=== PATIENT | male | born 1965 | race Caucasian/White ===

== ENCOUNTER → 2017-05-22 09:50 | Outpatient (CLI) | payer OTHER, SELFPAY ==
--- NOTE | 2017-05-22 09:53 | RAD_ITS ---
PROCEDURE: Fluoroscopic guided right shoulder injection. DATE: May 22, 2017. INDICATION: Male, 51 years old. Chronic shoulder pain. PHYSICIAN: Daniel Torres M.D. MEDICATIONS: 12 mg of betamethasone and 3 cc of 1% lidocaine. 2% Lidocaine administered subcutaneously for local anesthesia. ACCESS SITE: Right shoulder. NEEDLE: 22-gauge spinal needle. FLUOROSCOPY TIME (if supplied): (49 seconds) minutes/seconds FINDINGS: The risks, benefits, and alternatives to the procedure were explained to the patient. The specific risks of bleeding, infection, and neurovascular injury were detailed and accepted. Witnessed informed consent was obtained. A 22-gauge spinal needle was positioned under radiographic fluoroscopic localization. Approximately 2 cc of Isovue-300 instilled for localization purposes. Medication was then injected. The patient tolerated the procedure well without any immediate complications. The patient was placed supine with head elevated and returned to the floor in stable condition. RAD/Inj/Asp [place] Jt Should/Hip/Knee IMPRESSION: 1. Successful fluoroscopic guided right shoulder injection. Electronically Signed: Daniel Torres MD at 11:15 EST Tel [phone], Service support ,
--- NOTE | 2017-05-22 10:07 | RAD_ITS ---
PROCEDURE: Fluoroscopic guided left shoulder Injection DATE: May 22, 2017. INDICATION: Male, 51 years old. Chronic shoulder pain. Prior rotator cuff surgery. PHYSICIAN: Daniel Torres M.D. MEDICATIONS: 12 mg of betamethasone and 3 cc of 1% lidocaine. 2% Lidocaine administered subcutaneously for local anesthesia. ACCESS SITE: Left shoulder. NEEDLE: 22-gauge spinal needle. FLUOROSCOPY TIME (if supplied): (52 seconds) minutes/seconds FINDINGS: The risks, benefits, and alternatives to the procedure were explained to the patient. The specific risks of bleeding, infection, and neurovascular injury were detailed and accepted. Witnessed informed consent was obtained. A 22-gauge spinal needle was positioned under radiographic fluoroscopic localization. Approximately 2 cc of Isovue-300 instilled for localization purposes. Medication was then injected. The patient tolerated the procedure well without any immediate complications. The patient was placed supine with head elevated and returned to the floor in stable condition. RAD/Inj/Asp Edenilson Jt Should/Hip/Knee IMPRESSION: 1. Successful fluoroscopic guided left shoulder injection. Electronically Signed: Daniel Torres MD at 11:17 EST Tel [phone], Service support ,
== END ==
PROVIDERS: Family Provider Family Medicine; PCP Family Medicine; Visit Provider Specialist
DX: M19.011 Primary osteoarthritis, right shoulder (principal); M19.012 Primary osteoarthritis, left shoulder
CPT/HCPCS: 20610; 77002; Q9967; J0702

== ENCOUNTER → 2017-06-26 14:03 | Outpatient (CLI) | payer OTHER, SELFPAY ==
[2017-06-26 15:22] LABS: Hematocrit 43.4 % (40-54); Hemoglobin 13.9 g/dl (13.0-16.5); Mean Corpuscular Hgb 28.7 pg (27.0-32.0); Mean Corpuscular Volume 89.7 fL (80-94); Mean Platelet Vol. 10.6 fl (6.2-12.0); Platelet Count 232 K/mm3 (150-450); RBC Distribution Width CV 14.3 % (11.6-14.6); Red Blood Count 4.84 M/mm3 (4.6-6.2); White Blood Count 6.4 K/mm3 (4.4-11.0)
[2017-06-26 15:28] LABS: Scan Indicated on CBC? Y/N NO
[2017-06-26 15:52] LABS: Anion Gap 6 (5-15); BUN 18 mg/dL (7-18); BUN/Creat Ratio 17.6 RATIO (10-20); Calcium,Total 8.9 mg/dL (8.5-10.1); Chloride 102 mmol/L (98-107); Creatinine, Serum 1.02 mg/dL (0.70-1.30); EST Glomerular Filtration Rate 82 mL/min (>60); Est Glom Filt Rate - Afr Amer 99 mL/min (>60); Glucose 92 mg/dL (74-106); Potassium 4.2 mmol/L (3.5-5.1); Sodium Level 139 mmol/L (136-145)
== END ==
PROVIDERS: Family Provider Family Medicine; PCP Family Medicine; Visit Provider Orthopaedic Surgery
DX: Z01.818 Encounter for other preprocedural examination (principal)
CPT/HCPCS: 36415; 80048; 85027

== ENCOUNTER → 2017-08-14 12:42 | Outpatient (CLI) | payer OTHER, SELFPAY ==
[2017-08-14 14:17] LABS: Absolute Lymphocyte Count 2.38 X10^3/ul (0.83-4.51); Absolute Neutrophil Count 4.1 X10^3/uL (2.0-7.7); Basophil# 0.04 X10^3/uL; Basophil% 0.6 % (0-1); Eosinophil# 0.12 X10^3/uL; Eosinophils% 1.7 % (0-5); Hematocrit 45.1 % (40-54); Hemoglobin 14.7 g/dl (13.0-16.5); Lymphocyte # 2.38 X10^3/ul (4.0); Lymphocyte % 33.9 % (19-41); Mean Corp Hgb Conc 32.6 g/gl (32-36); Mean Corpuscular Hgb 29.6 pg (27.0-32.0); Mean Corpuscular Volume 90.7 fL (80-94); Mean Platelet Vol. 10.8 fl (6.2-12.0); Monocyte# 0.33 X10^3/uL; Monocyte% 4.7 % (0-10); Neutrophil # 4.12 X10^3/uL (2.7-7.7); Neutrophil % 58.7 % (47-70); Platelet Count 223 K/mm3 (150-450); RBC Distribution Width CV 13.7 % (11.6-14.6); RBC Distribution Width SD 45.3 fl (35.1-43.9); Red Blood Count 4.97 M/mm3 (4.6-6.2)
[2017-08-14 14:26] LABS: POSITIVE COUNT NO; POSITIVE DIFFERENTIAL NO; POSITIVE MORPHOLOGY NO
[2017-08-14 14:59] LABS: Valproic Acid (Depakene) Level 41 ug/mL (50-100)
[2017-08-14 15:00] LABS: ALB/GLOB Ratio 1.3 RATIO (0.9-2.4); AST(SGOT) 24 U/L (15-37); Alanine Aminotransfer ALT/SGPT 37 U/L (16-61); Albumin, Serum 4.1 g/dL (3.2-5.0); Alkaline Phosphatase 75 U/L (45-117); Anion Gap 11 (5-15); BUN 18 mg/dL (7-18); BUN/Creat Ratio 18.3 RATIO (10-20); Calcium,Total 8.7 mg/dL (8.5-10.1); Chloride 101 mmol/L (98-107); Creatinine, Serum 0.99 mg/dL (0.70-1.30); EST Glomerular Filtration Rate 85 mL/min (>60); Est Glom Filt Rate - Afr Amer 103 mL/min (>60); Globulin 3.1 g/dL (2.2-4.2); Glucose 116 mg/dL (74-106); Potassium 3.7 mmol/L (3.5-5.1); Protein, Total 7.2 g/dL (6.4-8.2); Sodium Level 140 mmol/L (136-145)
== END ==
PROVIDERS: Family Provider Family Medicine; PCP Family Medicine; Visit Provider Psychiatry & Neurology Psychiatry
DX: Z79.899 Other long term (current) drug therapy (principal)
CPT/HCPCS: 36415; 80053; 80164; 85025

== ENCOUNTER → 2017-10-14 11:24 | Outpatient (CLI) | payer OTHER, SELFPAY ==
[2017-10-14 11:52] LABS: Basophil# 0.03 X10^3/uL; Basophil% 0.5 % (0-1); Eosinophil# 0.16 X10^3/uL; Eosinophils% 2.6 % (0-5); Hematocrit 46.1 % (40-54); Hemoglobin 14.7 g/dl (13.0-16.5); Lymphocyte % 38.8 % (19-41); Mean Corp Hgb Conc 31.9 g/gl (32-36); Mean Corpuscular Volume 90.9 fL (80-94); Mean Platelet Vol. 10.5 fl (6.2-12.0); Monocyte# 0.55 X10^3/uL; Monocyte% 8.9 % (0-10); Neutrophil # 3.03 X10^3/uL (2.7-7.7); Neutrophil % 48.9 % (47-70); POSITIVE COUNT NO; POSITIVE DIFFERENTIAL NO; POSITIVE MORPHOLOGY NO; Platelet Count 224 K/mm3 (150-450); RBC Distribution Width CV 13.6 % (11.6-14.6); RBC Distribution Width SD 44.9 fl (35.1-43.9); Red Blood Count 5.07 M/mm3 (4.6-6.2); White Blood Count 6.2 K/mm3 (4.4-11.0)
[2017-10-14 12:21] LABS: Valproic Acid (Depakene) Level 72 ug/mL (50-100)
[2017-10-14 12:25] LABS: ALB/GLOB Ratio 1.4 RATIO (0.9-2.4); AST(SGOT) 33 U/L (15-37); Alanine Aminotransfer ALT/SGPT 40 U/L (16-61); Albumin, Serum 4.2 g/dL (3.2-5.0); Alkaline Phosphatase 63 U/L (45-117); Anion Gap 9 (5-15); BUN 19 mg/dL (7-18); BUN/Creat Ratio 16.7 RATIO (10-20); Calcium,Total 8.8 mg/dL (8.5-10.1); Chloride 103 mmol/L (98-107); Creatinine, Serum 1.14 mg/dL (0.70-1.30); EST Glomerular Filtration Rate 72 mL/min (>60); Est Glom Filt Rate - Afr Amer 87 mL/min (>60); Globulin 3.1 g/dL (2.2-4.2); Glucose 104 mg/dL (74-106); Potassium 4.5 mmol/L (3.5-5.1); Protein, Total 7.3 g/dL (6.4-8.2); Sodium Level 142 mmol/L (136-145)
== END ==
PROVIDERS: Family Provider Family Medicine; PCP Family Medicine; Visit Provider Psychiatry & Neurology Psychiatry
DX: Z79.899 Other long term (current) drug therapy (principal)
CPT/HCPCS: 36415; 80053; 80164; 85025

== ENCOUNTER → 2017-12-21 12:29 | Outpatient (CLI) | payer OTHER, SELFPAY ==
[2017-12-21 12:53] LABS: Absolute Lymphocyte Count 2.02 X10^3/ul (0.83-4.51); Absolute Neutrophil Count 2.1 X10^3/uL (2.0-7.7); Basophil# 0.04 X10^3/uL; Basophil% 0.8 % (0-1); Eosinophil# 0.07 X10^3/uL; Eosinophils% 1.5 % (0-5); Hematocrit 44.7 % (40-54); Hemoglobin 14.6 g/dl (13.0-16.5); Lymphocyte # 2.02 X10^3/ul (4.0); Lymphocyte % 42.8 % (19-41); Mean Corp Hgb Conc 32.7 g/gl (32-36); Mean Corpuscular Hgb 29.8 pg (27.0-32.0); Mean Corpuscular Volume 91.2 fL (80-94); Mean Platelet Vol. 10.6 fl (6.2-12.0); Monocyte# 0.46 X10^3/uL; Monocyte% 9.7 % (0-10); Neutrophil # 2.12 X10^3/uL (2.7-7.7); Platelet Count 202 K/mm3 (150-450); RBC Distribution Width CV 13.6 % (11.6-14.6); RBC Distribution Width SD 45.2 fl (35.1-43.9); White Blood Count 4.7 K/mm3 (4.4-11.0)
[2017-12-21 12:54] LABS: POSITIVE COUNT NO; POSITIVE DIFFERENTIAL NO; POSITIVE MORPHOLOGY NO
[2017-12-21 13:33] LABS: ALB/GLOB Ratio 1.4 RATIO (0.9-2.4); AST(SGOT) 36 U/L (15-37); Alanine Aminotransfer ALT/SGPT 44 U/L (16-61); Albumin, Serum 4.2 g/dL (3.2-5.0); Alkaline Phosphatase 51 U/L (45-117); Anion Gap 7 (5-15); BUN 19 mg/dL (7-18); BUN/Creat Ratio 16.8 RATIO (10-20); Chloride 105 mmol/L (98-107); Creatinine, Serum 1.13 mg/dL (0.70-1.30); EST Glomerular Filtration Rate 72 mL/min (>60); Est Glom Filt Rate - Afr Amer 88 mL/min (>60); Glucose 96 mg/dL (74-106); Microalbumin:Creatinine Ratio 43.1 mg/g CRE (<30 mg/g CRE); Potassium 4.7 mmol/L (3.5-5.1); Protein, Total 7.2 g/dL (6.4-8.2); Sodium Level 141 mmol/L (136-145)
== END ==
PROVIDERS: Family Provider Family Medicine; PCP Family Medicine; Visit Provider Family Medicine
DX: M25.50 Pain in unspecified joint (principal); F31.9 Bipolar disorder, unspecified
CPT/HCPCS: 36415; 80053; 82043; 82570; 85025

== ENCOUNTER 2018-02-19 12:00 | Outpatient (RCR) | payer OTHER, SELFPAY ==
--- NOTE | 2018-01-13 15:52 | HP.PTEVAL_ITS ---
Patient's Visit Information MELIZA KELLEY is a 52 year old M referred to Physical Therapy by Jj Eason with a diagnosis of spondylolisthesis, polyarthritis. Date of Evaluation: 01/13/18 Physical Therapist: Jj Portillo DPT, OC - Visit Plan Frequency: 2x /Week Duration: 4-6 Weeks Plan: 2xweek for 4 weeks for water ex for... 1. stretch pecs, LB ROM, HS, quads , ITB and gastroc. 2. Strengthen LE and posture and core. 3. Progress to CV and I water program as tolerated. - Subjective Subjective: [facility] doesn't take his insurance. Sees Jj Eason and in talking about his problems has suggest Aquatic therapy. H/o L JERRELL in January, L RCR in 05/2016. Arthroscopic surgery L shoulder April of this year and it needs replaced. But he is too young. Can't lift L arm over 90 degrees due to pain. Feels popping pain in L shoulder for no apparent reason. L hip hurts with walking longer distances. Walking back to PT room hurts. Has OA in R hip and shoulder also but not bad and not dysfunctional. Sleep: not good, on gabapentin for RLS. Better sleeping on gabapentin. Feels R knee wakes him up at night with pain. On disability due to these injuries. Hobbies: not much of anything for a year due to pain/mental issues, on mental disability. Used to enjoy photography and woodworking. Started riding ex bike. Basic ADLs are OK. - Pain L hip Pain Intensity (Out of 10): 0 Pain Intensity Range: 0, 2 L shoulder Pain Intensity (Out of 10): 4 Pain Intensity Range: 4, 6 - Objective Walks very stiff adn slow with little spinal movment butI. Trasnfers I. Tightness exists in B HS, ITb and quads/hip flexors. Strength in LE is 4/5 without myotomal problems. LB AROM is full in flexion , limited to just past neutral in ext adn centrally painful and mod limtied in B SB. C/S aROM 50 B rot , 40 ext. UE AROM R WNL and strength at 4+/5, ext rotation limited to 35 degrees. L side ext rotation to 20 and 80 elevation limited by stiffness and pain, passive ROM to 90. UE strength 4/5 without excessive pain in neutral position, flex and abd 4- and painful in L shoulder. reflexes 2/3 bi and tri and achilles, and 1/3 B patella. B LE swollen, pt says he ate salty meal yesterday and this is not normal, recommeneded he check with doctor if it continues. - Balance Scores Functional Gait Assessment Score: 27 % Disability: 10.0000 - Goals Goal 1:: I apporp HEP to minimize future pain in water. Goal Time Frame: 4-6 Weeks Goal 2:: Pt feel pain is 50% improved adn 3/10 at worst in shoulder and 0/10 with walking through clinic in L hip Goal Time Frame: 4-6 Weeks Goal 3:: Steps without feeling pain in LE Goal Time Frame: 4-6 Weeks - Rehabilitation Potential Physical Therapy Diagnosis: Poly arhtritis Rehabilitation Potential: Questionable - Anticipated Interventions Patient/Client Instruction: Educate patient on: Condition, Plan of Care For the Purpose of:: To decrease pain Therapeutic Exercise to Include: Strength training, Flexibilty training, In an aquatic setting, Dynamic Lumbar Stabilization For the Purpose of:: To decrease pain, To improve nutrient delivery to tissue, To increase tolerance to activity/condition/position, To improve ability of physical actions for home/community/work/leisure Thank you for the opportunity to evaluate your patient. For Medicare and Medicare HMO plans, please review the plan of care and approve it. It will need to be FAXED BACK to us at [phone] for Medicare purposes. Please let me know if there are questions or concerns regarding this plan of care. Physician Signature: Date:
--- NOTE | 2018-02-19 12:33 | HP.PTDCSUM_ITS ---
HP - PT D/C Summary It has been my pleasure to treat MELIZA KELLEY under orders from Jj Gonzales, for the diagnosis of spondylolisthesis, polyarthritis for a total of 8 visit(s). Discharge Date: 02/19/18 Please see the following information for a summary of their discharge status. - Subjective Subjective: I like the water It helped with swelling in legs. Helped him realize how out of shape he was. Improving. [place] more limber. Still a lot of pain problems. L shoulder still hurts alot. R shoulder and hip get worse. Exercisees have helped those though. Has HEP for home but not doing them regularly. Knees still hurt. Putting on sock can be challenging but not daily. Dr. gonzales without new news. Will find new orthopedic as Dr. Pedraza is not covered. Not joined a pool yet but could continue on own. - Pain L hip Pain Intensity (Out of 10): 7 L shoulder Pain Intensity (Out of 10): 7 Lumbar Spine Pain Intensity (Out of 10): 8 Cerv. Spine Pain Intensity (Out of 10): 7 R knee Pain Intensity (Out of 10): 7 - Overall Improvement % Improvement: 30 - Objective Objective/Function: Not much change in function or ROM/movment from initial eval. - Goals Goal 1:: I apporp HEP to minimize future pain in water. Goal Progress: Goal Met Goal 2:: Pt feel pain is 50% improved adn 3/10 at worst in shoulder and 0/10 with walking through clinic in L hip Goal Progress: Progressing Goal 3:: Steps without feeling pain in LE Goal Progress: Not Progressing - Plan Plan: D/C to pool ex I at [facility] pool. - D/C Information Discharge Comments: pt ready to be in pool I. If there are questions or concerns regarding this patient's physical therapy, please feel free to call me at [phone]. Thank you for the referral of this patient. Sincerely, Jj Portillo, DPT, OC
== END 2018-02-19 19:00 | disposition home or self-care (01) ==
LOC: PT 12:00
PROVIDERS: Family Provider Family Medicine; PCP Family Medicine; Visit Provider Family Medicine
DX: M43.10 Spondylolisthesis, site unspecified (principal); M19.90 Unspecified osteoarthritis, unspecified site
CPT/HCPCS: 97113; 97162; 97164

== ENCOUNTER → 2018-03-04 07:36 | Outpatient (CLI) | payer OTHER, SELFPAY ==
--- NOTE | 2018-03-04 12:52 | PFT ---
INTRODUCTION: The patient is a 52-year-old male that presents for pulmonary function testing secondary to a diagnosis of bronchospasm. Respiratory therapy reports good patient effort. Bronchodilators were used during testing. INTERPRETATION: Forced expiration spirometry mistreats no evidence of a large airways obstructive ventilatory defect. There was no significant response to aerosolized bronchodilators. Spirograms are of good quality and plateau normally. The respiratory flow volume loop appears normal. Body plethysmography was performed and reveals lung volumes to be within normal limits. Diffusing capacity by single breath CO is within normal limits at 96% of predicted. IMPRESSION: Normal pulmonary function studies.
--- NOTE | 2018-03-04 12:54 | PFT ---
INTRODUCTION: The patient is a 65-year-old female that presents for spirometry testing secondary to a diagnosis of shortness of breath. Respiratory therapy reports good patient effort. Bronchodilators were used during testing. INTERPRETATION: Forced expiration spirometry demonstrates no evidence of a large airways obstructive ventilatory defect. There was no clinical response to aerosolized bronchodilators. IMPRESSION: Grossly normal spirometry testing.
== END ==
PROVIDERS: Family Provider Family Medicine; PCP Family Medicine; Referring Provider Family Medicine; Visit Provider Family Medicine
DX: J98.01 Acute bronchospasm (principal)
CPT/HCPCS: 94060; 94726; 94729

== ENCOUNTER → 2018-06-30 15:05 | Outpatient (CLI) | payer OTHER, SELFPAY ==
[2018-04-13 15:19] VITALS: BMI 47.3
[2018-06-30 17:32] LABS: Absolute Lymphocyte Count 2.29 X10^3/ul (0.83-4.51); Absolute Neutrophil Count 2.7 X10^3/uL (2.0-7.7); Basophil# 0.04 X10^3/uL; Basophil% 0.7 % (0-1); Eosinophil# 0.12 X10^3/uL; Eosinophils% 2.1 % (0-5); Hematocrit 46.9 % (40-54); Hemoglobin 14.6 g/dl (13.0-16.5); Lymphocyte # 2.29 X10^3/ul (4.0); Lymphocyte % 40.8 % (19-41); Mean Corp Hgb Conc 31.1 g/gl (32-36); Mean Corpuscular Hgb 29.1 pg (27.0-32.0); Mean Corpuscular Volume 93.6 fL (80-94); Mean Platelet Vol. 11.1 fl (6.2-12.0); Monocyte# 0.42 X10^3/uL; Monocyte% 7.5 % (0-10); Neutrophil # 2.72 X10^3/uL (2.7-7.7); Neutrophil % 48.5 % (47-70); Platelet Count 243 K/mm3 (150-450); RBC Distribution Width CV 13.7 % (11.6-14.6); RBC Distribution Width SD 46.6 fl (35.1-43.9); Red Blood Count 5.01 M/mm3 (4.6-6.2); White Blood Count 5.6 K/mm3 (4.4-11.0)
[2018-06-30 17:36] LABS: POSITIVE COUNT NO; POSITIVE DIFFERENTIAL NO; POSITIVE MORPHOLOGY NO
[2018-06-30 17:50] LABS: ALB/GLOB Ratio 1.3 RATIO (0.9-2.4); AST(SGOT) 54 U/L (15-37); Alanine Aminotransfer ALT/SGPT 40 U/L (16-61); Alkaline Phosphatase 65 U/L (45-117); Anion Gap 8 (5-15); BUN 13 mg/dL (7-18); BUN/Creat Ratio 14.3 RATIO (10-20); Calcium,Total 8.5 mg/dL (8.5-10.1); Chloride 103 mmol/L (98-107); Creatinine, Serum 0.91 mg/dL (0.70-1.30); EST Glomerular Filtration Rate 93 mL/min (>60); Est Glom Filt Rate - Afr Amer 112 mL/min (>60); Glucose 93 mg/dL (74-106); Potassium 4.3 mmol/L (3.5-5.1); Sodium Level 140 mmol/L (136-145); Thyroid Stim Hormone (TSH) 1.63 uIU/mL (0.358-3.74)
== END ==
PROVIDERS: Family Provider Family Medicine; PCP Family Medicine; Referring Provider Family Medicine; Visit Provider Family Medicine
DX: L29.9 Pruritus, unspecified (principal)
CPT/HCPCS: 36415; 80053; 82140; 84443; 85025

== ENCOUNTER 2018-08-25 11:30 | Outpatient (RCR) | payer OTHER, SELFPAY ==
[2018-04-13 15:19] VITALS: BMI 47.3
--- NOTE | 2018-08-03 14:29 | HP.PTEVAL_ITS ---
Patient's Visit Information MELIZA KELLEY is a 53 year old M referred to Physical Therapy by Jj Eason MD with a diagnosis of Left Shoulder. Date of Evaluation: 08/03/18 Physical Therapist: Juliette Avilez DPT - Visit Plan Frequency: 2x /Week Duration: 4 Weeks Plan: Focus on ROM and scapular s/s of the left shoulder - Subjective Findings: Left Shoulder- had RTC repair May [address] Pedraza-June [address] Hernández and told him that the expected results were variable an you hope and pray it lasts. Then he was looking at a total shoulder replacement. 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 Has had a hip replacement Jan [address] Stallworth. Over the past 10 years he has been having problems with the shoulder with varying degrees. After surgery RTC repair the shoulder was doing great- 4 months after he partially helped unload hayand it went down hill from there. Now can't lift his hand over 90 degrees. Has an apt with Dr. Obrien in 2 weeks 08/17/18. At this point the pain comes and goes but his function is diminished. Lots of popping, clicking and crutching. Worst: 10/10 Agg: unsure what will set it off. Eases: stop doing anything Best: 0/10. Pain in the shoulder is whole shoulder- radiates down to the little finger but not to the thumb. Has neck issues so he would not say its associate it. Reports mild dizziness- is putting off seeing a Neruologist- has shaking hands. No increase in BRADSHAW or blurred vision. Right hand dominate. 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 Is not currently working. Sleep: disturbed- switches sides and then it goes away when he switches sides. PMHx: shoulder surgeries on the left, hip THR, Bradshaw for 30 years, DDD in the spine, spondylosis, HTN. Meds: Wellbutrin, Hydrocholorthizide, Protonix, Metroprolol, Benazipro, Naproxen, Lomectal, Lodipine, Depicote. Has not had an x-ray of the shoulder - Objective Posture:FH, RS, increased kyphosis- does correct with verbal and tactile cues- does not maintain. Gait: good arm swing and trunk rotation. Palpation: tender along upper trap and into the bicpital groove and tip of the acromion. ROM: AROM: flexion: 130 degrees abd: 90 degrees, IR: to pocket, ER: 20 degrees, PROM: flexion: 160 degrees, Abd: 180 degrees, IR: to belt, ER: 50 degrees. Strength isometrics: 4+/5 throughout, Elbow: 5/5, Building Construction Teacher: WNL Scap: fair minus. Empty can: positive, Belly lift off: negative, Impingment: positive - Goals Goal 1:: Patient will be I with HEP and progression Goal Time Frame: 4-6 Weeks Goal 2:: Patient will maintain proper posture t/o tx session to demo increased scap s/s Goal 3:: Patient will demo full AROM of left shoulder Goal Time Frame: 4-6 Weeks - Rehabilitation Potential Physical Therapy Diagnosis: Patient presents with hypomobility- he has decreased ROM, strength and muscular endurance leading to poor posture and increased pain with ADL's. Rehabilitation Potential: Fair - Anticipated Interventions Patient/Client Instruction: Educate patient on: Benefits of Fitness Program Therapeutic Exercise to Include: Strength training, Endurance training, Body mechanics, Postural training, Passive ROM, Active ROM, Scapular Strength/Stabilization For the Purpose of:: To improve muscle performance and motor function TENS: Yes Cryotherapy (ice pack, ice massage): Yes Thermo therapy (hot pack): Yes Ultrasound (thermal/non thermal): Yes Thank you for the opportunity to evaluate your patient. For Medicare and Medicare HMO plans, please review the plan of care and approve it. It will need to be FAXED BACK to us at [phone] for Medicare purposes. For Medicare only, by signing this I certify the plan of care. Please let me know if there are questions or concerns regarding this plan of care. Physician Signature: Date:
--- NOTE | 2019-01-04 11:43 | HP.PT.NRP ---
HP - Discharge Summary (1) - Patient Information MELIZA KELLEY was seen in my office for initial evaluation on 08/03/18. The following Plan of Care was established for this patient: Initial Frequency: 2x /Week Initial Duration: 4 Weeks - Anticipated Interventions Patient/Client Instruction: Educate patient on: Benefits of Fitness Program Therapeutic Exercise to Include: Strength training, Endurance training, Body mechanics, Postural training, Passive ROM, Active ROM, Scapular Strength/Stabilization For the Purpose of:: To improve muscle performance and motor function TENS: Yes Cryotherapy (ice pack, ice massage): Yes Thermo therapy (hot pack): Yes Ultrasound (thermal/non thermal): Yes This patient was last seen in our office . Pertinent comments regarding their Physical therapy will appear below: Patient has not attended physical therapy in over 4 weeks- it is appropriate to d/c at this time and return to MD for further evaluation as neede At this point I will be discontinuing this patient from physical therapy. I would be happy to see this patient again in the future if found appropriate by the physician. Thank you! Juliette Avilez DPT
== END 2018-08-25 19:00 | disposition home or self-care (01) ==
LOC: PT 11:30
PROVIDERS: Family Provider Family Medicine; PCP Family Medicine; Referring Provider Family Medicine; Visit Provider Family Medicine
DX: M25.512 Pain in left shoulder (principal); Z98.890 Other specified postprocedural states
CPT/HCPCS: 97110; 97161

== ENCOUNTER → 2018-08-31 | Outpatient (CLI) | payer OTHER, SELFPAY ==
[2018-08-19 13:30] VITALS: BMI 49.5
--- NOTE | 2018-08-31 15:32 | RAD_ITS ---
STUDY: X-RAY - LEFT SHOULDER REASON FOR EXAM: Pain. TECHNIQUE: 4 view(s) of the shoulder. COMPARISON: None. FINDINGS: There are marginal osteophytes of the humeral head and mild joint space narrowing of the glenohumeral articulation. Status post excision of the distal clavicle. There is an anchor in the humeral head. The soft tissue structures are unremarkable. Normal visualized pulmonary apex. RAD/Shoulder min 2 Views IMPRESSION: Glenohumeral arthrosis. Postoperative changes. Electronically Signed: Eduardo Alegria MD at 13:55 EDT Tel , Service support ,
--- NOTE | 2018-08-31 15:39 | RAD_ITS ---
STUDY: X-RAY - CERVICAL SPINE REASON FOR EXAM: Male, 53 years old. Chronic pain. TECHNIQUE: 5 view(s) of the cervical spine were obtained including oblique views. COMPARISON: None FINDINGS: Normal anterior atlantoaxial articulation. Normal odontoid process. There is straightening of the normal cervical lordosis. There is multi-level endplate spondylosis. There is multi-level degenerative disc disease with multilevel disc space narrowing. Narrowing of the intervertebral foramen at C5-C6 and C6-C7 levels. Calcification of the posterior nuchal ligament. RAD/Cerv Spine 4 or 5 Views IMPRESSION: Multilevel disc space narrowing in the spondylosis with no neural foraminal stenosis at the C5-C6 and C6-C7 levels. Electronically Signed: Daniel Torres, at 14:38 EDT , Service support ,
== END | disposition home or self-care (01) ==
PROVIDERS: Family Provider Family Medicine; PCP Family Medicine; Referring Provider Orthopaedic Surgery; Visit Provider Orthopaedic Surgery
DX: M54.9 Dorsalgia, unspecified (principal); M25.512 Pain in left shoulder
CPT/HCPCS: 72050; 73030

== ENCOUNTER → 2018-09-10 | Outpatient (CLI) | payer OTHER, SELFPAY ==
[2018-08-19 13:30] VITALS: BMI 49.5
--- NOTE | 2018-09-10 10:28 | RAD_ITS ---
STUDY: X-RAY - RIGHT KNEE REASON FOR EXAM: Bilateral knee pain. TECHNIQUE: 4 view(s) of the knee. COMPARISON: None. FINDINGS: Normal visualized distal femur. There is an enthesophyte at the anterior tibial tubercle. Normal proximal tibiofibular articulation. There are marginal osteophytes and severe joint space narrowing of the medial femorotibial compartment. There are small marginal osteophytes without joint space narrowing of the lateral femorotibial compartment. There are marginal osteophytes with moderate to severe joint space narrowing of the patellofemoral articulation. There is patellar enthesopathy. RAD/Knee 4 or More Views IMPRESSION: Arthrosis of the medial femorotibial and patellofemoral compartments. Electronically Signed: Eduardo Alegria MD at 11:49 EDT Tel , Service support ,
--- NOTE | 2018-09-10 10:28 | RAD_ITS ---
STUDY: X-RAY - LEFT KNEE REASON FOR EXAM: Bilateral knee pain. TECHNIQUE: 4 view(s) of the knee. COMPARISON: None. FINDINGS: Normal visualized distal femur. Normal visualized proximal tibia and fibula. Normal proximal tibiofibular articulation. There are marginal osteophytes and moderate joint space narrowing of the medial femorotibial compartment. Normal lateral femorotibial compartment. There are marginal osteophytes and moderate joint space narrowing of the patellofemoral articulation. There is patellar enthesopathy. RAD/Knee 4 or More Views IMPRESSION: Arthrosis of the medial femorotibial and patellofemoral compartments. Electronically Signed: Eduardo Alegria MD at 11:49 EDT Tel , Service support ,
== END | disposition home or self-care (01) ==
LOC: HPRAD 10:27
PROVIDERS: Family Provider Family Medicine; PCP Family Medicine; Referring Provider Orthopaedic Surgery; Visit Provider Orthopaedic Surgery
DX: M25.561 Pain in right knee (principal); M25.562 Pain in left knee
CPT/HCPCS: 73564

== ENCOUNTER → 2018-10-30 | Outpatient (CLI) | payer OTHER, SELFPAY ==
[2018-10-26 10:15] VITALS: BMI 49.5
--- NOTE | 2018-10-30 07:31 | MRI_ITS ---
STUDY: MRI LEFT SHOULDER REASON FOR EXAM: Male, 53 years old. Decreased range of motion. Prior surgery. TECHNIQUE: Standardized fat and water weighted pulse sequences were obtained in all 3 orthogonal planes. COMPARISON: X-ray August 31, 2018. FINDINGS: Normal supraspinatus tendon. There is infraspinatus tendinosis with tendon attrition, but without a demonstrated infraspinatus tendon tear. Normal subscapularis tendon. Normal teres minor tendon. Normal supraspinatus muscle. Normal infraspinatus muscle. Normal subscapularis muscle. Normal teres minor muscle. There is moderate osteoarthritis of the glenohumeral articulation. There is a small volume joint effusion of the glenohumeral joint. There is susceptibility artifact associated with postoperative change at the humeral head . There is tear or tenodesis at the biceps labral complex. There is attenuation of the proximal intracapsular long biceps tendon. Normal labrum. Normal capsulo- ligamentous complex. Normal rotator interval. There is postoperative change with resection at the acromioclavicular articulation. There is a Type IV morphology (inferior convex) acromion, with a posterior downsloping orientation. There is no subacromial-subdeltoid bursal fluid. Normal visualized coracohumeral and coracoacromial ligaments. Normal quadrilateral space. Normal axillary space. Normal deltoid muscle. Normal trapezius muscle. MRI/Upper Ext Joint Only(Routine) IMPRESSION: Postoperative change. No rotator cuff tear. Biceps tenodesis or tear. Glenohumeral arthrosis. Electronically Signed: Jagdeep Guzman MD at 9:40 EDT , Service support ,
== END | disposition home or self-care (01) ==
LOC: MRI 07:08
PROVIDERS: Family Provider Family Medicine; PCP Family Medicine; Referring Provider Orthopaedic Surgery; Visit Provider Orthopaedic Surgery
DX: M75.102 Unspecified rotator cuff tear or rupture of left shoulder, not specified as traumatic (principal)
CPT/HCPCS: 73221

== ENCOUNTER → 2018-11-01 | Outpatient (CLI) | payer OTHER, SELFPAY ==
[2018-04-13 15:19] VITALS: BMI 47.3
[2018-10-26 10:15] VITALS: BMI 49.5
--- NOTE | 2018-11-01 14:26 | ECHOCS_ITS ---
Procedure This was a 2D Doppler, Color Flow transthoracic echocardiogram. The study was technically difficult. Due to body habitus. Contrast injection was performed. Left Ventricle Normal LV size. Moderate concentric left ventricular hypertrophy. Left ventricular systolic function is normal. The estimated ejection fraction is 55 %. No regional wall motion abnormalities noted. Right Ventricle Normal RV size. Normal systolic function. Atria Normal left atrium. Normal right atrium. Mitral Valve Normal mitral valve. Tricuspid Valve Normal tricuspid valve. Aortic Valve The aortic valve is not well visualized. Pulmonic Valve The pulmonic valve is not well visualized. Great Vessels Normal aortic root. Pericardium/Pleural No pericardial effusion. Medication 22 gauge I.V. with prn adaptor inserted into right arm. Diluted definity 4.0ml given slow IV push to enhance endocardial definition. MMode/2D Measurements & Calculations LVIDd: 5.9 cm IVSd: 1.5 cm Ao root diam: 3.7 cm LVIDs: 4.3 cm LVPWd: 1.5 cm FS: 26.3 % LAV(MOD-bp): 61.2 ml EDV(MOD-sp4): 145.9 ml EDV(MOD-sp2): 94.6 ml LAV(MOD-bp) Indexed: 23.3 ml/m2 ESV(MOD-sp4): 73.1 ml EF(MOD-sp2): 53.0 % LAV(MOD-sp2): 54.7 ml EF(MOD-sp4): 49.9 % LAV(MOD-sp4): 69.7 ml SV(MOD-sp4): 72.8 ml SV(MOD-sp2): 50.2 ml LA A4 area: 23.1 cm2 LA dimension(2D): 3.9 cm RA A4 area: 16.8 cm2 Time Measurements MV dec time: 0.19 sec Doppler Measurements & Calculations MV E max seng: 69.3 cm/sec Lat Peak E' Seng: 8.3 cm/sec Med Peak E' Seng: 7.4 cm/sec MV A max seng: 82.2 cm/sec E/E' lat: 8.3 E/E' med: 9.4 MV E/A: 0.84 Ao V2 max: 135.4 cm/sec LV V1 max: 83.2 cm/sec PA V2 max: 100.9 cm/sec Ao max P.3 mmHg LV V1 max P.8 mmHg TR max seng: 172.4 cm/sec TR max P.9 mmHg Interpretation Summary Normal LV size. Left ventricular systolic function is normal. The estimated ejection fraction is 55 %. Moderate concentric left ventricular hypertrophy. Contrast injection was performed. Ordering Physician: Olivier Garcia Referring Physician: Hermilo Mendez
== END | disposition home or self-care (01) ==
LOC: CVS 14:25
PROVIDERS: Family Provider Family Medicine; PCP Family Medicine; Referring Provider Internal Medicine Cardiovascular Disease; Visit Provider Internal Medicine Cardiovascular Disease
DX: I42.9 Cardiomyopathy, unspecified (principal); I10 Essential (primary) hypertension; G47.33 Obstructive sleep apnea (adult) (pediatric)
CPT/HCPCS: 93306; Q9957; A4216; C8929

== ENCOUNTER 2018-12-08 12:30 | Outpatient (RCR) | payer MEDICARE, OTHER, SELFPAY ==
[2018-10-14 15:44] VITALS: BMI 49.5
[2018-10-26 10:15] VITALS: BMI 49.5
--- NOTE | 2018-10-26 14:08 | HP.PTEVAL ---
Patient's Visit Information MELIZA KELLEY is a 53 year old M referred to Physical Therapy by Jj Eason MD with a diagnosis of cervical DDD c56. Date of Evaluation: 10/26/18 Physical Therapist: Jj Portillo, DPT, OCS, CSCS - Visit Plan Frequency: 2-3x /Week Duration: 4-6 Weeks Plan: 2-3x/week for 4-6 weeks for. 1. Manual traction C/s, STM c/s. 2. c/s retractiona dn extension ROM and monitor effects on c/s rotation ROM and ext ROM. may need to progress to ret/ext. 3. cervical and postural strength. 4. ICT if manual traction helpful. Pt may benenefit in group home form general ex specifically in water due to multiple degenrative changes. - Subjective Findings: Limited mobility in neck with turning head, chronic BRADSHAW cannot pinpoint why. Has intermittent neck pain also for no reason. Pain is posterior at base of neck and sides. Daily iwthout reason although is worse with lifting. Has lived with pain enitre life. Neck has been hurting for a couple months insidiously. It has crunched for years. Living on Advil due to H and OA. None this am. Gets BRADSHAW frontal and occiptial withotu obvious reason. 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 Sleep is normal but has problems sleeping for years due to many factors including knee and shoulder pain. BRADSHAW and neck pain not keeping him up lately. At times gets tingly L arm medial forearm ocasionally but not lingering. Basic ADLs are pretty normal, just works thorugh pain. I am a couch potato but works in garden a little bit and fixing up garage to do woodworking. Trying to be more active visiting friends. Maybe worse last ouple months b/c he is doing more. Also is problematic at times just sitting in rocking chair. Not employed. On disability due to depression and prvate OA disabilities. Has occupational policies. EX, trying to ride ex bike more. 5-10 minutes. Has no ankle or foot pain. Doctor may want orthotics for back pain. - Pain BRADSHAW Pain Intensity (Out of 10): 7 neck pain. Pain Intensity (Out of 10): 3 Pain Intensity Range: 0, 8 Comment: 8/10 if moves wrong. - Objective B c/s rotation to 40 degreees limited by ipsilateral pain in neck and into head. 35 degree ext without increased pain. 15 degrees B side tilt with pain. L shoulder limited AROM to 110 felxion and 30 ext rotation and PSIS IR, R to 130 flexion and 30 ext rotation adn PSIS IR, all limited by pain and stifness, prom no better than active. Pes cavus B LE/feet. scap mobility limited B. Tender over c56 area in cervial area. reflexes bi and tri 2/3. Sensation UE WNL to gross light touch. Strength UE 3+ ext rotation, 4- flexiona dn abd, 5/5 elbows. repeated retraction seems to increase neck rotationa dn ext adn R shulder ROM in elevation. - c/s compressiont est. No change to neck pain or BRADSHAW today with movements - Goals Goal 1:: BRADSHAW abolished and neck pain 1/10 at worst and 70% improved. Goal Time Frame: 4-6 Weeks Goal 2:: Patient increase activitiy level by 50% Goal Time Frame: 4-6 Weeks Goal 3:: I approp HEP to limit future problems Goal Time Frame: 4-6 Weeks - Rehabilitation Potential Physical Therapy Diagnosis: degenerative changes in c/s, pes cavus Rehabilitation Potential: Fair - Anticipated Interventions Patient/Client Instruction: Educate patient on: Condition, Plan of Care For the Purpose of:: To decrease pain, To increase ROM, To improve gait and locomotor functions Therapeutic Exercise to Include: Strength training, Flexibilty training, Passive ROM, Active ROM For the Purpose of:: To decrease pain, To increase ROM, To improve nutrient delivery to tissue, To decrease level of supervision to perform tasks Manual Therapy Techniques to Include: Passive ROM, Soft tissue mobilization For the Purpose of:: To decrease pain, To increase ROM, To improve muscle performance and motor function Intermittent cervical traction: Yes For the Purpose of:: To decrease pain Thank you for the opportunity to evaluate your patient. For Medicare and Medicare HMO plans, please review the plan of care and approve it. It will need to be FAXED BACK to us at [phone] for Medicare purposes. For Medicare only, by signing this I certify the plan of care. Please let me know if there are questions or concerns regarding this plan of care. Physician Signature: Date:
--- NOTE | 2018-11-30 14:40 | HP.PTREVAL ---
Jj Eason MD, It has been my pleasure to treat MELIZA KELLEY over the last 5 visits for cervical DDD c56. Please see the progress note below for an update on the physical therapy plan of care! 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 Been doing looking down ex. Symptoms are improving but still up and down with motion. Still has to turn body in car to see. Pain at rest is 3/10 maybe 2/10. Gets up to 5/10 if doing minor activitiy like bending. Working in garage made him worse the next day due to being out of shape and it hurt the neck. BRADSHAW are constant and will never go away. No more naproxen adn upped ibuprofen. Objective/Function: 53 R rotation adn 58 L. Improving and pain is down today but up and down overall. Needs to be consistent with therapy and ex adn stronger and consistent to see if traction can be helpful. Recommend 2x/week for 2-4 more weeks to see if can work to HEP and continue traction . Plan Plan: 2x/week for 2-4 weeks...please work on upper half postural and neck isometrics and progress to home with pics. Do traction each visit and monitor ROM for need to progress HEP,. Progressing toward some goals and still appropriate with fair prognosis to help manage pain. Goals Goal 1:: BRADSHAW abolished and neck pain 1/10 at worst and 70% improved. Goal Time Frame: 4-6 Weeks Goal Progress: Not Progressing, inconsis Goal 2:: Patient increase activitiy level by 50% Goal Time Frame: 4-6 Weeks Goal Progress: Not Progressing Goal 3:: I approp HEP to limit future problems Goal Time Frame: 4-6 Weeks Goal Progress: Progressing,a ppropriate Goal 4:: Turn head in car vs whole body to see out windows. Goal Time Frame: 2-4 Weeks Goal Progress: NEW GOAL Anticipated Interventions Patient/Client Instruction: Educate patient on: Condition, Plan of Care For the Purpose of:: To decrease pain, To increase ROM, To improve gait and locomotor functions Therapeutic Exercise to Include: Strength training, Flexibilty training, Passive ROM, Active ROM For the Purpose of:: To decrease pain, To increase ROM, To improve nutrient delivery to tissue, To decrease level of supervision to perform tasks Manual Therapy Techniques to Include: Passive ROM, Soft tissue mobilization For the Purpose of:: To decrease pain, To increase ROM, To improve muscle performance and motor function Intermittent cervical traction: Yes For the Purpose of:: To decrease pain Please do not hesitate to contact me at [phone] by phone or if you have questions or concerns regarding this new plan of care! Sincerely, Jj Portillo, JOSET, OCS, CSCS
--- NOTE | 2019-02-02 13:56 | HP.PT.NRP ---
HP - Discharge Summary (1) - Patient Information MELIZA KELLEY was seen in my office for initial evaluation on 10/26/18. The following Plan of Care was established for this patient: Initial Frequency: 2-3x /Week Initial Duration: 4-6 Weeks - Anticipated Interventions Patient/Client Instruction: Educate patient on: Condition, Plan of Care For the Purpose of:: To decrease pain, To increase ROM, To improve gait and locomotor functions Therapeutic Exercise to Include: Strength training, Flexibilty training, Passive ROM, Active ROM For the Purpose of:: To decrease pain, To increase ROM, To improve nutrient delivery to tissue, To decrease level of supervision to perform tasks Manual Therapy Techniques to Include: Passive ROM, Soft tissue mobilization For the Purpose of:: To decrease pain, To increase ROM, To improve muscle performance and motor function Intermittent cervical traction: Yes For the Purpose of:: To decrease pain This patient was last seen in our office 12/08/18. Pertinent comments regarding their Physical therapy will appear below: Pt seen for 2 visits of shoulder ROM adn 8 visits of neck treatment including traction. Was in the middle of these plans of care when his insurance adn coppays changed. He called to cancel his vists because of these copays. I will disocntinue due to nonattendance. At this point I will be discontinuing this patient from physical therapy. I would be happy to see this patient again in the future if found appropriate by the physician. Thank you! Jj Portillo, DPT, OCS, CSCS
== END 2018-12-08 19:00 | disposition home or self-care (01) ==
LOC: PT 12:30
PROVIDERS: Family Provider Family Medicine; PCP Family Medicine; Referring Provider Family Medicine; Visit Provider Family Medicine
DX: M50.322 Other cervical disc degeneration at C5-C6 level (principal); M76.829 Posterior tibial tendinitis, unspecified leg; M19.012 Primary osteoarthritis, left shoulder
CPT/HCPCS: 97012; 97110; 97140; 97162; 97530

== ENCOUNTER 2019-03-09 13:25 | Outpatient (RCR) | payer MEDICARE, SELFPAY ==
[2019-03-03 10:41] VITALS: BMI 49.5
--- NOTE | 2019-03-15 17:48 | HP.OTFCE_ITS ---
HP OT Functional Capacity Eval - Task Lift Floor (Occasional 1-33% of Day): 45lb Floor (Frequent 34-66% of Day): 24lb Floor (Constant 67-100% of Day): 10lb Floor PDL: Light-Medium Knee (Occasional 1-33% of Day): 45lb Knee (Frequent 34-66% of Day): 24lb Knee (Constant 67-100% of Day): 10lb Knee PDL: Light-Medium Waist (Occasional 1-33% of Day): 45lb Waist (Frequent 34-66% of Day): 24lb Waist (Constant 67-100% of Day): 10lb Waist PDL: Light-Medium Shoulder (Occasional 1-33% of Day): 20lb Shoulder (Frequent 34-66% of Day): 10lb Shoulder (Constant 67-100% of Day): Negligible Shoulder PDL: Light Overhead (Occasional 1-33% of Day): Pt unable to complete, negligible Overhead (Frequent 34-66% of Day): Negligible Overhead (Constant 67-100% of Day): Negligible Overhead PDL: Sedentary - Work Activity/Posture Bending: Occasional Ability (1-33% of day) Squatting: Occasional Ability (1-33% of day) Kneeling: Occasional Ability (1-33% of day) Reaching out: Occasional Ability (1-33% of day) Reaching up: Occasional Ability (1-33% of day) Sitting: Constant Ability (67-100% of day) Walking: Occasional Ability (1-33% of day) Standing: Occasional Ability (1-33% of day) - Reference Duration Sedentary Sedentary Light Light Light Medium Medium Medium Heavy Very Heavy Heavy Occasional (0-33% of day) Frequent (34-66% of day) Constant (67-100% of day) 10 # Negligible Negligible 15 # 8 # Negligible 20 # 10# Negli. 35 # 18 # 7 # 50 # 25 # 10 # 75 # 100 # >100 # 38 # 50 # >50 # 15 # 20 # >20 # - Patient Information Height: 5 ft 10 in Weight:: 149.685 kg Hand Dominance: Right - Medical History Medical History Including Restrictions: Pt reports the following PMHx; HTN, HLD, RAY, Anxiety, Depression, L h/o rotator cuff sx 2017, L orthoscopic sx June 2017, hx L heart catheterization, hx L hip THR Jan 2017, obesity, R/L orthrospocic knee sx, achillies tendon repair Feb 2015. Osteoarthritis. Pt had both knees injected February 2019. Cervical vertebra fused. - Diagnoses Diagnoses: Pt reports the following PMHx; HTN, HLD, RAY, Anxiety, Depression, L h/o rotator cuff sx 2017, L orthoscopic sx June 2017, hx L heart catheteriza tion, hx L hip THR Jan 2017, obesity, R/L orthrospocic knee sx, achillies tendon repair Feb 2015. Osteoarthritis. Pt had both knees injected February 2019. Cervical vertebra fused. - Symptoms Symptoms: Pt reports; chronic head aches, transitent intermitent neck pain, crunching cerivical pain, chronic constant low back pain aching, L shoulder3/10 resting, 6/10 with movement, if pops 10/10 pain, R hip 1/10 rest, 1-2/10 w/ movement intermitent pain., L hip usually does pretty well, occassionally has pain 7/10 burning to stabbing pain. R/L knee 2-3 pain, crunch sounds in bilateral knees. - Pain Pain: Pt reports; chronic head aches, transitent intermitent neck pain, crunching cerivical pain, chronic constant low back pain aching, L shoulder3/10 resting, 6/10 with movement, if pops 10/10 pain, R hip 1/10 rest, 1-2/10 w/ movement intermitent pain., L hip usually does pretty well, occassionally has pain 7/10 burning to stabbing pain. R/L knee 2-3 pain, crunch sounds in bilateral knees. - Work History Work History: [employer] Work[employer] 23yrs, stopped May 2016. On disabililty since 2016. - ADLS ADLS: Lives alone 1 story house w/ basement. 2 steps to enter no handrail. Occassionally has to grab shelves. Steps to basement has 1 handrail full flight. 1 step to kitchen. Pt has straight cane he keeps in car if needed. Tub/shower, grab bars, HHS, std toilet seat with handrails. Completes own cooking, drives, cares for dog and able to carry dog food on his own short distance. Completes own grocery shopping holds onto cart, carries groceries from car to porch to house slowly to be careful. Does clean yard and mow. - Physical Examination ROM: R UE WFL, L UE limited ROM, L shoulder flexion 0/105', shoulder abduction 0/94', elbow 0/135', external rotation 0/20', internal rotation 0/30'. BLE WFL. Strength: Generalized MMT R UE 5/5, L UE shoulder 3+/5, bicep/tricep 4/5. R LE 4/5, L LE 4-/5 Right Local Combination Truck Driver Strength Average: 150.66 Left Local Combination Truck Driver Strength Average: 147.33 Right Lateral Pinch Average: 21.33 Left Lateral Pinch Average: 23.00 Right Tripod Pinch Average: 19.00 Left Tripod Pinch Average: 16.00 Sensation: L hand numbness. Monofilament test L hand 2.83 (normal range) Fine Motor: Pt states no fine motor concerns at this time. Balance: In past 3 months has had fall down 2 steps in back of house loss balance and tripped down steps. - Non Material Handling Activities Bending: Unable to complete touching down to floor on own. Modified bending down to 14 inch box. 1x, 10x, pt stated unable to complete bending 10x fast. Squatting: Squats using R hand support on desk 1x, 10x, unable to complete 10x fast secondary to pain. Kneeling: Pt able to complete 8 kneels 4 left and 4 right using desk for support of bilateral arms to assist with lifting up. Reaching out/up: Reaching up 1x, 10x, 10x fast with limited ROM and limited use of L shoulder. Reaching out L/R 1x, 10x, 10X fast Walking: Pt able to complete walk test 4 min 12 sec then had to stop 8/10 pain L hip, 6/10 bilateral knee pain, 6/10 L shoulder pain. Standing: Pt able to stand few minutes at a time between activities. Sitting: Pt able to sit in beginning of test 35 min w/o having to stand for any s/s of discomfort. Climbing Stairs: 10 steps reciprocal movement using bilateral handrails up and down steps - Dynamic Occasional Lifting Capacity Floor Lift: 45lb max Knee Lift: 45lb max Waist Lift: 45lb max Shoulder Lift: 20lb max Overhead Lift: unable to complete secondary to limited functional use L shoulder Carryinlb carrying 18 ft
--- NOTE | 2019-04-06 11:36 | HP.OT.NRP ---
HP - Discharge Summary - Patient Information MELIZA KELLEY was seen in my office for initial evaluation on . The following Plan of Care was established for this patient: This patient was last seen in our office 03/09/19. Pertinent comments regarding their Occupational therapy will appear below: Pt seen for OT FCE 03/09/19. No longer requires skilled OT services. D/C OT POC At this point I will be discontinuing this patient from occupational therapy. I would be happy to see this patient again in the future if found appropriate by the physician. Thank you! Heather Hoffmann
== END 2019-03-09 19:00 | disposition home or self-care (01) ==
LOC: OT 13:25
PROVIDERS: Family Provider Family Medicine; PCP Family Medicine; Referring Provider Orthopaedic Surgery; Visit Provider Orthopaedic Surgery
DX: M25.569 Pain in unspecified knee (principal)
CPT/HCPCS: 97165; 97167

== ENCOUNTER → 2019-04-11 12:53 | Outpatient (CLI) | payer MEDICARE, SELFPAY ==
[2019-03-15 09:40] VITALS: BMI 48.2
[2019-04-11 13:26] LABS: Absolute Lymphocyte Count 2.31 X10^3/uL (0.83-4.51); Absolute Neutrophil Count 3.9 X10^3/uL (2.0-7.7); Basophil# 0.08 X10^3/uL; Basophil% 1.1 % (0-1); Eosinophil# 0.18 X10^3/uL; Eosinophils% 2.5 % (0-5); Hematocrit 46.9 % (40-54); Hemoglobin 15.2 g/dL (13.0-16.5); Lymphocyte # 2.31 X10^3/ul (4.0); Lymphocyte % 31.8 % (19-41); Mean Corp Hgb Conc 32.4 g/dL (32-36); Mean Corpuscular Hgb 29.9 pg (27.0-32.0); Mean Corpuscular Volume 92.3 fL (80-94); Mean Platelet Vol. 10.4 fl (6.2-12.0); Monocyte# 0.69 X10^3/uL; Monocyte% 9.5 % (0-10); NRBC Flagged by Analyzer 0 % (0-5); Neutrophil # 3.92 X10^3/uL (2.7-7.7); Neutrophil % 53.9 % (47-70); Platelet Count 257 K/mm3 (150-450); RBC Distribution Width CV 12.9 % (11.6-14.6); RBC Distribution Width SD 43.6 fl (35.1-43.9); Red Blood Count 5.08 M/mm3 (4.6-6.2); White Blood Count 7.3 K/mm3 (4.4-11.0)
[2019-04-11 13:58] LABS: Valproic Acid (Depakene) Level 7 ug/mL (50-100)
[2019-04-11 14:00] LABS: ALB/GLOB Ratio 1.2 RATIO (0.9-2.4); AST(SGOT) 32 U/L (15-37); Alanine Aminotransfer ALT/SGPT 32 U/L (16-61); Alkaline Phosphatase 62 U/L (45-117); Anion Gap 5 (5-15); BUN 17 mg/dL (7-18); BUN/Creat Ratio 15.6 RATIO (10-20); Calcium,Total 8.9 mg/dL (8.5-10.1); Chloride 104 mmol/L (98-107); Creatinine, Serum 1.09 mg/dL (0.70-1.30); EST Glomerular Filtration Rate 75 mL/min (>60); Est Glom Filt Rate - Afr Amer 91 mL/min (>60); Globulin 3.2 g/dL (2.2-4.2); Glucose 100 mg/dL (74-106); Potassium 3.8 mmol/L (3.5-5.1); Protein, Total 7.2 g/dL (6.4-8.2); Sodium Level 139 mmol/L (136-145)
== END ==
PROVIDERS: Family Provider Family Medicine; PCP Family Medicine; Referring Provider Psychiatry & Neurology Psychiatry; Visit Provider Psychiatry & Neurology Psychiatry
DX: Z79.899 Other long term (current) drug therapy (principal)
CPT/HCPCS: 36415; 80053; 80164; 85025

== ENCOUNTER → 2019-07-12 09:53 | Outpatient (CLI) | payer MEDICARE, SELFPAY ==
[2019-03-15 09:40] VITALS: BMI 48.2
[2019-07-12 12:26] LABS: Ammonia < 10.0 umol/L (11-32)
[2019-07-12 12:28] LABS: Absolute Lymphocyte Count 2.17 X10^3/uL (0.83-4.51); Absolute Neutrophil Count 3.1 X10^3/uL (2.0-7.7); Basophil# 0.08 X10^3/uL; Basophil% 1.2 % (0-1); Eosinophils% 3.1 % (0-5); Hematocrit 46.2 % (40-54); Hemoglobin 14.8 g/dL (13.0-16.5); Lymphocyte # 2.17 X10^3/ul (4.0); Lymphocyte % 33.7 % (19-41); Mean Corpuscular Hgb 29.7 pg (27.0-32.0); Mean Corpuscular Volume 92.8 fL (80-94); Monocyte# 0.89 X10^3/uL; Monocyte% 13.8 % (0-10); NRBC Flagged by Analyzer 0 % (0-5); Neutrophil # 3.06 X10^3/uL (2.7-7.7); Neutrophil % 47.6 % (47-70); Platelet Count 237 K/mm3 (150-450); RBC Distribution Width CV 12.9 % (11.6-14.6); RBC Distribution Width SD 43.8 fl (35.1-43.9); Red Blood Count 4.98 M/mm3 (4.6-6.2); White Blood Count 6.4 K/mm3 (4.4-11.0)
[2019-07-12 12:57] LABS: ALB/GLOB Ratio 1.2 RATIO (0.9-2.4); AST(SGOT) 32 U/L (15-37); Alanine Aminotransfer ALT/SGPT 41 U/L (16-61); Albumin, Serum 3.7 g/dL (3.2-5.0); Alkaline Phosphatase 53 U/L (45-117); Anion Gap 6 (5-15); BUN 18 mg/dL (7-18); BUN/Creat Ratio 17.1 RATIO (10-20); CRP < 2.90 mg/L (0.0-3.0); Calcium,Total 8.9 mg/dL (8.5-10.1); Chloride 101 mmol/L (98-107); Creatinine, Serum 1.05 mg/dL (0.70-1.30); EST Glomerular Filtration Rate 78 mL/min (>60); Est Glom Filt Rate - Afr Amer 95 mL/min (>60); Globulin 3.2 g/dL (2.2-4.2); Glucose 98 mg/dL (74-106); Potassium 3.9 mmol/L (3.5-5.1); Protein, Total 6.9 g/dL (6.4-8.2); Sodium Level 137 mmol/L (136-145); Thyroid Stim Hormone (TSH) 3.24 uIU/mL (0.358-3.74)
== END ==
PROVIDERS: PCP Family Medicine; Referring Provider Family Medicine; Visit Provider Family Medicine
DX: I42.9 Cardiomyopathy, unspecified (principal); R53.81 Other malaise; R53.83 Other fatigue; R41.89 Other symptoms and signs involving cognitive functions and awareness
CPT/HCPCS: 36415; 80053; 82140; 84443; 85025; 86140

== ENCOUNTER → 2019-10-19 | Outpatient (CLI) | payer MEDICARE, SELFPAY ==
[2019-03-15 09:40] VITALS: BMI 48.2
--- NOTE | 2019-10-19 11:26 | VDLE_ITS ---
Reason For Study: SWELLING RIGHT LEFT GSV is normal. CFV is compressible, spontaneous, phasic, CFV is compressible, spontaneous, phasic, competent, and demonstrates normal competent and demonstrates normal augmentation. augmentation. FV is compressible, spontaneous, phasic, competent and demonstrates normal augmentation. POP V is compressible, spontaneous, phasic, competent and demonstrates normal augmentation. T/P Trunk is compressible. PTV is compressible. RT PerV is compressible. Procedure Exam performed in department. The study was technically difficult. A preliminary report was called and/or faxed to JANAY EASON. Interpretation Summary Deep veins of the right lower extremity are patent and compressible segmentally. There is no evidence of right lower extremity deep vein thrombosis. Valvular competence appears intact within the proximal deep venous system on the right . The right great saphenous vein appears patent and compressible segmentally. Ordering Physician: Janay Eason Referring Physician: Janay Eason Performed By: Liv Rasheed, YANI, RVT
[2019-10-19 12:41] LABS: Absolute Lymphocyte Count 1.92 X10^3/uL (0.83-4.51); Absolute Neutrophil Count 3.5 X10^3/uL (2.0-7.7); Basophil# 0.06 X10^3/uL; Basophil% 0.9 % (0-1); Eosinophil# 0.15 X10^3/uL; Eosinophils% 2.3 % (0-5); Hematocrit 47.7 % (40-54); Hemoglobin 14.8 g/dL (13.0-16.5); Lymphocyte # 1.92 X10^3/ul (4.0); Mean Corpuscular Hgb 29.1 pg (27.0-32.0); Mean Corpuscular Volume 93.7 fL (80-94); Monocyte# 0.66 X10^3/uL; Monocyte% 10.3 % (0-10); NRBC Flagged by Analyzer 0 % (0-5); Neutrophil # 3.53 X10^3/uL (2.7-7.7); Neutrophil % 55.4 % (47-70); Platelet Count 247 K/mm3 (150-450); RBC Distribution Width CV 13.1 % (11.6-14.6); RBC Distribution Width SD 44.7 fl (35.1-43.9); Red Blood Count 5.09 M/mm3 (4.6-6.2); White Blood Count 6.4 K/mm3 (4.4-11.0)
[2019-10-19 12:59] LABS: ALB/GLOB Ratio 1.1 RATIO (0.9-2.4); AST(SGOT) 32 U/L (15-37); Alanine Aminotransfer ALT/SGPT 38 U/L (16-61); Albumin, Serum 3.8 g/dL (3.2-5.0); Alkaline Phosphatase 53 U/L (45-117); Anion Gap 6 (5-15); BUN 14 mg/dL (7-18); Chloride 103 mmol/L (98-107); EST Glomerular Filtration Rate 83 mL/min (>60); Est Glom Filt Rate - Afr Amer 100 mL/min (>60); Globulin 3.4 g/dL (2.2-4.2); Glucose 99 mg/dL (74-106); Potassium 4.5 mmol/L (3.5-5.1); Protein, Total 7.2 g/dL (6.4-8.2); Sodium Level 139 mmol/L (136-145); Thyroid Stim Hormone (TSH) 2.51 uIU/mL (0.358-3.74)
== END | disposition home or self-care (01) ==
PROVIDERS: PCP Family Medicine; Referring Provider Family Medicine; Visit Provider Family Medicine
DX: I10 Essential (primary) hypertension (principal); M79.89 Other specified soft tissue disorders
CPT/HCPCS: 36415; 80053; 84443; 85025; 93971

== ENCOUNTER → 2019-12-01 10:40 | Outpatient (CLI) | payer MEDICARE, SELFPAY ==
[2019-12-01 10:33] VITALS: BMI 48.2
--- NOTE | 2019-12-01 10:40 | RAD_ITS ---
STUDY: X-RAY - PELVIS AND RIGHT HIP REASON FOR EXAM: Chronic pain, no specific injury. TECHNIQUE: 2 views of the pelvis and hip. COMPARISON: Radiograph 02/04/2017. FINDINGS: There is a contralateral left hip arthroplasty with heterotopic ossification. There is enthesopathy of the iliac wings bilaterally. Normal bilateral superior and inferior pubic rami. Normal pubic symphysis. Normal bilateral ischial tuberosities. There is right hip arthrosis with marginal osteophytes and increased joint space narrowing at the superior lateral aspect since the prior study. There is a right femoral cam lesion. RAD/HIP, UNI W/ Pelvis 2-3 Views IMPRESSION: Right hip arthrosis. Electronically Signed: Eduardo Alegria MD at 12:13 EDT Tel , Service support ,
== END ==
PROVIDERS: PCP Family Medicine; Referring Provider Orthopaedic Surgery; Visit Provider Orthopaedic Surgery
DX: M16.11 Unilateral primary osteoarthritis, right hip (principal)
CPT/HCPCS: 73502; 93971

== ENCOUNTER → 2019-12-01 11:24 | Outpatient (CLI) | payer MEDICARE, SELFPAY ==
[2019-12-01 10:33] VITALS: BMI 48.2
--- NOTE | 2019-12-01 11:25 | VDLE_ITS ---
Reason For Study: Swelling RIGHT GSV is normal. CFV is compressible, spontaneous, phasic, competent and demonstrates normal augmentation. FV is compressible, spontaneous, phasic, competent and demonstrates normal augmentation. POP V is compressible, spontaneous, phasic, competent and demonstrates normal augmentation. T/P Trunk is compressible. PTV is compressible. RT PerV is compressible. Procedure Exam performed in department. A preliminary report was called and/or faxed to [facility]. Interpretation Summary There is no evidence of right lower extremity deep vein thrombosis. Right great saphenous vein appears patent and compressible segmentally. Ordering Physician: Seda Obrien Referring Physician: Jj Eason MD Performed By: Ester Mack RVT and Student
== END ==
PROVIDERS: PCP Family Medicine; Referring Provider Orthopaedic Surgery; Visit Provider Orthopaedic Surgery
DX: M79.89 Other specified soft tissue disorders (principal)
CPT/HCPCS: 93971

== ENCOUNTER → 2020-02-09 | Outpatient (CLI) | payer MEDICARE, SELFPAY ==
[2020-01-03 12:34] VITALS: BMI 48.2
--- NOTE | 2020-02-09 11:46 | RAD_ITS ---
STUDY: X-RAY CHEST REASON FOR EXAM: Male, 54 years old. cough, bronchospasm TECHNIQUE: Frontal and lateral views of the chest COMPARISON: 10 February 2013 FINDINGS: The lungs are clear and expanded. There is no demonstrated pleural abnormality. Normal size heart. Normal mediastinum and lalitha. Normal visualized pulmonary arteries. Normal visualized aortic arch and descending thoracic aorta. Normal visualized thoracic spine. Normal visualized ribs, clavicles, and shoulders. There is no demonstrated abnormality of the visualized soft tissue structures of the upper abdomen. RAD/Chest PA and Lateral IMPRESSION: Normal x-ray examination of the chest. Electronically Signed: Francisco Emanuel, at 21:39 EDT Tel , Service support ,
== END | disposition home or self-care (01) ==
LOC: MTRAD 11:46
PROVIDERS: PCP Family Medicine; Referring Provider Family Medicine; Visit Provider Family Medicine
DX: J98.01 Acute bronchospasm (principal)
CPT/HCPCS: 71046

== ENCOUNTER → 2020-03-14 14:51 | Outpatient (CLI) | payer MEDICARE, SELFPAY ==
[2020-03-14 13:47] VITALS: BMI 49.0
[2020-03-14 17:48] LABS: ALB/GLOB Ratio 1.1 RATIO (0.9-2.4); AST(SGOT) 27 U/L (15-37); Alanine Aminotransfer ALT/SGPT 40 U/L (16-61); Albumin, Serum 3.9 g/dL (3.2-5.0); Alkaline Phosphatase 47 U/L (45-117); Anion Gap 4 (5-15); BUN 25 mg/dL (7-18); BUN/Creat Ratio 24.5 RATIO (10-20); Chloride 103 mmol/L (98-107); Cholesterol 217 mg/dL (200); Creatinine, Serum 1.02 mg/dL (0.70-1.30); EST Glomerular Filtration Rate 81 mL/min (>60); Est Glom Filt Rate - Afr Amer 98 mL/min (>60); Globulin 3.4 g/dL (2.2-4.2); Glucose 84 mg/dL (74-106); High Density Lipoprotein 54 mg/dL; Potassium 4.5 mmol/L (3.5-5.1); Protein, Total 7.3 g/dL (6.4-8.2); Sodium Level 138 mmol/L (136-145); Triglycerides 97 mg/dL; Very Low Density Lipoprotein 19 mg/dL (5-40)
== END ==
PROVIDERS: PCP Family Medicine; Referring Provider Physician Assistant Medical; Visit Provider Physician Assistant Medical
DX: E78.00 Pure hypercholesterolemia, unspecified (principal); I10 Essential (primary) hypertension; I25.10 Atherosclerotic heart disease of native coronary artery without angina pectoris
CPT/HCPCS: 36415; 80053; 80061

== ENCOUNTER → 2020-03-20 | Outpatient (CLI) | payer MEDICARE, SELFPAY ==
[2020-03-14 13:47] VITALS: BMI 49.0
== END | disposition home or self-care (01) ==
LOC: MFPLAB 14:50 → LABSPEC 14:53
PROVIDERS: PCP Family Medicine; Referring Provider Family Medicine; Visit Provider Family Medicine
DX: Z20.828 Contact with and (suspected) exposure to other viral communicable diseases (principal)
CPT/HCPCS: 87633; 87635; U0003

== ENCOUNTER → 2020-07-02 12:38 | Outpatient (CLI) | payer MEDICARE, SELFPAY ==
[2020-03-14 13:47] VITALS: BMI 49.0
[2020-07-02 15:28] LABS: Absolute Lymphocyte Count 2.19 X10^3/uL (0.83-4.51); Basophil# 0.07 X10^3/uL; Eosinophil# 0.12 X10^3/uL; Eosinophils% 1.7 % (0-5); Hematocrit 44.7 % (40-54); Lymphocyte # 2.19 X10^3/ul (4.0); Lymphocyte % 30.9 % (19-41); Mean Corp Hgb Conc 31.3 g/dL (32-36); Mean Corpuscular Hgb 28.7 pg (27.0-32.0); Mean Corpuscular Volume 91.8 fL (80-94); Mean Platelet Vol. 11.4 fl (6.2-12.0); Monocyte# 0.65 X10^3/uL; Monocyte% 9.2 % (0-10); NRBC Flagged by Analyzer 0 % (0-5); Neutrophil % 56.5 % (47-70); Platelet Count 246 K/mm3 (150-450); RBC Distribution Width CV 13.2 % (11.6-14.6); Red Blood Count 4.87 M/mm3 (4.6-6.2); White Blood Count 7.1 K/mm3 (4.4-11.0)
[2020-07-02 16:07] LABS: ALB/GLOB Ratio 1.4 RATIO (0.9-2.4); AST(SGOT) 14 U/L (15-37); Alanine Aminotransfer ALT/SGPT 22 U/L (16-61); Albumin, Serum 3.9 g/dL (3.2-5.0); Alkaline Phosphatase 69 U/L (45-117); Anion Gap 6 (5-15); BUN 19 mg/dL (7-18); BUN/Creat Ratio 18.6 RATIO (10-20); Calcium,Total 8.8 mg/dL (8.5-10.1); Chloride 101 mmol/L (98-107); Creatinine, Serum 1.02 mg/dL (0.70-1.30); EST Glomerular Filtration Rate 81 mL/min (>60); Est Glom Filt Rate - Afr Amer 98 mL/min (>60); Globulin 2.8 g/dL (2.2-4.2); Glucose 97 mg/dL (74-106); Potassium 4.4 mmol/L (3.5-5.1); Protein, Total 6.7 g/dL (6.4-8.2); Sodium Level 139 mmol/L (136-145)
== END ==
PROVIDERS: PCP Family Medicine; Referring Provider Family Medicine; Visit Provider Family Medicine
DX: I42.9 Cardiomyopathy, unspecified (principal); M13.0 Polyarthritis, unspecified
CPT/HCPCS: 36415; 80053; 85025

== ENCOUNTER → 2020-07-17 09:30 | Outpatient (CLI) | payer MEDICARE, SELFPAY ==
[2020-03-14 13:47] VITALS: BMI 49.0
--- NOTE | 2020-07-17 09:33 | US_ITS ---
STUDY: ULTRASOUND BREAST - LEFT REASON FOR EXAM: Male, 55 years old. Palpable retroareolar lump left breast. TECHNIQUE: Axial and longitudinal images of the LEFT breast were performed with a high resolution ultrasound transducer. # OF IMAGES: 31 COMPARISON: Comparison is made with prior mammogram done earlier today. FINDINGS: LEFT Breast: The palpable abnormality corresponds to a 1.6 cm x 2.3 cm x 1.8 cm irregular nodular density with shadowing. A biopsy recommended. US/Breast Limited Unilateral IMPRESSION: 1.6 cm x 2.3 cm x 1.8 cm irregular nodular density with shadowing. This corresponds to the palpable abnormality. A biopsy is recommended. ASSESSMENT CATEGORY: BIRADS Category 4: Suspicious - Biopsy Should Be Considered. A letter regarding these results will be sent to the patient by the facility within 30 days. Electronically Signed: Daniel Torres MD at 14:08 EDT , Service support ,
--- NOTE | 2020-07-17 09:33 | BI_ITS ---
MAMMOGRAPHY - BILATERAL DIAGNOSTIC REASON FOR EXAM: Male, 55 years old. Left breast lump. PERTINENT HISTORY: Mother with breast cancer. Grandmother with breast cancer. TECHNIQUE: Digital bilateral breast anamika (3D mammographic acquisition) in the CC and MLO projections. 2-D mediolateral oblique (MLO) and craniocaudad (CC) views of both breasts were obtained. CAD: Full Field Digital Mammography with Computer Added Detection was performed. COMPARISON: None. Baseline examination. FINDINGS: Breast Composition: There are scattered areas of fibroglandular density. There are no dominant masses or suspicious calcifications. Asymmetry of breast tissue or more breast tissue seen in the retroareolar region of the left breast as compared to the right side most likely representing gynecomastia. Benign appearing right axillary lymph nodes. No other significant abnormalities are identified. BI/DIAG MAMM W/CAD, BILAT IMPRESSION: Asymmetrical breast tissue with more breast tissue is seen in the retroareolar region of the left breast as described. Correlation with ultrasound is recommended. ASSESSMENT CATEGORY: BIRADS Category 0: Incomplete. Need additional imaging evaluation. A letter regarding these results will be sent to the patient by the facility within 30 days. Approximately 10% of breast cancers are not detected by mammography. A normal mammogram should not delay biopsy of a clinically suspicious abnormality. Electronically Signed: Daniel Torres MD at 10:28 EDT , Service support ,
== END ==
PROVIDERS: PCP Family Medicine; Referring Provider Family Medicine; Visit Provider Family Medicine
DX: N63.25 Unspecified lump in the left breast, overlapping quadrants (principal); N63.42 Unspecified lump in left breast, subareolar
CPT/HCPCS: 76642; 77062; 77066; G0279

== ENCOUNTER → 2020-07-19 | Outpatient (CLI) | payer MEDICARE, SELFPAY ==
--- NOTE | 2020-07-19 13:00 | BRBX_PTH ---
PATIENT: MELIZA KELLEY LOC: [facility] U#:[id number] AGE/SX: 55/M ROOM: RE07/19/[address]: Dr. Jeremias Singh MD : 1965 BED: DIS: 07/19/2020 SPEC #: [id number] RECD: 07/19/20 15:14 STATUS: SO LINSEY #: [id number] YI: 07/19/20 13:[address]: Jeremias Singh DEPT: SURGICAL PATHOLOGY RECD BY: Ankita Ash ENTERED: 07/20/20 06:24 SP TYPE: BREAST BX OTHR DR: Dr. Jj Eason MD Tissues: Breast, NOS Procedures: Surgery Specimen Level IV HEADER OPERATION: Left breast biopsy PRE-OP DIAGNOSIS: Left breast mass TISSUE SUBMITTED: Left breast MICROSCOPIC DIAGNOSIS Left breast mass, core biopsy: Consistent with gynecomastia. AM:darien 07/23/2020 MICROSCOPIC DESCRIPTION Slides are reviewed. GROSS DESCRIPTION Received in fixative is one container labeled with the patient name and designated left breast. The specimen consists of multiple elongated fragments of liang-yellow fibroadipose tissue that in aggregate measure 2 x 0.5 x 0.1 cm. The entire specimen is submitted in one cassette. / SJ:darien 07/20/20 TC:5 CPT: 63695
[2020-07-19 13:24] VITALS: BMI 49.5
== END | disposition home or self-care (01) ==
LOC: LABSPEC 15:20
PROVIDERS: PCP Family Medicine; Visit Provider Surgery
DX: N63.20 Unspecified lump in the left breast, unspecified quadrant (principal)
CPT/HCPCS: 88305

== ENCOUNTER 2020-08-23 09:31 | Day surgery (SDC) | payer MEDICARE, SELFPAY ==
[2020-08-02 12:55] VITALS: BMI 49.8
[2020-08-23] VITALS (7 sets, daily range): BP systolic 114–145; BP diastolic 73–87; PULSE 63–73; RESP 16–20; TEMP 36.3–36.8; O2SAT 93–96; BMI 50.0
--- NOTE | 2020-08-23 07:00 | HP_ITS ---
Intake Vital Signs 08/02/20 Height 5 ft 10 in 08/02/20 Weight: 347 lb 08/02/20 BMI 49.8 08/02/20 BP 161/88 H 08/02/20 Blood Pressure Location Rt brachial 08/02/20 Position Sitting 08/02/20 Respiration 16 08/02/20 Pulse 59 L 08/02/20 Pulse Source Monitor 08/02/20 Temp 97.8 F 08/02/20 Temp Source Temporal 08/02/20 Pulse Oximetry (%) 95 08/02/20 Oxygen Delivery Method room air Intake Visit Reasons: Discuss pathology and surgery Chief Complaint: left breast mass Network Technician Required: No Is patient in pain?: Yes (Left breast) Pain scale (1-10): 4 Allergies atorvastatin [From Lipitor] Allergy (Verified 08/02/20 13:03) Unknown Penicillins Allergy (Verified 08/02/20 13:03) Unknown pravastatin [From Pravachol] Allergy (Verified 08/02/20 13:03) Unknown tolmetin Allergy (Verified 08/02/20 13:03) Hives meloxicam Adverse Reaction (Verified 08/02/20 13:03) Other Medications multivitamin 1 tab PO DAILY 12/01/19 [History Confirmed 08/02/20] amlodipine 5 mg tablet 5 mg PO DAILY tablet 08/02/20 [History Confirmed 08/02/20] bupropion HCl 150 mg tablet,12 hr sustained-release 150 mg PO QAM each 08/02/20 [History Confirmed 08/02/20] carvedilol 12.5 mg tablet 12.5 mg PO ONCE tablet 08/02/20 [History Confirmed 08/02/20] cholecalciferol (vitamin D3) 50 mcg (2,000 unit) capsule 50 mcg PO DAILY cap 08/02/20 [History Confirmed 08/02/20] diclofenac sodium 75 mg tablet,delayed release 75 mg PO ONCE tablet 08/02/20 [History Confirmed 08/02/20] divalproex 500 mg tablet,extended release 24 hr 1,500 mg PO DAILY tablet 08/02/20 [History Confirmed 08/02/20] famotidine 40 mg tablet 40 mg PO BID tablet 08/02/20 [History Confirmed 08/02/20] hydrochlorothiazide 25 mg tablet 25 mg PO DAILY tablet 08/02/20 [History Confirmed 08/02/20] lamotrigine 200 mg tablet 400 mg PO DAILY tablet 08/02/20 [History Confirmed 08/02/20] trazodone 50 mg tablet 50 mg PO QHS PRN tablet 08/02/20 [History Confirmed 08/02/20] [facility] Medical History Essential (primary) hypertension (Chronic) Hyperlipidemia (Chronic) Palpitations (Chronic) RAY (obstructive sleep apnea) (Chronic) Cataract, left eye (Acute) Anxiety and depression (Chronic) Body mass index (BMI) 35 or more (Chronic) Obesity (Chronic) Surgical History History of left heart catheterization (Chronic 02/2013) History of left hip replacement (Chronic 01/2017) H/O rotator cuff surgery (Resolved) Family History Mother Breast cancer Myocardial infarction Hypertension Father Colon cancer Myocardial infarction Social History (Updated 08/03/20 @ 07:[address] Jeremias Singh MD) Smoking Status: Never smoker alcohol intake: never substance use type: does not use what type of physical activity do you participate in: none HPI HPI HPI: MELIZA KELLEY, is a 55 M who presents to the office today for HPI HPI HPI: MELIZA KELLEY, is a 55 M who presents to the office today for left breast pain. The patient returns for pathology results after having a biopsy of his left breast. The patient is reporting that the pain is ranging from 5-10/10. The patient says that occasionally the pain wakes him from sleep and sometimes it hurts to bump into anything or even when he is putting his shirt on. The patient is having severe pain and this is debilitating and causing hindrance to his daily activities. ROS General General: No weight change or fatigue Breast Breast: Yes left breast lump, breast pain and abnormal US Cardio Cardiovascular: No murmur, pacemaker, heart disease, atrial fibrillation, high blood pressure, heart attack, heart stent, palpitations, shortness of breat with exertion or chest pain Psych Psychiatric: No depression or anxiety Resp Respiratory: No shortness of breath, No sleep apnea, No cough, No COPD, No asthma, No emphysema, No wheezing Gastro Gastrointestinal: No abdominal pain, No nausea or vomiting, No diarrhea, No constipation, No blood in stool, No acid reflux, No hemorrhoids, No ulcers, No gallbladder problem, No black,tarry stools Ike Hematologic: No blood thinners Exam Const General: cooperative Orientation: alert, oriented x3 Chest Other: Tenderness of the left breast to palpation with a lump behind the nipple. Resp Effort & Inspection: normal respiratory effort Auscultation: clear to auscultation bilaterally Cardio Rate: regular rate Rhythm: regular rhythm Heart Sounds: no murmurs GI Inspection: non-distended Palpation: soft, nontender Assessment & Plan Problems 1. Breast pain in male N64.4 2. Gynecomastia, male N62 Plan The patient is having severe pain in the left breast and biopsy showed gynecomastia. The patient would like this removed. The patient states he is in enough pain that it is restricting his daily activities and waking him from sleep. The patient would like this removed if possible. I discussed surgery with him as well as excision under MAC anesthesia. I discussed the risks including but not limited to bleeding, infection, recurrence of gynecomastia. The patient understands the risks and would like to proceed with excision. Jeremias Singh MD Pager: [facility] [address] [place] [address], [address] [place] [address] Office: Coding Level of Care Code Off vis,est,level 2 Diagnoses Breast pain in male N64.4 Gynecomastia, male N62
[2020-08-23] MEDS: Lactated Ringers 1,000 ML 100 ML IV (10:23)
--- NOTE | 2020-08-23 10:59 | HP.PCM_ITS ---
History and Physical Date of Admission: 08/23/20 Intake Vital Signs 08/02/20 Height 5 ft 10 in 08/02/20 Weight: 347 lb 08/02/20 BMI 49.8 08/02/20 BP 161/88 H 08/02/20 Blood Pressure Location Rt brachial 08/02/20 Position Sitting 08/02/20 Respiration 16 08/02/20 Pulse 59 L 08/02/20 Pulse Source Monitor 08/02/20 Temp 97.8 F 08/02/20 Temp Source Temporal 08/02/20 Pulse Oximetry (%) 95 08/02/20 Oxygen Delivery Method room air Intake Visit Reasons: Discuss pathology and surgery Chief Complaint: left breast mass Commercial Real Estate Appraiser Required: No Is patient in pain?: Yes (Left breast) Pain scale (1-10): 4 Allergies atorvastatin [From Lipitor] Allergy (Verified 08/02/20 13:03) Unknown Penicillins Allergy (Verified 08/02/20 13:03) Unknown pravastatin [From Pravachol] Allergy (Verified 08/02/20 13:03) Unknown tolmetin Allergy (Verified 08/02/20 13:03) Hives meloxicam Adverse Reaction (Verified 08/02/20 13:03) Other Medications multivitamin 1 tab PO DAILY 12/01/19 [History Confirmed 08/02/20] amlodipine 5 mg tablet 5 mg PO DAILY tablet 08/02/20 [History Confirmed 08/02/20] bupropion HCl 150 mg tablet,12 hr sustained-release 150 mg PO QAM each 08/02/20 [History Confirmed 08/02/20] carvedilol 12.5 mg tablet 12.5 mg PO ONCE tablet 08/02/20 [History Confirmed 08/02/20] cholecalciferol (vitamin D3) 50 mcg (2,000 unit) capsule 50 mcg PO DAILY cap 08/02/20 [History Confirmed 08/02/20] diclofenac sodium 75 mg tablet,delayed release 75 mg PO ONCE tablet 08/02/20 [History Confirmed 08/02/20] divalproex 500 mg tablet,extended release 24 hr 1,500 mg PO DAILY tablet 08/02/20 [History Confirmed 08/02/20] famotidine 40 mg tablet 40 mg PO BID tablet 08/02/20 [History Confirmed 08/02/20] hydrochlorothiazide 25 mg tablet 25 mg PO DAILY tablet 08/02/20 [History Confirmed 08/02/20] lamotrigine 200 mg tablet 400 mg PO DAILY tablet 08/02/20 [History Confirmed 08/02/20] trazodone 50 mg tablet 50 mg PO QHS PRN tablet 08/02/20 [History Confirmed 08/02/20] [facility] Medical History Essential (primary) hypertension (Chronic) Hyperlipidemia (Chronic) Palpitations (Chronic) RAY (obstructive sleep apnea) (Chronic) Cataract, left eye (Acute) Anxiety and depression (Chronic) Body mass index (BMI) 35 or more (Chronic) Obesity (Chronic) Surgical History History of left heart catheterization (Chronic 02/2013) History of left hip replacement (Chronic 01/2017) H/O rotator cuff surgery (Resolved) Family History Mother Breast cancer Myocardial infarction Hypertension Father Colon cancer Myocardial infarction Social History (Updated 08/03/20 @ 07:[address] Jeremias Singh MD) Smoking Status: Never smoker alcohol intake: never substance use type: does not use what type of physical activity do you participate in: none HPI HPI HPI: MELIZA KELLEY, is a 55 M who presents to the office today for HPI HPI HPI: MELIZA KELLEY, is a 55 M who presents to the office today for left breast pain. The patient returns for pathology results after having a biopsy of his left breast. The patient is reporting that the pain is ranging from 5-10/10. The patient says that occasionally the pain wakes him from sleep and sometimes it hurts to bump into anything or even when he is putting his shirt on. The patient is having severe pain and this is debilitating and causing hindrance to his daily activities. ROS General General: No weight change or fatigue Breast Breast: Yes left breast lump, breast pain and abnormal US Cardio Cardiovascular: No murmur, pacemaker, heart disease, atrial fibrillation, high blood pressure, heart attack, heart stent, palpitations, shortness of breat with exertion or chest pain Psych Psychiatric: No depression or anxiety Resp Respiratory: No shortness of breath, No sleep apnea, No cough, No COPD, No asthma, No emphysema, No wheezing Gastro Gastrointestinal: No abdominal pain, No nausea or vomiting, No diarrhea, No constipation, No blood in stool, No acid reflux, No hemorrhoids, No ulcers, No gallbladder problem, No black,tarry stools Ike Hematologic: No blood thinners Exam Const General: cooperative Orientation: alert, oriented x3 Chest Other: Tenderness of the left breast to palpation with a lump behind the nipple. Resp Effort & Inspection: normal respiratory effort Auscultation: clear to auscultation bilaterally Cardio Rate: regular rate Rhythm: regular rhythm Heart Sounds: no murmurs GI Inspection: non-distended Palpation: soft, nontender Assessment & Plan Problems 1. Breast pain in male N64.4 2. Gynecomastia, male N62 Plan The patient is having severe pain in the left breast and biopsy showed gynecomastia. The patient would like this removed. The patient states he is in enough pain that it is restricting his daily activities and waking him from sleep. The patient would like this removed if possible. I discussed surgery with him as well as excision under MAC anesthesia. I discussed the risks including but not limited to bleeding, infection, recurrence of gynecomastia. The patient understands the risks and would like to proceed with excision. Jeremias Singh MD Pager: [facility] [address] [place] [address], [address] [place] [address] Office: I have seen and examined the patient and there are no changes. I have once again explained that insurance may not cover the procedure.
--- NOTE | 2020-08-23 11:00 | BREAST_PTH ---
PATIENT: MELIZA KELLEY [place] [facility] [place][id number] AGE/SX: 55/M ROOM: RE08/23/[address]: Dr. Jeremias Singh MD : 1965 BED: DIS: 08/23/2020 SPEC #: [id number] RECD: 08/23/20 12:20 STATUS: SO LINSEY #: [id number] YI: 08/23/20 11:[address]: Jeremias Singh DEPT: SURGICAL PATHOLOGY RECD BY: Ankita Ash ENTERED: 08/23/20 12:50 SP TYPE: BREAST OTHR DR: Dr. Jj Eason MD Tissues: Left breast, NOS Procedures: Surgery Specimen Level IV HEADER OPERATION: Excision breast mass PRE-OP DIAGNOSIS: Breast pain, gynecomastia TISSUE SUBMITTED: Left breast MICROSCOPIC DIAGNOSIS Left breast mass, excisional biopsy: Gynecomastia. AM:darien 08/27/2020 COMMENT Case has been reviewed in consultation with Dr. Gamez who concurs with the above diagnosis. IDC:[email or web address] MICROSCOPIC DESCRIPTION Slides are reviewed. GROSS DESCRIPTION Received in fixative is one container labeled with the patient's name and designated left breast mass. The specimen consists of a piece of fibroadipose tissue measuring 3 x 2.5 x 1.5 cm. The specimen is not oriented. The specimen is inked, serially sectioned and reveals liang-yellow adipose cut surfaces mixed with liang-white fibrous area. No obvious mass lesion is identified. Also present in the container are a few detached pieces of liang soft tissue measuring in aggregate 0.5 x 0.5 x 0.2 cm. The entire specimen is submitted in six cassettes from end to another end. / ALFONSO:darien 08/24/20 TC:1 CPT: 80670
[2020-08-23] MEDS: Bupivacaine Mpf 0.5% 30 ML VIAL (11:20)
--- NOTE | 2020-08-23 11:49 | PCM.OPRPT ---
Problems Associated Problem List Diagnoses (1) Breast pain, left: (2) Breast mass, left: Report of Operation Date of Procedure: 08/23/20 Pre-Operative Diagnosis: Painful left breast mass Post-Operative Diagnosis: Same Surgery/Procedure Performed:: Excision of painful left breast mass Specimen's removed: Left breast mass Description of Procedure: The patient was brought back to the operating room and MAC anesthesia was induced. The left breast was prepped and draped in usual sterile fashion. A curvilinear areolar incision was marked superior border of the areola. It was injected with local anesthetic and then a scalpel was used to make an incision and electrocautery was used to circumferentially dissect the mass in the left retroareolar space. The mass was removed and sent for pathology. The cavity was irrigated and electrocautery was used to maintain hemostasis. Once hemostasis was achieved the incision was closed with interrupted 3-0 Vicryl sutures as well as a running 4-0 Monocryl suture. Dermabond glue was then applied. The patient was taken to PACU in stable condition. Admit VTE Documentation VTE Mechan Device Prophylaxis: SCD's
--- NOTE | 2020-08-23 11:51 | EX.PCM.DISCH ---
Discharge Instructions Outpatient Procedure Reason For Visit: LT EXCISION BREAST MASS Procedure: Breast Surgery Diet Discharge Diet: No restrictions Activity Discharge Activity: May not drive while taking narcotic pain medications. May shower in (days): 1 Lifting Restrictions: 10 lbs for 2 days Dressing / Incision Call your doctor if your incision/area has: Continuous Slow Oozing and Increased Redness Call your doctor if you observe: Fever of 101 or Higher Suture Line Care: Avoid Pulling/Pushing and Avoid Pinching/Bending Cleanse incision/area with: Soap & Water Follow Up Care Please Follow Up With: Jeremias Singh MD When: Please call to schedule 2 week follow up appointment. [phone] Test Results: Test results from this visit will be discussed in further detail at your follow-up appointment, if applicable. Discharge Plan Admission Primary Reason for Your Visit: Painful left breast mass Attending Provider: Jeremias Singh Primary Care Provider: Jj Eason Discharge Orders/Prescriptions Prescriptions: New oxycodone-acetaminophen [Endocet] 5-325 mg tablet 1 tab PO Q6H PRN (Reason: pain) 5 Days Qty: 14 RF: 0 No Action multivitamin [Daily Multi-Vitamin] Tablet 1 tab PO DAILY RF: 0 amlodipine 5 mg tablet 5 mg PO DAILY RF: 0 hydrochlorothiazide 25 mg tablet 25 mg PO DAILY RF: 0 divalproex 500 mg tablet extended release 24 hr 1,500 mg PO QHS RF: 0 lamotrigine 200 mg tablet 400 mg PO QHS RF: 0 bupropion HCl 150 mg tablet sustained-release 12 hr 150 mg PO QAM RF: 0 famotidine 40 mg tablet 40 mg PO BID RF: 0 carvedilol 12.5 mg tablet 12.5 mg PO BID RF: 0 diclofenac sodium 75 mg tablet,delayed release (DR/EC) 75 mg PO BID RF: 0 Referrals: Jj Eason MD [Primary Care Provider] - Disposition Patient Disposition: Home, self care
== END 2020-08-23 12:50 | disposition home or self-care (01) ==
LOC: SDC 09:32 → AC 09:33
PROVIDERS: PCP Family Medicine; Referring Provider Surgery; Visit Provider Surgery
PROC: (CPT 19120; principal; 2020-08-23 10:45)
DX: N62 Hypertrophy of breast (principal); I10 Essential (primary) hypertension; E78.5 Hyperlipidemia, unspecified; F41.9 Anxiety disorder, unspecified; F32.9 Major depressive disorder, single episode, unspecified; E66.9 Obesity, unspecified; G47.33 Obstructive sleep apnea (adult) (pediatric); K21.9 Gastro-esophageal reflux disease without esophagitis; Z68.43 Body mass index [BMI] 50.0-59.9, adult; Z79.899 Other long term (current) drug therapy
CPT/HCPCS: 00400; 19120; 88305; J7120

== ENCOUNTER → 2020-09-10 12:39 | Outpatient (CLI) | payer MEDICARE, SELFPAY ==
[2020-08-23 09:58] VITALS: BMI 50.0
[2020-09-10 15:18] LABS: Hemoglobin 13.7 g/dL (13.0-16.5); Mean Corp Hgb Conc 31.1 g/dL (32-36); Mean Corpuscular Hgb 28.2 pg (27.0-32.0); Mean Corpuscular Volume 90.7 fL (80-94); Mean Platelet Vol. 10.6 fl (6.2-12.0); Platelet Count 239 K/mm3 (150-450); RBC Distribution Width CV 14.2 % (11.6-14.6); RBC Distribution Width SD 47.6 fl (35.1-43.9); Red Blood Count 4.85 M/mm3 (4.6-6.2); White Blood Count 6.6 K/mm3 (4.4-11.0)
[2020-09-10 15:35] LABS: ALB/GLOB Ratio 1.1 RATIO (0.9-2.4); AST(SGOT) 23 U/L (15-37); Alanine Aminotransfer ALT/SGPT 29 U/L (16-61); Albumin, Serum 3.6 g/dL (3.2-5.0); Alkaline Phosphatase 59 U/L (45-117); Anion Gap 5 (5-15); BUN 14 mg/dL (7-18); BUN/Creat Ratio 15.6 RATIO (10-20); Calcium,Total 8.8 mg/dL (8.5-10.1); Chloride 103 mmol/L (98-107); Cholesterol 214 mg/dL (200); EST Glomerular Filtration Rate 93 mL/min (>60); Est Glom Filt Rate - Afr Amer 113 mL/min (>60); Globulin 3.4 g/dL (2.2-4.2); Glucose 106 mg/dL (74-106); High Density Lipoprotein 44 mg/dL; Sodium Level 140 mmol/L (136-145); Triglycerides 142 mg/dL; Very Low Density Lipoprotein 28 mg/dL (5-40)
[2020-09-10 15:39] LABS: Hemoglobin A1c 5.8 % (3.8-5.6)
[2020-09-10 15:50] LABS: Microalbumin,Random Urine 6.7 mg/L (NO RANGE EST.); Microalbumin:Creatinine Ratio 8.6 mg/g CRE (<30 mg/g CRE)
== END ==
PROVIDERS: PCP Family Medicine; Referring Provider Family Medicine; Visit Provider Family Medicine
DX: I42.9 Cardiomyopathy, unspecified (principal); I10 Essential (primary) hypertension; E66.01 Morbid (severe) obesity due to excess calories; Z68.43 Body mass index [BMI] 50.0-59.9, adult
CPT/HCPCS: 36415; 80053; 80061; 82043; 82570; 83036; 85027

== ENCOUNTER → 2020-12-19 06:53 | Outpatient (CLI) | payer MEDICARE, SELFPAY ==
[2020-12-05 13:05] VITALS: BMI 51.5
--- NOTE | 2020-12-19 07:01 | ECHOCS_ITS ---
Reason For Study: BLACK Procedure This was a 2D Doppler, Color Flow transthoracic echocardiogram. Contrast injection was performed. The study was technically difficult. Exam performed in department. Left Ventricle Normal LV size. Moderate concentric left ventricular hypertrophy. Left ventricular systolic function is normal. The estimated ejection fraction is 60 %. No regional wall motion abnormalities noted. Right Ventricle Normal RV size. Normal systolic function. Atria The left atrium is mildly enlarged. Normal right atrium. Mitral Valve Mitral valve not well visualized. Pulmonic Valve The pulmonic valve is not well visualized. Great Vessels Normal aortic root. The pulmonary artery is normal size. Normal inferior vena cava. Pericardium/Pleural No pericardial effusion. Medication Diluted definity 3ml given slow IV push to enhance endocardial definition. MMode/2D Measurements & Calculations LVIDd: 6.2 cm IVSd: 1.5 cm Ao root diam: 3.7 cm LVIDs: 4.6 cm LVPWd: 1.5 cm RVDd: 4.0 cm FS: 26.0 % LAV(MOD-bp): 55.2 ml LA A4 area: 21.4 cm2 LA dimension(2D): 4.8 cm LAV(MOD-bp) Indexed: 20.9 ml/m2 LAV(MOD-sp2): 46.4 ml LAV(MOD-sp4): 62.6 ml RA A4 area: 16.1 cm2 Doppler Measurements & Calculations MV E max seng: 104.2 cm/sec Lat Peak E' Seng: 7.5 cm/sec Med Peak E' Seng: 6.8 cm/sec MV A max seng: 87.2 cm/sec E/E' lat: 13.9 E/E' med: 15.4 MV E/A: 1.2 Ao V2 max: 141.6 cm/sec LV V1 max: 92.9 cm/sec PA V2 max: 112.5 cm/sec Ao max P.0 mmHg LV V1 max P.5 mmHg Ao V2 mean: 94.8 cm/sec Ao mean P.1 mmHg Ao V2 VTI: 29.0 cm ECHO/Echo Complete W/ Contrast Interpretation Summary Normal LV size. Moderate concentric left ventricular hypertrophy. Left ventricular systolic function is normal. The estimated ejection fraction is 60 %. Contrast injection was performed. Ordering Physician: Janet Villavicencio Referring Physician: Jj Eason Performed By: Edelmira Garcia, YANI, RVT
[2020-12-19 10:56] LABS: Anion Gap 4 (5-15); BUN 23 mg/dL (7-18); Chloride 105 mmol/L (98-107); EST Glomerular Filtration Rate 82 mL/min (>60); Est Glom Filt Rate - Afr Amer 100 mL/min (>60); Glucose 101 mg/dL (74-106); Potassium 4.1 mmol/L (3.5-5.1); Sodium Level 138 mmol/L (136-145)
--- NOTE | 2020-12-19 18:01 | STRESSREP ---
Stress Test Report Pharmacologic myocardial perfusion stress test. 55-year-old male with a history of chest pain. Stress protocol: Resting KG demonstrates normal sinus rhythm with a rate of 67 bpm normal intervals are noted resting blood pressure is 154/110 mmHg. 0.4 mg of regadenoson was infused per usual protocol followed by rapid intravenous saline flush injection continuous EKG monitoring was performed. The maximum heart rate attained was 78 bpm which was 47% of max infected heart rate the maximum workload was one metabolic equivalent. At rest there were no ST or T wave changes noted to suggest abnormal flow reserve and at peak infusion nonspecific ST changes were noted with did not meet the criteria for ischemia. The peak blood pressure was 160/ 112 mmHg. No clinical angina was noted. Myocardial perfusion protocol. 14.0 mCi of technetium 99m sestamibi was injected at rest. 0.4 mg of regadenoson was infused per usual protocol. At peak infusion 44.6 mCi of technetium 99m sestamibi was injected stress images were obtained stress and rest images were reconstructed and compared in the short axis vertical long and horizontal long axis. Gated images were also obtained per Perfusion SPECT analysis: Review of the stress images demonstrate normal uptake of tracer noted in all areas of the myocardium. The resting images similarly demonstrate normal uptake of tracer noted in all areas of the myocardium. No areas of reversibility are noted to suggest ischemia and no previous infarct is noted. Gated SPECT analysis: The gated ejection fraction is 65%. Conclusion: Normal pharmacologic myocardial perfusion stress test. Preserved ejection fraction.
== END ==
PROVIDERS: PCP Family Medicine; Referring Provider Nurse Practitioner Gerontology; Visit Provider Nurse Practitioner Gerontology
DX: R07.9 Chest pain, unspecified (principal); R06.02 Shortness of breath; I10 Essential (primary) hypertension
CPT/HCPCS: 36415; 78452; 80048; 93017; 93306; A9500; Q9957; A4216; C8929; J2785; J3490

== ENCOUNTER 2020-12-26 13:01 | Outpatient (RCR) | payer MEDICARE, SELFPAY ==
[2020-11-19 15:45] VITALS: BMI 49.4
--- NOTE | 2020-12-27 07:45 | HP.FCE ---
Floor (Occasional 1-33% of Day): 40# Floor (Frequent 34-66% of Day): 20# Floor (Constant 67-100% of Day): NA Floor PDL: Light-Medium Knee (Occasional 1-33% of Day): 40# Knee (Frequent 34-66% of Day): 20# Knee (Constant 67-100% of Day): NA Knee PDL: Light-Medium Waist (Occasional 1-33% of Day): 35# Waist (Frequent 34-66% of Day): 18# Waist (Constant 67-100% of Day): NA Waist PDL: Light-Medium Shoulder (Occasional 1-33% of Day): 30# Shoulder (Frequent 34-66% of Day): NA Shoulder (Constant 67-100% of Day): NA Shoulder PDL: Light Overhead (Occasional 1-33% of Day): NA Overhead (Frequent 34-66% of Day): NA Overhead (Constant 67-100% of Day): NA Overhead PDL: No Ability Bending: Occasional Ability (1-33% of day) Comments: low occasional ability Squatting: Occasional Ability (1-33% of day) Comments: low occasional ability with external support Kneeling: No Ablility (0% of day) Reaching out: Occasional Ability (1-33% of day) Reaching up: Occasional Ability (1-33% of day) Comments: right UE only left UNABLE due to ROM limitations Sitting: Frequent Ability (34-66% of day) Walking: Occasional Ability (1-33% of day) Comments: with adaptive devices as his straight cane and given freedom for rest break Standing: Occasional Ability (1-33% of day) Comments: low occasional ability with shifting his body weight Duration Sedentary Sedentary Light Light Light Medium Medium Medium Heavy Very Heavy Heavy Occasional (0-33% of day) Frequent (34-66% of day) Constant (67-100% of day) 10 # Negligible Negligible 15 # 8 # Negligible 20 # 10# Negli. 35 # 18 # 7 # 50 # 25 # 10 # 75 # 100 # >100 # 38 # 50 # >50 # 15 # 20 # >20 # Weight:: 158.757 kg Hand Dominance: Right Medical History Including Restrictions: pt has had a number of medical conditions and surgery throughout his life, but was in 2016 he was unable to work. Pt states while working he realized he was unable to kneel or bend over or squatting to get to horses legs safely. Pt states more work procedures became more difficulty and risked his safety and the horses safety. pt states he does psychiatrist once every three months and counselor 1 x month for his type 2 bipolar. pt states he has been see by Physical therapy for back, hips and knees with no success in decreasing pain- pt did see a pain mtg dr in [id number] for treatment and mtg. of his pain. pt states he does not exercise on a regular basis but tries to walk some each day. Hx right ankle dislocation with pinning 2019. H/O rotator cuff surgery (May, 2016 and scoped in June of 2017). History of left heart catheterization (02/2013). History of left hip replacement (01/2017). S/P partial mastectomy Diagnoses: Anxiety and depression. right eye cataract. type 2 bipolar. Body mass index (BMI) 35 or more. Breast mass, left. Cataract, left eye. Essential (primary) hypertension. Hyperlipidemia. Obesity. RAY (obstructive sleep apnea). Palpitations Symptoms: Low back pain. bilateral shoulder pain. Bilateral knee pain. bilateral hip pain. headaches. balance. sleep interruption. LE edema controlled with compression socks Pain: Pt reports current pain level is 4/10. with medication. 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 Pt states he last worked in 2015. pt states he could not continue working safety. Work related tasks included, kneeling, stooping, squatting, crawling, pushing, pulling and lifting. pt is unable to perform tasks safety. Behavioral: pt was cooperative during assessment and put forth good effort. ADLS: Lives alone 1 story house w/ basement. 2 steps to enter with ramp entrance with 2 handrail. Ramp from living room into the kitchen. Steps to basement has [id number] full flight. Pt has straight cane to assist with ambulation and balance. Tub/shower, grab bars, HHS, std toilet seat with handrails. Completes own cooking, drives, cares for dog and able to carry dog food on his own short distance. Completes own grocery shopping holds onto cart, carries groceries from car to porch to house slowly to be careful. Does clean yard and mow. Physical Examination: pt arrives with straight cane. compression sock below knee. resting heart rate 63 ROM: R UE WFL. L UE limited ROM, L shoulder flexion 0/105', shoulder abduction 0/94', elbow 0/135', external rotation 0/20', internal rotation 0/30'. BLE WFL. Strength: R UE 5/5. left UE 4/5. right LE 4/5. left LE 4/5 Right Pharmacy Graduate Intern Strength Average: 70.00 Right Pharmacy Graduate Intern Strength Percentile: 11% Left Pharmacy Graduate Intern Strength Average: 68.33 Left Pharmacy Graduate Intern Strength Percentile: 11.5% Right Lateral Pinch Average: 10.00 Right Lateral Pinch Percentile: <10% Left Lateral Pinch Average: 10.00 Left Lateral Pinch Percentile: <10% Right Tripod Pinch Average: 10.00 Right Tripod Pinch Percentile: <10% Left Tripod Pinch Average: 10.00 Left Tripod Pinch Percentile: <10% Sensation: denies Fine Motor: denies Balance: No noted loss of balance during assessment. Pt demo with good balance. Bending: pt demonstrated the ability to bend forward 3/3 heart rate 71. bend forward 7/10. pt reported pain 8/10 low back. pt can bend forward on a low occasional ability Squatting: pt demonstrated the ability to squat 3/3 in limited motion with external support. pt can squat on a low occasional ability with external support. Kneeling: pt attempted kneeling but was unable. pt has no ability to kneel Reaching out/up: pt demonstrated the ability to reach up right UE 3/3, right 8/10 and right 8/10 rapidly. pt was unable to reach up with left UE due to limited motion. pt was able to reach out with bilateral UE 3/3, 9/10. pt unable to perform 10/10. pain was 8/10 low back and left shoulder. pt can reach out with bilateral UE on a occasional ability. pt can reach up on left UE no ability. pt can reach up with right UE on occasional ability Walking: pt ambulated with a reciprocal step pattern with use of straight cane 550 feet total. Pt stopped 6 times during this distance for 1-2 min at a time. pt states Knees, low back and hips are most painful at 8/10. pt can ambulate on an occasional ability with the ability to rest when needed and use of adaptive devise as his straight cane. Standing: pt demonstrated the ability to stand 6 shift body weight- pt can stand on a low occasional ability Sitting: pt demonstrated the ability to sit for 40 min with no apparent discomfort. pt can sit on a frequent ability. Climbing Stairs: Pt ascended and descended 10 steps with a reciprocal step pattern and use of bilateral handrails . Floor Lift: pt demonstrated the ability to lift 40# maximally from this level. pt did use good lifting mechanics. Pt c/o bilateral knee, hip and low back pain at 8/10. Knee Lift: pt demonstrated the ability to lift 40# maximally from this level. pt did use good lifting mechanics. Pt c/o bilateral knee, hip and low back pain at 8/10. Waist Lift: pt demonstrated the ability to lift 35# maximally from this level. pt did use good lifting mechanics. Pt c/o bilateral knee, hip and low back pain at 8/10. Shoulder Lift: pt demonstrated the ability to lift 30# maximally from this level. pt did use good lifting mechanics. Pt c/o bilateral knee, hip and low back pain at 8/10. Overhead Lift: unable Carrying: pt was able to carry 25# for 15 feet. Comments: pt demo limited left shoulder ROM this limits overhead lifting. Pain limiting factor with pts ability reported 8/10 pain and required frequent breaks or rest during assessment.
--- NOTE | 2020-12-27 07:45 | HP.OTFCE.D ---
FCE D/C Summary - Discharge MELIZA KELLEY was seen for a one time visit for an FCE on 12/26/20 and is discharged.
== END 2020-12-26 19:00 | disposition home or self-care (01) ==
LOC: OT 13:01
PROVIDERS: PCP Family Medicine; Referring Provider Family Medicine; Visit Provider Family Medicine
DX: R53.81 Other malaise (principal)
CPT/HCPCS: 97750

== ENCOUNTER 2020-12-28 13:49 | Outpatient (RCR) | payer MEDICARE, SELFPAY ==
[2020-03-14 13:47] VITALS: BMI 49.0
== END 2020-12-28 13:50 | disposition home or self-care (01) ==
LOC: PT 13:49
PROVIDERS: PCP Family Medicine; Referring Provider Family Medicine; Visit Provider Family Medicine
DX: R69 Illness, unspecified (principal)

== ENCOUNTER → 2021-01-03 12:26 | Outpatient (CLI) | payer MEDICARE, SELFPAY ==
--- NOTE | 2021-01-03 12:43 | MRI_ITS ---
STUDY: MRI BRAIN WITH AND WITHOUT CONTRAST REASON FOR EXAM: Male, 55 years old. OPTIC NEUROPATHY, BRADSHAW, balance issues TECHNIQUE: Standardized multiplanar fat and water weighted pulse sequences were obtained. Diffusion-weighted imaging with ADC map and gradient echo images of the entire brain were also obtained. Additional smaller field of view thin slice coronal T2-weighted images through the orbits and precontrast T1 axial weighted images through the orbits and postcontrast enhanced axial and coronal T1 fat sat images of the orbits. 30ml IV Dotarem was administered for the contrast portion of the examination. COMPARISON: None. FINDINGS: Normal size of the ventricles and extra-axial spaces for the patient''s age. Scattered areas of periventricular white matter increased T2 and FLAIR signal most likely representing chronic small vessel ischemic changes. No restricted diffusion. Normal bilateral basal ganglia. Normal thalami. There is no extra-axial fluid accumulation. Normal flow voids within the major intracranial circulation suggesting patency by spin echo criteria. Normal venous enhancement. There is no enhancing intra-axial or extra-axial abnormality. Entrapped CSF signal resulting in a partially empty sella appearance. There is otherwise normal sella turcica, pituitary gland, infundibular stalk, optic chiasm and hypothalamus. Normal tectal plate and pineal gland. Normal midbrain, lupis and medulla. Normal cerebellum. Normal basal cisterns. Normal bilateral temporal bones. Normal bilateral internal auditory canals. Normal visualized paranasal sinuses. Normal calvarium and skull base. Normal visualized soft tissue structures. Normal visualized upper cervical spine. There is no optic nerve abnormal enhancement. Right and left globe are normal in appearance. Extraorbital muscles are symmetric and normal in size. Right superior ophthalmic vein is asymmetrically larger than the left and shows a tortuous course, especially distally. It is still within normal size limits and clinical significance of this finding is unclear with normal appearance of the cavernous sinuses; no evidence of sinus fibrosis. MRI/Brain W/WO Contrast IMPRESSION: No evidence of optic neuritis. Scattered periventricular white matter areas of increased T2 and FLAIR signal likely representing chronic small vessel ischemic changes. Atypical distribution for neuromyelitis optica which cannot be completely excluded. Asymmetric tortuosity and mild asymmetric prominence right superior ophthalmic vein compared to the left, still within normal size limits. This finding is of questionable clinical significance with no evidence of cavernous sinus thrombosis. Electronically Signed: Samm Chan DO at 21:52 EDT Tel , Service support ,
== END ==
PROVIDERS: PCP Family Medicine; Referring Provider Ophthalmology; Visit Provider Ophthalmology
DX: H47.012 Ischemic optic neuropathy, left eye (principal); R51.9 Headache, unspecified
CPT/HCPCS: 70553; A9575

== ENCOUNTER → 2021-01-22 13:02 | Outpatient (CLI) | payer MEDICARE, SELFPAY ==
[2021-01-22 15:23] LABS: Absolute Lymphocyte Count 2.39 X10^3/uL (0.83-4.51); Absolute Neutrophil Count 4.4 X10^3/uL (2.0-7.7); Basophil# 0.04 X10^3/uL; Basophil% 0.5 % (0-1); Eosinophil# 0.11 X10^3/uL; Eosinophils% 1.4 % (0-5); Hematocrit 44.7 % (40-54); Hemoglobin 14.3 g/dL (13.0-16.5); Lymphocyte # 2.39 X10^3/ul (0.83-4.51); Lymphocyte % 31.4 % (19-41); Mean Corpuscular Hgb 29.4 pg (27.0-32.0); Mean Corpuscular Volume 91.8 fL (80-94); Mean Platelet Vol. 11.3 fl (6.2-12.0); Monocyte# 0.65 X10^3/uL; Monocyte% 8.6 % (0-10); NRBC Flagged by Analyzer 0 % (0-5); Neutrophil # 4.38 X10^3/uL (2.7-7.7); Neutrophil % 57.7 % (47-70); Platelet Count 239 K/mm3 (150-450); RBC Distribution Width CV 13.4 % (11.6-14.6); RBC Distribution Width SD 45.6 fl (35.1-43.9); Red Blood Count 4.87 M/mm3 (4.6-6.2); White Blood Count 7.6 K/mm3 (4.4-11.0)
[2021-01-22 15:49] LABS: AST(SGOT) 23 U/L (15-37); Alanine Aminotransfer ALT/SGPT 36 U/L (16-61); Albumin, Serum 3.7 g/dL (3.2-5.0); Alkaline Phosphatase 57 U/L (45-117); Anion Gap 7 (5-15); BUN 14 mg/dL (7-18); BUN/Creat Ratio 15.9 RATIO (10-20); Calcium,Total 9.1 mg/dL (8.5-10.1); Chloride 101 mmol/L (98-107); Creatinine, Serum 0.88 mg/dL (0.70-1.30); EST Glomerular Filtration Rate 96 mL/min (>60); Est Glom Filt Rate - Afr Amer 116 mL/min (>60); Globulin 3.6 g/dL (2.2-4.2); Glucose 102 mg/dL (74-106); Potassium 4.6 mmol/L (3.5-5.1); Protein, Total 7.3 g/dL (6.4-8.2); Sodium Level 138 mmol/L (136-145)
== END ==
PROVIDERS: PCP Family Medicine; Referring Provider Family Medicine; Visit Provider Family Medicine
DX: E88.81 Metabolic syndrome and other insulin resistance (principal); E66.01 Morbid (severe) obesity due to excess calories; Z68.43 Body mass index [BMI] 50.0-59.9, adult
CPT/HCPCS: 36415; 80053; 85025

== ENCOUNTER 2021-06-17 09:45 | Day surgery (SDC) | payer MEDICARE, SELFPAY ==
[2021-06-17] VITALS (7 sets, daily range): BP systolic 132–177; BP diastolic 74–92; PULSE 58–67; RESP 14–16; TEMP 36.8–37.2; O2SAT 92–95; BMI 50.5
[2021-06-17] MEDS: Lactated Ringers 1,000 ML 15 ML IV (10:44)
--- NOTE | 2021-06-17 10:50 | RAD_ITS ---
STUDY: INTRAOPERATIVE FLUOROSCOPY TECHNIQUE: The examination was performed with referring physician in attendance. Under fluoroscopic observation, fluoroscopic images were obtained. Radiologist was not present for the study. Radiologist did not perform the procedure. This dictation is for documentation of the radiation dosage only. There is no interpretation of the images. TOTAL NUMBER OF IMAGES: 1 COMPARISON: None RADIATION DOSE: 3.8 mGy FLUOROSCOPY TIME: 5.8 seconds REASON FOR EXAM: HIP INJECTION Male, 56 years old. FINDINGS: Fluoroscopic images of the right hip demonstrate contrast around the hip joint. RAD/Fluoro Guided Needle Placement IMPRESSION: Fluoroscopic assistance images were obtained. Dictation for documentation purposes only. Electronically Signed: Kleber Wheeler MD at 16:57 EST ,
[2021-06-17] MEDS: Lidocaine 1% (5 ml sdv) 5 ML Vial (10:53)
[2021-06-17] MEDS: MethylPREDNISolone Acetate 80 MG/ML Vial (10:53)
[2021-06-17] MEDS: Bupivacaine 0.25% 30 ML Vial (10:53)
--- NOTE | 2021-06-17 11:26 | PCM.OPRPT ---
Report of Operation Date of Procedure: 06/17/21 Description of Surgical Findings:: PREOPERATIVE DIAGNOSIS: Osteoarthritis of the right hip POSTOPERATIVE DIAGNOSIS: Osteoarthritis of the right hip PROCEDURE PERFORMED: Right hip intraarticular steroid injection under fluoroscopy guidance. ANESTHESIA: MAC. BLOOD LOSS: Minimal. COMPLICATIONS: None. DESCRIPTION OF PROCEDURE: History and physical of today was reviewed. Risks and benefits of the procedure were explained. The patient understood and agreed to proceed. Informed consent was obtained. IV inserted per routine protocol. The patient was taken to the operating room and placed in the supine position. The right hip area was prepped and draped in a sterile fashion using iodine x3. Under fluoroscopy guidance on AP view, the right hip joint was visualized. The skin and subcutaneous tissue was anesthetized with approximately 3 mL of 1% lidocaine using a 25-gauge regular needle approximately 3 cm cephalad to the right greater trochanter. Under direct visualization with fluoroscopy on an AP view, using a 22-gauge 5-inch spinal needle, the needle was advanced via the skin using the lateral approach. The tip of the needle was maneuvered and directed towards the superiormost aspect of the hip joint. Once the tip of the needle was at the vicinity of the joint, after negative aspiration for blood and positive aspiration of synovial fluid, a total of 1 mL of contrast was injected to confirm correct placement of the needle as well as halo spread around the hip joint. After repeated negative aspiration for blood and confirmation on AP as well as oblique view, a total of 10 mL of preservative-free 0.25% Marcaine with 80 mg of Depo-Medrol was injected easily. The needle was then removed intact. The patient experienced no sign or symptoms of intrathecal or intravascular injection. The patient experienced no paresthesia. The procedure was completed without any apparent difficulty or any complications. The patient appeared to tolerate it well. ASSESSMENT AND PLAN: This is a 56-year-old male with osteoarthritis of the right hip status post right hip intra-articular steroid injection under fluoroscopic guidance, patient will continue his current medications, patient will follow in approximately 2 weeks for reevaluation.
== END 2021-06-17 23:59 | disposition home or self-care (01) ==
LOC: SDC 09:53 → AC 09:56
PROVIDERS: PCP Family Medicine; Referring Provider Anesthesiology Pain Medicine; Visit Provider Anesthesiology Pain Medicine
PROC: 3E0U3GC Introduction of Other Therapeutic Substance into Joints, Percutaneous Approach (ICD-10-PCS; CPT 20610; principal; 2021-06-17 11:05)
DX: M16.11 Unilateral primary osteoarthritis, right hip (principal); F31.9 Bipolar disorder, unspecified; I10 Essential (primary) hypertension; E78.5 Hyperlipidemia, unspecified; G47.33 Obstructive sleep apnea (adult) (pediatric); M54.2 Cervicalgia; M16.12 Unilateral primary osteoarthritis, left hip; M47.812 Spondylosis without myelopathy or radiculopathy, cervical region; M25.511 Pain in right shoulder
CPT/HCPCS: 20610; 76000; 77002; J7120

== ENCOUNTER → 2022-03-15 | Outpatient (CLI) | payer MEDICARE, SELFPAY ==
--- NOTE | 2022-03-15 09:02 | MRI_ITS ---
EXAM: MR LEFT UPPER EXTREMITY WITHOUT INTRAVENOUS CONTRAST, SHOULDER CLINICAL INDICATION: shoulder pain, plan for surgery, rule out RC tear - TECHNIQUE: Multiplanar and multisequence MR images of the left shoulder without intravenous contrast. This report was created using [employer] report generation technology. COMPARISON: October 30, 2018 MRI left shoulder. FINDINGS: TENDONS: SUPRASPINATUS: No supraspinatus tendon tear. INFRASPINATUS: No infraspinatus tendon. SUBSCAPULARIS: Unremarkable. Intact. TERES MINOR: Unremarkable. Intact. BICEPS BRACHII, LONG HEAD: Long head of the biceps tendon is normal in position and appearance. The extra-articular biceps tendon is in the bicipital groove. LIGAMENTS: GLENOHUMERAL: Unremarkable. Intact. CORACOACROMIAL: Type I acromion with flat undersurface. No subacromial enthesophyte or coracoacromial ligament thickening. MUSCLES: Unremarkable. No rotator cuff muscle atrophy. FLUID: Small amount of fluid in the subacromial/subdeltoid bursa can be seen with bursitis. No joint effusion. CARTILAGE: Unremarkable. Articular cartilage intact. GLENOID LABRUM: No labral tear. BONES/JOINTS: At least moderate hypertrophic degenerative changes at involving the glenohumeral joint with large inferomedial osteophyte of the humeral head. Moderate degenerative changes of the acromioclavicular joint with mild mass effect on the underlying soft tissues. No os acromiale. Susceptibility artifact from hardware identified at the humeral head. No fracture. No abnormal bone marrow signal. OTHER SOFT TISSUES: Small amount of fluid at the axillary pouch with synovitis. MRI/Upper Ext Joint Only(Routine) IMPRESSION: 1. Small amount of fluid in the subacromial/subdeltoid bursa can be seen with bursitis. 2. Small amount of fluid at the axillary pouch with synovitis. 3. At least moderate hypertrophic degenerative changes at involving the glenohumeral joint with large inferomedial osteophyte of the humeral head. Electronically Signed: Husam Haywood MD at 20:25 EST ,
--- NOTE | 2022-03-15 09:02 | CT_ITS ---
STUDY: CT LEFT SHOULDER REASON FOR EXAM: Male, 56 years old. 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 Repeated for possible motion RADIATION DOSAGE (If Supplied By Facility): CTDIvol = ( 62.33 ) mGy, DLP = ( 3350.50 ) mGycm TECHNIQUE: The patient was scanned in a multi detector CT scanner. High resolution transaxial imaging was performed without the administration of intravenous contrast material. Sagittal and coronal images were reconstructed. Individualized dose optimization techniques were used for this CT. COMPARISON: None. FINDINGS: There is severe osteoarthritis, with severe articular joint space narrowing, osteoarthritic spurring, articular remodeling, and with articular erosions. There is a large inferomedial osteophyte of the humeral head. Metallic clip is seen in the humeral head suggestive of prior rotator cuff surgery. Normal glenoid rim, neck and visualized scapula. Normal coracoid process. Normal visualized lateral clavicle. There is moderate osteoarthritis with articular joint space narrowing and with osteoarthritic spurring. There is a Type II morphology (curved), with a neutral orientation. Normal visualized muscles and soft tissue structures. CT/Extremity Upper without Contra IMPRESSION: Marked degree of joint space narrowing of the glenohumeral joint with a large osteophyte along the inferior medial aspect of the humeral head. This prominence of the greater tuberosity as well. Findings suggestive of prior rotator cuff surgery. Electronically Signed: Daniel Torres MD at 8:52 EST ,
== END | disposition home or self-care (01) ==
PROVIDERS: PCP Family Medicine; Referring Provider Orthopaedic Surgery Sports Medicine; Visit Provider Orthopaedic Surgery Sports Medicine
DX: M19.012 Primary osteoarthritis, left shoulder (principal); M25.512 Pain in left shoulder
CPT/HCPCS: 73200; 73221

== ENCOUNTER 2022-03-17 12:01 | Day surgery (SDC) | payer MEDICARE, SELFPAY ==
[2022-03-17] MEDS: Lactated Ringers 1,000 ML 15 ML IV (12:05)
[2022-03-17 12:30] VITALS: BP 144/79; PULSE 63; RESP 18; TEMP 36.9; O2SAT 93; BMI 50.5
--- NOTE | 2022-03-17 12:50 | RAD_ITS ---
EXAM: FL FLUOROSCOPY < 1 HOUR CLINICAL INDICATION: RT HIP INJECTION TECHNIQUE: Fluoroscopic images performed in multiple projections. Fluoroscopic guidance was provided by a physician. This report was created using [employer] report generation technology. COMPARISON: None. FINDINGS: Degenerative narrowing and bony spurring of the hip joint. No acute fracture. No dislocation. Single view of the right hip obtained with fluoroscopy for needle placement. Fluoroscopy time of 5 seconds. See operative note for additional information. RAD/Fluoro Guided Needle Placement IMPRESSION: As above. Electronically Signed: Nato Lerma MD at 16:51 EST ,
[2022-03-17] MEDS: Bupivacaine 0.25% 30 ML Vial (14:27)
[2022-03-17] MEDS: Lidocaine 1% (30 ml sdv) 30 ML Vial (14:27)
[2022-03-17] MEDS: MethylPREDNISolone Acetate 80 MG/ML Vial (14:27)
--- NOTE | 2022-03-17 14:32 | PCM.OPRPT ---
Report of Operation Date of Procedure: 03/17/22 Description of Surgical Findings:: PREOPERATIVE DIAGNOSIS: Osteoarthritis of the right hip POSTOPERATIVE DIAGNOSIS: Osteoarthritis of the right hip PROCEDURE PERFORMED: Right hip intraarticular steroid injection under fluoroscopy guidance. ANESTHESIA: MAC. BLOOD LOSS: Minimal. COMPLICATIONS: None. DESCRIPTION OF PROCEDURE: History and physical of today was reviewed. Risks and benefits of the procedure were explained. The patient understood and agreed to proceed. Informed consent was obtained. IV inserted per routine protocol. The patient was taken to the operating room and placed in the supine position. The right hip area was prepped and draped in a sterile fashion using iodine x3. Under fluoroscopy guidance on AP view, the right hip joint was visualized. The skin and subcutaneous tissue was anesthetized with approximately 3 mL of 1% lidocaine using a 25-gauge regular needle approximately 3 cm cephalad to the right greater trochanter. Under direct visualization with fluoroscopy on an AP view, using a 22-gauge 5-inch spinal needle, the needle was advanced via the skin using the lateral approach. The tip of the needle was maneuvered and directed towards the superiormost aspect of the hip joint. Once the tip of the needle was at the vicinity of the joint, after negative aspiration for blood and positive aspiration of synovial fluid, a total of 1 mL of contrast was injected to confirm correct placement of the needle as well as halo spread around the hip joint. After repeated negative aspiration for blood and confirmation on AP as well as oblique view, a total of 10 mL of preservative-free 0.25% Marcaine with 80 mg of Depo-Medrol was injected easily. The needle was then removed intact. The patient experienced no sign or symptoms of intrathecal or intravascular injection. The patient experienced no paresthesia. The procedure was completed without any apparent difficulty or any complications. The patient appeared to tolerate it well. ASSESSMENT AND PLAN: This is a 56-year-old male with osteoarthritis of the right hip status post right hip intra-articular steroid injection under fluoroscopic guidance, patient will continue his current medications, patient will continue his current medications, patient will follow in approximately 2 weeks for reevaluation.
[2022-03-17 14:35] VITALS: BP 120/87; BP 144/79; PULSE 68; RESP 16; TEMP 36.3; O2SAT 95
[2022-03-17 14:40] VITALS: BP 135/85; BP 144/79; PULSE 66; RESP 16; O2SAT 95
[2022-03-17 14:45] VITALS: BP 134/81; BP 144/79; PULSE 69; RESP 16; O2SAT 96
[2022-03-17 14:50] VITALS: BP 144/79; BP 144/83; PULSE 66; RESP 16; TEMP 36.6; O2SAT 94
[2022-03-17 15:15] VITALS: BP 144/79
== END 2022-03-17 15:17 | disposition home or self-care (01) ==
LOC: SDC 12:02 → AC 12:04
PROVIDERS: PCP Family Medicine; Referring Provider Anesthesiology Pain Medicine; Visit Provider Anesthesiology Pain Medicine
PROC: 3E0U3GC Introduction of Other Therapeutic Substance into Joints, Percutaneous Approach (ICD-10-PCS; CPT 20610; principal; 2022-03-17 13:45)
DX: M16.11 Unilateral primary osteoarthritis, right hip (principal); F31.9 Bipolar disorder, unspecified; I10 Essential (primary) hypertension; I25.10 Atherosclerotic heart disease of native coronary artery without angina pectoris; Z79.899 Other long term (current) drug therapy
CPT/HCPCS: 20610; 01120; 76000; 77002; J7120

== ENCOUNTER → 2022-05-20 | Outpatient (CLI) | payer MEDICARE, SELFPAY ==
[2022-05-20 17:58] LABS: Absolute Lymphocyte Count 2.37 X10^3/uL (0.83-4.51); Absolute Neutrophil Count 5.7 X10^3/uL (2.0-7.7); Basophil# 0.07 X10^3/uL; Basophil% 0.8 % (0-1); Eosinophils% 3.3 % (0-5); Hematocrit 46.3 % (40-54); Lymphocyte # 2.37 X10^3/ul (0.83-4.51); Lymphocyte % 25.7 % (19-41); Mean Corp Hgb Conc 32.4 g/dL (32-36); Mean Corpuscular Hgb 30.2 pg (27.0-32.0); Mean Corpuscular Volume 93.3 fL (80-94); Mean Platelet Vol. 11.1 fl (6.2-12.0); Monocyte# 0.68 X10^3/uL; Monocyte% 7.4 % (0-10); NRBC Flagged by Analyzer 0 % (0-5); Neutrophil # 5.74 X10^3/uL (2.7-7.7); Platelet Count 283 K/mm3 (150-450); RBC Distribution Width CV 12.8 % (11.6-14.6); RBC Distribution Width SD 43.8 fl (35.1-43.9); Red Blood Count 4.96 M/mm3 (4.6-6.2); White Blood Count 9.2 K/mm3 (4.4-11.0)
[2022-05-20 18:59] LABS: ALB/GLOB Ratio 1.4 RATIO (0.9-2.4); AST(SGOT) 23 U/L (15-37); Alanine Aminotransfer ALT/SGPT 53 U/L (16-61); Alkaline Phosphatase 69 U/L (45-117); Anion Gap 8 (5-15); BUN 17 mg/dL (7-18); BUN/Creat Ratio 17.2 RATIO (10-20); Calcium,Total 9.1 mg/dL (8.5-10.1); Chloride 104 mmol/L (98-107); Creatinine, Serum 0.99 mg/dL (0.70-1.30); EST Glomerular Filtration Rate 83 mL/min (>60); Est Glom Filt Rate - Afr Amer 100 mL/min (>60); Globulin 2.9 g/dL (2.2-4.2); Glucose 83 mg/dL (74-106); Protein, Total 6.9 g/dL (6.4-8.2); Sodium Level 140 mmol/L (136-145); Thyroid Stim Hormone (TSH) 2.66 uIU/mL (0.358-3.74)
== END | disposition home or self-care (01) ==
LOC: MFPLAB 14:31
PROVIDERS: PCP Family Medicine; Referring Provider Family Medicine; Visit Provider Family Medicine
DX: I10 Essential (primary) hypertension (principal); F31.9 Bipolar disorder, unspecified
CPT/HCPCS: 36415; 80053; 80178; 84443; 85025

== ENCOUNTER → 2022-05-27 | Outpatient (CLI) | payer MEDICARE, SELFPAY ==
[2022-05-27 14:37] LABS: Prothrombin Time (Protime)PT. 12.8 SECONDS (11.7-14.9)
[2022-05-27 14:38] LABS: Partial Thromboplast Time 27.6 Seconds (24.1-36.2)
[2022-05-27 14:44] LABS: Hemoglobin A1c 5.7 % (3.8-5.6)
[2022-05-27 14:51] LABS: Magnesium 2.3 mg/dL (1.6-2.6)
[2022-05-29 15:22] LABS: Fructosamine 253 umol/L (0-285)
== END | disposition home or self-care (01) ==
LOC: PAT 06-23 13:30
PROVIDERS: Anesthesiology; PCP Family Medicine; Referring Provider Orthopaedic Surgery Sports Medicine; Visit Provider Orthopaedic Surgery Sports Medicine
DX: Z01.818 Encounter for other preprocedural examination (principal)
CPT/HCPCS: 36415; 82985; 83036; 83735; 85610; 85730; 86850; 86900; 86901; 87081; J3475

== ENCOUNTER → 2022-06-16 | Outpatient (CLI) | payer MEDICARE, SELFPAY ==
[2022-06-16 15:33] LABS: Absolute Lymphocyte Count 2.15 X10^3/uL (0.83-4.51); Absolute Neutrophil Count 5.1 X10^3/uL (2.0-7.7); Basophil# 0.06 X10^3/uL; Basophil% 0.7 % (0-1); Eosinophil# 0.36 X10^3/uL; Eosinophils% 4.3 % (0-5); Hematocrit 44.2 % (40-54); Hemoglobin 13.8 g/dL (13.0-16.5); Lymphocyte # 2.15 X10^3/ul (0.83-4.51); Lymphocyte % 25.8 % (19-41); Mean Corp Hgb Conc 31.2 g/dL (32-36); Mean Corpuscular Volume 96.1 fL (80-94); Mean Platelet Vol. 11.2 fl (6.2-12.0); Monocyte# 0.65 X10^3/uL; Monocyte% 7.8 % (0-10); NRBC Flagged by Analyzer 0 % (0-5); Neutrophil # 5.05 X10^3/uL (2.7-7.7); Neutrophil % 60.7 % (47-70); Platelet Count 262 K/mm3 (150-450); RBC Distribution Width CV 12.9 % (11.6-14.6); RBC Distribution Width SD 45.8 fl (35.1-43.9); White Blood Count 8.3 K/mm3 (4.4-11.0)
[2022-06-16 15:53] LABS: ALB/GLOB Ratio 1.3 RATIO (0.9-2.4); AST(SGOT) 35 U/L (15-37); Alanine Aminotransfer ALT/SGPT 61 U/L (16-61); Alkaline Phosphatase 61 U/L (45-117); Anion Gap 6 (5-15); BUN 11 mg/dL (7-18); BUN/Creat Ratio 11.2 RATIO (10-20); Calcium,Total 9.2 mg/dL (8.5-10.1); Chloride 104 mmol/L (98-107); Creatinine, Serum 0.98 mg/dL (0.70-1.30); EST Glomerular Filtration Rate 84 mL/min (>60); Est Glom Filt Rate - Afr Amer 101 mL/min (>60); Globulin 3.1 g/dL (2.2-4.2); Glucose 101 mg/dL (74-106); Potassium 4.1 mmol/L (3.5-5.1); Protein, Total 7.1 g/dL (6.4-8.2); Sodium Level 140 mmol/L (136-145)
[2022-06-20 10:09] LABS: Testosterone, Free 4.85 ng/dL (5.00-21.00)
[2022-06-20 19:49] LABS: Testosterone, Total 255 ng/dL (264-916)
== END | disposition home or self-care (01) ==
LOC: MFPLAB 12:26
PROVIDERS: PCP Family Medicine; Visit Provider Family Medicine
DX: I10 Essential (primary) hypertension (principal); N52.9 Male erectile dysfunction, unspecified
CPT/HCPCS: 36415; 80053; 84402; 84403; 85025

== ENCOUNTER 2022-09-29 10:34 | Day surgery (SDC) | payer MEDICARE, SELFPAY ==
[2022-09-29] VITALS (7 sets, daily range): BP systolic 130–166; BP diastolic 69–104; PULSE 69–75; RESP 16–20; TEMP 36.7–37.6; O2SAT 92–94; BMI 52.8
[2022-09-29] MEDS: Lactated Ringers 1,000 ML 15 ML IV (11:17)
--- NOTE | 2022-09-29 11:30 | RAD_ITS ---
EXAM: XR RIGHT HIP WITH PELVIS WHEN PERFORMED, 1 VIEW CLINICAL INDICATION: RT HIP INJECTION TECHNIQUE: Frontal view of the right hip with pelvis when performed. RADIATION DOSE: 1 Spot film provided, dose not labeled on image, 112 KV AP, 5.13 mA. COMPARISON: No relevant prior studies available. FINDINGS: Tip of a thin catheter at or just deep to the the superior-lateral joint capsule. Single fluoroscopic view of the right hip. RAD/Fluoro Guided Needle Placement IMPRESSION: Real-time exam. Electronically Signed: Chiquis Pettit MD at 7:44 EDT ,
[2022-09-29] MEDS: Lidocaine 1% (5 ml sdv) 5 ML Vial (11:48)
[2022-09-29] MEDS: MethylPREDNISolone Acetate 80 MG/ML Vial (11:49)
--- NOTE | 2022-09-29 12:18 | PCM.OPRPT ---
Report of Operation Date of Procedure: 09/29/22 Description of Surgical Findings:: PREOPERATIVE DIAGNOSIS: Osteoarthritis of the right hip POSTOPERATIVE DIAGNOSIS: Osteoarthritis of the right hip PROCEDURE PERFORMED: Right hip arthrography, right hip intraarticular steroid injection under fluoroscopy guidance. ANESTHESIA: MAC. BLOOD LOSS: Minimal. COMPLICATIONS: None. DESCRIPTION OF PROCEDURE: History and physical of today was reviewed. Risks and benefits of the procedure were explained. The patient understood and agreed to proceed. Informed consent was obtained. IV inserted per routine protocol. The patient was taken to the operating room and placed in the supine position. The right hip area was prepped and draped in a sterile fashion using iodine x3. Under fluoroscopy guidance on AP view, the right hip joint was visualized. The skin and subcutaneous tissue was anesthetized with approximately 3 mL of 1% lidocaine using a 25-gauge regular needle approximately 3 cm cephalad to the right greater trochanter. Under direct visualization with fluoroscopy on an AP view, using a 22-gauge 5-inch spinal needle, the needle was advanced via the skin using the lateral approach. The tip of the needle was maneuvered and directed towards the superiormost aspect of the hip joint. Once the tip of the needle was at the vicinity of the joint, after negative aspiration for blood and positive aspiration of synovial fluid, a total of 5 mL of contrast was injected to confirm correct placement of the needle as well as halo spread around the hip joint. After repeated negative aspiration for blood and confirmation on AP as well as oblique view, a total of 10 mL of preservative-free 0.25% Marcaine with 80 mg of Depo-Medrol was injected easily. The needle was then removed intact. The patient experienced no sign or symptoms of intrathecal or intravascular injection. The patient experienced no paresthesia. The procedure was completed without any apparent difficulty or any complications. The patient appeared to tolerate it well. ASSESSMENT AND PLAN: This is a 57-year-old male with osteoarthritis of the right hip status post right hip arthrography, right hip intra-articular steroid injection under fluoroscopic guidance, patient will continue his current medications, patient will follow in approximately 2 weeks for reevaluation.
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
== END 2022-09-29 12:44 | disposition home or self-care (01) ==
LOC: SDC 10:44 → AC 10:48
PROVIDERS: PCP Family Medicine; Referring Provider Anesthesiology Pain Medicine; Visit Provider Anesthesiology Pain Medicine
PROC: 3E0U3GC Introduction of Other Therapeutic Substance into Joints, Percutaneous Approach (ICD-10-PCS; CPT 20610; principal; 2022-09-29 12:25)
DX: M16.0 Bilateral primary osteoarthritis of hip (principal); F31.9 Bipolar disorder, unspecified; Z68.43 Body mass index [BMI] 50.0-59.9, adult; M51.36 Other intervertebral disc degeneration, lumbar region; M47.812 Spondylosis without myelopathy or radiculopathy, cervical region; M51.17 Intervertebral disc disorders with radiculopathy, lumbosacral region; M25.511 Pain in right shoulder; I10 Essential (primary) hypertension; E78.00 Pure hypercholesterolemia, unspecified; G89.29 Other chronic pain; Z91.199 Patient's noncompliance with other medical treatment and regimen due to unspecified reason; M47.816 Spondylosis without myelopathy or radiculopathy, lumbar region; E66.9 Obesity, unspecified; Z79.1 Long term (current) use of non-steroidal anti-inflammatories (NSAID); Z79.899 Other long term (current) drug therapy
CPT/HCPCS: 20610; 01991; 76000; 77002; J7120

== ENCOUNTER → 2022-10-08 | Outpatient (CLI) | payer MEDICARE, SELFPAY ==
[2022-10-08 08:17] LABS: Glucose GTT-30 minutes 184 mg/dL (110-170)
[2022-10-08 08:23] LABS: Glucose GTT- Fasting 110 mg/dL (74-106)
[2022-10-08 08:54] LABS: Glucose GTT- 1 Hour 171 mg/dL (120-170)
[2022-10-08 09:52] LABS: Glucose GTT- 2 Hour 94 mg/dL (70-120)
[2022-10-08 11:51] LABS: Glucose GTT- 4 Hour 93 mg/dL (74-106)
[2022-10-08 11:54] LABS: Glucose GTT- 3 Hour 81 mg/dL (74-106)
[2022-10-08 12:54] LABS: Glucose GTT- 5 Hour 97 mg/dL (74-106)
== END | disposition home or self-care (01) ==
LOC: LAB 06:46
PROVIDERS: PCP Family Medicine; Referring Provider Family Medicine; Visit Provider Family Medicine
DX: R53.81 Other malaise (principal); E66.01 Morbid (severe) obesity due to excess calories; Z68.43 Body mass index [BMI] 50.0-59.9, adult; E88.81 Metabolic syndrome and other insulin resistance
CPT/HCPCS: 36415; 82951; 82952; 83525

== ENCOUNTER 2023-01-12 19:07 | Inpatient (IN) | payer MEDICARE, SELFPAY ==
[2023-01-12 19:08] VITALS: BP 143/90; PULSE 68; RESP 18; TEMP 36.7; O2SAT 97
[2023-01-12 19:10] VITALS: BMI 46.4
--- NOTE | 2023-01-12 19:59 | CT_ITS ---
STUDY: CT BRAIN WITHOUT CONTRAST REASON FOR EXAM: Male, 57 years old. confused RADIATION DOSAGE (If Supplied By Facility): CTDIvol = ( 44.99 ) mGy, DLP = ( 846.73 ) mGycm TECHNIQUE: Transaxial CT imaging of the brain was performed without administration of intravenous contrast material. Individualized dose optimization techniques were used for this CT. COMPARISON: No relevant priors. FINDINGS: Normal soft tissue structures. Normal calvarium. Normal size ventricles and extra-axial spaces for the patient''s age. There are areas of decreased attenuation within the white matter tracts of the supratentorial brain, consistent with microvascular disease changes. Normal basal ganglia and thalami. Normal brainstem. Coarse calcification within the cerebellum bilaterally. There is no intracranial hemorrhage. There are no findings of an acute ischemic infarction. Normal visualized paranasal sinuses. CT/Brain/Head without Contrast IMPRESSION: Nonspecific Nonspecific coarse calcifications within the cerebellum bilaterally. No acute disease. Electronically Signed: Kemar Dao MD at 20:45 EDT ,
--- NOTE | 2023-01-12 20:00 | EKG12_ITS ---
Test Reason : CONFUSION Blood Pressure : / mmHG Vent. Rate : 065 BPM Atrial Rate : 065 BPM P-R Int : 200 ms QRS Dur : 142 ms QT Int : 478 ms P-R-T Axes : 047 -31 118 degrees QTc Int : 497 ms Normal sinus rhythm Left axis deviation Left bundle branch block Abnormal ECG When compared with ECG of 31-DEC-2016 09:02, Left bundle branch block is now Present Confirmed by UVALDO JULIAN, STEPHEN ([id number]), medical editor ADELINE HERNÁNDEZ ([id number]) on 01/14/2023 9:59:31 AM Referred By: CALEB Confirmed By:VALE BAILON MD
--- NOTE | 2023-01-12 20:01 | EX.ED.DYSGE1 ---
HPI History of Present Illness Chief Complaint: Confusion Informant: patient Onset/Context/Timing Onset: Today Context: Gradual Onset Timing: Continuous Maximum Severity: Mild Narrative Narrative: 57-year-old male past medical history of hypertension. Recently discharged from skilled nursing today. Brought in by friend or significant other who is currently not present due to mental status change. Patient does state he had a recent head injury but does not believe he lost consciousness. Does not believe he is on any blood thinners. Prior similar symptoms: No Recent Illness/Hospitalization: No PFSH PFSH Medical History Ambulates with cane Anxiety Anxiety and depression Arthritis Back pain Bipolar disorder Body mass index (BMI) 35 or more Breast mass, left Cancer Cardiology follow-up encounter Cataract, left eye Chest pain Chronic cough Chronic pain of both knees CPAP (continuous positive airway pressure) dependence Degenerative joint disease (DJD) of hip Depression Disc degeneration, lumbar Dizziness Essential (primary) hypertension Headache High cholesterol History of echocardiogram History of edema History of pain when walking History of stress test Hx of reactive hypoglycemia Hyperlipidemia Hypertension Iliotibial band syndrome affecting left lower leg Injury of head and neck Left shoulder pain Loss of consciousness Non-smoker Obesity Obesity RAY (obstructive sleep apnea) Osteoarthritis of right hip Osteoarthritis of right hip Pain Palpitations Primary osteoarthritis, left shoulder Primary osteoarthritis, right shoulder Right shoulder pain Shortness of breath on exertion SOBOE (shortness of breath on exertion) Wears glasses Home Medications multivitamin (Daily Multi-Vitamin tablet) 1 tab PO DAILY 12/01/19 [History Last Taken 03/16/22] carvedilol 12.5 mg tablet 12.5 mg PO BID 08/02/20 [History Last Taken 09/29/22] lamotrigine 200 mg tablet 400 mg PO QHS 08/02/20 [History Last Taken 03/16/22] acetaminophen 500 mg capsule 500 mg PO Q6H PRN Pain 05/21/21 [History Last Taken 03/16/22] bupropion HCl 150 mg tablet,12 hr sustained-release (Wellbutrin SR) 150 mg PO BID 12/03/21 [History Last Taken 03/16/22] diclofenac sodium 75 mg tablet,delayed release 75 mg PO BID 12/03/21 [History Last Taken 03/16/22] tramadol 50 mg tablet 50 mg PO Q8H PRN pain #21 tabs 01/27/22 [Rx Last Taken Unknown] lithium carbonate 300 mg capsule 300 mg PO DAILY 02/05/22 [History Last Taken 03/16/22] hydrochlorothiazide 25 mg tablet 25 mg PO DAILY #90 tabs 04/18/22 [Rx Last Taken Unknown] ascorbic acid (vitamin C) 500 mg tablet (Vitamin C) 1,000 mg PO DAILY 05/27/22 [History Last Taken Unknown] cholecalciferol (vitamin D3) 25 mcg (1,000 unit) chewable tablet (Vitamin D3) 2,000 unit PO DAILY 05/27/22 [History Last Taken Unknown] lithium carbonate 300 mg capsule 600 mg PO QHS 05/27/22 [History Last Taken Unknown] ramipril 10 mg capsule 10 mg PO QHS 05/27/22 [History Last Taken 09/29/22] gabapentin 800 mg tablet mg PO 11/14/22 [History Last Taken Unknown] tamsulosin 0.4 mg capsule mg PO 11/14/22 [History Last Taken Unknown] amlodipine 5 mg tablet 5 mg PO QHS #90 tabs 11/25/22 [Rx Last Taken Unknown] ezetimibe 10 mg tablet (Zetia) 10 mg PO DAILY #90 tabs 12/02/22 [Rx Last Taken Unknown] Allergy/AdvReac Type Severity Reaction Status Date / Time atorvastatin [From Lipitor] Allergy Unknown Verified 01/12/23 19:10 Penicillins Allergy Unknown Verified 01/12/23 19:10 pravastatin [From Pravachol] Allergy Unknown Verified 01/12/23 19:10 tolmetin Allergy Hives Verified 01/12/23 19:10 meloxicam AdvReac Other Verified 01/12/23 19:10 Family History Mother Breast cancer Myocardial infarction Hypertension Father Colon cancer Myocardial infarction Surgical History H/O rotator cuff surgery History of carpal tunnel surgery of right wrist History of left heart catheterization (02/2013) History of left hip replacement (01/2017) History of open reduction and internal fixation (ORIF) procedure History of total left hip arthroplasty Hx of arthroscopy of left knee Hx of arthroscopy of right knee Hx of arthroscopy of shoulder Hx of exploratory laparotomy Hx of release of tendon Hx of right cataract extraction S/P partial mastectomy Social History Smoking Status: Never smoker alcohol intake: never substance use type: does not use caffeine: Yes Type: carbonated beverages Number of servings: 3 what type of physical activity do you participate in: none ROS ROS ED ROS Narrative Denies. Limited due to status. Review of Systems ROS Unobtainable: due to mental status Constitutional Constitutional ED: Denies chills or fever(s) Eyes Eyes: Denies blurry vision ENT ENT ED: Denies ear pain Cardiovascular Cardiovascular: Denies chest pain Respiratory/Chest Respiratory/Chest: Denies cough or dyspnea Gastrointestinal Gastrointestinal: Denies abdominal pain Genitourinary Genitourinary ED: Denies dysuria Musculoskeletal Musculoskeletal: Denies arthralgias or back pain Integumentary Denies abscess or Abrasions Neurologic Neurologic: Denies headache(s) Psychiatric Psychiatric: Denies anxiety Endocrine Endocrinology: Denies cold intolerance or heat intolerance Hematologic/Lymphatic Hematologic/Lymphatic: Reports none Allergic/Immunologic Allergic/Immunologic ED: Denies mouth swelling, tongue swelling or urticaria EXAM Physical Exam Narrative Exam Narrative: 57-year-old male vital signs stable afebrile. He does seem slow and confused but he can answer questions appropriately. HEENT exam unremarkable atraumatic. Nontender. Pupils round react light motions are intact. Normal speech no facial droop. No trauma. Neck nontender. No meningismus. Lungs clear to auscultation. Heart regular rhythm rate about 70 no murmur. Chest wall and ribs nontender. Abdomen soft nontender. Moving all 4 extremities. Back unremarkable. Neurologically he is slow to respond but does answer questions. He does know the day of the week Thursday, month of the year in December initially thought it was September but then corrected himself. He knows the president night states. He knows what year it is. He is moving all 4 extremities. There is no focal motor deficits. Const Vital Signs: 01/12/23 19:08 Temperature 98.0 F Temperature Source Temporal Pulse Rate 68 Respiratory Rate 18 Blood Pressure 143/90 H Blood Pressure Mean 107 Pulse Ox 97 Oxygen Delivery Method Room Air Positive well nourished, well developed and obese; Negative for cachectic, contractures or unkempt General Appearance ED: well developed; Negative for unkempt, cachectic, contractures, diaphoretic or pallor Nutritional Appearance: obese; Negative for cachectic HEENT Reports moist mucous membranes; Denies dry mucous membranes Negative for trauma or tenderness Mouth ED: No dry mucous membranes Mouth: No dry mucous membranes Eyes PERRL and EOMs intact bilaterally General Eye ED: Negative for pale conjunctiva or scleral icterus Neck no lymphadenopathy, supple and no JVD General: Negative for tenderness Lymph Lymphatic: Negative for other Chest Wall inspection of chest normal and palpation of chest normal Chest: Negative for other Resp normal respiratory effort and clear to auscultation bilaterally Effort and Inspection: Negative for retractions Auscultation: Negative for rales, rhonchi or wheezes Cardio regular rate, regular rhythm, S1 normal heart sound, S2 normal heart sound and no murmurs Rate: Negative for bradycardia or tachycardic GI normal to inspection, nondistended, normoactive bowel sounds, non-tender, non-distended and no masses Inspection: Negative for abdominal distention Auscultation: normoactive bowel sounds Palpation: soft; Negative for tender or guarding Back/Spine no CVA tenderness General Back: Negative for CVA tenderness Cervical Spine: Negative for cervical spine tenderness Thoracic Spine / Upper Back: Negative for thoracic spinal tenderness or paraspinal muscle tenderness Lumbar Spine / Lower Back: Negative for lumbar spinal tenderness Extremity normal to inspection General Extremety ED: Negative for edema or tenderness General Extremity: Negative for edema Neuro oriented x3 and CN's II-XII intact bilaterally Sensorium / Orientation: alert; Negative for orientation impaired, lethargic or stuporous Motor Exam: strength 5/5 throughout Psych mental status grossly normal Appearance: Negative for unkempt Attitude: No agitated Mood & Affect: Negative for depressed, anxious or tearful Skin no rashes or lesions noted, no wounds and skin turgor normal General Skin Exam: elasticity normal; Negative for jaundice or pallor Lesions: No lesion noted Rashes: No rashes noted Trauma: Negative for abrasion Wounds: Negative for wounds noted MDM MDM MDM Narrative Medical decision making narrative: 57-year-old male limited informant with mental status change. CAT scan and labs are pending. No signs of acute stroke. Repeat exam unchanged at 10:20 PM. Patient will be admitted for acute kidney failure and uremia most likely causing his mental status change. No family has been present and I was able to discuss with them his presentation. I did compare his labs to prior labs he had normal kidney function 7 months ago. States he has been urinating. I will speak to the hospitalist about admission. Patient will be treated with a liter of normal saline. History & Record Review Discussion w/independent historian: Patient Lab Data Attestation: I reviewed the patient's lab results. Lab results narrative: CBC shows a white count of 12.4 H&H of 14 and 46. Platelets 284. Electrolytes show sodium 132 gap of 9 BUN and creatinine of 60 and 4.8 consistent with acute kidney failure. Glucose 110. Liver enzymes are normal. Alcohol is negative. Chest x-ray chronic changes. CAT scan chronic calcifications but no acute bleed nor signs of acute stroke read by the radiologist and reviewed by me. Labs: Laboratory Results - last 24 hr 01/12/23 20:30 WBC 12.4 H RBC 5.01 Hgb 14.9 Hct 46.5 MCV 92.8 MCH 29.7 MCHC 32.0 RDW Std Deviation 44.9 H RDW Coeff of Héctor 13.2 Plt Count 284 MPV 12.4 H Immature Gran % (Auto) 0.800 Neut % (Auto) 74.6 H Lymph % (Auto) 13.2 L [place] % (Auto) 8.8 Eos % (Auto) 2.0 Baso % (Auto) 0.6 Absolute Neuts (auto) 9.3 H Absolute Lymphs (auto) 1.63 Nucleated RBC % 0 Sodium 132 L Potassium 3.9 Chloride 98 Carbon Dioxide 25.0 Anion Gap 9 BUN 60 H Creatinine 4.82 H Est GFR (MDRD) Af Amer 16 L Est GFR (MDRD) Non-Af 13 L BUN/Creatinine Ratio 12.4 Glucose 110 H Calcium 9.3 Total Bilirubin 0.70 AST 17 ALT 40 Alkaline Phosphatase 110 Total Protein 7.0 Albumin 4.1 Globulin 2.9 Albumin/Globulin Ratio 1.4 Ethyl Alcohol < 3.0 Radiography Chest X-Ray - ED: 1 View, Read by ED Physician, Read by Radiologist, Heart, Lungs, Mediastinum, Bony Structures, No Acute Disease and Chronic Changes Diagnostic Testing: Clinical Impression(s) from Imaging Studies Brain CT 01/12/23 19:59 IMPRESSION: Nonspecific Nonspecific coarse calcifications within the cerebellum bilaterally. No acute disease. Electronically Signed: Kemar Dao MD at 20:45 EDT , Chest X-Ray 01/12/23 20:10 IMPRESSION: No acute disease Electronically Signed: Kemar Dao MD at 20:47 EDT , Chest x-ray, portable, single view shows a slightly elevated right hemidiaphragm. Normal cardiac silhouette. Normal lung bahena. Interpreted by myself and the radiologist. No acute disease. Rhythm Strip Rhythm Strip: Sinus Rhythm Rate: 65 Ectopy: None EKG Initial EKG: Attestation: I personally reviewed and interpreted this EKG as follows: Interpretation: Sinus Rhythm and No Acute Injury Pattern Comments: Normal sinus rhythm rate 65. Left bundle branch block. No acute signs of [place] nor ischemia. Discharge Plan Dx/Rx/DC Orders Clinical Impression: Acute kidney failure, Acute confusion, Acute uremia Disposition Disposition: Acute Care Hospital [facility] [facility]
--- NOTE | 2023-01-12 20:10 | RAD_ITS ---
STUDY: X-RAY CHEST REASON FOR EXAM: Male, 57 years old. MS Change TECHNIQUE: Single frontal view of the chest. COMPARISON: February 09, 2020 chest x-ray. FINDINGS: Elevated right hemidiaphragm. The lungs are clear and expanded. There is no demonstrated pleural abnormality. Normal size heart. Normal mediastinum and lalitha. Normal visualized pulmonary arteries. Normal visualized aortic arch and descending thoracic aorta. Normal visualized thoracic spine. Normal visualized ribs, clavicles, and shoulders. There is no demonstrated abnormality of the visualized soft tissue structures of the upper abdomen. RAD/Chest 1 View (Portable) IMPRESSION: No acute disease Electronically Signed: Kemar Dao MD at 20:47 EDT ,
[2023-01-12 20:37] LABS: Absolute Lymphocyte Count 1.63 X10^3/uL (0.83-4.51); Absolute Neutrophil Count 9.3 X10^3/uL (2.0-7.7); Basophil# 0.07 X10^3/uL; Basophil% 0.6 % (0-1); Eosinophil# 0.25 X10^3/uL; Hematocrit 46.5 % (40-54); Hemoglobin 14.9 g/dL (13.0-16.5); Lymphocyte # 1.63 X10^3/ul (0.83-4.51); Lymphocyte % 13.2 % (19-41); Mean Corpuscular Hgb 29.7 pg (27.0-32.0); Mean Corpuscular Volume 92.8 fL (80-94); Mean Platelet Vol. 12.4 fl (6.2-12.0); Monocyte# 1.09 X10^3/uL; Monocyte% 8.8 % (0-10); NRBC Flagged by Analyzer 0 % (0-5); Neutrophil # 9.25 X10^3/uL (2.7-7.7); Neutrophil % 74.6 % (47-70); Platelet Count 284 K/mm3 (150-450); RBC Distribution Width CV 13.2 % (11.6-14.6); RBC Distribution Width SD 44.9 fl (35.1-43.9); Red Blood Count 5.01 M/mm3 (4.6-6.2); White Blood Count 12.4 K/mm3 (4.4-11.0)
[2023-01-12 21:01] LABS: Alcohol, Blood (Medical)-Serum < 3.0 mg/dL
[2023-01-12 21:05] LABS: ALB/GLOB Ratio 1.4 RATIO (0.9-2.4); AST(SGOT) 17 U/L (15-37); Alanine Aminotransfer ALT/SGPT 40 U/L (16-61); Albumin, Serum 4.1 g/dL (3.2-5.0); Alkaline Phosphatase 110 U/L (45-117); Anion Gap 9 (5-15); BUN 60 mg/dL (7-18); BUN/Creat Ratio 12.4 RATIO (10-20); Calcium,Total 9.3 mg/dL (8.5-10.1); Chloride 98 mmol/L (98-107); Creatinine, Serum 4.82 mg/dL (0.70-1.30); EST Glomerular Filtration Rate 13 mL/min (>60); Est Glom Filt Rate - Afr Amer 16 mL/min (>60); Globulin 2.9 g/dL (2.2-4.2); Glucose 110 mg/dL (74-106); Potassium 3.9 mmol/L (3.5-5.1); Sodium Level 132 mmol/L (136-145)
--- NOTE | 2023-01-12 22:31 | HP.PCM_ITS ---
HPI - General General Date of Admission: 01/12/23 Date of Service: 01/12/23 Chief Complaint: Change in mental status HPI Narrative MELIZA KELLEY, is a 57 M who presents to the emergency room with chief complaint of mental status change. Patient was released from [facility] earlier today and dropped at the emergency room by his significant other who subsequently left and is unavailable for further history. The patient is confused but denies any current pain, shortness of breath, fevers or chills and/or nausea and vomiting. He does have a history of hypertension and laboratory studies are unremarkable for acute changes and CT scan of the head. Laboratory studies are remarkable for elevated creatinine of 4.8 and patient has no previous past documentation of kidney disease. He will be admitted to progressive care unit monitored for m ental status and hydrated overnight for acute kidney disease. [facility] Medical History Ambulates with cane Anxiety Anxiety and depression Arthritis Back pain Bipolar disorder Body mass index (BMI) 35 or more Breast mass, left Cancer Cardiology follow-up encounter Cataract, left eye Chest pain Chronic cough Chronic pain of both knees CPAP (continuous positive airway pressure) dependence Degenerative joint disease (DJD) of hip Depression Disc degeneration, lumbar Dizziness Essential (primary) hypertension Headache High cholesterol History of echocardiogram History of edema History of pain when walking History of stress test Hx of reactive hypoglycemia Hyperlipidemia Hypertension Iliotibial band syndrome affecting left lower leg Injury of head and neck Left shoulder pain Loss of consciousness Non-smoker Obesity Obesity RAY (obstructive sleep apnea) Osteoarthritis of right hip Osteoarthritis of right hip Pain Palpitations Primary osteoarthritis, left shoulder Primary osteoarthritis, right shoulder Right shoulder pain Shortness of breath on exertion SOBOE (shortness of breath on exertion) Wears glasses Home Medications multivitamin (Daily Multi-Vitamin tablet) 1 tab PO DAILY 12/01/19 [History Last Taken 03/16/22] carvedilol 12.5 mg tablet 12.5 mg PO BID 08/02/20 [History Last Taken 09/29/22] lamotrigine 200 mg tablet 400 mg PO QHS 08/02/20 [History Last Taken 03/16/22] acetaminophen 500 mg capsule 500 mg PO Q6H PRN Pain 05/21/21 [History Last Taken 03/16/22] bupropion HCl 150 mg tablet,12 hr sustained-release (Wellbutrin SR) 150 mg PO BID 12/03/21 [History Last Taken 03/16/22] diclofenac sodium 75 mg tablet,delayed release 75 mg PO BID 12/03/21 [History Last Taken 03/16/22] tramadol 50 mg tablet 50 mg PO Q8H PRN pain #21 tabs 01/27/22 [Rx Last Taken Unknown] lithium carbonate 300 mg capsule 300 mg PO DAILY 02/05/22 [History Last Taken 03/16/22] hydrochlorothiazide 25 mg tablet 25 mg PO DAILY #90 tabs 04/18/22 [Rx Last Taken Unknown] ascorbic acid (vitamin C) 500 mg tablet (Vitamin C) 1,000 mg PO DAILY 05/27/22 [History Last Taken Unknown] cholecalciferol (vitamin D3) 25 mcg (1,000 unit) chewable tablet (Vitamin D3) 2,000 unit PO DAILY 05/27/22 [History Last Taken Unknown] lithium carbonate 300 mg capsule 600 mg PO QHS 05/27/22 [History Last Taken Unknown] ramipril 10 mg capsule 10 mg PO QHS 05/27/22 [History Last Taken 09/29/22] gabapentin 800 mg tablet mg PO 11/14/22 [History Last Taken Unknown] tamsulosin 0.4 mg capsule mg PO 11/14/22 [History Last Taken Unknown] amlodipine 5 mg tablet 5 mg PO QHS #90 tabs 11/25/22 [Rx Last Taken Unknown] ezetimibe 10 mg tablet (Zetia) 10 mg PO DAILY #90 tabs 12/02/22 [Rx Last Taken Unknown] Allergy/AdvReac Type Severity Reaction Status Date / Time atorvastatin [From Lipitor] Allergy Unknown Verified 01/12/23 19:10 Penicillins Allergy Unknown Verified 01/12/23 19:10 pravastatin [From Pravachol] Allergy Unknown Verified 01/12/23 19:10 tolmetin Allergy Hives Verified 01/12/23 19:10 meloxicam AdvReac Other Verified 01/12/23 19:10 Family History Mother Breast cancer Myocardial infarction Hypertension Father Colon cancer Myocardial infarction Surgical History H/O rotator cuff surgery History of carpal tunnel surgery of right wrist History of left heart catheterization (02/2013) History of left hip replacement (01/2017) History of open reduction and internal fixation (ORIF) procedure History of total left hip arthroplasty Hx of arthroscopy of left knee Hx of arthroscopy of right knee Hx of arthroscopy of shoulder Hx of exploratory laparotomy Hx of release of tendon Hx of right cataract extraction S/P partial mastectomy Social History Smoking Status: Never smoker alcohol intake: never substance use type: does not use caffeine: Yes Type: carbonated beverages Number of servings: 3 what type of physical activity do you participate in: none ROS Review of Systems ROS Unobtainable: due to encephalopathy and due to mental status Respiratory/Chest Respiratory/Chest: Denies shortness of breath at rest Gastrointestinal Gastrointestinal: Denies abdominal pain Genitourinary Genitourinary: Denies dysuria Musculoskeletal Musculoskeletal: Denies back pain Neurologic Neurologic: Reports confusion; Denies focal weakness Vital Signs Vital Signs Vital Signs: 01/12/23 19:08 Temperature 98.0 F Temperature Source Temporal Pulse Rate 68 Respiratory Rate 18 Blood Pressure 143/90 H Blood Pressure Mean 107 Pulse Ox 97 Oxygen Delivery Method Room Air Physical Exam Const alert General Appearance: cooperative Orientation / Consciousness: confused HEENT normocephalic and head/scalp atraumatic Eyes PERRL Neck no lymphadenopathy Lymph Lymphatic: no lymphadenopathy noted Resp normal respiratory effort, normal air movement and clear to auscultation bilaterally Cardio regular rate, regular rhythm, S1 normal heart sound and S2 normal heart sound GI normal to inspection, nondistended, normoactive bowel sounds Extremity normal capillary refill Skin General Skin Exam: no breakdown Neuro no focal motor deficits and no sensory deficits noted Psych cooperative Appearance: appropriate Results Lab / Micro Data 01/12/23 20:30 01/12/23 20:30 Labs: Laboratory Results - last 24 hr 01/12/23 20:30: WBC 12.4 H, RBC 5.01, Hgb 14.9, Hct 46.5, MCV 92.8, MCH 29.7, MCHC 32.0, RDW Std Deviation 44.9 H, RDW Coeff of Héctor 13.2, Plt Count 284, MPV 12.4 H, Immature Gran % (Auto) 0.800, Neut % (Auto) 74.6 H, Lymph % (Auto) 13.2 L, [place] % (Auto) 8.8, Eos % (Auto) 2.0, Baso % (Auto) 0.6, Absolute Neuts (auto) 9.3 H, Absolute Lymphs (auto) 1.63, Nucleated RBC % 0, Sodium 132 L, Potassium 3.9, Chloride 98, Carbon Dioxide 25.0, Anion Gap 9, BUN 60 H, Creatinine 4.82 H, Est GFR (MDRD) Af Amer 16 L, Est GFR (MDRD) Non-Af 13 L, BUN/Creatinine Ratio 12.4, Glucose 110 H, Calcium 9.3, Total Bilirubin 0.70, AST 17, ALT 40, Alkaline Phosphatase 110, Total Protein 7.0, Albumin 4.1, Globulin 2.9, Albumin/Globulin Ratio 1.4, Ethyl Alcohol < 3.0 Rhythm Strip Rhythm Strip: Sinus Rhythm Rate: 65 Ectopy: None Radiology Impression Brain CT 01/12/23 19:59 IMPRESSION: Nonspecific Nonspecific coarse calcifications within the cerebellum bilaterally. No acute disease. Electronically Signed: Kemar Dao MD at 20:45 EDT Reading Location ID and State: [address] [place] [address] Tel , Service support , Chest X-Ray 01/12/23 20:10 IMPRESSION: No acute disease Electronically Signed: Kemar Dao MD at 20:47 EDT Reading Location ID and State: [address] [place] [address] Tel , Service support , Assessment & Plan Assessment/Plan (1) Acute uremia: (2) Acute confusion: (3) Acute kidney failure: (4) Obesity, morbid, BMI 50 or higher: (5) Essential (primary) hypertension: PLAN: Plan 1 acute kidney disease/failure?admit patient to progressive care unit, repeat BMP in the morning IV hydration with normal saline at 150 cc/h overnight 2. Mental status changes?neurochecks overnight, CT scan of brain is negative for acute disease likely etiology is secondary to uremia 3. Hypertension?continue routine home medication 4. DVT prophylaxis?SCDs due to uremia we are unable to use Lovenox Charges/Coding Visit Charges Inpatient E&M: 38986 Init Hosp L2
[2023-01-12] MEDS: 0.9% Normal Saline (1000mL) 1,000 ML 999 ML IV (22:34)
[2023-01-12 22:35] VITALS: BP 130/82; PULSE 65; RESP 20; TEMP 36.4; O2SAT 92
[2023-01-12 23:30] VITALS: BMI 46.4
[2023-01-12 23:52] VITALS: BP 117/77; PULSE 68; RESP 18; TEMP 36.6; O2SAT 100
[2023-01-13] MEDS: 0.9% Normal Saline (1000mL) 1,000 ML 150 ML IV ×3 (00:20→17:55)
[2023-01-13] MEDS: lamoTRIgine 100 MG Tablet 400 MG PO ×2 (00:24→21:11)
[2023-01-13] MEDS: amLODIPine 5 MG Tablet PO ×2 (00:24→21:10)
[2023-01-13 04:55] VITALS: BP 131/67; PULSE 65; RESP 18; TEMP 36.6; O2SAT 99
[2023-01-13 06:30] LABS: Bedside Glucose 119 mg/dL (74-106)
[2023-01-13 06:44] LABS: Absolute Lymphocyte Count 1.83 X10^3/uL (0.83-4.51); Absolute Neutrophil Count 7.5 X10^3/uL (2.0-7.7); Basophil# 0.08 X10^3/uL; Basophil% 0.7 % (0-1); Eosinophil# 0.29 X10^3/uL; Eosinophils% 2.7 % (0-5); Hematocrit 42.1 % (40-54); Hemoglobin 13.6 g/dL (13.0-16.5); Lymphocyte # 1.83 X10^3/ul (0.83-4.51); Lymphocyte % 16.8 % (19-41); Mean Corp Hgb Conc 32.3 g/dL (32-36); Mean Corpuscular Hgb 29.8 pg (27.0-32.0); Mean Corpuscular Volume 92.1 fL (80-94); Mean Platelet Vol. 12.2 fl (6.2-12.0); Monocyte# 1.11 X10^3/uL; Monocyte% 10.2 % (0-10); NRBC Flagged by Analyzer 0 % (0-5); Neutrophil # 7.52 X10^3/uL (2.7-7.7); Platelet Count 248 K/mm3 (150-450); RBC Distribution Width CV 13.1 % (11.6-14.6); RBC Distribution Width SD 44.5 fl (35.1-43.9); Red Blood Count 4.57 M/mm3 (4.6-6.2); White Blood Count 10.9 K/mm3 (4.4-11.0)
--- NOTE | 2023-01-13 07:32 | PCM.PN.HOSP ---
Reason for Visit Reason for Visit: Diagnoses Morbid (severe) obesity due to excess calories (01/12/23) Essential (primary) hypertension (01/12/23) Acute kidney failure, unspecified (01/12/23) Unspecified kidney failure (01/12/23) Disorientation, unspecified (01/12/23) Subjective Subjective Patient is a 57-year-old male who was brought to the hospital by family on account of increasing confusion found to have acute kidney injury admitted to monitored bed for subsequent eval Objective Data Objective Data Vital Signs: Vital Signs Temp Pulse Resp BP Pulse Ox O2 Del Method 97.8 F 65 18 131/67 H 99 Room Air 01/13/23 04:55 01/13/23 04:55 01/13/23 04:55 01/13/23 04:55 01/13/23 04:55 01/13/23 05:03 Oxygen Delivery Method Room Air Weight: 146.9 kg Body Mass Index (BMI) 46.4 Intake & Output: Intake and Output for Last 24 Hours 01/11/23 01/12/23 01/13/23 23:59 23:59 23:59 Intake Total 1000 / 1000 Balance 1000 / 1000 Lab / Micro Data 01/13/23 06:27 01/13/23 06:27 Labs: Laboratory Results - last 24 hr 01/12/23 20:30: WBC 12.4 H, RBC 5.01, Hgb 14.9, Hct 46.5, MCV 92.8, MCH 29.7, MCHC 32.0, RDW Std Deviation 44.9 H, RDW Coeff of Héctor 13.2, Plt Count 284, MPV 12.4 H, Immature Gran % (Auto) 0.800, Neut % (Auto) 74.6 H, Lymph % (Auto) 13.2 L, Bulloch % (Auto) 8.8, Eos % (Auto) 2.0, Baso % (Auto) 0.6, Absolute Neuts (auto) 9.3 H, Absolute Lymphs (auto) 1.63, Nucleated RBC % 0, Sodium 132 L, Potassium 3.9, Chloride 98, Carbon Dioxide 25.0, Anion Gap 9, BUN 60 H, Creatinine 4.82 H, Est GFR (MDRD) Af Amer 16 L, Est GFR (MDRD) Non-Af 13 L, BUN/Creatinine Ratio 12.4, Glucose 110 H, Calcium 9.3, Total Bilirubin 0.70, AST 17, ALT 40, Alkaline Phosphatase 110, Total Protein 7.0, Albumin 4.1, Globulin 2.9, Albumin/Globulin Ratio 1.4, Ethyl Alcohol < 3.0 01/13/23 06:03: POC Glucose 119 H 01/13/23 06:27: WBC 10.9, RBC 4.57 L, Hgb 13.6, Hct 42.1, MCV 92.1, MCH 29.8, MCHC 32.3, RDW Std Deviation 44.5 H, RDW Coeff of Héctor 13.1, Plt Count 248, MPV 12.2 H, Immature Gran % (Auto) 0.600, Neut % (Auto) 69.0, Lymph % (Auto) 16.8 L, Bulloch % (Auto) 10.2 H, Eos % (Auto) 2.7, Baso % (Auto) 0.7, Absolute Neuts (auto) 7.5, Absolute Lymphs (auto) 1.83, Nucleated RBC % 0, Ammonia 31.0 Radiography Diagnostic Testing: Radiology Impression Brain CT 01/12/23 19:59 IMPRESSION: Nonspecific Nonspecific coarse calcifications within the cerebellum bilaterally. No acute disease. Electronically Signed: Kemar Dao MD at 20:45 EDT Reading Location ID and State: [address] [place] [address] Tel , Service support , Chest X-Ray 01/12/23 20:10 IMPRESSION: No acute disease Electronically Signed: Kemar Dao MD at 20:47 EDT Reading Location ID and State: [address] [place] [address] Tel , Service support , Rhythm Strip Rhythm Strip: Sinus Rhythm Rate: 65 Ectopy: None Physical Exam Narrative GENERAL: cooperative HEENT: Atraumatic; normocephalic EYES; Anicteric, Normal Conjunctiva NECK; supple, normal thyroid, RESPIRATORY: Diminished to auscultation CARDIOVASCULAR: Regular S1 S2, GI: soft, normoactive bowel sounds, : No Renal angle tenderness; EXTREMITIES: No edema, no clubbing, MUSCULOSKELETAL: no muscle wasting NEURO: Awake; no lateralizing signs. SKIN: No Rash PSYCH; Flat affect Assessment & Plan Assessment/Plan (1) Acute kidney failure: QUALIFIERS: Acute renal failure type: unspecified Qualified Code(s): N17.9 - Acute kidney failure, unspecified PLAN: Plan Patient is a 57-year-old male who was brought to the hospital by family on account of increasing confusion found to have acute kidney injury admitted to monitored bed for subsequent eval Acute kidney injury ? Patient admitted to monitored bed started on IV fluids renal duplex ordered. Progressed being monitored with serial BMPs potential nephrotoxic medications including HCTZ ramipril and diclofenac held 2. Acute metabolic encephalopathy -secondary to patient acute kidney injury management as discussed above 3. Essential hypertension ? Patient is currently on amlodipine as well as carvedilol his HCTZ and lisinopril held in view of impaired kidney function 4. Obstructive sleep apnea ? Patient apparently has not been compliant with CPAP therapy 5. Class III obesity with BMI of 46.5 ? Weight loss advised 6. DVT prophylaxis ? SC heparin Time spent in the patient's overall evaluation,decision-making process, review of diagnostic data, adjustment of management, discussion with other providers, nursing nursing and ancillary staff involved in patient's care documentation, 50 Minutes Charges/Coding Visit Charges Inpatient E&M: 80221 [facility] Hosp L3
--- NOTE | 2023-01-13 07:37 | US_ITS ---
STUDY: RENAL ULTRASOUND - COMPLETE REASON FOR EXAM: Male, 57 years old. CARLOS TECHNIQUE: Ultrasound evaluation of the kidneys was performed with real-time and static fernandes-scale imaging. COMPARISON: None. FINDINGS: RIGHT KIDNEY: Normal location of the right kidney, which is normal in size. The right kidney measures 11.3 cm x 6.3 cm x 5.5 cm. There is a normal cortex of the right kidney. The renal cortex measures 1.7 cm. There is no right renal mass or cyst. There are no right renal calculi. There is no right hydronephrosis. DISTAL RIGHT URETER: There is non-visualization of the distal right ureter. There is no demonstrated right ureterovesical junction calculus. There is no demonstrated right ureteral jet. LEFT KIDNEY: Normal location of the left kidney, which is normal in size. The left kidney measures 11.2 cm x 5.9 cm x 5.7 cm. There is a normal cortex of the left kidney. The renal cortex measures 1.9 cm. There is no left renal mass or cyst. There are no left renal calculi. There is no left hydronephrosis. DISTAL LEFT URETER: There is non-visualization of the distal left ureter. There is no demonstrated left ureterovesical junction calculus. There is no demonstrated left ureteral jet. BLADDER: The distended urinary bladder has a volume of 201 ml. There is a normal wall thickness of the distended urinary bladder. There is no demonstrated mass within the urinary bladder. There are no demonstrated bladder calculi. US/Kidney and Bladder IMPRESSION: Normal ultrasound of the kidneys and urinary bladder. Electronically Signed: Daniel Torres MD at 9:57 EDT ,
[2023-01-13 08:48] LABS: ALB/GLOB Ratio 1.3 RATIO (0.9-2.4); AST(SGOT) 15 U/L (15-37); Alanine Aminotransfer ALT/SGPT 35 U/L (16-61); Albumin, Serum 3.5 g/dL (3.2-5.0); Alkaline Phosphatase 102 U/L (45-117); Anion Gap 10 (5-15); BUN 60 mg/dL (7-18); BUN/Creat Ratio 14.6 RATIO (10-20); Calcium,Total 8.6 mg/dL (8.5-10.1); Chloride 102 mmol/L (98-107); EST Glomerular Filtration Rate 16 mL/min (>60); Est Glom Filt Rate - Afr Amer 19 mL/min (>60); Estimated Creatinine Clearance 20.53 ml/min; Globulin 2.6 g/dL (2.2-4.2); Glucose 112 mg/dL (74-106); Potassium 3.5 mmol/L (3.5-5.1); Protein, Total 6.1 g/dL (6.4-8.2); Sodium Level 134 mmol/L (136-145)
[2023-01-13 10:14] VITALS: BP 117/72; PULSE 75; RESP 18; TEMP 36.8; O2SAT 92
[2023-01-13] MEDS: Acetaminophen 500 MG Tablet PO (10:31)
[2023-01-13] MEDS: Ezetimibe 10 MG Tablet PO (10:31)
[2023-01-13] MEDS: buPROPion (SR) 150 MG Tablet.SA PO ×2 (10:31→21:10)
[2023-01-13] MEDS: Multivitamins,Therapeutic Tablet 1 TABLET PO (10:31)
[2023-01-13] MEDS: Carvedilol 12.5 MG Tablet PO ×2 (10:32→21:10)
[2023-01-13] MEDS: Heparin Injection (Vial) 5,000 UNIT/ML VIAL 5000 UNIT SC ×2 (10:39→21:10)
--- NOTE | 2023-01-13 11:25 | CASEMGMT ---
RN?CM?PRODUCTION UNDERWRITER?CM?to room to meet with patient for initial transition planning/care coordination?assessment.?RN?CM?introduced self and role at [facility].? Pt resting in bed in no distress at this time.? Pt is awake/alert, but slow to respond, and had difficulty answering questions or recalling much info. Friend, Meghan, @ bedside and provided most of the following information. Meghan states pt drove to a sentencing hearing (re: issues w/his ex-) on December 23 and was taken to snf from there. She states, since then, she has had 3 video visits w/him and noticed the last video visit was about a week ago and states, I could tell something was off. She states he was released from snf yesterday. She states when pt went into snf, he was ambulating w/a cane and when his friend, Erica, went to pick him up from snf yesterday, he was in a W/C. Meghan states during pt's time in snf he had signed paperwork giving her permission to go to his home and to manage his bills/finances, and so she has been taking care of all of that for pt. PCP: Pt initially unable to recall PCP's name. When BRODERICK MORGAN stated, Dr Eason, pt stated, Oh yes, Jj. Specialists: Verónica dasilva is aware of pt seeing Dr Best/jesus camp and Dr Mendez/cardiology and pt did agree. Verónica also states thinks he sees Dr Obrien/ortho and pt stated, Yes. When asked pt if he sees any other specialists, he did not respond for awhile and then stated, I'm sorry. Verónica thinks pt was seeing a psychiatrist, but she is unsure. Pt unable to recall. Preferred Pharmacy: Verónica unsure and pt did not answer. BRODERICK MORGAN noted in [employer] [facility] in [place] is listed. When asked pt, he stated, No. Insurance: Will TSE Prescription Benefit:?Yes Living Will/HPOA:?Pt did not answer initially when asked if he has completed these, but then stated no after awhile. Verónica is not aware if he has completed. LNOK: Initially, Verónica stated, It's best if you don't talk about it, when inquired if pt has any children. RN EDDIE explained importance of identifying who LNOK is. Veróniac states sameer has 2 sons that she does not think pt has been in contact with for several years. Pt was able to state to RN EDDIE one's son's name is Lillie, but then was not able to state 2nd sons name. Verónica states other son is Shakeel. Both of their last names are Donte. Verónica thinks Lillie lives in [place] with his mom (pt's ex) April. Verónica states pt's parents are not living and he has 3 siblings: Kun Eastman, Opal Farrell (lives in [place]), and Lila (unsure of her last name). Pt also unable to recall her last name. Living Arrangements: Per Verónica, pt lives alone in one-story home that he rents. She reports he was independent w/all ADL's and IADL's, as far as she knows. Transportation:?Pt was driving prior to going to snf. He drove his vehicle to the [facility] and it is now at her (Verónica's) home. DME: As far as Verónica knows, pt was only using a cane before he went to snf and she is not sure that it was returned when he got out of snf. Pt unable to recall. HHC/SNF: Verónica states sameer has been to [facility] in [place] and pt did acknowledge same. She thinks he has had HHC in the past. Pt unable to recall. PLAN:??TBD by course of treatment and progress with therapy. Lisa VAUGHNN?RN?CM
[2023-01-13 16:01] VITALS: BP 102/66; PULSE 65; RESP 16; TEMP 36.7; O2SAT 95
--- NOTE | 2023-01-13 16:20 | CHAPLAIN ---
Type of Pastoral Visit _x__ Initial Visit ___ Follow-up Visit ___ On-call Visit ___ General Patient Visit ___ Spiritual Assessment ___ Family Conference ___ Bereavement ___ Rapid Response ___ Code Blue ___ Other (describe below) Pastoral Care Referral From _x__ Patient ___ Family ___ Nurse ___ Physician ___ Manager Field Services ___ Adjustment Examiner ___ Other (describe below) Sacrament/Intervention ___ Active listening ___ Anointing ___ Mormon ___ Bereavement ___ Communion ___ Giovana exploration ___ ___ Life review ___ Prayer ___ Reconciliation ___ Sacrament of Sick _x__ Supportive presence ___ Wedding ___ Other (describe below) Pastoral Comments patient is sitting up in chair and awake; introduced self and role and patient stated his name when asked; pt was asked a few questions but he could not finish any sentences and was very slow in responding; pt repeatedly said I am sorry; offer of return visit if that would be beneficial and pt agreed;
[2023-01-13 21:30] VITALS: BP 137/80; PULSE 66; RESP 18; TEMP 36.8; O2SAT 95
[2023-01-14] MEDS: 0.9% Normal Saline (1000mL) 1,000 ML 150 ML IV ×4 (00:35→19:35)
[2023-01-14 03:41] VITALS: BP 139/84; PULSE 66; RESP 18; TEMP 36.7; O2SAT 94
[2023-01-14 04:58] LABS: Amphetamine Urine VISTA NEGATIVE (<1000 ng/mL); Barbiturate Urine VISTA NEGATIVE (< 200 ng/mL); Benzodiazepine Urine VISTA NEGATIVE (< 200 ng/mL); Cocaine Urine VISTA NEGATIVE (< 300 ng/mL); Ecstacy Urine VISTA POSITIVE (< 500 ng/mL); Methadone Urine VISTA NEGATIVE (< 300 ng/mL); PCP Urine VISTA NEGATIVE (< 25 ng/mL); THC Urine VISTA NEGATIVE (< 50 ng/mL); Vista UDS pH Range 6
[2023-01-14 06:52] LABS: Hematocrit 39.6 % (40-54); Hemoglobin 12.6 g/dL (13.0-16.5); Mean Corp Hgb Conc 31.8 g/dL (32-36); Mean Corpuscular Hgb 29.9 pg (27.0-32.0); Mean Corpuscular Volume 93.8 fL (80-94); Mean Platelet Vol. 12.8 fl (6.2-12.0); Platelet Count 230 K/mm3 (150-450); RBC Distribution Width CV 13.2 % (11.6-14.6); RBC Distribution Width SD 45.3 fl (35.1-43.9); Red Blood Count 4.22 M/mm3 (4.6-6.2)
[2023-01-14 07:21] LABS: Anion Gap 6 (5-15); BUN 46 mg/dL (7-18); BUN/Creat Ratio 19.8 RATIO (10-20); Calcium,Total 8.4 mg/dL (8.5-10.1); Chloride 109 mmol/L (98-107); Creatinine, Serum 2.32 mg/dL (0.70-1.30); EST Glomerular Filtration Rate 31 mL/min (>60); Est Glom Filt Rate - Afr Amer 37 mL/min (>60); Estimated Creatinine Clearance 36.27 ml/min; Glucose 96 mg/dL (74-106); Magnesium 2.5 mg/dL (1.6-2.6); Phosphorus 2.3 mg/dL (2.5-4.9); Potassium 3.3 mmol/L (3.5-5.1); Sodium Level 137 mmol/L (136-145)
--- NOTE | 2023-01-14 08:07 | PN.HOSP_ITS ---
Reason for Visit Reason for Visit: Diagnoses Morbid (severe) obesity due to excess calories (01/12/23) Essential (primary) hypertension (01/12/23) Acute kidney failure, unspecified (01/12/23) Unspecified kidney failure (01/12/23) Disorientation, unspecified (01/12/23) Subjective Subjective Patient kidney function improving with rehydration. Kidney ultrasound demonstrated normal ultrasound of the kidneys and urinary bladder. Objective Data Objective Data Vital Signs: Vital Signs Temp Pulse Resp BP Pulse Ox O2 Del Method 98.0 F 66 18 139/84 H 94 Room Air 01/14/23 03:41 01/14/23 03:41 01/14/23 03:41 01/14/23 03:41 01/14/23 03:41 01/14/23 03:50 Oxygen Delivery Method Room Air Weight: 146.9 kg Body Mass Index (BMI) 46.4 Intake & Output: Intake and Output for Last 24 Hours 01/12/23 01/13/23 01/14/23 23:59 23:59 23:59 Intake Total 1000 / 1000 2720 / 2720 1912.5 / 1912.5 Output Total 900 / 900 Balance 1000 / 1000 2720 / 2720 1012.5 / 1012.5 Lab / Micro Data 01/14/23 05:25 01/14/23 05:25 Labs: Laboratory Results - last 24 hr 01/13/23 06:27: Sodium Cancelled 01/13/23 06:27: Sodium 134 L, Potassium Cancelled 01/13/23 06:27: Potassium 3.5, Chloride Cancelled 01/13/23 06:27: Chloride 102, Carbon Dioxide Cancelled 01/13/23 06:27: Carbon Dioxide 22.0, Anion Gap Cancelled 01/13/23 06:27: Anion Gap 10, BUN Cancelled 01/13/23 06:27: BUN 60 H, Creatinine Cancelled 01/13/23 06:27: Creatinine 4.10 H, Estim Creat Clear Calc Cancelled 01/13/23 06:27: Estim Creat Clear Calc 20.53, Est GFR (MDRD) Af Amer Cancelled 01/13/23 06:27: Est GFR (MDRD) Af Amer 19 L, Est GFR (MDRD) Non-Af Cancelled 01/13/23 06:27: Est GFR (MDRD) Non-Af 16 L, BUN/Creatinine Ratio Cancelled 01/13/23 06:27: BUN/Creatinine Ratio 14.6, Glucose Cancelled 01/13/23 06:27: Glucose 112 H, Calcium Cancelled 01/13/23 06:27: Calcium 8.6, Total Bilirubin 0.60, AST 15, ALT 35, Alkaline Phosphatase 102, Total Protein 6.1 L, Albumin 3.5, Globulin 2.6, Albumin/Globulin Ratio 1.3 01/14/23 03:31: Urine Opiates Screen NEGATIVE, Urine Methadone Screen NEGATIVE, Ur Barbiturates Screen NEGATIVE, Ur Phencyclidine Scrn NEGATIVE, Ur Amphetamines Screen NEGATIVE, MDMA (Ecstasy) Screen POSITIVE H, U Benzodiazepines Scrn NEGATIVE, Urine Cocaine Screen NEGATIVE, U Cannabinoids Screen NEGATIVE, Ur Drug Screen Comment 01/14/23 05:25: WBC 9.0, RBC 4.22 L, Hgb 12.6 L, Hct 39.6 L, MCV 93.8, MCH 29.9, MCHC 31.8 L, RDW Std Deviation 45.3 H, RDW Coeff of Héctor 13.2, Plt Count 230, MPV 12.8 H, Sodium 137, Potassium 3.3 L, Chloride 109 H, Carbon Dioxide 22.0, Anion Gap 6, BUN 46 H, Creatinine 2.32 H, Estim Creat Clear Calc 36.27, Est GFR (MDRD) Af Amer 37 L, Est GFR (MDRD) Non-Af 31 L, BUN/Creatinine Ratio 19.8, Glucose 96, Calcium 8.4 L, Phosphorus 2.3 L, Magnesium 2.5 Radiography Diagnostic Testing: Radiology Impression Renal Ultrasound 01/13/23 07:37 IMPRESSION: Normal ultrasound of the kidneys and urinary bladder. Electronically Signed: Daniel Torres MD at 9:57 EDT , Rhythm Strip Rhythm Strip: Sinus Rhythm Rate: 65 Ectopy: None Physical Exam Narrative GENERAL: cooperative HEENT: Atraumatic; normocephalic EYES; Anicteric, Normal Conjunctiva NECK; supple, normal thyroid, RESPIRATORY: Diminished to auscultation CARDIOVASCULAR: Regular S1 S2, GI: soft, normoactive bowel sounds, : No Renal angle tenderness; EXTREMITIES: No edema, no clubbing, MUSCULOSKELETAL: no muscle wasting NEURO: Awake; no lateralizing signs. SKIN: No Rash PSYCH; Flat affect Assessment & Plan Assessment/Plan (1) Acute kidney failure: QUALIFIERS: Acute renal failure type: unspecified Qualified Code( s): N17.9 - Acute kidney failure, unspecified PLAN: Plan Patient is a 57-year-old male who was brought to the hospital by family on account of increasing confusion found to have acute kidney injury admitted to monitored bed for subsequent eval 1. Acute kidney injury ? Patient admitted to monitored bed started on IV fluids renal duplex ordered. Progressed being monitored with serial BMPs potential nephrotoxic medications including HCTZ ramipril and diclofenac held 01/14/2023; Patient kidney function improving with rehydration. Kidney ultras ound demonstrated normal ultrasound of the kidneys and urinary bladder. 2. Acute metabolic encephalopathy -secondary to patient acute kidney injury management as discussed above 3. Essential hypertension ? Patient is currently on amlodipine as well as carvedilol his HCTZ and lisinopril held in view of impaired kidney function 4. Obstructive sleep apnea ? Patient apparently has not been compliant with CPAP therapy 5. Class III obesity with BMI of 46.5 ? Weight loss advised 6. Bipolar disorder ? Patient on lithium resumed 7. DVT prophylaxis ? SC heparin Time spent in the patient's overall evaluation,decision-making process, review of diagnostic data, adjustment of management, discussion with other providers, nursing nursing and ancillary staff involved in patient's care documentation, 35 Minutes Charges/Coding Visit Charges Inpatient E&M: 87618 Subs Hosp L2
[2023-01-14 08:55] VITALS: BP 111/60; PULSE 70; RESP 16; TEMP 37; O2SAT 93
[2023-01-14] MEDS: buPROPion (SR) 150 MG Tablet.SA PO ×2 (09:10→21:24)
[2023-01-14] MEDS: Ezetimibe 10 MG Tablet PO (09:10)
[2023-01-14] MEDS: Acetaminophen 500 MG Tablet PO (09:10)
[2023-01-14] MEDS: Heparin Injection (Vial) 5,000 UNIT/ML VIAL 5000 UNIT SC ×2 (09:10→21:23)
[2023-01-14] MEDS: Carvedilol 12.5 MG Tablet PO ×2 (09:10→21:24)
[2023-01-14] MEDS: Multivitamins,Therapeutic Tablet 1 TABLET PO (09:10)
[2023-01-14] MEDS: Lithium Carbonate 300mg Capsule 300 MG PO (09:20)
[2023-01-14 14:55] VITALS: BP 124/76; PULSE 69; RESP 18; TEMP 36.9; O2SAT 95
[2023-01-14 21:21] VITALS: BP 164/92; PULSE 68; RESP 16; TEMP 36.8; O2SAT 93
[2023-01-14] MEDS: Tamsulosin HCl 0.4 MG Capsule PO (21:24)
[2023-01-14] MEDS: lamoTRIgine 100 MG Tablet 400 MG PO (21:24)
[2023-01-14] MEDS: Lithium Carbonate 300mg Capsule 600 MG PO (21:25)
[2023-01-14] MEDS: amLODIPine 5 MG Tablet PO (21:25)
[2023-01-15] MEDS: 0.9% Normal Saline (1000mL) 1,000 ML 150 ML IV ×3 (02:16→17:40)
[2023-01-15 02:54] VITALS: BP 123/80; PULSE 63; RESP 16; TEMP 36.6; O2SAT 93
[2023-01-15 06:25] LABS: Hematocrit 39.3 % (40-54); Hemoglobin 12.5 g/dL (13.0-16.5); Mean Corp Hgb Conc 31.8 g/dL (32-36); Mean Corpuscular Hgb 29.7 pg (27.0-32.0); Mean Corpuscular Volume 93.3 fL (80-94); Mean Platelet Vol. 12.5 fl (6.2-12.0); Platelet Count 235 K/mm3 (150-450); RBC Distribution Width CV 13.4 % (11.6-14.6); Red Blood Count 4.21 M/mm3 (4.6-6.2); White Blood Count 7.9 K/mm3 (4.4-11.0)
[2023-01-15 07:08] LABS: Anion Gap 6 (5-15); BUN 26 mg/dL (7-18); BUN/Creat Ratio 19.1 RATIO (10-20); Calcium,Total 8.8 mg/dL (8.5-10.1); Chloride 112 mmol/L (98-107); Creatinine, Serum 1.36 mg/dL (0.70-1.30); EST Glomerular Filtration Rate 57 mL/min (>60); Est Glom Filt Rate - Afr Amer 69 mL/min (>60); Estimated Creatinine Clearance 61.88 ml/min; Glucose 100 mg/dL (74-106); Potassium 3.4 mmol/L (3.5-5.1); Sodium Level 139 mmol/L (136-145)
--- NOTE | 2023-01-15 07:44 | PCM.PN.HOSP ---
Reason for Visit Reason for Visit: Diagnoses Morbid (severe) obesity due to excess calories (01/12/23) Essential (primary) hypertension (01/12/23) Acute kidney failure, unspecified (01/12/23) Unspecified kidney failure (01/12/23) Disorientation, unspecified (01/12/23) Subjective Subjective Patient creatinine down to 1.36, potassium 3.4. X-ray of the left shoulder ordered for evaluation of patient significant left shoulder pain Objective Data Objective Data Vital Signs: Vital Signs Temp Pulse Resp BP Pulse Ox O2 Del Method 98 F 63 16 123/80 H 93 Room Air 01/15/23 02:54 01/15/23 02:54 01/15/23 02:54 01/15/23 02:54 01/15/23 02:54 01/15/23 02:54 Oxygen Delivery Method Room Air Weight: 146.9 kg Body Mass Index (BMI) 46.4 Intake & Output: Intake and Output for Last 24 Hours 01/13/23 01/14/23 01/15/23 23:59 23:59 23:59 Intake Total 2720 / 2720 4507.5 / 4507.5 1000 / 1000 Output Total 1700 / 2200 900 / 900 Balance 2720 / 2720 2807.5 / 2307.5 100 / 100 Lab / Micro Data 01/15/23 05:34 01/15/23 05:34 Labs: Laboratory Results - last 24 hr 01/15/23 05:34: WBC 7.9, RBC 4.21 L, Hgb 12.5 L, Hct 39.3 L, MCV 93.3, MCH 29.7, MCHC 31.8 L, RDW Std Deviation 46.0 H, RDW Coeff of Héctor 13.4, Plt Count 235, MPV 12.5 H, Sodium 139, Potassium 3.4 L, Chloride 112 H, Carbon Dioxide 21.0, Anion Gap 6, BUN 26 H, Creatinine 1.36 H, Estim Creat Clear Calc 61.88, Est GFR (MDRD) Af Amer 69, Est GFR (MDRD) Non-Af 57 L, BUN/Creatinine Ratio 19.1, Glucose 100, Calcium 8.8 Rhythm Strip Rhythm Strip: Sinus Rhythm Rate: 65 Ectopy: None Physical Exam Narrative GENERAL: cooperative HEENT: Atraumatic; normocephalic EYES; Anicteric, Normal Conjunctiva NECK; supple, normal thyroid, RESPIRATORY: Diminished to auscultation CARDIOVASCULAR: Regular S1 S2, GI: soft, normoactive bowel sounds, : No Renal angle tenderness; EXTREMITIES: No edema, no clubbing, MUSCULOSKELETAL: no muscle wasting NEURO: Awake; no lateralizing signs. SKIN: No Rash PSYCH; Flat affect Assessment & Plan Assessment/Plan (1) Acute kidney failure: QUALIFIERS: Acute renal failure type: unspecified Qualified Code(s): N17.9 - Acute kidney failure, unspecified PLAN: Plan Patient is a 57-year-old male who was brought to the hospital by family on account of increasing confusion found to have acute kidney injury admitted to monitored bed for subsequent eval 1. Acute kidney injury ? Patient admitted to monitored bed started on IV fluids renal duplex ordered. Progressed being monitored with serial BMPs potential nephrotoxic medications including HCTZ ramipril and diclofenac held 01/14/2023; Patient kidney function improving with rehydration. Kidney ultrasound demonstrated normal ultrasound of the kidneys and urinary bladder. ? 01/15/2023 creatinine down to 1.36 2. Acute metabolic encephalopathy -secondary to patient acute kidney injury management as discussed above 3. Essential hypertension ? Patient is currently on amlodipine as well as carvedilol his HCTZ and lisinopril held in view of impaired kidney function 4. Obstructive sleep apnea ? Patient apparently has not been compliant with CPAP therapy 5. Class III obesity with BMI of 46.5 ? Weight loss advised 6. Bipolar disorder ? Patient on lithium resumed 7. DVT prophylaxis ? SC heparin 8. Hypokalemia ? Corrected per protocol repeat labs ordered for eval 9. Left shoulder pain ? Requested for 2 view x-ray to rule out occult fracture 10. Physical deconditioning - Requested for PT OT eval and high school social studies teacher to assist with discharge planning Time spent in the patient's overall evaluation,decision-making process, review of diagnostic data, adjustment of management, discussion with other providers, nursing nursing and ancillary staff involved in patient's care documentation, 35 Minutes Charges/Coding Visit Charges Inpatient E&M: 20275 Subs Hosp L2
[2023-01-15 07:54] VITALS: BP 136/71; PULSE 63; RESP 16; TEMP 36.6; O2SAT 93
--- NOTE | 2023-01-15 10:00 | RAD_ITS ---
STUDY: X-RAY - LEFT SHOULDER REASON FOR EXAM: Male, 57 years old. pain TECHNIQUE: 2 view(s) of the shoulder. COMPARISON: 02/05/2022. FINDINGS: There is moderate degenerative arthrosis of the glenohumeral articulation. There is hypertrophic osteoarthrosis of the acromioclavicular joint with inferior osseous spur formation. Normal acromion. Bone anchor in the humeral head from previous rotator cuff surgery. The soft tissue structures are unremarkable. There is no demonstrated fracture. Normal visualized pulmonary apex. RAD/Shoulder min 2 Views IMPRESSION: No change. No acute abnormality. Degenerative changes, stable. Electronically Signed: Rohan Vela MD at 23:00 EDT ,
[2023-01-15] MEDS: Heparin Injection (Vial) 5,000 UNIT/ML VIAL 5000 UNIT SC ×2 (10:48→21:28)
--- NOTE | 2023-01-15 13:55 | CHAPLAIN ---
Type of Pastoral Visit ___ Initial Visit ___ Follow-up Visit ___ On-call Visit ___ General Patient Visit ___ Spiritual Assessment ___ Family Conference ___ Bereavement ___ Rapid Response ___ Code Blue ___ Other (describe below) Pastoral Care Referral From ___ Patient ___ Family ___ Nurse ___ Physician ___ Data Administrator ___ Cableway Operator ___ Other (describe below) Sacrament/Intervention ___ Active listening ___ Anointing ___ Anglican ___ Bereavement ___ Communion ___ Giovana exploration ___ ___ Life review ___ Prayer ___ Reconciliation ___ Sacrament of Sick ___ Supportive presence ___ Wedding ___ Other (describe below) Pastoral Comments return visit to patient who is able to talk a little more freely today; pt states that some things are getter better; pt still has difficulty in speaking in
[2023-01-15 14:22] VITALS: BP 170/94; PULSE 65; RESP 16; TEMP 36.7; O2SAT 93
[2023-01-15] MEDS: Carvedilol 12.5 MG Tablet PO (14:27)
[2023-01-15] MEDS: Acetaminophen 500 MG Tablet PO (14:28)
[2023-01-15] MEDS: Lithium Carbonate 300mg Capsule 300 MG PO (14:30)
[2023-01-15] MEDS: Potassium Chloride Oral Tablet 20 MEQ 40 MEQ PO (14:57)
[2023-01-15 17:44] VITALS: BP 154/87; PULSE 65; RESP 16; TEMP 36.6; O2SAT 95
[2023-01-15 21:23] VITALS: BP 158/97; PULSE 67; RESP 17; TEMP 37.1; O2SAT 96
--- NOTE | 2023-01-15 23:18 | NURSING ---
pt refused PM PO meds, per pt gets nauseated with intake. RN educated pt about the meds and what they're for. Pt cont to refused PO meds. aware
[2023-01-16] MEDS: 0.9% Normal Saline (1000mL) 1,000 ML 150 ML IV ×4 (00:15→21:09)
[2023-01-16 04:27] VITALS: BP 144/86; PULSE 65; RESP 17; TEMP 36.9; O2SAT 97
[2023-01-16 06:17] LABS: Hematocrit 39.7 % (40-54); Hemoglobin 12.8 g/dL (13.0-16.5); Mean Corp Hgb Conc 32.2 g/dL (32-36); Mean Corpuscular Volume 93.2 fL (80-94); Mean Platelet Vol. 12.2 fl (6.2-12.0); Platelet Count 234 K/mm3 (150-450); RBC Distribution Width CV 13.2 % (11.6-14.6); RBC Distribution Width SD 45.1 fl (35.1-43.9); Red Blood Count 4.26 M/mm3 (4.6-6.2); White Blood Count 8.2 K/mm3 (4.4-11.0)
[2023-01-16 06:49] LABS: Anion Gap 5 (5-15); BUN 17 mg/dL (7-18); BUN/Creat Ratio 15.5 RATIO (10-20); Chloride 112 mmol/L (98-107); EST Glomerular Filtration Rate 73 mL/min (>60); Est Glom Filt Rate - Afr Amer 89 mL/min (>60); Glucose 102 mg/dL (74-106); Potassium 3.5 mmol/L (3.5-5.1); Sodium Level 139 mmol/L (136-145)
[2023-01-16 08:57] VITALS: BP 164/102; PULSE 68; RESP 16; TEMP 36.9; O2SAT 95
[2023-01-16] MEDS: Heparin Injection (Vial) 5,000 UNIT/ML VIAL 5000 UNIT SC (09:03)
--- NOTE | 2023-01-16 09:36 | MRI_ITS ---
EXAM: MR brain with and without contrast. HISTORY: seizures, metabolic encephalopathy, confusion TECHNIQUE: MR Brain WO/W Contrast COMPARISON: Head CT January 12, 2023. MRI brain January 03, 2021 LIMITATIONS: None. BRAIN: No diffusion abnormalities. Moderate white matter changes are grossly similar to the prior MRI exam. Calcification of the basal ganglia and dentate nuclei bilaterally are incidentally noted. No enhancing lesions. VENTRICLES: No hydrocephalus. EXTRA-AXIAL SPACES: No hemorrhage. CALVARIUM/SKULL BASE: Normal. FACE/SINUSES: Visualized portions normal. SOFT TISSUES: Normal. OTHER: None. CONCLUSION: No acute infarct. Moderate white matter changes are nonspecific, but often secondary to chronic microvascular ischemia. Findings are without significant change from the prior MRI. Electronically Signed: Fernandez Dey MD at 8:16 EDT , MRI/Brain W/WO Contrast IMPRESSION: undefined
--- NOTE | 2023-01-16 10:17 | CASEMGMT ---
Discharge Planning A list of SNF providers including quality and resource use data and consistent with the patient?s preferred geographic region, medical needs, and insurance network was created in [facility] Guide. This list was provided to the SW. Lila Gomez Discharge Planning Asst.
--- NOTE | 2023-01-16 10:20 | CASEMGMT ---
SW went to patient's room. Patient also had a visitor present. ITA introduced self and role at [facility]. Patient's friend's name was Tabatha. ITA explained to patient that SW was informed he will need to go to a assisted. Patient said, yes. SW asked patient if he knows where he would want to go and patient said, No, I need you to tell me. SW explained SW cannot tell him which SNF, but he can talk with his friend to discuss it. Patient was in agreement. Patient's friend then followed ITA into the hallway. Tabatha said patient is confused and not himself. Tabatha said patient has no proxy and his family is not involved. Tabatha asked if ITA could get him a proxy. ITA told her that if patient is confused ITA cannot do a Healthcare Power of Events Traffic Controller with patient. Patient does have two sons Shakeel and Lillie Kent. However, per Tabatha there is a no contact order against patient where he is not allowed to contact his sons. Tabatha said that is why he was in prison. Patient tried to contact his sons and the associate juvenile court judge put him in prison. Patient does have a cousin coming in later today. Amanda Hall MSW KATEY
--- NOTE | 2023-01-16 11:07 | PN.HOSP_ITS ---
Reason for Visit Reason for Visit: Diagnoses Morbid (severe) obesity due to excess calories (01/12/23) Essential (primary) hypertension (01/12/23) Acute kidney failure, unspecified (01/12/23) Unspecified kidney failure (01/12/23) Disorientation, unspecified (01/12/23) Subjective Subjective Seen creatinine back to baseline. Patient however complains of difficulty with swallowing throwing almost everything up. MRI of the brain ordered for subs equent eval Objective Data Objective Data Vital Signs: Vital Signs Temp Pulse Resp BP Pulse Ox O2 Del Method 98.4 F 68 16 164/102 H 95 Room Air 01/16/23 08:57 01/16/23 08:57 01/16/23 08:57 01/16/23 08:57 01/16/23 08:57 01/16/23 09:08 Oxygen Delivery Method Room Air Weight: 146.9 kg Body Mass Index (BMI) 46.4 Intake & Output: Intake and Output for Last 24 Hours 01/14/23 01/15/23 01/16/23 23:59 23:59 23:59 Intake Total 4507.5 / 4507.5 3000 / 3000 1857.5 / 1857.5 Output Total 1700 / 2200 1750 / 1750 750 / 750 Balance 2807.5 / 2307.5 1250 / 1250 1107.5 / 1107.5 Lab / Micro Data 01/16/23 05:24 01/16/23 05:24 Labs: Laboratory Results - last 24 hr 01/16/23 05:24: WBC 8.2, RBC 4.26 L, Hgb 12.8 L, Hct 39.7 L, MCV 93.2, MCH 30.0, MCHC 32.2, RDW Std Deviation 45.1 H, RDW Coeff of Héctor 13.2, Plt Count 234, MPV 12.2 H, Sodium 139, Potassium 3.5, Chloride 112 H, Carbon Dioxide 22.0, Anion Gap 5, BUN 17, Creatinine 1.10, Estim Creat Clear Calc 76.50, Est GFR (MDRD) Af Amer 89, Est GFR (MDRD) Non-Af 73, BUN/Creatinine Ratio 15.5, Glucose 102, Calcium 9.0 Radiography Diagnostic Testing: Radiology Impression Shoulder X-Ray 09/21/23 10:00 IMPRESSION: No change. No acute abnormality. Degenerative changes, stable. Electronically Signed: Rohan Vela MD at 23:00 EDT , Rhythm Strip Rhythm Strip: Sinus Rhythm Rate: 65 Ectopy: None Physical Exam Narrative GENERAL: cooperative HEENT: Atraumatic; normocephalic EYES; Anicteric, Normal Conjunctiva NECK; supple, normal thyroid, RESPIRATORY: Diminished to auscultation CARDIOVASCULAR: Regular S1 S2, GI: soft, normoactive bowel sounds, : No Renal angle tenderness; EXTREMITIES: No edema, no clubbing, MUSCULOSKELETAL: no muscle wasting NEURO: Awake; no lateralizing signs. SKIN: No Rash PSYCH; Flat affect Assessment & Plan Assessment/Plan (1) Acute kidney failure: QUALIFIERS: Acute renal failure type: unspecified Qualified Code(s): N17.9 - Acute kidney failure, unspecified PLAN: Plan Patient is a 57-year-old male who was brought to the hospital by family on account of increasing confusion found to have acute kidney injury admitted to monitored bed for subsequent eval 1. Acute kidney injury ? Patient admitted to monitored bed started on IV fluids renal duplex ordered. Progressed being monitored with serial BMPs potential nephrotoxic medications including HCTZ ramipril and diclofenac held 01/14/2023; Patient kidney function improving with rehydration. Kidney ultrasound demonstrated normal ultrasound of the kidneys and urinary bladder. ? 01/15/2023 creatinine down to 1.36 ? 01/16/2023; kidney function back to baseline 2. Acute metabolic encephalopathy -secondary to patient acute kidney injury management as discussed above ? 01/16/2023 patient continues to experience behavior which cannot be explained only by his metabolic derangement MRI of the brain with and without contrast ordered for subsequent eval 3. Essential hypertension ? Patient is currently on amlodipine as well as carvedilol his HCTZ and lisinopril held in view of impaired kidney function 4. Obstructive sleep apnea ? Patient apparently has not been compliant with CPAP therapy 5. Class III obesity with BMI of 46.5 ? Weight loss advised 6. Bipolar disorder ? Patient on lithium resumed 7. DVT prophylaxis ? SC heparin 8. Hypokalemia ? Corrected per protocol repeat labs ordered for eval 9. Left shoulder pain ? Requested for 2 view x-ray to rule out occult fracture 10. Physical deconditioning - Requested for PT OT eval and social science research assistant to assist with discharge planning Time spent in the patient's overall evaluation,decision-making process, review of diagnostic data, adjustment of management, discussion with other providers, nursing nursing and ancillary staff involved in patient's care documentation, 3 5 Minutes Charges/Coding Visit Charges Inpatient E&M: 28168 Subs Hosp L2
[2023-01-16 12:17] VITALS: BP 163/98; PULSE 75; RESP 16; TEMP 36.9; O2SAT 96
--- NOTE | 2023-01-16 15:08 | CASEMGMT ---
SW went to patient's room to talk with him again since he was alone. Patient was lying in bed with his eyes closed. SW said patient's name and introduced self. Patient turned and looked at SW then turned his head back and closed his eyes. SW asked patient if now is an okay time to talk. Patient said nothing and kept his eyes closed. SW said patient's name again and patient told SW, Wait a minute. ITA realized patient may have been using the restroom so SW apolgized and said SW will come back. Amanda Hall GAS ENGINE REPAIRER KATEY
--- NOTE | 2023-01-16 15:29 | CASEMGMT ---
SW went back to patient's room. Introduced self again and role at [facility]. Patient said it was an okay time to talk. SW asked patient if he knows why he needs a mcc. It took patient awhile to get the words out, but he eventually said to get rehab. SW told him that is great and he is right. SW told patient that SW can leave the list of facilities with him and maybe talk with one of his friends about making a choice. Patient will need insurance authorization after we have an accepting facility. Amanda DEL TORO
[2023-01-16 19:02] VITALS: BP 167/101; PULSE 66; RESP 16; TEMP 36.8; O2SAT 94
--- NOTE | 2023-01-16 21:12 | NURSING ---
Pt refused all evening meds. Stated that he's afraid he's going to get sick and throw up if he takes them. Pt offered by this rn to see if md would order any meds for nausea, but pt stated no we are not going to do that either. Pt becoming more visibly upset and wants to be left alone so he can sleep.
[2023-01-16 21:15] VITALS: BP 151/100; PULSE 71; RESP 18; TEMP 37; O2SAT 96
[2023-01-17 03:15] VITALS: BP 147/78; PULSE 70; RESP 16; TEMP 36.9; O2SAT 94
[2023-01-17] MEDS: 0.9% Normal Saline (1000mL) 1,000 ML 150 ML IV ×4 (03:17→23:53)
--- NOTE | 2023-01-17 08:33 | PN.HOSP_ITS ---
Reason for Visit Reason for Visit: Diagnoses Morbid (severe) obesity due to excess calories (01/12/23) Essential (primary) hypertension (01/12/23) Acute kidney failure, unspecified (01/12/23) Unspecified kidney failure (01/12/23) Disorientation, unspecified (01/12/23) Subjective Subjective Patient seen has been experiencing bouts of nausea and vomiting. MRI obtained did Moderate white matter changes are nonspecific, but often secondary to chr onic microvascular ischemia. Findings are without significant change from the prior MRI Objective Data Objective Data Vital Signs: Vital Signs Temp Pulse Resp BP Pulse Ox O2 Del Method 98.5 F 70 16 147/78 H 94 Room Air 01/17/23 03:15 01/17/23 03:15 01/17/23 03:15 01/17/23 03:15 01/17/23 03:15 01/17/23 03:24 Oxygen Delivery Method Room Air Weight: 146.9 kg Body Mass Index (BMI) 46.4 Intake & Output: Intake and Output for Last 24 Hours 01/15/23 01/16/23 01/17/23 23:59 23:59 23:59 Intake Total 3000 / 3000 3937.5 / 3937.5 920 / 920 Output Total 1750 / 1750 1730 / 1730 500 / 500 Balance 1250 / 1250 2207.5 / 2207.5 420 / 420 Lab / Micro Data 01/16/23 05:24 01/16/23 05:24 Radiography Diagnostic Testing: Radiology Impression Brain MRI 01/16/23 09:36 IMPRESSION: undefined Rhythm Strip Rhythm Strip: Sinus Rhythm Rate: 65 Ectopy: None Physical Exam Narrative GENERAL: cooperative HEENT: Atraumatic; normocephalic EYES; Anicteric, Normal Conjunctiva NECK; supple, normal thyroid, RESPIRATORY: Diminished to auscultation CARDIOVASCULAR: Regular S1 S2, GI: soft, normoactive bowel sounds, : No Renal angle tenderness; EXTREMITIES: No edema, no clubbing, MUSCULOSKELETAL: no muscle wasting NEURO: Awake; no lateralizing signs. SKIN: No Rash PSYCH; Flat affect Assessment & Plan Assessment/Plan (1) Acute kidney failure: QUALIFIERS: Acute renal failure type: unspecified Qualified Code(s): N17.9 - Acute kidney failure, unspecified PLAN: Plan Patient is a 57-year-old male who was brought to the hospital by family on account of increasing confusion found to have acute kidney injury admitted to monitored bed for subsequent eval 1. Acute kidney injury ? Patient admitted to monitored bed started on IV fluids renal duplex ordered. Progressed being monitored with serial BMPs potential nephrotoxic medications including HCTZ ramipril and diclofenac held 01/14/2023; Patient kidney function improving with rehydration. Kidney ultrasound demonstrated normal ultrasound of the kidneys and urinary bladder. ? 01/15/2023 creatinine down to 1.36 ? 01/16/2023; kidney function back to baseline 2. Acute metabolic encephalopathy -secondary to patient acute kidney injury management as discussed above ? 01/16/2023 patient continues to experience behavior which cannot be explained only by his metabolic derangement MRI of the brain with and without contrast ordered for subsequent eval ? 01/17/2023; MRI obtained did demonstrateModerate white matter changes are nonspecific, but often secondary to chronic microvascular ischemia. Findings are without significant change from the prior MRI 3. Essential hypertension ? Patient is currently on amlodipine as well as carvedilol his HCTZ and lisinopril held in view of impaired kidney function 4. Obstructive sleep apnea ? Patient apparently has not been compliant with CPAP therapy 5. Class III obesity with BMI of 46.5 ? Weight loss advised 6. Bipolar disorder ? Patient on lithium resumed 7. DVT prophylaxis ? SC heparin 8. Hypokalemia ? Corrected per protocol repeat labs ordered for eval 9. Left shoulder pain ? Requested for 2 view x-ray to rule out occult fracture 10. Physical deconditioning - Requested for PT OT eval and social work specialist to assist with discharge planning Time spent in the patient's overall evaluation,decision-making process, review of diagnostic data, adjustment of management, discussion with other providers, nursing nursing and ancillary staff involved in patient's care documentation, 35 Minutes Charges/Coding Visit Charges Inpatient E&M: 50232 Subs Hosp L2
--- NOTE | 2023-01-17 08:56 | CASEMGMT ---
Social Work SW met w/pt briefly regarding discharge plan. Pt aware he will need to go to a SNF. SW inquired if he has yet reviewed the list of detention facilities to make a choice, pt states he has not. SW asked pt to review the list and come up with a couple of places where he would like referrals sent. SW explained SW will return Thursday to again ask for choices and send out referrals. Pt states understanding. SW will continue to follow. HEATHER Medrano
--- NOTE | 2023-01-17 09:21 | CASEMGMT ---
Social Work SW spoke w/pt about LW/POA. He has not completed the documents. He may want to complete them, though needs to think about who he would like to put as his POA. SW explained we can check back w/him on this on Thursday. HEATHER Medrano
[2023-01-17 09:39] VITALS: BP 157/88; PULSE 71; RESP 16; TEMP 36.7; O2SAT 96
[2023-01-17] MEDS: Lithium Carbonate 300mg Capsule 300 MG PO (09:43)
[2023-01-17] MEDS: Carvedilol 12.5 MG Tablet PO ×2 (09:43→20:57)
[2023-01-17] MEDS: Ezetimibe 10 MG Tablet PO (09:45)
[2023-01-17] MEDS: buPROPion (SR) 150 MG Tablet.SA PO ×2 (09:45→20:26)
[2023-01-17] MEDS: Ondansetron 4 MG/2 ML Vial IV (10:21)
[2023-01-17 15:19] VITALS: BP 152/95; PULSE 71; RESP 16; TEMP 36.9; O2SAT 92
[2023-01-17] MEDS: Acetaminophen 500 MG Tablet PO (17:07)
--- NOTE | 2023-01-17 17:24 | NURSING ---
Pt has had 2 women in to see him today- Marsha Bowden and Marsha Gibbs ([phone]). Both are identified as friends. This RN made women aware we could not disclose specific medical information. Marsha Oliver insisting that she would step up to be pts healthcare POA. Informed her that unfortunately, no one has come forward as an identified NOK or additional family member and that in the current mental state that the pt is in, he would be unable to designate a healthcare POA. Marsha Oliver continued to try to ask specific questions related to current health status. She is concerned that the pt is having a headache and pain in his shoulders and continued to voice her concern about this. Will order EKG.
[2023-01-17 20:20] VITALS: BP 143/107; PULSE 69; RESP 18; TEMP 36.6; O2SAT 96
[2023-01-17] MEDS: Tamsulosin HCl 0.4 MG Capsule PO (20:26)
[2023-01-17] MEDS: amLODIPine 5 MG Tablet PO (20:26)
[2023-01-17] MEDS: lamoTRIgine 100 MG Tablet 400 MG PO (21:40)
[2023-01-17 22:18] VITALS: BP 160/102; PULSE 68; RESP 18; TEMP 36.9; O2SAT 95
[2023-01-17] MEDS: Lithium Carbonate 300mg Capsule 600 MG PO (22:18)
[2023-01-18] MEDS: Acetaminophen 500 MG Tablet PO (02:46)
[2023-01-18 03:00] VITALS: BP 162/95; PULSE 70; RESP 16; TEMP 36.7; O2SAT 95
[2023-01-18] MEDS: 0.9% Normal Saline (1000mL) 1,000 ML 150 ML IV (05:33)
--- NOTE | 2023-01-18 08:32 | PCM.PN.HOSP ---
Reason for Visit Reason for Visit: Diagnoses Morbid (severe) obesity due to excess calories (01/12/23) Essential (primary) hypertension (01/12/23) Acute kidney failure, unspecified (01/12/23) Unspecified kidney failure (01/12/23) Disorientation, unspecified (01/12/23) Subjective Subjective Seen complains of intermittent episodes of nausea and vomiting work-up so far negative to date. Patient remains deconditioned and plan is for patient to be transferred to intermediate facility possibly on 01/19/2023 pending insurance approval Objective Data Objective Data Vital Signs: Vital Signs Temp Pulse Resp BP Pulse Ox O2 Del Method 98.0 F 70 16 162/95 H 95 Room Air 01/18/23 03:00 01/18/23 03:00 01/18/23 03:00 01/18/23 03:00 01/18/23 03:00 01/18/23 03:00 Oxygen Delivery Method Room Air Weight: 146.9 kg Body Mass Index (BMI) 46.4 Intake & Output: Intake and Output for Last 24 Hours 01/16/23 01/17/23 01/18/23 23:59 23:59 23:59 Intake Total 3937.5 / 3937.5 4400 / 4400 850 / 850 Output Total 1730 / 1730 1100 / 1100 Balance 2207.5 / 2207.5 3300 / 3300 850 / 850 Lab / Micro Data 01/18/23 09:16 01/18/23 09:16 Radiography Diagnostic Testing: Radiology Impression Brain MRI 01/16/23 09:36 IMPRESSION: undefined Rhythm Strip Rhythm Strip: Sinus Rhythm Rate: 65 Ectopy: None Physical Exam Narrative GENERAL: cooperative HEENT: Atraumatic; normocephalic EYES; Anicteric, Normal Conjunctiva NECK; supple, normal thyroid, RESPIRATORY: Diminished to auscultation CARDIOVASCULAR: Regular S1 S2, GI: soft, normoactive bowel sounds, : No Renal angle tenderness; EXTREMITIES: No edema, no clubbing, MUSCULOSKELETAL: no muscle wasting NEURO: Awake; no lateralizing signs. SKIN: No Rash PSYCH; Flat affect Assessment & Plan Assessment/Plan (1) Acute kidney failure: QUALIFIERS: Acute renal failure type: unspecified Qualified Code(s): N17.9 - Acute kidney failure, unspecified PLAN: Plan Patient is a 57-year-old male who was brought to the hospital by family on account of increasing confusion found to have acute kidney injury admitted to monitored bed for subsequent eval 1. Acute kidney injury ? Patient admitted to monitored bed started on IV fluids renal duplex ordered. Progressed being monitored with serial BMPs potential nephrotoxic medications including HCTZ ramipril and diclofenac held 01/14/2023; Patient kidney function improving with rehydration. Kidney ultrasound demonstrated normal ultrasound of the kidneys and urinary bladder. ? 01/15/2023 creatinine down to 1.36 ? 01/16/2023; kidney function back to baseline 2. Acute metabolic encephalopathy -secondary to patient acute kidney injury management as discussed above ? 01/16/2023 patient continues to experience behavior which cannot be explained only by his metabolic derangement MRI of the brain with and without contrast ordered for subsequent eval ? 01/17/2023; MRI obtained did demonstrateModerate white matter changes are nonspecific, but often secondary to chronic microvascular ischemia. Findings are without significant change from the prior MRI 3. Essential hypertension ? Patient is currently on amlodipine as well as carvedilol his HCTZ and lisinopril held in view of impaired kidney function 4. Obstructive sleep apnea ? Patient apparently has not been compliant with CPAP therapy 5. Class III obesity with BMI of 46.5 ? Weight loss advised 6. Bipolar disorder ? Patient on lithium resumed 7. DVT prophylaxis ? SC heparin 8. Hypokalemia ? Corrected per protocol repeat labs ordered for eval 9. Left shoulder pain ? Requested for 2 view x-ray to rule out occult fracture 10. Physical deconditioning - Requested for PT OT eval and social media intern to assist with discharge planning Time spent in the patient's overall evaluation,decision-making process, review of diagnostic data, adjustment of management, discussion with other providers, nursing nursing and ancillary staff involved in patient's care documentation, 35 Minutes Charges/Coding Visit Charges Inpatient E&M: 23756 Subs Hosp L2
[2023-01-18 08:40] VITALS: BP 179/104; PULSE 73; RESP 16; TEMP 36.7; O2SAT 95
[2023-01-18] MEDS: Lithium Carbonate 300mg Capsule 300 MG PO (08:50)
[2023-01-18] MEDS: buPROPion (SR) 150 MG Tablet.SA PO ×2 (08:50→20:28)
[2023-01-18] MEDS: Heparin Injection (Vial) 5,000 UNIT/ML VIAL 5000 UNIT SC ×2 (08:50→21:13)
[2023-01-18] MEDS: Multivitamins,Therapeutic Tablet 1 TABLET PO (08:50)
[2023-01-18] MEDS: Ezetimibe 10 MG Tablet PO (08:50)
[2023-01-18] MEDS: Carvedilol 12.5 MG Tablet PO ×2 (08:50→21:13)
[2023-01-18 09:35] LABS: Absolute Lymphocyte Count 1.56 X10^3/uL (0.83-4.51); Absolute Neutrophil Count 5.4 X10^3/uL (2.0-7.7); Basophil# 0.04 X10^3/uL; Basophil% 0.5 % (0-1); Eosinophil# 0.35 X10^3/uL; Eosinophils% 4.3 % (0-5); Hematocrit 38.8 % (40-54); Hemoglobin 12.6 g/dL (13.0-16.5); Lymphocyte # 1.56 X10^3/ul (0.83-4.51); Lymphocyte % 19.1 % (19-41); Mean Corp Hgb Conc 32.5 g/dL (32-36); Mean Corpuscular Hgb 30.3 pg (27.0-32.0); Mean Corpuscular Volume 93.3 fL (80-94); Mean Platelet Vol. 11.6 fl (6.2-12.0); Monocyte# 0.75 X10^3/uL; Monocyte% 9.2 % (0-10); NRBC Flagged by Analyzer 0 % (0-5); Neutrophil # 5.44 X10^3/uL (2.7-7.7); Neutrophil % 66.7 % (47-70); Platelet Count 209 K/mm3 (150-450); RBC Distribution Width CV 13.4 % (11.6-14.6); RBC Distribution Width SD 45.9 fl (35.1-43.9); Red Blood Count 4.16 M/mm3 (4.6-6.2); White Blood Count 8.2 K/mm3 (4.4-11.0)
[2023-01-18 09:54] LABS: AST(SGOT) 29 U/L (15-37); Alanine Aminotransfer ALT/SGPT 47 U/L (16-61); Albumin, Serum 3.1 g/dL (3.2-5.0); Alkaline Phosphatase 110 U/L (45-117); Anion Gap 10 (5-15); BUN 9 mg/dL (7-18); BUN/Creat Ratio 9.5 RATIO (10-20); Bilirubin, Direct 0.23 mg/dL (0.00-0.30); Calcium,Total 8.9 mg/dL (8.5-10.1); Chloride 109 mmol/L (98-107); Creatinine, Serum 0.95 mg/dL (0.70-1.30); EST Glomerular Filtration Rate 87 mL/min (>60); Est Glom Filt Rate - Afr Amer 105 mL/min (>60); Estimated Creatinine Clearance 88.58 ml/min; Globulin 2.8 g/dL (2.2-4.2); Glucose 107 mg/dL (74-106); Magnesium 2.2 mg/dL (1.6-2.6); Potassium 3.7 mmol/L (3.5-5.1); Protein, Total 5.9 g/dL (6.4-8.2); Sodium Level 141 mmol/L (136-145)
[2023-01-18 10:41] VITALS: BP 139/95
[2023-01-18] MEDS: NYSTATIN 500,000 UNIT/5 ML UDC 500000 UNIT PO ×2 (15:28→20:28)
[2023-01-18] MEDS: Furosemide 100 MG/10 ML Vial 60 MG IV (15:28)
[2023-01-18] MEDS: 0.9% Saline Lock 10 ML Syringe IV ×2 (15:30→17:51)
[2023-01-18 15:32] VITALS: BP 160/99; PULSE 71; RESP 16; TEMP 37.1; O2SAT 93
[2023-01-18] MEDS: Ondansetron 4 MG/2 ML Vial IV (17:51)
[2023-01-18] MEDS: Tamsulosin HCl 0.4 MG Capsule PO (20:28)
[2023-01-18] MEDS: Lithium Carbonate 300mg Capsule 600 MG PO (20:29)
[2023-01-18 21:12] VITALS: BP 168/103; PULSE 72; RESP 18; TEMP 37.1; O2SAT 95
[2023-01-18] MEDS: amLODIPine 5 MG Tablet PO (21:13)
[2023-01-18] MEDS: lamoTRIgine 100 MG Tablet 400 MG PO (21:13)
[2023-01-19 03:12] VITALS: BP 146/96; PULSE 71; RESP 18; TEMP 37.3; O2SAT 95
[2023-01-19 06:56] LABS: Hematocrit 39.3 % (40-54); Hemoglobin 12.4 g/dL (13.0-16.5); Mean Corp Hgb Conc 31.6 g/dL (32-36); Mean Corpuscular Hgb 29.5 pg (27.0-32.0); Mean Corpuscular Volume 93.6 fL (80-94); Mean Platelet Vol. 12.3 fl (6.2-12.0); Platelet Count 208 K/mm3 (150-450); RBC Distribution Width CV 13.3 % (11.6-14.6); RBC Distribution Width SD 45.8 fl (35.1-43.9); White Blood Count 8.3 K/mm3 (4.4-11.0)
[2023-01-19 07:17] LABS: AST(SGOT) 25 U/L (15-37); Alanine Aminotransfer ALT/SGPT 45 U/L (16-61); Albumin, Serum 2.9 g/dL (3.2-5.0); Alkaline Phosphatase 103 U/L (45-117); Anion Gap 7 (5-15); BUN 11 mg/dL (7-18); BUN/Creat Ratio 12.3 RATIO (10-20); Calcium,Total 8.8 mg/dL (8.5-10.1); Chloride 108 mmol/L (98-107); EST Glomerular Filtration Rate 93 mL/min (>60); Est Glom Filt Rate - Afr Amer 112 mL/min (>60); Glucose 97 mg/dL (74-106); Phosphorus 3.1 mg/dL (2.5-4.9); Potassium 3.3 mmol/L (3.5-5.1); Protein, Total 5.9 g/dL (6.4-8.2); Sodium Level 139 mmol/L (136-145)
--- NOTE | 2023-01-19 08:47 | PN.HOSP_ITS ---
Reason for Visit Reason for Visit: Diagnoses Morbid (severe) obesity due to excess calories (01/12/23) Essential (primary) hypertension (01/12/23) Acute kidney failure, unspecified (01/12/23) Unspecified kidney failure (01/12/23) Disorientation, unspecified (01/12/23) Subjective Subjective Feels better. Objective Data Objective Data Vital Signs: Vital Signs Temp Pulse Resp BP Pulse Ox O2 Del Method 37.3 C H 71 18 146/96 H 95 Room Air 01/19/23 03:12 01/19/23 03:12 01/19/23 03:12 01/19/23 03:12 01/19/23 03:12 01/19/23 03:12 Oxygen Delivery Method Room Air Weight: 146.9 kg Body Mass Index (BMI) 46.4 Intake & Output: Intake and Output for Last 24 Hours 01/17/23 01/18/23 01/19/23 23:59 23:59 23:59 Intake Total 4400 / 4400 1597.5 / 1597.5 Output Total 1100 / 1100 1600 / 1600 400 / 400 Balance 3300 / 3300 -2.5 / -2.5 -400 / -400 Lab / Micro Data 01/19/23 05:48 01/19/23 05:48 Labs: Laboratory Results - last 24 hr 01/18/23 09:16: WBC 8.2, RBC 4.16 L, Hgb 12.6 L, Hct 38.8 L, MCV 93.3, MCH 30.3, MCHC 32.5, RDW Std Deviation 45.9 H, RDW Coeff of Héctor 13.4, Plt Count 209, MPV 11.6, Immature Gran % (Auto) 0.200, Neut % (Auto) 66.7, Lymph % (Auto) 19.1, [place] % (Auto) 9.2, Eos % (Auto) 4.3, Baso % (Auto) 0.5, Absolute Neuts (auto) 5.4, Absolute Lymphs (auto) 1.56, Nucleated RBC % 0, Sodium 141, Potassium 3.7, Chloride 109 H, Carbon Dioxide 22.0, Anion Gap 10, BUN 9, Creatinine 0.95, Estim Creat Clear Calc 88.58, Est GFR (MDRD) Af Amer 105, Est GFR (MDRD) Non-Af 87, BUN/Creatinine Ratio 9.5 L, Glucose 107 H, Calcium 8.9, Magnesium 2.2, Total Bilirubin 0.50, Direct Bilirubin 0.23, AST 29, ALT 47, Alkaline Phosphatase 110, Total Protein 5.9 L, Albumin 3.1 L, Globulin 2.8 01/19/23 05:48: WBC 8.3, RBC 4.20 L, Hgb 12.4 L, Hct 39.3 L, MCV 93.6, MCH 29.5, MCHC 31.6 L, RDW Std Deviation 45.8 H, RDW Coeff of Héctor 13.3, Plt Count 208, MPV 12.3 H, Sodium 139, Potassium 3.3 L, Chloride 108 H, Carbon Dioxide 24.0, Anion Gap 7, BUN 11, Creatinine 0.90, Estim Creat Clear Calc 93.50, Est GFR (MDRD) Af Amer 112, Est GFR (MDRD) Non-Af 93, BUN/Creatinine Ratio 12.3, Glucose 97, Calcium 8.8, Phosphorus 3.1, Total Bilirubin 0.50, AST 25, ALT 45, Alkaline Phosphatase 103, Total Protein 5.9 L, Albumin 2.9 L, Globulin 3.0, Albumin/Globulin Ratio 1.0 Rhythm Strip Rhythm Strip: Sinus Rhythm Rate: 65 Ectopy: None Physical Exam Const alert and no apparent distress HEENT head/scalp atraumatic and moist oral mucous membranes Resp normal respiratory effort, no retractions, no use of accessory muscles and clear to auscultation bilaterally Cardio regular rate, regular rhythm, S1 normal heart sound and S2 normal heart sound GI normal to inspection, nondistended, normoactive bowel sounds Assessment & Plan Assessment/Plan (1) [place] toxicity: QUALIFIERS: Encounter type: initial encounter Injury intent: acci dental or unintentional Qualified Code(s): T56.891A - Toxic effect of other metals, accidental (unintentional), initial encounter PLAN: Suspected [place] level today was 1.3 which is slightly high. It is unclear what the patient's lithium level was upon arrival but with patient's reported ataxia and confusion is concerning that the patient had lithium toxicity. Patient takes lithium 300 in the morning and 600 at night. I am recommending the dosing be changed to 300 twice daily. Will initiate the twice daily dosing starting tomorrow. Patient did receive his a.m. dose today. Patient advised to follow-up with a psychiatrist. Patient states that he has been on lithium for 30 years. Seems that he has been on this for so long that is not caused him any problems in the past. (2) Acute kidney failure: QUALIFIERS: Acute renal failure type: unspecified Qualified C ode(s): N17.9 - Acute kidney failure, unspecified PLAN: Resolved with IVF Renal US unremarkable Holding HCTZ and lisinopril. Unclear if related with lithium toxicity. (3) Encephalopathy: PLAN: MRI shows chronic WM changes, likely due microvascular ischemia Likely multifactorial: metabolic from dehydration, toxic from decreased excretion of gabapentin in [place] and underlying psychiatric disorder Concerned that this may have been due to lithium toxicity. Appears to be resolved. Patient has gabapentin on his MAR but patient states that he has not taken that in 2 weeks. (4) Hypokalemia: PLAN: Replace Mag 2.2 (5) Debility: PLAN: Minimal ability on 01/18. Unsafe for home unless has 24h assistance Plan for SNF otherwise. PLAN: Plan Chronic conditions: * Essential hypertension? Patient is currently on amlodipine as well as carvedilol his HCTZ and lisinopril held in view of impaired kidney function * Obstructive sleep apnea? Patient apparently has not been compliant with CPAP therapy * Class III obesity with BMI of 46.5? Weight loss advised * Bipolar disorder? Patient on lithium resumed DVT prophylaxis? SC heparin Disposition: To SNF pending insurance authorization. Greater than 55 minutes of which greater than 50% time was reviewing the patient's data, discussing with the patient at bedside, discussing the patient about the potential for lithium toxicity and the recommendation for decreasing his lithium dose and also to follow-up with his psychiatrist Charges/Coding Visit Charges Inpatient E&M: 32542 Subs Hosp L3
[2023-01-19] MEDS: Ondansetron 4 MG/2 ML Vial IV (08:48)
[2023-01-19] MEDS: 0.9% Saline Lock 10 ML Syringe IV (08:50)
--- NOTE | 2023-01-19 08:50 | CASEMGMT ---
Two of patient's friends were requesting to talk with SW. ITA met with Marsha HeltonChepe who is also patient's emergency contact and Alla another female friend. They both stated patient has no one. Patient is and there is a restraining order against him from his ex-. Per both Marsha's patient was supposed to [place] [address] to meet with the home arrest officer. However, when patient's girlfriend picked him up she was not aware of this and patient was confused. Apparently there is now a warrant out for his arrest. Marsha spoke with Wiliam Reyes, Senior Home Arrest Officer. Per Marsha Swain wants a letter indicating when patient was admitted, why admitted, what going on with him, and estimated discharge. Wiliam's phone number is [phone] and fax number [phone]. Per both friends patient does not have a healthcare power of prosecuting attorney. They spoke with his sister in [place] and they were wondering if SW could call her and she could give Marsha permission to make decisions for patient. ITA said there are other things SW needs to do before SW would talk with the sister. SW told them SW will talk with patient today. Marsha said that patient has been to [facility] in the past and they think that is his choice as they spoke with him yesterday. Alla also mentioned that [facility] has a Rehab Unit that he may be a good candidate. Amanda DEL TORO
[2023-01-19 09:45] VITALS: BP 145/97; PULSE 70; RESP 18; TEMP 37.2; O2SAT 96
[2023-01-19] MEDS: Heparin Injection (Vial) 5,000 UNIT/ML VIAL 5000 UNIT SC ×2 (09:52→22:21)
[2023-01-19] MEDS: Ezetimibe 10 MG Tablet PO (09:53)
[2023-01-19] MEDS: Multivitamins,Therapeutic Tablet 1 TABLET PO (09:53)
[2023-01-19] MEDS: buPROPion (SR) 150 MG Tablet.SA PO ×2 (09:53→22:20)
[2023-01-19] MEDS: Carvedilol 12.5 MG Tablet PO ×2 (09:54→22:20)
--- NOTE | 2023-01-19 10:05 | CASEMGMT ---
SW spoke with patient. SW re-introduced self and role at [facility]. SW let patient know that SW spoke with two of his friends, Marsha and Alla this am. SW asked patient if he was okay with SW talking with them and patient said he was okay with this. SW asked patient about the fpc list and patient said he has not looked at it. SW asked patient about [facility] since he has been there before. Patient did not seem to want to return to [facility]. Patient said he does not necessarily want to go to a facility in [place] as a lot of his friends are in the [place] area. SW asked patient if he is okay if his friends Marsha and Alla help pick a facility for patient. Patient said he is fine with both Marsha's and his friend Meghan helping with picking a place. SW also mentioned to patient that per Marsha he was supposed to go to Home Arrest when he left the correction. He did not do this so there is allegedly a warrant out for his arrest. SW told patient Wiliam Reyes, the [facility] arrest officer wants a letter stating when he came to [facility], diagnosis, and discharge date. SW asked patient if he is okay with SW sharing all of this information. Patient was okay with SW sending a letter, but would prefer SW just gave admission date and time and d/c. Patient is definitely clearer than what he was last week when SW spoke with him. He still takes awhile to answer questions, but is able to answer questions. SW let patient know that SW will check with his friends on placement. Amanda DEL TORO
[2023-01-19] MEDS: Lithium Carbonate 300mg Capsule 300 MG PO (12:21)
--- NOTE | 2023-01-19 13:50 | CASEMGMT ---
ITA sent a letter indicating when (date and time) patient was admitted and that his d/c date is unknown at this time. ITA faxed this to Wiliam Amy with [facility]. (phone: [phone] and fax: [phone]). ITA spoke with patient's friend Meghan as she was leaving patient's room. ITA introduced self and role at [facility]. Mgehan said she is familiar with both [facility]. 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 ITA explained SW wants to make sure patient is with it enough to fully understand the documents. ITA told Meghan about patient being okay with both [facility]ha[facility] and her to help with picking a facility for rehab. Meghan mentioned [facility] as Alla works at [employer] and could check in on him regularly. Meghan also mentioned [facility]. Meghan mentioned TCU. ITA let her know that [facility] has several Covid patients right now. Meghan said that would not be a good idea for him to go there. Meghan said she is available by phone if needed. Meghan: [phone]. ITA thanked her for talking with ITA. Amanda Hall MSW AVIATION PROJECT MANAGER
--- NOTE | 2023-01-19 14:22 | CASEMGMT ---
Discharge Planning Referral was sent to [facility] via [facility]. Lila Gomez, Discharge Planning Asst.
[2023-01-19 15:00] VITALS: BP 142/88; PULSE 68; RESP 18; TEMP 37.2; O2SAT 95
--- NOTE | 2023-01-19 16:03 | CASEMGMT ---
SW spent a lot of time with patient as he told SW what happened that he went to retirement and what happened while he was in retirement. SW updated patient on the referral to [place] and patient was in agreement. SW let patient know that Meghan also mentioned [facility]. SW explained that we are waiting to see if [place] will take him and if his insurance will approve him. Amanda Hall WESTERN TACK ASSEMBLY LINE WORKER KATEY
[2023-01-19 19:41] VITALS: BP 148/88; PULSE 66; RESP 16; TEMP 36.8; O2SAT 94
[2023-01-19] MEDS: lamoTRIgine 100 MG Tablet 400 MG PO (22:20)
[2023-01-19] MEDS: Tamsulosin HCl 0.4 MG Capsule PO (22:20)
[2023-01-19] MEDS: amLODIPine 5 MG Tablet PO (22:20)
[2023-01-19] MEDS: NYSTATIN 500,000 UNIT/5 ML UDC 500000 UNIT PO (22:21)
[2023-01-20] VITALS (8 sets, daily range): BP systolic 140–159; BP diastolic 64–99; PULSE 63–73; RESP 16–18; TEMP 36.7–37.1; O2SAT 93–98
--- NOTE | 2023-01-20 08:31 | PCM.PN.HOSP ---
Reason for Visit Reason for Visit: Diagnoses Morbid (severe) obesity due to excess calories (01/12/23) Hypokalemia (01/12/23) Encephalopathy, unspecified (01/12/23) Essential (primary) hypertension (01/12/23) Acute kidney failure, unspecified (01/12/23) Unspecified kidney failure (01/12/23) Disorientation, unspecified (01/12/23) Other malaise (01/12/23) Toxic effect of other metals, accidental (unintentional), initial encounter (01/12/23) Subjective Subjective No new events. Objective Data Objective Data Vital Signs: Vital Signs Temp Pulse Resp BP Pulse Ox O2 Del Method 37.1 C 67 16 152/94 H 93 Room Air 01/20/23 05:16 01/20/23 05:16 01/20/23 05:16 01/20/23 05:16 01/20/23 05:16 01/20/23 08:09 Oxygen Delivery Method Room Air Weight: 146.9 kg Body Mass Index (BMI) 46.4 Intake & Output: Intake and Output for Last 24 Hours 01/18/23 01/19/23 01/20/23 23:59 23:59 23:59 Intake Total 1597.5 / 1597.5 720 / 720 120 / 120 Output Total 1600 / 1600 800 / 800 350 / 350 Balance -2.5 / -2.5 -80 / -80 -230 / -230 Lab / Micro Data 01/19/23 05:48 01/19/23 05:48 Labs: Laboratory Results - last 24 hr 01/19/23 09:51: [place] 1.30 H Rhythm Strip Rhythm Strip: Sinus Rhythm Rate: 65 Ectopy: None Physical Exam Const alert and no apparent distress HEENT head/scalp atraumatic Cardio regular rate Neuro Sensorium / Orientation: awake and alert Assessment & Plan Assessment/Plan (1) [place] toxicity: QUALIFIERS: Encounter type: initial encounter Injury intent: accidental or unintentional Qualified Code(s): T56.891A - Toxic effect of other metals, accidental (unintentional), initial encounter PLAN: Suspected [place] level 01/19 was 1.3 which is slightly high. It is unclear what the patient's lithium level was upon arrival but with patient's reported ataxia and confusion is concerning that the patient had lithium toxicity. Patient takes lithium 300 in the morning and 600 at night. I am recommending the dosing be changed to 300 twice daily. Will initiate the twice daily dosing starting 01/20. Patient advised to follow-up with a psychiatrist. Patient states that he has been on lithium for 30+ years. Seems that he has been on this for so long that is not caused him any problems in the past. (2) Acute kidney failure: QUALIFIERS: Acute renal failure type: unspecified Qualified Code(s): N17.9 - Acute kidney failure, unspecified PLAN: Resolved with IVF Renal US unremarkable Holding HCTZ and lisinopril. Unclear if related with lithium toxicity. (3) Encephalopathy: PLAN: MRI shows chronic WM changes, likely due microvascular ischemia Likely multifactorial: metabolic from dehydration, toxic from decreased excretion of gabapentin in CARLOS and underlying psychiatric disorder Concerned that this may have been due to lithium toxicity. Appears to be resolved. Patient has gabapentin on his JUN but patient states that he has not taken that in 2 weeks. (4) Hypokalemia: PLAN: Replace Mag 2.2 (5) Debility: PLAN: Minimal ability on 01/18. Unsafe for home unless has 24h assistance Plan for SNF otherwise. PLAN: Plan Chronic conditions: Essential hypertension? Patient is currently on amlodipine as well as carvedilol his HCTZ and lisinopril held in view of impaired kidney function Obstructive sleep apnea? Patient apparently has not been compliant with CPAP therapy Class III obesity with BMI of 46.5? Weight loss advised Bipolar disorder? Patient on lithium resumed DVT prophylaxis? SC heparin Disposition: To SNF pending insurance authorization. Charges/Coding Visit Charges Inpatient E&M: 48345 Subs Hosp L1
[2023-01-20] MEDS: buPROPion (SR) 150 MG Tablet.SA PO ×2 (09:43→21:20)
[2023-01-20] MEDS: Heparin Injection (Vial) 5,000 UNIT/ML VIAL 5000 UNIT SC (09:43)
[2023-01-20] MEDS: NYSTATIN 500,000 UNIT/5 ML UDC 500000 UNIT PO ×2 (09:43→16:58)
[2023-01-20] MEDS: Multivitamins,Therapeutic Tablet 1 TABLET PO (09:43)
[2023-01-20] MEDS: Carvedilol 12.5 MG Tablet PO ×2 (09:43→21:20)
[2023-01-20] MEDS: Ezetimibe 10 MG Tablet PO (09:43)
--- NOTE | 2023-01-20 10:48 | CASEMGMT ---
Social Work SW met with pt in room and pt's friend Alla was on the phone. SW updated that [facility] declined pt and that [facility] has no beds available. SW requested additional choices. Pt and Alla choosing [facility]. Referral to be made. INA Aguilar
--- NOTE | 2023-01-20 10:53 | CASEMGMT ---
Discharge Planning [facility] has no open beds. Referral sent to [facility] via [facility]. Lila Gomez, Discharge Planning Asst.
[2023-01-20] MEDS: Lithium Carbonate 300mg Capsule 300 MG PO (11:48)
--- NOTE | 2023-01-20 15:15 | CASEMGMT ---
Social Work [facility] is unable to accept pt. ITA met with pt and notified and assisted pt in reviewing SNF list. Pt requesting assistance of friend Marsha to make SNF choice. SW spoke with Marsha Gibbs. Marsha states that she spoke with [facility] who is now agreeable to accept pt. SW [facility] updates to [facility] [place] [facility] they are now able to accept pt and precert will be started at this time. SW updated pt and he is agreeable to discharge to [facility] Re[facility] unit. Plan: [facility], pending precert INA Aguilar
[2023-01-20] MEDS: Tamsulosin HCl 0.4 MG Capsule PO (21:20)
[2023-01-20] MEDS: lamoTRIgine 100 MG Tablet 400 MG PO (21:20)
[2023-01-20] MEDS: amLODIPine 5 MG Tablet PO (21:21)
[2023-01-20] MEDS: Acetaminophen 500 MG Tablet PO (21:25)
[2023-01-21 05:27] VITALS: BP 151/85; PULSE 63; RESP 16; TEMP 36.9; O2SAT 95
[2023-01-21] MEDS: Ondansetron 4 MG/2 ML Vial IV (06:17)
[2023-01-21] MEDS: 0.9% Saline Lock 10 ML Syringe IV (06:17)
--- NOTE | 2023-01-21 09:36 | PCM.PN.HOSP ---
Reason for Visit Reason for Visit: Diagnoses Morbid (severe) obesity due to excess calories (01/12/23) Hypokalemia (01/12/23) Encephalopathy, unspecified (01/12/23) Essential (primary) hypertension (01/12/23) Acute kidney failure, unspecified (01/12/23) Unspecified kidney failure (01/12/23) Disorientation, unspecified (01/12/23) Other malaise (01/12/23) Toxic effect of other metals, accidental (unintentional), initial encounter (01/12/23) Subjective Subjective Feels well. Had some vomiting this AM when brushing his teeth. Objective Data Objective Data Vital Signs: Vital Signs Temp Pulse Resp BP Pulse Ox O2 Del Method 36.9 C 63 16 151/85 H 95 Room Air 01/21/23 05:27 01/21/23 05:27 01/21/23 05:27 01/21/23 05:27 01/21/23 05:27 01/21/23 05:27 Oxygen Delivery Method Room Air Weight: 146.9 kg Body Mass Index (BMI) 46.4 Intake & Output: Intake and Output for Last 24 Hours 01/19/23 01/20/23 01/21/23 23:59 23:59 23:59 Intake Total 720 / 720 1170 / 1170 650 / 650 Output Total 800 / 800 1101 / 1101 350 / 350 Balance -80 / -80 69 / 69 300 / 300 Lab / Micro Data 01/19/23 05:48 01/19/23 05:48 Rhythm Strip Rhythm Strip: Sinus Rhythm Rate: 65 Ectopy: None Physical Exam Const alert and no apparent distress Cardio regular rate, regular rhythm, S1 normal heart sound and S2 normal heart sound GI normal to inspection, nondistended, normoactive bowel sounds, soft to palpation, non-tender and non-distended Extremity normal to inspection Assessment & Plan Assessment/Plan (1) [place] toxicity: QUALIFIERS: Encounter type: initial encounter Injury intent: accidental or unintentional Qualified Code(s): T56.891A - Toxic effect of other metals, accidental (unintentional), initial encounter PLAN: Suspected [place] level 01/19 was 1.3 which is slightly high. It is unclear what the patient's lithium level was upon arrival but with patient's reported ataxia and confusion is concerning that the patient had lithium toxicity. Patient takes lithium 300 in the morning and 600 at night. I am recommending the dosing be changed to 300 twice daily. Will initiate the twice daily dosing starting 01/20. Patient advised to follow-up with a psychiatrist. Patient states that he has been on lithium for 30+ years. Seems that he has been on this for so long that is not caused him any problems in the past. (2) Acute kidney failure: QUALIFIERS: Acute renal failure type: unspecified Qualified Code(s): N17.9 - Acute kidney failure, unspecified PLAN: Resolved with IVF Renal US unremarkable Holding HCTZ and lisinopril. Unclear if related with lithium toxicity. (3) Encephalopathy: PLAN: MRI shows chronic WM changes, likely due microvascular ischemia Likely multifactorial: metabolic from dehydration, toxic from decreased excretion of gabapentin in CARLOS and underlying psychiatric disorder Concerned that this may have been due to lithium toxicity. Appears to be resolved. Patient has gabapentin on his MAR but patient states that he has not taken that in 2 weeks. (4) Hypokalemia: PLAN: Replace Mag 2.2 (5) Debility: PLAN: Minimal ability on 01/18. Unsafe for home unless has 24h assistance Plan for SNF otherwise. PLAN: Plan Chronic conditions: Essential hypertension? Patient is currently on amlodipine as well as carvedilol his HCTZ and lisinopril held in view of impaired kidney function Obstructive sleep apnea? Patient apparently has not been compliant with CPAP therapy Class III obesity with BMI of 46.5? Weight loss advised Bipolar disorder? Patient on lithium resumed DVT prophylaxis? SC heparin Disposition: To SNF
[2023-01-21 10:04] VITALS: BP 170/109; PULSE 72; RESP 14; TEMP 37.2; O2SAT 96
[2023-01-21] MEDS: Carvedilol 12.5 MG Tablet PO (10:05)
[2023-01-21] MEDS: Multivitamins,Therapeutic Tablet 1 TABLET PO (10:05)
[2023-01-21] MEDS: buPROPion (SR) 150 MG Tablet.SA PO (10:06)
[2023-01-21] MEDS: Lithium Carbonate 300mg Capsule 300 MG PO (10:06)
[2023-01-21] MEDS: Ezetimibe 10 MG Tablet PO (10:06)
--- NOTE | 2023-01-21 10:17 | TREXTCAR_ITS ---
Diet Diet Order/Speech Therapy: 01/15/23 14:13 Diet: Cardiac: Calorie-Controlled Is pt able to select menu?: No Diet Comments: Supervised Feed; Powerade Zero TID w/ meals How many daily calories?: 1999 calorie Routine Orders/Code Status Routine Lab Work: CBC (weekly) and BMP (weekly) Code Status: Full Code Therapies Weight Bearing: Full weight bearing Physical Therapy: Eval and Treat Occupational Therapy: Eval and Treat Problem/Diagnosis (1) [place] toxicity: Status: Acute Code(s): T56.891A - Toxic effect of other metals, accidental (unintentional), initial encounter Plan: Suspected [place] level 01/19 was 1.3 which is slightly high. It is unclear what the patient's lithium level was upon arrival but with patient's reported ataxia and confusion is concerning that the patient had lithium toxicity. Patient takes lithium 300 in the morning and 600 at night. I am recommending the dosing be changed to 300 twice daily. Will initiate the twice daily dosing starting 01/20. Patient advised to follow-up with a psychiatrist. Patient states that he has been on lithium for 30+ years. Seems that he has been on this for so long that is not caused him any problems in the past. (2) Acute kidney failure: Status: Acute Code(s): N17.9 - Acute kidney failure, unspecified Plan: Resolved with IVF Renal US unremarkable Holding HCTZ and lisinopril. Unclear if related with lithium toxicity. (3) Encephalopathy: Status: Acute Code(s): G93.40 - Encephalopathy, unspecified Plan: MRI shows chronic WM changes, likely due microvascular ischemia Likely multifactorial: metabolic from dehydration, toxic from decreased excretion of gabapentin in CARLOS and underlying psychiatric disorder Concerned that this may have been due to lithium toxicity. Appears to be resolved. Patient has gabapentin on his JUN but patient states that he has not taken that in 2 weeks. (4) Hypokalemia: Status: Acute Code(s): E87.6 - Hypokalemia Plan: Replace Mag 2.2 (5) Debility: Status: Acute Code(s): R53.81 - Other malaise Plan: Minimal ability on 01/18. Unsafe for home unless has 24h assistance Plan for SNF otherwise. Plan Chronic conditions: * Essential hypertension? Patient is currently on amlodipine as well as carvedilol his HCTZ and lisinopril held in view of impaired kidney function * Obstructive sleep apnea? Patient apparently has not been compliant with CPAP therapy * Class III obesity with BMI of 46.5? Weight loss advised * Bipolar disorder? Patient on lithium resumed DVT prophylaxis? SC heparin Disposition: To SNF Allergies/Procedures Done in Hospital Allergies atorvastatin [From Lipitor] Allergy (Verified 01/12/23 19:10) Unknown Penicillins Allergy (Verified 01/12/23 19:10) Unknown pravastatin [From Pravachol] Allergy (Verified 01/12/23 19:10) Unknown tolmetin Allergy (Verified 01/12/23 19:10) Hives meloxicam Adverse Reaction (Verified 01/12/23 19:10) Other OVERHEATING, SWEATING Type of Care/Length of Stay Estimated LOS: Convalescent Care Less Than 30 days Type of Care Needed: Skilled Rehab Potential: Good Prognosis: Good Additional Orders/Day of Discharge Day of Discharge: 01/21/23 Dietary and Speech Recommendations Dietitian Recommendations/Changes: Will continue 2000 calorie/cardiac diet; will add Powerade Zero to meal trays as per pt request. ONS if PO fails at meals, will defer for now. Discharge Plan Admission Admit Date/Time: 01/12/23 22:39 Primary Reason for Your Visit: lithium toxicity Attending Provider: Jj To Primary Care Provider: Jj Eason Consulting Providers: Bubba Bailon; Emery Robert Instructions Additional Instructions / Restrictions: You presented with what is concerning for lithium toxicity. I have decreased her evening dose of lithium from 600 300 mg. So you will be on 300 mg twice daily. You will need to follow-up with your psychiatrist to see if there will need to be further adjustments of your lithium or to be discontinued altogether. Discharge Orders/Prescriptions Prescriptions: New nystatin 100,000 unit/mL Suspension 500,000 unit PO 4X/DAY Qty: 0 0RF lithium carbonate 300 mg Capsule 300 mg PO QHS Qty: 0 0RF Continued multivitamin [Daily Multi-Vitamin] Tablet 1 tab PO DAILY lamotrigine 200 mg tablet 400 mg PO QHS carvedilol 12.5 mg tablet 12.5 mg PO BID acetaminophen 500 mg capsule 500 mg PO Q6H PRN (Reason: Pain) bupropion HCl [Wellbutrin SR] 150 mg tablet sustained-release 12 hr 150 mg PO BID lithium carbonate 300 mg capsule 300 mg PO DAILY tamsulosin 0.4 mg capsule 0.4 mg PO Q24H Patient Comments: TAKE 1 CAPSULE BY MOUTH BEFORE BEDTIME diclofenac sodium 75 mg tablet,delayed release (DR/EC) 75 mg PO BID ascorbic acid (vitamin C) [Vitamin C] 500 mg Tablet 1,000 mg PO DAILY ramipril 10 mg Capsule 10 mg PO QHS cholecalciferol (vitamin D3) [Vitamin D3] 25 mcg (1,000 unit) tablet,chewable 2,000 unit PO DAILY amlodipine 5 mg tablet 5 mg PO QHS Qty: 90 3RF ezetimibe [Zetia] 10 mg tablet 10 mg PO DAILY Qty: 90 3RF Discontinued gabapentin 800 mg tablet 800 mg PO Q12H lithium carbonate 300 mg Capsule 600 mg PO QHS tramadol 50 mg tablet 50 mg PO Q8H PRN (Reason: pain) Qty: 21 0RF Rx Instructions: further narcotic prescriptions will need to be filled from PCP or pain management doctor. hydrochlorothiazide 25 mg tablet 25 mg PO DAILY Qty: 90 3RF Referrals / Follow Up: Jj Eason MD [Primary Care Provider] - Within 2 Weeks Disposition Disposition (needs filled in before D/C Order can be placed): Residential Facility (1) [place] toxicity Qualifiers: Encounter type: initial encounter Injury intent: accidental or unintentional Qualified Code(s): T56.891A - Toxic effect of other metals, accidental (unintentional), initial encounter (2) Acute kidney failure Qualifiers: Acute renal failure type: unspecified Qualified Code(s): N17.9 - Acute kidney failure, unspecified
--- NOTE | 2023-01-21 10:22 | DS.PCM_ITS ---
Providers Date of Admission: 01/12/23 Primary Care Physician: Dr. Jj Eason MD Reason For Visit: ACUTE KIDNEY FAILURE, MENTAL STATUS CHANGE Diagnosis Discharge Diagnosis (1) [place] toxicity: Status: Acute Code(s): T56.891A - Toxic effect of other metals, accidental (unintentional), initial encounter Qualifiers: Encounter type: initial encounter Injury intent: accidental or unintentional Qualified Code(s): T56.891A - Toxic effect of other metals, accidental (unintentional), initial encounter Plan: Suspected [place] level 01/19 was 1.3 which is slightly high. It is unclear what the patient's lithium level was upon arrival but with patient's reported ataxia and confusion is concerning that the patient had lithium toxicity. Patient takes lithium 300 in the morning and 600 at night. I am recommending the dosing be changed to 300 twice daily. Will initiate the twice daily dosing starting 01/20. Patient advised to follow-up with a psychiatrist. Patient states that he has been on lithium for 30+ years. Seems that he has been on this for so long that is not caused him any problems in the past. (2) Acute kidney failure: Status: Acute Code(s): N17.9 - Acute kidney failure, unspecified Qualifiers: Acute renal failure type: unspecified Qualified Code(s): N17.9 - Acute kidney failure, unspecified Plan: Resolved with IVF Renal US unremarkable Holding HCTZ and lisinopril. Unclear if related with lithium toxicity. (3) Encephalopathy: Status: Acute Code(s): G93.40 - Encephalopathy, unspecified Plan: MRI shows chronic WM changes, likely due microvascular ischemia Likely multifactorial: metabolic from dehydration, toxic from decreased excretion of gabapentin in CARLOS and underlying psychiatric disorder Concerned that this may have been due to lithium toxicity. Appears to be resolved. Patient has gabapentin on his MAR but patient states that he has not taken that in 2 weeks. (4) Hypokalemia: Status: Acute Code(s): E87.6 - Hypokalemia Plan: Replace Mag 2.2 (5) Debility: Status: Acute Code(s): R53.81 - Other malaise Plan: Minimal ability on 01/18. Unsafe for home unless has 24h assistance Plan for SNF otherwise. Plan Chronic conditions: * Essential hypertension? Patient is currently on amlodipine as well as carvedilol his HCTZ and lisinopril held in view of impaired kidney function * Obstructive sleep apnea? Patient apparently has not been compliant with CPAP therapy * Class III obesity with BMI of 46.5? Weight loss advised * Bipolar disorder? Patient on lithium resumed DVT prophylaxis? SC heparin Disposition: To SNF Medications at Discharge Home Medications multivitamin (Daily Multi-Vitamin tablet) 1 tab PO DAILY supplement 12/01/19 carvedilol 12.5 mg tablet 12.5 mg PO BID 08/02/20 lamotrigine 200 mg tablet 400 mg PO QHS 08/02/20 acetaminophen 500 mg capsule 500 mg PO Q6H PRN Pain 05/21/21 bupropion HCl 150 mg tablet,12 hr sustained-release (Wellbutrin SR) 150 mg PO BID 12/03/21 diclofenac sodium 75 mg tablet,delayed release 75 mg PO BID 12/03/21 lithium carbonate 300 mg capsule 300 mg PO DAILY 02/05/22 ascorbic acid (vitamin C) 500 mg tablet (Vitamin C) 1,000 mg PO DAILY 05/27/22 cholecalciferol (vitamin D3) 25 mcg (1,000 unit) chewable tablet (Vitamin D3) 2,000 unit PO DAILY 05/27/22 ramipril 10 mg capsule 10 mg PO QHS bp 05/27/22 tamsulosin 0.4 mg capsule 0.4 mg PO Q24H prostate 11/14/22 amlodipine 5 mg tablet 5 mg PO QHS #90 tabs 11/25/22 ezetimibe 10 mg tablet (Zetia) 10 mg PO DAILY #90 tabs 12/02/22 lithium carbonate 300 mg capsule 300 mg PO QHS #0 caps 01/21/23 nystatin 100,000 unit/mL oral suspension 500,000 unit (5 mL) PO 4X/DAY #0 mL 01/21/23 Hospital Course Operations None Procedures None Summary of Care Provided Minutes Spent on Discharge: 35 Hospital Course: Patient presented with confusion, ataxia and acute kidney injury. Did resolve with IV fluids and holding his hydrochlorothiazide and ramipril. Patient has been on lithium for decades and lithium levels checked at 7 days after he was initially admitted and it was slightly elevated. The patient had gabapentin on his home medication reconciliation form, however, patient said that he had not taken that for weeks. Therefore, it is my feeling that his symptoms were attributable to acute lithium toxicity. Patient has been on lithium for years and has not really been adjusted due to him being on it for so long. Patient later endorsed that he has had issues where he may not take it at night because of how it makes him feel. Patient will need to follow-up with his psychiatrist to see if his lithium needs to be adjusted downwards or removed altogether. Its been continued over these many years just because he has been on it for so long. Weight / BMI Weight Weight: 146.9 kg Body Mass Index (BMI) 46.4 ABG / Lab / Microbiology Data 01/19/23 05:48 01/19/23 05:48 Meaningful Use Info Meaningful Use Diagnoses (Choose all that apply): None applicable Discharge Plan Admission Admit Date/Time: 01/12/23 22:39 Primary Reason for Your Visit: lithium toxicity Attending Provider: Jj oT Primary Care Provider: Jj Eason Consulting Providers: Bubba Bailon; Emery Robert Instructions Additional Instructions / Restrictions: You presented with what is concerning for lithium toxicity. I have decreased her evening dose of lithium from 600 300 mg. So you will be on 300 mg twice daily. You will need to follow-up with your psychiatrist to see if there will need to be further adjustments of your lithium or to be discontinued altogether. Discharge Orders/Prescriptions Prescriptions: New nystatin 100,000 unit/mL Suspension 500,000 unit PO 4X/DAY Qty: 0 0RF lithium carbonate 300 mg Capsule 300 mg PO QHS Qty: 0 0RF Continued multivitamin [Daily Multi-Vitamin] Tablet 1 tab PO DAILY lamotrigine 200 mg tablet 400 mg PO QHS carvedilol 12.5 mg tablet 12.5 mg PO BID acetaminophen 500 mg capsule 500 mg PO Q6H PRN (Reason: Pain) bupropion HCl [Wellbutrin SR] 150 mg tablet sustained-release 12 hr 150 mg PO BID lithium carbonate 300 mg capsule 300 mg PO DAILY tamsulosin 0.4 mg capsule 0.4 mg PO Q24H Patient Comments: TAKE 1 CAPSULE BY MOUTH BEFORE BEDTIME diclofenac sodium 75 mg tablet,delayed release (DR/EC) 75 mg PO BID ascorbic acid (vitamin C) [Vitamin C] 500 mg Tablet 1,000 mg PO DAILY ramipril 10 mg Capsule 10 mg PO QHS cholecalciferol (vitamin D3) [Vitamin D3] 25 mcg (1,000 unit) tablet,chewable 2,000 unit PO DAILY amlodipine 5 mg tablet 5 mg PO QHS Qty: 90 3RF ezetimibe [Zetia] 10 mg tablet 10 mg PO DAILY Qty: 90 3RF Discontinued gabapentin 800 mg tablet 800 mg PO Q12H lithium carbonate 300 mg Capsule 600 mg PO QHS tramadol 50 mg tablet 50 mg PO Q8H PRN (Reason: pain) Qty: 21 0RF Rx Instructions: further narcotic prescriptions will need to be filled from PCP or pain management doctor. hydrochlorothiazide 25 mg tablet 25 mg PO DAILY Qty: 90 3RF Referrals / Follow Up: Jj Eason MD [Primary Care Provider] - Within 2 Weeks Disposition Disposition (needs filled in before D/C Order can be placed): Long Term Facility Charges/Coding Visit Charges Inpatient E&M: 52760 Disch Hosp >30min
--- NOTE | 2023-01-21 10:42 | PHA.DC.MC.R ---
Pharmacy [facility] has performed discharge medication reconciliation and counseling for this patient. The patient's discharge medication list was reviewed for discrepancies and discrepancies were resolved. The patient was counseled on the following discharge medications and changes in medications for homegoing were reviewed. The Reason for Use, instructions for use, and potential side effects were reviewed for all new medications. The patient's questions regarding all of their medications were answered. 1. nystatin 100,000 unit/mL, swish/swallow 5 ML PO 4x daily The patient was able to verbally demonstrate an understanding of their discharge medications. Medications at Discharge Home Medications multivitamin (Daily Multi-Vitamin tablet) 1 tab PO DAILY supplement 12/01/19 carvedilol 12.5 mg tablet 12.5 mg PO BID 08/02/20 lamotrigine 200 mg tablet 400 mg PO QHS 08/02/20 acetaminophen 500 mg capsule 500 mg PO Q6H PRN Pain 05/21/21 bupropion HCl 150 mg tablet,12 hr sustained-release (Wellbutrin SR) 150 mg PO BID 12/03/21 diclofenac sodium 75 mg tablet,delayed release 75 mg PO BID 12/03/21 lithium carbonate 300 mg capsule 300 mg PO DAILY 02/05/22 ascorbic acid (vitamin C) 500 mg tablet (Vitamin C) 1,000 mg PO DAILY 05/27/22 cholecalciferol (vitamin D3) 25 mcg (1,000 unit) chewable tablet (Vitamin D3) 2,000 unit PO DAILY 05/27/22 ramipril 10 mg capsule 10 mg PO QHS bp 05/27/22 tamsulosin 0.4 mg capsule 0.4 mg PO Q24H prostate 11/14/22 amlodipine 5 mg tablet 5 mg PO QHS #90 tabs 11/25/22 ezetimibe 10 mg tablet (Zetia) 10 mg PO DAILY #90 tabs 12/02/22 lithium carbonate 300 mg capsule 300 mg PO QHS #0 caps 01/21/23 nystatin 100,000 unit/mL oral suspension 500,000 unit (5 mL) PO 4X/DAY #0 mL 01/21/23
--- NOTE | 2023-01-21 10:56 | CASEMGMT ---
Discharge Planning Discharge orders, signed med list, and transport time sent to [facility] via [facility]. [facility] will transport patient by wheelchair at 11:30a. Nursing, SW, patient, and his friend, Marsha, updated. Lila Gomez, Discharge Planning Asst.
--- NOTE | 2023-01-21 11:01 | NURSING ---
[facility] 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
--- NOTE | 2023-01-21 11:46 | CASEMGMT ---
Social Work Discharged skilled level of care to [facility] for short term skilled therapy. No PASRR process needed due to [facility] being a non-Medicaid certified facility. Final discharge arrangements as per Discharge General Labor. -DARNELL Sylvester
== END 2023-01-21 11:33 | DRG 682 ==
LOC: ED 22:31 → PCU 22:52
PROVIDERS: Internal Medicine; Admitting Provider Family Medicine; Emergency Provider Emergency Medicine; PCP Family Medicine
DX: N17.9 Acute kidney failure, unspecified (principal); G93.41 Metabolic encephalopathy; G92.9 Unspecified toxic encephalopathy; Z68.43 Body mass index [BMI] 50.0-59.9, adult; F31.9 Bipolar disorder, unspecified; E66.01 Morbid (severe) obesity due to excess calories; I10 Essential (primary) hypertension; S09.90XA Unspecified injury of head, initial encounter; E78.00 Pure hypercholesterolemia, unspecified; G47.33 Obstructive sleep apnea (adult) (pediatric); E87.6 Hypokalemia; M25.512 Pain in left shoulder; E86.0 Dehydration; T43.595A Adverse effect of other antipsychotics and neuroleptics, initial encounter; G89.29 Other chronic pain; R13.10 Dysphagia, unspecified; R53.81 Other malaise; Z79.1 Long term (current) use of non-steroidal anti-inflammatories (NSAID); Z79.899 Other long term (current) drug therapy
CPT/HCPCS: 36415; 70450; 70553; 71045; 73030; 76770; 80048; 80053; 80076; 80178; 80307; 82077; 82140; 82962; 83735; 84100; 85025; 85027; 92610; 93005; 97110; 97116; 97162; 97166; 97530; 97535; 97802; 99283; A9575; J7030; A4216; J1940; J2405

== ENCOUNTER 2023-02-25 12:31 | Inpatient (IN) | payer MEDICARE, SELFPAY ==
[2023-02-25 12:32] VITALS: BP 97/67; PULSE 59; RESP 16; TEMP 36.8; O2SAT 98; BMI 43.4
--- NOTE | 2023-02-25 12:55 | EDS_ITS ---
HPI <ANGEL Barrett - Last Filed: 02/25/23 14:12> History of Present Illness Chief Complaint: Confusion Narrative Narrative: 57-year-old male [facility]day [facility] and the [facility] nurse was concerned he seemed confused/had strokelike symptoms. Patient states he felt weak and fell and struck his head on the ground. Denies loss of consciousness or blood thinners. He has no acute complaints. He states he was in the hospital recently for renal failure but is not sure why this happened. PFSH <ANGEL Barrett - Last Filed: 02/25/23 14:12> FORMERLY [facility] Medical History Ambulates with cane Anxiety Anxiety and depression Arthritis Back pain Bipolar disorder Body mass index (BMI) 35 or more Breast mass, left Cancer Cardiology follow-up encounter Cataract, left eye Chest pain Chronic cough Chronic pain of both knees CPAP (continuous positive airway pressure) dependence Degenerative joint disease (DJD) of hip Depression Disc degeneration, lumbar Dizziness Essential (primary) hypertension Headache High cholesterol History of echocardiogram History of edema History of pain when walking History of stress test Hx of reactive hypoglycemia Hyperlipidemia Hypertension Iliotibial band syndrome affecting left lower leg Injury of head and neck Left shoulder pain Loss of consciousness Non-smoker Obesity Obesity RAY (obstructive sleep apnea) Osteoarthritis of right hip Osteoarthritis of right hip Pain Palpitations Primary osteoarthritis, left shoulder Primary osteoarthritis, right shoulder Right shoulder pain Shortness of breath on exertion SOBOE (shortness of breath on exertion) Wears glasses Home Medications multivitamin (Daily Multi-Vitamin tablet) 1 tab PO DAILY supplement 12/01/19 [History Last Taken 01/12/23] carvedilol 12.5 mg tablet 12.5 mg PO BID 08/02/20 [History Last Taken 09/29/22] lamotrigine 200 mg tablet 400 mg PO QHS 08/02/20 [History Last Taken 03/16/22] acetaminophen 500 mg capsule 500 mg PO Q6H PRN Pain 05/21/21 [History Last Taken 03/16/22] bupropion HCl 150 mg tablet,12 hr sustained-release (Wellbutrin SR) 150 mg PO BID 12/03/21 [History Last Taken 03/16/22] diclofenac sodium 75 mg tablet,delayed release 75 mg PO BID 12/03/21 [History Last Taken 03/16/22] lithium carbonate 300 mg capsule 300 mg PO DAILY 02/05/22 [History Last Taken 03/16/22] ascorbic acid (vitamin C) 500 mg tablet (Vitamin C) 1,000 mg PO DAILY 05/27/22 [History Last Taken Unknown] cholecalciferol (vitamin D3) 25 mcg (1,000 unit) chewable tablet (Vitamin D3) 2,000 unit PO DAILY 05/27/22 [History Last Taken Unknown] ramipril 10 mg capsule 10 mg PO QHS bp 05/27/22 [History Last Taken 09/29/22] tamsulosin 0.4 mg capsule 0.4 mg PO Q24H prostate 11/14/22 [History Last Taken Unknown] amlodipine 5 mg tablet 5 mg PO QHS #90 tabs 11/25/22 [Rx Last Taken Unknown] ezetimibe 10 mg tablet (Zetia) 10 mg PO DAILY #90 tabs 12/02/22 [Rx Last Taken Unknown] lithium carbonate 300 mg capsule 300 mg PO QHS #0 caps 01/21/23 [Rx Last Taken Unknown] nystatin 100,000 unit/mL oral suspension 500,000 unit (5 mL) PO 4X/DAY #0 mL [Rx Last Taken Unknown] Allergy/AdvReac Type Severity Reaction Status Date / Time atorvastatin [From Lipitor] Allergy Unknown Verified 01/12/23 19:10 Penicillins Allergy Unknown Verified 01/12/23 19:10 pravastatin [From Pravachol] Allergy Unknown Verified 01/12/23 19:10 tolmetin Allergy Hives Verified 01/12/23 19:10 meloxicam AdvReac Other Verified 01/12/23 19:10 Family History Mother Breast cancer Myocardial infarction Hypertension Father Colon cancer Myocardial infarction Surgical History H/O rotator cuff surgery History of carpal tunnel surgery of right wrist History of left heart catheterization (02/2013) History of left hip replacement (01/2017) History of open reduction and internal fixation (ORIF) procedure History of total left hip arthroplasty Hx of arthroscopy of left knee Hx of arthroscopy of right knee Hx of arthroscopy of shoulder Hx of exploratory laparotomy Hx of release of tendon Hx of right cataract extraction S/P partial mastectomy Social History Smoking Status: Never smoker alcohol intake: never substance use type: does not use caffeine: Yes Type: carbonated beverages Number of servings: 3 what type of physical activity do you participate in: none ROS <ANGEL Barrett - Last Filed: 02/25/23 14:12> ROS ED ROS Narrative Constitutional: Negative for fever, chills, malaise. Eyes: Negative for visual change. CVS: Negative for chest pain, syncope. Respiratory: Negative for shortness of breath, cough. GI: Negative for abdominal pain, nausea, vomiting, diarrhea. : Negative for dysuria. Neuro: Negative for headache, motor/sensory dysfunction. EXAM <ANGEL Barrett - Last Filed: 02/25/23 14:12> Physical Exam Narrative Exam Narrative: CONST: Patient sitting in no acute distress. EYES: Normal inspection. NECK: Normal inspection. RESP: No respiratory distress, CTAB. CVS: Regular rate and rhythm, no murmur, no gallop. ABD: Soft and nontender, no guarding or rebound, nondistended. SKIN: Color normal, no rash, warm, dry, intact. EXTREMITIES: Normal appearance, no pedal edema. NEURO: Oriented x4. 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 PSYCH: Normal affect. Const Vital Signs: 02/25/23 12:32 02/25/23 14:15 Temperature 98.2 F Temperature Source Oral Pulse Rate 59 L 88 Respiratory Rate 16 16 Blood Pressure 97/67 154/105 H Blood Pressure Mean 77 121 Pulse Ox 98 98 Oxygen Delivery Method Room Air Room Air <Dr. Nate Santana MD - Last Filed: 02/25/23 14:25> Physical Exam Const Vital Signs: 02/25/23 12:32 02/25/23 14:15 Temperature 98.2 F Temperature Source Oral Pulse Rate 59 L 88 Respiratory Rate 16 16 Blood Pressure 97/67 154/105 H Blood Pressure Mean 77 121 Pulse Ox 98 98 Oxygen Delivery Method Room Air Room Air MDM <ANGEL Barrett - Last Filed: 02/25/23 14:12> MDM MDM Narrative Medical decision making narrative: Patient was sent in for confusion. He appears well and nontoxic. He was initially slightly hypotensive but repeat is 140/90 and vital signs are within normal limits. He is alert and oriented x4 but sometimes slow to answer questions/does not recall other historical questions. He is moving all extremities with no neurological deficits. Work-up shows acute kidney injury with BUN of 38, creatinine 4.85. He had a similar presentation 1 month ago with CARLOS which resolved after holding his KELSEY inhibitor/HCTZ. He was also given IV fluids in the ED. Due to his fall earlier a CT brain was obtained and shows no acute findings. Case was discussed with the hospitalist for admission. Differential for AMS: Intracranial process, electrolyte abnormality, infectious etiology Lab Data Attestation: I reviewed the patient's lab results. Labs: Laboratory Results - last 24 hr 02/25/23 12:50 WBC 11.6 H RBC 4.12 L Hgb 12.3 L Hct 39.0 L MCV 94.7 H MCH 29.9 MCHC 31.5 L RDW Std Deviation 52.2 H RDW Coeff of Héctor 15.0 H Plt Count 293 MPV 12.3 H Immature Gran % (Auto) 1.300 H Neut % (Auto) 63.7 Lymph % (Auto) 21.3 [place] % (Auto) 10.1 H Eos % (Auto) 2.7 Baso % (Auto) 0.9 Absolute Neuts (auto) 7.4 Absolute Lymphs (auto) 2.47 Nucleated RBC % 0 Sodium 135 L Potassium 3.6 Chloride 100 Carbon Dioxide 23.0 Anion Gap 12 BUN 38 H Creatinine 4.85 H Estim Creat Clear Calc 17.35 Est GFR (MDRD) Af Amer 16 L Est GFR (MDRD) Non-Af 13 L BUN/Creatinine Ratio 7.8 L Glucose 93 Calcium 9.5 Total Bilirubin 0.70 AST 14 L ALT 24 Alkaline Phosphatase 81 Total Protein 6.7 Albumin 3.8 Globulin 2.9 Albumin/Globulin Ratio 1.3 Radiography Diagnostic Testing: Clinical Impression(s) from Imaging Studies Brain CT 02/25/23 13:17 IMPRESSION: No acute abnormality is seen. Stable coarse calcifications seen in both right and left cerebellar hemispheres. Electronically Signed: Daniel Torres MD at 13:34 EDT , Chest X-Ray 02/25/23 13:20 IMPRESSION: No acute abnormality is seen. Electronically Signed: Daniel Torres MD at 13:39 EDT , ED attending interpretation of 1- view chest x-ray shows normal heart size, no acute infiltrate, edema, or effusion. EKG Initial EKG: Attestation: I personally reviewed and interpreted this EKG as follows: Comments: Sinus bradycardia with first-degree AV block at 58 bpm LBBB LBBB present on prior EKG from 01/12/2023 <Dr. Nate Santana MD - Last Filed: 02/25/23 14:25> [facility] Lab Data Labs: Laboratory Results - last 24 hr 02/25/23 12:50 WBC 11.6 H RBC 4.12 L Hgb 12.3 L Hct 39.0 L MCV 94.7 H MCH 29.9 MCHC 31.5 L RDW Std Deviation 52.2 H RDW Coeff of Héctor 15.0 H Plt Count 293 MPV 12.3 H Immature Gran % (Auto) 1.300 H Neut % (Auto) 63.7 Lymph % (Auto) 21.3 [place] % (Auto) 10.1 H Eos % (Auto) 2.7 Baso % (Auto) 0.9 Absolute Neuts (auto) 7.4 Absolute Lymphs (auto) 2.47 Nucleated RBC % 0 Sodium 135 L Potassium 3.6 Chloride 100 Carbon Dioxide 23.0 Anion Gap 12 BUN 38 H Creatinine 4.85 H Estim Creat Clear Calc 17.35 Est GFR (MDRD) Af Amer 16 L Est GFR (MDRD) Non-Af 13 L BUN/Creatinine Ratio 7.8 L Glucose 93 Calcium 9.5 Total Bilirubin 0.70 AST 14 L ALT 24 Alkaline Phosphatase 81 Total Protein 6.7 Albumin 3.8 Globulin 2.9 Albumin/Globulin Ratio 1.3 Radiography Diagnostic Testing: Clinical Impression(s) from Imaging Studies Brain CT 02/25/23 13:17 IMPRESSION: No acute abnormality is seen. Stable coarse calcifications seen in both right and left cerebellar hemispheres. Electronically Signed: Daniel Torres MD at 13:34 EDT , Chest X-Ray 02/25/23 13:20 IMPRESSION: No acute abnormality is seen. Electronically Signed: Daniel Torres MD at 13:39 EDT , Treatment and Re-Evaluation :: I have personally performed a face to face assessment of the patient and have reviewed the TABATHA Note. I performed a substantive portion of the visit including all aspects of the following. My glaser findings include: History: Patient was sent in [facility]. He states for the last almost week he just feels intermittently dizzy. He does state there is a sense of motion. But he states its not all the time. It is just if he moves quickly. He did fall earlier today because he was dizzy. But he denies hurting himself. He did not lose consciousness. He has not been febrile. No nausea vomiting or chest pain at this time. He is getting some muscle cramps occasionally. It is hard to get exactly what is were made but he were some changes on his meds recently. It sounds like he was off some of them until he was put in [facility] a couple weeks or so ago. He states there was a change to his lithium but he forgets what the dose was. Exam: Patient is awake alert. He is oriented x3. He knows where he is. He knows the president [facility] and has an opinion. 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 I am not seeing memory problems. He does look a little dry on exam with dry mucous membranes. But his lungs are clear. Heart is regular at about 60. Abdomen is obese but benign. Extremities show no trauma. I am not getting any focal or lateralizing deficit. He is sometimes a little bit slow to answer questions but there does not appear to be any gross confusion. Medical Decision Making: I will do a lithium level. We will do some blood work as the patient does have a history of some acute kidney injury in the past. Some of his symptoms may be medication effect. We will also do a scan of the head with the fall and his symptoms. Discharge Plan Triage Chief Complaint: Confusion ED Midlevel Provider: Miri Rodriguez ED Provider: Nate Santana Dx/Rx/DC Orders Clinical Impression: Acute kidney injury, Dehydration, History of bipolar disorder, Fall Primary Care Provider: Jj Eason
[2023-02-25] MEDS: 0.9% Normal Saline (1000mL) 1,000 ML 999 ML IV (12:56)
[2023-02-25 13:10] LABS: Absolute Lymphocyte Count 2.47 X10^3/uL (0.83-4.51); Absolute Neutrophil Count 7.4 X10^3/uL (2.0-7.7); Basophil% 0.9 % (0-1); Eosinophil# 0.31 X10^3/uL; Eosinophils% 2.7 % (0-5); Hemoglobin 12.3 g/dL (13.0-16.5); Lymphocyte # 2.47 X10^3/ul (0.83-4.51); Lymphocyte % 21.3 % (19-41); Mean Corp Hgb Conc 31.5 g/dL (32-36); Mean Corpuscular Hgb 29.9 pg (27.0-32.0); Mean Corpuscular Volume 94.7 fL (80-94); Mean Platelet Vol. 12.3 fl (6.2-12.0); Monocyte# 1.17 X10^3/uL; Monocyte% 10.1 % (0-10); NRBC Flagged by Analyzer 0 % (0-5); Neutrophil # 7.42 X10^3/uL (2.7-7.7); Neutrophil % 63.7 % (47-70); Platelet Count 293 K/mm3 (150-450); RBC Distribution Width SD 52.2 fl (35.1-43.9); Red Blood Count 4.12 M/mm3 (4.6-6.2); White Blood Count 11.6 K/mm3 (4.4-11.0)
--- NOTE | 2023-02-25 13:10 | EKG12_ITS ---
Test Reason : Blood Pressure : / mmHG Vent. Rate : 058 BPM Atrial Rate : 058 BPM P-R Int : 218 ms QRS Dur : 154 ms QT Int : 492 ms P-R-T Axes : 072 -25 113 degrees QTc Int : 482 ms Sinus bradycardia with 1st degree A-V block Left bundle branch block Abnormal ECG Confirmed by UVALDO JULIAN, STEPHEN ([id number]), video effects editor THERESA TEJADA ([id number]) on 03/09/2023 7:57:40 AM Referred By: Confirmed By:VALE BAILON MD
--- NOTE | 2023-02-25 13:17 | CT_ITS ---
STUDY: CT BRAIN WITHOUT CONTRAST REASON FOR EXAM: Male, 57 years old. Confusion RADIATION DOSAGE (If Supplied By Facility): CTDIvol = ( 44.99 ) mGy, DLP = ( 846.73 ) mGycm TECHNIQUE: Transaxial CT imaging of the brain was performed without administration of intravenous contrast material. Individualized dose optimization techniques were used for this CT. COMPARISON: Comparison is made with prior study January 12, 2023. FINDINGS: Normal soft tissue structures. Normal calvarium. There is mild cerebral atrophy with widening of the extra-axial spaces and ventricular dilatation. There are areas of decreased attenuation within the white matter tracts of the supratentorial brain, consistent with microvascular disease changes. Normal basal ganglia and thalami. Normal brainstem. Stable calcifications in both right and left cerebellar hemispheres. There is no intracranial hemorrhage. There are no findings of an acute ischemic infarction. Normal visualized paranasal sinuses. CT/Brain/Head without Contrast IMPRESSION: No acute abnormality is seen. Stable coarse calcifications seen in both right and left cerebellar hemispheres. Electronically Signed: Daniel Torres MD at 13:34 EDT ,
--- NOTE | 2023-02-25 13:20 | RAD_ITS ---
STUDY: X-RAY CHEST REASON FOR EXAM: Male, 57 years old. Altered mental status TECHNIQUE: Single AP portable view of the chest. COMPARISON: Comparison is made with prior study dated January 12, 2023. FINDINGS: EKG electrodes are seen. Stable elevation of the right hemidiaphragm. There is no demonstrated pleural abnormality. Normal size heart. Normal mediastinum and lalitha. Normal visualized pulmonary arteries. Normal visualized aortic arch and descending thoracic aorta. There are diffuse degenerative changes of the visualized thoracic spine. Normal visualized ribs, clavicles, and shoulders. There is no demonstrated abnormality of the visualized soft tissue structures of the upper abdomen. RAD/Chest 1 View (Portable) IMPRESSION: No acute abnormality is seen. Electronically Signed: Daniel Torres MD at 13:39 EDT ,
[2023-02-25 13:28] LABS: ALB/GLOB Ratio 1.3 RATIO (0.9-2.4); AST(SGOT) 14 U/L (15-37); Alanine Aminotransfer ALT/SGPT 24 U/L (16-61); Albumin, Serum 3.8 g/dL (3.2-5.0); Alkaline Phosphatase 81 U/L (45-117); Anion Gap 12 (5-15); BUN 38 mg/dL (7-18); BUN/Creat Ratio 7.8 RATIO (10-20); Calcium,Total 9.5 mg/dL (8.5-10.1); Chloride 100 mmol/L (98-107); Creatinine, Serum 4.85 mg/dL (0.70-1.30); EST Glomerular Filtration Rate 13 mL/min (>60); Est Glom Filt Rate - Afr Amer 16 mL/min (>60); Estimated Creatinine Clearance 17.35 ml/min; Globulin 2.9 g/dL (2.2-4.2); Glucose 93 mg/dL (74-106); Potassium 3.6 mmol/L (3.5-5.1); Protein, Total 6.7 g/dL (6.4-8.2); Sodium Level 135 mmol/L (136-145)
[2023-02-25 14:15] VITALS: BP 154/105; PULSE 88; RESP 16; O2SAT 98
--- NOTE | 2023-02-25 14:16 | NURSING ---
MED SURG TERELETSUNA CARLOS, DEHYDRATION, DIZZINESS
[2023-02-25 14:57] VITALS: BP 93/51; PULSE 60; RESP 16; O2SAT 99
--- NOTE | 2023-02-25 15:36 | HP.PCM.HOS_ITS ---
HPI - General General Date of Admission: 02/25/23 Date of Service: 02/25/23 Chief Complaint: Confusion, lethargy HPI Narrative MELIZA KELLEY, is a 57 M who presents to the emergency room at [facility] after being transported from the local halfway where he resides temporarily-his release date is March 11-he has been unsteady on his feet today and somewhat confused. 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 Labs done in the emergency room were abnormal for creatinine of 4.85, BUN was 38, white blood cell count was 11.6 and hemoglobin was 12.3. Patient's lithium level was 2.2 On examination, patient appeared mildly confused, he was hard to arouse to ask questions and review of systems was not obtainable from the patient. Patient will be admitted to [place] [address] for acute kidney injury and metabolic encephalopathy. [facility] Medical History Ambulates with cane Anxiety Anxiety and depression Arthritis Back pain Bipolar disorder Body mass index (BMI) 35 or more Breast mass, left Cancer Cardiology follow-up encounter Cataract, left eye Chest pain Chronic cough Chronic pain of both knees CPAP (continuous positive airway pressure) dependence Degenerative joint disease (DJD) of hip Depression Disc degeneration, lumbar Dizziness Essential (primary) hypertension Headache High cholesterol History of echocardiogram History of edema History of pain when walking History of stress test Hx of reactive hypoglycemia Hyperlipidemia Hypertension Iliotibial band syndrome affecting left lower leg Injury of head and neck Left shoulder pain Loss of consciousness Non-smoker Obesity Obesity RAY (obstructive sleep apnea) Osteoarthritis of right hip Osteoarthritis of right hip Pain Palpitations Primary osteoarthritis, left shoulder Primary osteoarthritis, right shoulder Right shoulder pain Shortness of breath on exertion SOBOE (shortness of breath on exertion) Wears glasses Home Medications multivitamin (Daily Multi-Vitamin tablet) 1 tab PO DAILY supplement 12/01/19 [History Last Taken 01/12/23] carvedilol 12.5 mg tablet 25 mg PO BID blood pressure 08/02/20 [History Last Taken 09/29/22] lamotrigine 200 mg tablet 400 mg PO QHS skin 08/02/20 [History Last Taken 03/16/22] acetaminophen 500 mg capsule 500 mg PO Q6H PRN Pain 05/21/21 [History Last Taken 03/16/22] bupropion HCl 150 mg tablet,12 hr sustained-release (Wellbutrin SR) 150 mg PO BID depression 12/03/21 [History Last Taken 03/16/22] diclofenac sodium 75 mg tablet,delayed release 75 mg PO BID pain 12/03/21 [History Last Taken 03/16/22] lithium carbonate 300 mg capsule 300 mg PO DAILY psych 02/05/22 [History Last Taken 03/16/22] ascorbic acid (vitamin C) 500 mg tablet (Vitamin C) 1,000 mg PO DAILY vitamin 05/27/22 [History Last Taken Unknown] cholecalciferol (vitamin D3) 25 mcg (1,000 unit) chewable tablet (Vitamin D3) 2,000 unit PO DAILY vitamin 05/27/22 [History Last Taken Unknown] ramipril 10 mg capsule 10 mg PO QHS bp 05/27/22 [History Last Taken 09/29/22] tamsulosin 0.4 mg capsule 0.4 mg PO Q24H prostate 11/14/22 [History Last Taken Unknown] amlodipine 5 mg tablet 5 mg PO QHS blood pressure #90 tabs 11/25/22 [Rx Last Taken Unknown] ezetimibe 10 mg tablet (Zetia) 10 mg PO DAILY cholesterol #90 tabs 12/02/22 [Rx Last Taken Unknown] lithium carbonate 300 mg capsule 300 mg PO QHS depression #0 caps 01/21/23 [Rx Last Taken Unknown] nystatin 100,000 unit/mL oral suspension 500,000 unit (5 mL) PO 4X/DAY skin #0 mL 01/21/23 [Rx Last Taken Unknown] gabapentin 800 mg tablet 800 mg PO QHS pain 02/25/23 [History Last Taken Unknown] hydralazine 25 mg tablet 50 mg PO Q12H blood pressure 02/25/23 [History Last Taken Unknown] Allergy/AdvReac Type Severity Reaction Status Date / Time atorvastatin [From Lipitor] Allergy Unknown Verified 02/25/23 15:00 Penicillins Allergy Unknown Verified 02/25/23 15:00 pravastatin [From Pravachol] Allergy Unknown Verified 02/25/23 15:00 tolmetin Allergy Hives Verified 02/25/23 15:00 meloxicam AdvReac Other Verified 02/25/23 15:00 Family History Mother Breast cancer Myocardial infarction Hypertension Father Colon cancer Myocardial infarction Surgical History H/O rotator cuff surgery History of carpal tunnel surgery of right wrist History of left heart catheterization (02/2013) History of left hip replacement (01/2017) History of open reduction and internal fixation (ORIF) procedure History of total left hip arthroplasty Hx of arthroscopy of left knee Hx of arthroscopy of right knee Hx of arthroscopy of shoulder Hx of exploratory laparotomy Hx of release of tendon Hx of right cataract extraction S/P partial mastectomy Social History Smoking Status: Never smoker alcohol intake: never substance use type: does not use caffeine: Yes Type: carbonated beverages Number of servings: 3 what type of physical activity do you participate in: none ROS ROS Narrative Not able to be obtained due to mild confusion and encephalopathy Review of Systems ROS Unobtainable: due to encephalopathy Vital Signs Vital Signs Vital Signs: 02/25/23 12:32 02/25/23 14:15 02/25/23 14:57 Temperature 98.2 F Temperature Source Oral Pulse Rate 59 L 88 60 Respiratory Rate 16 16 16 Blood Pressure 97/67 154/105 H 93/51 L Blood Pressure Mean 77 121 65 Pulse Ox 98 98 99 Oxygen Delivery Method Room Air Room Air Weight Weight: 137.2 kg Body Mass Index (BMI) 43.4 Physical Exam Const no apparent distress, average body habitus and healthy appearing Constitutional Narrative: Patient is lethargic, he can answer some questions appropriately but is sleepy General Appearance: cooperative, well kempt and well developed Orientation / Consciousness: oriented to person and oriented to place HEENT normocephalic, head/scalp atraumatic and hearing grossly normal bilaterally HEENT Narrative: Mucous membranes are dry Eyes PERRL, EOMs intact bilaterally and conjunctivae normal Neck supple, no JVD, thyroid normal and no carotid bruits General: trachea midline Resp normal respiratory effort, no retractions, no use of accessory muscles and clear to auscultation bilaterally Auscultation: Negative for rales, rhonchi or wheezes Cardio regular rate, regular rhythm, S1 normal heart sound, S2 normal heart sound, no murmurs, no rub, no gallops, no clicks and no JVD GI normal to inspection, nondistended, normoactive bowel sounds, soft to palpation, non-tender and non-distended Extremity no clubbing, cyanosis or edema Skin no rashes or lesions noted General Skin Exam: no breakdown Neuro CN's II-XII intact bilaterally, moves all extremities, no focal motor deficits and no sensory deficits noted Neuro Narrative: Patient is lethargic, he awakens to tactile stimulation and some verbal stimulation, he does answer some questions appropriately but is overall sleepy Speech: speech normal Psych Psych Narrative: Patient is lethargic and sleepy Results Lab / Micro Data 02/25/23 12:50 02/25/23 12:50 Labs: Laboratory Results - last 24 hr 02/25/23 12:50: WBC 11.6 H, RBC 4.12 L, Hgb 12.3 L, Hct 39.0 L, MCV 94.7 H, MCH 29.9, MCHC 31.5 L, RDW Std Deviation 52.2 H, RDW Coeff of Héctor 15.0 H, Plt Count 293, MPV 12.3 H, Immature Gran % (Auto) 1.300 H, Neut % (Auto) 63.7, Lymph % (Auto) 21.3, [place] % (Auto) 10.1 H, Eos % (Auto) 2.7, Baso % (Auto) 0.9, Absolute Neuts (auto) 7.4, Absolute Lymphs (auto) 2.47, Nucleated RBC % 0, Sodium 135 L, Potassium 3.6, Chloride 100, Carbon Dioxide 23.0, Anion Gap 12, BUN 38 H, Creatinine 4.85 H, Estim Creat Clear Calc 17.35, Est GFR (MDRD) Af Amer 16 L, Est GFR (MDRD) Non-Af 13 L, BUN/Creatinine Ratio 7.8 L, Glucose 93, Calcium 9.5, Total Bilirubin 0.70, AST 14 L, ALT 24, Alkaline Phosphatase 81, Total Protein 6.7, Albumin 3.8, Globulin 2.9, Albumin/Globulin Ratio 1.3 02/25/23 13:15: [place] 2.20 H* Radiology Impression Brain CT 02/25/23 13:17 IMPRESSION: No acute abnormality is seen. Stable coarse calcifications seen in both right and left cerebellar hemispheres. Electronically Signed: Daniel Torres MD at 13:34 EDT , Chest X-Ray 02/25/23 13:20 IMPRESSION: No acute abnormality is seen. Electronically Signed: Daniel Torres MD at 13:39 EDT , Assessment & Plan Assessment/Plan (1) Acute kidney injury: PLAN: Plan 1. Acute kidney injury-patient will be admitted to [place] [address] and given IV fluids, labs will be monitored, patient's diclofenac will be held #2 elevated lithium level-patient's lithium will be held, lithium level will be repeated tomorrow #3 metabolic encephalopathy secondary to #1-supportive care will be offered, patient will be reevaluated tomorrow #4 bipolar disorder-patient will remain on his medications except for his lithium #5 hyperlipidemia-patient is on Zetia #6 hypertension-patient's ramipril will be held at this time due to his elevated kidney functions, blood pressure will be monitored #7 obstructive sleep apnea-patient does not use CPAP, he is noncompliant Total clinical time spent by myself addressing the patient's medical issues, reviewing all of his data, and collaborating with patient's care team: 55 minutes Charges/Coding Visit Charges Inpatient E&M: 61982 Init Hosp L2
[2023-02-25 16:13] VITALS: BP 97/75; PULSE 63; RESP 13; O2SAT 98
[2023-02-25 16:25] VITALS: BMI 42.6
[2023-02-25 16:50] VITALS: BP 121/63; PULSE 60; RESP 18; TEMP 36.8; O2SAT 99
[2023-02-25] MEDS: 0.9% Normal Saline (1000mL) 1,000 ML 175 ML IV ×2 (16:54→22:39)
[2023-02-25 20:44] VITALS: BP 118/64; PULSE 61; RESP 16; TEMP 36.6; O2SAT 94
[2023-02-25] MEDS: Tamsulosin HCl 0.4 MG Capsule PO (21:01)
[2023-02-25] MEDS: Ramipril 10 MG Capsule PO (21:01)
[2023-02-25] MEDS: Carvedilol 12.5 MG Tablet PO (21:01)
[2023-02-25] MEDS: amLODIPine 5 MG Tablet PO (21:01)
[2023-02-25] MEDS: buPROPion (SR) 150 MG Tablet.SA PO (21:02)
[2023-02-25 21:16] LABS: Bacteria 0 SEEN /hpf (None Seen); Mucous, Urine 0 SEEN /hpf (<or=2+); Red Blood Cells-Urine 0 SEEN /hpf (0-5); Squamous Epithelial Cells - UA 0 SEEN /hpf (0-5)
[2023-02-25 21:18] LABS: Color, Urine Amber (Yellow); Glucose, Dipstick Normal (Normal); Ketone-Dipstick 5 mg/dl (Negative); Leukocyte Esterase-Dipstick 25 /ul (Negative); Nitrite-Dipstick Negative (Negative); Occult Blood-Urine Negative /ul (Negative); Protein-Dipstick 30 mg/dl (Negative); Specific Gravity, Urine 1.025 (1.002-1.030); Urine Clarity Clear (Clear); Urine Urobilinogen 4 mg/dl (Normal)
[2023-02-25 21:19] LABS: Urine Bilirubin Dipstick 3 mg/dL (Negative)
[2023-02-25 21:28] LABS: Hyaline Cast 10-25 SEEN /lpf (0-5); White Blood Cells 0-5 SEEN /hpf (0-5)
[2023-02-25 21:32] LABS: Amphetamine Urine VISTA NEGATIVE (<1000 ng/mL); Barbiturate Urine VISTA NEGATIVE (< 200 ng/mL); Benzodiazepine Urine VISTA NEGATIVE (< 200 ng/mL); Cocaine Urine VISTA NEGATIVE (< 300 ng/mL); Ecstacy Urine VISTA POSITIVE (< 500 ng/mL); Methadone Urine VISTA NEGATIVE (< 300 ng/mL); PCP Urine VISTA NEGATIVE (< 25 ng/mL); THC Urine VISTA NEGATIVE (< 50 ng/mL); Vista UDS pH Range 5
[2023-02-26 02:37] VITALS: BP 107/58; PULSE 60; RESP 16; TEMP 36.6; O2SAT 94
[2023-02-26] MEDS: 0.9% Normal Saline (1000mL) 1,000 ML 175 ML IV (04:46)
[2023-02-26 07:03] LABS: Anion Gap 7 (5-15); BUN 39 mg/dL (7-18); BUN/Creat Ratio 9.3 RATIO (10-20); Calcium,Total 8.8 mg/dL (8.5-10.1); Chloride 106 mmol/L (98-107); EST Glomerular Filtration Rate 16 mL/min (>60); Est Glom Filt Rate - Afr Amer 19 mL/min (>60); Estimated Creatinine Clearance 20.04 ml/min; Glucose 117 mg/dL (74-106); Sodium Level 137 mmol/L (136-145)
--- NOTE | 2023-02-26 08:07 | PCM.PN.HOSP ---
Reason for Visit Reason for Visit: Diagnoses Acute kidney failure, unspecified (02/25/23) Subjective Subjective Follow-up for acute kidney injury and lithium toxicity. Patient patient is on lithium most probably for bipolar. Objective Data Objective Data Vital Signs: Vital Signs Temp Pulse Resp BP Pulse Ox O2 Del Method 97.8 F 60 16 107/58 L 94 Room Air 02/26/23 02:37 02/26/23 02:37 02/26/23 02:37 02/26/23 02:37 02/26/23 02:37 02/26/23 02:37 Oxygen Delivery Method Room Air Weight: 297 lb 4 oz Body Mass Index (BMI) 42.6 Intake & Output: Intake and Output for Last 24 Hours 02/24/23 02/25/23 02/26/23 23:59 23:59 23:59 Intake Total 1999 1000 / 1000 Output Total 625 / 625 Balance 1999 375 / 375 Lab / Micro Data 02/25/23 12:50 02/26/23 06:00 Labs: Laboratory Results - last 24 hr 02/25/23 12:50: WBC 11.6 H, RBC 4.12 L, Hgb 12.3 L, Hct 39.0 L, MCV 94.7 H, MCH 29.9, MCHC 31.5 L, RDW Std Deviation 52.2 H, RDW Coeff of Héctor 15.0 H, Plt Count 293, MPV 12.3 H, Immature Gran % (Auto) 1.300 H, Neut % (Auto) 63.7, Lymph % (Auto) 21.3, [place] % (Auto) 10.1 H, Eos % (Auto) 2.7, Baso % (Auto) 0.9, Absolute Neuts (auto) 7.4, Absolute Lymphs (auto) 2.47, Nucleated RBC % 0, Sodium 135 L, Potassium 3.6, Chloride 100, Carbon Dioxide 23.0, Anion Gap 12, BUN 38 H, Creatinine 4.85 H, Estim Creat Clear Calc 17.35, Est GFR (MDRD) Af Amer 16 L, Est GFR (MDRD) Non-Af 13 L, BUN/Creatinine Ratio 7.8 L, Glucose 93, Calcium 9.5, Total Bilirubin 0.70, AST 14 L, ALT 24, Alkaline Phosphatase 81, Total Protein 6.7, Albumin 3.8, Globulin 2.9, Albumin/Globulin Ratio 1.3 02/25/23 13:15: [place] 2.20 H* 02/25/23 21:05: Urine Color Min[place]a, Urine Clarity Clear, Urine pH 5.0, Ur Specific [place] 1.025, Urine Protein 30 H, Urine Glucose (UA) Normal, Urine Ketones 5 H, Urine Occult Blood Negative, Urine Nitrite Negative, Urine Bilirubin 3 H, Urine Urobilinogen 4 H, Ur Leukocyte Esterase 25 H, Urine RBC 0 SEEN, Urine WBC 0-5 SEEN, Ur Squamous Epith Cells 0 SEEN, Urine Bacteria 0 SEEN, Hyaline Casts 10-25 SEEN, Urine Mucus 0 SEEN, Urine Opiates Screen NEGATIVE, Urine Methadone Screen NEGATIVE, Ur Barbiturates Screen NEGATIVE, Ur Phencyclidine Scrn NEGATIVE, Ur Amphetamines Screen NEGATIVE, MDMA (Ecstasy) Screen POSITIVE H, U Benzodiazepines Scrn NEGATIVE, Urine Cocaine Screen NEGATIVE, U Cannabinoids Screen NEGATIVE, Ur Drug Screen Comment 02/26/23 06:00: Sodium 137, Potassium 3.0 L, Chloride 106, Carbon Dioxide 24.0, Anion Gap 7, BUN 39 H, Creatinine 4.20 H, Estim Creat Clear Calc 20.04, Est GFR (MDRD) Af Amer 19 L, Est GFR (MDRD) Non-Af 16 L, BUN/Creatinine Ratio 9.3 L, Glucose 117 H, Calcium 8.8, [place] 2.10 H* Radiography Diagnostic Testing: Radiology Impression Brain CT 02/25/23 13:17 IMPRESSION: No acute abnormality is seen. Stable coarse calcifications seen in both right and left cerebellar hemispheres. Electronically Signed: Daniel Torres MD at 13:34 EDT , Chest X-Ray 02/25/23 13:20 IMPRESSION: No acute abnormality is seen. Electronically Signed: Daniel Torres MD at 13:39 EDT , Physical Exam Narrative Seen and examined. Patient states he has tremors but it is chronic. He has good appetite. Denies nausea vomiting or diarrhea. No abdominal pain. From H&P it seems patient does not have history of epilepsy or seizure but he has chronic seizures. When I asked about typical symptoms of seizure-like tightening of the body in extension like tonic posture or tonic-clonic posture he was not sure but seems less likely. He is voiding urine. Physical exam General: Alert, Oriented x3, Cooperative, morbid obesity BMI 42.7 kg/m? HEENT: Atraumatic, PERRLA, EOMI, Normocephalic Oral: No Gingival or Mucosal Lesions/ Ulcerations Neck: Supple, No JVD, Negative Carotid Bruits Lungs: Air entry diminished in bilateral lung bases. No crepitation/rhonchi Cardiovascular: Regular rate, Regular Rhythm, Normal S1, Normal S2, No murmurs Abdomen: Bowel Sounds Present, Soft, Non Tender, Non-Distended : Voiding clear urine. No renal angle tenderness. No suprapubic tenderness. Extremities: No edema, Capillary Refill Less than 3 Seconds Skin: No rashes, No breakdown Musculoskeletal: No Tenderness to Palpation of Joints or Extremities Neurological: Cranial nerves II-XII grossly intact, DTR 2+/4. Tremors predominantly in upper extremities. No focal weakness or gross change in sensation. Psych/Mental Status: Flat affect. Assessment & Plan Assessment/Plan (1) Acute kidney injury: PLAN: Plan 1. Acute kidney injury-patient: Patient is admitted [facility] floor. Patient has normal baseline creatinine 0.95 on 01/20/2020. Potassium slightly low at 3.0 and replacement ordered. [employer] consulted. Had kidney ultrasound which reported normal on December 1922. UA on admission so no blood 30 protein. U tox positive for ecstasy. Patient is on IV fluid 0.45 normal saline with potassium supplement 200 mL/h. Hold nephrotoxic medication including diclofenac, ramipril and lithium. #2 elevated lithium level with lithium toxicity: Unclear whether patient is confusion, tremors is due to lithium toxicity. [place] is discontinued for now. Monitor lithium level. Patient's lithium will be held, lithium level will be repeated tomorrow #3 Acute toxic/metabolic encephalopathy, multiple etiologies secondary to lithium toxicity and CARLOS: Treat underlying disorder. Continue IV fluid #4 bipolar disorder-patient will remain on his medications except for his lithium #5 hyperlipidemia-patient is on Zetia #6 hypertension-patient's ramipril will be held at this time due to his elevated kidney functions, blood pressure will be monitored #7 obstructive sleep apnea-patient does not use CPAP, he is noncompliant Charges/Coding Visit Charges Inpatient E&M: 01335 Subs Hosp L2
[2023-02-26 08:34] LABS: Magnesium 2.5 mg/dL (1.6-2.6); Phosphorus 4.3 mg/dL (2.5-4.9)
[2023-02-26] MEDS: Ezetimibe 10 MG Tablet PO (09:16)
[2023-02-26] MEDS: buPROPion (SR) 150 MG Tablet.SA PO ×2 (09:16→20:52)
[2023-02-26] MEDS: Carvedilol 12.5 MG Tablet PO ×2 (09:16→20:51)
[2023-02-26] MEDS: Acetaminophen 325 MG Tablet 650 MG PO (09:16)
[2023-02-26 09:29] VITALS: BP 110/67; PULSE 58; RESP 18; TEMP 36.6; O2SAT 98
--- NOTE | 2023-02-26 10:38 | CASEMGMT ---
BRODERICK MORGAN Assessment: Face to Face with pt for initial transition planning/care coordination assessment. BRODERICK MORGAN introduced self and role at [facility], pt voices understanding and consents to assessment. Pt is A&O x3 and answers all questions appropriately at this time. Pt slow to answer questions but was able to come up with the answers. Pt with jerking movements throughout assessment and slightly inappropriate with comments to RN EDDIE. Pt reports he is not thinking clearly. Care providers, pharmacy, and demographics verified/updated. Admitting Dx: CARLOS PCP:Jenaro Specialists:Nasir, pain mgmt; Andrea, cardio; Camille, ortho; Gregory, psych Preferred Pharmacy: [facility] Insurance: [employer] Prescription Benefit: yes LNOK: Marsha Templetonand, friend Living Arrangements: Pt reports from this hospital stay from the [facility]. Pt states he is not sure if this is where he will go back to or not. Pt typically lives in a single story home with 1 step to enter alone. Pt reports he is I in ADL's and denies concerns at home. Transportation: Pt drives self and denies concerns with transportation. DME:walker, cane, grab bars in the bathroom HHC/SNF: Pt has had HHC in the past but cannot recall the name of the agency. Pt has been to [facility] and [facility]. Pt 6 clicks=14, therapy ordered. Pt reports typically uses a cane. Pt states no further concerns/needs. CM to follow. Advised pt to ask CM if any further question/concerns/needs arise, voices understanding. Pt Goal: Home Plan: Return to [facility] or residence, follow therapy
--- NOTE | 2023-02-26 14:54 | CON.PCM.RE_ITS ---
Assessment & Plan Assessment/Plan (1) Acute kidney injury: (2) Abnormal lithium level in blood: (3) History of bipolar disorder: PLAN: Plan This is a 57-year-old male with past medical history significant for bipolar disorder on lithium, anxiety/depression, hypertension who was brought to the emergency room from local senior living for evaluation of altered mental status. Serum creatinine 4.85 and lithium level 2.20 on admission. Patient was started on IV fluids admitted for further evaluation and treatment. He also received IV fluid boluses as blood pressures noted to be low in the emergency room. Today lithium level improved to 2.10, serum creatinine 4.20. Patient is nonoliguric. At this time there is no acute indication for renal replacement therapy as overall lithium levels and renal function are improving, patient is nonoliguric and not hypervolemic. No hyperkalemia and acid-base is acceptable. Potassium is slightly low at 3.0 and replacement has been ordered. Recommended continue with IV fluids. Patient has normal baseline kidney function, serum creatinine 0.90 on 01/20/2020. To note patient was admitted to the hospital mid December 2022 as he presented to the emergency room with similar complaints, confusion, serum creatinine was 4.82 on admission and by time of hospital discharge had normalized, his lithium level was 1.30 on admission. Patient had renal ultrasound on January 13, 2023 which did not show any hydronephrosis, normal ultrasound of kidneys and urinary bladder. UA on admission no blood, 30 protein; urine for toxicology positive for ecstasy but otherwise negative. Continue holding diclofenac, lithium and ramipril. Further orders forthcoming as hospitalization evolves, thank you for allowing us to participate in the care of Mr. Eastman. Labs ordered for am. HPI Consult Data Date of Consult: 02/26/23 HPI Narrative HPI Narrative: MELIZA EASTMAN, is a 57 M with past medical history significant for bipolar disorder, anxiety and depression, hypertension who was brought to the emergency room yesterday, being transported from local senior living where he resides temporarily for evaluation of confusion. Lab work in the emergency room showed creatinine of 4.85, lithium level 2.2, patient was admitted for further evaluation and treatment. Nephrology consulted in view of rising creatinine. Patient is alert to name but having very difficult time recalling recent events and finishing sentences. No acute distress noted. Patient does not recall any recent nausea, vomiting or diarrhea. Reports has been trying to intentionally lose weight by cutting back on portion size. Denies any new medications. [facility] Medical History Ambulates with cane Anxiety Anxiety and depression Arthritis Back pain Bipolar disorder Body mass index (BMI) 35 or more Breast mass, left Cancer Cardiology follow-up encounter Cataract, left eye Chest pain Chronic cough Chronic pain of both knees CPAP (continuous positive airway pressure) dependence Degenerative joint disease (DJD) of hip Depression Disc degeneration, lumbar Dizziness Essential (primary) hypertension Headache High cholesterol History of echocardiogram History of edema History of pain when walking History of stress test Hx of reactive hypoglycemia Hyperlipidemia Hypertension Iliotibial band syndrome affecting left lower leg Injury of head and neck Left shoulder pain Loss of consciousness Non-smoker Obesity Obesity RAY (obstructive sleep apnea) Osteoarthritis of right hip Osteoarthritis of right hip Pain Palpitations Primary osteoarthritis, left shoulder Primary osteoarthritis, right shoulder Right shoulder pain Shortness of breath on exertion SOBOE (shortness of breath on exertion) Wears glasses Home Medications multivitamin (Daily Multi-Vitamin tablet) 1 tab PO DAILY supplement 12/01/19 [History Last Taken 01/12/23] carvedilol 12.5 mg tablet 25 mg PO BID blood pressure 08/02/20 [History Last T aken 09/29/22] lamotrigine 200 mg tablet 400 mg PO QHS skin 08/02/20 [History Last Taken 03/16/22] acetaminophen 500 mg capsule 500 mg PO Q6H PRN Pain 05/21/21 [History Last Taken 03/16/22] bupropion HCl 150 mg tablet,12 hr sustained-release (Wellbutrin SR) 150 mg PO BID depression 12/03/21 [History Last Taken 03/16/22] diclofenac sodium 75 mg tablet,delayed release 75 mg PO BID pain 12/03/21 [His tory Last Taken 03/16/22] lithium carbonate 300 mg capsule 300 mg PO DAILY psych 02/05/22 [History Last Taken 03/16/22] ascorbic acid (vitamin C) 500 mg tablet (Vitamin C) 1,000 mg PO DAILY vitamin [History Last Taken Unknown] cholecalciferol (vitamin D3) 25 mcg (1,000 unit) chewable tablet (Vitamin D3) 2,000 unit PO DAILY vitamin 05/27/22 [History Last Taken Unknown] ramipril 10 mg capsule 10 mg PO QHS bp 05/27/22 [History Last Taken 09/29/22] tamsulosin 0.4 mg capsule 0.4 mg PO Q24H prostate 11/14/22 [History Last Taken Unknown] amlodipine 5 mg tablet 5 mg PO QHS blood pressure #90 tabs 11/25/22 [Rx Last Taken Unknown] ezetimibe 10 mg tablet (Zetia) 10 mg PO DAILY cholesterol #90 tabs 12/02/22 [Rx Last Taken Unknown] lithium carbonate 300 mg capsule 300 mg PO QHS depression #0 caps 01/21/23 [Rx Last Taken Unknown] nystatin 100,000 unit/mL oral suspension 500,000 unit (5 mL) PO 4X/DAY skin #0 mL 01/21/23 [Rx Last Taken Unknown] gabapentin 800 mg tablet 800 mg PO QHS pain 02/25/23 [History Last Taken Unknown] hydralazine 25 mg tablet 50 mg PO Q12H blood pressure 02/25/23 [History Last Taken Unknown] Allergy/AdvReac Type Severity Reaction Status Date / Time atorvastatin [From Lipitor] Allergy Unknown Verified 02/25/23 15:00 Penicillins Allergy Unknown Verified 02/25/23 15:00 pravastatin [From Pravachol] Allergy Unknown Verified 02/25/23 15:00 tolmetin Allergy Hives Verified 02/25/23 15:00 meloxicam AdvReac Other Verified 02/25/23 15:00 Family History Mother Breast cancer Myocardial infarction Hypertension Father Colon cancer Myocardial infarction Surgical History H/O rotator cuff surgery History of carpal tunnel surgery of right wrist History of left heart catheterization (02/2013) History of left hip replacement (01/2017) History of open reduction and internal fixation (ORIF) procedure History of total left hip arthroplasty Hx of arthroscopy of left knee Hx of arthroscopy of right knee Hx of arthroscopy of shoulder Hx of exploratory laparotomy Hx of release of tendon Hx of right cataract extraction S/P partial mastectomy Social History Smoking Status: Never smoker alcohol intake: never substance use type: does not use caffeine: Yes Type: carbonated beverages Number of servings: 3 what type of physical activity do you participate in: none ROS ROS Narrative As in HPI and past medical history Physical Exam Narrative Alert and oriented, no apparent distress. Difficult time finishing sentences S1, S2, RRR Lung sounds clear anteriorly and posteriorly. No wheezes, rhonchi or rales noted Abdomen soft, nontender No edema Lab / Micro Data 02/25/23 12:50 02/26/23 06:00 Labs: Laboratory Results - last 24 hr 02/25/23 21:05: Urine Color [place], Urine Clarity Clear, Urine pH 5.0, Ur Specific [place] 1.025, Urine Protein 30 H, Urine Glucose (UA) Normal, Urine Ketones 5 H, Urine Occult Blood Negative, Urine Nitrite Negative, Urine Bilirubin 3 H, Urine Urobilinogen 4 H, Ur Leukocyte Esterase 25 H, Urine RBC 0 SEEN, Urine WBC 0-5 SEEN, Ur Squamous Epith Cells 0 SEEN, Urine Bacteria 0 SEEN, Hyaline Casts 10-25 SEEN, Urine Mucus 0 SEEN, Urine Opiates Screen NEGATIVE, Urine Methadone Screen NEGATIVE, Ur Barbiturates Screen NEGATIVE, Ur Phencyclidine Scrn NEGATIVE, Ur Amphetamines Screen NEGATIVE, MDMA (Ecstasy) Screen POSITIVE H, U Benzodiazepines Scrn NEGATIVE, Urine Cocaine Screen NEGATIVE, U Cannabinoids Screen NEGATIVE, Ur Drug Screen Comment 02/26/23 06:00: Sodium 137, Potassium 3.0 L, Chloride 106, Carbon Dioxide 24.0, Anion Gap 7, BUN 39 H, Creatinine 4.20 H, Estim Creat Clear Calc 20.04, Est GFR (MDRD) Af Amer 19 L, Est GFR (MDRD) Non-Af 16 L, BUN/Creatinine Ratio 9.3 L, Glucose 117 H, Calcium 8.8, Phosphorus 4.3, Magnesium 2.5, [place] 2.10 H*
[2023-02-26 15:13] VITALS: BP 100/68; PULSE 55; RESP 18; TEMP 36.6; O2SAT 93
[2023-02-26] MEDS: Potassium Chloride Oral Tablet 20 MEQ 40 MEQ PO (17:08)
[2023-02-26 20:08] VITALS: BP 102/70; PULSE 63; RESP 16; TEMP 36.9; O2SAT 95
[2023-02-26] MEDS: Tamsulosin HCl 0.4 MG Capsule PO (20:51)
[2023-02-26] MEDS: lamoTRIgine 100 MG Tablet 400 MG PO (20:51)
[2023-02-26] MEDS: amLODIPine 5 MG Tablet PO (20:52)
[2023-02-27 02:34] VITALS: BP 102/58; PULSE 60; RESP 16; TEMP 36.6; O2SAT 97
[2023-02-27 07:40] LABS: Anion Gap 6 (5-15); BUN 32 mg/dL (7-18); BUN/Creat Ratio 11.8 RATIO (10-20); Calcium,Total 8.5 mg/dL (8.5-10.1); Chloride 108 mmol/L (98-107); Creatinine, Serum 2.71 mg/dL (0.70-1.30); EST Glomerular Filtration Rate 26 mL/min (>60); Est Glom Filt Rate - Afr Amer 31 mL/min (>60); Estimated Creatinine Clearance 31.05 ml/min; Glucose 115 mg/dL (74-106); Potassium 3.3 mmol/L (3.5-5.1); Sodium Level 137 mmol/L (136-145)
--- NOTE | 2023-02-27 09:55 | EKG12_ITS ---
Test Reason : ARRYTHMIA Blood Pressure : / mmHG Vent. Rate : 061 BPM Atrial Rate : 061 BPM P-R Int : 212 ms QRS Dur : 126 ms QT Int : 474 ms P-R-T Axes : 076 -20 093 degrees QTc Int : 477 ms Sinus rhythm with 1st degree A-V block Left bundle branch block Abnormal ECG When compared with ECG of 25-FEB-2023 13:28, MANUAL COMPARISON REQUIRED, DATA IS UNCONFIRMED Confirmed by UVALDO JULIAN, STEPHEN ([id number]), makeup editor ULISES RANGEL ([id number]) on 03/09/2023 11:06:41 AM Referred By: TONE Confirmed By:VALE BAILON MD
--- NOTE | 2023-02-27 09:55 | PCM.PN.HOSP ---
Reason for Visit Reason for Visit: Diagnoses Acute kidney failure, unspecified (02/25/23) Objective Data Objective Data Vital Signs: Vital Signs Temp Pulse Resp BP Pulse Ox O2 Del Method 97.8 F 60 16 102/58 L 97 Room Air 02/27/23 02:34 02/27/23 02:34 02/27/23 02:34 02/27/23 02:34 02/27/23 02:34 02/27/23 02:34 Oxygen Delivery Method Room Air Weight: 297 lb 4 oz Body Mass Index (BMI) 42.6 Intake & Output: Intake and Output for Last 24 Hours 02/25/23 02/26/23 02/27/23 23:59 23:59 23:59 Intake Total 1999 3917.09 / 3917.09 1305 / 1305 Output Total 625 / 625 450 / 450 Balance 1999 3292.09 / 3292. 855 / 855 Lab / Micro Data 02/25/23 12:50 02/27/23 05:35 Labs: Laboratory Results - last 24 hr 02/27/23 05:35: Sodium 137, Potassium 3.3 L, Chloride 108 H, Carbon Dioxide 23.0, Anion Gap 6, BUN 32 H, Creatinine 2.71 H, Estim Creat Clear Calc 31.05, Est GFR (MDRD) Af Amer 31 L, Est GFR (MDRD) Non-Af 26 L, BUN/Creatinine Ratio 11.8, Glucose 115 H, Calcium 8.5 Physical Exam Narrative Seen and examined. Patient states he has tremors it is getting better. He has good appetite. Denies nausea vomiting or diarrhea. No abdominal pain. [place] level better. Urine color is clear He is voiding urine. Physical exam General: Alert, Oriented x3, Cooperative, morbid obesity BMI 42.7 kg/m? HEENT: Atraumatic, PERRLA, EOMI, Normocephalic Oral: No Gingival or Mucosal Lesions/ Ulcerations Neck: Supple, No JVD, Negative Carotid Bruits Lungs: Air entry diminished in bilateral lung bases. No crepitation/rhonchi Cardiovascular: Regular rate, Regular Rhythm, Normal S1, Normal S2, No murmurs Abdomen: Bowel Sounds Present, Soft, Non Tender, Non-Distended : Voiding clear urine. No renal angle tenderness. No suprapubic tenderness. No dysuria. Extremities: No edema, Capillary Refill Less than 3 Seconds Skin: No rashes, No breakdown Musculoskeletal: No Tenderness to Palpation of Joints or Extremities Neurological: Cranial nerves II-XII grossly intact, DTR 2+/4. Tremors predominantly in upper extremities. No focal weakness or gross change in sensation. Psych/Mental Status: Flat affect. Assessment & Plan Assessment/Plan (1) Acute kidney injury: PLAN: Plan 1. Acute kidney injury-patient: Patient is admitted to [facility] floor. Patient has normal baseline creatinine 0.95 on 01/20/2020. Potassium slightly low at 3.0 and replacement ordered. Security Field Supervisor consulted. Had kidney ultrasound which reported normal on December 1922. UA on admission so no blood 30 protein. U tox positive for ecstasy. Patient is on IV fluid 0.45 normal saline with potassium supplement 200 mL/h. Hold nephrotoxic medication including diclofenac, ramipril and lithium. 02/27: Hypokalemia potassium 3.3. Creatinine profile better, BUN/creatinine 32/2.71. Positive fluid balance 6 L as documented. Patient is voiding spontaneously, charting may be underestimated, total 625 ml on 02/26 and 450 mils today since midnight. CPK 256. Patient is nonoliguric.\ No acute indication of renal replacement therapy. #2 elevated lithium level with lithium toxicity: Unclear whether patient is confusion, tremors is due to lithium toxicity. [place] is discontinued for now. Monitor lithium level. Patient's lithium will be held, lithium level will be repeated tomorrow 02/26: Patient EKG shows sinus bradycardia 58/min, first-degree block, chronic LBBB. QTc 482 ms on 02/25 EKG. On anesthesiologist/physician and sinus bradycardia. Previous EKG on 17 January normal sinus rhythm, 66/min QTc 494 ms, minimal LVH with LBBB. 02/27: Repeat EKG normal sinus rhythm at 61 bpm, first-degree AV block. QTc 477 ms. LBBB. [place] level is 1.0. #3 Acute toxic/metabolic encephalopathy, multiple etiologies secondary to lithium toxicity and CARLOS: Treat underlying disorder. Continue IV fluid #4 bipolar disorder-patient will remain on his medications except for his lithium #5 hyperlipidemia-patient is on Zetia #6 hypertension-patient's ramipril will be held at this time due to his elevated kidney functions, blood pressure will be monitored 02/27: Blood pressure on the lower side therefore Coreg dose decreased 6.25 mg twice daily with holding parameters. Continue IV fluid. #7 obstructive sleep apnea-patient does not use CPAP, he is noncompliant Charges/Coding Visit Charges Inpatient E&M: 79397 Subs Hosp L2
[2023-02-27] MEDS: Carvedilol 12.5 MG Tablet PO (10:03)
[2023-02-27] MEDS: Ezetimibe 10 MG Tablet PO (10:03)
[2023-02-27] MEDS: buPROPion (SR) 150 MG Tablet.SA PO ×2 (10:03→20:30)
[2023-02-27 10:14] VITALS: BP 100/62; PULSE 55; RESP 16; TEMP 36.4; O2SAT 94
[2023-02-27 10:48] LABS: CPK Total, Creatine Kinase 256 U/L (39-308)
[2023-02-27] MEDS: Senna/Docusate Sodium 1 Tablet 2 TABLET PO ×2 (12:04→20:29)
[2023-02-27 12:11] VITALS: BP 105/66; PULSE 58; RESP 18; TEMP 36.4; O2SAT 98
--- NOTE | 2023-02-27 14:32 | PCM.PN.REN ---
Objective Data Objective Data Vital Signs: Vital Signs Temp Pulse Resp BP Pulse Ox O2 Del Method 97.6 F L 58 L 18 105/66 98 Room Air 02/27/23 12:11 02/27/23 12:11 02/27/23 12:11 02/27/23 12:11 02/27/23 12:11 02/27/23 12:11 Oxygen Delivery Method Room Air Weight: 134.83 kg Body Mass Index (BMI) 42.6 Intake & Output: Intake and Output for Last 24 Hours 02/25/23 02/26/23 02/27/23 23:59 23:59 23:59 Intake Total 1999 3917.09 / 3917.09 1425 / 1425 Output Total 625 / 625 450 / 450 Balance 1999 3292.09 / 329. 975 / 975 Lab / Micro Data 02/25/23 12:50 02/27/23 05:35 Labs: Laboratory Results - last 24 hr 02/27/23 05:35: Sodium 137, Potassium 3.3 L, Chloride 108 H, Carbon Dioxide 23.0, Anion Gap 6, BUN 32 H, Creatinine 2.71 H, Estim Creat Clear Calc 31.05, Est GFR (MDRD) Af Amer 31 L, Est GFR (MDRD) Non-Af 26 L, BUN/Creatinine Ratio 11.8, Glucose 115 H, Calcium 8.5, Total Creatine Kinase 256, [place] 2.00 H* Physical Exam Narrative Alert and oriented, no apparent distress. Difficult time finishing sentences S1, S2, RRR Lung sounds clear anteriorly and posteriorly. No wheezes, rhonchi or rales noted Abdomen soft, nontender No edema Assessment & Plan Assessment/Plan (1) Acute kidney injury: (2) Abnormal lithium level in blood: (3) History of bipolar disorder: PLAN: Plan This is a 57-year-old male with past medical history significant for bipolar disorder on lithium, anxiety/depression, hypertension who was brought [facility] emergency room from local [facility] for evaluation of altered mental status. Serum creatinine 4.85 and lithium level 2.20 on admission. Patient was started on IV fluids admitted for further evaluation and treatment. He also received IV fluid boluses as blood pressures noted to be low in the emergency room. - nonoliguric CARLOS with normal baseline creatinine. CARLOS likely prerenal from ATN with concurrent KELSEY-I, NSAID, lithium. SCr 4.8 on admission --> today SCr 2.71. [place] level 2.2 on admission --> today lithium level 2.0. CPK 256. Patient is nonoliguric, appears near euvolemic, making urine and acid-base and potassium acceptable, therefore no acute indication for renal replacement therapy. Patient has normal baseline kidney function, serum creatinine 0.90 on 01/20/2020. Renal ultrasound on 01/13/23 did not show any hydronephrosis, normal ultrasound of kidneys and urinary bladder. UA on admission no blood, 30 protein; urine for toxicology positive for ecstasy but otherwise negative. Continue holding diclofenac, lithium and ramipril. - bps still on low side, will hold norvasc for now. Decrease coreg (holding parameters added). Continue IVF as ordered for another day. - discussed nephrology plan with Dr. Sung
--- NOTE | 2023-02-27 15:27 | CASEMGMT ---
TC to [facility], spoke with Sglacey Hudson who states pt may be dc'd home and they will set up a new date for him. Updated SW.
[2023-02-27] MEDS: 0.45% Normal Saline 1,000 ML 75 ML IV (15:30)
--- NOTE | 2023-02-27 16:31 | CASEMGMT ---
BRODERICK CM into pt room, pt states his car is at Meghan Dooley's home. TC to Meghan's phone, she is aware pt will be calling her and she confirms she has his car at her home. Meghan's phone number is [phone].
[2023-02-27 18:10] VITALS: BP 104/62; PULSE 82; RESP 18; TEMP 36.4; O2SAT 98
[2023-02-27 20:25] VITALS: BP 131/81; PULSE 61; RESP 16; TEMP 36.7; O2SAT 98
[2023-02-27] MEDS: lamoTRIgine 100 MG Tablet 400 MG PO (20:30)
[2023-02-27] MEDS: Tamsulosin HCl 0.4 MG Capsule PO (20:30)
[2023-02-27] MEDS: Carvedilol 6.25 MG Tablet PO (20:32)
[2023-02-28 04:42] VITALS: BP 127/73; PULSE 67; RESP 16; TEMP 37.1; O2SAT 98
[2023-02-28] MEDS: 0.45% Normal Saline 1,000 ML 75 ML IV (04:43)
[2023-02-28 07:16] LABS: Anion Gap 5 (5-15); BUN 23 mg/dL (7-18); BUN/Creat Ratio 12.3 RATIO (10-20); Chloride 108 mmol/L (98-107); Creatinine, Serum 1.87 mg/dL (0.70-1.30); EST Glomerular Filtration Rate 40 mL/min (>60); Est Glom Filt Rate - Afr Amer 48 mL/min (>60); Glucose 125 mg/dL (74-106); Potassium 3.2 mmol/L (3.5-5.1); Sodium Level 138 mmol/L (136-145)
--- NOTE | 2023-02-28 09:54 | PCM.PN.HOSP ---
Reason for Visit Reason for Visit: Diagnoses Acute kidney failure, unspecified (02/25/23) Objective Data Objective Data Vital Signs: Vital Signs Temp Pulse Resp BP Pulse Ox O2 Del Method 98.8 F 67 16 127/73 H 98 Room Air 02/28/23 04:42 02/28/23 04:42 02/28/23 04:42 02/28/23 04:42 02/28/23 04:42 02/28/23 04:42 Oxygen Delivery Method Room Air Weight: 297 lb 4 oz Body Mass Index (BMI) 42.6 Intake & Output: Intake and Output for Last 24 Hours 02/26/23 02/27/23 02/28/23 23:59 23:59 23:59 Intake Total 3917.09 / 3917.09 1425 / 1425 1291.25 / 1291.25 Output Total 625 / 625 1050 / 1050 775 / 775 Balance 3292.09 / 3292.09 375 / 375 516.25 / 516.25 Lab / Micro Data 02/25/23 12:50 02/28/23 05:38 Labs: Laboratory Results - last 24 hr 02/27/23 05:35: Total Creatine Kinase 256, [place] 2.00 H* 02/28/23 05:38: Sodium 138, Potassium 3.2 L, Chloride 108 H, Carbon Dioxide 25.0, Anion Gap 5, BUN 23 H, Creatinine 1.87 H, Estim Creat Clear Calc 45.00, Est GFR (MDRD) Af Amer 48 L, Est GFR (MDRD) Non-Af 40 L, BUN/Creatinine Ratio 12.3, Glucose 125 H, Calcium 9.0 Physical Exam Narrative Seen and examined. Patient states he has tremors it is getting better. He has good appetite. Denies nausea vomiting or diarrhea. No abdominal pain. [place] level better. Urine color is clear He is voiding urine. Physical exam General: Alert, Oriented x3, Cooperative, morbid obesity BMI 42.7 kg/m? HEENT: Atraumatic, PERRLA, EOMI, Normocephalic Oral: No Gingival or Mucosal Lesions/ Ulcerations Neck: Supple, No JVD, Negative Carotid Bruits Lungs: Air entry diminished in bilateral lung bases. No crepitation/rhonchi Cardiovascular: Regular rate, Regular Rhythm, Normal S1, Normal S2, No murmurs Abdomen: Bowel Sounds Present, Soft, Non Tender, Non-Distended : Voiding clear urine. No renal angle tenderness. No suprapubic tenderness. No dysuria. Extremities: No edema, Capillary Refill Less than 3 Seconds Skin: No rashes, No breakdown Musculoskeletal: No Tenderness to Palpation of Joints or Extremities Neurological: Cranial nerves II-XII grossly intact, DTR 2+/4. Tremors predominantly in upper extremities. No focal weakness or gross change in sensation. Psych/Mental Status: Flat affect. Assessment & Plan Assessment/Plan (1) Acute kidney injury: PLAN: Plan 1. Acute kidney injury-patient: Patient is admitted to [facility] floor. Patient has normal baseline creatinine 0.95 on 01/20/2020. Potassium slightly low at 3.0 and replacement ordered. [employer] consulted. Had kidney ultrasound which reported normal on December 1922. UA on admission so no blood 30 protein. U tox positive for ecstasy. Patient is on IV fluid 0.45 normal saline with potassium supplement 200 mL/h. Hold nephrotoxic medication including diclofenac, ramipril and lithium. 02/27: Hypokalemia potassium 3.3. Creatinine profile better, BUN/creatinine 32/2.71. Positive fluid balance 6 L as documented. Patient is voiding spontaneously, charting may be underestimated, total 625 ml on 02/26 and 450 mils today since midnight. CPK 256. Patient is nonoliguric. No acute indication of renal replacement therapy. 02/28: Mild hypokalemia, potassium 3.2. Potassium supplementation ordered serum magnesium and phosphorus level are normal.BUN/creatinine improving 23/1.87 today. #2 elevated lithium level with lithium toxicity: Unclear whether patient is confusion, tremors is due to lithium toxicity. [place] is discontinued for now. Monitor lithium level. Patient's lithium will be held, lithium level will be repeated tomorrow 02/26: Patient EKG shows sinus bradycardia 58/min, first-degree block, chronic LBBB. QTc 482 ms on 02/25 EKG. On cosmetology educator and sinus bradycardia. Previous EKG on 17 January normal sinus rhythm, 66/min QTc 494 ms, minimal LVH with LBBB. 02/27: Repeat EKG normal sinus rhythm at 61 bpm, first-degree AV block. QTc 477 ms. LBBB. [place] level is 1.0. #3 Acute toxic/metabolic encephalopathy, multiple etiologies secondary to lithium toxicity and CARLOS: Treat underlying disorder. Continue IV fluid #4 bipolar disorder-patient will remain on his medications except for his lithium #5 hyperlipidemia-patient is on Zetia #6 hypertension-patient's ramipril will be held at this time due to his elevated kidney functions, blood pressure will be monitored 02/27: Blood pressure on the lower side therefore Coreg dose decreased 6.25 mg twice daily with holding parameters. Continue IV fluid. #7 obstructive sleep apnea-patient does not use CPAP, he is noncompliant
[2023-02-28 10:00] VITALS: BP 120/74; PULSE 68; RESP 18; TEMP 36.8; O2SAT 98
--- NOTE | 2023-02-28 10:04 | PCM.DC ---
Discharge Instructions Follow Up Care Test Results: Test results from this visit will be discussed in further detail at your follow-up appointment, if applicable. Discharge Plan Admission Admit Date/Time: 02/25/23 14:57 Primary Reason for Your Visit: CARLOS probably due to lithium toxicity Attending Provider: Jacob Sung Primary Care Provider: Jj Eason Consulting Providers: Mansoor Case; Cipriano Carlson Instructions Additional Instructions / Restrictions: Advised BMP, magnesium and phosphorus and serum lithium level in 5 days and follow with PCP Discharge Orders/Prescriptions Prescriptions: New carvedilol 6.25 mg Tablet 6.25 mg PO BID 30 Days Qty: 60 0RF Rx Instructions: Hold for 4 DAYS potassium chloride [Klor-Con M20] 20 mEq Tablet,Er Particles/Crystals 40 meq PO DAILY 3 Days Qty: 6 0RF Continued multivitamin [Daily Multi-Vitamin] Tablet 1 tab PO DAILY Hold Instructions: Order Changed lamotrigine 200 mg tablet 400 mg PO QHS acetaminophen 500 mg capsule 500 mg PO Q6H PRN (Reason: Pain) bupropion HCl [Wellbutrin SR] 150 mg tablet sustained-release 12 hr 150 mg PO BID tamsulosin 0.4 mg capsule 0.4 mg PO Q24H Patient Comments: TAKE 1 CAPSULE BY MOUTH BEFORE BEDTIME ascorbic acid (vitamin C) [Vitamin C] 500 mg Tablet 1,000 mg PO DAILY Hold Instructions: Order Changed cholecalciferol (vitamin D3) [Vitamin D3] 25 mcg (1,000 unit) tablet,chewable 2,000 unit PO DAILY Hold Instructions: Order Changed nystatin 100,000 unit/mL Suspension 500,000 unit PO 4X/DAY Qty: 0 0RF Hold Instructions: Order Changed gabapentin 800 mg tablet 800 mg PO QHS ezetimibe [Zetia] 10 mg tablet 10 mg PO DAILY Qty: 90 3RF Held lithium carbonate 300 mg capsule 300 mg PO DAILY Hold Instructions: Hold for 4 DAYS diclofenac sodium 75 mg tablet,delayed release (DR/EC) 75 mg PO BID Hold Instructions: Hold for 7 days and check with PCP ramipril 10 mg Capsule 10 mg PO QHS Hold Instructions: Hold for 5 DAYS lithium carbonate 300 mg Capsule 300 mg PO QHS Qty: 0 0RF Hold Instructions: Hold for 4 DAYS amlodipine 5 mg tablet 5 mg PO QHS Qty: 90 3RF Hold Instructions: Hold for SBP less than 130 mmHg Discontinued carvedilol 12.5 mg tablet 25 mg PO BID hydralazine 25 mg tablet 50 mg PO Q12H Referrals / Follow Up: Jj Eason MD [Primary Care Provider] - Saman Chan DO [Med Staff - [place] Compliance Coordinator] - Within 1 Week (History of bipolar and on lithium carbonate. Had lithium toxicity) Cipriano Carlson MD [Med Staff - Consulting] - Within 2 Weeks (With follow-up for BMP and lithium level) Disposition Disposition (needs filled in before D/C Order can be placed): Home, Self Care
[2023-02-28] MEDS: Polyethylene Glycol 3350 17 GM PACKET PO (10:40)
[2023-02-28] MEDS: Carvedilol 6.25 MG Tablet PO (10:40)
[2023-02-28] MEDS: buPROPion (SR) 150 MG Tablet.SA PO (10:40)
[2023-02-28] MEDS: Senna/Docusate Sodium 1 Tablet 2 TABLET PO (10:41)
[2023-02-28] MEDS: Ezetimibe 10 MG Tablet PO (10:41)
[2023-02-28] MEDS: Potassium Chloride Oral Tablet 20 MEQ 40 MEQ PO ×2 (10:43→13:27)
--- NOTE | 2023-02-28 11:13 | DS.PCM_ITS ---
Providers Date of Admission: 02/25/23 Date of Discharge: 02/28/23 Primary Care Physician: Dr. Jj Eason MD Consultations 02/26/23 08:11 Consult: Nephrology Routine Consulting Provider: Cipriano Carlson Reason for Consult: CARLOS, Lupton toxicity EMERGENT Consult: No MD Notified: Yes Date Notified: 02/26/23 Time Notified: 08:12 Method of Notification: Verbal Reason For Visit: CARLOS Diagnosis Discharge Diagnosis (1) Acute kidney injury: Status: Acute Code(s): N17.9 - Acute kidney failure, unspecified Plan 1. Acute kidney injury-patient: Patient is admitted to [facility] floor. Patient has normal baseline creatinine 0.95 on 01/20/2020. Potassium slightly low at 3.0 and replacement ordered. Events Traffic Controller consulted. Had kidney ultrasound which reported normal on December 1922. UA on admission so no blood 30 protein. U tox positive for ecstasy. Patient is on IV fluid 0.45 normal saline with potassium supplement 200 mL/h. Hold nephrotoxic medication including diclofenac, ramipril and lithium. 02/27: Hypokalemia potassium 3.3. Creatinine profile better, BUN/creatinine 32/2.71. Positive fluid balance 6 L as documented. Patient is voiding sp ontaneously, charting may be underestimated, total 625 ml on 02/26 and 450 mils today since midnight. CPK 256. Patient is nonoliguric. No acute indication of renal replacement therapy. 02/28: Mild hypokalemia, potassium 3.2. Potassium supplementation ordered serum magnesium and phosphorus level are normal.BUN/creatinine improving 23/1.87 today. Discussed with the health information technician. CARLOS is getting better. Advised BMP, serum magnesium and phosphorus and serum lithium level in 1 week follow with PCP. Follow-up with health information technician in about 2 weeks. #2 elevated lithium level with lithium toxicity: Unclear whether patient is confusion, tremors is due to lithium toxicity. Lupton is discontinued for now. Monitor lithium level. Patient's lithium will be held, lithium level will be repeated tomorrow 02/26: Patient EKG shows sinus bradycardia 58/min, first-degree block, chronic LBBB. QTc 482 ms on 02/25 EKG. On pvc monitor and sinus bradycardia. Previous EKG on 17 January normal sinus rhythm, 66/min QTc 494 ms, minimal LVH with LBBB. 02/27: Repeat EKG normal sinus rhythm at 61 bpm, first-degree AV block. QTc 477 ms. LBBB. Lupton level is 1.0. #3 Acute toxic/metabolic encephalopathy, multiple etiologies secondary to lithium toxicity and CARLOS: Treat underlying disorder. Continue IV fluid #4 bipolar disorder-patient will remain on his medications except for his lithium Patient being on lithium as the risk of going to [place] without lithium therefore advised to hold for 4 days and follow-up with psychiatrist Dr. Chan and resume as per his instruction I am thinking that patient might have registrant kind of bipolar which might not responded with other first or second line medication for bipolar medication and perhaps only controlled with lithium. #5 hyperlipidemia-patient is on Zetia #6 hypertension-patient's ramipril will be held at this time due to his elevated kidney functions, blood pressure will be monitored 02/27: Blood pressure on the lower side therefore Coreg dose decreased 6.25 mg twice daily with holding parameters. Continue IV fluid. #7 obstructive sleep apnea-patient does not use CPAP, he is noncompliant Discharge medication reconciliation done. Discharge follow-up instructions completed. Discharge process discussed with the patient and all questions were answered to patient's satisfaction. Follow with PCP in 1 to 2 weeks Total time spent, exact 35 minutes on discharge meds reconciliation, examination, coordination of care with nurses and ancillary staff, review of imaging and blood test and discussion with the patient on follow-up instructions. Medications at Discharge Home Medications multivitamin (Daily Multi-Vitamin tablet) 1 tab PO DAILY supplement 12/01/19 lamotrigine 200 mg tablet 400 mg PO QHS skin 08/02/20 acetaminophen 500 mg capsule 500 mg PO Q6H PRN Pain 05/21/21 bupropion HCl 150 mg tablet,12 hr sustained-release (Wellbutrin SR) 150 mg PO BI D depression 12/03/21 diclofenac sodium 75 mg tablet,delayed release 75 mg PO BID pain 12/03/21 lithium carbonate 300 mg capsule 300 mg PO DAILY psych 02/05/22 ascorbic acid (vitamin C) 500 mg tablet (Vitamin C) 1,000 mg PO DAILY vitamin 05/27/22 cholecalciferol (vitamin D3) 25 mcg (1,000 unit) chewable tablet (Vitamin D3) 2,000 unit PO DAILY vitamin 05/27/22 ramipril 10 mg capsule 10 mg PO QHS bp 05/27/22 tamsulosin 0.4 mg capsule 0.4 mg PO Q24H prostate 11/14/22 amlodipine 5 mg tablet 5 mg PO QHS blood pressure #90 tabs 11/25/22 ezetimibe 10 mg tablet (Zetia) 10 mg PO DAILY cholesterol #90 tabs 12/02/22 lithium carbonate 300 mg capsule 300 mg PO QHS depression #0 caps 01/21/23 nystatin 100,000 unit/mL oral suspension 500,000 unit (5 mL) PO 4X/DAY skin #0 mL 01/21/23 gabapentin 800 mg tablet 800 mg PO QHS pain 02/25/23 carvedilol 6.25 mg tablet 6.25 mg PO BID 30 days #60 tabs 02/28/23 potassium chloride 20 mEq tablet,extended release(part/cryst) (Klor-Con M) 40 meq (2 x 20 mEq) PO DAILY 3 days #6 tabs 02/28/23 Physical Exam Narrative Seen and examined. Patient states his tremors are better he has good appetite. Denies nausea vomiting or diarrhea. No abdominal pain. Lupton level better. Urine color is clear He is voiding urine spontaneously. Physical exam General: Alert, Oriented x3, Cooperative, morbid obesity BMI 42.7 kg/m? HEENT: Atraumatic, PERRLA, EOMI, Normocephalic Oral: No Gingival or Mucosal Lesions/ Ulcerations Neck: Supple, No JVD, Negative Carotid Bruits Lungs: Air entry diminished in bilateral lung bases. No crepitation/rhonchi Cardiovascular: Regular rate, Regular Rhythm, Normal S1, Normal S2, No murmurs Abdomen: Bowel Sounds Present, Soft, Non Tender, Non-Distended : Voiding clear urine. No renal angle tenderness. No suprapubic tenderness. No dysuria. Extremities: Mild leg swelling probably from IV fluid. IV fluid discontinued, Capillary Refill Less than 3 Seconds Skin: No rashes, No breakdown Musculoskeletal: No Tenderness to Palpation of Joints or Extremities Neurological: Cranial nerves II-XII grossly intact, DTR 2+/4. Tremors predominantly in upper extremities. No focal weakness or gross change in sensation. Psych/Mental Status: Flat affect. Weight / BMI Weight Weight: 297 lb 4 oz Body Mass Index (BMI) 42.6 ABG / Lab / Microbiology Data 02/25/23 12:50 02/28/23 05:38 Laboratory: Laboratory Results - last 24 hr 02/27/23 05:35: Lupton 2.00 H* 02/28/23 05:38: Sodium 138, Potassium 3.2 L, Chloride 108 H, Carbon Dioxide 25.0, Anion Gap 5, BUN 23 H, Creatinine 1.87 H, Estim Creat Clear Calc 45.00, Est GFR (MDRD) Af Amer 48 L, Est GFR (MDRD) Non-Af 40 L, BUN/Creatinine Ratio 12.3, Glucose 125 H, Calcium 9.0 Meaningful Use Info Meaningful Use Diagnoses (Choose all that apply): None applicable Discharge Plan Admission Admit Date/Time: 02/25/23 14:57 Primary Reason for Your Visit: CARLOS probably due to lithium toxicity Attending Provider: Jacob Sung Primary Care Provider: Jj Eason Consulting Providers: Mansoor Case; Cipriano Carlson Instructions Additional Instructions / Restrictions: Advised BMP, magnesium and phosphorus and serum lithium level in 5 days and follow with PCP Discharge Orders/Prescriptions Prescriptions: New carvedilol 6.25 mg Tablet 6.25 mg PO BID 30 Days Qty: 60 0RF Rx Instructions: Hold for 4 DAYS potassium chloride [Klor-Con M20] 20 mEq Tablet,Er Particles/Crystals 40 meq PO DAILY 3 Days Qty: 6 0RF Continued multivitamin [Daily Multi-Vitamin] Tablet 1 tab PO DAILY Hold Instructions: Order Changed lamotrigine 200 mg tablet 400 mg PO QHS acetaminophen 500 mg capsule 500 mg PO Q6H PRN (Reason: Pain) bupropion HCl [Wellbutrin SR] 150 mg tablet sustained-release 12 hr 150 mg PO BID tamsulosin 0.4 mg capsule 0.4 mg PO Q24H Patient Comments: TAKE 1 CAPSULE BY MOUTH BEFORE BEDTIME ascorbic acid (vitamin C) [Vitamin C] 500 mg Tablet 1,000 mg PO DAILY Hold Instructions: Order Changed cholecalciferol (vitamin D3) [Vitamin D3] 25 mcg (1,000 unit) tablet,chewable 2,000 unit PO DAILY Hold Instructions: Order Changed nystatin 100,000 unit/mL Suspension 500,000 unit PO 4X/DAY Qty: 0 0RF Hold Instructions: Order Changed gabapentin 800 mg tablet 800 mg PO QHS ezetimibe [Zetia] 10 mg tablet 10 mg PO DAILY Qty: 90 3RF Held lithium carbonate 300 mg capsule 300 mg PO DAILY Hold Instructions: Hold for 4 DAYS diclofenac sodium 75 mg tablet,delayed release (DR/EC) 75 mg PO BID Hold Instructions: Hold for 7 days and check with PCP ramipril 10 mg Capsule 10 mg PO QHS Hold Instructions: Hold for 5 DAYS lithium carbonate 300 mg Capsule 300 mg PO QHS Qty: 0 0RF Hold Instructions: Hold for 4 DAYS amlodipine 5 mg tablet 5 mg PO QHS Qty: 90 3RF Hold Instructions: Hold for SBP less than 130 mmHg Discontinued carvedilol 12.5 mg tablet 25 mg PO BID hydralazine 25 mg tablet 50 mg PO Q12H Referrals / Follow Up: Jj Eason MD [Primary Care Provider] - Cipriano Carlson MD [Med Staff - Consulting] - Within 2 Weeks (With follow-up for BMP and lithium level) Saman Chan DO [Med Staff - Apprentice] - Within 1 Week (History of bipolar and on lithium carbonate. Had lithium toxicity) Disposition Disposition (needs filled in before D/C Order can be placed): Home, Self Care Charges/Coding Visit Charges Inpatient E&M: 53747 Disch Hosp >30min
--- NOTE | 2023-02-28 13:01 | PN.RENAL_ITS ---
Subjective Subjective No new complaints today Objective Data Objective Data Vital Signs: Vital Signs Temp Pulse Resp BP Pulse Ox O2 Del Method 98.3 F 68 18 120/74 98 Room Air 02/28/23 10:00 02/28/23 10:00 02/28/23 10:00 02/28/23 10:00 02/28/23 10:00 02/28/23 10:00 Oxygen Delivery Method Room Air Weight: 134.83 kg Body Mass Index (BMI) 42.6 Intake & Output: Intake and Output for Last 24 Hours 02/26/23 02/27/23 02/28/23 23:59 23:59 23:59 Intake Total 3917.09 / 3917.09 1425 / 1425 1291.25 / 1291.25 Output Total 625 / 625 1050 / 1050 775 / 775 Balance 3292.09 / 3292.09 375 / 375 516.25 / 516.25 Lab / Micro Data 02/25/23 12:50 02/28/23 05:38 Labs: Laboratory Results - last 24 hr 02/28/23 05:38: Sodium 138, Potassium 3.2 L, Chloride 108 H, Carbon Dioxide 25.0, Anion Gap 5, BUN 23 H, Creatinine 1.87 H, Estim Creat Clear Calc 45.00, Est GFR (MDRD) Af Amer 48 L, Est GFR (MDRD) Non-Af 40 L, BUN/Creatinine Ratio 12.3, Glucose 125 H, Calcium 9.0 Physical Exam Narrative Alert and oriented, no apparent distress. Difficult time finishing sentences S1, S2, RRR Lung sounds clear anteriorly and posteriorly. No wheezes, rhonchi or rales noted Abdomen soft, nontender No edema Assessment & Plan Assessment/Plan (1) Acute kidney injury: (2) Abnormal lithium level in blood: (3) History of bipolar disorder: PLAN: Plan This is a 57-year-old male with past medical history significant for bipolar disorder on lithium, anxiety/depression, hypertension who was brought to the emergency room from local correction for evaluation of altered mental status. Serum creatinine 4.85 and lithium level 2.20 on admission. Patient was started on IV fluids admitted for further evaluation and treatment. He also received IV fluid boluses as blood pressures noted to be low in the emergency room. - nonoliguric CARLOS with normal baseline creatinine. CARLOS likely prerenal from ATN with concurrent KELSEY-I, NSAID, lithium. SCr 4.8 on admission --> down to 1.7. [place] level 2.2 on admission --> 02/27/23 lithium level 2.0. CPK 256. Patient is nonoliguric, appears near euvolemic, making urine and acid-base and potassium acceptable. Patient has normal baseline kidney function, serum creatinine 0.90 on 01/19/23. Renal ultrasound on 01/13/23 did not show any hydronephrosis, normal ultrasound of kidneys and urinary bladder. UA on admission no blood, 30 protein; urine for toxicology positive for ecstasy but otherwise negative. Continue holding diclofenac, lithium and ramipril. Discussed with hospitalist. Medically stable otherwise. From a nephrology standpoint, no further work-up needed since creatinine is improving. He will ne ed a BMP in a week. With respect to lithium, this is for history of bipolar disease. Needs to be evaluated by psychiatry before any medications are changed. I would hold lithium for another 3 to 4 days and resume at previous dose once creatinine is improved back to baseline.
--- NOTE | 2023-02-28 14:10 | CASEMGMT ---
BRODERICK MORAGN NOTE: Pt being discharged. Therapy worked w/pt today and spoke w/this BRODERICK MORGAN and HHC recommended. BRODERICK MORGAN to room. Pt made aware of therapy's recommendations. Questions answered. Pt states he feels he will be safe to discharge home and thinks HHC would be a good idea. Pt made aware, his PCP, Dr Eason, requires office visit prior to following for HHC and that his office can set the HHC up. Pt states he will discuss HHC w/Dr Eason when he goes in to see him @ his hospital f/u appt. 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 Per BRODREICK Rainey's note yesterday, she spoke w/Sergeant Hudson @ [facility] retirement who stated pt can discharge home and they will set up a new date for him. Pt made aware of above and given written note by this BRODERICK MORGAN w/this information as well per pt's request. Pt voices appreciation. He denies having other discharge planning needs or concerns. Lisa COSTELLO RN, CM
[2023-02-28 17:46] VITALS: BP 138/83; PULSE 71; RESP 18; TEMP 36.6; O2SAT 98
[2023-02-28 18:56] VITALS: BP 138/83; PULSE 71; RESP 18; TEMP 36.7; O2SAT 98
--- NOTE | 2023-03-05 23:44 | PCM.HP.STD ---
[facility] - General General Date of Admission: 02/25/23 Date of Service: 03/06/23 Chief Complaint: Confusion, nausea and vomiting with elevated troponin and BNP at [place] HPI Narrative MELIZA EASTMAN, is a 57 M with a past medical history of essential hypertension, hyperlipidemia; with listed allergy to multiple statins, morbid obesity with BMI of 42.7 this admission, obstructive sleep apnea; noncompliant with CPAP, degenerative disc disease, osteoarthritis with history of Left hip replacement in 2017; with chronic pain in both hips and knees causing him to have to ambulate with a cane, documented penicillin allergy, history of Left heart catheterization in 2012 and bipolar disorder; previously on lithium, medical noncompliance and recent admission here from 02/25/2023 to 02/28/2023 after being transferred from a local senior living to the ER here for complaints of strokelike symptoms and confusion with fall and was found to have a severe acute kidney injury; with a serum creatinine of 4.85 mg/dL and lithium toxicity; with a level of 2.2 present on that admission complicated by tremors with acute toxic/metabolic encephalopathy with his urine drug screen positive for MDMA (ecstasy) with a similar admission treated here in December 2022 who was transferred directly from [facility] by Dr. Ahn to [facility] after he was found to have an elevated troponin, elevated BNP, confusion and vomiting. According to Dr. hAn Mr. Eastman has not taken any of his medications since he was discharged from here. His lithium carbonate, diclofenac sodium and ramipril were all to be held for at least 4 days but he was supposed to continue to take lamotrigine, bupropion, tamsulosin, gabapentin and Zetia. He also complained of confusion and nausea with vomiting causing bilious emesis so his friend brought him to the ER for further evaluation and treatment. He has apparently been seen in the past by Dr. Mendez of the cardiology service here so the ER physician at [place] thought it would be prudent to send him here for further continuity of care in spite of his ongoing track record of noncompliance and serial readmission. According to our records he has a positive family history of myocardial infarction in both his mother and father and this gentleman reported to Dr. Ahn that he had not had a recent stress test or echocardiogram. 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 He was then reluctantly admitted here to the CDU under observation status with elevated troponin and elevated proBNP complicated by confusion and nausea with vomiting in the setting of severe medical noncompliance for a stay that is expected to be less than 48 hours. [facility] Medical History (Updated 03/06/23 @ 00:[address] Emery Paul, DO) Ambulates with cane Anxiety Anxiety and depression Arthritis Back pain Bipolar disorder Body mass index (BMI) 35 or more Breast mass, left Cancer Cardiology follow-up encounter Cataract, left eye Chest pain Chronic cough Chronic pain of both knees CPAP (continuous positive airway pressure) dependence Degenerative joint disease (DJD) of hip Depression Disc degeneration, lumbar Dizziness Essential (primary) hypertension Headache High cholesterol History of echocardiogram History of edema History of pain when walking History of stress test Hx of reactive hypoglycemia Hyperlipidemia Hypertension Iliotibial band syndrome affecting left lower leg Injury of head and neck Left shoulder pain Loss of consciousness Medical non-compliance Metabolic encephalopathy Non-smoker Obesity Obesity Obesity, morbid, BMI 50 or higher RAY (obstructive sleep apnea) Osteoarthritis of right hip Osteoarthritis of right hip Pain Palpitations Primary osteoarthritis, left shoulder Primary osteoarthritis, right shoulder Right shoulder pain Shortness of breath on exertion SOBOE (shortness of breath on exertion) Wears glasses Home Medications multivitamin (Daily Multi-Vitamin tablet) 1 tab PO DAILY supplement 12/01/19 [History Last Taken 01/12/23] lamotrigine 200 mg tablet 400 mg PO QHS skin 08/02/20 [History Last Taken 03/16/22] acetaminophen 500 mg capsule 500 mg PO Q6H PRN Pain 05/21/21 [History Last Taken 03/16/22] bupropion HCl 150 mg tablet,12 hr sustained-release (Wellbutrin SR) 150 mg PO BID depression 12/03/21 [History Last Taken 03/16/22] diclofenac sodium 75 mg tablet,delayed release 75 mg PO BID pain 12/03/21 [History Last Taken 03/16/22] lithium carbonate 300 mg capsule 300 mg PO DAILY psych 02/05/22 [History Last Taken 03/16/22] ascorbic acid (vitamin C) 500 mg tablet (Vitamin C) 1,000 mg PO DAILY vitamin 05/27/22 [History Last Taken Unknown] cholecalciferol (vitamin D3) 25 mcg (1,000 unit) chewable tablet (Vitamin D3) 2,000 unit PO DAILY vitamin 05/27/22 [History Last Taken Unknown] ramipril 10 mg capsule 10 mg PO QHS bp 05/27/22 [History Last Taken 09/29/22] tamsulosin 0.4 mg capsule 0.4 mg PO Q24H prostate 11/14/22 [History Last Taken Unknown] amlodipine 5 mg tablet 5 mg PO QHS blood pressure #90 tabs 11/25/22 [Rx Last Taken Unknown] ezetimibe 10 mg tablet (Zetia) 10 mg PO DAILY cholesterol #90 tabs 12/02/22 [Rx Last Taken Unknown] lithium carbonate 300 mg capsule 300 mg PO QHS depression #0 caps 01/21/23 [Rx Last Taken Unknown] nystatin 100,000 unit/mL oral suspension 500,000 unit (5 mL) PO 4X/DAY skin #0 mL 01/21/23 [Rx Last Taken Unknown] gabapentin 800 mg tablet 800 mg PO QHS pain 02/25/23 [History Last Taken Unknown] carvedilol 6.25 mg tablet 6.25 mg PO BID 30 days #60 tabs 02/28/23 [Rx Last Taken Unknown] potassium chloride 20 mEq tablet,extended release(part/cryst) (Klor-Con M) 40 meq (2 x 20 mEq) PO DAILY 3 days #6 tabs 02/28/23 [Rx Last Taken Unknown] Allergy/AdvReac Type Severity Reaction Status Date / Time atorvastatin [From Lipitor] Allergy Unknown Verified 02/25/23 15:00 Penicillins Allergy Unknown Verified 02/25/23 15:00 pravastatin [From Pravachol] Allergy Unknown Verified 02/25/23 15:00 tolmetin Allergy Hives Verified 02/25/23 15:00 meloxicam AdvReac Other Verified 02/25/23 15:00 Family History Mother Breast cancer Myocardial infarction Hypertension Father Colon cancer Myocardial infarction Surgical History H/O rotator cuff surgery History of carpal tunnel surgery of right wrist History of left heart catheterization (02/2013) History of left hip replacement (01/2017) History of open reduction and internal fixation (ORIF) procedure History of total left hip arthroplasty Hx of arthroscopy of left knee Hx of arthroscopy of right knee Hx of arthroscopy of shoulder Hx of exploratory laparotomy Hx of release of tendon Hx of right cataract extraction S/P partial mastectomy Social History Smoking Status: Never smoker alcohol intake: never substance use type: does not use caffeine: Yes Type: carbonated beverages Number of servings: 3 what type of physical activity do you participate in: none ROS ROS Narrative Review of systems: Constitutional: Vital Signs Vital Signs Vital Signs: Weight Weight: 297 lb 4 oz Body Mass Index (BMI) 42.6 Results Lab / Micro Data 02/25/23 12:50 02/28/23 05:38 Assessment & Plan Assessment/Plan (1) Elevated troponin: (2) Metabolic encephalopathy: (3) Nausea & vomiting: QUALIFIERS: Vomiting type: bilious vomiting Qualified Code(s): R11.14 - Bilious vomiting (4) Medical non-compliance: PLAN: Plan 1. Elevated troponin and brain natriuretic peptide likely due to medical noncompliance - Admit to CDU under observation status. Start aspirin and full dose Lovenox. Serialize troponin and BNP. Give IV Lasix for suspected volume overload and check chest x-ray and echocardiogram to evaluate left ventricular ejection fraction. According to our records the most recent heart catheterization he underwent was in 2012. Finally, we will consult Dr. Mendez of the cardiology service to see this patient on rounds in the a.m. with help appreciated in advance. 2. Metabolic encephalopathy with nausea and vomiting complicating #1 - Check urine drug screen given patient's previous positive screen for MDMA (ecstasy). Give as needed Zofran IV for nausea and vomiting. 3. Recent admission here from 02/25/2023 to 02/28/2023 after being transferred from a local senior living to the ER for complaints of strokelike symptoms with confusion and fall with patient found to have severe acute kidney injury with a serum creatinine of 4.85 mg/dL and lithium toxicity with a level of 2.2 present on admission complicated by clinical evidence of acute toxic metabolic encephalopathy with his urine drug screen positive for MDMA (ecstasy) - Noted. Dr. Ahn was informed that this patient will not be transferred emergently in the future if he continues to be noncompliant as it is not an optimal investment of the time and resources of this institution. 4. Morbid obesity with a BMI of 42.7 this admission and obstructive sleep apnea; with patient noncompliant with CPAP - Weight loss will be recommended. Check TSH. 5. Essential hypertension - Restart amlodipine as previously instructed. We will also give as needed IV hydralazine for systolic blood pressure greater than 160 mmHg. 6. Hyperlipidemia; with documented allergy to multiple statins on Zetia - Restart Zetia as previously instructed and check lipid profile this admission to make sure dose is effective. 7. Degenerative disc disease with osteoarthritis of the hips and knees causing him to ambulate with a cane - Continue supportive care. PT/OT and case management consult and treat with help appreciated in advance. 8. DVT prophylaxis - Patient will be started on full dose Lovenox for #1. Total time: Approximately 85 minutes. Charges/Coding Visit Charges OBSV E&M: 41078 Observ/hosp same date L3
== END 2023-02-28 19:00 | disposition home or self-care (01) | DRG 682 ==
LOC: ED 13:11 → MS3 14:26
PROVIDERS: Physician Assistant; Admitting Provider Internal Medicine; Emergency Provider Emergency Medicine; PCP Family Medicine; Visit Provider Internal Medicine
DX: N17.9 Acute kidney failure, unspecified (principal); G92.8 Other toxic encephalopathy; G93.41 Metabolic encephalopathy; Z68.41 Body mass index [BMI] 40.0-44.9, adult; I95.9 Hypotension, unspecified; E86.0 Dehydration; F31.9 Bipolar disorder, unspecified; I10 Essential (primary) hypertension; E78.00 Pure hypercholesterolemia, unspecified; G47.33 Obstructive sleep apnea (adult) (pediatric); F41.9 Anxiety disorder, unspecified; E87.6 Hypokalemia; T43.595A Adverse effect of other antipsychotics and neuroleptics, initial encounter; G89.29 Other chronic pain; E66.9 Obesity, unspecified; Z91.199 Patient's noncompliance with other medical treatment and regimen due to unspecified reason
CPT/HCPCS: 36415; 70450; 71045; 80048; 80053; 80178; 80307; 81001; 82550; 83735; 84100; 85025; 93005; 97116; 97162; 97166; 97530; 97535; 99285; J7030; A4216

== ENCOUNTER 2023-03-06 03:22 | Observation (INO) | payer MEDICARE, SELFPAY ==
[2023-03-06 01:35] VITALS: BMI 44.1
--- NOTE | 2023-03-06 02:37 | HP.PCM.HOS_ITS ---
[facility] - General General Date of Admission: 03/06/23 Date of Service: 03/06/23 Chief Complaint: Confusion, nausea, vomiting and elevated troponin and BNP at [facility] Narrative MELIZA EASTMAN, is a 57 M with a past medical history of essential hypertension, hyperlipidemia; with listed allergies to multiple statins, morbid obesity with a BMI of 44.2 this admission, obstructive sleep apnea; noncompliant with CPAP, degenerative disc disease, osteoarthritis with history of left hip replacement in 2016 and chronic pain in both hips and knees causing him to ambulate with a cane, documented penicillin allergy, history of left heart catheterization in 2012; previously evaluated by Dr. Mendez of the cardiology service and bipolar disorder; previously on lithium, medical noncompliance and recent admission here from 02/25/2023 to 02/28/2023 after being transferred from a local senior living to the ER for complaints of strokelike symptoms and confusion with a fall with him ultimately found to have severe acute kidney injury with a serum creatinine of 4.85 mg/dL and lithium toxicity with a level of 2.2 present on that admission complicated by tremors and acute toxic/metabolic encephalopathy with his urine drug screen also positive for MDMA (ecstasy) with a similar admission treated here in December 2022 who was transferred directly from [facility] by Dr. Ahn to [facility] after he was found to have an elevated troponin, elevated proBNP, confusion and vomiting. Mr. Ahn reports that he was confused about what medications to take and not take upon returning home and then became sick with GI upset causing nausea with bilious emesis on day #3 after his discharge so then he called his primary care physician who instructed him to come back to the hospital for further evaluation and treatment. He also admits to [id number] confusion that seems to worsened since he has been off of his lithium. He reports history of coronary artery disease and [place] and both his mother and father. He denies associated fever, chest pain, chest pressure, palpitations, shortness of breath, recent falls, headaches or diarrhea but he does admit to chills and 2+ lower extremity edema that is worse since he is left the hospital and has not wears compression stockings for the last 4 days either. 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 In the ER at [place] he was noted to have a CT scan of the head that was unremarkable for acute pathologic changes with a blood pressure of 180/102 mmHg consistent with uncontrolled hypertension complicated by an elevated BNP-T of 1,596 with a mildly elevated troponin of rising from 64 to 68 and acute kidney injury with a creatinine of 2.95 mg/dL present on admission compounded by clinical evidence of metabolic encephalopathy. He was also noted to have a normal lipase of 37 and a normal TSH of 2.83 with a lithium level of 0.4 and an EKG showed normal sinus rhythm at 65 bpm with evidence of left ventricular hypertrophy and no other acute changes. He was then admitted to the PCU for ongoing care for a stay that is expected to extend beyond 48 hours. [facility] Medical History Ambulates with cane Anxiety Anxiety and depression Arthritis Back pain Bipolar disorder Body mass index (BMI) 35 or more Breast mass, left Cancer Cardiology follow-up encounter Cataract, left eye Chest pain Chronic cough Chronic pain of both knees CPAP (continuous positive airway pressure) dependence Degenerative joint disease (DJD) of hip Depression Disc degeneration, lumbar Dizziness Essential (primary) hypertension Headache High cholesterol History of echocardiogram History of edema History of pain when walking History of stress test Hx of reactive hypoglycemia Hyperlipidemia Hypertension Iliotibial band syndrome affecting left lower leg Injury of head and neck Left shoulder pain Loss of consciousness Medical non-compliance Metabolic encephalopathy Non-smoker Obesity Obesity Obesity, morbid, BMI 50 or higher RAY (obstructive sleep apnea) Osteoarthritis of right hip Osteoarthritis of right hip Pain Palpitations Primary osteoarthritis, left shoulder Primary osteoarthritis, right shoulder Right shoulder pain Shortness of breath on exertion SOBOE (shortness of breath on exertion) Wears glasses Home Medications multivitamin (Daily Multi-Vitamin tablet) 1 tab PO DAILY supplement 12/01/19 [History Last Taken 01/12/23] lamotrigine 200 mg tablet 400 mg PO QHS skin 08/02/20 [History Last Taken 03/16/22] acetaminophen 500 mg capsule 500 mg PO Q6H PRN Pain 05/21/21 [History Last Taken 03/16/22] bupropion HCl 150 mg tablet,12 hr sustained-release (Wellbutrin SR) 150 mg PO BID depression 12/03/21 [History Last Taken 03/16/22] diclofenac sodium 75 mg tablet,delayed release 75 mg PO BID pain 12/03/21 [History Last Taken 03/16/22] lithium carbonate 300 mg capsule 300 mg PO DAILY psych 02/05/22 [History Last Taken 03/16/22] ascorbic acid (vitamin C) 500 mg tablet (Vitamin C) 1,000 mg PO DAILY vitamin 05/27/22 [History Last Taken Unknown] cholecalciferol (vitamin D3) 25 mcg (1,000 unit) chewable tablet (Vitamin D3) 2,000 unit PO DAILY vitamin 05/27/22 [History Last Taken Unknown] ramipril 10 mg capsule 10 mg PO QHS bp 05/27/22 [History Last Taken 09/29/22] tamsulosin 0.4 mg capsule 0.4 mg PO Q24H prostate 11/14/22 [History Last Taken Unknown] amlodipine 5 mg tablet 5 mg PO QHS blood pressure #90 tabs 11/25/22 [Rx Last Taken Unknown] ezetimibe 10 mg tablet (Zetia) 10 mg PO DAILY cholesterol #90 tabs 12/02/22 [Rx Last Taken Unknown] lithium carbonate 300 mg capsule 300 mg PO QHS depression #0 caps 01/21/23 [Rx Last Taken Unknown] nystatin 100,000 unit/mL oral suspension 500,000 unit (5 mL) PO 4X/DAY skin #0 mL 01/21/23 [Rx Last Taken Unknown] gabapentin 800 mg tablet 800 mg PO QHS pain 02/25/23 [History Last Taken Unknown] carvedilol 6.25 mg tablet 6.25 mg PO BID 30 days #60 tabs 02/28/23 [Rx Last Taken Unknown] potassium chloride 20 mEq tablet,extended release(part/cryst) (Klor-Con M) 40 meq (2 x 20 mEq) PO DAILY 3 days #6 tabs 02/28/23 [Rx Last Taken Unknown] Allergy/AdvReac Type Severity Reaction Status Date / Time atorvastatin [From Lipitor] Allergy Unknown Verified 02/25/23 15:00 Penicillins Allergy Unknown Verified 02/25/23 15:00 pravastatin [From Pravachol] Allergy Unknown Verified 02/25/23 15:00 tolmetin Allergy Hives Verified 02/25/23 15:00 meloxicam AdvReac Other Verified 02/25/23 15:00 Family History Mother Breast cancer Myocardial infarction Hypertension Father Colon cancer Myocardial infarction Surgical History H/O rotator cuff surgery History of carpal tunnel surgery of right wrist History of left heart catheterization (02/2013) History of left hip replacement (01/2017) History of open reduction and internal fixation (ORIF) procedure History of total left hip arthroplasty Hx of arthroscopy of left knee Hx of arthroscopy of right knee Hx of arthroscopy of shoulder Hx of exploratory laparotomy Hx of release of tendon Hx of right cataract extraction S/P partial mastectomy Social History Smoking Status: Never smoker alcohol intake: never substance use type: does not use caffeine: Yes Type: carbonated beverages Number of servings: 3 what type of physical activity do you participate in: none ROS ROS Narrative Review of systems: Constitutional: Positive for chills but negative for fever Eyes: Patient denies double vision or changes in vision ENT: Patient admits to dry mucous membranes with obviously poor dentition Cardiovascular: Patient denies chest pain or palpitations but he does admit to lower extremity edema Respiratory: Patient denies shortness of breath or cough Gastrointestinal: Positive for nausea and vomiting but negative for abdominal pa in or diarrhea Neurological: Positive for intermittent confusion and lightheadedness Psychiatric/behavioral: Patient denies ramirez or agitation Hematologic: Patient denies easy bruisability or easy bleeding Allergy: Patient denies urticaria or other allergy symptoms 14 point review of systems otherwise negative except for positives noted above in HPI. Vital Signs Vital Signs Vital Signs: Weight Weight: 308 lb 3.3 oz Body Mass Index (BMI) 44.1 Physical Exam Const alert and no apparent distress Constitutional Narrative: Patient appears obese. General Appearance: cooperative Orientation / Consciousness: confused HEENT normocephalic, head/scalp atraumatic, hearing grossly normal bilaterally and moist oral mucous membranes HEENT Narrative: Oropharynx dry. Eyes PERRL, EOMs intact bilaterally and conjunctivae normal Neck no lymphadenopathy, supple, no JVD and no carotid bruits Resp normal respiratory effort, no retractions, no use of accessory muscles and clear to auscultation bilaterally Cardio regular rate and regular rhythm GI normal to inspection, nondistended, normoactive bowel sounds, soft to palpation, non-tender and non-distended GI Narrative: Patient is morbidly obese. Extremity Extremity Narrative: Patient has 2+ bilateral lower extremity edema with evidence of dry skin. Skin Skin Narrative: Patient has a tattoo of the sun on his left forearm. Neuro CN's II-XII intact bilaterally, moves all extremities and no focal motor deficits Sensorium / Orientation: awake, alert, oriented to person and oriented to place Speech: speech normal Motor Exam: strength 5/5 throughout Psych affect normal Results Lab / Micro Data 03/06/23 04:05 03/06/23 04:05 Assessment & Plan Assessment/Plan (1) Acute kidney injury: (2) Intractable nausea and vomiting: (3) Metabolic encephalopathy: (4) Medical non-compliance: PLAN: Plan 1. Acute kidney injury; recurrent in the setting of intractable nausea and vomiting -Admit to PCU and start volume resuscitation with normal saline and then recheck BMP in the a.m. to ensure improvement. Check CT scan of the abdomen pelvis to assess for potential causes of his nausea and vomiting and also rule out any potential urinary obstruction. Hold KELSEY-inhibitor and avoid other potentially nephrotoxic agents. Finally, we will consult Dr. Carlson of the nephrology service to see this patient this admission for further recommendations with help appreciated in advance. 2. Metabolic encephalopathy likely due at least in part to abrupt withdrawal of all of his previous medications secondary to medical noncompliance and uncontrolled bipolar disorder complicating #1 - Head CT done at [place] ER was negative for acute pathologic changes. Urine drug screen to make sure patient is not positive for MDMA (ecstasy) this admission. Otherwise we will continue supportive care, restart appropriate medications and monitor for improvement. We will consult PT/OT and case management as this patient may need to transition to a facility as he seems to be unable to care for himself effectively at this time and the combination of his medical complexity and significant mental illness. 3. Mildly elevated troponins of 64 and 68 likely due to to #1 with diminished kidney function decreasing clearance - Patient denies chest pain, chest pressure or palpitations. Check echocardiogram to evaluate left ventricular ejection fraction with elevated BNP-T. 4. Recent admission here from 02/25/2023 to 02/28/2023 after being transferred from a local senior living to the ER with complaints of strokelike symptoms with confusion and fall with patient found to have severe acute kidney injury with a serum creatinine of 4.85 mg/dL and lithium toxicity with a level of 2.2 present on that admission located by clinical evidence of acute toxic/metabolic encephalopathy with his urine drug screen positive for MDMA (ecstasy) - Thankful ly, his lithium level this admission is down to 0.4. 5. Morbid obesity with a BMI of 42.7 this admission along with obstructive sleep apnea; with patient noncompliant with CPAP - Weight loss will be recommended. Normal TSH noted. 6. Essential hypertension - Restart amlodipine as previous. We will also give IV hydralazine as needed for systolic blood pressure greater than 160 mmHg. 7. Hyperlipidemia; with documented allergy to multiple statins on Zetia - Check lipid profile this admission. 8. Degenerative disc disease with osteoarthritis of the hips and knees causing him to ambulate with a cane - Stable. 9. DVT prophylaxis - Patient will be started on Lovenox 30 mg subcu daily for renal-adjusted dose in light of #1. Total time: Approximately 75 minutes. Charges/Coding Visit Charges Inpatient E&M: 23301 Init Hosp L3
--- NOTE | 2023-03-06 03:26 | ECHOCS_ITS ---
Reason For Study: CHF Procedure This was a 2D Doppler, Color Flow transthoracic echocardiogram. Contrast injection was performed. Exam performed portable in patient room. Left Ventricle Normal LV size. The estimated ejection fraction is 60 %. No evidence for diastolic dysfunction. No regional wall motion abnormalities noted. Right Ventricle Normal RV size. Normal systolic function. Atria Normal left atrium. Normal right atrium. No doppler evidence for ASD. Mitral Valve There is no mitral valve stenosis. No mitral valve insufficiency. Tricuspid Valve There is no tricuspid stenosis. Trivial tricuspid valve insufficiency. Pulmonary artery systolic pressure is 30 mmHg. Aortic Valve Trisinus/trileaflet aortic valve. There is no aortic stenosis. No aortic valve insufficiency. Pulmonic Valve There is no pulmonic valvular stenosis. Trivial pulmonic valve insufficiency. Great Vessels Normal aortic root. Pericardium/Pleural No pericardial effusion. Medication Diluted definity 3ml given slow IV push to enhance endocardial definition. MMode/2D Measurements & Calculations LVIDd: 5.9 cm IVSd: 1.4 cm Ao root diam: 3.9 cm LVIDs: 4.1 cm LVPWd: 1.6 cm RVDd: 4.4 cm FS: 30.4 % LAV(MOD-bp): 59.1 ml LA A4 area: 18.5 cm2 LA dimension(2D): 4.0 cm LAV(MOD-bp) Indexed: 23.5 ml/m2 LAV(MOD-sp2): 62.8 ml LAV(MOD-sp4): 49.3 ml TAPSE: 2.7 cm RA A4 area: 16.6 cm2 Time Measurements MV dec time: 0.24 sec Doppler Measurements & Calculations MV E max seng: 77.2 cm/sec Lat Peak E' Seng: 10.4 cm/sec Med Peak E' Seng: 8.8 cm/sec MV A max seng: 91.9 cm/sec E/E' lat: 7.4 E/E' med: 8.8 MV E/A: 0.84 MV dec slope: 319.4 cm/sec2 Ao V2 max: 181.4 cm/sec LV V1 max: 127.3 cm/sec Ao max P.2 mmHg LV V1 max P.5 mmHg Ao V2 mean: 140.8 cm/sec Ao mean P.4 mmHg Ao V2 VTI: 35.4 cm PA V2 max: 113.8 cm/sec TR max seng: 256.4 cm/sec TR max P.3 mmHg ECHO/Echo Complete W/ Contrast Interpretation Summary The estimated ejection fraction is 60 %. No evidence for diastolic dysfunction. Ordering Physician: Emery Paul Referring Physician: Jj Eason Performed By: Edelmira Garcia RDCS, RVT
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
[2023-03-06 04:18] LABS: Absolute Lymphocyte Count 2.72 X10^3/uL (0.83-4.51); Absolute Neutrophil Count 4.9 X10^3/uL (2.0-7.7); Basophil# 0.05 X10^3/uL; Basophil% 0.5 % (0-1); Eosinophil# 0.44 X10^3/uL; Eosinophils% 4.8 % (0-5); Hematocrit 35.1 % (40-54); Hemoglobin 11.3 g/dL (13.0-16.5); Lymphocyte # 2.72 X10^3/ul (0.83-4.51); Lymphocyte % 29.7 % (19-41); Mean Corp Hgb Conc 32.2 g/dL (32-36); Mean Corpuscular Hgb 30.2 pg (27.0-32.0); Mean Corpuscular Volume 93.9 fL (80-94); Mean Platelet Vol. 11.2 fl (6.2-12.0); Monocyte# 0.95 X10^3/uL; Monocyte% 10.4 % (0-10); NRBC Flagged by Analyzer 0 % (0-5); Neutrophil # 4.94 X10^3/uL (2.7-7.7); Neutrophil % 54.1 % (47-70); Platelet Count 269 K/mm3 (150-450); RBC Distribution Width CV 14.8 % (11.6-14.6); RBC Distribution Width SD 51.2 fl (35.1-43.9); Red Blood Count 3.74 M/mm3 (4.6-6.2); White Blood Count 9.2 K/mm3 (4.4-11.0)
[2023-03-06] MEDS: Acetaminophen 325 MG Tablet 650 MG PO ×2 (04:19→10:27)
[2023-03-06] MEDS: amLODIPine 5 MG Tablet PO ×2 (04:19→22:10)
[2023-03-06] MEDS: 0.9% Normal Saline (1000mL) 1,000 ML 125 ML IV (04:31)
[2023-03-06 04:37] VITALS: BP 159/93; PULSE 63; RESP 16; TEMP 36.8; O2SAT 94
[2023-03-06 04:59] LABS: ALB/GLOB Ratio 1.1 RATIO (0.9-2.4); AST(SGOT) 15 U/L (15-37); Alanine Aminotransfer ALT/SGPT 21 U/L (16-61); Albumin, Serum 3.1 g/dL (3.2-5.0); Alkaline Phosphatase 77 U/L (45-117); Anion Gap 6 (5-15); BUN 7 mg/dL (7-18); BUN/Creat Ratio 8.1 RATIO (10-20); Calcium,Total 8.4 mg/dL (8.5-10.1); Chloride 108 mmol/L (98-107); Cholesterol 168 mg/dL (200); Creatinine, Serum 0.86 mg/dL (0.70-1.30); EST Glomerular Filtration Rate 97 mL/min (>60); Est Glom Filt Rate - Afr Amer 117 mL/min (>60); Estimated Creatinine Clearance 97.85 ml/min; Globulin 2.9 g/dL (2.2-4.2); Glucose 104 mg/dL (74-106); High Density Lipoprotein 28 mg/dL; Potassium 3.2 mmol/L (3.5-5.1); Sodium Level 138 mmol/L (136-145); Triglycerides 155 mg/dL; Very Low Density Lipoprotein 31 mg/dL (5-40)
[2023-03-06 05:52] VITALS: BMI 44.5
[2023-03-06] MEDS: Heparin Injection (Vial) 5,000 UNIT/ML VIAL 5000 UNIT SC ×3 (06:14→22:08)
--- NOTE | 2023-03-06 07:52 | PCM.HOSP.N ---
Hospitalist Note 57-year-old male history of hypertension, morbid obesity, obstructive sleep apnea noncompliant with CPAP, bipolar disorder previously on lithium who presented from [place] [facility] due to elevated troponin and BNP as well as confusion, nausea, vomiting. He was recently admitted here from 02/25 to 02/28 after being transferred from local long term for severe CARLOS with creatinine of 4.8 and lithium toxicity with level of 2.2 complicated by tremors and acute toxic/metabolic encephalopathy. Reportedly at [place] he had an elevated BNP T of 1500 with troponin of 64 up to 68 and reportedly CARLOS with creatinine of 2.95 as well as some confusion. Patient was transferred to [facility] #Transferred for CARLOS?resolved -Reportedly creatinine was 2.95 at [facility] and it was suspected that patient was dehydrated due to nausea and vomiting -He was given fluids and his KELSEY was held and creatinine this a.m. was 0.86, will stop fluids given improvement and also the elevated BNP at outlying facility want to avoid fluid overload -Unclear if patient had rapid improvement or if there is lab error at outlying facility -He did have CT abdomen and pelvis upon presentation which showed mildly dilated right lower pole calyx and possibly small hypodense focus in anterior lower right kidney and recommended considering enhanced CT with renal protocol if indicated #Metabolic encephalopathy with hx of bipolar disorder -CT head in [place] [facility] negative -Suspected at least to be in part due to withdrawal of his medications -UDS pending -Reordered lithium level #Elevated troponin and BNP -Reportedly was 64 and then 68, suspect this was due to decreased clearance given reported creatinine of 2.95 -Patient did not have any chest pain, pressure, palpitations, do not suspect ACS -Suspect it was a proBNP that was elevated, will check BNP at our facility, hold further fluids given improvement in CARLOS, echocardiogram also ordered, daily weights, I's and O's #Morbid obesity -BMI 44.5 kg/m? -Complicates treatment, prognosis, outcomes -Recommend weight loss and lifestyle changes #Hypertension -Continue amlodipine #DVT ppx: Heparin subcu Malathi Victor MD Time spent in the patient's overall evaluation,decision-making process, review of diagnostic data, adjustment of management, discussion with other providers, nursing nursing and ancillary staff involved in patient's care documentation, 35 minutes
[2023-03-06 08:42] VITALS: BP 156/95; PULSE 64; RESP 16; TEMP 36.7; O2SAT 95
[2023-03-06] MEDS: Multivitamins,Therapeutic Tablet 1 TABLET PO (08:47)
[2023-03-06] MEDS: Carvedilol 6.25 MG Tablet PO ×2 (08:47→17:36)
[2023-03-06] MEDS: Tamsulosin HCl 0.4 MG Capsule PO (08:47)
[2023-03-06] MEDS: Potassium Chloride Oral Tablet 20 MEQ 40 MEQ PO (08:47)
[2023-03-06] MEDS: Ezetimibe 10 MG Tablet PO (08:48)
[2023-03-06] MEDS: Ascorbic Acid 500 MG Tablet 1000 MG PO (08:48)
[2023-03-06] MEDS: Cholecalciferol (VIT D3) 25 MCG TABLET (1,000 UNITS) 50 MCG PO (08:48)
[2023-03-06] MEDS: buPROPion (SR) 150 MG Tablet.SA PO ×2 (08:48→22:09)
[2023-03-06 09:19] LABS: BNP,B-Type NATRIURETIC PEPTIDE 144.8 pg/mL (0-100)
[2023-03-06 13:35] LABS: Magnesium 2.3 mg/dL (1.6-2.6)
[2023-03-06 15:39] VITALS: BP 146/92; PULSE 66; RESP 16; TEMP 37; O2SAT 94
[2023-03-06 17:33] VITALS: BP 159/93; PULSE 70
[2023-03-06 21:45] VITALS: BP 158/87; PULSE 64; RESP 16; TEMP 36.8; O2SAT 98
[2023-03-06] MEDS: lamoTRIgine 100 MG Tablet 400 MG PO (22:10)
[2023-03-06] MEDS: Gabapentin 800 MG Tablet PO (22:13)
[2023-03-07 03:15] VITALS: BP 149/89; PULSE 65; RESP 16; TEMP 36.6; O2SAT 98
[2023-03-07 04:56] VITALS: BMI 44.5
[2023-03-07] MEDS: Heparin Injection (Vial) 5,000 UNIT/ML VIAL 5000 UNIT SC (06:20)
[2023-03-07 07:03] LABS: Absolute Lymphocyte Count 2.54 X10^3/uL (0.83-4.51); Absolute Neutrophil Count 3.9 X10^3/uL (2.0-7.7); Basophil# 0.05 X10^3/uL; Basophil% 0.6 % (0-1); Eosinophil# 0.46 X10^3/uL; Hematocrit 38.9 % (40-54); Hemoglobin 12.1 g/dL (13.0-16.5); Lymphocyte # 2.54 X10^3/ul (0.83-4.51); Mean Corp Hgb Conc 31.1 g/dL (32-36); Mean Corpuscular Hgb 29.7 pg (27.0-32.0); Mean Corpuscular Volume 95.3 fL (80-94); Mean Platelet Vol. 11.4 fl (6.2-12.0); Monocyte% 9.1 % (0-10); NRBC Flagged by Analyzer 0 % (0-5); Neutrophil # 3.91 X10^3/uL (2.7-7.7); Neutrophil % 50.8 % (47-70); Platelet Count 283 K/mm3 (150-450); RBC Distribution Width CV 14.8 % (11.6-14.6); RBC Distribution Width SD 52.2 fl (35.1-43.9); Red Blood Count 4.08 M/mm3 (4.6-6.2); White Blood Count 7.7 K/mm3 (4.4-11.0)
[2023-03-07 07:56] LABS: Anion Gap 4 (5-15); BUN 6 mg/dL (7-18); BUN/Creat Ratio 7.3 RATIO (10-20); Calcium,Total 8.8 mg/dL (8.5-10.1); Chloride 111 mmol/L (98-107); Creatinine, Serum 0.82 mg/dL (0.70-1.30); EST Glomerular Filtration Rate 102 mL/min (>60); Est Glom Filt Rate - Afr Amer 124 mL/min (>60); Estimated Creatinine Clearance 102.63 ml/min; Glucose 98 mg/dL (74-106); Potassium 3.6 mmol/L (3.5-5.1); Sodium Level 140 mmol/L (136-145)
--- NOTE | 2023-03-07 09:54 | PCM.DC.SUM ---
Providers Date of Admission: 03/06/23 Date of Discharge: 03/07/23 Primary Care Physician: Dr. Jj Eason MD Reason For Visit: ACUTE KIDNEY INJURY WITH INTRACTABLE N/V Diagnosis Discharge Diagnosis (1) Acute kidney injury: Status: Acute Code(s): N17.9 - Acute kidney failure, unspecified (2) Intractable nausea and vomiting: Status: Acute Code(s): R11.2 - Nausea with vomiting, unspecified (3) Metabolic encephalopathy: Status: Acute Code(s): G93.41 - Metabolic encephalopathy (4) Medical non-compliance: Status: Acute Code(s): Z91.199 - Patient's noncompliance with other medical treatment and regimen due to unspecified reason Plan #Transferred for CARLOS?resolved #Metabolic encephalopathy with hx of bipolar disorder- encephalopathy resolved #Elevated troponin and BNP- secondary to CARLOS #Morbid obesity #Hypertension -Continue amlodipine Medications at Discharge Home Medications multivitamin (Daily Multi-Vitamin tablet) 1 tab PO DAILY supplement 12/01/19 lamotrigine 200 mg tablet 400 mg PO QHS skin 08/02/20 acetaminophen 500 mg capsule 500 mg PO Q6H PRN Pain 05/21/21 bupropion HCl 150 mg tablet,12 hr sustained-release (Wellbutrin SR) 150 mg PO BID depression 12/03/21 ascorbic acid (vitamin C) 500 mg tablet (Vitamin C) 1,000 mg PO DAILY vitamin 05/27/22 cholecalciferol (vitamin D3) 25 mcg (1,000 unit) chewable tablet (Vitamin D3) 2,000 unit PO DAILY vitamin 05/27/22 ramipril 10 mg capsule 10 mg PO QHS bp 05/27/22 tamsulosin 0.4 mg capsule 0.4 mg PO Q24H prostate 11/14/22 amlodipine 5 mg tablet 5 mg PO QHS blood pressure #90 tabs 11/25/22 ezetimibe 10 mg tablet (Zetia) 10 mg PO DAILY cholesterol #90 tabs 12/02/22 nystatin 100,000 unit/mL oral suspension 500,000 unit (5 mL) PO 4X/DAY skin #0 mL 01/21/23 gabapentin 800 mg tablet 800 mg PO QHS pain 02/25/23 carvedilol 6.25 mg tablet 6.25 mg PO BID 30 days #60 tabs 02/28/23 Hospital Course Summary of Care Provided Minutes Spent on Discharge: 32 Hospital Course: 57-year-old male history of hypertension, morbid obesity, obstructive sleep apnea noncompliant with CPAP, bipolar disorder previously on lithium who presented from [place] ER due to elevated troponin and BNP as well as confusion, nausea, vomiting. He was recently admitted here from 02/25 to 02/28 after being transferred from local senior living for severe CARLOS with creatinine of 4.8 and lithium toxicity with level of 2.2 complicated by tremors and acute toxic/metabolic encephalopathy. Reportedly at [place] he had an elevated BNP T of 1500 with troponin of 64 up to 68 and reportedly CARLOS with creatinine of 2.95 as well as some confusion. Patient was transferred to [facility]. Patient was given fluids and is KELSEY was held and creatinine in the morning was 0.86. He did have a CT scan of his abdomen on presentation which showed possibly small hypodense focus in anterior lower kidney and it can be can considered have a follow-up CT or MRI with renal protocol if indicated. Patient improved so rapidly that do not think this needs to be done on a hyperacute inpatient basis. Patient feeling much better and symptoms completely resolved by the morning and maintained that way even with reintroduction of medications. Discussed his lithium with him and he does not wish to go back on this and will follow-up with his psychiatrist. Discharge instructions as follows: -You indicated you do not wish to go back on the lithium so this will be held. -Continue your carvedilol, Wellbutrin, Lamictal, amlodipine, Zetia, gabapentin, and your tamsulosin -You can also continue your vitamin C, vitamin D, multivitamin, nystatin swish and swallow, and as needed Tylenol -Because you will not be going back on lithium and your kidney function is back to normal and you can resume your ramipril. Given your ramipril is being resumed would hold off on taking diclofenac and potassium supplementation until repeating blood work through your primary care physician's office and discussing risks and benefits with your primary care physician -Please follow-up with your psychiatrist upon discharge -Would recommend lab work (BMP) to check your potassium and kidney function in 2 to 3 days through your primary care physician's office. Please call their office upon discharge to obtain order for lab work. -You have had a small spot on your right lower kidney please follow-up with your primary care physician as you may need further imaging with a CT scan or MRI renal protocol -Please call your primary care provider's office upon discharge to schedule a hospital follow up within 1 week. -For any concerning signs or symptoms please call 911 or proceed to the nearest emergency department Physical Exam Narrative General: Alert, oriented, no apparent distress HEENT: Atraumatic, normocephalic Eyes: extraocular movements grossly intact Neck: Supple Respiratory: normal respiratory effort Cardiovascular: no edema appreciated GI: nondistended Extremities: Moving all extremities Neuro: No overt focal neurological deficits Psych: Cooperative Weight / BMI Weight Weight: 140.7 kg Body Mass Index (BMI) 44.5 ABG / Lab / Microbiology Data 03/07/23 06:15 03/07/23 06:15 Laboratory: Laboratory Results - last 24 hr 03/06/23 04:05: Magnesium 2.3 03/07/23 06:15: WBC 7.7, RBC 4.08 L, Hgb 12.1 L, Hct 38.9 L, MCV 95.3 H, MCH 29.7, MCHC 31.1 L, RDW Std Deviation 52.2 H, RDW Coeff of Héctor 14.8 H, Plt Count 283, MPV 11.4, Immature Gran % (Auto) 0.500, Neut % (Auto) 50.8, Lymph % (Auto) 33.0, [place] % (Auto) 9.1, Eos % (Auto) 6.0 H, Baso % (Auto) 0.6, Absolute Neuts (auto) 3.9, Absolute Lymphs (auto) 2.54, Nucleated RBC % 0, Sodium 140, Potassium 3.6, Chloride 111 H, Carbon Dioxide 25.0, Anion Gap 4 L, BUN 6 L, Creatinine 0.82, Estim Creat Clear Calc 102.63, Est GFR (MDRD) Af Amer 124, Est GFR (MDRD) Non-Af 102, BUN/Creatinine Ratio 7.3 L, Glucose 98, Calcium 8.8 Radiography Diagnostic Testing: Radiology Impression Echocardiogram 03/06/23 03:26 Interpretation Summary The estimated ejection fraction is 60 %. No evidence for diastolic dysfunction. Ordering Physician: Emery Paul Referring Physician: Jj Eason Performed By: Edelmira Garcia RDCS, RVT D/C Instructions Discharge Diet: No restrictions Meaningful Use Info Meaningful Use Diagnoses (Choose all that apply): None applicable Discharge Plan Admission Admit Date/Time: 03/06/23 03:22 Primary Reason for Your Visit: Confusion and kidney dysfunction Attending Provider: Malathi Victor Primary Care Provider: Jj Eason Consulting Providers: Emery Paul Instructions Patient Instructions: Acute Kidney Failure Dc Additional Instructions / Restrictions: DISCHARGE INSTRUCTIONS PLEASE READ *Please take this with you to your next doctors appointment* -You indicated you do not wish to go back on the lithium so this will be held. -Continue your carvedilol, Wellbutrin, Lamictal, amlodipine, Zetia, gabapentin, and your tamsulosin -You can also continue your vitamin C, vitamin D, multivitamin, nystatin swish and swallow, and as needed Tylenol -Because you will not be going back on lithium and your kidney function is back to normal and you can resume your ramipril. Given your ramipril is being resumed would hold off on taking diclofenac and potassium supplementation until repeating blood work through your primary care physician's office and discussing risks and benefits with your primary care physician -Please follow-up with your psychiatrist upon discharge -Would recommend lab work (BMP) to check your potassium and kidney function in 2 to 3 days through your primary care physician's office. Please call their office upon discharge to obtain order for lab work. -You have had a small spot on your right lower kidney please follow-up with your primary care physician as you may need further imaging with a CT scan or MRI renal protocol -Please call your primary care provider's office upon discharge to schedule a hospital follow up within 1 week. -For any concerning signs or symptoms please call 911 or proceed to the nearest emergency department Discharge Orders/Prescriptions Prescriptions: Continued multivitamin [Daily Multi-Vitamin] Tablet 1 tab PO DAILY Hold Instructions: Order Changed lamotrigine 200 mg tablet 400 mg PO QHS acetaminophen 500 mg capsule 500 mg PO Q6H PRN (Reason: Pain) bupropion HCl [Wellbutrin SR] 150 mg tablet sustained-release 12 hr 150 mg PO BID tamsulosin 0.4 mg capsule 0.4 mg PO Q24H Patient Comments: TAKE 1 CAPSULE BY MOUTH BEFORE BEDTIME ascorbic acid (vitamin C) [Vitamin C] 500 mg Tablet 1,000 mg PO DAILY Hold Instructions: Order Changed ramipril 10 mg Capsule 10 mg PO QHS Hold Instructions: Hold for 5 DAYS cholecalciferol (vitamin D3) [Vitamin D3] 25 mcg (1,000 unit) tablet,chewable 2,000 unit PO DAILY Hold Instructions: Order Changed nystatin 100,000 unit/mL Suspension 500,000 unit PO 4X/DAY Qty: 0 0RF Hold Instructions: Order Changed gabapentin 800 mg tablet 800 mg PO QHS carvedilol 6.25 mg Tablet 6.25 mg PO BID 30 Days Qty: 60 0RF Rx Instructions: Hold for 4 DAYS amlodipine 5 mg tablet 5 mg PO QHS Qty: 90 3RF Hold Instructions: Hold for SBP less than 130 mmHg ezetimibe [Zetia] 10 mg tablet 10 mg PO DAILY Qty: 90 3RF Discontinued lithium carbonate 300 mg capsule 300 mg PO DAILY Hold Instructions: Hold for 4 DAYS diclofenac sodium 75 mg tablet,delayed release (DR/EC) 75 mg PO BID Hold Instructions: Hold for 7 days and check with PCP lithium carbonate 300 mg Capsule 300 mg PO QHS Qty: 0 0RF Hold Instructions: Hold for 4 DAYS potassium chloride [Klor-Con M20] 20 mEq Tablet,Er Particles/Crystals 40 meq PO DAILY 3 Days Qty: 6 0RF Referrals / Follow Up: Jj Eason MD [Primary Care Provider] - Within 1 Week Disposition Disposition (needs filled in before D/C Order can be placed): Home, Self Care Charges/Coding Visit Charges Inpatient E&M: 58431 Disch Hosp >30min
--- NOTE | 2023-03-07 09:57 | DCINST_ITS ---
Discharge Instructions Diet Discharge Diet: No restrictions Follow Up Care Test Results: Test results from this visit will be discussed in further detail at your follow- up appointment, if applicable. Discharge Plan Admission Admit Date/Time: 03/06/23 03:22 Primary Reason for Your Visit: Confusion and kidney dysfunction Attending Provider: Malathi Victor Primary Care Provider: Jj Eason Consulting Providers: Emery Paul Instructions Patient Instructions: Acute Kidney Failure Dc Additional Instructions / Restrictions: DISCHARGE INSTRUCTIONS PLEASE READ *Please take this with you to your next doctors appointment* -You indicated you do not wish to go back on the lithium so this will be held. -Continue your carvedilol, Wellbutrin, Lamictal, amlodipine, Zetia, gabapentin, and your tamsulosin -You can also continue your vitamin C, vitamin D, multivitamin, nystatin swish and swallow, and as needed Tylenol -Because you will not be going back on lithium and your kidney function is back to normal and you can resume your ramipril. Given your ramipril is being resumed would hold off on taking diclofenac and potassium supplementation until repeating blood work through your primary care physician's office and discussing risks and benefits with your primary care physician -Please follow-up with your psychiatrist upon discharge -Would recommend lab work (BMP) to check your potassium and kidney function in 2 to 3 days through your primary care physician's office. Please call their of fice upon discharge to obtain order for lab work. -You have had a small spot on your right lower kidney please follow-up with your primary care physician as you may need further imaging with a CT scan or MRI renal protocol -Please call your primary care provider's office upon discharge to schedule a hospital follow up within 1 week. -For any concerning signs or symptoms please call 911 or proceed to the nearest emergency department Discharge Orders/Prescriptions Prescriptions: Continued multivitamin [Daily Multi-Vitamin] Tablet 1 tab PO DAILY Hold Instructions: Order Changed lamotrigine 200 mg tablet 400 mg PO QHS acetaminophen 500 mg capsule 500 mg PO Q6H PRN (Reason: Pain) bupropion HCl [Wellbutrin SR] 150 mg tablet sustained-release 12 hr 150 mg PO BID tamsulosin 0.4 mg capsule 0.4 mg PO Q24H Patient Comments: TAKE 1 CAPSULE BY MOUTH BEFORE BEDTIME ascorbic acid (vitamin C) [Vitamin C] 500 mg Tablet 1,000 mg PO DAILY Hold Instructions: Order Changed ramipril 10 mg Capsule 10 mg PO QHS Hold Instructions: Hold for 5 DAYS cholecalciferol (vitamin D3) [Vitamin D3] 25 mcg (1,000 unit) tablet,chewable 2,000 unit PO DAILY Hold Instructions: Order Changed nystatin 100,000 unit/mL Suspension 500,000 unit PO 4X/DAY Qty: 0 0RF Hold Instructions: Order Changed gabapentin 800 mg tablet 800 mg PO QHS carvedilol 6.25 mg Tablet 6.25 mg PO BID 30 Days Qty: 60 0RF Rx Instructions: Hold for 4 DAYS amlodipine 5 mg tablet 5 mg PO QHS Qty: 90 3RF Hold Instructions: Hold for SBP less than 130 mmHg ezetimibe [Zetia] 10 mg tablet 10 mg PO DAILY Qty: 90 3RF Discontinued lithium carbonate 300 mg capsule 300 mg PO DAILY Hold Instructions: Hold for 4 DAYS diclofenac sodium 75 mg tablet,delayed release (DR/EC) 75 mg PO BID Hold Instructions: Hold for 7 days and check with PCP lithium carbonate 300 mg Capsule 300 mg PO QHS Qty: 0 0RF Hold Instructions: Hold for 4 DAYS potassium chloride [Klor-Con M20] 20 mEq Tablet,Er Particles/Crystals 40 meq PO DAILY 3 Days Qty: 6 0RF Referrals / Follow Up: Jj Eason MD [Primary Care Provider] - Within 1 Week Disposition Disposition (needs filled in before D/C Order can be placed): Home, Self Care
[2023-03-07 10:00] VITALS: BP 160/103; PULSE 69; RESP 18; TEMP 36.6; O2SAT 97
[2023-03-07] MEDS: Cholecalciferol (VIT D3) 25 MCG TABLET (1,000 UNITS) 50 MCG PO (10:22)
[2023-03-07] MEDS: Multivitamins,Therapeutic Tablet 1 TABLET PO (10:22)
[2023-03-07] MEDS: buPROPion (SR) 150 MG Tablet.SA PO (10:22)
[2023-03-07] MEDS: Carvedilol 6.25 MG Tablet PO (10:22)
[2023-03-07] MEDS: Tamsulosin HCl 0.4 MG Capsule PO (10:23)
[2023-03-07] MEDS: Ezetimibe 10 MG Tablet PO (10:23)
[2023-03-07] MEDS: Ascorbic Acid 500 MG Tablet 1000 MG PO (10:23)
[2023-03-07] MEDS: NYSTATIN 500,000 UNIT/5 ML UDC 500000 UNIT PO (10:24)
--- NOTE | 2023-03-07 12:08 | CASEMGMT ---
BRODERICK MORGAN Chart Review Index Admission Dates:02/25/23-02/28/23 Index Diagnosis: CARLOS likely due to lithium tox Index DC Disposition:Home Current Diagnosis:CARLOS with intractable N/V Pt admitted prior hospital stay from [facility] alf with Cr 4.8 and lithium 2.2 complicated by tremors and acute toxic metabolic encephalopathy. Pt was agreeable to [facility] but needed to see PCP first for him to follow [facility]. Pt was dc'd home as he did not need to report back to alf with follow up labs and pcp in 5 days. Pt to see nephro in 2wks and psychiatrist in 1 wk. Pt with new medications of potassium and coreg. Pt then was in [place] ER for for Cr of 2.95 but resolved when trf to [facility]. Unknown if this was lab error or if pt had rapid improvement. Pt also had elevated troponin and BNP. Labs ordered at [facility] as well as echo. 6 clicks=17, therapy ordered. BRODERICK MORGAN into pt room, pt states he has not seen his PCP yet as it is scheduled for next week. Pt has not seen psychiatrist or nephro but reports these appts are scheduled. Pt reports not taking medications as ordered d/t N/V. Pt states he did ok at home as far as strength and denies any concerns with returning home again. Pt does discuss dissatisfaction with meals at [facility] as well as concerns regarding returning back to alf. He is interested in speaking with SW. Notified SW. Pt denies any homegoing needs. Plan for dc today. Pt to follow up with PCP and will decide at that time if he feels he needs HH. DC Plan: Home
[2023-03-07 13:13] VITALS: BP 157/93; PULSE 74; RESP 18; TEMP 36.2; O2SAT 97
== END 2023-03-07 15:36 | disposition home or self-care (01) | DRG 682 ==
PROVIDERS: Admitting Provider Internal Medicine; PCP Family Medicine; Visit Provider Internal Medicine
DX: N17.9 Acute kidney failure, unspecified (principal); F19.230 Other psychoactive substance dependence with withdrawal, uncomplicated; F31.9 Bipolar disorder, unspecified; Z68.41 Body mass index [BMI] 40.0-44.9, adult; E66.01 Morbid (severe) obesity due to excess calories; G93.41 Metabolic encephalopathy; I10 Essential (primary) hypertension; R11.2 Nausea with vomiting, unspecified; E78.00 Pure hypercholesterolemia, unspecified; M17.0 Bilateral primary osteoarthritis of knee; M16.0 Bilateral primary osteoarthritis of hip; G47.33 Obstructive sleep apnea (adult) (pediatric); Z91.199 Patient's noncompliance with other medical treatment and regimen due to unspecified reason; G89.29 Other chronic pain; Z79.899 Other long term (current) drug therapy; Z96.642 Presence of left artificial hip joint
CPT/HCPCS: 36415; 74176; 80048; 80053; 80061; 80178; 83735; 83880; 85025; 93306; 96360; 96361; 96372; 99221; J7030; Q9957; C8929; G0378; G0379

== ENCOUNTER → 2023-03-12 | Outpatient (CLI) | payer MEDICARE, SELFPAY ==
[2023-03-12 17:44] LABS: Absolute Neutrophil Count 5.7 X10^3/uL (2.0-7.7); Basophil# 0.09 X10^3/uL; Eosinophil# 0.35 X10^3/uL; Lymphocyte % 21.6 % (19-41); Mean Corp Hgb Conc 30.6 g/dL (32-36); Mean Corpuscular Hgb 29.8 pg (27.0-32.0); Mean Corpuscular Volume 97.6 fL (80-94); Mean Platelet Vol. 11.5 fl (6.2-12.0); Monocyte# 0.68 X10^3/uL; Monocyte% 7.7 % (0-10); NRBC Flagged by Analyzer 0 % (0-5); Neutrophil # 5.74 X10^3/uL (2.7-7.7); Neutrophil % 65.2 % (47-70); Platelet Count 289 K/mm3 (150-450); RBC Distribution Width CV 15.2 % (11.6-14.6); RBC Distribution Width SD 55.1 fl (35.1-43.9); Red Blood Count 3.69 M/mm3 (4.6-6.2); White Blood Count 8.8 K/mm3 (4.4-11.0)
[2023-03-12 18:21] LABS: BNP,B-Type NATRIURETIC PEPTIDE 88.1 pg/mL (0-100)
[2023-03-12 18:27] LABS: AST(SGOT) 18 U/L (15-37); Alanine Aminotransfer ALT/SGPT 34 U/L (16-61); Albumin, Serum 3.3 g/dL (3.2-5.0); Alkaline Phosphatase 84 U/L (45-117); Anion Gap 6 (5-15); BUN 10 mg/dL (7-18); BUN/Creat Ratio 10.5 RATIO (10-20); Calcium,Total 8.8 mg/dL (8.5-10.1); Chloride 108 mmol/L (98-107); Creatinine, Serum 0.95 mg/dL (0.70-1.30); EST Glomerular Filtration Rate 87 mL/min (>60); Est Glom Filt Rate - Afr Amer 105 mL/min (>60); Globulin 3.2 g/dL (2.2-4.2); Glucose 97 mg/dL (74-106); Potassium 4.3 mmol/L (3.5-5.1); Protein, Total 6.5 g/dL (6.4-8.2); Sodium Level 141 mmol/L (136-145); Thyroid Stim Hormone (TSH) 1.51 uIU/mL (0.358-3.74)
== END | disposition home or self-care (01) ==
LOC: MFPLAB 16:13
PROVIDERS: PCP Family Medicine; Visit Provider Family Medicine
DX: R06.09 Other forms of dyspnea (principal); I42.2 Other hypertrophic cardiomyopathy
CPT/HCPCS: 36415; 80053; 83880; 84443; 85025

== ENCOUNTER → 2023-06-11 | Outpatient (CLI) | payer MEDICARE, SELFPAY ==
--- NOTE | 2023-06-11 15:41 | MRI_ITS ---
STUDY: MRI CERVICAL SPINE REASON FOR EXAM: Male, 58 years old. Neck pain with balance issues to r/o myelopathy TECHNIQUE: MRI examination of the cervical spine obtained with standard protocol including multiplanar multiecho Noncontrast imaging. Contrast: No contrast administered COMPARISON: Plain film examination of 05/01/2023. FINDINGS: Vertebral bodies and alignment: 1. Vertebral body height is maintained. There is straightening and mild reversal cervical lordosis. No marrow edema or occult fracture. No destructive marrow replacement process. 2. Extensive posterior ossification extending from C2 to C6. This appears to represent ossification posterior longitudinal ligament.. 3. Prevertebral soft tissue planes have normal appearance. 4. Normal appearance the odontoid process and alignment of the craniocervical junction. 5. Normal appearance the posterior muscular fascial planes of the cervical spine, and the posterior ligamentous support structure the cervical spine is intact. Intervertebral disc levels: C2-3: No evidence of disc herniation however extensive posterior ossification is present which appears represent ossification posterior longitudinal ligament. There is deformity of the thecal sac at, narrowing to approximately 6 mm. Neural foramina appear patent. C3-4: No evidence of disc herniation however bulky posterior osteophyte is noted, narrowing of the central canal due to the bulky ossification to approximately 5 mm. There is cord contact and mild cord flattening. The neural foramina are widely patent. C4-5: No evidence of disc herniation or canal stenosis. Large posterior osteophyte is present with deformity of the anterior epidural space, central canal is narrowed to approximately 5 to 6 mm. There is displacement of the cord. Mild narrowing of the LEFT neural foramen. C5-6: No disc herniation noted however bulky posterior osteophytes greater on the LEFT than RIGHT. Central canal is maintained at approximately 8 mm. There is compression of LEFT lateral recess due to osteophyte formation. C6-7: Broad-based posterior disc bulge and deformity of the anterior epidural space, thecal sac maintained at 9 mm. No cord compression. There is narrowing of the LEFT neural foramen and osteophyte formation. C7-T1: Minimal posterior osteophyte formation, no disc herniation canal or foraminal stenosis. Spinal CORD: There is is diffusely narrow canal contributed by bulky osteophyte formation associated with posterior longitudinal ligament. There is effacement of CSF space, mild displacement of the cord without evidence of acute cord edema or hemorrhage. No syrinx noted. Normal appearance of the cervical medullary junction. MRI/Spine Cervical (Routine) IMPRESSION: 1. Extensive flowing ossification along the posterior aspect of vertebral bodies extending from C2 to the level of C6. There is diffuse canal stenosis, and findings consistent with ossification of the posterior longitudinal ligament. 2. Effacement of the CSF space without evidence of rhona cord compression or cord edema. 3. Mild multilevel foraminal narrowing particularly on the LEFT due to osteophyte formation. Electronically Signed: Buster Dawkins MD at 22:54 EST ,
== END | disposition home or self-care (01) ==
LOC: MRI 15:35
PROVIDERS: PCP Family Medicine; Referring Provider Orthopaedic Surgery Orthopaedic Surgery of the Spine; Visit Provider Orthopaedic Surgery Orthopaedic Surgery of the Spine
DX: M54.2 Cervicalgia (principal)
CPT/HCPCS: 72141

== ENCOUNTER → 2023-07-07 | Outpatient (CLI) | payer MEDICARE, SELFPAY ==
--- NOTE | 2023-07-07 15:28 | MRI_ITS ---
EXAM: MR RIGHT UPPER EXTREMITY WITHOUT INTRAVENOUS CONTRAST, SHOULDER CLINICAL INDICATION: templating for right shoulder replacement TECHNIQUE: Multiplanar and multisequence MR images of the right shoulder without intravenous contrast. COMPARISON: Same-day CT upper extremity. FINDINGS: TENDONS: SUPRASPINATUS: Difficult to evaluate due to motion artifact on the axial images. INFRASPINATUS: Unremarkable. Intact. SUBSCAPULARIS: Unremarkable. Intact. TERES MINOR: Unremarkable. Intact. BICEPS BRACHII, LONG HEAD: Long head biceps tendon is mildly thickened at the level of the jose but there is no definite tear or displacement. The extra-articular biceps tendon is in the bicipital groove. LIGAMENTS: GLENOHUMERAL: Unremarkable. Intact. MUSCLES: Unremarkable. No rotator cuff muscle atrophy. FLUID: At least moderate glenohumeral joint effusion with synovitis and with large intra-articular ossific body or bodies within the subcoracoid recess. No subacromial-subdeltoid space bursal fluid. CARTILAGE: Unremarkable. Articular cartilage intact. GLENOID LABRUM: Signal and morphologic abnormalities are seen at the base of superior labrum concerning for a labral tear. BONES/JOINTS: Pnevarrj-wp-cbjird hypertrophic degenerative changes of the acromioclavicular joint with moderate mass effect on the underlying soft tissues. Small cystic changes at the posterior lateral humeral head appear to be benign. Type I acromion with flat undersurface. No subacromial enthesophyte or os acromiale. Severe glenohumeral joint degenerative changes with [id number] articulation. OTHER SOFT TISSUES: Unremarkable. No rotator interval edema. MRI/Upper Ext Joint Only(Routine) IMPRESSION: 1. Xwnyuyru-lw-kwlytn hypertrophic degenerative changes of the acromioclavicular joint with moderate mass effect on the underlying soft tissues. 2. Superior labral tear suspected. 3. At least moderate glenohumeral joint effusion with synovitis and with large intra-articular ossific body or bodies within the subcoracoid recess. 4. Severe glenohumeral joint degenerative changes with uvme-to-iyit articulation. Electronically Signed: Husam Haywood MD at 16:23 EDT ,
--- NOTE | 2023-07-07 15:56 | CT_ITS ---
STUDY: CT CERVICAL SPINE WITHOUT CONTRAST REASON FOR EXAM: Male, 58 years old. Pain RADIATION DOSAGE (If Supplied By Facility): CTDIvol = ( 29.46 ) mGy, DLP = ( 594.16 ) mGycm TECHNIQUE: High resolution transaxial imaging was performed without contrast material. Sagittal and coronal images were reconstructed. Individualized dose optimization techniques were used for this CT.
--- NOTE | 2023-07-07 15:56 | CT_ITS ---
STUDY: CT RIGHT SHOULDER REASON FOR EXAM: Male, 58 years old. Templating for right shoulder replacement. RADIATION DOSAGE (If Supplied By Facility): CTDIvol = ( 74.62 ) mGy, DLP = ( 1873.51 ) mGycm TECHNIQUE: The patient was scanned in a multi detector CT scanner. High resolution transaxial imaging was performed without the administration of intravenous contrast material. Sagittal and coronal images were reconstructed. Individualized dose optimization techniques were used for this CT. COMPARISON: None. FINDINGS: There is severe degenerative arthrosis of the right glenohumeral joint with [id number]-uw-tzjf, marginal osteophyte formation, and areas of subchondral sclerosis/cyst formation. There is a large ossified loose body in the subscapularis recess, overall measuring 4.3 cm AP, 2.7 cm transverse, and 3.1 cm craniocaudad. Intact glenoid rim, neck and visualized scapula. Intact humeral head, neck and tuberosities. Normal coracoid process. Normal visualized lateral clavicle. There is hypertrophic acromioclavicular arthrosis, with inferior osteophyte formation, with mild effacement of the supraspinatus myotendinous junction. There is a Type II morphology (curved), with a neutral orientation. Normal visualized muscles and soft tissue structures. CT/Extremity Upper without Contra IMPRESSION: Severe glenohumeral arthrosis. 4.3 x 2.7 x 3.1 cm ossified loose body in the subscapularis recess. Hypertrophic acromioclavicular arthrosis, with inferior osteophyte formation, with mild effacement of the supraspinatus myotendinous junction. Electronically Signed: Nhan Jeter MD at 14:57 EDT ,
--- OUTSIDE RECORDS SUMMARY | 2023-07-08 01:23 | XMS RPT_ITS | CCD ---
Author Name Unknown Address [address] [place] [address] Organization [facility] Care Team Providers Care Director Of Gift Planning Name Role Phone Deep, Ahmad Firas Unavailable Unavailable Deep, Ahmad Firas Unavailable Unavailable Stone Rodarte Unavailable Unavailable Sokari, Telemate Unavailable Unavailable Sokari, Telemate Unavailable Unavailable NO, PHYSICIAN Primary Care Unavailable OSKAR CHARLES Attending Unav ailable TAVOSKAR LUGO Attending Unav ailable NO, PHYSICIAN Primary Care Unavailable No, Physician Primary Care Provider Unavailabl e No, Physician Primary Care Provider Unavailabl e NO, PHYSICIAN Primary Care Unavailable AUSTIN BRIDGES Referring Unavailable AUSTIN BRIDGES Admitting Unavailable AUSTIN BRIDGES Attending Unavailable NO, PHYSICIAN Primary Care Unavailable BRIDGESAUSTIN CALHOUN Attending Unavailable NO, PHYSICIAN Primary Care Unavailable NO, PHYSICIAN Primary Care Unavailable BRIDGESAUTSIN CALHOUN Referring Unavailable AUSTIN BRIDGES Admitting Unavailable NO, PHYSICIAN Primary Care Unavailable AUSTIN BRIDGES Attending Unavailable AUSTIN BRIDGES Referring Unavailable BRIDGESAUSTIN Admitting Unavailable NO, PHYSICIAN Primary Care Unavailable BRIDGESAUSTIN CALHOUN Attending Unavailable NO, PHYSICIAN Primary Care Unavailable BRIDGESAUSTIN Referring Unavailable BRIDGESAUSTIN Admitting Unavailable NO, PHYSICIAN Primary Care Unavailable NO, PHYSICIAN Primary Care Unavailable AUSTIN BRIDGES Attending Unavailable Janay Eason Unavailable PROVIDER, UNKNOWN Attending Unavailable PROVIDER, UNKNOWN Admitting Unavailable Janay Eason MD Primary Care Provider [phone] LENIN PIZARRO Attending Unavailable SAVANAH ANDERSON Referring Unavailable JANAY EASON Primary Care Unavailable JANAY EASON Primary Care Unavailable JANAY EASON Primary Care Unavailable DACIA TOBIAS Attending Unavailable AAMIR GASCA Attending Unavailable AAMIR GASCA Admitting Unavailable JANAY EASON Primary Care Unavailable Janay Eason MD Primary Care Provider Allergies Allergy Classification Reported Allergen(s) Allergy Type Date of Onset Reaction(s) Facility HMG-CoA Reductase Inhibitors (statins) (4 sources) atorvastatin; Translations: [ATORVASTATIN] Drug Allergy 9 [facility] NSAIDs (4 sources) meloxicam; Translations: [TOLMETIN] Drug Allergy 6 Shortness Of Breath [facility] Opioid Agonists (2 sources) traMADol; Translations: [TRAMADOL] Drug Allergy 7 Other (See Comments) [facility] Penicillins (antibiotic) (2 sources) Penicillins; Translations: [PENICILLINS] Drug Allergy 6 Other (See Comments), Unknown [facility] (5 sources) Penicillins; Translations: [penicillins] Propensity to adverse reactions to drug (disorder) 6 Other (See Comments), Unknown [facility] Repository (6 sources) meloxicam; Translations: [MELOXICAM] Drug Allergy 0 Intolerance [facility] (8 sources) Tolmetin; Translations: [TOLMETIN] Drug Allergy 6 Shortness Of Breath [facility] (7 sources) traMADol; Translations: [TRAMADOL] Drug Allergy 7 Other (See Comments), Other: See Comments [facility] (2 sources) atorvastatin Drug Allergy 9 [facility] (2 sources) Pravastatin Drug Allergy 9 [facility] (4 sources) Penicillin; Translations: [PENICILLIN] Drug Allergy 6 Unknown [facility] (1 source) ALLERGIES NOT ON FILE; Translations: [ALLERGIES NOT ON FILE] Propensity to adverse reactions (disorder) [facility] Medications Current Medications Medication Drug Class(es) Dates Sig (Normalized) Sig (Original) acetaminophen 325 mg oral tablet (4 sources) take 2 tablets by mouth every six hours as needed acetaminophen (TYLENOL) 325 MG tablet Take 650 mg by mouth every 6 (six) hours as needed for pain . 0 Active cholecalciferol, vitamin D3, (VITAMIN D3 ORAL) (3 sources) cholecalciferol, vitamin D3, (VITAMIN D3 ORAL) Take by mouth . 0 Active 0.4 ml enoxaparin sodium 100 mg/ml prefilled syringe (4 sources) Low Molecular Weight Heparin enoxaparin (LOVENOX) 40 mg/0.4 mL Syrg Inject 40 mg under the skin 2 (two) times a day . 0 Active Famotidine (3 sources) Histamine-2 Receptor Antagonist FAMOTIDINE ORAL Take by mouth . 0 Active hydroCHLOROthiazide 25 mg oral tablet (5 sources) Thiazide Diuretic Start: 6 hydroCHLOROthiazide (HYDRODIURIL) 25 MG tablet Completed/Discontinued Medications Medication Drug Class(es) Dates Sig (Normalized) Sig (Original) Acetaminophen / HYDROcodone (1 source) Opioid Agonist HYDROCODONE/ACET AMINOP HEN (VICODIN ORAL) Take by mouth as needed. 0 Active Problems Active Problems Problem Classification Problem Date Documented Date Episodic/Chronic Administrative/socia l admission (5 sources) Other reduced mobility; Translations: [Impaired functional mobility, balance, gait, and endurance] Episodic Blindness and vision defects (1 source) Functional visual field loss; Translations: [Unspecified visual field defects] Episodic Disorders of lipid metabolism (2 sources) Hyperlipidemia; Translations: [Hyperlipidemia, unspecified] Onset: 05-08-2016 05-08-2016 Chronic Esophageal disorders (2 sources) Gastroesophageal reflux disease without esophagitis; Translations: [Gastro-esophageal reflux disease without esophagitis] Onset: 05-08-2016 05-08-2016 Chronic Essential hypertension (4 sources) Essential hypertension; Translations: [Essential (primary) hypertension] Onset: 05-08-2016 05-08-2016 Chronic Fracture of lower limb (3 sources) Closed fracture of ankle; Translations: [Other fracture of right lower leg, subsequent encounter for closed fracture with routine healing] Episodic Mood disorders (2 sources) Bipolar disorder, most recent episode depression; Translations: [Bipolar disorder, unspecified] Onset: 05-08-2016 05-08-2016 Chronic Nutritional deficiencies (1 source) Undernutrition; Translations: [Mild protein-calorie malnutrition] Onset: 01-23-2023 01-30-2023 Chronic Osteoarthritis (20 sources) Bilateral osteoarthritis of knees; Translations: [Osteoarthrosis, unspecified whether generalized or localized, lower leg] Chronic Other aftercare (1 source) Encounter for other specified aftercare; Translations: [Aftercare] Onset: 01-21-2023 Episodic Other and ill-defined heart disease (2 sources) Heart disease; Translations: [Heart disease, unspecified] 04-22-2016 Chronic Other connective tissue disease (5 sources) Pain in lower limb; Translations: [Pain in limb] Episodic Other screening for suspected conditions (not mental disorders or infectious disease) (1 source) Other specified abnormal findings of blood chemistry; Translations: [Elevated troponin] Onset: 03-05-2023 Episodic Residual codes; unclassified (2 sources) Obstructive sleep apnea syndrome; Translations: [Obstructive sleep apnea (adult) (pediatric)] Onset: 05-08-2016 05-08-2016 Chronic Residual codes; unclassified (9 sources) H/O: fracture; Translations: [Other postprocedural status] Episodic Residual codes; unclassified (1 source) Disorientation, unspecified; Translations: [Confusion] Onset: 03-05-2023 Episodic Residual codes; unclassified (1 source) Edema, unspecified; Translations: [Peripheral edema] Onset: 03-05-2023 Episodic Spondylosis; intervertebral disc disorders; other back problems (5 sources) Lumbar spondylosis; Translations: [Lumbosacral spondylosis without myelopathy] Chronic Past or Other Problems Problem Classification Problem Date Documented Da te Episodic/Chronic Other aftercare (1 source) Follow-up status; Translations: [Encounter for other specified aftercare] Onset: 01-21-2023 01-30-2023 Episodic Other non-traumatic joint disorders (2 sources) Multiple joint pain; Translations: [Pain in unspecified joint] Onset: 05-08-2016 05-08-2016 Episodic Results Test Name Value Interpretation Reference Range Facil ity Encounters Encounter Date Encounter Type Care Provider Facility Start: 06-18-2023 Chart abstracting Unk Pcp (Hist) Patricia trivedi Start: 03-09-2023 End: 03-10-[address] [facility] Start: 03-05-2023 End: 03-06-2023 Emergency department patient visit [facility] Facility:[facility] Start: 01-21-2023 End: 01-30-2023 Evaluation and management of inpatient AAMIR GASCA Facility:[facility] Start: 02-25-2022 End: 02-25-2022 ambulatory LENIN PIZARRO Facility:[facility] Start: 02-25-2022 End: 02-25-2022 Patient encounter procedure Lenin iPzarro DO Work Phone: Ophthalmology Procedures Date Procedure Procedure Detail Performing Clinician Start: 03-09-2023 RENAL FUNCTION PANEL ER LÓPEZ EASON Start: 02-25-2022 End: 02-25-2022 Visual field xm uni/bi w/interp extended exam Lenin Russell Ximena DO Work Phone: Start: 12-05-2021 Lipid 1996 panel - S vinicius or Plasma Unk (Hist) Plan of Treatment Date Care Activity Detail Author Start: 12-05-2026 Lipid panel Lipid Screening [facility] Start: 03-05-2026 Diabetes Screening Diabetes Screening [facility] Start: 04-27-2023 Depression Assessment Depression Assessment [facility] Start: 12-26-2022 Covid-19 Vaccine () Covid-19 Vaccine () [facility] Start: 12-26-2022 Influenza vaccination Influenza Vaccine (#1) [facility] Start: 12-26-2021 Influenza vaccination INFLUENZA (#1) [facility] Start: 10-11-2021 PENG, Provider: Melvi Zamora, Status: Pen, Time: 10:15 AM HOWIEADHELGA, Provider: Melvi Zamora, Status: Pen, Time: 10:[address] [facility] Work Phone: Start: 10-11-2021 [id number], Provider: Seda Mercado, Status: Pen, Time: 9:15 AM [id number], Provider: Seda Mercado, Status: Pen, Time: 9:[address] [facility] Work Phone: Start: 10-04-2021 [email or web address], Provider: Eloina Ashton, Status: Pen, Time: 2:00 PM [id number], Provider: Eloina Ashton, Status: Pen, Time: 2:[address] [facility] Work Phone: Start: 09-27-2021 [email or web address], Provider: Seda Mercado, Status: Pen, Time: 10:00 AM [email or web address], Provider: Seda Mercado, Status: Pen, Time: 10:[address] [facility] Work Phone: Start: 09-10-2021 [id number], Provider: Melvi Zamora, Status: Pen, Time: 3:45 PM [id number], Provider: Melvi Zamora, Status: Pen, Time: 3:[address] [facility] Work Phone: Start: 07-23-2021 COVID-19 VACCINE (4 - Booster for Pfizer series) COVID-19 VACCINE (4 - Booster for Pfizer series) [facility] Start: 04-27-2021 DEPRESSION ASSESSMENT DEPRESSION ASSESSMENT [facility] Start: 10-11-2020 HbA1c (Bld) [Mass fraction] A1C [facility] Start: 10-11-2020 Hemoglobin A1c measurement A1C [facility] Start: 08-15-2020 End: 08-15-2020 Office Visit 08/15/2020 Office Visit Sports Austin Ramesh MD [address] [place] [address] [phone] [facility] Start: 06-20-2020 End: 06-20-2020 Follow-Up 06/20/2020 Follow-Up Austin Trinh MD [address] [place] [address] [phone] [facility] Start: 2020 PROSTATE CANCER SCREENING DISCUSSION PROSTATE CANCER SCREENING DISCUSSION [facility] Start: 2020 Prostate specific antigen measurement Prostate Cancer Screening Discussion [facility] Start: 05-23-2020 End: 05-23-2020 Follow-Up 05/23/2020 Follow-Up Sports Austin Ramesh MD [address] [place] [address] [phone] [facility] Start: 12-27-2019 Influenza vaccination Sequential Influenza Vaccine (#1) [facility] Start: 12-27-2019 Influenza vaccination given Sequential Influenza Vaccine (#1) [facility] Start: 2015 Administration of herpes zoster vaccine Zoster Vaccines (1 of 2) [facility] Start: 2015 Screening for malignant neoplasm of colon [facility] Start: 2015 SHINGRIX VACCINE (1 of 2) SHINGRIX VACCINE (1 of 2) [facility] Start: 2010 COLOGUARD (FIT-DNA) COLOGUARD (FIT-DNA) [facility] Start: 2010 Colonoscopy COLONOSCOPY [facility] Start: 2010 COLORECTAL CANCER SCREENING COLORECTAL CANCER SCREENING [facility] Start: [address] COLONOGRAPHY [facility] Start: 2010 DIABETES SCREEN DIABETES SCREEN [facility] Start: 2010 FECAL OCCULT BLOOD FECAL OCCULT BLOOD [facility] Start: 2010 Screening for malignant neoplasm of colon [facility] Start: 2010 SIGMOIDOSCOPY SIGMOIDOSCOPY [facility] Start: 2000 LIPID SCREEN LIPID SCREEN [facility] Start: 1984 Urine microalbumin profile [facility] Start: 1983 ANNUAL PCP TEAM CHRONIC DISEASE VISIT ANNUAL PCP TEAM CHRONIC DISEASE VISIT [facility] Start: 1983 BP CONTROLLED (<130/80) BP CONTROLLED (<130/80) [facility] Start: 1983 Hepatitis C antibody, confirmatory test Hepatitis C Screening [facility] Start: 1983 Hepatitis C screening Hepatitis C Screening [facility] Start: 1983 HEPATITIS C SCREENING HEPATITIS C SCREENING [facility] Start: 1983 HIV SCREENING HIV SCREENING [facility] Start: 1983 HIV screening HIV Screening [facility] Start: 1981 COVID-19 Vaccine (1 of 2) COVID-19 Vaccine (1 of 2) [facility] Start: 1981 COVID-19 Vaccine (1) COVID-19 Vaccine (1) [facility] Start: 1980 HIV screening HIV Screening [facility] Start: 1977 Adolescent depression screening assessment Depression Screening (PHQ9) [facility] Start: 1977 Depression screening using PHQ-9 (Patient Health Questionnaire 9) score Depression Screening (PHQ9) [facility] Start: 1975 Albumin DL <= 20 mg/L (U) [Mass/Vol] Urine Microalbumin [facility] Start: 1975 Diabetic foot examination Foot Exam [facility] Start: 1975 Microalbumin measurement, urine, quantitative Urine Microalbumin [facility] Start: 1975 Ophthalmic examination and evaluation Ophthalmology Exam [facility] Start: 1968 History and physical examination, annual for health maintenance Wellness Visit [facility] Start: 1965 HEPATITIS B (1 of 3 - 3-dose series) HEPATITIS B (1 of 3 - 3-dose series) [facility] Start: 1965 Hepatitis B Vaccine (1 of 3 - 3-dose series) Hepatitis B Vaccine (1 of 3 - 3-dose series) [facility] Start: 1965 Prostate specific antigen measurement PSA Level [facility] Start: 1965 Tetanus vaccination Tetanus: Every 10yrs [facility] Immunizations Immunization Date Immunization Notes Care Provider Zelda walker 02-04-2018 influenza virus vacc ine, unspecified formulation Unk (Hist) [facility] Payers Date Payer Category Payer Medicare [id number] 2019 Medicare [employer]IEL [employer] M [employer] MEDIBLUE ESSENTIAL/PLUS/CONNECT/SNP HMO [id number] 2019-Present [id number] 2017 Unknown [id number] 2017 Unknown 1965 Unknown [id number] 1965 Unknown [id number] 1965 Unknown [id number]. 1965 Unknown [id number] 1965 Unknown [id number] 1965 Unknown [id number] 1965 Unknown [id number] 1965 Unknown [id number] 1965 Unknown [id number] 1965 Unknown [id number] 1965 Unknown [id number] 1965 Unknown [id number] 1965 Unknown [id number] Self-pay [id number] Unknown [id number] Social History Date Type Detail Facility Start: 04-24-2020 End: 08-15-2020 Tobacco smoking status MDIS Unknown if ever smoked [facility] Start: 1965 Sex Assigned At Not on file [facility] Start: 02-15-2022 End: 02-25-2022 Exposure to SARS-CoV-2 (event) Not sure [facility] Start: 02-25-2022 Tobacco smoking stat us MDIS Never smoked tobacco [facility] Start: 02-25-2022 Tobacco use and exposure Smoke less tobacco non-user [facility] Start: 02-25-2022 Alcohol intake Current drinke r of alcohol (finding) [facility] Start: 02-25-2022 Tobacco Comment second hand sm vinh growing up. [facility] Start: 04-22-2016 Alcohol Comment Rare [place] [facility] Start: 02-25-2022 End: 03-06-2023 History of Social function [facility] Start: 02-25-2022 End: 03-06-2023 Tobacco use panel [facility] National Score (1-10 0), lower number is lower risk 60 [facility] Clinical Notes 04-06-2020 to 06-23-2023 Edelmira Serna PA-C - 06/23/2023 11:46 AM ESTSimsAshvin N - 06/18/2023 4:56 PM EST Note Date & Type Note Facility 06-23-2023 History of Present illness Narrative C/o neck pain, arm pain, low back pain, bilateral leg pain, difficulty with ambulation, trouble using hands. CMT: -Gabapentin -NSAIDs -Tramadol 2nd opinion - offered surgery. New Patient appt with first available surgeon due to 2nd opinion. Eedlmira Serna PA-C Patient name: Meliza Eastman Are you being referred by a [facility] Spine Health Provider or Pain Management Provider at [facility]? No If answer is YES please schedule directly with surgeon, triage does not need to be completed. Is this a self-referral Yes If not, who is the Referring Provider Is this a 2nd opinion from another spine surgeon? Yes Were you offered surgery? Yes MRI/CT/myelogram within 12 months? Yes If NO , please refer to medical spine or PCP to complete above imaging, triage does not need to be completed If YES, please ask for the name/address of the facility where the MRI/CT/myelogram was completed: [facility] [address] [place] [address] MRI/CT/myelogram viewable in Epic: No If not, please provide [phone] to fax in imaging reports for review. Also, please inform patient to hand carry imaging disc to appointment. XR (spine) within 12 months: No If YES, please ask for the name/address of the facility where the XR was completed: Dr. Perez's patients: Have you had previous EMG/Nerve Conduction Study, Ultrasound, or MRI for these same symptoms? If YES, please ask for the name/address of the facility where they were completed: Requested provider (First and Last name): unk Are you interested in a virtual visit if offered? 1. Where are you having symptoms related to this visit? Cervical spine Back pain Yes Leg pain Yes bilateral Arm pain Yes Neck pain Yes Need shoulders, hips and knees replacements 2. Are you having any of the following symptoms: OPLL, arthritis Difficulty walking Yes uses a cane off balance Numbness No Weakness I don't know Trouble using your hands? Yes 3. Have you had any injections or physical therapy in the last 12 months? No If YES then please ask for the name/address of the facility where the injections and/or physical therapy was completed Have you tried any other kinds of non-surgical treatments in the last 12 months? (For example: NSAIDS, muscle relaxants, analgesics, oral steroids, Chiropractor, Acupuncture): gabapentin, NSAIDS 4. Are you currently taking daily prescribed narcotic medications for your current symptoms (For example Oxycodone, Hydrocodone, Tramadol, Morphine, Other)? Yes tramadol 5. Have you had previous spinal surgery for this same symptoms? No If YES please ask for the name of facility/address of where the surgery was completed: Additional Comments [phone] documented in this encounter [facility] 02-07-2023 Note HNO ID: [id number] Author: Note, Interface Service: ? Author Type: ? Type: Progress Notes Filed: 02/07/2023 5:29 AM Note Text: Epic Scheduled Downtime: 02/07/2023 1:00:00 AM to 02/07/2023 1:28:00 AM [facility] 01-26-2023 Note HNO ID: [id number] Author: Yolanda Jimenez APRN.CNP Service: Hospital Medicine Author Type: Nurse Practitioner Type: Progress Notes Filed: 01/26/2023 5:24 PM Note Text: DEPARTMENT OF HOSPITAL MEDICINE PROGRESS NOTE SERVICE DATE: 01/26/2023 SERVICE TIME: 11:28 AM Hospital Medicine/Primary Attending: Aamir Gasca MD NIGHT AND WEEKEND COVERAGE: Sound pager 7PM-7AM Subjective INTERVAL HPI: - Feels that he is progressing well with therapy but not quite back to baseline - Fogginess is getting better - No complaints of nausea or vomiting - Interested in going home soon Current Facility-Administered Medications Medication Dose Route Frequency therapeutic multivitamin-minerals tablet (THERA-M PLUS) 1 tablet ORAL DAILY lamoTRIgine 400 mg tab(s) (LaMICtal) 400 mg ORAL AT BEDTIME carvedilol 12.5 mg tab(s) (COREG) 12.5 mg ORAL BID w MEALS buPROPion SR 150 mg tab(s) (ZYBAN SR; WELLBUTRIN SR) 150 mg ORAL BID tamsulosin 0.4 mg cap(s) (FLOMAX) 0.4 mg ORAL DAILY diclofenac (EC) 75 mg tab(s) (VOLTAREN) 75 mg ORAL BID w MEALS ascorbic acid (vitamin C) 1,000 mg tab(s) (VITAMIN C) 1,000 mg ORAL DAILY ramipril 10 mg cap(s) (ALTACE) 10 mg ORAL AT BEDTIME cholecalciferol 2,000 Units tab(s) (VITAMIN D3) 2,000 Units ORAL DAILY amLODIPine 5 mg tab(s) (NORVASC) 5 mg ORAL AT BEDTIME ezetimibe 10 mg tab(s) (ZETIA) 10 mg ORAL DAILY acetaminophen 650 mg tab(s) (TYLENOL) 650 mg ORAL q [address] 40 mg tab(s) (PROTONIX) 40 mg ORAL BID AC (0600/1600) lithium carbonate 300 mg cap(s) (ESKALITH) 300 mg ORAL BID ondansetron orally disintegrating 4 mg tab(s) (ZOFRAN ODT) 4 mg ORAL q 6 H PRN Objective PHYSICAL EXAM: BP 143/83 Pulse 74 Temp (Src) 98.3 (Oral) Resp 16 Ht 5' 10 (1.78m) Wt 330 lb 11 oz (150.0kg) SpO2 96% BMI 47.45 kg/(m2). Physical Exam Performed GENERAL: Alert, no distress, cooperative, Sitting up in bedside chair SKIN: No rashes or lesions. HEAD/SINUSES: No significant findings. AT/NC EYES: EOMI OROPHARYNX: MMM LUNGS: Lungs clear to auscultation, good diaphragmatic excursion CARDIAC: Normal S1 and S2; no rubs, murmurs, or gallops ABDOMEN: Abdomen soft, non-tender, BS present EXTREMITIES: BLE edema, L>R chronic due to prior injury, KELSEY wraps in place Lines, Drains, and Airways None Patient does not currently have any lines, drains or airways. DATA: Diagnostic tests reviewed for today's visit: Most recent labs Assessment/Plan HOSPITAL COURSE: Meliza Eastman is a 57 year old male with a past medical history of HTN, HLD, and bipolar who presented to [facility] from [facility]. He was admitted to [facility] for evaluation of altered mentation and abnormal gait. Work up revealed slightly elevated Gays level for which his symptoms were attributed to. Prior to admission, he was taking Gays 300mg once daily and 600mg once daily. His dose was adjusted to 300mg BID. He was also found to have CARLOS for which HCTZ and KELSEY-I held and CARLOS improved. During hospitalization, he was evaluated by PT/OT and SNF was [facility]. Problem List: Principle Problem: Aftercare - Hospitalization Diagnosis: Gays toxicity, CARLOS - Discharge Facility: [facility] - PT/OT Consult - Nutrition Consult - Case Management Consult for Discharge Planning - Pain Control: PRN tylenol - DVT Prophylaxis: Ambulation - PT/OT Restrictions: None - Current Living Situation: Home alone - Code Status: Full Code Bipolar Gays toxicity - Presented to [facility] for evaluation of altered mentation (fogginess) and gait abnormality - MRI brain negative for acute process - Work up revealed lithium toxicity (1.3) - Prior to admission was taking Gays 300mg am and 600mg pm - Dose adjusted to 300mg BID - Symptoms improved - Mood is stable - Continue Lamictal - Repeat lithium level pending CARLOS - HCTZ and KELSEY-I held on admission - CARLOS improved - KELSEY-I (ramipril) resumed, continue to hold HCTZ for now - Monitor renal function weekly Essential hypertension - Stable on amlodipine and ramipril Lower extremity edema- Chronic - RLE > LLE- chronic per patient due to a prior injury - SUGAR hose compression stockings - Elevate BLE when out of bed Gastroesophageal reflux - History of GERD, not on PPI - Complaints of intermittent nausea/vomiting worse after eating - Will start PPI BID before meals and monitor - PRN zofran - Symptoms improved 01/22/23 1245 graduated compression stockings (ga,oh) VTE Prophylaxis: VTE prophylaxis appropriate Disposition: To be determined Plan of care discussed with Provider, RN, Patient and Care Management SIGNATURE: Yolanda Jimenez APRN.CNP PATIENT NAME: Meliza Eastman DATE: January 26, 2023 TIME: 5:16 PM [facility] documented as of this encounter (statuses as of 06/24/2023) [facility]11-01-2022 NoteHNO ID: [id number] Author: Lenin Pizarro DO Service: ? Author Type: Physician Type: Progress Notes Filed: 02/25/2022 4:03 PM Note Text: Functional visual field loss (primary encounter diagnosis) He has a classic clover-leaf pattern Both eyes with a normal optic nerve appearance clinically and these are incompatible. I have confirmed and edited as necessary the relevant ophthalmic history, ROS, and the neuro exam findings as obtained by others. I have seen and examined this patient. I have discussed the case and the management of this patient's care with the Resident/Fellow, if applicable. I also have reviewed and agree with the assessment and plan as stated above and agree with all of its relevant components. 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
== END | disposition home or self-care (01) ==
LOC: CT 14:25
PROVIDERS: PCP Family Medicine; Referring Provider Orthopaedic Surgery Sports Medicine; Visit Provider Orthopaedic Surgery Sports Medicine
DX: M54.2 Cervicalgia (principal); M19.011 Primary osteoarthritis, right shoulder
CPT/HCPCS: 72125; 73200; 73221

== ENCOUNTER → 2023-08-07 | Outpatient (CLI) | payer MEDICARE, SELFPAY ==
--- NOTE | 2023-08-07 12:57 | CDU_ITS ---
Reason For Study: Dizziness Rt. Velocities/BP Lt. Velocities/BP Prox CCA 77.8/10.7 cm/sec. Prox CCA 55.2/16 cm/sec. Mid CCA 68.3/12.6 cm/sec. Mid CCA 44.7/14.2 cm/sec. Dist CCA 52.2/11.6 cm/sec. Dist CCA 47.4/12.5 cm/sec. Prox ICA 43.9/11.6 cm/sec. Prox ICA 42.9/13.7 cm/sec. Mid ICA 99.8/29.8 cm/sec. Mid ICA 57.1/20.9 cm/sec. Dist ICA 112/29.8 cm/sec. Dist ICA 58/21.9 cm/sec. Rt. ICA/CCA = 1.64. Lt. ICA/CCA = 1.32. Prox ECA 50.4/9.7 cm/sec. Prox ECA 61.3/7.2 cm/sec. Rt. Vert. 36.9/12.5 cm/sec. Lt. Vert. 25.8/9.7 cm/sec. Right Extracranial There is intimal thickening but no significant atherosclerotic plaque noted in the right common carotid artery. There is intimal thickening but no significant atherosclerotic plaque noted in the right internal carotid artery. The right internal carotid artery is very tortuous. There is intimal thickening but no significant atherosclerotic plaque noted in the right external carotid artery. Antegrade flow is noted in the right vertebral artery. Left Extracranial There is homogeneous, smooth atherosclerotic plaque noted in the left common carotid artery. There is intimal thickening but no significant atherosclerotic plaque noted in the left internal carotid artery. The left internal carotid artery is very tortuous. There is intimal thickening but no significant atherosclerotic plaque noted in the left external carotid artery. Antegrade flow is noted in the left vertebral artery. Procedure Carotid Duplex 33550. This is a Carotid Duplex examination using B-mode, color flow and specral Doppler. The study was technically difficult. Exam performed in department. VL/Carotid Duplex Ultrasound Interpretation Summary Normal right extracranial internal carotid. Normal left extracranial internal carotid. Patent and antegrade vertebrals bilaterally. Ordering Physician: Janet Villavicencio Referring Physician: Jj Eason MD Performed By: Ester Mack RVT
== END | disposition home or self-care (01) ==
PROVIDERS: PCP Family Medicine; Referring Provider Nurse Practitioner Gerontology; Visit Provider Nurse Practitioner Gerontology
DX: R42 Dizziness and giddiness (principal)
CPT/HCPCS: 93880

== ENCOUNTER → 2023-08-13 | Outpatient (CLI) | payer MEDICARE, SELFPAY ==
[2023-08-13 15:23] LABS: Absolute Lymphocyte Count 2.33 X10^3/uL (0.83-4.51); Absolute Neutrophil Count 4.9 X10^3/uL (2.0-7.7); Basophil# 0.06 X10^3/uL; Basophil% 0.7 % (0-1); Eosinophils% 2.4 % (0-5); Hematocrit 46.8 % (40-54); Hemoglobin 16.1 g/dL (13.0-16.5); Lymphocyte # 2.33 X10^3/ul (0.83-4.51); Lymphocyte % 28.2 % (19-41); Mean Corp Hgb Conc 34.4 g/dL (32-36); Mean Corpuscular Hgb 30.8 pg (27.0-32.0); Mean Corpuscular Volume 89.5 fL (80-94); Mean Platelet Vol. 11.2 fl (6.2-12.0); Monocyte# 0.71 X10^3/uL; Monocyte% 8.6 % (0-10); NRBC Flagged by Analyzer 0 % (0-5); Neutrophil # 4.91 X10^3/uL (2.7-7.7); Neutrophil % 59.4 % (47-70); Platelet Count 282 K/mm3 (150-450); RBC Distribution Width CV 14.2 % (11.6-14.6); RBC Distribution Width SD 46.3 fl (35.1-43.9); Red Blood Count 5.23 M/mm3 (4.6-6.2); White Blood Count 8.3 K/mm3 (4.4-11.0)
[2023-08-13 16:18] LABS: ALB/GLOB Ratio 1.2 RATIO (0.9-2.4); AST(SGOT) 26 U/L (15-37); Alanine Aminotransfer ALT/SGPT 40 U/L (16-61); Albumin, Serum 4.2 g/dL (3.2-5.0); Alkaline Phosphatase 73 U/L (45-117); Anion Gap 6 (5-15); BUN 21 mg/dL (7-18); BUN/Creat Ratio 21.5 RATIO (10-20); Calcium,Total 9.4 mg/dL (8.5-10.1); Chloride 102 mmol/L (98-107); Creatinine, Serum 0.98 mg/dL (0.70-1.30); EST Glomerular Filtration Rate 84 mL/min (>60); Est Glom Filt Rate - Afr Amer 101 mL/min (>60); Globulin 3.5 g/dL (2.2-4.2); Glucose 109 mg/dL (74-106); Potassium 4.7 mmol/L (3.5-5.1); Protein, Total 7.7 g/dL (6.4-8.2); Sodium Level 136 mmol/L (136-145); Thyroid Stim Hormone (TSH) 1.35 uIU/mL (0.358-3.74)
== END | disposition home or self-care (01) ==
LOC: MFPLAB 12:03
PROVIDERS: PCP Family Medicine; Visit Provider Family Medicine
DX: I42.2 Other hypertrophic cardiomyopathy (principal); I50.30 Unspecified diastolic (congestive) heart failure
CPT/HCPCS: 36415; 80053; 84443; 85025

== ENCOUNTER 2023-08-31 10:05 | Day surgery (SDC) | payer MEDICARE, SELFPAY ==
[2023-08-31] VITALS (8 sets, daily range): BP systolic 140–162; BP diastolic 88–99; PULSE 66–72; RESP 16; TEMP 36.1–36.4; O2SAT 92–96; BMI 49.9
--- NOTE | 2023-08-31 10:40 | RAD_ITS ---
PROCEDURE: Right shoulder injection. DATE OF EXAMINATION: August 31, 2023. INDICATION: Male, 58 years old. Right shoulder injection. FLUOROSCOPY TIME (if supplied): (4.9 seconds) minutes/seconds. 0.97 mGy. One image was submitted. RAD/Fluoro Guided Needle Placement IMPRESSION: Intraoperative fluoroscopic services provided for right shoulder injection. Electronically Signed: Daniel Torres MD at 15:24 EDT ,
[2023-08-31] MEDS: Lactated Ringers 1,000 ML 15 ML IV (10:57)
[2023-08-31] MEDS: Lidocaine 1% (5 ml sdv) 5 ML Vial (11:17)
[2023-08-31] MEDS: MethylPREDNISolone Acetate 40 MG/ML Vial (11:19)
--- NOTE | 2023-08-31 11:22 | OP.PCM_ITS ---
Report of Operation Date of Procedure: 08/31/23 Description of Surgical Findings:: PREOPERATIVE DIAGNOSIS: Osteoarthritis of the right shoulder. POSTOPERATIVE DIAGNOSIS: Osteoarthritis of the right shoulder. PROCEDURE PERFORMED: Right shoulder intraarticular steroid injection under fluoroscopic guidance. ANESTHESIA: MAC. BLOOD LOSS: Minimal. COMPLICATIONS: None. DESCRIPTION OF PROCEDURE: History and physical of today was reviewed. Risks and benefits of the procedure were explained. The patient understood and agreed to proceed. Informed consent was obtained. IV inserted per routine protocol. The patient was taken to the operating room and placed in the supine position. The right shoulder area was prepped and draped in a sterile fashion using iodine x3. Under fluoroscopic guidance on AP view, the right shoulder joint was visualized. The skin and subcutaneous tissue was anesthetized with approximately 1 mL of 1% lidocaine using a 25-gauge regular needle at the anterior shoulder joint area. Under direct visualization with fluoroscopy on AP view, using a 22-gauge 3-1/2-inch spinal needle, the needle was advanced via the skin directed towards the intraarticular position at the supraspinatus level. Once the tip of the needle was at the vicinity of the shoulder joint, after negative aspiration for blood, positive aspiration for synovial fluid, a total of 1 mL of contrast was injected to confirm correct placement of the needle as well as anterior and posterior spread of the contrast at the shoulder joint. Cephalocaudal spread as well was visualized through the arthrogram. After confirmation on AP as well as oblique view and repeated negative aspiration for blood, a total of 4 mL of preservative-free 0.25% Marcaine with 40 mg of Depo- Medrol was injected easily. The needle was then removed intact. The patient experienced no sign or symptoms of intravascular injection. The patient experienced no paresthesia. The procedure was completed without any apparent difficulty or any complications. The patient appeared to tolerate it well. Assessment and plan: This is a 58-year-old male with osteoarthritis of the right shoulder status post right shoulder intra-articular steroid injection under fluoroscopic guidance, patient will continue his current medications, patient will follow in approximately 2 weeks for reevaluation.
== END 2023-08-31 12:19 | disposition home or self-care (01) ==
LOC: SDC 10:06 → AC 10:07
PROVIDERS: PCP Family Medicine; Referring Provider Anesthesiology Pain Medicine; Visit Provider Anesthesiology Pain Medicine
PROC: 3E0U3GC Introduction of Other Therapeutic Substance into Joints, Percutaneous Approach (ICD-10-PCS; CPT 20610; principal; 2023-08-31 11:35)
DX: M19.011 Primary osteoarthritis, right shoulder (principal); F31.9 Bipolar disorder, unspecified; E11.9 Type 2 diabetes mellitus without complications; I10 Essential (primary) hypertension; E78.5 Hyperlipidemia, unspecified; G47.33 Obstructive sleep apnea (adult) (pediatric); Z79.891 Long term (current) use of opiate analgesic; Z79.899 Other long term (current) drug therapy
CPT/HCPCS: 20610; 01991; 76000; 77002; J7120

== ENCOUNTER 2023-10-12 08:12 | Day surgery (SDC) | payer MEDICARE, SELFPAY ==
--- NOTE | 2023-10-12 08:51 | PRE.ANES_ITS ---
ASA Classification* ASA Classification ASA Classification: 2 Assessment & Plan Anesthesia* Anesthesia Assessment Anesthesia Assessment: Discussed sedation and/or anesthesia options, risks, benefits, and alternatives with patient/parents/legal guardian/POA. Questions invited. The patient/parents/legal guardian/POA seems to understand and agrees to proceed with anesthesia plan. Reviewed the physical assessment, medical history, allergy history and patient home medications list prior to surgery/procedure/anesthetic and documented any changes. Performed airway and anesthesia risk assessments. Anesthesia Type Anesthesia Type: MAC Pre-Assessment Diagnosis/Proposed Procedure Planned Operative Procedure(s): right hip articular steroid injection Anesthesia History Anesthesia History - assistant case manager: Anesthesia History - assistant case manager Hx Hospitalization Yes: 01/17, 03/19 : [facility] 08/20/23 13:15 Any Problems With Anesthesia No 08/20/23 13:15 Cholinesterase deficiency No 08/20/23 13:15 You/Your Family Experience No 08/20/23 13:15 fever (hyperthermia) with Relationship Recent Exposure to Contagious No 08/31/23 10:34 Disease Does patient have nerve No 08/20/23 13:15 stimulator Patient instructed to have device shut off --Does patient have Pacemaker or ICD? When Was Last Pacemaker Check QUESTION #4 FULL TEXT: You/Your Family Experience fever (hyperthermia) with Anesthesia Last Oral Intake Last Oral intake: Last Oral Intake NPO since Meds taken in AM with sips of water? Meds patient instructed to take am of surgery PONV PONV - assistant case manager: PONV - assistant case manager Female HX of Motion Sickness HX of N/V After Surgery Non-Smoker Duration of Surgery greater than 60 minutes Number of Risk Factors PONV Score Height & Weight Height & Weight: Anesthesia: Height & Weight Height 5 ft 10 in 08/31/23 10:34 Respiratory Assessment Respiratory Assessment - assistant case manager: Respiratory Tract Infection Hx - assistant case manager Hx Respiratory Tract Infection No 08/20/23 13:15 STOP Sleep Apnea STOP Sleep Apnea - assistant case manager: STOP Sleep Apnea - assistant case manager Hx Hypertension Yes 08/20/23 13:15 Hx Sleep Apnea Yes 08/20/23 13:15 CPAP No 08/31/23 11:23 BIPAP No 08/20/23 13:15 Do you snore loudly (louder than talking or can be heard Do you often feel tired/ fatigued/ sleepy during daytime? Has anyone observed you stop breathing during sleep? STOP Results QUESTION #5 FULL TEXT : Do you snore loudly (louder than talking or can be heard through closed doors)? 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 Specify any problems Hx of Preganancy in last 3 Months Nurse Filling Out Transfusion & Questions: Date: Time: Patient unable to answer at this time (ie. confused, unrespo /Reproduction History /Reproductive History - assistant case manager: /Reproductive Hx- assistant case manager Hx Now Gestational Age (in weeks): EDC: Hx Hx Para Hx Section SAB No 08/20/23 13:15 Active Medications Active Medications: Current Medications Generic Name Dose Route Start Last Admin Trade Name Freq PRN Reason Stop Dose Admin Lactated Ringer's 1,000 mls @ 15 mls/hr 10/12/23 08:45 IV .Q48H [facility] Anesthesia Focused Assessment* Airway Assessment Mouth opens: >3 cm Mallampati Score: II Focused Labs Anesthesia Preop lab: CBC WBC 8.3 K/mm3 (4.4-11.0) 08/13/23 12:03 RBC 5.23 M/mm3 (4.6-6.2) 08/13/23 12:03 Hgb 16.1 g/dL (13.0-16.5) 08/13/23 12:03 Hct 46.8 % (40-54) 08/13/23 12:03 Plt Count 282 K/mm3 (150-450) 08/13/23 12:03 CHEMISTRY Potassium 4.7 mmol/L (3.5-5.1) 08/13/23 12:03 Sodium 136 mmol/L (136-145) 08/13/23 12:03 Magnesium 2.3 mg/dL (1.6-2.6) 03/06/23 04:05 Phosphorus 4.3 mg/dL (2.5-4.9) 02/26/23 06:00 BUN 21 mg/dL (7-18) H 08/13/23 12:03 Creatinine 0.98 mg/dL (0.70-1.30) 08/13/23 12:03 Glucose 109 mg/dL (74-106) H 08/13/23 12:03 TSH 1.35 uIU/mL (0.358-3.74) 08/13/23 12:03 COAG PT 12.8 SECONDS (11.7-14.9) 05/27/22 13:36 Review of Systems (Anesthesia) ROS Narrative System reviewed and no additional complaints, except as documented. COUNT INCLUDES THE [facility] Medical History Medical non-compliance Metabolic encephalopathy Abnormal lithium level in blood History of bipolar disorder Obesity, morbid, BMI 50 or higher Wears glasses Headache Loss of consciousness Pain Primary osteoarthritis, right shoulder Primary osteoarthritis, left shoulder Left shoulder pain Right shoulder pain Dizziness Degenerative joint disease (DJD) of hip Cancer Bipolar disorder Depression Anxiety Ambulates with cane Arthritis High cholesterol Back pain Injury of head and neck Hx of reactive hypoglycemia Non-smoker CPAP (continuous positive airway pressure) dependence Shortness of breath on exertion Chronic cough History of pain when walking History of edema Hypertension Cardiology follow-up encounter History of echocardiogram History of stress test Osteoarthritis of right hip Chest pain SOBOE (shortness of breath on exertion) Obesity Iliotibial band syndrome affecting left lower leg Disc degeneration, lumbar Osteoarthritis of right hip Breast mass, left Chronic pain of both knees Cataract, left eye Essential (primary) hypertension Body mass index (BMI) 35 or more Obesity Anxiety and depression RAY (obstructive sleep apnea) Palpitations Hyperlipidemia Home Medications ?Medication ?Instructions ?Recorded ?Last Taken ?Type multivitamin (Daily Multi-Vitamin 1 tab PO DAILY supplement 12/01/19 01/12/23 History tablet) lamotrigine 200 mg tablet 400 mg PO QHS skin 08/02/20 03/16/22 History acetaminophen 500 mg capsule 500 mg PO Q6H PRN Pain 05/21/21 08/31/23 05:00 History bupropion HCl 150 mg tablet,12 hr 150 mg PO BID depression 12/03/21 03/16/22 History sustained-release (Wellbutrin SR) ascorbic acid (vitamin C) 500 mg 1,000 mg PO DAILY vitamin 05/27/22 Unknown History tablet (Vitamin C) cholecalciferol (vitamin D3) 25 2,000 unit PO DAILY vitamin 05/27/22 Unknown History mcg (1,000 unit) chewable tablet (Vitamin D3) ramipril 10 mg capsule 10 mg PO BID bp 05/27/22 08/31/23 07:00 History tamsulosin 0.4 mg capsule 0.4 mg PO Q24H prostate 11/14/22 Unknown History amlodipine 5 mg tablet 5 mg PO QHS blood pressure #90 tabs 11/25/22 08/31/23 07:00 Rx gabapentin 800 mg tablet 800 mg PO QHS pain 02/25/23 Unknown History carvedilol 6.25 mg tablet 6.25 mg PO BID 30 days #180 tabs 04/07/23 08/31/23 07:00 Rx ezetimibe 10 mg tablet (Zetia) 10 mg PO DAILY cholesterol #90 tabs 04/07/23 Unknown Rx hydrochlorothiazide 25 mg tablet 25 mg PO DAILY 05/01/23 Unknown History perphenazine 2 mg tablet 2 mg PO QHS 05/01/23 Unknown History nabumetone 750 mg tablet 750 mg PO BID 08/20/23 Unknown History omeprazole 40 mg capsule,delayed 40 mg PO DAILY 08/20/23 Unknown History release tramadol 50 mg tablet 50 mg PO QHS PRN PRN pain 08/20/23 Unknown History Allergy/AdvReac Type Severity Reaction Status Date / Time atorvastatin (From Lipitor) Allergy Unknown Verified 08/31/23 10:30 Penicillins Allergy Unknown Verified 08/31/23 10:30 pravastatin (From Pravachol) Allergy Unknown Verified 08/31/23 10:30 tolmetin Allergy Hives Verified 08/31/23 10:30 meloxicam AdvReac Other Verified 08/31/23 10:30 Family History Mother Breast cancer Myocardial infarction Hypertension Father Colon cancer Myocardial infarction Surgical History History of total left hip arthroplasty Hx of exploratory laparotomy Hx of release of tendon Hx of arthroscopy of left knee Hx of arthroscopy of right knee History of carpal tunnel surgery of right wrist Hx of arthroscopy of shoulder History of open reduction and internal fixation (ORIF) procedure Hx of right cataract extraction S/P partial mastectomy History of left hip replacement (01/2017) H/O rotator cuff surgery History of left heart catheterization (02/2013) Social History Smoking Status: Never smoker alcohol intake: never substance use type: does not use caffeine: Yes Type: carbonated beverages Number of servings: 3 what type of physical activity do you participate in: none
[2023-10-12] MEDS: Lactated Ringers 1,000 ML 15 ML IV (09:00)
[2023-10-12 09:01] VITALS: BP 176/115; PULSE 77; RESP 16; TEMP 36.8; O2SAT 95; BMI 50.0
--- NOTE | 2023-10-12 10:14 | RAD_ITS ---
PROCEDURE: Fluoroscopic guided right hip steroid injection DATE OF EXAMINATION: October 12, 2023 INDICATION: Male, 58 years old. RT HIP STEROID INJ PHYSICIAN: Sin Murphy MD FLUOROSCOPY TIME (if supplied): (6.4 seconds RADIATION DOSAGE (If Supplied By Facility): CTDIvol = ( 1.96 ) mGy, DLP = ( ) mGycm CONSENT: The risks, benefits and alternatives to the procedure were explained to the patient, and the patient agreed to the procedure and signed the consent. STERILE BARRIER TECHNIQUE: The following sterile barrier precautions were used during the procedure: hand hygiene; use of 2% chlorhexidine aseptic; use of a cap, mask, sterile gown, sterile gloves, sterile full body drape, and a large sterile sheet. PROCEDURE/TECHNIQUE: (All elements of maximal sterile barrier technique followed, including US elements as applicable) The risks, benefits, and alternatives to the procedure were explained to patient, and the patient agreed to the procedure and signed a consent form for the procedure. A timeout was performed to confirm the patient''s identity, the type of procedure, to be performed and the site of entry. FINDINGS: 1 frontal fluoroscopic view of the right hip was presented for interpretation. The images shows well placed intra-articular needle at the outer head neck junction of the hip joint with subsequent contrast injection which shows normal outline of the hip joint and capsule. The hip joint is moderately narrowed axially. RAD/Fluoro Guided Needle Placement IMPRESSION: 1. Status post fluoroscopic guided right hip steroid injection. Electronically Signed: Marshall Ritter MD at 11:18 EDT ,
[2023-10-12] MEDS: Lidocaine 1% (5 ml sdv) 5 ML Vial (10:18)
[2023-10-12] MEDS: MethylPREDNISolone Acetate 80 MG/ML Vial (10:18)
[2023-10-12 11:02] VITALS: BP 168/100; BP 176/99; PULSE 73; RESP 16; TEMP 36.1; O2SAT 94
--- NOTE | 2023-10-12 11:04 | PCM.OPRPT ---
Report of Operation Date of Procedure: 10/12/23 Description of Surgical Findings:: PREOPERATIVE DIAGNOSIS: Osteoarthritis of the right hip POSTOPERATIVE DIAGNOSIS: Osteoarthritis of the right hip PROCEDURE PERFORMED: Right hip intraarticular steroid injection under fluoroscopy guidance. ANESTHESIA: Local BLOOD LOSS: Minimal. COMPLICATIONS: None. DESCRIPTION OF PROCEDURE: History and physical of today was reviewed. Risks and benefits of the procedure were explained. The patient understood and agreed to proceed. Informed consent was obtained. IV inserted per routine protocol. The patient was taken to the operating room and placed in the supine position. The right hip area was prepped and draped in a sterile fashion using iodine x3. Under fluoroscopy guidance on AP view, the right hip joint was visualized. The skin and subcutaneous tissue was anesthetized with approximately 3 mL of 1% lidocaine using a 25-gauge regular needle approximately 3 cm cephalad to the right greater trochanter. Under direct visualization with fluoroscopy on an AP view, using a 22-gauge 5-inch spinal needle, the needle was advanced via the skin using the lateral approach. The tip of the needle was maneuvered and directed towards the superiormost aspect of the hip joint. Once the tip of the needle was at the vicinity of the joint, after negative aspiration for blood and positive aspiration of synovial fluid, a total of 1 mL of contrast was injected to confirm correct placement of the needle as well as halo spread around the hip joint. After repeated negative aspiration for blood and confirmation on AP as well as oblique view, a total of 10 mL of preservative-free 0.25% Marcaine with 80 mg of Depo-Medrol was injected easily. The needle was then removed intact. The patient experienced no sign or symptoms of intrathecal or intravascular injection. The patient experienced no paresthesia. The procedure was completed without any apparent difficulty or any complications. The patient appeared to tolerate it well. ASSESSMENT AND PLAN: This is a 58-year-old male with osteoarthritis of the right hip status post right hip intra-articular steroid injection under fluoroscopic guidance, patient will continue his current medications, patient will follow in approximately 2 weeks for reevaluation.
== END 2023-10-12 11:08 | disposition home or self-care (01) ==
LOC: SDC 08:19 → AC 08:40
PROVIDERS: PCP Family Medicine; Visit Provider Anesthesiology Pain Medicine
PROC: 3E0U3GC Introduction of Other Therapeutic Substance into Joints, Percutaneous Approach (ICD-10-PCS; CPT 20610; principal; 2023-10-12 09:25)
DX: M16.11 Unilateral primary osteoarthritis, right hip (principal); G47.33 Obstructive sleep apnea (adult) (pediatric); M47.816 Spondylosis without myelopathy or radiculopathy, lumbar region; M51.37 Other intervertebral disc degeneration, lumbosacral region; M54.17 Radiculopathy, lumbosacral region; M51.36 Other intervertebral disc degeneration, lumbar region; M79.7 Fibromyalgia; Z79.891 Long term (current) use of opiate analgesic; Z79.899 Other long term (current) drug therapy
CPT/HCPCS: 20610; 76000; 77002; J7120

== ENCOUNTER → 2023-11-12 | Outpatient (CLI) | payer MEDICARE, SELFPAY ==
[2023-11-12 18:02] LABS: Absolute Lymphocyte Count 2.59 X10^3/uL (0.83-4.51); Absolute Neutrophil Count 6.7 X10^3/uL (2.0-7.7); Basophil# 0.07 X10^3/uL; Basophil% 0.7 % (0-1); Eosinophil# 0.25 X10^3/uL; Eosinophils% 2.4 % (0-5); Hematocrit 44.3 % (40-54); Hemoglobin 14.1 g/dL (13.0-16.5); Lymphocyte # 2.59 X10^3/ul (0.83-4.51); Lymphocyte % 24.5 % (19-41); Mean Corp Hgb Conc 31.8 g/dL (32-36); Mean Corpuscular Hgb 29.7 pg (27.0-32.0); Mean Corpuscular Volume 93.3 fL (80-94); Monocyte# 0.78 X10^3/uL; Monocyte% 7.4 % (0-10); NRBC Flagged by Analyzer 0 % (0-5); Neutrophil # 6.71 X10^3/uL (2.7-7.7); Neutrophil % 63.3 % (47-70); Platelet Count 270 K/mm3 (150-450); RBC Distribution Width CV 12.6 % (11.6-14.6); RBC Distribution Width SD 43.2 fl (35.1-43.9); Red Blood Count 4.75 M/mm3 (4.6-6.2); White Blood Count 10.6 K/mm3 (4.4-11.0)
[2023-11-12 18:32] LABS: ALB/GLOB Ratio 1.2 RATIO (0.9-2.4); AST(SGOT) 22 U/L (15-37); Alanine Aminotransfer ALT/SGPT 53 U/L (16-61); Alkaline Phosphatase 72 U/L (45-117); Anion Gap 7 (5-15); BUN 22 mg/dL (7-18); BUN/Creat Ratio 21.2 RATIO (10-20); CRP 6.14 mg/L (0.0-3.0); Calcium,Total 9.3 mg/dL (8.5-10.1); Chloride 103 mmol/L (98-107); Creatinine, Serum 1.04 mg/dL (0.70-1.30); EST Glomerular Filtration Rate 78 mL/min (>60); Est Glom Filt Rate - Afr Amer 94 mL/min (>60); Globulin 3.3 g/dL (2.2-4.2); Glucose 104 mg/dL (74-106); Potassium 4.4 mmol/L (3.5-5.1); Protein, Total 7.3 g/dL (6.4-8.2); Sodium Level 137 mmol/L (136-145); Thyroid Stim Hormone (TSH) 1.49 uIU/mL (0.358-3.74)
[2023-11-12 19:02] LABS: PTHIN 21.8 pg/mL (18.4-80.1)
[2023-11-16 13:07] LABS: Lyme Scn Total Ab w/Rflx Negative (Negative); PROEL- A/G Ratio 1.4 (0.7-1.7); PROEL- Albumin 3.8 g/dL (2.9-4.4); PROEL- Alpha-1 Globulin 0.2 g/dL (0.0-0.4); PROEL- Alpha-2 Globulin 0.8 g/dL (0.4-1.0); PROEL- Gamma Globulin 0.7 g/dL (0.4-1.8); PROEL- Globulin, Total 2.8 g/dL (2.2-3.9); PROEL- TOTAL PROTEIN 6.6 g/dL (6.0-8.5); PROEL-M-Spike Not Observed g/dL (Not Observed)
== END | disposition home or self-care (01) ==
LOC: MFPLAB 14:10
PROVIDERS: PCP Family Medicine; Visit Provider Family Medicine
DX: I50.30 Unspecified diastolic (congestive) heart failure (principal); M19.90 Unspecified osteoarthritis, unspecified site; M25.50 Pain in unspecified joint
CPT/HCPCS: 36415; 80053; 83970; 84165; 84443; 85025; 86140; 86618

== ENCOUNTER 2023-12-01 08:06 | Day surgery (SDC) | payer MEDICARE, SELFPAY ==
[2023-12-01] VITALS (8 sets, daily range): BP systolic 148–163; BP diastolic 89–102; PULSE 63–72; RESP 14–20; TEMP 36.1–36.7; O2SAT 92–97; BMI 48.7
--- NOTE | 2023-12-01 08:31 | PCM.PRE.AN2 ---
ASA Classification* ASA Classification ASA Classification: 3 Assessment & Plan Anesthesia* Anesthesia Assessment Anesthesia Assessment: Discussed sedation and/or anesthesia options, risks, benefits, and alternatives with patient/parents/legal guardian/POA. Questions invited. The patient/parents/legal guardian/POA seems to understand and agrees to proceed with anesthesia plan. Reviewed the physical assessment, medical history, allergy history and patient home medications list prior to surgery/procedure/anesthetic and documented any changes. Performed airway and anesthesia risk assessments. Anesthesia Type Anesthesia Type: MAC (*see written preanesthesia record for full assessment) Anesthesia Focused Assessment* Temperature: 96.9 F Pulse Rate: 70 Blood Pressure: 156/92 Respiratory Rate: 16 Pulse Ox: 97 Airway Assessment Mouth opens: >3 cm Mallampati Score: II Focused Labs Anesthesia Preop lab: CBC WBC 10.6 K/mm3 (4.4-11.0) 11/12/23 14:15 RBC 4.75 M/mm3 (4.6-6.2) 11/12/23 14:15 Hgb 14.1 g/dL (13.0-16.5) 11/12/23 14:15 Hct 44.3 % (40-54) 11/12/23 14:15 Plt Count 270 K/mm3 (150-450) 11/12/23 14:15 CHEMISTRY Potassium 4.4 mmol/L (3.5-5.1) 11/12/23 14:15 Sodium 137 mmol/L (136-145) 11/12/23 14:15 Magnesium 2.3 mg/dL (1.6-2.6) 03/06/23 04:05 Phosphorus 4.3 mg/dL (2.5-4.9) 02/26/23 06:00 BUN 22 mg/dL (7-18) H 11/12/23 14:15 Creatinine 1.04 mg/dL (0.70-1.30) 11/12/23 14:15 Glucose 104 mg/dL (74-106) 11/12/23 14:15 POC Glucose 119 mg/dL (74-106) H 01/13/23 06:03 TSH 1.49 uIU/mL (0.358-3.74) 11/12/23 14:15 COAG PT 12.8 SECONDS (11.7-14.9) 05/27/22 13:36 Pre-Assessment Diagnosis/Proposed Procedure Planned Operative Procedure(s): COLONOSCOPY Anesthesia History Anesthesia History - special education professor: Anesthesia History - special education professor Hx Hospitalization Yes: 01/17, 03/19 : [facility] 11/25/23 12:42 Any Problems With Anesthesia No 11/25/23 12:42 Cholinesterase deficiency No 11/25/23 12:42 You/Your Family Experience No 11/25/23 12:42 fever (hyperthermia) with Relationship Recent Exposure to Contagious No 12/01/23 08:27 Disease Does patient have nerve No 11/25/23 12:42 stimulator Patient instructed to have device shut off --Does patient have Pacemaker No 12/01/23 08:27 or ICD? When Was Last Pacemaker Check QUESTION #4 FULL TEXT: You/Your Family Experience fever (hyperthermia) with Anesthesia Last Oral Intake Last Oral intake: Last Oral Intake NPO since 23:00 12/01/23 08:27 Meds taken in AM with sips of Yes 12/01/23 08:27 water? Meds patient instructed to see med list 12/01/23 08:27 take am of surgery PONV PONV - special education professor: PONV - special education professor Female No 11/25/23 12:42 HX of Motion Sickness No 11/25/23 12:42 HX of N/V After Surgery No 11/25/23 12:42 Non-Smoker Yes 11/25/23 12:42 Duration of Surgery greater No 11/25/23 12:42 than 60 minutes Number of Risk Factors 1 11/25/23 12:42 PONV Score Low Risk 11/25/23 12:42 Height & Weight Height & Weight: Anesthesia: Height & Weight Height 5 ft 10 in 12/01/23 08:27 Weight: 154.2 kg 12/01/23 08:27 Body Mass Index (BMI) 48.7 12/01/23 08:27 Respiratory Assessment Respiratory Assessment - special education professor: Respiratory Tract Infection Hx - special education professor Hx Respiratory Tract Infection No 11/25/23 12:42 STOP Sleep Apnea STOP Sleep Apnea - special education professor: STOP Sleep Apnea - special education professor Hx Hypertension Yes: CONTROLLED WITH MEDS 11/25/23 12:42 Hx Sleep Apnea Yes 11/25/23 12:42 CPAP No 11/25/23 12:42 BIPAP No 11/25/23 12:42 Do you snore loudly (louder than talking or can be heard Do you often feel tired/ fatigued/ sleepy during daytime? Has anyone observed you stop breathing during sleep? STOP Results Positive 11/25/23 12:42 QUESTION #5 FULL TEXT : Do you snore loudly (louder than talking or can be heard through closed doors)? 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 Specify any problems Hx of Preganancy in last 3 N/A 11/25/23 12:42 Months Nurse Filling Out Transfusion [id number] 11/25/23 12:42 & Questions: Date: 11/25/23 11/25/23 12:42 Time: 12:46 11/25/23 12:42 Patient unable to answer at this time (ie. confused, unrespo /Reproduction History /Reproductive History - special education professor: /Reproductive Hx- special education professor Hx Now Gestational Age (in weeks): EDC: Hx Hx Para Hx Section SAB No 11/25/23 12:42 Active Medications Active Medications: Current Medications Generic Name Dose Route Start Last Admin Trade Name Freq PRN Reason Stop Dose Admin Lactated Ringer's 1,000 mls @ 15 mls/hr 12/01/23 08:15 IV .Q48H ARSENIO PFSH Medical History (Updated 11/25/23 @ 12:50 by Jonathan Ruiz) History of acute renal failure Family history of malignant neoplasm of colon in first degree relative diagnosed when younger than 60 years of age Family history of colon cancer in father Osteoarthritis of left knee Left knee pain Medical non-compliance Metabolic encephalopathy Abnormal lithium level in blood History of bipolar disorder Obesity, morbid, BMI 50 or higher Wears glasses Headache Loss of consciousness Pain Primary osteoarthritis, right shoulder Primary osteoarthritis, left shoulder Left shoulder pain Right shoulder pain Dizziness Degenerative joint disease (DJD) of hip Cancer Bipolar disorder Depression Anxiety Ambulates with cane Arthritis High cholesterol Back pain Injury of head and neck Hx of reactive hypoglycemia Non-smoker CPAP (continuous positive airway pressure) dependence Shortness of breath on exertion Chronic cough History of pain when walking History of edema Hypertension Cardiology follow-up encounter History of echocardiogram History of stress test Osteoarthritis of right hip Chest pain SOBOE (shortness of breath on exertion) Obesity Iliotibial band syndrome affecting left lower leg Disc degeneration, lumbar Osteoarthritis of right hip Breast mass, left Chronic pain of both knees Cataract, left eye Essential (primary) hypertension Body mass index (BMI) 35 or more Obesity Anxiety and depression RAY (obstructive sleep apnea) Palpitations Hyperlipidemia Home Medications ?Medication ?Instructions ?Recorded ?Last Taken ?Type multivitamin (Daily Multi-Vitamin 1 tab PO DAILY supplement 12/01/19 01/12/23 History tablet) lamotrigine 200 mg tablet 400 mg PO QHS skin 08/02/20 03/16/22 History acetaminophen 500 mg capsule 500 mg PO Q6H PRN Pain 05/21/21 08/31/23 05:00 History bupropion HCl 150 mg tablet,12 hr 150 mg PO BID depression 12/03/21 03/16/22 History sustained-release (Wellbutrin SR) ascorbic acid (vitamin C) 500 mg 1,000 mg PO DAILY vitamin 05/27/22 Unknown History tablet (Vitamin C) cholecalciferol (vitamin D3) 25 2,000 unit PO DAILY vitamin 05/27/22 12/01/23 History mcg (1,000 unit) chewable tablet (Vitamin D3) ramipril 10 mg capsule 10 mg PO BID bp 05/27/22 12/01/23 History tamsulosin 0.4 mg capsule 0.4 mg PO Q24H prostate 11/14/22 Unknown History amlodipine 5 mg tablet 5 mg PO QHS blood pressure #90 tabs 11/25/22 12/01/23 Rx gabapentin 800 mg tablet 800 mg PO QHS pain 02/25/23 Unknown History carvedilol 6.25 mg tablet 6.25 mg PO BID 30 days #180 tabs 04/07/23 08/31/23 07:00 Rx ezetimibe 10 mg tablet (Zetia) 10 mg PO DAILY cholesterol #90 tabs 04/07/23 Unknown Rx hydrochlorothiazide 25 mg tablet 25 mg PO DAILY 05/01/23 Unknown History nabumetone 750 mg tablet 750 mg PO BID 08/20/23 Unknown History omeprazole 40 mg capsule,delayed 40 mg PO DAILY 08/20/23 12/01/23 History release tramadol 50 mg tablet 50 mg PO QHS PRN PRN pain 08/20/23 Unknown History perphenazine 4 mg tablet 4 mg PO QHS 11/25/23 Unknown History Allergy/AdvReac Type Severity Reaction Status Date / Time atorvastatin (From Lipitor) Allergy Muscle Verified 12/01/23 08:25 soreness, Tremors escitalopram (From Lexapro) Allergy Headache Verified 12/01/23 08:25 Penicillins Allergy Hives Verified 12/01/23 08:25 pravastatin (From Pravachol) Allergy Muscle Verified 12/01/23 08:25 soreness, Tremors tolmetin Allergy Anaphylaxis Verified 12/01/23 08:25 meloxicam AdvReac Other Verified 12/01/23 08:25 Family History Mother Breast cancer Myocardial infarction Hypertension Father Colon cancer at 60yrs. Dx in 50's. Myocardial infarction Surgical History (Updated 11/25/23 @ 12:50 by Jonathan Ruiz) H/O total hip arthroplasty History of total left hip arthroplasty Hx of exploratory laparotomy Hx of release of tendon Hx of arthroscopy of left knee Hx of arthroscopy of right knee History of carpal tunnel surgery of right wrist Hx of arthroscopy of shoulder History of open reduction and internal fixation (ORIF) procedure Hx of right cataract extraction S/P partial mastectomy History of left hip replacement (01/2017) H/O rotator cuff surgery History of left heart catheterization (02/2013) Social History household members: none current occupational status: retired 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
[2023-12-01] MEDS: Lactated Ringers 1,000 ML 15 ML IV (08:36)
--- NOTE | 2023-12-01 09:00 | COLBX_PTH ---
PATIENT: SAMM KELLEY LOC: EN U#:[id number] AGE/SX: 58/M ROOM: RE12/01/[address]: Dr. Samm Guerrero MD : 1965 BED: DIS: 12/01/2023 SPEC #: [id number] RECD: 12/01/23 16:15 STATUS: SO LINSEY #: [id number] YI: 12/01/23 09:[address]: Samm Guerrero DEPT: SURGICAL PATHOLOGY RECD BY: Ankita Ash ENTERED: 12/02/23 07:32 SP TYPE: COLON BX OTHR DR: Dr. Jj Eason MD Tissues: Cecum, NOS Procedures: Surgery Specimen Level IV HEADER OPERATION: Colonoscopy with biopsy PRE-OP DIAGNOSIS: Screening TISSUE SUBMITTED: Cecal mucosal biopsy MICROSCOPIC DIAGNOSIS Cecal mucosa, biopsy: No significant pathologic change. See comment. Bette 12/03/2023 COMMENT Eosinophils increased in the mucosa. The significance of this unclear. Clinical correlation is suggested. MICROSCOPIC DESCRIPTION Slides are reviewed. GROSS DESCRIPTION Received in fixative is one container labeled with the patient's name and designated Cecal mucosal biopsy. The specimen consists of multiple irregular fragments of light liang soft tissue that in aggregate measure 0.8 x 0.3 x 0.1 cm. The specimen is totally submitted in one cassette. ALFONSO/ 12/02/2023 TC:5 CPT:8305
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
--- NOTE | 2023-12-01 10:17 | OP.CCLET_ITS ---
12/01/2023 Jj Eason [address] [place] [address] Re : Colonoscopy procedure for Samm Eastman Dear Dr. Eason This procedure was performed on Friday, December 01, 2023. My impressions and recommendations are as follows: Impressions : - Diverticulosis in the sigmoid colon and in the transverse colon. No specimens collected. - Likely benign polypoid lesion at the ileocecal valve. Biopsied. - The entire examined colon is normal on direct and retroflexion views. Recommendations : - Discharge patient to home (via wheelchair). - High fiber diet today. - No aspirin, ibuprofen, naproxen, or other non-steroidal anti-inflammatory drugs for 2 days after biopsy. - Await pathology results. - Repeat colonoscopy date to be determined after pending pathology results are reviewed for surveillance based on pathology results. - Telephone my office for pathology results in 1 week. My findings are described in the full procedure note, which is enclosed. If I can be of further assistance, please feel free to contact me at Doctor phone number(s): , Work: . Sincerely, Samm Guerrero MD 12/01/2023 10:17:04 AM This report has been signed electronically.
--- NOTE | 2023-12-01 10:17 | OP.COLON_ITS ---
Patient Name: Samm Eastman Procedure Date: 12/01/2023 8:48 AM Date of : 1965 Age: 58 Procedure: Colonoscopy Indications: Screening in patient at increased risk: Colorectal cancer in father before age 60 Providers: Samm Guerrero MD Referring MD: Jj Eason Medicines: See the Anesthesia note for documentation of the administered medications Patient Profile: Last Colonoscopy: none. The patient's first colonoscopy is today. Complications: No immediate complications. Estimated blood loss: Minimal. Procedure: Pre-Anesthesia Assessment: - The heart rate, respiratory rate, oxygen saturations, blood pressure, adequacy of pulmonary ventilation, and response to care were monitored throughout the procedure. After I obtained informed consent, the scope was passed under direct vision. Throughout the procedure, the patient's blood pressure, pulse, and oxygen saturations were monitored continuously. The was introduced through the anus and advanced to the cecum, identified by its appearance. The colonoscopy was somewhat difficult due to a tortuous colon. Successful completion of the procedure was aided by straightening and shortening the scope to obtain bowel loop reduction. The patient tolerated the procedure well. The quality of the bowel preparation was adequate to identify polyps greater than 5 mm in size. Scope In: 9:24:11 AM Scope Withdrawal Time 0 hours 17 minutes 58 seconds Scope Out: 10:07:27 AM Total Procedure Duration Time 0 hours 43 minutes 16 seconds Findings: The perianal and digital rectal examinations were normal. A few small-mouthed diverticula were found in the sigmoid colon and transverse colon. No biopsies or other specimens were collected for this exam. A 10 mm polypoid lesion was found at the ileocecal valve. The lesion was polypoid. No bleeding was present. Biopsies were taken with a cold forceps for histology. Estimated blood loss was minimal. The entire examined colon appeared normal on direct and retroflexion views. Impression: - Diverticulosis in the sigmoid colon and in the transverse colon. No specimens collected. - Likely benign polypoid lesion at the ileocecal valve. Biopsied. - The entire examined colon is normal on direct and retroflexion views. Recommendation: - Discharge patient to home (via wheelchair). - High fiber diet today. - No aspirin, ibuprofen, naproxen, or other non-steroidal anti-inflammatory drugs for 2 days after biopsy. - Await pathology results. - Repeat colonoscopy date to be determined after pending pathology results are reviewed for surveillance based on pathology results. - Telephone my office for pathology results in 1 week. Procedure Code(s): --- Professional --- 55655, Colonoscopy, flexible; with biopsy, single or multiple Diagnosis Code(s): --- Professional --- Z80.0, Family history of malignant neoplasm of digestive organs D49.0, Neoplasm of unspecified behavior of digestive system K57.30, Diverticulosis of large intestine without perforation or abscess without bleeding CPT copyright 2021 [employer]. All rights reserved. The codes documented in this report are preliminary and upon mixed crop and livestock farm worker review may be revised to meet current compliance requirements. Samm Guerrero MD 12/01/2023 10:17:04 AM This report has been signed electronically. Number of Addenda: 0 Note Initiated On: 12/01/2023 8:48 AM
--- NOTE | 2023-12-01 10:25 | PCM.POST.ANE ---
Anesthesia: Postop Eval I Current Vital Signs Temperature: 97.6 F Pulse Rate: 72 Blood Pressure: 148/89 Respiratory Rate: 16 Pulse Ox: 95 Oxygen Delivery Method: Nasal Cannula Oxygen Flow Rate (L/min): 4 Assessment Airway patent: Yes Spontaneous unlabored respirations: Yes Mental status: Awake and Calm nausea: No Vomiting: No Anesthesia Complication: No Fluid Hydration Crystalloid volume administer (ml): 600 Total IV fluid infused: 600 Progress Note Anesthesia document: Postop Eval 1 completed: Yes
--- NOTE | 2023-12-01 10:34 | PCM.POSTANE2 ---
Anesthesia Postop Eval I Sum Postop Eval Completion status Anesthesia document: Postop Eval 1 completed: Yes Anesthesia Postop Eval I Summary Anesthesia Postop Eval I Summary: Anesthesia Postop Eval I: Assessment Summary Airway patent Yes 12/01/23 10:26 [email or web address] Spontaneous unlabored Yes 12/01/23 10:26 [email or web address] respirations Mental status Awake,Calm 12/01/23 10:26 [email or web address] nausea No 12/01/23 10:26 [email or web address] Vomiting No 12/01/23 10:26 [email or web address] Anesthesia Postop Eval I: Fluid Summary Crystalloid volume administer 600 12/01/23 10:26 [email or web address] (ml) Colloids volume administered ( ml) Blood Product volume administered (ml) Total IV fluid infused 600 12/01/23 10:26 [email or web address] Anesthesia Postop Eval I: Summary Notes Anesthesia Complication No 12/01/23 10:26 [email or web address] Anesthesia Complication Comment: Post-operative progress note Anesthesia: Postop Eval II Evaluation Mental status: Awake Pain Level: 0 nausea: No Vomiting: No
== END 2023-12-01 11:22 | disposition home or self-care (01) ==
LOC: EN 08:07 → AC 08:08
PROVIDERS: PCP Family Medicine; Referring Provider Family Medicine; Visit Provider Surgery
PROC: 0DJD8ZZ Inspection of Lower Intestinal Tract, Via Natural or Artificial Opening Endoscopic (ICD-10-PCS; CPT 45378; principal; 2023-12-01 08:55)
DX: Z12.11 Encounter for screening for malignant neoplasm of colon (principal); F31.30 Bipolar disorder, current episode depressed, mild or moderate severity, unspecified; E66.01 Morbid (severe) obesity due to excess calories; Z68.42 Body mass index [BMI] 45.0-49.9, adult; K57.30 Diverticulosis of large intestine without perforation or abscess without bleeding; I10 Essential (primary) hypertension; E78.5 Hyperlipidemia, unspecified; F41.9 Anxiety disorder, unspecified; M51.36 Other intervertebral disc degeneration, lumbar region; H26.9 Unspecified cataract; G47.33 Obstructive sleep apnea (adult) (pediatric); M19.011 Primary osteoarthritis, right shoulder; M19.012 Primary osteoarthritis, left shoulder; Z79.899 Other long term (current) drug therapy; Z87.19 Personal history of other diseases of the digestive system; Z80.0 Family history of malignant neoplasm of digestive organs
CPT/HCPCS: 45380; 88305; J7120; J2405

== ENCOUNTER 2024-03-14 08:32 | Day surgery (SDC) | payer MEDICARE, SELFPAY ==
[2024-03-14] VITALS (7 sets, daily range): BP systolic 105–123; BP diastolic 70–87; PULSE 76–84; RESP 16–20; TEMP 36.2–37.3; O2SAT 92–95; BMI 49.0
--- NOTE | 2024-03-14 09:10 | RAD_ITS ---
PROCEDURE: Right hip injection DATE OF EXAMINATION: 03/14/2024 INDICATION: Male, 58 years old. Right hip injection Fluoroscopy time (if supplied): (2.6 seconds) minutes/seconds. Radiation dose: 1.35 mGy. Number of fluoroscopic images: One image was submitted. FINDINGS: Single view of the hip was obtained on a C-arm for hip injection. Image was obtained for documentation only. RAD/Fluoro Guided Needle Placement IMPRESSION: Intraprocedural exam as described above. Electronically Signed: Kevin Rene MD at 12:47 EST ,
--- NOTE | 2024-03-14 09:34 | PCM.PRE.AN2 ---
ASA Classification* ASA Classification ASA Classification: 3 Assessment & Plan Anesthesia* Anesthesia Assessment Anesthesia Assessment: Discussed sedation and/or anesthesia options, risks, benefits, and alternatives with patient/parents/legal guardian/POA. Questions invited. The patient/parents/legal guardian/POA seems to understand and agrees to proceed with anesthesia plan. Reviewed the physical assessment, medical history, allergy history and patient home medications list prior to surgery/procedure/anesthetic and documented any changes. Performed airway and anesthesia risk assessments. Anesthesia Type Anesthesia Type: MAC Anesthesia Focused Assessment* Temperature: 97.2 F Pulse Rate: 76 Blood Pressure: 123/81 Respiratory Rate: 16 Pulse Ox: 95 Airway Assessment Mouth opens: >3 cm Mallampati Score: II Focused Labs Anesthesia Preop lab: CBC WBC 10.6 K/mm3 (4.4-11.0) 11/12/23 14:15 RBC 4.75 M/mm3 (4.6-6.2) 11/12/23 14:15 Hgb 14.1 g/dL (13.0-16.5) 11/12/23 14:15 Hct 44.3 % (40-54) 11/12/23 14:15 Plt Count 270 K/mm3 (150-450) 11/12/23 14:15 CHEMISTRY Potassium 4.4 mmol/L (3.5-5.1) 11/12/23 14:15 Sodium 137 mmol/L (136-145) 11/12/23 14:15 Magnesium 2.3 mg/dL (1.6-2.6) 03/06/23 04:05 Phosphorus 4.3 mg/dL (2.5-4.9) 02/26/23 06:00 BUN 22 mg/dL (7-18) H 11/12/23 14:15 Creatinine 1.04 mg/dL (0.70-1.30) 11/12/23 14:15 Glucose 104 mg/dL (74-106) 11/12/23 14:15 POC Glucose 119 mg/dL (74-106) H 01/13/23 06:03 TSH 1.49 uIU/mL (0.358-3.74) 11/12/23 14:15 COAG PT 12.8 SECONDS (11.7-14.9) 05/27/22 13:36 Pre-Assessment Diagnosis/Proposed Procedure Planned Operative Procedure(s): Right hip injection Anesthesia History Anesthesia History - route rider: Anesthesia History - route rider Hx Hospitalization Yes: 01/17, 03/19 : [facility] 12/01/23 09:15 Any Problems With Anesthesia No 12/01/23 09:15 Cholinesterase deficiency No 12/01/23 09:15 You/Your Family Experience No 12/01/23 09:15 fever (hyperthermia) with Relationship Recent Exposure to Contagious No 03/14/24 08:56 Disease Does patient have nerve No 12/01/23 09:15 stimulator Patient instructed to have device shut off --Does patient have Pacemaker No 03/14/24 08:56 or ICD? When Was Last Pacemaker Check QUESTION #4 FULL TEXT: You/Your Family Experience fever (hyperthermia) with Anesthesia Last Oral Intake Last Oral intake: Last Oral Intake NPO since 23:00 03/14/24 08:56 Meds taken in AM with sips of Yes 03/14/24 08:56 water? Meds patient instructed to see med list 03/14/24 08:56 take am of surgery PONV PONV - route rider: PONV - route rider Female HX of Motion Sickness HX of N/V After Surgery Non-Smoker Duration of Surgery greater than 60 minutes Number of Risk Factors PONV Score Height & Weight Height & Weight: Anesthesia: Height & Weight Height 5 ft 10 in 03/14/24 08:56 Weight: 155 kg 03/14/24 08:56 Body Mass Index (BMI) 49.0 03/14/24 08:56 Respiratory Assessment Respiratory Assessment - route rider: Respiratory Tract Infection Hx - route rider Hx Respiratory Tract Infection No 12/01/23 09:15 STOP Sleep Apnea STOP Sleep Apnea - route rider: STOP Sleep Apnea - route rider Hx Hypertension Yes: CONTROLLED WITH MEDS 12/01/23 09:15 Hx Sleep Apnea Yes 12/01/23 10:30 CPAP No 12/01/23 10:16 BIPAP No 12/01/23 09:15 Do you snore loudly (louder than talking or can be heard Do you often feel tired/ fatigued/ sleepy during daytime? Has anyone observed you stop breathing during sleep? STOP Results QUESTION #5 FULL TEXT : Do you snore loudly (louder than talking or can be heard through closed doors)? Tobacco Use History Tobacco Use History - route rider: Tobacco Use History - route rider Tobacco Use Smoking Status Never smoker 12/01/23 09:15 Hx Tobacco Use No 11/25/23 12:42 Years Smoking Packs Smoked per Day Smoking Cessation Date was within the last 15 years Hx Smoking Cessation Date Hx Smoking Cessation Counseling Hematologic Medial History Hematologic Hx - route rider: Hematologic Medical Hx - belting inspector Hx of Blood Transfusion Hx of Transfusion in last 3 Months Date of Last Transfusion (if within last 3 months) Ever experience any problems with transfusion(s)? Specify any problems Hx of Preganancy in last 3 Months Nurse Filling Out Transfusion & Questions: Date: Time: Patient unable to answer at this time (ie. confused, unrespo /Reproduction History /Reproductive History - route rider: /Reproductive Hx- route rider Hx Now Gestational Age (in weeks): EDC: Hx Hx Para Hx Section SAB No 11/25/23 12:42 [facility] Medical History History of acute renal failure Family history of malignant neoplasm of colon in first degree relative diagnosed when younger than 60 years of age Family history of colon cancer in father Osteoarthritis of left knee Left knee pain Medical non-compliance Metabolic encephalopathy Abnormal lithium level in blood History of bipolar disorder Obesity, morbid, BMI 50 or higher Wears glasses Headache Loss of consciousness Pain Primary osteoarthritis, right shoulder Primary osteoarthritis, left shoulder Left shoulder pain Right shoulder pain Dizziness Degenerative joint disease (DJD) of hip Cancer Bipolar disorder Depression Anxiety Ambulates with cane Arthritis High cholesterol Back pain Injury of head and neck Hx of reactive hypoglycemia Non-smoker CPAP (continuous positive airway pressure) dependence Shortness of breath on exertion Chronic cough History of pain when walking History of edema Hypertension Cardiology follow-up encounter History of echocardiogram History of stress test Osteoarthritis of right hip Chest pain SOBOE (shortness of breath on exertion) Obesity Iliotibial band syndrome affecting left lower leg Disc degeneration, lumbar Osteoarthritis of right hip Breast mass, left Chronic pain of both knees Cataract, left eye Essential (primary) hypertension Body mass index (BMI) 35 or more Obesity Anxiety and depression RAY (obstructive sleep apnea) Palpitations Hyperlipidemia Home Medications ?Medication ?Instructions ?Recorded ?Last Taken ?Type multivitamin (Daily Multi-Vitamin 1 tab PO DAILY supplement 12/01/19 01/12/23 History tablet) lamotrigine 200 mg tablet 400 mg PO QHS skin 08/02/20 03/13/24 History acetaminophen 500 mg capsule 500 mg PO Q6H PRN Pain 05/21/21 08/31/23 05:00 History bupropion HCl 150 mg tablet,12 hr 150 mg PO BID depression 12/03/21 03/16/22 History sustained-release (Wellbutrin SR) ascorbic acid (vitamin C) 500 mg 1,000 mg PO DAILY vitamin 05/27/22 Unknown History tablet (Vitamin C) cholecalciferol (vitamin D3) 25 2,000 unit PO DAILY vitamin 05/27/22 12/01/23 History mcg (1,000 unit) chewable tablet (Vitamin D3) ramipril 10 mg capsule 10 mg PO BID bp 05/27/22 03/14/24 History tamsulosin 0.4 mg capsule 0.4 mg PO Q24H prostate 11/14/22 03/13/24 History gabapentin 800 mg tablet 800 mg PO QHS pain 02/25/23 03/13/24 History ezetimibe 10 mg tablet (Zetia) 10 mg PO DAILY cholesterol #90 tabs 04/07/23 03/14/24 Rx hydrochlorothiazide 25 mg tablet 25 mg PO DAILY 05/01/23 Unknown History nabumetone 750 mg tablet 750 mg PO BID 08/20/23 03/13/24 History omeprazole 40 mg capsule,delayed 40 mg PO DAILY 08/20/23 03/13/24 History release tramadol 50 mg tablet 50 mg PO QHS PRN PRN pain 08/20/23 Unknown History perphenazine 4 mg tablet 4 mg PO QHS 11/25/23 03/13/24 History amlodipine 5 mg tablet 5 mg PO QHS blood pressure #90 tabs 01/25/24 03/13/24 Rx carvedilol 6.25 mg tablet 9 mg PO BID 03/14/24 03/14/24 History Allergy/AdvReac Type Severity Reaction Status Date / Time atorvastatin (From Lipitor) Allergy Muscle Verified 03/14/24 08:53 soreness, Tremors escitalopram (From Lexapro) Allergy Headache Verified 03/14/24 08:53 Penicillins Allergy Hives Verified 03/14/24 08:53 pravastatin (From Pravachol) Allergy Muscle Verified 03/14/24 08:53 soreness, Tremors tolmetin Allergy Anaphylaxis Verified 03/14/24 08:53 meloxicam AdvReac Other Verified 03/14/24 08:53 Family History Mother Breast cancer Myocardial infarction Hypertension Father Colon cancer at 60yrs. Dx in 50's. Myocardial infarction Surgical History H/O total hip arthroplasty History of total left hip arthroplasty Hx of exploratory laparotomy Hx of release of tendon Hx of arthroscopy of left knee Hx of arthroscopy of right knee History of carpal tunnel surgery of right wrist Hx of arthroscopy of shoulder History of open reduction and internal fixation (ORIF) procedure Hx of right cataract extraction S/P partial mastectomy History of left hip replacement (01/2017) H/O rotator cuff surgery History of left heart catheterization (02/2013) Social History household members: none current occupational status: retired 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
[2024-03-14] MEDS: Bupivacaine 0.25% 30 ML Vial (10:06)
[2024-03-14] MEDS: MethylPREDNISolone Acetate 80 MG/ML Vial (10:06)
[2024-03-14] MEDS: Lidocaine 1% (5 ml sdv) 5 ML Vial (10:07)
--- NOTE | 2024-03-14 10:09 | OP.PCM_ITS ---
Operative Report (Standard) Operative Information Surgery/Procedure Performed: Right hip intra-articular steroid injection under fluoroscopic guidance Surgeon: Sin Murphy Date of Procedure: 03/14/24 Procedure Start Time: Procedure Stop Time: Pre-Operative Diagnosis: Osteoarthritis of the right hip Post-Operative Diagnosis: Osteoarthritis of the right hip Select all DRAINS/GRAFTS/IMPLANTS that apply: None Type of Anesthesia: Local MAC and MAC Estimated Blood Loss: < 1 cc Specimen collected: No Description of surgery: PREOPERATIVE DIAGNOSIS: Osteoarthritis of the right hip POSTOPERATIVE DIAGNOSIS: Osteoarthritis of the right hip PROCEDURE PERFORMED: Right hip intraarticular steroid injection under fluoroscopy guidance. ANESTHESIA: Local BLOOD LOSS: Minimal. COMPLICATIONS: None. DESCRIPTION OF PROCEDURE: History and physical of today was reviewed. Risks and benefits of the procedure were explained. The patient understood and agreed to proceed. Informed consent was obtained. IV inserted per routine protocol. The patient was taken to the operating room and placed in the supine position. The right hip area was prepped and draped in a sterile fashion using iodine x3. Under fluoroscopy guidance on AP view, the right hip joint was visualized. The skin and subcutaneous tissue was anesthetized with approximately 3 mL of 1% lidocaine using a 25-gauge regular needle approximately 3 cm cephalad to the right greater trochanter. Under direct visualization with fluoroscopy on an AP view, using a 22-gauge 5-inch spinal needle, the needle was advanced via the skin using the lateral approach. The tip of the needle was maneuvered and directed towards the superiormost aspect of the hip joint. Once the tip of the needle was at the vicinity of the joint, after negative aspiration for blood and positive aspiration of synovial fluid, a total of 1 mL of contrast was injected to confirm correct placement of the needle as well as halo spread around the hip joint. After repeated negative aspiration for blood and confirmation on AP as well as oblique view, a total of 10 mL of preservative-free 0.25% Marcaine with 80 mg of Depo-Medrol was injected easily. The needle was then removed intact. The patient experienced no sign or symptoms of intrathecal or intravascular injection. The patient experienced no paresthesia. The procedure was completed without any apparent difficulty or any complications. The patient appeared to tolerate it well. ASSESSMENT AND PLAN: This is a 58-year-old male with osteoarthritis of the right hip status post right hip intra-articular steroid injection under fluoroscopic guidance, patient will continue his current medications, patient will follow in approximately 2 weeks for reevaluation. Surgical Findings: see Learning Disabilities Specialist mask inspector: No Complications Complications: No Admit VTE Documentation VTE Present on Admission: No VTE Pharm Prophylaxis ordered?: No
--- NOTE | 2024-03-14 10:13 | PCM.POST.ANE ---
Anesthesia: Postop Eval I Current Vital Signs Temperature: 98.8 F Pulse Rate: 84 Blood Pressure: 110/87 Respiratory Rate: 20 Pulse Ox: 94 Assessment Airway patent: Yes Spontaneous unlabored respirations: Yes nausea: No Vomiting: No Anesthesia Complication: No Fluid Hydration Crystalloid volume administer (ml): 0 Total IV fluid infused: 0 Progress Note Anesthesia document: Postop Eval 1 completed: Yes
--- NOTE | 2024-03-14 10:26 | POSTOPAN2_ITS ---
Anesthesia Postop Eval I Sum Postop Eval Completion status Anesthesia document: Postop Eval 1 completed: Yes Anesthesia Postop Eval I Summary Anesthesia Postop Eval I Summary: Anesthesia Postop Eval I: Assessment Summary Airway patent Yes 03/14/24 10:14 PLUNGER SHOVEL OPERATOR.CSIR Spontaneous unlabored Yes 03/14/24 10:14 PLUNGER SHOVEL OPERATOR.CSIR respirations Mental status nausea No 03/14/24 10:14 PLUNGER SHOVEL OPERATOR.CSIR Vomiting No 03/14/24 10:14 PLUNGER SHOVEL OPERATOR.CSIR Anesthesia Postop Eval I: Fluid Summary Crystalloid volume administer 0 03/14/24 10:14 PLUNGER SHOVEL OPERATOR.CSIR (ml) Colloids volume administered ( ml) Blood Product volume administered (ml) Total IV fluid infused 0 03/14/24 10:14 PLUNGER SHOVEL OPERATOR.CSIR Anesthesia Postop Eval I: Summary Notes Anesthesia Complication No 03/14/24 10:14 PLUNGER SHOVEL OPERATOR.CSIR Anesthesia Complication Comment: Post-operative progress note Anesthesia: Postop Eval II Evaluation Mental status: Awake Pain Level: 0 nausea: No Vomiting: No
--- NOTE | 2024-03-14 10:26 | PCM.POSTANE2 ---
Anesthesia Postop Eval I Sum Postop Eval Completion status Anesthesia document: Postop Eval 1 completed: Yes Anesthesia Postop Eval I Summary Anesthesia Postop Eval I Summary: Anesthesia Postop Eval I: Assessment Summary Airway patent Yes 03/14/24 10:14 MATERIAL [email or web address] Spontaneous unlabored Yes 03/14/24 10:14 MATERIAL [email or web address].CSIR respirations Mental status nausea No 03/14/24 10:14 MATERIAL CHASER.CSIR Vomiting No 03/14/24 10:14 MATERIAL [email or web address].CSIR Anesthesia Postop Eval I: Fluid Summary Crystalloid volume administer 0 03/14/24 10:14 MATERIAL [email or web address].CSIR (ml) Colloids volume administered ( ml) Blood Product volume administered (ml) Total IV fluid infused 0 03/14/24 10:14 MATERIAL CHASER.CSIR Anesthesia Postop Eval I: Summary Notes Anesthesia Complication No 03/14/24 10:14 MATERIAL CHASER.CSIR Anesthesia Complication Comment: Post-operative progress note Anesthesia: Postop Eval II Evaluation Mental status: Awake Pain Level: 0 nausea: No Vomiting: No
== END 2024-03-14 10:41 | disposition home or self-care (01) ==
LOC: SDC 08:37 → AC 08:38
PROVIDERS: PCP Family Medicine; Referring Provider Anesthesiology Pain Medicine; Visit Provider Anesthesiology Pain Medicine
PROC: 3E0U3GC Introduction of Other Therapeutic Substance into Joints, Percutaneous Approach (ICD-10-PCS; CPT 20610; principal; 2024-03-14 10:05)
DX: M16.11 Unilateral primary osteoarthritis, right hip (principal); F31.9 Bipolar disorder, unspecified; E66.01 Morbid (severe) obesity due to excess calories; Z68.42 Body mass index [BMI] 45.0-49.9, adult; I10 Essential (primary) hypertension; F41.9 Anxiety disorder, unspecified; E78.00 Pure hypercholesterolemia, unspecified; M17.12 Unilateral primary osteoarthritis, left knee; M19.011 Primary osteoarthritis, right shoulder; M19.012 Primary osteoarthritis, left shoulder; G47.33 Obstructive sleep apnea (adult) (pediatric); Z88.0 Allergy status to penicillin; Z79.899 Other long term (current) drug therapy; Z96.642 Presence of left artificial hip joint
CPT/HCPCS: 20610; 76000; 77002; A4216; J2405

== ENCOUNTER → 2024-04-15 14:54 | Outpatient (REF) | payer BC, SELFPAY | LOC: MTLAB 14:54 | PROVIDERS: PCP Family Medicine; Referring Provider Family Medicine; Visit Provider Family Medicine | DX: I10 Essential (primary) hypertension (principal) | CPT/HCPCS: 36415; 80053; 85025 ==

== ENCOUNTER → 2024-04-15 | Outpatient (CLI) | payer MEDICARE, SELFPAY ==
[2024-04-15 17:35] LABS: Absolute Lymphocyte Count 2.17 X10^3/uL (0.83-4.51); Absolute Neutrophil Count 4.9 X10^3/uL (2.0-7.7); Basophil# 0.08 X10^3/uL; Eosinophil# 0.29 X10^3/uL; Eosinophils% 3.5 % (0-5); Hematocrit 44.9 % (40-54); Hemoglobin 14.3 g/dL (13.0-16.5); Lymphocyte # 2.17 X10^3/ul (0.83-4.51); Lymphocyte % 26.1 % (19-41); Mean Corp Hgb Conc 31.8 g/dL (32-36); Mean Corpuscular Hgb 29.5 pg (27.0-32.0); Mean Corpuscular Volume 92.8 fL (80-94); Mean Platelet Vol. 10.9 fl (6.2-12.0); Monocyte# 0.83 X10^3/uL; NRBC Flagged by Analyzer 0 % (0-5); Neutrophil # 4.87 X10^3/uL (2.7-7.7); Neutrophil % 58.6 % (47-70); Platelet Count 276 K/mm3 (150-450); RBC Distribution Width CV 12.8 % (11.6-14.6); RBC Distribution Width SD 43.9 fl (35.1-43.9); Red Blood Count 4.84 M/mm3 (4.6-6.2); White Blood Count 8.3 K/mm3 (4.4-11.0)
[2024-04-15 18:10] LABS: ALB/GLOB Ratio 1.1 RATIO (0.9-2.4); AST(SGOT) 30 U/L (15-37); Alanine Aminotransfer ALT/SGPT 56 U/L (16-61); Albumin, Serum 3.8 g/dL (3.2-5.0); Alkaline Phosphatase 74 U/L (45-117); Anion Gap 6 (5-15); BUN 17 mg/dL (7-18); Calcium,Total 9.5 mg/dL (8.5-10.1); Chloride 103 mmol/L (98-107); Creatinine, Serum 0.94 mg/dL (0.70-1.30); EST Glomerular Filtration Rate 87 mL/min (>60); Est Glom Filt Rate - Afr Amer 105 mL/min (>60); Globulin 3.5 g/dL (2.2-4.2); Glucose 95 mg/dL (74-106); Potassium 4.4 mmol/L (3.5-5.1); Protein, Total 7.3 g/dL (6.4-8.2); Sodium Level 135 mmol/L (136-145)
== END | disposition home or self-care (01) ==
LOC: MFPLAB 14:55
PROVIDERS: PCP Family Medicine; Referring Provider Family Medicine; Visit Provider Family Medicine
DX: I10 Essential (primary) hypertension (principal)
CPT/HCPCS: 36415; 80053; 85025

== ENCOUNTER 2024-05-02 08:37 | Day surgery (SDC) | payer MEDICARE, SELFPAY ==
[2024-05-02] VITALS (7 sets, daily range): BP systolic 141–162; BP diastolic 80–132; PULSE 68–77; RESP 14–16; TEMP 36.6–36.7; O2SAT 94–98; BMI 50.8
--- NOTE | 2024-05-02 09:13 | PRE.ANES_ITS ---
ASA Classification* ASA Classification ASA Classification: 3 Assessment & Plan Anesthesia* Anesthesia Assessment Anesthesia Assessment: Discussed sedation and/or anesthesia options, risks, benefits, and alternatives with patient/parents/legal guardian/POA. Questions invited. The patient/parents/legal guardian/POA seems to understand and agrees to proceed with anesthesia plan. Reviewed the physical assessment, medical history, allergy history and patient home medications list prior to surgery/procedure/anesthetic and documented any changes. Performed airway and anesthesia risk assessments. Anesthesia Type Anesthesia Type: MAC Anesthesia Focused Assessment* Temperature: 98 F Pulse Rate: 73 Blood Pressure: 141/101 Respiratory Rate: 16 Pulse Ox: 96 Airway Assessment Mouth opens: >3 cm Mallampati Score: II Focused Labs Anesthesia Preop lab: CBC WBC 8.3 K/mm3 (4.4-11.0) 04/15/24 14:56 RBC 4.84 M/mm3 (4.6-6.2) 04/15/24 14:56 Hgb 14.3 g/dL (13.0-16.5) 04/15/24 14:56 Hct 44.9 % (40-54) 04/15/24 14:56 Plt Count 276 K/mm3 (150-450) 04/15/24 14:56 CHEMISTRY Potassium 4.4 mmol/L (3.5-5.1) 04/15/24 14:56 Sodium 135 mmol/L (136-145) L 04/15/24 14:56 Magnesium 2.3 mg/dL (1.6-2.6) 03/06/23 04:05 Phosphorus 4.3 mg/dL (2.5-4.9) 02/26/23 06:00 BUN 17 mg/dL (7-18) 04/15/24 14:56 Creatinine 0.94 mg/dL (0.70-1.30) 04/15/24 14:56 Glucose 95 mg/dL (74-106) 04/15/24 14:56 POC Glucose 119 mg/dL (74-106) H 01/13/23 06:03 TSH 1.49 uIU/mL (0.358-3.74) 11/12/23 14:15 COAG PT 12.8 SECONDS (11.7-14.9) 05/27/22 13:36 Pre-Assessment Diagnosis/Proposed Procedure Planned Operative Procedure(s): bilateral shoulder injections, steriods Anesthesia History Anesthesia History - public health director: Anesthesia History - public health director Hx Hospitalization Yes: 01/17, 03/19 : [facility] 12/01/23 09:15 Any Problems With Anesthesia No 12/01/23 09:15 Cholinesterase deficiency No 12/01/23 09:15 You/Your Family Experience No 12/01/23 09:15 fever (hyperthermia) with Relationship Recent Exposure to Contagious No 05/02/24 09:09 Disease Does patient have nerve No 12/01/23 09:15 stimulator Patient instructed to have device shut off --Does patient have Pacemaker No 05/02/24 09:09 or ICD? When Was Last Pacemaker Check QUESTION #4 FULL TEXT: You/Your Family Experience fever (hyperthermia) with Anesthesia Last Oral Intake Last Oral intake: Last Oral Intake NPO since 06:30 05/02/24 09:09 Meds taken in AM with sips of Yes 05/02/24 09:09 water? Meds patient instructed to take am of surgery PONV PONV - public health director: PONV - public health director Female HX of Motion Sickness HX of N/V After Surgery Non-Smoker Duration of Surgery greater than 60 minutes Number of Risk Factors PONV Score Height & Weight Height & Weight: Anesthesia: Height & Weight Height 5 ft 10 in 05/02/24 09:09 Weight: 160.9 kg 05/02/24 09:09 Body Mass Index (BMI) 50.8 05/02/24 09:09 Respiratory Assessment Respiratory Assessment - public health director: Respiratory Tract Infection Hx - public health director Hx Respiratory Tract Infection No 12/01/23 09:15 STOP Sleep Apnea STOP Sleep Apnea - public health director: STOP Sleep Apnea - public health director Hx Hypertension Yes: CONTROLLED WITH MEDS 12/01/23 09:15 Hx Sleep Apnea Yes 03/14/24 10:21 CPAP No 03/14/24 10:11 BIPAP No 12/01/23 09:15 Do you snore loudly (louder than talking or can be heard Do you often feel tired/ fatigued/ sleepy during daytime? Has anyone observed you stop breathing during sleep? STOP Results QUESTION #5 FULL TEXT : Do you snore loudly (louder than talking or can be heard through closed doors)? Tobacco Use History Tobacco Use History - public health director: Tobacco Use History - public health director Tobacco Use Smoking Status Never smoker 12/01/23 09:15 Hx Tobacco Use No 11/25/23 12:42 Years Smoking Packs Smoked per Day Smoking Cessation Date was within the last 15 years Hx Smoking Cessation Date Hx Smoking Cessation Counseling Hematologic Medial History Hematologic Hx - public health director: Hematologic Medical Hx - clinical documentation consultant Hx of Blood Transfusion Hx of Transfusion in last 3 Months Date of Last Transfusion (if within last 3 months) Ever experience any problems with transfusion(s)? Specify any problems Hx of Preganancy in last 3 Months Nurse Filling Out Transfusion & Questions: Date: Time: Patient unable to answer at this time (ie. confused, unrespo /Reproduction History /Reproductive History - public health director: /Reproductive Hx- public health director Hx Now Gestational Age (in weeks): EDC: Hx Hx Para Hx Section SAB No 11/25/23 12:42 [facility] Medical History History of acute renal failure Family history of malignant neoplasm of colon in first degree relative diagnosed when younger than 60 years of age Family history of colon cancer in father Osteoarthritis of left knee Left knee pain Medical non-compliance Metabolic encephalopathy Abnormal lithium level in blood History of bipolar disorder Obesity, morbid, BMI 50 or higher Wears glasses Headache Loss of consciousness Pain Primary osteoarthritis, right shoulder Primary osteoarthritis, left shoulder Left shoulder pain Right shoulder pain Dizziness Degenerative joint disease (DJD) of hip Cancer Bipolar disorder Depression Anxiety Ambulates with cane Arthritis High cholesterol Back pain Injury of head and neck Hx of reactive hypoglycemia Non-smoker CPAP (continuous positive airway pressure) dependence Shortness of breath on exertion Chronic cough History of pain when walking History of edema Hypertension Cardiology follow-up encounter History of echocardiogram History of stress test Osteoarthritis of right hip Chest pain SOBOE (shortness of breath on exertion) Obesity Iliotibial band syndrome affecting left lower leg Disc degeneration, lumbar Osteoarthritis of right hip Breast mass, left Chronic pain of both knees Cataract, left eye Essential (primary) hypertension Body mass index (BMI) 35 or more Obesity Anxiety and depression RAY (obstructive sleep apnea) Palpitations Hyperlipidemia Home Medications ?Medication ?Instructions ?Recorded ?Last Taken ?Type multivitamin (Daily Multi-Vitamin 1 tab PO DAILY supplement 12/01/19 01/12/23 History tablet) lamotrigine 200 mg tablet 400 mg PO QHS skin 08/02/20 03/13/24 History acetaminophen 500 mg capsule 500 mg PO Q6H PRN Pain 05/21/21 08/31/23 05:00 History bupropion HCl 150 mg tablet,12 hr 150 mg PO BID depression 12/03/21 03/16/22 History sustained-release (Wellbutrin SR) ascorbic acid (vitamin C) 500 mg 1,000 mg PO DAILY vitamin 05/27/22 Unknown History tablet (Vitamin C) cholecalciferol (vitamin D3) 25 2,000 unit PO DAILY vitamin 05/27/22 12/01/23 History mcg (1,000 unit) chewable tablet (Vitamin D3) ramipril 10 mg capsule 10 mg PO BID bp 05/27/22 05/02/24 History tamsulosin 0.4 mg capsule 0.4 mg PO Q24H prostate 11/14/22 03/13/24 History gabapentin 800 mg tablet 800 mg PO QHS pain 02/25/23 03/13/24 History hydrochlorothiazide 25 mg tablet 25 mg PO DAILY 05/01/23 Unknown History nabumetone 750 mg tablet 750 mg PO BID 08/20/23 03/13/24 History omeprazole 40 mg capsule,delayed 40 mg PO DAILY 08/20/23 03/13/24 History release tramadol 50 mg tablet 50 mg PO QHS PRN PRN pain 08/20/23 Unknown History perphenazine 4 mg tablet 4 mg PO QHS 11/25/23 03/13/24 History carvedilol 12.5 mg tablet 12.5 mg PO BID 03/16/24 05/02/24 History amlodipine 5 mg tablet 5 mg PO QHS blood pressure #90 tabs 04/01/24 Unknown Rx ezetimibe 10 mg tablet (Zetia) 10 mg PO DAILY cholesterol #90 tabs 04/01/24 05/02/24 Rx Allergy/AdvReac Type Severity Reaction Status Date / Time atorvastatin (From Lipitor) Allergy Muscle Verified 05/02/24 09:07 soreness, Tremors escitalopram (From Lexapro) Allergy Headache Verified 05/02/24 09:07 Penicillins Allergy Hives Verified 05/02/24 09:07 pravastatin (From Pravachol) Allergy Muscle Verified 05/02/24 09:07 soreness, Tremors tolmetin Allergy Anaphylaxis Verified 05/02/24 09:07 meloxicam AdvReac Other Verified 05/02/24 09:07 Family History Mother Breast cancer Myocardial infarction Hypertension Father Colon cancer at 60yrs. Dx in 50's. Myocardial infarction Surgical History H/O total hip arthroplasty History of total left hip arthroplasty Hx of exploratory laparotomy Hx of release of tendon Hx of arthroscopy of left knee Hx of arthroscopy of right knee History of carpal tunnel surgery of right wrist Hx of arthroscopy of shoulder History of open reduction and internal fixation (ORIF) procedure Hx of right cataract extraction S/P partial mastectomy History of left hip replacement (01/2017) H/O rotator cuff surgery History of left heart catheterization (02/2013) Social History household members: none current occupational status: retired 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
--- NOTE | 2024-05-02 10:32 | RAD_ITS ---
STUDY: SHOULDER INJECTION RIGHT REASON FOR EXAM: Male, 58 years old. BILAT SHOULDER INJECTIONS -- RIGHT FLUOROSCOPY TIME (if supplied): ( 8 seconds ) minutes/seconds. 1.53 mGy. RAD/Fluoro Guided Needle Placement IMPRESSION: Intraoperative imaging provided for right shoulder injection. Electronically Signed: Daniel Torres MD at 12:06 EST ,
--- NOTE | 2024-05-02 10:32 | RAD_ITS ---
STUDY: SHOULDER INJECTION. LEFT REASON FOR EXAM: Male, 58 years old. BILAT SHOULDER INJECTIONS -- LEFT FLUOROSCOPY TIME (if supplied): ( 8 seconds ) minutes/seconds. 1.53 mGy. 2 images were submitted. RAD/Fluoro Guided Needle Placement IMPRESSION: Intraoperative imaging provided for left shoulder injection. Electronically Signed: Daniel Torres MD at 12:19 EST ,
[2024-05-02] MEDS: Lidocaine 1% (30 ml sdv) 30 ML Vial (10:39)
[2024-05-02] MEDS: MethylPREDNISolone Acetate 40 MG/ML Vial ×2 (10:40)
[2024-05-02] MEDS: Bupivacaine 0.25% 30 ML Vial (10:40)
--- NOTE | 2024-05-02 10:43 | OP.PCM_ITS ---
Operative Report (Standard) Operative Information Date of Procedure: 05/02/24 Pre-Operative Diagnosis: 1 Post-Operative Diagnosis: 1 Surgery/Procedure Performed: 1 apple solutions consultant: No Type of Anesthesia: MAC and Topical Anesth RN Documented Start/Stop Times: Operation Date: 05/02/24 10:20 Case Time Into Pre-Op 05/02/24 08:56 Out of Pre-Op 05/02/24 10:27 Anesthesia Start 05/02/24 10:31 Into Room 05/02/24 10:31 Procedure End 05/02/24 10:41 Procedure Start Time: 10:44 Procedure Stop Time: 10:44 Select all DRAINS/GRAFTS/IMPLANTS that apply: None Estimated Blood Loss: 1 Specimen collected: No Description of surgery: PREOPERATIVE DIAGNOSIS: Osteoarthritis of bilateral shoulder POSTOPERATIVE DIAGNOSIS: Osteoarthritis of bilateral shoulder PROCEDURE PERFORMED: Bilateral shoulder intraarticular steroid injection an terior approach under fluoroscopic guidance. ANESTHESIA: MAC. BLOOD LOSS: Minimal. COMPLICATIONS: None. DESCRIPTION OF PROCEDURE: History and physical of today was reviewed. Risks and benefits of the procedure were explained. The patient understood and agreed to proceed. Informed consent was obtained. IV inserted per routine protocol. The patient was taken to the operating room and placed in the supine position. The right shoulder area was prepped and draped in a sterile fashion using iodine x3. Under fluoroscopic guidance on AP view, the right shoulder joint was visualized. The skin and subcutaneous tissue was anesthetized with approximately 1 mL of 1% lidocaine using a 25-gauge regular needle at the anterior shoulder joint area. Under direct visualization with fluoroscopy on AP view, using a 22-gauge 3-1/2-inch spinal needle, the needle was advanced via the skin directed towards the intraarticular position at the supraspinatus level. Once the tip of the needle was at the vicinity of the shoulder joint, after negative aspiration for blood, positive aspiration for synovial fluid, a total of 1 mL of contrast was injected to confirm correct placement of the needle as well as anterior and posterior spread of the contrast at the shoulder joint. Cephalocaudal spread as well was visualized through the arthrogram. After confirmation on AP as well as oblique view and repeated negative aspiration for blood, a total of 4 mL of preservative-free 0.25% Marcaine with 40 mg of Depo- Medrol was injected easily. The needle was then removed intact, there is seem exec procedure was repeated on the left shoulder. The patient experienced no sign or symptoms of intravascular injection. The patient experienced no paresthesia. The procedure was completed without any apparent difficulty or any complications. The patient appeared to tolerate it well. Assessment and plan: This is a 58-year-old male with osteoarthritis of bilateral shoulder status post bilateral shoulder intra-articular steroid injection anterior approach under fluoroscopic guidance, patient will continue his current medications, patient will follow in approximately 2 weeks for reevaluation. Surgical Findings: 1 Complications Complications: No Admit VTE Documentation VTE Mechan Device Prophylaxis: None VTE Pharm Prophylaxis ordered?: No
--- NOTE | 2024-05-02 14:11 | PCM.POST.ANE ---
Anesthesia: Postop Eval I Current Vital Signs Temperature: 98 F Pulse Rate: 70 Blood Pressure: 158/80 Respiratory Rate: 16 Pulse Ox: 98 Oxygen Delivery Method: Room Air Assessment Airway patent: Yes Spontaneous unlabored respirations: Yes Mental status: Awake and Calm nausea: No Vomiting: No Anesthesia Complication: No Fluid Hydration Crystalloid volume administer (ml): 30 Total IV fluid infused: 30 Progress Note Anesthesia document: Postop Eval 1 completed: Yes
--- NOTE | 2024-05-02 14:12 | POSTOPAN2_ITS ---
Anesthesia Postop Eval I Sum Postop Eval Completion status Anesthesia document: Postop Eval 1 completed: Yes Anesthesia Postop Eval I Summary Anesthesia Postop Eval I Summary: Anesthesia Postop Eval I: Assessment Summary Airway patent Yes 05/02/24 14:11 RUG BACKING [email or web address] Spontaneous unlabored Yes 05/02/24 14:11 RUG BACKING [email or web address] respirations Mental status Awake,Calm 05/02/24 14:11 RUG BACKING [email or web address] nausea No 05/02/24 14:11 RUG BACKING [email or web address] Vomiting No 05/02/24 14:11 RUG BACKING [email or web address] Anesthesia Postop Eval I: Fluid Summary Crystalloid volume administer 30 05/02/24 14:11 RUG BACKING [email or web address] (ml) Colloids volume administered ( ml) Blood Product volume administered (ml) Total IV fluid infused 30 05/02/24 14:11 RUG BACKING [email or web address] Anesthesia Postop Eval I: Summary Notes Anesthesia Complication No 05/02/24 14:11 RUG BACKING [email or web address] Anesthesia Complication Comment: Post-operative progress note Anesthesia: Postop Eval II Evaluation Mental status: Awake and Calm Pain Level: 1 nausea: No Vomiting: No Complications Anesthesia Complication: No
--- NOTE | 2024-05-02 14:12 | PCM.POSTANE2 ---
Anesthesia Postop Eval I Sum Postop Eval Completion status Anesthesia document: Postop Eval 1 completed: Yes Anesthesia Postop Eval I Summary Anesthesia Postop Eval I Summary: Anesthesia Postop Eval I: Assessment Summary Airway patent Yes 05/02/24 14:11 WEATHERIZATION OPERATIONS [email or web address] Spontaneous unlabored Yes 05/02/24 14:11 WEATHERIZATION OPERATIONS MANAGER.[email or web address] respirations Mental status Awake,Calm 05/02/24 14:11 WEATHERIZATION OPERATIONS [email or web address] nausea No 05/02/24 14:11 WEATHERIZATION OPERATIONS [email or web address] Vomiting No 05/02/24 14:11 WEATHERIZATION OPERATIONS [email or web address] Anesthesia Postop Eval I: Fluid Summary Crystalloid volume administer 30 05/02/24 14:11 WEATHERIZATION OPERATIONS MANAGER.[email or web address] (ml) Colloids volume administered ( ml) Blood Product volume administered (ml) Total IV fluid infused 30 05/02/24 14:11 WEATHERIZATION OPERATIONS [email or web address] Anesthesia Postop Eval I: Summary Notes Anesthesia Complication No 05/02/24 14:11 WEATHERIZATION OPERATIONS [email or web address] Anesthesia Complication Comment: Post-operative progress note Anesthesia: Postop Eval II Evaluation Mental status: Awake and Calm Pain Level: 1 nausea: No Vomiting: No Complications Anesthesia Complication: No
== END 2024-05-02 11:24 | disposition home or self-care (01) ==
LOC: SDC 08:37 → AC 08:38
PROVIDERS: PCP Family Medicine; Referring Provider Anesthesiology Pain Medicine; Visit Provider Anesthesiology Pain Medicine
PROC: 3E0U3GC Introduction of Other Therapeutic Substance into Joints, Percutaneous Approach (ICD-10-PCS; CPT 20610; principal; 2024-05-02 10:15)
DX: M19.012 Primary osteoarthritis, left shoulder (principal); F31.9 Bipolar disorder, unspecified; E66.01 Morbid (severe) obesity due to excess calories; Z68.43 Body mass index [BMI] 50.0-59.9, adult; M19.011 Primary osteoarthritis, right shoulder; M51.17 Intervertebral disc disorders with radiculopathy, lumbosacral region; M79.7 Fibromyalgia; M16.0 Bilateral primary osteoarthritis of hip; M17.12 Unilateral primary osteoarthritis, left knee; M46.96 Unspecified inflammatory spondylopathy, lumbar region; M47.812 Spondylosis without myelopathy or radiculopathy, cervical region; M51.369 Other intervertebral disc degeneration, lumbar region without mention of lumbar back pain or lower extremity pain; M47.816 Spondylosis without myelopathy or radiculopathy, lumbar region; I10 Essential (primary) hypertension; F41.9 Anxiety disorder, unspecified; E78.00 Pure hypercholesterolemia, unspecified; G47.33 Obstructive sleep apnea (adult) (pediatric); Z88.0 Allergy status to penicillin; Z91.51 Personal history of suicidal behavior; Z79.891 Long term (current) use of opiate analgesic; Z79.899 Other long term (current) drug therapy; Z96.642 Presence of left artificial hip joint
CPT/HCPCS: 20610; 01620; 76000; 77002; A4216

== ENCOUNTER → 2024-07-06 | Outpatient (CLI) | payer MEDICARE, SELFPAY ==
--- NOTE | 2024-07-06 14:00 | NEURO ---
NCS and/or EMG Patient Report Ordering Doctor: Jean-Paul Estrada DATE OF SERVICE: 07/06/24 Samm presents with complaints of numbness and tingling, primarily in the left hand. Electrodiagnostic findings: Right median motor nerve demonstrates prolonged latency with normal amplitude and conduction velocity. Left median motor nerve demonstrates prolonged latency with normal amplitude and conduction velocity. Ulnar motor response is normal bilaterally. Normal median and ulnar F?waves. Prolonged median sensory latency at the wrist bilaterally. Normal ulnar and radial sensory responses. Needle EMG testing was performed in the upper limbs. All muscles tested showed no evidence of denervation with normal motor unit action potentials. Electrodiagnostic impression: This is an abnormal study in the upper limbs 1. Electrodiagnostic findings suggestive of bilateral median mononeuropathy. This is consistent with a mild bilateral carpal tunnel syndrome. Multi Select Codes Neurology Neurology Interp Codes: 68323-25 Musc test done w/n test comp (interp) (2) and 77422-60 Nrv cndj test 9-10 studies (interp)
== END | disposition home or self-care (01) ==
PROVIDERS: PCP Family Medicine; Referring Provider Psychiatry & Neurology Neurology; Visit Provider Psychiatry & Neurology Neurology
DX: R20.2 Paresthesia of skin (principal); M54.2 Cervicalgia; M54.12 Radiculopathy, cervical region
CPT/HCPCS: 95886; 95911

== ENCOUNTER → 2024-08-01 | Outpatient (CLI) | payer MEDICARE, SELFPAY ==
[2024-08-01 18:19] LABS: Absolute Lymphocyte Count 2.56 X10^3/uL (0.83-4.51); Absolute Neutrophil Count 5.4 X10^3/uL (2.0-7.7); Basophil# 0.08 X10^3/uL; Basophil% 0.9 % (0-1); Eosinophil# 0.21 X10^3/uL; Eosinophils% 2.3 % (0-5); Hematocrit 43.5 % (40-54); Hemoglobin 14.2 g/dL (13.0-16.5); Lymphocyte # 2.56 X10^3/ul (0.83-4.51); Lymphocyte % 28.1 % (19-41); Mean Corp Hgb Conc 32.6 g/dL (32-36); Mean Corpuscular Hgb 30.1 pg (27.0-32.0); Mean Corpuscular Volume 92.4 fL (80-94); Mean Platelet Vol. 10.8 fl (6.2-12.0); Monocyte# 0.77 X10^3/uL; Monocyte% 8.5 % (0-10); NRBC Flagged by Analyzer 0 % (0-5); Neutrophil # 5.41 X10^3/uL (2.7-7.7); Neutrophil % 59.4 % (47-70); Platelet Count 285 K/mm3 (150-450); RBC Distribution Width CV 12.9 % (11.6-14.6); RBC Distribution Width SD 43.8 fl (35.1-43.9); Red Blood Count 4.71 M/mm3 (4.6-6.2); White Blood Count 9.1 K/mm3 (4.4-11.0)
[2024-08-01 19:35] LABS: Hemoglobin A1c 5.9 % (<=5.6)
[2024-08-01 19:52] LABS: ALB/GLOB Ratio 1.6 RATIO (0.9-2.4); AST(SGOT) 24 U/L (<=37); Alanine Aminotransfer ALT/SGPT 32 U/L (<=46); Albumin, Serum 4.4 g/dL (3.5-5.0); Alkaline Phosphatase 84 U/L (40-129); Anion Gap 13 (5-15); BUN 20 mg/dL (4-19); BUN/Creat Ratio 21.1 RATIO (10-20); Calcium,Total 9.5 mg/dL (7.6-11.0); Chloride 101 mmol/L (98-108); Creatinine, Serum 0.93 mg/dL (0.70-1.20); EST Glomerular Filtration Rate 95 (>60); Globulin 2.8 g/dL (2.2-4.2); Glucose 95 mg/dL (70-99); Potassium 4.1 mmol/L (3.3-5.1); Protein, Total 7.3 g/dL (5.9-8.4); Sodium Level 138 mmol/L (133-145); Total Bilirubin 0.26 mg/dL (0.00-1.30)
[2024-08-01 20:09] LABS: PSA,Total - Annual Screen 0.79 ng/mL (0.02-4.00); Vitamin D,25 Hydroxy 34.8 ng/mL (30-100)
== END | disposition home or self-care (01) ==
LOC: MFPLAB 15:20
PROVIDERS: PCP Family Medicine; Referring Provider Family Medicine; Visit Provider Family Medicine
DX: E88.810 Metabolic syndrome (principal); I42.2 Other hypertrophic cardiomyopathy; E55.9 Vitamin D deficiency, unspecified; E34.9 Endocrine disorder, unspecified; Z12.5 Encounter for screening for malignant neoplasm of prostate
CPT/HCPCS: 36415; 80053; 82306; 83036; 84153; 84402; 84403; 85025; G0103

== ENCOUNTER 2024-08-15 07:09 | Day surgery (SDC) | payer MEDICARE, SELFPAY ==
--- NOTE | 2024-08-15 07:25 | PCM.PRE.AN2 ---
ASA Classification* ASA Classification ASA Classification: 2 Assessment & Plan Anesthesia* Anesthesia Assessment Anesthesia Assessment: Discussed sedation and/or anesthesia options, risks, benefits, and alternatives with patient/parents/legal guardian/POA. Questions invited. The patient/parents/legal guardian/POA seems to understand and agrees to proceed with anesthesia plan. Reviewed the physical assessment, medical history, allergy history and patient home medications list prior to surgery/procedure/anesthetic and documented any changes. Performed airway and anesthesia risk assessments. Anesthesia Type Anesthesia Type: MAC Anesthesia Focused Assessment* Airway Assessment Mouth opens: >3 cm Mallampati Score: II Focused Labs Anesthesia Preop lab: CBC WBC 9.1 K/mm3 (4.4-11.0) 08/01/24 15:08/01/24 RBC 4.71 M/mm3 (4.6-6.2) 08/01/24 15:22 08/01/24 Hgb 14.2 g/dL (13.0-16.5) 08/01/24 15:08/01/24 Hct 43.5 % (40-54) 08/01/24 15:22 08/01/24 Plt Count 285 K/mm3 (150-450) 08/01/24 15:22 08/01/24 CHEMISTRY Potassium 4.1 mmol/L (3.3-5.1) 08/01/24 15:22 08/01/24 Sodium 138 mmol/L (133-145) 08/01/24 15:22 08/01/24 Magnesium 2.3 mg/dL (1.6-2.6) 03/06/23 04:05 03/06/23 Phosphorus 4.3 mg/dL (2.5-4.9) 02/26/23 06:00 02/26/23 BUN 20 mg/dL (4-19) H 08/01/24 15:22 08/01/24 Creatinine 0.93 mg/dL (0.70-1.20) 08/01/24 15:22 08/01/24 Glucose 95 mg/dL (70-99) 08/01/24 15:22 08/01/24 POC Glucose 119 mg/dL (74-106) H 01/13/23 06:03 01/13/23 TSH 1.49 uIU/mL (0.358-3.74) 11/12/23 14:15 11/12/23 COAG PT 12.8 SECONDS (11.7-14.9) 05/27/22 13:36 05/27/22 Pre-Assessment Diagnosis/Proposed Procedure Planned Operative Procedure(s): Hip injection Anesthesia History 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 When Was Last Pacemaker Check QUESTION #4 FULL TEXT: You/Your Family Experience fever (hyperthermia) with Anesthesia Last Oral Intake Last Oral intake: Last Oral Intake NPO since Meds taken in AM with sips of water? Meds patient instructed to take am of surgery PONV PONV - production broaching machine operator: PONV - production broaching machine operator Female HX of Motion Sickness HX of N/V After Surgery Non-Smoker Duration of Surgery greater than 60 minutes Number of Risk Factors PONV Score Height & Weight Height & Weight: Anesthesia: Height & Weight Height 5 ft 10 in 08/04/24 11:20 Respiratory Assessment Respiratory Assessment - production broaching machine operator: Respiratory Tract Infection Hx - production broaching machine operator Hx Respiratory Tract Infection No 07/01/24 13:37 STOP Sleep Apnea STOP Sleep Apnea - production broaching machine operator: STOP Sleep Apnea - production broaching machine operator Hx Hypertension Yes: CONTROLLED WITH MEDS 07/01/24 13:37 Hx Sleep Apnea Yes 07/01/24 13:37 CPAP No 07/01/24 13:37 BIPAP No 07/01/24 13:37 Do you snore loudly (louder than talking or can be heard Do you often feel tired/ fatigued/ sleepy during daytime? Has anyone observed you stop breathing during sleep? STOP Results QUESTION #5 FULL TEXT : Do you snore loudly (louder than talking or can be heard through closed doors)? 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 Specify any problems Hx of Preganancy in last 3 Months Nurse Filling Out Transfusion & Questions: Date: Time: Patient unable to answer at this time (ie. confused, unrespo /Reproduction History /Reproductive History - production broaching machine operator: /Reproductive Hx- production broaching machine operator Hx Now Gestational Age (in weeks): EDC: Hx Hx Para Hx Section SAB No 07/01/24 13:37 PFSH Medical History History of acute renal failure Family history of malignant neoplasm of colon in first degree relative diagnosed when younger than 60 years of age Family history of colon cancer in father Osteoarthritis of left knee Left knee pain Medical non-compliance Metabolic encephalopathy Abnormal lithium level in blood History of bipolar disorder Obesity, morbid, BMI 50 or higher Wears glasses Headache Loss of consciousness Pain Primary osteoarthritis, right shoulder Primary osteoarthritis, left shoulder Left shoulder pain Right shoulder pain Dizziness Degenerative joint disease (DJD) of hip Cancer Bipolar disorder Depression Anxiety Ambulates with cane Arthritis High cholesterol Back pain Injury of head and neck Hx of reactive hypoglycemia Non-smoker CPAP (continuous positive airway pressure) dependence Shortness of breath on exertion Chronic cough History of pain when walking History of edema Hypertension Cardiology follow-up encounter History of echocardiogram History of stress test Osteoarthritis of right hip Chest pain SOBOE (shortness of breath on exertion) Obesity Iliotibial band syndrome affecting left lower leg Disc degeneration, lumbar Osteoarthritis of right hip Breast mass, left Chronic pain of both knees Cataract, left eye Essential (primary) hypertension Body mass index (BMI) 35 or more Obesity Anxiety and depression RAY (obstructive sleep apnea) Palpitations Hyperlipidemia Home Medications ?Medication ?Instructions ?Recorded ?Last Taken ?Type multivitamin (Daily Multi-Vitamin 1 tab PO DAILY supplement 12/01/19 01/12/23 History tablet) lamotrigine 200 mg tablet 400 mg PO QHS skin 08/02/20 03/13/24 History acetaminophen 500 mg capsule 500 mg PO Q6H PRN Pain 05/21/21 08/31/23 05:00 History bupropion HCl 150 mg tablet,12 hr 150 mg PO BID depression 12/03/21 03/16/22 History sustained-release (Wellbutrin SR) ascorbic acid (vitamin C) 500 mg 1,000 mg PO DAILY vitamin 05/27/22 Unknown History tablet (Vitamin C) cholecalciferol (vitamin D3) 25 2,000 unit PO DAILY vitamin 05/27/22 12/01/23 History mcg (1,000 unit) chewable tablet (Vitamin D3) ramipril 10 mg capsule 10 mg PO BID bp 05/27/22 05/02/24 History tamsulosin 0.4 mg capsule 0.4 mg PO Q24H prostate 11/14/22 03/13/24 History gabapentin 800 mg tablet 800 mg PO QHS pain 02/25/23 03/13/24 History hydrochlorothiazide 25 mg tablet 25 mg PO DAILY 05/01/23 Unknown History omeprazole 40 mg capsule,delayed 40 mg PO DAILY 08/20/23 03/13/24 History release carvedilol 12.5 mg tablet 12.5 mg PO BID 03/16/24 05/02/24 History amlodipine 5 mg tablet 5 mg PO QHS blood pressure #90 tabs 04/01/24 Unknown Rx ezetimibe 10 mg tablet (Zetia) 10 mg PO DAILY cholesterol #90 tabs 04/01/24 05/02/24 Rx flurbiprofen 100 mg tablet 100 mg PO TID PRN pain #90 tabs 06/13/24 Unknown Rx perphenazine 4 mg tablet 8 mg PO QHS 06/13/24 Unknown History tramadol 50 mg tablet 100 mg PO BID PRN pain 06/13/24 Unknown History Allergy/AdvReac Type Severity Reaction Status Date / Time atorvastatin (From Lipitor) Allergy Muscle Verified 08/04/24 11:24 soreness, Tremors escitalopram (From Lexapro) Allergy Headache Verified 08/04/24 11:24 Penicillins Allergy Hives Verified 08/04/24 11:24 pravastatin (From Pravachol) Allergy Muscle Verified 08/04/24 11:24 soreness, Tremors tolmetin Allergy Anaphylaxis Verified 08/04/24 11:24 meloxicam AdvReac Other Verified 08/04/24 11:24 Family History Mother Breast cancer Myocardial infarction Hypertension Father Colon cancer at 60yrs. Dx in 50's. Myocardial infarction Surgical History H/O total hip arthroplasty History of total left hip arthroplasty Hx of exploratory laparotomy Hx of release of tendon Hx of arthroscopy of left knee Hx of arthroscopy of right knee History of carpal tunnel surgery of right wrist Hx of arthroscopy of shoulder History of open reduction and internal fixation (ORIF) procedure Hx of right cataract extraction S/P partial mastectomy History of left hip replacement (01/2017) H/O rotator cuff surgery History of left heart catheterization (02/2013) Social History household members: none current occupational status: retired 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
[2024-08-15 07:37] VITALS: BP 156/108; PULSE 70; RESP 16; TEMP 36.4; O2SAT 95; BMI 49.0
--- NOTE | 2024-08-15 08:32 | RAD_ITS ---
PROCEDURE: FLUORO GUIDED NEEDLE PLACEMENT 08/15/2024 REASON FOR EXAM: HIP INJECTION RT TECHNIQUE: Intraoperative fluoroscopic services provided for right hip injection. 5.9 seconds of fluoroscopy. 2.39 mGy. 3 images were submitted. COMPARISON: None FINDINGS: Intraoperative imaging provided for right hip injection. RAD/Fluoro Guided Needle Placement IMPRESSION: Intraoperative imaging provided for right hip injection. Reading Location: [facility]
[2024-08-15] MEDS: Lidocaine 1% (5 ml sdv) 5 ML Vial (08:41)
[2024-08-15] MEDS: MethylPREDNISolone Acetate 80 MG/ML Vial (08:41)
[2024-08-15] MEDS: Bupivacaine 0.25% 30 ML Vial (08:41)
--- NOTE | 2024-08-15 08:46 | PCM.POST.ANE ---
Anesthesia: Postop Eval I Current Vital Signs Temperature: 97.7 F Pulse Rate: 74 Blood Pressure: 140/80 Respiratory Rate: 18 Pulse Ox: 93 Oxygen Delivery Method: Room Air Assessment Airway patent: Yes Spontaneous unlabored respirations: Yes Mental status: Awake and Calm nausea: No Vomiting: No Anesthesia Complication: No Fluid Hydration Crystalloid volume administer (ml): 0 Total IV fluid infused: 0 Progress Note Anesthesia document: Postop Eval 1 completed: Yes
[2024-08-15 08:50] VITALS: BP 140/80; BP 156/99; BP 158/95; PULSE 71; PULSE 74; RESP 18; TEMP 36.5; TEMP 37.1; O2SAT 92; O2SAT 93
[2024-08-15 08:55] VITALS: BP 147/91; BP 156/99; PULSE 69; RESP 16; O2SAT 93
--- NOTE | 2024-08-15 08:59 | PCM.OPRPT ---
Operative Report (Standard) Operative Information Date of Procedure: 08/15/24 Pre-Operative Diagnosis: 1 Post-Operative Diagnosis: 1 Surgery/Procedure Performed: 1 aeronautical research engineer: No Type of Anesthesia: Local MAC RN Documented Start/Stop Times: Operation Date: 08/15/24 08:40 Case Time Into Pre-Op 08/15/24 07:12 Out of Pre-Op 08/15/24 08:18 Anesthesia Start 08/15/24 08:34 Into Room 08/15/24 08:34 Procedure Start 08/15/24 08:41 Procedure End 08/15/24 08:43 Anesthesia End 08/15/24 08:47 Out of Room 08/15/24 08:47 Into Recovery 08/15/24 08:50 Procedure Start Time: 08:59 Procedure Stop Time: 08:59 Select all DRAINS/GRAFTS/IMPLANTS that apply: None Estimated Blood Loss: 0 Specimen collected: No Description of surgery: PREOPERATIVE DIAGNOSIS: Osteoarthritis of the right hip POSTOPERATIVE DIAGNOSIS: Osteoarthritis of the right hip PROCEDURE PERFORMED: Right hip intraarticular steroid injection under fluoroscopy guidance. ANESTHESIA: MAC BLOOD LOSS: Minimal. COMPLICATIONS: None. DESCRIPTION OF PROCEDURE: History and physical of today was reviewed. Risks and benefits of the procedure were explained. The patient understood and agreed to proceed. Informed consent was obtained. IV inserted per routine protocol. The patient was taken to the operating room and placed in the supine position. The right hip area was prepped and draped in a sterile fashion using iodine x3. Under fluoroscopy guidance on AP view, the right hip joint was visualized. The skin and subcutaneous tissue was anesthetized with approximately 3 mL of 1% lidocaine using a 25-gauge regular needle approximately 3 cm cephalad to the right greater trochanter. Under direct visualization with fluoroscopy on an AP view, using a 22-gauge 5-inch spinal needle, the needle was advanced via the skin using the lateral approach. The tip of the needle was maneuvered and directed towards the superiormost aspect of the hip joint. Once the tip of the needle was at the vicinity of the joint, after negative aspiration for blood and positive aspiration of synovial fluid, a total of 1 mL of contrast was injected to confirm correct placement of the needle as well as halo spread around the hip joint. After repeated negative aspiration for blood and confirmation on AP as well as oblique view, a total of 10 mL of preservative-free 0.25% Marcaine with 80 mg of Depo-Medrol was injected easily. The needle was then removed intact. The patient experienced no sign or symptoms of intrathecal or intravascular injection. The patient experienced no paresthesia. The procedure was completed without any apparent difficulty or any complications. The patient appeared to tolerate it well. ASSESSMENT AND PLAN: This is a 59-year-old male with osteoarthritis of the right hip status post right hip intra-articular steroid injection under fluoroscopic guidance, patient will continue his current medications, patient will follow in approximately 2 weeks for reevaluation. Surgical Findings: 0 Complications Complications: No Admit VTE Documentation VTE Present on Admission: No VTE Mechan Device Prophylaxis: None VTE Pharm Prophylaxis ordered?: No
[2024-08-15 09:00] VITALS: BP 156/99; BP 158/99; PULSE 66; RESP 16; TEMP 36.9; O2SAT 95
[2024-08-15 09:12] VITALS: BP 156/99
--- NOTE | 2024-08-15 09:36 | POSTOPAN2_ITS ---
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 AND FITTER.[email or web address] Spontaneous unlabored Yes 08/15/24 08:50 RIB MATCHER AND FITTER.[facility] respirations Mental status Awake,Calm 08/15/24 08:50 RIB MATCHER AND FITTER.OS nausea No 08/15/24 08:50 RIB MATCHER AND FITTER.OS Vomiting No 08/15/24 08:50 RIB MATCHER AND FITTER.[facility] Anesthesia Postop Eval I: Fluid Summary Crystalloid volume administer 0 08/15/24 08:50 RIB MATCHER AND FITTER.OS (ml) Colloids volume administered ( ml) Blood Product volume administered (ml) Total IV fluid infused 0 08/15/24 08:50 RIB MATCHER AND FITTER.[facility] Anesthesia Postop Eval I: Summary Notes Anesthesia Complication No 08/15/24 08:50 RIB MATCHER AND FITTER.[facility] Anesthesia Complication Comment: Post-operative progress note Anesthesia: Postop Eval II Evaluation Mental status: Awake Pain Level: 0 nausea: No Vomiting: No
--- NOTE | 2024-08-15 09:36 | PCM.POSTANE2 ---
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.[email or web address] Spontaneous unlabored Yes 08/15/24 08:50 REAGENT TENDER HELPER.[facility] respirations Mental status Awake,Calm 08/15/24 08:50 REAGENT TENDER HELPER.OS nausea No 08/15/24 08:50 REAGENT TENDER HELPER.OS Vomiting No 08/15/24 08:50 REAGENT TENDER HELPER.[facility] Anesthesia Postop Eval I: Fluid Summary Crystalloid volume administer 0 08/15/24 08:50 REAGENT TENDER HELPER.OS (ml) Colloids volume administered ( ml) Blood Product volume administered (ml) Total IV fluid infused 0 08/15/24 08:50 REAGENT TENDER HELPER.[facility] Anesthesia Postop Eval I: Summary Notes Anesthesia Complication No 08/15/24 08:50 REAGENT TENDER HELPER.[facility] Anesthesia Complication Comment: Post-operative progress note Anesthesia: Postop Eval II Evaluation Mental status: Awake Pain Level: 0 nausea: No Vomiting: No
== END 2024-08-15 09:51 | disposition home or self-care (01) ==
LOC: SDC 07:22 → AC 07:23
PROVIDERS: PCP Family Medicine; Referring Provider Anesthesiology Pain Medicine; Visit Provider Anesthesiology Pain Medicine
PROC: 3E0U3GC Introduction of Other Therapeutic Substance into Joints, Percutaneous Approach (ICD-10-PCS; CPT 20610; principal; 2024-08-15 08:35)
DX: M16.11 Unilateral primary osteoarthritis, right hip (principal); F31.9 Bipolar disorder, unspecified; I10 Essential (primary) hypertension; F41.9 Anxiety disorder, unspecified; E78.00 Pure hypercholesterolemia, unspecified; E66.9 Obesity, unspecified; G89.29 Other chronic pain; G47.33 Obstructive sleep apnea (adult) (pediatric); Z79.899 Other long term (current) drug therapy; Z96.642 Presence of left artificial hip joint
CPT/HCPCS: 20610; 01992; 76000; 77002; A4216

== ENCOUNTER → 2024-10-19 | Outpatient (CLI) | payer MEDICARE, SELFPAY ==
--- NOTE | 2024-10-19 07:58 | VDLE_ITS ---
Reason For Study Reason For Study: RLE Swelling RIGHT LEFT GSV is normal. FV is compressible, spontaneous, phasic, competent CFV is compressible, spontaneous, phasic, competent and demonstrates normal augmentation. and demonstrates normal augmentation. FV is compressible, spontaneous, phasic, competent and demonstrates normal augmentation. POP V is compressible, spontaneous, phasic, competent and demonstrates normal augmentation. T/P Trunk is compressible. PTV is compressible. RT PerV is compressible. Procedure This is a venous duplex using B-mode, color flow and spectral Doppler. Exam performed in department. Limited views were obtained of calf veins due to Edema and patient positioning. VL/Venous Duplex US, Unilateral Interpretation Summary Deep veins of the right lower extremity are patent and compressible segmentally . There is no evidence of right lower extremity deep vein thrombosis. The right great saphenous vein appears patent a nd compressible segmentally. Ordering Physician: Thomas Sanchez Referring Physician: Jj Eason Performed By: Brenden Jimenez RVT
== END | disposition home or self-care (01) ==
PROVIDERS: PCP Family Medicine; Referring Provider Student in an Organized Health Care Education/Training Program; Visit Provider Student in an Organized Health Care Education/Training Program
DX: M79.89 Other specified soft tissue disorders (principal); M79.604 Pain in right leg
CPT/HCPCS: 93971

== ENCOUNTER → 2024-11-08 | Outpatient (CLI) | payer MEDICARE, SELFPAY ==
--- NOTE | 2024-11-08 11:03 | MRI_ITS ---
PROCEDURE: BRAIN W/WO CONTRAST 11/08/2024 REASON FOR EXAM: TENSION HEADACHES; MILD COGNITIVE IMPAIRMENT TECHNIQUE: Multiplanar and multisequential MRI of the brain was performed without and with IV gadolinium based contrast administration. CONTRAST: Clariscan VOLUME: 30 mL COMPARISON: Prior brain MRIs dated 01/16/2023, 01/03/2021. FINDINGS: Ventricular and sulcal size and configuration are within normal limits for age. No regions of abnormal restricted diffusion to indicate recent infarct. No intracranial mass lesion or pathologic enhancement. No evidence of intracranial hemorrhage, extra-axial collection, or other acute abnormality. Preserved major vascular flow voids. Numerous patchy foci of T2 FLAIR hyperintensity throughout the supratentorial white matter, nonspecific and can be seen in a variety of clinical settings including associated with migraine headache, or may reflect moderate chronic microangiopathic change. Absent [place] ocular lenses. Well-aerated paranasal sinuses and mastoid air cells. MRI/Brain W/WO Contrast IMPRESSION: No acute intracranial abnormality. No mass or pathologic enhancement. Similar extensive patchy foci of T2 FLAIR hyperintensity throughout the cerebra l white matter, nonspecific but commonly seen with migraine headaches, or chronic microangiopathic changes. Reading Location: [id number]
--- NOTE | 2024-11-08 11:03 | MRI_ITS ---
PROCEDURE: BRAIN W/WO CONTRAST 11/08/2024 REASON FOR EXAM: TENSION HEADACHES; MILD COGNITIVE IMPAIRMENT TECHNIQUE: Multiplanar and multisequential MRI of the brain was performed without and with IV gadolinium based contrast administration. CONTRAST: Clariscan VOLUME: 30 mL COMPARISON: Prior brain MRIs dated 01/16/2023, 01/03/2021. FINDINGS: Ventricular and sulcal size and configuration are within normal limits for age. No regions of abnormal restricted diffusion to indicate recent infarct. No intracranial mass lesion or pathologic enhancement. No evidence of intracranial hemorrhage, extra-axial collection, or other acute abnormality. Preserved major vascular flow voids. Numerous patchy foci of T2 FLAIR hyperintensity throughout the supratentorial white matter, nonspecific and can be seen in a variety of clinical settings including associated with migraine headache, or may reflect moderate chronic microangiopathic change. Absent [place] ocular lenses. Well-aerated paranasal sinuses and mastoid air cells. MRI/Brain W/WO Contrast IMPRESSION: No acute intracranial abnormality. No mass or pathologic enhancement. Similar extensive patchy foci of T2 FLAIR hyperintensity throughout the cerebra l white matter, nonspecific but commonly seen with migraine headaches, or chronic microangiopathic changes. Reading Location: [id number]
== END | disposition home or self-care (01) ==
LOC: MRI 10:56
PROVIDERS: PCP Family Medicine; Referring Provider Psychiatry & Neurology Neurology; Visit Provider Psychiatry & Neurology Neurology
DX: G44.209 Tension-type headache, unspecified, not intractable (principal); G31.84 Mild cognitive impairment of uncertain or unknown etiology
CPT/HCPCS: 70553; A9575

== ENCOUNTER → 2024-11-10 | Outpatient (CLI) | payer MEDICARE, SELFPAY ==
--- NOTE | 2024-11-10 13:08 | ECHOCS_ITS ---
Reason For Study Reason For Study: EDEMA, SOB Procedure This was a 2D Doppler, Color Flow transthoracic echocardiogram. The study was technically limited. The study was technically difficult. Due to body habitus. Contrast injection was performed. Exam performed in department. Images #[id number] & #68 are of apical two chamber view. Left Ventricle Normal LV size. Moderate concentric left ventricular hypertrophy. Left ventricular systolic function is normal. The left ventricular ejection fraction is 55 %. No regional wall motion abnormalities noted. Right Ventricle Normal RV size. Normal systolic function. Atria Normal left atrium. Normal right atrium. Mitral Valve Normal mitral valve. Tricuspid Valve Normal tricuspid valve. Aortic Valve The aortic valve is not well visualized. Pulmonic Valve The pulmonic valve is not well visualized. Great Vessels Mildly dilated aortic root. The pulmonary artery is normal size. Pericardium/Pleural No pericardial effusion. Medication 22 gauge I.V. with prn adaptor inserted into right arm. Diluted definity 3.0ml given slow IV push to enhance endocardial definition. MMode/2D Measurements & Calculations LVIDd: 6.4 cm IVSd: 1.5 cm Ao root diam: 3.8 cm LVIDs: 4.8 cm LVPWd: 1.5 cm FS: 25.4 % LVAd ap4: 27.2 cm2 SV(MOD-sp4): 50.6 ml SV(sp4-el): 51.5 ml LVLd ap4: 7.6 cm SI(MOD-sp4): 19.0 ml/m2 EDV(MOD-sp4): 80.5 ml EDV(sp4-el): 82.1 ml LVAs ap4: 15.4 cm2 LVLs ap4: 6.6 cm ESV(MOD-sp4): 29.9 ml ESV(sp4-el): 30.6 ml EF(MOD-sp4): 62.8 % EF(sp4-el): 62.7 % LA dimension(2D): 4.1 cm Time Measurements MV dec time: 0.19 sec Doppler Measurements & Calculations MV E max ang: 60.0 cm/sec MV V2 max: 83.0 cm/sec MV P1/2t max ang: 69.5 cm/sec MV A max ang: 67.3 cm/sec MV max P.8 mmHg MV P1/2t: 38.1 msec MV E/A: 0.89 MV V2 mean: 43.1 cm/sec MV mean P.87 mmHg MV dec slope: 534.2 cm/sec2 MV V2 VTI: 19.8 cm MVA(P1/2t): 5.8 cm2 Ao V2 max: 96.7 cm/sec LV V1 max: 88.6 cm/sec PA V2 max: 109.5 cm/sec Ao max P.7 mmHg LV V1 max P.1 mmHg PA V2 mean: 68.7 cm/sec Ao V2 mean: 66.0 cm/sec LV V1 mean P.7 mmHg Ao mean P.9 mmHg LV V1 mean: 61.8 cm/sec Ao V2 VTI: 17.9 cm LV V1 VTI: 19.1 cm AV (velocity ratio): 1.1 ECHO/Echo Complete W/ Contrast Interpretation Summary Normal LV size. Left ventricular systolic function is normal. The left ventricular ejection fraction is 55 %. Moderate concentric left ventricular hypertrophy. Contrast injection was performed. Ordering Physician: Thomas Sanchez Referring Physician: Jj Eason Performed By: Audelia Snyder RDCS, RVT
== END | disposition home or self-care (01) ==
PROVIDERS: PCP Family Medicine; Referring Provider Student in an Organized Health Care Education/Training Program; Visit Provider Student in an Organized Health Care Education/Training Program
DX: R60.0 Localized edema (principal)
CPT/HCPCS: 93306; Q9957; A4216; C8929

== ENCOUNTER → 2024-11-25 | Outpatient (CLI) | payer MEDICARE, SELFPAY ==
[2024-11-25 14:04] LABS: Anion Gap 14 (5-15); BUN 26 mg/dL (4-19); BUN/Creat Ratio 22.2 RATIO (10-20); Calcium,Total 9.9 mg/dL (7.6-11.0); Carbon Dioxide 25.7 mmol/L (21.0-32.0); Chloride 99 mmol/L (98-108); Glucose 100 mg/dL (70-99); Potassium 4.2 mmol/L (3.3-5.1)
== END | disposition home or self-care (01) ==
LOC: LAB 12:37
PROVIDERS: PCP Family Medicine; Referring Provider Student in an Organized Health Care Education/Training Program; Visit Provider Student in an Organized Health Care Education/Training Program
DX: R60.0 Localized edema (principal)
CPT/HCPCS: 36415; 80048

== ENCOUNTER → 2025-01-02 | Outpatient (CLI) | payer MEDICARE, SELFPAY | END | disposition home or self-care (01) | LOC: MTLAB 15:56 | PROVIDERS: PCP Family Medicine; Referring Provider Psychiatry & Neurology Neurology; Visit Provider Psychiatry & Neurology Neurology | DX: Z00.00 Encounter for general adult medical examination without abnormal findings (principal) ==

== ENCOUNTER → 2025-01-02 | Outpatient (CLI) | payer MEDICARE, SELFPAY ==
[2025-01-02 17:09] LABS: Ionized Calcium Order ORDER TUBE
[2025-01-02 19:22] LABS: AST(SGOT) 32 U/L (<=37); Alanine Aminotransfer ALT/SGPT 32 U/L (<=46); Albumin, Serum 4.5 g/dL (3.5-5.0); Alkaline Phosphatase 65 U/L (40-129); Anion Gap 17 (5-15); BUN 23 mg/dL (4-19); BUN/Creat Ratio 20.0 RATIO (10-20); Calcium,Total 9.7 mg/dL (7.6-11.0); Carbon Dioxide 21.8 mmol/L (21.0-32.0); Chloride 98 mmol/L (98-108); Globulin 2.7 g/dL (2.2-4.2); Glucose 99 mg/dL (70-99); Magnesium 2.2 mg/dL (1.5-2.2); Potassium 3.4 mmol/L (3.3-5.1); Vitamin B12 1182 pg/mL (180-914)
[2025-01-02 19:50] LABS: PTHIN 13 pg/mL (11-61)
[2025-01-02 20:28] LABS: Hematocrit 41.0 % (40-54); Hemoglobin 13.7 g/dL (13.0-16.5); Immature Granulocytes Count 0.040 X10^3/uL (0.0-0.0); Mean Corp Hgb Conc 33.4 g/dL (32-36); Mean Corpuscular Volume 88.0 fL (80-94); Mean Platelet Vol. 11.2 fl (6.2-12.0); NRBC Flagged by Analyzer 0 % (0-5); Platelet Count 258 K/mm3 (150-450); RBC Distribution Width CV 13.2 % (11.6-14.6); RBC Distribution Width SD 42.5 fl (35.1-43.9); Red Blood Count 4.66 M/mm3 (4.6-6.2); White Blood Count 8.4 K/mm3 (4.4-11.0)
[2025-01-06 12:08] LABS: ANTINUCLEAR ANTIBODIES DIRECT Negative (Negative); Vitamin D 1,25-Dihydroxy 24.4 pg/mL (24.8-81.5)
[2025-01-11 18:08] LABS: Anti-Cardiolipin Ab, IgA, Qn < 9 APL U/mL (0-11); Anti-Cardiolipin Ab, IgG, Qn < 9 GPL U/mL (0-14); Anti-Cardiolipin Ab, IgM, Qn < 9 MPL U/mL (0-12); Anti-Thrombin 3 AG, Immunol 82 % (72-124); Antithrombin 3 Function 108 % (75-135); Complement CH50 > 60 U/mL (>41); Dilute Russell Viper Venom 42.0 sec (0.0-47.0); Folate, Hemolysate Test 573.0 ng/mL (Not Estab.); Folate, RBC (Hct) Test 43.5 % (37.5-51.0); Folates, RBC Test 1317 ng/mL (>498); HLA B27 Negative (.); Interpretation Comment: (.); PTT-LA 35.3 sec (0.0-43.5); Protein C, Functional 111 % (73-180); Protein S, Funtional 107 % (63-140); VITAMIN B6 35.9 ug/L (3.4-65.2); Vitamin B1, Thiamine 180.6 nmol/L (66.5-200.0)
== END | disposition home or self-care (01) ==
LOC: MTLAB 16:03
PROVIDERS: PCP Family Medicine; Referring Provider Psychiatry & Neurology Neurology; Visit Provider Psychiatry & Neurology Neurology
DX: I67.9 Cerebrovascular disease, unspecified (principal); G23.8 Other specified degenerative diseases of basal ganglia; R20.2 Paresthesia of skin; M85.80 Other specified disorders of bone density and structure, unspecified site; I10 Essential (primary) hypertension
CPT/HCPCS: 36415; 80053; 81240; 81241; 81374; 82175; 82330; 82607; 82652; 82747; 83655; 83735; 83825; 83970; 84100; 84207; 84425; 84443; 85014; 85025; 85300; 85301; 85302; 85303; 85305; 85306; 85652; 86038; 86147; 86160; 86162; 86225

== ENCOUNTER → 2025-03-21 | Outpatient (CLI) | payer MEDICARE, SELFPAY ==
--- NOTE | 2025-03-21 18:23 | CT_ITS ---
PROCEDURE: CHEST WITHOUT CONTRAST 03/21/2025 REASON FOR EXAM: SOB TECHNIQUE: Chest CT without contrast. Coronal and Sagittal reconstruction series were provided. One or more dose reduction techniques were used (e.g., Automated exposure control, adjustment of the mA and/or kV according to patient size, use of iterative reconstruction technique RADIATION DOSE SUMMARY: CTDlvol: 20.14 mGy DLP: 795.21 mGycm COMPARISON: None. FINDINGS: Lower neck:The thyroid gland is normal. There is no supraclavicular lymphadenopathy. Mediastinum:There is a 12 x 9 mm right supraclavicular lymph node. Heart and Aorta:The heart size is normal. There is no pericardial effusion. There is moderate calcific vascular disease of the coronary arteries and thoracic aorta. Esophagus:Normal. Upper Abdomen:There is calcific vascular disease of the visualized abdominal aorta. Chest wall:The visualized soft tissues of the chest wall appear unremarkable. There is no axillary lymphadenopathy. There are findings of DISH throughout the thoracic spine. Lungs, airways and pleura: There is a 5 x 3 mm triangular pleural-based nodule in the middle lobe of the right lung consistent with a lymph node (image 62). There is a 6 x 4 mm soft tissue density nodule in the middle lobe of the right lung (image 66). There is a 6 x 3 mm pleural-based soft tissue density nodule in the lower lobe of the left lung (image 100). There is a linear scar in the lower lobe of the right lung. There are benign calcified granulomas in both lungs. CT/Chest without Contrast IMPRESSION: 1. Soft tissue density pulmonary nodules as described. 2. There is no significant lung disease. 3. There is calcific vascular disease. 4. Other findings as noted. Recommendation: Follow up low-dose chest CT in 12 months. Reading Location: [id number]
--- OUTSIDE RECORDS SUMMARY | 2025-03-21 19:18 | XMS RPT_ITS | CCD ---
Author Organization [facility] Inform ion [facility] Care Team Providers Care Bevel Operator Name Role Phone Rupinder Adame Firmonty Unavailable Unavailable Rupinder Adame Firas Unavailable Unavailable Stone Rodarte Unavailable Unavailable Sokari, Telemate Unavailable Unavailable Sokari, Telemate Unavailable Unavailable NO, PHYSICIAN Primary Care Unavailable OSKAR CHARLES Attending Unav ailable OSKAR CHARLES Attending Unav ailable NO, PHYSICIAN Primary Care Unavailable No, Physician Primary Care Provider Unavailabl e No, Physician Primary Care Provider Unavailabl e NO, PHYSICIAN Primary Care Unavailable AUSTIN NATARAJAN Referring Unavailable AUSTIN NATARAJAN Admitting Unavailable AUSTIN NATARAJAN Attending Unavailable NO, PHYSICIAN Primary Care Unavailable NATARAJANAUSTIN Attending Unavailable NO, PHYSICIAN Primary Care Unavailable NO, PHYSICIAN Primary Care Unavailable AUSTIN NATARAJAN Referring Unavailable AUSTIN NATARAJAN Admitting Unavailable NO, PHYSICIAN Primary Care Unavailable AUSTIN NATARAJAN Attending Unavailable NATARAJANAUSTIN Referring Unavailable NATARAJANAUSTIN Admitting Unavailable NO, PHYSICIAN Primary Care Unavailable NATARAJANAUSTIN Attending Unavailable NO, PHYSICIAN Primary Care Unavailable NATARAJAN AUSTIN ARMEN Referring Unavailable NATARAJAN, AUSTIN ARMEN Admitting Unavailable NO, PHYSICIAN Primary Care Unavailable NO, PHYSICIAN Primary Care Unavailable AUSTIN NATARAJAN Attending Unavailable Jj Eason Unavailable PROVIDER, UNKNOWN Attending Unavailable PROVIDER, UNKNOWN Admitting Unavailable Jj Eason MD Primary Care Provider Dr. Jj Eason Primary Care Provider Dr. Jj Eason Referring Provider Saud SANDY, CPR AMBULANCE DRIVERMariannC Janet Attending Provider Dr. Wiliam Bedolla Attending Provider Dr. Hermilo Mendez Attending Provider MD Darwin Badillo Attending Provider Dr. Jj Eason Primary Care Provider Dr. Jj Eason Referring Provider Dr. Jj Eason Primary Care Provider Dr. jJ Eason Referring Provider MD Darwin Badillo Attending Provider Dr. Hermilo Mendez Attending Provider Dr. Jj Eason Primary Care Provider Dr. Jj Eason Referring Provider MD Darwin Badillo Attending Provider Dr. Jj Eason Primary Care Provider Dr. Jj Eason Referring Provider Dr. Wiliam Bedolla Attending Provider Dr. Kun Garrett Emergency Provider Dr. Bubba Bailon Attending Provider Dr. Bubba Bailon Admit Provider Dr. Bubba Bailon Other Provider Dr. Dara Robert Attending Provider Unavailable Dr. Dara Robert Other Provider Unavailable Dr. Jj To Attending Provider Dr. Jj To Other Provider Dr. Nate Santana Emergency Provider Dr. Aneudy Caseit Provider Dr. Aneudy Case Attending Provider Dr. Aneudy Case Other Provider Dr. Jacob Sung Attending Provider Dr. Jacob Sung Other Provider Dr. Cipriano Carlson Other Provider Dr. Jj Eason Primary Care Provider Dr. Jj Eason Referring Provider Dr. Wiliam Bedolla Attending Provider Dr. Kun Garrett Emergency Provider Dr. Bubba Bailon Attending Provider Dr. Bubba Bailon Admit Provider Dr. Bubba Bailon Other Provider Dr. Dara Robert Attending Provider Unavailable Dr. Dara Robert Other Provider Unavailable Dr. Jj To Attending Provider Dr. Jj To Other Provider Dr. Nate Santana Emergency Provider [facility][phone] Dr. Aneudy Case Admit Provider Dr. Aneudy Case Attending Provider Dr. Aneudy Case Other Provider Dr. Jacob Sung Attending Provider Dr. Jacob Sung Other Provider Dr. Cipriano Carlson Other Provider Dr. Courtney Story Attending Provider Dr. Dara Paul Admit Provider UnavailDr. Dara Anguiano Other Provider Unavailabl e Dr. Malathi Victor Attending Provider Dr. Malathi Victor Other Provider JJ EASON Primary Care Unavailable Dr. Jj Eason Primary Care Provider Dr. Courtney Story Attending Provider Dr. Jacob Sung Referring Provider Dr. Dara Paul Referring Provider Unavail able JJ EASON Primary Care Unavailable DACIA TOBIAS Attending Unavailable AAMIR GASCA Attending Unavailable AAMIR GASCA Admitting Unavailable JJ EASON Primary Care Unavailable Dr. Jj Eason Primary Care Provider Dr. Jj Eason Referring Provider 1([facility])[phone] Junito Butts Attending Provider 1([facility])[phone] Hermilo Mendez Attending Provider 1([facility])-[phone] Jenaro JULIAN, Jj Manriquez Primary Care Provider 1([facility])[phone] Dr. Jj Eason Primary Care Provider Dr. Jj Eason Referring Provider 1([facility])[phone] Junito Butts Attending Provider Dr. Hermilo Mendez Attending Provider 1([facility])-[phone] MD Darwin Badillo Attending Provider 1([facility])- [phone] Dr. Wiliam Bedolla Attending Provider 1([facility]) -[phone] Saud CPR AMBULANCE DRIVER, CPR AMBULANCE DRIVER-C Janet Attending Provider Dr. Jj Mejia Attending Provider 1([facility])-[phone] Saud CPR AMBULANCE DRIVER, CPR AMBULANCE DRIVER-C Janet Referring Provider Dr. Jj Eason Primary Care Provider 1([facility])[phone] Dr. Jj Eason Referring Provider 1([facility])[phone] Junito Butts Attending Provider 1([facility])-[phone] Jenaro JULIAN, Jj Manriquez Primary Care Provider [phone] Jj Eason MD Primary Care Provider 1([facility])[phone] Dr. Jj Eason MD Attending Provider 1([facility])[phone] Jenaro JULIAN, Dr. Gardner Referring Provider [phone] Sin Murphy MD Attending Provider Dr. Sin Murphy MD Referring Provider 1([facility] )[phone] Darwin Badillo MD Attending Provider 1([facility])[phone] Sean JULIAN, Dr. Jeong Attending Provider Sean JULIAN, Dr. Jeong Referring Provider 1([facility] )[phone] Sean JULIAN, Dr. Jeong Other Provider 1([facility])[phone] Rupinder JULIAN, Dr. Griffith Attending Provider 1([facility])[phone] Jenaro JULIAN, Dr. Gardner Primary Care Provider Jenaro JULIAN, Dr. Gardner Referring Provider [phone] Jenaro JULIAN, Dr. Gardner Attending Provider Jenaro JULIAN, Dr. Gardner Primary Care Provider Jefrfey JULIAN, Dr. Vogt Attending Provider Jeffrey JULIAN, Dr. Vogt Referring Provider [phone] Thomas Franklin Attending Provider [phone] Jenaro JULIAN, Dr. Gardner Primary Care Provider Sean JULIAN, Dr. Jeong Attending Provider [phone] Jenaro JULIAN, Dr. Gardner Referring Provider [phone] Darwin Badillo MD Attending Provider Thomas Franklin Referring Provider [phone] Jackie JULIAN, Dr. Gardner Attending Provider [phone] Jenaro JULIAN, Dr. Gardner Primary Care Provider Sean JULIAN, Dr. Jeong Attending Provider [phone] Sean JULIAN, Dr. Jeong Referring Provider [phone] Andrea JULIAN, Dr. Akhtar Attending Provider [phone] Jenaro JULIAN, Dr. Gardner Primary Care Provider Jenaro JULIAN, Dr. Gardner Referring Provider [phone] Darwin Badillo MD Attending Provider Maria Luisa Varma Jr V Referring Unavailabl Jj Lynne Primary Care Unavailable Genoveva Parkinson Attending Unavailable Jenaro JULIAN, Dr. Gardner Primary Care Provider Dr. Jj Eason MD Referring Provider [phone] Jj Eason MD Primary Care Provider Maria Luisa Varma Jr, MD Unavailable Unavailab JJ Brown Primary Care Unavailable [facility], [facility] Consulting Unavaila ble MARIA LUISA VARMA Attending Unavailable MARIA LUISA VARMA Admitting Unavailable Mary Jr, Maria Luisa V Attending Unavailabl e Eason, Jj Referring Unavailable Eason, Jj Primary Care Unavailable Mary Jr, Maria Luisa V Admitting Unavailabl e Mary Jr, Maria Luisa V Attending Unavailabl e Eason, Jj Primary Care Unavailable Mary Jr, Maria Luisa V Admitting Unavailabl e Mary Jr, Maria Luisa V Attending Unavailabl e Eason, Jj Primary Care Unavailable Mary Jr, Maria Luisa V Admitting Unavailabl e Mary Jr, Maria Luisa V Attending Unavailabl e Eason, Jj Primary Care Unavailable Jagdeep Keller Attending Unavailable Eason, Jj Referring Unavailable Eason, Jj Primary Care Unavailable Mary Carr MD, Maria Luisa Unavailable Unavailab carla Eason MD, Dr. Gardner Primary Care Physician Thomas Franklin Attending Physician [phone] Dr. Jj Mejia MD Attending Physician Dr. Jean-Paul Estrada MD Attending Physician Andrea JULIAN, Dr. Akhtar Attending Physician Dr. Jj Eason MD Referring Provider Mary Jr, Maria Luisa V Attending Unavailabl e Eason, Jj Referring Unavailable Mary Jr, Mraia Luisa V Attending Unavailabl e Eason, Jj Referring Unavailable Eason, Jj Primary Care Unavailable Mary Jr, Maria Luisa V Attending Unavailabl e Eason, Jj Referring Unavailable Eason, Jj Primary Care Unavailable Mary Jr, Maria Luisa V Attending Unavailabl e Eason, Jj Referring Unavailable Eason, Jj Primary Care Unavailable Mary Jr, Maria Luisa V Attending Unavailabl e Eason, Jj Referring Unavailable Eason, Jj Primary Care Unavailable Laith Avila Attending Unavailable Mary Jr, Maria Luisa V Referring Unavailabl e Eason, Jj Primary Care Unavailable Mary Jr, Maria Luisa V Attending Unavailabl e Eason, Jj Referring Unavailable Eason, Jj Primary Care Unavailable Mary Jr, Maria Luisa V Attending Unavailabl e Eason, Jj Referring Unavailable Eason, Jj Primary Care Unavailable Mary Jr, Maria Luisa V Attending Unavailabl e Eason, Jj Referring Unavailable Eason, Jj Primary Care Unavailable Mary Jr, Maria Luisa V Admitting Unavailabl e Mary Jr, Maria Luisa V Attending Unavailabl e Eason, Jj Primary Care Unavailable Mary Jr, Maria Luisa V Admitting Unavailabl e Mary Jr, Maria Luisa V Attending Unavailabl e Easno, Jj Primary Care Unavailable Mary Jr, Maria Luisa V Admitting Unavailabl e Mary Jr, Maria Luisa V Attending Unavailabl e Eason, Jj Primary Care Unavailable Mary Carr MD, Maria Luisa Unavailable Unavailab le NEHEMIAS NEUMANN Attending Unavailable EASON, JJ A Primary Care Unavailable MARY, MARIA LUISA Referring Unavailable NEHEMIAS NEUMANN Attending Unavailable EASON, JJ A Primary Care Unavailable EASON, JJ A Primary Care Unavailable NEHEMIAS NEUMANN Attending Unavailable Mary Carr MD, Maria Luisa Unavailable Unavailab carla Varma Jr, MD, Maria Luisa Unavailable Unavailab carla Varma Jr, MD, Maria Luisa Unavailable Unavailab carla Varma Jr, MD, Maria Luisa Unavailable Unavailab carla Varma Jr, MD, Maria Luisa Unavailable Unavailab carla Varma Jr, MD, Maria Luisa Unavailable Unavailab carla Varma Jr, MD, Maria Luisa Unavailable Unavailab carla Varma Jr, MD, Maria Luisa Unavailable Unavailab le PHYSICIAN, NOT RECORDED Primary Care Physician U navailable PHYSICIAN, NOT RECORDED Primary Care Unavaila destiny NICHOLS MD, DR KIRAN Manriquez Attending Unavailab carla NICHOLS MD, DR KIRAN Manriquez Attending Unavailab le PHYSICIAN, NOT RECORDED Primary Care Unavaila ble PHYSICIAN, NOT RECORDED Primary Care Unavaila destiny NICHOLS MD, DR KIRAN Manriquez Attending Unavailab Darwin Clark Attending Unavailable Eason, Jj Referring Unavailable Eason, Jj Primary Care Unavailable Darwin Badillo Attending Unavailable Eason, Jj Referring Unavailable Eason, Jj Primary Care Unavailable Eason, Jj Referring Unavailable Eason, Jj Primary Care Unavailable Thomas Sanchez Attending Unavailable Jj Mejia Attending Unavailable Jewell Sanchezyler Referring Unavailable Eason, Jj Primary Care Unavailable Eason Jj Attending Unavailable Eason, Jj Primary Care Unavailable Eason, Jj Referring Unavailable Eason, Jj Attending Unavailable Eason, Jj Primary Care Unavailable Eason, Jj Referring Unavailable Jean-Paul Estrada Referring Unavailable Eason, Jj Primary Care Unavailable Jean-Paul Estrada Attending Unavailable Jean-Paul Estrada Attending Unavailable Baddour, Jean-Paul Referring Unavailable Eason, Jj Primary Care Unavailable Baddour, Jean-Paul Attending Unavailable Baddour, Jean-Paul Referring Unavailable Eason, Jj Primary Care Unavailable Eason, Jj Primary Care Unavailable Hermilo Mendez Attending Unavailable Baddour, Jean-Paul Consulting Unavailable Baddour, Jean-Paul Referring Unavailable Gladis Bucio Attending Unavailable Eason, Jj Primary Care Unavailable Darwin Badillo Attending Unavailable Eason, Jj Primary Care Unavailable Eason, Jj Referring Unavailable Demiter, Thomas Referring Unavailable Demiter, Thomas Attending Unavailable Eason, Jj Primary Care Unavailable Demiter, Thomas Attending Unavailable Demiter, Thomas Referring Unavailable Eason, Jj Primary Care Unavailable Eason, Jj Attending Unavailable Eason, Jj Primary Care Unavailable Eason, Jj Referring Unavailable Baddour, Jean-Paul Referring Unavailable Baddour, Jean-Paul Attending Unavailable Eason, Jj Primary Care Unavailable Eason, Jj Referring Unavailable Eason, Jj Attending Unavailable Eason, Jj Primary Care Unavailable Sin Murphy Attending Unavailable Eason, Jj Primary Care Unavailable Jeffrey, Sin Referring Unavailable Eason, Jj Primary Care Unavailable Jeffrey, Sin Referring Unavailable Jeffrey, Sin Attending Unavailable Eason, Jj Primary Care Unavailable Jeffrey, Sin Referring Unavailable Jeffrey, Sin Attending Unavailable Eason, Jj Primary Care Unavailable Demiter, Thomas Referring Unavailable Demiter, Thomas Attending Unavailable Baddour, Jean-Paul Attending Unavailable Eason, Jj Primary Care Unavailable Eason, Jj Referring Unavailable Darwin Badillo Attending Unavailable Eason, Jj Referring Unavailable Eason, Jj Primary Care Unavailable Eason, Jj Referring Unavailable Eason, Jj Primary Care Unavailable Baddour, Jean-Paul Attending Unavailable EASON, JJ A Primary Care Unavailable CHAPO CORTEZ Attending Unavailable Allergies Allergy Classification Reported Allergen(s) Allergy Type Date of Onset Reaction(s) Facility HMG-CoA Reductase Inhibitors (statins) (4 sources) atorvastatin; Translations: [ATORVASTATIN] Drug Allergy 9 [facility] NSAIDs (4 sources) meloxicam; Translations: [TOLMETIN] Drug Allergy 6 Shortness Of Breath [facility] Opioid Agonists (2 sources) traMADol; Translations: [TRAMADOL] Drug Allergy 7 Other (See Comments) [facility] Penicillins (antibiotic) (2 sources) Penicillins; Translations: [PENICILLINS] Drug Allergy 6 Other (See Comments), Unknown [facility] (20 sources) Penicillins; Translations: [penicillins] Propensity to adverse reactions to drug (disorder) 6 Other (See Comments), Unknown [facility] Repository Comment on above: Edema (20 sources) meloxicam; Translations: [MELOXICAM] Drug Allergy 0 Intolerance, Flushing, Body temperature above reference range [facility] Comment on above: OVERHEATING, SWEATIN G (20 sources) Tolmetin; Translations: [TOLMETIN] Drug Allergy 6 Shortness Of Breath, Anaphylaxis [facility] (8 sources) traMADol; Translations: [TRAMADOL] Drug Allergy 7 Other (See Comments), Other: See Comments [facility] (20 sources) atorvastatin Drug Allergy 9 Unknown, Muscle soreness, Tremors [facility] (20 sources) Pravastatin Drug Allergy 9 Unknown, Muscle soreness, Tremors [facility] (13 sources) Penicillin; Translations: [PENICILLIN] Drug Allergy 6 Unknown, Rash [facility] (1 source) ALLERGIES NOT ON FILE; Translations: [ALLERGIES NOT ON FILE] Propensity to adverse reactions (disorder) [facility] (11 sources) Escitalopram Drug Allergy 5 Headache [facility] (17 sources) rosuvastatin; Translations: [rosuvastatin] Drug Allergy 5 Muscular Issues, Muscle pain [facility] (2 sources) HMG-CoA reductase inhibitor; Translations: [statins] Drug allergy [facility] (1 source) atorvastatin Drug Allergy 5 [facility] Repository (1 source) Escitalopram Drug Allergy 5 [facility] Repository (1 source) meloxicam Drug Allergy 5 [facility] (1 source) Pravastatin Drug Allergy 5 [facility]ository (1 source) Tolmetin Drug Allergy 5 [facility] Repository Medications Current Medications Medication Drug Class(es) Dates Sig (Normalized) Sig (Original) 8 hr acetaminophen 650 mg extended release oral tablet (20 sources) Start: 02-27-2025 Tylenol 8 Hour 650 mg oral tablet, extended release Dose : 1,300 mg = 2 tab(s), Oral, q8h, PRN as needed for pain, # 24 tab(s), 0 Refill(s) Start Date: 02/27/25 Status: Ordered Medication Dispense Status: Completed Quantity: 24.0 Unit: tab(s) Total Allowed Fills: 1 Fills Dispensed: 0 Start: 01-16-2025 End: 01-19-2025 take 1000 mg by mouth every six hours 1,000 mg, oral, Every 6 hours scheduled, First dose on Thu01/16/25 at 1800, [facility] Start: 01-16-2025 End: 01-23-2025 take 2 tablets by mouth three times daily acetaminophen (TYLENOL) 500 mg tablet Take 2 tablets (1,000 mg total) by mouth 3 (three) times a day for 7 days. Do not exceed 3,000 mg daily limit. 50 tablet 01/16/2025 01/23/2025 Active Start: 05-21-2021 take 1 capsule by mo uth every six hours as needed for pain Start: 02-06-2017 End: 01-03-2020 take 2 tablets by mouth every eight hours Acetaminophen 500 MG tablet Discontinued 1000 mg PO EVERY 8 HOURS 90 0 February 06, 2017 12:00am January 03, 2020 12:43pm Start: 02-06-2017 End: 01-03-2020 take 1000 mg by mouth every eight hours Acetaminophen Discontinued 1000 MG PO EVERY 8 HOURS 90 February 06, 2017 12:00am January 03, 2020 12:43pm take [address] [facility] every six hours as needed acetaminophen (TYLENOL) 500 mg capsule Take 2 capsules (1,000 mg total) by mouth every 6 (six) hours if needed for mild pain. Taking twice daily Active take 2 tablets by mo uth every six hours as needed acetaminophen (TYLENOL) 325 MG tablet Take 650 mg by mouth every 6 (six) hours as needed for pain . 0 Active acetaminophen 325 mg / HYDROcodone bitartrate 7.5 mg oral tablet (20 sources) Opioid Agonist Start: 02-27-2025 take 1 tablet by mouth every six hours as needed for pain acetaminophen-hydrocodone 325 mg-7.5 mg oral tablet Dose = 1 tab(s), Oral, q6h, PRN for pain, # 12 tab(s), 0 Refill(s), 138.2 Start Date: 02/27/25 Status: Ordered Medication Dispense Status: Completed Quantity: 12.0 Unit: tab(s) Total Allowed Fills: 1 Fills Dispensed: 0 Start: 12-29-2024 End: 01-19-2025 take 1 tablet by mouth three times daily for pain HYDROcodone-acetaminophen (NORCO) 7.5-32 5 mg per tablet Take 1 tablet by mouth 3 (three) times a day if needed. for pain 12/29/2024 01/19/2025 Discontinued (Stop Taking at Discharge) Start: 12-27-2024 NORCO (UD) ORA L TAKE ONE (7.5MG) IN THE AM, AFTERNOON, AND NIGHT - Active Start: 09-23-2024 Start: 04-17-2017 End: 04-21-2017 Hydrocodone-Acetaminophen (N orco) 5-325 mg tablet Discontinued 1 {tbl} PO .prn as needed 0 April 17, 2017 1:00am April 21, 2017 2:23pm Start: 12-01-2015 End: 02-06-2017 Hydrocodone-Acetaminophen 1 TABLET tablet Discontinued 1 {tbl} PO EVERY 6 HOURS NEEDED as needed for Pain 12 0 December 01, 2015 12:00am February 06, 2017 6:38am causes drowsiness Start: 12-01-2015 End: 02-06-2017 take 1 tablet by mouth every six hours as needed Hydrocodone-Acetaminophen Discontinued 1 TABLET PO EVERY 6 HOURS NEEDED December 01, 2015 12:00am February 06, 2017 6:38am causes drowsiness End: 01-11-2025 hydrocodone/acetaminophen (N ORCO ORAL) Take 7.5 mg by mouth 3 (three) times a day. Max Daily Amount: 22.5 mg 01/11/2025 Discontinued (Dose adjustment) HYDROCODONE/ACET AMINOPHEN (VICODIN ORAL) Take by mouth as needed. 0 Active Comment on above: Take by mouth as nee ded. amLODIPine 2.5 mg oral tablet (20 sources) Dihydropyridine [employer] [facility] Start: 02-27-2025 amLODIPine 2.5 mg oral tablet Dose : 2.5 mg = 1 tab(s), Oral, qDay, # 90 tab(s), 0 Refill(s) Start Date: 02/27/25 Status: Ordered Medication Dispense Status: Completed Quantity: 90.0 Unit: tab(s) Total Allowed Fills: 1 Fills Dispensed: 0 Start: 01-16-2025 End: 01-19-2025 take 2.5 mg by mouth once daily 2.5 mg, oral, Nightly, First dose on 01/16/25 at 1715, Hold for SBP Start: 12-23-2024 End: 01-11-2025 take 1 tablet by mouth once daily in the evening amlodipine 5 mg tablet take 1 tablet by oral route every evening 5 MG - Active Start: 09-23-2024 End: 10-21-2024 take 1 tablet by mouth at bedtime Amlodipine 2.5 mg tablet Discontinued 2.5 mg PO AT BEDTIME 30 September 29, 2024 2:39pm October 21, 2024 6:20pm blood pressure Start: 03-16-2020 End: 09-23-2024 take 1 tablet by mouth at bedtime Amlodipine 5 mg tablet Discontinued 5 mg PO AT BEDTIME 90 April 01, 2024 3:12pm September 23, 2024 11:52am blood pressure Start: 03-14-2020 End: 03-16-2020 take 5 mg by mouth at bedtime Amlodipine 10 mg tablet Discontinued 5 mg PO AT BEDTIME March 14, 2020 3:01pm March 16, 2020 2:23pm Start: 03-14-2020 End: 03-16-2020 take 5 mg by mouth at bedtime Amlodipine Discontinued 5 MG PO AT BEDTIME March 14, 2020 3:01pm March 16, 2020 2:23pm Start: 02-11-2013 End: 03-14-2020 take 1 tablet by mouth at bedtime Amlodipine 10 mg tablet Discontinued 10 mg PO AT BEDTIME 90 April 05, 2018 9:35am March 15, 2019 2:43pm Start: 02-10-2013 End: 02-11-2013 take 1 tablet by mouth twice daily Amlodipine 5 MG tablet Discontinued 5 mg PO TWICE A DAY February 10, 2013 12:00am February 11, 2013 9:30am take 2 tablets by [facility] once daily amLODIPine (NORVASC) 5 mg tablet Take 10 mg by mouth once daily. 0 Active Comment on above: Take 10 mg by mouth once daily. Take 1 tablet by eliza th daily at bedtime. ascorbic acid 100 mg oral tablet (20 sources) Vitamin C Start: 12-27-2024 take 1 tablet by mouth once daily in the morning Vitamin C 100 mg tablet take 1 tablet by oral route every morning 1 tablet - Active Start: 05-27-2022 take 2 tablets by mouth once d aily aspirin 81 mg chewable tablet (20 sources) Platelet Aggregation Inhibitor, Nonsteroidal Anti-inflammatory Drug Start: 02-01-2025 End: 01-19-2025 aspirin 81 mg chewable tablet Chew 1 tablet (81 mg total) 2 (two) times a day for 4 weeks. Begin after finishing Xarelto prescription 02/01/2025 01/19/2025 Discontinued Start: 01-31-2025 End: 02-28-2025 aspirin 81 mg chewable table t Chew 1 tablet (81 mg total) 2 (two) times a day for 4 weeks. Begin after finishing Xarelto prescription 01/31/2025 02/28/2025 Active Start: 01-17-2025 End: 01-19-2025 aspirin 81 mg chewable table t Chew 1 tablet (81 mg total) 2 (two) times a day for 4 weeks. Begin after finishing Xarelto prescription 84 tablet 01/17/2025 01/19/2025 Discontinued Start: 02-06-2017 End: 04-21-2017 take 1 tablet by mouth twice daily at mealtime Aspirin 325 MG tablet Discontinued 325 mg PO TWICE DAILY WITH MEALS 30 February 06, 2017 12:00am April 21, 2017 2:25pm Start: 02-11-2013 End: 02-06-2017 take 1 tablet by mouth once daily Aspirin 81 MG Tab.Chew Discontinued 81 mg PO DAILY@0800 30 0 February 11, 2013 12:00am February 06, 2017 6:38am take 1 tablet by eliza th once daily aspirin, enteric coated (ASPIRIN, ENTERIC COATED) 81 mg EC tablet Take 81 mg by mouth once daily. 0 Active Comment on above: Take 81 mg by mouth once daily. Bilateral wrist splints (3 sources) Start: Bilateral wrist splints Active 0 .ROUTE .MEDSUPPLY 2 0 January 02, 2025 12:00am Carpal tunnel syndrome, bilateral upper limbs Carpal tunnel syndrome (ICD 10 G56.03) Right and left wrist splints to be worn at night 24 hr buPROPion hydrochloride 150 mg extended release oral tablet (20 sources) Aminoketone Start: take 1 tablet by mouth once daily in the morning bupropion HCl XL 150 mg 24 hr tablet, extended release take 1 tablet by oral route every morning/PM - Active Start: 12-03-2021 End: 01-19-2025 take 1 tablet by mouth twice daily buPROPion SR (WELLBUTRIN SR) 150 mg 12 hr tablet Take 1 tablet (150 mg total) by mouth 2 (two) times a day. 12/09/2024 Active Start: 08-02-2020 End: 12-03-2021 take 1 tablet by mouth once daily in the morning Bupropion Hcl 150 mg tablet sustained-release 12 hr Discontinued 150 mg PO EVERY MORNING August 02, 2020 12:00am December 03, 2021 3:35pm Start: 01-03-2020 End: 07-19-2020 take 1 tablet by mouth once daily Bupropion Hcl 150 mg tablet sustained-release 12 hr Discontinued 150 mg PO DAILY January 03, 2020 12:43pm July 19, 2020 1:26pm Start: 08-19-2018 End: 01-03-2020 take 1 tablet by mouth twice daily Bupropion Hcl 150 mg tablet sustained-release 12 hr Discontinued 150 mg PO TWICE A DAY August 19, 2018 12:00am January 03, 2020 12:46pm Comment on above: Take 150 mg by mouth twice daily. BuPROPion (Eqv-Wellbutrin SR) 150 mg/12 hours oral tablet, extended release (2 sources) Start: 02-27-2025 take 1 tablet by mouth twice daily BuPROPion (Eqv-Wellbutrin SR) 150 mg/12 hours oral tablet, extended release TAKE 1 TABLET BY MOUTH TWICE DAILY Start Date: 02/27/25 Status: Ordered Medication Dispense Status: Completed Total Allowed Fills: 1 Fills Dispensed: 0 carvedilol 12.5 mg oral tablet (20 sources) alpha-Adrenergic Christian, beta-Adrenergic Christian Start: 03-21-2024 End: 01-11-2025 take 1 tablet by mouth in the morning carvedilol 6.25 mg tablet take 1 by oral route AM/PM - Active Start: 03-15-2024 End: 03-16-2024 take 1 tablet by mouth twice daily Carvedilol 6.25 mg tablet Discontinued 6.25 mg PO TWICE A DAY 180 March 15, 2024 4:32pm March 16, 2024 10:56am Start: 03-14-2024 End: 03-15-2024 take 9 mg by mouth twice daily Carvedilol 6.25 mg tabl et Discontinued 9 mg PO TWICE A DAY 180 March 15, 2024 10:32am March 15, 2024 4:32pm Start: 02-28-2023 End: 03-14-2024 take 1 tablet by mouth twice daily Carvedilol 6.25 mg tablet Discontinued 6.25 mg PO TWICE A DAY 180 30 April 07, 2023 5:11pm March 14, 2024 9:56am Start: 01-30-2023 take 0.5 tablet by m outh twice daily carvedilol (COREG) 25 mg tablet Take 0.5 tablets by mouth two times a day. 0 01/30/2023 Active Start: 12-28-2021 take 1 tablet by eliza th twice daily carvedilol (COREG) 25 mg tablet Take 25 mg by mouth twice daily. 0 12/28/2021 Active Start: 08-02-2020 End: 02-28-2023 take 2 tablets by mouth twice daily Carvedilol 12.5 mg tablet Discontinued 25 mg PO TWICE A DAY August 02, 2020 12:00am February 28, 2023 11:07am blood pressure Start: 08-02-2020 End: 02-28-2023 take 25 mg by mouth twice daily Carvedilol Discontinue d 25 MG PO TWICE A DAY August 02, 2020 12:00am February 28, 2023 11:07am Start: 03-20-2020 End: 07-19-2020 take 1 tablet by mouth twice daily at mealtime Carvedilol 25 mg tablet Discontinued 25 mg PO TWICE A DAY 60 March 20, 2020 5:28pm July 19, 2020 1:26pm must administer with a meal/food Start: 03-16-2020 End: 07-01-2025 carvedilol 12.5 mg oral tabl et Dose : 12.5 mg = 1 tab(s), Oral, BIDM, 0 Refill(s) Start Date: 02/27/25 Status: Ordered Medication Dispense Status: Completed Total Allowed Fills: 1 Fills Dispensed: 0 Start: 03-14-2020 End: 03-20-2020 take 2 tablets by mouth twice daily at mealtime Carvedilol (Coreg) 12.5 mg tablet Discontinued 25 mg PO TWICE A DAY March 16, 2020 2:24pm March 20, 2020 5:29pm must administer with a meal/food Start: 03-14-2020 End: 03-14-2020 take 1 tablet by mouth twice daily at mealtime Carvedilol (Coreg) 12.5 mg tablet Discontinued 12.5 mg PO TWICE A DAY March 14, 2020 1:00am March 14, 2020 3:22pm must administer with a meal/food Comment on above: Take 25 mg by mouth twice daily. Take 0.5 tablets by mouth two times a day. celecoxib 100 mg oral capsule (19 sources) Nonsteroidal Anti-inflammatory Drug Start: 02-27-2025 celecoxib 100 mg oral capsule Dose : 100 mg = 1 cap(s), Oral, BID, 0 Refill(s) Start Date: 02/27/25 Status: Ordered Medication Dispense Status: Completed Total Allowed Fills: 1 Fills Dispensed: 0 Start: 12-13-2024 Celebrex 100 m g capsule TAKE ONE IN THE AM AND NIGHT - Active Cholecalciferol (20 sources) Vitamin D Start: 02-27-2025 take 1 capsule by mouth once Vitamin D (3) 45 units oral capsule 0 Refill(s) Start Date: 02/27/25 Status: Ordered Medication Dispense Status: Completed Total Allowed Fills: 1 Fills Dispensed: 0 Start: 05-27-2022 take 1 tablet by eliza th once daily Start: 05-27-2022 End: 05-27-2022 take 1 tablet by mouth once daily Cholecalciferol (Vitamin D3) (Vitamin D3) 25 mcg (1,000 unit) Tablet,Chewable Discontinued 25 ug PO DAILY May 27, 2022 1:00am May 27, 2022 3:21pm Start: 08-02-2020 End: 08-02-2020 Cholecalciferol (Vitamin D3) 50 mcg (2,000 unit) capsule Discontinued NMA PO August 02, 2020 12:00am August 02, 2020 1:05pm Start: 08-02-2020 End: 08-02-2020 Cholecalciferol (Vitamin D3) Discontinued EACH PO August 02, 2020 12:00am August 02, 2020 1:05pm cholecalciferol, vitamin D3, (VITAMIN D3 ORAL) (6 sources) take 1 tablet by mouth once daily cholecalciferol, vitamin D3, (VITAMIN D3 ORAL) Take 1 tablet by mouth 1 (one) time each day. Active take 1 tablet by mouth once henry y cholecalciferol, vitamin D3, (VITAMIN D3 ORAL) Take 1 tablet by mouth 1 (one) time each day. Suspended cholecalciferol, vitamin D3, (VITAMIN D3 ORAL) Take by mouth . 0 Active DULoxetine 60 mg delayed release oral capsule (15 sources) Serotonin and Norepinephrine Reuptake Inhibitor Start: 12-15-2024 End: 01-19-2025 duloxetine 60 mg capsule,delayed release TAKE ONE AT NIGHT - Active 1 ml evolocumab 140 mg/ml auto-injector (13 sources) PCSK9 Inhibitor Start: 02-27-2025 Repatha SureCl ick Autoinjector 140 mg/mL subcutaneous solution Dose : 140 mg =, 0 Refill(s) Start Date: 02/27/25 Status: Ordered Medication Dispense Status: Completed Total Allowed Fills: 1 Fills Dispensed: 0 Start: 01-05-2025 inject 1 mL by subcu taneous injection once Repatha SureClick 140 mg/mL pen injector injection Inject 1 mL (140 mg total) under the skin every 14 (fourteen) days. 01/05/2025 Active Start: 10-24-2024 End: 11-10-2024 ezetimibe 10 mg oral tablet (20 sources) Dietary Cholesterol Absorption Inhibitor Start: 02-27-2025 ezetimibe 10 mg ora l tablet Dose : 10 mg = 1 tab(s), Oral, Daily, # 90 tab(s), 0 Refill(s) Start Date: 02/27/25 Status: Ordered Medication Dispense Status: Completed Quantity: 90.0 Unit: tab(s) Total Allowed Fills: 1 Fills Dispensed: 0 Start: 12-05-2020 End: 01-19-2025 take 1 tablet by mouth once daily in the morning ezetimibe 10 mg tablet take 1 by oral route every morning 1 - Active Start: 03-20-2020 End: 07-19-2020 take 1 tablet by mouth once daily Ezetimibe (Zetia) 10 mg tablet Discontinued 10 mg PO DAILY 24 10March 20, 2020 1:00am July 19, 2020 1:26pm Comment on above: Take 1 tablet by eliza th once daily. furosemide 40 mg oral tablet (20 sources) Loop Diuretic Start: 02-27-2025 furosemide 40 mg oral tablet Dose : 40 mg = 1 tab(s), Oral, Daily, 0 Refill(s) Start Date: 02/27/25 Status: Ordered Medication Dispense Status: Completed Total Allowed Fills: 1 Fills Dispensed: 0 Start: 12-27-2024 take 1 tablet by eliza th once daily in the morning furosemide 40 mg tablet take 1 tablet by oral route every morning 40 MG - Active Start: 09-26-2024 End: 10-04-2024 take 1 tablet by mouth once daily hydroCHLOROthiazide 50 mg oral tablet (20 sources) Thiazide Diuretic Start: 02-27-2025 hydroCHLOROthiazide 50 mg oral tablet Dose : 50 mg = 1 tab(s), Oral, Daily, # 90 tab(s), 0 Refill(s) Start Date: 02/27/25 Status: Ordered Medication Dispense Status: Completed Quantity: 90.0 Unit: tab(s) Total Allowed Fills: 1 Fills Dispensed: 0 Start: 10-21-2024 take 1 tablet by eliza th once daily in the morning hydrochlorothiazide 50 mg tablet take 1 tablet by oral route every morning 50 MG - Active Start: 09-23-2024 End: 10-21-2024 take 2 tablets by mouth once daily Hydrochlorothiazide 25 mg tablet Discontinued 50 mg PO DAILY September 23, 2024 11:49am October 21, 2024 6:17pm Start: 05-01-2023 End: 09-23-2024 take 1 tablet by mouth once daily Hydrochlorothiazide 25 mg tablet Discontinued 25 mg PO DAILY May 01, 2023 1:00am September 23, 2024 11:52am Start: 05-01-2023 Hydrochlorothi azide Active MG PO May 01, 2023 1:00am Start: 08-02-2020 End: 01-21-2023 take 1 tablet by mouth once daily Hydrochlorothiazide 25 mg tablet Discontinued 25 mg PO DAILY 90 April 18, 2022 3:55pm January 21, 2023 10:18am Start: 02-11-2013 End: 07-19-2020 take 1 tablet by mouth once daily Hydrochlorothiazide 25 mg tablet Discontinued 25 mg PO DAILY 26 03March 16, 2020 2:24pm July 19, 2020 1:26pm Comment on above: Take 25 mg by mouth every morning. Take 1 tablet by eliza th every afternoon. ibuprofen 200 mg oral tablet (20 sources) Nonsteroidal Anti-inflammatory Drug Start: 05-21-2021 take 1 tablet by mouth every six hours Ibuprofen (Advil) 200 mg tablet Active 200 MG PO EVERY 6 HOURS May 21, 2021 12:00am Start: 01-03-2020 End: 07-19-2020 take 1 tablet by mouth twice daily Ibuprofen 800 mg tablet Discontinued 800 mg PO TWICE A DAY January 03, 2020 12:44pm July 19, 2020 1:26pm Start: 03-15-2019 End: 01-03-2020 take 1 tablet by mouth three times daily Ibuprofen 800 mg tablet Discontinued 800 mg PO THREE TIMES A DAY March 15, 2019 1:00am January 03, 2020 12:46pm lamoTRIgine 200 mg oral tablet (20 sources) Mood Stabilizer, Anti-epileptic Agent Start: 02-27-2025 lamoTRIgine 200 mg oral tablet Dose : 200 mg = 1 tab(s), Oral, BID, # 180 tab(s), 0 Refill(s) Start Date: 02/27/25 Status: Ordered Medication Dispense Status: Completed Quantity: 180.0 Unit: tab(s) Total Allowed Fills: 1 Fills Dispensed: 0 Start: 01-16-2025 End: 01-19-2025 take 400 mg by mouth once daily 400 mg, oral, Nightly, First dose on 01/16/25 at 2100 Start: 12-27-2024 take 1 tablet by eliza th once daily in the evening Lamictal 200 mg tablet take 1 tablet by oral route every evening 200 MG - Active Start: 08-02-2020 take 400 mg by mouth at bedtim e Lamotrigine Active 400 MG PO AT BEDTIME August 02, 2020 12:00am Start: 03-07-2020 take 2 tablets by mo uth at bedtime Start: 01-03-2020 End: 07-19-2020 take 1 tablet by mouth once daily Lamotrigine 200 mg tablet Discontinued 200 mg PO DAILY January 03, 2020 12:00am July 19, 2020 1:26pm Start: 04-17-2017 End: 01-03-2020 take 2 tablets by mouth once daily Lamotrigine 200 MG tablet Discontinued 400 mg PO daily April 17, 2017 7:15pm January 03, 2020 12:44pm Start: 04-17-2017 End: 01-03-2020 take 400 mg by mouth once daily Lamotrigine Discontinu ed 400 MG PO daily April 17, 2017 7:15pm January 03, 2020 12:44pm Start: 02-22-2015 End: 04-17-2017 take 1 tablet by mouth at bedtime Lamotrigine 200 MG tablet Discontinued 200 mg PO AT BEDTIME February 22, 2015 12:00am April 17, 2017 7:19pm Comment on above: Take 200 mg by mouth daily at bedtime. Take two tablets at night metFORMIN hydrochloride 1000 mg oral tablet (20 sources) Biguanide Start: 02-27-2025 metFORMIN 1000 mg oral tablet (IR) Dose : 1,000 mg = 1 tab(s), Oral, BID, # 60 tab(s), 0 Refill(s) Start Date: 02/27/25 Status: Ordered Medication Dispense Status: Completed Quantity: 60.0 Unit: tab(s) Total Allowed Fills: 1 Fills Dispensed: 0 Start: 11-08-2024 take 1 tablet by eliza th twice daily metFORMIN (GLUCOPHAGE) 500 mg tablet Take 1 tablet (500 mg total) by mouth 2 (two) times a day. 11/08/2024 Active Start: 12-08-2019 End: 01-03-2020 take 1 tablet by mouth twice daily Metformin 1,000 mg tablet Discontinued 1000 mg PO TWICE A DAY December 08, 2019 12:00am January 03, 2020 12:44pm multivit-mins no.63/iron/fol ic (M-VIT ORAL) (3 sources) take 1 tablet by mouth once daily multivit-mins no.63/iron/folic (M-VIT ORAL) Take 1 tablet by mouth 1 (one) time each day. Active take 1 tablet by mouth once henry y multivit-mins no.63/iron/folic (M-VIT ORAL) Take 1 tablet by mouth 1 (one) time each day. Suspended Multivitamin (Daily Multi-Vi tamin) tablet (20 sources) Start: 12-01-2019 Start: 12-01-2019 Multivitamin ( Daily Multi-Vitamin) tablet Active 1 {tbl} PO DAILY December 01, 2019 12:00am supplement Start: 12-01-2019 Multivitamin ( Daily Multi-Vitamin) tablet Active 1 {tbl} PO DAILY December 01, 2019 12:00am Start: 12-01-2019 take 1 tablet by eliza th once daily Multivitamin (Daily Multi-Vitamin) tablet Active 1 TABLET PO DAILY December 01, 2019 12:00am Start: 12-01-2019 take 1 tablet by eliza th once daily Multivitamin (Daily Multi-Vitamin) tablet Active 1 TABLET PO DAILY November 30, 2019 11:00pm Multivitamin preparation (13 sources) Start: 02-27-2025 take 1 tablet by mouth once daily Multivitamin Dose = 1 tab(s), Oral, Daily, 0 Refill(s) Start Date: 02/27/25 Status: Ordered Medication Dispense Status: Completed Total Allowed Fills: 1 Fills Dispensed: 0 Start: 12-27-2024 take 1 tablet by eliza th once daily at mealtime multivitamin tablet take 1 tablet by oral route every morning with food 1 tablet - Active omeprazole 40 mg delayed release oral capsule (19 sources) Proton Pump Inhibitor Start: 02-27-2025 omeprazo le 40 mg oral delayed release capsule Dose : 40 mg = 1 cap(s), Oral, qDay, # 90 cap(s), 0 Refill(s) Start Date: 02/27/25 Status: Ordered Medication Dispense Status: Completed Quantity: 90.0 Unit: cap(s) Total Allowed Fills: 1 Fills Dispensed: 0 Start: 08-20-2023 take 1 capsule by mo uth once daily omeprazole (PriLOSEC) [address] capsule Take 1 capsule (40 mg total) by mouth 1 (one) time each day. 12/05/2024 Active Start: 05-19-2023 omeprazole (SD ILOSEC) 40 mg capsule perphenazine 8 mg oral tablet (20 sources) Phenothiazine Start: 02-27-2025 perphenazine 8 mg oral tablet Dose : 8 mg = 1 tab(s), Oral, qHS, # 180 tab(s), 0 Refill(s) Start Date: 02/27/25 Status: Ordered Medication Dispense Status: Completed Quantity: 180.0 Unit: tab(s) Total Allowed Fills: 1 Fills Dispensed: 0 Start: 01-17-2025 End: 01-19-2025 take 8 mg by mouth once daily 8 mg, oral, Daily, First dose (after last modification) on Thu01/18/25 at 2100 Start: 11-25-2023 End: 06-13-2024 take 1 tablet by mouth at bedtime Start: 05-01-2023 End: 11-25-2023 take 1 tablet by mouth at bedtime Perphenazine 2 mg tablet Discontinued 2 mg PO AT BEDTIME May 01, 2023 1:00am November 25, 2023 12:40pm Start: 05-01-2023 Perphenazine A ctive MG PO May 01, 2023 1:00am take 1 tablet by eliza once daily perphenazine 8 mg tablet Take 1 tablet (8 mg total) by mouth 1 (one) time each day. Active proparacaine hydrochloride 5 mg/ml ophthalmic solution (1 source) Local Anesthetic Start: 02-25-2022 End: 02-26-2022 proparacaine 0.5 % 1 Drop (ALCAINE) ramipril 10 mg oral capsule (20 sources) Angiotensin Converting Enzyme Inhibitor Start: 02-27-2025 ramipril 10 mg oral capsule Dose : 10 mg = 1 cap(s), Oral, BID, 0 Refill(s) Start Date: 02/27/25 Status: Ordered Medication Dispense Status: Completed Total Allowed Fills: 1 Fills Dispensed: 0 Start: 12-27-2024 take 1 capsule by mo uth once daily in the morning ramipril 10 mg capsule take 1 capsule by oral route every morning/PM - Active Start: 05-27-2022 take 1 capsule by mo uth twice daily ramipriL (ALTACE) 10 mg capsule Take 1 capsule (10 mg total) by mouth 2 (two) times a day. 11/13/2024 Active rivaroxaban 10 mg oral tablet (4 sources) Factor Xa Inhibitor Start: 01-20-2025 End: 01-19-2025 take 1 tablet by mouth once daily at mealtime rivaroxaban (XARELTO) 10 mg tablet Take 1 tablet (10 mg total) by mouth 1 (one) time each day for 11 doses. Take with food. Finish xarelto through 01/31. After, start on Aspirin 81mg for 4 weeks as directed. 11 each 01/20/2025 01/19/2025 Discontinued Start: 01-20-2025 End: 01-19-2025 take 1 tablet by mouth once daily at mealtime rivaroxaban (XARELTO) 10 mg tablet Take 1 tablet (10 mg total) by mouth 1 (one) time each day for 12 doses. Take with food. Finish xarelto through 01/31. After, start on Aspirin 81mg for 4 weeks as directed. 12 each 01/20/2025 01/19/2025 Discontinued Start: 01-17-2025 End: 01-31-2025 take 1 tablet by mouth once daily at mealtime rivaroxaban (XARELTO) 10 mg tablet Take 1 tablet (10 mg total) by mouth 1 (one) time each day for 11 doses. Take with food. Finish xarelto through 01/31. After, start on Aspirin 81mg for 4 weeks as directed. 01/20/2025 01/31/2025 Active tamsulosin hydrochloride 0.4 mg oral capsule (20 sources) alpha-Adrenergic Christian Start: 04-08-2024 End: 07-01-2025 tamsulosin 0.4 mg oral capsule Dose : 0.4 mg = 1 cap(s), Oral, qDayPC, # 90 cap(s), 0 Refill(s) Start Date: 02/27/25 Status: Ordered Medication Dispense Status: Completed Quantity: 90.0 Unit: cap(s) Total Allowed Fills: 1 Fills Dispensed: 0 Start: 11-14-2022 take 1 capsule by mouth every twenty-four hours traMADol hydrochloride 50 mg oral tablet (20 sources) Opioid Agonist Start: 01-16-2025 End: 01-23-2025 take 50-100 mg by mouth every six hours as needed traMADoL (ULTRAM) 50 mg tablet Take 1-2 tablets (50-100 mg total) by mouth every 6 (six) hours if needed for moderate pain for up to 7 days. Max Daily Amount: 400 mg 40 tablet 01/16/2025 01/23/2025 Active Start: 06-13-2024 End: 09-23-2024 take 2 tablets by mouth twice daily as needed for pain Tramadol 50 mg tablet Discontinued 100 mg PO TWICE A DAY as needed for pain June 13, 2024 10:13am September 23, 2024 11:18am Start: 08-20-2023 End: 06-13-2024 take 1 tablet by mouth at bedtime as needed for pain Tramadol 50 mg tablet Discontinued 50 mg PO AT BEDTIME NEEDED as needed for pain August 20, 2023 12:00am June 13, 2024 10:13am Start: 08-03-2023 take 1 tablet by eliza th once daily in the morning traMADol (ULTRAM) 50 mg tablet Take 50 mg by mouth every morning. 0 08/03/2023 Active Start: 01-27-2022 take 1 tablet by eliza th once daily traMADol (ULTRAM) 50 mg tablet Take 50 mg by mouth once daily. 0 01/27/2022 Active Start: 09-02-2021 End: 01-21-2023 take 1 tablet by mouth every eight hours as needed for pain Tramadol 50 mg tablet Discontinued 50 mg PO Q8H as needed for pain January 27, 2022 12:00am January 21, 2023 10:19am Osteoarthritis of hip Osteoarthritis of hip, unspecified further narcotic prescriptions will need to be filled from PCP or pain management doctor. Start: 04-17-2021 End: 09-02-2021 take 1 tablet by mouth every six hours as needed for pain Tramadol 50 mg tablet Discontinued 50 mg PO EVERY 6 HOURS as needed for pain 0 April 17, 2021 1:00am September 02, 2021 1:43pm Comment on above: Take 50 mg by mouth once daily. Take 50 mg by mouth every morning. traZODone hydrochloride 50 mg oral tablet (20 sources) Serotonin Reuptake Inhibitor Start: 07-24-2020 traZODone (DESYREL) 50 MG tablet Take 50-100 mg by mouth nightly as needed . 0 07/24/2020 Active Start: 12-01-2015 End: 04-21-2017 take 1 tablet by mouth at bedtime Trazodone 50 MG tablet Discontinued 50 mg PO AT BEDTIME December 01, 2015 12:00am April 21, 2017 2:23pm tropicamide 10 mg/ml ophthalmic solution (1 source) Anticholinergic Start: 02-25-2022 End: 02-26-2022 tropicamide 1 % 1 Drop (MYDRIACYL) 24 hr divalproex sodium 500 mg extended release oral tablet (20 sources) Mood Stabilizer, Anti-epileptic Agent Start: 08-02-2020 take 1500 mg by mouth at bedtime Divalproex Active 1500 MG PO AT BEDTIME August 01, 2020 11:00pm Start: 05-26-2015 divalproex (DE PAKOTE ER) 500 MG 24 hr tablet Start: 02-10-2013 End: 07-19-2020 take 3 tablets by mouth once daily Divalproex 500 MG tablet Discontinued 1500 mg PO DAILY@0800 February 10, 2013 12:00am July 19, 2020 1:26pm Start: 02-10-2013 End: 07-19-2020 take 1500 mg by mouth once daily Divalproex Discontinued 1500 MG PO DAILY@799February 10, 2013 12:00am July 19, 2020 1:26pm take 2 tablets by [facility] once daily at bedtime DIVALPROEX SODIUM (DEPAKOTE ORAL) Take 500 mg by mouth daily at bedtime. Take 2 tablets at bedtime 0 Active Comment on above: Take 500 mg by mouth daily at bedtime. Take 2 tablets at bedtime Vitamin C 250 mg oral tablet (2 sources) Start: 02-27-2025 Vitamin C 250 mg oral tablet Dose : 250 mg = 1 tab(s), Oral, qDay, # 30 tab(s), 0 Refill(s) Start Date: 02/27/25 Status: Ordered Medication Dispense Status: Completed Quantity: 30.0 Unit: tab(s) Total Allowed Fills: 1 Fills Dispensed: 0 Completed/Discontinued Medications Medication Drug Class(es) Dates Sig (Normalized) Sig (Original) acetaminophen 325 mg / oxyCODONE hydrochloride 5 mg oral tablet (20 sources) Opioid Agonist Start: 08-23-2020 End: 12-05-2020 Oxycodone-Acetami nophen (Endocet) 5-325 mg tablet Discontinued 1 {tbl} PO EVERY 6 HOURS as needed for pain 14 5 0 August 23, 2020 December 05, 2020 4:13pm Pain of left breast Mass of left breast Mastodynia Unspecified lump in the left breast, unspecified quadrant amLODIPine 10 mg / olmesartan medoxomil 20 mg oral tablet (20 sources) Dihydropyridine Calcium Channel Christian, Angiotensin 2 Receptor Christian Start: 02-10-2013 End: 02-10-2013 Amlodipine-Olmesa rtan (Connor 10-20 Mg Tablet) 1 UDTAB tablet Discontinued 1 NMA PO DAILY February 10, 2013 12:00am February 10, 2013 6:37pm azithromycin 250 mg oral tablet (1 source) Macrolide Antimicrobial Start: 08-06-2016 azithromycin (ZITHROMAX Z-AARON) 250 mg tablet Take two pills 2 X 250 mg = 500 mg the first day and then one pill 250 mg daily for 4 days. 1 Package 0 08/06/2016 Active Comment on above: Take two pills 2 X 2 50 mg = 500 mg the first day and then one pill 250 mg daily for 4 days. benazepril hydrochloride 20 mg oral tablet (20 sources) Angiotensin Converting Enzyme Inhibitor Start: 02-11-2013 End: 02-23-2020 take 1 tablet by mouth twice daily Benazepril 20 mg tablet Discontinued 20 mg PO TWICE A DAY 60 11 May 24, 2019 5:31pm February 23, 2020 1:41pm Start: 02-10-2013 End: 02-11-2013 take 2 tablets by mouth twice daily Benazepril Hcl (Lotensin) 5 MG tablet Discontinued 10 mg PO TWICE A DAY February 10, 2013 12:00am February 11, 2013 9:28am Comment on above: Take 20 mg by mouth twice daily. calcium chloride 0.0014 meq/ml / potassium chloride 0.004 meq/ml / sodium chloride 0.103 meq/ml / sodium lactate 0.028 meq/ml injectable solution (2 sources) Start: 2024 End: 2024 take 100 mL intravenously every hour 100 mL/hr, intravenous, Continuous, Starting on 9/22/25 at 1645 ceFAZolin (ANCEF) 2 gram/20 mL IV syringe 2 g (1 source) Start: 2024 End: 2024 2 g, intravenous, Administer over 3 Minutes, Every 8 hours, First dose on Thu01/16/25 at 2100, For 2 doses, Recovery & On Unit, Indication: Prophylaxis-Surgical cephalexin 500 mg oral capsule (20 sources) Cephalosporin Antibacterial Start: 2019 End: 2019 take 1 tablet by mouth every six hours at mealtime Cephalexin (Keflex) 500 mg capsule Discontinued 500 mg PO .QID 40 10 0 December 01, 2019 12:00am December 10, 2019 12:00am December 11, 2019 12:03am take one tab by mouth with food every six hours for ten days cyclobenzaprine hydrochloride 10 mg oral tablet (20 sources) Muscle Relaxant Start: 2017 End: 2018 take 1 tablet by mouth twice daily Cyclobenzaprine 10 mg tablet Discontinued 10 mg PO TWICE A DAY April 13, 2018 1:00am August 19, 2018 2:10pm Start: 06-03-2016 End: 04-21-2017 take 1 tablet by mouth twice daily Cyclobenzaprine 10 MG tablet Discontinued 10 mg PO TWICE A DAY June 03, 2016 1:00am April 21, 2017 2:24pm Comment on above: Take 10 mg by mouth at bedtime as needed. diclofenac sodium 75 mg delayed release oral tablet (20 sources) Nonsteroidal Anti-inflammatory Drug Start: 2 End: 3 take 1 tablet by mouth twice daily Diclofenac Sodium 75 mg tablet,delayed release (DR/EC) Discontinued 75 mg PO TWICE A DAY December 03, 2021 3:33pm March 07, 2023 10:46am pain On Hold: Hold for 7 days and check with PCP Start: 08-02-2020 End: 05-21-2021 take 1 tablet by mouth twice daily Diclofenac Sodium 75 mg tablet,delayed release (DR/EC) Discontinued 75 mg PO TWICE A DAY August 02, 2020 1:04pm May 21, 2021 4:21pm Start: 08-02-2020 End: 08-02-2020 Diclofenac Sodium Discontinu ed MG PO August 02, 2020 12:00am Agnes 8th, 2021 1:05pm Comment on above: Take 75 mg by mouth twice daily. diphenhydrAMINE (1 source) Histamine-1 Receptor Antagonist Start: 025 End: take 25 mg intravenously every six hours as needed docusate sodium 50 mg / sennosides, jail 8.6 mg oral tablet (20 sources) Start: 017 End: Sennosides-Docusate Sodium 1 TABLET tablet Discontinued 2 {tbl} PO TWICE A DAY 0 February 06, 2017 12:00am April 13, 2018 4:22pm Start: 02-06-2017 End: 04-13-2018 take 2 tablets by mouth twice daily Sennosides-Docusate Sodium Discontinued 2 TABLET PO TWICE A DAY February 06, 2017 12:00am April 13, 2018 4:22pm 0.4 ml enoxaparin sodium 100 mg/ml prefilled syringe (5 sources) Low Molecular Weight Heparin Start: 01-16-2025 End: 01-19-2025 inject 0.4 mL by subcutaneous injection once daily enoxaparin (LOVENOX) 40 mg/0.4 mL syringe Inject 0.4 mL (40 mg total) under the skin 1 (one) time each day for 14 days. 14 each 01/16/2025 01/19/2025 Discontinued (Stop Taking at Discharge) enoxaparin (LOVE NOX) 40 mg/0.4 mL Syrg Inject 40 mg under the skin 2 (two) times a day . 0 Active Evolocumab (Repatha Sureclick) 140 mg/mL pen injector (4 sources) Start: 10-24-2024 End: 11-10-2024 Evolocumab (Repatha Sureclick) 140 mg/mL pen injector Discontinued 140 mg SC every 2 weeks 2 3 October 24, 2024 12:00am November 10, 2024 4:35pm famotidine 40 mg oral tablet (20 sources) Histamine-2 Receptor Antagonist Start: 08-02-2020 End: 12-05-2020 take 1 tablet by mouth twice daily Famotidine 40 mg tablet Discontinued 40 mg PO TWICE A DAY August 02, 2020 12:00am December 05, 2020 4:13pm Start: 02-06-2017 End: 04-21-2017 take 1 tablet by mouth once daily Famotidine 20 MG tablet Discontinued 20 mg PO DAILY 30 0 February 06, 2017 12:00am April 21, 2017 2:24pm FAMOTIDINE ORAL Take by mouth . 0 Active flurbiprofen 100 mg oral tablet (11 sources) Nonsteroidal Anti-inflammatory Drug Start: 06-13-2024 End: 01-02-2025 take 1 tablet by mouth three times daily as needed for pain Flurbiprofen 100 mg tablet Discontinued 100 mg PO THREE TIMES A DAY as needed for pain 90 6 June 13, 2024 1:00am January 02, 2025 2:57pm Food Supplemt, Lactose-Reduced (18 sources) Start: 02-06-2017 End: 04-13-2018 take 1 mL by mouth four times daily Food Supplemt, Lactose-Reduced Discontinued 120 ML PO 4 TIMES DAILY February 06, 2017 12:00am April 13, 2018 4:21pm Start: 02-06-2017 End: 04-13-2018 take 1 mL by mouth four times daily Food Supplemt, Lactose-Reduced Discontinued 120 ML PO 4 TIMES DAILY February 05, 2017 11:00pm April 13, 2018 3:21pm Food Supplemt, Lactose-Reduced 120 ML liquid (11 sources) Start: 02-06-2017 End: 04-13-2018 take 1 mL by mouth four times daily Food Supplemt, Lactose-Reduced 120 ML liquid Discontinued 120 mL PO 4 TIMES DAILY 0 February 06, 2017 12:00am April 13, 2018 4:21pm Start: 02-06-2017 End: 04-13-2018 take 1 mL by mouth four times daily Food Supplemt, Lactose-Reduced 120 ML liquid Discontinued 120 mL PO 4 TIMES DAILY February 06, 2017 12:00am April 13, 2018 4:21pm gabapentin 800 mg oral tablet (20 sources) Anti-epileptic Agent Start: 02-25-2023 End: 01-02-2025 take 1 tablet by mouth at bedtime Gabapentin 800 mg tablet Discontinued 800 mg PO AT BEDTIME February 25, 2023 12:00am January 02, 2025 2:57pm pain Start: 11-14-2022 End: 01-21-2023 take 1 tablet by mouth every twelve hours Gabapentin 800 mg tablet Discontinued 800 mg PO Q12H November 14, 2022 12:00am January 21, 2023 10:18am Start: 08-19-2018 End: 06-21-2019 take 1 tablet by mouth at bedtime Gabapentin 800 mg tablet Discontinued 800 mg PO AT BEDTIME August 19, 2018 12:00am June 21, 2019 2:09pm Comment on above: Take 800 mg by mouth daily at bedtime. hydrALAZINE hydrochloride 25 mg oral tablet (20 sources) Arteriolar Vasodilator Start: 02-26-20 End: 02-29-20 take 2 tablets by mouth every twelve hours Hydralazine 25 mg tablet Discontinued 50 mg PO Q12H February 25, 2023 12:00am February 28, 2023 11:08am blood pressure Start: 02-25-2023 End: 02-28-2023 take 50 mg by mouth every twelve hours Hydralazine Discontinued 50 MG PO Q12H February 25, 2023 12:00am February 28, 2023 11:08am 0.5 ml HYDROmorphone hydrochloride 1 mg/ml prefilled syringe (2 sources) Opioid Agonist Start: 01-16-2025 End: 01-19-2025 0.5 mg, intravenous, Every 3 hours PRN, severe pain, for severe, breakthrough pain only, Starting on Thu01/16/25 at 1651 Start: 01-16-2025 End: 01-16-2025 0.25 mg, intravenous, Every 5 min PRN, severe pain or when therapies for moderate pain were not effective, Starting on Thu01/16/25 at 1423, For 5 doses, Recovery (only) irbesartan 300 mg oral tablet (20 sources) Angiotensin 2 Receptor Christian Start: 03-20-2020 End: 07-19-2020 take 1 tablet by mouth once daily Irbesartan 300 mg tablet Discontinued 300 mg PO DAILY March 20, 2020 1:00am July 19, 2020 1:26pm lisinopril 20 mg oral tablet (20 sources) Angiotensin Converting Enzyme Inhibitor Start: 01-16-2025 End: 01-19-2025 take 40 mg by mouth once daily 40 mg, oral, Daily, First dose on Thu01/16/25 at 1715, Hold for SBP Start: 12-05-2020 End: 12-23-2021 take 1 tablet by mouth once daily Lisinopril 10 mg tablet Discontinued 10 mg PO DAILY 90 3 December 06, 2020 4:17pm December 23, 2021 3:16pm Comment on above: Take 10 mg by mouth once daily. lithium carbonate 300 mg oral capsule (20 sources) Start: 05-27-2022 End: 01-21-2023 take 2 capsules by mouth at bedtime [place] Carbonate 300 mg Capsule Discontinued 600 mg PO AT BEDTIME May 27, 2022 1:00am January 21, 2023 10:19am mental health Start: 05-27-2022 End: 01-21-2023 take 600 mg by mouth at bedtime [place] Carbonate Disc ontinued 600 MG PO AT BEDTIME May 27, 2022 1:00am January 21, 2023 10:19am Start: 02-05-2022 End: 03-07-2023 take 1 capsule by mouth at bedtime [place] Carbonate 300 mg Capsule Discontinued 300 mg PO AT BEDTIME 0 0 January 21, 2023 12:00am March 07, 2023 10:45am depression On Hold: Hold for 4 DAYS Start: 02-05-2022 take 1 capsule by [facility] twice daily lithium carbonate (ESKALITH) 300 mg capsule Take 300 mg by mouth twice daily. 0 02/24/2022 Active Comment on above: Take 300 mg by mouth twice daily. LORazepam 0.5 mg oral tablet (20 sources) Benzodiazepine Start: 2021 End: 2021 Lorazepam (Ativan) 0.5 mg tablet Discontinued 0.5 mg PO DAILY as needed for pre MRI 2 1 0 February 11, 2022 12:00am February 11, 2022 12:00am February 12, 2022 12:06am Left shoulder pain Primary osteoarthritis of left shoulder Pain in left shoulder Primary osteoarthritis, left shoulder take 1 tab 1 hour before MRI, another 30 minutes later if no effect melatonin 3 mg oral tablet (1 source) Start: 2024 End: 2024 take 6 mg by mouth once daily as needed 6 mg, oral, Nightly PRN, insomnia, Starting on Thu01/18/25 at 1556 methylPREDNISolone 4 mg oral tablet (8 sources) Corticosteroid Start: 2024 End: 2024 Methylprednisolone 4 mg tablets,dose pack Discontinued mg PO September 23, 2024 12:00am January 02, 2025 2:57pm metoprolol tartrate 50 mg oral tablet (20 sources) beta-Adrenergic Christian Start: 2018 End: 2019 take 1 tablet by mouth twice daily Metoprolol Tartrate 50 mg tablet Discontinued 50 mg PO TWICE A DAY 180 March 15, 2019 2:57pm January 03, 2020 12:43pm Start: 08-19-2018 End: 03-15-2019 take 1 tablet by mouth twice daily Metoprolol Tartrate 25 mg tablet Discontinued 25 mg PO TWICE A DAY 60 March 15, 2019 2:42pm March 15, 2019 2:57pm Start: 04-13-2018 End: 08-19-2018 take 1 tablet by mouth twice daily Metoprolol Tartrate 50 mg tablet Discontinued 50 mg PO TWICE A DAY 180 April 13, 2018 1:00am August 19, 2018 2:10pm Start: 02-11-2013 End: 04-13-2018 take 1 tablet by mouth twice daily Metoprolol Tartrate 25 mg tablet Discontinued 25 mg PO TWICE A DAY 180 April 05, 2018 9:36am April 13, 2018 4:42pm Comment on above: Take 50 mg by mouth twice daily. Miscellaneous Medical Supply (13 sources) Start: 11-03-2022 End: 11-03-2022 Miscellaneous Medical Supply Discontinued 1 EACH MC .prn 1 360 November 03, 2022 10:03am November 03, 2022 11:14am handicap placard for 1 year Start: 11-03-2022 End: 11-03-2022 Miscellaneous Medical Supply Discontinued 1 EACH MC .prn 1 360 November 03, 2022 11:03am November 03, 2022 12:14pm handicap placard for 1 year Start: 11-07-2021 Miscellaneous Medical Supply Active 1 EACH MC .prn 1 360 November 06, 2021 11:00pm handicap placard for 1 year Miscellaneous Medical Supply misc (20 sources) Start: 10-27-2023 End: 10-27-2023 Miscellaneous Medical Supply misc Discontinued 1 NMA MC .1 1 0 October 27, 2023 12:00am October 26, 2024 12:00am October 27, 2023 2:18pm Osteoarthritis of left knee Unilateral primary osteoarthritis, left knee use as needed Start: 10-27-2023 End: 10-27-2023 Miscellaneous Medical Supply misc Discontinued 1 NMA MC .1 1 October 27, 2023 12:00am October 26, 2024 12:00am October 27, 2023 2:18pm use as needed Start: 11-03-2022 End: 11-03-2022 Miscellaneous Medical Supply misc Discontinued 1 NMA MC .prn 1 360 0 November 03, 2022 11:03am October 28, 2023 12:00am November 03, 2022 12:14pm handicap placard for 1 year Start: 11-03-2022 End: 11-03-2022 Miscellaneous Medical Supply misc Discontinued 1 NMA MC .prn 1 360 November 03, 2022 11:03am October 28, 2023 12:00am November 03, 2022 12:14pm handicap placard for 1 year MULTIVIT-MINERALS/FERROUS FU M (MULTI VITAMIN ORAL) (3 sources) MULTIVIT-MINERAL S/FERROUS FUM (MULTI VITAMIN ORAL) Take by mouth once daily. 0 Active Comment on above: Take by mouth once d aily. nabumetone 750 mg oral table t (14 sources) Nonsteroidal Anti-inflammator y Drug Sta rt: 4 End : 5 take 1 tablet by mouth twice daily Nabumetone 750 mg tablet Discontinued 750 mg PO TWICE A DAY August 20, 2023 12:00am June 13, 2024 10:12am Start: 08-09-2023 take 1 tablet by eliza th every twelve hours nabumetone (RELAFEN) 750 mg tablet Take 1 tablet by mouth every 12 hours. 0 08/09/2023 Active Comment on above: Take 1 tablet by eliza th every 12 hours. naproxen 500 mg oral tablet (20 sources) Nonsteroidal Anti-inflammatory Drug Start: 8 End: 9 take 1 tablet by mouth twice daily Naproxen 500 mg tablet Discontinued 500 mg PO TWICE A DAY April 13, 2018 1:00am March 15, 2019 2:39pm Start: 06-03-2016 End: 02-06-2017 take 1 tablet by mouth twice daily as needed Naproxen 500 MG tablet Discontinued 500 mg PO TWICE DAILY NEEDED June 03, 2016 1:00am February 06, 2017 6:38am Comment on above: Take 500 mg by mouth twice daily. nitroglycerin 0.4 mg sublingual tablet (20 sources) Nitrate Vasodilator Start: 04-17-2017 End: 06-21-2019 Nitroglycerin (Nitrostat) 0.4 mg tablet, sublingual Discontinued 0.4 mg SL Q5M as needed April 17, 2017 1:00am June 21, 2019 2:09pm Start: 04-17-2017 End: 06-21-2019 Nitroglycerin (Nitrostat) 0. 4 mg tablet, sublingual Discontinued 0.4 MG SL Q5M April 17, 2017 1:00am June 21, 2019 2:09pm nystatin [id number] unt/ml oral suspension (20 sources) Polyene Antifungal Start: 01-21-2023 End: 05-01-2023 take [id number] [IU] by mouth four times daily Nystatin 100,000 unit/mL Suspension Discontinued [id number] U PO 4 TIMES DAILY 0 0 January 21, 2023 12:00am May 01, 2023 2:32pm skin ondansetron ODT (ZOFRAN-ODT) disintegrating tablet 4 mg (1 source) Start: 01-16-2025 End: 01-19-2025 ondansetron ODT (ZOFRAN-ODT) disintegrating tablet 4 mg oxyCODONE (20 sources) Opioid Agonist Start: 01-16-2025 End: 01-19-2025 oxyCODONE (ROXICODONE) immediate release tablet 5 mg Start: 01-16-2025 End: 01-16-2025 take 5 mg by mouth every four hours as needed for pain 5 mg, oral, Every 4 hours PRN, moderate pain or when therapies for mild pain were not effective, Starting on Thu01/16/25 at 1423, For 2 doses, Recovery (only) Start: 01-16-2025 End: 01-23-2025 oxyCODONE (ROXICODONE) 5 mg immediate release tablet Take 1-2 tablets (5-10 mg total) by mouth every 4 (four) hours if needed for moderate pain or severe pain for up to 7 days. Max Daily Amount: 60 mg 40 tablet 01/16/2025 01/23/2025 Active Start: 02-06-2017 End: 04-21-2017 take 5-10 mg by mouth every four hours as needed for pain Oxycodone 5 MG tablet Discontinued 5 - 10 mg PO EVERY 4 HOURS NEEDED as needed for Pain 70 0 February 06, 2017 12:00am April 21, 2017 2:24pm Oxygen Therapy, Adult (1 source) Start: 01-16-2025 End: 01-16-2025 inhalation, Continuous, Starting on Thu01/16/25 at 1445, Recovery (only), Titrate Oxygen to keep O2 Sat. at or above: 92% pantoprazole 40 mg delayed release oral tablet (20 sources) Proton Pump Inhibitor Start: 01-17-2025 End: 01-19-2025 take 40 mg by mouth once daily before breakfast 40 mg, oral, Every morning before breakfast, First dose on Thu01/17/25 at 0700, Do not crush, chew, or split. Start: 01-30-2023 take 1 tablet by eliza th twice daily before mealtime, then take 4 tablets by mouth in the evening pantoprazole DR (PROTONIX) 40 mg tablet Take 1 tablet by mouth two times a day before meals at 6 am and 4 pm. 60 tablet 1 01/30/2023 Active Start: 08-19-2018 End: 06-21-2019 take 1 tablet by mouth once daily Pantoprazole 40 mg tablet,delayed release (DR/EC) Discontinued 40 mg PO DAILY August 19, 2018 12:00am June 21, 2019 2:09pm Start: 04-17-2017 End: 08-19-2018 take 1 tablet by mouth once daily Pantoprazole (Protonix) 20 mg tablet,delayed release (DR/EC) Discontinued 20 mg PO daily April 17, 2017 1:00am August 19, 2018 2:05pm Start: 02-22-2015 End: 04-17-2017 take 1 tablet by mouth once daily Pantoprazole 40 MG tablet Discontinued 40 mg PO DAILY February 22, 2015 12:00am April 17, 2017 7:16pm take 40 mg by mouth once daily P ANTOPRAZOLE SODIUM (PROTONIX ORAL) Take 40 mg by mouth once daily. 0 Active Comment on above: Take 40 mg by mouth once daily. Take 1 tablet by eliza th two times a day before meals at 6 am and 4 pm. polyethylene glycol 3350 19702 mg powder for oral solution (3 sources) Osmotic Laxative Start: End: microencapsulated potassium chloride 20 meq extended release oral tablet (19 sources) Start: End: Potassium Chloride (Klor-Con M20) 20 mEq Tablet,Er Particles/Crystals Discontinued 40 meq PO DAILY 6 3 0 February 28, 2023 12:00am March 07, 2023 10:45am pravastatin sodium 20 mg oral tablet (1 source) HMG-CoA Reductase Inhibitor take 1 tablet by mouth once daily pravastatin (PRAVACHOL) 20 mg tablet Take 20 mg by mouth once daily. 0 Active Comment on above: Take 20 mg by mouth once daily. QUEtiapine 25 mg oral tablet (20 sources) Atypical Antipsychotic Start: End: take 1 tablet by mouth once daily Quetiapine (Seroquel) 25 mg tablet Discontinued 25 mg PO daily April 21, 2017 1:00am April 13, 2018 4:22pm quinapril 20 mg oral tablet (5 sources) Angiotensin Converting Enzyme Inhibitor Start: take 1 tablet by mouth once daily quinapril (ACCUPRIL) 20 mg tablet Take 20 mg by mouth once daily. 0 02/11/2022 Active Comment on above: Take 20 mg by mouth once daily. Sodium Chloride (1 source) Start: End: sodium chloride 0.9 % flush 10 mL 24 hr venlafaxine 75 mg extended release oral capsule (20 sources) Serotonin and Norepinephrine Reuptake Inhibitor Start: End: take 1 capsule by mouth once daily Venlafaxine (Effexor Xr) 75 mg capsule,extended release 24hr Discontinued 75 mg PO daily April 21, 2017 1:00am April 13, 2018 4:22pm vortioxetine 10 mg oral tablet (20 sources) Start: End: take 1 tablet by mouth once daily Vortioxetine (Trintellix) 10 mg tablet Discontinued 10 mg PO DAILY January 21, 2021 12:00am April 05, 2021 2:37pm Start: 06-03-2016 End: 04-21-2017 take 1 tablet by mouth at bedtime Vortioxetine 10 MG tablet Discontinued 10 mg PO AT BEDTIME June 03, 2016 1:00am April 21, 2017 2:23pm Comment on above: Take 10 mg by mouth once daily. Problems Active Problems Problem Classification Problem Date Documented Date Episodic/Chronic Acute and unspecified renal failure (4 sources) Uremia; Translations: [Unspecified kidney failure] 01-12-2023 Chronic Acute and unspecified renal failure (20 sources) Acute renal failure syndrome; Translations: [Acute kidney failure, unspecified] 01-12-2023 Episodic Administrative/social admission (5 sources) Other reduced mobility; Translations: [Impaired functional mobility, balance, gait, and endurance] Episodic Blindness and vision defects (1 source) Functional visual field loss; Translations: [Unspecified visual field defects] Episodic Cardiac dysrhythmias (20 sources) Palpitations; Translations: [Palpitations] Episodic Conditions associated with dizziness or vertigo (20 sources) Dizziness; Translations: [Dizziness and giddiness] Episodic Disorders of lipid metabolism (20 sources) Hyperlipidemia; Translations: [Hyperlipidemia, unspecified] Onset: 05-08-2016 05-08-2016 Chronic E Codes: Fall (20 sources) Fall; Translations: [Unspecified fall, initial encounter] 02-25-2023 Episodic Esophageal disorders (3 sources) Gastroesophageal reflux disease without esophagitis; Translations: [Gastro-esophageal reflux disease without esophagitis] Onset: 05-08-2016 05-08-2016 Chronic Essential hypertension (20 sources) Essential hypertension; Translations: [Essential (primary) hypertension] Onset: 05-08-2016 05-08-2016 Chronic Comment on above: CONTROLLED WITH MED Fluid and electrolyte disorders (20 sources) Hypokalemia; Translations: [Hypokalemia] 01-19-2023 Episodic Fracture of lower limb (3 sources) Closed fracture of ankle; Translations: [Other fracture of right lower leg, subsequent encounter for closed fracture with routine healing] Episodic Headache; including migraine (18 sources) Tension-type headache; Translations: [Tension-type headache, unspecified, not intractable] Onset: 11-14-2024 06-13-2024 Chronic Malaise and fatigue (20 sources) Asthenia; Translations: [Other malaise] 01-19-2023 Episodic Mood disorders (5 sources) Bipolar disorder, most recent episode depression; Translations: [Bipolar disorder, unspecified] Onset: 05-08-2016 05-08-2016 Chronic Mood disorders (20 sources) Mood disorders Onset: 01-13-2025 01-13-2025 Nausea and vomiting (20 sources) Intractable nausea and vomiting; Translations: [Nausea with vomiting, unspecified] 03-06-2023 Episodic Nonmalignant breast conditions (20 sources) Mastodynia; Translations: [Pain of left breast] 08-31-2020 Episodic Nonspecific chest pain (20 sources) Chest pain; Translations: [Chest pain, unspecified] 05-22-2022 Episodic Nutritional deficiencies (2 sources) Undernutrition; Translations: [Mild protein-calorie malnutrition] Onset: 01-23-2023 01-30-2023 Chronic Osteoarthritis (20 sources) Bilateral osteoarthritis of knees; Translations: [Osteoarthrosis, unspecified whether generalized or localized, lower leg] Onset: 06-02-2024 Chronic Other aftercare (1 source) Encounter for other specified aftercare; Translations: [Aftercare] Onset: 01-21-2023 Episodic Other and ill-defined cerebrovascular disease (4 sources) Cerebrovascular disease; Translations: [Cerebrovascular disease, unspecified] 01-11-2025 Chronic Other and ill-defined cerebrovascular disease (1 source) Cerebrovascular disease, unspecified; Translations: [Cerebrovascular disease, unspecified] Onset: 01-14-2025 Chronic Other and ill-defined heart disease (3 sources) Heart disease; Translations: [Heart disease, unspecified] 04-22-2016 Chronic Other bone disease and musculoskeletal deformities (11 sources) Hypertrophy of bone; Translations: [Other specified disorders of bone density and structure, unspecified site] 06-15-2024 Episodic Other bone disease and musculoskeletal deformities (7 sources) Heterotopic ossification; Translations: [Other specified disorders of bone, unspecified site] Onset: 01-13-2025 01-13-2025 Episodic Other bone disease and musculoskeletal deformities (20 sources) Other specified disorders of bone, unspecified site; Translations: [Other specified disorders of bone, unspecified site] Onset: 01-13-2025 Episodic Other connective tissue disease (20 sources) History of total hip arthroplasty; Translations: [Presence of left artificial hip joint] 05-22-2022 Chronic Other connective tissue disease (2 sources) History of total replacement of left hip joint; Translations: [Presence of left artificial hip joint] 05-22-2022 Chronic Other connective tissue disease (5 sources) Pain in lower limb; Translations: [Pain in limb] Episodic Other connective tissue disease (20 sources) Iliotibial band friction syndrome; Translations: [Iliotibial band syndrome, left leg] 05-22-2022 Episodic Other connective tissue disease (7 sources) Swelling of right lower limb; Translations: [Other specified soft tissue disorders] 10-18-2024 Episodic Other connective tissue disease (7 sources) Pain in right lower limb; Translations: [Pain in right leg] 10-18-2024 Episodic Other hereditary and degenerative nervous system conditions (17 sources) Calcification of basal ganglia; Translations: [Other specified degenerative diseases of basal ganglia] 06-15-2024 Chronic Other hereditary and degenerative nervous system conditions (17 sources) Impaired cognition; Translations: [Mild cognitive impairment, so stated] 06-13-2024 Chronic Other hereditary and degenerative nervous system conditions (1 source) Mild cognitive impairment, so stated; Translations: [Mild cognitive impairment of uncertain or unknown etiology] Onset: 06-13-2024 Chronic Other lower respiratory disease (20 sources) Dyspnea on exertion; Translations: [Shortness of breath] 05-22-2022 Episodic Other lower respiratory disease (1 source) Shortness of breath; Translations: [Shortness of breath] Onset: 03-03-2025 Episodic Other nervous system disorders (20 sources) Disorder of brain; Translations: [Encephalopathy, unspecified] 01-19-2023 Chronic Other nervous system disorders (5 sources) Encephalopathy, unspecified; Translations: [Encephalopathy, unspecified] 01-21-2023 Chronic Other nervous system disorders (18 sources) Metabolic encephalopathy; Translations: [Metabolic encephalopathy] 03-06-2023 Chronic Other nervous system disorders (3 sources) Metabolic encephalopathy; Translations: [Metabolic encephalopathy] 03-07-2023 Chronic Other nervous system disorders (20 sources) Cervical myelopathy; Translations: [Disease of spinal cord, unspecified] 06-18-2023 Chronic Other nervous system disorders (8 sources) Disease of spinal cord, unspecified; Translations: [Cervical spondylosis with myelopathy] 06-18-2023 Chronic Other nervous system disorders (15 sources) Cerebral calcification; Translations: [Other specified disorders of brain] 06-15-2024 Chronic Other nervous system disorders (4 sources) Bilateral carpal tunnel syndrome; Translations: [Carpal tunnel syndrome, bilateral upper limbs] 01-11-2025 Chronic Other nervous system disorders (1 source) Carpal tunnel syndrome, bilateral upper limbs; Translations: [Carpal tunnel syndrome, bilateral upper limbs] Onset: 01-02-2025 Chronic Other nervous system disorders (15 sources) Paresthesia; Translations: [Paresthesia of skin] 06-15-2024 Episodic Other nervous system disorders (17 sources) Abnormal gait; Translations: [Unspecified abnormalities of gait and mobility] 06-15-2024 Episodic Other non-traumatic joint disorders (20 sources) Pain in right knee; Translations: [Chronic pain of both knees] 05-22-2022 Episodic Other non-traumatic joint disorders (12 sources) Shoulder pain; Translations: [Pain in left shoulder] 05-22-2022 Episodic Other non-traumatic joint disorders (20 sources) Pain in right shoulder; Translations: [Right shoulder pain] 05-22-2022 Episodic Other non-traumatic joint disorders (20 sources) Pain in right hip; Translations: [Pain in right hip] Onset: 12-19-2024 Episodic Other non-traumatic joint disorders (2 sources) Pain in left knee; Translations: [Left knee pain] 10-27-2023 Episodic Other nutritional; endocrine; and metabolic disorders (20 sources) Obesity; Translations: [Obesity, unspecified] 05-22-2022 Chronic Other nutritional; endocrine; and metabolic disorders (20 sources) Morbid obesity; Translations: [Morbid (severe) obesity due to excess calories] 11-14-2022 Chronic Other nutritional; endocrine; and metabolic disorders (20 sources) Morbid (severe) obesity due to excess calories; Translations: [Morbid obesity] Onset: 01-16-2025 11-14-2022 Chronic Other nutritional; endocrine; and metabolic disorders (20 sources) Body mass index (BMI) 45.0-49.9, adult; Translations: [Body mass index [BMI] 45.0-49.9, adult] Onset: 01-16-2025 Chronic Other nutritional; endocrine; and metabolic disorders (1 source) Metabolic syndrome; Translations: [Metabolic syndrome] Onset: 08-04-2024 Chronic Other screening for suspected conditions (not mental disorders or infectious disease) (20 sources) Abnormal lithium level in blood; Translations: [Finding of other specified substances, not normally found in blood] Onset: 03-05-2023 02-25-2023 Episodic Poisoning by nonmedicinal substances (20 sources) [place] poisoning; Translations: [Toxic effect of other metals, accidental (unintentional), initial encounter] 01-19-2023 Chronic Residual codes; unclassified (20 sources) Obstructive sleep apnea syndrome; Translations: [Obstructive sleep apnea (adult) (pediatric)] Onset: 05-08-2016 05-08-2016 Chronic Residual codes; unclassified (20 sources) Obstructive sleep apnea (adult) (pediatric) Chronic Residual codes; unclassified (9 sources) H/O: fracture; Translations: [Other postprocedural status] Episodic Residual codes; unclassified (20 sources) Acute confusion; Translations: [Disorientation, unspecified] 01-12-2023 Episodic Residual codes; unclassified (7 sources) Disorientation, unspecified; Translations: [Delirium due to conditions classified elsewhere] Onset: 03-05-2023 01-12-2023 Episodic Residual codes; unclassified (20 sources) Patient noncompliance - general; Translations: [General patient noncompliance] 03-06-2023 Episodic Residual codes; unclassified (1 source) Edema, unspecified; Translations: [Peripheral edema] Onset: 03-05-2023 Episodic Residual codes; unclassified (12 sources) Edema of lower extremity; Translations: [Localized edema] 09-24-2024 Episodic Rheumatoid arthritis and related disease (1 source) Cervical posterior longitudinal ligament ossification; Translations: [Other specified spondylopathies, cervical region] 08-11-2023 Chronic Screening and history of mental health and substance abuse codes (20 sources) H/O: manic depressive disorder; Translations: [Personal history of other mental and behavioral disorders] 02-25-2023 Episodic Spondylosis; intervertebral disc disorders; other back problems (20 sources) Lumbar spondylosis; Translations: [Lumbosacral spondylosis without myelopathy] 05-22-2022 Chronic Suicide and intentional self-inflicted injury (2 sources) Suicidal thoughts 08-03-2015 Episodic Past or Other Problems Problem Classification Problem Date Documented Da te Episodic/Chronic Other aftercare (2 sources) Follow-up status; Translations: [Encounter for other specified aftercare] Onset: 01-21-2023 01-30-2023 Episodic Other connective tissue disease (1 source) Other specified soft tissue disorders; Translations: [Other specified soft tissue disorders] Onset: 10-22-2024 Episodic Other nervous system disorders (2 sources) Paresthesia of skin; Translations: [Paresthesia of skin] Onset: 08-09-2024 Episodic Other non-traumatic joint disorders (3 sources) Multiple joint pain; Translations: [Pain in unspecified joint] Onset: 05-08-2016 05-08-2016 Episodic Other non-traumatic joint disorders (20 sources) Pain in left shoulder; Translations: [Pain in joint, shoulder region] Onset: 05-25-2024 Episodic Residual codes; unclassified (20 sources) Localized edema; Translations: [Localized edema] Onset: 12-02-2024 Episodic Spondylosis; intervertebral disc disorders; other back problems (20 sources) Neck pain; Translations: [Cervicalgia] Onset: 08-09-2024 05-01-2023 Episodic Results Test Name Value Interpretation Reference Range Facility [facility] 03-03-2025 CNOV Office Visit (SPSWIL ) MELIZA EASTMAN ([id number]) 1965 M Date Time Provider Department 03/03/25 2:20 PM CHAPO CORTEZ SPSWIL During your visit today, we recorded the following information about you: Pulse Blood pressure 75/minute 129/75 Chapo Cortez MD 03/03/2025 4:44 PM Signed SPINE SURGERY ESTABLISHED VISIT This is an in-person visit. DATE OF SERVICE: 03/02/2025 DATE OF LAST VISIT: Visit date not found SUBJECTIVE: HPI:Meliza Eastman is a 59 year old male presenting alone. Pt c/o neck pain/stiffness as well as increasing back pain (described as more of a pressure like feeling than a stabbing pain). Pt's hands go numb at night. It feels like he has numbness going up his arm. MEDICATIONS: gabapentin (NEURONTIN) 800 mg tablet Take 800 mg by mouth daily at bedtime. hydroCHLOROthiazide 25 mg tablet Take 1 tablet by mouth every afternoon. nabumetone (RELAFEN) 750 mg tablet Take 1 tablet by mouth every 12 hours. omeprazole (PRILOSEC) 40 mg capsule ramipril (ALTACE) 10 mg capsule tamsulosin (FLOMAX) 0.4 mg carvedilol (COREG) 25 mg tablet Take 0.5 tablets by mouth two times a day. amLODIPine (NORVASC) 5 mg tablet Take 1 tablet by mouth daily at bedtime. pantoprazole DR (PROTONIX) 40 mg tablet Take 1 tablet by mouth two times a day before meals at 6 am and 4 pm. ezetimibe (ZETIA) 10 mg tablet Take 1 tablet by mouth once daily. buPROPion SR (ZYBAN SR; WELLBUTRIN SR) 150 mg 12 hr tablet Take 150 mg by mouth twice daily. diclofenac, EC, (VOLTAREN) 75 mg EC tablet Take 75 mg by mouth twice daily. lithium carbonate (ESKALITH) 300 mg capsule Take 300 mg by mouth twice daily. quinapril (ACCUPRIL) 20 mg tablet Take 20 mg by mouth once daily. LAMOTRIGINE (LAMICTAL ORAL) Take 200 mg by mouth daily at bedtime. Take two tablets at night MULTIVIT-MINERALS/EDUARDO US FUM (MULTI VITAMIN ORAL) Take by mouth once daily. Patient Entered Questionnaires PROMIS Score Percentiles Percentiles provide an indication of how the patient's score ranks in relation to the general population. Higher percentile rankings indicate better function/quality of life. 50th percentile is the average of the general population and indicates half of respondents had a worse score. Depression Screening: PHQ-9 Self-Harm (Item 9) response options: 0 Not at all 1 Several days 2 More than half the days 3 Nearly every day PHQ-9 Levels: 0-4 No to mild depression 5-9 Mild depression 10-14 Moderate depression 15-19 Moderately severe depression 20-27 Severe depression OBJECTIVE: PHYSICAL EXAM: Negative Weiner's Negative inverted radial 4/5 finger opposition 5/5 motor Review of Imaging: Imaging reviewed with pt ASSESSMENT/PLAN (M47.812) Cervical spondylosis without myelopathy (primary encounter diagnosis) Meliza Eastman presented for continued neck pain, arm/hand paresthesias, and back pain. Both imaging and physical exam reveal little progression from previous visit. Pt is currently independent with ADLs and spine surgery would not likely provide a significant benefit at this point in his care. 1. Follow up with Dr. Cortez PRN or if symptoms worsen 2. Follow up: Following above I spent 20 minutes in the visit, with more than 50% of the total roiv-ns-aeiy time of the visit in counseling / coordination of care. Scribe Attestation: By signing my name below, I,Tanya Rahman, attest that this documentation has been prepared under the direction and in the presence of Dr. Cortez. Electronically Signed: Max Herrera. March 03, 2025 3:20 PM. SIGNATURE: Chapo Cortez MD PATIENT NAME: Meliza Eastman DATE: March 02, 2025 TIME: 10:38 PM PAGER: Allergies As of Date: 03/03/2025 Noted Allergy Reaction TOLMETIN 04/22/2016 12 - Shortness of Breath MOBIC (MELOXICAM) 02/25/2022 5 - Intolerance Comments: Sweating, fever and heavy breathing PENICILLIN 04/22/2016 16 - Unknown TRAMADOL 05/08/2016 14 - Other: See Comments Comments: red, fever, sweating Date Reviewed: 03/03/2025 Reviewed by: Gayla Garrett MA - Fully Assessed Reason for Visit: Follow Up [171] Cmt: Neck pain radiating down both shoulders and back Primary Visit Diagnosis:Cervical spondylosis without myelopathy [M47.812] Prescriptions as of 03/03/2025 - gabapentin (NEURONTIN) 800 mg tablet Take 800 mg by mouth daily at bedtime. - hydroCHLOROthiazide 25 mg tablet Take 1 tablet by mouth every afternoon. - nabumetone (RELAFEN) 750 mg tablet Take 1 tablet by mouth every 12 hours. - omeprazole (PRILOSEC) 40 mg capsule - ramipril (ALTACE) 10 mg capsule - tamsulosin (FLOMAX) 0.4 mg - carvedilol (COREG) 25 mg tablet Take 0.5 tablets by mouth two times a day. - amLODIPine (NORVASC) 5 mg tablet Take 1 tablet by mouth daily at bedtime. - pantoprazole DR (PROTONIX) 40 mg tablet Take 1 tablet by mouth two (more content not included)... Normal [facility] .Auto Diffon 02-27-2025 Basophil, Absolute 0.1 10 3/mcL Normal 0.0-0.3 [facility] Comment on above: Performed By: #### A BSGEL, A1C, CBC, ADIFF, ANEU, BMP, ALB, GFR, ABOGEL #### [address] [address] Basophils/100 WBC (Bld) 0.7 % Normal 0.0-2.5 [facility] Comment on above: Performed By: #### A BSGEL, A1C, CBC, ADIFF, ANEU, BMP, ALB, GFR, ABOGEL #### [address] [address] Eosinophil, Absolute 0.3 10 3/mcL Normal 0.0-0.7 [facility] Comment on above: Performed By: #### A BSGEL, A1C, CBC, ADIFF, ANEU, BMP, ALB, GFR, ABOGEL #### [address] [address] Eosinophils/100 WBC (Bld) 3.4 % Normal 0.0-6.0 [facility] Comment on above: Performed By: #### A BSGEL, A1C, CBC, ADIFF, ANEU, BMP, ALB, GFR, ABOGEL #### [address] [address] Lymphocyte, Absolute 2.0 10 3/mcL Normal 0.9-4.3 [facility] Comment on above: Performed By: #### A BSGEL, A1C, CBC, ADIFF, ANEU, BMP, ALB, GFR, ABOGEL #### [address] [address] Lymphocytes/100 WBC (Bld) 27.0 % Normal 20.0-40.0 [facility] Comment on above: Performed By: #### A BSGEL, A1C, CBC, ADIFF, ANEU, BMP, ALB, GFR, ABOGEL #### [address] [address] Monocyte, Absolute 0.7 10 3/mcL Normal 0.1-1.4 [facility] Comment on above: Performed By: #### A BSGEL, A1C, CBC, ADIFF, ANEU, BMP, ALB, GFR, ABOGEL #### [address] [place], [place] [address] Monocytes/100 WBC (Bld) 9.1 % Normal 2.0-13.0 [facility] Comment on above: Performed By: #### A BSGEL, A1C, CBC, ADIFF, ANEU, BMP, ALB, GFR, ABOGEL #### [address] [place], [place] [address] Neutrophils/100 WBC (Bld) 59.8 % Normal 50.0-75.0 [facility] Comment on above: Performed By: #### A BSGEL, A1C, CBC, ADIFF, ANEU, BMP, ALB, GFR, ABOGEL #### [address] [address] .GFRon 02-27-2025 Estimated Glomerular Filtration Rate 89 ml/min/1.73sqm Normal [facility] Comment on above: Result Comment: Stages of Chronic Kidney Disease (CKD) Stage Description eGFR(ml/min/1.73 sq.m.) CKD 1 Normal kidney function or >=90 normal kindney function with possible kidney damage (ex. Proteinuria) CKD 2 Kidney damage with mild loss 60-89 of kidney function CKD 3a Mild to moderate loss of kidney 45-59 function CKD 3b Moderate to severe loss of 30-44 of kindey function CKD 4 Severe loss of kidney function 15-29 CKD 5 Kidney failure <15 Note: (go live 2024) the eGFR calculation was updated to the 2020 CKD-EPI creatinine equation without a race factor to calculate the eGFR results. Performed By: #### A BSGEL, A1C, CBC, ADIFF, ANEU, BMP, ALB, GFR, ABOGEL #### [address] [address] .NEUABSon 02-27-2025 Neutrophil, Absolute 4.5 10 3/mcL Normal 2.3-8.1 [facility] Comment on above: Performed By: #### A BSGEL, A1C, CBC, ADIFF, ANEU, BMP, ALB, GFR, ABOGEL #### [address] [address] A1Con 02-27-2025 Glucose [Mass/Vol] 111 mg/dL Normal [facility] Comment on above: Result Comment: Sonja mated Average Glucose calculated by equation ((28.7xA1C)-46.7) Estimated average glucose (eAG) is a calculated value from Hemoglobin A1C and is medical service representative of the average blood glucose level in the last 2-3 month period. Normal range: less than 114 mg/dL Performed By: #### A BSGEL, A1C, CBC, ADIFF, ANEU, BMP, ALB, GFR, ABOGEL #### [address] [address] HbA1c (Bld) [Mass fraction] 5.5 % Normal 4.3-6.4 [facility] Comment on above: Performed By: #### A BSGEL, A1C, CBC, ADIFF, ANEU, BMP, ALB, GFR, ABOGEL #### [address] [address] ABO/Rh (Gel)on 02-27-2025 ABO/Rh Interp Positive Invalid Interpretation Code [facility] Comment on above: Order Comment: SURG ARSENIO 12/2 -AC Performed By: #### A BSGEL, A1C, CBC, ADIFF, ANEU, BMP, ALB, GFR, ABOGEL #### [address] [address] ABS (Gel)on 02-27-2025 ABSC Interp (Gel) Negative Normal [facility] Comment on above: Order Comment: SURG ARSENIO 12/2 -AC Performed By: #### A BSGEL, A1C, CBC, ADIFF, ANEU, BMP, ALB, GFR, ABOGEL #### [address] [address] ALBon 02-27-2025 Albumin Level 3.7 G/dL Normal 3.5-5.0 [facility] Comment on above: Performed By: #### A BSGEL, A1C, CBC, ADIFF, ANEU, BMP, ALB, GFR, ABOGEL #### [address] [address] BMPon 02-27-2025 BUN/Creatinine Ratio 24 ratio Normal 7-27 [facility] Comment on above: Performed By: #### A BSGEL, A1C, CBC, ADIFF, ANEU, BMP, ALB, GFR, ABOGEL #### [address] [address] Calcium [Mass/Vol] 9.1 mg/dL Normal 8.4-10.2 [facility] Comment on above: Performed By: #### A BSGEL, A1C, CBC, ADIFF, ANEU, BMP, ALB, GFR, ABOGEL #### [address] [address] Chloride [Moles/Vol] 100 mmol/L Normal 98-107 [facility] Comment on above: Performed By: #### A BSGEL, A1C, CBC, ADIFF, ANEU, BMP, ALB, GFR, ABOGEL #### [address] [address] CO2 [Moles/Vol] 27 mmol/L Normal 22-29 [facility] Comment on above: Performed By: #### A BSGEL, A1C, CBC, ADIFF, ANEU, BMP, ALB, GFR, ABOGEL #### [address] [address] Creatinine [Mass/Vol] 0.98 mg/dL Normal 0.67-1.17 [facility] Comment on above: Performed By: #### A BSGEL, A1C, CBC, ADIFF, ANEU, BMP, ALB, GFR, ABOGEL #### [address] [address] Electrolyte Balance 11.0 mEq/L Normal 4.0-15.0 [facility] Comment on above: Performed By: #### A BSGEL, A1C, CBC, ADIFF, ANEU, BMP, ALB, GFR, ABOGEL #### [place] [id number] Glucose [Mass/Vol] 110 mg/dL High 70-105 [facility] Comment on above: Performed By: #### A BSGEL, A1C, CBC, ADIFF, ANEU, BMP, ALB, GFR, ABOGEL #### [address] [address] Potassium [Moles/Vol] 4.0 mmol/L Normal 3.5-5.1 [facility] Comment on above: Performed By: #### A BSGEL, A1C, CBC, ADIFF, ANEU, BMP, ALB, GFR, ABOGEL #### [address] [address] Sodium [Moles/Vol] 138 mmol/L Normal 136-145 [facility] Comment on above: Performed By: #### A BSGEL, A1C, CBC, ADIFF, ANEU, BMP, ALB, GFR, ABOGEL #### [address] [address] Urea nitrogen [Mass/Vol] 24 mg/dL High 7-18 [facility] Comment on above: Performed By: #### A BSGEL, A1C, CBC, ADIFF, ANEU, BMP, ALB, GFR, ABOGEL #### [address] [address] CBCon 02-27-2025 Erythrocyte distribution width (RBC) [Ratio] 14.6 % Normal 11.5-15.5 [facility] Comment on above: Order Comment: Pre-A dmission Testing Performed By: #### A BSGEL, A1C, CBC, ADIFF, ANEU, BMP, ALB, GFR, ABOGEL #### [address] [address] Hematocrit (Bld) [Volume fraction] 36.3 % Low 40.0-52.0 [facility] Comment on above: Order Comment: Pre-A dmission Testing Performed By: #### A BSGEL, A1C, CBC, ADIFF, ANEU, BMP, ALB, GFR, ABOGEL #### [address] [address] Hgb 12.3 G/dL Low 13.0-17.5 [facility] Comment on above: Order Comment: Pre-A dmission Testing Performed By: #### A BSGEL, A1C, CBC, ADIFF, ANEU, BMP, ALB, GFR, ABOGEL #### [address] [address] MCH (RBC) [Entitic mass] 29.7 pg Normal 27.0-33.0 [facility] Comment on above: Order Comment: Pre-A dmission Testing Performed By: #### A BSGEL, A1C, CBC, ADIFF, ANEU, BMP, ALB, GFR, ABOGEL #### [address] [address] MCHC 33.8 G/dL Normal 32.0-36.0 [facility] Comment on above: Order Comment: Pre-A dmission Testing Performed By: #### A BSGEL, A1C, CBC, ADIFF, ANEU, BMP, ALB, GFR, ABOGEL #### [address] [address] MCV (RBC) [Entitic vol] 87.9 fL Normal 81.0-100.0 [facility] Comment on above: Order Comment: Pre-A dmission Testing Performed By: #### A BSGEL, A1C, CBC, ADIFF, ANEU, BMP, ALB, GFR, ABOGEL #### [address] [address] Platelet 252 10 3/mcL Normal 150-450 [facility] Comment on above: Order Comment: Pre-A dmission Testing Performed By: #### A BSGEL, A1C, CBC, ADIFF, ANEU, BMP, ALB, GFR, ABOGEL #### [address] [address] Platelet mean volume (Bld) [Entitic vol] 9.1 fL Normal 6.4-10.5 [facility] Comment on above: Order Comment: Pre-A dmission Testing Performed By: #### A BSGEL, A1C, CBC, ADIFF, ANEU, BMP, ALB, GFR, ABOGEL #### [address] [address] RBC 4.14 10 6/mcL Low 4.50-6.00 [facility] Comment on above: Order Comment: Pre-A dmission Testing Performed By: #### A BSGEL, A1C, CBC, ADIFF, ANEU, BMP, ALB, GFR, ABOGEL #### [facility] [address] [place], [place] [address] WBC 7.5 10 3/mcL Normal 4.5-10.8 [facility] Comment on above: Order Comment: Pre-A dmission Testing Performed By: #### A BSGEL, A1C, CBC, ADIFF, ANEU, BMP, ALB, GFR, ABOGEL #### [facility] [address] [place], [place] [address] CT SHOULDER W/O CONTRAST RIG HTon 02-27-2025 CT SHOULDER W/O CONTRAST RIGHT ORIGINAL EXAMINATION: CT OF THE RIGHT SHOULDER WITHOUT CONTRAST 02/27/2025 2:35 pm TECHNIQUE: CT of the right shoulder was performed without the administration of intravenous contrast. Multiplanar reformatted images are provided for review. Automated exposure control, iterative reconstruction, and/or weight based adjustment of the mA/kV was utilized to reduce the radiation dose to as low as reasonably achievable. COMPARISON: None. HISTORY ORDERING SYSTEM PROVIDED HISTORY: Reason for Exam: Primary osteoarthritis, right shoulder FINDINGS: Bones: No evidence of acute fracture or dislocation. No aggressive appearing osseous abnormality or periostitis. Soft Tissue: No significant soft tissue edema or fluid collections. Joint: Severe [id number]-lc-[id number] arthropathy seen in glenohumeral joint. Central bone loss in the glenoid is approximately 2 mm. Bone stock is approximately 2 cm. A large calcified body projects within the subcoracoid recess, measuring 4.5 cm. Moderate to severe AC joint degenerative changes Other: Right basilar pleuroparenchymal scarring. Scattered pulmonary nodules measuring up to 4 mm in the right lobe. Right upper and middle lobe calcified granulomas. There is an enlarged right paratracheal lymph node measuring up to 1.1 cm IMPRESSION: 1. Severe right glenohumeral osteoarthritis with associated zdfi-oe-zatz arthropathy. There is very large calcified body seen in the subcoracoid recess 2. Moderate to severe AC joint osteoarthritis. 3. Partially visualized right lung demonstrates multiple pulmonary nodules measuring up to 4 mm. A few scattered calcified granulomas are also noted. Mild right paratracheal adenopathy of unknown significance. Based on the constellation of findings, six-month follow-up CT thorax advised I have personally reviewed the images of this examination and agree with the resident's findings and interpretation. Interpreted by: Austin Bennett MD Preliminary Report By: Dara Phipps MD Electronically signed By Austin Bennett MD Dictated Date: 02/27/2025 2:46:06 PM Prelim Date: 02/27/2025 4:20:49 PM Sign Date: 02/27/2025 4:20:49 PM Ordering Provider: KIRAN NICHOLS Normal [facility] LABORATORYOrdered By: Sophia Nugent on 02-27-2025 ABO and Rh group Nom (Bld) Blood group O Rh(D) positive Invalid Interpretation Code AO BB Auto SS Blood group antibody screen Ql Negative ABSC (02/27/25 2:07 PM) Normal AO BB Auto SS LABORATORYOrdered By: SYSTEM SYSTEM on 02-27-2025 Albumin BCP dye [Mass/Vol] 3.7 G/dL Normal 3.5 - 5.0 G/dL AO ADM SS Basophils (Bld) [#/Vol] 0.1 103/mcL Normal 0.0 - 0.3 10^3/mcL AO Workflow SS Basophils/100 WBC (Bld) 0.7 % Normal 0.0 - 2.5 % AO Workflow SS Calcium [Mass/Vol] 9.1 mg/dL Normal 8.4 - 10. 2 mg/dL AO ADM SS Chloride [Moles/Vol] 100 mmol/L Normal 98 - 10 7 mmol/L AO ADM SS CO2 [Moles/Vol] 27 mmol/L Normal 22 - 29 mmol/L AO ADM SS Creatinine [Mass/Vol] 0.98 mg/dL Normal 0.67 - 1.17 mg/dL AO ADM SS Electrolyte Balance 11.0 mEq/L Normal 4.0 - 15 .0 mEq/L AO ADM SS Eosinophil, Absolute 0.3 103/mcL Normal 0.0 - 0 .7 10^3/mcL AO Workflow SS Eosinophils/100 WBC (Bld) 3.4 % Normal 0.0 - 6.0 % AO Workflow SS Erythrocyte distribution width (RBC) [Ratio] 14.6 % Normal 11.5 - 15.5 % AO Workflow SS GLOMERULAR FILTRATION RATE/1.73 SQ M.PREDICTED:ARVRAT:PT :SER/PLAS/BLD:QN:CREA TININE-BASED FORMULA (CKD-EPI 2020) 89 ml/min/1.73sqm Invalid Interpretation Code AO Chemistry S Comment on above: Interpretive Data: Stages of Chronic Kidney Disease (CKD) Stage Description eGFR(ml/min/1.73 sq.m.) CKD 1 Normal kidney function or >=90 normal kindney function with possible kidney damage (ex. Proteinuria) CKD 2 Kidney damage with mild loss 60-89 of kidney function CKD 3a Mild to moderate loss of kidney 45-59 function CKD 3b Moderate to severe loss of 30-44 of kindey function CKD 4 Severe loss of kidney function 15-29 CKD 5 Kidney failure <15 Note: (go live 2024) the eGFR calculation was updated to the 2020 CKD-EPI creatinine equation without a race factor to calculate the eGFR results. Glucose [Mass/Vol] 110 mg/dL High 70 - 105 mg/dL AO ADM SS Glucose [Mass/Vol] 111 mg/dL Invalid Interpretation Code AO Chemistry S Comment on above: Interpretive Data: E stimated average glucose (eAG) is a calculated value from Hemoglobin A1C and is medical service representative of the average blood glucose level in the last 2-3 month period. Normal range: less than 114 mg/dL HbA1c (Bld) [Mass fraction] 5.5 % Normal 4.3 - 6.4 % AO ADM SS Hematocrit (Bld) [Volume fraction] 36.3 % Low 40.0 - 52.0 % AO Workflow SS Hemoglobin (Bld) [Mass/Vol] 12.3 G/dL Low 13.0 - 17.5 G/dL AO Workflow SS Lymphocytes (Bld) [#/Vol] 2.0 103/mcL Normal 0.9 - 4.3 10^3/mcL AO Workflow SS Lymphocytes/100 WBC (Bld) 27.0 % Normal 20.0 - 40.0 % AO Workflow SS MCH (RBC) [Entitic mass] 29.7 pg Normal 27.0 - 33.0 pg AO Workflow SS MCHC 33.8 G/dL Normal 32.0 - 36.0 G/dL AO Workflow SS MCV (RBC) [Entitic vol] 87.9 fL Normal 81.0 - 100.0 fL AO Workflow SS Monocytes (Bld) [#/Vol] 0.7 103/mcL Normal 0.1 - 1.4 10^3/mcL AO Workflow SS Monocytes/100 WBC (Bld) 9.1 % Normal 2.0 - 13.0 % AO Workflow SS Neutrophils (Bld) [#/Vol] 4.5 103/mcL Normal 2.3 - 8.1 10^3/mcL AO Workflow SS Neutrophils/100 WBC (Bld) 59.8 % Normal 50.0 - 75.0 % AO Workflow SS Platelet mean volume (Bld) [Entitic vol] 9.1 fL Normal 6.4 - 10.5 fL AO Workflow SS Platelets (Bld) [#/Vol] 252 103/mcL Normal 150 - 450 10^3/mcL AO Workflow SS Potassium [Moles/Vol] 4.0 mmol/L Normal 3.5 - 5.1 mmol/L AO ADM SS RBC (Bld) [#/Vol] 4.14 106/mcL Low 4.50 - 6.0 0 10^6/mcL AO Workflow SS Sodium [Moles/Vol] 138 mmol/L Normal 136 - 145 mmol/L AO ADM SS Urea nitrogen [Mass/Vol] 24 mg/dL High 7 - 18 mg/dL AO ADM SS Urea nitrogen/Creatinine [Mass ratio] 24 ratio Normal 7 - 27 ratio AO ADM SS WBC (Bld) [#/Vol] 7.5 103/mcL Normal 4.5 - 10.8 10^3/mcL AO Workflow SS LABORATORYOrdered By: Fany Kenny on 02-27-2025 MRSA (PCR) Not Detected 1 (02/27/25 2:07 PM) Normal Not Detected Auto Viro/Sero SS Comment on above: Result Comment: [place] [id number] MRSA PCR Int See Below 2 *NA* (02/27/25 2:07 PM) Invalid Interpretation Code Auto Viro/Sero SS Comment on above: Result Comment: Clinical Interpretation: MRSA DNA not detected by Real-Time Polymerase Chain Reaction (PCR). A negative result may be due to intermittent colonization. Colonization may vary depending on patient treatment, patient status, or exposure to high-risk environments. As with all PCR based in vitro diagnostic tests, extremely low levels of target below the limit of detection of the assay may be detected, but results may not be reproducible. MRSAPCRon 02-27-2025 MRSA (PCR) Not detected Normal Not Detected [facility] Comment on above: Result Comment: [place] [id number] Performed By: #### M RSAPCR #### [address] [address] MRSA PCR Int See Below Normal [facility] Comment on above: Result Comment: Clinical Interpretation: MRSA DNA not detected by Real-Time Polymerase Chain Reaction (PCR). A negative result may be due to intermittent colonization. Colonization may vary depending on patient treatment, patient status, or exposure to high-risk environments. As with all PCR based in vitro diagnostic tests, extremely low levels of target below the limit of detection of the assay may be detected, but results may not be reproducible. Performed By: #### M RSAPCR #### [address] [address] Basic metabolic 2000 panelon 01-26-2025 Anion gap [Moles/Vol] 11 mmol/L Normal 10-20 [facility] Comment on above: Performed By: #### 2 4321-2 #### SHAD TORRES ([id number]) [facility] ([facility]) [address] [place] [address] Calcium [Mass/Vol] 8.7 mg/dL Normal 8.6-10.3 [facility] Comment on above: Performed By: #### 2 4321-2 #### SHAD TORRES ([id number]) [facility] ([facility]) [address] [place] [address] Chloride [Moles/Vol] 100 mmol/L Normal 98-107 [facility] Comment on above: Performed By: #### 2 4321-2 #### SHAD TORRES ([id number]) [facility] ([facility]) [address] [place] [address] CO2 [Moles/Vol] 30 mmol/L Normal 21-32 [facility] Comment on above: Performed By: #### 2 4321-2 #### SHAD TORRES ([id number]) [facility] ([facility] [facility]) [address] [place] [address] 74251 Creatinine [Mass/Vol] 0.79 mg/dL Normal 0.50-1.30 [facility] Comment on above: Performed By: #### 2 4321-2 #### SHAD TORRES ([id number]) [facility] ([facility]) [address] [place] [address] Glomerular filtration rate >90 Normal >60 [facility] Comment on above: Result Comment: Calc ulations of estimated GFR are performed using the 2020 CKD-EPI Study Refit equation without the race variable for the IDMS-Traceable creatinine methods. https://jasn.asnjournals.org/content/early//ASN.410007 9682 Performed By: #### 2 4321-2 #### SHAD TORRES ([id number]) [facility] ([facility]) [address] [place] [address] Glucose [Mass/Vol] 94 mg/dL Normal 74-99 [facility] Comment on above: Performed By: #### 2 4321-2 #### SHAD TORRES ([id number]) [facility] ([facility]) [address] [place] [address] 28484 Potassium [Moles/Vol] 3.8 mmol/L Normal 3.5-5.3 [facility] Comment on above: Performed By: #### 2 4321-2 #### SHAD TORRES ([id number]) [facility] ([facility]) [address] [place] [address] 94515 Sodium [Moles/Vol] 137 mmol/L Normal 136-145 [facility] Comment on above: Performed By: #### 2 4321-2 #### SHAD TORRES ([id number]) [facility] ([facility]) [address] [place] [address] 72580 Urea nitrogen [Mass/Vol] 14 mg/dL Normal 6-23 [facility] Comment on above: Performed By: #### 2 4321-2 #### SHAD TORRES ([id number]) [facility] ([facility]) [address] [place] [address] 14724 CBC panel Auto (Bld)on 01-26 Erythrocyte distribution width (RBC) [Ratio] 13.0 % Normal 11.5-14.5 [facility] Comment on above: Performed By: #### 5 8410-2 #### SHAD TORRES ([id number]) [facility] ([facility]) [address] [place] [address] 12299 Hematocrit (Bld) [Volume fraction] 35.2 % Low 41.0-52.0 [facility] Comment on above: Performed By: #### 5 8410-2 #### SHAD TORRES ([id number]) [facility] ([facility]) [address] [place] [address] 50105 Hemoglobin (Bld) [Mass/Vol] 11.4 g/dL Low 13.5-17.5 [facility] Comment on above: Performed By: #### 5 8410-2 #### SHAD TORRES ([id number]) [facility] ([facility]) [address] [place] [address] 55107 MCH (RBC) [Entitic mass] 29.0 pg Normal 26.0-34.0 [facility] Comment on above: Performed By: #### 5 8410-2 #### SHAD TORRES ([id number]) [facility] ([facility]) [address] [place] [address] 80485 MCHC (RBC) [Mass/Vol] 32.4 g/dL Normal 32.0-36.0 [facility] Comment on above: Performed By: #### 5 8410-2 #### SHAD TORRES ([id number]) [facility] ([facility]) [address] [place] [address] 87086 MCV (RBC) [Entitic vol] 90 fL Normal 80-100 [facility] Comment on above: Performed By: #### 5 8410-2 #### SHAD TORRES ([id number]) [facility] ([facility]) [address] [place] [address] 75495 Nucleated RBC/100 WBC (Bld) [Ratio] 0.0 /100 WBCs Normal 0.0-0.0 [facility] Comment on above: Performed By: #### 5 8410-2 #### SHAD TORRES ([id number]) [facility] ([facility]) [address] [place] [address] Platelets (Bld) [#/Vol] 344 x10*3/uL Normal 150-450 [facility] Comment on above: Performed By: #### 5 8410-2 #### SHAD TORRES ([id number]) [facility] ([facility]) [address] [place] [address] RBC (Bld) [#/Vol] 3.93 x10*6/uL Low 4.50-5.90 [facility] Comment on above: Performed By: #### 5 8410-2 #### SHAD TORRES ([id number]) [facility] ([facility]) [address] [place] [address] WBC (Bld) [#/Vol] 8.2 x10*3/uL Normal 4.4-11.3 [facility] Comment on above: Performed By: #### 5 8410-2 #### SHAD TORRES ([id number]) [facility] ([facility]) [address] [place] [address] SARS-CoV-2 (COVID-19) RNA NA A+probe Ql (Resp)on 01-19-2025 Interpretation and review of laboratory results Normal [facility] SARS-CoV-2 (COVID-19) RdRp gene KRISTIN+probe Ql (Resp) Not detected Not Detected [facility] Molecular testing utilizing isothermal nucleic acid amplification technology. [facility] SARS-CoV-2 (COVID-19) RNA NA A+probe Ql (Resp)Ordered By: Maria Luisa Varma Jr on 01-19-2025 SARS-CoV-2 (COVID-19) RNA KRISTIN+probe Ql (Unsp spec) Not detected Not Detected [facility] SARS-CoV-2 RNA Resp Ql KRISTIN+p erin 01-19-2025 SARS-CoV-2 (COVID-19) RNA KRISTIN+probe Ql (Resp) Not detected Normal Not Detected [facility] Comment on above: Order Comment: Molec ular testing utilizing isothermal nucleic acid amplification technology. Performed By: #### 9 4500-6 #### [facility] [address] [place] [address] Glucose Auto test strip (Bld ) [Mass/Vol]on 01-16-2025 Glucose [Mass/Vol] 104 mg/dL High 70 - 99 mg/dL [facility] Interpretation and review of laboratory results Abnormal [facility] Glucose [Mass/Vol] 104 mg/dL High 70-99 [facility] Comment on above: Performed By: #### 2 340-8 #### [facility] [address] [place] [address] Laboratory - Chemistry and C hemistry - challengeon 01-16-2025 Cryoglobulin Immune diff Ql (S) R Hip [facility] Rad Onc Aria Session Summary on 01-16-2025 Albumin given [Vol] 7.5 Gy [facility] Amikacin (Dose) [Mass] 7.5 [facility] Appearance (Unsp spec) [facility] Appearance (Unsp spec) [facility] date [Date/time] 01/16/2025 [facility] date [Date/time] 7.5 [facility] date [Date/time] [facility] Cell Fractions/Differentia l (Bld) [Interp] 1 [facility] Collection start date (U) 01/06/2025 [facility] Cryoglobulin Immune diff Ql (S) C1 [facility] Date Palm Pollen IgE Qn (S) 01/16/2025 [facility] Tetrahydrocortisone (Dose) [Mass] 750 cGy [facility] Sara ALCOHOOT XR PELVIS 1-2 VIEWSon 2024 XR PELVIS 1-2 VIEWS EXAMINATION TYPE: XR PELVIS 1-2 VIEWS DATE OF EXAM : 01/16/2025 2:35 PM HISTORY: Postoperative care. Right total hip arthroplasty. COMPARISON: None. FINDINGS: There is bilateral total hip arthroplasty hardware in appropriate position. There is no fracture. There is air in the soft tissues adjacent to the right hip, compatible with recent surgery. There is heterotopic ossification adjacent to the left hip. The sacroiliac joints and symphysis pubis demonstrate normal alignment. There are degenerative changes in the lower lumbar spine. IMPRESSION: Bilateral total hip arthroplasty hardware in appropriate position. No fracture. -------- FINAL REPORT -------- Dictated By: Jj Cruz Dictated Date: 01/16/2025 14:50 Assigned Physician: Jj Cruz Reviewed and Electronically Signed By: Jj Cruz Signed Date: 01/16/2025 14:52 Workstation ID: [id number] Transcribed By: Self Edit Transcribed Date: 01/16/2025 14:50 Normal [facility] XR Pelvis 1 or 2 Viewson Bilateral total hip arthroplasty hardware in appropriate position. No fracture. -------- FINAL REPORT -------- Dictated By: Jj Cruz Dictated Date: 01/16/2025 14:50 Assigned Physician: Jj Cruz Reviewed and Electronically Signed By: Jj Cruz Signed Date: 01/16/2025 14:52 Workstation ID: [id number] Transcribed By: Self Edit Transcribed Date: 01/16/2025 14:50 POWERSCRIBE EXAMINATION TYPE: XR PELVIS 1-2 VIEWS DATE OF EXAM : 01/16/2025 2:35 PM HISTORY: Postoperative care. Right total hip arthroplasty. COMPARISON: None. FINDINGS: There is bilateral total hip arthroplasty hardware in appropriate position. There is no fracture. There is air in the soft tissues adjacent to the right hip, compatible with recent surgery. There is heterotopic ossification adjacent to the left hip. The sacroiliac joints and symphysis pubis demonstrate normal alignment. There are degenerative changes in the lower lumbar spine. POWERSCRIBE Jj Cruz MD - 01/16/2025 EXAMINATION TYPE: XR PELVIS 1-2 VIEWS DATE OF EXAM : 01/16/2025 2:35 PM HISTORY: Postoperative care. Right total hip arthroplasty. COMPARISON: None. FINDINGS: There is bilateral total hip arthroplasty hardware in appropriate position. There is no fracture. There is air in the soft tissues adjacent to the right hip, compatible with recent surgery. There is heterotopic ossification adjacent to the left hip. The sacroiliac joints and symphysis pubis demonstrate normal alignment. There are degenerative changes in the lower lumbar spine. IMPRESSION: Bilateral total hip arthroplasty hardware in appropriate position. No fracture. -------- FINAL REPORT -------- Dictated By: Jj Cruz Dictated Date: 01/16/2025 14:50 Assigned Physician: Jj Cruz Reviewed and Electronically Signed By: Jj Cruz Signed Date: 01/16/2025 14:52 Workstation ID: [id number] Transcribed By: Self Edit Transcribed Date: 01/16/2025 14:50 [facility] Study observation (narrative) [facility] XR Pelvis 1 or 2 ViewsOrdere d By: Jj Cruz on 01-16-2025 [facility] Work Phone: AT III Func / Immunolon 12-26 AT3 AG, IMMUNOL 82 Normal 72-124 [facility] Comment on above: Order Comment: Test( s) 439866-Hhiezzkcazay Antigenwas developed and its performance characteristicsdetermined by [employer]. It has not been cleared or approvedby the Food and Drug Administration. Performed By: #### L 4500.5000, L3100.8408, L3100.1725, L3410.9992, L501.5200, L3100.5600, L100.0100, L3300.0960, L3100.5800, L3300.8000, L3100.5700, L3100.7300, L3300.8200, L3100.7325, L3410.1400, L500.4050, L3100.7250, L501.9520, L503.0106, L3300.0450, L3100.7050, L509.1000, L3100.5450, L501.2300, L4500.0100, L101.9900, L4500.2000 ####[facility] [address] [place], [address] AT3 FUNCTIONAL 108 Normal 75-135 [facility] Comment on above: Order Comment: Test( s) 845324-Ezmozhftyccc Antigenwas developed and its performance characteristicsdetermined by [employer]. It has not been cleared or approvedby the Food and Drug Administration. Result Comment: Dire ct Xa inhibitor anticoagulants such as rivaroxaban, apixaban and edoxaban will lead to spuriously elevated antithrombin activity levels possibly masking a deficiency. Performed By: #### L 4500.5000, L3100.8408, L3100.1725, L3410.9992, L501.5200, L3100.5600, L100.0100, L3300.0960, L3100.5800, L3300.8000, L3100.5700, L3100.7300, L3300.8200, L3100.7325, L3410.1400, L500.4050, L3100.7250, L501.9520, L503.0106, L3300.0450, L3100.7050, L509.1000, L3100.5450, L501.2300, L4500.0100, L101.9900, L4500.2000 ####[facility] [address] [place], [address] Anticardiolipin IgA,G,Mon ANTICARDIO IgA < 9 Normal 0-11 [facility] Comment on above: Order Comment: Test( s) 759399-Zqvuyduafdmf Antigenwas developed and its performance characteristicsdetermined by [employer]. It has not been cleared or approvedby the Food and Drug Administration. Result Comment: Nega tive: <12 Indeterminate: 12 - 20 Low-Med Positive: >20 - 80 High Positive: >80 Performed By: #### L 4500.5000, L3100.8408, L3100.1725, L3410.9992, L501.5200, L3100.5600, L100.0100, L3300.0960, L3100.5800, L3300.8000, L3100.5700, L3100.7300, L3300.8200, L3100.7325, L3410.1400, L500.4050, L3100.7250, L501.9520, L503.0106, L3300.0450, L3100.7050, L509.1000, L3100.5450, L501.2300, L4500.0100, L101.9900, L4500.2000 ####[facility] [address] [place], [address] ANTICARDIO IgG < 9 Normal 0-14 [facility] Comment on above: Order Comment: Test( s) 395246-Ycstdgijzfzr Antigenwas developed and its performance characteristicsdetermined by [employer]. It has not been cleared or approvedby the Food and Drug Administration. Result Comment: Nega tive: <15 Indeterminate: 15 - 20 Low-Med Positive: >20 - 80 High Positive: >80 Performed By: #### L 4500.5000, L3100.8408, L3100.1725, L3410.9992, L501.5200, L3100.5600, L100.0100, L3300.0960, L3100.5800, L3300.8000, L3100.5700, L3100.7300, L3300.8200, L3100.7325, L3410.1400, L500.4050, L3100.7250, L501.9520, L503.0106, L3300.0450, L3100.7050, L509.1000, L3100.5450, L501.2300, L4500.0100, L101.9900, L4500.2000 ####[facility] [address] [place], [place], [id number] Anticardio.IgM < 9 Normal 0-12 [facility] Comment on above: Order Comment: Test( s) 069861-Wocvwrpddeoo Antigenwas developed and its performance characteristicsdetermined by [employer]. It has not been cleared or approvedby the Food and Drug Administration. Result Comment: Nega tive: <13 Indeterminate: 13 - 20 Low-Med Positive: >20 - 80 High Positive: >80 Performed By: #### L 4500.5000, L3100.8408, L3100.1725, L3410.9992, L501.5200, L3100.5600, L100.0100, L3300.0960, L3100.5800, L3300.8000, L3100.5700, L3100.7300, L3300.8200, L3100.7325, L3410.1400, L500.4050, L3100.7250, L501.9520, L503.0106, L3300.0450, L3100.7050, L509.1000, L3100.5450, L501.2300, L4500.0100, L101.9900, L4500.2000 ####[facility] [address] [place], [place], [address] Complement C3on 01-11-2025 COMP C3 168 mg/dL High 82-167 [facility] Comment on above: Order Comment: Test( s) 704443-Ijikgnsshvgl Antigenwas developed and its performance characteristicsdetermined by [employer]. It has not been cleared or approvedby the Food and Drug Administration. Performed By: #### L 4500.5000, L3100.8408, L3100.1725, L3410.9992, L501.5200, L3100.5600, L100.0100, L3300.0960, L3100.5800, L3300.8000, L3100.5700, L3100.7300, L3300.8200, L3100.7325, L3410.1400, L500.4050, L3100.7250, L501.9520, L503.0106, L3300.0450, L3100.7050, L509.1000, L3100.5450, L501.2300, L4500.0100, L101.9900, L4500.2000 ####[facility] [address] [place], [place], [id number] Complement C4on 01-11-2025 COMPLEMENT, C4 42 mg/dL High 12-38 [facility] Comment on above: Order Comment: Test( s) 535506-Ofdiimxesbsw Antigenwas developed and its performance characteristicsdetermined by [employer]. It has not been cleared or approvedby the Food and Drug Administration. Performed By: #### L 4500.5000, L3100.8408, L3100.1725, L3410.9992, L501.5200, L3100.5600, L100.0100, L3300.0960, L3100.5800, L3300.8000, L3100.5700, L3100.7300, L3300.8200, L3100.7325, L3410.1400, L500.4050, L3100.7250, L501.9520, L503.0106, L3300.0450, L3100.7050, L509.1000, L3100.5450, L501.2300, L4500.0100, L101.9900, L4500.1999 ####[facility] [address] [place], [address] Complement CH50on 01-11-2025 COMPLEMENT,CH50 > 60 Normal >41 [facility] Comment on above: Order Comment: Test( s) 246840-Tzpjpogsfzhw Antigenwas developed and its performance characteristicsdetermined by [employer] It has not been cleared or approvedby the Food and Drug Administration. Result Comment: Age Male Female 1 - 30 days Not Estab. Not Estab. 31 days - 6 months >32 >20 7 months - 17 years >39 >39 >17 years >41 >41 NOTE: The adult (>17 years) reference interval range is used to flag abnormals on this report. If the patient is 17 years old or younger, use the table above to determine out of range values. Performed By: #### L 4500.5000, L3100.8408, L3100.1725, L3410.9992, L501.5200, L3100.5600, L100.0100, L3300.0960, L3100.5800, L3300.8000, L3100.5700, L3100.7300, L3300.8200, L3100.7325, L3410.1400, L500.4050, L3100.7250, L501.9520, L503.0106, L3300.0450, L3100.7050, L509.1000, L3100.5450, L501.2300, L4500.0100, L101.9900, L4500.1999 ####[facility] [address] [place], [address] Fact V Leiden Mutationon FACTOR V LEIDEN Comment Normal . [facility] Comment on above: Order Comment: Test( s) 836454-Tacyjmldplix Antigenwas developed and its performance characteristicsdetermined by [employer]. It has not been cleared or approvedby the Food and Drug Administration. Result Comment: Resu lt: c.1601G>A (p.Ojl021Qtv) - Not Detected This result is not associated with an increased risk for venous thromboembolism. See Additional Clinical Information and Comments. Additional Clinical Information: Venous thromboembolism is a multifactorial disease influenced by genetic, environmental, and circumstantial risk factors. The c.1601G>A (p. Dca094Mlh) variant in the F5 gene, commonly referred to as Factor V Leiden, is a genetic risk factor for venous thromboembolism. Heterozygous carriers of this variant have a 6- to 8-fold increased risk for venous thromboembolism. Individuals homozygous for this variant (ie, with a copy of the variant on each chromosome) have an approximately 80-fold increased risk for venous thromboembolism. Individuals who carry both a c.*97G>A variant in the F2 gene and Factor V Leiden have an approximately 20-fold increased risk for venous thromboembolism. Risks are likely to be even higher in more complex genotype combinations involving the F2 c.*97G>A variant and Factor V Leiden (PMID: 36687392). Additional risk factors include but are not limited to: deficiency of protein C, protein S, or antithrombin III, age, male sex, personal or family history of deep vein thromboembolism, smoking, surgery, prolonged immobilization, malignant neoplasm, tamoxifen treatment, raloxifene treatment, oral contraceptive use, hormone replacement therapy, and . Management of thrombotic risk and thrombotic events should follow established guidelines and fit the clinical circumstance. This result cannot predict the occurrence or recurrence of a thrombotic event. Comment: Genetic counseling is recommended to discuss the potential clinical implications of positive results, as well as recommendations for testing family members. Genetic Coordinators are available for health care providers to discuss results at [phone] Test Details: Variant Analyzed: c.1601G>A (p. Bsy838Bcs), referred to as Factor V Leiden Methods/Limitations: DNA analysis of the F5 gene (NM_000130.5) was performed by PCR amplification followed by electrophoresis. The diagnostic sensitivity is >99%. Results must be combined with clinical information for the most accurate interpretation. Molecular-based testing is highly accurate, but as in any laboratory test, diagnostic errors may occur. False positive or false negative results may occur for reasons that include genetic variants, blood transfusions, bone marrow transplantation, somatic or tissue-specific mosaicism, mislabeled samples, or erroneous representation of family relationships. This test was developed and its performance characteristics determined by [employer]. It has not been cleared or approved by the Food and Drug Administration. References: Anish S, Amy GE, Adam R, Tiera WW, Nick JH; [employer] Professional Practice and Guidelines Committee. Addendum: [employer] consensus statement on factor V Leiden mutation testing. [employer]. 2020Jun 29. doi: 10.1038/u28396-254-86158-j. PMID: 21561806. Luis CAMERON. Factor V Leiden Thrombophilia. 1998September 07 (Updated 2017Apr 30). In: Sj MP, Karina HH, Mary RA, et al., editors. Adolph(R) (Internet). [place]): [facility]; 0427-4431. Available from: https://www.ncbi.nlm.nih.gov/books/NEE2461/ Bobo Russell, Amy GE, Chase X, Reid B, Radha EB, Diana P, Disha CS; [employer] Laboratory Scale Shooter Committee. Venous thromboembolism laboratory testing (factor V Leiden and factor II c. *97G>A), 2018 update: a technical standard of the [employer] ([employer]). [employer] Med. 2018 Mar;20(12): 8420-5996. doi: 10.1038/m44913-262-6034-e. Epub 2017Jan 29. PMID: 08581050. Performed By: #### L 4500.5000, L3100.8408, L3100.1725, L3410.9992, L501.5200, L3100.5600, L100.0100, L3300.0960, L3100.5800, L3300.8000, L3100.5700, L3100.7300, L3300.8200, L3100.7325, L3410.1400, L500.4050, L3100.7250, L501.9520, L503.0106, L3300.0450, L3100.7050, L509.1000, L3100.5450, L501.2300, L4500.0100, L101.9900, L4500.2000 ####[facility] [address] [place], [place], [id number] Reviewed By Comment Normal . [facility] Comment on above: Order Comment: Test( s) 610209-Exhvkjnigiaz Antigenwas developed and its performance characteristicsdetermined by [facility]. It has not been cleared or approvedby the Food and Drug Administration. Result Comment: Tech nical Component performed at [facility] Professional Component performed by: Luisana Osullivan, PhD, [facility], [facility], [address] [place] [address] Performed By: #### L 4500.5000, L3100.8408, L3100.1725, L3410.9992, L501.5200, L3100.5600, L100.0100, L3300.0960, L3100.5800, L3300.8000, L3100.5700, L3100.7300, L3300.8200, L3100.7325, L3410.1400, L500.4050, L3100.7250, L501.9520, L503.0106, L3300.0450, L3100.7050, L509.1000, L3100.5450, L501.2300, L4500.0100, L101.9900, L4500.2000 ####[facility] [address] [place], [place], [id number] Factor II, DNA Analysison FACTOR II, DNA Comment Normal . [facility] Comment on above: Order Comment: Test( s) 639685-Rxbivorycgle Antigenwas developed and its performance characteristicsdetermined by [employer]. It has not been cleared or approvedby the Food and Drug Administration. Result Comment: Resu lt: c.*97G>A - Not Detected This result is not associated with an increased risk for venous thromboembolism. See Additional Clinical Information and Comments. Additional Clinical Information: Venous thromboembolism is a multifactorial disease influenced by genetic, environmental, and circumstantial risk factors. The c.*97G>A variant in the F2 gene is a genetic risk factor for venous thromboembolism. Heterozygous carriers have a 2- to 4-fold increased risk for venous thromboembolism. Homozygotes for the c.*97G>A variant are rare. The annual risk of VTE in homozygotes has been reported to be 1.1%/year. Individuals who carry both a c.*97G>A variant in the F2 gene and a c.1601G>A (p. Fua536Rsz) variant in the F5 gene (commonly referred to as Factor V Leiden) have an approximately 20- fold increased risk for venous thromboembolism. Risks are likely to be even higher in more complex genotype combinations involving the F2 c.*97G>A variant and Factor V Leiden (PMID: 28552545). Additional risk factors include but are not limited to: deficiency of protein C, protein S, or antithrombin III, age, male sex, personal or family history of deep vein thromboembolism, smoking, surgery, prolonged immobilization, malignant neoplasm, tamoxifen treatment, raloxifene treatment, oral contraceptive use, hormone replacement therapy, and . Management of thrombotic risk and thrombotic events should follow established guidelines and fit the clinical circumstance. This result cannot predict the occurrence or recurrence of a thrombotic event. Comments: Genetic counseling is recommended to discuss the potential clinical implications of positive results, as well as recommendations for testing family members. Genetic Coordinators are available for health care providers to discuss results at [phone] Test Details: Variant analyzed: c.*97G>A, previously referred to as [id number] Methods/Limitations: DNA analysis of the F2 gene (NM_000506.5) was performed by PCR amplification followed by restriction enzyme analysis. The diagnostic sensitivity is >99%. Results must be combined with clinical information for the most accurate interpretation. Molecular-based testing is highly accurate, but as in any laboratory test, diagnostic errors may occur. False positive or false negative results may occur for reasons that include genetic variants, blood transfusions, bone marrow transplantation, somatic or tissue-specific mosaicism, mislabeled samples, or erroneous representation of family relationships. This test was developed and its performance characteristics determined by [employer]. It has not been cleared or approved by the Food and Drug Administration. References: Anish Russell, Amy GE, Adam R, Tiera WW, Nick JH; [employer] Professional Practice and Guidelines Committee. Addendum: [employer] consensus statement on factor V Leiden mutation testing. Jailyn Med. 2020Jun 29. doi: 10.1038/m10645-976-88869-y. PMID: 89433874. Luis CAMERON. Prothrombin Thrombophilia. 2005Nov 18 [Updated 2020May 31]. In: Sj MP, Karina HH, Mary RA, et al., editors. Adolph(R) [Internet]. [place] ([place]): [facility]; 7897-7597. Available from: https://www.ncbi.nlm.nih.gov/books/TOZ3694/ Bobo S, Amy GE, Chase X, Reid B, Radha EB, Diana P, Disha CS; [employer] Laboratory Scale Shooter Committee. Venous thromboembolism laboratory testing (factor V Leiden and factor II c.*97G>A), 2018 update: a technical standard of the [employer] ([employer]). Jailyn Med. 2018 Mar;20(12):1714-9105. doi: 10.1038/[id number]-y. Epub 2017Jan 29. PMID: 56247704. Performed By: #### L 4500.5000, L3100.8408, L3100.1725, L3410.9992, L501.5200, L3100.5600, L100.0100, L3300.0960, L3100.5800, L3300.8000, L3100.5700, L3100.7300, L3300.8200, L3100.7325, L3410.1400, L500.4050, L3100.7250, L501.9520, L503.0106, L3300.0450, L3100.7050, L509.1000, L3100.5450, L501.2300, L4500.0100, L101.9900, L4500.2000 ####[facility] [address] [place], [place], [address] Folates, RBCon 01-11-2025 Fol.,Hemolysate 573.0 ng/mL Normal Not Estab. [facility] Comment on above: Order Comment: Test( s) 495774-Hggattfekfxf Antigenwas developed and its performance characteristicsdetermined by [employer]. It has not been cleared or approvedby the Food and Drug Administration. Performed By: #### L 4500.5000, L3100.8408, L3100.1725, L3410.9992, L501.5200, L3100.5600, L100.0100, L3300.0960, L3100.5800, L3300.8000, L3100.5700, L3100.7300, L3300.8200, L3100.7325, L3410.1400, L500.4050, L3100.7250, L501.9520, L503.0106, L3300.0450, L3100.7050, L509.1000, L3100.5450, L501.2300, L4500.0100, L101.9900, L4500.2000 ####[facility] [address] [place], [place], [id number] Folate, RBC 1317 ng/mL Normal >498 [facility] Comment on above: Order Comment: Test( s) 703695-Uplospjfomja Antigenwas developed and its performance characteristicsdetermined by [employer]. It has not been cleared or approvedby the Food and Drug Administration. Performed By: #### L 4500.5000, L3100.8408, L3100.1725, L3410.9992, L501.5200, L3100.5600, L100.0100, L3300.0960, L3100.5800, L3300.8000, L3100.5700, L3100.7300, L3300.8200, L3100.7325, L3410.1400, L500.4050, L3100.7250, L501.9520, L503.0106, L3300.0450, L3100.7050, L509.1000, L3100.5450, L501.2300, L4500.0100, L101.9900, L4500.2000 ####[facility] [address] [place], [place], [id number] Hematocrit (Bld) [Volume fraction] 43.5 % Normal 37.5-51.0 [facility] Comment on above: Order Comment: Test( s) 960249-Dptswufovdjx Antigenwas developed and its performance characteristicsdetermined by [facility] [employer]. It has not been cleared or approvedby the Food and Drug Administration. Performed By: #### L 4500.5000, L3100.8408, L3100.1725, L3410.9992, L501.5200, L3100.5600, L100.0100, L3300.0960, L3100.5800, L3300.8000, L3100.5700, L3100.7300, L3300.8200, L3100.7325, L3410.1400, L500.4050, L3100.7250, L501.9520, L503.0106, L3300.0450, L3100.7050, L509.1000, L3100.5450, L501.2300, L4500.0100, L101.9900, L4500.2000 ####[facility] [address] [place], [place], [address] HLA B27on 01-11-2025 HLA B27 Negative Normal . [facility] Comment on above: Order Comment: Test( s) 483503-Wjqpjaxkykvd Antigenwas developed and its performance characteristicsdetermined by [facility]. It has not been cleared or approvedby the Food and Drug Administration. Result Comment: HLA- B*27 Negative B27 allele interpretation for all loci based on IMGT/HLA database version 3.58 This test was developed and its performance characteristics determined by [facility]. It has not been cleared or approved by the Food and Drug Administration. The FDA has determined that such clearance or approval is not necessary. [facility] ID Number [id number] HISTOCOMPATIBILITY SECTION DIRECTOR: Jj Peres, PhD, F([facility]) This test was performed using Polymerase Chain Reaction (PCR) and Sequence Specific Oligonucleotide Probes (SSOP) technique. Sequence Based Typing (SBT) may be used as a supplemental method when necessary. If you have questions, please call HLA Open Wagerer service at or email at [email or web address]. Performed By: #### L 4500.5000, L3100.8408, L3100.1725, L3410.9992, L501.5200, L3100.5600, L100.0100, L3300.0960, L3100.5800, L3300.8000, L3100.5700, L3100.7300, L3300.8200, L3100.7325, L3410.1400, L500.4050, L3100.7250, L501.9520, L503.0106, L3300.0450, L3100.7050, L509.1000, L3100.5450, L501.2300, L4500.0100, L101.9900, L4500.2000 ####[facility] [address] [place], [place], [address] L3300.8200on 01-11-2025 VITAMIN B6 35.9 ug/L Normal 3.4-65.2 [facility] Comment on above: Order Comment: Test( s) 735304-Xojumajadqzo Antigenwas developed and its performance characteristicsdetermined by [facility]. It has not been cleared or approvedby the Food and Drug Administration. Result Comment: Defi ciency: <3.4 Marginal: 3.4 - 5.1 Adequate: >5.1 Performed By: #### L 4500.5000, L3100.8408, L3100.1725, L3410.9992, L501.5200, L3100.5600, L100.0100, L3300.0960, L3100.5800, L3300.8000, L3100.5700, L3100.7300, L3300.8200, L3100.7325, L3410.1400, L500.4050, L3100.7250, L501.9520, L503.0106, L3300.0450, L3100.7050, L509.1000, L3100.5450, L501.2300, L4500.0100, L101.9900, L4500.2000 ####[facility] [address] [facility]. [place], [place], [id number] Lupus Anticoagulant Compon 0 01-11-2025 aPTT Coag (Bld) [Time] 35.3 s Normal 0.0-43.5 [facility] Comment on above: Order Comment: Test( s) 545125-Dsqcblnoasdd Antigenwas developed and its performance characteristicsdetermined by [employer]. It has not been cleared or approvedby the Food and Drug Administration. Performed By: #### L 4500.5000, L3100.8408, L3100.1725, L3410.9992, L501.5200, L3100.5600, L100.0100, L3300.0960, L3100.5800, L3300.8000, L3100.5700, L3100.7300, L3300.8200, L3100.7325, L3410.1400, L500.4050, L3100.7250, L501.9520, L503.0106, L3300.0450, L3100.7050, L509.1000, L3100.5450, L501.2300, L4500.0100, L101.9900, L4500.2000 ####[facility] [address] [place], [place], [id number] DILUTE PT (dPT) 37.1 sec Normal 0.0-47.6 [facility] Comment on above: Order Comment: Test( s) 714023-Yzdnsrxkeekc Antigenwas developed and its performance characteristicsdetermined by [employer]. It has not been cleared or approvedby the Food and Drug Administration. Performed By: #### L 4500.5000, L3100.8408, L3100.1725, L3410.9992, L501.5200, L3100.5600, L100.0100, L3300.0960, L3100.5800, L3300.8000, L3100.5700, L3100.7300, L3300.8200, L3100.7325, L3410.1400, L500.4050, L3100.7250, L501.9520, L503.0106, L3300.0450, L3100.7050, L509.1000, L3100.5450, L501.2300, L4500.0100, L101.9900, L4500.2000 ####[facility] [address] [place], [address] dPT Conf. Ratio 1.01 Ratio Normal 0.00-1.34 [facility] Comment on above: Order Comment: Test( s) 561342-Jsmnbnlfuptt Antigenwas developed and its performance characteristicsdetermined by [employer]. It has not been cleared or approvedby the Food and Drug Administration. Performed By: #### L 4500.5000, L3100.8408, L3100.1725, L3410.9992, L501.5200, L3100.5600, L100.0100, L3300.0960, L3100.5800, L3300.8000, L3100.5700, L3100.7300, L3300.8200, L3100.7325, L3410.1400, L500.4050, L3100.7250, L501.9520, L503.0106, L3300.0450, L3100.7050, L509.1000, L3100.5450, L501.2300, L4500.0100, L101.9900, L4500.2000 ####[facility] [address] [place], [address] DRVVT 42.0 sec Normal 0.0-47.0 [facility] Comment on above: Order Comment: Test( s) 548538-Dqqnkthtbqpp Antigenwas developed and its performance characteristicsdetermined by [employer]. It has not been cleared or approvedby the Food and Drug Administration. Performed By: #### L 4500.5000, L3100.8408, L3100.1725, L3410.9992, L501.5200, L3100.5600, L100.0100, L3300.0960, L3100.5800, L3300.8000, L3100.5700, L3100.7300, L3300.8200, L3100.7325, L3410.1400, L500.4050, L3100.7250, L501.9520, L503.0106, L3300.0450, L3100.7050, L509.1000, L3100.5450, L501.2300, L4500.0100, L101.9900, L4500.1999 ####[facility] [address] [place], [address] Interpretation Comment: Normal . [facility] Comment on above: Order Comment: Test( s) 111715-Layizvcgjocu Antigenwas developed and its performance characteristicsdetermined by [employer]. It has not been cleared or approvedby the Food and Drug Administration. Result Comment: No l upus anticoagulant was detected. Performed By: #### L 4500.5000, L3100.8408, L3100.1725, L3410.9992, L501.5200, L3100.5600, L100.0100, L3300.0960, L3100.5800, L3300.8000, L3100.5700, L3100.7300, L3300.8200, L3100.7325, L3410.1400, L500.4050, L3100.7250, L501.9520, L503.0106, L3300.0450, L3100.7050, L509.1000, L3100.5450, L501.2300, L4500.0100, L101.9900, L4500.1999 ####[facility] [address] [place], [address] THROMBIN TIME 20.7 sec Normal 0.0-23.0 [facility] Comment on above: Order Comment: Test( s) 139065-Whyknukpucyg Antigenwas developed and its performance characteristicsdetermined by [employer]. It has not been cleared or approvedby the Food and Drug Administration. Performed By: #### L 4500.5000, L3100.8408, L3100.1725, L3410.9992, L501.5200, L3100.5600, L100.0100, L3300.0960, L3100.5800, L3300.8000, L3100.5700, L3100.7300, L3300.8200, L3100.7325, L3410.1400, L500.4050, L3100.7250, L501.9520, L503.0106, L3300.0450, L3100.7050, L509.1000, L3100.5450, L501.2300, L4500.0100, L101.9900, L4500.2000 ####[facility] [address] [place], [address] Protein C Antigenon 01-12-20 PROTEIN C Ag 109 Normal 60-150 [facility] Comment on above: Order Comment: Test( s) 029736-Rfoexzdbnmhs Antigenwas developed and its performance characteristicsdetermined by [employer]. It has not been cleared or approvedby the Food and Drug Administration. Performed By: #### L 4500.5000, L3100.8408, L3100.1725, L3410.9992, L501.5200, L3100.5600, L100.0100, L3300.0960, L3100.5800, L3300.8000, L3100.5700, L3100.7300, L3300.8200, L3100.7325, L3410.1400, L500.4050, L3100.7250, L501.9520, L503.0106, L3300.0450, L3100.7050, L509.1000, L3100.5450, L501.2300, L4500.0100, L101.9900, L4500.2000 ####[facility] [address] [place], [address] Protein C, Functionalon 09-1 7-2025 PROTEIN C,FUNC 111 Normal 73-180 [facility] Comment on above: Order Comment: Test( s) 789683-Dbgdyuzpfbnn Antigenwas developed and its performance characteristicsdetermined by [employer]. It has not been cleared or approvedby the Food and Drug Administration. Result Comment: Perf ormed at: BN - [address] [id number] [employer]: Gerson Day MD, Phone: [phone] Performed at: - [address] [place] [address] [id number] [employer]: Leonard Oliver PhD, Phone: [phone] Performed at: [facility] [address] [place], [place] [id number] [employer]: Chioma Abbasi [facility], Phone: [phone] Performed at: 2 - [facility] [address] [place], [place] [id number] [employer]: Bhavana Milton PhD, Phone: [phone] Performed By: #### L 4500.5000, L3100.8408, L3100.1725, L3410.9992, L501.5200, L3100.5600, L100.0100, L3300.0960, L3100.5800, L3300.8000, L3100.5700, L3100.7300, L3300.8200, L3100.7325, L3410.1400, L500.4050, L3100.7250, L501.9520, L503.0106, L3300.0450, L3100.7050, L509.1000, L3100.5450, L501.2300, L4500.0100, L101.9900, L4500.2000 ####[facility] [address] [place], [place], [address] Protein S Antigenon 01-12-20 25 PROTEIN S, FREE 122 Normal 61-136 [facility] Comment on above: Order Comment: Test( s) 070383-Iwssuroqzitq Antigenwas developed and its performance characteristicsdetermined by [employer]. It has not been cleared or approvedby the Food and Drug Administration. Performed By: #### L 4500.5000, L3100.8408, L3100.1725, L3410.9992, L501.5200, L3100.5600, L100.0100, L3300.0960, L3100.5800, L3300.8000, L3100.5700, L3100.7300, L3300.8200, L3100.7325, L3410.1400, L500.4050, L3100.7250, L501.9520, L503.0106, L3300.0450, L3100.7050, L509.1000, L3100.5450, L501.2300, L4500.0100, L101.9900, L4500.2000 ####[facility] [address] [facility]. [place], [place], [id number] PROTEIN S,TOTAL 130 Normal 60-150 [facility] Comment on above: Order Comment: Test( s) 109801-Ylqwfkbjurow Antigenwas developed and its performance characteristicsdetermined by [employer]. It has not been cleared or approvedby the Food and Drug Administration. Result Comment: This test was developed and its performance characteristics determined by [employer]. It has not been cleared or approved by the Food and Drug Administration. Performed By: #### L 4500.5000, L3100.8408, L3100.1725, L3410.9992, L501.5200, L3100.5600, L100.0100, L3300.0960, L3100.5800, L3300.8000, L3100.5700, L3100.7300, L3300.8200, L3100.7325, L3410.1400, L500.4050, L3100.7250, L501.9520, L503.0106, L3300.0450, L3100.7050, L509.1000, L3100.5450, L501.2300, L4500.0100, L101.9900, L4500.2000 ####[facility] [address] [place], [address] Protein S, Functionalon 12-26 PROTEIN S, FUNC 107 Normal 63-140 [facility] Comment on above: Order Comment: Test( s) 758710-Ciidjeubamec Antigenwas developed and its performance characteristicsdetermined by [employer]. It has not been cleared or approvedby the Food and Drug Administration. Result Comment: Prot ein S activity may be falsely increased (masking an abnormal, low result) in patients receiving direct Xa inhibitor (e.g., rivaroxaban, apixaban, edoxaban) or a direct thrombin inhibitor (e.g., dabigatran) anticoagulant treatment due to assay interference by these drugs. Performed By: #### L 4500.5000, L3100.8408, L3100.1725, L3410.9992, L501.5200, L3100.5600, L100.0100, L3300.0960, L3100.5800, L3300.8000, L3100.5700, L3100.7300, L3300.8200, L3100.7325, L3410.1400, L500.4050, L3100.7250, L501.9520, L503.0106, L3300.0450, L3100.7050, L509.1000, L3100.5450, L501.2300, L4500.0100, L101.9900, L4500.2000 ####[facility] [address] [place], [address] Vitamin B1, Thiamineon 01-11 VIT B1 THIAMINE 180.6 nmol/L Normal 66.5-200.0 [facility] Comment on above: Order Comment: Test( s) 755542-Rbtjzpnoffkn Antigenwas developed and its performance characteristicsdetermined by [employer]. It has not been cleared or approvedby the Food and Drug Administration. Performed By: #### L 4500.5000, L3100.8408, L3100.1725, L3410.9992, L501.5200, L3100.5600, L100.0100, L3300.0960, L3100.5800, L3300.8000, L3100.5700, L3100.7300, L3300.8200, L3100.7325, L3410.1400, L500.4050, L3100.7250, L501.9520, L503.0106, L3300.0450, L3100.7050, L509.1000, L3100.5450, L501.2300, L4500.0100, L101.9900, L4500.2000 ####[facility] [address] [facility]. [place], [place], [address] KORINA w/ Reflex Mult Confirmon 01-07-2025 ANTI-DNA (DS)AB TNP Normal [facility] Comment on above: Performed By: #### L 4500.5000, L3100.8408, L3100.1725, L3410.9992, L501.5200, L3100.5600, L100.0100, L3300.0960, L3100.5800, L3300.8000, L3100.5700, L3100.7300, L3300.8200, L3100.7325, L3410.1400, L500.4050, L3100.7250, L501.9520, L503.0106, L3300.0450, L3100.7050, L509.1000, L3100.5450, L501.2300, L4500.0100, L101.9900, L4500.2000 #### [facility] [address] [place], [place], [address] ANTI-SS-A TNP Normal [facility] Comment on above: Performed By: #### L 4500.5000, L3100.8408, L3100.1725, L3410.9992, L501.5200, L3100.5600, L100.0100, L3300.0960, L3100.5800, L3300.8000, L3100.5700, L3100.7300, L3300.8200, L3100.7325, L3410.1400, L500.4050, L3100.7250, L501.9520, L503.0106, L3300.0450, L3100.7050, L509.1000, L3100.5450, L501.2300, L4500.0100, L101.9900, L4500.1999 #### [facility] [address] [place], [place], [id number] ANTI-SS-B TNP Normal [facility] Comment on above: Performed By: #### L 4500.5000, L3100.8408, L3100.1725, L3410.9992, L501.5200, L3100.5600, L100.0100, L3300.0960, L3100.5800, L3300.8000, L3100.5700, L3100.7300, L3300.8200, L3100.7325, L3410.1400, L500.4050, L3100.7250, L501.9520, L503.0106, L3300.0450, L3100.7050, L509.1000, L3100.5450, L501.2300, L4500.0100, L101.9900, L4500.1999 #### [facility] [address] [place], [place], [address] Vitamin D 1,25-Dihydroxyon 0 01-06-2025 VIT D 1,25 DIHY 24.4 pg/mL Abnormal 24.8-81.5 [facility] Comment on above: Performed By: #### L 4500.5000, L3100.8408, L3100.1725, L3410.9992, L501.5200, L3100.5600, L100.0100, L3300.0960, L3100.5800, L3300.8000, L3100.5700, L3100.7300, L3300.8200, L3100.7325, L3410.1400, L500.4050, L3100.7250, L501.9520, L503.0106, L3300.0450, L3100.7050, L509.1000, L3100.5450, L501.2300, L4500.0100, L101.9900, L4500.2000 ####[facility] [address] [place], [address] L3410.9992on 01-05-2025 [facility]. COMMENT Normal . [facility] Comment on above: Order Comment: 62225 5Calcitonin Result Comment: Test Ordered: 790207 Calcitonin, Serum Calcitonin, Serum 4.2 pg/mL Reference Range: 0.0-8.4 Siemens Immulite 2000 Immunochemiluminometric assay (ICMA) Values obtained with different assay methods or kits cannot be used interchangeably. Results cannot be interpreted as absolute evidence of the presence or absence of malignant disease. Performed at: [address] [id number] [employer]: Gerson Day MD, Phone: [phone] Performed at: [address] [id number] [employer]: Leonard Oliver PhD, Phone: [phone] Performed By: #### L 4500.5000, L3100.8408, L3100.1725, L3410.9992, L501.5200, L3100.5600, L100.0100, L3300.0960, L3100.5800, L3300.8000, L3100.5700, L3100.7300, L3300.8200, L3100.7325, L3410.1400, L500.4050, L3100.7250, L501.9520, L503.0106, L3300.0450, L3100.7050, L509.1000, L3100.5450, L501.2300, L4500.0100, L101.9900, L4500.2000 ####[facility] [address] [place], [address] Absolute lymphocyte countOrd ered By: Jean-Paul Estrada on 01-02-2025 Lymphocytes Auto (Unsp spec) [#/Vol] 1.66 10*3/uL 0.83-4.51 [facility] Absolute neutrophil countOrd ered By: Jean-Paul Estrada on 01-02-2025 Neutrophils (Bld) [#/Vol] 5.5 10*3/uL 2.0-7.7 [facility] Anion gap in Serum or Plasma Ordered By: Jean-Paul Estrada on 01-02-2025 Anion gap [Moles/Vol] 17 mmol/L High 5-[address] [facility] Automated lymphocyte count a s percentage of total leukocytesOrdered By: Jean-Paul Estrada on 01-02-2025 Lymphocytes/100 WBC Auto (Unsp spec) 19.7 % 19-41 [facility] BUN/creatinine ratioOrdered By: [facility] on 01-02-2025 Urea nitrogen/Creatinine [Mass ratio] 20.0 mg/mg 10-20 [facility] Basophil percentageOrdered B y: Jean-Paul Estrada on 01-02-2025 Basophils/100 WBC (Bld) 1.0 % 0-1 [facility] Bilirubin, totalOrdered By: Jean-Paul [facility] on 01-02-2025 Bilirubin [Mass/Vol] 0.34 mg/dL 0.00-1.30 [facility] Blood or tissue coagulation factor II targeted mutation analysis by molecular geneticOrdered By: Jean-Paul Estrada on 01-02-2025 F2 gene targeted mutation analysis [employer] Nom (Bld/Tiss) Comment . [facility] Comment on above: Result: c.*97G>A - N ot DetectedThis result is not associated with an increased risk for venousthromboembolism. See Additional Clinical Information andComments.Additional Clinical Information:Venous thromboembolism is a multifactorial disease influenced bygenetic, environmental, and circumstantial risk factors. The c.*97G>Avariant in the F2 gene is a genetic risk factor for venousthromboembolism. Heterozygous carriers have a 2- to 4-fold increasedrisk for venous thromboembolism. Homozygotes for the c.*97G>A variantare rare. The annual risk of VTE in homozygotes has been reported lety 1.1%/year. Individuals who carry both a c.*97G>A variant in theF2 gene and a c.1601G>A (p. [id number]) variant in the F5 gene(commonly referred to as Factor V Leiden) have an approximately 20-fold increased risk for venous thromboembolism. Risks are likely lety even higher in more complex genotype combinations involving theF2 c.*97G>A variant and Factor V Leiden (PMID: [id number]). Additionalrisk factors include but are not limited to: deficiency of protein C,protein S, or antithrombin III, age, male sex, personal or familyhistory of deep vein thromboembolism, smoking, surgery, prolongedimmobilization, malignant neoplasm, tamoxifen treatment, raloxifenetreatment, oral contraceptive use, hormone replacement therapy, andpregnancy. Management of thrombotic risk and thrombotic events shouldfollow established guidelines and fit the clinical circumstance. Thisresult cannot predict the occurrence or recurrence of a thromboticevent.Comments:Genetic counseling is recommended to discuss the potential clinicalimplications of positive results, as well as recommendations fortesting family members.Genetic Coordinators are available for health care providers to discussresults at [phone] Details:Variant analyzed: c.*97G>A, previously referred to as [id number]/Limitations:DNA analysis of the F2 gene (NM_[id number]) was performed by PCRamplification followed by restriction enzyme analysis. The diagnosticsensitivity is >99%. Results must be combined with clinicalinformation for the most accurate interpretation. Molecular-basedtesting is highly accurate, but as in any laboratory test, diagnosticerrors may occur. False positive or false negative results may occurfor reasons that include genetic variants, blood transfusions, bonemarrow transplantation, somatic or tissue-specific mosaicism,mislabeled samples, or erroneous representation of familyrelationships.This test was developed and its performance characteristics determinedby [employer]. It has not been cleared or approved by the Food and DrugAdministration.References:Anish S, Amy AK, Adam R, Tiera WW, Nick JH; [facility] ProfessionalPractice and Guidelines Committee. Addendum: [employer] consensus statement on factor V Leiden mutationtesting. [employer]. 2020Jun 29. doi: 10.1038/l40150-713-38075-x.PMID: 10990238.Luis CAMERON. Prothrombin Thrombophilia. 2005Nov 18[Updated 2020May 31]. In: Sj MP, Karina HH, Mary RA, et al.,editors. Adolph(R) [Internet]. [place] ([place]): [facility]; [id number]. Available from:https://www.ncbi.nlm.nih.gov/books/UPG5492/Bobo S, Amy AK, Stone X, Reid B, Radha EB, Diana P, Disha CS;[facility] Laboratory Scale Shooter Committee. Venous thromboembolismlaboratory testing (factor V Leiden and factor II c.*97G>A),2018 update: a technical standard of the [employer] ([employer]). Jailyn Med. 2018 Mar;20(12):0619-0942.doi: 10.1038/[id number]. Epub 2017Jan 29. PMID: 81836108. CBC W/Diff, Automatedon 09-0 -2024 Absolute Lymph 1.66 X10 3/uL Normal 0.83-4.51 [facility] Comment on above: Performed By: #### L 4500.5000, L3100.8408, L3100.1725, L3410.9992, L501.5200, L3100.5600, L100.0100, L3300.0960, L3100.5800, L3300.8000, L3100.5700, L3100.7300, L3300.8200, L3100.7325, L3410.1400, L500.4050, L3100.7250, L501.9520, L503.0106, L3300.0450, L3100.7050, L509.1000, L3100.5450, L501.2300, L4500.0100, L101.9900, L4500.2000 ####[facility] [address] [place], [place], [id number] Absolute Neut 5.5 X10 3/uL Normal 2.0-7.7 [facility] Comment on above: Performed By: #### L 4500.5000, L3100.8408, L3100.1725, L3410.9992, L501.5200, L3100.5600, L100.0100, L3300.0960, L3100.5800, L3300.8000, L3100.5700, L3100.7300, L3300.8200, L3100.7325, L3410.1400, L500.4050, L3100.7250, L501.9520, L503.0106, L3300.0450, L3100.7050, L509.1000, L3100.5450, L501.2300, L4500.0100, L101.9900, L4500.2000 ####[facility] [address] [place], [place], [phone](418) Basophils/100 WBC (Bld) 1.0 % Normal 0-1 [facility] Comment on above: Performed By: #### L 4500.5000, L3100.8408, L3100.1725, L3410.9992, L501.5200, L3100.5600, L100.0100, L3300.0960, L3100.5800, L3300.8000, L3100.5700, L3100.7300, L3300.8200, L3100.7325, L3410.1400, L500.4050, L3100.7250, L501.9520, L503.0106, L3300.0450, L3100.7050, L509.1000, L3100.5450, L501.2300, L4500.0100, L101.9900, L4500.2000 ####[facility] [address] [facility] [place], [address] Eosinophils/100 WBC (Bld) 2.9 % Normal 0-5 [facility] Comment on above: Performed By: #### L 4500.5000, L3100.8408, L3100.1725, L3410.9992, L501.5200, L3100.5600, L100.0100, L3300.0960, L3100.5800, L3300.8000, L3100.5700, L3100.7300, L3300.8200, L3100.7325, L3410.1400, L500.4050, L3100.7250, L501.9520, L503.0106, L3300.0450, L3100.7050, L509.1000, L3100.5450, L501.2300, L4500.0100, L101.9900, L4500.2000 ####[facility] [address] [facility]. [place], [place], [id number] Erythrocyte distribution width (RBC) [Ratio] 13.2 % Normal 11.6-14.6 [facility] Comment on above: Performed By: #### L 4500.5000, L3100.8408, L3100.1725, L3410.9992, L501.5200, L3100.5600, L100.0100, L3300.0960, L3100.5800, L3300.8000, L3100.5700, L3100.7300, L3300.8200, L3100.7325, L3410.1400, L500.4050, L3100.7250, L501.9520, L503.0106, L3300.0450, L3100.7050, L509.1000, L3100.5450, L501.2300, L4500.0100, L101.9900, L4500.1999 ####[facility] [address] [facility]. [place], [place], [phone] Hematocrit (Bld) [Volume fraction] 41.0 % Normal 40-54 [facility] Comment on above: Performed By: #### L 4500.5000, L3100.8408, L3100.1725, L3410.9992, L501.5200, L3100.5600, L100.0100, L3300.0960, L3100.5800, L3300.8000, L3100.5700, L3100.7300, L3300.8200, L3100.7325, L3410.1400, L500.4050, L3100.7250, L501.9520, L503.0106, L3300.0450, L3100.7050, L509.1000, L3100.5450, L501.2300, L4500.0100, L101.9900, L4500.2000 ####[facility] [address] [place], [place], [phone](619) Hemoglobin (Bld) [Mass/Vol] 13.7 g/dL Normal 13.0-16.5 [facility] Comment on above: Performed By: #### L 4500.5000, L3100.8408, L3100.1725, L3410.9992, L501.5200, L3100.5600, L100.0100, L3300.0960, L3100.5800, L3300.8000, L3100.5700, L3100.7300, L3300.8200, L3100.7325, L3410.1400, L500.4050, L3100.7250, L501.9520, L503.0106, L3300.0450, L3100.7050, L509.1000, L3100.5450, L501.2300, L4500.0100, L101.9900, L4500.2000 ####[facility] [address] [place], [place], [id number] IG% 0.500 Normal 0.0-0.9 [facility] Comment on above: Result Comment: IG% - Immature Granulocytes (promyelocytes, myelocytes and metamyelocytes) > 1% indicates that a LEFT SHIFT is Present. Performed By: #### L 4500.5000, L3100.8408, L3100.1725, L3410.9992, L501.5200, L3100.5600, L100.0100, L3300.0960, L3100.5800, L3300.8000, L3100.5700, L3100.7300, L3300.8200, L3100.7325, L3410.1400, L500.4050, L3100.7250, L501.9520, L503.0106, L3300.0450, L3100.7050, L509.1000, L3100.5450, L501.2300, L4500.0100, L101.9900, L4500.2000 ####[facility] [address] [place], [place], [phone] Lymphocytes/100 WBC (Bld) 19.7 % Normal 19-41 [facility] Comment on above: Performed By: #### L 4500.5000, L3100.8408, L3100.1725, L3410.9992, L501.5200, L3100.5600, L100.0100, L3300.0960, L3100.5800, L3300.8000, L3100.5700, L3100.7300, L3300.8200, L3100.7325, L3410.1400, L500.4050, L3100.7250, L501.9520, L503.0106, L3300.0450, L3100.7050, L509.1000, L3100.5450, L501.2300, L4500.0100, L101.9900, L4500.2000 ####[facility] [address] [facility]. [place], [place], [phone] MCH (RBC) [Entitic mass] 29.4 pg Normal 27.0-32.0 [facility] Comment on above: Performed By: #### L 4500.5000, L3100.8408, L3100.1725, L3410.9992, L501.5200, L3100.5600, L100.0100, L3300.0960, L3100.5800, L3300.8000, L3100.5700, L3100.7300, L3300.8200, L3100.7325, L3410.1400, L500.4050, L3100.7250, L501.9520, L503.0106, L3300.0450, L3100.7050, L509.1000, L3100.5450, L501.2300, L4500.0100, L101.9900, L4500.2000 ####[facility] [address] [place], [address] MCHC (RBC) [Mass/Vol] 33.4 g/dL Normal 32-[address] [facility] Comment on above: Performed By: #### L 4500.5000, L3100.8408, L3100.1725, L3410.9992, L501.5200, L3100.5600, L100.0100, L3300.0960, L3100.5800, L3300.8000, L3100.5700, L3100.7300, L3300.8200, L3100.7325, L3410.1400, L500.4050, L3100.7250, L501.9520, L503.0106, L3300.0450, L3100.7050, L509.1000, L3100.5450, L501.2300, L4500.0100, L101.9900, L4500.2000 ####[facility] [address] [place], [place], [phone] MCV (RBC) [Entitic vol] 88.0 fL Normal 80-94 [facility] Comment on above: Performed By: #### L 4500.5000, L3100.8408, L3100.1725, L3410.9992, L501.5200, L3100.5600, L100.0100, L3300.0960, L3100.5800, L3300.8000, L3100.5700, L3100.7300, L3300.8200, L3100.7325, L3410.1400, L500.4050, L3100.7250, L501.9520, L503.0106, L3300.0450, L3100.7050, L509.1000, L3100.5450, L501.2300, L4500.0100, L101.9900, L4500.2000 ####[facility] [address] [place], [address] Monocytes/100 WBC (Bld) 10.3 % High 0-10 [facility] Comment on above: Performed By: #### L 4500.5000, L3100.8408, L3100.1725, L3410.9992, L501.5200, L3100.5600, L100.0100, L3300.0960, L3100.5800, L3300.8000, L3100.5700, L3100.7300, L3300.8200, L3100.7325, L3410.1400, L500.4050, L3100.7250, L501.9520, L503.0106, L3300.0450, L3100.7050, L509.1000, L3100.5450, L501.2300, L4500.0100, L101.9900, L4500.2000 ####[facility] [address] [place], [place], [phone](810) Neutrophils/100 WBC (Bld) 65.6 % Normal 47-70 [facility] Comment on above: Performed By: #### L 4500.5000, L3100.8408, L3100.1725, L3410.9992, L501.5200, L3100.5600, L100.0100, L3300.0960, L3100.5800, L3300.8000, L3100.5700, L3100.7300, L3300.8200, L3100.7325, L3410.1400, L500.4050, L3100.7250, L501.9520, L503.0106, L3300.0450, L3100.7050, L509.1000, L3100.5450, L501.2300, L4500.0100, L101.9900, L4500.2000 ####[facility] [address] [facility]. [place], [place], [phone] Nucleated RBC (Bld) [#/Vol] 0 10*3/uL Normal 0-5 [facility] Comment on above: Performed By: #### L 4500.5000, L3100.8408, L3100.1725, L3410.9992, L501.5200, L3100.5600, L100.0100, L3300.0960, L3100.5800, L3300.8000, L3100.5700, L3100.7300, L3300.8200, L3100.7325, L3410.1400, L500.4050, L3100.7250, L501.9520, L503.0106, L3300.0450, L3100.7050, L509.1000, L3100.5450, L501.2300, L4500.0100, L101.9900, L4500.2000 ####[facility] [address] [place], [address] Platelet mean volume (Bld) [Entitic vol] 11.2 fL Normal 6.2-12.0 [facility] Comment on above: Performed By: #### L 4500.5000, L3100.8408, L3100.1725, L3410.9992, L501.5200, L3100.5600, L100.0100, L3300.0960, L3100.5800, L3300.8000, L3100.5700, L3100.7300, L3300.8200, L3100.7325, L3410.1400, L500.4050, L3100.7250, L501.9520, L503.0106, L3300.0450, L3100.7050, L509.1000, L3100.5450, L501.2300, L4500.0100, L101.9900, L4500.1999 ####[facility] [address] [facility] [place], [address] Platelets (Bld) [#/Vol] 258 10*3/uL Normal 150-450 [facility] Comment on above: Performed By: #### L 4500.5000, L3100.8408, L3100.1725, L3410.9992, L501.5200, L3100.5600, L100.0100, L3300.0960, L3100.5800, L3300.8000, L3100.5700, L3100.7300, L3300.8200, L3100.7325, L3410.1400, L500.4050, L3100.7250, L501.9520, L503.0106, L3300.0450, L3100.7050, L509.1000, L3100.5450, L501.2300, L4500.0100, L101.9900, L4500.2000 ####[facility] [address] [place], [place], [phone](687) RBC (Bld) [#/Vol] 4.66 10*6/uL Normal 4.6-6.2 [facility] Comment on above: Performed By: #### L 4500.5000, L3100.8408, L3100.1725, L3410.9992, L501.5200, L3100.5600, L100.0100, L3300.0960, L3100.5800, L3300.8000, L3100.5700, L3100.7300, L3300.8200, L3100.7325, L3410.1400, L500.4050, L3100.7250, L501.9520, L503.0106, L3300.0450, L3100.7050, L509.1000, L3100.5450, L501.2300, L4500.0100, L101.9900, L4500.1999 ####[facility] [address] [place], [address] RDW SD 42.5 fl Normal 35.1-43.9 [facility] Comment on above: Performed By: #### L 4500.5000, L3100.8408, L3100.1725, L3410.9992, L501.5200, L3100.5600, L100.0100, L3300.0960, L3100.5800, L3300.8000, L3100.5700, L3100.7300, L3300.8200, L3100.7325, L3410.1400, L500.4050, L3100.7250, L501.9520, L503.0106, L3300.0450, L3100.7050, L509.1000, L3100.5450, L501.2300, L4500.0100, L101.9900, L4500.2000 ####[facility] [address] [facility] [place], [address] WBC (Bld) [#/Vol] 8.4 10*3/uL Normal 4.4-11.0 [facility] Comment on above: Performed By: #### L 4500.5000, L3100.8408, L3100.1725, L3410.9992, L501.5200, L3100.5600, L100.0100, L3300.0960, L3100.5800, L3300.8000, L3100.5700, L3100.7300, L3300.8200, L3100.7325, L3410.1400, L500.4050, L3100.7250, L501.9520, L503.0106, L3300.0450, L3100.7050, L509.1000, L3100.5450, L501.2300, L4500.0100, L101.9900, L4500.2000 ####[facility] [address] [place], [address] Carbon dioxide, total [Moles /volume] in Central venous bloodOrdered By: Jean-Paul Estrada on 01-02-2025 CO2 [Moles/Vol] 21.8 mmol/L 21.0-32.0 [facility] Chloride assayOrdered By: Ra olman Estrada on 01-02-2025 Chloride [Moles/Vol] 98 mmol/L 98-108 [facility] Comprehensive Metabolic Prof ilon 01-02-2025 Albumin [Mass/Vol] 4.5 g/dL Normal 3.5-5.0 [facility] Comment on above: Performed By: #### L 4500.5000, L3100.8408, L3100.1725, L3410.9992, L501.5200, L3100.5600, L100.0100, L3300.0960, L3100.5800, L3300.8000, L3100.5700, L3100.7300, L3300.8200, L3100.7325, L3410.1400, L500.4050, L3100.7250, L501.9520, L503.0106, L3300.0450, L3100.7050, L509.1000, L3100.5450, L501.2300, L4500.0100, L101.9900, L4500.2000 #### [facility] [address], [address] Albumin/Globulin [Mass ratio] 1.7 {ratio} Normal 0.9-2.4 [facility] Comment on above: Performed By: #### L 4500.5000, L3100.8408, L3100.1725, L3410.9992, L501.5200, L3100.5600, L100.0100, L3300.0960, L3100.5800, L3300.8000, L3100.5700, L3100.7300, L3300.8200, L3100.7325, L3410.1400, L500.4050, L3100.7250, L501.9520, L503.0106, L3300.0450, L3100.7050, L509.1000, L3100.5450, L501.2300, L4500.0100, L101.9900, L4500.1999 #### [facility] [address] [place], [place], [id number] ALK PHOS 65 U/L Normal 40-129 [facility] Comment on above: Performed By: #### L 4500.5000, L3100.8408, L3100.1725, L3410.9992, L501.5200, L3100.5600, L100.0100, L3300.0960, L3100.5800, L3300.8000, L3100.5700, L3100.7300, L3300.8200, L3100.7325, L3410.1400, L500.4050, L3100.7250, L501.9520, L503.0106, L3300.0450, L3100.7050, L509.1000, L3100.5450, L501.2300, L4500.0100, L101.9900, L4500.1999 #### [facility] [address] [facility] [place], [address] ALT [Catalytic activity/Vol] 32 U/L Normal <=46 [facility] Comment on above: Performed By: #### L 4500.5000, L3100.8408, L3100.1725, L3410.9992, L501.5200, L3100.5600, L100.0100, L3300.0960, L3100.5800, L3300.8000, L3100.5700, L3100.7300, L3300.8200, L3100.7325, L3410.1400, L500.4050, L3100.7250, L501.9520, L503.0106, L3300.0450, L3100.7050, L509.1000, L3100.5450, L501.2300, L4500.0100, L101.9900, L4500.2000 #### [facility] [address] [facility] [place], [address] AST [Catalytic activity/Vol] 32 U/L Normal <=37 [facility] Comment on above: Performed By: #### L 4500.5000, L3100.8408, L3100.1725, L3410.9992, L501.5200, L3100.5600, L100.0100, L3300.0960, L3100.5800, L3300.8000, L3100.5700, L3100.7300, L3300.8200, L3100.7325, L3410.1400, L500.4050, L3100.7250, L501.9520, L503.0106, L3300.0450, L3100.7050, L509.1000, L3100.5450, L501.2300, L4500.0100, L101.9900, L4500.2000 #### [facility] [address] [place], [place], [id number] Bilirubin [Mass/Vol] 0.34 mg/dL Normal 0.00-1.30 [facility] Comment on above: Performed By: #### L 4500.5000, L3100.8408, L3100.1725, L3410.9992, L501.5200, L3100.5600, L100.0100, L3300.0960, L3100.5800, L3300.8000, L3100.5700, L3100.7300, L3300.8200, L3100.7325, L3410.1400, L500.4050, L3100.7250, L501.9520, L503.0106, L3300.0450, L3100.7050, L509.1000, L3100.5450, L501.2300, L4500.0100, L101.9900, L4500.2000 #### [facility] [address] [facility] [place], [address] (961) BUN/CRE 20.0 RATIO Normal 10-20 [facility] Comment on above: Performed By: #### L 4500.5000, L3100.8408, L3100.1725, L3410.9992, L501.5200, L3100.5600, L100.0100, L3300.0960, L3100.5800, L3300.8000, L3100.5700, L3100.7300, L3300.8200, L3100.7325, L3410.1400, L500.4050, L3100.7250, L501.9520, L503.0106, L3300.0450, L3100.7050, L509.1000, L3100.5450, L501.2300, L4500.0100, L101.9900, L4500.2000 #### [facility] [address] [facility]. [place], [place], [id number] Calcium [Mass/Vol] 9.7 mg/dL Normal 7.6-11.0 [facility] Comment on above: Performed By: #### L 4500.5000, L3100.8408, L3100.1725, L3410.9992, L501.5200, L3100.5600, L100.0100, L3300.0960, L3100.5800, L3300.8000, L3100.5700, L3100.7300, L3300.8200, L3100.7325, L3410.1400, L500.4050, L3100.7250, L501.9520, L503.0106, L3300.0450, L3100.7050, L509.1000, L3100.5450, L501.2300, L4500.0100, L101.9900, L4500.2000 #### [facility] [address] [place], [address] Chloride [Moles/Vol] 98 mmol/L Normal 98-108 [facility] Comment on above: Performed By: #### L 4500.5000, L3100.8408, L3100.1725, L3410.9992, L501.5200, L3100.5600, L100.0100, L3300.0960, L3100.5800, L3300.8000, L3100.5700, L3100.7300, L3300.8200, L3100.7325, L3410.1400, L500.4050, L3100.7250, L501.9520, L503.0106, L3300.0450, L3100.7050, L509.1000, L3100.5450, L501.2300, L4500.0100, L101.9900, L4500.2000 #### [facility] [address] [place], [address] CO2 [Moles/Vol] 21.8 mmol/L Normal 21.0-32.0 [facility] Comment on above: Performed By: #### L 4500.5000, L3100.8408, L3100.1725, L3410.9992, L501.5200, L3100.5600, L100.0100, L3300.0960, L3100.5800, L3300.8000, L3100.5700, L3100.7300, L3300.8200, L3100.7325, L3410.1400, L500.4050, L3100.7250, L501.9520, L503.0106, L3300.0450, L3100.7050, L509.1000, L3100.5450, L501.2300, L4500.0100, L101.9900, L4500.2000 #### [facility] [address] [place], [address] Creatinine [Mass/Vol] 1.14 mg/dL Normal 0.70-1.[address] [facility] Comment on above: Performed By: #### L 4500.5000, L3100.8408, L3100.1725, L3410.9992, L501.5200, L3100.5600, L100.0100, L3300.0960, L3100.5800, L3300.8000, L3100.5700, L3100.7300, L3300.8200, L3100.7325, L3410.1400, L500.4050, L3100.7250, L501.9520, L503.0106, L3300.0450, L3100.7050, L509.1000, L3100.5450, L501.2300, L4500.0100, L101.9900, L4500.2000 #### [facility] [address] [place], [address] GAP 17 High 5-15 [facility] Comment on above: Performed By: #### L 4500.5000, L3100.8408, L3100.1725, L3410.9992, L501.5200, L3100.5600, L100.0100, L3300.0960, L3100.5800, L3300.8000, L3100.5700, L3100.7300, L3300.8200, L3100.7325, L3410.1400, L500.4050, L3100.7250, L501.9520, L503.0106, L3300.0450, L3100.7050, L509.1000, L3100.5450, L501.2300, L4500.0100, L101.9900, L4500.1999 #### [facility] [address] [facility] [place], [address] GFR/1.73 sq M.predicted among non-blacks MDRD (S/P/Bld) [Vol rate/Area] 74 mL/min/{1.73_m2} Normal >60 [facility] Comment on above: Result Comment: mL/m in/1.73m2 CKD-EPI Creatinine Equation (2020) Performed By: #### L 4500.5000, L3100.8408, L3100.1725, L3410.9992, L501.5200, L3100.5600, L100.0100, L3300.0960, L3100.5800, L3300.8000, L3100.5700, L3100.7300, L3300.8200, L3100.7325, L3410.1400, L500.4050, L3100.7250, L501.9520, L503.0106, L3300.0450, L3100.7050, L509.1000, L3100.5450, L501.2300, L4500.0100, L101.9900, L4500.2000 #### [facility] [address] [place], [address] (612) Globulin (S) [Mass/Vol] 2.7 g/dL Normal 2.2-4.2 [facility] Comment on above: Performed By: #### L 4500.5000, L3100.8408, L3100.1725, L3410.9992, L501.5200, L3100.5600, L100.0100, L3300.0960, L3100.5800, L3300.8000, L3100.5700, L3100.7300, L3300.8200, L3100.7325, L3410.1400, L500.4050, L3100.7250, L501.9520, L503.0106, L3300.0450, L3100.7050, L509.1000, L3100.5450, L501.2300, L4500.0100, L101.9900, L4500.2000 #### [facility] [address] [facility] [place], [address] (409) Glucose [Mass/Vol] 99 mg/dL Normal 70-99 [facility] Comment on above: Performed By: #### L 4500.5000, L3100.8408, L3100.1725, L3410.9992, L501.5200, L3100.5600, L100.0100, L3300.0960, L3100.5800, L3300.8000, L3100.5700, L3100.7300, L3300.8200, L3100.7325, L3410.1400, L500.4050, L3100.7250, L501.9520, L503.0106, L3300.0450, L3100.7050, L509.1000, L3100.5450, L501.2300, L4500.0100, L101.9900, L4500.2000 #### [facility] [address] [facility]. [place], [place], [phone] Potassium [Moles/Vol] 3.4 mmol/L Normal 3.3-5.[address] [facility] Comment on above: Performed By: #### L 4500.5000, L3100.8408, L3100.1725, L3410.9992, L501.5200, L3100.5600, L100.0100, L3300.0960, L3100.5800, L3300.8000, L3100.5700, L3100.7300, L3300.8200, L3100.7325, L3410.1400, L500.4050, L3100.7250, L501.9520, L503.0106, L3300.0450, L3100.7050, L509.1000, L3100.5450, L501.2300, L4500.0100, L101.9900, L4500.2000 #### [facility] [address] [facility]. [place], [place], [id number] [phone] Sodium [Moles/Vol] 137 mmol/L Normal 133-145 [facility] Comment on above: Performed By: #### L 4500.5000, L3100.8408, L3100.1725, L3410.9992, L501.5200, L3100.5600, L100.0100, L3300.0960, L3100.5800, L3300.8000, L3100.5700, L3100.7300, L3300.8200, L3100.7325, L3410.1400, L500.4050, L3100.7250, L501.9520, L503.0106, L3300.0450, L3100.7050, L509.1000, L3100.5450, L501.2300, L4500.0100, L101.9900, L4500.2000 #### [facility] [address] [place], [place], [id number] T PROT 7.2 g/dL Normal 5.9-8.4 [facility] Comment on above: Performed By: #### L 4500.5000, L3100.8408, L3100.1725, L3410.9992, L501.5200, L3100.5600, L100.0100, L3300.0960, L3100.5800, L3300.8000, L3100.5700, L3100.7300, L3300.8200, L3100.7325, L3410.1400, L500.4050, L3100.7250, L501.9520, L503.0106, L3300.0450, L3100.7050, L509.1000, L3100.5450, L501.2300, L4500.0100, L101.9900, L4500.2000 #### [facility] [address] [facility]. [place], [place], [id number] Urea nitrogen [Mass/Vol] 23 mg/dL High 4-19 [facility] Comment on above: Performed By: #### L 4500.5000, L3100.8408, L3100.1725, L3410.9992, L501.5200, L3100.5600, L100.0100, L3300.0960, L3100.5800, L3300.8000, L3100.5700, L3100.7300, L3300.8200, L3100.7325, L3410.1400, L500.4050, L3100.7250, L501.9520, L503.0106, L3300.0450, L3100.7050, L509.1000, L3100.5450, L501.2300, L4500.0100, L101.9900, L4500.1999 #### [facility] [address] [place], [address] Dilute Cullen's viper venom timeOrdered By: Jean-Paul Estrada on 01-02-2025 dRVVT Coag (PPP) [Time] 42.0 s 0.0-47.0 [facility] Eosinophil percentageOrdered By: Jean-Paul Estrada on 01-02-2025 Eosinophils/100 WBC (Bld) 2.9 % 0-5 [facility] Erythrocyte Sed Rateon 01-02 SED RATE 19 mm/hr Normal 0-20 [facility] Comment on above: Performed By: #### L 4500.5000, L3100.8408, L3100.1725, L3410.9992, L501.5200, L3100.5600, L100.0100, L3300.0960, L3100.5800, L3300.8000, L3100.5700, L3100.7300, L3300.8200, L3100.7325, L3410.1400, L500.4050, L3100.7250, L501.9520, L503.0106, L3300.0450, L3100.7050, L509.1000, L3100.5450, L501.2300, L4500.0100, L101.9900, L4500.1999 ####[facility] [id number] [place], [place], [id number] Erythrocyte distribution wid th ratioOrdered By: Jean-Paul Estrada on 01-02-2025 Erythrocyte distribution width (RBC) [Ratio] 13.2 % 11.6-14.6 [facility] Erythrocyte distribution wid th standard deviationOrdered By: Jean-Paul Estrada on 01-02-2025 Erythrocyte distribution width (RBC) [Ratio] 42.5 fl 35.1-43.9 [facility] Erythrocyte folate measureme nt with hematocritOrdered By: Jean-Paul Estrada on 01-02-2025 Hematocrit (Bld) [Volume fraction] 43.5 % 37.5-51.0 [facility] Erythrocyte sedimentation ra teOrdered By: Jean-Paul Estrada on 01-02-2025 ESR (Bld) [Velocity] 19 mm/h 0-20 [facility] Functional protein C measure mentOrdered By: Jean-Paul Estrada on 01-02-2025 Protein C actual/normal Chromogenic method (PPP) [Rel catalytic activity/Vol] 111 % 73-180 [facility] Comment on above: Performed at: BN - [facility] [address] [id number] Director: Gerson Day MD, Phone: [phone] at: CB - [facility] [id number] [place], [place] [id number] Director: Leonard Oliver PhD, Phone: [phone] at: TG - [facility] [id number] [place], [place] [id number] Director: Chioma Abbasi [facility], Phone: [phone] at: 2Q - [facility] [place] [id number] [place], [place] [id number] Director: Bhavana Milton PhD, Phone: [phone] Glomerular filtration rate ( GFR) estimation/1.73 sq m using serum, plasma, or whole bOrdered By: Jean-Paul Estrada on 01-02-2025 GFR/1.73 sq M.predicted among non-blacks MDRD (S/P/Bld) [Vol rate/Area] 74 mL/min/{1.73_m2} >60 [facility] Comment on above: mL/min/1.73m2 CKD-EP I Creatinine Equation (2020) Hematocrit Auto (Bld) [Volum e fraction]Ordered By: Jean-Paul Estrada on 01-02-2025 Hematocrit (Bld) [Volume fraction] 41.0 % 40-54 [facility] Hemoglobin measurementOrdere d By: Jean-Paul Estrada on 01-02-2025 Hemoglobin (Bld) [Mass/Vol] 13.7 g/dL 13.0-16.5 [facility] Immature granulocytes/100 WB C Auto (Bld)Ordered By: Jean-Paul Estrada on 01-02-2025 Immature granulocytes/100 WBC (Bld) 0.500 % 0.0-0.9 [facility] Comment on above: IG% - Immature Granu locytes (promyelocytes, myelocytes and metamyelocytes) > 1% indicates that a LEFT SHIFT is Present. L501.2276on 01-02-2025 Ionized Calcium 1.17 mmol/L Normal 1.09-1.30 [facility] Comment on above: Performed By: #### L 501.2276 #### [facility] [address] [place], [place], [address] Laboratory - Chemistry and C hemistry - challengeOrdered By: Jean-Paul Estrada on 01-02-2025 AST [Catalytic activity/Vol] 32 U/L <38 [facility] MCV (mean corpuscular volume ) determinationOrdered By: Jean-Paul Estrada on 01-02-2025 MCV (RBC) [Entitic vol] 88.0 fL 80-94 [facility] Magnesiumon 01-02-2025 Magnesium [Mass/Vol] 2.2 mg/dL Normal 1.5-2.2 [facility] Comment on above: Performed By: #### L 4500.5000, L3100.8408, L3100.1725, L3410.9992, L501.5200, L3100.5600, L100.0100, L3300.0960, L3100.5800, L3300.8000, L3100.5700, L3100.7300, L3300.8200, L3100.7325, L3410.1400, L500.4050, L3100.7250, L501.9520, L503.0106, L3300.0450, L3100.7050, L509.1000, L3100.5450, L501.2300, L4500.0100, L101.9900, L4500.2000 ####[facility] [id number] [place], [place], [id number] Magnesium measurement (mass/ volume)Ordered By: Jean-Paul Estrada on 01-02-2025 Magnesium (Unsp spec) [Mass/Vol] 2.2 mg/dL 1.5-2.2 [facility] Mean corpuscular hemoglobin (MCH) determinationOrdered By: Jean-Paul Estrada on 01-02-2025 MCH (RBC) [Entitic mass] 29.4 pg 27.0-32.0 [facility] Mean corpuscular hemoglobin concentration (MCHC) determinationOrdered By: Jean-Paul Estrada on 01-02-2025 MCHC (RBC) [Mass/Vol] 33.4 g/dL 32-[address] [facility] Mean platelet volume determi nationOrdered By: Jean-Paul Estrada on 01-02-2025 Platelet mean volume (Bld) [Entitic vol] 11.2 fL 6.2-12.0 [facility] Monocyte percentageOrdered B y: Jean-Paul Estrada on 01-02-2025 Monocytes/100 WBC (Bld) 10.3 % High 0-10 [facility] Neurology Visit Reporton Neurology Visit Report [facility] [address], [address] [place] [address] OFFICE VISIT Date of Service: 01/02/25 MR#: [id number] Acct: [id number] Name: MELIZA EASTMAN Rep #: [id number] : 1965 Provider: Dr. Jean-Paul noriega MD Age/Sex: 59/M Location: [facility]. Status: Signed HPI HPI Chief Complaint: Establish Care Details: Interim History: Meliza returns for follow-up visit. He has a history of hypertension, hyperlipidemia, hypertrophic cardiomyopathy, diastolic congestive heart failure, obesity, sleep apnea, depression, left total hip replacement, and bipolar disorder who presented for evaluation of memory loss, gait imbalance, and headaches. He has been experiencing memory difficulties since around 2022 and this is worsened over time. He has difficulty recalling names. He has some difficulty recalling conversations. He feels that his mentation has slowed. He remains independent in his daily activities. He is able to perform calculations to manage his finances. He does not get lost while driving. He has been experiencing lightheadedness. This has occurred with both arising from a lying or seated position to the standing position and has also occurred when moving from a standing position to a lying position. He denied having vertigo or disequilibrium. His lightheadedness has been present since 2023. He has been experiencing some fluctuating gait imbalance. He attributes his gait imbalance primarily to osteoarthritis. He reports that he has osteoarthritis of the knees, right hip and shoulders. He is to have a right total hip replacement. He also has neck pain and low back pain. He had left sciatica in 2016.; this resolved. 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 He denied having focal weakness. He stated that he feels generally weak and attributes this to deconditioning. He has numbness and tingling in the hands. He has been diagnosed with bilateral carpal tunnel syndrome in years past and underwent right carpal tunnel surgery in 2008 and this was of benefit. He is seeing an orthopedic surgeon at the [facility] regarding his cervical spine pathology. He has been experiencing pressure type headaches since he was in college. These occur almost daily. He does not awaken with a headache. His headaches are localized to the occipital and frontal head regions primarily. He does not have associated photophobia, phonophobia or nausea. His headaches are mild to moderate in severity. He is unaware of any triggers for his headaches. Acetaminophen and diclofenac have been of benefit for his headaches. His head CT and head MRI reveals bilateral cerebellar and bilateral basal ganglia calcifications and moderate bilateral periventricular and subcortical white matter chronic small vessel ischemic disease was noted. His most recent head MRI (October 2024) reveals moderate to severe moderate bilateral periventricular and subcortical white matter chronic small vessel ischemic disease noted on his recent head MRI moderate bilateral basal ganglia calcifications and slight bilateral cerebellar calcifications are noted. He does not have any history of [employer] infection or clinically manifested lateralizing stroke. There is no family history of metabolic disorder involving calcium metabolism. He has sleep apnea. He did not tolerate CPAP. He has daytime fatigue and daytime hypersomnolence. He does not feel well rested when he awakens in the morning. He had 2 occurrences of acute renal failure in 2023; 1 of these occurrences was related to lithium toxicity. He stated that his renal failure improved. He has a mild tremor that is present with action. It does not appear that the tremor is causing significant functional impairment. On orthopedic evaluation of his spinal pathology, he was felt to have DISH (diffuse idiopathic skeletal hyperostosis). Celebrex has been of moderate benefit for his musculoskeletal pain. He has had an intentional 30 pound weight loss since the beginning of 2024. EMG/nerve conduction studies of the upper extremities in June 2024 revealed a mild bilateral carpal tunnel syndrome. Physical Exam: Neuro: The patient is awake and alert and responds appropriately Supplemental Info Head CT (07/01/2008): FINDINGS The ventricular system is in the midline. There is no mass effect, midline shift or extra-axial fluid. Brain parenchyma has a normal CT appearance. Some calcifications within the cerebellar hemispheres bilaterally. No significant findings associated with the visualized paranasal sinuses or mastoid air cells. No acute bony abnormalities. IMPRESSION No acute intracranial findings. Lumbar x-rays (11/19/2020): COMPARISON: 12/22/2014. FINDINGS: VERTEBRAE: 5 lumbar vertebral bodies. Vertebral body heights maintained (more content not included)... Normal [facility] Neutrophil percentageOrdered By: Jean-Paul Estrada on 01-02-2025 Neutrophils/100 WBC (Bld) 65.6 % 47-70 [facility] Nucleated red blood cell per centageOrdered By: Jean-Paul [facility]trang on 01-02-2025 Nucleated RBC/100 WBC (Bld) [Ratio] 0 % 0-5 [facility] PTHINon 01-02-2025 PTH 13 pg/mL Normal 11-61 [facility] Comment on above: Performed By: #### L 4500.5000, L3100.8408, L3100.1725, L3410.9992, L501.5200, L3100.5600, L100.0100, L3300.0960, L3100.5800, L3300.8000, L3100.5700, L3100.7300, L3300.8200, L3100.7325, L3410.1400, L500.4050, L3100.7250, L501.9520, L503.0106, L3300.0450, L3100.7050, L509.1000, L3100.5450, L501.2300, L4500.0100, L101.9900, L4500.2000 ####[facility] [id number] [place], [address] Phosphoruson 01-02-2025 Phosphate [Mass/Vol] 3.1 mg/dL Normal 2.7-4.5 [facility] Comment on above: Performed By: #### L 4500.5000, L3100.8408, L3100.1725, L3410.9992, L501.5200, L3100.5600, L100.0100, L3300.0960, L3100.5800, L3300.8000, L3100.5700, L3100.7300, L3300.8200, L3100.7325, L3410.1400, L500.4050, L3100.7250, L501.9520, L503.0106, L3300.0450, L3100.7050, L509.1000, L3100.5450, L501.2300, L4500.0100, L101.9900, L4500.2000 #### [facility] [place], [address] Platelet countOrdered By: Ra olman Estrada on 01-02-2025 Platelets (Bld) [#/Vol] 258 10*3/uL 150-450 [facility] Platelet poor plasma antithr ombin actual/normal ratio by chromogenic method (relativeOrdered By: Jean-Paul Estrada on 01-02-2025 Antithrombin actual/normal Chromogenic method (PPP) [Rel catalytic activity/Vol] 108 % 75-135 [facility] Comment on above: Direct Xa inhibitor anticoagulants such as rivaroxaban,apixaban and edoxaban will lead to spuriously elevatedantithrombin activity levels possibly masking a deficiency. Platelet poor plasma antithr ombin antigen detection by immunoassayOrdered By: Jean-Paul Estrada on 01-02-2025 Antithrombin Ag IA Ql (PPP) 82 % 72-124 [facility] Platelet poor plasma protein S actual/normal ratio (relative time)Ordered By: Jean-Paul Estrada on 01-02-2025 Protein S actual/normal Coag (PPP) [Relative time] 107 % 63-140 [facility] Comment on above: Protein S activity m ay be falsely increased (masking anabnormal, low result) in patients receiving direct Xainhibitor (e.g., rivaroxaban, apixaban, edoxaban) or adirect thrombin inhibitor (e.g., dabigatran) anticoagulanttreatment due to assay interference by these drugs. Potassium measurement (mass/ volume)Ordered By: Jean-Paul Estrada on 01-02-2025 Potassium (Unsp spec) [Mass/Vol] 3.4 mmol/L 3.3-5.1 [facility] Protein C antigen assayOrder ed By: Jean-Paul Estrada on 01-02-2025 Protein C Ag actual/normal IA (PPP) [Relative mass conc] 109 % 60-150 [facility] Protein S measurement in janelle telet poor plasma by coagulation assay (units/volume)Ordered By: Jean-Paul Estrada on 01-02-2025 Protein S Coag Qn (PPP) 130 % 60-150 [facility] Comment on above: This test was develo ped and its performance characteristicsdetermined by [employer]. It has not been cleared orapproved by the Food and Drug Administration. Protein S, freeOrdered By: Mira Estrada on 01-02-2025 Protein S Free Ag IA Qn (PPP) 122 % 61-136 [facility] RBC Auto (Bld) [#/Vol]Ordere d By: Jean-Paul Estrada on 01-02-2025 RBC (Bld) [#/Vol] 4.66 10*6/uL 4.6-6.2 [facility] Serum DNA double strand anti body assay (units/volume)Ordered By: Jean-Paul Estrada on 01-02-2025 DNA double strand Ab Qn (S) [facility] Comment on above: Test not performed Serum Scl-70 antibody assay (units/volume)Ordered By: Jean-Paul Estrada on 01-02-2025 SCL-70 extractable nuclear Ab Qn (S) [facility] Comment on above: Test not performed Serum cardiolipin IgG antibo dy assay by immunoassay (units/volume)Ordered By: Jean-Paul Estrada on 01-02-2025 Cardiolipin IgG IA Qn (S) < 9 GPL U/mL 0-14 [facility] Comment on above: Negative: <15 Indete rminate: 15 - 20 Low-Med Positive: >20 - 80 High Positive: >80 Serum creatinine measurement (mass/volume)Ordered By: Jean-Paul Estrada on 01-02-2025 Creatinine [Mass/Vol] 1.14 mg/dL 0.70-1.[address] [facility] Serum globulin measurementOr dered By: Jean-Paul Estrada on 01-02-2025 Globulin (S) [Mass/Vol] 2.7 g/dL 2.2-4.2 [facility] Serum glucose measurement (m ass/volume)Ordered By: Jean-Paul Estrada on 01-02-2025 Glucose [Mass/Vol] 99 mg/dL 70-99 [facility] Serum or plasma alanine butt otransferase (ALT) measurementOrdered By: Jean-Paul Estrada on 01-02-2025 ALT [Catalytic activity/Vol] 32 U/L <47 [facility] Serum or plasma albumin halle urement (mass/volume)Ordered By: Jean-Paul Estrada on 01-02-2025 Albumin [Mass/Vol] 4.5 g/dL 3.5-5.0 [facility] Serum or plasma albumin/glob ulin mass ratioOrdered By: Jean-Paul Estrada on 01-02-2025 Albumin/Globulin [Mass ratio] 1.7 {ratio} 0.9-2.4 [facility] Serum or plasma alkaline lee sphatase measurementOrdered By: Jean-Paul Estrada on 01-02-2025 ALP [Catalytic activity/Vol] 65 U/L 40-129 [facility] Serum or plasma calcitriol m easurement (mass/volume)Ordered By: Jean-Paul Estrada on 01-02-2025 1,25-dihydroxyvitamin D3 [Mass/Vol] 24.4 pg/mL Low 24.8-81.5 [facility] Serum or plasma calcium halle urement (mass/volume)Ordered By: Jean-Paul Estrada on 01-02-2025 Calcium [Mass/Vol] 9.7 mg/dL 7.6-11.0 [facility] Serum or plasma cardiolipin IgA antibody assay (units/volume)Ordered By: Jean-Paul Estrada on 01-02-2025 Cardiolipin IgA Qn < 9 APL U/mL 0-11 [facility] Comment on above: Negative: <12 Indete rminate: 12 - 20 Low-Med Positive: >20 - 80 High Positive: >80 Serum or plasma complement C 4 measurement (mass/volume)Ordered By: Jean-Paul Estrada on 01-02-2025 Complement C4 [Mass/Vol] 42 mg/dL High 12-38 [facility] Serum or plasma thiamine vanna surement (mass/volume)Ordered By: Jean-Paul Estrada on 01-02-2025 Thiamine [Mass/Vol] 180.6 nmol/L 66.5-200.[address] [facility] Serum or plasma urea nitroge n measurement (mass/volume)Ordered By: Jean-Paul Estrada on 01-02-2025 Urea nitrogen [Mass/Vol] 23 mg/dL High 4-19 [facility] Sodium levelOrdered By: Ana Estrada on 01-02-2025 Sodium [Moles/Vol] 137 mmol/L 133-145 [facility] TSH DL <= 0.005 mIU/L QnOrde red By: Jean-Paul Estrada on 01-02-2025 TSH Qn 3.120 uIU/mL 0.300-4.200 [facility] Thrombin timeOrdered By: Carlos A Estrada on 01-02-2025 Thrombin time Coag (PPP) [Time] 20.7 sec 0.0-23.0 [facility] Thyroid Stim Hormone (TSH)on 01-02-2025 TSH 3.120 uIU/mL Normal 0.300-4.200 [facility] Comment on above: Performed By: #### L 4500.5000, L3100.8408, L3100.1725, L3410.9992, L501.5200, L3100.5600, L100.0100, L3300.0960, L3100.5800, L3300.8000, L3100.5700, L3100.7300, L3300.8200, L3100.7325, L3410.1400, L500.4050, L3100.7250, L501.9520, L503.0106, L3300.0450, L3100.7050, L509.1000, L3100.5450, L501.2300, L4500.0100, L101.9900, L4500.2000 ####[facility] [id number] [place], [place], [id number] Total proteinOrdered By: Carlos A Estrada on 01-02-2025 Protein [Mass/Vol] 7.2 g/dL 5.9-8.4 [facility] Vitamin B12on 01-02-2025 Cobalamin (Vitamin B12) [Mass/Vol] 1182 pg/mL High 180-914 [facility] Comment on above: Performed By: #### L 4500.5000, L3100.8408, L3100.1725, L3410.9992, L501.5200, L3100.5600, L100.0100, L3300.0960, L3100.5800, L3300.8000, L3100.5700, L3100.7300, L3300.8200, L3100.7325, L3410.1400, L500.4050, L3100.7250, L501.9520, L503.0106, L3300.0450, L3100.7050, L509.1000, L3100.5450, L501.2300, L4500.0100, L101.9900, L4500.2000 ####[facility] [address] [place], [address] Vitamin B12 ser/plasOrdered By: Jean-Paul Estrada on 01-02-2025 Cobalamin (Vitamin B12) [Mass/Vol] 1182 pg/mL High 180-914 [facility] White blood cell (WBC) count Ordered By: Jean-Paul Estrada on 01-02-2025 WBC (Bld) [#/Vol] 8.4 10*3/uL 4.4-11.0 [facility] CBC W Differential panel, sc thod unspecified (Bld)on 12-27-2024 Basophils (Bld) [#/Vol] 0.06 10*3/uL Normal 0.00-0.20 [facility] Comment on above: Performed By: #### 6 9742-5 #### [facility] [address] [place] [address] Basophils/100 WBC (Bld) 0.8 % Normal 0.0-2.0 [facility] Comment on above: Performed By: #### 6 9742-5 #### [facility] [address] [place] [address] Eosinophils (Bld) [#/Vol] 0.18 10*3/uL Normal 0.00-0.70 [facility] Comment on above: Performed By: #### 6 9742-5 #### [facility] [address] [place] [address] Eosinophils/100 WBC (Bld) 2.3 % Normal 0.0-7.0 [facility] Comment on above: Performed By: #### 6 9742-5 #### [facility] [address] [place] [address] Erythrocyte distribution width (RBC) [Ratio] 13.1 % Normal 11.0-14.8 [facility] Comment on above: Performed By: #### 6 9742-5 #### [facility] [address] [place] [address] Hematocrit (Bld) [Volume fraction] 42.5 % Normal 39.0-49.0 [facility] Comment on above: Performed By: #### 6 9742-5 #### [facility] [address] [place] [address] Hemoglobin (Bld) [Mass/Vol] 14.2 g/dL Normal 13.5-17.5 [facility] Comment on above: Performed By: #### 6 9742-5 #### [facility] [address] [place] [address] Immature granulocytes (Bld) [#/Vol] 0.05 10*3/uL Normal 0.00-0.10 [facility] Comment on above: Performed By: #### 6 9742-5 #### [facility] [address] [place] [address] Immature granulocytes/100 WBC (Bld) 0.6 % Normal 0.0-1.2 [facility] Comment on above: Performed By: #### 6 9742-5 #### [facility] [address] [place] [address] Lymphocytes (Bld) [#/Vol] 1.92 10*3/uL Normal 1.00-4.80 [facility] Comment on above: Performed By: #### 6 9742-5 #### [facility] [address] [place] [address] Lymphocytes/100 WBC (Bld) 24.7 % Normal 17.9-49.6 [facility] Comment on above: Performed By: #### 6 9742-5 #### [facility] [address] [place] [address] MCH 29.5 pcg Normal 27.0-34.0 [facility] Comment on above: Performed By: #### 6 9742-5 #### [facility] [address] [place] [address] MCHC (RBC) [Mass/Vol] 33.4 g/dL Normal 30.8-35.3 [facility] Comment on above: Performed By: #### 6 9742-5 #### [facility] [address] [place] [address] MCV (RBC) [Entitic vol] 88.2 fL Normal 80.0-97.0 [facility] Comment on above: Performed By: #### 6 9742-5 #### [facility] [address] [place] [address] Monocytes (Bld) [#/Vol] 0.73 10*3/uL Normal 0.00-0.90 [facility] Comment on above: Performed By: #### 6 9742-5 #### [facility] [address] [place] [address] Monocytes/100 WBC (Bld) 9.4 % Normal 0.0-12.0 [facility] Comment on above: Performed By: #### 6 9742-5 #### [facility] [address] [place] [address] Neutrophils Absolute 4.82 K/mcL Normal 1.80-7.70 [facility] Comment on above: Performed By: #### 6 9742-5 #### [facility] [address] [place] [address], [place] [address] Neutrophils/100 WBC (Bld) 62.2 % Normal 38.1-75.5 [facility] Comment on above: Performed By: #### 6 9742-5 #### [facility] [address] [place] [address] Platelet mean volume (Bld) [Entitic vol] 11.8 fL Normal 6.2-12.1 [facility] Comment on above: Performed By: #### 6 9742-5 #### [facility] [address] [place] [address], [place] [address] Platelets (Bld) [#/Vol] 292 10*3/uL Normal 142-424 [facility] Comment on above: Performed By: #### 6 9742-5 #### [facility] [address] [place] [address] RBC (Bld) [#/Vol] 4.82 10*6/uL Normal 4.30-5.70 [facility] Comment on above: Performed By: #### 6 9742-5 #### [facility] [address] [place] [address] WBC (Bld) [#/Vol] 7.8 10*3/uL Normal 4.6-10.2 [facility] Comment on above: Performed By: #### 6 9742-5 #### [facility] [address] [place] [address] Comprehensive metabolic 2000 panelon 12-27-2024 Albumin [Mass/Vol] 4.9 g/dL High 3.5-4.8 [facility] Comment on above: Performed By: #### 2 4323-8 #### [facility] [address] [place] [address] ALP [Catalytic activity/Vol] 70 U/L Normal 32-91 [facility] Comment on above: Performed By: #### 2 4323-8 #### [facility] [address] [place] [address] ALT [Catalytic activity/Vol] 28 U/L Normal 7-52 [facility] Comment on above: Performed By: #### 2 4323-8 #### [facility] [address] [facility] [place] [address] Anion gap [Moles/Vol] 12 mmol/L Normal 6-18 [facility] Comment on above: Performed By: #### 2 4323-8 #### [facility] [address] [facility] [place] [address] AST [Catalytic activity/Vol] 25 U/L Normal 15-41 [facility] Comment on above: Performed By: #### 2 4323-8 #### [facility] [address] [facility] [place] [address] Bilirubin [Mass/Vol] 0.4 mg/dL Normal 0.3-1.2 [facility] Comment on above: Performed By: #### 2 4323-8 #### [facility] [address] [place] [address] Calcium [Mass/Vol] 9.7 mg/dL Normal 8.9-10.3 [facility] Comment on above: Performed By: #### 2 4323-8 #### [facility] [address] [place] [address] Chloride [Moles/Vol] 96 mmol/L Low 98-107 [facility] Comment on above: Performed By: #### 2 4323-8 #### [facility] [address] [place] [address] CO2 [Moles/Vol] 29 mmol/L Normal 22-32 [facility] Comment on above: Performed By: #### 2 432-8 #### [facility] [address] [place] [address] Creatinine [Mass/Vol] 1.04 mg/dL Normal 0.60-1.30 [facility] Comment on above: Performed By: #### 2 4323-8 #### [facility] [address] [place] [address] GFR/1.73 sq M.predicted among non-blacks MDRD (S/P/Bld) [Vol rate/Area] 83 mL/min/{1.73_m2} Normal >=60 [facility] Comment on above: Result Comment: Calc ulation based on the Chronic Kidney Disease Epidemiology Collaboration (CKD-EPI) equation refit without adjustment for race. Performed By: #### 2 4323-8 #### [facility] [address] [place] [address] Glucose [Mass/Vol] 94 mg/dL Normal 70-99 [facility] Comment on above: Performed By: #### 2 4323-8 #### [facility] [address] [place] [address] Potassium [Moles/Vol] 4.3 mmol/L Normal 3.6-5.1 [facility] Comment on above: Performed By: #### 2 4323-8 #### [facility] [address] [place] [address] Protein [Mass/Vol] 7.1 g/dL Normal 6.1-7.9 [facility] Comment on above: Performed By: #### 2 4323-8 #### [facility] [address] [place] [address] Sodium [Moles/Vol] 137 mmol/L Normal 136-145 [facility] Comment on above: Performed By: #### 2 4323-8 #### [facility] [address] [place] [address] Urea nitrogen [Mass/Vol] 21 mg/dL High 8-20 [facility] Comment on above: Performed By: #### 2 4323-8 #### [facility] [address] [facility] [place] [address] Urea nitrogen/Creatinine [Mass ratio] 20.2 mg/mg High 12.0-20.0 [facility] Comment on above: Performed By: #### 2 4323-8 #### [facility] [address] [facility] [place] [address] Anion gap in Serum or Plasma Ordered By: Thomas Sanchez on 11-25-2024 Anion gap [Moles/Vol] 14 mmol/L 5-[address] [facility] BUN/creatinine ratioOrdered By: Thomas Sanchez on 11-25-2024 Urea nitrogen/Creatinine [Mass ratio] 22.2 mg/mg High 10-20 [facility] Basic Metabolic Profile (BMP )on 11-25-2024 BUN/CRE 22.2 RATIO High 10-20 [facility] Comment on above: Order Comment: PT ON LY WANTED BMP-SWRIGHT Performed By: #### L 500.2500 ####[facility] [address] [place], [place], [id number] Calcium [Mass/Vol] 9.9 mg/dL Normal 7.6-11.0 [facility] Comment on above: Order Comment: PT ON LY WANTED BMP-SWRIGHT Performed By: #### L 500.2500 ####[facility] [address] [place], [address] Chloride [Moles/Vol] 99 mmol/L Normal 98-108 [facility] Comment on above: Order Comment: PT ON LY WANTED BMP-SWRIGHT Performed By: #### L 500.2500 ####[facility] [address] [place], [address] CO2 [Moles/Vol] 25.7 mmol/L Normal 21.0-32.0 [facility] Comment on above: Order Comment: PT ON LY WANTED BMP-SWRIGHT Performed By: #### L 500.2500 ####[facility] [address] [place], [address] Creatinine [Mass/Vol] 1.16 mg/dL Normal 0.70-1.[address] [facility] Comment on above: Order Comment: PT ON LY WANTED BMP-SWRIGHT Performed By: #### L 500.2500 ####[facility] [address] [place], [address] GAP 14 Normal 5-15 [facility] Comment on above: Order Comment: PT ON LY WANTED BMP-SWRIGHT Performed By: #### L 500.2500 ####[facility] [address] [place], [address] GFR/1.73 sq M.predicted among non-blacks MDRD (S/P/Bld) [Vol rate/Area] 73 mL/min/{1.73_m2} Normal >60 [facility] Comment on above: Order Comment: PT ON LY WANTED BMP-SWRIGHT Result Comment: mL/m in/1.73m2 CKD-EPI Creatinine Equation (2020) Performed By: #### L 500.2500 ####[facility] [address] [place], [address] Glucose [Mass/Vol] 100 mg/dL High 70-99 [facility] Comment on above: Order Comment: PT ON LY WANTED BMP-SWRIGHT Performed By: #### L 500.2500 ####[facility] [address] [place], [address] Potassium [Moles/Vol] 4.2 mmol/L Normal 3.3-5.[address] [facility] Comment on above: Order Comment: PT ON LY WANTED BMP-SWRIGHT Result Comment: Hemo lysis present, Results??could be affected. ?? Performed By: #### L 500.2500 ####[facility] [address] [place], [address] Sodium [Moles/Vol] 139 mmol/L Normal 133-145 [facility] Comment on above: Order Comment: PT ON LY WANTED BMP-SWRIGHT Performed By: #### L 500.2500 ####[facility] [address] [place], [address] Urea nitrogen [Mass/Vol] 26 mg/dL High 4-19 [facility] Comment on above: Order Comment: PT ON LY WANTED BMP-SWRIGHT Performed By: #### L 500.2500 ####[facility] [address] [place], [address] Carbon dioxide, total [Moles /volume] in Central venous bloodOrdered By: Thomas Sanchez on 11-25-2024 CO2 [Moles/Vol] 25.7 mmol/L 21.0-32.0 [facility] Chloride assayOrdered By: Jewell Sanchez on 11-25-2024 Chloride [Moles/Vol] 99 mmol/L 98-108 [facility] Glomerular filtration rate ( GFR) estimation/1.73 sq m using serum, plasma, or whole bOrdered By: Thomas Sanchez on 11-25-2024 GFR/1.73 sq M.predicted among non-blacks MDRD (S/P/Bld) [Vol rate/Area] 73 mL/min/{1.73_m2} >60 [facility] Comment on above: mL/min/1.73m2 CKD-EP I Creatinine Equation (2020) Potassium measurement (mass/ volume)Ordered By: Thomas Sanchez on 11-25-2024 Potassium (Unsp spec) [Mass/Vol] 4.2 mmol/L 3.3-5.1 [facility] Comment on above: Hemolysis present, R esults could be affected. Serum creatinine measurement (mass/volume)Ordered By: Thomas Sanchez on 11-25-2024 Creatinine [Mass/Vol] 1.16 mg/dL 0.70-1.[address] [facility] Serum glucose measurement (m ass/volume)Ordered By: Thomas Sanchez on 11-25-2024 Glucose [Mass/Vol] 100 mg/dL High 70-99 [facility] Serum or plasma calcium halle urement (mass/volume)Ordered By: Thomas Sanchez on 11-25-2024 Calcium [Mass/Vol] 9.9 mg/dL 7.6-11.0 [facility] Serum or plasma urea nitroge n measurement (mass/volume)Ordered By: Thomas Sanchez on 11-25-2024 Urea nitrogen [Mass/Vol] 26 mg/dL High 4-19 [facility] Sodium levelOrdered By: Idalia Sanchez on 11-25-2024 Sodium [Moles/Vol] 139 mmol/L 133-145 [facility] Echo Complete W/ Contraston 11-10-2024 Echo Complete W/ Contrast [facility] Services [address] [place] [address] Echo Complete W/ Contrast 11/10/24 0109 MR#: [id number] Acct: [id number] Name: MELIZA EASTMAN Rep #: [id number] : 1965 59 From: Hermilo Mendez MD Attending Dr: ANGEL Sage Status: REG CL I Ordering Dr: Thomas Sanchez Date: 11/10/24 Location: [facility] Sex: M C Admitted: Reason For Study Reason For Study: EDEMA, SOB Procedure This was a 2D Doppler, Color Flow transthoracic echocardiogram. The study was technically limited. The study was technically difficult. Due to body habitus. Contrast injection was performed. Exam performed in department. Images #67 #68 are of apical two chamber view. Left Ventricle Normal LV size. Moderate concentric left ventricular hypertrophy. Left ventricular systolic function is normal. The left ventricular ejection fraction is 55 %. No regional wall motion abnormalities noted. Right Ventricle Normal RV size. Normal systolic function. Atria Normal left atrium. Normal right atrium. Mitral Valve Normal mitral valve. Tricuspid Valve Normal tricuspid valve. Aortic Valve The aortic valve is not well visualized. Pulmonic Valve The pulmonic valve is not well visualized. Great Vessels Mildly dilated aortic root. The pulmonary artery is normal size. Pericardium/Pleural No pericardial effusion. Medication 22 gauge I.V. with prn adaptor inserted into right arm. Diluted definity 3.0ml given slow IV push to enhance endocardial definition. MMode/2D Measurements Calculations LVIDd: 6.4 cm IVSd: 1.5 cm Ao root diam: 3.8 cm LVIDs: 4.8 cm LVPWd: 1.5 cm FS: 25.4 % LVAd ap4: 27.2 cm2 SV(MOD-sp4): 50.6 ml SV(sp4-el): 51.5 ml LVLd ap4: 7.6 cm SI(MOD-sp4): 19.0 ml/m2 EDV(MOD-sp4): 80.5 ml EDV(sp4-el): 82.1 ml LVAs ap4: 15.4 cm2 LVLs ap4: 6.6 cm ESV(MOD-sp4): 29.9 ml ESV(sp4-el): 30.6 ml EF(MOD-sp4): 62.8 % EF(sp4-el): 62.7 % LA dimension(2D): 4.1 cm Time Measurements MV dec time: 0.19 sec Doppler Measurements Calculations MV E max ang: 60.0 cm/sec MV V2 max: 83.0 cm/sec MV P1/2t max ang: 69.5 cm/sec MV A max ang: 67.3 cm/sec MV max P.8 mmHg MV P1/2t: 38.1 msec MV E/A: 0.89 MV V2 mean: 43.1 cm/sec MV mean P.87 mmHg MV dec slope: 534.2 cm/sec2 MV V2 VTI: 19.8 cm MVA(P1/2t): 5.8 cm2 Ao V2 max: 96.7 cm/sec LV V1 max: 88.6 cm/sec PA V2 max: 109.5 cm/sec Ao max P.7 mmHg LV V1 max P.1 mmHg PA V2 mean: 68.7 cm/sec Ao V2 mean: 66.0 cm/sec LV V1 mean P.7 mmHg Ao mean P.9 mmHg LV V1 mean: 61.8 cm/sec Ao V2 VTI: 17.9 cm LV V1 VTI: 19.1 cm AV (velocity ratio): 1.1 ECHO/Echo Complete W/ Contrast Interpretation Summary Normal LV size. Left ventricular systolic function is normal. The left ventricular ejection fraction is 55 %. Moderate concentric left ventricular hypertrophy. Contrast injection was performed. Ordering Physician: Thomas Sanchez Referring Physician: Jj Eason Performed By: Audelia Snyder, RDCS, RVT 11/10/24 1532 Date Hermilo Mendez MD CC: Dr. Jj Eason MD; ANGEL Sage Date Dictated: 11/10/24108 Date Transcribed: 11/10/241531 Trip Follower: Signed Normal [facility] Echocardiogram study reportO rdered By: Hermilo Mendez on 11-10-2024 Study report [facility] Cardiovascular Services [address] [place] [address] Echo Complete W/ Contrast 11/10/24108 MR#: [id number] Acct: [id number] Name: MELIZA EASTMAN Rep #:[id number] : 1965 59 From: Hermilo Torres Attending Dr: ANGEL Sage atus: REG CLI Ordering Dr: Thomas Sanchez Date: 11/10/24 Location: [facility] Sex: M C Admitted: Reason For Study Reason For Study: EDEMA, SOB Procedure This was a 2D Doppler, Color Flow transthoracic echocardiogram. The study was technically limited. The study was technically difficult. Due to body habitus. Contrast injection was performed. Exam performed in department. Images #[id number] & #68 are of apical two chamber view. Left Ventricle Normal LV size. Moderate concentric left ventricular hypertrophy. Left ventricular systolic function is normal. The left ventricular ejection fraction is 55 %. No regional wall motion abnormalities noted. Right Ventricle Normal RV size. Normal systolic function. Atria Normal left atrium. Normal right atrium. Mitral Valve Normal mitral valve. Tricuspid Valve Normal tricuspid valve. Aortic Valve The aortic valve is not well visualized. Pulmonic Valve The pulmonic valve is not well visualized. Great Vessels Mildly dilated aortic root. The pulmonary artery is normal size. Pericardium/Pleural No pericardial effusion. Medication 22 gauge I.V. with prn adaptor inserted into right arm. Diluted definity 3.0ml given slow IV push to enhance endocardial definition. MMode/2D Measurements & Calculations LVIDd: 6.4 cm IVSd: 1.5 cm Ao root diam: 3.8 cm LVIDs: 4.8 cm LVPWd: 1.5 cm FS: 25.4 % LVAd ap4: 27.2 cm2 SV(MOD-sp4): 50.6 ml SV(sp4-el): 51.5 ml LVLd ap4: 7.6 cm SI(MOD-sp4): 19.0 ml/m2 EDV(MOD-sp4): 80.5 ml EDV(sp4-el): 82.1 ml LVAs ap4: 15.4 cm2 LVLs ap4: 6.6 cm ESV(MOD-sp4): 29.9 ml ESV(sp4-el): 30.6 ml EF(MOD-sp4): 62.8 % EF(sp4-el): 62.7 % LA dimension(2D): 4.1 cm Time Measurements MV dec time: 0.19 sec Doppler Measurements & Calculations MV E max ang: 60.0 cm/sec MV V2 max: 83.0 cm/sec MV P1/2t max ang: 69.5 cm/sec MV A max ang: 67.3 cm/sec MV max P.8 mmHg MV P1/2t: 38.1 msec MV E/A: 0.89 MV V2 mean: 43.1 cm/sec MV mean P.87 mmHg MV dec slope: 534.2 cm/sec2 MV V2 VTI: 19.8 cm MVA(P1/2t): 5.8 cm2 Ao V2 max: 96.7 cm/sec LV V1 max: 88.6 cm/sec PA V2max: 109.5 cm/sec Ao max P.7 mmHg LV V1 max P.1 mmHg PA V2mean: 68.7 cm/sec Ao V2 mean: 66.0 cm/sec LV V1 mean P.7 mmHg Ao mean P.9 mmHg LV V1 mean: 61.8 cm/sec Ao V2 VTI: 17.9 cm LV V1 VTI: 19.1 cm AV (velocity ratio): 1.1 ECHO/Echo Complete W/ Contrast Interpretation Summary Normal LV size. Left ventricular systolic function is normal. The left ventricular ejection fraction is 55 %. Moderate concentric left ventricular hypertrophy. Contrast injection was performed. Ordering Physician: Thomas Sanchez Referring Physician: Jj Eason Performed By: Audelia Snyder RDCS, RVT 11/10/24 1532 Date _ Hermilo Mendez MD CC: Dr. Jj Eason MD; ANGEL Sage ~ Date Dictated: 11/10/24 0109 Date Transcribed: 11/10/24 153 Trip Follower: Signed [facility] Work Phone: Brain W/WO Contraston 2024 Brain W/WO Contrast [facility] Imaging Services [address] [place], [place] [address] Brain W/WO Contrast MR#: [id number] Acct: [id number] Name: MELIZA EASTMAN Rep #: [id number] : 1965 M 59 From: Marin Acharya MD PCP: Dr. Jj Eason MD Status: REG CLI Study: Brain W/WO Contrast Date of Exam: 11/08/24 Exam# [id number] Ordering Dr: Jean-Paul Estrada MD PROCEDURE: BRAIN W/WO CONTRAST 11/08/2024 REASON FOR EXAM: TENSION HEADACHES; MILD COGNITIVE IMPAIRMENT TECHNIQUE: Multiplanar and multisequential MRI of the brain was performed without and with IV gadolinium based contrast administration. CONTRAST: Clariscan VOLUME: 30 mL COMPARISON: Prior brain MRIs dated 01/16/2023, 01/03/2021. FINDINGS: Ventricular and sulcal size and configuration are within normal limits for age. No regions of abnormal restricted diffusion to indicate recent infarct. No intracranial mass lesion or pathologic enhancement. No evidence of intracranial hemorrhage, extra-axial collection, or other acute abnormality. Preserved major vascular flow voids. Numerous patchy foci of T2 FLAIR hyperintensity throughout the supratentorial white matter, nonspecific and can be seen in a variety of clinical settings including associated with migraine headache, or may reflect moderate chronic microangiopathic change. Absent [place] ocular lenses. Well-aerated paranasal sinuses and mastoid air cells. MRI/Brain W/WO Contrast IMPRESSION: No acute intracranial abnormality. No mass or pathologic enhancement. Similar extensive patchy foci of T2 FLAIR hyperintensity throughout the cerebral white matter, nonspecific but commonly seen with migraine headaches, or chronic microangiopathic changes. Reading Location: [id number] CC: Dr. Jj Eason MD; Dr. Jean-Paul Estrada MD Trip Follower: Signed Normal [facility] Magnetic resonance imaging r eportOrdered By: Marin Acharya on 11-08-2024 Study report [facility] Imaging Services [address] [place] [address] Brain W/WO Contrast MR#: [id number] Acct: [id number] Name: MELIZA EASTMAN Rep #: [id number] : 1965 M 59 From: [facility] jos Acharya MD PCP: Dr. Jj Eason MD Status: REG CLI Study:Brain W/WO Contrast Date of Exam: 11/08/24 Exam# [id number] Ordering Dr: Jean-Paul Estrada MD PROCEDURE: BRAIN W/WO CONTRAST 11/08/2024 REASON FOR EXAM: TENSION HEADACHES; MILD COGNITIVE IMPAIRMENT TECHNIQUE: Multiplanar and multisequential MRI of the brain was performed without and with IV gadolinium based contrast administration. CONTRAST: Clariscan VOLUME: 30 mL COMPARISON: Prior brain MRIs dated 01/16/2023, 01/03/2021. FINDINGS: Ventricular and sulcal size and configuration are within normal limits for age. No regions of abnormal restricted diffusion to indicate recent infarct. No intracranial mass lesion or pathologic enhancement. No evidence of intracranial hemorrhage, extra-axial collection, or other acute abnormality. Preserved major vascular flow voids. Numerous patchy foci of T2 FLAIR hyperintensity throughout the supratentorial white matter, nonspecific and can be seen in a variety of clinical settings including associated with migraine headache, or mayreflect moderate chronic microangiopathic change. Absent [place] ocular lenses. Well-aerated paranasal sinuses and mastoid air cells. MRI/Brain W/WO Contrast IMPRESSION: No acute intracranial abnormality. No mass or pathologic enhancement. Similar extensive patchy foci of T2 FLAIR hyperintensity throughout the cerebralwhite matter, nonspecific but commonly seen with migraine headaches, or chronic microangiopathic changes. Reading Location: [id number] CC: Dr. Jj Eason MD; Dr. Jean-Paul Estrada MD ~ Trip Follower: Signed [facility] Venous Duplex US, Unilateral on 10-19-2024 Venous Duplex US, Unilateral [facility] Cardiovascular Services [address] [place] [address] Venous Duplex US, Unilateral 10/19/24 0809 MR#: [id number] Acct: [id number] Name: MELIZA EASTMAN Rep #: [id number] : 1965 59 From: Jj Mejia MD Attending Dr: ANGEL Sage Status: REG CL I Ordering Dr: Thomas Sanchez Date: 10/19/24 Location: [facility] Sex: M C Admitted: Reason For Study Reason For Study: RLE Swelling RIGHT LEFT GSV is normal. FV is compressible, spontaneous, phasic, competent CFV is compressible, spontaneous, phasic, competent and demonstrates normal augmentation. and demonstrates normal augmentation. FV is compressible, spontaneous, phasic, competent and demonstrates normal augmentation. POP V is compressible, spontaneous, phasic, competent and demonstrates normal augmentation. T/P Trunk is compressible. PTV is compressible. RT PerV is compressible. Procedure This is a venous duplex using B-mode, color flow and spectral Doppler. Exam performed in department. Limited views were obtained of calf veins due to Edema and patient positioning. VL/Venous Duplex US, Unilateral Interpretation Summary Deep veins of the right lower extremity are patent and compressible segmentally. There is no evidence of right lower extremity deep vein thrombosis. The right great saphenous vein appears patent and compressible segmentally. Ordering Physician: Thomas Sanchez Referring Physician: Jj Eason Performed By: Brenden Jimenez, T 10/19/241715 Date Jj Mejia MD CC: Dr. Jj Eason MD; ANGEL Sage Date Dictated: 10/19/24808 Date Transcribed: 10/19/241715 Trip Follower: Signed Normal [facility] Venous duplex ultrasound rep ortOrdered By: Jj Mejia on 10-19-2024 US Vein [facility] Cardiovascular Services [address] [place] [address] Venous Duplex US, Unilateral 10/19/24808 MR#: [id number] Acct: [id number] Name: MELIZA EASTMAN Rep #:[id number] : 1965 59 From: Jj Torres Attending Dr: ANGEL Sage atus: REG CLI Ordering Dr: Thomas Sanchez Date: 10/19/24 Location: [facility] Sex: M C Admitted: Reason For Study Reason For Study: RLE Swelling RIGHT LEFT GSV is normal. FV is compressible, spontaneous, phasic, competent CFV is compressible, spontaneous, phasic, competent and demonstrates normal augmentation. and demonstrates normal augmentation. FV is compressible, spontaneous, phasic, competent and demonstrates normal augmentation. POP V is compressible, spontaneous, phasic, competent and demonstrates normal augmentation. T/P Trunk is compressible. PTV is compressible. RT PerV is compressible. Procedure This is a venous duplex using B-mode, color flow and spectral Doppler. Exam performed in department. Limited views were obtained of calf veins due to Edema and patient positioning. VL/Venous Duplex US, Unilateral Interpretation Summary Deep veins of the right lower extremity are patent and compressible segmentally.There is no evidence of right lower extremity deep vein thrombosis. The right great saphenous vein appears patent and compressible segmentally. Ordering Physician: Thomas Sanchez Referring Physician: Jj Eason Performed By: Brenden Jimenez, T 10/19/241715 Date _ Jj Mejia MD CC: Dr. Jj Eason MD; ANGEL Sage ~ Date Dictated: 10/19/24808 Date Transcribed: 10/19/241715 Trip Follower: Signed [facility] Work Phone: Cardiology Visit Reporton Cardiology Visit Report [facility] Heart [address] [place] [address] OFFICE VISIT Date of Service: 09/23/24 MR#: [id number] Acct: [id number] Name: MELIZA EASMTAN Rep #: [id number] : 1965 Provider: ANGEL Sage Age/Sex: 59/M Location: [facility] Status: Signed HPI HPI History of Present Illness Details: Meliza Eastman is a 59-year-old male who presents to the office today for follow-up for monitoring his cardiovascular health. He has a history of hypertension, cardiomyopathy, RAY without treatment by choice. Patient underwent cardiac catheterization in 2012 that demonstrated normal coronary arteries. He did not pursue his previously planned shoulder surgery 2/ to LE joint pain and concerns about recovering. He is seeing a specialist in September to address these. Upon presentation to office today, patient reports weakness that he relates to his orthopedic problems. He describes this as not being able to physically do things he used to. He also feels his decreased activity secondary to LE joint pain is causing his muscles to weaken. He reports ongoing dizziness most noticed when lying on his R side and occasionally with standing. He has monitored his BP with these positional changes and denies any difference in his BP. He was planned to undergo MRI evaluation for this but postponed secondary to financial concerns.He reports his chronic b/l LE edema has seemed to worsen lately. He is monitoring his Na intake. He wears compression stockings daily. Unable to determine orthopnea as he sleeps in a recliner secondary to shoulder pain. He has been experiencing SOB but feels this is secondary to inactivity and obesity. This has been ongoing for years now. His BP has been elevated at home with recent check 155/80. Further ROS below. Intake Vital Signs 07/15/23 10:08 08/15/24 07:37 09/23/24 09:54 Height 5 ft 10 in 5 ft 10 in 5 ft 10 in Weight: 355 lb BMI 50.9 BP 156/89 H Blood Pressure Location Lt brachial Position Sitting Respiration 18 Pulse 79 Pulse Source NIBP Intake Visit Reasons: 1 Y FU Pulmonary Physician Required: No Accompanied by: Self Is patient in pain?: No Allergies atorvastatin (From Lipitor) Allergy (Verified 09/23/24 11:07) Muscle soreness, Tremors escitalopram (From Lexapro) Allergy (Verified 09/23/24 11:07) Headache Penicillins Allergy (Verified 09/23/24 11:07) Hives pravastatin (From Pravachol) Allergy (Verified 09/23/24 11:07) Muscle soreness, Tremors tolmetin Allergy (Verified 09/23/24 11:07) Anaphylaxis meloxicam Adverse Reaction (Verified 09/23/24 11:07) Other Medications ???Medication ???Instructions ???Recorded ???Confirmed ???Type multivitamin (Daily Multi-Vitamin 1 tab PO DAILY supplement 0 09/23/24 History tablet) lamotrigine 200 mg tablet 400 mg PO QHS skin 08/02/20 History acetaminophen 500 mg capsule 500 mg PO Q6H PRN Pain 05/21/21 History bupropion HCl 150 mg tablet,12 hr 150 mg PO BID depression 12/03/21 09/23/24 History sustained-release (Wellbutrin SR) ascorbic acid (vitamin C) 500 mg 1,000 mg PO DAILY vitamin 05/27/22 09/23/24 History tablet (Vitamin C) cholecalciferol (vitamin D3) 25 2,000 unit PO DAILY vitamin 09/23/24 History mcg (1,000 unit) chewable tablet (Vitamin D3) ramipril 10 mg capsule 10 mg PO BID bp 05/27/22 09/23/24 History tamsulosin 0.4 mg capsule 0.4 mg PO Q24H prostate 11/14/22 0 09/23/24 History gabapentin 800 mg tablet 800 mg PO QHS pain 02/25/23 History omeprazole 40 mg capsule,delayed 40 mg PO DAILY 08/20/23 09/23/24 H istory release carvedilol 12.5 mg tablet 12.5 mg PO BID 03/16/24 09/23/24 H istory ezetimibe 10 mg tablet (Zetia) 10 mg PO DAILY cholesterol #90 tab s 04/01/24 09/23/24 Rx flurbiprofen 100 mg tablet 100 mg PO TID PRN pain #90 tabs 09/23/24 Rx perphenazine 4 mg tablet 8 mg PO QHS 06/13/24 09/23/24 Hist ory amlodipine 2.5 mg tablet 2.5 mg PO QHS blood pressure #30 0 09/23/24 09/23/24 Rx tabs hydrochlorothiazide 25 mg tablet 50 mg PO DAILY 09/23/24 09/23/24 H istory hydrocodone-acetaminoph en 5-325mg 1 tab PO QD-TID PRN pain 09/23/24 09/23/24 History 5mg-325mg methylprednisolone 4 mg tablets in mg PO 09/23/24 09/23/24 History a dose pack Ejection fraction %: 60 Have you fallen in the past year?: Yes (3-4wks ago; trip; head strike; ) [facility] Medical History (Updated 09/24/24 @ 23:01 by ANGEL Sage) History of acute renal failure Family history of malignant neoplasm of colon in first degree relative diagnosed when younger than 60 years of age Family history of colon cancer in father Osteoarthritis of left knee Left knee pain Medical non-compliance Metabolic encephalopathy Abnormal (more content not included)... Normal [facility] Fluoro Guided Needle Placeme nton 08-15-2024 Fluoro Guided Needle Placement [facility] Imaging Services [address] [place] [address] Fluoro Guided Needle Placement MR#: [id number] Acct: [id number] Name: MELIZA EASTMAN Rep #: [id number] : 1965 M 59 From: Daniel sims MD PCP: Dr. Jj Eason MD Status: [facility] Study: Fluoro Guided Needle Placement Date of Exam: 0 08/15/24 Exam# [id number] Ordering Dr: Sin Murphy MD PROCEDURE: FLUORO GUIDED NEEDLE PLACEMENT 08/15/2024 REASON FOR EXAM: HIP INJECTION RT TECHNIQUE: Intraoperative fluoroscopic services provided for right hip injection. 5.9 seconds of fluoroscopy. 2.39 mGy. 3 images were submitted. COMPARISON: None FINDINGS: Intraoperative imaging provided for right hip injection. RAD/Fluoro Guided Needle Placement IMPRESSION: Intraoperative imaging provided for right hip injection. Reading Location: [place] [address] CC: Dr. Jj Eason MD; Dr. Sin Murphy MD Trip Follower: Signed [facility] MR/POSTOP.[facility] 08-15-2024 MR/POSTOP.[facility] Medical Records Department [address] [place] [address] Anesthesia Postop Eval I 08/15/24 0846 MR#: [id number] Acct: [id number] Name: MELIZA EASTMAN Rep #: [id number] : 1965 59 From: Guy Vallecillo CRNA PCP: Dr. Jj Eason MD Status:[facility] Y Race: C Location: [place] [address] Anesthesia: Postop Eval I Current Vital Signs Temperature: 97.7 F Pulse Rate: 74 Blood Pressure: 140/80 Respiratory Rate: 18 Pulse Ox: 93 Oxygen Delivery Method: Room Air Assessment Airway patent: Yes Spontaneous unlabored respirations: Yes Mental status: Awake and Calm nausea: No Vomiting: No Anesthesia Complication: No Fluid Hydration Crystalloid volume administer (ml): 0 Total IV fluid infused: 0 Progress Note Anesthesia document: Postop Eval 1 completed: Yes 08/15/24 0850 Date Guy Vallecillo SYNOPTIC METEOROLOGIST Cosigner Signature: Date CC: Signed Normal [facility] MR/[id number] 08-15-2024 MR/POSTOPAN2 [facility] Medical Records Department [address] [place] [address] Anesthesia Postop Eval II 08/15/2436 MR#: [id number] Acct: [id number] Name: MELIZA EASTMAN Rep #: [id number] : 1965 59 From: Byron Tiwari MD PCP: Dr. Jj Eason MD Status:[facility] Y Race: C Location: [place] [address] Anesthesia Postop Eval I Sum Postop Eval Completion status Anesthesia document: Postop Eval 1 completed: Yes Anesthesia Postop Eval I Summary Anesthesia Postop Eval I Summary: Anesthesia Postop Eval I: Assessment Summary Airway patent Yes 08/15/24 08:50 SYNOPTIC METEOROLOGIST.BHOS Spontaneous unlabored Yes 08/15/24 08:50 SYNOPTIC METEOROLOGIST.BHOS respirations Mental status Awake,Calm 08/15/24 08:50 SYNOPTIC METEOROLOGIST.BHOS nausea No 08/15/24 08:50 SYNOPTIC METEOROLOGIST.BHOS Vomiting No 08/15/24 08:50 SYNOPTIC METEOROLOGIST.BHOS Anesthesia Postop Eval I: Fluid Summary Crystalloid volume administer 0 08/15/24 08:50 SYNOPTIC METEOROLOGIST.BHOS (ml) Colloids volume administered ( ml) Blood Product volume administered (ml) Total IV fluid infused 0 08/15/24 08:50 SYNOPTIC METEOROLOGIST.BHOS Anesthesia Postop Eval I: Summary Notes Anesthesia Complication No 08/15/24 08:50 SYNOPTIC METEOROLOGIST.BHOS Anesthesia Complication Comment: Post-operative progress note Anesthesia: Postop Eval II Evaluation Mental status: Awake Pain Level: 0 nausea: No Vomiting: No 08/15/24935 Date Byron Hdz Signature: Date CC: Signed Normal [facility] Operative Reporton 5 Operative Report [facility] Medical Records Department [address] [place] [address] Operative Report 08/15/24 0859 MR#: [id number] Acct: [id number] Name: MELIZA EASTMAN Rep #: [id number] : 1965 59 From: Sin Murphy MD PCP: Dr. Jj Eason MD Status:[facility] Location: [place] [address] Operative Report (Standard) Operative Information Date of Procedure: 08/15/24 Pre-Operative Diagnosis: 1 Post-Operative Diagnosis: 1 Surgery/Procedure Performed: 1 shearing shed hand: No Type of Anesthesia: Local MAC RN Documented Start/Stop Times: Operation Date: 08/15/24 08:40 Case Time Into Pre-Op 08/15/24 07:12 Out of Pre-Op 08/15/24 08:18 Anesthesia Start 08/15/24 08:34 Into Room 08/15/24 08:34 Procedure Start 08/15/24 08:41 Procedure End 08/15/24 08:43 Anesthesia End 08/15/24 08:47 Out of Room 08/15/24 08:47 Into Recovery 08/15/24 08:50 Procedure Start Time: 08:59 Procedure Stop Time: 08:59 Select all DRAINS/GRAFTS/IMPLANTS that apply: None Estimated Blood Loss: 0 Specimen collected: No Description of surgery: PREOPERATIVE DIAGNOSIS: Osteoarthritis of the right hip POSTOPERATIVE DIAGNOSIS: Osteoarthritis of the right hip PROCEDURE PERFORMED: Right hip intraarticular steroid injection under fluoroscopy guidance. ANESTHESIA: MAC BLOOD LOSS: Minimal. COMPLICATIONS: None. DESCRIPTION OF PROCEDURE: History and physical of today was reviewed. Risks and benefits of the procedure were explained. The patient understood and agreed to proceed. Informed consent was obtained. IV inserted per routine protocol. The patient was taken to the operating room and placed in the supine position. The right hip area was prepped and draped in a sterile fashion using iodine x3. Under fluoroscopy guidance on AP view, the right hip joint was visualized. The skin and subcutaneous tissue was anesthetized with approximately 3 mL of 1% lidocaine using a 25-gauge regular needle approximately 3 cm cephalad to the right greater trochanter. Under direct visualization with fluoroscopy on an AP view, using a 22-gauge 5-inch spinal needle, the needle was advanced via the skin using the lateral approach. The tip of the needle was maneuvered and directed towards the superiormost aspect of the hip joint. Once the tip of the needle was at the vicinity of the joint, after negative aspiration for blood and positive aspiration of synovial fluid, a total of 1 mL of contrast was injected to confirm correct placement of the needle as well as halo spread around the hip joint. After repeated negative aspiration for blood and confirmation on AP as well as oblique view, a total of 10 mL of preservative-free 0.25% Marcaine with 80 mg of Depo-Medrol was injected easily. The needle was then removed intact. The patient experienced no sign or symptoms of intrathecal or intravascular injection. The patient experienced no paresthesia. The procedure was completed without any apparent difficulty or any complications. The patient appeared to tolerate it well. ASSESSMENT AND PLAN: This is a 59-year-old male with osteoarthritis of the right hip status post right hip intra- articular steroid injection under fluoroscopic guidance, patient will continue his current medications, patient will follow in approximately 2 weeks for reevaluation. Surgical Findings: 0 Complications Complications: No Admit VTE Documentation VTE Present on Admission: No VTE Mechan Device Prophylaxis: None VTE Pharm Prophylaxis ordered?: No 08/15/24 0900 Cosigner Signature (if applicable): CC: Dr. Jj Eason MD; Dr. Sin Murphy MD Signed Normal [facility] Testosterone, Total / Freeon 08-15-2024 TESTOSTER,FREE 11.62 ng/dL Normal 5.00-21.00 [facility] Comment on above: Order Comment: Order Date: 08/01/24Order Info: 0024-1 - TESTFN Performed By: #### L 3100.5310, L501.9910, L100.0100, L500.4050, L501.9985 ####[facility] [address] [place], [address] TESTOSTER,TOTAL 351 ng/dL Normal 264-916 [facility] Comment on above: Order Comment: Order Date: 08/01/24Order Info: 0024-1 - TESTFN Result Comment: Adul t male reference interval is based on a population of healthy nonobese males (BMI <30) between 19 and 39 years old. yolande Howe.al. JCEM 2017,102;7955-3624. PMID: [id number]. Performed By: #### L 3100.5310, L501.9910, L100.0100, L500.4050, L501.9985 ####[facility] [address] [place], [place], [id number] TESTOSTERONE,%F 3.31 Normal 1.50-4.20 [facility] Comment on above: Order Comment: Order Date: 08/01/24Order Info: 0024-1 - TESTFN Result Comment: Perf ormed at: - [facility] [address] [id number] [employer]: Leonard Oliver PhD, Phone: [phone] Performed at: - [facility] [address] [id number] [employer]: Gerson Day MD, Phone: [phone] Performed By: #### L 3100.5310, L501.9910, L100.0100, L500.4050, L501.9985 ####[facility] [address] [place], [place], [address] Orthopedic Visit Reporton Orthopedic Visit Report [facility] [address] [place], [place] [address] OFFICE VISIT Date of Service: 08/04/24 MR#: [id number] Acct: [id number] Name: MELIZA EASTMAN Rep #: [id number] : 1965 Provider: Dr. Darwin street MD Age/Sex: 59/M Location: [facility] Status: Signed Intake Vital Signs 07/01/24 13:37 07/28/24 10:43 08/04/24 11:20 Height 5 ft 10 in 5 ft 10 in 5 ft 10 in Weight: 350 lb BMI 50.2 Intake Visit Reasons: BL KNEES Chief Complaint: 3rd Euflexxa BL knee Accompanied by: Self Is patient in pain?: Yes Pain scale (1-10): 2 Allergies atorvastatin (From Lipitor) Allergy (Verified 08/04/24 11:24) Muscle soreness, Tremors escitalopram (From Lexapro) Allergy (Verified 08/04/24 11:24) Headache Penicillins Allergy (Verified 08/04/24 11:24) Hives pravastatin (From Pravachol) Allergy (Verified 08/04/24 11:24) Muscle soreness, Tremors tolmetin Allergy (Verified 08/04/24 11:24) Anaphylaxis meloxicam Adverse Reaction (Verified 08/04/24 11:24) Other Medications ???Medication ???Instructions ???Recorded ???Confirmed ???Type multivitamin (Daily Multi-Vitamin 1 tab PO DAILY supplement 0 08/04/24 History tablet) lamotrigine 200 mg tablet 400 mg PO QHS skin 08/02/20 History acetaminophen 500 mg capsule 500 mg PO Q6H PRN Pain 05/21/21 History bupropion HCl 150 mg tablet,12 hr 150 mg PO BID depression 12/03/21 08/04/24 History sustained-release (Wellbutrin SR) ascorbic acid (vitamin C) 500 mg 1,000 mg PO DAILY vitamin 05/27/22 08/04/24 History tablet (Vitamin C) cholecalciferol (vitamin D3) 25 2,000 unit PO DAILY vitamin 08/04/24 History mcg (1,000 unit) chewable tablet (Vitamin D3) ramipril 10 mg capsule 10 mg PO BID bp 05/27/22 08/04/24 History tamsulosin 0.4 mg capsule 0.4 mg PO Q24H prostate 11/14/22 0 08/04/24 History gabapentin 800 mg tablet 800 mg PO QHS pain 02/25/23 History hydrochlorothiazide 25 mg tablet 25 mg PO DAILY 05/01/23 08/04/24 H istory omeprazole 40 mg capsule,delayed 40 mg PO DAILY 08/20/23 08/04/24 H istory release carvedilol 12.5 mg tablet 12.5 mg PO BID 03/16/24 08/04/24 H istory amlodipine 5 mg tablet 5 mg PO QHS blood pressure #90 tab s 04/01/24 08/04/24 Rx ezetimibe 10 mg tablet (Zetia) 10 mg PO DAILY cholesterol #90 tab s 04/01/24 08/04/24 Rx flurbiprofen 100 mg tablet 100 mg PO TID PRN pain #90 tabs 08/04/24 Rx perphenazine 4 mg tablet 8 mg PO QHS 06/13/24 08/04/24 Hist ory tramadol 50 mg tablet 100 mg PO BID PRN pain 06/13/24 History Have you fallen in the past year?: No PFSH Medical History History of acute renal failure Family history of malignant neoplasm of colon in first degree relative diagnosed when younger than 60 years of age Family history of colon cancer in father Osteoarthritis of left knee Left knee pain Medical non-compliance Metabolic encephalopathy Abnormal lithium level in blood History of bipolar disorder Obesity, morbid, BMI 50 or higher Wears glasses Headache Loss of consciousness Pain Primary osteoarthritis, right shoulder Primary osteoarthritis, left shoulder Left shoulder pain Right shoulder pain Dizziness Degenerative joint disease (DJD) of hip Cancer Bipolar disorder Depression Anxiety Ambulates with cane Arthritis High cholesterol Back pain Injury of head and neck Hx of reactive hypoglycemia Non-smoker CPAP (continuous positive airway pressure) dependence Shortness of breath on exertion Chronic cough History of pain when walking History of edema Hypertension Cardiology follow-up encounter History of echocardiogram History of stress test Osteoarthritis of right hip Chest pain SOBOE (shortness of breath on exertion) Obesity Iliotibial band syndrome affecting left lower leg Disc degeneration, lumbar Osteoarthritis of right hip Breast mass, left Chronic pain of both knees Cataract, left eye Essential (primary) hypertension Body mass index (BMI) 35 or more Obesity Anxiety and depression RAY (obstructive sleep apnea) Palpitations Hyperlipidemia Surgical History H/O total hip arthroplasty History of total left hip arthroplasty Hx of exploratory laparotomy Hx of release of tendon Hx of arthroscopy of left knee Hx of arthroscopy of right knee History of carpal tunnel surgery of right wrist Hx of arthroscopy of shoulder History of open reduction and internal fixation (ORIF) procedure Hx of right cataract extraction S/P partial mastectomy History of left hip replacement (01/2017) H/O rotator cuff surgery Hist (more content not included)... Normal [facility] Absolute lymphocyte countOrd ered By: Jj Eason on 08-01-2024 Lymphocytes Auto (Unsp spec) [#/Vol] 2.56 10*3/uL 0.83-4.51 [facility] Absolute neutrophil countOrd ered By: Jj Eason on 08-01-2024 Neutrophils (Bld) [#/Vol] 5.4 10*3/uL 2.0-7.7 [facility] Anion gap in Serum or Plasma Ordered By: Jj Eason on 08-01-2024 Anion gap [Moles/Vol] 13 mmol/L 5-[address] [facility] Automated lymphocyte count a s percentage of total leukocytesOrdered By: Jj Eason on 08-01-2024 Lymphocytes/100 WBC Auto (Unsp spec) 28.1 % 19-41 [facility] BUN/creatinine ratioOrdered By: Jj Eason on 08-01-2024 Urea nitrogen/Creatinine [Mass ratio] 21.1 mg/mg High 10-20 [facility] Basophil percentageOrdered B y: Jj Eason on 08-01-2024 Basophils/100 WBC (Bld) 0.9 % 0-1 [facility] Bilirubin, totalOrdered By: Jj Eason on 08-01-2024 Bilirubin [Mass/Vol] 0.26 mg/dL 0.00-1.30 [facility] CBC W/Diff, Automatedon 04- Absolute Lymph 2.56 X10 3/uL Normal 0.83-4.51 [facility] Comment on above: Order Comment: Order Date: 08/01/24Order Info: 0184-1 - CBCD Performed By: #### L 3100.5310, L501.9910, L100.0100, L500.4050, L501.9985 ####[facility] [address] [place], [address] Absolute Neut 5.4 X10 3/uL Normal 2.0-7.7 [facility] Comment on above: Order Comment: Order Date: 08/01/24Order Info: 0184-1 - CBCD Performed By: #### L 3100.5310, L501.9910, L100.0100, L500.4050, L501.9985 ####[facility] [address] [place], [address] Basophils/100 WBC (Bld) 0.9 % Normal 0-1 [facility] Comment on above: Order Comment: Order Date: 08/01/24Order Info: 0184-1 - CBCD Performed By: #### L 3100.5310, L501.9910, L100.0100, L500.4050, L501.9985 ####[facility] [address] [place], [address] Eosinophils/100 WBC (Bld) 2.3 % Normal 0-5 [facility] Comment on above: Order Comment: Order Date: 08/01/24Order Info: 0184-1 - CBCD Performed By: #### L 3100.5310, L501.9910, L100.0100, L500.4050, L501.9985 ####[facility] [address] [place], [address] Erythrocyte distribution width (RBC) [Ratio] 12.9 % Normal 11.6-14.6 [facility] Comment on above: Order Comment: Order Date: 08/01/24Order Info: 0184-1 - CBCD Performed By: #### L 3100.5310, L501.9910, L100.0100, L500.4050, L501.9985 ####[facility] [address] [place], [address] Hematocrit (Bld) [Volume fraction] 43.5 % Normal 40-54 [facility] Comment on above: Order Comment: Order Date: 08/01/24Order Info: 0184-1 - CBCD Performed By: #### L 3100.5310, L501.9910, L100.0100, L500.4050, L501.9985 ####[facility] [address] [place], [address] Hemoglobin (Bld) [Mass/Vol] 14.2 g/dL Normal 13.0-16.5 [facility] Comment on above: Order Comment: Order Date: 08/01/24Order Info: 0184-1 - CBCD Performed By: #### L 3100.5310, L501.9910, L100.0100, L500.4050, L501.9985 ####[facility] [address] [place], [address] IG% 0.800 Normal 0.0-0.9 [facility] Comment on above: Order Comment: Order Date: 08/01/24Order Info: 0184- - CBCD Result Comment: IG% - Immature Granulocytes (promyelocytes, myelocytes and metamyelocytes) > 1% indicates that a LEFT SHIFT is Present. Performed By: #### L 3100.5310, L501.9910, L100.0100, L500.4050, L501.9985 ####[facility] [address] [place], [address] Lymphocytes/100 WBC (Bld) 28.1 % Normal 19-41 [facility] Comment on above: Order Comment: Order Date: 08/01/24Order Info: 0184-1 - CBCD Performed By: #### L 3100.5310, L501.9910, L100.0100, L500.4050, L501.9985 ####[facility] [address] [place], [address] MCH (RBC) [Entitic mass] 30.1 pg Normal 27.0-32.0 [facility] Comment on above: Order Comment: Order Date: 08/01/24Order Info: 0184-1 - CBCD Performed By: #### L 3100.5310, L501.9910, L100.0100, L500.4050, L501.9985 ####[facility] [address] [place], [address] MCHC (RBC) [Mass/Vol] 32.6 g/dL Normal 32-[address] [facility] Comment on above: Order Comment: Order Date: 08/01/24Order Info: 0184-1 - CBCD Performed By: #### L 3100.5310, L501.9910, L100.0100, L500.4050, L501.9985 ####[facility] [address] [place], [address] MCV (RBC) [Entitic vol] 92.4 fL Normal 80-94 [facility] Comment on above: Order Comment: Order Date: 08/01/24Order Info: 0184-1 - CBCD Performed By: #### L 3100.5310, L501.9910, L100.0100, L500.4050, L501.9985 ####[facility] [address] [place], [address] Monocytes/100 WBC (Bld) 8.5 % Normal 0-10 [facility] Comment on above: Order Comment: Order Date: 08/01/24Order Info: 0184-1 - CBCD Performed By: #### L 3100.5310, L501.9910, L100.0100, L500.4050, L501.9985 ####[facility] [address] [place], [address] Neutrophils/100 WBC (Bld) 59.4 % Normal 47-70 [facility] Comment on above: Order Comment: Order Date: 08/01/24Order Info: 0184-1 - CBCD Performed By: #### L 3100.5310, L501.9910, L100.0100, L500.4050, L501.9985 ####[facility] [address] [place], [address] Nucleated RBC (Bld) [#/Vol] 0 10*3/uL Normal 0-5 [facility] Comment on above: Order Comment: Order Date: 08/01/24Order Info: 0184-1 - CBCD Performed By: #### L 3100.5310, L501.9910, L100.0100, L500.4050, L501.9985 ####[facility] [address] [place], [address] Platelet mean volume (Bld) [Entitic vol] 10.8 fL Normal 6.2-12.0 [facility] Comment on above: Order Comment: Order Date: 08/01/24Order Info: 0184-1 - CBCD Performed By: #### L 3100.5310, L501.9910, L100.0100, L500.4050, L501.9985 ####[facility] [address] [place], [address] Platelets (Bld) [#/Vol] 285 10*3/uL Normal 150-450 [facility] Comment on above: Order Comment: Order Date: 08/01/24Order Info: 0184-1 - CBCD Performed By: #### L 3100.5310, L501.9910, L100.0100, L500.4050, L501.9985 ####[facility] [address] [place], [address] RBC (Bld) [#/Vol] 4.71 10*6/uL Normal 4.6-6.2 [facility] Comment on above: Order Comment: Order Date: 08/01/24Order Info: 0184-1 - CBCD Performed By: #### L 3100.5310, L501.9910, L100.0100, L500.4050, L501.9985 ####[facility] [address] [place], [address] RDW SD 43.8 fl Normal 35.1-43.9 [facility] Comment on above: Order Comment: Order Date: 08/01/24Order Info: 0184-1 - CBCD Performed By: #### L 3100.5310, L501.9910, L100.0100, L500.4050, L501.9985 ####[facility] [address] [place], [address] WBC (Bld) [#/Vol] 9.1 10*3/uL Normal 4.4-11.0 [facility] Comment on above: Order Comment: Order Date: 08/01/24Order Info: 0184-1 - CBCD Performed By: #### L 3100.5310, L501.9910, L100.0100, L500.4050, L501.9985 ####[facility] [address] [place], [address] Carbon dioxide, total [Moles /volume] in Central venous bloodOrdered By: Jj Eason on 08-01-2024 CO2 [Moles/Vol] 24.0 mmol/L 21.0-32.0 [facility] Chloride assayOrdered By: Gentry Eason on 08-01-2024 Chloride [Moles/Vol] 101 mmol/L 98-108 [facility] Comprehensive Metabolic Prof ilon 08-01-2024 Albumin [Mass/Vol] 4.4 g/dL Normal 3.5-5.0 [facility] Comment on above: Order Comment: Order Date: 08/01/24Order Info: 0786-1 - CMPOrder Info: 2857-1 - PSA Performed By: #### L 3100.5310, L501.9910, L100.0100, L500.4050, L501.9985 ####[facility] [address] [place], [address] Albumin/Globulin [Mass ratio] 1.6 {ratio} Normal 0.9-2.4 [facility] Comment on above: Order Comment: Order Date: 08/01/24Order Info: 0786-1 - CMPOrder Info: 2857-1 - PSA Performed By: #### L 3100.5310, L501.9910, L100.0100, L500.4050, L501.9985 ####[facility] [address] [place], [address] ALK PHOS 84 U/L Normal 40-129 [facility] Comment on above: Order Comment: Order Date: 08/01/24Order Info: 0786- - CMPOrder Info: 285-1 - PSA Performed By: #### L 3100.5310, L501.9910, L100.0100, L500.4050, L501.9985 ####[facility] [address] [place], [address] ALT [Catalytic activity/Vol] 32 U/L Normal <=46 [facility] Comment on above: Order Comment: Order Date: 08/01/24Order Info: 0786 - CMPOrder Info: 285-1 - PSA Performed By: #### L 3100.5310, L501.9910, L100.0100, L500.4050, L501.9985 ####[facility] [address] [place], [address] AST [Catalytic activity/Vol] 24 U/L Normal <=37 [facility] Comment on above: Order Comment: Order Date: 08/01/24Order Info: 0786- - CMPOrder Info: 28510-25 - PSA Performed By: #### L 3100.5310, L501.9910, L100.0100, L500.4050, L501.9985 ####[facility] [address] [place], [address] Bilirubin [Mass/Vol] 0.26 mg/dL Normal 0.00-1.30 [facility] Comment on above: Order Comment: Order Date: 08/01/24Order Info: 0786- - CMPOrder Info: 2857-1 - PSA Performed By: #### L 3100.5310, L501.9910, L100.0100, L500.4050, L501.9985 ####[facility] [address] [place], [address] BUN/CRE 21.1 RATIO High 10-20 [facility] Comment on above: Order Comment: Order Date: 08/01/24Order Info: 0786-1 - CMPOrder Info: 285-1 - PSA Performed By: #### L 3100.5310, L501.9910, L100.0100, L500.4050, L501.9985 ####[facility] [address] [place], [address] Calcium [Mass/Vol] 9.5 mg/dL Normal 7.6-11.0 [facility] Comment on above: Order Comment: Order Date: 08/01/24Order Info: 0786- - CMPOrder Info: 28510-25 - PSA Performed By: #### L 3100.5310, L501.9910, L100.0100, L500.4050, L501.9985 ####[facility] [address] [place], [address] Chloride [Moles/Vol] 101 mmol/L Normal 98-108 [facility] Comment on above: Order Comment: Order Date: 08/01/24Order Info: 0786- - CMPOrder Info: 2857 - PSA Performed By: #### L 3100.5310, L501.9910, L100.0100, L500.4050, L501.9985 ####[facility] [address] [place], [address] CO2 [Moles/Vol] 24.0 mmol/L Normal 21.0-32.0 [facility] Comment on above: Order Comment: Order Date: 08/01/24Order Info: 0786-1 - CMPOrder Info: 2857-1 - PSA Performed By: #### L 3100.5310, L501.9910, L100.0100, L500.4050, L501.9985 ####[facility] [address] [place], [address] Creatinine [Mass/Vol] 0.93 mg/dL Normal 0.70-1.[address] [facility] Comment on above: Order Comment: Order Date: 08/01/24Order Info: 0786-1 - CMPOrder Info: 2857-1 - PSA Performed By: #### L 3100.5310, L501.9910, L100.0100, L500.4050, L501.9985 ####[facility] [address] [place], [place], [id number] GAP 13 Normal 5-15 [facility] Comment on above: Order Comment: Order Date: 08/01/24Order Info: 0786-1 - CMPOrder Info: 2857-1 - PSA Performed By: #### L 3100.5310, L501.9910, L100.0100, L500.4050, L501.9985 ####[facility] [address] [place], [place], [phone] GFR/1.73 sq M.predicted among non-blacks MDRD (S/P/Bld) [Vol rate/Area] 95 mL/min/{1.73_m2} Normal >60 [facility] Comment on above: Order Comment: Order Date: 08/01/24Order Info: 0786-1 - CMPOrder Info: 2857-1 - PSA Result Comment: mL/m in/1.73m2 CKD-EPI Creatinine Equation (2020) Performed By: #### L 3100.5310, L501.9910, L100.0100, L500.4050, L501.9985 ####[facility] [address] [place], [place], [id number] Globulin (S) [Mass/Vol] 2.8 g/dL Normal 2.2-4.2 [facility] Comment on above: Order Comment: Order Date: 08/01/24Order Info: 0786- - CMPOrder Info: 2857-1 - PSA Performed By: #### L 3100.5310, L501.9910, L100.0100, L500.4050, L501.9985 ####[facility] [address] [place], [address] Glucose [Mass/Vol] 95 mg/dL Normal 70-99 [facility] Comment on above: Order Comment: Order Date: 08/01/24Order Info: 0786- - CMPOrder Info: 2857- - PSA Performed By: #### L 3100.5310, L501.9910, L100.0100, L500.4050, L501.9985 ####[facility] [address] [place], [address] Potassium [Moles/Vol] 4.1 mmol/L Normal 3.3-5.[address] [facility] Comment on above: Order Comment: Order Date: 08/01/24Order Info: 0786 - CMPOrder Info: 2857 - PSA Performed By: #### L 3100.5310, L501.9910, L100.0100, L500.4050, L501.9985 ####[facility] [address] [place], [address] Sodium [Moles/Vol] 138 mmol/L Normal 133-145 [facility] Comment on above: Order Comment: Order Date: 08/01/24Order Info: 0786- - CMPOrder Info: 2857-1 - PSA Performed By: #### L 3100.5310, L501.9910, L100.0100, L500.4050, L501.9985 ####[facility] [address] [place], [address] T PROT 7.3 g/dL Normal 5.9-8.4 [facility] Comment on above: Order Comment: Order Date: 08/01/24Order Info: 0786- - CMPOrder Info: 2856-04 - PSA Performed By: #### L 3100.5310, L501.9910, L100.0100, L500.4050, L501.9985 ####[facility] [address] [place], [address] Urea nitrogen [Mass/Vol] 20 mg/dL High 4-19 [facility] Comment on above: Order Comment: Order Date: 08/01/24Order Info: 0786 - CMPOrder Info: 2856-04 - PSA Performed By: #### L 3100.5310, L501.9910, L100.0100, L500.4050, L501.9985 ####[facility] [address] [place], [place], [address] Eosinophil percentageOrdered By: Jj Eason on 08-01-2024 Eosinophils/100 WBC (Bld) 2.3 % 0-5 [facility] Erythrocyte distribution wid th (RBC) [Ratio]Ordered By: Jj Eason on 08-01-2024 Erythrocyte distribution width (RBC) [Entitic vol] 43.8 fL 35.1-43.9 [facility] Erythrocyte distribution wid th ratioOrdered By: Jj Eason on 08-01-2024 Erythrocyte distribution width (RBC) [Ratio] 12.9 % 11.6-14.6 [facility] Erythrocyte distribution wid th standard deviationOrdered By: Jj Eason on 08-01-2024 Erythrocyte distribution width (RBC) [Ratio] 43.8 fl 35.1-43.9 [facility] Free testosterone percentage Ordered By: Jj Eason on 08-01-2024 Testosterone Free/Testosterone.tot al [Mass fraction] 3.31 % 1.50-4.20 [facility] Comment on above: Performed at: [address] [id number] Director: Leonard Oliver PhD, Phone: [phone] at: [facility] [id number] Director: Gerson Day MD, Phone: [phone] GFR/1.73 sq M.predicted chase g non-blacks MDRD (S/P/Bld) [Vol rate/Area]Ordered By: Jj Eason on 08-01-2024 Estimated GFR (MDRD) Non-Af Amer 95 >60 [facility] Comment on above: mL/min/1.73m2 CKD-EP I Creatinine Equation (2020) Glomerular filtration rate ( GFR) estimation/1.73 sq m using serum, plasma, or whole bOrdered By: Jj Eason on 08-01-2024 GFR/1.73 sq M.predicted among non-blacks MDRD (S/P/Bld) [Vol rate/Area] 95 mL/min/{1.73_m2} >60 [facility] Comment on above: mL/min/1.73m2 CKD-EP I Creatinine Equation (2020) Hematocrit Auto (Bld) [Volum e fraction]Ordered By: Jj Eason on 08-01-2024 Hematocrit (Bld) [Volume fraction] 43.5 % 40-54 [facility] Hemoglobin A1con 08-01-2024 HbA1c (Bld) [Mass fraction] 5.9 % Normal <=5.6 [facility] Comment on above: Order Comment: Order Date: 08/01/24Order Info: [id number] - A1C Performed By: #### L 3100.5310, L501.9910, L100.0100, L500.4050, L501.9985 ####[facility] [address] [facility] [place], [place], [id number] Hemoglobin A1c percentageOrd ered By: Jj Eason on 08-01-2024 HbA1c (Bld) [Mass fraction] 5.9 % >5.7 [facility] Hemoglobin measurementOrdere d By: Jj Eason on 08-01-2024 Hemoglobin (Bld) [Mass/Vol] 14.2 g/dL 13.0-16.5 [facility] Immature granulocytes/100 WB C Auto (Bld)Ordered By: Jj Eason on 08-01-2024 Immature granulocytes/100 WBC (Bld) 0.800 % 0.0-0.9 [facility] Comment on above: IG% - Immature Granu locytes (promyelocytes, myelocytes and metamyelocytes) > 1% indicates that a LEFT SHIFT is Present. Laboratory - Chemistry and C hemistry - challengeOrdered By: Jj Eason on 08-01-2024 AST [Catalytic activity/Vol] 24 U/L <38 [facility] Lymphocytes Auto (Unsp spec) [#/Vol]Ordered By: Jj Eason on 08-01-2024 Lymphocytes (Bld) [#/Vol] 2.56 10*3/uL 0.83-4.51 [facility] Lymphocytes/100 WBC Auto (Un sp spec)Ordered By: Jj Eason on 08-01-2024 Lymphocytes/100 WBC (Bld) 28.1 % 19-41 [facility] MCV (mean corpuscular volume ) determinationOrdered By: Jj Eason on 08-01-2024 MCV (RBC) [Entitic vol] 92.4 fL 80-94 [facility] Mean corpuscular hemoglobin (MCH) determinationOrdered By: Jj Eason on 08-01-2024 MCH (RBC) [Entitic mass] 30.1 pg 27.0-32.0 [facility] Mean corpuscular hemoglobin concentration (MCHC) determinationOrdered By: Jj Eason on 08-01-2024 MCHC (RBC) [Mass/Vol] 32.6 g/dL 32-[address] [facility] Mean platelet volume determi nationOrdered By: Jj Eason on 08-01-2024 Platelet mean volume (Bld) [Entitic vol] 10.8 fL 6.2-12.0 [facility] Monocyte percentageOrdered B y: Jj Eason on 08-01-2024 Monocytes/100 WBC (Bld) 8.5 % 0-10 [facility] Neutrophil percentageOrdered By: Jj Eason on 08-01-2024 Neutrophils/100 WBC (Bld) 59.4 % 47-70 [facility] Nucleated red blood cell per centageOrdered By: Jj Eason on 08-01-2024 Nucleated RBC/100 WBC (Bld) [Ratio] 0 % 0-5 [facility] PSA, total screeningOrdered By: Jj Eason on 08-01-2024 Prostate Specific Antigen Screen 0.79 ng/mL 0.02-4.00 [facility] Comment on above: This test was perfor med using the [employer] tPSA method. Measured values of a patient sample can vary depending on the testing procedure used. PSA values determined on patient samples by different testing procedures cannot be used interchangeably. If there is a change in PSA assays while monitoring therapy, sequential testing should be performed to confirm baseline values. PSA,Total - Annual Screenon 08-01-2024 PSA,TOT SCREEN 0.79 ng/mL Normal 0.02-4.00 [facility] Comment on above: Order Comment: Order Date: 08/01/24Order Info: 0786-1 - CMPOrder Info: [id number] - PSA Result Comment: This test was performed using the [employer] tPSA method. Measured values of a patient??sample can vary depending on the testing procedure used. PSA values determined on patient samples by different testing procedures cannot be used interchangeably. If there is a change in PSA assays while monitoring therapy, sequential testing should be performed to confirm baseline values. Performed By: #### L 3100.5310, L501.9910, L100.0100, L500.4050, L501.9985 ####[facility] [address] [place], [address] Platelet countOrdered By: Gentry Eason on 08-01-2024 Platelets (Bld) [#/Vol] 285 10*3/uL 150-450 [facility] Potassium (Unsp spec) [Mass/ Vol]Ordered By: Jj Eason on 08-01-2024 Potassium [Moles/Vol] 4.1 mmol/L 3.3-5.[address] [facility] Potassium measurement (mass/ volume)Ordered By: Jj Eason on 08-01-2024 Potassium (Unsp spec) [Mass/Vol] 4.1 mmol/L 3.3-5.1 [facility] RBC Auto (Bld) [#/Vol]Ordere d By: jJ Eason on 08-01-2024 RBC (Bld) [#/Vol] 4.71 10*6/uL 4.6-6.2 [facility] Serum creatinine measurement (mass/volume)Ordered By: Jj Eason on 08-01-2024 Creatinine [Mass/Vol] 0.93 mg/dL 0.70-1.[address] [facility] Serum globulin measurementOr dered By: Jj Eason on 08-01-2024 Globulin (S) [Mass/Vol] 2.8 g/dL 2.2-4.2 [facility] Serum glucose measurement (m ass/volume)Ordered By: Jj Eason on 08-01-2024 Glucose [Mass/Vol] 95 mg/dL 70-99 [facility] Serum or plasma alanine butt otransferase (ALT) measurementOrdered By: Jj Eason on 08-01-2024 ALT [Catalytic activity/Vol] 32 U/L <47 [facility] Serum or plasma albumin halle urement (mass/volume)Ordered By: Jj Eason on 08-01-2024 Albumin [Mass/Vol] 4.4 g/dL 3.5-5.0 [facility] Serum or plasma albumin/glob ulin mass ratioOrdered By: Jj Eason on 08-01-2024 Albumin/Globulin [Mass ratio] 1.6 {ratio} 0.9-2.4 [facility] Serum or plasma alkaline lee sphatase measurementOrdered By: Jj Eason on 08-01-2024 ALP [Catalytic activity/Vol] 84 U/L 40-129 [facility] Serum or plasma calcium halle urement (mass/volume)Ordered By: Jj Eason on 08-01-2024 Calcium [Mass/Vol] 9.5 mg/dL 7.6-11.0 [facility] Serum or plasma free testost erone measurement (mass/volume)Ordered By: Jj Eason on 08-01-2024 Testosterone Free [Mass/Vol] 11.62 ng/dL 5.00-21.00 [facility] Serum or plasma urea nitroge n measurement (mass/volume)Ordered By: Jj Eason on 08-01-2024 Urea nitrogen [Mass/Vol] 20 mg/dL High 4-19 [facility] Sodium levelOrdered By: Jj Eason on 08-01-2024 Sodium [Moles/Vol] 138 mmol/L 133-145 [facility] Testosterone, totalOrdered B y: Jj Eason on 08-01-2024 Testosterone [Mass/Vol] 351 ng/dL 264-916 [facility] Comment on above: Adult male reference interval is based on a population ofhealthy nonobese males (BMI <30) between 19 and 39 yearsold. Carley, et.al. JCEM 2017,102;9496-1236. PMID:[id number]. Total proteinOrdered By: Yareli Eason on 08-01-2024 Protein [Mass/Vol] 7.3 g/dL 5.9-8.4 [facility] Vitamin D, 25-hydroxyOrdered By: Jj Eason on 08-01-2024 Vitamin D 25-Hydroxy 34.8 ng/mL 30-100 [facility] Comment on above: Vitamin D StatusDefi ciency: <20 ng/mL (50nmol/L)Insufficiency: 20-30 ng/mL (50-75 nmol/L)Sufficiency: 30-100 ng/mL (75-250 nmol/L)Toxicity: >100 ng/mL (>250 nmol/L) Vitamin D,25 Hydroxyon 08-01 Vitamin D 25-OH 34.8 ng/mL Normal 30-100 [facility] Comment on above: Order Comment: Order Date: 08/01/24Order Info: 0786-1 - CMPOrder Info: [id number] - PSA Result Comment: Earline min D Status Deficiency: <20 ng/mL (50nmol/L) Insufficiency: 20-30 ng/mL (50-75 nmol/L) Sufficiency: 30-100 ng/mL (75-250 nmol/L) Toxicity: >100 ng/mL (>250 nmol/L) Performed By: #### L 506.1001 ####[facility] [address] [place], [place], [id number] White blood cell (WBC) count Ordered By: Jj Eason on 08-01-2024 WBC (Bld) [#/Vol] 9.1 10*3/uL 4.4-11.0 [facility] Orthopedic Visit Reporton Orthopedic Visit Report [facility] [address] [place] [address] [address] [place] [address] OFFICE VISIT Date of Service: 07/28/24 MR#: [id number] Acct: [id number] Name: MELIZA EASTMAN Rep #: [id number] : 1965 Provider: Dr. Darwin street MD Age/Sex: 59/M Location: [facility] Status: Signed with Addenda ADDENDUM by FABRICIO Stringer on 07/28/24 at 1121 Office Procedure Documentation entered by Micah Stringer MA 07/28/24 11:21: Euflexxa Procedure Details:: Obtained consent for injection. Under sterile conditions, injected the patients BL knee with 2nd Euflexxa 40 ml. The patient tolerated the injection well without any noted complication. Patient should call our office if redness develops, pain worsens or if they have any concerns. Is this Buy Bill?: Yes Office Meds Euflexxa 10 mg/mL (mw 2.4-3.6 million) intra-articular syringe Performing Provider: Darwin Badillo MD Performing Location: [facility] Administered by: Darwin Badillo MD on 07/28/24 11:18 Dose Route Admin Location Dispensed Lot Number Expiration Date [facility] Man ufacturer 40 mg intra-articular Bilateral knee 4 mL [id number] 04/16/25 [address]-3 [employer] Date cc: * Signed Intake Vital Signs 07/01/24 13:37 07/19/24 12:59 07/28/24 10:43 Height 5 ft 10 in 5 ft 10 in 5 ft 10 in Weight: 345 lb 345 lb BMI 49.5 49.5 Intake Visit Reasons: BL KNEES Chief Complaint: 2nd Euflexxa BL knee Accompanied by: Self Is patient in pain?: Yes Pain scale (1-10): 6 Allergies atorvastatin (From Lipitor) Allergy (Verified 07/28/24 10:48) Muscle soreness, Tremors escitalopram (From Lexapro) Allergy (Verified 07/28/24 10:48) Headache Penicillins Allergy (Verified 07/28/24 10:48) Hives pravastatin (From Pravachol) Allergy (Verified 07/28/24 10:48) Muscle soreness, Tremors tolmetin Allergy (Verified 07/28/24 10:48) Anaphylaxis meloxicam Adverse Reaction (Verified 07/28/24 10:48) Other Medications ???Medication ???Instructions ???Recorded ???Confirmed ???Type multivitamin (Daily Multi-Vitamin 1 tab PO DAILY supplement 0 07/28/24 History tablet) lamotrigine 200 mg tablet 400 mg PO QHS skin 08/02/20 History acetaminophen 500 mg capsule 500 mg PO Q6H PRN Pain 05/21/21 History bupropion HCl 150 mg tablet,12 hr 150 mg PO BID depression 12/03/21 07/28/24 History sustained-release (Wellbutrin SR) ascorbic acid (vitamin C) 500 mg 1,000 mg PO DAILY vitamin 05/27/22 07/28/24 History tablet (Vitamin C) cholecalciferol (vitamin D3) 25 2,000 unit PO DAILY vitamin 07/28/24 History mcg (1,000 unit) chewable tablet (Vitamin D3) ramipril 10 mg capsule 10 mg PO BID bp 05/27/22 07/28/24 History tamsulosin 0.4 mg capsule 0.4 mg PO Q24H prostate 11/14/22 0 07/28/24 History gabapentin 800 mg tablet 800 mg PO QHS pain 02/25/23 History hydrochlorothiazide 25 mg tablet 25 mg PO DAILY 05/01/23 07/28/24 H istory omeprazole 40 mg capsule,delayed 40 mg PO DAILY 08/20/23 07/28/24 H istory release carvedilol 12.5 mg tablet 12.5 mg PO BID 03/16/24 07/28/24 H istory amlodipine 5 mg tablet 5 mg PO QHS blood pressure #90 tab s 04/01/24 07/28/24 Rx ezetimibe 10 mg tablet (Zetia) 10 mg PO DAILY cholesterol #90 tab s 04/01/24 07/28/24 Rx flurbiprofen 100 mg tablet 100 mg PO TID PRN pain #90 tabs 07/28/24 Rx perphenazine 4 mg tablet 8 mg PO QHS 06/13/24 07/28/24 Hist ory tramadol 50 mg tablet 100 mg PO BID PRN pain 06/13/24 History Have you fallen in the past year?: No [facility] Medical History History of acute renal failure Family history of malignant neoplasm of colon in first degree relative diagnosed when younger than 60 years of age Family history of colon cancer in father Osteoarthritis of left knee Left knee pain Medical non-compliance Metabolic encephalopathy Abnormal lithium level in blood History of bipolar disorder Obesity, morbid, BMI 50 or higher Wears glasses Headache Loss of consciousness Pain Primary osteoarthritis, right shoulder Primary osteoarthritis, left shoulder Left shoulder pain Right shoulder pain Dizziness Degenerative joint disease (DJD) of hip Cancer Bipolar disorder Depression Anxiety Ambulates with cane Arthritis High cholesterol Back pain Injury of head and neck Hx of reactive hypoglycemia Non-smoker CPAP (continuous positive airway pressure) dependence Shortness of breath on exertion Chronic cough History of pain when walking History of edema Hypertension Cardiology follow-up encounter History of echocardiogram (more content not included)... Normal [facility] Orthopedic Visit Reporton Orthopedic Visit Report [facility] [address] [place] [address] OFFICE VISIT Date of Service: 07/19/24 MR#: [id number] Acct: [id number] Name: MELIZA EASTMAN Rep #: [id number] : 1965 Provider: Dr. Darwin street MD Age/Sex: 59/M Location: [facility] Status: Signed with Addenda ADDENDUM by FABRICIO Stringer on 07/19/24 at 1325 Office Procedure Documentation entered by Micah Stringer MA 07/19/24 13:25: Euflexxa Procedure Details:: Obtained consent for injection. Under sterile conditions, injected the patients BL knee with 20 mg/2ml of Euflexxa in each knee. The patient tolerated the injection well without any noted comp lication. Patient should call our office if redness develops, pain worsens or if they have any concerns. Is this Buy Bill?: Yes Office Meds Euflexxa 10 mg/mL (mw 2.4-3.6 million) intra-articular syringe Performing Provider: Darwin Badillo MD Performing Location: [facility] Administered by: Darwin Badillo MD on 07/19/24 13:20 Dose Route Admin Location Dispensed Lot Number Expiration Date [place] Man ufacturer 40 mg intra-articular BL Knee 4 mL [id number] 04/16/25 [address]-2 [employer] Date cc: * Signed Intake Vital Signs 06/13/24 09:05 07/01/24 13:37 07/19/24 12:59 Height 5 ft 10 in 5 ft 10 in 5 ft 10 in Weight: 345 lb BMI 49.5 Intake Visit Reasons: BL KNEES Chief Complaint: BL knees Accompanied by: Self Is patient in pain?: Yes Pain scale (1-10): 7 Allergies atorvastatin (From Lipitor) Allergy (Verified 07/19/24 13:03) Muscle soreness, Tremors escitalopram (From Lexapro) Allergy (Verified 07/19/24 13:03) Headache Penicillins Allergy (Verified 07/19/24 13:03) Hives pravastatin (From Pravachol) Allergy (Verified 07/19/24 13:03) Muscle soreness, Tremors tolmetin Allergy (Verified 07/19/24 13:03) Anaphylaxis meloxicam Adverse Reaction (Verified 07/19/24 13:03) Other Medications ???Medication ???Instructions ???Recorded ???Confirmed ???Type multivitamin (Daily Multi-Vitamin 1 tab PO DAILY supplement 0 07/19/24 History tablet) lamotrigine 200 mg tablet 400 mg PO QHS skin 08/02/20 History acetaminophen 500 mg capsule 500 mg PO Q6H PRN Pain 05/21/21 History bupropion HCl 150 mg tablet,12 hr 150 mg PO BID depression 12/03/21 07/19/24 History sustained-release (Wellbutrin SR) ascorbic acid (vitamin C) 500 mg 1,000 mg PO DAILY vitamin 05/27/22 07/19/24 History tablet (Vitamin C) cholecalciferol (vitamin D3) 25 2,000 unit PO DAILY vitamin 07/19/24 History mcg (1,000 unit) chewable tablet (Vitamin D3) ramipril 10 mg capsule 10 mg PO BID bp 05/27/22 07/19/24 History tamsulosin 0.4 mg capsule 0.4 mg PO Q24H prostate 11/14/22 0 07/19/24 History gabapentin 800 mg tablet 800 mg PO QHS pain 02/25/23 History hydrochlorothiazide 25 mg tablet 25 mg PO DAILY 05/01/23 07/19/24 H istory omeprazole 40 mg capsule,delayed 40 mg PO DAILY 08/20/23 07/19/24 H istory release carvedilol 12.5 mg tablet 12.5 mg PO BID 03/16/24 07/19/24 H istory amlodipine 5 mg tablet 5 mg PO QHS blood pressure #90 tab s 04/01/24 07/19/24 Rx ezetimibe 10 mg tablet (Zetia) 10 mg PO DAILY cholesterol #90 tab s 04/01/24 07/19/24 Rx flurbiprofen 100 mg tablet 100 mg PO TID PRN pain #90 tabs 07/19/24 Rx perphenazine 4 mg tablet 8 mg PO QHS 06/13/24 07/19/24 Hist ory tramadol 50 mg tablet 100 mg PO BID PRN pain 06/13/24 History Have you fallen in the past year?: No PF[facility] Medical History History of acute renal failure Family history of malignant neoplasm of colon in first degree relative diagnosed when younger than 60 years of age Family history of colon cancer in father Osteoarthritis of left knee Left knee pain Medical non-compliance Metabolic encephalopathy Abnormal lithium level in blood History of bipolar disorder Obesity, morbid, BMI 50 or higher Wears glasses Headache Loss of consciousness Pain Primary osteoarthritis, right shoulder Primary osteoarthritis, left shoulder Left shoulder pain Right shoulder pain Dizziness Degenerative joint disease (DJD) of hip Cancer Bipolar disorder Depression Anxiety Ambulates with cane Arthritis High cholesterol Back pain Injury of head and neck Hx of reactive hypoglycemia Non-smoker CPAP (continuous positive airway pressure) dependence Shortness of breath on exertion Chronic cough History of pain when walking History of edema Hypertension Cardiology follow-up encounter History of echocardiogram History of (more content not included)... Normal [facility] NCS and/or EMG Patienton NCS and/or EMG Patient [facility] Pulmonary Services/Neurology [address] [place] [address] MR#: [id number] Acct: [id number] Name: MELIZA EASTMAN Rep #: [id number] : 1965 59 From: Gladis Bucio MD Referring Dr: Jean-Paul Estrada MD Status: REG CL I Location: PSN Date: 07/06/24 Sex: M C NCS and/or EMG Patient Report Ordering Doctor: Jean-Paul Estrada DATE OF SERVICE: 07/06/24 Meliza presents with complaints of numbness and tingling, primarily in the left hand. Electrodiagnostic findings: Right median motor nerve demonstrates prolonged latency with normal amplitude and conduction velocity. Left median motor nerve demonstrates prolonged latency with normal amplitude and conduction velocity. Ulnar motor response is normal bilaterally. Normal median and ulnar F???waves. Prolonged median sensory latency at the wrist bilaterally. Normal ulnar and radial sensory responses. Needle EMG testing was performed in the upper limbs. All muscles tested showed no evidence of denervation with normal motor unit action potentials. Electrodiagnostic impression: This is an abnormal study in the upper limbs 1. Electrodiagnostic findings suggestive of bilateral median mononeuropathy. This is consistent with a mild bilateral carpal tunnel syndrome. Multi Select Codes Neurology Neurology Interp Codes: 60541-07 Musc test done w/n test comp (interp) (2) and 81532-67 Nrv cndj test 9-10 studies (interp) 07/06/24 1403 Date Gladis Bucio MD CC: Dr. Gladis Bucio MD; Dr. Jj Eason MD; Dr. Jean-Paul Estrada MD Date Dictated: 07/06/24 1400 Date Transcribed: 07/06/24 1400 Trip Follower: AA Signed Normal [facility] Neurology Visit Reporton Neurology Visit Report [address], [address] [place] [id number] OFFICE VISIT Date of Service: 06/13/24 MR#: [id number] Acct: [id number] Name: MELIZA EASTMAN Rep #: [id number] : 1965 Provider: Dr. Jean-Paul noriega MD Age/Sex: 59/M Location: [facility] Status: Signed HPI HPI Chief Complaint: Establish Care Details: History: The patient is a 59-year-old right-handed male with a past medical history of hypertension, hyperlipidemia, hypertrophic cardiomyopathy, diastolic congestive heart failure, obesity, sleep apnea, depression, left total hip replacement, and bipolar disorder who presents for evaluation of memory loss, gait imbalance, and headaches. He has been experiencing memory difficulties since around 2022 and this is worsened over time. He has difficulty recalling names. He has mild difficulty recalling conversations. He feels that his mentation is slowed somewhat. He remains independent in his daily activities. He is able to perform calculations to manage his finances. He does not get lost while driving. He has been experiencing lightheadedness. This has occurred with both arising from a lying or seated position to the standing position and has also occurred when moving from a standing position to a lying position. He denies having vertigo or disequilibrium. His lightheadedness has been present since early 2023. He has been experiencing some gait imbalance which fluctuates. He attributes his gait imbalance primarily to osteoarthritis. He reports that he has osteoarthritis of the knees, right hip and shoulders. He also has neck pain and low back pain. In 2016 he experienced left sciatica; this resolved. 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 He denies having focal weakness. He states that he feels generally weak and attributes this to deconditioning. He has numbness and tingling in the hands. He has been diagnosed with bilateral carpal tunnel syndrome in years past and underwent right carpal tunnel surgery in 2008 and this was of benefit. He has been experiencing pressure type headaches since he was in college. These occur almost daily. He does not awaken with a headache. His headaches are localized to the occipital and frontal head regions primarily. He does not have associated photophobia, phonophobia or nausea. His headaches are mild to moderate in severity. He is unaware of any triggers for his headaches. Acetaminophen and diclofenac have been of benefit for his headaches. His head CT and head MRI reveals bilateral cerebellar and bilateral basal ganglia calcifications. Moderate bilateral periventricular and subcortical white matter chronic small vessel ischemic disease is also noted. He does not have any history of REGIONAL MARKETING MANAGER infection or clinically manifested lateralizing stroke. There is no family history of metabolic disorder involving calcium metabolism. He has sleep apnea. He did not tolerate CPAP. He has daytime fatigue and daytime hypersomnolence. He does not feel well rested when he awakens in the morning. He had 2 occurrences of acute renal failure in the fall 2023; 1 of these occurrences was related to lithium toxicity. He states that his renal failure improved. He reports having a mild tremor that is present with action. It does not appear that the tremor is causing significant functional impairment. On orthopedic evaluation of his spinal pathology, he was felt to have DISH (diffuse idiopathic skeletal hyperostosis). Past Medical History: As above. There is no history of diabetes mellitus, lung disease, symptomatic lateralizing stroke, seizure, thyroid disease, or cancer. Social History: There is no history of smoking tobacco. There is no history of alcohol abuse or illicit drug use. The patient has a doctorate in veterinary medicine. 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 Family History: There is no family history of cerebral aneurysm, seizure, stroke, or metabolic disorder involving calcium tablets and. In the patient's great-grandmother had dementia. Review of Systems: As above. The patient has not had any recent fever, rash, weight change, chest pain, or gastrointestinal problems. He has urinary frequency. He has depression and anxiety. He has dyspnea on exertion. Physical Exam: General: Well-developed, well-nourished male in no acute distress. Neuro: The patient is awake and alert and responds appropriately; speech is fluent; language function is within normal limits; Mini-Mental status exam score is 30/30 Cranial nerves: PERRL, 2-3mm bilaterally; EOMI; visual bahena are full; visual acuity is 20/20 bilaterally; face is symmetrical; tongue is midline; there are no deficits to pinprick Cerebellar system: No nystagmus or dysmetria Deep tendon reflexes: Absent at the (more content not included)... Normal [facility] Orthopedic Visit Reporton Orthopedic Visit Report [facility] [address] [place] [address] OFFICE VISIT Date of Service: 06/02/24 MR#: [id number] Acct: [id number] Name: MELIZA EASTMAN Rep #: [id number] : 1965 Provider: Dr. Darwin street MD Age/Sex: 58/M Location: [facility] Status: Signed with Addenda ADDENDUM by Sally Kelsey on 06/02/24 at 1011 Office Procedure Documentation entered by Sally Kelsey 06/02/24 10:11: Ortho Injections Injections Yes Knee Bilateral Is this a patient provided medication?: No Details: Obtained consent for injection. Under sterile conditions, injected the patients bilateral knee with 2.0mL Kenalog and 4.0mL Bupivacaine in each knee. The patient tolerated the injection well without any noted complication. Patient should call our office if redness develops, pain worsens or if they have any concerns. Office Meds Kenalog 40 mg/mL suspension for injection Performing Provider: Darwin Badillo MD Performing Location: [facility] Administered by: Darwin Badillo MD on 06/02/24 10:10 Dose Route Admin Location Dispensed Lot Number Expiration Date NDC Man ufacturer 160 mg intra-articular Bilateral Knee 4 mL [id number] 08/25/25 4681-6704-63 B [facility] Date cc: * Signed Intake Vital Signs 05/02/24 09:09 Height 5 ft 10 in Intake Visit Reasons: BILATERAL KNEES Chief Complaint: Bilateral Knees - Seeking Injections Accompanied by: Self Is patient in pain?: Yes Pain scale (1-10): 8 Allergies atorvastatin (From Lipitor) Allergy (Verified 06/02/24 09:34) Muscle soreness, Tremors escitalopram (From Lexapro) Allergy (Verified 06/02/24 09:34) Headache Penicillins Allergy (Verified 06/02/24 09:34) Hives pravastatin (From Pravachol) Allergy (Verified 06/02/24 09:34) Muscle soreness, Tremors tolmetin Allergy (Verified 06/02/24 09:34) Anaphylaxis meloxicam Adverse Reaction (Verified 06/02/24 09:34) Other Medications ???Medication ???Instructions ???Recorded ???Confirmed ???Type multivitamin (Daily Multi-Vitamin 1 tab PO DAILY supplement 0 06/02/24 History tablet) lamotrigine 200 mg tablet 400 mg PO QHS skin 08/02/20 History acetaminophen 500 mg capsule 500 mg PO Q6H PRN Pain 05/21/21 History bupropion HCl 150 mg tablet,12 hr 150 mg PO BID depression 12/03/21 06/02/24 History sustained-release (Wellbutrin SR) ascorbic acid (vitamin C) 500 mg 1,000 mg PO DAILY vitamin 05/27/22 06/02/24 History tablet (Vitamin C) cholecalciferol (vitamin D3) 25 2,000 unit PO DAILY vitamin 06/02/24 History mcg (1,000 unit) chewable tablet (Vitamin D3) ramipril 10 mg capsule 10 mg PO BID bp 05/27/22 06/02/24 History tamsulosin 0.4 mg capsule 0.4 mg PO Q24H prostate 11/14/22 0 06/02/24 History gabapentin 800 mg tablet 800 mg PO QHS pain 02/25/23 History hydrochlorothiazide 25 mg tablet 25 mg PO DAILY 05/01/23 06/02/24 H istory nabumetone 750 mg tablet 750 mg PO BID 08/20/23 06/02/24 Hi story omeprazole 40 mg capsule,delayed 40 mg PO DAILY 08/20/23 06/02/24 H istory release tramadol 50 mg tablet 50 mg PO QHS PRN PRN pain 08/20/23 06/02/24 History perphenazine 4 mg tablet 4 mg PO QHS 11/25/23 06/02/24 Hist ory carvedilol 12.5 mg tablet 12.5 mg PO BID 03/16/24 06/02/24 H istory amlodipine 5 mg tablet 5 mg PO QHS blood pressure #90 tab s 04/01/24 06/02/24 Rx ezetimibe 10 mg tablet (Zetia) 10 mg PO DAILY cholesterol #90 tab s 04/01/24 06/02/24 Rx [facility] Medical History History of acute renal failure Family history of malignant neoplasm of colon in first degree relative diagnosed when younger than 60 years of age Family history of colon cancer in father Osteoarthritis of left knee Left knee pain Medical non-compliance Metabolic encephalopathy Abnormal lithium level in blood History of bipolar disorder Obesity, morbid, BMI 50 or higher Wears glasses Headache Loss of consciousness Pain Primary osteoarthritis, right shoulder Primary osteoarthritis, left shoulder Left shoulder pain Right shoulder pain Dizziness Degenerative joint disease (DJD) of hip Cancer Bipolar disorder Depression Anxiety Ambulates with cane Arthritis High cholesterol Back pain Injury of head and neck Hx of reactive hypoglycemia Non-smoker CPAP (continuous positive airway pressure) dependence Shortness of breath on exertion Chronic cough History of pain when walking History of edema Hypertension Cardiology follow-up encounter History of echocardiogram History of stress test Osteoarthritis of right hip Chest pain SOBOE (shortness of breath (more content not included)... Normal [facility] Fluoro Guided Needle Placeme nton 05-02-2024 Fluoro Guided Needle Placement [facility] Imaging Services [address] [place] [address] [id number] Fluoro Guided Needle Placement MR#: [id number] Acct: [id number] Name: MELIZA EASTMAN Rep #: [id number] : 1965 58 From: Daniel sims MD PCP: Dr. Jj Eason MD Status: [facility] Study: Fluoro Guided Needle Placement Date of Exam: 0 05/02/24 Exam# [id number] Ordering [place]: [place] [id number] STUDY: SHOULDER INJECTION RIGHT REASON FOR EXAM: Male, 58 years old. BILAT SHOULDER INJECTIONS -- RIGHT FLUOROSCOPY TIME (if supplied): ( 8 seconds ) minutes/seconds. 1.53 mGy. RAD/Fluoro Guided Needle Placement IMPRESSION: Intraoperative imaging provided for right shoulder injection. Electronically Signed: Daniel Torres MD at 12:06 EST , CC: Dr. Jj Eason MD; Dr. Sin Murphy MD Trip Follower: Signed [facility] Fluoro Guided Needle Placement [facility] Imaging Services [address] [place] [address] Fluoro Guided Needle Placement MR#: [id number] Acct: [id number] Name: MELIZA EASTMAN Rep #: [id number] : 1965 M 58 From: Daniel sims MD PCP: Dr. Jj Eason MD Status: [facility] Study: Fluoro Guided Needle Placement Date of Exam: 0 05/02/24 Exam# [id number] Ordering [place]: [place] [id number] STUDY: SHOULDER INJECTION. LEFT REASON FOR EXAM: Male, 58 years old. BILAT SHOULDER INJECTIONS -- LEFT FLUOROSCOPY TIME (if supplied): ( 8 seconds ) minutes/seconds. 1.53 mGy. 2 images were submitted. RAD/Fluoro Guided Needle Placement IMPRESSION: Intraoperative imaging provided for left shoulder injection. Electronically Signed: Daniel Torres MD at 12:19 EST , CC: Dr. Jj Eason MD; Dr. Sin Murphy MD Trip Follower: Signed [facility] MR/POSTOP.ANEon 05-02-2024 MR/POSTOP.[facility] Medical Records Department [address] [place] [address] Anesthesia Postop Eval I 05/02/24 1411 MR#: [id number] Acct: [id number] Name: MELIZA EASTMAN Rep #: [id number] : 1965 58 From: Laith Sellers CRNA PCP: Dr. Jj Eason MD Status:[facility] [place] Y Race: C Location: [facility] Anesthesia: Postop Eval I Current Vital Signs Temperature: 98 F Pulse Rate: 70 Blood Pressure: 158/80 Respiratory Rate: 16 Pulse Ox: 98 Oxygen Delivery Method: Room Air Assessment Airway patent: Yes Spontaneous unlabored respirations: Yes Mental status: Awake and Calm nausea: No Vomiting: No Anesthesia Complication: No Fluid Hydration Crystalloid volume administer (ml): 30 Total IV fluid infused: 30 Progress Note Anesthesia document: Postop Eval 1 completed: Yes 05/02/24 1411 Date Laith Sellers SYNOPTIC METEOROLOGIST Cosigner Signature: Date CC: Signed Normal [facility] MR/YSHBUAJU2zw 05-02-2024 [facility] Medical Records Department [address] [place] [address] Anesthesia Postop Eval II 05/02/24 1412 MR#: [id number] Acct: [id number] Name: MELIZA EASTMAN Rep #: [id number] : 1965 58 From: Grupo Pearson MD PCP: Dr. Jj Eason MD Status:[facility] Y Race: C Location: [facility] Anesthesia Postop Eval I Sum Postop Eval Completion status Anesthesia document: Postop Eval 1 completed: Yes Anesthesia Postop Eval I Summary Anesthesia Postop Eval I Summary: Anesthesia Postop Eval I: Assessment Summary Airway patent Yes 05/02/24 14:11 SYNOPTIC METEOROLOGIST.JBLOU Spontaneous unlabored Yes 05/02/24 14:11 SYNOPTIC METEOROLOGIST.JBLOU respirations Mental status Awake,Calm 05/02/24 14:11 SYNOPTIC METEOROLOGIST.JBLOU nausea No 05/02/24 14:11 SYNOPTIC METEOROLOGIST.JBLOU Vomiting No 05/02/24 14:11 SYNOPTIC METEOROLOGIST.JBLOU Anesthesia Postop Eval I: Fluid Summary Crystalloid volume administer 30 05/02/24 14:11 SYNOPTIC METEOROLOGIST.JBLOU (ml) Colloids volume administered ( ml) Blood Product volume administered (ml) Total IV fluid infused 30 05/02/24 14:11 SYNOPTIC METEOROLOGIST.JBLOU Anesthesia Postop Eval I: Summary Notes Anesthesia Complication No 05/02/24 14:11 SYNOPTIC METEOROLOGIST.JBLOU Anesthesia Complication Comment: Post-operative progress note Anesthesia: Postop Eval II Evaluation Mental status: Awake and Calm Pain Level: 1 nausea: No Vomiting: No Complications Anesthesia Complication: No 05/02/24 1412 Date Grupo Pearson MD Cosigner Signature: Date CC: Signed Normal [facility] Operative Reporton 5 Operative Report [facility] Medical Records Department [address] [place] [address] Operative Report 05/02/24 1043 MR#: [id number] Acct: [id number] Name: MELIZA EASTMAN Rep #: [id number] : 1965 58 From: Sin Murphy MD PCP: Dr. Jj Eason MD Status:[facility] Location: [place] [address] Operative Report (Standard) Operative Information Date of Procedure: 05/02/24 Pre-Operative Diagnosis: 1 Post-Operative Diagnosis: 1 Surgery/Procedure Performed: 1 shearing shed hand: No Type of Anesthesia: MAC and Topical Anesth RN Documented Start/Stop Times: Operation Date: 05/02/24 10:20 Case Time Into Pre-Op 05/02/24 08:56 Out of Pre-Op 05/02/24 10:27 Anesthesia Start 05/02/24 10:31 Into Room 05/02/24 10:31 Procedure End 05/02/24 10:41 Procedure Start Time: 10:44 Procedure Stop Time: 10:44 Select all DRAINS/GRAFTS/IMPLANTS that apply: None Estimated Blood Loss: 1 Specimen collected: No Description of surgery: PREOPERATIVE DIAGNOSIS: Osteoarthritis of bilateral shoulder POSTOPERATIVE DIAGNOSIS: Osteoarthritis of bilateral shoulder PROCEDURE PERFORMED: Bilateral shoulder intraarticular steroid injection anterior approach under fluoroscopic guidance. ANESTHESIA: MAC. BLOOD LOSS: Minimal. COMPLICATIONS: None. DESCRIPTION OF PROCEDURE: History and physical of today was reviewed. Risks and benefits of the procedure were explained. The patient understood and agreed to proceed. Informed consent was obtained. IV inserted per routine protocol. The patient was taken to the operating room and placed in the supine position. The right shoulder area was prepped and draped in a sterile fashion using iodine x3. Under fluoroscopic guidance on AP view, the right shoulder joint was visualized. The skin and subcutaneous tissue was anesthetized with approximately 1 mL of 1% lidocaine using a 25- gauge regular needle at the anterior shoulder joint area. Under direct visualization with fluoroscopy on AP view, using a 22-gauge 3-1/2-inch spinal needle, the needle was advanced via the skin directed towards the intraarticular position at the supraspinatus level. Once the tip of the needle was at the vicinity of the shoulder joint, after negative aspiration for blood, positive aspiration for synovial fluid, a total of 1 mL of contrast was injected to confirm correct placement of the needle as well as anterior and posterior spread of the contrast at the shoulder joint. Cephalocaudal spread as well was visualized through the arthrogram. After confirmation on AP as well as oblique view and repeated negative aspiration for blood, a total of 4 mL of preservative- free 0.25% Marcaine with 40 mg of Depo-Medrol was injected easily. The needle was then removed intact, there is seem exec procedure was repeated on the left shoulder. The patient experienced no sign or symptoms of intravascular injection. The patient experienced no paresthesia. The procedure was completed without any apparent difficulty or any complications. The patient appeared to tolerate it well. Assessment and plan: This is a 58-year-old male with osteoarthritis of bilateral shoulder status post bilateral shoulder intra-articular steroid injection anterior approach under fluoroscopic guidance, patient will continue his current medications, patient will follow in approximately 2 weeks for reevaluation. Surgical Findings: 1 Complications Complications: No Admit VTE Documentation VTE Mechan Device Prophylaxis: None VTE Pharm Prophylaxis ordered?: No 05/02/24 1046 Cosigner Signature (if applicable): CC: Dr. Jj Eason MD; Dr. Sin Murphy MD Signed Normal [facility] CBC W/Diff, Automatedon 12-2 0-2023 Absolute Lymph 2.17 X10 3/uL Normal 0.83-4.51 [facility] Comment on above: Performed By: #### L 500.4050, L100.0100 ####[facility] [address] [place], [address] Absolute Neut 4.9 X10 3/uL Normal 2.0-7.7 [facility] Comment on above: Performed By: #### L 500.4050, L100.0100 ####[facility] [address] [place], [address] Basophils/100 WBC (Bld) 1.0 % Normal 0-1 [facility] Comment on above: Performed By: #### L 500.4050, L100.0100 ####[facility] [address] [place], [address] Eosinophils/100 WBC (Bld) 3.5 % Normal 0-5 [facility] Comment on above: Performed By: #### L 500.4050, L100.0100 ####[facility] [address] [place], [address] Erythrocyte distribution width (RBC) [Ratio] 12.8 % Normal 11.6-14.6 [facility] Comment on above: Performed By: #### L 500.4050, L100.0100 ####[facility] [address] [place], [address] Hematocrit (Bld) [Volume fraction] 44.9 % Normal 40-54 [facility] Comment on above: Performed By: #### L 500.4050, L100.0100 ####[facility] [address] [place], [address] Hemoglobin (Bld) [Mass/Vol] 14.3 g/dL Normal 13.0-16.5 [facility] Comment on above: Performed By: #### L 500.4050, L100.0100 ####[facility] [address] [place], [address] IG% 0.800 Normal 0.0-0.9 [facility] Comment on above: Result Comment: IG% - Immature Granulocytes (promyelocytes, myelocytes and metamyelocytes) > 1% indicates that a LEFT SHIFT is Present. Performed By: #### L 500.4050, L100.0100 ####[facility] [address] [place], [address] Lymphocytes/100 WBC (Bld) 26.1 % Normal 19-41 [facility] Comment on above: Performed By: #### L 500.4050, L100.0100 ####[facility] [address] [place], [address] MCH (RBC) [Entitic mass] 29.5 pg Normal 27.0-32.0 [facility] Comment on above: Performed By: #### L 500.4050, L100.0100 ####[facility] [address] [place], [address] MCHC (RBC) [Mass/Vol] 31.8 g/dL Low 32-[address] [facility] Comment on above: Performed By: #### L 500.4050, L100.0100 ####[facility] [address] [place], [address] MCV (RBC) [Entitic vol] 92.8 fL Normal 80-94 [facility] Comment on above: Performed By: #### L 500.4050, L100.0100 ####[facility] [address] [place], [address] Monocytes/100 WBC (Bld) 10.0 % Normal 0-10 [facility] Comment on above: Performed By: #### L 500.4050, L100.0100 ####[facility] [address] [place], [address] Neutrophils/100 WBC (Bld) 58.6 % Normal 47-70 [facility] Comment on above: Performed By: #### L 500.4050, L100.0100 ####[facility] [address] [place], [address] Nucleated RBC (Bld) [#/Vol] 0 10*3/uL Normal 0-5 [facility] Comment on above: Performed By: #### L 500.4050, L100.0100 ####[facility] [address] [place], [address] Platelet mean volume (Bld) [Entitic vol] 10.9 fL Normal 6.2-12.0 [facility] Comment on above: Performed By: #### L 500.4050, L100.0100 ####[facility] [address] [place], [address] Platelets (Bld) [#/Vol] 276 10*3/uL Normal 150-450 [facility] Comment on above: Performed By: #### L 500.4050, L100.0100 ####[facility] [address] [place], [address] RBC (Bld) [#/Vol] 4.84 10*6/uL Normal 4.6-6.2 [facility] Comment on above: Performed By: #### L 500.4050, L100.0100 ####[facility] [address] [place], [address] RDW SD 43.9 fl Normal 35.1-43.9 [facility] Comment on above: Performed By: #### L 500.4050, L100.0100 ####[facility] [address] [place], [address] WBC (Bld) [#/Vol] 8.3 10*3/uL Normal 4.4-11.0 [facility] Comment on above: Performed By: #### L 500.4050, L100.0100 ####[facility] [address] [place], [address] Comprehensive Metabolic Prof ilon 04-15-2024 Albumin [Mass/Vol] 3.8 g/dL Normal 3.2-5.0 [facility] Comment on above: Performed By: #### L 500.4050, L100.0100 ####[facility] [address] [place], [address] Albumin/Globulin [Mass ratio] 1.1 {ratio} Normal 0.9-2.4 [facility] Comment on above: Performed By: #### L 500.4050, L100.0100 ####[facility] [address] [place], [address] ALK P 74 U/L Normal 45-117 [facility] Comment on above: Performed By: #### L 500.4050, L100.0100 ####[facility] [address] [place], [address] ALT [Catalytic activity/Vol] 56 U/L Normal 16-61 [facility] Comment on above: Performed By: #### L 500.4050, L100.0100 ####[facility] [address] [place], [address] AST [Catalytic activity/Vol] 30 U/L Normal 15-37 [facility] Comment on above: Performed By: #### L 500.4050, L100.0100 ####[facility] [address] [place], [address] Bilirubin [Mass/Vol] 0.40 mg/dL Normal 0.20-1.00 [facility] Comment on above: Result Comment: For patients on eltrombopag therapy, use of Dimension Bath TBIL is not recommended. Performed By: #### L 500.4050, L100.0100 ####[facility] [address] [place], [address] BUN/CRE 18.0 RATIO Normal 10-20 [facility] Comment on above: Performed By: #### L 500.4050, L100.0100 ####[facility] [address] [place], [address] CA,Total 9.5 mg/dL Normal 8.5-10.1 [facility] Comment on above: Performed By: #### L 500.4050, L100.0100 ####[facility] [address] [place], [address] Chloride [Moles/Vol] 103 mmol/L Normal 98-107 [facility] Comment on above: Performed By: #### L 500.4050, L100.0100 ####[facility] [address] [place], [address] CO2 [Moles/Vol] 26.0 mmol/L Normal 21.0-32.0 [facility] Comment on above: Performed By: #### L 500.4050, L100.0100 ####[facility] [address] [place], [address] Creatinine [Mass/Vol] 0.94 mg/dL Normal 0.70-1.[address] [facility] Comment on above: Result Comment: The validity of the calculated GFR GFRAA in patients over 70 years has not been determined. Clinical correlation is essential. Performed By: #### L 500.4050, L100.0100 ####[facility] [address] [place], [address] EST GFR - AA 105 mL/min Normal >60 [facility] Comment on above: Result Comment: Afri can [place] GFR Calc Performed By: #### L 500.4050, L100.0100 ####[facility] [address] [place], [address] GAP 6 Normal 5-15 [facility] Comment on above: Performed By: #### L 500.4050, L100.0100 ####[facility] [address] [place], [address] GFR/1.73 sq M.predicted among non-blacks MDRD (S/P/Bld) [Vol rate/Area] 87 mL/min/{1.73_m2} Normal >60 [facility] Comment on above: Result Comment: Non- GFR Calc Performed By: #### L 500.4050, L100.0100 ####[facility] [address] [place], [address] Globulin (S) [Mass/Vol] 3.5 g/dL Normal 2.2-4.2 [facility] Comment on above: Performed By: #### L 500.4050, L100.0100 ####[facility] [address] [place], [address] Glucose [Mass/Vol] 95 mg/dL Normal 74-106 [facility] Comment on above: Performed By: #### L 500.4050, L100.0100 ####[facility] [address] [place], [address] Potassium [Moles/Vol] 4.4 mmol/L Normal 3.5-5.[address] [facility] Comment on above: Performed By: #### L 500.4050, L100.0100 ####[facility] [address] [place], [address] Sodium [Moles/Vol] 135 mmol/L Low 136-145 [facility] Comment on above: Performed By: #### L 500.4050, L100.0100 ####[facility] [facility] [address] [place], [address] T PROT 7.3 g/dL Normal 6.4-8.2 [facility] Comment on above: Performed By: #### L 500.4050, L100.0100 ####[facility] [address] [place], [address] Urea nitrogen [Mass/Vol] 17 mg/dL Normal 7-18 [facility] Comment on above: Performed By: #### L 500.4050, L100.0100 ####[facility] [address] [place], [address] Fluoro Guided Needle Placeme nton 03-14-2024 Fluoro Guided Needle Placement [facility] Imaging Services [address] [place] [address] Fluoro Guided Needle Placement MR#: [id number] Acct: [id number] Name: MELIZA EASTMAN Rep #: [id number] : 1965 M 58 From: Kevin Torres PCP: Dr. Jj Eason MD Status: [facility] Study: Fluoro Guided Needle Placement Date of Exam: 05/14/23 Exam# [id number] Ordering [place]: [place] [id number] PROCEDURE: Right hip injection DATE OF EXAMINATION: 03/14/2024 INDICATION: Male, 58 years old. Right hip injection Fluoroscopy time (if supplied): (2.6 seconds) minutes/seconds. Radiation dose: 1.35 mGy. Number of fluoroscopic images: One image was submitted. FINDINGS: Single view of the hip was obtained on a C-arm for hip injection. Image was obtained for documentation only. RAD/Fluoro Guided Needle Placement IMPRESSION: Intraprocedural exam as described above. Electronically Signed: Kevin Rene MD at 12:47 EST , CC: Dr. Jj Eason MD; Dr. Sin Murphy MD Trip Follower: Signed [facility] MR/POSTOP.ANE 03-14-2024 MR/POSTOP.[facility] Medical Records Department [address] [place] [address] Anesthesia Postop Eval I 03/14/24 1013 MR#: [id number] Acct: [id number] Name: MELIZA EASTMAN Rep #: [id number] : 1965 58 From: Daphne Mclean PCP: Dr. Jj Eason MD Status:[facility] Y Race: C Location: [place] [address] Anesthesia: Postop Eval I Current Vital Signs Temperature: 98.8 F Pulse Rate: 84 Blood Pressure: 110/87 Respiratory Rate: 20 Pulse Ox: 94 Assessment Airway patent: Yes Spontaneous unlabored respirations: Yes nausea: No Vomiting: No Anesthesia Complication: No Fluid Hydration Crystalloid volume administer (ml): 0 Total IV fluid infused: 0 Progress Note Anesthesia document: Postop Eval 1 completed: Yes 03/14/241013 Date Daphne Hdz Signature: Date CC: Signed [facility] MR/TASGYWVA5ce 03-14-2024 MR/POSTOPAN2 [facility] Medical Records Department [address] [place] [address] Anesthesia Postop Eval II 03/14/24 1026 MR#: [id number] Acct: [id number] Name: MELIZA EASTMAN Rep #: [id number] : 1965 58 From: Byron Tiwari MD PCP: Dr. Jj Eason MD Status:REG SDC Y Race: C Location: [place] [address] Anesthesia Postop Eval I Sum Postop Eval Completion status Anesthesia document: Postop Eval 1 completed: Yes Anesthesia Postop Eval I Summary Anesthesia Postop Eval I Summary: Anesthesia Postop Eval I: Assessment Summary Airway patent Yes 03/14/24 10:14 SYNOPTIC METEOROLOGIST.CSIR Spontaneous unlabored Yes 03/14/24 10:14 SYNOPTIC METEOROLOGIST.CSIR respirations Mental status nausea No 03/14/24 10:14 SYNOPTIC METEOROLOGIST.CSIR Vomiting No 03/14/24 10:14 SYNOPTIC METEOROLOGIST.CSIR Anesthesia Postop Eval I: Fluid Summary Crystalloid volume administer 0 03/14/24 10:14 SYNOPTIC METEOROLOGIST.CSIR (ml) Colloids volume administered ( ml) Blood Product volume administered (ml) Total IV fluid infused 0 03/14/24 10:14 SYNOPTIC METEOROLOGIST.CSIR Anesthesia Postop Eval I: Summary Notes Anesthesia Complication No 03/14/24 10:14 SYNOPTIC METEOROLOGIST.CSIR Anesthesia Complication Comment: Post-operative progress note Anesthesia: Postop Eval II Evaluation Mental status: Awake Pain Level: 0 nausea: No Vomiting: No 03/14/24 1027 Date Byron Tiwari MD Cosign Signature: Date CC: Signed Normal [facility] Operative Reporton 4 Operative Report [facility] Medical Records Department [address] [place] [address] Operative Report 03/14/24 1009 MR#: [id number] Acct: [id number] Name: MELIZA EASTMAN Rep #: [id number] : 1965 58 From: Sin Murphy MD PCP: Dr. Jj Eason MD Status:REG SDC Location: [place] [address]-1 Operative Report (Standard) Operative Information Surgery/Procedure Performed: Right hip intra-articular steroid injection under fluoroscopic guidance Surgeon: Sin Murphy Date of Procedure: 03/14/24 Procedure Start Time: Procedure Stop Time: : Pre-Operative Diagnosis: Osteoarthritis of the right hip Post-Operative Diagnosis: Osteoarthritis of the right hip Select all DRAINS/GRAFTS/IMPLANTS that apply: None Type of Anesthesia: Local MAC and MAC Estimated Blood Loss: < 1 cc Specimen collected: No Description of surgery: PREOPERATIVE DIAGNOSIS: Osteoarthritis of the right hip POSTOPERATIVE DIAGNOSIS: Osteoarthritis of the right hip PROCEDURE PERFORMED: Right hip intraarticular steroid injection under fluoroscopy guidance. ANESTHESIA: Local BLOOD LOSS: Minimal. COMPLICATIONS: None. DESCRIPTION OF PROCEDURE: History and physical of today was reviewed. Risks and benefits of the procedure were explained. The patient understood and agreed to proceed. Informed consent was obtained. IV inserted per routine protocol. The patient was taken to the operating room and placed in the supine position. The right hip area was prepped and draped in a sterile fashion using iodine x3. Under fluoroscopy guidance on AP view, the right hip joint was visualized. The skin and subcutaneous tissue was anesthetized with approximately 3 mL of 1% lidocaine using a 25-gauge regular needle approximately 3 cm cephalad to the right greater trochanter. Under direct visualization with fluoroscopy on an AP view, using a 22-gauge 5-inch spinal needle, the needle was advanced via the skin using the lateral approach. The tip of the needle was maneuvered and directed towards the superiormost aspect of the hip joint. Once the tip of the needle was at the vicinity of the joint, after negative aspiration for blood and positive aspiration of synovial fluid, a total of 1 mL of contrast was injected to confirm correct placement of the needle as well as halo spread around the hip joint. After repeated negative aspiration for blood and confirmation on AP as well as oblique view, a total of 10 mL of preservative-free 0.25% Marcaine with 80 mg of Depo-Medrol was injected easily. The needle was then removed intact. The patient experienced no sign or symptoms of intrathecal or intravascular injection. The patient experienced no paresthesia. The procedure was completed without any apparent difficulty or any complications. The patient appeared to tolerate it well. ASSESSMENT AND PLAN: This is a 58-year-old male with osteoarthritis of the right hip status post right hip intra- articular steroid injection under fluoroscopic guidance, patient will continue his current medications, patient will follow in approximately 2 weeks for reevaluation. Surgical Findings: see Supervisor Of Officials shearing shed hand: No Complications Complications: No Admit VTE Documentation VTE Present on Admission: No VTE Pharm Prophylaxis ordered?: No 03/14/24 1010 Cosigner Signature (if applicable): CC: Dr. Jj Eason MD; Dr. Sin Murphy MD Signed Normal [facility] Absolute lymphocyte countOrd ered By: Jj Eason on 08-13-2023 Lymphocytes Auto (Unsp spec) [#/Vol] 2.33 10*3/uL 0.83-4.51 [facility] Automated lymphocyte count a s percentage of total leukocytesOrdered By: Jj Eason on 08-13-2023 Lymphocytes/100 WBC Auto (Unsp spec) 28.2 % 19-41 [facility] Basophil percentageOrdered B y: Jj Eason on 08-13-2023 Basophils/100 WBC (Bld) 0.7 % 0-1 [facility] Bilirubin [Mass/Vol] 0.60 mg/dL 0.20-1.00 [facility] Comment on above: For patients on eltr ombopag therapy, use of Dimension Bath TBIL is not recommended. Chloride [Moles/Vol] 102 mmol/L 98-107 [facility] Eosinophils/100 WBC (Bld) 2.4 % 0-5 [facility] Glucose [Mass/Vol] 109 mg/dL 74-106 [facility] Comment on above: Fasting Glucose resu lt from 100 to 125 mg/dL suggests IMPAIRED HOMEOSTASIS per A.D.A. criteria. Hemoglobin (Bld) [Mass/Vol] 16.1 g/dL 13.0-16.5 [facility] Monocytes/100 WBC (Bld) 8.6 % 0-10 [facility] Neutrophils (Bld) [#/Vol] 4.9 10*3/uL 2.0-7.7 [facility] Neutrophils/100 WBC (Bld) 59.4 % 47-70 [facility] Potassium [Moles/Vol] 4.7 mmol/L 3.5-5.[address] [facility] Protein [Mass/Vol] 7.7 g/dL 6.4-8.2 [facility] Sodium [Moles/Vol] 136 mmol/L 136-145 [facility] WBC (Bld) [#/Vol] 8.3 10*3/uL 4.4-11.0 [facility] Determination of erythrocyte mean corpuscular volume (MCV)Ordered By: Jj Eason on 08-13-2023 MCV (RBC) [Entitic vol] 89.5 fL 80-94 [facility] Erythrocyte distribution wid th ratioOrdered By: Jj Eason on 08-13-2023 Erythrocyte distribution width (RBC) [Ratio] 14.2 % 11.6-14.6 [facility] Erythrocyte distribution wid th standard deviationOrdered By: Jj Eason on 08-13-2023 Erythrocyte distribution width (RBC) [Entitic vol] 46.3 fL 35.1-43.9 [facility] Hematocrit Auto (Bld) [Volum e fraction]Ordered By: Jj Eason on 08-13-2023 Hematocrit (Bld) [Volume fraction] 46.8 % 40-54 [facility] Immature granulocytes/100 WB C Auto (Bld)Ordered By: Jj Eason on 08-13-2023 Immature granulocytes/100 WBC (Bld) 0.700 % 0.0-0.9 [facility] Comment on above: IG% - Immature Granu locytes (promyelocytes, myelocytes and metamyelocytes) > 1% indicates that a LEFT SHIFT is Present. Laboratory - Chemistry and C hemistry - challengeOrdered By: Jj Eason on 08-13-2023 Albumin/Globulin [Mass ratio] 1.2 {ratio} 0.9-2.4 [facility] ALP [Catalytic activity/Vol] 73 U/L 45-117 [facility] ALT [Catalytic activity/Vol] 40 U/L 16-61 [facility] CO2 [Moles/Vol] 28.0 mmol/L 21.0-32.0 [facility] Globulin (S) [Mass/Vol] 3.5 g/dL 2.2-4.2 [facility] Urea nitrogen/Creatinine [Mass ratio] 21.5 mg/mg 10-20 [facility] Laboratory - Hematology and Cell countsOrdered By: Jj Eason on 08-13-2023 MCH (RBC) [Entitic mass] 30.8 pg 27.0-32.0 [facility] MCHC (RBC) [Mass/Vol] 34.4 g/dL 32-[address] [facility] Nucleated RBC/100 WBC (Bld) [Ratio] 0 % 0-5 [facility] Platelet mean volume (Bld) [Entitic vol] 11.2 fL 6.2-12.0 [facility] Platelets (Bld) [#/Vol] 282 10*3/uL 150-450 [facility] No Panel InformationOrdered By: Jj Eason on 08-13-2023 Estimated GFR (MDRD) Amer 101 mL/min >60 [facility] Comment on above: GFR Calc Estimated GFR (MDRD) Non-Af Amer 84 mL/min >60 [facility] Comment on above: Non- GFR Calc RBC Auto (Bld) [#/Vol]Ordere d By: Jj Eason on 08-13-2023 RBC (Bld) [#/Vol] 5.23 10*6/uL 4.6-6.2 [facility] Serum or plasma calcium halle urement (mass/volume)Ordered By: Jj Eason on 08-13-2023 Calcium [Mass/Vol] 9.4 mg/dL 8.5-10.1 [facility] Serum or plasma creatinine m easurement (mass/volume)Ordered By: Jj Eason on 08-13-2023 Creatinine [Mass/Vol] 0.98 mg/dL 0.70-1.[address] [facility] Comment on above: The validity of the calculated GFR & GFRAA in patients over 70 years has not been determined. Clinical correlation is essential. Serum or plasma thyroid stim ulating hormone (TSH) measurement (units/volume)Ordered By: Jj Eason on 08-13-2023 TSH Qn 1.35 uIU/mL 0.358-3.74 [facility] Serum or plasma urea nitroge n measurement (mass/volume)Ordered By: Jj Eason on 08-13-2023 Urea nitrogen [Mass/Vol] 21 mg/dL - [facility] Thin prep Papanicolaou smear with manual screeningOrdered By: Jj Eason on 08-13-2023 Thin prep Papanicolaou smear with manual screening 4.2 g/dL 3.2-5.0 [facility] Thin prep Papanicolaou smear with manual screening 26 U/L 15-37 [facility] Thin prep Papanicolaou smear with manual screening 6 5-15 [facility] Absolute lymphocyte countOrd ered By: Jj Eason on 03-12-2023 Lymphocytes Auto (Unsp spec) [#/Vol] 1.90 10*3/uL 0.83-4.51 [facility] Basophil percentageOrdered B y: Jj Eason on 03-12-2023 Basophils/100 WBC (Bld) 1.0 % 0-1 [facility] Bilirubin [Mass/Vol] 0.20 mg/dL 0.20-1.00 [facility] Comment on above: For patients on eltr ombopag therapy, use of Dimension Bath TBIL is not recommended. Chloride [Moles/Vol] 108 mmol/L 98-107 [facility] Eosinophils/100 WBC (Bld) 4.0 % 0-5 [facility] Glucose [Mass/Vol] 97 mg/dL 74-106 [facility] Neutrophils (Bld) [#/Vol] 5.7 10*3/uL 2.0-7.7 [facility] Neutrophils/100 WBC (Bld) 65.2 % 47-70 [facility] Potassium [Moles/Vol] 4.3 mmol/L 3.5-5.[address] [facility] Protein [Mass/Vol] 6.5 g/dL 6.4-8.2 [facility] Sodium [Moles/Vol] 141 mmol/L 136-145 [facility] WBC (Bld) [#/Vol] 8.8 10*3/uL 4.4-11.0 [facility] Blood erythrocytes count (nu mber/volume)Ordered By: Jj Eason on 03-12-2023 RBC (Bld) [#/Vol] 3.69 10*6/uL 4.6-6.2 [facility] Blood hemoglobin measurement (mass/volume)Ordered By: Jj Eason on 03-12-2023 Hemoglobin (Bld) [Mass/Vol] 11.0 g/dL 13.0-16.5 [facility] Blood lymphocytes/100 leukoc ytesOrdered By: Jj Eason on 03-12-2023 Lymphocytes/100 WBC (Bld) 21.6 % 19-41 [facility] Blood monocytes/100 leukocyt esOrdered By: Jj Eason on 03-12-2023 Monocytes/100 WBC (Bld) 7.7 % 0-10 [facility] Blood platelet mean volumeOr dered By: Jj Eason on 03-12-2023 Platelet mean volume (Bld) [Entitic vol] 11.5 fL 6.2-12.0 [facility] Determination of erythrocyte mean corpuscular volume (MCV)Ordered By: Jj Eason on 03-12-2023 MCV (RBC) [Entitic vol] 97.6 fL 80-94 [facility] Hematocrit Auto (Bld) [Volum e fraction]Ordered By: Jj Eason on 03-12-2023 Hematocrit (Bld) [Volume fraction] 36.0 % 40-54 [facility] Laboratory - Chemistry and C hemistry - challengeOrdered By: Jj Eason on 03-12-2023 ALP [Catalytic activity/Vol] 84 U/L 45-117 [facility] ALT [Catalytic activity/Vol] 34 U/L 16-61 [facility] CO2 [Moles/Vol] 27.0 mmol/L 21.0-32.0 [facility] Globulin (S) [Mass/Vol] 3.2 g/dL 2.2-4.2 [facility] Natriuretic peptide B (Bld) [Mass/Vol] 88.1 pg/mL 0-100 [facility] Urea nitrogen/Creatinine [Mass ratio] 10.5 mg/mg 10-20 [facility] Laboratory - Hematology and Cell countsOrdered By: Jj Eason on 03-12-2023 Erythrocyte distribution width (RBC) [Entitic vol] 55.1 fL 35.1-43.9 [facility] Erythrocyte distribution width (RBC) [Ratio] 15.2 % 11.6-14.6 [facility] Immature granulocytes/100 WBC (Bld) 0.500 % 0.0-0.9 [facility] Comment on above: IG% - Immature Granu locytes (promyelocytes, myelocytes and metamyelocytes) > 1% indicates that a LEFT SHIFT is Present. MCH (RBC) [Entitic mass] 29.8 pg 27.0-32.0 [facility] Nucleated RBC/100 WBC (Bld) [Ratio] 0 % 0-5 [facility] Auto (RBC) [Mass/Vol]Or dered By: Jj Eason on 03-12-2023 MCHC (RBC) [Mass/Vol] 30.6 g/dL 32-[address] [facility] No Panel InformationOrdered By: Jj Eason on 03-12-2023 Estimated GFR (MDRD) Amer 105 mL/min >60 [facility] Comment on above: GFR Calc Estimated GFR (MDRD) Non-Af Amer 87 mL/min >60 [facility] Comment on above: Non- GFR Calc Thyroid Stimulating Hormone (TSH) 1.51 uIU/mL 0.358-3.74 [facility] Platelets bldOrdered By: Yareli Eason on 03-12-2023 Platelets (Bld) [#/Vol] 289 10*3/uL 150-450 [facility] Serum or plasma albumin halle urement (mass/volume)Ordered By: Jj Eason on 03-12-2023 Albumin [Mass/Vol] 3.3 g/dL 3.2-5.0 [facility] Serum or plasma albumin/glob ulin mass ratioOrdered By: Jj Eason on 03-12-2023 Albumin/Globulin [Mass ratio] 1.0 {ratio} 0.9-2.4 [facility] Serum or plasma calcium halle urement (mass/volume)Ordered By: Jj Eason on 03-12-2023 Calcium [Mass/Vol] 8.8 mg/dL 8.5-10.1 [facility] Serum or plasma creatinine m easurement (mass/volume)Ordered By: Jj Eason on 03-12-2023 Creatinine [Mass/Vol] 0.95 mg/dL 0.70-1.[address] [facility] Comment on above: The validity of the calculated GFR & GFRAA in patients over 70 years has not been determined. Clinical correlation is essential. Serum or plasma urea nitroge n measurement (mass/volume)Ordered By: Jj Eason on 03-12-2023 Urea nitrogen [Mass/Vol] 10 mg/dL 7-18 [facility] Thin prep Papanicolaou smear with manual screeningOrdered By: Jj Eason on 03-12-2023 Thin prep Papanicolaou smear with manual screening 18 U/L 15-37 [facility] Thin prep Papanicolaou smear with manual screening 6 5-15 [facility] Renal function 2000 panelon 03-09-2023 Albumin BCP dye [Mass/Vol] 3.9 g/dL Normal 3.4-5.0 [facility] Comment on above: Order Comment: [facility] [address] [place], [place] [address] [phone] Performed By: #### 2 4362-6 #### SHAD TORRES ([id number]) [facility] ([facility]) [address] [place] [address] Anion gap [Moles/Vol] 12 mmol/L Normal 10-20 [facility] Comment on above: Order Comment: [facility] [address] [place], [place] [address] [phone] Performed By: #### 2 4362-6 #### SHAD TORRES ([id number]) [facility] ([facility]) [facility] [place] [address] Calcium [Mass/Vol] 9.1 mg/dL Normal 8.6-10.3 [facility] Comment on above: Order Comment: [facility] [address] [place], [place] [address] [phone] Performed By: #### 2 4362-6 #### SHAD TORRES ([id number]) [facility] ([facility]) [address] [place] [address] Chloride [Moles/Vol] 105 mmol/L Normal 98-107 [facility] Comment on above: Order Comment: [facility] [address] [place], [place] [address] [phone] Performed By: #### 2 4362-6 #### SHAD TORRES ([id number]) [facility] ([facility]) [address] [place] [address] CO2 [Moles/Vol] 24 mmol/L Normal 21-32 [facility] Comment on above: Order Comment: [facility] [address] [place], [place] [address] [phone] Performed By: #### 2 4362-6 #### SHAD TORRES ([id number]) [facility] ([facility]) [address] [place] [address] Creatinine [Mass/Vol] 0.90 mg/dL Normal 0.50-1.30 [facility] Comment on above: Order Comment: [facility] [address] [place], [place] [address] [phone] Performed By: #### 2 4362-6 #### SHAD TORRES ([id number]) [facility] ([facility]) [address] [place] [address] GFR/1.73 sq M.predicted MDRD (S/P/Bld) [Vol rate/Area] mL/min/{1.73_m2} Normal >60 [facility] Comment on above: Order Comment: [facility] [address] [place], [place] [address] [phone] Result Comment: Calc ulations of estimated GFR are performed using the 2020 CKD-EPI Study Refit equation without the race variable for the IDMS-Traceable creatinine methods. https://jasn.asnjournals.org/content/early//ASN.615749 3098 Performed By: #### 2 4362-6 #### SHAD TORRES ([id number]) [facility] ([facility]) [address] [place] [address] Glucose [Mass/Vol] 102 mg/dL High 74-99 [facility] Comment on above: Order Comment: [facility] [address] [place], [place] [address] [id number] Performed By: #### 2 4362-6 #### SHAD TORRES ([id number]) [facility] ([facility]) [facility] [place] [address] Phosphate [Mass/Vol] 3.8 mg/dL Normal 2.5-4.9 [facility] Comment on above: Order Comment: [facility] [address] [place], [place] [address] [phone] Result Comment: The performance characteristics of phosphorus testing in heparinized plasma have been validated by the individual laboratory site where testing is performed. Testing on heparinized plasma is not approved by the FDA; however, such approval is not necessary. Performed By: #### 2 4362-6 #### SHAD TORRES ([id number]) [facility] ([facility]) [address] [place] [address] Potassium [Moles/Vol] 4.1 mmol/L Normal 3.5-5.3 [facility] Comment on above: Order Comment: [facility] [address] [place], [place] [address] [id number] Performed By: #### 2 4362-6 #### SHAD TORRES ([id number]) [facility] ([facility]) [address] [place] [address] Sodium [Moles/Vol] 137 mmol/L Normal 136-145 [facility] Comment on above: Order Comment: [facility] [address] [place], [place] [address] [id number] Performed By: #### 2 4362-6 #### SHAD TORRES ([id number]) [facility] ([facility]) [address] [place] [address] Urea nitrogen [Mass/Vol] 11 mg/dL Normal 6-23 [facility] Comment on above: Order Comment: [facility] [address] [place], [place] [address] [phone] Performed By: #### 2 4362-6 #### SHAD BRIAN ([id number]) [facility] ([facility]) [address] [place] [address] Absolute lymphocyte countOrd ered By: Malathi Victor on 03-07-2023 Lymphocytes Auto (Unsp spec) [#/Vol] 2.54 10*3/uL 0.83-4.51 [facility] Basophil percentageOrdered B y: Malathi Victor on 03-07-2023 Basophils/100 WBC (Bld) 0.6 % 0-1 [facility] Chloride [Moles/Vol] 111 mmol/L 98-107 [facility] Eosinophils/100 WBC (Bld) 6.0 % 0-5 [facility] Glucose [Mass/Vol] 98 mg/dL 74-106 [facility] Neutrophils (Bld) [#/Vol] 3.9 10*3/uL 2.0-7.7 [facility] Neutrophils/100 WBC (Bld) 50.8 % 47-70 [facility] Potassium [Moles/Vol] 3.6 mmol/L 3.5-5.[address] [facility] Comment on above: Slight Hemolysis, Re sult may be falsely increased. Sodium [Moles/Vol] 140 mmol/L 136-145 [facility] WBC (Bld) [#/Vol] 7.7 10*3/uL 4.4-11.0 [facility] Blood erythrocytes count (nu mber/volume)Ordered By: Malathi Victor on 03-07-2023 RBC (Bld) [#/Vol] 4.08 10*6/uL 4.6-6.2 [facility] Blood hemoglobin measurement (mass/volume)Ordered By: Malathi Victor on 03-07-2023 Hemoglobin (Bld) [Mass/Vol] 12.1 g/dL 13.0-16.5 [facility] Blood lymphocytes/100 leukoc ytesOrdered By: Malathi Victor on 03-07-2023 Lymphocytes/100 WBC (Bld) 33.0 % 19-41 [facility] Blood monocytes/100 leukocyt esOrdered By: Malathi Victor on 03-07-2023 Monocytes/100 WBC (Bld) 9.1 % 0-10 [facility] Blood platelet mean volumeOr dered By: Malathi Victor on 03-07-2023 Platelet mean volume (Bld) [Entitic vol] 11.4 fL 6.2-12.0 [facility] Determination of erythrocyte mean corpuscular volume (MCV)Ordered By: Malathi Vicotr on 03-07-2023 MCV (RBC) [Entitic vol] 95.3 fL 80-94 [facility] Hematocrit Auto (Bld) [Volum e fraction]Ordered By: Malathi Victor on 03-07-2023 Hematocrit (Bld) [Volume fraction] 38.9 % 40-54 [facility] Laboratory - Chemistry and C hemistry - challengeOrdered By: Malathi Victor on 03-07-2023 CO2 [Moles/Vol] 25.0 mmol/L 21.0-32.0 [facility] Urea nitrogen/Creatinine [Mass ratio] 7.3 mg/mg 10-20 [facility] - Hematology and Cell countsOrdered By: Malathi Victor on 03-07-2023 Erythrocyte distribution width (RBC) [Entitic vol] 52.2 fL 35.1-43.9 [facility] Erythrocyte distribution width (RBC) [Ratio] 14.8 % 11.6-14.6 [facility] Immature granulocytes/100 WBC (Bld) 0.500 % 0.0-0.9 [facility] Comment on above: IG% - Immature Granu locytes (promyelocytes, myelocytes and metamyelocytes) > 1% indicates that a LEFT SHIFT is Present. MCH (RBC) [Entitic mass] 29.7 pg 27.0-32.0 [facility] Nucleated RBC/100 WBC (Bld) [Ratio] 0 % 0-5 [facility] MCHC Auto (RBC) [Mass/Vol]Or dered By: Malathi Victor on 03-07-2023 MCHC (RBC) [Mass/Vol] 31.1 g/dL 32-[address] [facility] No Panel InformationOrdered By: Malathi Victor on 03-07-2023 Estimated Creatinine Clearance Calc 102.63 ml/min [facility] Estimated GFR (MDRD) Amer 124 mL/min >60 [facility] Comment on above: GFR Calc Estimated GFR (MDRD) Non-Af Amer 102 mL/min >60 [facility] Comment on above: Non- GFR Calc Platelets bldOrdered By: Charlene Victor on 03-07-2023 Platelets (Bld) [#/Vol] 283 10*3/uL 150-450 [facility] Serum or plasma calcium halle urement (mass/volume)Ordered By: Malathi Victor on 03-07-2023 Calcium [Mass/Vol] 8.8 mg/dL 8.5-10.1 [facility] Serum or plasma creatinine m easurement (mass/volume)Ordered By: Malathi Victor on 03-07-2023 Creatinine [Mass/Vol] 0.82 mg/dL 0.70-1.[address] [facility] Comment on above: The validity of the calculated GFR & GFRAA in patients over 70 years has not been determined. Clinical correlation is essential. Serum or plasma urea nitroge n measurement (mass/volume)Ordered By: Malathi Victor on 03-07-2023 Urea nitrogen [Mass/Vol] 6 mg/dL 7-18 [facility] Thin prep Papanicolaou smear with manual screeningOrdered By: Malathi Victor on 03-07-2023 Thin prep Papanicolaou smear with manual screening 4 5-15 [facility] Basophil percentageOrdered B y: Dara Salamanca on 03-06-2023 Bilirubin [Mass/Vol] 0.40 mg/dL 0.20-1.00 [facility] Comment on above: For patients on eltr ombopag therapy, use of Dimension [place] TBIL is not recommended. Cholesterol [Mass/Vol] 168 mg/dL <200 [facility] Comment on above: <200 mg/dL Desirable 200-240 mg/dL Borderline >240 mg/dL High Risk Protein [Mass/Vol] 6.0 g/dL 6.4-8.2 [facility] Triglyceride [Mass/Vol] 155 mg/dL <199 [facility] Comment on above: The drugs N-Acetylcy steine and Metamizole may falsely depress this assay.Serum Triglycerides Reference Interval Normal <150 mg/dL Borderline high 150 - 199 mg/dL High 200 - 499 mg/dL Very High > or = 500 mg/dL CT BRAIN WO IVCONon 03-06-[address] BRAIN WO IVCON * * *Final Report* * * DATE OF EXAM: Mar 05 2023 10:39PM [facility]DC 0504 - CT BRAIN WO IVCON / PROCEDURE REASON: Mental status change, unknown cause * * * * Physician Interpretation * * * * EXAMINATION: CT BRAIN WO IVCON CLINICAL HISTORY: Mental status change, unknown cause TECHNIQUE: CT data of the head was obtained without contrast. COMPARISON: None. RESULT: Acute change/hemorrhage: No evidence of large territory acute infarction or acute intracranial hemorrhage. Parenchyma: Patchy foci of low attenuation coefficient are present within the supratentorial white matter which is a nonspecific finding but likely represents moderate microvascular ischemia. Symmetric bilateral cerebellar hemispheric calcification. There is only minimal punctate basal ganglia calcification. Ventricles/Extra-axial spaces: Ventricular enlargement concordant with the degree of parenchymal volume loss. No evidence of extra-axial mass lesion or fluid collection. Mass effect: No significant mass effect. Other: The calvarium is intact. The visualized portions of the paranasal sinuses and mastoid air cells are clear. No acute abnormality of the visualized orbits. IMPRESSION: No evidence of large territory acute infarction or acute intracranial hemorrhage. Patchy nonspecific white matter disease most commonly seen in the setting of microvascular ischemic disease. Prominent symmetric bilateral cerebellar calcifications with only minimal punctate basal ganglia calcification. The pattern is nonspecific but can be seen and endocrine disorders. The appearance is atypical for normal physiologic calcification. Trip Follower: [facility] Transcribe Date/Time: Mar 05 2023 10:57P Dictated by : ANEUDY CALVO MD This examination was interpreted and the report reviewed and electronically signed by: ANEUDY CALVO MD on Mar 05 2023 11:05PM EST [id number] Normal [facility] HIGH SENSITIVITY TROPONIN T (SECOND)on 03-06-2023 Troponin T.cardiac High sensitivity method [Mass/Vol] 68 ng/L High <12 [facility] Comment on above: Order Comment: Speci men Type: BLOOD SPECIMEN Ordering Facility: [facility] Address: [address], [place] [address] Result Comment: When assessing risk for acute coronary syndromes: In patients undergoing blood draw greater than or equal to 2 hours from symptom onset, with history of very low to moderate risk and non-ischemic ECG, an initial hs-Troponin T less than 12 ng/L AND a 1 hour delta hs-Troponin T less than 3 ng/L should be considered very low risk for 30 day MACE. Performed By: #### L [id number] #### [facility] CLIA [id number] [address] [place] [address] [place] [facility] HIGH SENSITIVITY TROPONIN T (THIRD) 3 HRS AFTER INITIALon 03-06-2023 Troponin T.cardiac High sensitivity method [Mass/Vol] 61 ng/L High <12 [facility] Comment on above: Order Comment: Speci men Type: BLOOD SPECIMEN Ordering Facility: [facility] Address: [address] [place] [id number] Result Comment: When assessing risk for acute coronary syndromes: In patients undergoing blood draw greater than or equal to 2 hours from symptom onset, with history of very low to moderate risk and non-ischemic ECG, an initial hs-Troponin T less than 12 ng/L AND a 1 hour delta hs-Troponin T less than 3 ng/L should be considered very low risk for 30 day MACE. Performed By: #### L [id number] #### [facility] CLIA [id number] [address] [place] [address] [place] [facility] Laboratory - Chemistry and C hemistry - challengeOrdered By: Malathi Victor on 03-06-2023 Natriuretic peptide B (Bld) [Mass/Vol] 144.8 pg/mL 0-100 [facility] Magnesium [Mass/Vol] 2.3 mg/dL 1.6-2.6 [facility] Laboratory - Chemistry and C hemistry - challengeOrdered By: Dara Salamanca on 03-06-2023 ALP [Catalytic activity/Vol] 77 U/L 45-117 [facility] ALT [Catalytic activity/Vol] 21 U/L 16-61 [facility] Globulin (S) [Mass/Vol] 2.9 g/dL 2.2-4.2 [facility] No Panel InformationOrdered By: Malathi Victor on 03-06-[address] [place] Level 0.40 mmol/L 0.60-1.20 [facility] Serum or plasma albumin halle urement (mass/volume)Ordered By: Dara Salamanca on 03-06-2023 Albumin [Mass/Vol] 3.1 g/dL 3.2-5.0 [facility] Serum or plasma albumin/glob ulin mass ratioOrdered By: Dara Salamanca on 03-06-2023 Albumin/Globulin [Mass ratio] 1.1 {ratio} 0.9-2.4 [facility] Serum or plasma cholesterol in HDL measurement (mass/volume)Ordered By: Dara Salamanca on 03-06-2023 Cholesterol in HDL [Mass/Vol] 28 mg/dL >40 [facility] Comment on above: The drugs N-Acetylcy steine and Metamizole may falsely depress this assay. Reference Range HDL <40 mg/dL Low HDL Cholesterol HDL >or= 60 mg/dL High HDL Cholesterol Serum or plasma cholesterol in VLDL measurement (mass/volume)Ordered By: Dara Salamanca on 03-06-2023 Cholesterol in VLDL [Mass/Vol] 31 mg/dL 5-40 [facility] Serum or plasma low density lipoprotein (LDL) cholesterol measurement (mass/volume)Ordered By: Dara Salamanca on 03-06-2023 Cholesterol in LDL [Mass/Vol] 109 mg/dL 0-130 [facility] Thin prep Papanicolaou smear with manual screeningOrdered By: Dara Salamanca on 03-06-2023 Thin prep Papanicolaou smear with manual screening 15 U/L 15-37 [facility] CBC W Auto Differential pane l (Bld)on 03-05-2023 Basophils (Bld) [#/Vol] 10*3/uL Normal <0.11 [facility] Comment on above: Order Comment: Speci men Type: BLOOD SPECIMENOrdering Facility: [facility] Address: [address] [place] [address] Performed By: #### 5 7021-8 ####[facility] [place] LABCLIA [id number] [place] [address] [place] Basophils/100 WBC (Bld) 0.2 % Normal [facility] Comment on above: Order Comment: Speci men Type: BLOOD SPECIMENOrdering Facility: [facility] Address: [address] [place] [address] Performed By: #### 5 7021-8 ####[facility]CL[facility] [id number] [place] [address] [place] Differential cell count method Nom (Bld) Auto Normal [facility] Comment on above: Order Comment: Speci men Type: BLOOD SPECIMENOrdering Facility: [facility] Address: [address] [place] [address] Performed By: #### 5 7021-8 ####[facility] [place] LABCLIA [id number] [place] [address] [place] Eosinophils (Bld) [#/Vol] 0.41 10*3/uL Normal <0.46 [facility] Comment on above: Order Comment: Speci men Type: BLOOD SPECIMENOrdering Facility: [facility] Address: [address] [place] [address] Performed By: #### 5 7021-8 ####[facility] [place] LABCLIA [id number] [place] [address] [facility] [place] Eosinophils/100 WBC (Bld) 4.5 % Normal [facility] Comment on above: Order Comment: Speci men Type: BLOOD SPECIMENOrdering Facility: [facility] Address: [address] [place] [address] Performed By: #### 5 7021-8 ####[facility] [place] LABCLIA [id number] [place] [address] [place] Erythrocyte distribution width (RBC) [Ratio] 14.7 % Normal 11.5-15.0 [facility] Comment on above: Order Comment: Speci men Type: BLOOD SPECIMENOrdering Facility: [facility] Address: [address] [place] [address] Performed By: #### 5 7021-8 ####[facility] [place] LABCLIA [id number] [place] [address] [place] Hematocrit (Bld) [Volume fraction] 37.3 % Low 39.0-51.0 [facility] Comment on above: Order Comment: Speci men Type: BLOOD SPECIMENOrdering Facility: [facility] Address: [address] [place] [address] Performed By: #### 5 7021-8 ####[facility] [place] [facility]CLIA [id number] [place] [address] [place] Hemoglobin (Bld) [Mass/Vol] 11.9 g/dL Low 13.0-17.0 [facility] Comment on above: Order Comment: Speci men Type: BLOOD SPECIMENOrdering Facility: [facility] Address: [address] [place] [address] Performed By: #### 5 7021-8 ####[facility] [place] LABCLIA [id number] [place] [address] [place] Immature granulocytes (Bld) [#/Vol] 0.04 10*3/uL Normal <0.10 [facility] Comment on above: Order Comment: Speci men Type: BLOOD SPECIMENOrdering Facility: [facility] Address: [address] [place] [address] Performed By: #### 5 7021-8 ####[facility] [place] LABCLIA [id number] [address] [place] Immature granulocytes/100 WBC (Bld) 0.4 % Normal [facility] Comment on above: Order Comment: Speci men Type: BLOOD SPECIMENOrdering Facility: [facility] Address: [address] [place] [address] Performed By: #### 5 7021-8 ####[facility] [place] LABCLIA [id number] [place] [address] [place] Lymphocytes (Bld) [#/Vol] 1.97 10*3/uL Normal 1.00-4.00 [facility] Comment on above: Order Comment: Speci men Type: BLOOD SPECIMENOrdering Facility: [facility] Address: [address] [place] [address] Performed By: #### 5 7021-8 ####[facility] [place] LABCLIA [id number] [place] [id number] [facility] Lymphocytes/100 WBC (Bld) 21.8 % Normal [facility] Comment on above: Order Comment: Speci men Type: BLOOD SPECIMENOrdering Facility: [facility] Address: [address] [place] [address] Performed By: #### 5 7021-8 ####[facility] [place] LABCLIA [id number] [address] MCH (RBC) [Entitic mass] 29.9 pg Normal 26.0-34.0 [facility] Comment on above: Order Comment: Speci men Type: BLOOD SPECIMENOrdering Facility: [facility] Address: [address] [place] [address] Performed By: #### 5 7021-8 ####[facility] [place] LABCLIA [id number] [place] [id number] [place] [facility] MCHC (RBC) [Mass/Vol] 31.9 g/dL Normal 30.5-36.0 [facility] Comment on above: Order Comment: Speci men Type: BLOOD SPECIMENOrdering Facility: [facility] Address: [address] [place] [address] Performed By: #### 5 7021-8 ####[facility] LABCLIA [id number] [address] [place] MCV (RBC) [Entitic vol] 93.7 fL Normal 80.0-100.0 [facility] Comment on above: Order Comment: Speci men Type: BLOOD SPECIMENOrdering Facility: [facility] Address: [address] [place] [address] Performed By: #### 5 7021-8 ####[facility]CLIA [id number] [address] Monocytes (Bld) [#/Vol] 0.97 10*3/uL High <0.87 [facility] Comment on above: Order Comment: Speci men Type: BLOOD SPECIMENOrdering Facility: [facility] Address: [address] [place] [address] Performed By: #### 5 7021-8 ####[facility]CLIA [id number] [address] Monocytes/100 WBC (Bld) 10.7 % Normal [facility] Comment on above: Order Comment: Speci men Type: BLOOD SPECIMENOrdering Facility: [facility] Address: [address] [place] [address] Performed By: #### 5 7021-8 ####[facility] [place] LABCLIA [id number] [place] [address] [place] Neutrophils (Bld) [#/Vol] 5.62 10*3/uL Normal 1.45-7.50 [facility] Comment on above: Order Comment: Speci men Type: BLOOD SPECIMENOrdering Facility: [facility] Address: [address] [place] [address] Performed By: #### 5 7021-8 ####[facility] [place] LABCLIA [id number] [place] [address] [place] Neutrophils/100 WBC (Bld) 62.4 % Normal [facility] Comment on above: Order Comment: Speci men Type: BLOOD SPECIMENOrdering Facility: [facility] Address: [address] [place] [address] Performed By: #### 5 7021-8 ####[facility] [place] LABCLIA [id number] [place] [address] [place] Nucleated RBC (Bld) [#/Vol] Normal [facility] Comment on above: Order Comment: Speci men Type: BLOOD SPECIMENOrdering Facility: [facility] Address: [address] [place] [address] Performed By: #### 5 7021-8 ####[facility] [place] LABCLIA [id number] [place] [address] [place] Nucleated RBC/100 WBC (Bld) [Ratio] Normal [facility] Comment on above: Order Comment: Speci men Type: BLOOD SPECIMENOrdering Facility: [facility] Address: [address] [place] [address] Performed By: #### 5 7021-8 ####[facility] [place] LABCLIA [id number] [place] [address] [place] Platelet mean volume (Bld) [Entitic vol] 11.3 fL Normal 9.0-12.7 [facility] Comment on above: Order Comment: Speci men Type: BLOOD SPECIMENOrdering Facility: [facility] Address: [address] [place] [address] Performed By: #### 5 7021-8 ####[facility] [place] LABCLIA [id number] [place] [address] [place] Platelets (Bld) [#/Vol] 289 10*3/uL Normal 150-400 [facility] Comment on above: Order Comment: Speci men Type: BLOOD SPECIMENOrdering Facility: [facility] Address: [address] [place] [address] Performed By: #### 5 7021-8 ####[facility]CLIA [id number] [place] [address] [place] RBC (Bld) [#/Vol] 3.98 10*6/uL Low 4.20-6.00 [facility] Comment on above: Order Comment: Speci men Type: BLOOD SPECIMENOrdering Facility: [facility] Address: [address] [place] [address] Performed By: #### 5 7021-8 ####[facility]CLIA [id number] [place] [address] [place] WBC (Bld) [#/Vol] 9.03 10*3/uL Normal 3.70-11.00 [facility] Comment on above: Order Comment: Speci men Type: BLOOD SPECIMENOrdering Facility: [facility] Address: [address] [place] [address] Performed By: #### 5 7021-8 ####[facility] [place] LABCLIA [id number] [place] [address] [facility] Comprehensive metabolic 2000 panelon 03-05-2023 Albumin [Mass/Vol] 3.9 g/dL Normal 3.9-4.9 [facility] Comment on above: Order Comment: Speci men Type: BLOOD SPECIMEN Ordering Facility: [facility] Address: [address] [place] [address] Performed By: #### 2 4323-8, 3016-3, 22360-1, 3040-3 #### [facility] [place] [facility] CLIA [id number] [address] [place] [address] [place] ALP [Catalytic activity/Vol] 87 U/L Normal 38-113 [facility] Comment on above: Order Comment: Speci men Type: BLOOD SPECIMEN Ordering Facility: [facility] Address: [address] [place] [address] Performed By: #### 2 4323-8, 3016-3, 05691-6, 3040-3 #### [facility] [place] [facility] CLIA [id number] [address] [place] [address] [place] ALT With P-5'-P [Catalytic activity/Vol] 19 U/L Normal 10-54 [facility] Comment on above: Order Comment: Speci men Type: BLOOD SPECIMEN Ordering Facility: [facility] Address: [address] [place] [address] Performed By: #### 2 4323-8, 3016-3, 48277-2, 3040-3 #### [facility] [place] [facility] CLIA [id number] [address] [place] [address] [place] Anion gap [Moles/Vol] 14 mmol/L Normal 9-18 [facility] Comment on above: Order Comment: Speci men Type: BLOOD SPECIMEN Ordering Facility: [facility] Address: [address] [place] [address] Performed By: #### 2 4323-8, 3016-3, 31165-3, 3040-3 #### [facility] [place] [facility] CLIA [id number] [address] [place] [address] [place] AST With P-5'-P [Catalytic activity/Vol] 25 U/L Normal 14-40 [facility] Comment on above: Order Comment: Speci men Type: BLOOD SPECIMEN Ordering Facility: [facility] Address: [address] [place] [address] Performed By: #### 2 4323-8, 3016-3, 18033-9, 3040-3 #### [facility] [place] [facility] CLIA [id number] [address] [place] [address] [place] Bilirubin [Mass/Vol] 0.4 mg/dL Normal 0.2-1.3 [facility] Comment on above: Order Comment: Speci men Type: BLOOD SPECIMEN Ordering Facility: [facility] Address: [address] [place] [address] Performed By: #### 2 4323-8, 3016-3, 98996-9, 3040-3 #### [facility] [place] [facility] CLIA [id number] [address] [place] [address] [place] Calcium [Mass/Vol] 9.3 mg/dL Normal 8.5-10.2 [facility] Comment on above: Order Comment: Speci men Type: BLOOD SPECIMEN Ordering Facility: [facility] Address: [address] [place] [address] Performed By: #### 2 4323-8, 3016-3, 58447-4, 3040-3 #### [facility] [place] [facility] CLIA [id number] [address] [place] [address] [place] Chloride [Moles/Vol] 103 mmol/L Normal 97-105 [facility] Comment on above: Order Comment: Speci men Type: BLOOD SPECIMEN Ordering Facility: [facility] Address: [address] [place] [address] Performed By: #### 2 4323-8, 3016-3, 18417-5, 3040-3 #### [facility] [place] [facility] CLIA [id number] [address] [place] [address] [place] CO2 [Moles/Vol] 23 mmol/L Normal 22-30 [facility] Comment on above: Order Comment: Speci men Type: BLOOD SPECIMEN Ordering Facility: [facility] Address: [address] [place] [address] Performed By: #### 2 4323-8, 3016-3, 87721-6, 3040-3 #### [facility] CLIA [id number] [address] [place] [address] [place] Creatinine [Mass/Vol] 0.95 mg/dL Normal 0.73-1.22 [facility] Comment on above: Order Comment: Reza reyes Type: BLOOD SPECIMEN Ordering Facility: [facility] Address: [address] [place] [address] Performed By: #### 2 4323-8, 3016-3, 10802-7, 3040-3 #### [facility] CLIA [id number] [address] [place] [address] [place] [facility] Creatinine and Glomerular filtration rate.predicted panel (S/P/Bld) 93 mL/min/1.73m??? Normal >=60 [facility] Comment on above: Order Comment: Reza reyes Type: BLOOD SPECIMEN Ordering Facility: [facility] Address: [address] [place] [address] Result Comment: Sonja mated Glomerular Filtration Rate (eGFR) is calculated using the 2020 CKD-EPI creatinine equation. This equation utilizes serum creatinine, sex, and age as parameters. The creatinine assay has traceable calibration to isotope dilution-mass spectrometry. Refer to KDIGO guidelines for clinical interpretation. In patients with unstable renal function, e.g. those with acute kidney injury, the eGFR may not accurately reflect actual GFR. Performed By: #### 2 4323-8, 3016-3, 46433-6, 3040-3 #### [facility] CLIA [id number] [address] [place] [address] [place] Glucose [Mass/Vol] 128 mg/dL High 74-99 [facility] Comment on above: Order Comment: Reza reyes Type: BLOOD SPECIMEN Ordering Facility: [facility] Address: [address] [place] [address] Result Comment: The [place] [employer] (ADA) provides guidance for cutoff values for fasting glucose and random glucose. The ADA defines fasting as no caloric intake for at least 8 hours. Fasting plasma glucose results between 100 to 125 mg/dL indicate increased risk for diabetes (prediabetes). Fasting plasma glucose results greater than or equal to 126 mg/dL meet the criteria for diagnosis of diabetes. In the absence of unequivocal hyperglycemia, results should be confirmed by repeat testing. In a patient with classic symptoms of hyperglycemia or hyperglycemic crisis, random plasma glucose results greater than or equal to 200 mg/dL meet the criteria for diagnosis of diabetes. Reference: Standards of Medical Care in Diabetes 2016, [place] [employer]. Diabetes Care. 2016.39(Suppl 1). Performed By: #### 2 4323-8, 3016-3, 59468-7, 3040-3 #### [facility] CLIA [id number] [address] [place] [address] [place] Potassium [Moles/Vol] 3.7 mmol/L Normal 3.7-5.1 [facility] Comment on above: Order Comment: Reza reyes Type: BLOOD SPECIMEN Ordering Facility: [facility] Address: [address] [place] [address] Performed By: #### 2 4323-8, 3016-3, 01577-1, 3040-3 #### [facility] CLIA [id number] [address] [place] [address] [place] Protein [Mass/Vol] 6.4 g/dL Normal 6.3-8.0 [facility] Comment on above: Order Comment: Reza reyes Type: BLOOD SPECIMEN Ordering Facility: [facility] Address: [address] [place] [address] Performed By: #### 2 4323-8, 3016-3, 12057-2, 3040-3 #### [facility] CLIA [id number] [address] [place] [address] [place] Sodium [Moles/Vol] 140 mmol/L Normal 136-144 [facility] Comment on above: Order Comment: Reza reyes Type: BLOOD SPECIMEN Ordering Facility: [facility] Address: [address] [place] [address] Performed By: #### 2 4323-8, 3016-3, 80328-5, 3040-3 #### [facility] CLIA [id number] [address] [place] [address] [facility] [place] Urea nitrogen [Mass/Vol] 8 mg/dL Low 9-24 [facility] Comment on above: Order Comment: Speci men Type: BLOOD SPECIMEN Ordering Facility: [facility] Address: [place] [address] Performed By: #### 2 4323-8, 3016-3, 64017-9, 3040-3 #### [facility] CLIA [id number] [address] [place] [address] [facility] ECG COMPLETEon 03-05-2023 ECG COMPLETE Ventricular Rate : 6 5 BPM Atrial Rate : 65 BPM P-R Interval : 174 ms QRS Duration : 128 ms Q-T Interval : 488 ms QTC Calculation(Bazett) : 507 ms Calculated P [place] : 23 degrees Calculated R [place] : -27 degrees Calculated T [place] : -12 degrees NORMAL SINUS RHYTHM LEFT VENTRICULAR HYPERTROPHY WITH QRS WIDENING ( R in aVL , Banner product ) NONSPECIFIC T WAVE ABNORMALITY ABNORMAL ECG NO PREVIOUS ECGS AVAILABLE Confirmed by MD MENDEZ VINAYAK ([id number]) on 03/08/2023 11:26:59 PM NAME : MELIZA EASTMAN PID : [id number] : 1965 Gender : Male Race : ORD : [id number] Procedure Date : Mar 05 2023 20:59:22 Edit Date : Mar 08 2023 23:27:01 Diagnosis: NORMAL SINUS RHYTHM LEFT VENTRICULAR HYPERTROPHY WITH QRS WIDENING ( R in aVL , Banner product ) NONSPECIFIC T WAVE ABNORMALITY ABNORMAL ECG NO PREVIOUS ECGS AVAILABLE Confirmed by MD MENDEZ VINAYAK ([id number]) on 03/08/2023 11:26:59 PM Test Reason : ams Location : 150 : [facility] ED Overread By : MD MENDEZ VINAYAK Edited By : MD MENDEZ VINAYAK Referred By : , Acquired by : LOTTIE HUMPHREY [facility] ED NOTEon 03-05-2023 ED NOTE HNO ID: [id number] Author: Kiran Ball, RN Service: Emergency Medicine Author Type: Registered Nurse Type: ED Notes Filed: 03/05/2023 8:08 PM Note Text: Pt c/o nausea and change in mentation over the last few days. Pt apparently was admitted at [facility] and discharge around the of the month. States that he has been nauseated and throwing up since discharge and hasnt been taking his medication.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 long term today. Friend, Meghan, able to take him. Meghan is to call patient's erisa attorney to confirm that patient will need to return to long term upon DC. 1416: Patient DC'd home. DC Summary sent to [facility]. Signature: Audelia Carcamo Date: January 30, 2023 Time: 10:26 AM [facility] THERAPY NTon 01-30-2023 THERAPY NT HNO ID: [id number] Author: Dominique Varner OTR/L Service: Occupational Therapy Author Type: Occupational Therapist Type: Therapy (PT/OT/Speech/Resp) Filed: 01/30/2023 1:20 PM Note Text: Summary: OT discharge Occupational Therapy [facility] SERVICE DATE: 01/30/2023 SERVICE TIME: 1255 to 1315 ROOM: [place] [address] Discharge Therapy Services Discharged (date): 01/30/23 Discharged To: Home Home Exercise Program Status: Supervision Ability To Apply Precautions Upon Discharge: Requires Cues Recommended Discharge Disposition: Home OT Recommended Discharge Disposition Comments: pt declining therapy services in home Anticipated Discharge Needs: Physical Assist at Home, Supervision at Home Recommended Discharge Equipment: Grab Bars-Toilet, Walker bag/basket OT 6 Clicks Score: 22 Precautions/Activity Restrictions: Fall Risk Precaution/Activity Restriction Comments: bradykinesia, some word finding dificulties Isolation Type: None Current Hospital Course: Patient is a 57 year old male presenting to [facility] s/p hospitalization at [facility] fro AMS, confusion, history of head injury from fall, with acute kidney failure, encephalopathy, hypokalemia, and debility. Brain CT showing non-specific coarse calcifications within cerebellum. CXR (-) for acute disease. EKG (-). Renal US normal. 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 Patient now presents near baseline level of function, and can benefit from skilled interventions to return to home setting (patient declines any HHC). Reason for Hospital Admission: AMS, lithium toxicity Relevant Past Medical History: HTN, bipolar, anxiety, depression, HLD, ITB syndrome, L shoulder pain, obesity, RAY, OA R hip, primary OA B shoulders, dyspnea on exertion Response to Therapy Interventions: Good Participation in Activities, Improved Tolerance for Activity Assessment Comments: pt declining tub transfer; pt reports understanding of d/c instructions and recommendations; pt to d/c home with assist from friends/family as needed; he will receive HHT; Occupational Therapy Problem List: Education Deficit, Pain, Safety Deficits, Impaired Self Care, Decreased Activity Tolerance, Decreased Range Of Motion, Decreased Strength, Functional Mobility Impairment, Balance Impaired Treatment Interventions: Education, Self Care/Home Management, Energy Conservation Training, Strengthening, Joint Mobility, Functional Mobility Training, Balance Training Home Environment Patient Lives With: Self/Alone (1 story home with basement) Assistance Available: PRN (friends and family) Entry To Home: Ramp Number Of Stairs To Bed/Bath: 0 Tub/Shower Type: Tub/shower combo with shower seat, HHSH, grab bars Laundry: Main floor, patient typically completes Equipment Owned: Grab Bars- Shower, Walker- Wheeled, Cane, Elevated Toilet Seat, Hand Held Shower, Shower Chair, Lift Chair, Sock Aid, Dressing Stick, Activity Aide Prior Functional Level: Within Functional Limits Prior Functional Level Comments: Patient reports ind ambulation with PRN use of cane, no falls (though chart reports a fall 2 months ago). (-) driving. Ramp placed for entry into home. 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 Ind with ADLs and IADLs. 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 Highest Level of Education: College/Professional Trade Occupational Factors Life Roles: Retired, Friend Identified Strengths: Access to Healthcare Identified Barriers: Difficulty with ADLs/IADLs, Managing Pain, Fatigue/Endurance, Problem-Solving Skills Subjective: Pt reports no questions or concerns w/ d/c home Learning/Educational Needs: Discharge Plan, Equipment, Family Education/Training, Pain Management, Plan of Care, Rehabilitation Techniques and Procedures, Safety, Self Care CURRENT FUNCTIONAL STATUS: Most recent performance Current Activities of Daily Living Assist Level Additional Information Feeding Set Up Grooming Set Up Bathing Upper Body Modified Independent Bathing Lower Body Supervision, Additional Information, Verbal Cues Only Dressing Upper Body Modified Independent Dressing Lower Body Supervision, Maximal Assistance, Additional Information Toileting Modified Independent Instrumental Activities of Daily Living Assist Level Additional Information Meal/Beverage Prep Stand By Assistance, Minimal Assistance, Additional Information Cleaning Maximal Assistance Laundry Maximal Assistance Medication Manageme (more content not included)... [facility] THERAPY NT HNO ID: [id number] Author: Loren Gonzales PT Service: Physical Therapy Author Type: Physical Therapist Type: Therapy (PT/OT/Speech/Resp) Filed: 01/30/2023 9:08 AM Note Text: Summary: PT discharge note Physical Therapy [facility] SERVICE DATE: 01/30/2023 SERVICE TIME: 843 to 900 ROOM: [place] [address] Discharge Therapy Services Discharged (date): 01/30/23 Discharged To: Home Home Exercise Program Status: Set Up Ability To Apply Precautions Upon Discharge: Requires Cues Recommended Discharge Disposition: Home Recommended Discharge Disposition Comments: Home due to patient declining any [facility] participation. Did encourage family and/or friends to stay with patient 17/11 initially upon d/c. Anticipated Discharge Needs: Physical Assist at Home, Supervision at Home Physical Assist at Home for: Ambulation, Cleaning, Meals, Laundry, Shopping, Stairs, Medication Management, Transportation Supervision at Home due to: Decreased safety awareness Recommended Discharge Equipment: Commode-3 in 1, Grab Bars-Bed PT 6 Clicks Score: 23 Precautions/Activity Restrictions: Fall Risk Precaution/Activity Restriction Comments: bradykinesia, some word finding dificulties Isolation Type: None Current Hospital Course: Patient is a 57 year old male presenting to [facility] s/p hospitalization at [facility] fro AMS, confusion, history of head injury from fall, with acute kidney failure, encephalopathy, hypokalemia, and debility. Brain CT showing non-specific coarse calcifications within cerebellum. CXR (-) for acute disease. EKG (-). Renal US normal. 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 Patient now presents near baseline level of function, and can benefit from skilled interventions to return to home setting (patient declines any HHC). Reason for Hospital Admission: AMS, lithium toxicity Relevant Past Medical History: HTN, bipolar, anxiety, depression, HLD, ITB syndrome, L shoulder pain, obesity, RAY, OA R hip, primary OA B shoulders, dyspnea on exertion Response to Therapy Interventions: On-Track to Achieve Discharge Goals Assessment Comments: Discharge to home setting this date, with patient up ad lori in room with FWW, patient also demonstrating overall improvements in gait speed, however, at this time he is not a functional ambulator for community based on 10 MWT. Encouraged patient to continue using FWW for all ambulation, encouraged patient to take his time on the ramp and have assist if able. Encouraged daily participation in HEP with handouts given. Encouraged patient to follow up with outpatient therapy after home health has discharged him. Explained how home health works, as patient is requesting to drive upon d/c. Discussed that he will need to follow up with his PCP prior to driving. D/c this date. Continued Skilled Needs Due to: Functional Mobility/Skill Impairments Physical Therapy Problem List: Safety Deficits, Impaired Self Care, Decreased Activity Tolerance, Decreased Strength, Functional Mobility Impairment, Decreased Range Of Motion, Balance Impaired Treatment Interventions: Education, Self Care / Home Management, Energy Conservation Training, Joint Mobility, Strengthening, Functional Mobility Training, Balance Training, Neuromuscular Re-education, Pain Management Plan for Next Visit: (discharge) Home Environment Patient Lives With: Self/Alone (1 story home with basement) Assistance Available: PRN (friends and family) Entry To Home: Ramp Number Of Stairs To Bed/Bath: 0 Tub/Shower Type: Tub/shower combo with shower seat, HHSH, grab bars Laundry: Main floor, patient typically completes Equipment Owned: Grab Bars- Shower, Walker- Wheeled, Cane, Elevated Toilet Seat, Hand Held Shower, Shower Chair, Lift Chair, Sock Aid, Dressing Stick, Activity Aide Prior Functional Level: Within Functional Limits Prior Functional Level Comments: Patient reports ind ambulation with PRN use of cane, no falls (though chart reports a fall 2 months ago). (-) driving. Ramp placed for entry into home. 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 Ind with ADLs and IADLs. Baseline Cognition: Oriented to self, Oriented to place, Oriented to time, Oriented to situation Subjective: Discharge to home setting this date. I'm not sure whether I have to go back to court or I can go home. When can I drive? CURRENT FUNCTIONAL STATUS: Most recent performance Current Functional Mobility Assist Level Additional Information Rolling Modified Independent (uses bed rails for mobility,transfers) Supine to Sit Modified Independent Sit to Supine Modified (more content not included)... [facility] SOCIAL WORKon 01-29-2023 SOCIAL WORK HNO ID: [id number] Author: Audelia Carcamo LSW Service: Social Work Author Type: Mail Inserter Type: Social Work Filed: 01/29/2023 5:26 PM Note Text: SOCIAL WORK PROGRESS NOTE Name: Meliza Eastman Asked patient if he has found a ride for going home on 01/30. He said sort of. Said a friend (Meghan) can probably pick him up. Patient says he needs to sign a release form for his erisa attorney to get his medical records. 1540: Assisted patient with completing medical release forms for [facility] and [facility]. Faxed forms to Health Information Mgt ([facility]) Depts for both hospitals. Patient also needs to fax documents from his erisa attorney once he has them completed (Chencho Smith at [phone]) 1630: Faxed erisa attorney's release form to [facility] and [facility]. Signature: Audelia Carcamo Date: January 29, 2023 Time: 3:04 PM [facility] THERAPY NTon 01-29-2023 THERAPY NT HNO ID: [id number] Author: Li Torres OTA/L Service: Occupational Therapy Author Type: Grounds Manager Type: Therapy (PT/OT/Speech/Resp) Filed: 01/29/2023 3:07 PM Note Text: Attestation signed by Dominique Varner OTR/L at 01/29/2023 3:15 PM I reviewed and agree with the documentation corresponding to this therapy visit. SIGNATURE: JOSE Giron DATE: January 29, 2023 TIME: 3:15 PM Occupational Therapy [facility] SERVICE DATE: 01/29/2023 SERVICE TIME: 1335 to 1422 ROOM: [place] [address] Recommended Discharge Disposition: Home OT Recommended Discharge Disposition Comments: pt declining therapy services in home Anticipated Discharge Needs: Physical Assist at Home, Supervision at Home Recommended Discharge Equipment: Grab Bars-Toilet, Walker bag/basket OT 6 Clicks Score: 21 Precautions/Activity Restrictions: Fall Risk Precaution/Activity Restriction Comments: bradykinesia, some word finding dificulties Isolation Type: None Current Hospital Course: Patient is a 57 year old male presenting to [facility] s/p hospitalization at [facility] fro AMS, confusion, history of head injury from fall, with acute kidney failure, encephalopathy, hypokalemia, and debility. Brain CT showing non-specific coarse calcifications within cerebellum. CXR (-) for acute disease. EKG (-). Renal US normal. 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 Patient now presents near baseline level of function, and can benefit from skilled interventions to return to home setting (patient declines any HHC). Reason for Hospital Admission: AMS, lithium toxicity Relevant Past Medical History: HTN, bipolar, anxiety, depression, HLD, ITB syndrome, L shoulder pain, obesity, RAY, OA R hip, primary OA B shoulders, dyspnea on exertion Response to Therapy Interventions: Good Participation in Activities, Improved Tolerance for Activity Assessment Comments: Pt completing full shower ADL, electing to complete much of shower in standing. Pt educated on energy conservation techniques such as sitting to shower, scheduling day in order to not be rushed. Pt verbalized understanding but declined to change positioning thorughout session. Pt much fatigued by end of session but completing all aspects well. Pt participating in cognitive/neuro-reeduca tion with increased difficulty when combined with mobility tasks. Continued Skilled Needs Due to: Cognitive Deficits, Family Training Required, Functional Impairment, Safety Concerns Occupational Therapy Problem List: Education Deficit, Pain, Safety Deficits, Impaired Self Care, Decreased Activity Tolerance, Decreased Range Of Motion, Decreased Strength, Functional Mobility Impairment, Balance Impaired Treatment Interventions: Education, Self Care/Home Management, Energy Conservation Training, Strengthening, Joint Mobility, Functional Mobility Training, Balance Training Plan for Next Visit: Shower/Tub Transfer Training, Bed Mobility, Chair/Commode Transfer Training, Exercise Instruction/Handout, Standing Balance, Standing Tolerance, Toileting Instruction Home Environment Patient Lives With: Self/Alone (1 story home with basement) Assistance Available: PRN (friends and family) Entry To Home: Ramp Number Of Stairs To Bed/Bath: 0 Tub/Shower Type: Tub/shower combo with shower seat, HHSH, grab bars Laundry: Main floor, patient typically completes Equipment Owned: Grab Bars- Shower, Walker- Wheeled, Cane, Elevated Toilet Seat, Hand Held Shower, Shower Chair, Lift Chair, Sock Aid, Dressing Stick, Activity Aide Prior Functional Level: Within Functional Limits Prior Functional Level Comments: Patient reports ind ambulation with PRN use of cane, no falls (though chart reports a fall 2 months ago). (-) driving. Ramp placed for entry into home. 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 Ind with ADLs and IADLs. 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 Learning/Educational Needs: Discharge Plan, Equipment, Family Education/Training, Pain Management, Plan of Care, Rehabilitation Techniques and Procedures, Safety, Self Care CURRE (more content not included)... [facility] THERAPY NT HNO ID: [id number] Author: Mariah Boone PTA Service: Physical Therapy Author Type: Performance Architect Type: Therapy (PT/OT/Speech/Resp) Filed: 01/29/2023 10:28 AM Note Text: Attestation signed by Loren Gonzales PT at 01/29/2023 11:59 AM I reviewed and agree with the documentation corresponding to this therapy visit. SIGNATURE: Loren Gonzales, PT DATE: January 29, 2023 TIME: 11:59 AM Physical Therapy [facility] SERVICE DATE: 01/29/2023 SERVICE TIME: 927 to 1010 ROOM: [place] [address] Recommended Discharge Disposition: Home Recommended Discharge Disposition Comments: Home due to patient declining any [facility] participation. Did encourage family and/or friends to stay with patient 17/11 initially upon d/c. Anticipated Discharge Needs: Physical Assist at Home, Supervision at Home Physical Assist at Home for: Ambulation, Cleaning, Meals, Laundry, Shopping, Stairs, Medication Management, Transportation Supervision at Home due to: Decreased safety awareness Recommended Discharge Equipment: Commode-3 in 1, Grab Bars-Bed PT 6 Clicks Score: 21 Precautions/Activity Restrictions: Fall Risk Precaution/Activity Restriction Comments: bradykinesia, some word finding dificulties Isolation Type: None Current Hospital Course: Patient is a 57 year old male presenting to [facility] s/p hospitalization at [facility] fro AMS, confusion, history of head injury from fall, with acute kidney failure, encephalopathy, hypokalemia, and debility. Brain CT showing non-specific coarse calcifications within cerebellum. CXR (-) for acute disease. EKG (-). Renal US normal. 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 Patient now presents near baseline level of function, and can benefit from skilled interventions to return to home setting (patient declines any C). Reason for Hospital Admission: AMS, lithium toxicity Relevant Past Medical History: HTN, bipolar, anxiety, depression, HLD, ITB syndrome, L shoulder pain, obesity, RAY, OA R hip, primary OA B shoulders, dyspnea on exertion Response to Therapy Interventions: Good Participation in Activities Assessment Comments: (patient comfortable with up in the day without using call light) Continued Skilled Needs Due to: Functional Mobility/Skill Impairments Physical Therapy Problem List: Safety Deficits, Impaired Self Care, Decreased Activity Tolerance, Decreased Strength, Functional Mobility Impairment, Decreased Range Of Motion, Balance Impaired Treatment Interventions: Education, Self Care / Home Management, Energy Conservation Training, Joint Mobility, Strengthening, Functional Mobility Training, Balance Training, Neuromuscular Re-education, Pain Management Plan for Next Visit: (strengthening) Home Environment Patient Lives With: Self/Alone (1 story home with basement) Assistance Available: PRN (friends and family) Entry To Home: Ramp Number Of Stairs To Bed/Bath: 0 Tub/Shower Type: Tub/shower combo with shower seat, HHSH, grab bars Laundry: Main floor, patient typically completes Equipment Owned: Grab Bars- Shower, Walker- Wheeled, Cane, Elevated Toilet Seat, Hand Held Shower, Shower Chair, Lift Chair, Sock Aid, Dressing Stick, Activity Aide Prior Functional Level: Within Functional Limits Prior Functional Level Comments: Patient reports ind ambulation with PRN use of cane, no falls (though chart reports a fall 2 months ago). (-) driving. Ramp placed for entry into home. 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 Ind with ADLs and IADLs. Baseline Cognition: Oriented to self, Oriented to place, Oriented to time, Oriented to situation Subjective: patient reports knees are sore but thats from exercising CURRENT FUNCTIONAL STATUS: Most recent performance Current Functional Mobility Assist Level Additional Information Rolling Modified Independent (uses bed rails for mobility,transfers) Supine to Sit Supervision Sit to Supine Scooting Stand By Assistance Sit to Stand Independent Stand to Sit Independent Bed to Chair Supervision Bed To Chair Transfer Type: Stepping Bed To Chair Transfer Equipment: Wheeled Walker Toilet/Commode Gait Stand By Assistance Gait Device: Wheeled Walker Gait Distance (feet): 100 ft Stairs Contact Guard Assistance Stairs Device: Rail Number of Stairs: 4 Curb Step Car Transfer Blank bahena indicate activity not attempted General Deviations/Observations : (speed and wendi increased during gait) Ramp: CGA to ascend and descend 8 foot ramp with use of WW. Balance: Static Sitting, Dynamic Sitting, Static Standing, Dynamic Standing Static Sitting (more content not included)... [facility] NUTRITIONon 01-28-2023 NUTRITION HNO ID: [id number] Author: Toño Carranza RD Service: Nutrition Therapy Author Type: Registered Dietitian Type: Nutrition Filed: 01/28/2023 2:08 PM Note Text: NUTRITION THERAPY PROGRESS NOTE SERVICE DATE: 01/28/2023 SERVICE TIME: 10:15 am Nutrition Assessment: Recommended Malnutrition Diagnosis: No Malnutrition Identified (01/28/23 1357 : Toño Carranza RD) Estimated kilocalorie needs: 1353-6092 Calorie Calculation Method: 25-30 kcals/kg, [place] Body Weight Estimated protein needs (grams): 75-90 Grams protein determined by: 1.0 - 1.2 g/kg, [place] body weight Care Plan: Continue current diet Supplements: (Will trial Mulga Instant Breakfast 1/day - Total of 130 calories and 5g protein in powder, to then be mixed with milk) Continue to encourage adequate PO intake and hydration Continue MVI Monitor and Evaluation: Monitor labs, I/Os, vital signs, weight, Monitor fluid/electrolyte balance, Monitor bowel function, Meet greater than 75% of estimated needs Discharge Recommendations: Diet Diet: Continue to aim for 3 meals/day following a regular diet, with a protein source at every meal. Interval History: This patient is a 57 year old male with a LOS of 7 days. The patient continues to work with PT/OT, progressing well. Anticipated discharge date of 01/31. Medication and lab results reviewed. Anthropometrics: Height: 177.8 cm (5' 10) Weight: (!) 147.2 kg (324 lb 8.3 oz) Dosing Weight: 75.3 kg (166 lb 0.1 oz) Body mass index is 46.56 kg/m?. Weight change percentage over time: 0.6% weight loss x 1 week - Not clinically significant. Patient also with fluid shifts at this time which may cause weight fluctuations. Intake History: Current Nutrition Intake: Greater than 75% estimated energy needs (Per I/O flowsheet, patient with 10-100% intake of meals recorded x the past 5 days, with only 1 episode of 10% intake, average intake >/= 75%. Patient reports an improved PO intake and appetite since admission.) Patient also reports drinking plenty of water throughout the day. Breakfast this AM was a sausage, egg and cheese breakfast sandwich. Current Intake Over time: Greater than or equal to 5 days Diet Orders (From admission, onward) Start Ordered 01/26/23 0845 DIET SUPPLEMENTS START NOW Question Answer Comment Supplement 1 ENSURE PLUS HIGH PROTEIN VANILLA Supplement 1 Frequency LUNCH 01/26/23 0845 01/21/23 1330 DIET REGULAR START NOW 01/21/23 1325 GI Symptoms: None (Last BM recorded on 01/27 - Formed stool. Patient reports no GI concerns and no chewing/swallowing concerns at this time.) Stool Amount: Decreased Stool Consistency: Formed MNT Billing: $ Reassessment: 1-15 minutes SIGNATURE: Toño Carranza RD PATIENT NAME: Meliza Eastman DATE: January 28, 2023 TIME: 2:02 PM [facility] SOCIAL WORKon 01-28-2023 SOCIAL WORK HNO ID: [id number] Author: Audelia Carcamo LSW Service: Social Work Author Type: Mail Inserter Type: Social Work Filed: 01/28/2023 5:46 PM Note Text: SOCIAL WORK PROGRESS NOTE Name: Meliza Eastman Received NOMNC from insurance with LCD of 01/30. Patient agreeable to DC on 01/30. Is going to try to arrange a ride. NOMNC signed and faxed. Signature: Audelia Carcamo Date: January 28, 2023 Time: 5:45 PM [facility] THERAPY NTon 01-28-2023 THERAPY NT HNO ID: [id number] Author: Loren Gonzales PT Service: Physical Therapy Author Type: Physical Therapist Type: Therapy (PT/OT/Speech/Resp) Filed: 01/31/2023 8:27 AM Note Text: Physical Therapy [facility] SERVICE DATE: 01/28/2023 SERVICE TIME: 1255 to 1340 ROOM: [place] [address] Recommended Discharge Disposition: Home Recommended Discharge Disposition Comments: Home due to patient declining any [facility] participation. Did encourage family and/or friends to stay with patient 17/11 initially upon d/c. Anticipated Discharge Needs: Physical Assist at Home, Supervision at Home Physical Assist at Home for: Ambulation, Cleaning, Meals, Laundry, Shopping, Stairs, Medication Management, Transportation Supervision at Home due to: Decreased safety awareness Recommended Discharge Equipment: Commode-3 in 1, Grab Bars-Bed PT 6 Clicks Score: 21 Precautions/Activity Restrictions: Fall Risk Precaution/Activity Restriction Comments: bradykinesia, some word finding dificulties Current Hospital Course: Patient is a 57 year old male presenting to [facility] s/p hospitalization at [facility] fro AMS, confusion, history of head injury from fall, with acute kidney failure, encephalopathy, hypokalemia, and debility. Brain CT showing non-specific coarse calcifications within cerebellum. CXR (-) for acute disease. EKG (-). Renal US normal. 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 Patient now presents near baseline level of function, and can benefit from skilled interventions to return to home setting (patient declines any [facility]). Reason for Hospital Admission: AMS, lithium toxicity Relevant Past Medical History: HTN, bipolar, anxiety, depression, HLD, ITB syndrome, L shoulder pain, obesity, RAY, OA R hip, primary OA B shoulders, dyspnea on exertion Response to Therapy Interventions: Good Participation in Activities Assessment Comments: patient with good motivation and effort with ambulation and tasks Continued Skilled Needs Due to: Functional Mobility/Skill Impairments Physical Therapy Problem List: Safety Deficits, Impaired Self Care, Decreased Activity Tolerance, Decreased Strength, Functional Mobility Impairment, Decreased Range Of Motion, Balance Impaired Treatment Interventions: Education, Self Care / Home Management, Energy Conservation Training, Joint Mobility, Strengthening, Functional Mobility Training, Balance Training, Neuromuscular Re-education, Pain Management Plan for Next Visit: Gait Training (strengthening) Home Environment Patient Lives With: Self/Alone (1 story home with basement) Assistance Available: PRN (friends and family) Entry To Home: Ramp Number Of Stairs To Bed/Bath: 0 Tub/Shower Type: Tub/shower combo with shower seat, HHSH, grab bars Laundry: Main floor, patient typically completes Equipment Owned: Grab Bars- Shower, Walker- Wheeled, Cane, Elevated Toilet Seat, Hand Held Shower, Shower Chair, Lift Chair, Sock Aid, Dressing Stick, Activity Aide Prior Functional Level: Within Functional Limits Prior Functional Level Comments: Patient reports ind ambulation with PRN use of cane, no falls (though chart reports a fall 2 months ago). (-) driving. Ramp placed for entry into home. 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 Ind with ADLs and IADLs. Baseline Cognition: Oriented to self, Oriented to place, Oriented to time, Oriented to situation Subjective: Patient reports min. back pain at the present time Patient agreeable to try the bike. CURRENT FUNCTIONAL STATUS: Most recent performance Current Functional Mobility Assist Level Additional Information Rolling Modified Independent (uses bed rails for mobility,transfers) Supine to Sit Supervision Sit to Supine Scooting Supervision Sit to Stand Supervision Stand to Sit Supervision Bed to Chair Supervision Bed To Chair Transfer Type: Stepping Bed To Chair Transfer Equipment: Wheeled Walker Toilet/Commode Gait Stand By Assistance Gait Device: Wheeled Walker Gait Distance (feet): 100 ft Stairs Contact Guard Assistance Stairs Device: Rail for strengthening and balance Number of Stairs: 4 Curb Step Car Transfer Blank bahena indicate activity not attempted General Deviations/Observations : (speed and wendi increased during gait) Ramp: CGA to ascend and descend 8 foot ramp with use of WW. Balance: Static Sitting, Dynamic Sitting, Static Standing, Dynamic Standing Static Sitting Balance: Normal Patient able to maintain steady balance without handhold support Dynamic Sitting Balance: Fair Patient accepts minimal challenge, able to maintain balance while turning head/trunk Static Standing Balance: Fair Patient able to maintain balance with handhold support, may require occasional minimal assistance Dynamic Standin (more content not included)... [facility] THERAPY NT HNO ID: [id number] Author: France Mishra OTR/L Service: Occupational Therapy Author Type: Occupational Therapist Type: Therapy (PT/OT/Speech/Resp) Filed: 01/28/2023 12:42 PM Note Text: Occupational Therapy [facility] SERVICE DATE: 01/28/2023 SERVICE TIME: 954 to 1034 ROOM: [place] [address] Recommended Discharge Disposition: Home OT Recommended Discharge Disposition Comments: pt declining therapy services in home Anticipated Discharge Needs: Physical Assist at Home, Supervision at Home Recommended Discharge Equipment: Grab Bars-Toilet, Walker bag/basket OT 6 Clicks Score: 21 Precautions/Activity Restrictions: Fall Risk Precaution/Activity Restriction Comments: bradykinesia, some word finding dificulties Current Hospital Course: Patient is a 57 year old male presenting to [facility] s/p hospitalization at [facility] fro AMS, confusion, history of head injury from fall, with acute kidney failure, encephalopathy, hypokalemia, and debility. Brain CT showing non-specific coarse calcifications within cerebellum. CXR (-) for acute disease. EKG (-). Renal US normal. 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 Patient now presents near baseline level of function, and can benefit from skilled interventions to return to home setting (patient declines any HHC). Reason for Hospital Admission: AMS, lithium toxicity Relevant Past Medical History: HTN, bipolar, anxiety, depression, HLD, ITB syndrome, L shoulder pain, obesity, RAY, OA R hip, primary OA B shoulders, dyspnea on exertion Response to Therapy Interventions: Good Participation in Activities, Improved Tolerance for Activity Assessment Comments: Patient demonstrated increased activity tolerance today with increased ambulation distance noted at a SBA level. Pt completed dressing tasks today with proper use of adaptive equipment. Pt would benefit from instruction in tub transfer techniques/options prior to discharge. Continued Skilled Needs Due to: Cognitive Deficits, Family Training Required, Functional Impairment, Safety Concerns Occupational Therapy Problem List: Education Deficit, Pain, Safety Deficits, Impaired Self Care, Decreased Activity Tolerance, Decreased Range Of Motion, Decreased Strength, Functional Mobility Impairment, Balance Impaired Treatment Interventions: Education, Self Care/Home Management, Energy Conservation Training, Strengthening, Joint Mobility, Functional Mobility Training, Balance Training Plan for Next Visit: Shower/Tub Transfer Training, Bed Mobility, Chair/Commode Transfer Training, Exercise Instruction/Handout, Standing Balance, Standing Tolerance, Toileting Instruction Home Environment Patient Lives With: Self/Alone (1 story home with basement) Assistance Available: PRN (friends and family) Entry To Home: Ramp Number Of Stairs To Bed/Bath: 0 Tub/Shower Type: Tub/shower combo with shower seat, HHSH, grab bars Laundry: Main floor, patient typically completes Equipment Owned: Grab Bars- Shower, Walker- Wheeled, Cane, Elevated Toilet Seat, Hand Held Shower, Shower Chair, Lift Chair, Sock Aid, Dressing Stick, Activity Aide Prior Functional Level: Within Functional Limits Prior Functional Level Comments: Patient reports ind ambulation with PRN use of cane, no falls (though chart reports a fall 2 months ago). (-) driving. Ramp placed for entry into home. 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 Ind with ADLs and IADLs. 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 Highest Level of Education: College/Professional Trade Occupational Factors Life Roles: Retired, Friend Identified Strengths: Access to Healthcare Identified Barriers: Difficulty with ADLs/IADLs, Managing Pain, Fatigue/Endurance, Problem-Solving Skills Subjective: Pt stated he need to know a discharge date to line things up so I have help--I don't have a to help me Learning/Educational Needs: Discharge Plan, Equipment, Family Education/Training, Pain Management, Plan of Care, Rehabilitation Techniques and Procedures, Safety, Self Care CURRENT FUNCTIONAL STATUS: Most recent performance Current Activities of Daily Living Assist Level Additional Information Feeding Set Up Grooming Set Up Bathing Upper Body Modified Independent (in shower with use of long sponge to bathe back) Bathing Lower Body Supervision, Additional Information for standing aspects of bathing groin/sohail areas in shower; used grab bar for support/balance. Instructed in use of long sponge to bathe LEs while seated on shower chair. Instructed in use of AE to dry distal LEs while seated on shower chair Dressing Upper Body Set Up (to don/dof (more content not included)... [facility] CASE MANAGEMon 01-27-2023 CASE MANAGEM HNO ID: [id number] Author: Fior Infante RN Service: ? Author Type: Registered Nurse Type: Care Mgt Progress Note Filed: 01/27/2023 1:51 PM Note Text: Summary: discharge planning Met with pt to discuss discharge plan and insurance update. Pt aware insurance update sent 01/26- awaiting response re: continued stay. Discussed discharge today- pt laughed and stated no, I dont think so.... He stated [facility] was going to order UA d/t his increased frequency of urination- denied burning or hematuria. Explained insurance may not approve more skilled days. Pt verbalized understanding. He stated I didn't do well today with therapy. Pt did not elaborate on comment. UA ordered per DIRECTOR OF MARKETING OPERATIONS. Will follow [facility] SOCIAL WORKon 01-27-2023 SOCIAL WORK HNO ID: [id number] Author: Audelia Carcamo LSW Service: Social Work Author Type: Mail Inserter Type: Social Work Filed: 01/28/2023 4:56 PM Note Text: Summary: Team Rounds MULTIDISCIPLINARY ROUNDS SERVICE DATE: 01/28/2023 ADMISSION DATE: 01/21/2023 SERVICE TIME: 12:30 PM ANTICIPATED D/C DATE: 01/29? (UD 01/27) Problem List: ACTIVE PROBLEM LIST Heart Disease Essential Hypertension Hyperlipemia Ray (Obstructive Sleep Apnea) Bipolar Depression (Hcc) Pain in Joint, Multiple Sites Gastroesophageal Reflux Disease Without Esophagitis Aftercare Carlos (Acute Kidney Injury) (Hcc) Malnutrition of Mild Degree (Hcc) Attendees Present at Rounds: CM, Nsg Mgr, Nut, OT, PT, SW Needs Discussed on Rounds: Discharge Needs Mobility Plan of Care Anticipated Discharge Disposition: Home with Home Health Last Vitals: BP 140/84 Pulse 71 Temp (Src) 98.5 (Oral) Resp 16 Ht 5' 10 (1.78m) Wt 326 lb 8 oz (148.1kg) SpO2 94% BMI 46.85 kg/(m2). O2 Therapy: Room Air PT: Met all goals. OT: Met all goals. Uses adaptive equipmt for toileting at home. CM: Confusion and SRF improved. Slow to respond. SW: Jimbo/Merary: PT,OT. To issue NOMNC today. Nursing: DOCUMENTED BY: INA Ziegler PATIENT NAME: Meliza Eastman DATE: January 27, 2023 TIME: 2:27 PM CSN: [id number] [facility] SOCIAL WORK HNO ID: [id number] Author: Audelia Carcamo LSW Service: Social Work Author Type: Mail Inserter Type: Social Work Filed: 01/27/2023 4:23 PM Note Text: SOCIAL WORK PROGRESS NOTE Name: Meliza Eastman Patient will not be DC'd today. Notified [facility] and to keep them posted on DC date. 1618: To patient's room for rounding. Told him we are waiting for insurance re: how much time they will approve. Patient says he wants to get stronger and needs more endurance. Said he fatigues easily. Signature: Audelia Carcamo Date: January 27, 2023 Time: 1:56 PM [facility] THERAPY NTon 01-27-2023 THERAPY NT HNO ID: [id number] Author: Abdi Potts PTA Service: Physical Therapy Author Type: Performance Architect Type: Therapy (PT/OT/Speech/Resp) Filed: 01/27/2023 2:59 PM Note Text: Attestation signed by Loren Gonzales, PT at 01/27/2023 3:48 PM I reviewed and agree with the documentation corresponding to this therapy visit. SIGNATURE: Loren Gonzales, PT DATE: January 27, 2023 TIME: 3:48 PM Physical Therapy [facility] SERVICE DATE: 01/27/2023 SERVICE TIME: 1415 to 1435 ROOM: [place] [address] Recommended Discharge Disposition: Home Recommended Discharge Disposition Comments: Home due to patient declining any [facility] participation. Did encourage family and/or friends to stay with patient 17/11 initially upon d/c. Anticipated Discharge Needs: Physical Assist at Home, Supervision at Home Physical Assist at Home for: Ambulation, Cleaning, Meals, Laundry, Shopping, Stairs, Medication Management, Transportation Supervision at Home due to: Decreased safety awareness Recommended Discharge Equipment: Commode-3 in 1, Grab Bars-Bed PT 6 Clicks Score: 21 Precautions/Activity Restrictions: Fall Risk Precaution/Activity Restriction Comments: bradykinesia, some word finding dificulties Current Hospital Course: Patient is a 57 year old male presenting to [facility] s/p hospitalization at [facility] fro AMS, confusion, history of head injury from fall, with acute kidney failure, encephalopathy, hypokalemia, and debility. Brain CT showing non-specific coarse calcifications within cerebellum. CXR (-) for acute disease. EKG (-). Renal US normal. 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 Patient now presents near baseline level of function, and can benefit from skilled interventions to return to home setting (patient declines any C). Reason for Hospital Admission: AMS, lithium toxicity Relevant Past Medical History: HTN, bipolar, anxiety, depression, HLD, ITB syndrome, L shoulder pain, obesity, RAY, OA R hip, primary OA B shoulders, dyspnea on exertion Response to Therapy Interventions: Good Participation in Activities Assessment Comments: patient with good participation with bed level exercise but patient reported too fatigued to progress gait activities Continued Skilled Needs Due to: Functional Mobility/Skill Impairments Physical Therapy Problem List: Safety Deficits, Impaired Self Care, Decreased Activity Tolerance, Decreased Strength, Functional Mobility Impairment, Decreased Range Of Motion, Balance Impaired Treatment Interventions: Education, Self Care / Home Management, Energy Conservation Training, Joint Mobility, Strengthening, Functional Mobility Training, Balance Training, Neuromuscular Re-education, Pain Management Plan for Next Visit: Gait Training, Standing Balance, Exercise Instruction/Handout Home Environment Patient Lives With: Self/Alone (1 story home with basement) Assistance Available: PRN (friends and family) Entry To Home: Ramp Number Of Stairs To Bed/Bath: 0 Tub/Shower Type: Tub/shower combo with shower seat, HHSH, grab bars Laundry: Main floor, patient typically completes Equipment Owned: Grab Bars- Shower, Walker- Wheeled, Cane, Elevated Toilet Seat, Hand Held Shower, Shower Chair, Lift Chair, Sock Aid, Dressing Stick, Activity Aide Prior Functional Level: Within Functional Limits Prior Functional Level Comments: Patient reports ind ambulation with PRN use of cane, no falls (though chart reports a fall 2 months ago). (-) driving. Ramp placed for entry into home. 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 Ind with ADLs and IADLs. Baseline Cognition: Oriented to self, Oriented to place, Oriented to time, Oriented to situation Subjective: patient reports fatigue from having a shower this morning and is tired CURRENT FUNCTIONAL STATUS: Most recent performance Current Functional Mobility Assist Level Additional Information Rolling Modified Independent (uses bed rails for mobility,transfers) Supine to Sit Supervision Sit to Supine Scooting Supervision Sit to Stand Supervision Stand to Sit Supervision Bed to Chair Supervision Bed To Chair Transfer Type: Stepping Bed To Chair Transfer Equipment: Wheeled Walker Toilet/Commode Gait Stand By Assistance Gait Device: Wheeled Walker Gait Distance (feet): 100 Stairs (N/A) Curb Step Car Transfer Blank bahena indicate activity not attempted General Deviations/Observations : Step length decreased Ramp: CGA to ascend and descend 8 foot ramp with use of WW. Balance: Static Sitting, Dynamic Sitting, Static Standing, Dynamic Standing Static Sitting (more content not included)... [facility] THERAPY NT HNO ID: [id number] Author: Abdi Potts PTA Service: Physical Therapy Author Type: Performance Architect Type: Therapy (PT/OT/Speech/Resp) Filed: 01/27/2023 12:31 PM Note Text: Attestation signed by Loren Gonzales PT at 01/27/2023 3:45 PM I reviewed and agree with the documentation corresponding to this therapy visit. SIGNATURE: Loren Gonzales, PT DATE: January 27, 2023 TIME: 3:45 PM Physical Therapy [facility] SERVICE DATE: 01/27/2023 SERVICE TIME: 0945 to 1015 ROOM: [place] [address] Recommended Discharge Disposition: Home Recommended Discharge Disposition Comments: Home due to patient declining any [facility] participation. Did encourage family and/or friends to stay with patient 17/11 initially upon d/c. Anticipated Discharge Needs: Physical Assist at Home, Supervision at Home Physical Assist at Home for: Ambulation, Cleaning, Meals, Laundry, Shopping, Stairs, Medication Management, Transportation Supervision at Home due to: Decreased safety awareness Recommended Discharge Equipment: Commode-3 in 1, Grab Bars-Bed PT 6 Clicks Score: 21 Precautions/Activity Restrictions: Fall Risk Precaution/Activity Restriction Comments: bradykinesia, some word finding dificulties Current Hospital Course: Patient is a 57 year old male presenting to [facility] s/p hospitalization at [facility] fro AMS, confusion, history of head injury from fall, with acute kidney failure, encephalopathy, hypokalemia, and debility. Brain CT showing non-specific coarse calcifications within cerebellum. CXR (-) for acute disease. EKG (-). Renal US normal. 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 Patient now presents near baseline level of function, and can benefit from skilled interventions to return to home setting (patient declines any HHC). Reason for Hospital Admission: AMS, lithium toxicity Relevant Past Medical History: HTN, bipolar, anxiety, depression, HLD, ITB syndrome, L shoulder pain, obesity, RAY, OA R hip, primary OA B shoulders, dyspnea on exertion Response to Therapy Interventions: Good Participation in Activities Continued Skilled Needs Due to: Functional Mobility/Skill Impairments Physical Therapy Problem List: Safety Deficits, Impaired Self Care, Decreased Activity Tolerance, Decreased Strength, Functional Mobility Impairment, Decreased Range Of Motion, Balance Impaired Treatment Interventions: Education, Self Care / Home Management, Energy Conservation Training, Joint Mobility, Strengthening, Functional Mobility Training, Balance Training, Neuromuscular Re-education, Pain Management Plan for Next Visit: Standing Balance, Gait Training Home Environment Patient Lives With: Self/Alone (1 story home with basement) Assistance Available: PRN (friends and family) Entry To Home: Ramp Number Of Stairs To Bed/Bath: 0 Tub/Shower Type: Tub/shower combo with shower seat, HHSH, grab bars Laundry: Main floor, patient typically completes Equipment Owned: Grab Bars- Shower, Walker- Wheeled, Cane, Elevated Toilet Seat, Hand Held Shower, Shower Chair, Lift Chair, Sock Aid, Dressing Stick, Activity Aide Prior Functional Level: Within Functional Limits Prior Functional Level Comments: Patient reports ind ambulation with PRN use of cane, no falls (though chart reports a fall 2 months ago). (-) driving. Ramp placed for entry into home. 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 Ind with ADLs and IADLs. Baseline Cognition: Oriented to self, Oriented to place, Oriented to time, Oriented to situation Subjective: patient reports walking with shoes felt more stable CURRENT FUNCTIONAL STATUS: Most recent performance Current Functional Mobility Assist Level Additional Information Rolling Modified Independent (uses bed rails for mobility,transfers) Supine to Sit Supervision Sit to Supine Scooting Supervision Sit to Stand Supervision Stand to Sit Supervision Bed to Chair Supervision Bed To Chair Transfer Type: Stepping Bed To Chair Transfer Equipment: Wheeled Walker Toilet/Commode Gait Stand By Assistance Gait Device: Wheeled Walker Gait Distance (feet): 100 Stairs (N/A) Curb Step Car Transfer Blank bahena indicate activity not attempted General Deviations/Observations : Step length decreased Ramp: CGA to ascend and descend 8 foot ramp with use of WW. Balance: Static Sitting, Dynamic Sitting, Static Standing, Dynamic Standing Static Sitting Balance: Normal Patient able to maintain steady balance without handhold support Dynamic Sitting Balance: Fair Patient accepts minimal challenge, able to maintain balance while turning head (more content not included)... Normal [facility] THERAPY NT HNO ID: [id number] Author: France Mishra, OTR/L Service: Occupational Therapy Author Type: Occupational Therapist Type: Therapy (PT/OT/Speech/Resp) Filed: 01/27/2023 12:26 PM Note Text: Occupational Therapy [facility] Treatment SERVICE DATE: 01/27/2023 SERVICE TIME: 1100 to 1138 ROOM: [place] [address] Recommended Discharge Disposition: Home OT Recommended Discharge Disposition Comments: pt declining therapy services in home Anticipated Discharge Needs: Physical Assist at Home, Supervision at Home Recommended Discharge Equipment: Grab Bars-Toilet, Walker bag/basket OT 6 Clicks Score: 21 Precautions/Activity Restrictions: Fall Risk Precaution/Activity Restriction Comments: bradykinesia, some word finding dificulties Current Hospital Course: Patient is a 57 year old male presenting to [facility] s/p hospitalization at [facility] fro AMS, confusion, history of head injury from fall, with acute kidney failure, encephalopathy, hypokalemia, and debility. Brain CT showing non-specific coarse calcifications within cerebellum. CXR (-) for acute disease. EKG (-). Renal US normal. 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 Patient now presents near baseline level of function, and can benefit from skilled interventions to return to home setting (patient declines any HHC). Reason for Hospital Admission: AMS, lithium toxicity Relevant Past Medical History: HTN, bipolar, anxiety, depression, HLD, ITB syndrome, L shoulder pain, obesity, RAY, OA R hip, primary OA B shoulders, dyspnea on exertion Response to Therapy Interventions: Good Participation in Activities, Cognitive Deficits, Low Activity Tolerance, Requires Additional Time to Complete Activities Assessment Comments: This patient completed showering activity with supervision needed overall for safety in standing aspects; pt reported increased fatigue today and was unable to participate in dressing tasks after showering due to fatigue. Pt also reported he was having difficulty answering questions, and more time was required for pt's response to questions. Pt also required CGA in ambulation today due to pt reporting increased fatigue and shakiness. Will continue OT treatment for dressing training, toileting training, and tub transfer training. Continued Skilled Needs Due to: Cognitive Deficits, Family Training Required, Functional Impairment, Safety Concerns Occupational Therapy Problem List: Education Deficit, Pain, Safety Deficits, Impaired Self Care, Decreased Activity Tolerance, Decreased Range Of Motion, Decreased Strength, Functional Mobility Impairment, Balance Impaired Treatment Interventions: Education, Self Care/Home Management, Energy Conservation Training, Strengthening, Joint Mobility, Functional Mobility Training, Balance Training Plan for Next Visit: Dressing Training, Toileting Instruction, Shower/Tub Transfer Training Home Environment Patient Lives With: Self/Alone (1 story home with basement) Assistance Available: PRN (friends and family) Entry To Home: Ramp Number Of Stairs To Bed/Bath: 0 Tub/Shower Type: Tub/shower combo with shower seat, HHSH, grab bars Laundry: Main floor, patient typically completes Equipment Owned: Grab Bars- Shower, Walker- Wheeled, Cane, Elevated Toilet Seat, Hand Held Shower, Shower Chair, Lift Chair, Sock Aid, Dressing Stick, Activity Aide Prior Functional Level: Within Functional Limits Prior Functional Level Comments: Patient reports ind ambulation with PRN use of cane, no falls (though chart reports a fall 2 months ago). (-) driving. Ramp placed for entry into home. 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 Ind with ADLs and IADLs. 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 Highest Level of Education: College/Professional Trade Occupational Factors Life Roles: Retired, Friend Identified Strengths: Access to Healthcare Identified Barriers: Difficulty with ADLs/IADLs, Managing Pain, Fatigue/Endurance, Problem-Solving Skills Subjective: Pt stated he was feeling more fatigued today and was having a harder time trying to think Learning/Educational Needs: Discharge Plan, Equipment, Family Education/Training, Pain Management, Plan of Care, Rehabilitation Techniques and Procedures, Safety, Self Care CURRENT FUNCTIONAL STATUS: Most recent performance Current Activities of Daily Living Assist Level Additional Information Feeding Set Up Grooming Set Up Bathing Upper Body Modified Independent (in shower with use of long sponge to bathe back) Bathing Lower Body Supervision, Additional Information for standing aspects of bathing groin/sohail areas in shower; used grab bar (more content not included)... Normal [facility] Urinalysis complete panel (U )on 01-27-2023 Bilirubin Ql (U) Negative Normal Negative [facility] Comment on above: Order Comment: Speci men Type: BLOOD SPECIMEN Ordering Facility: [facility] Address: [address] [place] [address] Performed By: #### L [id number] #### [facility] CLIA [id number] [address] [place] [address] [place] Clarity (Unsp spec) Clear Normal Clear [facility] Comment on above: Order Comment: Speci men Type: BLOOD SPECIMEN Ordering Facility: [facility] Address: [address] [place] [address] Performed By: #### L [id number] #### [facility] CLIA [id number] [address] [place] [address] [place] Color (U) Yellow Normal Yellow [facility] Comment on above: Order Comment: Speci men Type: BLOOD SPECIMEN Ordering Facility: [facility] Address: [address] [place] [address] Performed By: #### L [id number] #### [facility] CLIA [id number] [address] [place] [address] [place] Glucose Test strip (U) [Mass/Vol] Negative Normal Negative [facility] Comment on above: Order Comment: Speci men Type: BLOOD SPECIMEN Ordering Facility: [facility] Address: [address] [place] [address] Performed By: #### L [id number] #### [facility] CLIA [id number] [address] [place] [address] [place] Hemoglobin Ql (U) Negative Normal Negative [facility] Comment on above: Order Comment: Speci men Type: BLOOD SPECIMEN Ordering Facility: [facility] Address: [address] [place] [address] Performed By: #### L [id number] #### [facility] CLIA [id number] [address] [place] [address] [facility] [place] Ketones Ql (U) Negative Normal Negative [facility] Comment on above: Order Comment: Speci men Type: BLOOD SPECIMEN Ordering Facility: [facility] Address: [address] [place] [address] Performed By: #### L [id number] #### [facility] CLIA [id number] [address] [place] [address] [facility] Leukocyte esterase Test strip Ql (U) Negative Normal Negative [facility] Comment on above: Order Comment: Speci men Type: BLOOD SPECIMEN Ordering Facility: [facility] Address: [address] [place] [address] Performed By: #### L [id number] #### [facility] CLIA [id number] [address] [place] [address] [facility] Nitrite Ql (U) Negative Normal Negative [facility] Comment on above: Order Comment: Speci men Type: BLOOD SPECIMEN Ordering Facility: [facility] Address: [address] [place] [address] Performed By: #### L [id number] #### [facility] CLIA [id number] [address] [place] [address] [place] pH (U) 7.0 [pH] Normal 5.0-8.0 [facility] Comment on above: Order Comment: Speci men Type: BLOOD SPECIMEN Ordering Facility: [facility] Address: [address] [place] [address] Performed By: #### L [id number] #### [facility] CLIA [id number] [address] [place] [address] [facility] Protein (U) [Mass/Vol] Negative Normal Negative [facility] Comment on above: Order Comment: Speci men Type: BLOOD SPECIMEN Ordering Facility: [facility] Address: [address] [place] [address] Performed By: #### L [id number] #### [facility] CLIA [id number] [address] [place] [id number] [facility] [place] RBC LM.HPF (Urine sed) [#/Area] 0-3 /HPF Normal 0-3 /HPF [facility] Comment on above: Order Comment: Speci men Type: BLOOD SPECIMEN Ordering Facility: [facility] Address: [address] [place] [address] Performed By: #### L [id number] #### [facility] CLIA [id number] [address] [place] [address] [place] Specific gravity (U) [Rel density] 1.015 Normal 1.005-1.030 [facility] Comment on above: Order Comment: Speci men Type: BLOOD SPECIMEN Ordering Facility: [facility] Address: [address] [place] [address] Performed By: #### L [id number] #### [facility] CLIA [id number] [address] OF [facility] Urobilinogen Ql (U) 0.2 EU/dL Normal 0.2-1.0 EU/dL [facility] Comment on above: Order Comment: Speci men Type: BLOOD SPECIMEN Ordering Facility: [facility] Address: [address] [place] [address] Performed By: #### L [id number] #### [facility] CLIA [id number] [address] [place] WBC LM.HPF (Urine sed) [#/Area] 0-5 /HPF Normal 0-5 /HPF [facility] Comment on above: Order Comment: Speci men Type: BLOOD SPECIMEN Ordering Facility: [facility] Address: [address] [place] [address] Performed By: #### L [id number] #### [facility] CLIA [id number] [address] [place] [address] [place] Basic metabolic 2000 panelon 01-26-2023 Anion gap [Moles/Vol] 7 mmol/L Low 9-18 [facility] Comment on above: Order Comment: Speci men Type: BLOOD SPECIMEN Ordering Facility: [facility] Address: [address] [place] [address] Performed By: #### 1 4334-7 #### [facility] CLIA [id number] [address] [place] Calcium [Mass/Vol] 9.4 mg/dL Normal 8.5-10.2 [facility] Comment on above: Order Comment: Speci men Type: BLOOD SPECIMEN Ordering Facility: [facility] Address: [address] [place] [address] Performed By: #### 1 4334-7 #### [facility] CLIA [id number] [address] [place] [address] [place] Chloride [Moles/Vol] 107 mmol/L High 97-105 [facility] Comment on above: Order Comment: Speci men Type: BLOOD SPECIMEN Ordering Facility: [facility] Address: [address] [place] [address] Performed By: #### 1 4334-7 #### [facility] CLIA [id number] [address] [place] [address] [place] CO2 [Moles/Vol] 28 mmol/L Normal 22-30 [facility] Comment on above: Order Comment: Speci men Type: BLOOD SPECIMEN Ordering Facility: [facility] Address: [address] [place] [address] Performed By: #### 1 4334-7 #### [facility] CLIA [id number] [address] [place] [address] [place] Creatinine [Mass/Vol] 1.00 mg/dL Normal 0.73-1.22 [facility] Comment on above: Order Comment: Speci men Type: BLOOD SPECIMEN Ordering Facility: [facility] Address: [address] [place] [address] Performed By: #### 1 4334-7 #### [facility] CLIA [id number] [address] [place] [address] [place] Creatinine and Glomerular filtration rate.predicted panel (S/P/Bld) 88 mL/min/1.73m??? Normal >=60 [facility] Comment on above: Order Comment: Speci men Type: BLOOD SPECIMEN Ordering Facility: [facility] Address: [address] [place] [address] Result Comment: Sonja mated Glomerular Filtration Rate (eGFR) is calculated using the 2021 CKD-EPI creatinine equation. This equation utilizes serum creatinine, sex, and age as parameters. The creatinine assay has traceable calibration to isotope dilution-mass spectrometry. Refer to KDIGO guidelines for clinical interpretation. In patients with unstable renal function, e.g. those with acute kidney injury, the eGFR may not accurately reflect actual GFR. Performed By: #### 1 4334-7 #### [facility] CLIA [id number] [address] [place] [address] [place] Glucose [Mass/Vol] 107 mg/dL High 74-99 [facility] Comment on above: Order Comment: Speci men Type: BLOOD SPECIMEN Ordering Facility: [facility] Address: [address] [place], [place] [address] Result Comment: The [place] Diabetes [employer] (ADA) provides guidance for cutoff values for fasting glucose and random glucose. The ADA defines fasting as no caloric intake for at least 8 hours. Fasting plasma glucose results between 100 to 125 mg/dL indicate increased risk for diabetes (prediabetes). Fasting plasma glucose results greater than or equal to 126 mg/dL meet the criteria for diagnosis of diabetes. In the absence of unequivocal hyperglycemia, results should be confirmed by repeat testing. In a patient with classic symptoms of hyperglycemia or hyperglycemic crisis, random plasma glucose results greater than or equal to 200 mg/dL meet the criteria for diagnosis of diabetes. Reference: Standards of Medical Care in Diabetes 2016, [place] [employer] Association. Diabetes Care. 2016.39(Suppl 1). Performed By: #### 1 4334-7 #### [facility] CLIA [id number] [address] [place] Potassium [Moles/Vol] 4.0 mmol/L Normal 3.7-5.1 [facility] Comment on above: Order Comment: Speci men Type: BLOOD SPECIMEN Ordering Facility: [facility] Address: [address] [place] [id number] Performed By: #### 1 4334-7 #### [facility] CLIA [id number] [address] [place] [address] [place] Sodium [Moles/Vol] 142 mmol/L Normal 136-144 [facility] Comment on above: Order Comment: Speci men Type: BLOOD SPECIMEN Ordering Facility: [facility] Address: [address] [place] [address] Performed By: #### 1 4334-7 #### [facility] CLIA [id number] [address] STATES [facility] Urea nitrogen [Mass/Vol] 5 mg/dL Low 9-24 [facility] Comment on above: Order Comment: Speci men Type: BLOOD SPECIMEN Ordering Facility: [facility] Address: [address] [place] [address] Performed By: #### 1 4334-7 #### [facility] CLIA [id number] [address] CBC panel Auto (Bld)on 01-26 Erythrocyte distribution width (RBC) [Ratio] 14.1 % Normal 11.5-15.0 [facility] Comment on above: Order Comment: Speci men Type: BLOOD SPECIMENOrdering Facility: [facility] Address: [address] [place] [address] Performed By: #### 5 8410-2 ####[facility] [id number] [address] [place] Hematocrit (Bld) [Volume fraction] 39.7 % Normal 39.0-51.0 [facility] Comment on above: Order Comment: Speci men Type: BLOOD SPECIMENOrdering Facility: [facility] Address: [address] [place] [address] Performed By: #### 5 8410-2 ####[facility] [id number] [place] [address] [place] Hemoglobin (Bld) [Mass/Vol] 12.4 g/dL Low 13.0-17.0 [facility] Comment on above: Order Comment: Speci men Type: BLOOD SPECIMENOrdering Facility: [facility] Address: [address] [place] [address] Performed By: #### 5 8410-2 ####[facility] [id number] [place] [address] [facility] MCH (RBC) [Entitic mass] 29.4 pg Normal 26.0-34.0 [facility] Comment on above: Order Comment: Speci men Type: BLOOD SPECIMENOrdering Facility: [facility] Address: [address] [place] [address] Performed By: #### 5 8410-2 ####[facility] [id number] [address] OF [facility] MCHC (RBC) [Mass/Vol] 31.2 g/dL Normal 30.5-36.0 [facility] Comment on above: Order Comment: Speci men Type: BLOOD SPECIMENOrdering Facility: [facility] Address: [address] [place] [address] Performed By: #### 5 8410-2 ####[facility]IA [id number] [address] [place] MCV (RBC) [Entitic vol] 94.1 fL Normal 80.0-100.0 [facility] Comment on above: Order Comment: Speci men Type: BLOOD SPECIMENOrdering Facility: [facility] Address: [address] [place] [address] Performed By: #### 5 8410-2 ####[facility] LABCLIA [id number] [place] [address] [place] Platelet mean volume (Bld) [Entitic vol] 11.3 fL Normal 9.0-12.7 [facility] Comment on above: Order Comment: Speci men Type: BLOOD SPECIMENOrdering Facility: [facility] Address: [address] [place] [address] Performed By: #### 5 8410-2 ####[facility] LABCLIA [id number] [address] Platelets (Bld) [#/Vol] 272 10*3/uL Normal 150-400 [facility] Comment on above: Order Comment: Speci men Type: BLOOD SPECIMENOrdering Facility: [facility] Address: [address] [place] [address] Performed By: #### 5 8410-2 ####[facility] [id number] [place] [id number] [facility] RBC (Bld) [#/Vol] 4.22 10*6/uL Normal 4.20-6.00 [facility] Comment on above: Order Comment: Speci men Type: BLOOD SPECIMENOrdering Facility: [facility] Address: [address] [place] [address] Performed By: #### 5 8410-2 ####[facility] [id number] [place] [id number] [facility] WBC (Bld) [#/Vol] 6.43 10*3/uL Normal 3.70-11.00 [facility] Comment on above: Order Comment: Speci men Type: BLOOD SPECIMENOrdering Facility: [facility] Address: [address] [place] [address] Performed By: #### 5 8410-2 ####[facility]CLIA [id number] [address] [place] SerPl-sCncon [address] [place] [Moles/Vol] 0.9 mmol/L Normal 0.6-1.2 [facility] Comment on above: Order Comment: Speci men Type: BLOOD SPECIMEN Ordering Facility: [facility] Address: [address] [place] [address] Result Comment: Refe rence ranges and high/low indicator flags are provided as general guidelines only. The treating physician must determine appropriate target levels/dosing based on the specific clinical situation. Performed By: #### 1 4334-7 #### [facility] CLIA [id number] [address] OF [facility] SOCIAL WORKon 01-26-2023 SOCIAL WORK HNO ID: [id number] Author: Audelia Carcamo LSW Service: Social Work Author Type: Mail Inserter Type: Social Work Filed: 01/26/2023 4:46 PM Note Text: SOCIAL WORK PROGRESS NOTE Name: Meliza Eastman Told patient that the only accepting [facility] agency at this time is [facility] who patient had previously. Patient said that was okay if they are willing to put up with me. Patient has a court hearing to go to and he may not be discharging home from [place]. He is waiting to find out more details. He is willing to stay 2-3 more days if appropriate. Signature: Audelia Carcamo Date: January 26, 2023 Time: 4:42 PM [facility] SOCIAL WORK HNO ID: [id number] Author: Audelia Carcamo LSW Service: Social Work Author Type: Mail Inserter Type: Social Work Filed: 01/26/2023 1:51 PM Note Text: SOCIAL WORK PROGRESS NOTE Name: Meliza Eastman Patient told DIRECTOR OF MARKETING OPERATIONS that he does not want HHC. He told OT that he had HH previously and did not find them helpful. OT asked if patient would be willing to try a different agency. Patient agreeable. Sent multiple referrals out. [facility] is the only agency willing to accept so far and state they have had patient in the past. Will send out additional referrals. Signature: Audelia Carcamo Date: January 26, 2023 Time: 1:48 PM [facility] THERAPY NTon 01-26-2023 THERAPY NT HNO ID: [id number] Author: France Mishra OTR/Shira Service: Occupational Therapy Author Type: Occupational Therapist Type: Therapy (PT/OT/Speech/Resp) Filed: 01/26/2023 12:30 PM Note Text: Summary: OT Insurance Update Occupational Therapy [facility] SERVICE DATE: 01/26/2023 SERVICE TIME: 1103 to 1204 ROOM: [place] [address] Recommended Discharge Disposition: Home OT Recommended Discharge Disposition Comments: pt declining therapy services in home Anticipated Discharge Needs: Physical Assist at Home, Supervision at Home Recommended Discharge Equipment: Grab Bars-Toilet, Walker bag/basket OT 6 Clicks Score: 20 Precautions/Activity Restrictions: Fall Risk Precaution/Activity Restriction Comments: bradykinesia, some word finding dificulties Current Hospital Course: Patient is a 57 year old male presenting to [facility] s/p hospitalization at [facility] fro AMS, confusion, history of head injury from fall, with acute kidney failure, encephalopathy, hypokalemia, and debility. Brain CT showing non-specific coarse calcifications within cerebellum. CXR (-) for acute disease. EKG (-). Renal US normal. 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 Patient now presents near baseline level of function, and can benefit from skilled interventions to return to home setting (patient declines any HHC). Reason for Hospital Admission: AMS, lithium toxicity Relevant Past Medical History: HTN, bipolar, anxiety, depression, HLD, ITB syndrome, L shoulder pain, obesity, RAY, OA R hip, primary OA B shoulders, dyspnea on exertion Response to Therapy Interventions: Good Participation in Activities, Low Activity Tolerance, Requires Additional Time to Complete Activities Assessment Comments: This patient completed basic kitchen mobility skills at a SBA level overall after instruction, but demonstrated increased fatigue and some limitations in standing tolerance for meal prep tasks. Discussed various strategies with pt re: meal prep safety and ease with pt stating understanding. Pt will require increased assistance for IADL tasks of meal prep, laundry, and cleaning/shopping, which pt states he has some availability from friends for assistance. Pt also stated he has been actively exploring [employer] for grocery delivery services. Pt wishes to go home soon; recommended home health services to follow for Nursing, OT, and PT, and pt stated he would be willing to have home health services follow him upon discharge. Recommend continued skilled OT treatment to address ADL training, standing balance/tolerance and overall strengthening, and assistance in discharge planning/caregiver instruction as needed. Seee below for specifics. Continued Skilled Needs Due to: Cognitive Deficits, Family Training Required, Functional Impairment, Safety Concerns Occupational Therapy Problem List: Education Deficit, Pain, Safety Deficits, Impaired Self Care, Decreased Activity Tolerance, Decreased Range Of Motion, Decreased Strength, Functional Mobility Impairment, Balance Impaired Treatment Interventions: Education, Self Care/Home Management, Energy Conservation Training, Strengthening, Joint Mobility, Functional Mobility Training, Balance Training Plan for Next Visit: Bathing Training, Bed Mobility, Chair/Commode Transfer Training, Dressing Training, Energy Conservation, Grooming Training, Sit to Stand Transfers, Standing Balance, Standing Tolerance, Toileting Instruction Home Environment Patient Lives With: Self/Alone (1 story home with basement) Assistance Available: PRN (friends and family) Entry To Home: Ramp Number Of Stairs To Bed/Bath: 0 Tub/Shower Type: Tub/shower combo with shower seat, HHSH, grab bars Laundry: Main floor, patient typically completes Equipment Owned: Grab Bars- Shower, Walker- Wheeled, Cane, Elevated Toilet Seat, Hand Held Shower, Shower Chair, Lift Chair, Sock Aid, Dressing Stick, Activity Aide Prior Functional Level: Within Functional Limits Prior Functional Level Comments: Patient reports ind ambulation with PRN use of cane, no falls (though chart reports a fall 2 months ago). (-) driving. Ramp placed for entry into home. 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 Ind with ADLs and IADLs. 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 [facility] THERAPY NT HNO ID: [id number] Author: Anay Munoz PT Service: Physical Therapy Author Type: Physical Therapist Type: Therapy (PT/OT/Speech/Resp) Filed: 01/26/2023 10:34 AM Note Text: Summary: PT Update Physical Therapy [facility] and update SERVICE DATE: 01/26/2023 SERVICE TIME: 933 to 1020 ROOM: [place] [address] Recommended Discharge Disposition: Home Recommended Discharge Disposition Comments: Home due to patient declining any [facility] participation. Did encourage family and/or friends to stay with patient 17/11 initially upon d/c. Anticipated Discharge Needs: Physical Assist at Home, Supervision at Home Physical Assist at Home for: Ambulation, Cleaning, Meals, Laundry, Shopping, Stairs, Medication Management, Transportation Supervision at Home due to: Decreased safety awareness Recommended Discharge Equipment: Commode-3 in 1, Grab Bars-Bed PT 6 Clicks Score: 21 Precautions/Activity Restrictions: Fall Risk Precaution/Activity Restriction Comments: bradykinesia, some word finding dificulties Current Hospital Course: Patient is a 57 year old male presenting to [facility] s/p hospitalization at [facility] fro AMS, confusion, history of head injury from fall, with acute kidney failure, encephalopathy, hypokalemia, and debility. Brain CT showing non-specific coarse calcifications within cerebellum. CXR (-) for acute disease. EKG (-). Renal US normal. 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 Patient now presents near baseline level of function, and can benefit from skilled interventions to return to home setting (patient declines any HHC). Reason for Hospital Admission: AMS, lithium toxicity Relevant Past Medical History: HTN, bipolar, anxiety, depression, HLD, ITB syndrome, L shoulder pain, obesity, RAY, OA R hip, primary OA B shoulders, dyspnea on exertion Response to Therapy Interventions: Good Participation in Activities, On-Track to Achieve Discharge Goals Assessment Comments: Nearing all PT goals including CGA on ramp. Would benefit from additional 2-3 days of PT to acheive independent level with transfers and in home ambulation for safe discharge to home alone with PRN assistance from friends. Continued Skilled Needs Due to: Functional Mobility/Skill Impairments Physical Therapy Problem List: Safety Deficits, Impaired Self Care, Decreased Activity Tolerance, Decreased Strength, Functional Mobility Impairment, Decreased Range Of Motion, Balance Impaired Treatment Interventions: Education, Self Care / Home Management, Energy Conservation Training, Joint Mobility, Strengthening, Functional Mobility Training, Balance Training, Neuromuscular Re-education, Pain Management Plan for Next Visit: Gait Training, Standing Balance, Standing Tolerance Home Environment Patient Lives With: Self/Alone (1 story home with basement) Assistance Available: PRN (friends and family) Entry To Home: Ramp Number Of Stairs To Bed/Bath: 0 Tub/Shower Type: Tub/shower combo with shower seat, HHSH, grab bars Laundry: Main floor, patient typically completes Equipment Owned: Grab Bars- Shower, Walker- Wheeled, Cane, Elevated Toilet Seat, Hand Held Shower, Shower Chair, Lift Chair, Sock Aid, Dressing Stick, Activity Aide Prior Functional Level: Within Functional Limits Prior Functional Level Comments: Patient reports ind ambulation with PRN use of cane, no falls (though chart reports a fall 2 months ago). (-) driving. Ramp placed for entry into home. 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 Ind with ADLs and IADLs. Baseline Cognition: Oriented to self, Oriented to place, Oriented to time, Oriented to situation Subjective: Hoping to go home soon. states he will have assist for shopping. Feels he needs to stick with [facility] for now. CURRENT FUNCTIONAL STATUS: Most recent performance Current Functional Mobility Assist Level Additional Information Rolling Modified Independent (uses bed rails for mobility,transfers) Supine to Sit Supervision Sit to Supine Scooting Supervision Sit to Stand Supervision Stand to Sit Supervision Bed to Chair Supervision Bed To Chair Transfer Type: Stepping Bed To Chair Transfer Equipment: Wheeled Walker Toilet/Commode Gait Supervision (CGA on ashpalt surfaces with shoes on.) Gait Device: Wheeled Walker Gait Distance (feet): 150 Stairs (N/A) Curb Step Car Transfer Blank bahena indicate activity not attempted General Deviations/Observations : Wendi decreased, Wide base of support Ramp: CGA to ascend and descend 8 foot ramp with use of WW. Balance: Static Sitting, Dynamic Sitting, Static Standing, Dynamic (more content not included)... [facility] THERAPY NTon 01-24-2023 THERAPY NT HNO ID: [id number] Author: Mariah Boone PTA Service: Physical Therapy Author Type: Performance Architect Type: Therapy (PT/OT/Speech/Resp) Filed: 01/24/2023 12:19 PM Note Text: Attestation signed by Loren Gonzales PT at 01/27/2023 8:23 AM I reviewed and agree with the documentation corresponding to this therapy visit. SIGNATURE: Loren Gonzales PT DATE: January 27, 2023 TIME: 8:23 AM Physical Therapy [facility] SERVICE DATE: 01/24/2023 SERVICE TIME: 938 to 1020 ROOM: [place] [address] Recommended Discharge Disposition: Home Recommended Discharge Disposition Comments: Home due to patient declining any [facility] participation. Did encourage family and/or friends to stay with patient 17/11 initially upon d/c. Anticipated Discharge Needs: Physical Assist at Home, Supervision at Home Physical Assist at Home for: Ambulation, Cleaning, Meals, Laundry, Shopping, Stairs, Medication Management, Transportation Supervision at Home due to: Decreased safety awareness Recommended Discharge Equipment: Commode-3 in 1, Grab Bars-Bed PT 6 Clicks Score: 21 Precautions/Activity Restrictions: Fall Risk Precaution/Activity Restriction Comments: bradykinesia, some word finding dificulties Current Hospital Course: Patient is a 57 year old male presenting to [facility] s/p hospitalization at [facility] fro AMS, confusion, history of head injury from fall, with acute kidney failure, encephalopathy, hypokalemia, and debility. Brain CT showing non-specific coarse calcifications within cerebellum. CXR (-) for acute disease. EKG (-). Renal US normal. 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 Patient now presents near baseline level of function, and can benefit from skilled interventions to return to home setting (patient declines any HHC). Reason for Hospital Admission: AMS, lithium toxicity Relevant Past Medical History: HTN, bipolar, anxiety, depression, HLD, ITB syndrome, L shoulder pain, obesity, RAY, OA R hip, primary OA B shoulders, dyspnea on exertion Response to Therapy Interventions: Good Participation in Activities Assessment Comments: very talkative, appears difficult for him to find words , appears to drift off task. Patient ambulated very slowly, with narrow base of support ,lateral shift with excessive weight in hands requiring verbal cues for device use. Physical Therapy Problem List: Safety Deficits, Impaired Self Care, Decreased Activity Tolerance, Decreased Strength, Functional Mobility Impairment, Decreased Range Of Motion, Balance Impaired Treatment Interventions: Education, Self Care / Home Management, Energy Conservation Training, Joint Mobility, Strengthening, Functional Mobility Training, Balance Training, Neuromuscular Re-education, Pain Management Plan for Next Visit: Gait Training, Standing Balance, Standing Tolerance Home Environment Patient Lives With: Self/Alone (1 story home with basement) Assistance Available: PRN (friends and family) Entry To Home: Ramp Number Of Stairs To Bed/Bath: 0 Tub/Shower Type: Tub/shower combo with shower seat, HHSH, grab bars Laundry: Main floor, patient typically completes Equipment Owned: Grab Bars- Shower, Walker- Wheeled, Cane, Elevated Toilet Seat, Hand Held Shower, Shower Chair, Lift Chair, Sock Aid, Dressing Stick, Activity Aide Prior Functional Level: Within Functional Limits Prior Functional Level Comments: Patient reports ind ambulation with PRN use of cane, no falls (though chart reports a fall 2 months ago). (-) driving. Ramp placed for entry into home. 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 Ind with ADLs and IADLs. Baseline Cognition: Oriented to self, Oriented to place, Oriented to time, Oriented to situation Subjective: Patient cooperative, agreed to ambulate and completed standing ex. CURRENT FUNCTIONAL STATUS: Most recent performance Current Functional Mobility Assist Level Additional Information Rolling Modified Independent (uses bed rails for mobility,transfers) Supine to Sit Supervision Sit to Supine Scooting Supervision Sit to Stand Stand By Assistance Stand to Sit Stand By Assistance Bed to Chair (patient declining to sit in chair) Toilet/Commode Gait Stand By Assistance Gait Device: Wheeled Walker Gait Distance (feet): 100 ft Stairs (N/A) Curb Step Car Transfer Blank bahena indicate activity not attempted General Deviations/Observations : Antalgic gait, Wendi decreased, Flexed trunk posture, Narrow Base of Support, Non-functional gait speed, Shuffling Gait, Step length decreased, UE weight bearing on assistive device excessive ( (more content not included)... [facility] NUTRITIONon 01-23-2023 NUTRITION HNO ID: [id number] Author: Regina Marie RD Service: Nutrition Therapy Author Type: Registered Dietitian Type: Nutrition Filed: 01/23/2023 2:23 PM Note Text: NUTRITION THERAPY INITIAL ASSESSMENT SERVICE DATE: 01/23/2023 SERVICE TIME: 12:15 PM Nutrition Assessment: Recommended Malnutrition Diagnosis: Mild Protein-Calorie Malnutrition In the context of: Social/Environmental Circumstance Based on: Insufficient Energy Intake Nutrition Diagnosis: Problem: Suboptimal protein/energy intake Related to: Inability to consume sufficient nutrients As evidenced by: Patient/family self-report, Food/nutrition related history Estimated kilocalorie needs: [id number] Calorie Calculation Method: 25-30 kcals/kg, [place] Body Weight Estimated protein needs (grams): 75-90 Grams protein determined by: 1.0 - 1.2 g/kg, [place] body weight Care Plan: Continue current diet Supplements: Zone Perfect Bar (BID patient dislikes Ensures/Boost products and willing to try Zone Bar) Vitamins and Minerals: Multivitamin with minerals-recommend add with having poor oral intake Labs: Potassium (continue to monitor and replace when low) Monitor and Evaluation: Meet greater than 75% of estimated needs, Monitor fluid/electrolyte balance, Monitor labs, I/Os, vital signs, weight, Monitor bowel function Discharge Recommendations: Diet Diet: Regular HPI: 57 yo male presenting to [facility] after being hospitalized at [facility] for AMS, confusion, history of head injury from fall, with CARLOS,encephalopathy, hypokalemia and debility. Intake History: Nutrition Intake Prior to Admission: Less than 50% estimated energy needs greater than or equal to 1 month (per patient reports that he was sentenced to long term for 60 days on 12/22/22, by a diving judge, and while in long term for 4-5 weeks, the food was terrible, and then while he was at the hospital in [place], the food was a little bit better, but still could not eat it, and the smells bothered him and then would cause him to throw up, and wretch. A Dietitian, he said spoke with him at [place] and was trying to explain why he could not swallow, but he reports he did not have trouble with swallowing. Current Nutrition Intake: 0-25% estimated energy needs Current Intake Over time: (today he reports that he only had 1/2 of a pancake. Agreed to try Zone Bar, but declined Ensures/Boost products, have made him sick in the past when he had. Encouraged pt to try to someone take off the dome on hot foods before serving it to him, and try to choose cold foods like sandwiches that would not have a strong odor. Diet Orders (From admission, onward) Start Ordered 01/21/23 1330 DIET REGULAR START NOW 01/21/23 1325 Anthropometrics: Height: 177.8 cm (5' 10) Weight: (!) 149 kg (328 lb 7.8 oz) Dosing Weight: 75.3 kg (166 lb 0.1 oz) Usual Weight: 158.2 kg (348 lb 12.3 oz) 12/03/2021 Usual Weight Obtained From: Chart Review Body mass index is 47.13 kg/m?. Weight change percentage over time: 6.4% wt loss over 1 year, but no prior wt hx from 2022, and this wt taken on 12/03/21 was last wt of 2021. Physical Exam: Reason NFPE not performed: Declined Potential micronutrient deficiency: Unable to determine at this time Edema/Ascites: Lower extremities Lower Extremity: Severe 3 - 4 (per clinical documentation) GI Symptoms: Anorexia Functional Status: Unable to assess Potential Signs of Inflammation: Chronic condition, Hyperglycemia HTN, HLD MNT Billing: $ Initial Assessment: 1-15 minutes SIGNATURE: Regina Marie RD PATIENT NAME: Meliza Eastman DATE: January 23, 2023 TIME: 11:01 AM [facility] THERAPY NTon 01-23-2023 THERAPY NT HNO ID: [id number] Author: Li Torres OTA/L Service: Occupational Therapy Author Type: Grounds Manager Type: Therapy (PT/OT/Speech/Resp) Filed: 01/23/2023 4:02 PM Note Text: Attestation signed by Dominique Varner OTR/L at 01/23/2023 4:21 PM I reviewed and agree with the documentation corresponding to this therapy visit. SIGNATURE: JOSE Giron DATE: January 23, 2023 TIME: 4:21 PM Occupational Therapy [facility] SERVICE DATE: 01/23/2023 SERVICE TIME: 1430 to 1530 ROOM: [place] [address] Recommended Discharge Disposition: Home OT Recommended Discharge Disposition Comments: pt declining therapy services in home Anticipated Discharge Needs: Physical Assist at Home, Supervision at Home Recommended Discharge Equipment: Grab Bars-Toilet, Walker bag/basket OT 6 Clicks Score: 15 Precautions/Activity Restrictions: Fall Risk Precaution/Activity Restriction Comments: bradykinesia, some word finding dificulties Current Hospital Course: Patient is a 57 year old male presenting to [facility] s/p hospitalization at [facility] fro AMS, confusion, history of head injury from fall, with acute kidney failure, encephalopathy, hypokalemia, and debility. Brain CT showing non-specific coarse calcifications within cerebellum. CXR (-) for acute disease. EKG (-). Renal US normal. 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 Patient now presents near baseline level of function, and can benefit from skilled interventions to return to home setting (patient declines any HHC). Reason for Hospital Admission: AMS, lithium toxicity Relevant Past Medical History: HTN, bipolar, anxiety, depression, HLD, ITB syndrome, L shoulder pain, obesity, RAY, OA R hip, primary OA B shoulders, dyspnea on exertion Response to Therapy Interventions: Cognitive Status Improvement, Good Participation in Activities, Pain, Requires Encouragement to Complete Activities Assessment Comments: Pt participating well in sponge bath level bathing this day. Pt voicing some discomfort with bathing but amenable when offered higher levels of privacy as able. Pt using dressing stick and sock aide at home for LB dressing with good use this day in session. Pt amenable to showering at another date as well as clothing management sessions. Pt educated on edema management. Pt reporting preference of sitting upright and recliner chair provided in order to maintain caesar feet elevation when seated. Pt verbalizing understanding to all education this day. Continued Skilled Needs Due to: Cognitive Deficits, Functional Impairment, Family Training Required, Safety Concerns Occupational Therapy Problem List: Education Deficit, Pain, Safety Deficits, Impaired Self Care, Decreased Activity Tolerance, Decreased Range Of Motion, Decreased Strength, Functional Mobility Impairment, Balance Impaired Treatment Interventions: Education, Self Care/Home Management, Energy Conservation Training, Strengthening, Joint Mobility, Functional Mobility Training, Balance Training Plan for Next Visit: Bathing Training, Bed Mobility, Chair/Commode Transfer Training, Dressing Training, Energy Conservation, Fall Prevention, Sit to Stand Transfers, Standing Balance, Standing Tolerance, Toileting Instruction Home Environment Patient Lives With: Self/Alone (1 story home with basement) Assistance Available: PRN (friends and family) Entry To Home: Ramp Number Of Stairs To Bed/Bath: 0 Tub/Shower Type: Tub/shower combo with shower seat, HHSH, grab bars Laundry: Main floor, patient typically completes Equipment Owned: Grab Bars- Shower, Walker- Wheeled, Cane, Elevated Toilet Seat, Hand Held Shower, Shower Chair, Lift Chair, Sock Aid, Dressing Stick, Activity Aide Prior Functional Level: Within Functional Limits Prior Functional Level Comments: Patient reports ind ambulation with PRN use of cane, no falls (though chart reports a fall 2 months ago). (-) driving. Ramp placed for entry into home. 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 Ind with ADLs and IADLs. 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 I should be able to do this on my own. Lucy (more content not included)... [facility] THERAPY NT HNO ID: [id number] Author: Mariah Boone PTA Service: Physical Therapy Author Type: Performance Architect Type: Therapy (PT/OT/Speech/Resp) Filed: 01/23/2023 10:51 AM Note Text: Attestation signed by Loren Gonzales PT at 01/24/2023 10:06 AM I reviewed and agree with the documentation corresponding to this therapy visit. SIGNATURE: Loren Gonzales, PT DATE: January 24, 2023 TIME: 10:06 AM Physical Therapy [facility] SERVICE DATE: 01/23/2023 SERVICE TIME: 48 to 1030 ROOM: [place] [address] Recommended Discharge Disposition: Home Recommended Discharge Disposition Comments: Home due to patient declining any [facility] participation. Did encourage family and/or friends to stay with patient 17/11 initially upon d/c. Anticipated Discharge Needs: Physical Assist at Home, Supervision at Home Physical Assist at Home for: Ambulation, Cleaning, Meals, Laundry, Shopping, Stairs, Medication Management, Transportation Supervision at Home due to: Decreased safety awareness Recommended Discharge Equipment: Commode-3 in 1, Grab Bars-Bed PT 6 Clicks Score: 21 Precautions/Activity Restrictions: Fall Risk Precaution/Activity Restriction Comments: bradykinesia, some word finding dificulties Current Hospital Course: Patient is a 57 year old male presenting to [facility] s/p hospitalization at [facility] fro AMS, confusion, history of head injury from fall, with acute kidney failure, encephalopathy, hypokalemia, and debility. Brain CT showing non-specific coarse calcifications within cerebellum. CXR (-) for acute disease. EKG (-). Renal US normal. 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 Patient now presents near baseline level of function, and can benefit from skilled interventions to return to home setting (patient declines any [facility]). Reason for Hospital Admission: AMS, lithium toxicity Relevant Past Medical History: HTN, bipolar, anxiety, depression, HLD, ITB syndrome, L shoulder pain, obesity, RAY, OA R hip, primary OA B shoulders, dyspnea on exertion Response to Therapy Interventions: Good Participation in Activities Continued Skilled Needs Due to: Functional Mobility/Skill Impairments Physical Therapy Problem List: Safety Deficits, Impaired Self Care, Decreased Activity Tolerance, Decreased Strength, Functional Mobility Impairment, Decreased Range Of Motion, Balance Impaired Treatment Interventions: Education, Self Care / Home Management, Energy Conservation Training, Joint Mobility, Strengthening, Functional Mobility Training, Balance Training, Neuromuscular Re-education, Pain Management Plan for Next Visit: Gait Training, Exercise Instruction/Handout, Standing Tolerance, Standing Balance Home Environment Patient Lives With: Self/Alone (1 story home with basement) Assistance Available: PRN (friends and family) Entry To Home: Ramp Number Of Stairs To Bed/Bath: 0 Tub/Shower Type: Tub/shower combo with shower seat, HHSH, grab bars Laundry: Main floor, patient typically completes Equipment Owned: Grab Bars- Shower, Walker- Wheeled, Cane, Elevated Toilet Seat, Hand Held Shower, Shower Chair, Lift Chair, Sock Aid, Dressing Stick, Activity Aide Prior Functional Level: Within Functional Limits Prior Functional Level Comments: Patient reports ind ambulation with PRN use of cane, no falls (though chart reports a fall 2 months ago). (-) driving. Ramp placed for entry into home. 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 Ind with ADLs and IADLs. Baseline Cognition: Oriented to self, Oriented to place, Oriented to time, Oriented to situation CURRENT FUNCTIONAL STATUS: Most recent performance Current Functional Mobility Assist Level Additional Information Rolling Modified Independent (uses bed rails for mobility,transfers) Supine to Sit Modified Independent Sit to Supine Scooting Stand By Assistance Sit to Stand Stand By Assistance Stand to Sit Stand By Assistance Bed to Chair (patient declining to sit in chair) Toilet/Commode Gait Stand By Assistance Gait Device: Wheeled Walker Gait Distance (feet): 50 Stairs (N/A) Curb Step Car Transfer Blank bahena indicate activity not attempted General Deviations/Observations : Antalgic gait, Wendi decreased, Flexed trunk posture, Narrow Base of Support, Non-functional gait speed, Shuffling Gait, Step length decreased, UE weight bearing on assistive device excessive (slow moving) Ramp: will practice in future sessions Balance: Static Sitting, Dynamic Sitting, Static Standing, Dynamic Standing Static Sitting Balance: Normal Patient able to maintain steady balance without h (more content not included)... Normal [facility] Basic metabolic 2000 panelon 01-22-2023 Anion gap [Moles/Vol] 10 mmol/L Normal 9-18 [facility] Comment on above: Order Comment: Speci men Type: BLOOD SPECIMEN Ordering Facility: [facility] Address: [address] [place] [address] Performed By: #### L [id number] #### [facility] CLIA [id number] [address] [place] [address] [place] Calcium [Mass/Vol] 9.3 mg/dL Normal 8.5-10.2 [facility] Comment on above: Order Comment: Speci men Type: BLOOD SPECIMEN Ordering Facility: [facility] Address: [address] [place] [address] Performed By: #### L [id number] #### [facility] CLIA [id number] [address] [place] [address] [place] Chloride [Moles/Vol] 104 mmol/L Normal 97-105 [facility] Comment on above: Order Comment: Speci men Type: BLOOD SPECIMEN Ordering Facility: [facility] Address: [address] [place] [address] Performed By: #### L [id number] #### [facility] CLIA [id number] [address] [place] [address] [place] CO2 [Moles/Vol] 25 mmol/L Normal 22-30 [facility] Comment on above: Order Comment: Speci men Type: BLOOD SPECIMEN Ordering Facility: [facility] Address: [address] [place] [address] Performed By: #### L [id number] #### [facility] CLIA [id number] [address] [place] [address] [place] Creatinine [Mass/Vol] 0.82 mg/dL Normal 0.73-1.22 [facility] Comment on above: Order Comment: Speci men Type: BLOOD SPECIMEN Ordering Facility: [facility] Address: [address] [place] [address] Performed By: #### L [id number] #### [facility] CLIA [id number] [address] [place] Creatinine and Glomerular filtration rate.predicted panel (S/P/Bld) 102 mL/min/1.73m??? Normal >=60 [facility] Comment on above: Order Comment: Speci men Type: BLOOD SPECIMEN Ordering Facility: [facility] Address: [address] [place] [address] Result Comment: Sonja mated Glomerular Filtration Rate (eGFR) is calculated using the 2020 CKD-EPI creatinine equation. This equation utilizes serum creatinine, sex, and age as parameters. The creatinine assay has traceable calibration to isotope dilution-mass spectrometry. Refer to KDIGO guidelines for clinical interpretation. In patients with unstable renal function, e.g. those with acute kidney injury, the eGFR may not accurately reflect actual GFR. Performed By: #### L [id number] #### [facility] CLIA [id number] [address] [place] [id number] [place] Glucose [Mass/Vol] 102 mg/dL High 74-99 [facility] Comment on above: Order Comment: Reza reyes Type: BLOOD SPECIMEN Ordering Facility: [facility] Address: [address] [place] [address] Result Comment: The [place] Diabetes Association (ADA) provides guidance for cutoff values for fasting glucose and random glucose. The ADA defines fasting as no caloric intake for at least 8 hours. Fasting plasma glucose results between 100 to 125 mg/dL indicate increased risk for diabetes (prediabetes). Fasting plasma glucose results greater than or equal to 126 mg/dL meet the criteria for diagnosis of diabetes. In the absence of unequivocal hyperglycemia, results should be confirmed by repeat testing. In a patient with classic symptoms of hyperglycemia or hyperglycemic crisis, random plasma glucose results greater than or equal to 200 mg/dL meet the criteria for diagnosis of diabetes. Reference: Standards of Medical Care in Diabetes 2016, [place] [employer] Association. Diabetes Care. 2016.39(Suppl 1). Performed By: #### L [id number] #### [facility] CLIA [id number] [address] [place] [address] [place] Potassium [Moles/Vol] 3.4 mmol/L Low 3.7-5.1 [facility] Comment on above: Order Comment: Reza reyes Type: BLOOD SPECIMEN Ordering Facility: [facility] Address: [address] [place] [address] Performed By: #### L [id number] #### [facility] CLIA [id number] [address] [place] [address] [place] Sodium [Moles/Vol] 139 mmol/L Normal 136-144 [facility] Comment on above: Order Comment: Reza reyes Type: BLOOD SPECIMEN Ordering Facility: [facility] Address: [address] [place] [address] Performed By: #### L [id number] #### [facility] CLIA [id number] [address] [place] [address] [facility] Urea nitrogen [Mass/Vol] 5 mg/dL Low 9-24 [facility] Comment on above: Order Comment: Reza reyes Type: BLOOD SPECIMEN Ordering Facility: [facility] Address: [address] [place] [address] Performed By: #### L [id number] #### [facility] CLIA [id number] [address] [place] [address] [facility] CASE MGT INIT MIGUELon 2022 CASE MGT INIT MIGUEL HNO ID: [id number] Author: Audelia Carcamo LSW Service: Social Work Author Type: Mail Inserter Type: Care Mgt Initial Assessment Filed: 01/22/2023 4:42 PM Note Text: Summary: Initial Assessment CARE MANAGEMENT: ASSESSMENT AND DISCHARGE PLAN SERVICE DATE: January 22, 2023 SERVICE TIME: 1640 PCP: Jj Eason MD Primary Contact: Extended Emergency Contact Information Primary Emergency Contact: Marsha Bowden Address: [address] [place] [address] Mobile Relation: Friend Admission Status: Inpatient Swing Insurance Provider: MARIEL WELSH [facility] Discharge Planning requested by: Per Department Practice Potential Transition Plans Home Advance Directives:N/A - not interested Current Living Arrangements and Support Lives with: Alone Type of Residence: Private Residence (House) Does the patient have to climb stairs at home?: No (Has ramp into home) Support: Family members, Friends/neighbors Current Services/Equipment Current Post-Acute Service(s): DME Current DME Type: Cane, Rolling walker, Elevated toilet seat Discharge Planning Patient Goal(s): Be able to go home, Better mobility [place] Explained: [place] Given: No Reason Not Given: No placements necessary Discharge Planning Participant(s): Patient Patient/Family Comments: Caregiver Assessment: No caregiver Transport at Discharge: TBD Needs Prior to Discharge: Needs Prior to Discharge: To Be Determined Post-Acute Discharge Plan: Home SIGNATURE: INA Ziegler PATIENT NAME: Meliza Eastman DATE: January 22, 2023 TIME: 4:40 PM CONTACT #: [id number] Normal [facility] CBC panel Auto (Bld)on 01-22 Erythrocyte distribution width (RBC) [Ratio] 13.4 % Normal 11.5-15.0 [facility] Comment on above: Order Comment: Reza reyes Type: BLOOD SPECIMEN Ordering Facility: [facility] Address: [address] [place] [address] Performed By: #### L [id number] #### [facility] CLIA [id number] [address] [place] [address] [place] Hematocrit (Bld) [Volume fraction] 38.0 % Low 39.0-51.0 [facility] Comment on above: Order Comment: Reza reyes Type: BLOOD SPECIMEN Ordering Facility: [facility] Address: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 [facility] Urine phencyclidine (PCP) de tectionOrdered By: Bubba Bailon on 01-14-2023 Phencyclidine Ql (U) Negative < 25 ng/mL [facility] Basophil percentageOrdered B y: Bubba Bailon on 01-13-2023 Ammonia (P) [Moles/Vol] 31.0 umol/L 11-32 [facility] Glucose Glucometer (BldC) [M ass/Vol]Ordered By: Bubba Bailon on 01-13-2023 Glucose [Mass/Vol] 119 mg/dL 74-106 [facility] Comment on above: MANAGEMENT OF PATIEN T CARE PER NURSING PROTOCOL Absolute lymphocyte countOrd ered By: Kun Garrett on 01-12-2023 Lymphocytes Auto (Unsp spec) [#/Vol] 1.63 10*3/uL 0.83-4.51 [facility] Basophil percentageOrdered B y: Kun Garrett on 01-12-2023 Basophils/100 WBC (Bld) 0.6 % 0-1 [facility] Bilirubin [Mass/Vol] 0.70 mg/dL 0.20-1.00 [facility] Comment on above: For patients on eltr ombopag therapy, use of Dimension Bath TBIL is not recommended. Chloride [Moles/Vol] 98 mmol/L 98-107 [facility] Eosinophils/100 WBC (Bld) 2.0 % 0-5 [facility] Glucose [Mass/Vol] 110 mg/dL 74-106 [facility] Comment on above: Fasting Glucose resu lt from 100 to 125 mg/dL suggests IMPAIRED HOMEOSTASIS per A.D.A. criteria. Neutrophils (Bld) [#/Vol] 9.3 10*3/uL 2.0-7.7 [facility] Neutrophils/100 WBC (Bld) 74.6 % 47-70 [facility] Potassium [Moles/Vol] 3.9 mmol/L 3.5-5.[address] [facility] Protein [Mass/Vol] 7.0 g/dL 6.4-8.2 [facility] Sodium [Moles/Vol] 132 mmol/L 136-145 [facility] WBC (Bld) [#/Vol] 12.4 10*3/uL 4.4-11.0 [facility] Blood erythrocytes count (nu mber/volume)Ordered By: Kun Garrett on 01-12-2023 RBC (Bld) [#/Vol] 5.01 10*6/uL 4.6-6.2 [facility] Blood hemoglobin measurement (mass/volume)Ordered By: Kun Garrett on 01-12-2023 Hemoglobin (Bld) [Mass/Vol] 14.9 g/dL 13.0-16.5 [facility] Blood lymphocytes/100 leukoc ytesOrdered By: Kun Garrett on 01-12-2023 Lymphocytes/100 WBC (Bld) 13.2 % 19-41 [facility] Blood monocytes/100 leukocyt esOrdered By: Kun Garrett on 01-12-2023 Monocytes/100 WBC (Bld) 8.8 % 0-10 [facility] Blood platelet mean volumeOr dered By: Kun Garrett on 01-12-2023 Platelet mean volume (Bld) [Entitic vol] 12.4 fL 6.2-12.0 [facility] Determination of erythrocyte mean corpuscular volume (MCV)Ordered By: Kun Garrett on 01-12-2023 MCV (RBC) [Entitic vol] 92.8 fL 80-94 [facility] Hematocrit Auto (Bld) [Volum e fraction]Ordered By: Kun Garrett on 01-12-2023 Hematocrit (Bld) [Volume fraction] 46.5 % 40-54 [facility] Laboratory - Chemistry and C hemistry - challengeOrdered By: Kun Garrett on 01-12-2023 ALP [Catalytic activity/Vol] 110 U/L 45-117 [facility] ALT [Catalytic activity/Vol] 40 U/L 16-61 [facility] CO2 [Moles/Vol] 25.0 mmol/L 21.0-32.0 [facility] Globulin (S) [Mass/Vol] 2.9 g/dL 2.2-4.2 [facility] Urea nitrogen/Creatinine [Mass ratio] 12.4 mg/mg 10-20 [facility] Laboratory - Hematology and Cell countsOrdered By: Kun Garrett on 01-12-2023 Erythrocyte distribution width (RBC) [Entitic vol] 44.9 fL 35.1-43.9 [facility] Erythrocyte distribution width (RBC) [Ratio] 13.2 % 11.6-14.6 [facility] Immature granulocytes/100 WBC (Bld) 0.800 % 0.0-0.9 [facility] Comment on above: IG% - Immature Granu locytes (promyelocytes, myelocytes and metamyelocytes) > 1% indicates that a LEFT SHIFT is Present. MCH (RBC) [Entitic mass] 29.7 pg 27.0-32.0 [facility] Nucleated RBC/100 WBC (Bld) [Ratio] 0 % 0-5 [facility] MCHC Auto (RBC) [Mass/Vol]Or dered By: Kun Garrett on 01-12-2023 MCHC (RBC) [Mass/Vol] 32.0 g/dL 32-[address] [facility] No Panel InformationOrdered By: Kun Garrett on 01-12-2023 Estimated GFR (MDRD) Amer 16 mL/min >60 [facility] Comment on above: GFR Calc Estimated GFR (MDRD) Non-Af Amer 13 mL/min >60 [facility] Comment on above: Non- GFR Calc Ethyl Alcohol Level < 3.0 mg/dL [facility] Comment on above: The serum:whole bloo d ethanol ratio is approximately 1.14and varies slightly with hematocrit. Medical Alcohol reference interval and critical value innon-tolerant individuals; 50 - 100 Impairment 100 Intoxication 100 - 250 Severe Poisoning 250 - 400 Deep/possible fatal coma Platelets bldOrdered By: Federico Garrett on 01-12-2023 Platelets (Bld) [#/Vol] 284 10*3/uL 150-450 [facility] Serum or plasma albumin halle urement (mass/volume)Ordered By: Kun Garrett on 01-12-2023 Albumin [Mass/Vol] 4.1 g/dL 3.2-5.0 [facility] Serum or plasma albumin/glob ulin mass ratioOrdered By: Kun Garrett on 01-12-2023 Albumin/Globulin [Mass ratio] 1.4 {ratio} 0.9-2.4 [facility] Serum or plasma calcium halle urement (mass/volume)Ordered By: Kun Garrett on 01-12-2023 Calcium [Mass/Vol] 9.3 mg/dL 8.5-10.1 [facility] Serum or plasma creatinine m easurement (mass/volume)Ordered By: Kun Garrett on 01-12-2023 Creatinine [Mass/Vol] 4.82 mg/dL 0.70-1.[address] [facility] Comment on above: The validity of the calculated GFR & GFRAA in patients over 70 years has not been determined. Clinical correlation is essential. Serum or plasma urea nitroge n measurement (mass/volume)Ordered By: Kun Garrett on 01-12-2023 Urea nitrogen [Mass/Vol] 60 mg/dL 11-11 [facility] Thin prep Papanicolaou smear with manual screeningOrdered By: Kun Garrett on 01-12-2023 Thin prep Papanicolaou smear with manual screening 17 U/L 15- [facility] Thin prep Papanicolaou smear with manual screening 9 5-15 [facility] No Panel InformationOrdered By: Dr. Eason on 10-08-2022 Insulin Level 142.0 mU/L 2.6-37.6 [facility] Serum or plasma glucose halle urement 5 hours post dose glucose (mass/volume)Ordered By: Dr. Eason on 10-08-2022 Glucose 5 Hr post dose glucose [Mass/Vol] See comment [facility] Comment on above: FASTING 110 H Col: 0 10/08/22 0652GLUCOSE TOLERANCE TEST Reference Interval Non- Adults Fasting 74 - 106 30 minutes 110 - 170 1 hour 120 - 170 2 hour 74 - 120 3 hour 74 - 106 4 hour 74 - 106 5 hour 74 - 106 GLU 1/2 HR 184 H Col: 10/08/22 0728 GLU 1 HR 171 H Col: 10/08/22 0757 GLU 2 HR 94 Col: 10/08/22 0856 GLU 3 HR 81 Col: 10/08/22 0957 GLU 4 HR 93 Col: 10/08/22 1054 GLU 5 HR 97 Col: 10/08/22 1158 Absolute lymphocyte countOrd ered By: Dr. Eason on 06-16-2022 Lymphocytes Auto (Unsp spec) [#/Vol] 2.15 10*3/uL 0.83-4.51 [facility] Basophil percentageOrdered B y: Dr. Eason on 06-16-2022 Basophils/100 WBC (Bld) 0.7 % 0-1 [facility] Bilirubin [Mass/Vol] 0.30 mg/dL 0.20-1.00 [facility] Comment on above: For patients on eltr ombopag therapy, use of Dimension Bath TBIL is not recommended. Chloride [Moles/Vol] 104 mmol/L 98-107 [facility] Eosinophils/100 WBC (Bld) 4.3 % 0-5 [facility] Glucose [Mass/Vol] 101 mg/dL 74-106 [facility] Comment on above: Fasting Glucose resu lt from 100 to 125 mg/dL suggests IMPAIRED HOMEOSTASIS per A.D.A. criteria. Neutrophils (Bld) [#/Vol] 5.1 10*3/uL 2.0-7.7 [facility] Neutrophils/100 WBC (Bld) 60.7 % 47-70 [facility] Potassium [Moles/Vol] 4.1 mmol/L 3.5-5.[address] [facility] Protein [Mass/Vol] 7.1 g/dL 6.4-8.2 [facility] Sodium [Moles/Vol] 140 mmol/L 136-145 [facility] Testosterone [Mass/Vol] 255 ng/dL 264-916 [facility] Comment on above: Adult male reference interval is based on a population ofhealthy nonobese males (BMI <30) between 19 and 39 yearsold. [email or web address]. JCEM 2017,102;1168-2034. PMID:[id number]. WBC (Bld) [#/Vol] 8.3 10*3/uL 4.4-11.0 [facility] Blood erythrocytes count (nu mber/volume)Ordered By: Dr. Eason on 06-16-2022 RBC (Bld) [#/Vol] 4.60 10*6/uL 4.6-6.2 [facility] Blood hemoglobin measurement (mass/volume)Ordered By: Dr. Eason on 06-16-2022 Hemoglobin (Bld) [Mass/Vol] 13.8 g/dL 13.0-16.5 [facility] Blood lymphocytes/100 leukoc ytesOrdered By: Dr. Eason on 06-16-2022 Lymphocytes/100 WBC (Bld) 25.8 % 19-41 [facility] Blood monocytes/100 leukocyt esOrdered By: Dr. Eason on 06-16-2022 Monocytes/100 WBC (Bld) 7.8 % 0-10 [facility] Blood platelet mean volumeOr dered By: Dr. Eason on 06-16-2022 Platelet mean volume (Bld) [Entitic vol] 11.2 fL 6.2-12.0 [facility] Determination of erythrocyte mean corpuscular volume (MCV)Ordered By: Dr. Eason on 06-16-2022 MCV (RBC) [Entitic vol] 96.1 fL 80-94 [facility] Free testosterone percentage Ordered By: Dr. Eason on 06-16-2022 Testosterone Free/Testosterone.tot al [Mass fraction] 1.90 % 1.50-4.20 [facility] Comment on above: Performed at: [address] [id number] Director: Leonard Oliver PhD, Phone: [phone] at: [facility] [id number] Director: Gerson Day MD, Phone: [phone] Hematocrit Auto (Bld) [Volum e fraction]Ordered By: Dr. Eason on 06-16-2022 Hematocrit (Bld) [Volume fraction] 44.2 % 40-54 [facility] Laboratory - Chemistry and C hemistry - challengeOrdered By: Dr. Eason on 06-16-2022 ALP [Catalytic activity/Vol] 61 U/L 45-117 [facility] ALT [Catalytic activity/Vol] 61 U/L 16-61 [facility] CO2 [Moles/Vol] 30.0 mmol/L 21.0-32.0 [facility] Globulin (S) [Mass/Vol] 3.1 g/dL 2.2-4.2 [facility] Urea nitrogen/Creatinine [Mass ratio] 11.2 mg/mg 10-20 [facility] Laboratory - Hematology and Cell countsOrdered By: Dr. Eason on 06-16-2022 Erythrocyte distribution width (RBC) [Entitic vol] 45.8 fL 35.1-43.9 [facility] Erythrocyte distribution width (RBC) [Ratio] 12.9 % 11.6-14.6 [facility] Immature granulocytes/100 WBC (Bld) 0.700 % 0.0-0.9 [facility] Comment on above: IG% - Immature Granu locytes (promyelocytes, myelocytes and metamyelocytes) > 1% indicates that a LEFT SHIFT is Present. MCH (RBC) [Entitic mass] 30.0 pg 27.0-32.0 [facility] Nucleated RBC/100 WBC (Bld) [Ratio] 0 % 0-5 [facility] MCHC Auto (RBC) [Mass/Vol]Or dered By: Dr. Eason on 06-16-2022 MCHC (RBC) [Mass/Vol] 31.2 g/dL 32-[address] [facility] No Panel InformationOrdered By: Dr. Eason on 06-16-2022 Estimated GFR (MDRD) Amer 101 mL/min >60 [facility] Comment on above: GFR Calc Estimated GFR (MDRD) Non-Af Amer 84 mL/min >60 [facility] Comment on above: Non- GFR Calc Platelets bldOrdered By: Dr. Esaon on 06-16-2022 Platelets (Bld) [#/Vol] 262 10*3/uL 150-450 [facility] Serum or plasma albumin halle urement (mass/volume)Ordered By: Dr. Eason on 06-16-2022 Albumin [Mass/Vol] 4.0 g/dL 3.2-5.0 [facility] Serum or plasma albumin/glob ulin mass ratioOrdered By: Dr. Eason on 06-16-2022 Albumin/Globulin [Mass ratio] 1.3 {ratio} 0.9-2.4 [facility] Serum or plasma calcium halle urement (mass/volume)Ordered By: Dr. Eason on 06-16-2022 Calcium [Mass/Vol] 9.2 mg/dL 8.5-10.1 [facility] Serum or plasma creatinine m easurement (mass/volume)Ordered By: Dr. Eason on 06-16-2022 Creatinine [Mass/Vol] 0.98 mg/dL 0.70-1.[address] [facility] Comment on above: The validity of the calculated GFR & GFRAA in patients over 70 years has not been determined. Clinical correlation is essential. Serum or plasma testosterone free measurement (mass/volume)Ordered By: Dr. Eason on 06-16-2022 Testosterone Free [Mass/Vol] 4.85 ng/dL 5.00-21.00 [facility] Serum or plasma urea nitroge n measurement (mass/volume)Ordered By: Dr. Eason on 06-16-2022 Urea nitrogen [Mass/Vol] 11 mg/dL 7-18 [facility] Thin prep Papanicolaou smear with manual screeningOrdered By: Dr. Eason on 06-16-2022 Thin prep Papanicolaou smear with manual screening 35 U/L 15-37 [facility] Thin prep Papanicolaou smear with manual screening 6 5-15 [facility] No Panel InformationOrdered By: Dr. Badillo on 05-29-2022 Nasal Screen MRSA/MSSA [facility] INR in Blood by Coagulation assayOrdered By: Dr. Badillo on 05-27-2022 INR Coag (Bld) [Relative time] 1.0 {INR} [facility] Laboratory - Chemistry and C hemistry - challengeOrdered By: Dr. Cotton on 05-27-2022 Magnesium [Mass/Vol] 2.3 mg/dL 1.6-2.6 [facility] Laboratory - CoagulationOrde red By: Dr. Badillo on 05-27-2022 aPTT Coag (Bld) [Time] 27.6 s 24.1-36.2 [facility] PT Coag (PPP) [Time] 12.8 s 11.7-14.9 [facility] No Panel InformationOrdered By: Dr. Badillo on 05-27-2022 Fructosamine 253 umol/L 0-285 [facility] Comment on above: Published reference interval for apparently healthysubjects between age 20 and 60 is 205 - 285 umol/L and in apoorly controlled diabetic population is 228 - 563 umol/Lwith a mean of 396 umol/L.Performed at: [facility] Director: Leonard Oliver PhD, Phone: [phone] Whole blood hemoglobin A1c/t otal hemoglobin ratio (mass fraction)Ordered By: Dr. Badillo on 05-27-2022 HbA1c (Bld) [Mass fraction] 5.7 % 3.8-5.6 [facility] Comment on above: Normal < 5.7 % Predi abetic 5.7 - 6.4 % Diabetic >or= 6.5 % Please note range changes. Absolute lymphocyte countOrd ered By: Dr. Eason on 05-20-2022 Lymphocytes Auto (Unsp spec) [#/Vol] 2.37 10*3/uL 0.83-4.51 [facility] Basophil percentageOrdered B y: Dr. Eason on 05-20-2022 Basophils/100 WBC (Bld) 0.8 % 0-1 [facility] Bilirubin [Mass/Vol] 0.30 mg/dL 0.20-1.00 [facility] Comment on above: For patients on eltr ombopag therapy, use of Dimension [place] TBIL is not recommended. Chloride [Moles/Vol] 104 mmol/L 98-107 [facility] Eosinophils/100 WBC (Bld) 3.3 % 0-5 [facility] Glucose [Mass/Vol] 83 mg/dL 74-106 [facility] Neutrophils (Bld) [#/Vol] 5.7 10*3/uL 2.0-7.7 [facility] Neutrophils/100 WBC (Bld) 62.0 % 47-70 [facility] Potassium [Moles/Vol] 4.0 mmol/L 3.5-5.[address] [facility] Protein [Mass/Vol] 6.9 g/dL 6.4-8.2 [facility] Sodium [Moles/Vol] 140 mmol/L 136-145 [facility] WBC (Bld) [#/Vol] 9.2 10*3/uL 4.4-11.0 [facility] Blood erythrocytes count (nu mber/volume)Ordered By: Dr. Eason on 05-20-2022 RBC (Bld) [#/Vol] 4.96 10*6/uL 4.6-6.2 [facility] Blood hemoglobin measurement (mass/volume)Ordered By: Dr. Eason on 05-20-2022 Hemoglobin (Bld) [Mass/Vol] 15.0 g/dL 13.0-16.5 [facility] Blood lymphocytes/100 leukoc ytesOrdered By: Dr. Eason on 05-20-2022 Lymphocytes/100 WBC (Bld) 25.7 % 19-41 [facility] Blood monocytes/100 leukocyt esOrdered By: Dr. Eason on 05-20-2022 Monocytes/100 WBC (Bld) 7.4 % 0-10 [facility] Blood platelet mean volumeOr dered By: Dr. Eason on 05-20-2022 Platelet mean volume (Bld) [Entitic vol] 11.1 fL 6.2-12.0 [facility] Determination of erythrocyte mean corpuscular volume (MCV)Ordered By: Dr. Eason on 05-20-2022 MCV (RBC) [Entitic vol] 93.3 fL 80-94 [facility] Hematocrit Auto (Bld) [Volum e fraction]Ordered By: Dr. Eason on 05-20-2022 Hematocrit (Bld) [Volume fraction] 46.3 % 40-54 [facility] Laboratory - Chemistry and C hemistry - challengeOrdered By: Dr. Eason on 05-20-2022 ALP [Catalytic activity/Vol] 69 U/L 45-117 [facility] ALT [Catalytic activity/Vol] 53 U/L 16-61 [facility] CO2 [Moles/Vol] 28.0 mmol/L 21.0-32.0 [facility] Globulin (S) [Mass/Vol] 2.9 g/dL 2.2-4.2 [facility] Urea nitrogen/Creatinine [Mass ratio] 17.2 mg/mg 10-20 [facility] Laboratory - Hematology and Cell countsOrdered By: Dr. Eason on 05-20-2022 Erythrocyte distribution width (RBC) [Entitic vol] 43.8 fL 35.1-43.9 [facility] Erythrocyte distribution width (RBC) [Ratio] 12.8 % 11.6-14.6 [facility] Immature granulocytes/100 WBC (Bld) 0.800 % 0.0-0.9 [facility] Comment on above: IG% - Immature Granu locytes (promyelocytes, myelocytes and metamyelocytes) > 1% indicates that a LEFT SHIFT is Present. MCH (RBC) [Entitic mass] 30.2 pg 27.0-32.0 [facility] Nucleated RBC/100 WBC (Bld) [Ratio] 0 % 0-5 [facility] MCHC Auto (RBC) [Mass/Vol]Or dered By: Dr. Eason on 05-20-2022 MCHC (RBC) [Mass/Vol] 32.4 g/dL 32-[address] [facility] No Panel InformationOrdered By: Dr. Eason on 05-20-2022 Estimated GFR (MDRD) Amer 100 mL/min >60 [facility] Comment on above: GFR Calc Estimated GFR (MDRD) Non-Af Amer 83 mL/min >60 [facility] Comment on above: Non- GFR Calc [place] Level 0.70 mmol/L 0.60-1.20 [facility] Thyroid Stimulating Hormone (TSH) 2.66 uIU/mL 0.358-3.74 [facility] Platelets bldOrdered By: Dr. Eason on 05-20-2022 Platelets (Bld) [#/Vol] 283 10*3/uL 150-450 [facility] Serum or plasma albumin halle urement (mass/volume)Ordered By: Dr. Eason on 05-20-2022 Albumin [Mass/Vol] 4.0 g/dL 3.2-5.0 [facility] Serum or plasma albumin/glob ulin mass ratioOrdered By: Dr. Eason on 05-20-2022 Albumin/Globulin [Mass ratio] 1.4 {ratio} 0.9-2.4 [facility] Serum or plasma calcium halle urement (mass/volume)Ordered By: Dr. Eason on 05-20-2022 Calcium [Mass/Vol] 9.1 mg/dL 8.5-10.1 [facility] Serum or plasma creatinine m easurement (mass/volume)Ordered By: Dr. Eason on 05-20-2022 Creatinine [Mass/Vol] 0.99 mg/dL 0.70-1.[address] [facility] Comment on above: The validity of the calculated GFR & GFRAA in patients over 70 years has not been determined. Clinical correlation is essential. Serum or plasma urea nitroge n measurement (mass/volume)Ordered By: Dr. Eason on 05-20-2022 Urea nitrogen [Mass/Vol] 17 mg/dL 7-18 [facility] Thin prep Papanicolaou smear with manual screeningOrdered By: Dr. Eason on 05-20-2022 Thin prep Papanicolaou smear with manual screening 23 U/L 15-37 [facility] Thin prep Papanicolaou smear with manual screening 8 5-15 [facility] LITHIUMon 04-05-2022 [place] [Moles/Vol] 0.79 mmol/L Normal 0.60 - 1.20 [facility] Comment on above: Performed By: #### V ALPR #### [place] [address] COMPREHENSIVE PANELon 2021 Albumin [Mass/Vol] 4.6 g/dL Normal 3.4 - 5.0 [facility] Comment on above: Performed By: #### V ALPR #### [address] [address] ALP [Catalytic activity/Vol] 48 U/L Normal 33 - 120 [facility] Comment on above: Performed By: #### V ALPR #### [address] [address] ALT [Catalytic activity/Vol] 35 U/L Normal 10 - 52 [facility] Comment on above: Result Comment: Denise ents treated with Sulfasalazine may generate falsely decreased results for ALT. Performed By: #### V ALPR #### [address] [address] Anion gap [Moles/Vol] 10 mmol/L Normal 10 - 20 [facility] Comment on above: Performed By: #### V ALPR #### [address] [address] AST [Catalytic activity/Vol] 25 U/L Normal 9 - 39 [facility] Comment on above: Performed By: #### V ALPR #### [address] [address] Bilirubin [Mass/Vol] 0.4 mg/dL Normal 0.0 - 1.2 [facility] [place] Comment on above: Performed By: #### V ALPR #### [address] [address] Calcium [Mass/Vol] 9.5 mg/dL Normal 8.6 - 10.3 [facility] Comment on above: Performed By: #### V ALPR #### [address] [address] Chloride [Moles/Vol] 102 mmol/L Normal 98 - 107 [facility] [place] Comment on above: Performed By: #### V ALPR #### [address] [address] Creatinine [Mass/Vol] 1.19 mg/dL Normal 0.50 - 1.30 [facility] Comment on above: Performed By: #### V ALPR #### [address] [address] GFR/1.73 sq M.predicted among non-blacks MDRD (S/P/Bld) [Vol rate/Area] 71 mL/min/{1.73_m2} Normal >90 [facility] Comment on above: Result Comment: CALC ULATIONS OF ESTIMATED GFR ARE PERFORMED USING THE 2020 CKD-EPI STUDY REFIT EQUATION WITHOUT THE RACE VARIABLE FOR THE IDMS-TRACEABLE CREATININE METHODS. https://jasn.asnjournals.org/content/early/ASN.647712 7134 Performed By: #### V ALPR #### [address] [address] Glucose [Mass/Vol] 84 mg/dL Normal 74 - 99 [facility] Comment on above: Performed By: #### V ALPR #### [address] [address] HCO3 (Bld) [Moles/Vol] 29 mmol/L Normal 21 - 32 [facility] Comment on above: Performed By: #### V ALPR #### [address] [address] Potassium [Moles/Vol] 4.3 mmol/L Normal 3.5 - 5.3 [facility] Comment on above: Performed By: #### V ALPR #### [address] [address] Protein [Mass/Vol] 6.9 g/dL Normal 6.4 - 8.2 [facility] Comment on above: Performed By: #### V ALPR #### [address] [address] Sodium [Moles/Vol] 137 mmol/L Normal 136 - 145 [facility] Comment on above: Performed By: #### V ALPR #### [address] [address] Urea nitrogen [Mass/Vol] 26 mg/dL High 6 - 23 [facility] Comment on above: Performed By: #### V ALPR #### [address] [address] TSHon 04-04-2022 TSH Qn 3.01 m[IU]/L Normal 0.44 - 3.98 [facility] Comment on above: Result Comment: TSH testing is performed using different testing methodology at [facility] than at other [facility]. Direct result comparisons should only be made within the same method. Performed By: #### V ALPR #### [address] [address] LITHIUMon 02-04-2022 [place] [Moles/Vol] 0.46 mmol/L Low 0.60 - 1.20 [facility] Comment on above: Performed By: #### L ITH #### [facility] [address] [place] [address] CBC AND DIFFERENTIALon 02-03 Basophils (Bld) [#/Vol] 0.10 10*3/uL Normal 0.00 - 0.10 [facility] Comment on above: Performed By: #### V ALPR #### [address] [address] Basophils/100 WBC (Bld) 0.7 % Normal 0.0 - 2.0 [facility] Comment on above: Performed By: #### V ALPR #### [address] [address] Eosinophils (Bld) [#/Vol] 0.30 10*3/uL Normal 0.00 - 0.70 [facility] Comment on above: Performed By: #### V ALPR #### [address] [address] Eosinophils/100 WBC (Bld) 3.0 % Normal 0.0 - 6.0 [facility] Comment on above: Performed By: #### V ALPR #### [address] [address] Erythrocyte distribution width (RBC) [Ratio] 14.0 % Normal 11.5 - 14.5 [facility] Comment on above: Performed By: #### V ALPR #### [address] [address] Hematocrit (Bld) [Volume fraction] 46.0 % Normal 41.0 - 52.0 [facility] Comment on above: Performed By: #### V ALPR #### [address] [address] Hemoglobin (Bld) [Mass/Vol] 15.2 g/dL Normal 13.5 - 17.5 [facility] Comment on above: Performed By: #### V ALPR #### [address] [address] Lymphocytes (Bld) [#/Vol] 2.50 10*3/uL Normal 1.20 - 4.80 [facility] Comment on above: Performed By: #### V ALPR #### [address] [address] Lymphocytes/100 WBC (Bld) 28.9 % Normal 13.0 - 44.0 [facility] Comment on above: Performed By: #### V ALPR #### [address] [address] MCHC (RBC) [Mass/Vol] 33.0 g/dL Normal 32.0 - 36.0 [facility] Comment on above: Performed By: #### V ALPR #### [address] [address] MCV (RBC) [Entitic vol] 91 fL Normal 80 - 100 [facility] Comment on above: Performed By: #### V ALPR #### [address] [address] Monocytes (Bld) [#/Vol] 0.80 10*3/uL Normal 0.10 - 1.00 [facility] Comment on above: Performed By: #### V ALPR #### [address] [address] Monocytes/100 WBC (Bld) 9.6 % Normal 2.0 - 10.0 [facility] Comment on above: Performed By: #### V ALPR #### [address] [address] Neutrophils (Bld) [#/Vol] 5.10 10*3/uL Normal 1.20 - 7.70 [facility] Comment on above: Result Comment: Perc ent differential counts (%) should be interpreted in the context of the absolute cell counts (cells/L). Performed By: #### V ALPR #### [address] [address] Neutrophils/100 WBC (Bld) 57.8 % Normal 40.0 - 80.0 [facility] Comment on above: Performed By: #### V ALPR #### [address] [address] NUCLEATED RBC 0.1 /100 WBC Normal [facility] Comment on above: Performed By: #### V ALPR #### [address] [address] Platelets (Bld) [#/Vol] 251 10*3/uL Normal 150 - 450 [facility] Comment on above: Performed By: #### V ALPR #### [address] [address] RBC 5.08 x10E12/L Normal 4.50 - 5.90 [facility] Comment on above: Performed By: #### V ALPR #### [address] [address] WBC (Bld) [#/Vol] 8.8 10*3/uL Normal 4.4 - 11.3 [facility] Comment on above: Performed By: #### V ALPR #### [place] [id number] COMPREHENSIVE PANELon 2021 Albumin [Mass/Vol] 4.6 g/dL Normal 3.4 - 5.0 [facility] Comment on above: Performed By: #### C MP #### [address] [address] ALP [Catalytic activity/Vol] 54 U/L Normal 33 - 120 [facility] Comment on above: Performed By: #### C MP #### [address] [address] ALT [Catalytic activity/Vol] 32 U/L Normal 10 - 52 [facility] Comment on above: Result Comment: Denise ents treated with Sulfasalazine may generate falsely decreased results for ALT. Performed By: #### C MP #### [place] [id number] Anion gap [Moles/Vol] 10 mmol/L Normal 10 - 20 [facility] Comment on above: Performed By: #### C MP #### [address] [address] AST [Catalytic activity/Vol] 24 U/L Normal 9 - 39 [facility] Comment on above: Performed By: #### C MP #### [address] [address] Bilirubin [Mass/Vol] 0.5 mg/dL Normal 0.0 - 1.2 [facility] [place] Comment on above: Performed By: #### C MP #### [address] [address] Calcium [Mass/Vol] 9.7 mg/dL Normal 8.6 - 10.3 [facility] Comment on above: Performed By: #### C MP #### [address] [address] Chloride [Moles/Vol] 101 mmol/L Normal 98 - 107 [facility] [place] Comment on above: Performed By: #### C MP #### [address] [address] Creatinine [Mass/Vol] 1.13 mg/dL Normal 0.50 - 1.30 [facility] Comment on above: Performed By: #### C MP #### [address] [address] GFR/1.73 sq M.predicted among non-blacks MDRD (S/P/Bld) [Vol rate/Area] 76 mL/min/{1.73_m2} Normal >90 [facility] Comment on above: Result Comment: CALC ULATIONS OF ESTIMATED GFR ARE PERFORMED USING THE 2020 CKD-EPI STUDY REFIT EQUATION WITHOUT THE RACE VARIABLE FOR THE IDMS-TRACEABLE CREATININE METHODS. https://jasn.asnjournals.org/content/early/ASN.510032 6481 Performed By: #### C MP #### [address] [address] Glucose [Mass/Vol] 101 mg/dL High 74 - 99 [facility] Comment on above: Performed By: #### C MP #### [address] [address] HCO3 (Bld) [Moles/Vol] 33 mmol/L High 21 - 32 [facility] Comment on above: Performed By: #### C MP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 Phone: Erythrocyte distribution width (RBC) [Ratio] 14.0 % See Below [facility] Work Phone: Comment on above: Reference Range: 11. 5 - 14.5 Hematocrit (Bld) [Volume fraction] 42.8 % See Below [facility] Work Phone: Comment on above: Reference Range: 41. 0 - 52.0 Hemoglobin (Bld) [Mass/Vol] 14.6 g/dL See Below [facility] Work Phone: Comment on above: Reference Range: 13. 5 - 17.5 Lymphocytes/100 WBC (Bld) 35.2 % See Below [facility] Work Phone: Comment on above: Reference Range: 13. 0 - 44.0 MCHC (RBC) [Mass/Vol] 34.2 g/dL See Below [facility] Work Phone: Comment on above: Reference Range: 32. 0 - 36.0 MCV (RBC) [Entitic vol] 87 fL 80 - 100 [facility] Work Phone: Monocytes/100 WBC (Bld) 10.4 % 2.0 - 10.0 [facility] Work Phone: Neutrophils/100 WBC (Bld) 51.6 % See Below [facility] [place] Work Phone: Comment on above: Reference Range: 40. 0 - 80.0 Platelets (Bld) [#/Vol] 227 10*3/uL 150 - 450 [facility] [place] Work Phone: RBC (Bld) [#/Vol] 4.90 {x10E12/L} See Below [facility] [place] Work Phone: Comment on above: Reference Range: 4.5 0 - 5.90 WBC (Bld) [#/Vol] 6.4 10*3/uL 4.4 - 11.3 [facility] [place] Work Phone: Complete Blood Count + Differential 0.10 {x10E9/L} See Below [facility] [place] Work Phone: Comment on above: Reference Range: 0.0 0 - 0.10 Reference Range: 0.0 0 - 0.70 Complete Blood Count + Differential 0.70 {x10E9/L} See Below [facility] [place] Work Phone: Comment on above: Reference Range: 0.1 0 - 1.00 Complete Blood Count + Differential 2.30 {x10E9/L} See Below [facility] [place] Work Phone: Comment on above: Reference Range: 1.2 0 - 4.80 Complete Blood Count + Differential 3.30 {x10E9/L} See Below [facility] [place] Work Phone: Comment on above: Reference Range: 1.2 0 - 7.70 Percent differential counts (%) should be interpreted in the context of the absolute cell counts (cells/L). Complete Blood Count + Differential 1.8 % 0.0 - 6.0 [facility] [place] Work Phone: Complete Blood Count + Differential 0.2 {/100_WBC} [facility] [place] Work Phone: HEMOGLOBIN A1Con 07-31-2021 Glucose [Mass/Vol] 134 mg/dL Normal [facility] Comment on above: Performed By: #### H BA1E #### [address] [place] [address] HbA1c (Bld) [Mass fraction] 6.3 % Abnormal [facility] Comment on above: Result Comment: Diag nosis of Diabetes-Adults Non-Diabetic: < or = 5.6% Increased risk for developing diabetes: 5.7-6.4% Diagnostic of diabetes: > or = 6.5% . Monitoring of Diabetes Age (y) Therapeutic Goal (%) Adults: >18 <7.0 Pediatrics: 13-18 <7.5 7-12 <8.0 0- 6 7.5-8.5 [employer]. Diabetes Care 33(S1), Apr 2009. Performed By: #### H BA1E #### [address] [address] Hemoglobin A1Con 07-31-2021 Glucose [Mass/Vol] 134 mg/dL [facility] Work Phone: HbA1c (Bld) [Mass fraction] 6.3 % Abnormal [facility] [place] Work Phone: Comment on above: Diagnosis of Diabete s-Adults Non-Diabetic: < or = 5.6% Increased risk for developing diabetes: 5.7-6.4% Diagnostic of diabetes: > or = 6.5%. Monitoring of Diabetes Age (y) Therapeutic Goal (%) Adults: >18 <7.0 Pediatrics: 13-18 <7.5 7-12 <8.0 0- 6 7.5-8.5 [employer] [place]. Diabetes Care 33(S1), Apr 2009. LIPID PANEL (CORONARY RISK 2 )on 07-31-2021 Cholesterol [Mass/Vol] 181 mg/dL Normal 0 - 199 [facility] Comment on above: Result Comment: . AGE DESIRABLE BORDERLINE HIGH HIGH 0-19 Y 0 - 169 170 - 199 >/= 200 20-24 Y 0 - 189 190 - 224 >/= 225 >24 Y 0 - 199 200 - 239 >/= 240 All ranges are based on fasting samples. Specific therapeutic targets will vary based on patient-specific cardiac risk. . Pediatric guidelines reference:Pediatrics 2011, 128(S5). Adult guidelines reference: NCEP ATPIII Guidelines, EUNICE 2001, 258:2486-97 . Venipuncture immediately after or during the administration of Metamizole may lead to falsely low results. Testing should be performed immediately prior to Metamizole dosing. Performed By: #### L IPID #### [address] [address] Cholesterol in HDL [Mass/Vol] 42.0 mg/dL Normal [facility] Comment on above: Result Comment: . AGE VERY LOW LOW NORMAL HIGH 0-19 Y < 35 < 40 40-45 ---- 20-24 Y ---- < 40 >45 ---- >24 Y ---- < 40 40-60 >60 . Performed By: #### L IPID #### [address] [address] Cholesterol in LDL [Mass/Vol] 115 mg/dL High 0 - 99 [facility] Comment on above: Result Comment: . NEAR BORD AGE DESIRABLE OPTIMAL HIGH HIGH VERY HIGH 0-19 Y 0 - 109 --- 110-129 >/= 130 ---- 20-24 Y 0 - 119 --- 120-159 >/= 160 ---- >24 Y 0 - 99 100-129 130-159 160-189 >/=190 . Performed By: #### L IPID #### [address] [address] Cholesterol in VLDL [Mass/Vol] 24 mg/dL Normal 0 - 40 [facility] Comment on above: Performed By: #### L IPID #### [address] [address] Cholesterol.total/Cho lesterol in HDL [Mass ratio] 4.3 {ratio} Normal [facility] Comment on above: Result Comment: REF VALUES DESIRABLE < 3.4 HIGH RISK > 5.0 Performed By: #### L IPID #### [address] [address] Triglyceride [Mass/Vol] 118 mg/dL Normal 0 - 149 [facility] Comment on above: Result Comment: . AGE DESIRABLE BORDERLINE HIGH HIGH VERY HIGH 0 D-90 D 19 - 174 ---- ---- ---- 91 D- 9 Y 0 - 74 75 - 99 >/= 100 ---- 10-19 Y 0 - 89 90 - 129 >/= 130 ---- 20-24 Y 0 - 114 115 - 149 >/= 150 ---- >24 Y 0 - 149 150 - 199 200- 499 >/= 500 . Venipuncture immediately after or during the administration of Metamizole may lead to falsely low results. Testing should be performed immediately prior to Metamizole dosing. Performed By: #### L IPID #### [facility] [address] [place] [address] Laboratory - Chemistry and C hemistry - challengeon 07-31-2021 Albumin BCP dye [Mass/Vol] 4.3 g/dL 3.4 - 5.0 [facility] [employer] Work Phone: Albumin Ql (U) <7.0 See Below [facility] [place] Work Phone: Comment on above: Reference Range: Not Established Albumin/Creatinine DL <= 20 mg/L (U) [Mass ratio] SEE COMMENT 0.0 - 30.0 [facility] Work Phone: Comment on above: One or more analytes used in this calculation is outside of the analytical measurement range.Calculation cannot be performed. ALP [Catalytic activity/Vol] 50 U/L 33 - 120 [facility] [place] Work Phone: ALT With P-5'-P [Catalytic activity/Vol] 25 U/L 10 - 52 [facility] Work Phone: Comment on above: Patients treated wit h Sulfasalazine may generate falsely decreased results for ALT. Anion gap [Moles/Vol] 9 mmol/L below low threshold 10 - 20 [facility] [place] Work Phone: AST With P-5'-P [Catalytic activity/Vol] 23 U/L 9 - 39 [facility] Work Phone: Bilirubin [Mass/Vol] 0.5 mg/dL 0.0 - 1.2 [facility] [place] Work Phone: Calcium [Mass/Vol] 8.9 mg/dL 8.6 - 10.3 [facility] [place] Work Phone: Chloride [Moles/Vol] 103 mmol/L 98 - 107 [facility] [place] Work Phone: CO2 [Moles/Vol] 31 mmol/L 21 - 32 [facility] [place] Work Phone: Creatinine (U) [Mass/Vol] 156.0 mg/dL See Below [facility] [place] Work Phone: Comment on above: Reference Range: 20. 0 - 370.0 Creatinine [Mass/Vol] 0.94 mg/dL See Below [facility] [place] Work Phone: Comment on above: Reference Range: 0.5 0 - 1.30 Glucose [Mass/Vol] 90 mg/dL 74 - 99 [facility] Work Phone: Potassium [Moles/Vol] 4.4 mmol/L 3.5 - 5.3 [facility] [place] Work Phone: Protein [Mass/Vol] 6.5 g/dL 6.4 - 8.2 [facility] [place] Work Phone: Sodium [Moles/Vol] 139 mmol/L 136 - 145 [facility] [place] Work Phone: Urea nitrogen [Mass/Vol] 21 mg/dL 6 - 23 [facility] [place] Work Phone: Lipid Panelon 07-31-2021 Cholesterol [Mass/Vol] 181 mg/dL 0 - 199 [facility] [employer] Work Phone: Comment on above: . AGE DESIRABLE BORD SUJATA HIGH HIGH 0-19 Y 0 - 169 170 - 199 >/= 200 20-24 Y 0 - 189 190 - 224 >/= 225 >24 Y 0 - 199 200 - 239 >/= 240 All ranges are based on fasting samples. Specific therapeutic targets will vary based on patient-specific cardiac risk.. Pediatric guidelines reference:Pediatrics 2011, 128(S5). Adult guidelines reference: NCEP ATPIII Guidelines, EUNICE 2001, 258:2486-97. Venipuncture immediately after or during the administration of Metamizole may lead to falsely low results. Testing should be performed immediately prior to Metamizole dosing. Cholesterol in HDL [Mass/Vol] 42.0 mg/dL [facility] [employer] Work Phone: Comment on above: . AGE VERY LOW LOW N ORMAL HIGH 0-19 Y < 35 < 40 40-45 ---- 20- 24 Y ---- < 40 >45 ---- >24 Y ---- < 40 40-60 >60. Cholesterol in LDL [Mass/Vol] 115 mg/dL above high threshold 0 - 99 [facility] [employer] Work Phone: Comment on above: . NEAR BORD AGE BEL RABLE OPTIMAL HIGH HIGH VERY HIGH 0-19 Y 0 - 109 --- 110-129 >/= 130 ---- 20-24 Y 0 - 119 --- 120-159 >/= 160 ---- >24 Y 0 - 99 100-129 130-159 160-189 >/=190. Cholesterol.total/Cho lesterol in HDL [Mass ratio] 4.3 {ratio} [facility] [employer] Work Phone: Comment on above: REF VALUESDESIRABLE < 3.4HIGH RISK > 5.0 Triglyceride [Mass/Vol] 118 mg/dL 0 - 149 [facility] [employer] Work Phone: Comment on above: . AGE DESIRABLE BORD SUJATA HIGH HIGH VERY HIGH 0 D-90 D 19 - 174 ---- ---- ----91 D- 9 Y 0 - 74 75 - 99 >/= 100 ---- 10-19 Y 0 - 89 90 - 129 >/= 130 ---- 20-24 Y 0 - 114 115 - 149 >/= 150 ---- >24 Y 0 - 149 150 - 199 200- 499 >/= 500. Venipuncture immediately after or during the administration of Metamizole may lead to falsely low results. Testing should be performed immediately prior to Metamizole dosing. Lipid Panel 24 mg/dL 0 - 40 [facility] Work Phone: No Panel Informationon 07-31 >90 >90 [facility] Work Phone: Comment on above: CALCULATIONS OF SONJA MATED GFR ARE PERFORMED USING THE 2020 CKD-EPI STUDY REFIT EQUATION WITHOUT THE RACE VARIABLE FOR THE IDMS-TRACEABLE CREATININE METHODS.https://jasn.asnjournals.org/content/early// N.7123214596 TSHon 07-31-2021 TSH Qn 1.66 m[IU]/L Normal 0.44 - 3.98 [facility] Comment on above: Result Comment: TSH testing is performed using different testing methodology at [facility] than at other [facility]. Direct result comparisons should only be made within the same method. Performed By: #### T SH2 #### [place] [address] TSH - Thyroid Stimulating Ho rmone, Serumon 07-31-2021 TSH Qn 1.66 m[IU]/L See Below [facility] Work Phone: Comment on above: Reference Range: 0.4 4 - 3.98 TSH testing is performed using different testing methodology at [facility] than at other [facility]. Direct result comparisons should only be made within the same method. VALPROIC ACIDon 07-31-2021 VALPROIC ACID 71 ug/mL Normal 50 - 100 [facility] Comment on above: Performed By: #### V ALPR #### [facility] [address] [place] [address] Valproic Acid Level, Serumon 07-31-2021 Valproate [Mass/Vol] 71 ug/mL 50 - 100 [facility] Work Phone: XR ANKLE RIGHT 3+ VIEWS (STA NDARD)on 08-15-2020 XR ANKLE RIGHT 3+ VIEWS (STANDARD) EXAMINATION: XR ANKLE RIGHT 3+ VIEWS (STANDARD) 08/15/2020 10:57 am HISTORY: ORDERING SYSTEM PROVIDED HISTORY: Post-operative state, TECHNOLOGIST PROVIDED HISTORY: Injury/Trauma Reason for exam: post-op f/u Cancer History: u Surgery, RadiationHistory: u Encounter Type: Subsequent/Follow-up Mechanism of injury: post-op f/u ORDERING SYSTEM PROVIDED DIAGNOSIS CODES: Z98.890 Post-operative state COMPARISON: 06/20/2020 IMPRESSION: FINDINGS/ 1. No significant change since 06/20/2020. 2. 2 screws remain fusing the distal tibiofibular syndesmosis, without visualized hardware complications. Additional small metallic screw/anchor is noted just distal to this in the lateral aspect of the distal tibial epiphysis. 3. Fragmented enthesophytes or foci of mature heterotopic ossification are again noted unchanged extending distally from the medial malleolus of the tibia, and adjacent to the posterior malleolus. 4. Prominent calcaneal enthesophytes remain at the insertion sites of the Achilles tendon and plantar fascia. 5. Mild osteoarthrosis is suspected in the 2nd and 3rd tarsometatarsal joints. 6. Soft tissue swelling is noted in the ankle. No abnormal gas bubbles are seen. Workstation ID: [id number] Dictated by: BLANCA EDWARDS on ThuAug 15, 2020 8:33:52 PM EDT Transcribed by: BLANCA EDWARDS on ThuAug 15, 2020 8:33:52 PM EDT Finalized by: BLANCA EDWARDS on ThuAug 15, 2020 8:33:52 PM EDT Normal [facility] Comment on above: Order Comment: Injur y/Trauma or Illness?:Injury/Trauma How long have you had these symptoms (acute/chronic)?:Unknown Reason for exam?:post-op f/u History of cancer?:u Surgeries, chemotherapy, or radiation?:u Type of Exam?:Subsequent/Follow-up Mechanism of injury?:post-op f/u XR ANKLE RIGHT 3+ VIEWS (STA NDARD)on 06-20-2020 XR ANKLE RIGHT 3+ VIEWS (STANDARD) EXAMINATION: XR ANKLE RIGHT 3+ VIEWS (STANDARD) 06/20/2020 2:03 pm HISTORY: ORDERING SYSTEM PROVIDED HISTORY: Post-operative state, TECHNOLOGIST PROVIDED HISTORY: Injury/Trauma Reason for exam: post-op f/u Cancer History: u Surgery, RadiationHistory: u Encounter Type: Subsequent/Follow-up Mechanism of injury: post-op f/u ORDERING SYSTEM PROVIDED DIAGNOSIS CODES: Z98.890 Post-operative state COMPARISON: 05/23/2020 FINDINGS: Stable postsurgical changes from syndesmotic reconstruction. No acute fracture identified. Hardware is intact. Stable ossific bodies along the medial malleolus. The talar dome is intact. The midfoot appears congruent. Distal Achilles enthesophyte inferior calcaneal spur noted. Diffuse soft tissue swelling about the lower extremity is nonspecific and unchanged. IMPRESSION: Postsurgical changes without acute osseous abnormality. Workstation ID: [id number] Dictated by: SHAYLA SANDERSON on ThuJun 20, 2020 4:39:44 PM EST Transcribed by: SHAYLA SANDERSON on ThuJun 20, 2020 4:39:44 PM EST Finalized by: SHAYLA SANDERSON on ThuJun 20, 2020 4:39:44 PM EST Normal [facility] Comment on above: Order Comment: Injur y/Trauma or Illness?:Injury/Trauma How long have you had these symptoms (acute/chronic)?:Acute Reason for exam?:post-op f/u History of cancer?:u Surgeries, chemotherapy, or radiation?:u Type of Exam?:Subsequent/Follow-up Mechanism of injury?:post-op f/u XR ANKLE RIGHT 3+ VIEWS (STA NDARD)on 05-23-2020 XR ANKLE RIGHT 3+ VIEWS (STANDARD) EXAMINATION: XR ANKLE RIGHT 3+ VIEWS (STANDARD) 05/23/2020 2:34 pm HISTORY: ORDERING SYSTEM PROVIDED HISTORY: Fracture, TECHNOLOGIST PROVIDED HISTORY: Injury/Trauma Reason for exam: POST-OP F/U Cancer History: u Surgery, RadiationHistory: u Encounter Type: Subsequent/Follow-up Mechanism of injury: POST-OP F/U ORDERING SYSTEM PROVIDED DIAGNOSIS CODES: T14.8XXA Fracture COMPARISON: 04/24/2020 FINDINGS: BONES: Stable fixation of the tibiofibular syndesmosis using 2 screws, the screws protrude beyond the medial cortex of the distal tibia, stable. No mechanical failure. Corticated calcific densities inferior to the medial malleolus, stable, remote injury. Moderate bulky enthesopathic spurring of the calcaneus at the insertion Achilles tendon and plantar aponeurosis. SOFT TISSUES: Moderate diffuse soft tissue swelling EFFUSION: Small joint effusion OTHER: Negative. IMPRESSION: Stable exam with no acute fracture or mechanical failure Workstation ID: [id number] Dictated by: DARA BRIGGS on ThuMay 24, 2020 8:07:36 AM EST Transcribed by: DARA BRIGGS on ThuMay 24, 2020 8:07:36 AM EST Finalized by: DARA BRIGGS on ThuMay 24, 2020 8:07:36 AM EST Normal [facility] Comment on above: Order Comment: Injur y/Trauma or Illness?:Injury/Trauma How long have you had these symptoms (acute/chronic)?:Acute Reason for exam?:POST-OP F/U History of cancer?:u Surgeries, chemotherapy, or radiation?:u Type of Exam?:Subsequent/Follow-up Mechanism of injury?:POST-OP F/U XR ANKLE RIGHT 3+ VIEWS (STA NDARD)on 04-24-2020 XR ANKLE RIGHT 3+ VIEWS (STANDARD) EXAMINATION: XR ANKLE RIGHT 3+ VIEWS (STANDARD) 04/24/2020 1:45 pm HISTORY: ORDERING SYSTEM PROVIDED HISTORY: Fracture, TECHNOLOGIST PROVIDED HISTORY: Injury/Trauma Reason for exam: post-op f/u Cancer History: u Surgery, RadiationHistory: u Encounter Type: Unknown Mechanism of injury: post-op f/u ORDERING SYSTEM PROVIDED DIAGNOSIS CODES: T14.8XXA Fracture COMPARISON: None FINDINGS: There are postsurgical changes from prior syndesmotic repair. The hardware appears intact. No acute displaced fracture is identified. Well corticated ossific bodies along the inferior margin of the medial malleolus suggest prior trauma/ligamentous injury. The ankle mortise is intact. The talar dome is intact. The midfoot appears congruent. Large distal Achilles enthesophyte inferior calcaneal spur noted. There is diffuse soft tissue swelling about the lower extremity. IMPRESSION: No acute osseous abnormality identified. Workstation ID: [id number] Dictated by: SHAYLA SANDERSON on ThuApr 24, 2020 4:08:00 PM EST Transcribed by: SHAYLA SANDERSON on ThuApr 24, 2020 4:08:00 PM EST Finalized by: SHAYLA SANDERSON on ThuApr 24, 2020 4:08:00 PM EST Normal [facility] Comment on above: Order Comment: Injur y/Trauma or Illness?:Injury/Trauma How long have you had these symptoms (acute/chronic)?:Unknown Reason for exam?:post-op f/u History of cancer?:u Surgeries, chemotherapy, or radiation?:u Type of Exam?:Unknown Mechanism of injury?:post-op f/u BASIC METABOLIC PANELon 12- Anion gap [Moles/Vol] 10 mmol/L Normal 10 - 20 [facility] Comment on above: Performed By: #### B MP ####[place] [address] Calcium [Mass/Vol] 8.4 mg/dL Low 8.6 - 10.3 [facility] Comment on above: Performed By: #### B MP ####[address] [address] Chloride [Moles/Vol] 101 mmol/L Normal 98 - 107 [facility] Comment on above: Performed By: #### B MP ####[address] [address] Creatinine [Mass/Vol] 0.88 mg/dL Normal 0.50 - 1.30 [facility] Comment on above: Performed By: #### B MP ####[address] [address] GFR- AM. >60 Normal >60 [facility] Comment on above: Result Comment: CALC ULATIONS OF ESTIMATED GFR ARE PERFORMED USING THE MDRD STUDY EQUATION FOR THE IDMS-TRACEABLE CREATININE METHODS. CLIN CHEM 2007;53:766-72 Performed By: #### B MP ####[address] [address] GFR-NON AM. >60 Normal >60 [facility] Comment on above: Performed By: #### B MP ####[address] [address] Glucose [Mass/Vol] 99 mg/dL Normal 74 - 99 [facility] Comment on above: Performed By: #### B MP ####[address] [address] HCO3 (Bld) [Moles/Vol] 30 mmol/L Normal 21 - 32 [facility] Comment on above: Performed By: #### B MP ####[address] [address] Potassium [Moles/Vol] 3.9 mmol/L Normal 3.5 - 5.3 [facility] Comment on above: Performed By: #### B MP ####[address] [address] Sodium [Moles/Vol] 137 mmol/L Normal 136 - 145 [facility] Comment on above: Performed By: #### B MP ####[address] [address] Urea nitrogen [Mass/Vol] 18 mg/dL Normal 6 - 23 [facility] Comment on above: Performed By: #### B MP ####[address] [address] BASIC METABOLIC PANELon 12-04 30-2019 Anion gap [Moles/Vol] 10 mmol/L Normal 10 - 20 [facility] Comment on above: Performed By: #### B MP #### [address] [address] Calcium [Mass/Vol] 8.4 mg/dL Low 8.6 - 10.3 [facility] Comment on above: Performed By: #### B MP #### [address] [address] Chloride [Moles/Vol] 99 mmol/L Normal 98 - 107 [facility] Comment on above: Performed By: #### B MP #### [address] [address] Creatinine [Mass/Vol] 0.89 mg/dL Normal 0.50 - 1.30 [facility] Comment on above: Performed By: #### B MP #### [address] [address] GFR- AM. >60 Normal >60 [facility] Comment on above: Result Comment: CALC ULATIONS OF ESTIMATED GFR ARE PERFORMED USING THE MDRD STUDY EQUATION FOR THE IDMS-TRACEABLE CREATININE METHODS. CLIN CHEM 2007;53:766-72 Performed By: #### B MP #### [address] [address] GFR-NON AM. >60 Normal >60 [facility] Comment on above: Performed By: #### B MP #### [address] [address] Glucose [Mass/Vol] 96 mg/dL Normal 74 - 99 [facility] Comment on above: Performed By: #### B MP #### [address] [address] HCO3 (Bld) [Moles/Vol] 32 mmol/L Normal 21 - 32 [facility] Comment on above: Performed By: #### B MP #### [address] [address] Potassium [Moles/Vol] 3.9 mmol/L Normal 3.5 - 5.3 [facility] Comment on above: Performed By: #### B MP #### [address] [address] Sodium [Moles/Vol] 137 mmol/L Normal 136 - 145 [facility] Comment on above: Performed By: #### B MP #### [address] [address] Urea nitrogen [Mass/Vol] 22 mg/dL Normal 6 - 23 [facility] Comment on above: Performed By: #### B MP #### [address] [address] Daily Progress Note-Medicine on 04-09-2020 Daily Progress Note-Medicine Service: Medicine Subjective Data: MELIZA EASTMAN is a 54 year old Male who is Hospital Day # 4 and POD #2 for 1. Ankle Fracture ORIF; He reports his right ankle pain is a 3-4/10 intensity. The pain is localized to the inside of the right ankle. He did find that the Toradol helped with pain management. He denies any abdominal pain, nausea, or vomiting. He reports ongoing leg swelling and nocturia. He continues to work with physical therapy but is struggling. Objective Data: Objective Information: T PRBPSpO2 [id number]% Date/Time04/09 7: 7: 7: 7: 7:15 Range(36.5C - 36.8C ) (61 - 63 ) (18 - 20 ) (128 - 144 )/ (65 - 89 ) (92% - 94% ) Pain reported at 04/09 7:15: 2 = Mild Physical Exam by System: Constitutional: Morbidly obese, sitting up in the bedside chair with no distress or tachypnea Respiratory/Thorax: Decreased breath sounds but adequate air exchange with no rales or wheezing Cardiovascular: Distant, regular heart sounds with a controlled rate no murmurs or gallops Extremities: His right leg is in a cast from his mid foot just distal to the right knee with some swelling of the toes Neurological: He is alert and oriented x3 with intact movement of his right toes Psychological: Flat affect but normal mood and interactive when engaged Skin: He has chronic venous stasis changes in the left pretibial area as well as in the right leg near the thigh as well as the right toes Medication: Medications: Continuous Medications --------- 1. Lactated Ringers Infusion: 1000 mL IntraVenous 2. Lactated Ringers Infusion: 1000 mL IntraVenous Scheduled Medications --------- 1. amLODIPine (NORVASC): 5 mg Oral Daily 2. buPROPion (WELLBUTRIN XL) Extended Release (24 hour): 150 mg Oral Every 24 Hours 3. Carvedilol: 25 mg Oral 2 Times a Day 4. Divalproex Sodium Del Rel (Depakote): 1500 mg Oral Every Night 5. Enoxaparin SubCutaneous: 60 mg SubCutaneous Every 12 Hours 6. hydroCHLOROthiazide: 25 mg Oral Daily 7. lamoTRIgine (LAMICTAL): 400 mg Oral At Bedtime 8. Midazolam Injectable: 1 mg IntraVenous Push Once 9. Polyethylene Glycol: 17 gram(s) Oral 2 Times a Day PRN Medications --------- 1. Acetaminophen: 650 mg Oral Every 4 Hours 2. Acetaminophen: 650 mg Oral Every 4 Hours 3. Dextromethorphan - guaiFENesin Oral Liquid: 10 mL Oral Every 4 Hours 4. Docusate: 100 mg Oral 2 Times a Day 5. Ketorolac Injectable: 30 mg IntraVenous Push Every 6 Hours 6. Labetalol Injectable: 5 mg IntraVenous Push Once 7. Magnesium Hydroxide -Al Hydrox -Simethicone Oral Liquid: 30 mL Oral Every 6 Hours 8. Morphine Injectable: 2 mg IntraVenous Push Every 4 Hours 9. Ondansetron Injectable: 4 mg IntraVenous Push Every 6 Hours 10. oxyCODONE 5 mg - Acetaminophen 325 m tablet(s) Oral Every 4 Hours 11. Promethazine IV Piggy Back: 6.25 mg IntraVenous Piggyback Once Recent Lab Results: Results: I have reviewed these laboratory results: Basic Metabolic Panel 09-Apr-2020 04:58:00 ResultValue Glucose, Serum 96 NA 137 K 3.9 CL 99 Bicarbonate, Serum 32 Anion Gap, Serum 10 BUN 22 CREAT 0.89 GFR-Non >60 GFR- >60 Calcium, Serum 8.4 L Hemoglobin 09-Apr-2020 04:58:00 ResultValue HGB 11.9 L Assessment and Plan: Code Status: Code StatusFull Code Assessment: 54-year-old with a right ankle fracture status post ORIF with chronic hypertension, bipolar disorder, resolved hypokalemia, and morbid obesity with untreated sleep apnea. - He will continue with Toradol as needed for pain-his use has diminished over time. - I will continue to monitor his BMP with his NSAID use and morbid obesity. - He will continue with physical therapy and work on his mobility. - He did request assessment for possible ECF rehabilitation as he does not feel safe walking independently. - He will be nonweightbearing for the next 4 weeks with follow-up with orthopedics in 2 weeks. - He will continue with his amlodipine, Coreg, and HCTZ for his hypertension. - Outpatient sleep testing would be appropriate with his signs and symptoms of sleep apnea. - He could try nasal pillows as he was intolerant of facial CPAP therapy in the past. - His BMP will also assess his electrolytes with his HCTZ use and previous hypokalemia. - He will continue with his bupropion, Depakote, and Lamictal for his bipolar disorder. - He has Lovenox ordered for DVT prophylaxis. - He is a full code. Patient does not feel safe returning home with his nonweightbearing status and BMI of 50 with his difficulty in mobility. social services analyst will forward the physical therapy notes to the insurance company to assess a precertification for possible transfer to a local extended care facility. Of note, the patient did have r (more content not included)... Normal [facility] 04-09-2020 Hemoglobin (Bld) [Mass/Vol] 11.9 g/dL Low 13.5 - 17.5 [facility] Comment on above: Performed By: #### H GB ####[address] [address] BASIC METABOLIC PANEL 03-27 Anion gap [Moles/Vol] 10 mmol/L Normal 10 - 20 [facility] Comment on above: Performed By: #### B MP #### [address] [address] Calcium [Mass/Vol] 8.4 mg/dL Low 8.6 - 10.3 [facility] Comment on above: Performed By: #### B MP #### [address] [address] Chloride [Moles/Vol] 99 mmol/L Normal 98 - 107 [facility] Comment on above: Performed By: #### B MP #### [address] [address] Creatinine [Mass/Vol] 0.79 mg/dL Normal 0.50 - 1.30 [facility] Comment on above: Performed By: #### B MP #### [address] [address] GFR- AM. >60 Normal >60 [facility] Comment on above: Result Comment: CALC ULATIONS OF ESTIMATED GFR ARE PERFORMED USING THE MDRD STUDY EQUATION FOR THE IDMS-TRACEABLE CREATININE METHODS. CLIN CHEM 2007;53:766-72 Performed By: #### B MP #### [address] [address] GFR-NON AM. >60 Normal >60 [facility] Comment on above: Performed By: #### B MP #### [place] [id number] Glucose [Mass/Vol] 136 mg/dL High 74 - 99 [facility] Comment on above: Performed By: #### B MP #### [place] [id number] HCO3 (Bld) [Moles/Vol] 31 mmol/L Normal 21 - 32 [facility] Comment on above: Performed By: #### B MP #### [place] [id number] Potassium [Moles/Vol] 3.3 mmol/L Low 3.5 - 5.3 [facility] Comment on above: Performed By: #### B MP #### [place] [id number] Sodium [Moles/Vol] 137 mmol/L Normal 136 - 145 [facility] Comment on above: Performed By: #### B MP #### [address] [address] Urea nitrogen [Mass/Vol] 22 mg/dL Normal 6 - 23 [facility] Comment on above: Performed By: #### B MP #### [address] [address] CBC AND DIFFERENTIALon 04-08 Basophils (Bld) [#/Vol] 0.00 10*3/uL Normal 0.00 - 0.10 [facility] Comment on above: Performed By: #### C BCDF #### [address] [address] Basophils/100 WBC (Bld) 0.2 % Normal 0.0 - 2.0 [facility] Comment on above: Performed By: #### C BCDF #### [address] [address] Eosinophils (Bld) [#/Vol] 0.00 10*3/uL Normal 0.00 - 0.70 [facility] Comment on above: Performed By: #### C BCDF #### [address] [address] Eosinophils/100 WBC (Bld) 0.2 % Normal 0.0 - 6.0 [facility] Comment on above: Performed By: #### C BCDF #### [address] [address] Erythrocyte distribution width (RBC) [Ratio] 14.2 % Normal 11.5 - 14.5 [facility] Comment on above: Performed By: #### C BCDF #### [address] [address] Hematocrit (Bld) [Volume fraction] 36.0 % Low 41.0 - 52.0 [facility] Comment on above: Performed By: #### C BCDF #### [address] [address] Hemoglobin (Bld) [Mass/Vol] 11.9 g/dL Low 13.5 - 17.5 [facility] Comment on above: Performed By: #### C BCDF #### [address] [address] Lymphocytes (Bld) [#/Vol] 2.10 10*3/uL Normal 1.20 - 4.80 [facility] Comment on above: Performed By: #### C BCDF #### [address] [address] Lymphocytes/100 WBC (Bld) 21.1 % Normal 13.0 - 44.0 [facility] Comment on above: Performed By: #### C BCDF #### [address] [address] MCHC (RBC) [Mass/Vol] 33.1 g/dL Normal 32.0 - 36.0 [facility] Comment on above: Performed By: #### C BCDF #### [address] [address] MCV (RBC) [Entitic vol] 93 fL Normal 80 - 100 [facility] Comment on above: Performed By: #### C BCDF #### [address] [address] Monocytes (Bld) [#/Vol] 1.10 10*3/uL High 0.10 - 1.00 [facility] Comment on above: Performed By: #### C BCDF #### [address] [address] Monocytes/100 WBC (Bld) 11.0 % Normal 2.0 - 10.0 [facility] Comment on above: Performed By: #### C BCDF #### [address] [address] Neutrophils (Bld) [#/Vol] 6.60 10*3/uL Normal 1.20 - 7.70 [facility] Comment on above: Result Comment: Perc ent differential counts (%) should be interpreted in the context of the absolute cell counts (cells/L). Performed By: #### C BCDF #### [address] [address] Neutrophils/100 WBC (Bld) 67.5 % Normal 40.0 - 80.0 [facility] Comment on above: Performed By: #### C BCDF #### [address] [address] NUCLEATED RBC 0.1 /100 WBC Normal [facility] Comment on above: Performed By: #### C BCDF #### [address] [address] Platelets (Bld) [#/Vol] 299 10*3/uL Normal 150 - 450 [facility] Comment on above: Performed By: #### C BCDF #### [address] [address] RBC 3.88 x10E12/L Low 4.50 - 5.90 [facility] Comment on above: Performed By: #### C BCDF #### [facility] [address] [place] [address] WBC (Bld) [#/Vol] 9.7 10*3/uL Normal 4.4 - 11.3 [facility] Comment on above: Performed By: #### C BCDF #### [place] [address] [place] [address] Daily Progress Note-Medicine on 04-08-2020 Daily Progress Note-Medicine Service: Medicine Subjective Data: MELIZA EASTMAN is a 54 year old Male who is Hospital Day # 3 and POD #1 for 1. Ankle Fracture ORIF; He continues to report on pain in the right ankle. He had significant difficulty with mobility with physical therapy. He is concerned about safety going home with the few steps in his home. He denies any chest pain, shortness of breath, or headache. He did report an understanding of his nonweightbearing status. Objective Data: Objective Information: T PRBPSpO2 [id number]% Date/Time04/08 7: 7: 7: 7: 7:47 Range(36.9C - 37C ) (59 - 67 ) (16 - 20 ) (121 - 159 )/ (64 - 94 ) (90% - 94% ) As of 07-Apr-2020 16:38:00, patient is on 2 L/min of oxygen via nasal cannula. Highest temp of 37 C was recorded at 04/08 7:47 Pain reported at 04/08 10:20: 8 = Severe Physical Exam by System: Constitutional: Morbidly obese, sitting up in the bedside chair with no acute distress or tachypnea Respiratory/Thorax: Decreased breath sounds but adequate air exchange with no rales or wheezing Cardiovascular: Distant, regular heart sounds with a controlled rate and no murmurs or gallops Gastrointestinal: His abdomen is morbidly obese but soft and nontender with normal bowel sounds Musculoskeletal: His right leg is in a cast from the ankle through the leg below the knee. He had intact toe movement on the right Neurological: Alert and oriented x3 and able to reposition himself in the chair independently Psychological: Normal affect and mood Skin: He has chronic venous stasis changes in the pretibial area on the left as well as the toes and distal thigh on the right leg Medication: Medications: Continuous Medications --------- 1. Lactated Ringers Infusion: 1000 mL IntraVenous 2. Lactated Ringers Infusion: 1000 mL IntraVenous Scheduled Medications --------- 1. amLODIPine (NORVASC): 5 mg Oral Daily 2. buPROPion (WELLBUTRIN XL) Extended Release (24 hour): 150 mg Oral Every 24 Hours 3. Carvedilol: 25 mg Oral 2 Times a Day 4. Divalproex Sodium Del Rel (Depakote): 1500 mg Oral Every Night 5. Enoxaparin SubCutaneous: 60 mg SubCutaneous Every 12 Hours 6. hydroCHLOROthiazide: 25 mg Oral Daily 7. Ketorolac Injectable: 30 mg IntraVenous Push Once 8. lamoTRIgine (LAMICTAL): 400 mg Oral At Bedtime 9. Midazolam Injectable: 1 mg IntraVenous Push Once 10. Polyethylene Glycol: 17 gram(s) Oral 2 Times a Day PRN Medications --------- 1. Acetaminophen: 650 mg Oral Every 4 Hours 2. Acetaminophen: 650 mg Oral Every 4 Hours 3. Dextromethorphan - guaiFENesin Oral Liquid: 10 mL Oral Every 4 Hours 4. Docusate: 100 mg Oral 2 Times a Day 5. Labetalol Injectable: 5 mg IntraVenous Push Once 6. Magnesium Hydroxide -Al Hydrox -Simethicone Oral Liquid: 30 mL Oral Every 6 Hours 7. Morphine Injectable: 2 mg IntraVenous Push Every 4 Hours 8. Ondansetron Injectable: 4 mg IntraVenous Push Every 6 Hours 9. oxyCODONE 5 mg - Acetaminophen 325 m tablet(s) Oral Every 4 Hours 10. Promethazine IV Piggy Back: 6.25 mg IntraVenous Piggyback Once Recent Lab Results: Results: I have reviewed these laboratory results: Complete Blood Count + Differential 08-Apr-2020 05:39:00 ResultValue White Blood Cell Count 9.7 Nucleated Erythrocyte Count 0.1 Red Blood Cell Count 3.88 L HGB 11.9 L HCT 36.0 L MCV 93 MCHC 33.1 PLT 299 RDW-CV 14.2 Neutrophil % 67.5 Lymphocyte % 21.1 Monocyte % 11.0 Eosinophil % 0.2 Basophil % 0.2 Neutrophil Count 6.60 Lymphocyte Count 2.10 Monocyte Count 1.10 H Eosinophil Count 0.00 Basophil Count 0.00 Basic Metabolic Panel 08-Apr-2020 05:39:00 ResultValue Glucose, Serum 136 H NA 137 K 3.3 L CL 99 Bicarbonate, Serum 31 Anion Gap, Serum 10 BUN 22 CREAT 0.79 GFR-Non >60 GFR- >60 Calcium, Serum 8.4 L Assessment and Plan: Code Status: Code StatusFull Code Assessment: 54-year-old with a right ankle fracture status post ORIF with chronic hypertension, hyperlipidemia, bipolar disorder, hypokalemia, and morbid obesity with untreated sleep apnea. - Patient continues to have considerable pain and compromised mobility with his right ankle fracture. - I will add a dose of Toradol and assess his response to the anti-inflammatory in place of the opiates. - He will continue with physical therapy in the context of his non-weight bearing status. - The patient is concerned that he may not be able to return home given his limited mobility. - He will continue with his amlodipine, Coreg, and HCTZ for his chronic hypertension. - I will supplement his potassium through the oral route and follow his BMP daily. - He will continue with his polyethylene glycol 17 g twice daily-his last BM was 2 days ago. - He was intole (more content not included)... Normal [facility] Daily Progress Note-Tania barakat 04-08-2020 Daily Progress Note-Orthopaedics Service: Orthopaedics Subjective Data: MELIZA EASTMAN is a 54 year old Male who is Hospital Day # 3 and POD #1 for 1. Ankle Fracture ORIF; Additional Information: Patient is complaining of some right ankle pain as expected. He has swelling into the calf as before but no swelling of his toes and seems to move them well. Objective Data: Objective Information: T PRBPSpO2 [id number]% Date/Time04/08 7: 7: 7: 7: 7:47 Range(36.8C - 37C ) (59 - 67 ) (16 - 20 ) (121 - 161 )/ (64 - 94 ) (90% - 94% ) As of 07-Apr-2020 16:38:00, patient is on 2 L/min of oxygen via nasal cannula. Highest temp of 37 C was recorded at 04/08 7:47 Pain reported at 04/08 5:53: sleeping Recent Lab Results: Results: CBC: 04/08/2020 05:39 \ Hgb / \ 11.9 L / WBC Plt 9.7 299 / Hct \ / 36.0 L \ RBC: 3.88 L MCV: 93 Neutrophil %: 67.5 BMP: 04/08/2020 05:39 NA+ Cl- BUN / 137 99 22 / --------- Glucose ---- 136 H K+ HCO3- Creat \ 3.3 L 31 0.79 \ Calcium : 8.4 L Anion Gap : 10 I have reviewed these laboratory results: Complete Blood Count + Differential 08-Apr-2020 05:39:00 ResultValue White Blood Cell Count 9.7 Nucleated Erythrocyte Count 0.1 Red Blood Cell Count 3.88 L HGB 11.9 L HCT 36.0 L MCV 93 MCHC 33.1 PLT 299 RDW-CV 14.2 Neutrophil % 67.5 Lymphocyte % 21.1 Monocyte % 11.0 Eosinophil % 0.2 Basophil % 0.2 Neutrophil Count 6.60 Lymphocyte Count 2.10 Monocyte Count 1.10 H Eosinophil Count 0.00 Basophil Count 0.00 Basic Metabolic Panel 08-Apr-2020 05:39:00 ResultValue Glucose, Serum 136 H NA 137 K 3.3 L CL 99 Bicarbonate, Serum 31 Anion Gap, Serum 10 BUN 22 CREAT 0.79 GFR-Non >60 GFR- >60 Calcium, Serum 8.4 L Assessment and Plan: Code Status: Code StatusFull Code Assessment: Patient has had ORIF of his right ankle. He should be nonweightbearing for approximately 4 weeks I will plan on seeing him in the office in 2 weeks to remove his sutures. Plans are for a skilled nursing as he lives by himself and with his morbid obesity cannot take care of himself at home. Electronic Signatures: Austin Natarajan) (Signed 08-Apr-2020 09:23) Authored: Service, Subjective Data, Objective Data, Assessment and Plan, Note Completion Last Updated: 08-Apr-2020 09:23 by Austin Natarajan) [facility] Discharge [id number] Discharge Profile2 Discharge Orders: Anticipated Discharge Date: Anticipated Discharge [id number] Activity: Nonweightbearing right leg. Elevate right leg as needed to control pain and swelling. May not drive. Weight-bearing Instructions: no weight-bearing right leg. Other activity instructions: Elevate right leg as needed to control pain and swelling. Wound Care 1: Wound SiteRight ankle Wound Typesurgical incision Change DressingKeep cast clean and dry Additional Orders: Additional Instructions 1. Plan to use Tylenol 650 mg [...] He will need to follow-up with Dr. Natarajan in 2 weeks time for your ankle fracture. 6. Weight loss would be beneficial for your long-term health and sleep apnea. Call Provider If (Homegoing Patients): Breathing faster than normal. Fever of 100.4 F (38 C) or higher. Any new concerning symptoms. Any sign of excessive swelling or infection. Gold Form Orders: Care Recommendation: I recommend that INPATIENT care is required at:Skilled Estimated Stay30 - 180 days PrognosisGood Rehab Potential/FunctionImpro ve Provider CertificationI certify that inpatient care is required at the level recommended above. To the best of my knowledge, all information provided about the individual is a true and accurate reflection of the individual's condition. Therapy Orders: Occupational Therapy OrdersEval and Treat ([facility]) Physical Therapy OrdersEval and Treat ([facility]) Nonweightbearing on right for approximately 4 weeks Provider Follow Up: Primary Care PhysicianDr. Natarajan for orthopedic follow-up in 2 weeks Provider FINAL REVIEW of Orders: Final Review: Final Review of Medication Reconciliation and Orders Completedby Physician Reviewing ProviderElmer Vidal MD at 10-Apr-2020 12:58:53 Electronic Signatures: Elmer Vidal) (Signed 10-Apr-2020 12:58) Authored: Discharge Orders, Provider FINAL REVIEW of Orders Austin Natarajan) (Signed 08-Apr-2020 09:28) Authored: Discharge Orders, Gold Form Orders, Gold Form - Avionics Systems Engineer Summary Last Updated: 10-Apr-2020 12:58 by Elmer Vidal) [facility] Daily Progress Note-Medicine on 04-07-2020 Daily Progress Note-Medicine Service: Medicine Review of Systems: Review of Systems: Constitutional: NEGATIVE: Fever, Chills ENMT: NEGATIVE: Nasal Discharge, Nasal Congestion, Ear Pain, Mouth Pain, Throat Pain Respiratory: NEGATIVE: Dry Cough, Productive Cough, Hemoptysis, Wheezing, Shortness of Breath Cardiac: NEGATIVE: Chest Pain, Dyspnea on Exertion, Orthopnea, Palpitations, Syncope Gastrointestinal: NEGATIVE: Nausea, Vomiting, Diarrhea, Constipation, Abdominal Pain Genitourinary: NEGATIVE: Discharge, Dysuria, Flank Pain, Frequency, Hematuria Musculoskeletal: NEGATIVE: Decreased ROM, Pain, Swelling, Stiffness, Weakness Neurological: NEGATIVE: Dizziness, Confusion, Headache, Syncope Subjective Data: MELIZA EASTMAN is a 54 year old Male who is Hospital Day # 2 and POD #0 for 1. Ankle Fracture ORIF; Additional Information: Status post surgery this morning Pain tolerable but he has not done much since the surgery No other complaints Objective Data: Objective Information: T PRBPSpO2 [id number]/8292% Date/Time04/07 11:5504/07 13: 13: 13:00106/08 13:00 Range(36.8C - 37.1C ) (61 - 77 ) (16 - 18 ) (113 - 161 )/ (52 - 89 ) (90% - 96% ) As of 07-Apr-2020 11:55:00, patient is on 2 L/min of oxygen via nasal cannula. Highest temp of 37.1 C was recorded at 04/06 18:54 Pain reported at 04/07 11:55: sleeping Physical Exam by System: Constitutional: Awake and alert; oriented x3 no apparent distress or respiratory distress Head/Neck: Neck supple with no palpable lymphadenopathy, bruits or masses; increased neck circumference and trachea midline Respiratory/Thorax: Diminished but clear with no wheezes or rhonchi noted Cardiovascular: Regular rate and rhythm; normal S1-S2 with no murmur; there is chronic venous stasis changes with his left leg more erythematous compared to the right and not tender to touch; 2+ pitting edema bilaterally and 1+ pulses bilaterally Gastrointestinal: Soft, nontender, nondistended, positive bowel sounds; morbidly obese Neurological: Nonfocal; cranial nerves II through XII appear intact Psychological: Flat affect Assessment and Plan: Additional Dx: Dislocated ankle, right, sequela: Entered Date: 06-Apr-2020 21:23 Surg History: S/P ORIF (open reduction internal fixation) fracture: Entered Date: 07-Apr-2020 11:40 Code Status: Code StatusFull Code Assessment: 54-year-old male admitted for dislocated right ankle status post fall. He underwent an ORIF this morning by orthopedics. Patient has a history of hypertension, hypercholesterolemia, bipolar disorder, GERD, suicide attempts in the past, untreated sleep apnea and obesity. PLAN: 1. Pain control as needed 2. PT to start tomorrow 3. He is on Ancef post surgery 4. Orthopedics put him on Lovenox 60 mg twice daily 5. In talking with the orthopedist and regarding the venous stasis changes to his left leg there is concern about a possible PE and the Lovenox should give him some coverage; may consider venous Dopplers 6. I did not put in any antibiotics to cover for possible cellulitis regarding that left leg as I feel that this is more venous stasis changes 7. Labs for tomorrow morning 8. social services analyst for discharge planning 9. Continue amlodipine, Wellbutrin, carvedilol, divalproex, hydrochlorothiazide and Lamictal from home 10. DVT prophylaxis with the SCDs and Lovenox Electronic Signatures: Stone Rodarte) (Signed 07-Apr-2020 19:44) Authored: Service, Review of Systems, Subjective Data, Objective Data, Assessment and Plan, Note Completion Last Updated: 07-Apr-2020 19:44 by Stone Rodarte () [facility] Preop Checkliston 04-07-2020 Preop Checklist Preop Checklist: Preop Checklist: Arrival [id number] Arrival Time08:41 Procedure Typeorif right ankle Temperature C37.1 degrees C Temperature F98.7 degrees F Heart Rate72 beats per minute Respiratory Rate22 breath per minute Blood Pressure [id number] mm/Hg Blood Pressure Tjoofdsfh58 mm/Hg NPO [id number] 22:00 NPO Commentyes ID Band Onyes Allergy Bandyes Consent Signedyes H&P Completeyes Anesthesia Assessment Completedyes EKG Performedyes Chest X-Ray Performednot ordered HCG Urine TestN/A Chlorhexadine Bath Givennot applicable Nasal Antiseptic Appliednot applicable Hair Washednot applicable Soap and water bath with hair shampoo the night before surgerynot applicable Hat placed on prior to transportnot applicable SCD's Appliedyes SUGAR Hose Appliednot ordered Denturesnot applicable Prostheticsnot applicable Hearing Aidsnot applicable Valuables Securednot applicable Glasses / Contactsnot applicable Bowel Prepno Cardiovascular Assessment: Apicalregular Pedal Pulsesdoppler right foot swolen and doppler used for pulse detection Extremitieswarm Respiratory Assessment: Respirationsunlabored regular Air Exchangeequal, good Breath Soundsclear Neurological Assessment: Level of Consciousnessalert, oriented Mobilitymoves all extremities Able to Express Selfyes Age Appropriateyes Emotional Statuscalm Preop Education: Surgical Site Infection Preventionyes Pain Scales and Managementyes Language / Communication: Language / CommunicationEnglish Electronic Signatures: Verónica Hugo (BRODERICK) (Signed 07-Apr-2020 08:44) Authored: Preop Checklist Last Updated: 07-Apr-2020 08:44 by Verónica Hugo (BRODERICK) [facility] ALCOHOLon 04-06-2020 Ethanol [Mass/Vol] mg/dL [facility] Comment on above: Result Comment: FOR MEDICAL USE ONLY. . REF VALUES <10 Performed By: #### A #### [address] [address] Admission Risk Screen - Adul ton 04-06-2020 Admission Risk Screen - Adult Allergies: Allergies: meloxicam: Resp Distress, Rash tolmetin: Resp Distress, Rash penicillin: Rash Patient Verification: New W ID Band Applied in my Departmentyes Patient Identity Verified Bydriver's license/state ID ID Band FULL Name, include Middle, spelling matches patient's ID used for verificationyes ID Band Matches Patient ID used for Verficationyes ID Band MRN Matches EMR MRNyes Visitor Restriction: Coronavirus Visitor Restriction: Reasonable restrictions to in-person visitors will be observed due to current coronavirus pandemic. Travel History: COVID-19 Screening Completedno exposure or symptoms(1) Advance Directive: Advance Directive/DNRno (2) Advance Directive Information Givenpatient/family declined (2) [place] Fall Screen: History of falling (immediate or previous)yes (25) Secondary Diagnosisno (0) Intravenous Therapy/ Heparin/Saline Lockyes (20) Gait/Transferringweak (10) Ambulatory Aidscrutches/walker/can e (15) Mental Statusoriented to own ability (0) Score: Low risk (<25). Moderate risk (25-44). High risk (>44).70 [place] InterventionsHIGH INTERVENTIONS *Low and Moderate Interventions Plus: * supervised toileting at all times Family Violence Screen: Are you or have you been threatened or abused physically, emotionally, or sexually by anyoneno Has anyone ever threatened to hurt your family or your petsno Does anyone try to keep you from having/contacting other friends or doing things outside your homeno Do you feel UNSAFE going back to the place where you are livingno Do you feel anyone has exploited or taken advantage of you financially or of your personal propertyno Clinical assessment: Are there any apparent signs of injuries/behaviors that could be related to abuse/neglectno Social Service Consult for abuse/neglect needed this visityes Functional Screen: Functional Screen: In the recent/past 2-4 weeks, patient or family have noticedno issues that require a speech/language consult at this time AM-PAC- Basic Mobility/Daily Activity: Patient baseline bedboundno Turning from your back to your side while in a flat bed without using bedrailsnone Moving from lying on your back to sitting on the side of a flat bed without using bedrailsnone Moving to and from bed to chair (including a wheelchair)a little Standing up from a chair using your arms (e.g. wheelchair or bedside chair)a lot To walk in hospital rooma lot Climbing 3-5 steps with railingtotal AM-PAC Basic Mobility- Total Score16 Putting on and taking off regular lower body clothinga little Bathing (including washing, rinsing, drying)a little Putting on and taking off regular upper body clothinga little Toileting, which includes using toilet, bedpan or urinala little Taking care of personal grooming such as brushing teetha little Eating Mealsa little AM-PAC Daily Activity- Total Score18 Learning Assessment (Patient): Patient is Able to be Assessed for Learningyes Factors Influencing Readiness to Learnpain Factors that Impact Ability to Learnnone Devices/Methods Used to Communicatenone Learning Preferencesverbal instruction Cultural Considerationsnone Developmental Considerationsnone [employer] Considerationsnone Learning Assessment (Other Learner): Other learner availableno Depression Screen: During the past month, have you often been bothered by feeling down, depressed or hopelessno During the past month, have you often had little interest or pleasure in doing thingsno Have you had any thoughts of harming anyone elseno (1) [place] Suicide: Risk Screen Not Applicable/Able to Answerable to be screened In the Past Month: Have you wished you were or could go to sleep and not wake upno(1) In the Past Month: Have you had any actual thoughts of killing yourself no(1) Lifetime: Have you ever done, started to do, or prepared to do anything to end your lifeno [place] Suicide Risknegative Adult Nutrition Screen: Have you recently lost weight without tryingno Have you been eating poorly because of a decreased appetiteno Malnutrition Screening Tool Score0 Malnutrition Screening Tool RiskMST = 0 or 1 Not at risk. Eating well with little or no weight loss Nutrition Consult needed this visitno Can Patient Participate in Room Serviceyes Patient requires Paper Dishes/Plastic Utensilsno Pain Screen: Pain Scalenumerical 0-10 Pain Scale Educationteaching provided Current Pain Level7 = Severe Acceptable Pain Level3 = Mild Expression of Pain (nonverbal)none Lifestyle Changes/Adaptations in Response to Painno change Barriers to Reporting Painnone Chronic Painno Spiritual Screen: Are there any cultural, spiritual, shinto practices/values/needs that are important for us to knowno Do you want a visit/item from [facility] [place] Would you like your Livestock Slaughterer/Reimbursement Director notifiedno CAGE: Is this an (more content not included)... Normal [facility] BASIC METABOLIC PANELon 12-1 1-2020 Anion gap [Moles/Vol] 13 mmol/L Normal 10 - 20 [facility] Comment on above: Performed By: #### B MP #### [address] [address] Calcium [Mass/Vol] 8.6 mg/dL Normal 8.6 - 10.3 [facility] Comment on above: Performed By: #### B MP #### [address] [address] Chloride [Moles/Vol] 100 mmol/L Normal 98 - 107 [facility] Comment on above: Performed By: #### B MP #### [address] [address] Creatinine [Mass/Vol] 1.02 mg/dL Normal 0.50 - 1.30 [facility] Comment on above: Performed By: #### B MP #### [address] [address] GFR- AM. >60 Normal >60 [facility] Comment on above: Result Comment: CALC ULATIONS OF ESTIMATED GFR ARE PERFORMED USING THE MDRD STUDY EQUATION FOR THE IDMS-TRACEABLE CREATININE METHODS. CLIN CHEM 2007;53:766-72 Performed By: #### B MP #### [address] [address] GFR-NON AM. >60 Normal >60 [facility] Comment on above: Performed By: #### B MP #### [address] [address] Glucose [Mass/Vol] 105 mg/dL High 74 - 99 [facility] Comment on above: Performed By: #### B MP #### [address] [address] HCO3 (Bld) [Moles/Vol] 30 mmol/L Normal 21 - 32 [facility] Comment on above: Performed By: #### B MP #### [address] [address] Potassium [Moles/Vol] 3.8 mmol/L Normal 3.5 - 5.3 [facility] Comment on above: Performed By: #### B MP #### [address] [address] Sodium [Moles/Vol] 139 mmol/L Normal 136 - 145 [facility] Comment on above: Performed By: #### B MP #### [address] [address] Urea nitrogen [Mass/Vol] 31 mg/dL High 6 - 23 [facility] Comment on above: Performed By: #### B MP #### [address] [address] CBC AND DIFFERENTIALon 04-06 Basophils (Bld) [#/Vol] 0.00 10*3/uL Normal 0.00 - 0.10 [facility] Comment on above: Performed By: #### B MP #### [address] [address] Basophils/100 WBC (Bld) 0.5 % Normal 0.0 - 2.0 [facility] Comment on above: Performed By: #### B MP #### [place] [id number] Eosinophils (Bld) [#/Vol] 0.10 10*3/uL Normal 0.00 - 0.70 [facility] Comment on above: Performed By: #### B MP #### [address] [address] Eosinophils/100 WBC (Bld) 0.6 % Normal 0.0 - 6.0 [facility] Comment on above: Performed By: #### B MP #### [address] [address] Erythrocyte distribution width (RBC) [Ratio] 14.5 % Normal 11.5 - 14.5 [facility] Comment on above: Performed By: #### B MP #### [address] [address] Hematocrit (Bld) [Volume fraction] 36.1 % Low 41.0 - 52.0 [facility] Comment on above: Performed By: #### B MP #### [address] [address] Hemoglobin (Bld) [Mass/Vol] 12.3 g/dL Low 13.5 - 17.5 [facility] Comment on above: Performed By: #### B MP #### [address] [address] Lymphocytes (Bld) [#/Vol] 1.70 10*3/uL Normal 1.20 - 4.80 [facility] Comment on above: Performed By: #### B MP #### [address] [address] Lymphocytes/100 WBC (Bld) 19.9 % Normal 13.0 - 44.0 [facility] Comment on above: Performed By: #### B MP #### [address] [address] MCHC (RBC) [Mass/Vol] 34.1 g/dL Normal 32.0 - 36.0 [facility] Comment on above: Performed By: #### B MP #### [address] [address] MCV (RBC) [Entitic vol] 92 fL Normal 80 - 100 [facility] Comment on above: Performed By: #### B MP #### [address] [address] Monocytes (Bld) [#/Vol] 1.20 10*3/uL High 0.10 - 1.00 [facility] Comment on above: Performed By: #### B MP #### [address] [address] Monocytes/100 WBC (Bld) 13.6 % Normal 2.0 - 10.0 [facility] Comment on above: Performed By: #### B MP #### [address] [address] Neutrophils (Bld) [#/Vol] 5.70 10*3/uL Normal 1.20 - 7.70 [facility] Comment on above: Result Comment: Perc ent differential counts (%) should be interpreted in the context of the absolute cell counts (cells/L). Performed By: #### B MP #### [address] [address] Neutrophils/100 WBC (Bld) 65.4 % Normal 40.0 - 80.0 [facility] Comment on above: Performed By: #### B MP #### [address] [address] NUCLEATED RBC 0.1 /100 WBC Normal [facility] Comment on above: Performed By: #### B MP #### [address] [address] Platelets (Bld) [#/Vol] 257 10*3/uL Normal 150 - 450 [facility] Comment on above: Performed By: #### B MP #### [address] [address] RBC 3.92 x10E12/L Low 4.50 - 5.90 [facility] Comment on above: Performed By: #### B MP #### [address] [address] WBC (Bld) [#/Vol] 8.7 10*3/uL Normal 4.4 - 11.3 [facility] Comment on above: Performed By: #### B MP #### [place] [id number] CORONAVIRUS 2019 BY PCRon SARS-CoV-2 (COVID-19) RNA KRISTIN+probe Ql (Unsp spec) Not detected Normal Not Detected [facility] Comment on above: Result Comment: . This assay is designed to detect the N2 and E genes of SARS-CoV-2 via nucleic acid amplification. A Not Detected result does not preclude COVID-19 infection since the adequacy of sample collection and/or low viral burden may result in presence of viral nucleic acids below the clinical sensitivity of this test method. Fact sheet for providers: www.fda.gov/media/210169/download Fact sheet for patients: www.fda.gov/media/254366/download This test has received FDA Emergency Use Authorization (EUA) and has been verified by [facility]. This test is only authorized for the duration of time that circumstances exist to justify the authorization of the emergency use of in vitro diagnostic tests for the detection of SARS-CoV-2 virus and/or diagnosis of COVID-19 infection under section 564(b)(1) of the Act, 21 U.S.C. 360bbb-3(b)(1), unless the authorization is terminated or revoked sooner. [facility] is certified under CLIA-88 as qualified to perform high complexity testing. Testing is performed in the [facility] laboratory located at [address] [place] [address]. Performed By: #### B MP #### [place] [address] Lab Specimen Source Nasal, Nasopharyngeal [facility] Comment on above: Performed By: #### B MP #### [place] [address] DATE OF SYMPTOM ONSET [[id number]]? [id number] [facility] Comment on above: Performed By: #### B MP #### [place] [address] CT HEAD WO CONTRASTon 2019 CT HEAD WO CONTRAST Patient Name: MELIZA EASTMAN STUDY: CT HEAD WO CONTRAST; 04/06/2020 4:27 pm INDICATION: dizziness and falls. COMPARISON: None. ACCESSION NUMBER(S): [id number] ORDERING CLINICIAN: RAGHAV BAUGH TECHNIQUE: Noncontrast axial CT scan of head was performed. Angled reformats in brain and bone windows were generated. The images were reviewed in bone, brain, blood and soft tissue windows. FINDINGS: The ventricles, cisterns and sulci are prominent, consistent with mild diffuse volume loss. There are areas of nonspecific white matter hypodensity, which are probably age-related or microvascular in nature. Denise-white differentiation is intact and there is no evidence of acute cortical infarct. No mass, mass effect or midline shift is seen. Symmetric curvilinear hyperdensities involving the cerebellum bilaterally likely related to the dentate calcification.. The visualized paranasal sinuses are clear. IMPRESSION: No evidence of acute cortical infarct or intracranial hemorrhage. Chronic changes as described. Electronically signed by: STAS HENRIQUEZ MD [facility] Consult-Orthopaedicson 04-06 Consult-Orthopaedics Service: Service: Orthopaedics Consult: Consult requested by (Attending Name): Cayden, Stone Jesusita Reason: Dislocated ankle status post fall History of Present Illness: HPI: MELIZA EASTMAN is a 54 year old Male that fell on March 30 apparently dislocated his ankle and he was seen in the emergency room was told to follow-up with orthopedics he did not is at other fall since and came into the emergency room today and I was consulted for care. Past medical history allergies to penicillin He has a history of hypertension morbid obesity Review of systems no ongoing chest pain shortness of breath no PND orthopnea he has had venous stasis changes in redness and swelling in his legs Physical exam reveals a morbidly obese white male seems alert and oriented x3 his HEENT exam is normal abdomen soft nontender examination of his right lower extremity reveals a large leg with swelling and pitting edema and redness he has pain with ankle motion some tenderness in the round the right knee area or below it he does appear neurovascular intact however with good pulses color and sensation. X-rays of his right ankle reveal a widened mortise we do not have any full prereduction x-rays the syndesmosis is widened and the medial joint space is centimeter these correlate quite strongly with x-rays taken on 03 30 there is also some posterior subluxation of the talus within the mortise. I had them x-rays right leg today to include the knee and as expected he does have a proximal fibula fracture. Impression is a right ankle fracture dislocation with primarily medial deltoid ligament tear syndesmosis disruption with a high fibula fracture and subsequent instability of his mortise with widening. Plan is a open reduction internal fixation of his right ankle with repair of the syndesmosis and syndesmosis screw and after I evaluate that I may need to open it medially to repair the deltoid. I do not plan on internally fixing the fibula proximally. I have explained the procedures to the patient option of casting which I just do not think he has any chance of holding it is mortise in a normal position I have explained to him the risks of infection and skin closure may be an issue swelling in his morbid obesity may disrupt the fracture repair and ligament repair. There is risks of anesthetic all all these risks are increased by his morbid obesity I the seemed understand this and did consent Allergies: meloxicam: Resp Distress, Rash tolmetin: Resp Distress, Rash penicillin: Rash Consult Status: Consult Order ID: [id number] Electronic Signatures: Austin Natarajan) (Signed 06-Apr-2020 20:25) Authored: Service, History of Present Illness, Allergies, Assessment/Recommendati ons, Note Completion Last Updated: 06-Apr-2020 20:25 by Austin Natarajan) [facility] Covid 19 Resultson 0 SARS-CoV-2 (COVID-19) RNA KRISTIN+probe Ql (Unsp spec) NEGATIVE COVID-19 Test Coronaviruses are common world-wide and are the cause of many common colds. SARS-COV2 is a new coronavirus that began circulating worldwide in 2019 so we are calling it COVID-19. It has been estimated that four out of five patients with COVID-19 will recover at home without the need for medical attention. Symptoms of COVID-19 include cough, fever, shortness of breath, loss of taste or smell and other flu-like symptoms including chills, sore muscles, sore throat, and headache. Severe illness is more common in older people and people with other health problems such as high blood pressure, obesity, and immune system problems. If the test is positive, you have COVID-19. You will be contacted by the ordering physicians office and instructed to remain on home isolation, in accordance with CDC guidelines. You may also be contacted by the [facility] to see if any of your close contacts may have been exposed to the virus and need to quarantine. If the test is negative, you likely do not have COVID-19 at this time, but you still may have a different illness that can spread to other people (like Influenza, or the Flu) and could still be at risk for getting COVID-19. We recommend that you stay away from other people to limit the spread of illness until your symptoms are improving and you are fever-free for 24 hours without the use of fever lowering medications such as acetaminophen or ibuprofen. No test is 100% accurate so if you are still concerned you may have COVID-19, talk to your doctor about the need to continue to stay away from others. Medicines Acetaminophen (Tylenol and others) is generally safe. Anti-inflammatory medications, such as Ibuprofen (Advil or Motrin) or Naproxen (Aleve) can also be used. Ayql-dyi-yvyvbuq cough and cold medicines can be used according to the instructions on the package. Some hawy-jrh-bzyvzta medicines also contain acetaminophen. Make sure you are not taking more than your recommended dose For those not hospitalized, there is no specific treatment available for this illness. Antibiotics do not treat Coronaviruses. Follow-Up Follow up with your doctor by scheduling a virtual visit or consider follow-up at one of our urgent care fever clinics. If you are having difficulty breathing, or are very weak and having difficulty standing, this is a medical emergency. Call 911 or have someone take you to the nearest emergency room immediately. If possible, wear a facemask. Additional guidance from the CDC for patients who tested POSITIVE for COVID-19 How to isolate: Isolate yourself in a specific room at home and limit your contact with others. Use a separate bathroom from other members of the household, when possible. Leave home only to get essential medical care. Do not go to work, school or public areas. Avoid using public transportation, ride-sharing, or taxis. Restrict contact with pets and other animals. If you must care for your pet or be around animals while you are sick, wash your hands before and after your interaction and wear a facemask. Make sure that shared spaces in the home have good airflow, such as by an air conditioner or an opened window, weather permitting. Personal Hygiene Procedures: Wear a face mask when in the same room as other people or pets. If a face mask interferes with your breathing, others should wear a mask when sharing space with you. Frequent hand-washing: wash your hands with soap and water for at least 20 seconds. If soap and water are not available, use alcohol-based hand usability specialist. Avoid touching your eyes, nose, and mouth with unwashed hands. Household Hygiene Procedures: Avoid sharing personal household items such as dishes, glassware, cups, eating utensils, towels or bedding with other people or pets in your home. After use, these items should be washed with soap and hot water. Disinfect all high-touch surfaces every day with antibacterial cleaning solutions such as Lysol wipes, bleach, cleansers, etc. High-touch surfaces include tabletops, doorknobs, bathroom fixtures, toilets, phones, keyboards, tablets and bedside tables. Immediately clean any surfaces that may have blood, poop or body fluids on them, using antibacterial cleaning solutions such as Lysol wipes, bleach, cleansers, etc. If clothing or bedding come into contact with blood, poop or body fluids, they should be washed immediately. Follow the directions on the laundry detergent and clothing labels but hot water is recommended when possible. Stopping home isolation precautions: If possible, consult your doctor before stopping home isolation precautions. According to the CDC, you can discontinue home isolation precautions when you have met both of these criteria: Your fever and respiratory symptoms have been gone for 24 hours without the use of any medicines like ibuprofen (Motrin) (more content not included)... Normal [facility] Discharge Planning [id number] 1 06-07-2019 Discharge Planning Note2 Discharge Planning: Needs Prior to Discharge (ex. Home Care Orders, IV/O2 prescriptions) Precert Planned Dispositionskilled/reha b/extended care Discharge DestinationGS precert waived. AMPAC > 16yes New Cognitive Deficitsno Complex Medical ConditionPt does not feel he van manage at home independently at this time. 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 Pt indicates that he just got out of surgery and is still feeling very out of it. Per morning care rounds, it was indicated that pt may need SNF placement at discharge. SW discussed this with pt. Pt states that he would most prefer to return home when ready, however, feels that he cannot make this decision until closer to discharge. SW discussed the possibility of HHC with pt, who states he does feel he needs this at discharge. Pt asked several questions regarding insurance coverage, PATTERN GRADER CUTTER services with tasks such as housekeeping. SW explained that PATTERN GRADER CUTTER services are primarily for personal care. Pt expressed understanding. SW discussed private duty care, pt declines such at this time. SW asked about HHC agency choice, pt states he would like to wait until closer to discharge to make this decision. SW provided pt with HHC agency options. SW to follow up closer to discharge. Marycruz Maldonado, HOG TRADER, SANITATION WORKER CLEANING EQUIPMENT 1600: SW met with pt, as there is a chance pt may be ready for discharge tomorrow. Pt indicates he would like to use [facility] at discharge. SW completed referral via ACM. SW placed weekend discharge instructions in pt chart. SW to follow as needed. Marycruz Maldonado, HOG TRADER, SANITATION WORKER CLEANING EQUIPMENT [phone] am Built and sent to [facility], [facility], [facility], [facility] and [facility]. Waiting on responses. Jerome Arnold Care Navigation Specialist 04-09-2020 1435 Response received from following half-way facilities: [facility]-no beds. [facility] accepted floor to snf. [facility] both said no-[facility]. [facility] -Back LOG on referrals-will review as soon as can. Jerome Arnold Care Navigation Specialist 04-09-2020 1515 Response received from following half-way facilities: [facility] will start precert-nolonger qualify for floor to snf with ampac of 16. Jerome Arnold Care Navigation Specialist 04-09-2020 1535 Response received from following half-way facilities: [facility] said no over weight limit. Jerome Arnold Care Navigation Specialist 04/09/2020 @ 412pm Care Transitions: radiation control worker following pt for discharge planning services. Pt reviewed during Care Rounds today- pt should consider SNF placement as he is not moving very well with therapy. Pt also has concerns regarding a home discharge. radiation control worker met with pt and discussed the same. Pt agreeable to referrals to the following (no particular order) [facility], [facility], [facility] and [facility]. [facility] has agreed to accept. They were able to take him this morning under floor to SNF; however, pt's AMPAC score bumped up with afternoon therapy and he no longer qualifies. [facility] initiated full precert late this afternoon. Pt and Dr. Young almaraz. radiation control worker updated [facility] in [employer]. Care Transitions will continue to follow. HEATHER Alexander Care Transitions Note: 04-10-[address] follow up for d/c planning. Per discussion in Care Huddle, Pt is ready for d/c to SNF pending insurance approval. SW received notice from [facility] that pre-cert has been waived. [facility] is able to accept Pt today. SW updated Dr and Pt on same. Pt is pleased with plans. plans to order d/c today. SW updated the [facility] and [facility]. [facility] will send orders, complete Hens Exemption, and arrange transport when d/c ordered. ITA notes Pt's AMPAC is 19 today, however, he was only able to ambulate 10 steps with hopping pattern. Pt does not feel he can manage at home without continued rehab at SNF first. No further CT assist required. Plan: Pt to [facility] today for skilled care as ordered by . Pre-cert waived per [facility]. TORRES Tejada, OIL SEAL ASSEMBLER [address] indicates he is working on this D/c now. SW updated the [facility] and [facility]. Nursing reports Pt is able to transport by wheelchair van. SW checked with [facility] and they are unable to provide transport today. They request [facility] arrange an Ambulette--[facility] updated on same. No further CT assist required. TORRES Tejada, OIL SEAL ASSEMBLER [phone] Transport arranged by Jerome arnold thru [facility] pickup by [facility] with a sheepskin pickler by 1530 to [facility]. MD orders attached and PAsar completed. Jerome Arnold, Care Navigation Specialist Discharge Note: 04/10/2020 [id number] [facility] by physicians ambulance, paperwork packet sent with bach (more content not included)... Normal [facility] FOOT COMPLETE, MIN 3 VIEWSon 04-06-2020 FOOT COMPLETE, MIN 3 VIEWS Patient Name: MELIZA EASTMAN STUDY: FOOT; COMPLETE, MIN 3 VIEWS; Right; 04/06/2020 3:55 pm INDICATION: pain. COMPARISON: 03/30/2020 ACCESSION NUMBER(S): [id number] ORDERING CLINICIAN: RAGHAV BAUGH FINDINGS: Three views of the right foot. Marked soft tissue swelling at the level of the ankle and also marked new soft tissue swelling along the dorsum of the foot with possible lucency at the level of the metatarsals suggesting soft tissue air.. No definite acute fractures. Probable persistent dislocation at the tibiotalar joint noted previously. Remainder of the joint spaces are maintained. Large calcaneal spurs. IMPRESSION: Marked dorsal soft tissue swelling with possible soft tissue air. Clinical correlation for recent intervention is recommended. No definite acute fractures. Probable persistent dislocation at the tibiotalar joint. Electronically signed by: JAMES TEIXEIRA MD Normal [facility] MAGNESIUMon 04-06-2020 Magnesium [Mass/Vol] 2.27 mg/dL Normal 1.60 - 2.40 [facility] Comment on above: Performed By: #### M G #### [place] [id number] [place] [id number] Patient Profile - Adult v2on 04-06-2020 Patient Profile - Adult v2 Profile: Initial Info: How to be AddressedMike Spoken Language PreferredEnglish (1) Source of Informationpatient Stated Reason for AdmissionFalls Primary Contact Name and NumberMarsha Bowden [phone] Employment Statusretired Temporary Family Living Arrangements (While Hospitalized)none needed Limitations on Visitors/Phone Callsnone Current or Previous Servicenone Patient Belongingsremains with patient Patient Belongings Remaining with Patientclothing; morales/credit card; purse/wallet History of MDROno [place]mitted To in Past 90 Daysnone Medications Brought to Hospitalno Are you currently using the Personal Electronic Health Record or C3 Online MarketingUHCAREno Are you interested in learning more about [employer] for the management of your healthnot at this time Wants Family/Rep Notified of Admissionn/a; family present Notify PCPdo not notify PCP Informed of Patient Visiting Rightsyes General Health: Blood Avoidance/Restrictionsn one Previous Transfusion Reactionno Weight in kg159.2 kilogram(s) Weight in kob514.9 pound(s) Weight Methodactual (measured) Scale Typebed Height in cm177.8 centimeter(s) Height in feet5 feet(2) Height in tmotts58 inch(es)(2) Height Methodstated BMI (kg/m2)50.359 square meter RSP Based Care: How would you like to participate in your careTake meds as ordered What is the number one concern for you during this hospitalizationGetting to facility that can help What is the most important thing we can do to support you during this hospitalizationGive meds as ordered. Is there anything we need to know to best care for Mahad/A Substance: Current or Former Substance Use never: Cigarette/Tobacco(3), e-Cigarette/Vaping(3), Alcohol(3), Street Drugs(3) Health Mgmt: Symptoms/Conditions Managed at Homenone Barriers to Managing Healthnone Relationship/Environ: Significant Exposurenone Resource/Environmental Concernsnone Primary Source of Support/Comfortno one Lives Withalone Living Arrangementshouse Services Anticipated at Transitionrehabilitatio n services Anticipated Transition [facility] Significant IndicatorsComplete Information Review: Allergies, Home Meds and Significant Events have been Reviewed and Verified with Patient/Familyyes ALLERGY, INTOLERANCE, ADVERSE EVENT: Allergies: meloxicam: Drug, Resp Distress, Rash, Active tolmetin: Drug, Resp Distress, Rash, Active penicillin: Drug, Rash, Active Electronic Signatures: Hill Stapleton (BRODERICK) (Signed 06-Apr-2020 19:32) Authored: Initial Info, General Health, RSP Based Care, Substance, Health Mgmt, Relationship/Environ, Additional Information Last Updated: 06-Apr-2020 19:32 by Hill Stapleton (BRODERICK) References: 1. Data Referenced From Triage - ED 06-Apr-2020 14:46 2. Data Referenced From 1. Vital Signs 06-Apr-2020 14:46 3. Data Referenced From Risk Screen - Adult Emergency 06-Apr-2020 14:52 [facility] Provider Note - ED v2on 03-27 Provider Note - ED v2 Provider Note - ED v2: Chart Review: ED NOTES ED NOTES: HPI: Patient is a morbidly obese gentleman here today status post fall. He says he is fallen 8 times. Patient came today because he has right ankle pain. He fell earlier in the week and had a dislocation of his right ankle. He says today he fell to his knees and has bilateral knee pain. Patient states that the pain in his ankle is 7 out of 10. He is also stating that he has been dizzy for 2 years. He is not compliant with following up with a neurologist. Patient lives alone. He is asking to go to a skilled nursing. No shortness of breath or cough or chest pain. Patient was prescribed Percocet but he says it is not helping with his pain. ROS: All systems are negative other than as noted in HPI. Physical Exam I have reviewed the triage vital signs. Const: Well nourished, well developed, appears stated age, no acute distress, obese Eyes: PERRL, EOM intact, no conjunctival injection, vision grossly normal HENT: Neck supple without meningismus , Moist mucous membranes, no pharyengeal swelling or exudate CV: Regular rate and rhythm, Warm, well-perfused extremities. Chest non tender RESP: Lungs clear bilaterally, Unlabored respiratory effort GI: soft, non-tender, non-distended, no masses MSK: Patient has a swollen right ankle with diffuse bruising. Pain with range of motion, distal pulses intact. Sensation intact. Capillary refill in all 4 extremities intact. Back: Non tender, no pain with ROM Skin: Warm, dry. No rashes Neuro: Alert and oriented x4, GCS 15 , engineer fishing vessel II-XII grossly intact. Sensation and motor function of extremities grossly intact. Psych: Appropriate mood and affect. HISTORY OF PRESENTING ILLNESS MELIZA is a 54 year old Male and was seen by me at 06-Apr-2020 14:50 for a chief complaint of fall (Patient fell last Thursday and dislocated right ankle, states he has not made follow up appt with ortho yet, today lost his balance getting into a chair and fell forward landing on both knees. Complains of bilateral knee pain and continued pain in right ankle. Patient states he uses walker at home and got a wheelchair yesterday but is trying to get a home health aide due to frequent falls)(1). Triage Information: Most recent Vital Sign Value Date Temp (F): 98.5 04-06-2020 14:46 Temp (C): 36.9 04-06-2020 14:46 Heart Rate (beats/min): 72 04-06-2020 14:46 Respirations (breaths/min): 16 04-06-2020 14:46 SpO2 (%): 96 04-06-2020 14:46 BP Systolic (mm Hg): 146 04-06-2020 14:46 BP Diastolic (mm Hg): 91 04-06-2020 14:46 PAST MEDICAL HISTORY ATTESTATION: I have reviewed and confirmed nurse's/medic's notes for patient's medications, allergies, medical history, and surgical history ALLERGIES/INTOLERANCES: Allergy Allergen: meloxicam Type: Drug Reaction: Resp Distress Rash Allergen: tolmetin Type: Drug Reaction: Resp Distress Rash HEALTH HISTORY: No documented data. OUTPATIENT MEDICATIONS: Home Medications Review Status for Reconciliation: Complete Med Status: Patient Currently Takes Medications Drug Name: AMLODIPINE TAB 5MG Instructions: 1 tab(s) orally once a day Drug Name: BUPROPION ER / SR 150MG TAB Instructions: 1 tab(s) orally once a day (in the morning) Drug Name: CARVEDILOL 12.5MG TAB Instructions: 2 tab(s) orally 2 times a day Drug Name: DIVALPROEX TAB 500MG ER Instructions: 3 tab(s) orally once a day (in the evening) Drug Name: HYDROCHLOROT 25MG TAB Instructions: 1 tab(s) orally once a day Drug Name: LAMOTRIGINE TAB 200MG Instructions: 2 tab(s) orally once a day (at bedtime) Drug Name: OXYCODONE TAB 10MG Instructions: 1 tab(s) orally , As Needed SIGNIFICANT EVENTS: No documented data. RESULTS/VITAL SIGNS RESULTS: Recent Lab Results: I have reviewed these laboratory results: Complete Blood Count + Differential 06-Apr-2020 16:03:00 ResultValue White Blood Cell Count 8.7 Nucleated Erythrocyte Count 0.1 Red Blood Cell Count 3.92 L HGB 12.3 L HCT 36.1 L MCV 92 MCHC 34.1 PLT 257 RDW-CV 14.5 Neutrophil % 65.4 Lymphocyte % 19.9 Monocyte % 13.6 Eosinophil % 0.6 Basophil % 0.5 Neutrophil Count 5.70 Lymphocyte Count 1.70 Monocyte Count 1.20 H Eosinophil Count 0.10 Basophil Count 0.00 Basic Metabolic Panel 06-Apr-2020 16:03:00 ResultValue Glucose, Serum 105 H NA 139 K 3.8 CL 100 Bicarbonate, Serum 30 Anion Gap, Serum 13 BUN 31 H CREAT 1.02 GFR-Non >60 GFR- >60 Calcium, Serum 8.6 Thyroid Stimulating Hormone, Serum 06-Apr-2020 16:03:00 ResultValue Thyroid Stimulating Hormone, Serum 1.45 Ethanol Level 06-Apr-2020 16:03:00 ResultValue Ethanol Level <10 Magnesium, Serum 06-Apr-2020 16:03:00 ResultValue Magnesium, Serum 2.27 Urinalysis 06-Apr-2020 15:56:00 ResultValue Color, Urine Yellow Reference Range: STRAW,Y (more content not included)... Normal [facility] Risk Screen - Adult Emergenc yon 04-06-2020 Risk Screen - Adult Emergency Preferred Language: Preferred Language: Preferred Language for Discussing Health Care (patient/designee)Shawn alfonso Advanced Directives: Advance Directive/DNRno Advance Directive Information Givenpatient/family declined Family Violence Adult: Abuse Screen: Are you or have you been threatened or abused physically, emotionally, or sexually by anyoneno Learning Assessment (Patient): Learning Assessment (Patient): Patient is Able to be Assessed for Learningyes Factors Influencing Readiness to Learninterest in learning Factors that Impact Ability to Learnnone Devices/Methods Used to Communicatenone Learning Preferencesverbal instruction Cultural Considerationsnone Developmental Considerationsnone Baptist Considerationsnone Learning Assessment (Other Learner): Learning Assessment (Other Learner): Other learner availableno Pressure Injury/TB/Substance: Pressure Injury: Pressure Injury Present on Admissionno Do you have a coughno Substance Use Current or Former Historynever: Cigarette/Tobacco, e-Cigarette/Vaping, Alcohol, Street Drugs Admission Risk Screen: Significant IndicatorsComplete CAGE: CAGE: Is this an injured patient at a Trauma Center ([facility]/[place]): no Electronic Signatures: Angelina Lovett (BRODERICK) (Signed 06-Apr-2020 14:52) Authored: Preferred Language, Advanced Directives, Family Violence Adult, Learning Assessment (Patient), Learning Assessment (Other Learner), Pressure Injury/TB/Substance, Pressure Injury, CAGE Last Updated: 06-Apr-2020 14:52 by Angelina Lovett (BRODERICK) [facility] TIBIAon 04-06-2020 TIBIA Patient Name: MELIZA EASTMAN STUDY: TIBIA ; Right; 04/06/2020 6:06 pm INDICATION: fracture. COMPARISON: 03/30/2020 ACCESSION NUMBER(S): [id number] ORDERING CLINICIAN: RAGHAV BAUGH FINDINGS: There is a fracture of the proximal fibula. Distal fracture fragment is displaced anteriorly approximately 7 mm without angulation. Widening of the ankle mortise again seen; not measurably changed IMPRESSION: Mildly displaced right proximal fibular fracture Electronically signed by: BERYL MILLS MD [facility] TSHon 04-06-2020 TSH Qn 1.45 m[IU]/L Normal 0.44 - 3.98 [facility] Comment on above: Result Comment: TSH testing is performed using different testing methodology at [facility] than at other [facility]. Direct result comparisons should only be made within the same method. Performed By: #### T SH2 #### [facility] [address] [place] [address] Triage - EDon 04-06-2020 Triage - ED Chart Review: PRIMARY ASSESSMENT MELIZA EASTMAN's primary assessment is Within Defined Limits. The airway is open and patent. Breathing spontaneous and unlabored with clear breath sounds bilaterally. Circulation is normal with good peripheral pulses. Skin is warm and dry and color is normal for race. TREATMENT PRIOR TO ARRIVAL EMS REPORTED VITAL SIGNS Blood Pressure: 107/48 Mean: Heart Rate: 66 Pulse Oximetry: 98% ARRIVAL INFORMATION Means of Arrival: stretcher Mode of Arrival: ambulance Agency: [facility] Agency Name: [facility] Arrival From: home Accompanied By: self Language: Spoken Language Preferred: Slovenian CHIEF COMPLAINT MELIZA EASTMAN is a Male patient with a chief complaint of fall (Patient fell last Thursday and dislocated right ankle, states he has not made follow up appt with ortho yet, today lost his balance getting into a chair and fell forward landing on both knees. Complains of bilateral knee pain and continued pain in right ankle. Patient states he uses walker at home and got a wheelchair yesterday but is trying to get a home health aide due to frequent falls). Triage Date/Time: 06-Apr-2020 14:47 Pain Rating (0-10): 9 = Severe Pain location: ankle, bilateral knee Vital Signs: Temperature: 98.5F ( 36.9C) taken oral Blood Pressure: 146/91 Mean: Heart Rate: 72 Respiratory Rate: 16 Pulse Oximetry: 96% on room air, no respiratory support. Height: 5 feet 10.00 inches. 177.8 CM Weight: 339.5 pounds. Calculated 154.0 kg. (stated) Calculated BMI (kg/m2): 48.714 Calculated BSA (m2) 2.76 Zackary Coma Scale: Best Eye Response: (E4) spontaneous Best Motor Response: (M6) obeys commands Best Verbal Response: (V5) oriented [place] Score: 15 Mask applied: yes Patient has homicidal thoughts: no YAMILETH: 3 Risk Screens Suicide Risk Screen In the Past Month: Have you wished you were or wished you could go to sleep and not wake up no In the Past Month: Have you had any actual thoughts of killing yourself no In Your Lifetime: Have you ever done anything, started to do anything, or prepared to do anything to end your life no [place] Fall Scale Screening Has the patient fallen before (or is the patient in the ED as a result of a fall) has had a fall Does the patient have an impaired gait has impaired gait Is the patient cognitively impaired not cognitively impaired [place] Fall Scale History of falling (immediate or previous) yes (25) Secondary Diagnosis yes (15) Intravenous Therapy/ Heparin/Saline Lock no (0) Gait/Transferring impaired (20) Ambulatory Aids crutches/walker/cane (15) Mental Status oriented to own ability (0) [place] Fall Risk Score: 75 Interventions: Ragsdale Fall Interventions: HIGH INTERVENTIONS *Low and Moderate Interventions Plus: * supervised toileting at all times TRAVEL HISTORY Travel History Coronavirus Screening: no exposure or symptoms Travel Exposure History: NO travel to International locations in the past 30 days PAIN Pain Scale Used: JAVIER Pain Rating (0-10): 9 = Severe Past Medical History: Past Medical History Reviewedyes Electronic Signatures: Angelina Lovett (BRODERICK) (Signed 06-Apr-2020 14:52) Authored: Quick Triage, Risk Screens, Pain, Arrival, Pre-arrival, ABCD, Travel History, Chart Review, Scores, Past Medical History Last Updated: 06-Apr-2020 14:52 by Angelina Lovett (BRODERICK) Normal [facility] URINALYSISon 04-06-2020 Appearance (U) CLEAR Normal CLEAR [facility] Comment on above: Performed By: #### U A #### [address] [address] Bilirubin Ql (U) Negative Normal NEGATIVE [facility] Comment on above: Performed By: #### U A #### [address] [address] Color (U) Yellow Normal STRAW,YELLOW [facility] Comment on above: Performed By: #### U A #### [address] [address] Glucose Ql (U) Negative Normal NEGATIVE [facility] Comment on above: Performed By: #### U A #### [address] [address] Hemoglobin Ql (U) Negative Normal NEGATIVE [facility] Comment on above: Performed By: #### U A #### [place] [id number] Ketones Ql (U) 5(TRACE) Abnormal NEGATIVE [facility] Comment on above: Performed By: #### U A #### [place] [id number] Leukocyte esterase Test strip Ql (U) Negative Normal NEGATIVE [facility] Comment on above: Performed By: #### U A #### [place] [address] Nitrite Ql (U) Negative Normal NEGATIVE [facility] Comment on above: Performed By: #### U A #### [place] [address] pH (U) 6.0 [pH] Normal 5.0 - 8.0 [facility] Comment on above: Performed By: #### U A #### [place] [address] Protein Ql (U) Negative Normal NEGATIVE [facility] Comment on above: Performed By: #### U A #### [place] [id number] Specific gravity (U) [Rel density] 1.024 Normal 1.005 - 1.035 [facility] Comment on above: Performed By: #### U A #### [place] [id number] Urobilinogen (U) [Mass/Vol] mg/dL Normal 0.0 - 1.9 [facility] Comment on above: Performed By: #### U A #### [place] [id number] ANKLE 2 VIEWSon 03-31-2020 ANKLE 2 VIEWS Patient Name: MELIZA EASTMAN STUDY: ANKLE 2 VIEWS; 03/30/2020 10:20 pm INDICATION: Post reduction. COMPARISON: 03/30/2020 at 7:29 p.m. ACCESSION NUMBER(S): [id number] ORDERING CLINICIAN: ASH NAVA FINDINGS: Two views right ankle. Widening of the medial clear space, 12 mm, and widening of the tibiofibular syndesmosis are not significantly changed. Cortical densities at the tip of the medial malleolus are indeterminate in age. There are degenerative changes of tibiotalar joint. Achilles insertional enthesophyte and plantar calcaneal spur noted. IMPRESSION: Persistent widening of the tibiofibular syndesmosis and medial clear space. Electronically signed by: JANEEN CHAVEZ MD [facility] ANKLE, COMPLETE, MIN 3 VIEWS on 03-30-2020 ANKLE, COMPLETE, MIN 3 VIEWS Patient Name: MELIZA EASTMAN STUDY: ANKLE, COMPLETE, MIN 3 VIEWS; FOOT, 2 VIEWS; Right; 03/30/2020 8:04 pm; 03/30/2020 8:09 pm INDICATION: trauma. Pt c/o right ankle pain after slipping and falling this evening. COMPARISON: None. ACCESSION NUMBER(S): [id number]; [id number] ORDERING CLINICIAN: ASH NAVA FINDINGS: AP and lateral views of the right foot and AP, lateral and oblique views of the right ankle were obtained. The patient was imaged with superimposed radiopaque densities, partially obscuring bone and soft tissue detail. Right foot: There is no acute fracture or dislocation. There is calcaneal enthesopathy. There is diffuse soft tissue swelling. Right ankle: There is tibiotalar dislocation with widening of the tibiotalar joint, widening of the distal tibiofibular syndesmosis and widening of the medial clear space. Small calcifications are noted at the anterior tibiotalar joint and posterior to the distal tibia. Well corticated calcifications are noted adjacent to the medial malleolus and medial talus, may be secondary to prior trauma. There is soft tissue swelling at the medial right ankle. IMPRESSION: Tibiotalar dislocation with widening of the tibiotalar joint, widening of the distal tibiofibular syndesmosis and widening of the medial clear space, suggestive of acute traumatic syndesmosis injury and deltoid ligament injury. Small calcifications at the anterior tibiotalar joint and posterior to the distal tibia, may be secondary to avulsion fractures or intra-articular loose bodies. Soft tissue swelling at the medial right ankle. Diffuse soft tissue swelling at the right foot. Cross-sectional imaging recommended for further evaluation. Electronically signed by: LESLIE VALDEZ DO [facility] FOOT, 2 VIEWSon 03-30-2020 FOOT, 2 VIEWS Patient Name: MELIZA EASTMAN STUDY: ANKLE, COMPLETE, MIN 3 VIEWS; FOOT, 2 VIEWS; Right; 03/30/2020 8:04 pm; 03/30/2020 8:09 pm INDICATION: trauma. Pt c/o right ankle pain after slipping and falling this evening. COMPARISON: None. ACCESSION NUMBER(S): [id number]; [id number] ORDERING CLINICIAN: ASH NAVA FINDINGS: AP and lateral views of the right foot and AP, lateral and oblique views of the right ankle were obtained. The patient was imaged with superimposed radiopaque densities, partially obscuring bone and soft tissue detail. Right foot: There is no acute fracture or dislocation. There is calcaneal enthesopathy. There is diffuse soft tissue swelling. Right ankle: There is tibiotalar dislocation with widening of the tibiotalar joint, widening of the distal tibiofibular syndesmosis and widening of the medial clear space. Small calcifications are noted at the anterior tibiotalar joint and posterior to the distal tibia. Well corticated calcifications are noted adjacent to the medial malleolus and medial talus, may be secondary to prior trauma. There is soft tissue swelling at the medial right ankle. IMPRESSION: Tibiotalar dislocation with widening of the tibiotalar joint, widening of the distal tibiofibular syndesmosis and widening of the medial clear space, suggestive of acute traumatic syndesmosis injury and deltoid ligament injury. Small calcifications at the anterior tibiotalar joint and posterior to the distal tibia, may be secondary to avulsion fractures or intra-articular loose bodies. Soft tissue swelling at the medial right ankle. Diffuse soft tissue swelling at the right foot. Cross-sectional imaging recommended for further evaluation. Electronically signed by: LESLIE VALDEZ DO [facility] Provider Note - ED v2on Provider Note - ED v2 Provider Note - ED v2: Chart Review: ED NOTES ED NOTES: HPI: Patient is a 54-year-old male chief complaint of right ankle pain. States he was putting up some [employer] decorations slipped and then tripped and he heard a pop in his right ankle. Not sure which way it turned but does feel as though he broke it. He is unable to bear weight. Did not strike his head or lose consciousness. Is not on blood thinners. No other complaints. ROS: All systems are negative other than as noted in HPI. Physical Exam I have reviewed the triage vital signs. Const: Well nourished, well developed, appears stated age, no acute distress Eyes: PERRL, EOM intact, no conjunctival injection, vision grossly normal HENT: Neck supple without meningismus , Moist mucous membranes, no pharyengeal swelling or exudate CV: Regular rate and rhythm, Warm, well-perfused extremities. Chest non tender RESP: Lungs clear bilaterally, Unlabored respiratory effort GI: soft, non-tender, non-distended, no masses : MSK: Patient has positive deformity about the right ankle. No breaks in the skin. Able to wiggle his toes and has normal sensation. Dorsal pedal pulses palpable. Skin: Warm, dry. No rashes Neuro: Alert and oriented x4, GCS 15 , engineer fishing vessel II-XII grossly intact. Sensation and motor function of extremities grossly intact. Psych: Appropriate mood and affect. HISTORY OF PRESENTING ILLNESS MELIZA is a 54 year old Male and was seen by me at 30-Mar-2020 19:15 for a chief complaint of lower leg pain/injury (Patient fell on ice and has right leg pain. Leg I splinted per EMS . Pulses intact.)(1). Triage Information: Most recent Vital Sign Value Date Temp (F): 98.4 03-30-2020 19:06 Temp (C): 36.8 03-30-2020 19:06 Heart Rate (beats/min): 109 03-30-2020 19:06 Respirations (breaths/min): 18 03-30-2020 19:06 SpO2 (%): 98 03-30-2020 19:06 BP Systolic (mm Hg): 120 03-30-2020 19:06 BP Diastolic (mm Hg): 83 03-30-2020 19:06 PAST MEDICAL HISTORY ATTESTATION: I have reviewed and confirmed nurse's/medic's notes for patient's medications, allergies, medical history, and surgical history ALLERGIES/INTOLERANCES: Allergy Allergen: meloxicam Type: Drug Reaction: Resp Distress Rash Allergen: tolmetin Type: Drug Reaction: Resp Distress Rash HEALTH HISTORY: No documented data. OUTPATIENT MEDICATIONS: Home Medications Review Status for Reconciliation: N/A Med Status: N/A No documented data. SIGNIFICANT EVENTS: No documented data. RESULTS/VITAL SIGNS RESULTS: Radiology Results: Impression: Tibiotalar dislocation with widening of the tibiotalar joint, widening of the distal tibiofibular syndesmosis and widening of the medial clear space, suggestive of acute traumatic syndesmosis injury and deltoid ligament injury. Small calcifications at the anterior tibiotalar joint and posterior to the distal tibia, may be secondary to avulsion fractures or intra-articular loose bodies. Soft tissue swelling at the medial right ankle. Diffuse soft tissue swelling at the right foot. Cross-sectional imaging recommended for further evaluation. Xray Foot Complete Min 3 View [Mar 30 2020 8:50PM] Impression: Tibiotalar dislocation with widening of the tibiotalar joint, widening of the distal tibiofibular syndesmosis and widening of the medial clear space, suggestive of acute traumatic syndesmosis injury and deltoid ligament injury. Small calcifications at the anterior tibiotalar joint and posterior to the distal tibia, may be secondary to avulsion fractures or intra-articular loose bodies. Soft tissue swelling at the medial right ankle. Diffuse soft tissue swelling at the right foot. Cross-sectional imaging recommended for further evaluation. Xray Ankle 3 View [Mar 30 2020 8:50PM] Impression: Xray Foot Complete Min 3 View [Mar 30 2020 8:09PM] VITAL SIGNS: T PRBP SpO2O2(LPM) %FiO2 Method 30-Mar-2020 22:00:[id number]/99 92 room air, no respiratory support 30-Mar-2020 21:56:[id number]/105 94 room air, no respiratory support 30-Mar-2020 20:30:[id number]/102 94 30-Mar-2020 19:06:[id number]/8 3 98 MEDICAL DECISION MAKING/ED COURSE MDM/ED COURSE: Procedure note ankle reduction: Patient had mild dislocation with tibia anteriorly on the talus. Procedural sedation was performed. Improvement in alignment was achieved through traction. Patient tolerated procedure well. MSPs intact following placement. Procedure note: Procedural sedation: Procedural sedation is required to reduce the patient's right talotibial joint at the ankle. Respiratory was at bedside with suction and bag valve mask and O2 as needed. Timeout was taken. Patient was treated with Versed 2 mg and then etomidate 15 mg. Good procedural sedation was achieved and the right ankle joint was reduced. Patient is currently awake and alert. He tolerated procedu (more content not included)... Normal [facility] Triage - EDon 03-30-2020 Triage - ED Chart Review: ARRIVAL INFORMATION Mode of Arrival: ambulance Agency Name: [facility] CHIEF COMPLAINT MELIZA EASTMAN is a Male patient with a chief complaint of lower leg pain/injury (Patient fell on ice and has right leg pain. Leg I splinted per EMS . Pulses intact.). Triage Date/Time: 30-Mar-2020 19:06 Pain Rating (0-10): 10 = Severe Vital Signs: Temperature: 98.4F ( 36.8C) taken oral Blood Pressure: 120/83 Mean: Heart Rate: 109 Respiratory Rate: 18 Pulse Oximetry: 98% Height: 5 feet 10.00 inches. 177.8 CM Weight: 341.7 pounds. Calculated 155.0 kg. (stated) Calculated BMI (kg/m2): 49.030 Calculated BSA (m2) 2.77 [place] Coma Scale: Best Eye Response: (E4) spontaneous Best Motor Response: (M6) obeys commands Best Verbal Response: (V5) oriented [place] Score: 15 Cough lasting greater than 3 weeks: no Allergies: yes Patient has homicidal thoughts: no YAMILETH: 3 Risk Screens Suicide Risk Screen In the Past Month: Have you wished you were or wished you could go to sleep and not wake up no In the Past Month: Have you had any actual thoughts of killing yourself no In Your Lifetime: Have you ever done anything, started to do anything, or prepared to do anything to end your life no [place] Fall Scale Screening Has the patient fallen before (or is the patient in the ED as a result of a fall) has had a fall Does the patient have an impaired gait does not have impaired gait Is the patient cognitively impaired not cognitively impaired [place] Fall Scale History of falling (immediate or previous) yes (25) Secondary Diagnosis no (0) Intravenous Therapy/ Heparin/Saline Lock no (0) Gait/Transferring normal/bedrest/wheelcha ir (0) Ambulatory Aids none/bedrest/nurse assist (0) Mental Status oriented to own ability (0) [place] Fall Risk Score: 25 Interventions: Jn Fall Interventions: MODERATE INTERVENTIONS: *Low Interventions Plus: * falls risk band/sticker applied to patient, *yellow non-skid footwear, *instruct to call for assistance before getting out of bed, *bed/chair/bedside commode/toilet alarms, *sensory devices/ambulatory aides available and in reach, *medications reviewed for potential side effects and care planning. TRAVEL HISTORY Travel History Coronavirus Screening: no exposure or symptoms PAIN Pain Scale Used: JAVIER Pain Rating (0-10): 10 = Severe Past Medical History: Past Medical History Reviewedyes Electronic Signatures: Shey Sanderson (BRODERICK) (Signed 30-Mar-2020 19:13) Authored: Quick Triage, Risk Screens, Pain, Chart Review, Scores, Past Medical History Last Updated: 30-Mar-2020 19:13 by Shey Sanderson (BRODERICK) [facility] Metabolic Pane [facility] 10-20-2017 Alanine aminotransferase (ALT) 48 U/L Normal 14-65 [facility] Comment on above: Result Comment: This test result might be falsely depressed or falsely elevated onsamples drawn from patients taking Sulfasalazine and Sulfapyridine.Venipuncture should occur prior to taking either of these drugs. Performed By: #### C MET ####Unless otherwise noted, all testing performed by [address] [phone]: [id number] Director: Blue Bradford M.D. Albumin 3.3 g/dL Normal 3.2-5.2 [facility] Comment on above: Performed By: #### C MET ####Unless otherwise noted, all testing performed by [address] [phone]: [id number] Director: Blue Bradford M.D. Alkaline phosphatase (ALP) 59 U/L Normal 40-150 [facility] Comment on above: Performed By: #### C MET ####Unless otherwise noted, all testing performed by [address] [phone]: [id number] Director: Blue Bradford M.D. Aspartate aminotransferase (AST) 30 U/L Normal 0-45 [facility] Comment on above: Result Comment: This test result might be falsely depressed or falsely elevated onsamples drawn from patients taking Sulfasalazine and Sulfapyridine.Venipuncture should occur prior to taking either of these drugs. Performed By: #### C MET ####Unless otherwise noted, all testing performed by [place] [phone]: [id number] Director: Blue Bradford M.D. Bilirubin (total) 0.4 mg/dL Normal 0.3-1.2 [facility] Comment on above: Performed By: #### C MET ####Unless otherwise noted, all testing performed by [address] [phone]: [id number] Director: Blue Bradford M.D. Calcium 8.2 mg/dL Low 8.4-10.2 [facility] Comment on above: Performed By: #### C MET ####Unless otherwise noted, all testing performed by [address] [phone]: [id number] Director: Blue Bradford M.D. Chloride 105 mmol/L Normal 98-108 [facility] Comment on above: Performed By: #### C MET ####Unless otherwise noted, all testing performed by [address] [phone]: [id number] Director: Blue Bradford M.D. CO2 28 mmol/L Normal 21-32 [facility] Comment on above: Performed By: #### C MET ####Unless otherwise noted, all testing performed by [address] [phone]: [id number] Director: Blue Bradford M.D. Creatinine 1.14 mg/dL Normal 0.50-1.30 [facility] Comment on above: Performed By: #### C MET ####Unless otherwise noted, all testing performed by [address] [phone]: [id number] Director: Blue Bradford M.D. eGFR (black) mL/min/{1.73_m2} Normal [facility] Comment on above: Result Comment: Afri can [place] GFR Calc Performed By: #### C MET ####Unless otherwise noted, all testing performed by [address] [phone]: [id number] Director: Blue Bradford M.D. eGFR (non-black) mL/min/{1.73_m2} Normal [facility] Comment on above: Result Comment: Non- GFR CalceGFR is an estimated Glomerular Filtration Rate based on the valueof the patient's serum creatinine. In outpatients, eGFR should be usedas a helpful tool in screening for CKD. In inpatients or patients withacute renal failure, eGFR represents the GFR at the moment of the drawand should be used with caution. Performed By: #### C MET ####Unless otherwise noted, all testing performed by [address] [phone]: [id number] Director: Blue Bradford M.D. Glucose mass conc 110 mg/dL High 70-99 [facility] Comment on above: Result Comment: This test result might be falsely depressed or falsely elevated onsamples drawn from patients taking Sulfasalazine and Sulfapyridine.Venipuncture should occur prior to taking either of these drugs. Performed By: #### C MET ####Unless otherwise noted, all testing performed by [address] [phone]: [id number] Director: Blue Bradford M.D. Potassium molar conc 4.0 mmol/L Normal 3.5-5.1 [facility] Comment on above: Performed By: #### C MET ####Unless otherwise noted, all testing performed by [address] [phone]: [id number] Director: Blue Bradford M.D. Protein 6.0 g/dL Normal 6.0-8.0 [facility] Comment on above: Performed By: #### C MET ####Unless otherwise noted, all testing performed by [address] [phone]: [id number] Director: Blue Bradford M.D. Sodium 142 mmol/L Normal 135-145 [facility] Comment on above: Performed By: #### C MET ####Unless otherwise noted, all testing performed by [address] [place] [phone]: [id number] Director: Blue Bradford M.D. Urea nitrogen 18 mg/dL Normal 8-25 [facility] Comment on above: Performed By: #### C MET ####Unless otherwise noted, all testing performed by [address] [phone]: [id number] Director: Blue Bradford M.D. CBC with Diffon 10-19-2017 Basophils Auto #/vol (Bld) 0.0 K/mcL Normal 0-0.2 [facility] Comment on above: Performed By: #### C BCDIF, CHEMG ####Unless otherwise noted, all testing performed by [place] [phone]: [id number] Director: Blue Bradford M.D. Basophils/100 WBC Auto (Bld) 0.3 % Normal [facility] Comment on above: Performed By: #### C BCDIF, CHEMG ####Unless otherwise noted, all testing performed by [address] [phone]: [id number] Director: Blue Bradford M.D. Eosinophils 0.0 K/mcL Normal 0-0.5 [facility] Comment on above: Performed By: #### C BCDIF, CHEMG ####Unless otherwise noted, all testing performed by [place] [phone]: [id number] Director: Blue Bradford M.D. Eosinophils/100 leukocytes 0.4 % Normal [facility] Comment on above: Performed By: #### C BCDIF, CHEMG ####Unless otherwise noted, all testing performed by [address] [phone]: [id number] Director: Blue Bradford M.D. Erythrocyte distribution width Auto Ratio (RBC) 14.4 % High 10-14.3 [facility] Comment on above: Performed By: #### C BCDIF, CHEMG ####Unless otherwise noted, all testing performed by [address] [phone]: [id number] Director: Blue Bradford M.D. Erythrocytes (RBC) 4.90 M/mcL Normal 4.0-5.5 [facility] Comment on above: Performed By: #### C BCDIF, CHEMG ####Unless otherwise noted, all testing performed by [address] [phone]: [id number] Director: Blue Bradford M.D. Hematocrit (HCT) 43.5 % Normal 37.9-49.2 [facility] Comment on above: Performed By: #### C BCDIF, CHEMG ####Unless otherwise noted, all testing performed by [address] [phone]: [id number] Director: Blue Bradford M.D. Hemoglobin mass conc (Bld) 14.8 g/dL Normal 12.9-16.9 [facility] Comment on above: Performed By: #### C BCDIF, CHEMG ####Unless otherwise noted, all testing performed by [address], [place] [phone]: [id number] Director: Blue Bradford M.D. Lymphocytes 2.6 K/mcL Normal 0.9-3.6 [facility] Comment on above: Performed By: #### C BCDIF, CHEMG ####Unless otherwise noted, all testing performed by [address] [phone]: [id number] Director: Blue Bradford M.D. Lymphocytes/100 leukocytes 25.1 % Normal [facility] Comment on above: Performed By: #### C BCDIF, CHEMG ####Unless otherwise noted, all testing performed by [address] [phone]: [id number] Director: Blue Bradford M.D. MCH 30.2 pg Normal 27.7-34.6 [facility] Comment on above: Performed By: #### C BCDIF, CHEMG ####Unless otherwise noted, all testing performed by [address] [phone]: [id number] Director: Blue Bradford M.D. MCHC mass conc (RBC) 34.0 g/dL Normal 32.9-35.5 [facility] Comment on above: Performed By: #### C BCDIF, CHEMG ####Unless otherwise noted, all testing performed by [address] [phone]: [id number] Director: Blue Bradford M.D. MCV 88.7 fL Normal 82.8-99.3 [facility] Comment on above: Performed By: #### C BCDIF, CHEMG ####Unless otherwise noted, all testing performed by [address] [phone]: [id number] Director: Blue Bradford M.D. Monocytes 0.8 K/mcL High 0.2-0.6 [facility] Comment on above: Performed By: #### C BCDIF, CHEMG ####Unless otherwise noted, all testing performed by [address] [phone]: [id number] Director: Blue Bradford M.D. Monocytes/100 leukocytes 7.8 % Normal [facility] Comment on above: Performed By: #### C BCDIF, CHEMG ####Unless otherwise noted, all testing performed by [place] [phone]: [id number] Director: Blue Bradford M.D. Neutrophils 6.8 K/mcL Normal 1.4-6.8 [facility] Comment on above: Performed By: #### C BCDIF, CHEMG ####Unless otherwise noted, all testing performed by [address] [phone]: [id number] Director: Blue Bradford M.D. Platelet mean volume (PMV) 8.7 fL Normal 6.6-10.8 [facility] Comment on above: Performed By: #### C BCDIF, CHEMG ####Unless otherwise noted, all testing performed by [place] [phone]: [id number] Director: Blue Bradford M.D. Platelets 276 K/mcL Normal 139-354 [facility] Comment on above: Performed By: #### C BCDIF, CHEMG ####Unless otherwise noted, all testing performed by [address] [phone]: [id number] Director: Blue Bradford M.D. Segmented Neut % 66.4 % Normal [facility] Comment on above: Performed By: #### C BCDIF, CHEMG ####Unless otherwise noted, all testing performed by [address] [phone]: [id number] Director: Blue Bradford M.D. WBC (Leukocytes) 10.2 K/mcL Normal 3.6-10.4 [facility] Comment on above: Performed By: #### C BCDIF, CHEMG ####Unless otherwise noted, all testing performed by [address] [phone]: [id number] Director: Blue Bradford M.D. CHEMG (Basic Metabolic and M g)on 10-19-2017 Calcium 8.0 mg/dL Low 8.4-10.2 [facility] Comment on above: Performed By: #### C BCDIF, CHEMG ####Unless otherwise noted, all testing performed by [address] [phone]: [id number] Director: Blue Bradford M.D. Chloride 107 mmol/L Normal 98-108 [facility] Comment on above: Performed By: #### C BCDIF, CHEMG ####Unless otherwise noted, all testing performed by [address] [phone]: [id number] Director: Blue Bradford M.D. CO2 27 mmol/L Normal 21-32 [facility] Comment on above: Performed By: #### C BCDIF, CHEMG ####Unless otherwise noted, all testing performed by [address] [phone]: [id number] Director: Blue Bradford M.D. Creatinine 2.06 mg/dL High 0.50-1.30 [facility] Comment on above: Performed By: #### C BCDIF, CHEMG ####Unless otherwise noted, all testing performed by [address] [phone]: [id number] Director: Blue Bradford M.D. eGFR (black) 41 mL/min/{1.73_m2} Low >60 [facility] Comment on above: Result Comment: Afri can [place] GFR Calc Performed By: #### C BCDIF, CHEMG ####Unless otherwise noted, all testing performed by [address] [phone]: [id number] Director: Blue Bradford M.D. eGFR (non-black) 34 mL/min/{1.73_m2} Low >60 [facility] Comment on above: Result Comment: Non- GFR CalceGFR is an estimated Glomerular Filtration Rate based on the valueof the patient's serum creatinine. In outpatients, eGFR should be usedas a helpful tool in screening for CKD. In inpatients or patients withacute renal failure, eGFR represents the GFR at the moment of the drawand should be used with caution. Performed By: #### C BCDIF, CHEMG ####Unless otherwise noted, all testing performed by [place] [phone]: [id number] Director: Blue Bradford M.D. Glucose mass conc 132 mg/dL High 70-99 [facility] Comment on above: Result Comment: This test result might be falsely depressed or falsely elevated onsamples drawn from patients taking Sulfasalazine and Sulfapyridine.Venipuncture should occur prior to taking either of these drugs. Performed By: #### C BCDIF, CHEMG ####Unless otherwise noted, all testing performed by [place] [phone]: [id number] Director: Blue Bradford M.D. Magnesium 2.0 mg/dL Normal 1.6-2.4 [facility] Comment on above: Performed By: #### C BCDIF, CHEMG ####Unless otherwise noted, all testing performed by [place] [phone]: [id number] Director: Blue Bradford M.D. Potassium molar conc 4.4 mmol/L Normal 3.5-5.1 [facility] Comment on above: Performed By: #### C BCDIF, CHEMG ####Unless otherwise noted, all testing performed by [place] [phone]: [id number] Director: Blue Bradford M.D. Sodium 142 mmol/L Normal 135-145 [facility] Comment on above: Performed By: #### C BCDIF, CHEMG ####Unless otherwise noted, all testing performed by [address] [phone]: [id number] Director: Blue Bradford M.D. Urea nitrogen 12 mg/dL Normal - [facility] Comment on above: Performed By: #### C BCDIF, CHEMG ####Unless otherwise noted, all testing performed by [address] [phone]: [id number] Director: Blue Bradford M.D. Urinalysis, Routineon 2017 Bilirubin,Urine Negative Normal NEG;NEGATIVE [facility] Comment on above: Performed By: #### U A ####Unless otherwise noted, all testing performed by [address] [phone]: [id number] Director: Blue Bradford M.D. Blood,Urine Negative Normal NEG;NEGATIVE [facility] Comment on above: Performed By: #### U A ####Unless otherwise noted, all testing performed by [address] [phone]: [id number] Director: Blue Bradford M.D. Ketone,Urine Negative Normal NEG;NEGATIVE [facility] Comment on above: Performed By: #### U A ####Unless otherwise noted, all testing performed by [address] [phone]: [id number] Director: Blue Bradford M.D. Leuk.Esterase,Urine Negative Normal Negative [facility] Comment on above: Performed By: #### U A ####Unless otherwise noted, all testing performed by [address] [phone]: [id number] Director: Blue Bradford M.D. Mucus, Urine Rare Abnormal None Seen [facility] Comment on above: Performed By: #### U A ####Unless otherwise noted, all testing performed by [address] [phone]: [id number] Director: Blue Bradford M.D. Nitrite,Urine Negative Normal NEG;NEGATIVE [facility] Comment on above: Performed By: #### U A ####Unless otherwise noted, all testing performed by [address] [phone]: [id number] Director: Blue Bradford M.D. Protein,Urine Negative Normal NEG;NEGATIVE [facility] Comment on above: Performed By: #### U A ####Unless otherwise noted, all testing performed by [address] [phone]: [id number] Director: Blue Bradford M.D. Specific [place],Urine 1.021 Normal 1.003-1.029 [facility] Comment on above: Performed By: #### U A ####Unless otherwise noted, all testing performed by [address] [phone]: [id number] Director: Blue Bradford M.D. Squamous Epithelial 1 /HPF Normal 0-40 [facility] Comment on above: Performed By: #### U A ####Unless otherwise noted, all testing performed by [address] [phone]: [id number] Director: Blue Bradford M.D. Urine, bacteria in sediment Rare Normal NS;RARE [facility] Comment on above: Performed By: #### U A ####Unless otherwise noted, all testing performed by [address] [phone]: [id number] Director: Blue Bradford M.D. Urine, character Hazy Normal [facility] Comment on above: Performed By: #### U A ####Unless otherwise noted, all testing performed by [address] [phone]: [id number] Director: Bleu Bradford M.D. Urine, color Yellow Normal [facility] Comment on above: Performed By: #### U A ####Unless otherwise noted, all testing performed by [address] [phone]: [id number] Director: Blue Bradford M.D. Urine, erythrocytes in sediment by area 1 /[HPF] Normal 0-5 [facility] Comment on above: Performed By: #### U A ####Unless otherwise noted, all testing performed by [address] [phone]: [id number] Director: Blue Bradford M.D. Urine, glucose presence Negative Normal NEG;NEGATIVE [facility] Comment on above: Performed By: #### U A ####Unless otherwise noted, all testing performed by [address] [phone]: [id number] Director: Blue Bradford M.D. Urine, leukocytes in sedmiment 4 /[HPF] Normal 0-5 [facility] Comment on above: Performed By: #### U A ####Unless otherwise noted, all testing performed by [address] [phone]: [id number] Director: Blue Bradford M.D. Urine, pH 5.0 [pH] Normal 4.5-8.0 [facility] Comment on above: Performed By: #### U A ####Unless otherwise noted, all testing performed by [address] [phone]: [id number] Director: Blue Bradford M.D. Urobilinogen,Urine 2.0 mg/dL High <2 [facility] Comment on above: Performed By: #### U A ####Unless otherwise noted, all testing performed by [address] [phone]: [id number] Director: Blue Bradford M.D. Valproic Acidon 10-19-2017 Valproic Acid 30 mcg/mL Low 50-100 [facility] Comment on above: Result Comment: Resu lt should be correlated with last dose as reflected in the medicalrecord. Performed By: #### V ALP ####Unless otherwise noted, all testing performed by [address], [place] [phone]: [id number] Director: Savana Osborn Lvregis 10-18-2017 Acetaminophen mass conc <10 Normal 0-[address] [facility] Comment on above: Result Comment: Tyle nol - Therapeutic 10-30 ug/ml Toxic 4 hr. Post ingestion >150 ug/ml Toxic 8hr Post ingestion >75 ug/ml Toxic 12hr. Post ingestion >40 ug/ml Performed By: #### 2 [id number] ####REJIDeclan MaldonadoAbgSmeo0520 [place] [address] Auto Diffon 10-18-2017 Basophils Auto #/vol (Bld) 0.1 E3/mcL Normal 0.0-0.[address] [facility] Comment on above: Order Comment: Order Added by Discern Expert. Performed By: #### 2 [id number] ####REJI MaldonadoCauAuje5336 [place] [address] Basophils/100 WBC Auto (Bld) 0.9 % Normal 0.0-2.[address] [facility] Comment on above: Order Comment: Order Added by Discern Expert. Performed By: #### 2 [id number] ####REJI MaldonadoApqQlwt7080 [place] [address] Eos Absolute 0.0 E3/mcL Normal 0.0-0.[address] [facility] Comment on above: Order Comment: Order Added by Discern Expert. Performed By: #### 2 239936 ####REJI GeuZzbh9293 [place] [address] Eosinophils/100 WBC Auto (Bld) 0.6 % Normal 0.0-11.[address] [facility] Comment on above: Order Comment: Order Added by Discern Expert. Performed By: #### 2 929912 ####REJI WutSdxh8839 [place] [address] Lymphocytes Auto #/vol (Bld) 2.0 E3/mcL Normal 1.2-3.[address] [facility] Comment on above: Order Comment: Order Added by Discern Expert. Performed By: #### 2 [id number] ####REJI MaldonadoXfhYwgl9518 [place] [address] Lymphocytes/100 WBC Auto (Bld) 30.8 % Normal 20.0-55.[address] [facility] Comment on above: Order Comment: Order Added by Discern Expert. Performed By: #### 2 238072 ####REJI Gomezo1025 [place] [address] [place] Absolute 0.3 E3/mcL Normal 0.0-0.[address] [facility] Comment on above: Order Comment: Order Added by Discern Expert. Performed By: #### 2 759989 ####REJI Gomezo1025 [place] [address] Monocytes/100 WBC Auto (Bld) 5.0 % Normal 0.0-10.[address] [facility] Comment on above: Order Comment: Order Added by Discern Expert. Performed By: #### 2 601141 ####REJI Gomezo[address]25 [place] [address] Neutro Absolute 4.2 E3/mcL Normal 1.4-6.[address] [facility] Comment on above: Order Comment: Order Added by Discern Expert. Performed By: #### 2 431968 ####REJI MaldonadoMuvIros0842 [place] [address] Neutro Auto 62.7 % Normal 37.0-75.[address] [facility] Comment on above: Order Comment: Order Added by Discern Expert. Performed By: #### 2 411286 ####REJI MaldonadoOwbMmsl6140 [place] [address] BMPon 10-18-2017 Creatinine mass conc 1.9 mg/dL High 0.6-1.3 [facility] Comment on above: Performed By: #### 2 400981 ####REJI MaldonadoDbdOmis6314 [place] [address] Urea nitrogen mass conc 11 mg/dL Normal 7-[address] [facility] Comment on above: Performed By: #### 2 356887 ####REJI UabRjko3311 [place] [address] Urea nitrogen/Creatinine mass ratio 5.8 ratio Normal 5.4-30.[address] [facility] Comment on above: Performed By: #### 2 287392 ####REJI MaldonadoWeyZypw0853 [place] [address] Calcium mass conc 8.9 mg/dL Normal 8.4-10.2 [facility] Comment on above: Performed By: #### 2 769693 ####REJI MaldonadoBpxCztx2233 [place] [address] Chloride molar conc 103 mmol/L Normal 98-107 [facility] Comment on above: Performed By: #### 2 932951 ####REJI HmsIiam3537 [place] [address] CO2 molar conc 25.1 mmol/L Normal 24.0-30.[address] [facility] Comment on above: Performed By: #### 2 169324 ####REJI VqoWqif3525 [place] [address] Glucose mass conc 164 mg/dL High 70-99 [facility] Comment on above: Performed By: #### 2 872799 ####REJI BghUpyx5119 [place] [address] Potassium molar conc 4.2 mmol/L Normal 3.5-5.1 [facility] Comment on above: Performed By: #### 2 688291 ####REJI Dietz1025 [place] [address] Sodium molar conc 138 mmol/L Normal 136-145 [facility] Comment on above: Performed By: #### 2 124613 ####REJI ZoeNukb7484 [place] [address] CBC w/ Auto Diffon 8 Erythrocyte distribution width Auto Ratio (RBC) 14.4 % Normal 11.5-14.[address] [facility] Comment on above: Performed By: #### 2 [id number] ####REJI MaldonadoFvfBfsj4402 [place] [address] Hematocrit Auto Volume Fraction (Bld) 47.7 % Normal 42.0-52.[address] [facility] Comment on above: Performed By: #### 2 441789 ####REJI MaldonadoFtfUlsw6344 [place] [address] Hemoglobin mass conc (Bld) 15.8 g/dL Normal 13.5-18.[address] [facility] [facility] Comment on above: Performed By: #### 2 [id number] ####REJI [id number] [place] [address] MCH Auto Entitic mass (RBC) 29.6 pg Normal 27.0-31.[address] [facility] Comment on above: Performed By: #### 2 [id number] ####REJI MaldonadoVncRzcq8683 [place] [address] MCHC Auto mass conc (RBC) 33.2 g/dL Normal 33.0-37.[address] [facility] Comment on above: Performed By: #### 2 [id number] ####REJI [id number] [place] [id number] MCV Auto Entitic volume (RBC) 89.2 fL Normal 78.0-100.[address] [facility] Comment on above: Performed By: #### 2 [id number] ####REJI [id number] [place] [id number] Platelet mean volume Auto Entitic volume (Bld) 8.7 fL Normal 7.4-11.[address] [facility] Comment on above: Performed By: #### 2 [id number] ####REJI MaldonadoAilEvko0703 [place] [address] Platelets Auto #/vol (Bld) 280 E3/mcL Normal 130-[address] [facility] Comment on above: Performed By: #### 2 [id number] ####REJI MaldonadoZedUuxe3636 [place] [address] RBC Auto #/vol (Bld) 5.35 E6/mcL Normal 3.90-6.10 [facility] Comment on above: Performed By: #### 2 [id number] ####REJI MaldonadoBziQqgt1009 [place] [address] WBC Auto #/vol (Bld) 6.6 E3/mcL Normal 3.6-11.0 [facility] Comment on above: Performed By: #### 2 [id number] ####REJI MaldonadoSbqSalq0713 [place] [address] Ethanolon 10-18-2017 Ethanol Lvl 255 mg/dL Critically abnormal 0-[address] [facility] Comment on above: Result Comment: Crit ical Result ETOH: Called to: ABDI LINDO at: 20:49:09 by:OC Read back by:ABDI LINDOSAMPLES WITH CONCENTRATIONS <15 MG/DL SHOULD BEINTERPRETED NEGATIVE. FOR MEDICAL USE ONLY Performed By: #### 2 [id number] ####REJI [id number] [place] [address] Salicylateon 10-18-2017 Salicylate Lvl <4 Low 15-[address] [facility] Comment on above: Performed By: #### 2 [id number] ####REJI [id number] [place] [address] eGFRon 10-18-2017 eGFR AA 45 mL/min/1.73 m2 [facility] Comment on above: Order Comment: Order added by Discern Expert. Performed By: #### 1 [id number] ####REJI [id number] [place] [address] GFR/1.73 sq M predicted among non-blacks MDRD vol rate/area (S/P/Bld) 37 mL/min/1.73 m2 [facility] Comment on above: Order Comment: Order added by Discern Expert. Performed By: #### 1 [id number] ####REJI TjySfqv1940 [place] [address] No Panel Information [facility] Vital Signs Date Time Vital Sign Value Performing Clinician Facility 02-27-2025 13:40-[address] KIRAN NICOHLS MD [facility] 02-27-2025 13:40-[address] KIRAN Torres [facility] 02-27-2025 13:40-0500 Body height 177.[address] KIRAN NICHOLS MD [facility] 02-27-2025 13:40-0500 Body weight 145.[address] KIRAN NICHOLS MD [facility] 02-27-2025 13:40-0500 Body weight 46.03 kg/m2 DR KIRAN NICHOSL MD [facility] 02-27-2025 13:40-0500 Diastolic Blood Pressure Non-Invasive 73 mm[Hg] DR KIRAN NICHOLS MD [facility] 02-27-2025 13:40-0500 Heart rate 78 /min DR KIRAN NICHOLS MD [facility] 02-27-2025 13:40-0500 Respiratory rate 18 /min DR KIRAN NICHOLS MD [facility] 02-27-2025 13:40-0500 Systolic Blood Pressure Non-Invasive 118 mm[Hg] DR KIRAN NICHOLS MD [facility] 01-19-2025 16:01-0400 Body temperature 96.8 [degF] Maria Luisa Varma MD Work Phone: [facility] 01-19-2025 16:01-0400 Diastolic blood pressure 71 mm[Hg] Maria Luisa Varma MD Work Phone: [facility] 01-19-2025 16:01-0400 Heart rate 84 /min Maria Luisa Varma MD Work Phone: [facility] 01-19-2025 16:01-0400 Respiratory rate 16 /min Maria Luisa Varma MD Work Phone: [facility] 01-19-2025 16:01-0400 SaO2% (BldA) [Mass fraction] 95 % Maria Luisa Varma MD Work Phone: [facility] 01-19-2025 16:01-0400 Systolic blood pressure 112 mm[Hg] Maria Luisa Varma MD Work Phone: [facility] 01-16-2025 10:15-0400 Body height 176.5 cm Maria Luisa Varma MD Work Phone: [facility] 01-16-2025 10:15-0400 Body mass index (BMI) [Ratio] 45.15 kg/m2 Maria Luisa Varma MD Work Phone: [facility] 01-16-2025 10:15-0400 Body weight 140.7 kg Maria Luisa Varma MD Work Phone: [facility] 01-13-2025 10:35-0400 Body height 177.8 cm Nehemias Neumann MD Work Phone: [facility] 01-13-2025 10:35-0400 Body mass index (BMI) [Ratio] 45.34 kg/m2 Nehemias Neumann MD Work Phone: [facility] 01-13-2025 10:35-0400 Body temperature 97.81 [degF] Nehemias Neumann MD Work Phone: [facility] 01-13-2025 10:35-0400 Body weight 143.34 kg Nehemias Neumann MD Work Phone: [facility] 01-13-2025 10:35-0400 Diastolic blood pressure 74 mm[Hg] Nehemias Neumann MD Work Phone: [facility] 01-13-2025 10:35-0400 Heart rate 91 /min Nehemias Neumann MD Work Phone: [facility] 01-13-2025 10:35-0400 Respiratory rate 16 /min Nehemias Neumann MD Work Phone: [facility] 01-13-2025 10:35-0400 SaO2% (BldA) [Mass fraction] 94 % Nehemias Neumann MD Work Phone: [facility] 01-13-2025 10:35-0400 Systolic blood pressure 101 mm[Hg] Nehemias Neumann MD Work Phone: [facility] 01-02-2025 14:59-0400 Body height 177.[address] Jj Eason MD Work Phone: 1(845)556-436961 [address] 01-02-2025 14:59-0400 Body mass index (BMI) [Ratio] 46.3 kg/m2 Dr. Jj Eason MD Work Phone: 3(695)760-411685 [place] [address] 01-02-2025 14:59-0400 Body temperature 97.3 [degF] Dr. Jj Eason MD Work Phone: 5(322)936-270685 [place] [address] 01-02-2025 14:59-0400 Body weight 146.[address] Jj Eason MD Work Phone: 1(453)795-348885 [place] [address] 01-02-2025 14:59-0400 Diastolic blood pressure 70 mm[Hg] Dr. Jj Eason MD Work Phone: 4(048)645-839385 [place] [address] 01-02-2025 14:59-0400 Heart rate 83 /min Dr. Jj Eason MD Work Phone: 3(354)474-368985 [place] [address] 01-02-2025 14:59-0400 Respiratory rate 18 /min Dr. Jj Eason MD Work Phone: 4(727)389-494585 [place] [address] 01-02-2025 14:59-0400 SaO2% (BldA) [Mass fraction] 93 % Dr. Jj Eason MD Work Phone: 6(920)250-196285 [place] [address] 01-02-2025 14:59-0400 Systolic blood pressure 105 mm[Hg] Dr. Jj Eason MD Work Phone: 6(814)469-190685 [place] [address] 09-23-2024 09:54-0400 Body height 177.[address] Jj Eason MD Work Phone: 4(097)040-624185 [place] [address] 09-23-2024 09:54-0400 Body mass index (BMI) [Ratio] 50.9 kg/m2 Dr. Jj Eason MD Work Phone: 0(345)455-949285 [place] [address] 09-23-2024 09:54-0400 Body weight 161.[address] Jj Eason MD Work Phone: 3(199)094-191485 [place] [address] 09-23-2024 09:54-0400 Diastolic blood pressure 89 mm[Hg] Dr. Jj Eason MD Work Phone: 1(278)740-210085 [place] [address] 09-23-2024 09:54-0400 Heart rate 79 /min Dr. Jj Eason MD Work Phone: 5(279)163-564950 [place] [address] 09-23-2024 09:54-0400 Respiratory rate 18 /min Dr. Jj Eason MD Work Phone: 4(464)300-151885 [place] [address] 09-23-2024 09:54-0400 Systolic blood pressure 156 mm[Hg] Dr. Jj Eason MD Work Phone: 5(853)068-277585 [place] [address] 08-15-2024 09:00-0400 Body temperature 98.5 [degF] Dr. Jj Eason MD Work Phone: 1(644)777-384985 [place] [address] 08-15-2024 09:00-0400 Diastolic blood pressure 99 mm[Hg] Dr. Jj Eason MD Work Phone: 1(860)634-643385 [place] [address] 08-15-2024 09:00-0400 Heart rate 66 /min Dr. Jj Eason MD Work Phone: 0(870)458-797185 [place] [address] 08-15-2024 09:00-0400 Respiratory rate 16 /min Dr. Jj Eason MD Work Phone: 1(065)728-744485 [place] [address] 08-15-2024 09:00-0400 SaO2% (BldA) [Mass fraction] 95 % Dr. Jj Eason MD Work Phone: 3(629)312-067085 [place] [address] 08-15-2024 09:00-0400 Systolic blood pressure 158 mm[Hg] Dr. Jj Eason MD Work Phone: 5(075)054-469685 [place] [address] 08-15-2024 07:37-0400 Body height 177.[address] Jj Eason MD Work Phone: 8(734)704-417185 [place] [address] 08-15-2024 07:37-0400 Body mass index (BMI) [Ratio] 49 kg/m2 Dr. Jj Eason MD Work Phone: 4(822)181-727085 [place] [address] 08-15-2024 07:37-0400 Body weight [address] Jj Eason MD Work Phone: 2(115)525-990085 [place] [address] 08-04-2024 11:20-0400 Body height 177.[address] Jj Eason MD Work Phone: [facility] 08-04-2024 11:20-0400 Body mass index (BMI) [Ratio] 50.2 kg/m2 Dr. Jj Eason MD Work Phone: 1(663)136-623350 [place] [address] 08-04-2024 11:20-0400 Body weight 158.[address] Jj Eason MD Work Phone: 6(055)093-061850 [place] [address] 07-28-2024 10:43-0400 Body mass index (BMI) [Ratio] 49.5 kg/m2 Dr. Jj Eason MD Work Phone: 8(415)592-805961 [address] 07-28-2024 10:43-0400 Body weight 156.[address] Jj Eason MD Work Phone: 3(645)638-421485 [place] [address] 07-19-2024 12:59-0400 Body mass index (BMI) [Ratio] 49.5 kg/m2 Dr. Jj Eason MD Work Phone: 3(798)643-315461 [address] 07-19-2024 12:59-0400 Body weight 156.[address] Jj Eason MD Work Phone: 6(702)914-544585 [place] [address] 06-13-2024 09:05-0500 Body mass index (BMI) [Ratio] 47.9 kg/m2 Dr. Jj Eason MD Work Phone: 7(268)840-061350 [place] [address] 06-13-2024 09:05-0500 Body temperature 97.7 [degF] Dr. Jj Eason MD Work Phone: 6(443)710-089750 [place] [address] 06-13-2024 09:05-0500 Body weight 151.[address] Jj Eason MD Work Phone: 7(424)052-084685 [place] [address] 06-13-2024 09:05-0500 Diastolic blood pressure 94 mm[Hg] Dr. Jj Eason MD Work Phone: 6(904)953-400250 [place] [address] 06-13-2024 09:05-0500 Heart rate 80 /min Dr. Jj Eason MD Work Phone: 0(484)335-582750 [place] [address] 06-13-2024 09:05-0500 Respiratory rate 16 /min Dr. Jj Eason MD Work Phone: [facility] 06-13-2024 09:05-0500 SaO2% (BldA) [Mass fraction] 95 % Dr. Jj Eason MD Work Phone: [facility] 06-13-2024 09:05-0500 Systolic blood pressure 166 mm[Hg] Dr. Jj Eason MD Work Phone: 0(541)300-466461 [address] 05-02-2024 14:11-0500 Body temperature 98 [degF] Dr. Jj Eason MD Work Phone: 0(922)775-087361 [address] 05-02-2024 14:11-0500 Diastolic blood pressure 80 mm[Hg] Dr. Jj Eason MD Work Phone: 4(391)680-993861 [address] 05-02-2024 14:11-0500 Heart rate 70 /min Dr. Jj aEson MD Work Phone: 3(982)814-069150 [place] [address] 05-02-2024 14:11-0500 Respiratory rate 16 /min Dr. Jj Eason MD Work Phone: 0(771)104-284250 [place] [address] 05-02-2024 14:11-0500 SaO2% (BldA) [Mass fraction] 98 % Dr. Jj Eason MD Work Phone: 8(091)106-570850 [place] [address] 05-02-2024 14:11-0500 Systolic blood pressure 158 mm[Hg] Dr. Jj Eason MD Work Phone: 8(299)283-404750 [place] [address] 05-02-2024 09:09-0500 Body mass index (BMI) [Ratio] 50.8 kg/m2 Dr. Jj Eason MD Work Phone: 2(043)543-459050 [place] [address] 05-02-2024 09:09-0500 Body weight 160.[address] Jj Eason MD Work Phone: [facility] 08-31-2023 11:45-0400 Body temperature 97.6 [degF] Dr. Jj Eason Work Phone: [facility] 08-31-2023 11:45-0400 Diastolic blood pressure 99 mm[Hg] Dr. Jj Eason Work Phone: [facility] 08-31-2023 11:45-0400 Heart rate 69 /min Dr. Jj Eason Work Phone: [facility] 08-31-2023 11:45-0400 Respiratory rate 16 /min Dr. Jj Eason Work Phone: [facility] 08-31-2023 11:45-0400 SaO2% (BldA) [Mass fraction] 94 % Dr. Jj Eason Work Phone: [facility] 08-31-2023 11:45-0400 Systolic blood pressure 152 mm[Hg] Dr. Jj Eason Work Phone: [facility] 08-31-2023 10:34-0400 Body height 177.[address] Jj Eason Work Phone: [facility] 08-31-2023 10:34-0400 Body mass index (BMI) [Ratio] 49.9 kg/m2 Dr. Jj Eason Work Phone: [facility] 08-31-2023 10:34-0400 Body weight [address] Jj Eason Work Phone: [facility] 08-11-2023 13:53-0400 Body height 175.3 cm Chapo Cortez MD Work Phone: [facility] 08-11-2023 13:53-0400 Body weight 140.6 kg Chapo Cortez MD Work Phone: [facility] 08-11-2023 13:53-0400 Diastolic blood pressure 95 mm[Hg] Chapo Cortez MD Work Phone: [facility] 08-11-2023 13:53-0400 Heart rate 68 /min Chapo Cortez MD Work Phone: [facility] 08-11-2023 13:53-0400 Systolic blood pressure 165 mm[Hg] Chapo Cortez MD Work Phone: [facility] 07-15-2023 10:08-0400 Body height 177.[address] Jj Eason Work Phone: [facility] 07-15-2023 10:08-0400 Body mass index (BMI) [Ratio] 47.3 kg/m2 Dr. Jj Eason Work Phone: [facility] 07-15-2023 10:08-0400 Body weight 149.[address] Jj Eason Work Phone: [facility] 07-15-2023 10:08-0400 Diastolic blood pressure 89 mm[Hg] Dr. Jj Eason Work Phone: [facility] 07-15-2023 10:08-0400 Heart rate 71 /min Dr. Jj Eason Work Phone: [facility] 07-15-2023 10:08-0400 Respiratory rate 18 /min Dr. Jj Eason Work Phone: [facility] 07-15-2023 10:08-0400 SaO2% (BldA) [Mass fraction] 93 % Dr. Jj Eason Work Phone: [facility] 07-15-2023 10:08-0400 Systolic blood pressure 131 mm[Hg] Dr. Jj Eason Work Phone: [facility] 03-07-2023 13:13-0500 Body temperature 97.1 [degF] Dr. Jj Eason Work Phone: [facility] 03-07-2023 13:13-0500 Diastolic blood pressure 93 mm[Hg] Dr. Jj Eason Work Phone: [facility] 03-07-2023 13:13-0500 Heart rate 74 /min Dr. Jj Eason Work Phone: [facility] 03-07-2023 13:13-0500 Respiratory rate 18 /min Dr. Jj Eason Work Phone: [facility] 03-07-2023 13:13-0500 SaO2% (BldA) [Mass fraction] 97 % Dr. Jj Eason Work Phone: [facility] 03-07-2023 13:13-0500 Systolic blood pressure 157 mm[Hg] Dr. Jj Eason Work Phone: [facility] 03-07-2023 04:56-0500 Body mass index (BMI) [Ratio] 44.5 kg/m2 Dr. Jj Eason Work Phone: [facility] 03-07-2023 04:56-0500 Body weight 140.[address] Jj Eason Work Phone: [facility] 03-06-2023 12:01-0500 Body height 177.[address] Jj Eason Work Phone: [facility] 02-28-2023 18:56-0400 Body temperature 98 [degF] Dr. Jj Eason Work Phone: [facility] 02-28-2023 18:56-0400 Diastolic blood pressure 83 mm[Hg] Dr. Jj Eason Work Phone: [facility] 02-28-2023 18:56-0400 Heart rate 71 /min Dr. Jj Eason Work Phone: [facility] 02-28-2023 18:56-0400 Respiratory rate 18 /min Dr. Jj Eason Work Phone: [facility] 02-28-2023 18:56-0400 SaO2% (BldA) [Mass fraction] 98 % Dr. Jj Eason Work Phone: [facility] 02-28-2023 18:56-0400 Systolic blood pressure 138 mm[Hg] Dr. Jj Eason Work Phone: [facility] 02-26-2023 11:53-0400 Body height 177.[address] Jj Eason Work Phone: [facility] 02-26-2023 11:53-0400 Body weight 134.[address] Jj Eason Work Phone: [facility] 02-25-2023 16:25-0400 Body mass index (BMI) [Ratio] 42.6 kg/m2 Dr. Jj Eason Work Phone: [facility] 02-25-2023 16:13-0400 Diastolic blood pressure 75 mm[Hg] Dr. Jj Eason Work Phone: [facility] 02-25-2023 16:13-0400 Heart rate 63 /min Dr. Jj Eason Work Phone: 5(660)827-611550 [place] [address] 02-25-2023 16:13-0400 Respiratory rate 13 /min Dr. Jj Eason Work Phone: 4(134)392-235450 [place] [address] 02-25-2023 16:13-0400 SaO2% (BldA) [Mass fraction] 98 % Dr. Jj Eason Work Phone: 1(064)986-923150 [place] [address] 02-25-2023 16:13-0400 Systolic blood pressure 97 mm[Hg] Dr. Jj Eason Work Phone: 8(375)979-608450 [place] [address] 02-25-2023 12:32-0400 Body height 177.[address] Jj Eason Work Phone: 2(887)759-711261 [address] 02-25-2023 12:32-0400 Body mass index (BMI) [Ratio] 43.4 kg/m2 Dr. Jj Eason Work Phone: 3(942)398-778250 [place] [address] 02-25-2023 12:32-0400 Body temperature 98.2 [degF] Dr. Jj Eason Work Phone: [facility] 02-25-2023 12:32-0400 Body weight 137.[address] Jj Eason Work Phone: [facility] 01-21-2023 10:04-0400 Body temperature 98.9 [degF] Dr. Jj Eason Work Phone: [facility] 01-21-2023 10:04-0400 Diastolic blood pressure 109 mm[Hg] Dr. Jj Eason Work Phone: [facility] 09-27-2023 10:04-0400 Heart rate 72 /min Dr. Jj Eason Work Phone: [facility] 01-21-2023 10:04-0400 Respiratory rate 14 /min Dr. Jj Eason Work Phone: [facility] 01-21-2023 10:04-0400 SaO2% (BldA) [Mass fraction] 96 % Dr. Jj Eason Work Phone: [facility] 01-21-2023 10:04-0400 Systolic blood pressure 170 mm[Hg] Dr. Jj Eason Work Phone: 6(476)937-890161 [address] 01-17-2023 11:49-0400 Body height 177.[address] Jj Eason Work Phone: 2(218)280-399985 [place] [address] 01-17-2023 11:49-0400 Body weight 146.[address] Jj Eason Work Phone: 9(888)139-436961 [address] 01-12-2023 23:30-0400 Body mass index (BMI) [Ratio] 46.4 kg/m2 Dr. Jj Eason Work Phone: [facility] 01-12-2023 22:35-0400 Body temperature 97.6 [degF] Dr. Jj Eason Work Phone: [facility] 01-12-2023 22:35-0400 Diastolic blood pressure 82 mm[Hg] Dr. Jj Eason Work Phone: [facility] 01-12-2023 22:35-0400 Heart rate 65 /min Dr. Jj Eason Work Phone: [facility] 01-12-2023 22:35-0400 Respiratory rate 20 /min Dr. Jj Eason Work Phone: [facility] 01-12-2023 22:35-0400 SaO2% (BldA) [Mass fraction] 92 % Dr. Jj Eason Work Phone: [facility] 01-12-2023 22:35-0400 Systolic blood pressure 130 mm[Hg] Dr. Jj Eason Work Phone: 1(648)779-068750 [place] [address] 01-12-2023 19:08-0400 Body height 175.[address] Jj Eason Work Phone: 7(861)848-482250 [place] [address] 09-29-2022 12:15-0400 Body temperature 99.6 [degF] Dr. Jj Eason Work Phone: 4(922)548-039585 [place] [address] 09-29-2022 12:15-0400 Diastolic blood pressure 69 mm[Hg] Dr. Jj Eason Work Phone: 8(245)092-222985 [place] [address] 09-29-2022 12:15-0400 Heart rate 69 /min Dr. Jj Eason Work Phone: 8(230)919-362585 [place] [address] 09-29-2022 12:15-0400 Respiratory rate 16 /min Dr. Jj Eason Work Phone: 9(303)607-721985 [place] [address] 09-29-2022 12:15-0400 SaO2% (BldA) [Mass fraction] 92 % Dr. Jj Eason Work Phone: 6(213)354-404885 [place] [address] 09-29-2022 12:15-0400 Systolic blood pressure 130 mm[Hg] Dr. Jj Eason Work Phone: 6(673)607-165685 [place] [address] 09-29-2022 11:18-0400 Body height 177.[address] Jj Eason Work Phone: 9(852)628-163185 [place] [address] 09-29-2022 11:18-0400 Body mass index (BMI) [Ratio] 52.8 kg/m2 Dr. Jj Eason Work Phone: 9(013)026-874850 [place] [address] 09-29-2022 11:18-0400 Body weight 166.[address] Jj Eason Work Phone: 1(372)069-618350 [place] [address] 05-27-2022 14:16-0500 Body height 177.[address] Jj Eason Work Phone: 5(766)018-854285 [place] [address] 05-27-2022 14:16-0500 Body mass index (BMI) [Ratio] 51 kg/m2 Dr. Jj Eason Work Phone: 4(114)454-314650 [place] [address] 05-27-2022 14:16-0500 Body weight 161.[address] Jj Eason Work Phone: [facility] 05-27-2022 14:16-0500 Diastolic blood pressure 86 mm[Hg] Dr. Jj Eason Work Phone: [facility] 05-27-2022 14:16-0500 Heart rate 66 /min Dr. Jj Eason Work Phone: [facility] 05-27-2022 14:16-0500 Respiratory rate 18 /min Dr. Jj Eason Work Phone: [facility] 05-27-2022 14:16-0500 Systolic blood pressure 139 mm[Hg] Dr. Jj Eason Work Phone: [facility] 03-17-2022 14:50-0500 Body temperature 97.8 [degF] Dr. Jj Eason Work Phone: [facility] 03-17-2022 14:50-0500 Diastolic blood pressure 83 mm[Hg] Dr. Jj Eason Work Phone: [facility] 03-17-2022 14:50-0500 Heart rate 66 /min Dr. Jj Eason Work Phone: [facility] 03-17-2022 14:50-0500 Respiratory rate 16 /min Dr. Jj Eason Work Phone: [facility] 03-17-2022 14:50-0500 SaO2% (BldA) [Mass fraction] 94 % Dr. Jj Eason Work Phone: [facility] 03-17-2022 14:50-0500 Systolic blood pressure 144 mm[Hg] Dr. Jj Eason Work Phone: [facility] 03-17-2022 12:30-0500 Body height 177.[address] Jj Eason Work Phone: [facility] Work Phone: 03-17-2022 12:30-0500 Body mass index (BMI) [Ratio] 50.5 kg/m2 Dr. Jj Eason Work Phone: [facility] 03-17-2022 12:30-0500 Body weight 159.[address] Jj Eason Work Phone: [facility] 12-03-2021 15:32-0400 Body mass index (BMI) [Ratio] 50.2 kg/m2 Dr. Jj Eason Work Phone: [facility] Work Phone: 12-03-2021 15:32-0400 Body weight 158.[address] Jj Eason Work Phone: [facility] Work Phone: 12-03-2021 15:32-0400 Diastolic blood pressure 87 mm[Hg] Dr. Jj Eason Work Phone: [facility] Work Phone: 12-03-2021 15:32-0400 Heart rate 75 /min Dr. Jj Eason Work Phone: [facility] Work Phone: 12-03-2021 15:32-0400 Respiratory rate 18 /min Dr. Jj Eason Work Phone: [facility] Work Phone: 12-03-2021 15:32-0400 SaO2% (BldA) [Mass fraction] 95 % Dr. Jj Eason Work Phone: [facility] Work Phone: 12-03-2021 15:32-0400 Systolic blood pressure 146 mm[Hg] Dr. Jj Eason Work Phone: [facility] Work Phone: Encounters Encounter Date Encounter Type Care Provider Facility Start: 03-21-2025 jami Eason Facility:[facility] Start: 03-03-2025 End: 03-03-2025 ambulatory JJ EASON Facility:[facility] Start: 02-27-2025 End: 02-27-[address] KIRAN NICHOLS MD Facility:[facility] Start: 02-27-2025 End: 02-27-[address] KIRAN NICHOLS MD [facility] Start: 02-27-2025 End: 02-27-[address] KIRAN NICHOLS MD [facility] Start: 02-27-2025 End: 02-27-2025 ambulatory NOT RECORDED PHYSICIAN Facility:[facility] Start: 02-22-2025 ambulatory NOT RECORDED PHYSICIAN Facility:[facility] Start: 01-25-2025 End: 01-25-2025 Encounter identifier Maria Luisa V Mary Jr Work Phone: [facility] Start: 01-25-2025 ambulatory Maria Luisa V Mary Jr [facility] Start: 01-20-2025 End: 01-20-2025 Encounter identifier Maria Luisa V Mary Jr Work Phone: [facility] Start: 01-20-2025 ambulatory Maria Luisa V Mary Jr [facility] Start: 01-19-2025 End: 01-19-2025 Encounter identifier Maria Luisa V Mary Jr Work Phone: [facility] [place] Work Phone: Start: 01-19-2025 ambulatory Maria Luisa V Mary Jr [facility] Start: 01-18-2025 End: 01-18-2025 Encounter identifier Maria Luisa V Mary Jr Work Phone: [facility] Start: 01-18-2025 ambulatory Maria Luisa V Mary Jr [facility] Start: 01-18-2025 End: 01-18-2025 Encounter identifier Maria Luisa V Mary Jr Work Phone: [facility] Work Phone: Start: 01-18-2025 ambulatory Maria Luisa V Mary Jr [facility] Start: 01-17-2025 End: 01-17-2025 Encounter identifier Maria Luisa V Mary Carr Work Phone: [facility] [place] Work Phone: Start: 01-17-2025 ambulatory Maria Luisa V Mary Jr [facility] Start: 01-16-2025 End: 01-16-2025 Encounter identifier Jagdeep Keller Work Phone: [facility] Start: 01-16-2025 End: 01-19-2025 ambulatory JJ EASON [facility] Start: 01-16-2025 End: 01-19-2025 Evaluation and management of inpatient Maria Luisa Varma MD Work Phone: [facility] Start: 01-16-2025 End: 01-19-2025 Subsequent hospital visit by physician Maria Luisa Varma MD Work Phone: [facility] Start: 01-16-2025 End: 01-16-2025 Evaluation and management of inpatient Nehemias Neumann MD Work Phone: [facility] Start: 01-16-2025 End: 01-16-2025 Subsequent hospital visit by physician Nehemias Neumann MD Work Phone: [facility] Comment on above: Heterotopic ossifica tion (Primary Dx) Start: 01-16-2025 ambulatory Maria Luisa [facility] Start: 01-16-2025 ambulatory Jagdeep [facility] Start: 01-14-2025 Encounter for genera l adult medical examination without abnormal findings [facility] Start: 01-13-2025 ambulatory MARIA LUISA M[facility] Start: 01-13-2025 End: 01-13-2025 Evaluation and management of inpatient Nehemias Neumann MD Work Phone: [facility] Start: 01-13-2025 End: 01-13-2025 Subsequent hospital visit by physician Nehemias Neumann MD Work Phone: [facility] Comment on above: Heterotopic ossifica tion (Primary Dx) Start: 01-13-2025 End: 01-13-2025 Encounter identifier Maria Luisa Varma Jr Work Phone: [facility] Start: 01-13-2025 ambulatory Maria Luisa V [facility] Start: 01-06-2025 End: 01-06-2025 Encounter identifier Maria Luisa Varma Jr Work Phone: [facility] Start: 01-06-2025 ambulatory Maria Luisahoa Varma Jr [facility] Start: 01-04-2025 End: 01-04-2025 Encounter identifier Maria Luisa Varma Jr Work Phone: [facility] Start: 01-04-2025 ambulatory Maria Luisahoa [facility]ENK[facility] Start: 01-02-2025 End: 01-02-[address] Jj Eason MD Work Phone: -[facility] Start: 01-02-2025 End: 01-02-[address] Jean-Paul Estrada MD -[facility] Work Phone: Start: 01-02-2025 End: 01-02-[address] Jean-Paul Estrada MD -[facility] Work Phone: Start: 01-02-2025 End: 01-02-[address] Jj Eason MD Work Phone: -[facility] Start: 01-02-2025 End: 01-02-2025 ambulatory Jean-Paul Estrada Facility:[facility] Start: 12-27-2024 End: 12-27-2024 Encounter identifier Maria Luisa Varma Jr Work Phone: [facility] Start: 12-27-2024 ambulatory Maria Luisa [facility] Start: 12-27-2024 End: 12-27-2024 Encounter for other preprocedural examination Genoveva Parkinson Work Phone: [facility] [place] Start: 12-27-2024 End: 12-27-2024 Encounter for preprocedural cardiovascular examination Genoveva Parkinson Work Phone: [facility] [place] Start: 12-27-2024 End: 12-27-[address] [facility] minutes Genoveva Parkinson Work Phone: [facility] Start: 12-27-2024 ambulatory Maria Luisa [facility] Start: 12-27-2024 ambulatory Laith [facility] Start: 12-16-2024 ambulatory Maria Luisa [facility] Start: 11-25-2024 End: 11-25-[address] Jj Eason MD Work Phone: -Laboratory Start: 11-25-2024 End: 11-25-2024 Patient encounter procedure Thomas Demiter PA -Laboratory Work Phone: Start: 11-25-2024 End: 11-25-2024 ambulatory Jj Eason Facility:[facility] Start: 11-15-2024 ambulatory Maria Luisa [facility] Start: 11-10-2024 End: 11-10-[address] Jj Eason MD Work Phone: -[facility] Services Start: 11-10-2024 End: 11-10-2024 Patient encounter procedure Thomas Demiter PA -Cardiovascular Services Work Phone: Start: 11-10-2024 Non-patient / Non-visit Dr. Alla JULIAN -[facility] Start: 11-10-2024 End: 11-10-2024 ambulatory Thomas Demiter Facility:[facility] Start: 11-08-2024 End: 11-08-[address] Jj Eason MD Work Phone: -[facility] Start: 11-08-2024 End: 11-08-[address] Jean-Paul Estrada MD -[facility] Work Phone: Start: 11-08-2024 End: 11-08-2024 ambulatory Jean-Paul Estrada Facility:[facility] Start: 10-19-2024 Non-patient / Non-visit Dr. Jj ellison MD -[facility] Start: 10-19-2024 End: 10-19-[address] Jj Eason MD Work Phone: -Cardiovascular Services Start: 10-19-2024 End: 10-19-2024 Patient encounter procedure Thomas Buschdusty PA -Cardiovascular Services Work Phone: Start: 10-19-2024 End: 10-19-2024 ambulatory Thomas Sanchez Facility:[facility] Start: 10-17-2024 ambulatory Maria Luisa Silvana [facility] Start: 10-12-2024 End: 10-12-2024 Office outpatient new 60 minutes Maria Luisa Silvana Varma Jr Work Phone: [facility] Start: 10-12-2024 ambulatory Maria Luisa Silvana [facility] Start: 09-23-2024 End: 09-23-2024 Patient encounter procedure Thomas Buschdusty PA -[facility] Work Phone: Start: 09-23-2024 End: 09-23-[address] Jj Eason MD Work Phone: [facility] Work Phone: Start: 08-15-2024 End: 08-15-2024 Admission to same day surgery center Dr. Sin Murphy MD -[facility] Start: 08-15-2024 End: 08-15-[address] Jj Eason MD Work Phone: [facility] Work Phone: Start: 08-04-2024 End: 08-04-[address] Darwin Badillo MD -[facility] Work Phone: Start: 08-04-2024 End: 08-04-2024 [facility] Start: 08-01-2024 End: 08-01-[address] Jj Eason MD Work Phone: [facility] Work Phone: Start: 08-01-2024 End: 08-01-[address] Jj Eason MD -[facility] Start: 08-01-2024 End: 08-01-2024 ambulatory Jj Eason Facility:[facility] Start: 07-28-2024 End: 07-28-[address] Darwin Badillo MD -[facility] Work Phone: Start: 07-28-2024 End: 07-28-2024 ambulatory Darwin Justino Facility:[facility] Start: 07-19-2024 End: 07-19-[address] Darwin Badillo MD -[facility] Work Phone: Start: 07-19-2024 End: 07-19-2024 ambulatory Darwin Badillo Facility:[facility] Start: 07-06-2024 Non-patient / Non-visit Dr. Gladis man MD -[facility]- Start: 07-06-2024 End: 07-06-[address] Jj Eason MD Work Phone: [facility] Work Phone: Start: 07-06-2024 End: 07-06-[address] Jean-Paul Estrada MD -Pulmonary Services/Neurology Work Phone: Start: 07-06-2024 End: 07-06-2024 ambulatory Jean-Paul Estrada Facility:[facility] Start: 06-13-2024 End: 06-13-[address] Jean-Paul Estrada MD -[facility] Work Phone: Start: 06-13-2024 End: 06-13-2024 ambulatory Jj Eason Facility:[facility] Start: 06-02-2024 End: 06-02-[address] Darwin Badillo MD -[facility] Work Phone: Start: 06-02-2024 End: 06-02-2024 ambulatory Darwin Badillo Facility:[facility] Start: 05-02-2024 End: 05-02-2024 Admission to same day surgery center Dr. Sin Murphy MD -[facility] Start: 05-02-2024 End: 05-02-2024 ambulatory Jj Eason Facility:[facility] Start: 04-15-2024 ambulatory Jj Eason [facility] Start: 04-15-[address] Jj [facility] Start: 04-15-2024 End: 04-15-2024 ambulatory Jj Eason Facility:[facility] Start: 03-14-2024 End: 03-14-2024 ambulatory [facility] Jen[facility] Facility:[facility] Start: 12-29-2023 End: 12-29-2023 Subsequent hospital visit by physician Norberto X-Ray [facility] Comment on above: Left shoulder pain Start: 08-31-2023 End: 08-31-2023 Admission to same day surgery center Dr. Jj Eason Work Phone: [facility] Start: 08-31-2023 End: 08-31-[address] Jj Eason Work Phone: [facility] Work Phone: Start: 08-13-2023 End: 08-13-[address] Jj Eason Work Phone: [facility] Work Phone: Start: 08-13-2023 End: 08-13-[address] 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 Gentry Eason Work Phone: [facility] Work Phone: Start: 08-07-2023 Non-patient / Non-visit Dr. Gentry Eason [facility] Start: 08-07-2023 End: 08-07-[address] Jj Eason Work Phone: [facility] Work Phone: Start: 08-07-2023 End: 08-07-[address] [facility] Start: 07-21-2023 End: 07-21-[address] Jj Eason Work Phone: [facility] Work Phone: Start: 07-15-2023 End: 07-15-[address] Jj Eason Work Phone: [facility] Work Phone: Start: 07-15-2023 End: 07-15-[address] Jj Eason Work Phone: [facility] Work Phone: Start: 07-10-2023 End: 07-10-[address] Jj Eason Work Phone: [facility] Work Phone: Start: 07-07-2023 End: 07-07-[address] Jj Eason Work Phone: [facility] Work Phone: Start: 07-07-2023 End: 07-07-[address] Jj Eason Work Phone: [facility]-Cat Scan, [facility] Work Phone: Start: 07-06-2023 End: 07-06-[address] Jj Eason Work Phone: [facility] Work Phone: Start: 06-29-2023 End: 06-29-[address] Jj Eason Work Phone: [facility] Work Phone: Start: 06-18-2023 Chart abstracting Unk Pcp (Hist) Patricia rology Start: 06-18-2023 End: 06-18-[address] Jj Eason Work Phone: [facility] Work Phone: Start: 06-16-2023 End: 06-16-[address] Jj Eason Work Phone: [facility] Work Phone: Start: 06-11-2023 End: 06-11-[address] Jj Eason Work Phone: [facility] Work Phone: Start: 06-11-2023 End: 06-11-[address] Jj Eason Work Phone: [facility]-MRI - [facility] Work Phone: Start: 05-01-2023 End: 05-01-[address] Jj Eason Work Phone: [facility] Work Phone: Start: 03-12-2023 End: 03-12-[address] Jj Eason Work Phone: [facility] Work Phone: Start: 03-12-2023 End: 03-12-[address] Jj Eason Work Phone: [facility] Start: 03-09-2023 End: 03-10-2023 ambulatory JJ EASON [facility] Start: 03-07-2023 Non-patient / Non-visit Dr. Gentry Eason Work Phone: [facility] Work Phone: Start: 03-06-2023 Non-patient / Non-visit Dr. Gentry Eason Work Phone: [facility] Start: 03-06-2023 End: 03-07-2023 Evaluation and management of inpatient Dr. Jj Eason Work Phone: [facility]-Progressive Care Unit Work Phone: Start: 03-05-2023 End: 03-06-2023 Emergency department patient visit JJ EASON Facility:[facility] Start: 02-28-2023 Non-patient / Non-visit Dr. Gentry Eason Work Phone: [facility] Work Phone: Start: 02-27-2023 End: 02-27-2023 Non-patient / Non-visit Dr. Jj Eason Work Phone: [facility] Work Phone: Start: 02-26-2023 Non-patient / Non-visit Dr. Gentry Eason Work Phone: [facility] Work Phone: Start: 02-25-2023 Non-patient / Non-visit Dr. Gentry Eason Work Phone: [facility] Work Phone: Start: 02-25-2023 End: 02-28-2023 Evaluation and management of inpatient Dr. Jj Eason Work Phone: [facility]-Medical Surgical 3 Work Phone: Start: 01-21-2023 End: 01-30-2023 Evaluation and management of inpatient AAMIR GASCA Facility:[facility] Start: 01-21-2023 Non-patient / Non-visit Dr. Gentry Eason [facility] Work Phone: Start: 01-20-2023 Non-patient / Non-visit Dr. Gentry Eason Work Phone: [facility] Work Phone: Start: 01-19-2023 Non-patient / Non-visit Dr. Gentry Eason Work Phone: [facility] Work Phone: Start: 01-18-2023 Non-patient / Non-visit Dr. Gentry Easno Work Phone: [facility] Work Phone: Start: 01-17-2023 Non-patient / Non-visit Dr. Gentry Eason [facility] Work Phone: Start: 01-16-2023 Non-patient / Non-visit Dr. Gentry Eason [facility] Phone[facility] Work Phone: Start: 01-15-2023 Non-patient / Non-visit Dr. Gentry Eason Work Phone[facility] Work Phone: Start: 01-14-2023 Non-patient / Non-visit Dr. Gentry Eason Work Phone: [facility] Work Phone: Start: 01-13-2023 Non-patient / Non-visit Dr. Gentry Eason Work Phone: [facility] Work Phone: Start: 01-12-2023 End: 01-21-2023 Evaluation and management of inpatient Dr. Jj Eason Work Phone: [facility]-Progressive Care Unit Work Phone: Start: 01-12-2023 Non-patient / Non-visit Dr. Gentry Eason Work Phone: [facility] Work Phone: Start: 11-14-2022 End: 11-14-[address] Jj Eason Work Phone: [facility] Work Phone: Start: 10-08-2022 End: 10-08-[address] Jj Eason Work Phone: [facility] Work Phone: Start: 10-08-2022 End: 10-08-[address] Jj Eason Work Phone: [facility]-Laboratory Start: 09-29-2022 End: 09-29-2022 Admission to same day surgery center Dr. jJ Eason Work Phone: [facility] Day [facility] Start: 09-29-2022 End: 09-29-[address] Jj Eason Work Phone: [facility] Work Phone: Start: 06-16-2022 End: 06-16-[address] Jj Eason Work Phone: [facility] Work Phone: Start: 06-16-2022 End: 06-16-[address] Jj Eason Work Phone: [facility] Start: 05-27-[address] Feng Eason Work Phone: [facility] Comment on above: Shoulder surgery 06/04 Start: 05-27-2022 End: 05-27-2022 Admission to same day surgery center Dr. Jj Eason Work Phone: [facility] Start: 05-27-2022 End: 05-27-[address] Jj Eason Work Phone: [facility] Work Phone: Start: 05-27-2022 End: 05-27-[address] Jj Eason Work Phone: [facility] Start: 05-20-2022 End: 05-20-[address] Jj Eason Work Phone: [facility] Work Phone: Start: 05-20-2022 End: 05-20-[address] Jj Eason Work Phone: [facility] Start: 04-14-2022 End: 04-14-[address] Jj Eason Work Phone: [facility] Start: 03-17-2022 End: 03-17-2022 Admission to same day surgery center Dr. Jj Eason Work Phone: [facility]-S[facility] Day [facility] Start: 03-17-2022 End: 03-17-[address] Jj Eason Work Phone: [facility] Work Phone: Start: 03-15-2022 End: 03-15-[address] Jj Eason Work Phone: [facility] Work Phone: Start: 03-15-2022 End: 03-15-[address] Jj Eason Work Phone: [facility] Start: 02-25-2022 End: 02-25-2022 Patient encounter procedure Lenin Bueno DO Work Phone: Ophthalmology Comment on above: Functional visual fi eld loss (Primary Dx) Start: 02-11-2022 End: 02-11-[address] Jj Eason Work Phone: [facility] Start: 02-05-2022 End: 02-05-[address] Jj Eason Work Phone: [facility] Start: 12-03-2021 End: 12-03-[address] Jj Eason Work Phone: [facility] Start: 11-19-2021 Patient encounter procedure Jj Eason Work Phone: [facility] Work Phone: Start: 10-11-2021 Patient encounter procedure Jj Eason Work Phone: [facility] Work Phone: Start: 10-11-2021 PENG, Provider : Melvi Zamora, Status: Pen, Time: 10:15 AM Jj Eason Work Phone: [facility] Work Phone: Start: 10-11-2021 [place] [id number], Provider : Seda Mercado, Status: Pen, Time: 9:15 AM Jj Eason Work Phone: [facility] Work Phone: Start: 10-10-2021 Patient encounter procedure Jj Eason Work Phone: [facility] Work Phone: Start: 09-20-2021 Patient encounter procedure Jj Eason Work Phone: [facility] Work Phone: Start: 09-10-2021 Patient encounter procedure Jj Eason Work Phone: [facility] Work Phone: Start: 08-27-2021 Patient encounter procedure Jj Eason Work Phone: [facility] Work Phone: Start: 09-27-2020 [id number], Provider : Verónica Sanderson, Status: Pen, Time: 12:15 PM Jj Eason Work Phone: [facility] Work Phone: Start: 09-27-2020 Patient encounter procedure Jj Eason Work Phone: [facility] Work Phone: Start: 09-25-2020 Patient encounter procedure Jj Eason Work Phone: [facility] Work Phone: Start: 08-20-2020 Patient encounter procedure Jj Eason Work Phone: [facility] Work Phone: Start: 08-15-2020 End: 08-19-2020 ambulatory PHYSICIAN NO [facility] Start: 08-15-2020 End: 08-15-2020 Office outpatient visit 10 minutes Austin Natarajan MD Work Phone: [facility] Comment on above: Closed fracture of r ight ankle with routine healing, subsequent encounter (Primary Dx) Start: 07-04-2020 End: 07-04-2020 Orders Only Maryjane Romo Work Phone: [facility] Start: 06-20-2020 End: 06-24-2020 ambulatory AUSTIN NATARAJAN [facility] Start: 05-23-2020 End: 05-27-2020 ambulatory AUSTIN NATARAJAN [facility] Start: 05-23-2020 End: 05-23-2020 Postop follow up visit related to original px Austin Natarajan Work Phone: [facility] Comment on above: Closed fracture of r ight ankle with routine healing, subsequent encounter (Primary Dx) Start: 04-24-2020 End: 04-28-2020 ambulatory PHYSICIAN NO [facility] Start: 04-24-2020 End: 04-24-2020 Follow-up encounter Austin Natarajan Work Phone: [facility] Comment on above: Closed fracture of r ight ankle with routine healing, subsequent encounter (Primary Dx) Start: 04-12-2020 End: 04-12-2020 Patient encounter procedure PHYSICIAN NO [facility] Start: 04-11-2020 End: 04-11-2020 Patient encounter procedure [facility] Start: 04-11-2020 End: 04-11-2020 [facility] Start: 09-17-2018 End: 09-17-2018 ambulatory UNKNOWN PROVIDER Facility:[facility] Start: 10-19-2017 End: 10-20-2017 Evaluation and management of inpatient Rupinder [facility] Facility:[facility] Start: 10-18-2017 End: 10-19-2017 Emergency department patient visit Stone Mc Cayden Facility:[facility] Start: 10-18-2017 Patient encounter Facil [id number] Encounter for other preprocedural examination Maria Luisa Varma Jr, MD [facility] [place] Encounter for preprocedural cardiovascular examination Maria Luisa Varma Jr, MD [facility] Procedures Date Procedure Procedure Detail Performing Clinician Start: 01-19-2025 Sars-cov-2 detection by dna/rna Chapo Rodriguez DO Work Phone: Start: 01-18-2025 PULSE OXIMETRY, CONTINUOUS Bubba He DO Work Phone: Start: 01-17-2025 PULSE OXIMETRY, CONTINUOUS Bubba He DO Work Phone: Start: 01-17-2025 PULSE OXIMETRY, CONTINUOUS Bubba He DO Work Phone: Start: 01-16-2025 PULSE OXIMETRY, CONTINUOUS Bubba He DO Work Phone: Start: 01-16-2025 Radiologic examination pelvis 1/2 views Vladimir Disla MD Work Phone: Start: 01-16-2025 End: 01-16-2025 PA Total Hip Arthoplasty & Prosthesis Maria Luisa Varma Jr, MD Start: 01-16-2025 PA Total Hip Arthoplasty \T\ Prosthesis Maria Luisa Varma Jr Start: 01-16-2025 End: 01-16-2025 Arthrp acetblr/prox fem prostc agrft/algrft Maria Luisa Varma MD Work Phone: Start: 01-16-2025 POCT GLUCOSE BLOOD Maria Luisa Varma MD Work Phone: Start: 01-16-2025 RAD ONC ARIA SESSION SUMMARY Physician Radiation Oncology Work Phone: Start: 01-02-[address] Jj Eason MD Work Phone: Start: 01-02-[address] Jj Eason MD Work Phone: Comment on above: Performed at: [facility] [id number] Director: Gerson Day MD, Phone: [phone] at: [facility] [employer] [facility] ([facility] [address] [id number] Director: Leonard Oliver PhD, Phone: [phone] Start: 01-02-2025 Antibody to centromere measurement Dr. Feng Eason MD Work Phone: Comment on above: Test not performed Start: 01-02-2025 Antibody to extractable nuclear antigen measurement Dr. Jj Eason MD Work Phone: Comment on above: Test not performed Start: 01-02-2025 Antibody to SAMMY-[address] Jj levin MD Work Phone: Comment on above: Test not performed Start: 01-02-2025 Antibody to lupus La protein measurement Dr. Jj Eason MD Work Phone: Comment on above: Test not performed Start: 01-02-2025 Antibody to SS-A measurement Dr. Jj levin MD Work Phone: Comment on above: Test not performed Start: 01-02-[address] Jj Eason MD Work Phone: Comment on above: Test not performed Start: 01-02-2025 C>3< complement assay Dr. Jj Eason MD Work Phone: Start: 01-02-[address]25 [address] Leiden genotype Dr. Jj Eason MD Work Phone: Comment on above: Result: [id number] ([id number]) - Not De tectedThis result is not associated with an increased risk for venousthromboembolism. See Additional Clinical Information andComments.Additional Clinical Information: Venous thromboembolism is a multifactorial diseaseinfluenced by genetic, environmental, and circumstantialrisk factors. The c.1601G>A (p. [id number]) variant in theF5 gene, commonly referred to as Factor V Leiden, is agenetic risk factor for venous thromboembolism.Heterozygous carriers of this variant have a 6- to 8-foldincreased risk for venous thromboembolism. Individualshomozygous for this variant (ie, with a copy of the varianton each chromosome) have an approximately 80-fold increasedrisk for venous thromboembolism. Individuals who carry sukhi c.*97G>A variant in the F2 gene and Factor V Leiden havean approximately 20-fold increased risk for venousthromboembolism. Risks are likely to be even higher in morecomplex genotype combinations involving the F2 c.*97G>Avariant and Factor V Leiden (PMID: 70510309). Additionalrisk factors include but are not limited to: deficiency ofprotein C, protein S, or antithrombin III, age, male sex,personal or family history of deep vein thromboembolism,smoking, surgery, prolonged immobilization, malignantneoplasm, tamoxifen treatment, raloxifene treatment, oralcontraceptive use, hormone replacement therapy, andpregnancy. Management of thrombotic risk and thromboticevents should follow established guidelines and fit theclinical circumstance. This result cannot predict theoccurrence or recurrence of a thrombotic event.Comment: Genetic counseling is recommended to discuss thepotential clinical implications of positive results, aswell as recommendations for testing family members. Genetic Coordinators are available for health careproviders to discuss results at [phone] ([phone]).Test Details: Variant Analyzed: c.1601G>A (p. [id number]), referredto as Factor V LeidenMethods/Limitations: DNA analysis of the F5 gene (NM_000130.5) wasperformed by PCR amplification followed by electrophoresis.The diagnostic sensitivity is >99%. Results must becombined with clinical information for the most accurateinterpretation. Molecular-based testing is highly accurate,but as in any laboratory test, diagnostic errors may occur.False positive or false negative results may occur forreasons that include genetic variants, blood transfusions,bone marrow transplantation, somatic or tissue-specificmosaicism, mislabeled samples, or erroneous representationof family relationships. This test was developed and its performancecharacteristics determined by [employer]. It has not beencleared or approved by the Food and Drug Administration.References: Anish Russell, Amy GE, Adam R, Tiera WW, Nick JH;[employer] Professional Practice and Guidelines Committee.Addendum: [employer] [place] [employer] consensusstatement on factor V Leiden mutation testing. Jailyn Med.2020Jun 29. doi: 10.1038/y01475-840-33449-n. PMID:76326498. Luis CAMERON. Factor V Leiden Thrombophilia. 1998September 07(Updated 2017Apr 30). In: Sj MP, Karina HH, Mary RA,et al., editors. Adolph(R) (Internet). [place] ([place]):[facility]; 5205-5211. Availablefrom: https://www.ncbi.nlm.nih.gov/books/MOJ0351/ Bobo Russell, Amy GE, Chase X, Reid B, Radha EB, Diana P,Disha CS; A[facility]G Laboratory Scale Shooter Committee.Venous thromboembolism laboratory testing (factor V Leidenand factor II c. *97G>A), 2018 update: a technical standardof the [place] [employer] and [employer]omics([employer]). Jailyn Med. 2017;20(12): 4085-6572. doi:10.1038/b16633-634-3728-p. Epub 2017Jan 29. PMID: 68062864. Start: 01-02-2025 Folic acid measurement, RBC Dr. Jj irwin MD Work Phone: Start: 01-02-2025 Hemolytic complement CH50 level Dr. Jj Eason MD Work Phone: Comment on above: Age Male Female 1 - 30 days Not Estab. N ot Estab. 31 days - 6 months >32 >20 7 months - 17 years >39 >39 >17 years >41 >41 NOTE: The adult (>17 years) reference interval range is used to flag abnormals on this report. If the patient is 17 years old or younger, use the table above to determine out of range values. Start: 01-02-2025 Human leukocyte antigen B27 antigen phenotyping Dr[address] Jj Eason MD Work Phone: Comment on above: HLA-B*27 DxamizuuP04 allele interpretati on for all loci based on IMGT/HLAdatabase version 3.58This test was developed and its performance characteristicsdetermined by [employer]. It has not been cleared or approvedby the Food and Drug Administration.The FDA has determined that such clearance or approval isnot necessary.[facility] CLIA ID Number [id number] SECTION DIRECTOR: Jj Peres, PhD,F([facility])This test was performed using Polymerase Chain Reaction(PCR) and Sequence Specific Oligonucleotide Probes (SSOP)technique. Sequence Based Typing (SBT) may be used as asupplemental method when necessary.If you have questions, please call [facility] serviceat or email at [email or web address]. Start: 01-02-[address] Jj Eason MD Work Phone: Comment on above: No lupus anticoagulant was detected. Start: 01-02-2025 Lupus anticoagulant assay, platelet neutralization method Dr. Jj Eason MD Work Phone: Start: 01-02-2025 Lupus antico[address] screening test Dr. Feng Eason MD Work Phone: Start: 01-02-[address] Jj Eason MD Work Phone: Start: 01-02-[address] Jj Eason MD Work Phone: Comment on above: Test Ordered: [id number] Calcitonin, SerumCa lcitonin, Serum 4.2 pg/mL Reference Range: 0.0-8.4Siemens Immulite 2000 Immunochemiluminometric assay (ICMA)Values obtained with different assay methods or kits cannotbe used interchangeably. Results cannot be interpreted asabsolute evidence of the presence or absence of malignantdisease.Performed at: - [facility] [id number] Director: Gerson Day MD, Phone: [phone] at: - [facility] [address] [id number] Director: Leonard Oliver PhD, Phone: [phone] Start: 01-02-[address] Jj Eason MD Work Phone: Start: 01-02-[address] Jj Eason MD Work Phone: Comment on above: Test not performed Start: 01-02-2025 Serum IgM anticardiolipin measurement Dr. Jj Eason MD Work Phone: Comment on above: Negative: <13 Indeterminate: 13 - 20 Low -Med Positive: >20 - 80 High Positive: >80 Start: 01-02-2025 Serum inorganic phosphate measurement Dr. Jj Eason MD Work Phone: Start: 01-02-[address] Jj Eason MD Work Phone: Comment on above: Deficiency: <3.4 Marginal: 3.4 - 5.1 Maude quate: >5.1 Start: 12-27-2024 End: 12-27-2024 Ecg routine ecg w/least 12 lds w/i&r Maria Luisa Varma Jr, MD Start: 12-27-2024 End: 12-27-2024 No Charge Maria Luisa Varma Jr, MD Start: 12-27-2024 End: 12-27-2024 Physical therapy evaluation high complex 45 mins Maria Luisa Varma Jr, MD Start: 12-27-2024 End: 12-27-2024 Therapeut actvity direct pt contact each 15 min Maria Luisa Varma Jr, MD Start: 11-08-2024 MRI of brain with contrast Dr. Jj busch MD Work Phone: Start: 10-12-2024 End: 10-12-2024 Radiologic exam knee complete 4/more views Maria Luisa Varma Jr, MD Start: 08-15-[address] Jj Eason MD Work Phone: Start: 08-15-[address] Jj Eason MD Work Phone: Start: 08-01-2024 Prostate specific antigen measurement Dr. Jj Eason MD Work Phone: Comment on above: This test was performed using the [employer] tPSA method. Measured values of a patient sample can vary depending on the testing procedure used. PSA values determined on patient samples by different testing procedures cannot be used interchangeably. If there is a change in PSA assays while monitoring therapy, sequential testing should be performed to confirm baseline values. Start: 08-01-2024 Vitamin D, 25-hydroxy measurement Dr. Gentry Eason MD Work Phone: Comment on above: Vitamin D StatusDeficiency: <20 ng/mL (5 0nmol/L)Insufficiency: 20-30 ng/mL (50-75 nmol/L)Sufficiency: 30-100 ng/mL (75-250 nmol/L)Toxicity: >100 ng/mL (>250 nmol/L) Start: 05-02-[address] Jj Eason MD Work Phone: Start: 08-31-[address] Jj Eason Work Phone: Start: 07-07-2023 CT cervical spine without contrast Dr. Feng Eason Work Phone: Start: 07-07-2023 CT of upper limb without contrast Dr. Gentry Eason Work Phone: Start: 07-07-2023 MRI of joint of lower extremity Dr. Jj Eason Work Phone: Start: 06-11-2023 MRI of cervical spine Dr. Jj Eason Work Phone: Start: 05-01-2023 X-ray of cervical spine Dr. Jj Eason Work Phone: Start: 03-09-2023 RENAL FUNCTION PANEL JJ EASON Start: 03-06-2023 CT of abdomen and pelvis without contrast Dr. Jj Eason Work Phone: Start: 02-25-2023 Plain chest X-ray Dr. Jj Eason Work Phone: Start: 02-25-2023 CT of head without contrast Dr. Jj Almazan th Work Phone: Start: 01-16-2023 MRI of brain with contrast Dr. Jj Zavaleta h Work Phone: Start: 01-15-2023 Plain X-ray of shoulder Dr. Jj Eason Work Phone: Start: 01-13-[address] Jj Eason Work Phone: Start: 01-12-2023 Plain chest X-ray Dr. Jj Eason Work Phone: Start: 01-12-2023 CT of head without contrast Dr. Jj irwin Work Phone: Start: 09-29-[address] Jj Eason Work Phone: Start: 09-29-2022 End: 09-29-[address] Jj Eason Work Phone: Start: 03-17-[address] Jj Eason Work Phone: Start: 03-17-[address] Jj Eason Work Phone: Start: 03-15-2022 CT of upper limb without contrast Dr. Gentry Eason Work Phone: Start: 03-15-2022 MRI of joint of lower extremity Dr. Jj Eason Work Phone: Start: 02-25-2022 End: 02-25-2022 Visual field xm uni/bi w/interp extended exam Lenin Bueno DO Work Phone: Start: 02-05-2022 End: 02-05-2022 Plain X-ray of shoulder Dr. Jj Eason Work Phone: Start: 12-05-2021 Lipid 1996 panel - Serum or Plasma Unk ( Hist) Decompression of median nerve DR KIRAN NICHOLS MD Comment on above: RIGHT Nasal Screen MRSA/MSSA Dr. Feng Eason Work Phone: Open reduction of fr acture with internal fixation DR KIRAN NICHOLS MD Comment on above: RIGHT ANKLE Total replacement of hip DR KIRAN NICHOLS MD Comment on above: CAESAR Plan of Treatment Date Care Activity Detail Author Start: 2040 RSV Immunization Adult Patients (1 - 1-dose 75+ series) RSV Immunization Adult Patients (1 - 1-dose 75+ series) [facility] Start: 12-05-2026 Lipid panel [facility] Start: 03-05-2026 Diabetes Screening Diabetes Screening [facility] Start: 01-17-2026 Social Influencers of Health Screening Social Influencers of Health Screening [facility] Start: 12-27-2025 Hypertension/CHF/CAD Annual BMP Blood Test Hypertension/CHF/CAD Annual BMP Blood Test [facility] Start: 03-10-2025 Meliza Eastman [facility] Work Phone: Start: 02-28-2025 Meliza Eastman [facility] Work Phone: Start: 12-27-2024 Patient referral Please arrange referral to patient's current clinical quality assurance associate for preoperative cardiac risk stratification and advice regarding perioperative cardiac optimization and management of current cardiac medications.The patient follows with [facility] (related to Preop cardiovascular exam) [facility] Start: 12-27-2024 Multiple Labs On Order ([id number]), Ordered on: [facility] Start: 12-26-2024 COVID-19 Vaccine () COVID-19 Vaccine () [facility] Start: 12-26-2024 Influenza vaccination Influenza Vaccine (#1) [facility] Start: 10-19-2024 Hepatitis C screening Hepatitis C Screening [facility] Start: 10-19-2024 HIV screening HIV Screening [facility] Start: 10-19-2024 Medicare Annual Wellness Visit Medicare Annual Wellness Visit [facility] Start: 10-19-2024 Screening for malignant neoplasm of colon Colorectal Cancer Screening: Colonoscopy [facility] Start: 10-19-2024 Social Influencers of Health Screening Social Influencers of Health Screening [facility] Start: 08-15-2024 Anes dx/ther nerve block/injection prone pos ANESTH N BLOCK/INJ PRONE [facility] Start: 08-15-2024 Fluoroscopic guidance [facility] Start: 08-15-2024 Patient discharge [facility] Start: 07-31-2024 Diabetes mellitus screening Diabetes Screening [facility] Start: 05-02-2024 Anes closed humrl h/n strnclav joint& nayeli joint ANESTH SHOULDER PROCEDURE [facility] Start: 05-02-2024 Arthrocentesis aspir&/inj major jt/bursa w/o us DRAIN/INJ JOINT/BURSA W/O US [facility] Start: 05-02-2024 Patient discharge [facility] Start: 12-27-2023 COVID-19 Vaccine ( season) COVID-19 Vaccine ( season) [facility] Start: 12-27-2023 Influenza vaccination [facility] Start: 08-31-2023 Fluoroscopic guidance [facility] Start: 08-31-2023 Patient discharge [facility] Start: 07-21-2023 Patient referral [facility] Work Phone: Start: 04-27-2023 Behavioral Health Screening Behavioral Health Screening [facility] Start: 04-27-2023 Depression Assessment Depression Assessment [facility] Start: 03-13-2023 Blood chemistry [facility] Start: 03-12-2023 Blood chemistry [facility] Start: 03-11-2023 Blood chemistry [facility] Start: 03-10-2023 Blood chemistry [facility] Start: 03-09-2023 Blood chemistry [facility] Start: 03-08-2023 Blood chemistry [facility] Start: 03-07-2023 Following clinical pathway protocol [facility] Start: 03-07-2023 Patient discharge [facility] Start: 03-06-2023 Referral to occupational therapist [facility] Start: 03-06-2023 Referral to service [facility] Start: 03-06-2023 End: 03-06-2023 [facility] Start: 03-06-2023 Oxygen therapy [facility] Start: 03-06-2023 Provision of activity privileges [facility] Start: 03-06-2023 Admission procedure [facility] Start: 03-06-2023 Assessment of risk of venous thromboembolism [facility] Start: 03-06-2023 Insertion of catheter into peripheral vein [facility] Start: 03-06-2023 Providing care according to standard [facility] Start: 03-06-2023 Measuring intake and output [facility] Start: 03-06-2023 Following clinical pathway protocol [facility] Start: 03-02-2023 Blood chemistry [facility] Start: 03-01-2023 Blood chemistry [facility] Start: 02-28-2023 Patient discharge [facility] Start: 02-27-2023 Measuring intake and output [facility] Start: 02-27-2023 Consultation [facility] Start: 02-26-2023 Referral to occupational therapist [facility] Start: 02-26-2023 Referral to service [facility] Start: 02-26-2023 Referral to production specialist [facility] Start: 02-25-2023 Following clinical pathway protocol [facility] Start: 02-25-2023 Assessment of risk of venous thromboembolism [facility] Start: 02-25-2023 Insertion of catheter into peripheral vein [facility] Start: 02-25-2023 Providing care according to standard [facility] Start: 02-25-2023 [facility] Start: 02-25-2023 Verification routine [facility] Start: 02-25-2023 Admission procedure [facility] Start: 02-25-2023 Hospital admission, emergency, from emergency room, medical nature [facility] Start: 02-25-2023 End: 02-26-2023 [facility] Start: 01-21-2023 Patient discharge [facility] Start: 01-20-2023 [facility] Start: 01-15-2023 Speech therapy assessment [facility] Start: 01-13-2023 Referral to occupational therapist [facility] Start: 01-13-2023 Referral to service [facility] Start: 01-13-2023 Following clinical pathway protocol [facility] Start: 01-12-2023 Ambulation without limitation [facility] Start: 01-12-2023 Assessment of risk of venous thromboembolism [facility] Start: 01-12-2023 Insertion of catheter into peripheral vein [facility] Start: 01-12-2023 Measuring intake and output [facility] Start: 01-12-2023 Neurovascular assessment [facility] Start: 01-12-2023 Providing care according to standard [facility] Start: 01-12-2023 Referral to service [facility] Start: 01-12-2023 [facility] Start: 01-12-2023 Verification routine [facility] Start: 01-12-2023 Admission procedure [facility] Start: 01-12-2023 [facility] Start: 01-12-2023 Patient referral to dietitian [facility] Start: 12-26-2022 Covid-19 Vaccine ( season) Covid-19 Vaccine () [facility] Start: 12-26-2022 Influenza vaccination Influenza Vaccine (#1) [facility] Start: 09-29-2022 Anes dx/ther nrv blk/njx oth/thn prone pos ANESTH NERVE BLOCK/INJ [facility] Start: 09-29-2022 Arthrocentesis aspir&/inj major jt/bursa w/o us DRAIN/INJ JOINT/BURSA W/O US [facility] Start: 09-29-2022 Fluoroscopic guidance [facility] Start: 09-29-2022 Patient discharge [facility] Start: 07-09-2022 Prosthetic total arthroplasty of left shoulder Total Shoulder Replacement (Left) [facility] Start: 03-17-2022 Anesthesia on bony pelvis ANESTH PELVIS SURGERY [facility] Start: 03-17-2022 Arthrocentesis aspir&/inj major jt/bursa w/o us DRAIN/INJ JOINT/BURSA W/O US [facility] Start: 03-17-2022 Fluoroscopic guidance Fluoro Guided Needle Placement [facility] Work Phone: Start: 03-17-2022 RF Guidance for placement of needle in Unspecified body region [facility] Work Phone: Start: 03-17-2022 Patient discharge [facility] Start: 03-15-2022 CT of upper limb without contrast Extremity Upper without Contra [facility] Work Phone: Start: 03-15-2022 CT Upper extremity WO contrast [facility] Work Phone: Start: 12-26-2021 Influenza vaccination INFLUENZA (#1) [facility] Start: 10-11-2021 PTRECHADHELGA, Provider: Melvi Zamora, Status: Pen, Time: 10:15 AM PTRECHADHELGA, Provider: Melvi Zamora, Status: Pen, Time: 10:15 AM [facility] Work Phone: Start: 10-11-2021 [id number], Provider: Seda Mercado, Status: Pen, Time: 9:15 AM [email or web address], Provider: Seda Mercado, Status: Pen, Time: 9:15 AM [facility] Work Phone: Start: 10-04-2021 [email or web address], Provider: Eloina Ashton, Status: Pen, Time: 2:00 PM [email or web address], Provider: Eloina Ashton, Status: Pen, Time: 2:00 PM [facility] Work Phone: Start: 09-27-2021 [email or web address], Provider: Seda Mercado, Status: Pen, Time: 10:00 AM [email or web address], Provider: Seda Mercado, Status: Pen, Time: 10:00 AM [facility] Work Phone: Start: 09-10-2021 [id number], Provider: Melvi Zamora, Status: Pen, Time: 3:45 PM [id number], Provider: Melvi Zamora, Status: Rafy, Time: 3:45 PM [facility] Work Phone: Start: 07-23-2021 COVID-19 VACCINE (4 - Booster for Pfizer series) COVID-19 VACCINE (4 - Booster for Pfizer series) [facility] Start: 04-27-2021 DEPRESSION ASSESSMENT DEPRESSION ASSESSMENT [facility] Start: 10-11-2020 HbA1c (Bld) [Mass fraction] A1C [facility] Start: 10-11-2020 Hemoglobin A1c measurement A1C [facility] Start: 08-15-2020 End: 08-15-2020 Office Visit 08/15/2020 Office Visit Sports Medicine Austin Natarajan MD [address] [place] [address] [phone] [facility] Start: 06-20-2020 End: 06-20-2020 Follow-Up 06/20/2020 Follow-Up Sports Medicine Austin Natarajan MD [address] [place] [address] [phone] [facility] Start: 2020 PROSTATE CANCER SCREENING DISCUSSION PROSTATE CANCER SCREENING DISCUSSION [facility] Start: 2020 Prostate specific antigen measurement Prostate Cancer Screening Discussion [facility] Start: 05-23-2020 End: 05-23-2020 Follow-Up [facility] Start: 12-27-2019 Influenza vaccination Sequential Influenza Vaccine (#1) [facility] Start: 12-27-2019 Influenza vaccination given Sequential Influenza Vaccine (#1) [facility] Start: 10-20-2018 Pneumococcal Vaccine: 50+ Years (2 of 2 - PCV) Pneumococcal Vaccine: 50+ Years (2 of 2 - PCV) [facility] Start: 2015 Administration of herpes zoster vaccine Zoster Vaccines (1 of 2) [facility] Start: 2015 Screening for malignant neoplasm of colon [facility] Start: 2015 SHINGRIX VACCINE (1 of 2) SHINGRIX VACCINE (1 of 2) [facility] Start: 2015 Zoster Vaccines (1 of 2) Zoster Vaccines (1 of 2) [facility] Start: 2010 COLOGUARD (FIT-DNA) COLOGUARD (FIT-DNA) [facility] Start: 2010 Colonoscopy COLONOSCOPY [facility] Start: 2010 COLORECTAL CANCER SCREENING COLORECTAL CANCER SCREENING [facility] Start: [address] COLONOGRAPHY [facility] Start: 2010 DIABETES SCREEN DIABETES SCREEN [facility] Start: 2010 FECAL OCCULT BLOOD FECAL OCCULT BLOOD [facility] Start: 2010 Screening for malignant neoplasm of colon [facility] Start: 2010 SIGMOIDOSCOPY SIGMOIDOSCOPY [facility] Start: 2000 LIPID SCREEN LIPID SCREEN [facility] Start: 1987 DTaP/Tdap/Td Vaccines (1 - Tdap) DTaP/Tdap/Td Vaccines (1 - Tdap) [facility] Start: 1984 DTaP,Tdap,and Td Vaccines (1 - Tdap) DTaP,Tdap,and Td Vaccines (1 - Tdap) [facility] Start: 1984 Hepatitis B Vaccine (1 of 3 - 19+ 3-dose series) Hepatitis B Vaccine (1 of 3 - 19+ 3-dose series) [facility] Start: 1984 Hepatitis B Vaccines (1 of 3 - 19+ 3-dose series) Hepatitis B Vaccines (1 of 3 - 19+ 3-dose series) [facility] Start: 1984 Urine microalbumin profile [facility] Start: 1984 Zoster Vaccines (1 of 2) Zoster Vaccines (1 of 2) [facility] Start: 1983 ANNUAL PCP TEAM CHRONIC DISEASE VISIT ANNUAL PCP TEAM CHRONIC DISEASE VISIT [facility] Start: 1983 BP CONTROLLED (<130/80) BP CONTROLLED (<130/80) [facility] Start: 1983 Hepatitis C antibody, confirmatory test Hepatitis C Screening [facility] Start: 1983 Hepatitis C screening Hepatitis C Screening [facility] Start: 1983 HEPATITIS C SCREENING HEPATITIS C SCREENING [facility] Start: 1983 HIV SCREENING HIV SCREENING [facility] Start: 1983 HIV screening HIV Screening [facility] Start: 1981 COVID-19 Vaccine (1 of 2) COVID-19 Vaccine (1 of 2) [facility] Start: 1981 COVID-19 Vaccine (1) COVID-19 Vaccine (1) [facility] Start: 1980 HIV screening HIV Screening [facility] Start: 1977 Adolescent depression screening assessment Depression Screening (PHQ9) [facility] Start: 1977 Depression screening using PHQ-9 (Patient Health Questionnaire 9) score Depression Screening (PHQ9) [facility] Start: 1975 Albumin DL <= 20 mg/L (U) [Mass/Vol] Urine Microalbumin [facility] Start: 1975 Diabetic foot examination Foot Exam [facility] Start: 1975 Microalbumin measurement, urine, quantitative Urine Microalbumin [facility] Start: 1975 Ophthalmic examination and evaluation Ophthalmology Exam [facility] Start: 1968 History and physical examination, annual for health maintenance Wellness Visit [facility] Start: 1966 MMR Vaccines (1 of 1 - Standard series) MMR Vaccines (1 of 1 - Standard series) [facility] Start: 1965 HEPATITIS B (1 of 3 - 3-dose series) HEPATITIS B (1 of 3 - 3-dose series) [facility] Start: 1965 Hepatitis B Vaccine (1 of 3 - 3-dose series) Hepatitis B Vaccine (1 of 3 - 3-dose series) [facility] Start: 1965 HIV screening HIV Screening [facility] Start: 1965 Medicare Annual Wellness Visit Medicare Annual Wellness Visit (AWV) [facility] Start: 1965 Prostate specific antigen measurement PSA Level [facility] Start: 1965 Screening for malignant neoplasm of colon [facility] Start: 1965 Tetanus vaccination Tetanus: Every 10yrs [facility] Amphetamine [Mass/volume] in Urine [facility] Amphetamine [Mass/volume] in Urine [facility] Anion gap measurement [facility] Benzodiazepine measurement, urine [facility] Benzodiazepine measurement, urine [facility] Bilirubin measuremen t, urine [facility] BUN/Creatinine ratio [facility] Calcium [Mass/volume ] in Serum or Plasma [facility] Carbon dioxide, tota l [Moles/volume] in Serum or Plasma [facility] Chloride [Moles/volu me] in Serum or Plasma [facility] Cocaine measurement, urine [facility] Cocaine measurement, urine [facility] Complete blood count [facility] 1999 panel - Serum or Plasma [facility] 1999 panel - Serum or Plasma [facility] Creatinine [Moles/volume] in Serum or Plasma [facility] Folic acid measurement [facility] Glucose [Mass/volume ] in Serum or Plasma [facility] Heavy metals measurement [facility] Hematocrit [Volume Fraction] of Blood [facility] Hematocrit [Volume Fraction] of Blood [facility] Hemoglobin [Mass/vol ume] in Blood [facility] Hemoglobin [Mass/vol ume] in Blood [facility] Hemoglobin [Presence ] in Urine [facility] Leukocytes [#/volume ] in Blood [facility] Leukocytes [#/volume ] in Blood [facility] Lipid 1995 panel - S vinicius or Plasma [facility] Work Phone: Lipid 1995 panel - S vinicius or Plasma [facility] Magnesium measurement [facility] Mean corpuscular hemoglobin concentration determination [facility] Mean corpuscular hemoglobin concentration determination [facility] Mean corpuscular hemoglobin determination [facility] Mean corpuscular hemoglobin determination [facility] Measurement of 3,4-methylenedioxymetham phetamine in urine [facility] Measurement of 3,4-methylenedioxymetham phetamine in urine [facility] Measurement of keton es in urine using dipstick [facility] Measurement of renal function [facility] Methadone measuremen t, urine [facility] Methadone measuremen t, urine [facility] Microscopic urinalysis [facility] MR Brain WO and W contrast IV [facility] Neutrophil count [facility] Neutrophil count [facility] Neutrophil percent differential count [facility] Neutrophil percent differential count [facility] Parathyroid hormone measurement [facility] Patient Education Acute Kidney Failure Dc [facility] Work Phone: Patient referral [facility] Work Phone: pH of Urine [facility] pH of Urine [facility] Phencyclidine [Prese nce] in Urine [facility] Phencyclidine [Prese nce] in Urine [facility] Platelets [#/volume] in Blood [facility] Platelets [#/volume] in Blood [facility] Potassium [Moles/vol ume] in Serum or Plasma [facility] Procedure [facility] Red blood cell count [facility] Red blood cell count [facility] Red cell distributio n width determination [facility] Red cell distributio n width determination [facility] Serum inorganic phosphate measurement [facility] Serum testosterone measurement [facility] Sodium [Moles/volume ] in Serum or Plasma [facility] Specific gravity of Urine [facility] Testosterone Free [Mass/volume] in Serum or Plasma [facility] Testosterone measurement [facility] Thiamine measurement [facility] Thyroid stimulating hormone measurement [facility] Urea nitrogen [Mass/volume] in Serum or Plasma [facility] Urinalysis, blood, qualitative [facility] Urine barbiturate measurement [facility] Urine barbiturate measurement [facility] Urine cannabinoid measurement [facility] Urine cannabinoid measurement [facility] Urine dipstick for glucose [facility] Urine dipstick for leukocyte esterase [facility] Urine dipstick for nitrite [facility] Urine dipstick for protein [facility] Urine examination [facility] Urine microscopy: epithelial cells [facility] Urine Microscopy: wh ite cells [facility] Urine opiate measurement [facility] Urine opiate measurement [facility] Urobilinogen [Presen ce] in Urine [facility] Vitamin B12 measurement [facility] Vitamin D, 1,25-dihydroxy measurement [facility] End: 12-29-2023 XR Shoulder - left 2 Views [facility] Service Area Work Phone: Comment on above: Once for 1 Occurrences starting 12/29/19 24 until 12/29/2023 [facility] Immunizations Immunization Date Immunization Notes Care Provider Zelda walker 02-04-2018 influenza virus vaccine, unspecified formulation Unk (Hist) [facility] 02-05-2017 influenza, injectabl e, quadrivalent, preservative free Dr. Jj Eason Work Phone: [facility] 02-05-2017 influenza, seasonal, injectable Dr. Jj Eason Work Phone: [facility] 08-03-2015 influenza, injectabl e, quadrivalent, preservative free DR KIRAN NICHOLS MD [facility] 02-11-[address] Jj Eason Work Phone: [facility] Payers Date Payer Category Payer Private Health Insurance [id number] 2024 Medicare (Managed Care) [facility] [place] ([place] MEDICARE ADVANTAGE [id number] 2024 Self-pay [id number] 2021 Medicare ANTH MEDICARE ANTH MEDICARE ADVANTAGE [id number] 2021-Present [facility] [id number] [place], [place] 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 [id number] 2017 Unknown 2016 Unknown [id number] 2014 Self-pay [id number] 2013 Unknown [facility] [id number] 1965 Unknown [id number] 2.16.840.1.218677.3.579.2. 903 1965 Unknown [id number] 2.16.840.1.495221.3.579.2. 903 1965 Unknown [id number] 2.16.840.1.466738.3.579.2. 903 1965 Unknown [id number] 2.16.840.1.791265.3.579.2. 903 1965 Unknown [id number] 2.16.840.1.337114.3.579.2. 903 1965 Unknown [id number] 2.16.840.1.307255.3.579.2. 903 1965 Unknown [id number] 2.16.840.1.744563.3.579.2. 903 1965 Unknown [id number] 2.16.840.1.022002.3.579.2. 903 1965 Unknown [id number] 2.16.840.1.990566.3.579.2. 903 1965 Unknown [id number] 2.16.840.1.166512.3.579.2. 903 1965 Unknown [id number] 2.16.840.1.164922.3.579.2. 903 1965 Unknown [id number] 2.16.840.1.362688.3.579.2. 732 1965 Unknown [id number] 2.16.840.1.699075.3.579.2. 1245 1965 Unknown [id number] 2.16.840.1.700431.3.579.2. 1314 1965 Unknown [id number] 2.16.840.1.586045.3.579.2. 1143 1965 Unknown [id number] 2.16.840.1.804387.3.579.2. 1313 1965 Unknown [id number] 2.16.840.1.054816.3.579.2. 1313 1965 Unknown [id number] 2.16.840.1.048427.3.579.2. 1313 1965 Unknown [id number] 2.16.840.1.912333.3.579.2. 1313 1965 Unknown [id number] 2.16.840.1.867970.3.579.2. 1313 1965 Unknown [id number] 2.16.840.1.315978.3.579.2. 1313 1965 Unknown [id number] 2.16.840.1.885061.3.579.2. 1313 1965 Unknown [id number] 2.16.840.1.480892.3.579.2. 1313 1965 Unknown [id number] 2.16.840.1.396741.3.579.2. 1313 1965 Unknown [id number] 2.16.840.1.761638.3.579.2. 1313 1965 Unknown [id number] 2.16.840.1.781315.3.579.2. 1313 1965 Unknown [id number] 2.16.840.1.665525.3.579.2. 1313 1965 Unknown [id number] 2.16.840.1.056510.3.579.2. 1313 1965 Unknown [id number] 2.16.840.1.818232.3.579.2. 1313 1965 Unknown [id number] 2.16.840.1.326614.3.579.2. 1142 1965 Unknown [id number] 2.16.840.1.930745.3.579.2. 1142 1965 Unknown [id number] 2.16.840.1.117364.3.579.2. 1143 1965 Unknown [id number] ..840.1.633356.3.579.2. 627 1965 Unknown [id number] 2.16.840.1.371249.3.579.2. 627 Medicare [employer]NA MEDICARE [facility] [id number] Unknown [id number] Unknown [facility] [id number] Unknown [id number] 2.840.1.918009.3.579.2. 462 Unknown [id number] 2.840.1.909340.3.579.2. 462 Unknown [id number] 2.840.1.621164.3.579.2. 462 Unknown [id number] 2.840.1.059401.3.579.2. 462 Unknown [id number] 2.840.1.481292.3.579.2. 462 Unknown [id number] 2.840.1.194193.3.579.2. 462 Unknown [id number] 2.16840.1.966180.3.579.2. 462 Unknown [id number] 2.840.1.125328.3.579.2. 462 Unknown [id number] 2.840.1.556568.3.579.2. 462 Unknown [id number] 2.840.1.094964.3.579.2. 462 Unknown [id number] 2.840.1.524752.3.579.2. 462 Unknown [id number] 2.16840.1.843579.3.579.2. 462 Unknown [id number] 2.840.1.997837.3.579.2. 462 Unknown [id number] 2.16.840.1.827532.3.579.2. 462 Unknown [id number] 2.16.840.1.711842.3.579.2. 462 Unknown [id number] 2.16.840.1.734369.3.579.2. 462 Unknown [id number] 2.16.840.1.920177.3.579.2. 462 Unknown [id number] 2.16.840.1.412236.3.579.2. 462 Unknown [id number] 2.16.840.1.820041.3.579.2. 462 Unknown [id number] 2.16.840.1.887014.3.579.2. 462 Unknown [id number] 2.16.840.1.822491.3.579.2. 462 Unknown [id number] 2.16.840.1.379127.3.579.2. 462 Unknown [id number] 2.16.840.1.271323.3.579.2. 462 Unknown [id number] 2.16.840.1.267323.3.579.2. 462 Social History Date Type Detail Facility Start: 04-24-2020 End: 01-20-2025 Tobacco smoking status NHIS Unknown if ever smoked [facility] Start: 1965 Sex Assigned At Not on file O [facility] Start: 02-15-2022 End: 12-29-2023 Exposure to SARS-CoV-2 (event) Not sure [facility] Start: 02-25-2022 End: 02-27-2025 Tobacco smoking status NHIS Never smoked tobacco [facility] Start: 02-25-2022 End: 01-10-2025 Tobacco use and exposure Smokeless tobacco non-user [facility] Start: 02-25-2022 End: 08-11-2023 Alcohol intake Current drinker of alcohol (finding) [facility] Start: 02-25-2022 Tobacco Comment second hand sm vinh growing up. [facility] Start: 04-22-2016 Alcohol Comment Rare [facility] Start: 08-16-2020 Non-smoker [facility] Start: 1965 Sex Assigned At Male [facility] Start: 02-10-2013 None [facility] Start: 02-10-2013 Spouse/ Signif icant Other [facility] Start: 02-25-2022 End: 01-16-2025 History of Social function [facility] Start: 02-25-2022 End: 01-16-2025 Tobacco use panel [facility] National Score (1-100), lower number is lower risk 60 [facility] Start: 08-03-2015 End: 07-14-2024 Sex Male (finding) [facility] Start: 01-13-2025 End: 01-16-2025 Alcoholic beverage intake Lifetime non-drinker (finding) [facility] Start: 01-04-2025 Alcohol intake Alcohol Use Details [facility] Start: 05-14-2023 Sexual Orientation Choose not to disclose [facility] Start: 03-15-2019 Sexual Orientation Straight or heterosexual [facility] Sexual Orientation [facility] Start: 02-27-2025 Not applicable (qualifier value) [facility] NEGATED: Highlighted rowStart: 01-13-2025 End: 01-25-2025 Tobacco smoking status NHIS Unknown if ever smoked [facility] NEGATED: Highlighted row Alcohol intake Alcohol Use Details [facility] Medical [facility] Procedure Code Equipment Code Equipment Origin al Text Equipment Identifier Dates SUTURE,LIGA CLIP SM LT-100 FDA Start: 08-23-2020 SUTURE,LIGA CLIP SM LT-100 FDA Start: 08-23-2020 SUTURE,LIGA CLIP SM LT-100 FDA Start: 08-23-2020 SUTURE,LIGA CLIP SM LT-100 FDA Start: 08-23-2020 SUTURE,LIGA CLIP SM LT-100 FDA Start: 08-23-2020 SUTURE,LIGA CLIP SM LT-100 FDA Start: 08-23-2020 SUTURE,LIGA CLIP SM LT-100 FDA Start: 08-23-2020 SUTURE,LIGA CLIP SM LT-100 FDA Start: 08-23-2020 SUTURE,LIGA CLIP SM LT-100 FDA Start: 08-23-2020 SUTURE,LIGA CLIP SM LT-100 FDA Start: 08-23-2020 SUTURE,LIGA CLIP SM LT-100 FDA Start: 08-23-2020 SUTURE,LIGA CLIP SM LT-100 FDA Start: 08-23-2020 SUTURE,LIGA CLIP SM LT-100 FDA Start: 08-23-2020 SUTURE,LIGA CLIP SM LT-100 FDA Start: 08-23-2020 SUTURE,LIGA CLIP SM LT-100 FDA Start: 08-23-2020 SUTURE,LIGA CLIP SM LT-100 FDA Start: 08-23-2020 SUTURE,LIGA CLIP SM LT-100 FDA Start: 08-23-2020 SUTURE,LIGA CLIP SM LT-100 FDA Start: 08-23-2020 Screw, Evaristo 4.5 X 70mm, Ti Case [id number] Start: 04-07-2020 Comment on above: Description: Convert ed from [facility]. Please see archived information for full log information. Screw, Canc Ti, Full Thrd, 4.0 X 60mm Case [id number] Start: 04-07-2020 Comment on above: Description: Convert ed from [facility]. Please see archived information for full log information. Quickanchor Plus , Gii, W/Orthocord Case [id number] Start: 04-07-2020 Comment on above: Description: Convert ed from [facility]. Please see archived information for full log information. SUTURE,LIGA CLIP SM LT-100 FDA Start: 08-23-2020 SUTURE,LIGA CLIP SM LT-100 FDA Start: 08-23-2020 SUTURE,LIGA CLIP SM LT-100 FDA Start: 08-23-2020 SUTURE,LIGA CLIP SM LT-100 FDA Start: 08-23-2020 SUTURE,LIGA CLIP SM LT-100 FDA Start: 08-23-2020 SUTURE,LIGA CLIP SM LT-100 FDA Start: 08-23-2020 SUTURE,LIGA CLIP SM LT-100 FDA Start: 08-23-2020 SUTURE,LIGA CLIP SM LT-100 FDA Start: 08-23-2020 SUTURE,LIGA CLIP SM LT-100 FDA Start: 08-23-2020 Shell G7 Finned 4 H 60mm G - Sna - [id number])NA, [id number]_[facility] FDA Start: 01-16-2025 Liner G7 Neutral Vit E 40mm G - Sna - [id number] ()[id number])NA, [id number]_[facility] FDA Start: 01-16-2025 Z1 Size 7 Collar ed Cementless High Offset ()[id number])NA, [id number]_[facility] FDA Start: 01-16-2025 Hip Hd Blx D Fem 40mm +0mm - Sna - [id number] +[id number] NA, [id number]_imp FDA Start: 01-16-2025 SUTURE,LIGA CLIP SM LT-100 FDA Start: 08-23-2020 SUTURE,LIGA CLIP SM LT-100 FDA Start: 08-23-2020 Goals Date Patient Goal Desired Activity /State Functional Status Date Assessment Result Facility 03-07-2023 Functional status Activity Abili ty With Assist of 1 [facility] Work Phone: 03-06-2023 Functional status Patient Activity Bedres t [facility] Work Phone: 02-28-2023 Functional status Ambulates;Bathroom Priv ilege [facility] Work Phone: 01-21-2023 Functional status Bedside Commode [facility] Work Phone: Mental Status Date Assessment Result Facility 08-15-2024 Cognitive function Voice/Name [facility] Work Phone: 05-02-2024 Cognitive function Level Of Cons ciousness Awake;Appropriate [facility] Work Phone: 05-02-2024 Cognitive function Voice/Name [facility] Work Phone: 08-31-[address] [facility] Work Phone: 03-07-2023 Cognitive function Voice/Name [facility] Work Phone: 02-28-2023 Cognitive function Voice/Name [facility] Work Phone: 02-25-2023 Cognitive function Level Of Cons ciousness Awake;Alert;Appropriate;Follow s Commands [facility] Work Phone: 01-21-2023 Cognitive function Voice/Name [facility] Work Phone: 01-12-2023 Cognitive function Voice/Name [facility] Work Phone: 09-29-2022 Cognitive function Voice/Name [facility] Work Phone: 03-17-2022 Cognitive function Voice/Name [facility] Work Phone: Clinical Notes 04-06-2020 to 03-03-2025 Note Date & Type Note Facility 03-03-2025 Note HNO ID: [id number] Author: CHAPO CORTEZ MD Service: ? Author Type: Physician Type: Progress Notes Filed: 03/03/2025 16:44 Note Text: SPINE SURGERY ESTABLISHED VISIT This is an in-person visit. DATE OF SERVICE: 03/02/2025 DATE OF LAST VISIT: Visit date not found SUBJECTIVE: HPI:Meliza Eastman is a 59 year old male presenting alone. Pt c/o neck pain/stiffness as well as increasing back pain (described as more of a pressure like feeling than a stabbing pain). Pt's hands go numb at night. It feels like he has numbness going up his arm. MEDICATIONS: gabapentin (NEURONTIN) 800 mg tablet Take 800 mg by mouth daily at bedtime. hydroCHLOROthiazide 25 mg tablet Take 1 tablet by mouth every afternoon. nabumetone (RELAFEN) 750 mg tablet Take 1 tablet by mouth every 12 hours. omeprazole (PRILOSEC) 40 mg capsule ramipril (ALTACE) 10 mg capsule tamsulosin (FLOMAX) 0.4 mg carvedilol (COREG) 25 mg tablet Take 0.5 tablets by mouth two times a day. amLODIPine (NORVASC) 5 mg tablet Take 1 tablet by mouth daily at bedtime. pantoprazole DR (PROTONIX) 40 mg tablet Take 1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 Outcomes Date/Time User Outcome 01/19/25 1021 Guadalupe Teixeira PTA Progressing Encounter Problems (Resolved) There are no resolved problems. Education Documentation Explain call button use, taught by Guadalupe Teixeira PTA at 01/19/2025 10:00 AM. Learner: Patient Readiness: Acceptance Method: Explanation, Demonstration Response: Verbalizes Understanding, Demonstrated Understanding Teach fall prevention measures, taught by Guadalupe Teixeira PTA at 01/19/2025 10:00 AM. Learner: Patient Readiness: Acceptance Method: Explanation, Demonstration Response: Verbalizes Understanding, Demonstrated Understanding Home Exercise Program, taught by Guadalupe Teixeira PTA at 01/19/2025 10:00 AM. Learner: Patient Readiness: Acceptance Method: Explanation, Demonstration Response: Verbalizes Understanding, Demonstrated Understanding Mobility Training, taught by Guadalupe Teixeira PTA at 01/19/2025 10:00 AM. Learner: Patient Readiness: Acceptance Method: Explanation, Demonstration Response: Verbalizes Understanding, Demonstrated Understanding Education Comments No comments found. Cosigned by Nicole Villarreal PT at 01/19/2025 10:44 AM EDT * Va Martinez - 01/19/2025 8:47 AM EDT Images from the original note were not included. EDDIE Sr Coordinator followed up on SNF prior auth ([id number]) via portal, auth remain pending. Updated @ 1143a- Sr Coordinator submitted updated PT note as well as followed up on SNF prior auth via portal. Auth has been approved through 01/23. CM updated. * Chapo Rodriguez DO - 01/19/2025 7:00 AM EDT Images from the original note were not included. Chapo Rodriguez DO [facility] Hospital[facility] PROGRESS NOTE Patient Name: Meliza Eastman : 1965 Admit Date: [id number] Physicians: Jj Eason MD (Family); No ref. provider found (Referring) Perpetual Assessment: Meliza Eastman is a 59 y.o. male with history of anxiety, depression, bipolar, who presented to [facility] for orthopedic procedure. He is status post right total hip arthroplasty on January 16. [facility] is consulted for medical management. Assessment and Plan Right hip primary osteoarthritis - [place] [address] - SD ARTHROPLASTY ACETABULAR AND PROXIMAL FEMORAL PROSTHETIC REPLACEMENT on 01/16/2025 - Continue multimodal pain management. Scheduled acetaminophen. Opioids as needed for breakthrough pain (monitor bowel function and sedation). Ice therapy and elevation as tolerated. - Incision site clean, dry, intact. Dressing to remain in place until otherwise indicated by surgery team. Continue monitoring for signs of infection. - Weightbearing status: AT - Monitor for fever, increasing pain, drainage, or signs of DVT/PE - evaluating for SNF on dc v Home - DVT ppx on xarelto 10mg x2 weeks, will transition to asa 81mg bid x4 weeks Hypertension, essential BP reviewed; appears controlled in post surgical setting -home regimen ramipril->lisinopril 40mg, coreg 12.5mg bid, norvasc 2.5mg -continue and monitor Depression Anxiety Bipolar Home regimen wellbutrin 150mg bid, lamictal 400mg qHS, perphenazine 8 mg, cymbalta 60mg Continue home medications Hypercholesterolemia Continue on Zetia Chronic pain Described to have chronic back and neck pain. Continue current pain control Obstructive sleep apnea Patient states he does not tolerate CPAP and would not use it. - Recommend outpatient follow-up Obesity Body mass index is 45.15 kg/m . -Needs aggressive lifestyle modification as outpatient DVT Prophylaxis: Deferred to Primary Service, on Xarelto 10 mg Code Status: Full code Expected Date of Discharge: Defer to the orthopedic surgery team Discharge Planning: Thank you for allowing us assist in the care or your patient. Patient ok to discharge from a medicine perspective. Please call with any questions. History Reason For Consult: Medical management HPI and ROS: patient seen and examined pain controlled. Passing gas and eating well. No sob. Did get pain med prior to eval so feels a little sleepy from that. Physical Examination Vital Signs: Temp: 35.6 C (96.1 F) (01/19 0550) Heart Rate: 77 (01/19 0550) Resp: 15 (01/19 0550) BP: 115/79 (01/19 0550) GENERAL: Awake, nontoxic-appearing, laying in bed, no apparent distress CV: Regular rate and rhythm RESP: Clear to auscultation bilaterally, no respiratory distress GI: Soft, non-tender nondistended NEURO: Alert, Ox3. Hip range of motion is limited due to recent surgery. Otherwise nonfocal exam Reviewed 01/19/25 7:00 AM EDT: MDM: Moderate. Reviewed BP controlled, spo2 maintains on RA, prn pain meds use * Maria Eugenia Landrum RN - 01/19/2025 6:09 AM EDT Rounded with Dr Disla and Tami PT - PT progess reviewed- WBAT on the operative extremity - Xarelto 10mg daily x 2 weeks, then Aspirin 81mg BID x 4 weeks for DVT ppx - no incisional issues noted, Prevena in place no drainage To be removed in the office 1 week - Follow-up in clinic in 2 weeks - Plan for discharge to SNF when cleared by insurance and COP[employer] * Vladimir Disla MD - 01/19/2025 5:54 AM EDT [facility] Progress Note Assessment and Plan POD # 3 s/p R JERRELL - Pain control - WBAT, ROM as tolerated - PT/OT - DVT ppx - Xarelto 10 mg daily x 2 weeks, followed by ASA 81mg BID x 4 weeks - Medical co-management per [facility] - OK to d/c to home when passes PT and cleared by [facility] - Follow-up with Dr. Varma in 2 weeks for wound check Anticipated days of stay at [facility]: less than 30 days. As the individual's physician, I certify the individual is being discharged to a nursing facility directly from a non-psychiatric hospital after receiving acute patient care at the hospital, requires nursing facility services for the condition for which he/she received care in the hospital, and as the physician I certify no later than a date of discharge that the individual requires fewer than 30 days of nursing facility services. Subjective Patient did well overnight, mobilized with PT, tolerating diet. pain and nausea well controlled. Objective Vitals: 01/19/25 0550 BP: 115/79 Pulse: 77 Resp: 15 Temp: 35.6 C (96.1 F) SpO2: 93% Right Extremity Exam: Dressing appears clean dry and intact Prevena vac There is minmal drainage There is appropriate post operative swelling and tenderness around the incision Extremity is neurovascularly intact distally * France Mccann RN - 01/18/2025 10:44 PM EDT Goals: Identify possible barriers to meeting goals/advancing plan of care: Stability of the patient: Moderately Stable - Low risk of patient condition declining or worsening End of Shift Summary: * Caroline Edward RN - 01/18/2025 4:19 PM EDT 01/18/25 1606 Discharge Placement Checklist Benefits for Post-Discharge Services Verified Yes Post-Discharge Benefits Explained to Patient/Family Yes Patient/Family Advised to Contact Insurance Company Customer Service Yes Prior Authorization for Discharge Coordination Type Needed Destination Prior Authorization - Destination Destination Type half-way facility Service Provider [facility] Payer Communication Destination Comments pending Prior Authorization Start Date 01/18/25 Pending SNF auth. Updated CM and emailed admissions at [facility] at [email or web address] * Abby Velasquez RN - 01/18/2025 3:25 PM EDT Patient updated at bedside that both [facility] and [facility] have accepted. Patient wants to use [facility] as choice facility. CM has updated Kelsey with [facility]- [phone]- they are facility of choice. CM will ask Sr. Coordinator to start insurance precert. Facility will need a covid test on day of discharge. * Guadalupe Teixeira PTA - 01/18/2025 2:30 PM EDT [facility] Physical Therapy Treatment * Maria Luisa Varma MD - [place] [id number] - SD ARTHROPLASTY ACETABULAR AND PROXIMAL FEMORAL PROSTHETIC REPLACEMENT 2 Days Post-Op Multidisciplinary Rounding Report PT Discharge Recommendations: half-way facility placement (pt lives alone and has no supportto return to home. Unsafe to return to home environment without appropriate help at this time.) Distance Ambulated (ft): 45 Device: Rolling walker Orthopedic Precautions: No Hip Precautions Fall prevention education provided including use of call light in hospital, use of appropriate assistive device, safe mobility techniques, and safety measures at home. Continue as per PT POC Subjective/Objective/Assessment/Plan DVT pumps in use. Pt agreeable to PT. See grid below for mobility levels. Pt sat on EOB at end of session with call light in reach and all needs met. Cont as per pOC until discharged to SNF 01/18/25 1430 PT Last Visit PT Received On 01/18/25 General Family/Caregiver Present No PT Time Calculation PT Start Time 1430 PT Stop Time 1453 PT Time Calculation (min) 23 min Precautions Medical Precautions Fall Risk Safety Interventions Call schaffer within reach;Gait belt;ID band on RLE Weight Bearing Status As Tolerated Orthopedic Precautions No Hip Precautions Pain Assessment Pain Assessment 0-10 Pain Score 4 Pain Type Surgical pain Pain Location Hip Pain Orientation Right Cognition Overall Cognitive Status WFL Arousal/Alertness Appropriate responses to stimuli Orientation Level Oriented X4 Following Commands Follows all commands and directions without difficulty Bed Mobility Lying to Sitting Assistance Contact guard Transfers Sit to Stand Assistance Contact guard Ambulation Walking Assistance Contact guard Device Rolling walker Distance Ambulated (ft) 45 Procedures Procedures Gait Training;Therapeutic Activity Gait Training Gait Training Time Entry 15 Gait Training Activity 1 gait training FWW Therapeutic Activity Therapeutic Activity Time Entry 8 Therapeutic Activity 1 bed mobility Therapeutic Activity 2 transfer training Therapeutic Activity 3 education PT Assessment Medical Staff Made Aware Yes Plan PT Plan Skilled PT PT Frequency 7 days per week PT Duration of Sessions PRN PT Treatments per day 1-2 times per day PT Discharge Recommendations half-way facility placement (pt lives alone and has no support to return to home. Unsafe to return to home environment without appropriate help at this time.) Goals/Education Goals: Education: Encounter Problems Encounter Problems (Active) Template: Physical Therapy Problem: PT Short Term Goals Dates: Start: 01/16/25 Goal: Pt will perform bed mobility with CGA. (Resolved) Dates: Start: 01/16/25 Expected End: 01/17/25 Resolved: 01/18/25 Outcomes Date/Time User Outcome 01/18/25 0848 Guadalupe Teixeira PTA Completed Goal: Pt will transfer with SBA. Dates: Start: 01/16/25 Expected End: 01/17/25 Outcomes Date/Time User Outcome 01/18/25 1453 Guadalupe Teixeira PTA Progressing Goal: Pt will ambulate 100 ft. with wheeled walker and SBA Dates: Start: 01/16/25 Expected End: 01/17/25 Outcomes Date/Time User Outcome 01/18/25 1453 Guadalupe Teixeira PTA Progressing Goal: Pt will demo good understanding of HEP protocol Dates: Start: 01/16/25 Expected End: 01/17/25 Outcomes Date/Time User Outcome 01/18/25 1453 Guadalupe Teixeira PTA Progressing Encounter Problems (Resolved) There are no resolved problems. Education Documentation Explain call button use, taught by Guadalupe Teixeira PTA at 01/18/2025 2:30 PM. Learner: Patient Readiness: Acceptance Method: Explanation, Demonstration Response: Verbalizes Understanding, Demonstrated Understanding Teach fall prevention measures, taught by Guadalupe Teixeira PTA at 01/18/2025 2:30 PM. Learner: Patient Readiness: Acceptance Method: Explanation, Demonstration Response: Verbalizes Understanding, Demonstrated Understanding Mobility Training, taught by Guadalupe Teixeira PTA at 01/18/2025 2:30 PM. Learner: Patient Readiness: Acceptance Method: Explanation, Demonstration Response: Verbalizes Understanding, Demonstrated Understanding Explain call button use, taught by Guadalupe Teixeira PTA at 01/18/2025 8:15 AM. Learner: Patient Readiness: Acceptance Method: Explanation, Demonstration Response: Verbalizes Understanding, Demonstrated Understanding Teach fall prevention measures, taught by Guadalupe Teixeira PTA at 01/18/2025 8:15 AM. Learner: Patient Readiness: Acceptance Method: Explanation, Demonstration Response: Verbalizes Understanding, Demonstrated Understanding Home Exercise Program, taught by Guadalupe Teixeira PTA at 01/18/2025 8:15 AM. Learner: Patient Readiness: Acceptance Method: Explanation, Demonstration Response: Verbalizes Understanding, Demonstrated Understanding Mobility Training, taught by Guadalupe Teixeira PTA at 01/18/2025 8:15 AM. Learner: Patient Readiness: Acceptance Method: Explanation, Demonstration Response: Verbalizes Understanding, Demonstrated Understanding Education Comments No comments found. Cosigned by Aurora Ambrocio PT at 01/18/2025 3:11 PM EDT * Abby Velasquez RN - 01/18/2025 2:01 PM EDT CM called [facility] in [place]- they have declined referral due to no bed availability. CM has called and spoke with Liz at [facility]- they did receive referral and are reviewing- she confirms they do have beds available. CM called [facility] and spoke with Tonya- she confirms they do have beds, they did not receive entire fax- CM has resent referral at this time. She has reached out to her liaison, Leila, to follow. Patient has been updated. [facility] has accepted if HH becomes necessary. * Abby Velasquez RN - 01/18/2025 10:34 AM EDT CM to bedside, updates provided. Patient provided 3 additional SNF choices. Patient will use HH as a back up and would like CM to start those referrals as well. CM will send referrals and follow. * Abby Velasquez RN - 01/18/2025 9:54 AM EDT CM spoke with Yolanda at [facility]- they are not able to accept due to no bed availability in the next week. * Abby Velasquez RN - 01/18/2025 8:51 AM EDT CM received IB call from Rabia at [facility]- they facility is unable to accept patient, no able to accommodate needs. * Tim Vallejo RN - 01/18/2025 8:49 AM EDT MDR summary for patient Multi-Disciplinary Rounding was completed on this patient with the following participants: []Patient []Family/Friend/Caregiver [x]Physician [x]Charge Nurse [x]Primary Nurse [x]Pharmacy [x]Case Management [x]Physical Therapy [x]M2B [x]Supervisor Coffee Physician Reason for admission: Patient arrived to unit from: []ED []Another inpatient unit Unit: []Direct Admit []Other: Patient still requiring: []Further workup []Monitoring []IV Antibiotics []Diuretics []Pain control []Lab/tests []Therapy Evaluation []Diet toleration []Consult: []Medically Clear []Other: Estimated Date of discharge: []Today []Today pending workup []Tomorrow []Early Discharge Rounds []Placed in Early d/c epic list []1-2 days []2-3 days []3+ days Nursing Any Nursing Concerns/Needs? []Yes: [x]No How does the patient ambulate at home? []Independent []Cane []Walker []Wheelchair []Other: VTE Prophylaxis? []Yes []SCD/SUGAR HOSE []On []Off []PT Refusing []Chemical Prophylaxis []Yes []No []No - Why?? Does the patient have any active LDAs? []Yes []Central Line []Remove []Keep []Keep at D/C []Rodriguez []Remove []Keep []Keep at D/C []Drain []Remove []Keep []Keep at D/C []No Case Management Patient's Living Situation: []Home []Lives alone []Lives with Support []Home health care []Inpatient Rehab []half-way facility [][facility] []Other: Discharge Destination: []Home with []No Needs []Home health care []Inpatient Rehab []half-way facility []halfway care []Pending evaluation []TBD []Other: Facility info []List Provided []Referrals sent []Awaiting acceptance []Awaiting bed availability []Precert []No Precert []Covid Swab []Covid Booster []Covid positive waiting Patient will be transported home by: []Self []Family/Friend []Cab []Other []Transport and will require []O2 []Drips []Other needs: []TBD Does the patient need any services arranged? []Yes []Dialysis []Infusion []Wound care []Outpatient rehab []Other: []No []TBD Pharmacy Disposition Plan Pt plans to discharge SNF. * Chapo Rodriguez DO - 01/18/2025 8:18 AM EDT Images from the original note were not included. Chapo Rodriguez DO [facility] Hospitalists PROGRESS NOTE Patient Name: Meliza Eastman : 1965 Admit Date: [id number] Physicians: Jj Eason MD (Family); No ref. provider found (Referring) Perpetual Assessment: Meliza Eastman is a 59 y.o. male with history of anxiety, depression, bipolar, who presented to [facility] for orthopedic procedure. He is status post right total hip arthroplasty on January 16. [facility] is consulted for medical management. Assessment and Plan Right hip primary osteoarthritis - [place] [id number] - SD ARTHROPLASTY ACETABULAR AND PROXIMAL FEMORAL PROSTHETIC REPLACEMENT on 01/16/2025 - Continue multimodal pain management. Scheduled acetaminophen. Opioids as needed for breakthrough pain (monitor bowel function and sedation). Ice therapy and elevation as tolerated. - DVT ppx on xarelto 10mg - Perioperative antibiotics as ordered. No further antibiotics indicated unless signs of of infection arise. - Incision site clean, dry, intact. Dressing to remain in place until otherwise indicated by surgery team. Continue monitoring for signs of infection. - Weightbearing status: AT - Monitor for fever, increasing pain, drainage, or signs of DVT/PE - evaluating for SNF on dc v Home Hypertension, essential BP reviewed; appears controlled in post surgical setting -home regimen ramipril->lisinopril 40mg, coreg 12.5mg bid, norvasc 2.5mg -continue and monitor Depression Anxiety Bipolar Home regimen wellbutrin 150mg bid, lamictal 400mg qHS, perphenazine 8 mg, cymbalta 60mg Continue home medications Hypercholesterolemia Continue on Zetia Chronic pain Described to have chronic back and neck pain. Continue current pain control Obstructive sleep apnea Patient states he does not tolerate CPAP and would not use it. - Recommend outpatient follow-up Obesity Body mass index is 45.15 kg/m . -Needs aggressive lifestyle modification as outpatient DVT Prophylaxis: Deferred to Primary Service, on Xarelto 10 mg Code Status: Full code Expected Date of Discharge: Defer to the orthopedic surgery team Discharge Planning: Thank you for allowing us assist in the care or your patient. Patient ok to discharge from a medicine perspective. Please call with any questions. History Reason For Consult: Medical management HPI and ROS: patient seen and examined states pain and hip but overall controlled. Tolerating p.o. intake. Is being looked at to go to half-way facility on discharge. Physical Examination Vital Signs: Temp: 36.1 C (97 F) (01/19 520) Heart Rate: 73 (01/19 520) Resp: 15 (01/19 520) BP: 122/75 (01/19 520) GENERAL: Awake, nontoxic-appearing, laying in bed, no apparent distress CV: Regular rate and rhythm RESP: Clear to auscultation bilaterally, no respiratory distress GI: Soft, non-tender nondistended NEURO: Alert, Ox3. Hip range of motion is limited due to recent surgery. Otherwise nonfocal exam Reviewed 01/18/25 7:18 AM EDT: MDM: Moderate. Reviewed BP-add hold parameters to meds, continue with home med regimen; med rec done, discussed with therapy and cm * Guadalupe Teixeira PTA - 01/18/2025 8:15 AM EDT [facility] Physical Therapy Treatment * Maria Luisa Varma MD - [place] [id number] - SD ARTHROPLASTY ACETABULAR AND PROXIMAL FEMORAL PROSTHETIC REPLACEMENT 2 Days Post-Op Multidisciplinary Rounding Report PT Discharge Recommendations: half-way facility placement (pt lives alone and has no supportto return to home. Unsafe to return to home environment without appropriate help at this time.) Distance Ambulated (ft): 45 Device: Rolling walker Orthopedic Precautions: No Hip Precautions Fall prevention education provided including use of call light in hospital, use of appropriate assistive device, safe mobility techniques, and safety measures at home. Continue as per PT POC Subjective/Objective/Assessment/Plan DVT pumps in use. HEP and VRE completed x10 ea. See grid below for all mobility levels. Pt sat in achair at end of session with call light in reach and all needs met. I/s pt to push call light when ready to return to bed. Pt verbalized understanding. Call light and phone in reach. Cont as per pOC until discharged to SNF for cont skilled services to address balance and safe/functional mobility until pt safe to return home alone 01/18/25 0815 PT Last Visit PT Received On 01/18/25 General Family/Caregiver Present No PT Time Calculation PT Start Time 0815 PT Stop Time 0844 PT Time Calculation (min) 29 min Precautions Medical Precautions Fall Risk Safety Interventions Call schaffer within reach;Gait belt;ID band on RLE Weight Bearing Status As Tolerated Orthopedic Precautions No Hip Precautions Pain Assessment Pain Assessment 0-10 Pain Score 3 Pain Type Surgical pain Pain Location Hip Pain Orientation Right Cognition Overall Cognitive Status WFL Arousal/Alertness Appropriate responses to stimuli Orientation Level Oriented X4 Bed Mobility Sitting to Lying Assistance Contact guard Lying to Sitting Assistance Contact guard Transfers Sit to Stand Assistance Contact guard Ambulation Walking Assistance Contact guard Device Rolling walker Distance Ambulated (ft) 45 Procedures Procedures Gait Training;Therapeutic Exercise Gait Training Gait Training Time Entry 15 Gait Training Activity 1 gait training with FWW Therapeutic Exercise Therapeutic Exercise Time Entry 14 Therapeutic Exercise Activity 1 HEP Therapeutic Exercise Activity 2 VRE PT Assessment Medical Staff Made Aware Yes Plan PT Plan Skilled PT PT Frequency 7 days per week PT Duration of Sessions PRN PT Treatments per day 1-2 times per day PT Discharge Recommendations half-way facility placement (pt lives alone and has no support to return to home. Unsafe to return to home environment without appropriate help at this time.) Goals/Education Goals: Education: Encounter Problems Encounter Problems (Active) Template: Physical Therapy Problem: PT Short Term Goals Dates: Start: 01/16/25 Goal: Pt will perform bed mobility with CGA. (Resolved) Dates: Start: 01/16/25 Expected End: 01/17/25 Resolved: 01/18/25 Outcomes Date/Time User Outcome 01/18/25 0848 Guadalupe Teixeira PTA Completed Goal: Pt will transfer with SBA. Dates: Start: 01/16/25 Expected End: 01/17/25 Outcomes Date/Time User Outcome 01/18/25 0848 Guadalupe Teixeira PTA Progressing Goal: Pt will ambulate 100 ft. with wheeled walker and SBA Dates: Start: 01/16/25 Expected End: 01/17/25 Outcomes Date/Time User Outcome 01/18/25 0848 Guadalupe Teixeira PTA Progressing Goal: Pt will demo good understanding of HEP protocol Dates: Start: 01/16/25 Expected End: 01/17/25 Outcomes Date/Time User Outcome 01/18/25 0848 Guadalupe Teixeira PTA Progressing Encounter Problems (Resolved) There are no resolved problems. Education Documentation Explain call button use, taught by Guadalupe Teixeira PTA at 01/18/2025 8:15 AM. Learner: Patient Readiness: Acceptance Method: Explanation, Demonstration Response: Verbalizes Understanding, Demonstrated Understanding Teach fall prevention measures, taught by Guadalupe Teixeira PTA at 01/18/2025 8:15 AM. Learner: Patient Readiness: Acceptance Method: Explanation, Demonstration Response: Verbalizes Understanding, Demonstrated Understanding Home Exercise Program, taught by Guadalupe Teixeira PTA at 01/18/2025 8:15 AM. Learner: Patient Readiness: Acceptance Method: Explanation, Demonstration Response: Verbalizes Understanding, Demonstrated Understanding Mobility Training, taught by Guadalupe Teixeira PTA at 01/18/2025 8:15 AM. Learner: Patient Readiness: Acceptance Method: Explanation, Demonstration Response: Verbalizes Understanding, Demonstrated Understanding Education Comments No comments found. Cosigned by Aurora Ambrocio PT at 01/18/2025 11:01 AM EDT * Abby Velasquez RN - 01/18/2025 8:12 AM EDT EDDIE has called and left voicemails in admissions at both [facility] and [facility] to follow up on referrals that were faxed on 01/17/2025. * Abby Velasquez RN - 01/18/2025 6:15 AM EDT CM rounded with Dr. Varma, Dr. Disla and CARLINE Garrett. Patient tolerating oxycodone for pain. Anticoagulant: xarelto 10mg QD. PT progress reviewed. No incisional issues noted. Plan: SNF- awaiting SNF placement/precert. * Vladimir Disla MD - 01/18/2025 5:51 AM EDT [facility] Progress Note Assessment and Plan POD # 2 s/p R JERRELL - Pain control - WBAT, ROM as tolerated - PT/OT - DVT ppx - Xarelto 10 mg daily x 2 weeks, followed by ASA 81mg BID x 4 weeks - Medical co-management per [facility] - OK to d/c to home when passes PT and cleared by [facility] - Follow-up with Dr. Varma in 2 weeks Anticipated days of stay at [facility]: less than 30 days. As the individual's physician, I certify the individual is being discharged to a nursing facility directly from a non-psychiatric hospital after receiving acute patient care at the hospital, requires nursing facility services for the condition for which he/she received care in the hospital, and as the physician I certify no later than a date of discharge that the individual requires fewer than 30 days of nursing facility services. Subjective Patient did well overnight, mobilized with PT, tolerating diet. pain and nausea well controlled. Objective Vitals: 01/18/25 0520 BP: 122/75 Pulse: 73 Resp: 15 Temp: 36.1 C (97 F) SpO2: 95% Right Extremity Exam: Dressing appears clean dry and intact Prevena vac There is minmal drainage There is appropriate post operative swelling and tenderness around the incision Extremity is neurovascularly intact distally * Bettye Eason - 01/17/2025 2:29 PM EDT SPIRITUAL CARE ASSESSMENT 01/17/25 0842 Clinical Encounter Type Visited With Patient Time Spent 30 Minutes Type of Contact Introduction Spiritual Distress Assessment at beginning of visit Meaning - Overall Life Balance 0 Transcendence 0 Values - Acknowledgement 0 Values - Control 0 Psycho-Social Identity 1 SDAT Beginning of Visit Average Score 0.2 Spiritual Distress Assessment at end of visit Meaning - Overall Life Balance 0 Transcendence 0 Values - Acknowledgement 0 Values - Control 0 Psycho-Social Identity 1 SDAT End of Visit Average Score 0.2 Spiritual Care Assessment: Pt is appropriate and coping he is supported by friends being estranged from his children Spiritual Intervention: Active listening, [place] given, and Hospitality provided provided written and verbal information regarding AD's. Outcome: Pt shared feelings values and understanding the education provided Plan: PC will return at pt/family request. * Verónica Vargas PTA - 01/17/2025 2:12 PM EDT Images from the original note were not included. [facility] Physical Therapy Treatment * Maria Luisa Varma MD - [place] [id number] - SD ARTHROPLASTY ACETABULAR AND PROXIMAL FEMORAL PROSTHETIC REPLACEMENT 1 Day Post-Op Multidisciplinary Rounding Report Discharge Recommendations: Home PT, half-way facility placement (pt lives alone and has no support to return to home. Unsafe to return to home environment without appropriate help at this time.) Distance Ambulated: 60 Device Used: Rolling walker Precautions: No Hip Precautions Prosthesis/Orthosis Used/Applied: Prosthesis/Orthosis Used/Applied: PT-Okay to discharge/Goals met: Reason for discharge recommendation: Patient appears appropriate for home PT with family assist assuming that family can provide level of care required. Patient lacks appropriate support at home and is unsafe to return home alone at this time. Fall prevention education provided including use of call light in hospital, use of appropriate assistive device, safe mobility techniques, and safety measures at home. Continue as per PT POC Subjective Pain Score: 6 Patient agreeable to treatment. States that while he does not like PT, he understands the importance. Objective/Assessment/Plan EMR reviewed prior to treatment, RNBlank, cleared patient to be seen. Family/caregiver unavailable. Patient in bed upon arrival to room and agreeable to treatment. Bed mobility completed with Contact guard, Maximum verbal cues. Transfers required Contact guard, Minimal verbal cues . Patient did ambulate this session. Patient ambulated 60ft. with Rolling walker with Contact guard. Further mobility details located below. Returned to room and patient sat in tall chair at EOB.. Patient instructed to use call light for assistance. Call light and phone in reach at end of session. All questions answered and needs met at this time. 01/17/25 1412 PT Last Visit PT Received On 01/17/25 General Family/Caregiver Present No PT Time Calculation PT Start Time 141 PT Stop Time 1436 PT Time Calculation (min) 24 min Precautions Medical Precautions Fall Risk Safety Interventions Call schaffer within reach;Gait belt RLE Weight Bearing Status As Tolerated Orthopedic Precautions No Hip Precautions Pain Assessment Pain Assessment 0-10 Pain Score 6 Pain Type Surgical pain Pain Location Hip Pain Orientation Right Cognition Overall Cognitive Status WFL Arousal/Alertness Appropriate responses to stimuli Orientation Level Oriented X4 Following Commands Follows all commands and directions without difficulty Safety Judgment Good awareness of safety precautions Bed Mobility Lying to Sitting Assistance Contact guard;Maximum verbal cues Bed Mobility Comments pt in chair at end of session Transfers Sit to Stand Assistance Contact guard;Minimal verbal cues Transfer Comments bed in standard height setting Ambulation Walking Assistance Contact guard Device Rolling walker Distance Ambulated (ft) 60 Comments steady step to progressing to step through Procedures Procedures Gait Training;Therapeutic Exercise Gait Training Gait Training Time Entry 12 Gait Training Activity 1 gait training Gait Training Activity 2 education in step mechanics and walker placement Therapeutic Exercise Therapeutic Exercise Time Entry 12 Therapeutic Exercise Activity 1 LE VRE Therapeutic Exercise Activity 2 HEP x 10 PT Assessment Prognosis Excellent Evaluation/Treatment Tolerance Patient tolerated treatment well Medical Staff Made Aware Yes Comments RN notified that pt up to chair at end of session Plan PT Plan Skilled PT PT Frequency 7 days per week PT Duration of Sessions PRN PT Treatments per day 1-2 times per day PT Discharge Recommendations Home PT;half-way facility placement (pt lives alone and has no support to return to home. Unsafe to return to home environment without appropriate help at this time.) Goals/Education Goals: Education: Encounter Problems Encounter Problems (Active) Template: Physical Therapy Problem: PT Short Term Goals Dates: Start: 01/16/25 Goal: Pt will perform bed mobility with CGA. Dates: Start: 01/16/25 Expected End: 01/17/25 Outcomes Date/Time User Outcome 01/17/25 1441 Verónica Vargas PTA Progressing Goal: Pt will transfer with SBA. Dates: Start: 01/16/25 Expected End: 01/17/25 Outcomes Date/Time User Outcome 01/17/25 1441 Verónica Vargas PTA Progressing Goal: Pt will ambulate 100 ft. with wheeled walker and SBA Dates: Start: 01/16/25 Expected End: 01/17/25 Outcomes Date/Time User Outcome 01/17/25 1441 Verónica Vargas PTA Progressing Goal: Pt will demo good understanding of HEP protocol Dates: Start: 01/16/25 Expected End: 01/17/25 Outcomes Date/Time User Outcome 01/17/25 1441 Verónica Vargas PTA Progressing Encounter Problems (Resolved) There are no resolved problems. Education Documentation Home Exercise Program, taught by Verónica Vargas PTA at 01/17/2025 2:41 PM. Learner: Patient Readiness: Acceptance Method: Explanation, Demonstration Response: Verbalizes Understanding, Needs Reinforcement Mobility Training, taught by Verónica Vargas PTA at 01/17/2025 2:41 PM. Learner: Patient Readiness: Acceptance Method: Explanation, Demonstration Response: Verbalizes Understanding, Needs Reinforcement Mobility Training, taught by Verónica Vargas PTA at 01/17/2025 11:44 AM. Learner: Patient Readiness: Acceptance Method: Explanation, Demonstration Response: Verbalizes Understanding, Needs Reinforcement Education Comments No comments found. Cosigned by Verónica Valdes PT at 01/17/2025 3:06 PM EDT * Abby Velasquez RN - 01/17/2025 12:49 PM EDT CM received IB call from Yolanda at [facility]- they do not currently have bed availability and are unable to accept referral. CM will provide insurance SNF list for additional choices. * Abby Velasquez RN - 01/17/2025 12:33 PM EDT Message received from Yolanda with [employer] [facility] fax number for referral: [phone]- CM updated number and has refaxed through [employer] at this time. CM will follow. * Verónica Vargas PTA - 01/17/2025 11:04 AM EDT Images from the original note were not included. [facility] Physical Therapy Treatment * Maria Luisa Varma MD - [place] [id number] - SD ARTHROPLASTY ACETABULAR AND PROXIMAL FEMORAL PROSTHETIC REPLACEMENT 1 Day Post-Op Multidisciplinary Rounding Report Discharge Recommendations: Home PT, half-way facility placement (Pt requesting SNF as he lives alone) Distance Ambulated: 60 Device Used: Rolling walker Precautions: No Hip Precautions Prosthesis/Orthosis Used/Applied: Prosthesis/Orthosis Used/Applied: PT-Okay to discharge/Goals met: Reason for discharge recommendation: Discharge to home independently unsafe at this time. Patient requesting SNF at discharge. Fall prevention education provided including use of call light in hospital, use of appropriate assistive device, safe mobility techniques, and safety measures at home. Continue as per PT POC Subjective Pain Score: 8 Patient states he sleeping in his lift chair. Reluctant to perform mobility and repeatedly states I can't while performing all mobility. Education provided on importance of frequent and early mobility with minimal assist to promote improved strength and function. Objective/Assessment/Plan EMR reviewed prior to treatment, Blank VILLAFANA, cleared patient to be seen. Family/caregiver unavailable. Patient in bed upon arrival to room and agreeable to treatment. Bed mobility completed with Contact guard, Maximum verbal cues (max encouragment). Transfers required Contact guard, Minimal verbal cues (max encouragment. Pt bed set at standard height) . Patient did ambulate this session. Patient ambulated 60ft. with Rolling walker with Contact guard. Further mobility details located below. Returned to room and patient sat in tall chair at EOB.. Patient instructed to use call light for assistance. Call light and phone in reach at end of session. All questions answered and needs met at this time. 01/17/25 1104 PT Last Visit PT Received On 01/17/25 General Family/Caregiver Present No PT Time Calculation PT Start Time 1104 PT Stop Time 1127 PT Time Calculation (min) 23 min Precautions Medical Precautions Fall Risk Safety Interventions Call schaffer within reach;Gait belt RLE Weight Bearing Status As Tolerated Orthopedic Precautions No Hip Precautions Pain Assessment Pain Assessment 0-10 Pain Score 8 Pain Type Surgical pain Pain Location Hip Pain Orientation Right Cognition Overall Cognitive Status WFL Arousal/Alertness Appropriate responses to stimuli Orientation Level Oriented X4 Following Commands Follows all commands and directions without difficulty Safety Judgment Good awareness of safety precautions Static Sitting Balance Static Sitting-Level of Assistance Standby assistance Dynamic Sitting Balance Dynamic Sitting-Level of Assistance Standby assistance Dynamic Sitting-Balance Support Feet supported Static Standing Balance Static Standing-Level of Assistance Standby assistance Static Standing-Balance Support Right upper extremity supported;Left upper extremity supported (FWW) Dynamic Standing Balance Dynamic Standing-Level of Assistance Contact guard Dynamic Standing-Balance Ambulation Dynamic Standing-Balance Support Right upper extremity supported;Left upper extremity supported (FWW) Bed Mobility Lying to Sitting Assistance Contact guard;Maximum verbal cues (max encouragment) Bed Mobility Comments Pt sat in chair at end of session Transfers Sit to Stand Assistance Contact guard;Minimal verbal cues (max encouragment. Pt bed set at standard height) Ambulation Walking Assistance Contact guard Device Rolling walker Distance Ambulated (ft) 60 Comments steady step to progressing to step through Procedures Procedures Gait Training;Therapeutic Activity Gait Training Gait Training Time Entry 10 Gait Training Activity 1 gait training Gait Training Activity 2 education in walker placement and posture Therapeutic Activity Therapeutic Activity Time Entry 13 Therapeutic Activity 1 bed mobility Therapeutic Activity 2 transfer training Therapeutic Activity 3 toileting Therapeutic Activity 4 education Therapeutic Activity 5 encouragment PT Assessment Prognosis Excellent Evaluation/Treatment Tolerance Patient tolerated treatment well Medical Staff Made Aware Yes Comments BRODERICK Parson cleared for treatment Plan PT Plan Skilled PT PT Frequency 7 days per week PT Duration of Sessions PRN PT Treatments per day 1-2 times per day PT Discharge Recommendations Home PT;half-way facility placement (Pt requesting SNF as he lives alone) Goals/Education Goals: Education: Encounter Problems Encounter Problems (Active) Template: Physical Therapy Problem: PT Short Term Goals Dates: Start: 01/16/25 Goal: Pt will perform bed mobility with CGA. Dates: Start: 01/16/25 Expected End: 01/17/25 Outcomes Date/Time User Outcome 01/17/25 1144 Verónica Vargas PTA Progressing Goal: Pt will transfer with SBA. Dates: Start: 01/16/25 Expected End: 01/17/25 Outcomes Date/Time User Outcome 01/17/25 1144 Verónica Vargas PTA Progressing Goal: Pt will ambulate 100 ft. with wheeled walker and SBA Dates: Start: 01/16/25 Expected End: 01/17/25 Outcomes Date/Time User Outcome 01/17/25 1144 Verónica Vargas PTA Progressing Goal: Pt will demo good understanding of HEP protocol Dates: Start: 01/16/25 Expected End: 01/17/25 Outcomes Date/Time User Outcome 01/16/25 1756 Nicole Villarreal, DAMIAN Progressing Encounter Problems (Resolved) There are no resolved problems. Education Documentation Mobility Training, taught by Verónica Vargas PTA at 01/17/2025 11:44 AM. Learner: Patient Readiness: Acceptance Method: Explanation, Demonstration Response: Verbalizes Understanding, Needs Reinforcement Education Comments No comments found. Cosigned by Verónica Valdes PT at 01/17/2025 2:39 PM EDT * Bubba Prado DO - 01/17/2025 10:39 AM EDT Images from the original note were not included. Bubba Prado DO [facility] Hospital[facility] PROGRESS NOTE Patient Name: Meliza Eastman : 1965 Admit Date: [id number] Physicians: Jj Eason MD (Family); No ref. provider found (Referring) Perpetual Assessment: Meliza Eastman is a 59 y.o. male with history of anxiety, depression, bipolar, who presented to [facility] for orthopedic procedure. He is status post right total hip arthroplasty on January 16. [facility] is consulted for medical management. Assessment and Plan Right hip primary osteoarthritis Status post right total hip arthroplasty performed by orthopedics on December 27 - Defer postoperative management including DVT prophylaxis and pain control to the orthopedic team.Patient has been started on Xarelto 2 mg for prophylaxis by the surgical team. Hypertension, essential Blood pressure is elevated this time, possibly due to pain and anxiety. Better controlled now. [place] resume previous home regimen on discharge. Depression Anxiety Bipolar Continue home medications on discharge. No acute issues at this time Hypercholesterolemia Continue home medications. Chronic pain Described to have chronic back and neck pain. Continue current pain control Obstructive sleep apnea Patient states he does not tolerate CPAP and would not use it. Would prefer to have head of bed elevated and continuous pulse ox. Would recommend that he follow-up with his PCP in outpatient setting to consider repeat sleep study and ongoing titration to his CPAP, or determine other methods of treating his sleep apnea DVT Prophylaxis: Deferred to Primary Service Code Status: Full code Expected Date of Discharge: Defer to the orthopedic surgery team Discharge Planning: No further recommendations from a medical standpoint. Discharge planning process underway. Thank you for the consult. History Reason For Consult: Medical management HPI and ROS: Meliza Eastman was examined his morning at bedside. Laying comfortably in bed. No apparent distress. Appears to be in decent spirits. Pain is easily controlled. Patient did get up earlier today, however states that he felt quite unsteady. Does not feel safe going home as he lives aloneand has no support nearby. He is open to going to a facility. Physical Examination Vital Signs: Temp: 36.6 C (97.9 F) (01/17 913) Heart Rate: 73 (01/17 913) Resp: 16 (01/17 913) BP: 113/70 (01/17 913) GENERAL: Awake, nontoxic-appearing, laying in bed, no apparent distress CV: Regular rate and rhythm RESP: Clear to auscultation bilaterally, no respiratory distress GI: Soft, non-tender nondistended NEURO: Alert, Ox3. Hip range of motion is limited due to recent surgery. Otherwise nonfocal exam Reviewed 01/17/25 10:39 AM EDT: MDM: Moderate. * Abby Velasquez RN - 01/17/2025 9:39 AM EDT Case Management Initial Assessment Nursing Orientation Assessment: Neuro (WDL): Within Defined Limits Orientation Level: Oriented X4 Confirmed on CM assessment Patient Next of Kin / Surrogate Decision Maker is [phone], [phone] Advance Directive: Patient would like information Information Provided on Healthcare Directives: No Patient Requests Assistance: Yes, referral made to realtime court reporter Insurance provider confirmed from chart: Yes and was correct Confirmed PCP: Jj Eason MD Yes and was correct Confirmed Pharmacy: Yes and was correct [facility] [address] [id number] Would the patient like to use [facility] at discharge? ([id number]): Yes Readmission Assessment Completed?: No, patient does not meet readmission criteria Risk of unplanned readmission: low SIOH Flowsheet Completed?: Yes, no needs at this time Medication Affordability : No concerns related to payment for meds Living Situation at Admission Address confirmed from chart: Yes and was correct Living Arrangements: Alone Type of Residence: Private residence Steps to enter home: Ramp Steps within home: ramp- from living room to kitchen Patient's baseline at time of admission: Home Independent (Alone) Support Systems: Friends Assistive Devices: Toilet riser, Cane, Walker (DME provider is: N/A) Current Homecare Services: None Community Avionics Systems Engineer: None Outside Services: Outpatient PT Past Services: None or N/A Has the patient served in the [employer]?: No, they did not serve in any branch of the . Discharge Needs Initial Transition Plan: [facility] Facility Back up Transition plan: Home Health Care DME Needs: Other (comment) (no new needs identified) Informed Choice Given? : Yes (patient provided SNF choice- [facility] in [place], [place]) Barriers to Discharge Plan: Other (Comment) (SNF acceptance/precert) CM Sticky Note: JEANNE: 01/18/2025 Primary D/C Plan: SNF- [facility] in [place], [place] Next Steps: SNF acceptance/precert- Decision maker: Patient Pre-cert Needed: Yes: Not yet started Transport @ d/c: Meghan Needed for d/c recommendations: PT Case Management Narrative CM into see patient, introduced self and role. Patient whiteboard updated. S/P right total hip patient of Dr. Varma. Home address, PCP, insurance and preferred pharmacy reviewed. SIOH completed. Home assessment completed. Patient lives alone in a 1 story home, ramp to enter. Patient reports rampinside between living room and kitchen. Bathroom: tub shower, shower chair/bench, safety bars and toilet seat with riser. DME reviewed, no new needs identified. Plan: patient requests SNF at discharge for additional rehab to promote safety prior to returning home alone. Facility choice: [facility] in [place], [place]. He plans friend, Meghan, to provide discharge transportation. CM discussed insurance authorization process for SNF with patient, he verbalizes understanding. Home with HHPT would serveas his back up plan. All questions/concerns addressed. CM will follow. Time Spent (minutes): 15 minutes * Emili Quigley RN - 01/17/2025 8:54 AM EDT MDR summary for patient Multi-Disciplinary Rounding was completed on this patient with the following participants: []Patient [x]Family/Friend/Caregiver [x]Physician [x]Charge Nurse [x]Primary Nurse [x]Pharmacy [x]Case Management [x]Physical Therapy [x]M2B [x]Supervisor Coffee Physician Reason for admission: RTH Patient arrived to unit from: []ED []Another inpatient unit Unit: []Direct Admit []Other: Patient still requiring: []Further workup []Monitoring []IV Antibiotics []Diuretics []Pain control []Lab/tests []Therapy Evaluation []Diet toleration []Consult: []Medically Clear []Other: Estimated Date of discharge: []Today []Today pending workup []Tomorrow []Early Discharge Rounds []Placed in Early d/c epic list []1-2 days []2-3 days []3+ days Nursing Any Nursing Concerns/Needs? []Yes: []No How does the patient ambulate at home? []Independent []Cane []Walker []Wheelchair []Other: VTE Prophylaxis? []Yes []SCD/SUGAR HOSE []On []Off []PT Refusing []Chemical Prophylaxis []Yes []No []No - Why?? Does the patient have any active LDAs? []Yes []Central Line []Remove []Keep []Keep at D/C []Rodriguez []Remove []Keep []Keep at D/C []Drain []Remove []Keep []Keep at D/C []No Case Management Patient's Living Situation: []Home []Lives alone []Lives with Support []Home health care []Inpatient Rehab []half-way facility []halfway care []Other: Discharge Destination: []Home with []No Needs []Home health care []Inpatient Rehab []half-way facility []halfway care []Pending evaluation []TBD []Other: Facility info []List Provided []Referrals sent []Awaiting acceptance []Awaiting bed availability []Precert []No Precert []Covid Swab []Covid Booster []Covid positive waiting Patient will be transported home by: []Self []Family/Friend []Cab []Other []Transport and will require []O2 []Drips []Other needs: []TBD Does the patient need any services arranged? []Yes []Dialysis []Infusion []Wound care []Outpatient rehab []Other: []No []TBD Pharmacy Disposition Plan Home today * Vladimir Disla MD - 01/17/2025 6:18 AM EDT [facility] Progress Note Assessment and Plan POD # 1 s/p R JERRELL - Pain control - WBAT, ROM as tolerated - PT/OT - DVT ppx - Xarelto 10 mg daily x 2 weeks, followed by ASA 81mg BID x 4 weeks - Medical co-management per [facility] - OK to d/c to home when passes PT and cleared by [facility] - Follow-up with Dr. Varma in 2 weeks Subjective Patient did well overnight, mobilized with PT, tolerating diet. pain and nausea well controlled. Objective Vitals: 01/17/25 0523 BP: Pulse: Resp: Temp: SpO2: 93% Right Extremity Exam: Dressing appears clean dry and intact Prevena vac There is minmal drainage There is appropriate post operative swelling and tenderness around the incision Extremity is neurovascularly intact distally * Abby Velasquez RN - 01/17/2025 6:05 AM EDT CM rounded with Dr. Varma, Dr. Disla and CARLINE Garrett. Patient tolerating oxycodone for pain. Anticoagulant: xarelto 10mg QD. PT progress reviewed. No incisional issues noted. Prevena in place- follow up in office in 1 week for removal. Plan: Home HH vs SNF depending on progression with PT. CM will follow. * Paolo Cantu RN - 01/16/2025 11:41 PM EDT Goals: Identify possible barriers to meeting goals/advancing plan of care: prep Stability of the patient: Moderately Stable - Low risk of patient condition declining or worsening End of Shift Summary: 01/16/25 * Nicole Villarreal, PT - 01/16/2025 4:55 PM EDT [facility] Physical Therapy Evaluation Multidisciplinary Rounding Report PT Discharge Recommendations: Home PT Distance Ambulated (ft): 30 Device: Rolling walker Orthopedic Precautions: No Hip Precautions RLE Weight Bearing Status: As Tolerated Strength RLE R Ankle Dorsiflexion: 5/5 R Ankle Plantar Flexion: 5/5 Strength LLE L Ankle Dorsiflexion: 5/5 L Ankle Plantar Flexion: 5/5 AM-PAC: * Maria Luisa Varma MD - Primary Procedure(s): Right total hip arthroplasty, DL Day of Surgery Fall prevention education provided including use of call light in hospital, use of appropriate assistive device, safe mobility techniques, and safety measures at home. Continue PT as per POC. Pt supine upon arrival. Pt initially fearful to be OOB with PT. Pt/friend at bedside during sessionand requesting possible d/c to SNF as pt lives alone. PT educated regarding benefits of d/c home and OP surgery and pt requesting HHPT if d/c home. Pt surgery on R LE and unable to drive. Pt states was walking from chair/bed to toilet only due to hip with B canes prior to surgery. Hx of L JERRELL with + results per pt with heterotrophic bone ossification noted on xray. Pt mobility per flow sheet [id number] with steady non-reciprical gait pattern. Pt advised to be up with staff to toilet tonight for greatest progress with mobility. Attempted void while up with PT, + scant void in urinal. Nursing updat ed.Pt lives in one level home with ramp to enter and ramp to go up 2 steps within the home. Subjective Patient Active Problem List Diagnosis Heterotopic ossification Unilateral primary osteoarthritis, right hip Past Medical History: Past Surgical History: Past Medical History: Diagnosis Date Anxiety Arthritis Bipolar disorder (CMS/HCC V24, CMS/HCC V28) Chronic back pain Depression Heterotopic ossification of joint left hip HTN (hypertension) Hyperlipidemia Left sided heart thickening Sleep apnea Wears glasses Past Surgical History: Procedure Laterality Date HIP ARTHROPLASTY Left KNEE ARTHROSCOPY Bilateral ORIF ANKLE FRACTURE Right ROTATOR CUFF REPAIR Left SHOULDER ARTHROSCOPY Left Objective 01/16/25 1655 General Family/Caregiver Present Yes (friend) PT Time Calculation PT Start Time 1655 PT Stop Time 1740 PT Time Calculation (min) 45 min Precautions Medical Precautions Fall Risk Safety Interventions Call schaffer within reach;Gait belt RLE Weight Bearing Status As Tolerated Orthopedic Precautions No Hip Precautions Pain Assessment Pain Assessment 0-10 Pain Score 4 Pain Type Surgical pain Pain Location Hip Pain Orientation Right Pain Radiating Towards Low Back _ Chronic Pain Interventions Cold applied;Repositioned;Ambulation/increased activity Cognition Overall Cognitive Status WFL Arousal/Alertness Appropriate responses to stimuli Orientation Level Oriented X4 Cognition Comments Pleasant, talkative, Home Living Type of Home House Lives With Alone Home Adaptive Equipment Walker - rolling Home Living Comments basement (but pt doesn't use) Home Layout One level (ramp inside home up 2 steps) Home Access Ramped entrance Prior Function Level of [place] Independent with mobility and functional transfers Ambulation Status Household ambulator Receives Help From Family;Friends;Other (Comment) (home delivery groceries/prescriptions) Indoor Mobility Assistance Needed Some Help (used 2 canes) Stairs Assistance Not Applicable Prior Device Use Cane (x2) 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) Prior Function Comments Pt states was only walking in doors due to hip dysfunction Static Sitting Balance Static Sitting-Level of Assistance Standby assistance;Minimal verbal cues Dynamic Sitting Balance Dynamic Sitting-Level of Assistance Standby assistance;Minimal verbal cues Dynamic Sitting-Balance Support Right upper extremity supported;Left upper extremity supported Dynamic Sitting-Comments FWW Static Standing Balance Static Standing-Level of Assistance Contact guard;Minimal verbal cues Static Standing-Comment/Number of Minutes FWW Dynamic Standing Balance Dynamic Standing-Level of Assistance Contact guard;Minimum assistance;Moderate verbal cues Dynamic Standing-Balance Support Right upper extremity supported;Left upper extremity supported Dynamic Standing-Comments FWW Bed Mobility Sitting to Lying Assistance Contact guard;Moderate verbal cues Sitting to Lying Deficit Assist lifting right leg onto bed Lying to Sitting Assistance Contact guard;Moderate verbal cues Lying to Sitting Deficit Assist lifting right leg off of bed Bed Mobility Comments OOB to R Transfers Sit to Stand Assistance Contact guard;Minimum assistance;Minimal verbal cues Sit to Stand Deficit Verbal cueing;Supervision/safety awareness Transfer Comments bed elevated to assist with sit to stand Ambulation Walking Assistance Contact guard;Moderate verbal cues Walking Deficit Supervision/safety awareness;Increased time to complete;Verbal cueing Device Rolling walker Distance Ambulated (ft) 30 Comments steady, heavy use of UE's on AD RLE Assessment RLE Assessment Additional Yes Strength RLE R Ankle Dorsiflexion 5/5 R Ankle Plantar Flexion 5/5 LLE Assessment LLE Assessment Additional Yes Strength LLE L Ankle Dorsiflexion 5/5 L Ankle Plantar Flexion 5/5 PT Assessment PT Assessment Results Decreased strength;Impaired gait;Decreased mobility;Pain Prognosis Excellent Evaluation/Treatment Tolerance Patient tolerated treatment well Comments scant void in urinal while up with PT, Discuused home d/c with pt and friend (requesting HHPT due to lives alone) Medical Staff Made Aware Yes Comments Yessi RN, Dulce, MST Plan Treatment/Interventions Functional transfer training;LE strengthening/ROM;Patient/family training;Bed mobility;Gait training PT Plan Skilled PT PT Frequency 7 days per week PT Duration of Sessions PRN PT Treatments per day 1-2 times per day PT Discharge Recommendations Home PT Equipment Recommended Walker - rolling Barriers to Discharge Fear PT - Evaluation Status Complete PT Evaluation Time Entry PT Evaluation (Low) Time Entry 15 Treatment performed during evaluation: Gait Training Gait Training Time Entry: 10 Gait Training Activity 1: Gait training with FWW [id number] Gait Training Activity 2: FWW education Therapeutic Activity Therapeutic Activity Time Entry: 20 Therapeutic Activity 1: B LE VRE, HEP handout left at bedside Therapeutic Activity 2: Bed mobility and transfer training Therapeutic Activity 3: Standing prolonged use of urinal at EOB Therapeutic Activity 4: Ice pack issued to R hip Therapeutic Activity 5: Locked bed control as pt with desire to elevate LE due to LBP chronic Goals and Education Goals: Education: Encounter Problems Encounter Problems (Active) Template: Physical Therapy Problem: PT Short Term Goals Dates: Start: 01/16/25 Goal: Pt will perform bed mobility with CGA. Dates: Start: 01/16/25 Expected End: 01/17/25 Outcomes Date/Time User Outcome 01/16/25 175 Nicole Villarreal PT Progressing Goal: Pt will transfer with SBA. Dates: Start: 01/16/25 Expected End: 01/17/25 Outcomes Date/Time User Outcome 01/16/251755 Nicole Villarreal PT Progressing Goal: Pt will ambulate 100 ft. with wheeled walker and SBA Dates: Start: 01/16/25 Expected End: 01/17/25 Outcomes Date/Time User Outcome 01/16/25 175 Nicole Villarreal PT Progressing Goal: Pt will demo good understanding of HEP protocol Dates: Start: 01/16/25 Expected End: 01/17/25 Outcomes Date/Time User Outcome 01/16/251755 Nicole Villarreal PT Progressing Encounter Problems (Resolved) There are no resolved problems. Education Documentation Home Exercise Program, taught by Nicole Villarreal PT at 01/16/2025 4:55 PM. Learner: Patient Readiness: Acceptance Method: Explanation, Demonstration, Handout Response: Verbalizes Understanding, Demonstrated Understanding, Indicates Understanding in Bedside Comment: B LE VRE, HEP handout, bed/mobility and transfer training, gait and FWW education, icing Mobility Training, taught by Nicole Villarreal PT at 01/16/2025 4:55 PM. Learner: Patient Readiness: Acceptance Method: Explanation, Demonstration, Handout Response: Verbalizes Understanding, Demonstrated Understanding, Indicates Understanding in Bedside Comment: B LE VRE, HEP handout, bed/mobility and transfer training, gait and FWW education, icing Education Comments No comments found. * Miri Drerup, RN - 01/16/2025 2:03 PM EDT Applied at the end of the procedure documented in this encounterSurgical [facility] [id number] Hospital course Narrative* Abby Velasquez RN - 01/17/2025 7:03 AM EDT Surgeon' discharge instructions are in patient's folder- FOLLOW SURGEON INSTRUCTION SHEETS Contact Surgeon's office with any questions/concerns [phone] -Plasma Flow SCD'S Compression leg pumps on Bilateral Legs for 20 hours per day x 2 weeks for additional DVT prevention- SEE SURGEONS INSTRUCTION SHEETS FOR DIRECTIONS -Maintain the Prevena incisional wound vac . Prevena patient care guide provided- Prevena Wound Vaclifespan alarms about 7 days from surgery and the battery will fail. Call office to schedule a 1 week follow up appointment for prevena removal -Use over the counter stool softeners to prevent constipation * Liyah Duggan RN - 01/10/2025 2:26 PM EDT Pre-Surgery Instructions: Medication Instructions amLODIPine (NORVASC) 5 mg tablet Take morning of surgery with sip of water, no other fluids buPROPion SR (WELLBUTRIN SR) 150 mg 12 hr tablet Take morning of surgery with sip of water, no other fluids carvediloL (COREG) 6.25 mg tablet Take morning of surgery with sip of water, no other fluids celecoxib (CeleBREX) 100 mg capsule Continue taking until night before surgery DULoxetine (CYMBALTA) [address] capsule Continue taking until night before surgery ezetimibe (ZETIA) 10 mg tablet Continue taking until night before surgery furosemide (LASIX) 40 mg tablet Continue taking until night before surgery hydroCHLOROthiazide (HYDRODIURIL) 50 mg tablet Continue taking until night before surgery lamoTRIgine (LaMICtal) 200 mg tablet Continue taking until night before surgery ramipriL (ALTACE) 10 mg capsule Continue taking until night before surgery cholecalciferol, vitamin D3, (VITAMIN D3 ORAL) Continue taking until night before surgery hydrocodone/acetaminophen (NORCO ORAL) Continue taking until night before surgery multivit-mins no.63/iron/folic (M-VIT ORAL) Continue taking until night before surgery perphenazine 8 mg tablet Continue taking until night before surgery Vitamin C tablet Other (see Additional Instructions)last dose 01/08/25 Additional Instructions: Medication instructions provided to patient as noted above per provider instructions indicated on PAT H&P, surgeon instruction, specialist note, and/or anesthesia medication guideline instructions. Instructions provided to patient to prepare for surgery: Increase water intake day PRIOR to surgery. Eat light meals or follow surgeon specific food instructions day PRIOR to surgery. At Midnight, nothing is allowed in your mouth. NO food, water, gum, candy, coffee, mints, tobacco, NOTHING AFTER MIDNIGHT. When you wake up, brush your teeth and use mouthwash. Don't swallow. Take small sip of water with meds that are to be taken DOS. Shower night prior and morning of surgery with antibiotic cleanser OR Dial antibacterial soap (as designated by surgeon). No lotions, creams, powders on your skin. You may wear deodorant (unless surgery is on your shoulder or breast(s)). No shaving surgical site within 48 hours of surgery. Remove all jewelry and piercings and leave that at home. Leave all valuables at home. Wear loose fitting clothes. Bring photo ID, medical insurance card, and copay as needed when you check in for surgery. In addition, bring any of the following that may apply: CPAP, a COPY of living will, medical POA, glasses, case, hearing aid container, shoulder sling, back brace, walker, cervical collar. Leave walker &/or cane and overnight bag in the car until after your procedure when you are assigned a room (unless needed prior to surgery). Surgical times are subject to change up until 5:30pm the evening prior to your surgery. Check in at senior receptionist desk at [address] [place] [address]. If Outpatient, these additional instructions apply: An adult must stay with you the whole time you are in the hospital and drive you home. An adult must stay with you at home for 24 hours after receiving anesthesia. documented in this encounterSurgical [facility]ty Center At Coord[facility] [id number] Consult note* Bubba JohanDO - 01/16/2025 4:17 PM EDTAssociated Order(s): IP CONSULT TO HOSPITALIST Images from the original note were not included. Bubba Prado DO [facility] Hospitalists Medical Consultation Patient Name: Meliza Eastman : 1965 Admit Date: [id number] Physicians: Jj Eason MD (Family); No ref. provider found (Referring) Perpetual Assessment: Meliza Eastman is a 59 y.o. male with history of anxiety, depression, bipolar, who presented to [facility] for orthopedic procedure. He is status post right total hip arthroplasty on January 16. [facility] is consulted for medical management. Assessment and Plan Right hip primary osteoarthritis Status post right total hip arthroplasty performed by orthopedics on December 27 - Defer postoperative management including DVT prophylaxis and pain control to the orthopedic team.Patient has been started on Xarelto 2 mg for prophylaxis by the surgical team. Hypertension, essential Blood pressure is elevated this time, possibly due to pain and anxiety. Resuming selective blood pressure medications, can to follow and adjust accordingly. Depression Anxiety Bipolar Continue majority of home medications. No acute issues at this time Hypercholesterolemia Continue home medications. Chronic pain Described to have chronic back and neck pain. Continue current pain control Obstructive sleep apnea Patient states he does not tolerate CPAP and would not use it. Would prefer to have head of bed elevated and continuous pulse ox. Would recommend that he follow-up with his PCP in outpatient setting to consider repeat sleep study and ongoing titration to his CPAP, or determine other methods of treating his sleep apnea Medication Reconciliation: Reviewed DVT Prophylaxis: Deferred to Primary Service Code Status: Full code Expected Date of Discharge: Defer to the orthopedic surgery team Discharge Planning: We will continue to follow with you. Thank you for the consult. History Reason For Consult: Medical management HPI and ROS: Meliza Eastman is a 59 y.o. male with history of anxiety, depression, bipolar, who presented to [facility] for orthopedic procedure. He is status post right total hip arthroplasty on January 16. [facility] is consulted for medical management. He is evaluated in the postoperative setting. He is laying in bed at this time. Appears to be in no apparent distress. He states thatearlier he had pain in his hip as well as some chest pain, this has resolved. Denies any shortness of breath. No other issues at this moment. Denies any known cardiac history, has not had a heart attack, no stents. He believes that he had a stress test within the last 5 years that was negative. Denies any tobacco, alcohol, or other drug use. It does appear that he has a history of sleep apnea andis with use of CPAP, he does not tolerate it at home. He states that he sleeps in a recliner with his head elevated. PMH/PSH/SH/FH: Past Medical History: Diagnosis Date Anxiety Arthritis Bipolar disorder ([facility] V24, [facility] V28) Chronic back pain Depression Heterotopic ossification of joint left hip HTN (hypertension) Hyperlipidemia Left sided heart thickening Sleep apnea Wears glasses Past Surgical History: Procedure Laterality Date HIP ARTHROPLASTY Left KNEE ARTHROSCOPY Bilateral ORIF ANKLE FRACTURE Right ROTATOR CUFF REPAIR Left SHOULDER ARTHROSCOPY Left Family History Problem Relation Name Age of Onset Breast cancer Mother Colon cancer Father Social History Socioeconomic History Marital status: Spouse name: Not on file Number of children: Not on file Years of education: Not on file Highest education level: Not on file Occupational History Occupation: On Disability Tobacco Use Smoking status: Never Smokeless tobacco: Never Vaping Use Vaping status: Never Used Substance and Sexual Activity Alcohol use: Never Drug use: Never Sexual activity: Not on file Other Topics Concern Not on file Social History Narrative Not on file Allergy Information: I have reviewed the patient's allergies. Tolmetin, Meloxicam, Penicillin, and Rosuvastatin Home Medications: Prior to Admission medications Medication Sig Start Date End Date Taking? Authorizing Provider acetaminophen (TYLENOL) 500 mg capsule Take 2 capsules (1,000 mg total) by mouth every 6 (six) hours if needed for mild pain. Taking twice daily Yes Historical Provider, amLODIPine (NORVASC) 2.5 mg tablet Take 1 tablet (2.5 mg total) by mouth at bedtime. 12/25/24 Yes Historical Provider, buPROPion SR (WELLBUTRIN SR) 150 mg 12 hr tablet Take 1 tablet (150 mg total) by mouth 2 (two) times a day. 12/09/24 Yes Historical Provider, carvediloL (COREG) 12.5 mg tablet Take 1 tablet (12.5 mg total) by mouth 2 (two) times a day. 03/16/20 07/01/25 Yes Historical Provider, celecoxib (CeleBREX) 100 mg capsule Take 1 capsule (100 mg total) by mouth 2 (two) times a day. 12/13/24 Yes Historical Provider, cholecalciferol, vitamin D3, (VITAMIN D3 ORAL) Take 1 tablet by mouth 1 (one) time each day. Yes Historical Provider, DULoxetine (CYMBALTA) [address] capsule Take 1 capsule (60 mg total) by mouth 1 (one) time each day.12/15/24 Yes Historical Provider, ezetimibe (ZETIA) 10 mg tablet Take 1 tablet (10 mg total) by mouth 1 (one) time each day. 12/23/24 Yes Historical Provider, furosemide (LASIX) 40 mg tablet Take 1 tablet (40 mg total) by mouth 1 (one) time each day. 10/04/24Yes Historical Provider, hydroCHLOROthiazide (HYDRODIURIL) 50 mg tablet Take 1 tablet (50 mg total) by mouth 1 (one) time each day. 12/23/24 Yes Historical Provider, HYDROcodone-acetaminophen (NORCO) 7.5-325 mg per tablet Take 1 tablet by mouth 3 (three) times a day if needed. for pain 12/29/24 Yes Historical Provider, lamoTRIgine (LaMICtal) 200 mg tablet Take 2 tablets (400 mg total) by mouth at bedtime. 11/22/24 YesHistorical Provider, metFORMIN (GLUCOPHAGE) 500 mg tablet Take 1 tablet (500 mg total) by mouth 2 (two) times a day. 11/08/24 Yes Historical Provider, multivit-mins no.63/iron/folic (M-VIT ORAL) Take 1 tablet by mouth 1 (one) time each day. Yes Historical Provider, omeprazole (PriLOSEC) [address] capsule Take 1 capsule (40 mg total) by mouth 1 (one) time each day.12/05/24 Yes Historical Provider, perphenazine 8 mg tablet Take 1 tablet (8 mg total) by mouth 1 (one) time each day. Yes Historical Provider, ramipriL (ALTACE) 10 mg capsule Take 1 capsule (10 mg total) by mouth 2 (two) times a day. 11/13/24 Yes Historical Provider, MD Jayjay Camacho 140 mg/mL pen injector injection Inject 1 mL (140 mg total) under the skin every 14 (fourteen) days. 01/05/25 Yes Historical Provider, tamsulosin (FLOMAX) 0.4 mg 24 hr capsule Take 1 capsule (0.4 mg total) by mouth 1 (one) time each day. 04/08/24 07/01/25 Yes Historical Provider, amLODIPine (NORVASC) 5 mg tablet Take 1 tablet (5 mg total) by mouth at bedtime. 12/23/24 01/11/25 Yes Historical Provider, carvediloL (COREG) 6.25 mg tablet Take 1 tablet (6.25 mg total) by mouth 2 (two) times a day. 03/21/24 01/11/25 Yes Historical Provider, acetaminophen (TYLENOL) 500 mg tablet Take 2 tablets (1,000 mg total) by mouth 3 (three) times a day for 7 days. Do not exceed 3,000 mg daily limit. 01/16/25 01/23/25 Vladimir Disla MD aspirin 81 mg chewable tablet Chew 1 tablet (81 mg total) 2 (two) times a day for 4 weeks. Begin after finishing Xarelto prescription 01/17/25 02/28/25 Vladimir Disla MD oxyCODONE (ROXICODONE) 5 mg immediate release tablet Take 1-2 tablets (5-10 mg total) by mouth every 4 (four) hours if needed for moderate pain or severe pain for up to 7 days. Max Daily Amount: 60 mg 01/16/25 01/23/25 Vladimir Disla MD polyethylene glycol (MIRALAX) 17 gram packet Take 17 g by mouth if needed for constipation. Historical Provider, enoxaparin (LOVENOX) 40 mg/0.4 mL syringe Inject 0.4 mL (40 mg total) under the skin 1 (one) time each day for 14 days. 01/16/25 01/30/25 Vladimir Disla MD traMADoL (ULTRAM) 50 mg tablet Take 1-2 tablets (50-100 mg total) by mouth every 6 (six) hours if needed for moderate pain for up to 7 days. Max Daily Amount: 400 mg 01/16/25 01/23/25 Vladimir Disla MD Vitamin C tablet Take 1 tablet (100 mg total) by mouth 1 (one) time each day. Historical ProviderMD hydrocodone/acetaminophen (NORCO ORAL) Take 7.5 mg by mouth 3 (three) times a day. Max Daily Amount: 22.5 mg 01/11/25 Historical Provider, Physical Examination Vital Signs: Temp: 37 C (98.6 F) (01/16 151) Heart Rate: 66 (01/16 154) Resp: 11 (01/16 154) BP: 153/91 (01/16 154) GENERAL: Awake, nontoxic-appearing, laying in bed, appears comfortable, no apparent distress CV: Regular rate and rhythm RESP: Clear to auscultation bilaterally, breathing comfortably, no respiratory distress GI: Soft, non-tender nondistended NEURO: Alert, Ox3. Hip range of motion is limited due to recent surgery. Otherwise nonfocal exam Reviewed 01/16/25 4:17 PM EDT: MDM: Moderate. Patient requires hospitalization due to postoperative medical management and monitoring [facility] [id number] Consult note* Bubba Prado DO - 01/16/2025 4:17 PM EDT Associated Order(s): IP CONSULT TO HOSPITALIST Images from the original note were not included. Bubba Prado DO [facility] Hospital[facility] Medical Consultation Patient Name: Meliza Eastman : 1965 Admit Date: [id number] Physicians: Jj Eason MD (Family); No ref. provider found (Referring) Perpetual Assessment: Meliza Eastman is a 59 y.o. male with history of anxiety, depression, bipolar, who presented to [facility] for orthopedic procedure. He is status post right total hip arthroplasty on January 16. [facility] is consulted for medical management. Assessment and Plan Right hip primary osteoarthritis Status post right total hip arthroplasty performed by orthopedics on December 27 - Defer postoperative management including DVT prophylaxis and pain control to the orthopedic team.Patient has been started on Xarelto 2 mg for prophylaxis by the surgical team. Hypertension, essential Blood pressure is elevated this time, possibly due to pain and anxiety. Resuming selective blood pressure medications, can to follow and adjust accordingly. Depression Anxiety Bipolar Continue majority of home medications. No acute issues at this time Hypercholesterolemia Continue home medications. Chronic pain Described to have chronic back and neck pain. Continue current pain control Obstructive sleep apnea Patient states he does not tolerate CPAP and would not use it. Would prefer to have head of bed elevated and continuous pulse ox. Would recommend that he follow-up with his PCP in outpatient setting to consider repeat sleep study and ongoing titration to his CPAP, or determine other methods of treating his sleep apnea Medication Reconciliation: Reviewed DVT Prophylaxis: Deferred to Primary Service Code Status: Full code Expected Date of Discharge: Defer to the orthopedic surgery team Discharge Planning: We will continue to follow with you. Thank you for the consult. History Reason For Consult: Medical management HPI and ROS: Meliza Eastman is a 59 y.o. male with history of anxiety, depression, bipolar, who presented to [facility] for orthopedic procedure. He is status post right total hip arthroplasty on January 16. [facility] He is evaluated in the postoperative setting. He is laying in bed at this time. Appears to be in no apparent distress. He states thatearlier he had pain in his hip as well as some chest pain, this has resolved. Denies any shortness of breath. No other issues at this moment. Denies any known cardiac history, has not had a heart attack, no stents. He believes that he had a stress test within the last 5 years that was negative. Denies any tobacco, alcohol, or other drug use. It does appear that he has a history of sleep apnea andis with use of CPAP, he does not tolerate it at home. He states that he sleeps in a recliner with his head elevated. PMH/PSH/SH/FH: Past Medical History: Diagnosis Date Anxiety Arthritis Bipolar disorder ([facility] V24, [facility] V28) Chronic back pain Depression Heterotopic ossification of joint left hip HTN (hypertension) Hyperlipidemia Left sided heart thickening Sleep apnea Wears glasses Past Surgical History: Procedure Laterality Date HIP ARTHROPLASTY Left KNEE ARTHROSCOPY Bilateral ORIF ANKLE FRACTURE Right ROTATOR CUFF REPAIR Left SHOULDER ARTHROSCOPY Left Family History Problem Relation Name Age of Onset Breast cancer Mother Colon cancer Father Social History Socioeconomic History Marital status: Spouse name: Not on file Number of children: Not on file Years of education: Not on file Highest education level: Not on file Occupational History Occupation: On Disability Tobacco Use Smoking status: Never Smokeless tobacco: Never Vaping Use Vaping status: Never Used Substance and Sexual Activity Alcohol use: Never Drug use: Never Sexual activity: Not on file Other Topics Concern Not on file Social History Narrative Not on file Allergy Information: I have reviewed the patient's allergies. Tolmetin, Meloxicam, Penicillin, and Rosuvastatin Home Medications: Prior to Admission medications Medication Sig Start Date End Date Taking? Authorizing Provider acetaminophen (TYLENOL) 500 mg capsule Take 2 capsules (1,000 mg total) by mouth every 6 (six) hours if needed for mild pain. Taking twice daily Yes Historical Provider, amLODIPine (NORVASC) 2.5 mg tablet Take 1 tablet (2.5 mg total) by mouth at bedtime. 12/25/24 Yes Historical Provider, buPROPion SR (WELLBUTRIN SR) 150 mg 12 hr tablet Take 1 tablet (150 mg total) by mouth 2 (two) times a day. 12/09/24 Yes Historical Provider, carvediloL (COREG) 12.5 mg tablet Take 1 tablet (12.5 mg total) by mouth 2 (two) times a day. 03/16/20 07/01/25 Yes Historical Provider, celecoxib (CeleBREX) 100 mg capsule Take 1 capsule (100 mg total) by mouth 2 (two) times a day. 12/13/24 Yes Historical Provider, cholecalciferol, vitamin D3, (VITAMIN D3 ORAL) Take 1 tablet by mouth 1 (one) time each day. Yes Historical Provider, DULoxetine (CYMBALTA) [address] capsule Take 1 capsule (60 mg total) by mouth 1 (one) time each day.12/15/24 Yes Historical Provider, ezetimibe (ZETIA) 10 mg tablet Take 1 tablet (10 mg total) by mouth 1 (one) time each day. 12/23/24 Yes Historical Provider, furosemide (LASIX) 40 mg tablet Take 1 tablet (40 mg total) by mouth 1 (one) time each day. 10/04/24Yes Historical Provider, hydroCHLOROthiazide (HYDRODIURIL) 50 mg tablet Take 1 tablet (50 mg total) by mouth 1 (one) time each day. 12/23/24 Yes Historical Provider, HYDROcodone-acetaminophen (NORCO) 7.5-325 mg per tablet Take 1 tablet by mouth 3 (three) times a day if needed. for pain 12/29/24 Yes Historical Provider, lamoTRIgine (LaMICtal) 200 mg tablet Take 2 tablets (400 mg total) by mouth at bedtime. 11/22/24 YesHistorical Provider, metFORMIN (GLUCOPHAGE) 500 mg tablet Take 1 tablet (500 mg total) by mouth 2 (two) times a day. 11/08/24 Yes Historical Provider, multivit-mins no.63/iron/folic (M-VIT ORAL) Take 1 tablet by mouth 1 (one) time each day. Yes Historical Provider, omeprazole (PriLOSEC) [address] capsule Take 1 capsule (40 mg total) by mouth 1 (one) time each day.12/05/24 Yes Historical Provider, perphenazine 8 mg tablet Take 1 tablet (8 mg total) by mouth 1 (one) time each day. Yes Historical Provider, ramipriL (ALTACE) 10 mg capsule Take 1 capsule (10 mg total) by mouth 2 (two) times a day. 11/13/24 Yes Historical Provider, MD Jayjay Camacho 140 mg/mL pen injector injection Inject 1 mL (140 mg total) under the skin every 14 (fourteen) days. 01/05/25 Yes Historical Provider, tamsulosin (FLOMAX) 0.4 mg 24 hr capsule Take 1 capsule (0.4 mg total) by mouth 1 (one) time each day. 04/08/24 07/01/25 Yes Historical Provider, amLODIPine (NORVASC) 5 mg tablet Take 1 tablet (5 mg total) by mouth at bedtime. 12/23/24 01/11/25 Yes Historical Provider, carvediloL (COREG) 6.25 mg tablet Take 1 tablet (6.25 mg total) by mouth 2 (two) times a day. 03/21/24 01/11/25 Yes Historical Provider, acetaminophen (TYLENOL) 500 mg tablet Take 2 tablets (1,000 mg total) by mouth 3 (three) times a day for 7 days. Do not exceed 3,000 mg daily limit. 01/16/25 01/23/25 Vladimir Disla MD aspirin 81 mg chewable tablet Chew 1 tablet (81 mg total) 2 (two) times a day for 4 weeks. Begin after finishing Xarelto prescription 01/17/25 02/28/25 Vladimir Disla MD oxyCODONE (ROXICODONE) 5 mg immediate release tablet Take 1-2 tablets (5-10 mg total) by mouth every 4 (four) hours if needed for moderate pain or severe pain for up to 7 days. Max Daily Amount: 60 mg 01/16/25 01/23/25 Vladimir Disla MD polyethylene glycol (MIRALAX) 17 gram packet Take 17 g by mouth if needed for constipation. Historical Provider, enoxaparin (LOVENOX) 40 mg/0.4 mL syringe Inject 0.4 mL (40 mg total) under the skin 1 (one) time each day for 14 days. 01/16/25 01/30/25 Vladimir Disla MD traMADoL (ULTRAM) 50 mg tablet Take 1-2 tablets (50-100 mg total) by mouth every 6 (six) hours if needed for moderate pain for up to 7 days. Max Daily Amount: 400 mg 01/16/25 01/23/25 Vladimir Disla MD Vitamin C tablet Take 1 tablet (100 mg total) by mouth 1 (one) time each day. Historical Provider, hydrocodone/acetaminophen (NORCO ORAL) Take 7.5 mg by mouth 3 (three) times a day. Max Daily Amount: 22.5 mg 01/11/25 Historical Provider, Physical Examination Vital Signs: Temp: 37 C (98.6 F) (01/16 1515) Heart Rate: 66 (01/16 1545) Resp: 11 (01/16 1545) BP: 153/91 (01/16 1545) GENERAL: Awake, nontoxic-appearing, laying in bed, appears comfortable, no apparent distress CV: Regular rate and rhythm RESP: Clear to auscultation bilaterally, breathing comfortably, no respiratory distress GI: Soft, non-tender nondistended NEURO: Alert, Ox3. Hip range of motion is limited due to recent surgery. Otherwise nonfocal exam Reviewed 01/16/25 4:17 PM EDT: MDM: Moderate. Patient requires hospitalization due to postoperative medical management and monitoring documented in this encounterSurgical [facility] [id number] Procedure note* Maria Luisa Varma MD - 01/16/2025 1:22 PM EDT [External] Meliza Eastman 1965 [email or web address] Maria Luisa Varma CYBERSECURITY WARNING: This email is sent from outside of [facility]. DO NOT click on links, open attachments or share confidential information unless you know the sender and the email was expected. Please report any suspicious emails using the Report Phishing button. [facility], A Member of [facility] OPERATIVE REPORT PATIENT NAME: Meliza Eastman DATE OF : 1965 CSN: [id number] SURGEON: Maria Luisa Varma MD, FACS DATE OF SERVICE: 01/16/2025 DATE OF SURGERY: 01/16/2025 PREOPERATIVE DIAGNOSIS: OA right hip (M16.11) Morbid Obesity (E66.01) POSTOPERATIVE DIAGNOSIS: OA right hip (M16.11) Morbid Obesity (E66.01) PROCEDURE: Primary Right Total Hip Arthroplasty utilizing the direct lateral approach (56165-50) Femoral Component: Indra Biomet Z1 Collared , Non Cemented H/O Core Stem , Size: 7 Acetabular Component: G7 4 Hole Finned Acetabular Shell , 60mm Liner: G7 Vivacit-E Neutral, G, 40mm Screws: None Head Neck Unit: Indra Biomet Ceramic Taper , 40mm , 0 ATTENDINGSURGEON: Maria Luisa Varma MD, FACS MATERIALS BUYER: Jagdeep Keller PA-C INDICATIONS: Patient is a 59-year-old Male. History and physical has been reviewed and there have been no changes in the patient's condition. The patient has failed previous conservative treatment. Due to the nature of the patient's persistent symptoms, surgery is recommended. The alternatives, risks and benefits of surgery were discussed with the patient. The patient verbalized their understanding of the risks as well as the alternatives to surgery. The patient wished to proceed with the operative intervention. A signed and witnessed informed consent was placed on the chart. PATIENT IDENTIFICATION AND SURGICAL SITE DETERMINATION: Patient was seen in preop, consent was reviewed, operative procedure was identified and surgical site and thigh marked. ANESTHESIA Pre-Anesthesia Assessment: A History and Physical has been performed, and patient medication allergies have been reviewed. Therisks and benefits of the procedure along with sedation options and risks were discussed with the patient. All questions were answered and informed consent was obtained. Anesthesia administered: General, Spinal FINDINGS: Bone: Degenerative changes were found. Exam of the femoral head showed osteophyte formation, eburnated bone, loss of articular cartilage and bone loss. Exam of the acetabulum showed loss of articular cartilage, cyst formation, eburnated bone, significant osteophyte formation and significant synovitis. The quality of the bone stock for subsequent implant placement was good. DESCRIPTION OF PROCEDURE: Intraoperative Inputs and Outputs: Outs: Estimated Blood Loss: 200. Ins: Lactated Ringer's: 2000. Intraoperative Medications: Naropin (Ropivacaine), Epinephrine Drains: No COMPLEXITY MODIFIER: Due to the patient's height of 69.5 , weight of 310 , and body mass index of 45 , the surgery required additional surgical dissection, assistance with retraction, and increased surgical exposure in order to perform the total joint replacement. This required additional assistance in the operating room, unique instrumentation and techniques, increased time, increased risk, which all made for a morecomplex and difficult joint replacement procedure. This way due to the increased body mass index and obesity in addition to the severity of the arthritis. Therefore, a modifier 22 is being utilized. PATIENT POSITIONING: The patient is taken into the operative suite. After suitable and adequate induction of anesthesia,the patient is positioned in the lateral decubitus position using a standard well-padded pegboard. The hip and lower extremity is prepped and draped using a standard. Prior to performance of surgicalprocedure, a time out was performed to identify the patient, date of , pertinent allergies, surgical procedure, surgical site, perioperative medications to include preoperative antibiotics given, preoperative x-rays and relevant images and results are noted and displayed, and availability of implants and supplies. INCISION TYPE: The tip of the greater trochanter is localized using a spinal needle. An incision is carried out through the skin and subcutaneous tissues one-third distal to the tip of the great trochanter, two-thirds proximal to the tip of the greater trochanter. The fascia jules is now incised along the line of the incision. The trochanter is visualized and the anterior inferior fibers of the gluteus medius and minimus are elevated from their anterior and lateral attachment to the femur. The capsule is incised along the line of the femoral neck. The hip is dislocated anteriorly, using a flexion, external rotation and abduction maneuver. INSTRUMENTS AND METHODS: The femoral head and neck is resected at an approximate angle of 45 degrees from the tip of the greater trochanter. The level of resection is based on the preoperative templating. Attention is then focused to the acetabulum where appropriate anterior-posterior and inferior retractors are placed. The labrum is excised and the condyloid notch is debrided. The acetabulum is now deepened and expandedwith sequential reamers to a diameter of 60mm . A cementless G7 4 Hole Finned Acetabular Shell , 60mm acetabular component is now selected and seated within the confines of the acetabulum with a tight and secure interference fit over an autologous grafting obtained from reaming of the femoral head.Screws placed: None . Position of the component is abduction of approximately 40 degrees and anteversion of approximately 15 degrees. Landmarks utilized are the pubis, ischium and ilium. A G7 Vivacit-E Neutral, , G, liner is placed. The femoral canal is now prepared to accept a Z1 Collared , Size: 7 stem. Trial reduction is now accomplished with the standard and high-offset stems. The H/O stem is selected and a Size: 7 device isseated with a tight interference fit with supplement autogenous grafting. Femoral head and neck trial units are now utilized to determine stability and leg length equality and a 40mm head and 0 neck length is selected. The hip is reduced and stable. The wound is copiously irrigated and infiltrated with Naropin (Ropivacaine), Epinephrine and a topical antibiotic 1 gram ofvancomycin in the wound for infection prophylaxis was given. WOUND CLOSURE: Sylke was utilized. The extensor mechanism is approximated with #1 Stratafix PDS Double Arm and #1 Vicryl suture, if needed, subcutaneous tissue with 2-0 Stratafix Monocryl Double Arm and the skin closed with 3-0 Stratafix Monocryl Double Arm. Closure is accomplished in flexion. A full thickness skin incision was performed. After wound closure, there is light to moderate exudate. Collagen dressing is indicated PATIENT TO RECOVERY ROOM: The patient is turned in the supine position. The patient was awakened from anesthesia and taken torecovery room awake, alert, and stable in good condition. Roentgenographs are then obtained revealing satisfactory position and alignment of the components. MATERIALS BUYER/ATTENDING PHYSICIAN: Jagdeep Keller PA-C assisted with proper preoperative positioning, preoperative templating, determining availability of proper implants, prepping and draping of patient, manipulation placement of instruments, protection of ligaments and vital soft tissue structures, assistance in maintaining hemostasis and assistance with closure of wound. They assisted with preoperative, intraoperative, postoperative determination of correct leg length ensuring accuracy of measurements. They assisted with the dislocation of the [place] hip, as well as dislocation/relocation of the prosthetic joint during the operation. Their skills and knowledge of the steps of the operation and the desired outcome of each surgical step was crucial, allowing for efficient choreography of surgical procedure, and closure of the wound which lead to reduced surgical time, less blood loss, and less risk of complications for the patient. NOTES: Intraoperative x-rays were obtained to evaluate position and alignment of components. All components were found to be in satisfactory position and alignment. None Created and Digitally Signed By: Maria Luisa Varma MD, FACS on 01/16/2025 14:52:[address] [facility], A Member of [facility] OPERATIVE REPORT PATIENT NAME: Meliza Eastman DATE OF : 1965 CSN: [id number] SURGEON: Maria Luisa Varma MD, FACS DATE OF SERVICE: 01/16/2025 DATE OF SURGERY: 01/16/2025 REF [id number] LOT [id number] G7 Vivacit-E Size G 40.00 Millimeter Non-constrained polyethylene acetabular liner Use By 2029-10-14 () [id number] (17 [id number] (10) [id number] REF [id number] LOT [id number] G7 Acetabular System 60 mm Shell Size Liner Size G Acetabular shell Use By 2034-08-12 () [id number] (17 [id number] (10) [id number] REF [id number] LOT [id number] Z1 Hip System Size 7 Coated hip femur prosthesis, modular Use By 2029-08-09 (41) [id number] (33) [id number] (96) [id number] Taken on 01/16/2025 by DONAL documented in this encounterSurgical [facility]ty Center [facility] Coord[facility] [id number] Surgery Surgical operation note* Maria Luisa Varma MD - 01/16/2025 1:22 PM EDT [External] Meliza Eastman 1965 [email or web address] Maria Luisa Varma CYBERSECURITY WARNING: This email is sent from outside of [facility]. DO NOT click on links, open attachments or share confidential information unless you know the sender and the email was expected. Please report any suspicious emails using the Report Phishing button. [facility], A Member of [facility] OPERATIVE REPORT PATIENT NAME: Meliza Eastman DATE OF : 1965 CSN: [id number] SURGEON: Maria Luisa Varma MD, FACS DATE OF SERVICE: 01/16/2025 DATE OF SURGERY: 01/16/2025 PREOPERATIVE DIAGNOSIS: OA right hip (M16.11) Morbid Obesity (E66.01) POSTOPERATIVE DIAGNOSIS: OA right hip (M16.11) Morbid Obesity (E66.01) PROCEDURE: Primary Right Total Hip Arthroplasty utilizing the direct lateral approach (64154-80) Femoral Component: Indra Biomet Z1 Collared , Non Cemented H/O Core Stem , Size: 7 Acetabular Component: G7 4 Hole Finned Acetabular Shell , 60mm Liner: G7 Vivacit-E Neutral, G, 40mm Screws: None Head Neck Unit: Indra Biomet Ceramic Taper , 40mm , 0 ATTENDINGSURGEON: Maria Luisa Varma MD, FACS MATERIALS BUYER: Jagdeep Keller PA-C INDICATIONS: Patient is a 59-year-old Male. History and physical has been reviewed and there have been no changes in the patient's condition. The patient has failed previous conservative treatment. Due to the nature of the patient's persistent symptoms, surgery is recommended. The alternatives, risks and benefits of surgery were discussed with the patient. The patient verbalized their understanding of the risks as well as the alternatives to surgery. The patient wished to proceed with the operative intervention. A signed and witnessed informed consent was placed on the chart. PATIENT IDENTIFICATION AND SURGICAL SITE DETERMINATION: Patient was seen in preop, consent was reviewed, operative procedure was identified and surgical site and thigh marked. ANESTHESIA Pre-Anesthesia Assessment: A History and Physical has been performed, and patient medication allergies have been reviewed. Therisks and benefits of the procedure along with sedation options and risks were discussed with the patient. All questions were answered and informed consent was obtained. Anesthesia administered: General, Spinal FINDINGS: Bone: Degenerative changes were found. Exam of the femoral head showed osteophyte formation, eburnated bone, loss of articular cartilage and bone loss. Exam of the acetabulum showed loss of articular cartilage, cyst formation, eburnated bone, significant osteophyte formation and significant synovitis. The quality of the bone stock for subsequent implant placement was good. DESCRIPTION OF PROCEDURE: Intraoperative Inputs and Outputs: Outs: Estimated Blood Loss: 200. Ins: Lactated Ringer's: 2000. Intraoperative Medications: Naropin (Ropivacaine), Epinephrine Drains: No COMPLEXITY MODIFIER: Due to the patient's height of 69.5 , weight of 310 , and body mass index of 45 , the surgery required additional surgical dissection, assistance with retraction, and increased surgical exposure in order to perform the total joint replacement. This required additional assistance in the operating room, unique instrumentation and techniques, increased time, increased risk, which all made for a morecomplex and difficult joint replacement procedure. This way due to the increased body mass index and obesity in addition to the severity of the arthritis. Therefore, a modifier 22 is being utilized. PATIENT POSITIONING: The patient is taken into the operative suite. After suitable and adequate induction of anesthesia,the patient is positioned in the lateral decubitus position using a standard well-padded pegboard. The hip and lower extremity is prepped and draped using a standard. Prior to performance of surgicalprocedure, a time out was performed to identify the patient, date of , pertinent allergies, surgical procedure, surgical site, perioperative medications to include preoperative antibiotics given, preoperative x-rays and relevant images and results are noted and displayed, and availability of implants and supplies. INCISION TYPE: The tip of the greater trochanter is localized using a spinal needle. An incision is carried out through the skin and subcutaneous tissues one-third distal to the tip of the great trochanter, two-thirds proximal to the tip of the greater trochanter. The fascia jules is now incised along the line of the incision. The trochanter is visualized and the anterior inferior fibers of the gluteus medius and minimus are elevated from their anterior and lateral attachment to the femur. The capsule is incised along the line of the femoral neck. The hip is dislocated anteriorly, using a flexion, external rotation and abduction maneuver. INSTRUMENTS AND METHODS: The femoral head and neck is resected at an approximate angle of 45 degrees from the tip of the greater trochanter. The level of resection is based on the preoperative templating. Attention is then focused to the acetabulum where appropriate anterior-posterior and inferior retractors are placed. The labrum is excised and the condyloid notch is debrided. The acetabulum is now deepened and expandedwith sequential reamers to a diameter of 60mm . A cementless G7 4 Hole Finned Acetabular Shell , 60mm acetabular component is now selected and seated within the confines of the acetabulum with a tight and secure interference fit over an autologous grafting obtained from reaming of the femoral head.Screws placed: None . Position of the component is abduction of approximately 40 degrees and anteversion of approximately 15 degrees. Landmarks utilized are the pubis, ischium and ilium. A G7 Vivacit-E Neutral, , G, liner is placed. The femoral canal is now prepared to accept a Z1 Collared , Size: 7 stem. Trial reduction is now accomplished with the standard and high-offset stems. The H/O stem is selected and a Size: 7 device isseated with a tight interference fit with supplement autogenous grafting. Femoral head and neck trial units are now utilized to determine stability and leg length equality and a 40mm head and 0 neck length is selected. The hip is reduced and stable. The wound is copiously irrigated and infiltrated with Naropin (Ropivacaine), Epinephrine and a topical antibiotic 1 gram ofvancomycin in the wound for infection prophylaxis was given. WOUND CLOSURE: Sylke was utilized. The extensor mechanism is approximated with #1 Stratafix PDS Double Arm and #1 Vicryl suture, if needed, subcutaneous tissue with 2-0 Stratafix Monocryl Double Arm and the skin closed with 3-0 Stratafix Monocryl Double Arm. Closure is accomplished in flexion. A full thickness skin incision was performed. After wound closure, there is light to moderate exudate. Collagen dressing is indicated PATIENT TO RECOVERY ROOM: The patient is turned in the supine position. The patient was awakened from anesthesia and taken torecovery room awake, alert, and stable in good condition. Roentgenographs are then obtained revealing satisfactory position and alignment of the components. MATERIALS BUYER/ATTENDING PHYSICIAN: Jagdeep Keller PA-C assisted with proper preoperative positioning, preoperative templating, determining availability of proper implants, prepping and draping of patient, manipulation placement of instruments, protection of ligaments and vital soft tissue structures, assistance in maintaining hemostasis and assistance with closure of wound. They assisted with preoperative, intraoperative, postoperative determination of correct leg length ensuring accuracy of measurements. They assisted with the dislocation of the [place] hip, as well as dislocation/relocation of the prosthetic joint during the operation. Their skills and knowledge of the steps of the operation and the desired outcome of each surgical step was crucial, allowing for efficient choreography of surgical procedure, and closure of the wound which lead to reduced surgical time, less blood loss, and less risk of complications for the patient. NOTES: Intraoperative x-rays were obtained to evaluate position and alignment of components. All components were found to be in satisfactory position and alignment. None Created and Digitally Signed By: Maria Luisa Varma MD, FACS on 01/16/2025 14:52:[address] [facility], A Member of [facility] OPERATIVE REPORT PATIENT NAME: Meliza Eastman DATE OF : 1965 CSN: [id number] SURGEON: Maria Luisa Varma MD, FACS DATE OF SERVICE: 01/16/2025 DATE OF SURGERY: 01/16/2025 REF [id number] LOT [id number] G7 Vivacit-E Size G 40.00 Millimeter Non-constrained polyethylene acetabular liner Use By 2029-10-14 () [id number] (17) [id number] (10) [id number] REF [id number] LOT [id number] G7 Acetabular System 60 mm Shell Size Liner Size G Acetabular shell Use By 2034-08-12 () [id number] (66) [id number] REF [id number] LOT [id number] Z1 Hip System Size 7 Coated hip femur prosthesis, modular Use By 2029-08-09 (20) [id number] (33) [id number] (27) [id number] Taken on 01/16/2025 by DONAL [id number] History and physical note* Maria Luisa Varma MD - 01/16/2025 10:40 AM EDT History and Physical Update ( H&P completed within the previous thirty days ) I personally reviewed the History and Physical, interviewed and examined the patient prior to surgery. No changes have occurred in the patient's condition since the History and Physical was completed. Lydia Work Phone: [phone] 435-804609-22-2025 History and physical note* Maria Luisa Varma MD - 01/16/2025 10:40 AM EDT History and Physical Update ( H&P completed within the previous thirty days ) I personally reviewed the History and Physical, interviewed and examined the patient prior to surgery. No changes have occurred in the patient's condition since the History and Physical was completed. documented in this encounterVirgin [id number] History of Present illness Narrative* Nehemias Neumann MD - 01/16/2025 8:00 AM EDT Images from the original note were not included. RADIATION ONCOLOGY COMPLETION NOTE Patient Name (MRN): Meliza Eastman ([id number]) Radiation Oncologist: Nehemias Neumann MD : 1965 Date of Service: 01/16/2025 Referring Physician: Maria Luisa Varma MD DIAGNOSIS AND STAGE Heterotopic ossification prevent prior to right total hip surgery RADIATION TREATMENT DETAILS Treatment site: Right hip Treatment Intent: prophylactic Radiation Therapy: Leg Treatment Period Fraction Dose Fractions Total Dose Course C1 01/16/2025-01/16/2025 (days elapsed: 0) Plans Planned R Hip 01/16/2025-01/16/2025 750 cGy 750 cGy Reference Points Delivered R Hip 01/16/2025-01/16/2025 -- -- 750 cGy Treatment Status: Completed as planned Technique: 3D conformal - AP/PA HISTORY Meliza Eastman is a 59 y.o. male scheduled for a right total hip replacement later this morning 01/16/25. He presents today to move forward with pre-operative radiation therapy for heterotopic ossification prevention. I met with the patient on 01/13/25 and he agreed to proceed with this treatment. He underwent CT simulation for radiotherapy that day. CLINICAL COURSE Today, the patient received a single fraction of 750 cGy to the right hip. He was treated with an AP/PA technique with opposed 18 MV photon bahena. IGRT was used for setup verification. The patient underwent CT simulation on 01/13/25 and proceed with treatment today 01/16/25. He was treated over 0 elapsed days. The patient tolerated treatment well. He will move on to his surgery later this morning. * Sandra Tesfaye RN - 01/16/2025 8:00 AM EDT You have completed your radiation treatments and may resume normal activity slowly. You may return to your regular exercise as tolerated. You may bathe normally but use extra gentle care to the skin in the area treated until the skin is healed. Continue any special diet instructions (if applicable)and take your medications as prescribed. Your follow up appointment is listed below. If you have questions or concerns prior to your next visit, please contact your Radiation Oncology Team. Message your team through [employer] for non-urgent questions. [email or web address] For urgent concerns after business hours, call the hospital bandmill operator at [phone] and ask to speak with the Radiation Oncologist land degradation analyst. For medical emergencies, call 911 or report directly to the emergency room. Thank you for allowing us to be a part of your care team! * Nehemias Neumann MD - 01/16/2025 8:00 AM EDT Images from the original note were not included. RADIATION ONCOLOGY VERIFICATION NOTE Patient Name (MRN): Meliza Eastman ([id number]) Radiation Oncologist: Nehemias Neumann MD : 1965 Date of Service: 01/16/2025 The patient came in for verification simulation and first treatment of his radiation treatment [facility]. I was present and verified the setup and the isocenter. A timeout was performed to confirm patient, date of , treatment site and technique. The bahena were set up and imaged. I reviewed the images on the computer system and compared them to the digitally reconstructed radiographs (DRR).The bahena set up correctly, and I approved the images. The patient may proceed with this treatment. * Nehemias Neumann MD - 01/16/2025 8:00 AM EDT Images from the original note were not included. RADIATION ONCOLOGY ON TREATMENT VISIT Patient Name (MRN): Meliza Eastman ([id number]) Staff Physician: Nehemias Neumann MD : 1965 Date of Service: 01/16/2025 RADIATION TREATMENT DETAILS Radiation Therapy: Leg Treatment Period Fraction Dose Fractions Total Dose Course C1 01/16/2025-01/16/2025 (days elapsed: 0) Plans Planned R Hip 01/16/2025-01/16/2025 750 cGy 750 cGy Reference Points Delivered R Hip 01/16/2025-01/16/2025 -- -- 750 cGy SUBJECTIVE / OBJECTIVE Received single fraction treatment w/o difficulty. Will move forward with surgery later this morning. There were no vitals taken for this visit. ASSESSMENT / PLAN Completes single fraction treatment today Toxicity Assessment Pain Score and Plan of Care Medication Changes No orders of the defined types were placed in this encounter. OTV Summary Radiation Therapy Visit Radiation dose schedule reviewed and remains acceptable Dosimetry plan remains acceptable Radiation technique remains acceptable Films reviewed and remain acceptable Patient setup reviewed and remains acceptable Completes single fraction treatment documented in this encounterSurgical [facility] [id number] History of Present illness Narrative* Nehemias Neumann MD - 01/13/2025 11:00 AM EDT Images from the original note were not included. RADIATION ONCOLOGY TREATMENT PLANNING NOTE Patient Name (MRN): Meliza Eatsman ([id number]) Radiation Oncologist: Nehemias Neumann MD : 1965 Date of Service: 01/13/25 A custom radiation plan will be constructed for Meliza Eastman. This Treatment Plan is an order of the services required to initiate tumor localization, dosimetry and imaging associated with treatment delivery. This Treatment Plan may be subject to change throughout the planning process to optimize treatment. The final prescription, reflecting treatment modality, dose, fractionation, energy, beam arrangement, image guidance, and any additional information will be provided in an electronic prescription in [facility] after my review and approval of the final dosimetry. DIAGNOSIS Right hip heterotopic ossification prevention prior to right hip replacement PLANNED PRESCRIPTION Treatment Site: Right hip Technique: 3DCRT Frequency: Once Boost? Treatment Volume Dose (cGy) Fractions Resim? Right hip 750 1 [] Seq. [] SIB [] [] Seq. [] SIB [] [] Seq. [] SIB [] NOTES: PLANNING ORDER SET [] Diode [] Bolus [] Cerrobend block; verification output [] Special Physics Consult Notes: IMAGING ORDER SET [x] MV Portal [x] kV Orthogonal [] MV/KV [] CBCT [] 4D CBCT [] Fluoroscopy [] Surface Guidance Notes: MOTION MANAGEMENT [] No gating [] Gating required Phases: [] DIBH [] Other: Notes: SPECIAL PROCEDURES [] Concurrent chemotherapy [] Dose monitoring to implanted device [] Image fusion [] Retreatment of same anatomic site [] SRS/SBRT [] Reconstruction of previous treatment plan [] Treatment of multiple sites concurrently [] Hyperfractionation [] Difficult patient setup [] Other: Notes: IGRT: MEDICAL NECESSITY [] IMRT is being utilized [] Reduce dose to adjacent critical structures [] Target may be subject to internal motion [] There is inherent setup variation [] Target abuts a previously irradiated field [x] Dose escalation is required Notes: RT TECHNIQUE: MEDICAL NECESSITY [x] Decrease probability of radiation toxicity when compared with conventional radiation [] Target is close to critical structures which must be protected [] Target must be covered with narrow margins to protect adjacent structures [] Target volume is concave or convex and adjacent to critical structures [x] Dose escalation is planned to deliver doses in excess of those used with conventional treatment [] Target abuts a previously irradiated field and treatment must be delivered with high precision Notes: ORGAN AT RISK (OAR) CONSTRAINTS AND TARGET VOLUME OBJECTIVES If listed below, I plan to use the following dose constraints for OAR and target volumes. These areplanning dose objectives which are subject to modification and deviation based upon clinical judgement and individual patient factors. The priorities listed herein range from 1 (most important) to 4 (least important) and are designed to help guide tradeoffs in the planning process. I will review dose-volume parameters and dose distribution for all targets and structures in the radiation treatmentplanning system. My final approval will be provided in the treatment planning system. * Nehemias Neumann MD - 01/13/2025 11:00 AM EDT Images from the original note were not included. RADIATION ONCOLOGY CONSULTATION Patient Name (MRN): Meliza Eastman ([id number]) Radiation Oncologist: Nehemias Neumann MD : 1965 Date of Service: 01/13/2025 Referring Physician: Maria Luisa Varma MD ASSESSMENT This is a 59 y.o. male who is scheduled for a right total hip replacement on 01/16/25. He presents today to discuss pre-operative radiation therapy for heterotopic ossification prevention. PLAN 1. Role for Radiation Therapy / Shared Decision Making. I discussed the role of pre-operative single fraction radiotherapy prior to right total hip replacement as a means of heterotopic ossification prevention. I discussed the pertinent risks, benefits, side effects, and rationale of the same. He was agreeable to proceed. 2. Technique for Radiation Therapy. I will plan to deliver a single fraction of 750 cGy to the right hip prior to his scheduled surgery. I will plan to use a 3D conformal/AP/PA technique. 3. Next Steps. The patient will proceed with CT simulation today and will receive single fraction treatment on Thursday01/16/25 prior to his surgery. Thank you for allowing us to participate in the multidisciplinary care of this patient. HISTORY OF PRESENT ILLNESS Meliza Eastman is a 59 y.o. male scheduled for right total hip replacement on 01/16/25. Patient had a prior left total hip replacement in [place]. Plain films of pelvis/hip on 08/19/24 revealed heterotropic ossification of the left hip Given plan for right total hip replacement, we were asked to administer pre- operative radiotherapy as a means of heterotopic ossification prevention. PAST MEDICAL HISTORY Past Medical History: Diagnosis Date Anxiety Arthritis Bipolar disorder ([facility] V24, [facility] V28) Chronic back pain Depression Heterotopic ossification of joint left hip HTN (hypertension) Hyperlipidemia Left sided heart thickening Sleep apnea Wears glasses PAST SURGICAL HISTORY Past Surgical History: Procedure Laterality Date HIP ARTHROPLASTY Left KNEE ARTHROSCOPY Bilateral ORIF ANKLE FRACTURE Right ROTATOR CUFF REPAIR Left SHOULDER ARTHROSCOPY Left FAMILY HISTORY Cancer-related family history includes Breast cancer in his mother; Colon cancer in his father. SOCIAL HISTORY Social History Socioeconomic History Marital status: Spouse name: Not on file Number of children: Not on file Years of education: Not on file Highest education level: Not on file Occupational History Occupation: On Disability Tobacco Use Smoking status: Never Smokeless tobacco: Never Vaping Use Vaping status: Never Used Substance and Sexual Activity Alcohol use: Never Drug use: Never Sexual activity: Not on file Other Topics Concern Not on file Social History Narrative Not on file ALLERGIES Allergies as of 01/13/2025 - Reviewed 01/11/2025 Allergen Reaction Noted Tolmetin Anaphylaxis 01/13/2025 Meloxicam Flushing 01/10/2025 Penicillin Rash 01/10/2025 Rosuvastatin Muscular Issues 01/10/2025 MEDICATIONS Current Outpatient Medications Medication Sig Dispense Refill acetaminophen (TYLENOL) 500 mg capsule Take 2 capsules (1,000 mg total) by mouth every 6 (six) hours if needed for mild pain. Taking twice daily amLODIPine (NORVASC) 2.5 mg tablet Take 1 tablet (2.5 mg total) by mouth at bedtime. buPROPion SR (WELLBUTRIN SR) 150 mg 12 hr tablet Take 1 tablet (150 mg total) by mouth 2 (two) times a day. carvediloL (COREG) 12.5 mg tablet Take 1 tablet (12.5 mg total) by mouth 2 (two) times a day. celecoxib (CeleBREX) 100 mg capsule Take 1 capsule (100 mg total) by mouth 2 (two) times a day. cholecalciferol, vitamin D3, (VITAMIN D3 ORAL) Take 1 tablet by mouth 1 (one) time each day. DULoxetine (CYMBALTA) [address] capsule Take 1 capsule (60 mg total) by mouth 1 (one) time each day. ezetimibe (ZETIA) 10 mg tablet Take 1 tablet (10 mg total) by mouth 1 (one) time each day. furosemide (LASIX) 40 mg tablet Take 1 tablet (40 mg total) by mouth 1 (one) time each day. hydroCHLOROthiazide (HYDRODIURIL) 50 mg tablet Take 1 tablet (50 mg total) by mouth 1 (one) time each day. HYDROcodone-acetaminophen (NORCO) 7.5-325 mg per tablet Take 1 tablet by mouth 3 (three) times a day if needed. for pain lamoTRIgine (LaMICtal) 200 mg tablet Take 2 tablets (400 mg total) by mouth at bedtime. metFORMIN (GLUCOPHAGE) 500 mg tablet Take 1 tablet (500 mg total) by mouth 2 (two) times a day. multivit-mins no.63/iron/folic (M-VIT ORAL) Take 1 tablet by mouth 1 (one) time each day. omeprazole (PriLOSEC) [address] capsule Take 1 capsule (40 mg total) by mouth 1 (one) time each day. perphenazine 8 mg tablet Take 1 tablet (8 mg total) by mouth 1 (one) time each day. polyethylene glycol (MIRALAX) 17 gram packet Take 17 g by mouth if needed for constipation. ramipriL (ALTACE) 10 mg capsule Take 1 capsule (10 mg total) by mouth 2 (two) times a day. Repatha SureClick 140 mg/mL pen injector injection Inject 1 mL (140 mg total) under the skin every 14 (fourteen) days. tamsulosin (FLOMAX) 0.4 mg 24 hr capsule Take 1 capsule (0.4 mg total) by mouth 1 (one) time each day. Vitamin C tablet Take 1 tablet (100 mg total) by mouth 1 (one) time each day. No current facility-administered medications for this encounter. REVIEW OF SYSTEMS Review of Systems Musculoskeletal: Right hip pain, other joint pains PHYSICAL EXAMINATION There were no vitals taken for this visit. ECOG Performance Status: 1 (using 2 canes for support w/ambulation) Physical Exam Vitals reviewed. Pulmonary: Effort: Pulmonary effort is normal. Musculoskeletal: Comments: Right hip pain Neurological: General: No focal deficit present. Mental Status: He is alert. DATA ANALYSIS I have personally reviewed the imaging in PACS, pathology and any additional reports as described above. documented in this encounterSurgical Specialty Center At Coordinated [id number] Evaluation note* Type Assessment Date assessment Primary osteoarthritis of right hip [facility] Work Phone: 1(153) 519-210909-08-2025 Evaluation note* Diagnosis Onset Date Resolution Status Admit Date Abnormal gait acute January 022024 2:51pm Bilateral carpal tunnel syndrome acute January 02, 2 025 2:51pm Calcification of basal ganglia acute January 02, 2025 2:51pm Cerebrovascular disease acute S eptember 2024 2:51pm Cervical myelopathy acute Septe mber 2024 2:51pm Cervicalgia acute December 2:51pm Mild cognitive impairment acute January 02, 2025 2:51pm Tension headache acute Septembe r 2024 2:51pm [facility] Work Phone: 1(842) 900-745009-02-2025 History of Present illness Narrative* Encounter Date Complaint History Of Prese nt Illness Preoperative medical risk stratification The patient, Meliza Eastman, is a 59-year-old male who presents at the request of Dr.Adolph Mary Carr MD in anticipation of RTHA. Consultation has been requested by the surgical service for assessment and optimization of acute and chronic health conditions as outlined below.Patient is on appropriate pharmacological treatment for hypertension, hyperlipidemia, peripheral edema and depression. He does follow-up with cardiology. He reports they are helping him manage his blood pressure and lipids. He reports of prior left heart catheterization but reports no need for any cardiac intervention and denies any history of structural or ischemic heart disease. His functional capacity is currently compromised due to his hip symptoms. He reports a diagnosis of obstructive sleep apnea but was intolerant of CPAP therapy. Hip AVL New Patient with replaced joint HPI 59 year old male presents to the office complaining of bilateral knees and right hip pain. He states the pain has been present for years however, the pain has increased over the last few months and is impeding his ability to perform his activities of daily life and is impacting their quality of life. He denies any particular injury to the joint. He describes the pain as constant , in bilateral knees and right hip. Patient describes pain to be generally 8-9/10 in the right hip, and in bilateral knees, pain is 5/10. Patient had his knees injected September 2023 with cortisone injection followed by visco-supplementation. Patient says the right hip is the most painful now. Patient states that he has difficulty flexing both knees. Patient states that he has the left hip done by Dr. Nichols in [facility], in January 2017. He states activity makes the pain worse and sitting helps alleviate the pain. In the past, he has been treated with over the counter medication which provided some relief initially. He currently denies any chest pain, shortness of breath, numbness/tingling or calf tenderness. He is currently using a cane for ambulation. PMH: HTN, bipolar, left-sided heart thickening. Tried Wegovy in the fall and lost 2lbs. [facility] Work Phone: 1(810) 923-652105-30-2025 Evaluation note* Diagnosis Onset Date Resolution Status Admit Date Lower extremity edema acute September 23, 2024 11:01am Dizziness chronic September 23, 2024 11:01am Hyperlipidemia chronic September 23, 2024 11:01am Hypertension chronic September 23 11:01am [facility] Work Phone: 1(636) 119-858304-21-2025 Consult note [facility] Medical Records Department [address] [place] [address] Anesthesia Postop Eval II 08/15/24 0936 MR#: [id number] Acct: [id number] Name: ALLIEMELIZALYDIA Rep #:[id number] : 1965 59 From: Byron Tiwari MD PCP: Dr. Jj Eason MD Status:REG SDC Y Race: C Location: [place] [address] Anesthesia Postop Eval I Sum Postop Eval Completion status Anesthesia document: Postop Eval 1 completed: Yes Anesthesia Postop Eval I Summary Anesthesia Postop Eval I Summary: Anesthesia Postop Eval I: Assessment Summary Airway patent Yes 08/15/24 08:50 SYNOPTIC METEOROLOGIST.BHOS Spontaneous unlabored Yes 08/15/24 08:50 SYNOPTIC METEOROLOGIST.BHOS respirations Mental status Awake,Calm 08/15/24 08:50 SYNOPTIC METEOROLOGIST.BHOS nausea No 08/15/24 08:50 SYNOPTIC METEOROLOGIST.BHOS Vomiting No 08/15/24 08:50 SYNOPTIC METEOROLOGIST.BHOS Anesthesia Postop Eval I: Fluid Summary Crystalloid volume administer 0 08/15/24 08:50 SYNOPTIC METEOROLOGIST.BHOS (ml) Colloids volume administered ( ml) Blood Product volume administered (ml) Total IV fluid infused 0 08/15/24 08:50 SYNOPTIC METEOROLOGIST.BHOS Anesthesia Postop Eval I: Summary Notes Anesthesia Complication No 08/15/24 08:50 SYNOPTIC METEOROLOGIST.BHOS Anesthesia Complication Comment: Post-operative progress note Anesthesia: Postop Eval II Evaluation Mental status: Awake Pain Level: 0 nausea: No Vomiting: No 08/15/24 0936 > Date _ Byron Tiwari MD Cosigner Signature: Date CC: ~ Signed [facility]04-21-2025 Consult note Author Byron Tiwari [facility] Note Date/Time August 15, 2024 8:1 3am [facility] Medical Records Department [address] [place] [address] Pre-Anesthesia Evaluation 08/15/24 0725 MR#: [id number] Acct: [id number] Name: MELIZA EASTMAN Rep #:[id number] : 1965 59 From: Byron Tiwari MD PCP: Dr. Jj Eason MD Status:REG SDC Y Race: C Location: [place] [address] Byron Tiwari MD on 08/15/24 at 0812 Addendum Patient decided to go with straight local today 08/15/24 0812 <Electronically signed by Byron Tiwari MD > Date _ Byron Tiwari MD cc: ~* Signed ASA Classification* ASA Classification ASA Classification: 2 Assessment & Plan Anesthesia* Anesthesia Assessment Anesthesia Assessment: Discussed sedation and/or anesthesia options, risks, benefits, and alternatives with patient/parents/legal guardian/POA. Questions invited. The patient/parents/legal guardian/POA seems to understand and agrees to proceedwith anesthesia plan. Reviewed the physical assessment, medical history, allergy history and patient home medications list prior to surgery/procedure/anesthetic and documented any changes. Performed airway and anesthesia risk assessments. Anesthesia Type Anesthesia Type: MAC Anesthesia Focused Assessment* Airway Assessment Mouth opens: >3 cm Mallampati Score: II Focused Labs Anesthesia Preop lab: CBC WBC 9.1 K/mm3 (4.4-11.0) 08/01/24 15:22 08/01/24 RBC 4.71 M/mm3 (4.6-6.2) 08/01/24 15:22 08/01/24 Hgb 14.2 g/dL (13.0-16.5) 08/01/24 15:22 08/01/24 Hct 43.5 % (40-54) 08/01/24 15:22 08/01/24 Plt Count 285 K/mm3 (150-450) 08/01/24 15:22 08/01/24 CHEMISTRY Potassium 4.1 mmol/L (3.3-5.1) 08/01/24 15:22 08/01/24 Sodium 138 mmol/L (133-145) 08/01/24 15:22 08/01/24 Magnesium 2.3 mg/dL (1.6-2.6) 03/06/23 04:05 03/06/23 Phosphorus 4.3 mg/dL (2.5-4.9) 02/26/23 06:00 02/26/23 BUN 20 mg/dL (4-19) H 08/01/24 15:22 08/01/24 Creatinine 0.93 mg/dL (0.70-1.20) 08/01/24 15:22 08/01/24 Glucose 95 mg/dL (70-99) 08/01/24 15:22 08/01/24 POC Glucose 119 mg/dL (74-106) H 01/13/23 06:03 01/13/23 TSH 1.49 uIU/mL (0.358-3.74) 11/12/23 14:15 COAG PT 12.8 SECONDS (11.7-14.9) 05/27/22 13:36 Pre-Assessment Diagnosis/Proposed Procedure Planned Operative Procedure(s): Hip injection Anesthesia History Anesthesia History - horse race starter: Anesthesia History - horse race starter Hx Hospitalization Yes: 01/17, 03/19 : [facility] 07/01/24 13:37 Any Problems With Anesthesia No 07/01/24 13:37 Cholinesterase deficiency No 07/01/24 13:37 You/Your Family Experience No 07/01/24 13:37 fever (hyperthermia) with Relationship Recent Exposure to Contagious No 07/01/24 13:37 Disease Does patient have nerve No 07/01/24 13:37 stimulator Patient instructed to have device shut off --Does patient have Pacemaker or ICD? When Was Last Pacemaker Check QUESTION #4 FULL TEXT: You/Your Family Experience fever (hyperthermia) with Anesthesia Last Oral Intake Last Oral intake: Last Oral Intake NPO since Meds taken in AM with sips of water? Meds patient instructed to take am of surgery PONV PONV - horse race starter: PONV - horse race starter Female HX of Motion Sickness HX of N/V After Surgery Non-Smoker Duration of Surgery greater than 60 minutes Number of Risk Factors PONV Score Height & Weight Height & Weight: Anesthesia: Height & Weight Height 5 ft 10 in 08/04/24 11:20 Respiratory Assessment Respiratory Assessment - horse race starter: Respiratory Tract Infection Hx - horse race starter Hx Respiratory Tract Infection No 07/01/24 13:37 STOP Sleep Apnea STOP Sleep Apnea - horse race starter: STOP Sleep Apnea - horse race starter Hx Hypertension Yes: CONTROLLED WITH MEDS 07/01/24 13:37 Hx Sleep Apnea Yes 07/01/24 13:37 CPAP No 07/01/24 13:37 BIPAP No 07/01/24 13:37 Do you snore loudly (louder than talking or can be heard Do you often feel tired/ fatigued/ sleepy during daytime? Has anyone observed you stop breathing during sleep? STOP Results QUESTION #5 FULL TEXT : Do you snore loudly (louder than talking or can be heard through closed doors)? Tobacco Use History Tobacco Use History - horse race starter: Tobacco Use History - horse race starter Tobacco Use Smoking Status Never smoker 07/01/24 13:37 Hx Tobacco Use No 07/01/24 13:37 Years Smoking Packs Smoked per Day Smoking Cessation Date was within the last 15 years Hx Smoking Cessation Date Hx Smoking Cessation Counseling Hematologic Medial History Hematologic Hx - horse race starter: Hematologic Medical Hx - tanning solution maker Hx of Blood Transfusion Hx of Transfusion in last 3 Months Date of Last Transfusion (if within last 3 months) Ever experience any problems with transfusion(s)? Specify any problems Hx of Preganancy in last 3 Months Nurse Filling Out Transfusion & Questions: Date: Time: Patient unable to answer at this time (ie. confused, unrespo /Reproduction History /Reproductive History - horse race starter: /Reproductive Hx- horse race starter Hx Now Gestational Age (in weeks): EDC: Hx Hx Para Hx Section SAB No 07/01/24 13:37 [facility] Medical History History of acute renal failure Family history of malignant neoplasm of colon in first degree relative diagnosedwhen younger than 60 years of age Family history of colon cancer in father Osteoarthritis of left knee Left knee pain Medical non-compliance Metabolic encephalopathy Abnormal lithium level in blood History of bipolar disorder Obesity, morbid, BMI 50 or higher Wears glasses Headache Loss of consciousness Pain Primary osteoarthritis, right shoulder Primary osteoarthritis, left shoulder Left shoulder pain Right shoulder pain Dizziness Degenerative joint disease (DJD) of hip Cancer Bipolar disorder Depression Anxiety Ambulates with cane Arthritis High cholesterol Back pain Injury of head and neck Hx of reactive hypoglycemia Non-smoker CPAP (continuous positive airway pressure) dependence Shortness of breath on exertion Chronic cough History of pain when walking History of edema Hypertension Cardiology follow-up encounter History of echocardiogram History of stress test Osteoarthritis of right hip Chest pain SOBOE (shortness of breath on exertion) Obesity Iliotibial band syndrome affecting left lower leg Disc degeneration, lumbar Osteoarthritis of right hip Breast mass, left Chronic pain of both knees Cataract, left eye Essential (primary) hypertension Body mass index (BMI) 35 or more Obesity Anxiety and depression RAY (obstructive sleep apnea) Palpitations Hyperlipidemia Home Medications ?Medication ?Instructions ?Recorded ?Last Taken ?Type multivitamin (Daily Multi-Vitamin 1 tab PO DAILY suppl ement 12/01/19 01/12/23 History tablet) lamotrigine 200 mg tablet 400 mg PO QHS skin 08/02/20 03/13/24 History acetaminophen 500 mg capsule 500 mg PO Q6H PRN Pain 08/31/23 05:00 History bupropion HCl 150 mg tablet,12 hr 150 mg PO BID depres tl 12/03/21 03/16/22 History sustained-release (Wellbutrin SR) ascorbic acid (vitamin C) 500 mg 1,000 mg PO DAILY vit butt 05/27/22 Unknown History tablet (Vitamin C) cholecalciferol (vitamin D3) 25 2,000 unit PO DAILY vi tamin 05/27/22 12/01/23 History mcg (1,000 unit) chewable tablet (Vitamin D3) ramipril 10 mg capsule 10 mg PO BID bp 05/27/2210/19 History tamsulosin 0.4 mg capsule 0.4 mg PO Q24H prostate 07/05/1903/13/24 History gabapentin 800 mg tablet 800 mg PO QHS pain 02/25/23 03/13/24 History hydrochlorothiazide 25 mg tablet 25 mg PO DAILY Unknown History omeprazole 40 mg capsule,delayed 40 mg PO DAILY 03/13/24 History release carvedilol 12.5 mg tablet 12.5 mg PO BID 03/16/2410/19 History amlodipine 5 mg tablet 5 mg PO QHS blood pressure # 90 tabs 04/01/24 Unknown Rx ezetimibe 10 mg tablet (Zetia) 10 mg PO DAILY choleste rol #90 tabs 04/01/24 05/02/24 Rx flurbiprofen 100 mg tablet 100 mg PO TID PRN pain #90 tabs 06/13/24 Unknown Rx perphenazine 4 mg tablet 8 mg PO QHS 06/13/24 Unknown History tramadol 50 mg tablet 100 mg PO BID PRN pain 06/13 Unknown History Allergy/AdvReac Type Severity Reaction Status Date / Time atorvastatin (From Lipitor) Allergy Muscle Verified 08/04/24 11:24 soreness, Tremors escitalopram (From Lexapro) Allergy Headache Verified 08/04/24 11:24 Penicillins Allergy Hives Verified 08/04/24 11:24 pravastatin (From Pravachol) Allergy Muscle Verified 08/04/24 11:24 soreness, Tremors tolmetin Allergy Anaphylaxis Verified 08/04/24 11:24 meloxicam AdvReac Other Verified 08/04/24 11:24 Family History Mother Breast cancer Myocardial infarction Hypertension Father Colon cancer at 60yrs. Dx in 50's. Myocardial infarction Surgical History H/O total hip arthroplasty History of total left hip arthroplasty Hx of exploratory laparotomy Hx of release of tendon Hx of arthroscopy of left knee Hx of arthroscopy of right knee History of carpal tunnel surgery of right wrist Hx of arthroscopy of shoulder History of open reduction and internal fixation (ORIF) procedure Hx of right cataract extraction S/P partial mastectomy History of left hip replacement (01/2017) H/O rotator cuff surgery History of left heart catheterization (02/2013) Social History household members: none current occupational status: retired 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 08/15/24 07 <Electronically signed by Byron Tiwari MD > Date _ Byron Hdz Signature: Date CC: ~ Signed [facility] Work Phone: 1(353) 633-828804-21-2025 Procedure note [facility] Medical Records Department [address] [place] [address] Operative Report 08/15/24 0859 MR#: [id number] Acct: [id number] Name: MELIZA EASTMAN Rep #:[id number] : 1965 59 From: Sin Murphy MD PCP: Dr. Jj Eason MD Status:[facility] Location: [place] [address] Operative Report (Standard) Operative Information Date of Procedure: 08/15/24 Pre-Operative Diagnosis: 1 Post-Operative Diagnosis: 1 Surgery/Procedure Performed: 1 shearing shed hand: No Type of Anesthesia: Local MAC RN Documented Start/Stop Times: Operation Date: 08/15/24 08:40 Case Time Into Pre-Op 08/15/24 07:12 Out of Pre-Op 08/15/24 08:18 Anesthesia Start 08/15/24 08:34 Into Room 08/15/24 08:34 Procedure Start 08/15/24 08:41 Procedure End 08/15/24 08:43 Anesthesia End 08/15/24 08:47 Out of Room 08/15/24 08:47 Into Recovery 08/15/24 08:50 Procedure Start Time: 08:59 Procedure Stop Time: 08:59 Select all DRAINS/GRAFTS/IMPLANTS that apply: None Estimated Blood Loss: 0 Specimen collected: No Description of surgery: PREOPERATIVE DIAGNOSIS: Osteoarthritis of the right hip POSTOPERATIVE DIAGNOSIS: Osteoarthritis of the right hip PROCEDURE PERFORMED: Right hip intraarticular steroid injection under fluoroscopy guidance. ANESTHESIA: MAC BLOOD LOSS: Minimal. COMPLICATIONS: None. DESCRIPTION OF PROCEDURE: History and physical of today was reviewed. Risks and benefits of the procedure were explained. The patient understood and agreedto proceed. Informed consent was obtained. IV inserted per routine protocol. The patient was taken to the operating room and placed in the supine position. The right hip area was prepped and draped in a sterile fashion using iodine x3. Under fluoroscopy guidance on AP view, the right hip joint was visualized. The skin and subcutaneous tissue was anesthetized with approximately 3 mL of 1% lidocaine using a 25-gauge regular needle approximately 3 cm cephalad to the right greater trochanter. Under direct visualization with fluoroscopy on an AP view, using a 22-gauge 5-inch spinal needle, the needle was advanced via the skin using the lateral approach. The tip of the needle was maneuvered and directedtowards the superiormost aspect of thehip joint. Once the tip of the needle was at the vicinity of the joint, after negative aspiration for blood and positive aspiration of synovial fluid, a total of 1 mL of contrast was injected to confirm correct placement of the needle as well as halo spread around the hipjoint. After repeated negative aspiration for blood and confirmation on AP as well as oblique view, a total of 10 mL of preservative-free 0.25% Marcaine with 80 mg of Depo-Medrol was injected easily. The needle was then removedintact. The patient experienced no sign or symptoms of intrathecal or intravascular injection. The patient experienced no paresthesia. The procedure was completedwithout any apparent difficulty or any complications. The patient appeared to tolerate it well. ASSESSMENT AND PLAN: This is a 59-year-old male with osteoarthritis of the right hip status post right hip intra-articular steroid injection under fluoroscopic guidance, patientwill continue his current medications, patient will follow in approximately 2 weeks for reevaluation. Surgical Findings: 0 Complications Complications: No Admit VTE Documentation VTE Present on Admission: No VTE Mechan Device Prophylaxis: None VTE Pharm Prophylaxis ordered?: No 08/15/24 0900 Cosigner Signature (if applicable): CC: Dr. Jj Eason MD; Dr. Sin Murphy MD~ Signed [facility]04-21-2025 Consult note [facility] Medical Records Department [address] [place] [address] Anesthesia Postop Eval I 08/15/24 0846 MR#: [id number] Acct: [id number] Name: MELIZA EASTMAN Rep #:[id number] : 1965 59 From: Guy barone SYNOPTIC METEOROLOGIST PCP: Dr. Jj Eason MD Status:REG SD Y Race: C Location: [place] [address] Anesthesia: Postop Eval I Current Vital Signs Temperature: 97.7 F Pulse Rate: 74 Blood Pressure: 140/80 Respiratory Rate: 18 Pulse Ox: 93 Oxygen Delivery Method: Room Air Assessment Airway patent: Yes Spontaneous unlabored respirations: Yes Mental status: Awake and Calm nausea: No Vomiting: No Anesthesia Complication: No Fluid Hydration Crystalloid volume administer (ml): 0 Total IV fluid infused: 0 Progress Note Anesthesia document: Postop Eval 1 completed: Yes 08/15/24 0850 tler SYNOPTIC METEOROLOGIST> Date _ Guy Vallecillo SYNOPTIC METEOROLOGIST Cosigner Signature: Date CC: ~ Signed [facility]04-21-2025 Consult note [facility] Medical Records Department [address] [place] [id number] Pre-Anesthesia Evaluation 08/15/24 0725 MR#: [id number] Acct: [id number] Name: MELIZA EASTMAN Rep #:[id number] : 1965 59 From: Byron Tiwari MD PCP: Dr. Jj Eason MD Status:[facility] Y Race: C Location: [place] [address] Byron Tiwari MD on 08/15/24 at 0812 Addendum Patient decided to [facility] 08/15/24 0812 > Date _ Byron Tiwari MD cc: ~* Signed ASA Classification* ASA Classification ASA Classification: 2 Assessment & Plan Anesthesia* Anesthesia Assessment Anesthesia Assessment: Discussed sedation and/or anesthesia options, risks, benefits, and alternatives with patient/parents/legal guardian/POA. Questions invited. The patient/parents/legal guardian/POA seems to understand and agrees to proceedwith anesthesia plan. Reviewed the physical assessment, medical history, allergy history and patient home medications list prior to surgery/procedure/anesthetic and documented any changes. Performed airway and anesthesia risk assessments. Anesthesia Type Anesthesia Type: MAC Anesthesia Focused Assessment* Airway Assessment Mouth opens: >3 cm Mallampati Score: II Focused Labs Anesthesia Preop lab: CBC WBC 9.1 K/mm3 (4.4-11.0) 08/01/24 15:22 08/01/24 RBC 4.71 M/mm3 (4.6-6.2) 08/01/24 15:22 08/01/24 Hgb 14.2 g/dL (13.0-16.5) 08/01/24 15:22 08/01/24 Hct 43.5 % (40-54) 08/01/24 15:22 08/01/24 Plt Count 285 K/mm3 (150-450) 08/01/24 15:22 08/01/24 CHEMISTRY Potassium 4.1 mmol/L (3.3-5.1) 08/01/24 15:22 08/01/24 Sodium 138 mmol/L (133-145) 08/01/24 15:22 08/01/24 Magnesium 2.3 mg/dL (1.6-2.6) 03/06/23 04:05 03/06/23 Phosphorus 4.3 mg/dL (2.5-4.9) 02/26/23 06:00 02/26/23 BUN 20 mg/dL (4-19) H 08/01/24 15:22 08/01/24 Creatinine 0.93 mg/dL (0.70-1.20) 08/01/24 15:22 08/01/24 Glucose 95 mg/dL (70-99) 08/01/24 15:22 08/01/24 POC Glucose 119 mg/dL (74-106) H 01/13/23 06:03 01/13/23 TSH 1.49 uIU/mL (0.358-3.74) 11/12/23 14:15 COAG PT 12.8 SECONDS (11.7-14.9) 05/27/22 13:36 Pre-Assessment Diagnosis/Proposed Procedure Planned Operative Procedure(s): Hip injection Anesthesia History Anesthesia History - horse race starter: Anesthesia History - horse race starter Hx Hospitalization Yes: 01/17, 03/19 : [facility] 07/01/24 13:37 Any Problems With Anesthesia No 07/01/24 13:37 Cholinesterase deficiency No 07/01/24 13:37 You/Your Family Experience No 07/01/24 13:37 fever (hyperthermia) with Relationship Recent Exposure to Contagious No 07/01/24 13:37 Disease Does patient have nerve No 07/01/24 13:37 stimulator Patient instructed to have device shut off --Does patient have Pacemaker or ICD? When Was Last Pacemaker Check QUESTION #4 FULL TEXT: You/Your Family Experience fever (hyperthermia) with Anesthesia Last Oral Intake Last Oral intake: Last Oral Intake NPO since Meds taken in AM with sips of water? Meds patient instructed to take am of surgery PONV PONV - horse race starter: PONV - horse race starter Female HX of Motion Sickness HX of N/V After Surgery Non-Smoker Duration of Surgery greater than 60 minutes Number of Risk Factors PONV Score Height & Weight Height & Weight: Anesthesia: Height & Weight Height 5 ft 10 in 08/04/24 11:20 Respiratory Assessment Respiratory Assessment - horse race starter: Respiratory Tract Infection Hx - horse race starter Hx Respiratory Tract Infection No 07/01/24 13:37 STOP Sleep Apnea STOP Sleep Apnea - horse race starter: STOP Sleep Apnea - horse race starter Hx Hypertension Yes: CONTROLLED WITH MEDS 07/01/24 13:37 Hx Sleep Apnea Yes 07/01/24 13:37 CPAP No 07/01/24 13:37 BIPAP No 07/01/24 13:37 Do you snore loudly (louder than talking or can be heard Do you often feel tired/ fatigued/ sleepy during daytime? Has anyone observed you stop breathing during sleep? STOP Results QUESTION #5 FULL TEXT : Do you snore loudly (louder than talking or can be heard through closeddoors)? Tobacco Use History Tobacco Use History - horse race starter: Tobacco Use History - horse race starter Tobacco Use Smoking Status Never smoker 07/01/24 13:37 Hx Tobacco Use No 07/01/24 13:37 Years Smoking Packs Smoked per Day Smoking Cessation Date was within the last 15 years Hx Smoking Cessation Date Hx Smoking Cessation Counseling Hematologic Medial History Hematologic Hx - horse race starter: Hematologic Medical Hx - tanning solution maker Hx of Blood Transfusion Hx of Transfusion in last 3 Months Date of Last Transfusion (if within last 3 months) Ever experience any problems with transfusion(s)? Specify any problems Hx of Preganancy in last 3 Months Nurse Filling Out Transfusion & Questions: Date: Time: Patient unable to answer at this time (ie. confused, unrespo /Reproduction History /Reproductive History - horse race starter: /Reproductive Hx- horse race starter Hx Now Gestational Age (in weeks): EDC: Hx Hx Para Hx Section SAB No 07/01/24 13:37 PFS Medical History History of acute renal failure Family history of malignant neoplasm of colon in first degree relative diagnosedwhen younger than 60 years of age Family history of colon cancer in father Osteoarthritis of left knee Left knee pain Medical non-compliance Metabolic encephalopathy Abnormal lithium level in blood History of bipolar disorder Obesity, morbid, BMI 50 or higher Wears glasses Headache Loss of consciousness Pain Primary osteoarthritis, right shoulder Primary osteoarthritis, left shoulder Left shoulder pain Right shoulder pain Dizziness Degenerative joint disease (DJD) of hip Cancer Bipolar disorder Depression Anxiety Ambulates with cane Arthritis High cholesterol Back pain Injury of head and neck Hx of reactive hypoglycemia Non-smoker CPAP (continuous positive airway pressure) dependence Shortness of breath on exertion Chronic cough History of pain when walking History of edema Hypertension Cardiology follow-up encounter History of echocardiogram History of stress test Osteoarthritis of right hip Chest pain SOBOE (shortness of breath on exertion) Obesity Iliotibial band syndrome affecting left lower leg Disc degeneration, lumbar Osteoarthritis of right hip Breast mass, left Chronic pain of both knees Cataract, left eye Essential (primary) hypertension Body mass index (BMI) 35 or more Obesity Anxiety and depression RAY (obstructive sleep apnea) Palpitations Hyperlipidemia Home Medications ?Medication ?Instructions ?Recorded ?Last Taken ?Type multivitamin (Daily Multi-Vitamin 1 tab PO DAILY suppl ement 12/01/19 01/12/23 History tablet) lamotrigine 200 mg tablet 400 mg PO QHS skin 08/02/20 03/13/24 History acetaminophen 500 mg capsule 500 mg PO Q6H PRN Pain 08/31/23 05:00 History bupropion HCl 150 mg tablet,12 hr 150 mg PO BID depres tl 12/03/21 03/16/22 History sustained-release (Wellbutrin SR) ascorbic acid (vitamin C) 500 mg 1,000 mg PO DAILY vit butt 05/27/22 Unknown History tablet (Vitamin C) cholecalciferol (vitamin D3) 25 2,000 unit PO DAILY vi tamin 05/27/22 12/01/23 History mcg (1,000 unit) chewable tablet (Vitamin D3) ramipril 10 mg capsule 10 mg PO BID bp 05/27/2210/19 History tamsulosin 0.4 mg capsule 0.4 mg PO Q24H prostate 10/2603/13/24 History gabapentin 800 mg tablet 800 mg PO QHS pain 02/25/23 03/13/24 History hydrochlorothiazide 25 mg tablet 25 mg PO DAILY Unknown History omeprazole 40 mg capsule,delayed 40 mg PO DAILY 03/13/24 History release carvedilol 12.5 mg tablet 12.5 mg PO BID 03/16/2410/19 History amlodipine 5 mg tablet 5 mg PO QHS blood pressure # 90 tabs 04/01/24 Unknown Rx ezetimibe 10 mg tablet (Zetia) 10 mg PO DAILY choleste rol #90 tabs 04/01/24 05/02/24 Rx flurbiprofen 100 mg tablet 100 mg PO TID PRN pain #90 tabs 06/13/24 Unknown Rx perphenazine 4 mg tablet 8 mg PO QHS 06/13/24 Unknown History tramadol 50 mg tablet 100 mg PO BID PRN pain 06/13 Unknown History Allergy/AdvReac Type Severity Reaction Status Date / Time atorvastatin (From Lipitor) Allergy Muscle Verified 08/04/24 11:24 soreness, Tremors escitalopram (From Lexapro) Allergy Headache Verified 08/04/24 11:24 Penicillins Allergy Hives Verified 08/04/24 11:24 pravastatin (From Pravachol) Allergy Muscle Verified 08/04/24 11:24 soreness, Tremors tolmetin Allergy Anaphylaxis Verified 08/04/24 11:24 meloxicam AdvReac Other Verified 08/04/24 11:24 Family History Mother Breast cancer Myocardial infarction Hypertension Father Colon cancer at 60yrs. Dx in 50's. Myocardial infarction Surgical History H/O total hip arthroplasty History of total left hip arthroplasty Hx of exploratory laparotomy Hx of release of tendon Hx of arthroscopy of left knee Hx of arthroscopy of right knee History of carpal tunnel surgery of right wrist Hx of arthroscopy of shoulder History of open reduction and internal fixation (ORIF) procedure Hx of right cataract extraction S/P partial mastectomy History of left hip replacement (01/2017) H/O rotator cuff surgery History of left heart catheterization (02/2013) Social History household members: none current occupational status: retired 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 08/15/24 0726 > Date _ Byron Tiwari MD Cosigner Signature: Date CC: ~ Signed [facility]04-10-2025 Evaluation note* Diagnosis Onset Date Resolution Status Admit Date Bilateral primary osteoarthr itis of knee acute August 04, 2024 11:19am Lower extremity edema acute September 23, 2024 11:01am Dizziness chronic September 23, 2024 11:01am Hyperlipidemia chronic September 23, 2024 11:01am Hypertension chronic September 23 11:01am [facility] Work Phone: 1(900) 911-645803-25-2025 Evaluation note* Diagnosis Onset Date Resolution Status Admit Date Bilateral primary osteoarthr itis of knee acute July 19, 2024 12:59pm Bilateral primary osteoarthr itis of knee acute July 28, 2024 10:29am Bilateral primary osteoarthr itis of knee acute August 04, 2024 11:19am Lower extremity edema acute September 23, 2024 11:01am Dizziness chronic September 23, 2024 11:01am Hyperlipidemia chronic September 23, 2024 11:01am Hypertension chronic September 23 11:01am [facility] Work Phone: 1(188) 256-478603-12-2025 Procedure note [facility] Pulmonary Services/Neurology [address] [place] [address] MR#: [id number] Acct: [id number] Name: MELIZA EASTMAN Rep #:[id number] : 1965 59 From: Gladis Bucio MD Referring Dr: Jean-Paul Estrada MD atus: REG CLI Location: PSN Date: 07/06/24 Sex: M C NCS and/or EMG Patient Report Ordering Doctor: Jean-Paul Estrada DATE OF SERVICE: 07/06/24 Meliza presents with complaints of numbness and tingling, primarily in the lefthand. Electrodiagnostic findings: Right median motor nerve demonstrates prolonged latency with normal amplitude and conduction velocity. Left median motor nerve demonstrates prolonged latency with normal amplitude and conduction velocity. Ulnar motor response is normal bilaterally. Normal median and ulnar F?waves. Prolonged median sensory latency at the wrist bilaterally. Normal ulnar and radial sensory responses. Needle EMG testing was performed in the upper limbs. All muscles tested showed no evidence of denervation with normal motor unit action potentials. Electrodiagnostic impression: This is an abnormal study in the upper limbs 1. Electrodiagnostic findings suggestive of bilateral median mononeuropathy. This is consistent with a mild bilateral carpal tunnel syndrome. Multi Select Codes Neurology Neurology Interp Codes: 48804-96 Musc test done w/n test comp (interp) (2) and 92895-40 Nrv cndj test 9-10 studies (interp) 07/06/24 1403 D> Date _ Gladis Bucio MD CC: Dr. Gladis Bucio MD; Dr. Jj Eason MD; Dr. Jean-Paul Estrada MD ~ Date Dictated: 07/06/24 1400 Date Transcribed: 07/06/241399 Trip Follower: TAZ Signed [facility]02-10-2025 Consult note Author Byron Tiwari [facility] Note Date/Time August 15, 2024 9:5 1am [facility] Medical Records Department [address] [facility] [place] [address] Anesthesia Postop Eval II 08/15/24 0936 MR#: [id number] Acct: [id number] Name: MELIZA EASTMAN Rep #:[id number] : 1965 59 From: Byron Tiwari MD PCP: Dr. Jj Eason MD Status:[facility] Y Race: C Location: [place] [address] Anesthesia Postop Eval I Sum Postop Eval Completion status Anesthesia document: Postop Eval 1 completed: Yes Anesthesia Postop Eval I Summary Anesthesia Postop Eval I Summary: Anesthesia Postop Eval I: Assessment Summary Airway patent Yes 08/15/24 08:50 SYNOPTIC [email or web address].BHOS Spontaneous unlabored Yes 08/15/24 08:50 SYNOPTIC METEOROLOGIST.BHOS respirations Mental status Awake,Calm 08/15/24 08:50 SYNOPTIC METEOROLOGIST.BHOS nausea No 08/15/24 08:50 SYNOPTIC METEOROLOGIST.BHOS Vomiting No 08/15/24 08:50 SYNOPTIC METEOROLOGIST.BHOS Anesthesia Postop Eval I: Fluid Summary Crystalloid volume administer 0 08/15/24 08:50 SYNOPTIC METEOROLOGIST.BHOS (ml) Colloids volume administered ( ml) Blood Product volume administered (ml) Total IV fluid infused 0 08/15/24 08:50 SYNOPTIC METEOROLOGIST.BHOS Anesthesia Postop Eval I: Summary Notes Anesthesia Complication No 08/15/24 08:50 SYNOPTIC METEOROLOGIST.BHOS Anesthesia Complication Comment: Post-operative progress note Anesthesia: Postop Eval II Evaluation Mental status: Awake Pain Level: 0 nausea: No Vomiting: No 08/15/2436 <Electronically signed by Byron Tiwari MD > Date _ Byron Hdz Signature: Date CC: ~ Signed [facility] Work Phone: 1(524) 905-805302-06-2025 Evaluation note* Diagnosis Onset Date Resolution Status Admit Date Bilateral primary osteoarthritis of knee acute June 02, 2024 9:25am Abnormal gait acute June 132024 9:06am Calcification of basal ganglia acute June 13, 2024 9:06am Cervical myelopathy acute 2024 9:06am Cervicalgia acute May 9:06am Intracranial calcification acute June 13, 2024 9:06am Mild cognitive impairment acute June 13, 2024 9:06am Paresthesias acute May 9:06am Tension headache acute June 13, 2024 9:06am [facility] Work Phone: [phone]) 973-367002-06-2025 Evaluation note* Diagnosis Onset Date Resolution Status Admit Date Bilateral primary osteoarthritis of knee acute June 02, 2024 9:25am Abnormal gait acute June 132024 9:06am Calcification of basal ganglia acute June 13, 2024 9:06am Cervical myelopathy acute 2024 9:06am Cervicalgia acute May 9:06am Intracranial calcification acute June 13, 2024 9:06am Mild cognitive impairment acute June 13, 2024 9:06am Paresthesias acute May 9:06am Tension headache acute June 13, 2024 9:06am Bilateral primary osteoarthritis of knee acute June 12:59pm Bilateral primary osteoarthritis of knee acute July 10:29am Bilateral primary osteoarthritis of knee acute July 11:19am [facility] Work Phone: 1(215) 302-994005-06-2024 Procedure [facility] 08-11-2023 History of Present illness Narrative* Chapo Cortez MD - 08/11/2023 2:56 PM EDT SPINE SURGERY NEW PATIENT This is an in-person visit. PCP: Jj Eason MD REFERRING PROVIDER: Self-referred SUBJECTIVE HISTORY OF PRESENT ILLNESS: Meliza Eastman is a 58 year old male presenting alone. CHIEF COMPLAINT: Neck pain, worsening balance and impaired dexterity PRECIPITATING EVENT: None DURATION OF SYMPTOMS: Progressive for many years, worsened in last year Meliza presents with complaints of neck pain and stiffness, loss of ROM, bilateral hand numbness and tingling. Also concerned about worsening imbalance and impaired dexterity over the last year or so. Is here for a second opinion from Dr. Cortez- was offered a posterior fusion surgery at an OSH. Neck arthritis and headaches for many years- worsened over the last year Constant neck pain from base of skull to thoracic spine. Loss of ROM Subjective weakness: Yes- but also feels deconditioned and is dealing with knee, hip, and shoulder arthritis and pain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 03/06/23 03:22 Primary Reason for Your Visit: Confusion and kidney dysfunction Attending Provider: Malathi Victor Primary Care Provider: Jj Eason Consulting Providers: Dara Paul Instructions Patient Instructions: Acute Kidney Failure Dc Additional Instructions / Restrictions: DISCHARGE INSTRUCTIONS PLEASE READ *Please take this with you to your next doctors appointment* -You indicated you do not wish to go back on the lithium so this will be held. -Continue your carvedilol, Wellbutrin, Lamictal, amlodipine, Zetia, gabapentin, and your tamsulosin -You can also continue your vitamin C, vitamin D, multivitamin, nystatin swish and swallow, and as needed Tylenol -Because you will not be going back on lithium and your kidney function is back to normal and you can resume your ramipril. Given your ramipril is being resumed would hold off on taking diclofenac and potassium supplementation until repeating blood work through your primary care physician's office and discussingrisks and benefits with your primary care physician -Would recommend lab work (BMP) to check your potassium and kidney function in 2to 3 days through your primary care physician's office. Please call their office upon discharge to obtain order for lab work. -Please call your primary care provider's office upon discharge to schedule a hospital follow up within 1 week. -For any concerning signs or symptoms please call 911 or proceed to the nearest emergency department Discharge Orders/Prescriptions Prescriptions: Continued multivitamin [Daily Multi-Vitamin] Tablet 1 tab PO DAILY Hold Instructions: Order Changed lamotrigine 200 mg tablet 400 mg PO QHS acetaminophen 500 mg capsule 500 mg PO Q6H PRN (Reason: Pain) bupropion HCl [Wellbutrin SR] 150 mg tablet sustained-release 12 hr 150 mg PO BID tamsulosin 0.4 mg capsule 0.4 mg PO Q24H Patient Comments: TAKE 1 CAPSULE BY MOUTH BEFORE BEDTIME ascorbic acid (vitamin C) [Vitamin C] 500 mg Tablet 1,000 mg PO DAILY Hold Instructions: Order Changed ramipril 10 mg Capsule 10 mg PO QHS Hold Instructions: Hold for 5 DAYS cholecalciferol (vitamin D3) [Vitamin D3] 25 mcg (1,000 unit) tablet,chewable 2,000 unit PO DAILY Hold Instructions: Order Changed nystatin 100,000 unit/mL Suspension 500,000 unit PO 4X/DAY Qty: 0 0RF Hold Instructions: Order Changed gabapentin 800 mg tablet 800 mg PO QHS carvedilol 6.25 mg Tablet 6.25 mg PO BID 30 Days Qty: 60 0RF Rx Instructions: Hold for 4 DAYS amlodipine 5 mg tablet 5 mg PO QHS Qty: 90 3RF Hold Instructions: Hold for SBP less than 130 mmHg ezetimibe [Zetia] 10 mg tablet 10 mg PO DAILY Qty: 90 3RF Discontinued lithium carbonate 300 mg capsule 300 mg PO DAILY Hold Instructions: Hold for 4 DAYS diclofenac sodium 75 mg tablet,delayed release (DR/EC) 75 mg PO BID Hold Instructions: Hold for 7 days and check with PCP lithium carbonate 300 mg Capsule 300 mg PO QHS Qty: 0 0RF Hold Instructions: Hold for 4 DAYS potassium chloride [Klor-Con M20] 20 mEq Tablet,Er Particles/Crystals 40 meq PO DAILY 3 Days Qty: 6 0RF Referrals / Follow Up: Jj Eason MD [Primary Care Provider] - Within 1 Week Disposition Disposition (needs filled in before D/C Order can be placed): Home, Self Care 03/07/23 0953<Electronically signed by Malathi Victor MD>Malathi Victor MD CC: Dr. Dara Paul DO; Dr. Jj Eason MD ~ Signed [facility] Work Phone: 1(875) 569-804411-10-2023 Progress note Author Malathi [facility] March 06, 2023 2:03pm Note Date/Time March 06, 2023 7:58am [facility] Medical Records Department [address] [place] [id number] Progress Note - Hospitalist 03/06/23 0752 MR#: [id number] Acct: [id number] Name: MELIZA EASTMAN Rep #:[id number] : 1965 57 From: Malathi Victor MD PCP: Dr. Jj Eason MD Status:ADM IN Location: [place] [address] Hospitalist Note 57-year-old male history of hypertension, morbid obesity, obstructive sleep apnea noncompliant with CPAP, bipolar disorder previously on lithium who presented from [place] ER due to elevated troponin and BNP as well as confusion, nausea, vomiting. He was recently admitted here from 02/25 to 02/28 after being transferred from local long term for severe CARLOS with creatinine of 4.8 and lithium toxicity with level of 2.2 complicated by tremors and acute toxic/metabolic encephalopathy. Reportedly at [place] he had an elevated BNP T of 1500 with troponin of 64 up to 68 and reportedly CARLOS with creatinine of 2.95 as well as some confusion. Patient was transferred to [facility] #Transferred for CARLOS?resolved -Reportedly creatinine was 2.95 at [facility] and it was suspected that patient was dehydrated due to nausea and vomiting -He was given fluids and his KELSEY was held and creatinine this a.m. was 0.86, will stop fluids given improvement and also the elevated BNP at outlying facility want to avoid fluid overload -Unclear if patient had rapid improvement or if there is lab error at outlying facility -He did have CT abdomen and pelvis upon presentation which showed mildly dilatedright lower pole calyx and possibly small hypodense focus in anterior lower right kidney and recommended considering enhanced CT with renal protocol if indicated #Metabolic encephalopathy with hx of bipolar disorder -CT head in [place] ER negative -Suspected at least to be in part due to withdrawal of his medications -UDS pending -Reordered lithium level #Elevated troponin and BNP -Reportedly was 64 and then 68, suspect this was due to decreased clearance given reported creatinine of 2.95 -Patient did not have any chest pain, pressure, palpitations, do not suspect ACS -Suspect it was a proBNP that was elevated, will check BNP at our facility, holdfurther fluids given improvement in CARLOS, echocardiogram also ordered, daily weights, I's and O's #Morbid obesity -BMI 44.5 kg/m? -Complicates treatment, prognosis, outcomes -Recommend weight loss and lifestyle changes #Hypertension -Continue amlodipine #DVT ppx: Heparin subcu Malathi Victor MD Time spent in the patient's overall evaluation,decision-making process, review of diagnostic data, adjustment of management, discussion with other providers, nursing nursing and ancillary staff involved in patient's care documentation, 35minutes 03/06/23 1403 <Electronically signed by Malathi Victor MD> Cosigner Signature (if applicable): CC: ~ Signed [facility] Work Phone: 1(674) 313-210211-10-2023 History and physical note Author Dara Salamanca [facility] March 06, 2023 4:45am Note Date/Time March 06, 2023 2:54am [facility] Medical Records Department [address] [place] [address] H&P Exam - Hospitalist 03/06/23 0237 MR#: [id number] Acct: [id number] Name: MELIZA EASTMAN Rep #:[id number] : 1965 57 From: Dara Cisneros DO PCP: Dr. Jj Eason MD Status:ADM IN Location: [place] [address] HPI - General General Date of Admission: 03/06/23 Date of Service: 03/06/23 Chief Complaint: Confusion, nausea, vomiting and elevated troponin and BNP at [place] HPI Narrative MELIZA EASTMAN, is a 57 M with a past medical history of essential hypertension,hyperlipidemia; with listed allergies to multiple statins, morbid obesity with aBMI of 44.2 this admission, obstructive sleep apnea; noncompliant with CPAP, degenerative disc disease, osteoarthritis with history of left hip replacement in 2016 and chronic pain in both hips and knees causing him to ambulate with a cane, documented penicillin allergy, history of left heart catheterization in 2012; previously evaluated by Dr. Mendez of the cardiology service and bipolar disorder; previously on lithium, medical noncompliance and recent admission herefrom 02/25/2023 to 02/28/2023 after being transferred from a local long term to the ER for complaints of strokelike symptoms and confusion with a fall with him ultimately found to have severe acute kidney injury with a serum creatinine of 4.85 mg/dL and lithium toxicity with a level of 2.2 present on that admission complicated by tremors and acute toxic/metabolic encephalopathy with his urine drug screen also positive for MDMA (ecstasy) with a similar admission treated here in December 2022 who was transferred directly from [facility] by Dr. Tobias [facility] after he was found to have an elevated troponin, elevated proBNP, confusion and vomiting. Mr. Tobias reports that he was confused about what medications to take and not take upon returning home and then became sick with GI upset causing nausea with bilious emesis on day #3 after his discharge so then he called his primary care physician who instructed him to come back to the hospital for further evaluationand treatment. He also admits to [id number] confusion that seems to worsened since he has been off of his lithium. He reports history of coronary artery disease and CA and both his mother and father. He denies associated fever, chest pain, chest pressure, palpitations, shortness of breath, recent falls, headaches or diarrhea but he does admit to chills and 2+ lower extremity edema that is worse since he is left the hospital and has not wears compression stockings for the last 4 days either. 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 In the ER at [place] he was noted to have a CT scan of the head that was unremarkable for acute pathologic changeswith a blood pressure of 180/102 mmHg consistent with uncontrolled hypertension complicated by an elevated BNP-T of 1,596 with a mildly elevated troponin of rising from 64 to 68 and acute kidney injury with a creatinine of 2.95 mg/dL present on admission compounded by clinical evidence of metabolic encephalopathy. He was also noted to have a normal lipase of 37 and a normal TSH of 2.83 with a lithium level of 0.4 and an EKG showed normal sinus rhythm at65 bpm with evidence of left ventricular hypertrophy and no other acute changes. He was then admitted to the PCU for ongoing care for a stay that is expected toextend beyond 48 hours. [facility] Medical History Ambulates with cane Anxiety Anxiety and depression Arthritis Back pain Bipolar disorder Body mass index (BMI) 35 or more Breast mass, left Cancer Cardiology follow-up encounter Cataract, left eye Chest pain Chronic cough Chronic pain of both knees CPAP (continuous positive airway pressure) dependence Degenerative joint disease (DJD) of hip Depression Disc degeneration, lumbar Dizziness Essential (primary) hypertension Headache High cholesterol History of echocardiogram History of edema History of pain when walking History of stress test Hx of reactive hypoglycemia Hyperlipidemia Hypertension Iliotibial band syndrome affecting left lower leg Injury of head and neck Left shoulder pain Loss of consciousness Medical non-compliance Metabolic encephalopathy Non-smoker Obesity Obesity Obesity, morbid, BMI 50 or higher RAY (obstructive sleep apnea) Osteoarthritis of right hip Osteoarthritis of right hip Pain Palpitations Primary osteoarthritis, left shoulder Primary osteoarthritis, right shoulder Right shoulder pain Shortness of breath on exertion SOBOE (shortness of breath on exertion) Wears glasses Home Medications multivitamin (Daily Multi-Vitamin tablet) 1 tab PO DAILY supplement 12/01/19 [History Last Taken 01/12/23] lamotrigine 200 mg tablet 400 mg PO QHS skin 08/02/20 [History Last Taken 03/16/22] acetaminophen 500 mg capsule 500 mg PO Q6H PRN Pain 05/21/21 [History Last Taken 03/16/22] bupropion HCl 150 mg tablet,12 hr sustained-release (Wellbutrin SR) 150 mg PO BID depression 12/03/21 [History Last Taken 03/16/22] diclofenac sodium 75 mg tablet,delayed release 75 mg PO BID pain 12/03/21 [History Last Taken 03/16/22] lithium carbonate 300 mg capsule 300 mg PO DAILY psych 02/05/22 [History Last Taken 03/16/22] ascorbic acid (vitamin C) 500 mg tablet (Vitamin C) 1,000 mg PO DAILY vitamin 05/27/22 [History Last Taken Unknown] cholecalciferol (vitamin D3) 25 mcg (1,000 unit) chewable tablet (Vitamin D3) 2,000 unit PO DAILY vitamin 05/27/22 [History Last Taken Unknown] ramipril 10 mg capsule 10 mg PO QHS bp 05/27/22 [History Last Taken 09/29/22] tamsulosin 0.4 mg capsule 0.4 mg PO Q24H prostate 11/14/22 [History Last Taken Unknown] amlodipine 5 mg tablet 5 mg PO QHS blood pressure #90 tabs 11/25/22 [Rx Last Taken Unknown] ezetimibe 10 mg tablet (Zetia) 10 mg PO DAILY cholesterol #90 tabs 12/02/22 [Rx Last Taken Unknown] lithium carbonate 300 mg capsule 300 mg PO QHS depression #0 caps 01/21/23 [Rx Last Taken Unknown] nystatin 100,000 unit/mL oral suspension 500,000 unit (5 mL) PO 4X/DAY skin #0 mL 01/21/23 [Rx Last Taken Unknown] gabapentin 800 mg tablet 800 mg PO QHS pain 02/25/23 [History Last Taken Unknown] carvedilol 6.25 mg tablet 6.25 mg PO BID 30 days #60 tabs 02/28/23 [Rx Last Taken Unknown] potassium chloride 20 mEq tablet,extended release(part/cryst) (Klor-Con M) 40 meq (2 x 20 mEq) PO DAILY 3 days #6 tabs 02/28/23 [Rx Last Taken Unknown] Allergy/AdvReac Type Severity Reaction Status Date / Time atorvastatin [From Lipitor] Allergy Unknown Verified 02/25/23 15:00 Penicillins Allergy Unknown Verified 02/25/23 15:00 pravastatin [From Pravachol] Allergy Unknown Verified 02/25/23 15:00 tolmetin Allergy Hives Verified 02/25/23 15:00 meloxicam AdvReac Other Verified 02/25/23 15:00 Family History Mother Breast cancer Myocardial infarction Hypertension Father Colon cancer Myocardial infarction Surgical History H/O rotator cuff surgery History of carpal tunnel surgery of right wrist History of left heart catheterization (02/2013) History of left hip replacement (01/2017) History of open reduction and internal fixation (ORIF) procedure History of total left hip arthroplasty Hx of arthroscopy of left knee Hx of arthroscopy of right knee Hx of arthroscopy of shoulder Hx of exploratory laparotomy Hx of release of tendon Hx of right cataract extraction S/P partial mastectomy Social History Smoking Status: Never smoker alcohol intake: never substance use type: does not use caffeine: Yes Type: carbonated beverages Number of servings: 3 what type of physical activity do you participate in: none ROS ROS Narrative Review of systems: Constitutional: Positive for chills but negative for fever Eyes: Patient denies double vision or changes in vision ENT: Patient admits to dry mucous membranes with obviously poor dentition Cardiovascular: Patient denies chest pain or palpitations but he does admit to lower extremity edema Respiratory: Patient denies shortness of breath or cough Gastrointestinal: Positive for nausea and vomiting but negative for abdominal pain or diarrhea Neurological: Positive for intermittent confusion and lightheadedness Psychiatric/behavioral: Patient denies ramirez or agitation Hematologic: Patient denies easy bruisability or easy bleeding Allergy: Patient denies urticaria or other allergy symptoms 14 point review of systems otherwise negative except for positives noted above in HPI. Vital Signs Vital Signs Vital Signs: Weight Weight: 308 lb 3.3 oz Body Mass Index (BMI) 44.1 Physical Exam Const alert and no apparent distress Constitutional Narrative: Patient appears obese. General Appearance: cooperative Orientation / Consciousness: confused HEENT normocephalic, head/scalp atraumatic, hearing grossly normal bilaterally and moist oral mucous membranes HEENT Narrative: Oropharynx dry. Eyes PERRL, EOMs intact bilaterally and conjunctivae normal Neck no lymphadenopathy, supple, no JVD and no carotid bruits Resp normal respiratory effort, no retractions, no use of accessory muscles and clearto auscultation bilaterally Cardio regular rate and regular rhythm GI normal to inspection, nondistended, normoactive bowel sounds, soft to palpation,non-tender and non-distended GI Narrative: Patient is morbidly obese. Extremity Extremity Narrative: Patient has 2+ bilateral lower extremity edema with evidence of dry skin. Skin Skin Narrative: Patient has a tattoo of the sun on his left forearm. Neuro CN's II-XII intact bilaterally, moves all extremities and no focal motor deficits Sensorium / Orientation: awake, alert, oriented to person and oriented to place Speech: speech normal Motor Exam: strength 5/5 throughout Psych affect normal Results Lab / Micro Data 03/06/23 04:05 03/06/23 04:05 Assessment & Plan Assessment/Plan (1) Acute kidney injury: (2) Intractable nausea and vomiting: (3) Metabolic encephalopathy: (4) Medical non-compliance: PLAN: Plan 1. Acute kidney injury; recurrent in the setting of intractable nausea and vomiting -Admit to PCU and start volume resuscitation with normal saline and then recheck BMP in the a.m. to ensure improvement. Check CT scan of the abdomen pelvis to assess for potential causes of his nausea and vomiting and also rule out any potential urinary obstruction. Hold KELSEY-inhibitor and avoid other potentially nephrotoxic agents. Finally, we will consult Dr. Carlson of the nephrology service to see this patient this admission for further recommendations with help appreciated in advance. 2. Metabolic encephalopathy likely due at least in part to abrupt withdrawal ofall of his previous medications secondary to medical noncompliance and uncontrolled bipolar disorder complicating #1 - Head CT done at [facility] was negative for acute pathologic changes. Urine drug screen to make sure patient is not positive for MDMA (ecstasy) this admission. Otherwise we will continue supportive care, restart appropriate medications and monitor for improvement. We will consult PT/OT and case management as this patient may need to transitionto a facility as he seems to be unable to care for himself effectively at this time and the combination of his medical complexity and significant mental illness. 3. Mildly elevated troponins of 64 and 68 likely due to to #1 with diminished kidney function decreasing clearance - Patient denies chest pain, chest pressureor palpitations. Check echocardiogram to evaluate left ventricular ejection fraction with elevated BNP-T. 4. Recent admission here from 02/25/2023 to 02/28/2023 after being transferred from a local long term to the ER with complaints of strokelike symptoms with confusion and fall with patient found to have severe acute kidney injury with a serum creatinine of 4.85 mg/dL and lithium toxicity with a level of 2.2 present on that admission located by clinical evidence of acute toxic/metabolic encephalopathy with his urine drug screen positive for MDMA (ecstasy) - Thankfully, his lithium level this admission is down to 0.4. 5. Morbid obesity with a BMI of 42.7 this admission along with obstructive sleep apnea; with patient noncompliant with CPAP - Weight loss will be recommended. Normal TSH noted. 6. Essential hypertension - Restart amlodipine as previous. We will also give IV hydralazine as needed for systolic blood pressure greater than 160 mmHg. 7. Hyperlipidemia; with documented allergy to multiple statins on Zetia - Checklipid profile this admission. 8. Degenerative disc disease with osteoarthritis of the hips and knees causing him to ambulate with a cane - Stable. 9. DVT prophylaxis - Patient will be started on Lovenox 30 mg subcu daily for renal-adjusted dose in light of #1. Total time: Approximately 75 minutes. Charges/Coding Visit Charges Inpatient E&M: 77410 Init Hosp L3 03/06/23 0445 <Electronically signed by Dara Paul DO> Cosigner Signature (if applicable): CC: Dr. Dara Paul DO; Dr. Jj Eason MD~ Signed [facility] Work Phone: 1(184) 875-274711-04-2023 Consult note Author Cipriano Carlson [facility] February 28, 2023 1:15pm Note Date/Time February 26, 2023 3 :05pm [facility] Medical Records Department [address] [place] [address] Consultation - Nephrology 02/26/23 1454 MR#: [id number] Acct: [id number] Name: MELIZA EASTMAN Rep #:[id number] : 1965 57 From: Dacia sanderson NP-C PCP: Dr. Jj Eason MD Status:ADM IN Location: [place] [address] Assessment & Plan Assessment/Plan (1) Acute kidney injury: (2) Abnormal lithium level in blood: (3) History of bipolar disorder: PLAN: Plan This is a 57-year-old male with past medical history significant for bipolar disorder on lithium, anxiety/depression, hypertension who was brought to the emergency room from local long term for evaluation of altered mental status. Serum creatinine 4.85 and lithium level 2.20 on admission. Patient was started on IV fluids admitted for further evaluation and treatment. He also received IV fluidboluses as blood pressures noted to be low in the emergency room. Today lithiumlevel improved to 2.10, serum creatinine 4.20. Patient is nonoliguric. At thistime there is no acute indication for renal replacement therapy as overall lithium levels and renal function are improving, patient is nonoliguric and not hypervolemic. No hyperkalemia and acid-base is acceptable. Potassium is slightly low at 3.0 and replacement has been ordered. Recommended continue withIV fluids. Patient has normal baseline kidney function, serum creatinine 0.90 on 01/20/2020. To note patient was admitted to the hospital mid December 2022 as he presented to the emergency room with similar complaints, confusion, serum creatinine was 4.82 on admission and by time of hospital discharge had normalized, his lithium level was 1.30 on admission. Patient had renal ultrasound on January 13, 2023 which did not show any hydronephrosis, normal ultrasound of kidneys and urinary bladder. UA on admission no blood, 30 protein; urine for toxicology positive for ecstasy but otherwise negative. Continue holding diclofenac, lithium and ramipril. Further orders forthcoming as hospitalization evolves, thank you for allowing us to participate in the careof Mr. Eastman. Labs ordered for am. HPI Consult Data Date of Consult: 02/26/23 HPI Narrative HPI Narrative: MELIZA EASTMAN, is a 57 M with past medical history significant for bipolar disorder, anxiety and depression, hypertension who was brought to the emergency room yesterday, being transported from local long term where he resides temporarily for evaluation of confusion. Lab work in the emergency room showed creatinine of 4.85, lithium level 2.2, patient was admitted for further evaluation and treatment. Nephrology consulted in view of rising creatinine. Patient is alertto name but having very difficult time recalling recent events and finishing sentences. No acute distress noted. Patient does not recall any recent nausea,vomiting or diarrhea. Reports has been trying to intentionally lose weight by cutting back on portion size. Denies any new medications. PFSH Medical History Ambulates with cane Anxiety Anxiety and depression Arthritis Back pain Bipolar disorder Body mass index (BMI) 35 or more Breast mass, left Cancer Cardiology follow-up encounter Cataract, left eye Chest pain Chronic cough Chronic pain of both knees CPAP (continuous positive airway pressure) dependence Degenerative joint disease (DJD) of hip Depression Disc degeneration, lumbar Dizziness Essential (primary) hypertension Headache High cholesterol History of echocardiogram History of edema History of pain when walking History of stress test Hx of reactive hypoglycemia Hyperlipidemia Hypertension Iliotibial band syndrome affecting left lower leg Injury of head and neck Left shoulder pain Loss of consciousness Non-smoker Obesity Obesity RAY (obstructive sleep apnea) Osteoarthritis of right hip Osteoarthritis of right hip Pain Palpitations Primary osteoarthritis, left shoulder Primary osteoarthritis, right shoulder Right shoulder pain Shortness of breath on exertion SOBOE (shortness of breath on exertion) Wears glasses Home Medications multivitamin (Daily Multi-Vitamin tablet) 1 tab PO DAILY supplement 12/01/19 [History Last Taken 01/12/23] carvedilol 12.5 mg tablet 25 mg PO BID blood pressure 08/02/20 [History Last Taken 09/29/22] lamotrigine 200 mg tablet 400 mg PO QHS skin 08/02/20 [History Last Taken 03/16/22] acetaminophen 500 mg capsule 500 mg PO Q6H PRN Pain 05/21/21 [History Last Taken 03/16/22] bupropion HCl 150 mg tablet,12 hr sustained-release (Wellbutrin SR) 150 mg PO BID depression 12/03/21 [History Last Taken 03/16/22] diclofenac sodium 75 mg tablet,delayed release 75 mg PO BID pain 12/03/21 [History Last Taken 03/16/22] lithium carbonate 300 mg capsule 300 mg PO DAILY psych 02/05/22 [History Last Taken 03/16/22] ascorbic acid (vitamin C) 500 mg tablet (Vitamin C) 1,000 mg PO DAILY vitamin 05/27/22 [History Last Taken Unknown] cholecalciferol (vitamin D3) 25 mcg (1,000 unit) chewable tablet (Vitamin D3) 2,000 unit PO DAILY vitamin 05/27/22 [History Last Taken Unknown] ramipril 10 mg capsule 10 mg PO QHS bp 05/27/22 [History Last Taken 09/29/22] tamsulosin 0.4 mg capsule 0.4 mg PO Q24H prostate 11/14/22 [History Last Taken Unknown] amlodipine 5 mg tablet 5 mg PO QHS blood pressure #90 tabs 11/25/22 [Rx Last Taken Unknown] ezetimibe 10 mg tablet (Zetia) 10 mg PO DAILY cholesterol #90 tabs 12/02/22 [Rx Last Taken Unknown] lithium carbonate 300 mg capsule 300 mg PO QHS depression #0 caps 01/21/23 [Rx Last Taken Unknown] nystatin 100,000 unit/mL oral suspension 500,000 unit (5 mL) PO 4X/DAY skin #0 mL 01/21/23 [Rx Last Taken Unknown] gabapentin 800 mg tablet 800 mg PO QHS pain 02/25/23 [History Last Taken Unknown] hydralazine 25 mg tablet 50 mg PO Q12H blood pressure 02/25/23 [History Last Taken Unknown] Allergy/AdvReac Type Severity Reaction Status Date / Time atorvastatin [From Lipitor] Allergy Unknown Verified 02/25/23 15:00 Penicillins Allergy Unknown Verified 02/25/23 15:00 pravastatin [From Pravachol] Allergy Unknown Verified 02/25/23 15:00 tolmetin Allergy Hives Verified 02/25/23 15:00 meloxicam AdvReac Other Verified 02/25/23 15:00 Family History Mother Breast cancer Myocardial infarction Hypertension Father Colon cancer Myocardial infarction Surgical History H/O rotator cuff surgery History of carpal tunnel surgery of right wrist History of left heart catheterization (02/2013) History of left hip replacement (01/2017) History of open reduction and internal fixation (ORIF) procedure History of total left hip arthroplasty Hx of arthroscopy of left knee Hx of arthroscopy of right knee Hx of arthroscopy of shoulder Hx of exploratory laparotomy Hx of release of tendon Hx of right cataract extraction S/P partial mastectomy Social History Smoking Status: Never smoker alcohol intake: never substance use type: does not use caffeine: Yes Type: carbonated beverages Number of servings: 3 what type of physical activity do you participate in: none ROS ROS Narrative As in HPI and past medical history Physical Exam Narrative Alert and oriented, no apparent distress. Difficult time finishing sentences S1, S2, RRR Lung sounds clear anteriorly and posteriorly. No wheezes, rhonchi or rales noted Abdomen soft, nontender No edema Lab / Micro Data 02/25/23 12:50 02/26/23 06:00 Labs: Laboratory Results - last 24 hr 02/25/23 21:05: Urine Color Minerva, Urine Clarity Clear, Urine pH 5.0, Ur Specific Hardin 1.025, Urine Protein 30 H, Urine Glucose (UA) Normal, Urine Ketones 5 H, Urine Occult Blood Negative, Urine Nitrite Negative, Urine Bilirubin 3 H, Urine Urobilinogen 4 H, Ur Leukocyte Esterase 25 H, Urine RBC 0 SEEN, Urine WBC 0-5 SEEN, Ur Squamous Epith Cells 0 SEEN, Urine Bacteria 0 SEEN,Hyaline Casts 10-25 SEEN, Urine Mucus 0 SEEN, Urine Opiates Screen NEGATIVE, Urine Methadone Screen NEGATIVE, Ur Barbiturates Screen NEGATIVE, Ur Phencyclidine Scrn NEGATIVE, Ur Amphetamines Screen NEGATIVE, MDMA (Ecstasy) Screen POSITIVE H, U Benzodiazepines Scrn NEGATIVE, Urine Cocaine Screen NEGATIVE, U Cannabinoids Screen NEGATIVE, Ur Drug Screen Comment 02/26/23 06:00: Sodium 137, Potassium 3.0 L, Chloride 106, Carbon Dioxide 24.0, Anion Gap 7, BUN 39 H, Creatinine 4.20 H, Estim Creat Clear Calc 20.04, Est GFR (MDRD) Af Amer 19 L, Est GFR (MDRD) Non-Af 16 L, BUN/Creatinine Ratio 9.3 L, Glucose 117 H, Calcium 8.8, Phosphorus 4.3, Magnesium 2.5, [place] 2.10 H* 02/26/23 1505 <Electronically signed by Dacia POLLACK> Cosigner Signature (if applicable): 02/28/23 1315 <Electronically signed by Cipriano Carlson MD> CC: Dr. Jj Eason MD; Dr. Cipriano Carlson MD; Dr. 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 Jj Eason MD Status:ADM IN Location: [place] [address] Objective Data Objective Data Vital Signs: Vital Signs Temp Pulse Resp BP Pulse Ox O2 Del Method 97.6 F L 58 L 18 105/66 98 Room Air 02/27/23 12:11 02/27/23 12:11 02/27/23 12:11 02/27/23 12:11 02/27/23 12:11 02/27/23 12:11 Oxygen Delivery Method Room Air Weight: 134.83 kg Body Mass Index (BMI) 42.6 Intake & Output: Intake and Output for Last 24 Hours 02/25/23 02/26/23 02/27/23 23:59 23:59 23:59 Intake Total 1999 3917.09 / 3917.09 1425 / 1425 Output Total 625 / 625 450 / 450 Balance 1999 3292.09 / 3292.09 975 / 975 Lab / Micro Data 02/25/23 12:50 02/27/23 05:35 Labs: Laboratory Results - last 24 hr 02/27/23 05:35: Sodium 137, Potassium 3.3 L, Chloride 108 H, Carbon Dioxide 23.0, Anion Gap 6, BUN 32 H, Creatinine 2.71 H, Estim Creat Clear Calc 31.05, Est GFR (MDRD) Af Amer 31 L, Est GFR (MDRD) Non-Af 26 L, BUN/Creatinine Ratio 11.8, Glucose 115 H, Calcium 8.5, Total Creatine Kinase 256, [place] 2.00 H* Physical Exam Narrative Alert and oriented, no apparent distress. Difficult time finishing sentences S1, S2, RRR Lung sounds clear anteriorly and posteriorly. No wheezes, rhonchi or rales noted Abdomen soft, nontender No edema Assessment & Plan Assessment/Plan (1) Acute kidney injury: (2) Abnormal lithium level in blood: (3) History of bipolar disorder: PLAN: Plan This is a 57-year-old male with past medical history significant for bipolar disorder on lithium, anxiety/depression, hypertension who was brought to the emergency room from local long term for evaluation of altered mental status. Serum creatinine 4.85 and lithium level 2.20 on admission. Patient was started on IV fluids admitted for further evaluation and treatment. He also received IV fluidboluses as blood pressures noted to be low in the emergency room. - nonoliguric CARLOS with normal baseline creatinine. CARLOS likely prerenal from ATN with concurrent KELSEY-I, NSAID, lithium. SCr 4.8 on admission --> today SCr 2.71. [place] level 2.2 on admission --> today lithium level 2.0. CPK 256. Patient is nonoliguric, appears near euvolemic, making urine and acid-base and potassiumacceptable, therefore no acute indication for renal replacement therapy. Patient has normal baseline kidney function, serum creatinine 0.90 on 01/20/2020.Renal ultrasound on 01/13/23 did not show any hydronephrosis, normal ultrasound of kidneys and urinary bladder. UA on admission no blood, 30 protein; urine fortoxicology positive for ecstasy but otherwise negative. Continue holding diclofenac, lithium and ramipril. - bps still on low side, will hold norvasc for now. Decrease coreg (holding parameters added). Continue IVF as ordered for another day. - discussed nephrology plan with Dr. Sung 02/27/23 7816 <Electronically signed by Dacia POLLACK> Cosigner Signature (if applicable): 02/28/23 1315 <Electronically signed by Cipriano Carlson MD> CC: ~ Signed [facility] Work Phone: 1(953) 370-511111-04-2023 Progress note Author Cipriano Carlson [facility] February 28, 2023 1:03pm Note Date/Time February 28, 2023 1 :03pm [facility] Medical Records Department [address] [place] [address] Progress Note - Nephrology 02/28/23 1301 MR#: [id number] Acct: [id number] Name: MELIZA EASTMAN Rep #:[id number] : 1965 57 From: Cipriano joy MD PCP: Dr. Jj Eason MD Status:ADM IN Location: MS3 [id number] Subjective Subjective No new complaints today Objective Data Objective Data Vital Signs: Vital Signs Temp Pulse Resp BP Pulse Ox O2 Del Method 98.3 F 68 18 120/74 98 Room Air 02/28/23 10:00 02/28/23 10:00 02/28/23 10:00 02/28/23 10:00 02/28/23 10:00 02/28/23 10:00 Oxygen Delivery Method Room Air Weight: 134.83 kg Body Mass Index (BMI) 42.6 Intake & Output: Intake and Output for Last 24 Hours 02/26/23 02/27/23 02/28/23 23:59 23:59 23:59 Intake Total 3917.09 / 3917.09 1425 / 1425 1291.25 / 1291.25 Output Total 625 / 625 1050 / 1050 775 / 775 Balance 3292.09 / 3292.09 375 / 375 516.25 / 516.25 Lab / Micro Data 02/25/23 12:50 02/28/23 05:38 Labs: Laboratory Results - last 24 hr 02/28/23 05:38: Sodium 138, Potassium 3.2 L, Chloride 108 H, Carbon Dioxide 25.0, Anion Gap 5, BUN 23 H, Creatinine 1.87 H, Estim Creat Clear Calc 45.00, Est GFR (MDRD) Af Amer 48 L, Est GFR (MDRD) Non-Af 40 L, BUN/Creatinine Ratio 12.3, Glucose 125 H, Calcium 9.0 Physical Exam Narrative Alert and oriented, no apparent distress. Difficult time finishing sentences S1, S2, RRR Lung sounds clear anteriorly and posteriorly. No wheezes, rhonchi or rales noted Abdomen soft, nontender No edema Assessment & Plan Assessment/Plan (1) Acute kidney injury: (2) Abnormal lithium level in blood: (3) History of bipolar disorder: PLAN: Plan This is a 57-year-old male with past medical history significant for bipolar disorder on lithium, anxiety/depression, hypertension who was brought to the emergency room from local long term for evaluation of altered mental status. Serum creatinine 4.85 and lithium level 2.20 on admission. Patient was started on IV fluids admitted for further evaluation and treatment. He also received IV fluidboluses as blood pressures noted to be low in the emergency room. - nonoliguric CARLOS with normal baseline creatinine. CARLOS likely prerenal from ATN with concurrent KELSEY-I, NSAID, lithium. SCr 4.8 on admission --> down to 1.7. [place] level 2.2 on admission --> 02/27/23 lithium level 2.0. CPK 256. Patient is nonoliguric, appears near euvolemic, making urine and acid-base and potassiumacceptable. Patient has normal baseline kidney function, serum creatinine 0.90 on 01/19/23. Renal ultrasound on 01/13/23 did not show any hydronephrosis, normal ultrasound of kidneys and urinary bladder. UA on admission no blood, 30 protein; urine for toxicology positive for ecstasy but otherwise negative. Continue holding diclofenac, lithium and ramipril. Discussed with hospitalist. Medically stable otherwise. From a nephrology standpoint, no further work-up needed since creatinine is improving. He will need a BMP in a week. With respect to lithium, this is for history of bipolar disease. Needs to be evaluated by psychiatry before any medications are changed. I would hold lithium for another 3 to 4 days and resume at previous dose once creatinine is improved back to baseline. 02/28/23 1303 <Electronically signed by Cipriano Carlson MD> Cosigner Signature (if applicable): CC: ~ Signed [facility] Work Phone: 1(110) [phone] Discharge summary Author Jacob Sung [facility] February 28, 2023 11:18am Note Date/Time February 28, 2023 1 1:18am [facility] Medical Records Department [address] [place] [address] Discharge Summary 02/28/23 1113 MR#: [id number] Acct: [id number] Name: MELIZA EASTMAN A Rep #:[id number] : 1965 57 From: Jacob Torres PCP: Dr. Jj Eason MD Status:[id number] Date of Admission: 02/25/23 Date of Discharge: 02/28/23 Primary Care Physician: Dr. Jj Eason MD Consultations 02/26/23 08:11 Consult: Nephrology Routine Consulting Provider: Cipriano Carlson Reason for Consult: CARLOS, [place] toxicity EMERGENT Consult: No MD Notified: Yes Date Notified: 02/26/23 Time Notified: 08:12 Method of Notification: Verbal Reason For Visit: CARLOS Diagnosis Discharge Diagnosis (1) Acute kidney injury: Status: Acute Code(s): N17.9 - Acute kidney failure, unspecified Plan 1. Acute kidney injury-patient: Patient is admitted to [facility] floor. Patient has normal baseline creatinine 0.95 on 01/20/2020. Potassium slightly low at 3.0and replacement ordered. Desizing Pad Operator consulted. Had kidney ultrasound which reported normal on December 1922. UA on admission so no blood 30 protein. U tox positive for ecstasy. Patient is on IV fluid 0.45 normal saline with potassium supplement 200 mL/h. Hold nephrotoxic medication including diclofenac, ramipril and lithium. 02/27: Hypokalemia potassium 3.3. Creatinine profile better, BUN/creatinine 32/2.71. Positive fluid balance 6 L as documented. Patient is voiding spontaneously, charting may be underestimated, total 625 ml on 02/26 and 450 milstoday since midnight. CPK 256. Patient is nonoliguric. No acute indication of renal replacement therapy. 02/28: Mild hypokalemia, potassium 3.2. Potassium supplementation ordered serum magnesium and phosphorus level are normal.BUN/creatinine improving 23/1.87 today. Discussed with the production specialist. CARLOS is getting better. Advised BMP, serum magnesium and phosphorus and serum lithium level in 1 week follow with PCP. Follow-up with production specialist in about 2 weeks. #2 elevated lithium level with lithium toxicity: Unclear whether patient is confusion, tremors is due to lithium toxicity. [place] is discontinued for now. Monitor lithium level. Patient's lithium will be held, lithium level will be repeated tomorrow 02/26: Patient EKG shows sinus bradycardia 58/min, first-degree block, chronic LBBB. QTc 482 ms on 02/25 EKG. 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 Previous EKG on 17 January normal sinus rhythm, 66/min QTc 494 ms, minimal LVH with LBBB. 02/27: Repeat EKG normal sinus rhythm at 61 bpm, first-degree AV block. QTc 477 ms. LBBB. [place] level is 1.0. #3 Acute toxic/metabolic encephalopathy, multiple etiologies secondary to lithium toxicity and CARLOS: Treat underlying disorder. Continue IV fluid #4 bipolar disorder-patient will remain on his medications except for his lithium Patient being on lithium as the risk of going to [place] without lithium thereforeadvised to hold for 4 days and follow-up with psychiatrist Dr. Chan and resume as per his instruction I am thinking that patient might have registrant kind of bipolar which might not responded with other first or second line medication forbipolar medication and perhaps only controlled with lithium. #5 hyperlipidemia-patient is on Zetia #6 hypertension-patient's ramipril will be held at this time due to his elevatedkidney functions, blood pressure will be monitored 02/27: Blood pressure on the lower side therefore Coreg dose decreased 6.25 mg twice daily with holding parameters. Continue IV fluid. #7 obstructive sleep apnea-patient does not use CPAP, he is noncompliant Discharge medication reconciliation done. Discharge follow-up instructions completed. Discharge process discussed with the patient and all questions wereanswered to patient's satisfaction. Follow with PCP in 1 to 2 weeks Total time spent, exact 35 minutes on discharge meds reconciliation, examination, coordination of care with nurses and ancillary staff, review of imaging and blood test and discussion with the patient on follow-up instructions. Medications at Discharge Home Medications multivitamin (Daily Multi-Vitamin tablet) 1 tab PO DAILY supplement 12/01/19 lamotrigine 200 mg tablet 400 mg PO QHS skin 08/02/20 acetaminophen 500 mg capsule 500 mg PO Q6H PRN Pain 05/21/21 bupropion HCl 150 mg tablet,12 hr sustained-release (Wellbutrin SR) 150 mg PO BID depression 12/03/21 diclofenac sodium 75 mg tablet,delayed release 75 mg PO BID pain 12/03/21 lithium carbonate 300 mg capsule 300 mg PO DAILY psych 02/05/22 ascorbic acid (vitamin C) 500 mg tablet (Vitamin C) 1,000 mg PO DAILY vitamin 05/27/22 cholecalciferol (vitamin D3) 25 mcg (1,000 unit) chewable tablet (Vitamin D3) 2,000 unit PO DAILY vitamin 05/27/22 ramipril 10 mg capsule 10 mg PO QHS bp 05/27/22 tamsulosin 0.4 mg capsule 0.4 mg PO Q24H prostate 11/14/22 amlodipine 5 mg tablet 5 mg PO QHS blood pressure #90 tabs 11/25/22 ezetimibe 10 mg tablet (Zetia) 10 mg PO DAILY cholesterol #90 tabs 12/02/22 lithium carbonate 300 mg capsule 300 mg PO QHS depression #0 caps 01/21/23 nystatin 100,000 unit/mL oral suspension 500,000 unit (5 mL) PO 4X/DAY skin #0 mL 01/21/23 gabapentin 800 mg tablet 800 mg PO QHS pain 02/25/23 carvedilol 6.25 mg tablet 6.25 mg PO BID 30 days #60 tabs 02/28/23 potassium chloride 20 mEq tablet,extended release(part/cryst) (Klor-Con M) 40 meq (2 x 20 mEq) PO DAILY 3 days #6 tabs 02/28/23 Physical Exam Narrative Seen and examined. Patient states his tremors are better he has good appetite. Denies nausea vomiting or diarrhea. No abdominal pain. [place] level better. Urine color isclear He is voiding urine spontaneously. Physical exam General: Alert, Oriented x3, Cooperative, morbid obesity BMI 42.7 kg/m? HEENT: Atraumatic, PERRLA, EOMI, Normocephalic Oral: No Gingival or Mucosal Lesions/ Ulcerations Neck: Supple, No JVD, Negative Carotid Bruits Lungs: Air entry diminished in bilateral lung bases. No crepitation/rhonchi Cardiovascular: Regular rate, Regular Rhythm, Normal S1, Normal S2, No murmurs Abdomen: Bowel Sounds Present, Soft, Non Tender, Non-Distended : Voiding clear urine. No renal angle tenderness. No suprapubic tenderness. No dysuria. Extremities: Mild leg swelling probably from IV fluid. IV fluid discontinued, Capillary Refill Less than 3 Seconds Skin: No rashes, No breakdown Musculoskeletal: No Tenderness to Palpation of Joints or Extremities Neurological: Cranial nerves II-XII grossly intact, DTR 2+/4. Tremors predominantly in upper extremities. No focal weakness or gross change in sensation. Psych/Mental Status: Flat affect. Weight / BMI Weight Weight: 297 lb 4 oz Body Mass Index (BMI) 42.6 ABG / Lab / Microbiology Data 02/25/23 12:50 02/28/23 05:38 Laboratory: Laboratory Results - last 24 hr 02/27/23 05:35: [place] 2.00 H* 02/28/23 05:38: Sodium 138, Potassium 3.2 L, Chloride 108 H, Carbon Dioxide 25.0, Anion Gap 5, BUN 23 H, Creatinine 1.87 H, Estim Creat Clear Calc 45.00, Est GFR (MDRD) Af Amer 48 L, Est GFR (MDRD) Non-Af 40 L, BUN/Creatinine Ratio 12.3, Glucose 125 H, Calcium 9.0 Meaningful Use Info Meaningful Use Diagnoses (Choose all that apply): None applicable Discharge Plan Admission Admit Date/Time: 02/25/23 14:57 Primary Reason for Your Visit: CARLOS probably due to lithium toxicity Attending Provider: Jacob Sung Primary Care Provider: Jj Eason Consulting Providers: Aneudy Caes; Cipriano Carlson Instructions Additional Instructions / Restrictions: Advised BMP, magnesium and phosphorus and serum lithium level in 5 days and follow with PCP Discharge Orders/Prescriptions Prescriptions: New carvedilol 6.25 mg Tablet 6.25 mg PO BID 30 Days Qty: 60 0RF Rx Instructions: Hold for 4 DAYS potassium chloride [Klor-Con M20] 20 mEq Tablet,Er Particles/Crystals 40 meq PO DAILY 3 Days Qty: 6 0RF Continued multivitamin [Daily Multi-Vitamin] Tablet 1 tab PO DAILY Hold Instructions: Order Changed lamotrigine 200 mg tablet 400 mg PO QHS acetaminophen 500 mg capsule 500 mg PO Q6H PRN (Reason: Pain) bupropion HCl [Wellbutrin SR] 150 mg tablet sustained-release 12 hr 150 mg PO BID tamsulosin 0.4 mg capsule 0.4 mg PO Q24H Patient Comments: TAKE 1 CAPSULE BY MOUTH BEFORE BEDTIME ascorbic acid (vitamin C) [Vitamin C] 500 mg Tablet 1,000 mg PO DAILY Hold Instructions: Order Changed cholecalciferol (vitamin D3) [Vitamin D3] 25 mcg (1,000 unit) tablet,chewable 2,000 unit PO DAILY Hold Instructions: Order Changed nystatin 100,000 unit/mL Suspension 500,000 unit PO 4X/DAY Qty: 0 0RF Hold Instructions: Order Changed gabapentin 800 mg tablet 800 mg PO QHS ezetimibe [Zetia] 10 mg tablet 10 mg PO DAILY Qty: 90 3RF Held lithium carbonate 300 mg capsule 300 mg PO DAILY Hold Instructions: Hold for 4 DAYS diclofenac sodium 75 mg tablet,delayed release (DR/EC) 75 mg PO BID Hold Instructions: Hold for 7 days and check with PCP ramipril 10 mg Capsule 10 mg PO QHS Hold Instructions: Hold for 5 DAYS lithium carbonate 300 mg Capsule 300 mg PO QHS Qty: 0 0RF Hold Instructions: Hold for 4 DAYS amlodipine 5 mg tablet 5 mg PO QHS Qty: 90 3RF Hold Instructions: Hold for SBP less than 130 mmHg Discontinued carvedilol 12.5 mg tablet 25 mg PO BID hydralazine 25 mg tablet 50 mg PO Q12H Referrals / Follow Up: Jj Eason MD [Primary Care Provider] - Cipriano Carlson MD [Med Staff - Consulting] - Within 2 Weeks (With follow-up for BMP and lithium level) Kiran Chan DO [Med Staff - Chinese Language Professor] - Within 1 Week (History of bipolar and on lithium carbonate. Had lithium toxicity) Disposition Disposition (needs filled in before D/C Order can be placed): Home, Self Care Charges/Coding Visit Charges Inpatient E&M: 07857 Disch Hosp >30min 02/28/23 1118 <Electronically signed by Jacob Sung MD> Cosigner Signature (if applicable): CC: Dr. Jj Eason MD; Dr. Jacob Sung MD~ Signed [facility] Work Phone: 1(554) 492-437211-04-2023 Discharge summary Author Jacob Sung [facility] February 28, 2023 11:13am Note Date/Time February 28, 2023 1 1:12am [facility] Medical Records Department [address] [place] [address] Instructions for Home/Discharge Instructions 02/28/23 1004 MR#: [id number] Acct: [id number] Name: MELIZA EASTMAN Rep #:[id number] : 1965 57 From: Jacob Torres PCP: Dr. Jj Eason MD Status:ADM IN Discharge Instructions Follow Up Care Test Results: Test results from this visit will be discussed in further detail at your follow- up appointment, if applicable. Discharge Plan Admission Admit Date/Time: 02/25/23 14:57 Primary Reason for Your Visit: CARLOS probably due to lithium toxicity Attending Provider: Jacob Sung Primary Care Provider: Jj Eason Consulting Providers: Aneudy Case; Cipriano Carlson Instructions Additional Instructions / Restrictions: Advised BMP, magnesium and phosphorus and serum lithium level in 5 days and follow with PCP Discharge Orders/Prescriptions Prescriptions: New carvedilol 6.25 mg Tablet 6.25 mg PO BID 30 Days Qty: 60 0RF Rx Instructions: Hold for 4 DAYS potassium chloride [Klor-Con M20] 20 mEq Tablet,Er Particles/Crystals 40 meq PO DAILY 3 Days Qty: 6 0RF Continued multivitamin [Daily Multi-Vitamin] Tablet 1 tab PO DAILY Hold Instructions: Order Changed lamotrigine 200 mg tablet 400 mg PO QHS acetaminophen 500 mg capsule 500 mg PO Q6H PRN (Reason: Pain) bupropion HCl [Wellbutrin SR] 150 mg tablet sustained-release 12 hr 150 mg PO BID tamsulosin 0.4 mg capsule 0.4 mg PO Q24H Patient Comments: TAKE 1 CAPSULE BY MOUTH BEFORE BEDTIME ascorbic acid (vitamin C) [Vitamin C] 500 mg Tablet 1,000 mg PO DAILY Hold Instructions: Order Changed cholecalciferol (vitamin D3) [Vitamin D3] 25 mcg (1,000 unit) tablet,chewable 2,000 unit PO DAILY Hold Instructions: Order Changed nystatin 100,000 unit/mL Suspension 500,000 unit PO 4X/DAY Qty: 0 0RF Hold Instructions: Order Changed gabapentin 800 mg tablet 800 mg PO QHS ezetimibe [Zetia] 10 mg tablet 10 mg PO DAILY Qty: 90 3RF Held lithium carbonate 300 mg capsule 300 mg PO DAILY Hold Instructions: Hold for 4 DAYS diclofenac sodium 75 mg tablet,delayed release (DR/EC) 75 mg PO BID Hold Instructions: Hold for 7 days and check with PCP ramipril 10 mg Capsule 10 mg PO QHS Hold Instructions: Hold for 5 DAYS lithium carbonate 300 mg Capsule 300 mg PO QHS Qty: 0 0RF Hold Instructions: Hold for 4 DAYS amlodipine 5 mg tablet 5 mg PO QHS Qty: 90 3RF Hold Instructions: Hold for SBP less than 130 mmHg Discontinued carvedilol 12.5 mg tablet 25 mg PO BID hydralazine 25 mg tablet 50 mg PO Q12H Referrals / Follow Up: Jj Eason MD [Primary Care Provider] - Kiran Chan DO [Med Staff - Chinese Language Professor] - Within 1 Week (History of bipolar and on lithium carbonate. Had lithium toxicity) Cipriano Carlson MD [Med Staff - Consulting] - Within 2 Weeks (With follow-up for BMP and lithium level) Disposition Disposition (needs filled in before D/C Order can be placed): Home, Self Care 02/28/23 1113<Electronically signed by Jacob Sung MD>Jacob Sung MD CC: Dr. Jj Eason MD; Dr. Cipriano Carlson MD; Dr. Aneudy Case, DO ~ Signed [facility] Work Phone: 1(383) 123-410611-03-2023 Progress note Author Jacob Pineda [facility] February 27, 2023 4:52pm Note Date/Time February 27, 2023 9 :59am [facility] Medical Records Department [address] [place] [address] Progress Note - Hospitalist 02/27/23 0955 MR#: [id number] Acct: [id number] Name: MELIZA EASTMAN Rep #:[id number] : 1965 57 From: Jacob Torres PCP: Dr. Jj Eason MD Status:ADM IN Location: [place] [address]-1 Reason for Visit Reason for Visit: Diagnoses Acute kidney failure, unspecified (02/25/23) Objective Data Objective Data Vital Signs: Vital Signs Temp Pulse Resp BP Pulse Ox O2 Del Method 97.8 F 60 16 102/58 L 97 Room Air 02/27/23 02:34 02/27/23 02:34 02/27/23 02:34 02/27/23 02:34 02/27/23 02:34 02/27/23 02:34 Oxygen Delivery Method Room Air Weight: 297 lb 4 oz Body Mass Index (BMI) 42.6 Intake & Output: Intake and Output for Last 24 Hours 02/25/23 02/26/23 02/27/23 23:59 23:59 23:59 Intake Total 1999 3917.09 / 3917.09 1305 / 1305 Output Total 625 / 625 450 / 450 Balance 1999 3292.09 / 329.09 855 / 855 Lab / Micro Data 02/25/23 12:50 02/27/23 05:35 Labs: Laboratory Results - last 24 hr 02/27/23 05:35: Sodium 137, Potassium 3.3 L, Chloride 108 H, Carbon Dioxide 23.0, Anion Gap 6, BUN 32 H, Creatinine 2.71 H, Estim Creat Clear Calc 31.05, Est GFR (MDRD) Af Amer 31 L, Est GFR (MDRD) Non-Af 26 L, BUN/Creatinine Ratio 11.8, Glucose 115 H, Calcium 8.5 Physical Exam Narrative Seen and examined. Patient states he has tremors it is getting better. He has good appetite. Denies nausea vomiting or diarrhea. No abdominal pain. [place] level better. Urine color is clear He is voiding urine. Physical exam General: Alert, Oriented x3, Cooperative, morbid obesity BMI 42.7 kg/m? HEENT: Atraumatic, PERRLA, EOMI, Normocephalic Oral: No Gingival or Mucosal Lesions/ Ulcerations Neck: Supple, No JVD, Negative Carotid Bruits Lungs: Air entry diminished in bilateral lung bases. No crepitation/rhonchi Cardiovascular: Regular rate, Regular Rhythm, Normal S1, Normal S2, No murmurs Abdomen: Bowel Sounds Present, Soft, Non Tender, Non-Distended : Voiding clear urine. No renal angle tenderness. No suprapubic tenderness. No dysuria. Extremities: No edema, Capillary Refill Less than 3 Seconds Skin: No rashes, No breakdown Musculoskeletal: No Tenderness to Palpation of Joints or Extremities Neurological: Cranial nerves II-XII grossly intact, DTR 2+/4. Tremors predominantly in upper extremities. No focal weakness or gross change in sensation. Psych/Mental Status: Flat affect. Assessment & Plan Assessment/Plan (1) Acute kidney injury: PLAN: Plan 1. Acute kidney injury-patient: [facility]. Patient has normal baseline creatinine 0.95 on 01/20/2020. Potassium slightly low at 3.0and replacement ordered. Desizing Pad Operator consulted. Had kidney ultrasound which reported normal on December 1922. UA on admission so no blood 30 protein. U tox positive for ecstasy. Patient is on IV fluid 0.45 normal saline with potassium supplement 200 mL/h. Hold nephrotoxic medication including diclofenac, ramipril and lithium. 02/27: Hypokalemia potassium 3.3. Creatinine profile better, BUN/creatinine 32/2.71. Positive fluid balance 6 L as documented. Patient is voiding spontaneously, charting may be underestimated, total 625 ml on 02/26 and 450 milstoday since midnight. CPK 256. Patient is nonoliguric.\ No acute indication ofrenal replacement therapy. #2 elevated lithium level with lithium toxicity: Unclear whether patient is confusion, tremors is due to lithium toxicity. [place] is discontinued for now. Monitor lithium level. Patient's lithium will be held, lithium level will be repeated tomorrow 02/26: Patient EKG shows sinus bradycardia 58/min, first-degree block, chronic LBBB. QTc 482 ms on 02/25 EKG. 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 Previous EKG on 17 January normal sinus rhythm, 66/min QTc 494 ms, minimal LVH with LBBB. 02/27: Repeat EKG normal sinus rhythm at 61 bpm, first-degree AV block. QTc 477 ms. LBBB. [place] level is 1.0. #3 Acute toxic/metabolic encephalopathy, multiple etiologies secondary to lithium toxicity and CARLOS: Treat underlying disorder. Continue IV fluid #4 bipolar disorder-patient will remain on his medications except for his lithium #5 hyperlipidemia-patient is on Zetia #6 hypertension-patient's ramipril will be held at this time due to his elevatedkidney functions, blood pressure will be monitored 02/27: Blood pressure on the lower side therefore Coreg dose decreased 6.25 mg twice daily with holding parameters. Continue IV fluid. #7 obstructive sleep apnea-patient does not use CPAP, he is noncompliant Charges/Coding Visit Charges Inpatient E&M: 26748 Subs Hosp L2 02/27/232 <Electronically signed by Jacob Sung MD> Cosigner Signature (if applicable): CC: ~ Signed [facility] Work Phone: 1(188) 313-696111-02-2023 Progress note Author Jacob Sung [facility] February 26, 2023 4:17pm Note Date/Time February 26, 2023 8 :09am [facility] Medical Records Department [address] [place] [address] Progress Note - Hospitalist 02/26/23 0807 MR#: [id number] Acct: [id number] Name: MELIZA EASTMAN Rep #:[id number] : 1965 57 From: Jacob Torres PCP: Dr. Jj Eason MD Status:ADM IN Location: [facility]3 [id number] Reason for Visit Reason for Visit: Diagnoses Acute kidney failure, unspecified (02/25/23) Subjective Subjective Follow-up for acute kidney injury and lithium toxicity. Patient patient is on lithium most probably for bipolar. Objective Data Objective Data Vital Signs: Vital Signs Temp Pulse Resp BP Pulse Ox O2 Del Method 97.8 F 60 16 107/58 L 94 Room Air 02/26/23 02:37 02/26/23 02:37 02/26/23 02:37 02/26/23 02:37 02/26/23 02:37 02/26/23 02:37 Oxygen Delivery Method Room Air Weight: 297 lb 4 oz Body Mass Index (BMI) 42.6 Intake & Output: Intake and Output for Last 24 Hours 02/24/23 02/25/23 02/26/23 23:59 23:59 23:59 Intake Total 1999 / 1999 1000 / 1000 Output Total 625 / 625 Balance 1999 375 / 375 Lab / Micro Data 02/25/23 12:50 02/26/23 06:00 Labs: Laboratory Results - last 24 hr 02/25/23 12:50: WBC 11.6 H, RBC 4.12 L, Hgb 12.3 L, Hct 39.0 L, MCV 94.7 H, MCH 29.9, MCHC 31.5 L, RDW Std Deviation 52.2 H, RDW Coeff of Héctor 15.0 H, Plt Count 293, MPV 12.3 H, Immature Gran % (Auto) 1.300 H, Neut % (Auto) 63.7, Lymph % (Auto) 21.3, [place] % (Auto) 10.1 H, Eos % (Auto) 2.7, Baso % (Auto) 0.9, Absolute Neuts (auto) 7.4, Absolute Lymphs (auto) 2.47, Nucleated RBC % 0, Sodium 135 L, Potassium 3.6, Chloride 100, Carbon Dioxide 23.0, Anion Gap 12, BUN 38 H, Creatinine 4.85 H, Estim Creat Clear Calc 17.35, Est GFR (MDRD) Af Amer 16 L, Est GFR (MDRD) Non-Af 13 L, BUN/Creatinine Ratio 7.8 L, Glucose 93, Calcium 9.5,Total Bilirubin 0.70, AST 14 L, ALT 24, Alkaline Phosphatase 81, Total Protein 6.7, Albumin 3.8, Globulin 2.9, Albumin/Globulin Ratio 1.3 02/25/23 13:15: [place] 2.20 H* 02/25/23 21:05: Urine Color Minerva, Urine Clarity Clear, Urine pH 5.0, Ur Specific [place] 1.025, Urine Protein 30 H, Urine Glucose (UA) Normal, Urine Ketones 5 H, Urine Occult Blood Negative, Urine Nitrite Negative, Urine Bilirubin3 H, Urine Urobilinogen 4 H, Ur Leukocyte Esterase 25 H, Urine RBC 0 SEEN, UrineWBC 0-5 SEEN, Ur Squamous Epith Cells 0 SEEN, Urine Bacteria 0 SEEN, Hyaline Casts 10-25 SEEN, Urine Mucus 0 SEEN, Urine Opiates Screen NEGATIVE, Urine Methadone Screen NEGATIVE, Ur Barbiturates Screen NEGATIVE, Ur Phencyclidine Scrn NEGATIVE, Ur Amphetamines Screen NEGATIVE, MDMA (Ecstasy) Screen POSITIVE H, U Benzodiazepines Scrn NEGATIVE, Urine Cocaine Screen NEGATIVE, U CannabinoidsScreen NEGATIVE, Ur Drug Screen Comment 02/26/23 06:00: Sodium 137, Potassium 3.0 L, Chloride 106, Carbon Dioxide 24.0, Anion Gap 7, BUN 39 H, Creatinine 4.20 H, Estim Creat Clear Calc 20.04, Est GFR (MDRD) Af Amer 19 L, Est GFR (MDRD) Non-Af 16 L, BUN/Creatinine Ratio 9.3 L, Glucose 117 H, Calcium 8.8, [place] 2.10 H* Radiography Diagnostic Testing: Radiology Impression Brain CT 02/25/23 13:17 IMPRESSION: No acute abnormality is seen. Stable coarse calcifications seen in both right and left cerebellar hemispheres. Electronically Signed: Daniel Torres MD at 13:34 EDT , Chest X-Ray 02/25/23 13:20 IMPRESSION: No acute abnormality is seen. Electronically Signed: Daniel Torres MD at 13:39 EDT , Physical Exam Narrative Seen and examined. Patient states he has tremors but it is chronic. He has good appetite. Denies nausea vomiting or diarrhea. No abdominal pain. From H&P it seems patient doesnot have history of epilepsy or seizure but he has chronic seizures. When I asked about typical symptoms of seizure-like tightening of the body in extensionlike tonic posture or tonic-clonic posture he was not sure but seems less likely. He is voiding urine. Physical exam General: Alert, Oriented x3, Cooperative, morbid obesity BMI 42.7 kg/m? HEENT: Atraumatic, PERRLA, EOMI, Normocephalic Oral: No Gingival or Mucosal Lesions/ Ulcerations Neck: Supple, No JVD, Negative Carotid Bruits Lungs: Air entry diminished in bilateral lung bases. No crepitation/rhonchi Cardiovascular: Regular rate, Regular Rhythm, Normal S1, Normal S2, No murmurs Abdomen: Bowel Sounds Present, Soft, Non Tender, Non-Distended : Voiding clear urine. No renal angle tenderness. No suprapubic tenderness. Extremities: No edema, Capillary Refill Less than 3 Seconds Skin: No rashes, No breakdown Musculoskeletal: No Tenderness to Palpation of Joints or Extremities Neurological: Cranial nerves II-XII grossly intact, DTR 2+/4. Tremors predominantly in upper extremities. No focal weakness or gross change in sensation. Psych/Mental Status: Flat affect. Assessment & Plan Assessment/Plan (1) Acute kidney injury: PLAN: Plan 1. Acute kidney injury-patient: Patient is admitted to [facility] floor. Patient has normal baseline creatinine 0.95 on 01/20/2020. Potassium slightly low at 3.0and replacement ordered. Desizing Pad Operator consulted. Had kidney ultrasound which reported normal on December 1922. UA on admission so no blood 30 protein. U tox positive for ecstasy. Patient is on IV fluid 0.45 normal saline with potassium supplement 200 mL/h. Hold nephrotoxic medication including diclofenac, ramipril and lithium. #2 elevated lithium level with lithium toxicity: Unclear whether patient is confusion, tremors is due to lithium toxicity. [place] is discontinued for now. Monitor lithium level. Patient's lithium will be held, lithium level will be repeated tomorrow #3 Acute toxic/metabolic encephalopathy, multiple etiologies secondary to lithium toxicity and CARLOS: Treat underlying disorder. Continue IV fluid #4 bipolar disorder-patient will remain on his medications except for his lithium #5 hyperlipidemia-patient is on Zetia #6 hypertension-patient's ramipril will be held at this time due to his elevatedkidney functions, blood pressure will be monitored #7 obstructive sleep apnea-patient does not use CPAP, he is noncompliant Charges/Coding Visit Charges Inpatient E&M: 00537 Subs Hosp L2 02/26/23 1617 <Electronically signed by Jacob Sung MD> Cosigner Signature (if applicable): CC: ~ Signed [facility] Work Phone: 1(497) 205-317611-01-2023 History and physical note Author [facility]y [facility] February 25, 2023 3:46pm Note Date/Time February 25, 2023 3 :38pm [facility] Medical Records Department [address] [place] [id number] H&P Exam - Hospitalist 02/25/23 1536 MR#: [id number] Acct: [id number] Name: MELIZA EASTMAN Rep #:[id number] : 1965 57 From: Aneudy Case DO PCP: Dr. Jj Eason MD Status:ADM IN Location: [facility] [id number] HPI - General General Date of Admission: 02/25/23 Date of Service: 02/25/23 Chief Complaint: Confusion, lethargy HPI Narrative MELIZA EASTMAN, is a 57 M who presents to the emergency room at [facility] after being transported from the local long term where he resides temporarily-his release date is March 11-he has been unsteady on his feet today and somewhat confused. 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 Labs done in the emergency room were abnormal for creatinine of 4.85, BUN was 38, white blood cell count was 11.6 and hemoglobin was 12.3. Patient's lithium level was 2.2 On examination, patient appeared mildly confused, he was hard to arouse to ask questions and review of systems was not obtainable from the patient. Patient will be admitted to [place] [address] for acute kidney injury and metabolic encephalopathy. [facility] Medical History Ambulates with cane Anxiety Anxiety and depression Arthritis Back pain Bipolar disorder Body mass index (BMI) 35 or more Breast mass, left Cancer Cardiology follow-up encounter Cataract, left eye Chest pain Chronic cough Chronic pain of both knees CPAP (continuous positive airway pressure) dependence Degenerative joint disease (DJD) of hip Depression Disc degeneration, lumbar Dizziness Essential (primary) hypertension Headache High cholesterol History of echocardiogram History of edema History of pain when walking History of stress test Hx of reactive hypoglycemia Hyperlipidemia Hypertension Iliotibial band syndrome affecting left lower leg Injury of head and neck Left shoulder pain Loss of consciousness Non-smoker Obesity Obesity RAY (obstructive sleep apnea) Osteoarthritis of right hip Osteoarthritis of right hip Pain Palpitations Primary osteoarthritis, left shoulder Primary osteoarthritis, right shoulder Right shoulder pain Shortness of breath on exertion SOBOE (shortness of breath on exertion) Wears glasses Home Medications multivitamin (Daily Multi-Vitamin tablet) 1 tab PO DAILY supplement 12/01/19 [History Last Taken 01/12/23] carvedilol 12.5 mg tablet 25 mg PO BID blood pressure 08/02/20 [History Last Taken 09/29/22] lamotrigine 200 mg tablet 400 mg PO QHS skin 08/02/20 [History Last Taken 03/16/22] acetaminophen 500 mg capsule 500 mg PO Q6H PRN Pain 05/21/21 [History Last Taken 03/16/22] bupropion HCl 150 mg tablet,12 hr sustained-release (Wellbutrin SR) 150 mg PO BID depression 12/03/21 [History Last Taken 03/16/22] diclofenac sodium 75 mg tablet,delayed release 75 mg PO BID pain 12/03/21 [History Last Taken 03/16/22] lithium carbonate 300 mg capsule 300 mg PO DAILY psych 02/05/22 [History Last Taken 03/16/22] ascorbic acid (vitamin C) 500 mg tablet (Vitamin C) 1,000 mg PO DAILY vitamin 05/27/22 [History Last Taken Unknown] cholecalciferol (vitamin D3) 25 mcg (1,000 unit) chewable tablet (Vitamin D3) 2,000 unit PO DAILY vitamin 05/27/22 [History Last Taken Unknown] ramipril 10 mg capsule 10 mg PO QHS bp 05/27/22 [History Last Taken 09/29/22] tamsulosin 0.4 mg capsule 0.4 mg PO Q24H prostate 11/14/22 [History Last Taken Unknown] amlodipine 5 mg tablet 5 mg PO QHS blood pressure #90 tabs 11/25/22 [Rx Last Taken Unknown] ezetimibe 10 mg tablet (Zetia) 10 mg PO DAILY cholesterol #90 tabs 12/02/22 [Rx Last Taken Unknown] lithium carbonate 300 mg capsule 300 mg PO QHS depression #0 caps 01/21/23 [Rx Last Taken Unknown] nystatin 100,000 unit/mL oral suspension 500,000 unit (5 mL) PO 4X/DAY skin #0 mL 01/21/23 [Rx Last Taken Unknown] gabapentin 800 mg tablet 800 mg PO QHS pain 02/25/23 [History Last Taken Unknown] hydralazine 25 mg tablet 50 mg PO Q12H blood pressure 02/25/23 [History Last Taken Unknown] Allergy/AdvReac Type Severity Reaction Status Date / Time atorvastatin [From Lipitor] Allergy Unknown Verified 02/25/23 15:00 Penicillins Allergy Unknown Verified 02/25/23 15:00 pravastatin [From Pravachol] Allergy Unknown Verified 02/25/23 15:00 tolmetin Allergy Hives Verified 02/25/23 15:00 meloxicam AdvReac Other Verified 02/25/23 15:00 Family History Mother Breast cancer Myocardial infarction Hypertension Father Colon cancer Myocardial infarction Surgical History H/O rotator cuff surgery History of carpal tunnel surgery of right wrist History of left heart catheterization (02/2013) History of left hip replacement (01/2017) History of open reduction and internal fixation (ORIF) procedure History of total left hip arthroplasty Hx of arthroscopy of left knee Hx of arthroscopy of right knee Hx of arthroscopy of shoulder Hx of exploratory laparotomy Hx of release of tendon Hx of right cataract extraction S/P partial mastectomy Social History Smoking Status: Never smoker alcohol intake: never substance use type: does not use caffeine: Yes Type: carbonated beverages Number of servings: 3 what type of physical activity do you participate in: none ROS ROS Narrative Not able to be obtained due to mild confusion and encephalopathy Review of Systems ROS Unobtainable: due to encephalopathy Vital Signs Vital Signs Vital Signs: 02/25/23 12:32 02/25/23 14:15 02/25/23 14:57 Temperature 98.2 F Temperature Source Oral Pulse Rate 59 L 88 60 Respiratory Rate 16 16 16 Blood Pressure 97/67 154/105 H 93/51 L Blood Pressure Mean 77 121 65 Pulse Ox 98 98 99 Oxygen Delivery Method Room Air Room Air Weight Weight: 137.2 kg Body Mass Index (BMI) 43.4 Physical Exam Const no apparent distress, average body habitus and healthy appearing Constitutional Narrative: Patient is lethargic, he can answer some questions appropriately but is sleepy General Appearance: cooperative, well kempt and well developed Orientation / Consciousness: oriented to person and oriented to place HEENT normocephalic, head/scalp atraumatic and hearing grossly normal bilaterally HEENT Narrative: Mucous membranes are dry Eyes PERRL, EOMs intact bilaterally and conjunctivae normal Neck supple, no JVD, thyroid normal and no carotid bruits General: trachea midline Resp normal respiratory effort, no retractions, no use of accessory muscles and clearto auscultation bilaterally Auscultation: Negative for rales, rhonchi or wheezes Cardio regular rate, regular rhythm, S1 normal heart sound, S2 normal heart sound, no murmurs, no rub, no gallops, no clicks and no JVD GI normal to inspection, nondistended, normoactive bowel sounds, soft to palpation,non-tender and non-distended Extremity no clubbing, cyanosis or edema Skin no rashes or lesions noted General Skin Exam: no breakdown Neuro CN's II-XII intact bilaterally, moves all extremities, no focal motor deficits and no sensory deficits noted Neuro Narrative: Patient is lethargic, he awakens to tactile stimulation and some verbal stimulation, he does answer some questions appropriately but is overall sleepy Speech: speech normal Psych Psych Narrative: Patient is lethargic and sleepy Results Lab / Micro Data 02/25/23 12:50 02/25/23 12:50 Labs: Laboratory Results - last 24 hr 02/25/23 12:50: WBC 11.6 H, RBC 4.12 L, Hgb 12.3 L, Hct 39.0 L, MCV 94.7 H, MCH 29.9, MCHC 31.5 L, RDW Std Deviation 52.2 H, RDW Coeff of Héctor 15.0 H, Plt Count 293, MPV 12.3 H, Immature Gran % (Auto) 1.300 H, Neut % (Auto) 63.7, Lymph % (Auto) 21.3, [place] % (Auto) 10.1 H, Eos % (Auto) 2.7, Baso % (Auto) 0.9, AbsoluteNeuts (auto) 7.4, Absolute Lymphs (auto) 2.47, Nucleated RBC % 0, Sodium 135 L, Potassium 3.6, Chloride 100, Carbon Dioxide 23.0, Anion Gap 12, BUN 38 H, Creatinine 4.85 H, Estim Creat Clear Calc 17.35, Est GFR (MDRD) Af Amer 16 L, Est GFR (MDRD) Non-Af 13 L, BUN/Creatinine Ratio 7.8 L, Glucose 93, Calcium 9.5,Total Bilirubin 0.70, AST 14 L, ALT 24, Alkaline Phosphatase 81, Total Protein 6.7, Albumin 3.8, Globulin 2.9, Albumin/Globulin Ratio 1.3 02/25/23 13:15: [place] 2.20 H* Radiology Impression Brain CT 02/25/23 13:17 IMPRESSION: No acute abnormality is seen. Stable coarse calcifications seen in both right and left cerebellar hemispheres. Electronically Signed: Daniel Torres MD at 13:34 EDT , Chest X-Ray 02/25/23 13:20 IMPRESSION: No acute abnormality is seen. Electronically Signed: Daniel Torres MD at 13:39 EDT , Assessment & Plan Assessment/Plan (1) Acute kidney injury: PLAN: Plan 1. Acute kidney injury-patient will be admitted to [place] [address] and given IV fluids, labs will be monitored, patient's diclofenac will be held #2 elevated lithium level-patient's lithium will be held, lithium level will be repeated tomorrow #3 metabolic encephalopathy secondary to #1-supportive care will be offered, patient will be reevaluated tomorrow #4 bipolar disorder-patient will remain on his medications except for his lithium #5 hyperlipidemia-patient is on Zetia #6 hypertension-patient's ramipril will be held at this time due to his elevatedkidney functions, blood pressure will be monitored #7 obstructive sleep apnea-patient does not use CPAP, he is noncompliant Total clinical time spent by myself addressing the patient's medical issues, reviewing all of his data, and collaborating with patient's care team: 55 minutes Charges/Coding Visit Charges Inpatient E&M: 24645 Init Hosp L2 02/25/23 1546 <Electronically signed by Aneudy Case DO> Cosigner Signature (if applicable): CC: Dr. Jj Eason MD; Dr. Aneudy Case DO~ Signed [facility] Work Phone: 1(252) 824-460811-01-2023 Discharge summary [facility] February 25, 2023 2:25pm Note Date/Time February 25, 2023 1 2:57pm [facility] Medical Records Department [address] [place] [address] Emergency Department Summary 02/25/23 MR#: [id number] Acct: [id number] Name: MELIZA EASTMAN Rep #:[id number] : 1965 57 From: Miri ORTIZ PCP: Dr. Jj Eason MD Status:ADM IN Location[place] [facility] [id number] HPI <ANGEL Barrett - Last Filed: 02/25/23 14:12> History of Present Illness Chief Complaint: Confusion Narrative Narrative: 57-year-old male was released from long term this morning after a 15-day stay and thejail nurse was concerned he seemed confused/had strokelike symptoms. Patient states he felt weak and fell and struck his head on the ground. Denies loss of consciousness or blood thinners. He has no acute complaints. He states he was in the hospital recently for renal failure but is not sure why this happened. PFSH <ANGEL Barrett - Last Filed: 02/25/23 14:12> [facility] Medical History Ambulates with cane Anxiety Anxiety and depression Arthritis Back pain Bipolar disorder Body mass index (BMI) 35 or more Breast mass, left Cancer Cardiology follow-up encounter Cataract, left eye Chest pain Chronic cough Chronic pain of both knees CPAP (continuous positive airway pressure) dependence Degenerative joint disease (DJD) of hip Depression Disc degeneration, lumbar Dizziness Essential (primary) hypertension Headache High cholesterol History of echocardiogram History of edema History of pain when walking History of stress test Hx of reactive hypoglycemia Hyperlipidemia Hypertension Iliotibial band syndrome affecting left lower leg Injury of head and neck Left shoulder pain Loss of consciousness Non-smoker Obesity Obesity RAY (obstructive sleep apnea) Osteoarthritis of right hip Osteoarthritis of right hip Pain Palpitations Primary osteoarthritis, left shoulder Primary osteoarthritis, right shoulder Right shoulder pain Shortness of breath on exertion SOBOE (shortness of breath on exertion) Wears glasses Home Medications multivitamin (Daily Multi-Vitamin tablet) 1 tab PO DAILY supplement 12/01/19 [History Last Taken 01/12/23] carvedilol 12.5 mg tablet 12.5 mg PO BID 08/02/20 [History Last Taken 09/29/22] lamotrigine 200 mg tablet 400 mg PO QHS 08/02/20 [History Last Taken 03/16/22] acetaminophen 500 mg capsule 500 mg PO Q6H PRN Pain 05/21/21 [History Last Taken 03/16/22] bupropion HCl 150 mg tablet,12 hr sustained-release (Wellbutrin SR) 150 mg PO BID 12/03/21 [History Last Taken 03/16/22] diclofenac sodium 75 mg tablet,delayed release 75 mg PO BID 12/03/21 [History Last Taken 03/16/22] lithium carbonate 300 mg capsule 300 mg PO DAILY 02/05/22 [History Last Taken 03/16/22] ascorbic acid (vitamin C) 500 mg tablet (Vitamin C) 1,000 mg PO DAILY 05/27/22 [History Last Taken Unknown] cholecalciferol (vitamin D3) 25 mcg (1,000 unit) chewable tablet (Vitamin D3) 2,000 unit PO DAILY 05/27/22 [History Last Taken Unknown] ramipril 10 mg capsule 10 mg PO QHS bp 05/27/22 [History Last Taken 09/29/22] tamsulosin 0.4 mg capsule 0.4 mg PO Q24H prostate 11/14/22 [History Last Taken Unknown] amlodipine 5 mg tablet 5 mg PO QHS #90 tabs 11/25/22 [Rx Last Taken Unknown] ezetimibe 10 mg tablet (Zetia) 10 mg PO DAILY #90 tabs 12/02/22 [Rx Last Taken Unknown] lithium carbonate 300 mg capsule 300 mg PO QHS #0 caps 01/21/23 [Rx Last Taken Unknown] nystatin 100,000 unit/mL oral suspension 500,000 unit (5 mL) PO 4X/DAY #0 mL 01/21/23 [Rx Last Taken Unknown] Allergy/AdvReac Type Severity Reaction Status Date / Time atorvastatin [From Lipitor] Allergy Unknown Verified 01/12/23 19:10 Penicillins Allergy Unknown Verified 01/12/23 19:10 pravastatin [From Pravachol] Allergy Unknown Verified 01/12/23 19:10 tolmetin Allergy Hives Verified 01/12/23 19:10 meloxicam AdvReac Other Verified 01/12/23 19:10 Family History Mother Breast cancer Myocardial infarction Hypertension Father Colon cancer Myocardial infarction Surgical History H/O rotator cuff surgery History of carpal tunnel surgery of right wrist History of left heart catheterization (02/2013) History of left hip replacement (01/2017) History of open reduction and internal fixation (ORIF) procedure History of total left hip arthroplasty Hx of arthroscopy of left knee Hx of arthroscopy of right knee Hx of arthroscopy of shoulder Hx of exploratory laparotomy Hx of release of tendon Hx of right cataract extraction S/P partial mastectomy Social History Smoking Status: Never smoker alcohol intake: never substance use type: does not use caffeine: Yes Type: carbonated beverages Number of servings: 3 what type of physical activity do you participate in: none ROS <ANGEL Barrett - Last Filed: 02/25/23 14:12> ROS ED ROS Narrative Constitutional: Negative for fever, chills, malaise. Eyes: Negative for visual change. CVS: Negative for chest pain, syncope. Respiratory: Negative for shortness of breath, cough. GI: Negative for abdominal pain, nausea, vomiting, diarrhea. : Negative for dysuria. Neuro: Negative for headache, motor/sensory dysfunction. EXAM <ANGEL Barrett - Last Filed: 02/25/23 14:12> Physical Exam Narrative Exam Narrative: CONST: Patient sitting in no acute distress. EYES: Normal inspection. NECK: Normal inspection. RESP: No respiratory distress, CTAB. CVS: Regular rate and rhythm, no murmur, no gallop. ABD: Soft and nontender, no guarding or rebound, nondistended. SKIN: Color normal, no rash, warm, dry, intact. EXTREMITIES: Normal appearance, no pedal edema. NEURO: Oriented x4. 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 PSYCH: Normal affect. Const Vital Signs: 02/25/23 12:32 02/25/23 14:15 Temperature 98.2 F Temperature Source Oral Pulse Rate 59 L 88 Respiratory Rate 16 16 Blood Pressure 97/67 154/105 H Blood Pressure Mean 77 121 Pulse Ox 98 98 Oxygen Delivery Method Room Air Room Air <Dr. Nate Santana MD - Last Filed: 02/25/23 14:25> Physical Exam Const Vital Signs: 02/25/23 12:32 02/25/23 14:15 Temperature 98.2 F Temperature Source Oral Pulse Rate 59 L 88 Respiratory Rate 16 16 Blood Pressure 97/67 154/105 H Blood Pressure Mean 77 121 Pulse Ox 98 98 Oxygen Delivery Method Room Air Room Air MDM <ANGEL Barrett - Last Filed: 02/25/23 14:12> [facility] Narrative Medical decision making narrative: Patient was sent in for confusion. He appears well and nontoxic. He was initially slightly hypotensive but repeat is 140/90 and vital signs are within normal limits. He is alert and oriented x4 but sometimes slow to answer questions/does not recall other historical questions. He is moving all extremities with no neurological deficits. Work-up shows acute kidney injury with BUN of 38, creatinine 4.85. He had a similar presentation 1 month ago withAKI which resolved after holding his KELSEY inhibitor/HCTZ. He was also given IV fluids in the ED. Due to his fall earlier a CT brain was obtained and shows no acute findings. Case was discussed with the hospitalist for admission. Differential for AMS: Intracranial process, electrolyte abnormality, infectious etiology Lab Data Attestation: I reviewed the patient's lab results. Labs: Laboratory Results - last 24 hr 02/25/23 12:50 WBC 11.6 H RBC 4.12 L Hgb 12.3 L Hct 39.0 L MCV 94.7 H MCH 29.9 MCHC 31.5 L RDW Std Deviation 52.2 H RDW Coeff of Héctor 15.0 H Plt Count 293 MPV 12.3 H Immature Gran % (Auto) 1.300 H Neut % (Auto) 63.7 Lymph % (Auto) 21.3 [place] % (Auto) 10.1 H Eos % (Auto) 2.7 Baso % (Auto) 0.9 Absolute Neuts (auto) 7.4 Absolute Lymphs (auto) 2.47 Nucleated RBC % 0 Sodium 135 L Potassium 3.6 Chloride 100 Carbon Dioxide 23.0 Anion Gap 12 BUN 38 H Creatinine 4.85 H Estim Creat Clear Calc 17.35 Est GFR (MDRD) Af Amer 16 L Est GFR (MDRD) Non-Af 13 L BUN/Creatinine Ratio 7.8 L Glucose 93 Calcium 9.5 Total Bilirubin 0.70 AST 14 L ALT 24 Alkaline Phosphatase 81 Total Protein 6.7 Albumin 3.8 Globulin 2.9 Albumin/Globulin Ratio 1.3 Radiography Diagnostic Testing: Clinical Impression(s) from Imaging Studies Brain CT 02/25/23 13:17 IMPRESSION: No acute abnormality is seen. Stable coarse calcifications seen in both right and left cerebellar hemispheres. Electronically Signed: Daniel Torres MD at 13:34 EDT , Chest X-Ray 02/25/23 13:20 IMPRESSION: No acute abnormality is seen. Electronically Signed: Daniel Torres MD at 13:39 EDT , ED attending interpretation of 1- view chest x-ray shows normal heart size, no acute infiltrate, edema, or effusion. EKG Initial EKG: Attestation: I personally reviewed and interpreted this EKG as follows: Comments: Sinus bradycardia with first-degree AV block at 58 bpm LBBB LBBB present on prior EKG from 01/12/2023 <Dr. Nate Santana MD - Last Filed: 02/25/23 14:25> [facility] Lab Data Labs: Laboratory Results - last 24 hr 02/25/23 12:50 WBC 11.6 H RBC 4.12 L Hgb 12.3 L Hct 39.0 L MCV 94.7 H MCH 29.9 MCHC 31.5 L RDW Std Deviation 52.2 H RDW Coeff of Héctor 15.0 H Plt Count 293 MPV 12.3 H Immature Gran % (Auto) 1.300 H Neut % (Auto) 63.7 Lymph % (Auto) 21.3 [place] % (Auto) 10.1 H Eos % (Auto) 2.7 Baso % (Auto) 0.9 Absolute Neuts (auto) 7.4 Absolute Lymphs (auto) 2.47 Nucleated RBC % 0 Sodium 135 L Potassium 3.6 Chloride 100 Carbon Dioxide 23.0 Anion Gap 12 BUN 38 H Creatinine 4.85 H Estim Creat Clear Calc 17.35 Est GFR (MDRD) Af Amer 16 L Est GFR (MDRD) Non-Af 13 L BUN/Creatinine Ratio 7.8 L Glucose 93 Calcium 9.5 Total Bilirubin 0.70 AST 14 L ALT 24 Alkaline Phosphatase 81 Total Protein 6.7 Albumin 3.8 Globulin 2.9 Albumin/Globulin Ratio 1.3 Radiography Diagnostic Testing: Clinical Impression(s) from Imaging Studies Brain CT 02/25/23 13:17 IMPRESSION: No acute abnormality is seen. Stable coarse calcifications seen in both right and left cerebellar hemispheres. Electronically Signed: Daniel Torres MD at 13:34 EDT , Chest X-Ray 02/25/23 13:20 IMPRESSION: No acute abnormality is seen. Electronically Signed: Daniel Torres MD at 13:39 EDT , Treatment and Re-Evaluation :: I have personally performed a face to face assessment of the patient and have reviewed the TABATHA Note. I performed a substantive portion of the visit including all aspects of the following. My glaser findings include: History: Patient was sent in after being released from long term today. He states for the last almost week he just feels intermittently dizzy. He does state there is a sense of motion. But he states its not all the time. It is just if he moves quickly. He did fall earlier today because he was dizzy. But he denies hurting himself. He did not lose consciousness. He has not been febrile. No nausea vomiting or chest pain at this time. He is getting some muscle cramps occasionally. It is hard to get exactly what is were made but he were some changes on his meds recently. It sounds like he was off some of them until he was put in long term a couple weeks or so ago. He states there was a changeto his lithium but he forgets what the dose was. Exam: Patient is awake alert. He is oriented x3. He knows where he is. He knows the president [facility] and has an opinion. This patient also used lety a bite block maker. 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 I am not seeing memory problems. He does look a little dry on exam with dry mucous membranes. But his lungs are clear. Heart is regular at about 60. Abdomen is obese but benign. Extremities show no trauma. I am not getting any focal or lateralizingdeficit. He is sometimes a little bit slow to answer questions but there does not appear to be any gross confusion. Medical Decision Making: I will do a lithium level. We will do some blood work as the patient does have a history of some acute kidney injury in the past. Some of his symptoms may be medication effect. We will also do a scan of the headwith the fall and his symptoms. Discharge Plan Triage Chief Complaint: Confusion ED Midlevel Provider: Miri Rodriguez ED Provider: Nate Santana Dx/Rx/DC Orders Clinical Impression: Acute kidney injury, Dehydration, History of bipolar disorder, Fall Primary Care Provider: Jj Eason What to do if you have Problems For any increased pain, shortness of breath, bleeding, nausea or vomiting, chestpain, or any unexpected problems, contact your Primary Care Provider. Call [facility] ([phone]) or report to the closest Emergency Room. Call 911 if necessary. 02/25/23 1412 <Electronically signed by Miri ORTIZ> Cosigner Signature (if applicable): 02/25/23 1425 <Electronically signed by Nate Santana MD> CC: Dr. Jj Eason MD ~ Signed [facility] Work Phone: 1(626) 145-598211-01-2023 Discharge summary Author Nate Santana [facility] February 25, 2023 2:25pm Note Date/Time February 25, 2023 1 2:57pm [facility] Medical Records Department [address] [place] [address] Emergency Department Summary 02/25/23 MR#: [id number] Acct: [id number] Name: MELIZA EASTMAN Rep #:[id number] : 1965 57 From: Miri ORTIZ PCP: Dr. Jj Eason MD Status:ADM IN Location: [id number] HPI <ANGEL Barrett - Last Filed: 02/25/23 14:12> History of Present Illness Chief Complaint: Confusion Narrative Narrative: 57-year-old male was released from long term this morning after a 15-day stay and thejail nurse was concerned he seemed confused/had strokelike symptoms. Patient states he felt weak and fell and struck his head on the ground. Denies loss of consciousness or blood thinners. He has no acute complaints. He states he was in the hospital recently for renal failure but is not sure why this happened. [facility] <ANGEL Barrett - Last Filed: 02/25/23 14:12> [facility] Medical History Ambulates with cane Anxiety Anxiety and depression Arthritis Back pain Bipolar disorder Body mass index (BMI) 35 or more Breast mass, left Cancer Cardiology follow-up encounter Cataract, left eye Chest pain Chronic cough Chronic pain of both knees CPAP (continuous positive airway pressure) dependence Degenerative joint disease (DJD) of hip Depression Disc degeneration, lumbar Dizziness Essential (primary) hypertension Headache High cholesterol History of echocardiogram History of edema History of pain when walking History of stress test Hx of reactive hypoglycemia Hyperlipidemia Hypertension Iliotibial band syndrome affecting left lower leg Injury of head and neck Left shoulder pain Loss of consciousness Non-smoker Obesity Obesity RAY (obstructive sleep apnea) Osteoarthritis of right hip Osteoarthritis of right hip Pain Palpitations Primary osteoarthritis, left shoulder Primary osteoarthritis, right shoulder Right shoulder pain Shortness of breath on exertion SOBOE (shortness of breath on exertion) Wears glasses Home Medications multivitamin (Daily Multi-Vitamin tablet) 1 tab PO DAILY supplement 12/01/19 [History Last Taken 01/12/23] carvedilol 12.5 mg tablet 12.5 mg PO BID 08/02/20 [History Last Taken 09/29/22] lamotrigine 200 mg tablet 400 mg PO QHS 08/02/20 [History Last Taken 03/16/22] acetaminophen 500 mg capsule 500 mg PO Q6H PRN Pain 05/21/21 [History Last Taken 03/16/22] bupropion HCl 150 mg tablet,12 hr sustained-release (Wellbutrin SR) 150 mg PO BID 12/03/21 [History Last Taken 03/16/22] diclofenac sodium 75 mg tablet,delayed release 75 mg PO BID 12/03/21 [History Last Taken 03/16/22] lithium carbonate 300 mg capsule 300 mg PO DAILY 02/05/22 [History Last Taken 03/16/22] ascorbic acid (vitamin C) 500 mg tablet (Vitamin C) 1,000 mg PO DAILY 05/27/22 [History Last Taken Unknown] cholecalciferol (vitamin D3) 25 mcg (1,000 unit) chewable tablet (Vitamin D3) 2,000 unit PO DAILY 05/27/22 [History Last Taken Unknown] ramipril 10 mg capsule 10 mg PO QHS bp 05/27/22 [History Last Taken 09/29/22] tamsulosin 0.4 mg capsule 0.4 mg PO Q24H prostate 11/14/22 [History Last Taken Unknown] amlodipine 5 mg tablet 5 mg PO QHS #90 tabs 11/25/22 [Rx Last Taken Unknown] ezetimibe 10 mg tablet (Zetia) 10 mg PO DAILY #90 tabs 12/02/22 [Rx Last Taken Unknown] lithium carbonate 300 mg capsule 300 mg PO QHS #0 caps 01/21/23 [Rx Last Taken Unknown] nystatin 100,000 unit/mL oral suspension 500,000 unit (5 mL) PO 4X/DAY #0 mL 01/21/23 [Rx Last Taken Unknown] Allergy/AdvReac Type Severity Reaction Status Date / Time atorvastatin [From Lipitor] Allergy Unknown Verified 01/12/23 19:10 Penicillins Allergy Unknown Verified 01/12/23 19:10 pravastatin [From Pravachol] Allergy Unknown Verified 01/12/23 19:10 tolmetin Allergy Hives Verified 01/12/23 19:10 meloxicam AdvReac Other Verified 01/12/23 19:10 Family History Mother Breast cancer Myocardial infarction Hypertension Father Colon cancer Myocardial infarction Surgical History H/O rotator cuff surgery History of carpal tunnel surgery of right wrist History of left heart catheterization (02/2013) History of left hip replacement (01/2017) History of open reduction and internal fixation (ORIF) procedure History of total left hip arthroplasty Hx of arthroscopy of left knee Hx of arthroscopy of right knee Hx of arthroscopy of shoulder Hx of exploratory laparotomy Hx of release of tendon Hx of right cataract extraction S/P partial mastectomy Social History Smoking Status: Never smoker alcohol intake: never substance use type: does not use caffeine: Yes Type: carbonated beverages Number of servings: 3 what type of physical activity do you participate in: none ROS <ANGEL Barrett - Last Filed: 02/25/23 14:12> ROS ED ROS Narrative Constitutional: Negative for fever, chills, malaise. Eyes: Negative for visual change. CVS: Negative for chest pain, syncope. Respiratory: Negative for shortness of breath, cough. GI: Negative for abdominal pain, nausea, vomiting, diarrhea. : Negative for dysuria. Neuro: Negative for headache, motor/sensory dysfunction. EXAM <ANGEL Barrett - Last Filed: 02/25/23 14:12> Physical Exam Narrative Exam Narrative: CONST: Patient sitting in no acute distress. EYES: Normal inspection. NECK: Normal inspection. RESP: No respiratory distress, CTAB. CVS: Regular rate and rhythm, no murmur, no gallop. ABD: Soft and nontender, no guarding or rebound, nondistended. SKIN: Color normal, no rash, warm, dry, intact. EXTREMITIES: Normal appearance, no pedal edema. NEURO: Oriented x4. 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 PSYCH: Normal affect. Const Vital Signs: 02/25/23 12:32 02/25/23 14:15 Temperature 98.2 F Temperature Source Oral Pulse Rate 59 L 88 Respiratory Rate 16 16 Blood Pressure 97/67 154/105 H Blood Pressure Mean 77 121 Pulse Ox 98 98 Oxygen Delivery Method Room Air Room Air <Dr. Nate Santana MD - Last Filed: 02/25/23 14:25> Physical Exam Const Vital Signs: 02/25/23 12:32 02/25/23 14:15 Temperature 98.2 F Temperature Source Oral Pulse Rate 59 L 88 Respiratory Rate 16 16 Blood Pressure 97/67 154/105 H Blood Pressure Mean 77 121 Pulse Ox 98 98 Oxygen Delivery Method Room Air Room Air MDM <ANGEL Barrett - Last Filed: 02/25/23 14:12> [facility] MDM Narrative Medical decision making narrative: Patient was sent in for confusion. He appears well and nontoxic. He was initially slightly hypotensive but repeat is 140/90 and vital signs are within normal limits. He is alert and oriented x4 but sometimes slow to answer questions/does not recall other historical questions. He is moving all extremities with no neurological deficits. Work-up shows acute kidney injury with BUN of 38, creatinine 4.85. He had a similar presentation 1 month ago withAKI which resolved after holding his KELSEY inhibitor/HCTZ. He was also given IV fluids in the ED. Due to his fall earlier a CT brain was obtained and shows no acute findings. Case was discussed with the hospitalist for admission. Differential for AMS: Intracranial process, electrolyte abnormality, infectious etiology Lab Data Attestation: I reviewed the patient's lab results. Labs: Laboratory Results - last 24 hr 02/25/23 12:50 WBC 11.6 H RBC 4.12 L Hgb 12.3 L Hct 39.0 L MCV 94.7 H MCH 29.9 MCHC 31.5 L RDW Std Deviation 52.2 H RDW Coeff of Héctor 15.0 H Plt Count 293 MPV 12.3 H Immature Gran % (Auto) 1.300 H Neut % (Auto) 63.7 Lymph % (Auto) 21.3 [place] % (Auto) 10.1 H Eos % (Auto) 2.7 Baso % (Auto) 0.9 Absolute Neuts (auto) 7.4 Absolute Lymphs (auto) 2.47 Nucleated RBC % 0 Sodium 135 L Potassium 3.6 Chloride 100 Carbon Dioxide 23.0 Anion Gap 12 BUN 38 H Creatinine 4.85 H Estim Creat Clear Calc 17.35 Est GFR (MDRD) Af Amer 16 L Est GFR (MDRD) Non-Af 13 L BUN/Creatinine Ratio 7.8 L Glucose 93 Calcium 9.5 Total Bilirubin 0.70 AST 14 L ALT 24 Alkaline Phosphatase 81 Total Protein 6.7 Albumin 3.8 Globulin 2.9 Albumin/Globulin Ratio 1.3 Radiography Diagnostic Testing: Clinical Impression(s) from Imaging Studies Brain CT 02/25/23 13:17 IMPRESSION: No acute abnormality is seen. Stable coarse calcifications seen in both right and left cerebellar hemispheres. Electronically Signed: Daniel Torres MD at 13:34 EDT , Chest X-Ray 02/25/23 13:20 IMPRESSION: No acute abnormality is seen. Electronically Signed: Daniel Torres MD at 13:39 EDT , ED attending interpretation of 1- view chest x-ray shows normal heart size, no acute infiltrate, edema, or effusion. EKG Initial EKG: Attestation: I personally reviewed and interpreted this EKG as follows: Comments: Sinus bradycardia with first-degree AV block at 58 bpm LBBB LBBB present on prior EKG from 01/12/2023 <Dr. Nate Santana MD - Last Filed: 02/25/23 14:25> [facility] Lab Data Labs: Laboratory Results - last 24 hr 02/25/23 12:50 WBC 11.6 H RBC 4.12 L Hgb 12.3 L Hct 39.0 L MCV 94.7 H MCH 29.9 MCHC 31.5 L RDW Std Deviation 52.2 H RDW Coeff of Héctor 15.0 H Plt Count 293 MPV 12.3 H Immature Gran % (Auto) 1.300 H Neut % (Auto) 63.7 Lymph % (Auto) 21.3 [place] % (Auto) 10.1 H Eos % (Auto) 2.7 Baso % (Auto) 0.9 Absolute Neuts (auto) 7.4 Absolute Lymphs (auto) 2.47 Nucleated RBC % 0 Sodium 135 L Potassium 3.6 Chloride 100 Carbon Dioxide 23.0 Anion Gap 12 BUN 38 H Creatinine 4.85 H Estim Creat Clear Calc 17.35 Est GFR (MDRD) Af Amer 16 L Est GFR (MDRD) Non-Af 13 L BUN/Creatinine Ratio 7.8 L Glucose 93 Calcium 9.5 Total Bilirubin 0.70 AST 14 L ALT 24 Alkaline Phosphatase 81 Total Protein 6.7 Albumin 3.8 Globulin 2.9 Albumin/Globulin Ratio 1.3 Radiography Diagnostic Testing: Clinical Impression(s) from Imaging Studies Brain CT 02/25/23 13:17 IMPRESSION: No acute abnormality is seen. Stable coarse calcifications seen in both right and left cerebellar hemispheres. Electronically Signed: Daniel Torres MD at 13:34 EDT , Chest X-Ray 02/25/23 13:20 IMPRESSION: No acute abnormality is seen. Electronically Signed: Daniel Torres MD at 13:39 EDT , Treatment and Re-Evaluation :: I have personally performed a face to face assessment of the patient and have reviewed the TABATHA Note. I performed a substantive portion of the visit including all aspects of the following. My glaser findings include: History: Patient was sent in after being released from long term today. He states for the last almost week he just feels intermittently dizzy. He does state there is a sense of motion. But he states its not all the time. It is just if he moves quickly. He did fall earlier today because he was dizzy. But he denies hurting himself. He did not lose consciousness. He has not been febrile. No nausea vomiting or chest pain at this time. He is getting some muscle cramps occasionally. It is hard to get exactly what is were made but he were some changes on his meds recently. It sounds like he was off some of them until he was put in long term a couple weeks or so ago. He states there was a changeto his lithium but he forgets what the dose was. Exam: Patient is awake alert. He is oriented x3. He knows where he is. He knows the president [facility] and has an opinion. This patient also used lety a bite block maker. 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 I am not seeing memory problems. He does look a little dry on exam with dry mucous membranes. But his lungs are clear. Heart is regular at about 60. Abdomen is obese but benign. Extremities show no trauma. I am not getting any focal or lateralizingdeficit. He is sometimes a little bit slow to answer questions but there does not appear to be any gross confusion. Medical Decision Making: I will do a lithium level. We will do some blood work as the patient does have a history of some acute kidney injury in the past. Some of his symptoms may be medication effect. We will also do a scan of the headwith the fall and his symptoms. Discharge Plan Triage Chief Complaint: Confusion ED Midlevel Provider: Miri Rodriguez ED Provider: Nate Santana Dx/Rx/DC Orders Clinical Impression: Acute kidney injury, Dehydration, History of bipolar disorder, Fall Primary Care Provider: Jj Eason What to do if you have Problems For any increased pain, shortness of breath, bleeding, nausea or vomiting, chestpain, or any unexpected problems, contact your Primary Care Provider. Call [employer] [facility] ([phone]) or report to the closest Emergency Room. Call 911 if necessary. 02/25/23 1412 <Electronically signed by Miri ORTIZ> Cosigner Signature (if applicable): 02/25/23 1425 <Electronically signed by Nate Santana MD> CC: Dr. Jj Eason MD ~ Signed [facility] Work Phone: 1(760) 148-375610-14-2023 NoteHNO ID: [id number] Author: Note, Interface Service: ? Author Type: ? Type: Progress Notes Filed: 02/07/2023 5:29 AM Note Text: Epic Scheduled Downtime: 02/07/2023 1:00:00 AM to 02/07/2023 1:28:[facility] NoteHNO ID: [id number] Author: Yolanda Jimenez APRN.DIRECTOR OF MARKETING OPERATIONS Service: Hospital Medicine Author Type: Nurse Practitioner [...] HTN, HLD, and bipolar who presented to [facility] from [facility]. He was admitted to [facility] for evaluation of altered mentation and abnormal gait. Work up revealed slightly elevated [place] level for which his symptoms were attributed to. Prior to admission, he was taking [place] 300mg once daily and 600mg once daily. His dose was adjusted to 300mg BID. He was also found to have CARLOS for which HCTZ and KELSEY-I held and CARLOS improved. During hospitalization, he was evaluated by PT/OT and SNF was recommended [facility] after[facility]. Problem List: Principle Problem: Aftercare - Hospitalization Diagnosis: [place] toxicity, CARLOS - Discharge Facility: [facility] - PT/OT Consult - Nutrition Consult - Case Management Consult for Discharge Planning - Pain Control: PRN tylenol - DVT Prophylaxis: Ambulation - PT/OT Restrictions: None - Current Living Situation: Home alone - Code Status: Full Code Bipolar [place] toxicity - Presented to [facility] for evaluation of altered mentation (fogginess) and gait abnormality - MRI brain negative for acute process - Work up revealed lithium toxicity (1.3) - Prior to admission was taking [place] 300mg am and 600mg pm - Dose [...] Symptoms improved 01/22/23 1245 graduated compression stockings (nd,nc) VTE Prophylaxis: VTE prophylaxis appropriate Disposition: To be determined Plan of care discussed with Provider, RN, Patient and Care Management SIGNATURE: Yolanda Jimenez APRN.CNP PATIENT NAME: Meliza Eastman DATE: January 26, 2023 TIME: 5:16 [facility]09-28-2023 History of Past illness Narrative* Problem Noted Date Diagnosed Date Resolved Date CARLOS (acute kidney injury) 01/22/2023 documented as of this encounter (statuses as of 06/24/2023) [facility]09-28-2023 History of Past illness Narrative* Problem Noted Date Diagnosed Date Resolved Date CARLOS (acute kidney injury) 01/22/2023 documented as of this encounter (statuses as of 08/13/2023) [facility]09-26-2023 Progress note Author Jj To [facility] January 20, 2023 1:50pm Note Date/Time January 20, 2023 8:33am [facility] Medical Records Department [address] [place] [address] Progress Note - Hospitalist 01/20/23 0831 MR#: [id number] Acct: [id number] Name: MELIZA EASTMAN Rep #:[id number] : 1965 57 From: Jj To DO PCP: Dr. Jj Eason MD Status:ADM IN Location: [place] [address] Reason for Visit Reason for Visit: Diagnoses Morbid (severe) obesity due to excess calories (01/12/23) Hypokalemia (01/12/23) Encephalopathy, unspecified (01/12/23) Essential (primary) hypertension (01/12/23) Acute kidney failure, unspecified (01/12/23) Unspecified kidney failure (01/12/23) Disorientation, unspecified (01/12/23) Other malaise (01/12/23) Toxic effect of other metals, accidental (unintentional), initial encounter (01/12/23) Subjective Subjective No new events. Objective Data Objective Data Vital Signs: Vital Signs Temp Pulse Resp BP Pulse Ox O2 Del Method 37.1 C 67 16 152/94 H 93 Room Air 01/20/23 05:16 01/20/23 05:16 01/20/23 05:16 01/20/23 05:16 01/20/23 05:16 01/20/23 08:09 Oxygen Delivery Method Room Air Weight: 146.9 kg Body Mass Index (BMI) 46.4 Intake & Output: Intake and Output for Last 24 Hours 01/18/23 01/19/23 01/20/23 23:59 23:59 23:59 Intake Total 1597.5 / 1597.5 720 / 720 120 / 120 Output Total 1600 / 1600 800 / 800 350 / 350 Balance -2.5 / -2.5 -80 / -80 -230 / -230 Lab / Micro Data 01/19/23 05:48 01/19/23 05:48 Labs: Laboratory Results - last 24 hr 01/19/23 09:51: [place] 1.30 H Rhythm Strip Rhythm Strip: Sinus Rhythm Rate: 65 Ectopy: None Physical Exam Const alert and no apparent distress HEENT head/scalp atraumatic Cardio regular rate Neuro Sensorium / Orientation: awake and alert Assessment & Plan Assessment/Plan (1) [place] toxicity: QUALIFIERS: Encounter type: initial encounter Injury intent: accidental or unintentional Qualified Code(s): T56.891A - Toxic effect of othermetals, accidental (unintentional), initial encounter PLAN: Suspected [place] level 01/19 was 1.3 which is slightly high. It is unclear what the patient's lithium level was upon arrival but with patient's reported ataxia and confusion is concerning that the patient had lithium toxicity. Patient takes lithium 300 in the morning and 600 at night. I am recommending the dosing be changed to 300 twice daily. Will initiate the twice daily dosing starting 01/20. Patient advised to follow-up with a psychiatrist. Patient states that he has been on lithium for 30+ years. Seems that he has been on this for so long that is not caused him any problems in the past. (2) Acute kidney failure: QUALIFIERS: Acute renal failure type: unspecified Qualified Code(s): N17.9 - Acute kidney failure, unspecified PLAN: Resolved with IVF Renal US unremarkable Holding HCTZ and lisinopril. Unclear if related with lithium toxicity. (3) Encephalopathy: PLAN: MRI shows chronic WM changes, likely due microvascular ischemia Likely multifactorial: metabolic from dehydration, toxic from decreased excretion of gabapentin in [place] and underlying psychiatric disorder Concerned that this may have been due to lithium toxicity. Appears to be resolved. Patient has gabapentin on his MAR but patient states that he has not taken that in 2 weeks. (4) Hypokalemia: PLAN: Replace Mag 2.2 (5) Debility: PLAN: Minimal ability on 01/18. Unsafe for home unless has 24h assistance Plan for SNF otherwise. PLAN: Plan Chronic conditions: * Essential hypertension? Patient is currently on amlodipine as well as carvedilol his HCTZ and lisinopril held in view of impaired kidney function * Obstructive sleep apnea? Patient apparently has not been compliant with CPAP therapy * Class III obesity with BMI of 46.5? Weight loss advised * Bipolar disorder? Patient on lithium resumed DVT prophylaxis? SC heparin Disposition: To SNF pending insurance authorization. Charges/Coding Visit Charges Inpatient E&M: 82204 Subs Hosp L1 01/20/23 1350 <Electronically signed by Jj To DO> Cosigner Signature (if applicable): CC: ~ Signed [facility] Work Phone: 1(209) 624-644209-25-2023 Progress note [facility] January 19, 2023 11:39am Note Date/Time January 19, 2023 8:59am [facility] Medical Records Department [address] [place] [address] Progress Note - Hospitalist 01/19/23 0847 MR#: [id number] Acct: [id number] Name: MELIZA EASTMAN Rep #:[id number] : 1965 57 From: Jj To DO PCP: Dr. Jj Eason MD Status:ADM IN Location: [place] [address] Reason for Visit Reason for Visit: Diagnoses Morbid (severe) obesity due to excess calories (01/12/23) Essential (primary) hypertension (01/12/23) Acute kidney failure, unspecified (01/12/23) Unspecified kidney failure (01/12/23) Disorientation, unspecified (01/12/23) Subjective Subjective Feels better. Objective Data Objective Data Vital Signs: Vital Signs Temp Pulse Resp BP Pulse Ox O2 Del Method 37.3 C H 71 18 146/96 H 95 Room Air 01/19/23 03:12 01/19/23 03:12 01/19/23 03:12 01/19/23 03:12 01/19/23 03:12 01/19/23 03:12 Oxygen Delivery Method Room Air Weight: 146.9 kg Body Mass Index (BMI) 46.4 Intake & Output: Intake and Output for Last 24 Hours 01/17/23 01/18/23 01/19/23 23:59 23:59 23:59 Intake Total 4400 / 4400 1597.5 / 1597.5 Output Total 1100 / 1100 1600 / 1600 400 / 400 Balance 3300 / 3300 -2.5 / -2.5 -400 / -400 Lab / Micro Data 01/19/23 05:48 01/19/23 05:48 Labs: Laboratory Results - last 24 hr 01/18/23 09:16: WBC 8.2, RBC 4.16 L, Hgb 12.6 L, Hct 38.8 L, MCV 93.3, MCH 30.3,MCHC 32.5, RDW Std Deviation 45.9 H, RDW Coeff of Héctor 13.4, Plt Count 209, MPV 11.6, Immature Gran % (Auto) 0.200, Neut % (Auto) 66.7, Lymph % (Auto) 19.1, [place] % (Auto) 9.2, Eos % (Auto) 4.3, Baso % (Auto) 0.5, Absolute Neuts (auto) 5.4, Absolute Lymphs (auto) 1.56, Nucleated RBC % 0, Sodium 141, Potassium 3.7, Chloride 109 H, Carbon Dioxide 22.0, Anion Gap 10, BUN 9, Creatinine 0.95, EstimCreat Clear Calc 88.58, Est GFR (MDRD) Af Amer 105, Est GFR (MDRD) Non-Af 87, BUN/Creatinine Ratio 9.5 L, Glucose 107 H, Calcium 8.9, Magnesium 2.2, Total Bilirubin 0.50, Direct Bilirubin 0.23, AST 29, ALT 47, Alkaline Phosphatase 110,Total Protein 5.9 L, Albumin 3.1 L, Globulin 2.8 01/19/23 05:48: WBC 8.3, RBC 4.20 L, Hgb 12.4 L, Hct 39.3 L, MCV 93.6, MCH 29.5,MCHC 31.6 L, RDW Std Deviation 45.8 H, RDW Coeff of Héctor 13.3, Plt Count 208, MPV12.3 H, Sodium 139, Potassium 3.3 L, Chloride 108 H, Carbon Dioxide 24.0, Anion Gap 7, BUN 11, Creatinine 0.90, Estim Creat Clear Calc 93.50, Est GFR (MDRD) Af Amer 112, Est GFR (MDRD) Non-Af 93, BUN/Creatinine Ratio 12.3, Glucose 97, Calcium 8.8, Phosphorus 3.1, Total Bilirubin 0.50, AST 25, ALT 45, Alkaline Phosphatase 103, Total Protein 5.9 L, Albumin 2.9 L, Globulin 3.0, Albumin/Globulin Ratio 1.0 Rhythm Strip Rhythm Strip: Sinus Rhythm Rate: 65 Ectopy: None Physical Exam Const alert and no apparent distress HEENT head/scalp atraumatic and moist oral mucous membranes Resp normal respiratory effort, no retractions, no use of accessory muscles and clearto auscultation bilaterally Cardio regular rate, regular rhythm, S1 normal heart sound and S2 normal heart sound GI normal to inspection, nondistended, normoactive bowel sounds Assessment & Plan Assessment/Plan (1) [place] toxicity: QUALIFIERS: Encounter type: initial encounter Injury intent: accidental or unintentional Qualified Code(s): T56.891A - Toxic effect of othermetals, accidental (unintentional), initial encounter PLAN: Suspected [place] level today was 1.3 which is slightly high. It is unclear what the patient's lithium level was upon arrival but with patient's reported ataxia and confusion is concerning that the patient had lithium toxicity. Patient takes lithium 300 in the morning and 600 at night. I am recommending the dosing be changed to 300 twice daily. Will initiate the twice daily dosing starting tomorrow. Patient did receive his a.m. dose today. Patient advised to follow-up with a psychiatrist. Patient states that he has been on lithium for 30 years. Seems that he has been on this for so long that isnot caused him any problems in the past. (2) Acute kidney failure: QUALIFIERS: Acute renal failure type: unspecified Qualified Code(s): N17.9 - Acute kidney failure, unspecified PLAN: Resolved with IVF Renal US unremarkable Holding HCTZ and lisinopril. Unclear if related with lithium toxicity. (3) Encephalopathy: PLAN: MRI shows chronic WM changes, likely due microvascular ischemia Likely multifactorial: metabolic from dehydration, toxic from decreased excretion of gabapentin in [place] and underlying psychiatric disorder Concerned that this may have been due to lithium toxicity. Appears to be resolved. Patient has gabapentin on his MAR but patient states that he has not taken that in 2 weeks. (4) Hypokalemia: PLAN: Replace Mag 2.2 (5) Debility: PLAN: Minimal ability on 01/18. Unsafe for home unless has 24h assistance Plan for SNF otherwise. PLAN: Plan Chronic conditions: * Essential hypertension? Patient is currently on amlodipine as well as carvedilol his HCTZ and lisinopril held in view of impaired kidney function * Obstructive sleep apnea? Patient apparently has not been compliant with CPAP therapy * Class III obesity with BMI of 46.5? Weight loss advised * Bipolar disorder? Patient on lithium resumed DVT prophylaxis? SC heparin Disposition: To SNF pending insurance authorization. Greater than 55 minutes of which greater than 50% time was reviewing the patient's data, discussing with the patient at bedside, discussing the patient about the potential for lithium toxicity and the recommendation for decreasing his lithium dose and also to follow-up with his psychiatrist Charges/Coding Visit Charges Inpatient E&M: 38487 Subs Hosp L3 01/19/23 1139 <Electronically signed by Jj To DO> Cosigner Signature (if applicable): CC: ~ Signed [facility] Work Phone: 1(887) 451-903809-24-2023 Progress note Author Dara Robert [facility] January 18, 2023 10:58am Note Date/Time January 18, 2023 8:32am [facility] Medical Records Department [address] [facility] [place] [address] Progress Note - Hospitalist 01/18/23 0832 MR#: [id number] Acct: [id number] Name: MELIZA EASTMAN Rep #:[id number] : 1965 57 From: Dara Robert MD PCP: Dr. Jj Eason MD Status:ADM IN Location: [place] [address] Reason for Visit Reason for Visit: Diagnoses Morbid (severe) obesity due to excess calories (01/12/23) Essential (primary) hypertension (01/12/23) Acute kidney failure, unspecified (01/12/23) Unspecified kidney failure (01/12/23) Disorientation, unspecified (01/12/23) Subjective Subjective Seen complains of intermittent episodes of nausea and vomiting work-up so far negative to date. Patient remains deconditioned and plan is for patient to be transferred to half-way facility possibly on 01/19/2023 pending insurance approval Objective Data Objective Data Vital Signs: Vital Signs Temp Pulse Resp BP Pulse Ox O2 Del Method 98.0 F 70 16 162/95 H 95 Room Air 01/18/23 03:00 01/18/23 03:00 01/18/23 03:00 01/18/23 03:00 01/18/23 03:00 01/18/23 03:00 Oxygen Delivery Method Room Air Weight: 146.9 kg Body Mass Index (BMI) 46.4 Intake & Output: Intake and Output for Last 24 Hours 01/16/23 01/17/23 01/18/23 23:59 23:59 23:59 Intake Total 3937.5 / 3937.5 4400 / 4400 850 / 850 Output Total 1730 / 1730 1100 / 1100 Balance 2207.5 / 2207.5 3300 / 3300 850 / 850 Lab / Micro Data 01/18/23 09:16 01/18/23 09:16 Radiography Diagnostic Testing: Radiology Impression Brain MRI 01/16/23 09:36 IMPRESSION: undefined Rhythm Strip Rhythm Strip: Sinus Rhythm Rate: 65 Ectopy: None Physical Exam Narrative GENERAL: cooperative HEENT: Atraumatic; normocephalic EYES; Anicteric, Normal Conjunctiva NECK; supple, normal thyroid, RESPIRATORY: Diminished to auscultation CARDIOVASCULAR: Regular S1 S2, GI: soft, normoactive bowel sounds, : No Renal angle tenderness; EXTREMITIES: No edema, no clubbing, MUSCULOSKELETAL: no muscle wasting NEURO: Awake; no lateralizing signs. SKIN: No Rash PSYCH; Flat affect Assessment & Plan Assessment/Plan (1) Acute kidney failure: QUALIFIERS: Acute renal failure type: unspecified Qualified Code(s): N17.9 - Acute kidney failure, unspecified PLAN: Plan Patient is a 57-year-old male who was brought to the hospital by family on account of increasing confusion found to have acute kidney injury admitted to monitored bed for subsequent eval 1. Acute kidney injury ? Patient admitted to monitored bed started on IV fluids renal duplex ordered. Progressed being monitored with serial BMPs potential nephrotoxic medications including HCTZ ramipril and diclofenac held 01/14/2023; Patient kidney function improving with rehydration. Kidney ultrasound demonstrated normal ultrasound of the kidneys and urinary bladder. ? 01/15/2023 creatinine down to 1.36 ? 01/16/2023; kidney function back to baseline 2. Acute metabolic encephalopathy -secondary to patient acute kidney injury management as discussed above ? 01/16/2023 patient continues to experience behavior which cannot be explained only by his metabolic derangement MRI of the brain with and without contrast ordered for subsequent eval ? 01/17/2023; MRI obtained did demonstrateModerate white matter changes are nonspecific, but often secondary to chronic microvascular ischemia. Findings arewithout significant change from the prior MRI 3. Essential hypertension ? Patient is currently on amlodipine as well as carvedilol his HCTZ and lisinopril held in view of impaired kidney function 4. Obstructive sleep apnea ? Patient apparently has not been compliant with CPAP therapy 5. Class III obesity with BMI of 46.5 ? Weight loss advised 6. Bipolar disorder ? Patient on lithium resumed 7. DVT prophylaxis ? SC heparin 8. Hypokalemia ? Corrected per protocol repeat labs ordered for eval 9. Left shoulder pain ? Requested for 2 view x-ray to rule out occult fracture 10. Physical deconditioning - Requested for PT OT eval and social work assistant to assist with discharge planning Time spent in the patient's overall evaluation,decision-making process, review of diagnostic data, adjustment of management, discussion with other providers, nursing nursing and ancillary staff involved in patient's care documentation, 35 Minutes Charges/Coding Visit Charges Inpatient E&M: 93118 Subs Hosp L2 01/18/23 1058 <Electronically signed by Dara Robert MD> Cosigner Signature (if applicable): CC: ~ Signed [facility] Work Phone: 1([phone]) 142-361809-23-2023 Progress note Author Dara Robert [facility] January 17, 2023 11:06am Note Date/Time January 17, 2023 8:33am [facility] Medical Records Department [address] [place] [address] Progress Note - Hospitalist 01/17/2333 MR#: [id number] Acct: [id number] Name: MELIZA EASTMAN Rep #:[id number] : 1965 57 From: Dara Robert MD PCP: Dr. Jj Eason MD Status:ADM IN Location: [place] [address] Reason for Visit Reason for Visit: Diagnoses Morbid (severe) obesity due to excess calories (01/12/23) Essential (primary) hypertension (01/12/23) Acute kidney failure, unspecified (01/12/23) Unspecified kidney failure (01/12/23) Disorientation, unspecified (01/12/23) Subjective Subjective Patient seen has been experiencing bouts of nausea and vomiting. MRI obtained did Moderate white matter changes are nonspecific, but often secondary to chronic microvascular ischemia. Findings are without significant change from the prior MRI Objective Data Objective Data Vital Signs: Vital Signs Temp Pulse Resp BP Pulse Ox O2 Del Method 98.5 F 70 16 147/78 H 94 Room Air 01/17/23 03:15 01/17/23 03:15 01/17/23 03:15 01/17/23 03:15 01/17/23 03:15 01/17/23 03:24 Oxygen Delivery Method Room Air Weight: 146.9 kg Body Mass Index (BMI) 46.4 Intake & Output: Intake and Output for Last 24 Hours 01/15/23 01/16/23 01/17/23 23:59 23:59 23:59 Intake Total 3000 / 3000 3937.5 / 3937.5 920 / 920 Output Total 1750 / 1750 1730 / 1730 500 / 500 Balance 1250 / 1250 2207.5 / 2207.5 420 / 420 Lab / Micro Data 01/16/23 05:24 01/16/23 05:24 Radiography Diagnostic Testing: Radiology Impression Brain MRI 01/16/23 09:36 IMPRESSION: undefined Rhythm Strip Rhythm Strip: Sinus Rhythm Rate: 65 Ectopy: None Physical Exam Narrative GENERAL: cooperative HEENT: Atraumatic; normocephalic EYES; Anicteric, Normal Conjunctiva NECK; supple, normal thyroid, RESPIRATORY: Diminished to auscultation CARDIOVASCULAR: Regular S1 S2, GI: soft, normoactive bowel sounds, : No Renal angle tenderness; EXTREMITIES: No edema, no clubbing, MUSCULOSKELETAL: no muscle wasting NEURO: Awake; no lateralizing signs. SKIN: No Rash PSYCH; Flat affect Assessment & Plan Assessment/Plan (1) Acute kidney failure: QUALIFIERS: Acute renal failure type: unspecified Qualified Code(s): N17.9 - Acute kidney failure, unspecified PLAN: Plan Patient is a 57-year-old male who was brought to the hospital by family on account of increasing confusion found to have acute kidney injury admitted to monitored bed for subsequent eval 1. Acute kidney injury ? Patient admitted to monitored bed started on IV fluids renal duplex ordered. Progressed being monitored with serial BMPs potential nephrotoxic medications including HCTZ ramipril and diclofenac held 01/14/2023; Patient kidney function improving with rehydration. Kidney ultrasound demonstrated normal ultrasound of the kidneys and urinary bladder. ? 01/15/2023 creatinine down to 1.36 ? 01/16/2023; kidney function back to baseline 2. Acute metabolic encephalopathy -secondary to patient acute kidney injury management as discussed above ? 01/16/2023 patient continues to experience behavior which cannot be explained only by his metabolic derangement MRI of the brain with and without contrast ordered for subsequent eval ? 01/17/2023; MRI obtained did demonstrateModerate white matter changes are nonspecific, but often secondary to chronic microvascular ischemia. Findings arewithout significant change from the prior MRI 3. Essential hypertension ? Patient is currently on amlodipine as well as carvedilol his HCTZ and lisinopril held in view of impaired kidney function 4. Obstructive sleep apnea ? Patient apparently has not been compliant with CPAP therapy 5. Class III obesity with BMI of 46.5 ? Weight loss advised 6. Bipolar disorder ? Patient on lithium resumed 7. DVT prophylaxis ? SC heparin 8. Hypokalemia ? Corrected per protocol repeat labs ordered for eval 9. Left shoulder pain ? Requested for 2 view x-ray to rule out occult fracture 10. Physical deconditioning - Requested for PT OT eval and social work assistant to assist with discharge planning Time spent in the patient's overall evaluation,decision-making process, review of diagnostic data, adjustment of management, discussion with other providers, nursing nursing and ancillary staff involved in patient's care documentation, 35 Minutes Charges/Coding Visit Charges Inpatient E&M: 98500 Subs Hosp L2 01/17/23 1106 <Electronically signed by Dara Robert MD> Cosigner Signature (if applicable): CC: ~ Signed [facility] Work Phone: 1(920) 531-395209-22-2023 Progress note Author [facility] January 16, 2023 11:11am Note Date/Time January 16, 2023 11:10am [facility] Medical Records Department [address] [place] [address] Progress Note - Hospitalist 01/16/23 1107 MR#: [id number] Acct: [id number] Name: MELIZA EASTMAN Rep #:[id number] : 1965 57 From: Dara Robert MD PCP: Dr. Jj Eason MD Status:ADM IN Location: [place] [address] Reason for Visit Reason for Visit: Diagnoses Morbid (severe) obesity due to excess calories (01/12/23) Essential (primary) hypertension (01/12/23) Acute kidney failure, unspecified (01/12/23) Unspecified kidney failure (01/12/23) Disorientation, unspecified (01/12/23) Subjective Subjective Seen creatinine back to baseline. Patient however complains of difficulty with swallowing throwing almost everything up. MRI of the brain ordered for subsequent eval Objective Data Objective Data Vital Signs: Vital Signs Temp Pulse Resp BP Pulse Ox O2 Del Method 98.4 F 68 16 164/102 H 95 Room Air 01/16/23 08:57 01/16/23 08:57 01/16/23 08:57 01/16/23 08:57 01/16/23 08:57 01/16/23 09:08 Oxygen Delivery Method Room Air Weight: 146.9 kg Body Mass Index (BMI) 46.4 Intake & Output: Intake and Output for Last 24 Hours 01/14/23 01/15/23 01/16/23 23:59 23:59 23:59 Intake Total 4507.5 / 4507.5 3000 / 3000 1857.5 / 1857.5 Output Total 1700 / 2200 1750 / 1750 750 / 750 Balance 2807.5 / 2307.5 1250 / 1250 1107.5 / 1107.5 Lab / Micro Data 01/16/23 05:24 01/16/23 05:24 Labs: Laboratory Results - last 24 hr 01/16/23 05:24: WBC 8.2, RBC 4.26 L, Hgb 12.8 L, Hct 39.7 L, MCV 93.2, MCH 30.0,MCHC 32.2, RDW Std Deviation 45.1 H, RDW Coeff of Héctor 13.2, Plt Count 234, MPV 12.2 H, Sodium 139, Potassium 3.5, Chloride 112 H, Carbon Dioxide 22.0, Anion Gap 5, BUN 17, Creatinine 1.10, Estim Creat Clear Calc 76.50, Est GFR (MDRD) Af Amer 89, Est GFR (MDRD) Non-Af 73, BUN/Creatinine Ratio 15.5, Glucose 102, Calcium 9.0 Radiography Diagnostic Testing: Radiology Impression Shoulder X-Ray 01/15/23 10:00 IMPRESSION: No change. No acute abnormality. Degenerative changes, stable. Electronically Signed: Rohan Vela MD at 23:00 EDT , Rhythm Strip Rhythm Strip: Sinus Rhythm Rate: 65 Ectopy: None Physical Exam Narrative GENERAL: cooperative HEENT: Atraumatic; normocephalic EYES; Anicteric, Normal Conjunctiva NECK; supple, normal thyroid, RESPIRATORY: Diminished to auscultation CARDIOVASCULAR: Regular S1 S2, GI: soft, normoactive bowel sounds, : No Renal angle tenderness; EXTREMITIES: No edema, no clubbing, MUSCULOSKELETAL: no muscle wasting NEURO: Awake; no lateralizing signs. SKIN: No Rash PSYCH; Flat affect Assessment & Plan Assessment/Plan (1) Acute kidney failure: QUALIFIERS: Acute renal failure type: unspecified Qualified Code(s): N17.9 - Acute kidney failure, unspecified PLAN: Plan Patient is a 57-year-old male who was brought to the hospital by family on account of increasing confusion found to have acute kidney injury admitted to monitored bed for subsequent eval 1. Acute kidney injury ? Patient admitted to monitored bed started on IV fluids renal duplex ordered. Progressed being monitored with serial BMPs potential nephrotoxic medications including HCTZ ramipril and diclofenac held 01/14/2023; Patient kidney function improving with rehydration. Kidney ultrasound demonstrated normal ultrasound of the kidneys and urinary bladder. ? 01/15/2023 creatinine down to 1.36 ? 01/16/2023; kidney function back to baseline 2. Acute metabolic encephalopathy -secondary to patient acute kidney injury management as discussed above ? 01/16/2023 patient continues to experience behavior which cannot be explained only by his metabolic derangement MRI of the brain with and without contrast ordered for subsequent eval 3. Essential hypertension ? Patient is currently on amlodipine as well as carvedilol his HCTZ and lisinopril held in view of impaired kidney function 4. Obstructive sleep apnea ? Patient apparently has not been compliant with CPAP therapy 5. Class III obesity with BMI of 46.5 ? Weight loss advised 6. Bipolar disorder ? Patient on lithium resumed 7. DVT prophylaxis ? SC heparin 8. Hypokalemia ? Corrected per protocol repeat labs ordered for eval 9. Left shoulder pain ? Requested for 2 view x-ray to rule out occult fracture 10. Physical deconditioning - Requested for PT OT eval and social work assistant to assist with discharge planning Time spent in the patient's overall evaluation,decision-making process, review of diagnostic data, adjustment of management, discussion with other providers, nursing nursing and ancillary staff involved in patient's care documentation, 35 Minutes Charges/Coding Visit Charges Inpatient E&M: 14267 Subs Hosp L2 01/16/23 1111 <Electronically signed by Dara Robert MD> Cosigner Signature (if applicable): CC: ~ Signed [facility] Work Phone: 1(922) 875-669109-21-2023 Progress note Author Dara Robert [facility] January 15, 2023 10:10am Note Date/Time January 15, 2023 7:46am [facility] [facility] Medical Records Department [address] [place] [address] Progress Note - Hospitalist 01/15/23 0744 MR#: [id number] Acct: [id number] Name: MELIZA EASTMAN Rep #:[id number] : 1965 57 From: Dara Robert MD PCP: Dr. Jj Eason MD Status:ADM IN Location: [place] [address] Reason for Visit Reason for Visit: Diagnoses Morbid (severe) obesity due to excess calories (01/12/23) Essential (primary) hypertension (01/12/23) Acute kidney failure, unspecified (01/12/23) Unspecified kidney failure (01/12/23) Disorientation, unspecified (01/12/23) Subjective Subjective Patient creatinine down to 1.36, potassium 3.4. X-ray of the left shoulder ordered for evaluation of patient significant left shoulder pain Objective Data Objective Data Vital Signs: Vital Signs Temp Pulse Resp BP Pulse Ox O2 Del Method 98 F 63 16 123/80 H 93 Room Air 01/15/23 02:54 01/15/23 02:54 01/15/23 02:54 01/15/23 02:54 01/15/23 02:54 01/15/23 02:54 Oxygen Delivery Method Room Air Weight: 146.9 kg Body Mass Index (BMI) 46.4 Intake & Output: Intake and Output for Last 24 Hours 01/13/23 01/14/23 01/15/23 23:59 23:59 23:59 Intake Total 2720 / 2720 4507.5 / 4507.5 1000 / 1000 Output Total 1700 / 2200 900 / 900 Balance 2720 / 2720 2807.5 / 2307.5 100 / 100 Lab / Micro Data 01/15/23 05:34 01/15/23 05:34 Labs: Laboratory Results - last 24 hr 01/15/23 05:34: WBC 7.9, RBC 4.21 L, Hgb 12.5 L, Hct 39.3 L, MCV 93.3, MCH 29.7,MCHC 31.8 L, RDW Std Deviation 46.0 H, RDW Coeff of Héctor 13.4, Plt Count 235, MPV12.5 H, Sodium 139, Potassium 3.4 L, Chloride 112 H, Carbon Dioxide 21.0, Anion Gap 6, BUN 26 H, Creatinine 1.36 H, Estim Creat Clear Calc 61.88, Est GFR (MDRD)Af Amer 69, Est GFR (MDRD) Non-Af 57 L, BUN/Creatinine Ratio 19.1, Glucose 100, Calcium 8.8 Rhythm Strip Rhythm Strip: Sinus Rhythm Rate: 65 Ectopy: None Physical Exam Narrative GENERAL: cooperative HEENT: Atraumatic; normocephalic EYES; Anicteric, Normal Conjunctiva NECK; supple, normal thyroid, RESPIRATORY: Diminished to auscultation CARDIOVASCULAR: Regular S1 S2, GI: soft, normoactive bowel sounds, : No Renal angle tenderness; EXTREMITIES: No edema, no clubbing, MUSCULOSKELETAL: no muscle wasting NEURO: Awake; no lateralizing signs. SKIN: No Rash PSYCH; Flat affect Assessment & Plan Assessment/Plan (1) Acute kidney failure: QUALIFIERS: Acute renal failure type: unspecified Qualified Code(s): N17.9 - Acute kidney failure, unspecified PLAN: Plan Patient is a 57-year-old male who was brought to the hospital by family on account of increasing confusion found to have acute kidney injury admitted to monitored bed for subsequent eval 1. Acute kidney injury ? Patient admitted to monitored bed started on IV fluids renal duplex ordered. Progressed being monitored with serial BMPs potential nephrotoxic medications including HCTZ ramipril and diclofenac held 01/14/2023; Patient kidney function improving with rehydration. Kidney ultrasound demonstrated normal ultrasound of the kidneys and urinary bladder. ? 01/15/2023 creatinine down to 1.36 2. Acute metabolic encephalopathy -secondary to patient acute kidney injury management as discussed above 3. Essential hypertension ? Patient is currently on amlodipine as well as carvedilol his HCTZ and lisinopril held in view of impaired kidney function 4. Obstructive sleep apnea ? Patient apparently has not been compliant with CPAP therapy 5. Class III obesity with BMI of 46.5 ? Weight loss advised 6. Bipolar disorder ? Patient on lithium resumed 7. DVT prophylaxis ? SC heparin 8. Hypokalemia ? Corrected per protocol repeat labs ordered for eval 9. Left shoulder pain ? Requested for 2 view x-ray to rule out occult fracture 10. Physical deconditioning - Requested for PT OT eval and social work assistant to assist with discharge planning Time spent in the patient's overall evaluation,decision-making process, review of diagnostic data, adjustment of management, discussion with other providers, nursing nursing and ancillary staff involved in patient's care documentation, 35 Minutes Charges/Coding Visit Charges Inpatient E&M: 28183 Subs Hosp L2 01/15/23 1010 <Electronically signed by Dara Robert MD> Cosigner Signature (if applicable): CC: ~ Signed [facility] Work Phone: [phone]) 994-775309-20-2023 Progress note Author Dara [facility] January 14, 2023 11:19am Note Date/Time January 14, 2023 8:13am [facility] Medical Records Department [address] [place] [id number] Progress Note - Hospitalist 01/14/23 0807 MR#: [id number] Acct: [id number] Name: MELIZA EASTMAN Rep #:[id number] : 1965 57 From: Dara Robert MD PCP: Dr. Jj Eason MD Status:ADM IN Location: [place] [address] Reason for Visit Reason for Visit: Diagnoses Morbid (severe) obesity due to excess calories (01/12/23) Essential (primary) hypertension (01/12/23) Acute kidney failure, unspecified (01/12/23) Unspecified kidney failure (01/12/23) Disorientation, unspecified (01/12/23) Subjective Subjective Patient kidney function improving with rehydration. Kidney ultrasound demonstrated normal ultrasound of the kidneys and urinary bladder. Objective Data Objective Data Vital Signs: Vital Signs Temp Pulse Resp BP Pulse Ox O2 Del Method 98.0 F 66 18 139/84 H 94 Room Air 01/14/23 03:41 01/14/23 03:41 01/14/23 03:41 01/14/23 03:41 01/14/23 03:41 01/14/23 03:50 Oxygen Delivery Method Room Air Weight: 146.9 kg Body Mass Index (BMI) 46.4 Intake & Output: Intake and Output for Last 24 Hours 01/12/23 01/13/23 01/14/23 23:59 23:59 23:59 Intake Total 1000 / 1000 2720 / 2720 1912.5 / 1912.5 Output Total 900 / 900 Balance 1000 / 1000 2720 / 2720 1012.5 / 1012.5 Lab / Micro Data 01/14/23 05:25 01/14/23 05:25 Labs: Laboratory Results - last 24 hr 01/13/23 06:27: Sodium Cancelled 01/13/23 06:27: Sodium 134 L, Potassium Cancelled 01/13/23 06:27: Potassium 3.5, Chloride Cancelled 01/13/23 06:27: Chloride 102, Carbon Dioxide Cancelled 01/13/23 06:27: Carbon Dioxide 22.0, Anion Gap Cancelled 01/13/23 06:27: Anion Gap 10, BUN Cancelled 01/13/23 06:27: BUN 60 H, Creatinine Cancelled 01/13/23 06:27: Creatinine 4.10 H, Estim Creat Clear Calc Cancelled 01/13/23 06:27: Estim Creat Clear Calc 20.53, Est GFR (MDRD) Af Amer Cancelled 01/13/23 06:27: Est GFR (MDRD) Af Amer 19 L, Est GFR (MDRD) Non-Af Cancelled 01/13/23 06:27: Est GFR (MDRD) Non-Af 16 L, BUN/Creatinine Ratio Cancelled 01/13/23 06:27: BUN/Creatinine Ratio 14.6, Glucose Cancelled 01/13/23 06:27: Glucose 112 H, Calcium Cancelled 01/13/23 06:27: Calcium 8.6, Total Bilirubin 0.60, AST 15, ALT 35, Alkaline Phosphatase 102, Total Protein 6.1 L, Albumin 3.5, Globulin 2.6, Albumin/Globulin Ratio 1.3 01/14/23 03:31: Urine Opiates Screen NEGATIVE, Urine Methadone Screen NEGATIVE, Ur Barbiturates Screen NEGATIVE, Ur Phencyclidine Scrn NEGATIVE, Ur AmphetaminesScreen NEGATIVE, MDMA (Ecstasy) Screen POSITIVE H, U Benzodiazepines Scrn NEGATIVE, Urine Cocaine Screen NEGATIVE, U Cannabinoids Screen NEGATIVE, Ur DrugScreen Comment 01/14/23 05:25: WBC 9.0, RBC 4.22 L, Hgb 12.6 L, Hct 39.6 L, MCV 93.8, MCH 29.9,MCHC 31.8 L, RDW Std Deviation 45.3 H, RDW Coeff of Héctor 13.2, Plt Count 230, MPV12.8 H, Sodium 137, Potassium 3.3 L, Chloride 109 H, Carbon Dioxide 22.0, Anion Gap 6, BUN 46 H, Creatinine 2.32 H, Estim Creat Clear Calc 36.27, Est GFR (MDRD)Af Amer 37 L, Est GFR (MDRD) Non-Af 31 L, BUN/Creatinine Ratio 19.8, Glucose 96,Calcium 8.4 L, Phosphorus 2.3 L, Magnesium 2.5 Radiography Diagnostic Testing: Radiology Impression Renal Ultrasound 01/13/23 07:37 IMPRESSION: Normal ultrasound of the kidneys and urinary bladder. Electronically Signed: Daniel Torres MD at 9:57 EDT , Rhythm Strip Rhythm Strip: Sinus Rhythm Rate: 65 Ectopy: None Physical Exam Narrative GENERAL: cooperative HEENT: Atraumatic; normocephalic EYES; Anicteric, Normal Conjunctiva NECK; supple, normal thyroid, RESPIRATORY: Diminished to auscultation CARDIOVASCULAR: Regular S1 S2, GI: soft, normoactive bowel sounds, : No Renal angle tenderness; EXTREMITIES: No edema, no clubbing, MUSCULOSKELETAL: no muscle wasting NEURO: Awake; no lateralizing signs. SKIN: No Rash PSYCH; Flat affect Assessment & Plan Assessment/Plan (1) Acute kidney failure: QUALIFIERS: Acute renal failure type: unspecified Qualified Code(s): N17.9 - Acute kidney failure, unspecified PLAN: Plan Patient is a 57-year-old male who was brought to the hospital by family on account of increasing confusion found to have acute kidney injury admitted to monitored bed for subsequent eval 1. Acute kidney injury ? Patient admitted to monitored bed started on IV fluids renal duplex ordered. Progressed being monitored with serial BMPs potential nephrotoxic medications including HCTZ ramipril and diclofenac held 01/14/2023; Patient kidney function improving with rehydration. Kidney ultrasound demonstrated normal ultrasound of the kidneys and urinary bladder. 2. Acute metabolic encephalopathy -secondary to patient acute kidney injury management as discussed above 3. Essential hypertension ? Patient is currently on amlodipine as well as carvedilol his HCTZ and lisinopril held in view of impaired kidney function 4. Obstructive sleep apnea ? Patient apparently has not been compliant with CPAP therapy 5. Class III obesity with BMI of 46.5 ? Weight loss advised 6. Bipolar disorder ? Patient on lithium resumed 7. DVT prophylaxis ? SC heparin Time spent in the patient's overall evaluation,decision-making process, review of diagnostic data, adjustment of management, discussion with other providers, nursing nursing and ancillary staff involved in patient's care documentation, 35 Minutes Charges/Coding Visit Charges Inpatient E&M: 87777 Subs Hosp L2 01/14/23 1119 <Electronically signed by Dara Robert MD> Cosigner Signature (if applicable): CC: ~ Signed [facility] Work Phone: [phone]) 584-950309-19-2023 Progress [facility] January 13, 2023 10:42am Note Date/Time January 13, 2023 7:37am [facility] Medical Records Department [address] [place] [address] Progress Note - Hospitalist 01/13/23 0732 MR#: [id number] Acct: [id number] Name: MELIZA EASTMAN Rep #:[id number] : 1965 57 From: Dara Robert MD PCP: Dr. Jj Eason MD Status:ADM IN Location: [place] [address] Reason for Visit Reason for Visit: Diagnoses Morbid (severe) obesity due to excess calories (01/12/23) Essential (primary) hypertension (01/12/23) Acute kidney failure, unspecified (01/12/23) Unspecified kidney failure (01/12/23) Disorientation, unspecified (01/12/23) Subjective Subjective Patient is a 57-year-old male who was brought to the hospital by family on account of increasing confusion found to have acute kidney injury admitted to monitored bed for subsequent eval Objective Data Objective Data Vital Signs: Vital Signs Temp Pulse Resp BP Pulse Ox O2 Del Method 97.8 F 65 18 131/67 H 99 Room Air 01/13/23 04:55 01/13/23 04:55 01/13/23 04:55 01/13/23 04:55 01/13/23 04:55 01/13/23 05:03 Oxygen Delivery Method Room Air Weight: 146.9 kg Body Mass Index (BMI) 46.4 Intake & Output: Intake and Output for Last 24 Hours 01/11/23 01/12/23 01/13/23 23:59 23:59 23:59 Intake Total 1000 / 1000 Balance 1000 / 1000 Lab / Micro Data 01/13/23 06:27 01/13/23 06:27 Labs: Laboratory Results - last 24 hr 01/12/23 20:30: WBC 12.4 H, RBC 5.01, Hgb 14.9, Hct 46.5, MCV 92.8, MCH 29.7, MCHC 32.0, RDW Std Deviation 44.9 H, RDW Coeff of Héctor 13.2, Plt Count 284, MPV 12.4 H, Immature Gran % (Auto) 0.800, Neut % (Auto) 74.6 H, Lymph % (Auto) 13.2 L, [place] % (Auto) 8.8, Eos % (Auto) 2.0, Baso % (Auto) 0.6, Absolute Neuts (auto)9.3 H, Absolute Lymphs (auto) 1.63, Nucleated RBC % 0, Sodium 132 L, Potassium 3.9, Chloride 98, Carbon Dioxide 25.0, Anion Gap 9, BUN 60 H, Creatinine 4.82 H,Est GFR (MDRD) Af Amer 16 L, Est GFR (MDRD) Non-Af 13 L, BUN/Creatinine Ratio 12.4, Glucose 110 H, Calcium 9.3, Total Bilirubin 0.70, AST 17, ALT 40, AlkalinePhosphatase 110, Total Protein 7.0, Albumin 4.1, Globulin 2.9, Albumin/Globulin Ratio 1.4, Ethyl Alcohol < 3.0 01/13/23 06:03: POC Glucose 119 H 01/13/23 06:27: WBC 10.9, RBC 4.57 L, Hgb 13.6, Hct 42.1, MCV 92.1, MCH 29.8, MCHC 32.3, RDW Std Deviation 44.5 H, RDW Coeff of Héctor 13.1, Plt Count 248, MPV 12.2 H, Immature Gran % (Auto) 0.600, Neut % (Auto) 69.0, Lymph % (Auto) 16.8 L,[place] % (Auto) 10.2 H, Eos % (Auto) 2.7, Baso % (Auto) 0.7, Absolute Neuts (auto)7.5, Absolute Lymphs (auto) 1.83, Nucleated RBC % 0, Ammonia 31.0 Radiography Diagnostic Testing: Radiology Impression Brain CT 01/12/23 19:59 IMPRESSION: Nonspecific Nonspecific coarse calcifications within the cerebellum bilaterally. No acute disease. Electronically Signed: Kemar Dao MD at 20:45 EDT Reading Location ID and State: [employer] / [place] Tel , Service support , Chest X-Ray 01/12/23 20:10 IMPRESSION: No acute disease Electronically Signed: Kemar Dao MD at 20:47 EDT Reading Location ID and State: [employer] / [place] Tel , Service support , Rhythm Strip Rhythm Strip: Sinus Rhythm Rate: 65 Ectopy: None Physical Exam Narrative GENERAL: cooperative HEENT: Atraumatic; normocephalic EYES; Anicteric, Normal Conjunctiva NECK; supple, normal thyroid, RESPIRATORY: Diminished to auscultation CARDIOVASCULAR: Regular S1 S2, GI: soft, normoactive bowel sounds, : No Renal angle tenderness; EXTREMITIES: No edema, no clubbing, MUSCULOSKELETAL: no muscle wasting NEURO: Awake; no lateralizing signs. SKIN: No Rash PSYCH; Flat affect Assessment & Plan Assessment/Plan (1) Acute kidney failure: QUALIFIERS: Acute renal failure type: unspecified Qualified Code(s): N17.9 - Acute kidney failure, unspecified PLAN: Plan Patient is a 57-year-old male who was brought to the hospital by family on account of increasing confusion found to have acute kidney injury admitted to monitored bed for subsequent eval Acute kidney injury ? Patient admitted to monitored bed started on IV fluids renal duplex ordered. Progressed being monitored with serial BMPs potential nephrotoxic medications including HCTZ ramipril and diclofenac held 2. Acute metabolic encephalopathy -secondary to patient acute kidney injury management as discussed above 3. Essential hypertension ? Patient is currently on amlodipine as well as carvedilol his HCTZ and lisinopril held in view of impaired kidney function 4. Obstructive sleep apnea ? Patient apparently has not been compliant with CPAP therapy 5. Class III obesity with BMI of 46.5 ? Weight loss advised 6. DVT prophylaxis ? SC heparin Time spent in the patient's overall evaluation,decision-making process, review of diagnostic data, adjustment of management, discussion with other providers, nursing nursing and ancillary staff involved in patient's care documentation, 50 Minutes Charges/Coding Visit Charges Inpatient E&M: 76932 Subs Hosp L3 01/13/23 1042 <Electronically signed by Dara Robert MD> Cosigner Signature (if applicable): CC: ~ Signed [facility] Work Phone: [phone]) 978-568009-19-2023 Discharge summary Author Kun Garrett [facility] January 12, 2023 11:13pm Note Date/Time January 12, 2023 8:05pm [facility] Medical Records Department [address] [place] [address] Emergency Department Summary 01/12/23 MR#: [id number] Acct: [id number] Name: MELIZA EASTMAN Rep #:[id number] : 1965 57 From: Kun Garrett MD PCP: Dr. Jj Eason MD Status:ADM IN Location: [address] History of Present Illness Chief Complaint: Confusion Informant: patient Onset/Context/Timing Onset: Today Context: Gradual Onset Timing: Continuous Maximum Severity: Mild Narrative Narrative: 57-year-old male past medical history of hypertension. Recently discharged fromlong term today. Brought in by friend or significant other who is currently not present due to mental status change. Patient does state he had a recent head injury but does not believe he lost consciousness. Does not believe he is on any blood thinners. Prior similar symptoms: No Recent Illness/Hospitalization: No [facility] Medical History Ambulates with cane Anxiety Anxiety and depression Arthritis Back pain Bipolar disorder Body mass index (BMI) 35 or more Breast mass, left Cancer Cardiology follow-up encounter Cataract, left eye Chest pain Chronic cough Chronic pain of both knees CPAP (continuous positive airway pressure) dependence Degenerative joint disease (DJD) of hip Depression Disc degeneration, lumbar Dizziness Essential (primary) hypertension Headache High cholesterol History of echocardiogram History of edema History of pain when walking History of stress test Hx of reactive hypoglycemia Hyperlipidemia Hypertension Iliotibial band syndrome affecting left lower leg Injury of head and neck Left shoulder pain Loss of consciousness Non-smoker Obesity Obesity RAY (obstructive sleep apnea) Osteoarthritis of right hip Osteoarthritis of right hip Pain Palpitations Primary osteoarthritis, left shoulder Primary osteoarthritis, right shoulder Right shoulder pain Shortness of breath on exertion SOBOE (shortness of breath on exertion) Wears glasses Home Medications multivitamin (Daily Multi-Vitamin tablet) 1 tab PO DAILY 12/01/19 [History Last Taken 03/16/22] carvedilol 12.5 mg tablet 12.5 mg PO BID 08/02/20 [History Last Taken 09/29/22] lamotrigine 200 mg tablet 400 mg PO QHS 08/02/20 [History Last Taken 03/16/22] acetaminophen 500 mg capsule 500 mg PO Q6H PRN Pain 05/21/21 [History Last Taken 03/16/22] bupropion HCl 150 mg tablet,12 hr sustained-release (Wellbutrin SR) 150 mg PO BID 12/03/21 [History Last Taken 03/16/22] diclofenac sodium 75 mg tablet,delayed release 75 mg PO BID 12/03/21 [History Last Taken 03/16/22] tramadol 50 mg tablet 50 mg PO Q8H PRN pain #21 tabs 01/27/22 [Rx Last Taken Unknown] lithium carbonate 300 mg capsule 300 mg PO DAILY 02/05/22 [History Last Taken 03/16/22] hydrochlorothiazide 25 mg tablet 25 mg PO DAILY #90 tabs 04/18/22 [Rx Last Taken Unknown] ascorbic acid (vitamin C) 500 mg tablet (Vitamin C) 1,000 mg PO DAILY 05/27/22 [History Last Taken Unknown] cholecalciferol (vitamin D3) 25 mcg (1,000 unit) chewable tablet (Vitamin D3) 2,000 unit PO DAILY 05/27/22 [History Last Taken Unknown] lithium carbonate 300 mg capsule 600 mg PO QHS 05/27/22 [History Last Taken Unknown] ramipril 10 mg capsule 10 mg PO QHS 05/27/22 [History Last Taken 09/29/22] gabapentin 800 mg tablet mg PO 11/14/22 [History Last Taken Unknown] tamsulosin 0.4 mg capsule mg PO 11/14/22 [History Last Taken Unknown] amlodipine 5 mg tablet 5 mg PO QHS #90 tabs 11/25/22 [Rx Last Taken Unknown] ezetimibe 10 mg tablet (Zetia) 10 mg PO DAILY #90 tabs 12/02/22 [Rx Last Taken Unknown] Allergy/AdvReac Type Severity Reaction Status Date / Time atorvastatin [From Lipitor] Allergy Unknown Verified 01/12/23 19:10 Penicillins Allergy Unknown Verified 01/12/23 19:10 pravastatin [From Pravachol] Allergy Unknown Verified 01/12/23 19:10 tolmetin Allergy Hives Verified 01/12/23 19:10 meloxicam AdvReac Other Verified 01/12/23 19:10 Family History Mother Breast cancer Myocardial infarction Hypertension Father Colon cancer Myocardial infarction Surgical History H/O rotator cuff surgery History of carpal tunnel surgery of right wrist History of left heart catheterization (02/2013) History of left hip replacement (01/2017) History of open reduction and internal fixation (ORIF) procedure History of total left hip arthroplasty Hx of arthroscopy of left knee Hx of arthroscopy of right knee Hx of arthroscopy of shoulder Hx of exploratory laparotomy Hx of release of tendon Hx of right cataract extraction S/P partial mastectomy Social History Smoking Status: Never smoker alcohol intake: never substance use type: does not use caffeine: Yes Type: carbonated beverages Number of servings: 3 what type of physical activity do you participate in: none ROS ROS ED ROS Narrative Denies. Limited due to status. Review of Systems ROS Unobtainable: due to mental status Constitutional Constitutional ED: Denies chills or fever(s) Eyes Eyes: Denies blurry vision ENT ENT ED: Denies ear pain Cardiovascular Cardiovascular: Denies chest pain Respiratory/Chest Respiratory/Chest: Denies cough or dyspnea Gastrointestinal Gastrointestinal: Denies abdominal pain Genitourinary Genitourinary ED: Denies dysuria Musculoskeletal Musculoskeletal: Denies arthralgias or back pain Integumentary Denies abscess or Abrasions Neurologic Neurologic: Denies headache(s) Psychiatric Psychiatric: Denies anxiety Endocrine Endocrinology: Denies cold intolerance or heat intolerance Hematologic/Lymphatic Hematologic/Lymphatic: Reports none Allergic/Immunologic Allergic/Immunologic ED: Denies mouth swelling, tongue swelling or urticaria EXAM Physical Exam Narrative Exam Narrative: 57-year-old male vital signs stable afebrile. He does seem slow and confused but he can answer questions appropriately. HEENT exam unremarkable atraumatic. Nontender. Pupils round react light motions are intact. Normal speech no facial droop. No trauma. Neck nontender. No meningismus. Lungs clear to auscultation. Heart regular rhythm rate about 70 no murmur. Chest wall and ribs nontender. Abdomen soft nontender. Moving all 4 extremities. Back unremarkable. Neurologically he is slow to respond but does answer questions. He does know the day of the week Thursday, month of the year in December initially thought it was September but then corrected himself. [facility] He knows what year it is. He is moving all 4 extremities. There is no focal motor deficits. Const Vital Signs: 01/12/23 19:08 Temperature 98.0 F Temperature Source Temporal Pulse Rate 68 Respiratory Rate 18 Blood Pressure 143/90 H Blood Pressure Mean 107 Pulse Ox 97 Oxygen Delivery Method Room Air Positive well nourished, well developed and obese; Negative for cachectic, contractures or unkempt General Appearance ED: well developed; Negative for unkempt, cachectic, contractures, diaphoretic or pallor Nutritional Appearance: obese; Negative for cachectic HEENT Reports moist mucous membranes; Denies dry mucous membranes Negative for trauma or tenderness Mouth ED: No dry mucous membranes Mouth: No dry mucous membranes Eyes PERRL and EOMs intact bilaterally General Eye ED: Negative for pale conjunctiva or scleral icterus Neck no lymphadenopathy, supple and no JVD General: Negative for tenderness Lymph Lymphatic: Negative for other Chest Wall inspection of chest normal and palpation of chest normal Chest: Negative for other Resp normal respiratory effort and clear to auscultation bilaterally Effort and Inspection: Negative for retractions Auscultation: Negative for rales, rhonchi or wheezes Cardio regular rate, regular rhythm, S1 normal heart sound, S2 normal heart sound and no murmurs Rate: Negative for bradycardia or tachycardic GI normal to inspection, nondistended, normoactive bowel sounds, non-tender, non-distended and no masses Inspection: Negative for abdominal distention Auscultation: normoactive bowel sounds Palpation: soft; Negative for tender or guarding Back/Spine no CVA tenderness General Back: Negative for CVA tenderness Cervical Spine: Negative for cervical spine tenderness Thoracic Spine / Upper Back: Negative for thoracic spinal tenderness or paraspinal muscle tenderness Lumbar Spine / Lower Back: Negative for lumbar spinal tenderness Extremity normal to inspection General Extremety ED: Negative for edema or tenderness General Extremity: Negative for edema Neuro oriented x3 and CN's II-XII intact bilaterally Sensorium / Orientation: alert; Negative for orientation impaired, lethargic or stuporous Motor Exam: strength 5/5 throughout Psych mental status grossly normal Appearance: Negative for unkempt Attitude: No agitated Mood & Affect: Negative for depressed, anxious or tearful Skin no rashes or lesions noted, no wounds and skin turgor normal General Skin Exam: elasticity normal; Negative for jaundice or pallor Lesions: No lesion noted Rashes: No rashes noted Trauma: Negative for abrasion Wounds: Negative for wounds noted MDM MDM MDM Narrative Medical decision making narrative: 57-year-old male limited informant with mental status change. CAT scan and labsare pending. No signs of acute stroke. Repeat exam unchanged at 10:20 PM. Patient will be admitted for acute kidney failure and uremia most likely causing his mental status change. No family has been present and I was able to discuss with them his presentation. I did compare his labs to prior labs he had normal kidney function 7 months ago. States he has been urinating. I will speak to the hospitalist about admission. Patient will be treated with a liter of normal saline. History & Record Review Discussion w/independent historian: Patient Lab Data Attestation: I reviewed the patient's lab results. Lab results narrative: CBC shows a white count of 12.4 H&H of 14 and 46. Platelets 284. Electrolytes show sodium 132 gap of 9 BUN and creatinine of 60 and 4.8 consistent with acute kidney failure. Glucose 110. Liver enzymes are normal. Alcohol is negative. Chest x-ray chronic changes. CAT scan chronic calcifications but no acute bleednor signs of acute stroke read by the radiologist and reviewed by me. Labs: Laboratory Results - last 24 hr 01/12/23 20:30 WBC 12.4 H RBC 5.01 Hgb 14.9 Hct 46.5 MCV 92.8 MCH 29.7 MCHC 32.0 RDW Std Deviation 44.9 H RDW Coeff of Héctor 13.2 Plt Count 284 MPV 12.4 H Immature Gran % (Auto) 0.800 Neut % (Auto) 74.6 H Lymph % (Auto) 13.2 L [place] % (Auto) 8.8 Eos % (Auto) 2.0 Baso % (Auto) 0.6 Absolute Neuts (auto) 9.3 H Absolute Lymphs (auto) 1.63 Nucleated RBC % 0 Sodium 132 L Potassium 3.9 Chloride 98 Carbon Dioxide 25.0 Anion Gap 9 BUN 60 H Creatinine 4.82 H Est GFR (MDRD) Af Amer 16 L Est GFR (MDRD) Non-Af 13 L BUN/Creatinine Ratio 12.4 Glucose 110 H Calcium 9.3 Total Bilirubin 0.70 AST 17 ALT 40 Alkaline Phosphatase 110 Total Protein 7.0 Albumin 4.1 Globulin 2.9 Albumin/Globulin Ratio 1.4 Ethyl Alcohol < 3.0 Radiography Chest X-Ray - ED: 1 View, Read by ED Physician, Read by Radiologist, Heart, Lungs, Mediastinum, Bony Structures, No Acute Disease and Chronic Changes Diagnostic Testing: Clinical Impression(s) from Imaging Studies Brain CT 01/12/23 19:59 IMPRESSION: Nonspecific Nonspecific coarse calcifications within the cerebellum bilaterally. No acute disease. Electronically Signed: Kemar Dao MD at 20:45 EDT Reading Location ID and State: [facility] / [place] Tel , Service support , Chest X-Ray 01/12/23 20:10 IMPRESSION: No acute disease Electronically Signed: Kemar Dao MD at 20:47 EDT , Chest x-ray, portable, single view shows a slightly elevated right hemidiaphragm. Normal cardiac silhouette. Normal lung bahena. Interpreted by myself and the radiologist. No acute disease. Rhythm Strip Rhythm Strip: Sinus Rhythm Rate: 65 Ectopy: None EKG Initial EKG: Attestation: I personally reviewed and interpreted this EKG as follows: Interpretation: Sinus Rhythm and No Acute Injury Pattern Comments: Normal sinus rhythm rate 65. Left bundle branch block. No acute signs of CA nor ischemia. Discharge Plan Dx/Rx/DC Orders Clinical Impression: Acute kidney failure, Acute confusion, Acute uremia Disposition Disposition: Acute Care Hospital [facility] What to do if you have Problems For any increased pain, shortness of breath, bleeding, nausea or vomiting, chestpain, or any unexpected problems, contact your Primary Care Provider. Call [facility] ([phone]) or report to the closest Emergency Room. Call 911 if necessary. 01/12/232312 <Electronically signed by Kun Garrett MD> Cosigner Signature (if applicable): CC: Dr. Jj Eason MD ~ Signed [facility] Work Phone: [phone] 871-186409-19-2023 History and physical note Author Bubba Bailon [facility] January 12, 2023 10:38pm Note Date/Time January 12, 2023 10:33pm [facility] Medical Records Department [address] [place] [address] History & Physical Exam 01/12/23 2231 MR#: [id number] Acct: [id number] Name: MELIZA EASTMAN Rep #:[id number] : 1965 57 From: Bubba Bailon MD PCP: Dr. Jj Eason MD Status:REG ER Location: ED HPI - General General Date of Admission: 01/12/23 Date of Service: 01/12/23 Chief Complaint: Change in mental status HPI Narrative MELIZA EASTMAN, is a 57 M who presents to the emergency room with chief complaint of mental status change. Patient was released from long term earlier todayand dropped at the emergency room by his significant other who subsequently leftand is unavailable for further history. The patient is confused but denies any current pain, shortness of breath, fevers or chills and/or nausea and vomiting. He does have a history of hypertension and laboratory studies are unremarkable for acute changes and CT scan of the head. Laboratory studies are remarkable for elevated creatinine of 4.8 and patient has no previous past documentation ofkidney disease. He will be admitted to progressive care unit monitored for mental status and hydrated overnight for acute kidney disease. [facility] Medical History Ambulates with cane Anxiety Anxiety and depression Arthritis Back pain Bipolar disorder Body mass index (BMI) 35 or more Breast mass, left Cancer Cardiology follow-up encounter Cataract, left eye Chest pain Chronic cough Chronic pain of both knees CPAP (continuous positive airway pressure) dependence Degenerative joint disease (DJD) of hip Depression Disc degeneration, lumbar Dizziness Essential (primary) hypertension Headache High cholesterol History of echocardiogram History of edema History of pain when walking History of stress test Hx of reactive hypoglycemia Hyperlipidemia Hypertension Iliotibial band syndrome affecting left lower leg Injury of head and neck Left shoulder pain Loss of consciousness Non-smoker Obesity Obesity RAY (obstructive sleep apnea) Osteoarthritis of right hip Osteoarthritis of right hip Pain Palpitations Primary osteoarthritis, left shoulder Primary osteoarthritis, right shoulder Right shoulder pain Shortness of breath on exertion SOBOE (shortness of breath on exertion) Wears glasses Home Medications multivitamin (Daily Multi-Vitamin tablet) 1 tab PO DAILY 12/01/19 [History Last Taken 03/16/22] carvedilol 12.5 mg tablet 12.5 mg PO BID 08/02/20 [History Last Taken 09/29/22] lamotrigine 200 mg tablet 400 mg PO QHS 08/02/20 [History Last Taken 03/16/22] acetaminophen 500 mg capsule 500 mg PO Q6H PRN Pain 05/21/21 [History Last Taken 03/16/22] bupropion HCl 150 mg tablet,12 hr sustained-release (Wellbutrin SR) 150 mg PO BID 12/03/21 [History Last Taken 03/16/22] diclofenac sodium 75 mg tablet,delayed release 75 mg PO BID 12/03/21 [History Last Taken 03/16/22] tramadol 50 mg tablet 50 mg PO Q8H PRN pain #21 tabs 01/27/22 [Rx Last Taken Unknown] lithium carbonate 300 mg capsule 300 mg PO DAILY 02/05/22 [History Last Taken 03/16/22] hydrochlorothiazide 25 mg tablet 25 mg PO DAILY #90 tabs 04/18/22 [Rx Last Taken Unknown] ascorbic acid (vitamin C) 500 mg tablet (Vitamin C) 1,000 mg PO DAILY 05/27/22 [History Last Taken Unknown] cholecalciferol (vitamin D3) 25 mcg (1,000 unit) chewable tablet (Vitamin D3) 2,000 unit PO DAILY 05/27/22 [History Last Taken Unknown] lithium carbonate 300 mg capsule 600 mg PO QHS 05/27/22 [History Last Taken Unknown] ramipril 10 mg capsule 10 mg PO QHS 05/27/22 [History Last Taken 09/29/22] gabapentin 800 mg tablet mg PO 11/14/22 [History Last Taken Unknown] tamsulosin 0.4 mg capsule mg PO 11/14/22 [History Last Taken Unknown] amlodipine 5 mg tablet 5 mg PO QHS #90 tabs 11/25/22 [Rx Last Taken Unknown] ezetimibe 10 mg tablet (Zetia) 10 mg PO DAILY #90 tabs 12/02/22 [Rx Last Taken Unknown] Allergy/AdvReac Type Severity Reaction Status Date / Time atorvastatin [From Lipitor] Allergy Unknown Verified 01/12/23 19:10 Penicillins Allergy Unknown Verified 01/12/23 19:10 pravastatin [From Pravachol] Allergy Unknown Verified 01/12/23 19:10 tolmetin Allergy Hives Verified 01/12/23 19:10 meloxicam AdvReac Other Verified 01/12/23 19:10 Family History Mother Breast cancer Myocardial infarction Hypertension Father Colon cancer Myocardial infarction Surgical History H/O rotator cuff surgery History of carpal tunnel surgery of right wrist History of left heart catheterization (02/2013) History of left hip replacement (01/2017) History of open reduction and internal fixation (ORIF) procedure History of total left hip arthroplasty Hx of arthroscopy of left knee Hx of arthroscopy of right knee Hx of arthroscopy of shoulder Hx of exploratory laparotomy Hx of release of tendon Hx of right cataract extraction S/P partial mastectomy Social History Smoking Status: Never smoker alcohol intake: never substance use type: does not use caffeine: Yes Type: carbonated beverages Number of servings: 3 what type of physical activity do you participate in: none ROS Review of Systems ROS Unobtainable: due to encephalopathy and due to mental status Respiratory/Chest Respiratory/Chest: Denies shortness of breath at rest Gastrointestinal Gastrointestinal: Denies abdominal pain Genitourinary Genitourinary: Denies dysuria Musculoskeletal Musculoskeletal: Denies back pain Neurologic Neurologic: Reports confusion; Denies focal weakness Vital Signs Vital Signs Vital Signs: 01/12/23 19:08 Temperature 98.0 F Temperature Source Temporal Pulse Rate 68 Respiratory Rate 18 Blood Pressure 143/90 H Blood Pressure Mean 107 Pulse Ox 97 Oxygen Delivery Method Room Air Physical Exam Const alert General Appearance: cooperative Orientation / Consciousness: confused HEENT normocephalic and head/scalp atraumatic Eyes PERRL Neck no lymphadenopathy Lymph Lymphatic: no lymphadenopathy noted Resp normal respiratory effort, normal air movement and clear to auscultation bilaterally Cardio regular rate, regular rhythm, S1 normal heart sound and S2 normal heart sound GI normal to inspection, nondistended, normoactive bowel sounds Extremity normal capillary refill Skin General Skin Exam: no breakdown Neuro no focal motor deficits and no sensory deficits noted Psych cooperative Appearance: appropriate Results Lab / Micro Data 01/12/23 20:30 01/12/23 20:30 Labs: Laboratory Results - last 24 hr 01/12/23 20:30: WBC 12.4 H, RBC 5.01, Hgb 14.9, Hct 46.5, MCV 92.8, MCH 29.7, MCHC 32.0, RDW Std Deviation 44.9 H, RDW Coeff of Héctor 13.2, Plt Count 284, MPV 12.4 H, Immature Gran % (Auto) 0.800, Neut % (Auto) 74.6 H, Lymph % (Auto) 13.2 L, [place] % (Auto) 8.8, Eos % (Auto) 2.0, Baso % (Auto) 0.6, Absolute Neuts (auto)9.3 H, Absolute Lymphs (auto) 1.63, Nucleated RBC % 0, Sodium 132 L, Potassium 3.9, Chloride 98, Carbon Dioxide 25.0, Anion Gap 9, BUN 60 H, Creatinine 4.82 H,Est GFR (MDRD) Af Amer 16 L, Est GFR (MDRD) Non-Af 13 L, BUN/Creatinine Ratio 12.4, Glucose 110 H, Calcium 9.3, Total Bilirubin 0.70, AST 17, ALT 40, AlkalinePhosphatase 110, Total Protein 7.0, Albumin 4.1, Globulin 2.9, Albumin/Globulin Ratio 1.4, Ethyl Alcohol < 3.0 Rhythm Strip Rhythm Strip: Sinus Rhythm Rate: 65 Ectopy: None Radiology Impression Brain CT 01/12/23 19:59 IMPRESSION: Nonspecific Nonspecific coarse calcifications within the cerebellum bilaterally. No acute disease. Electronically Signed: Kemar Dao MD at 20:45 EDT , Chest X-Ray 01/12/23 20:10 IMPRESSION: No acute disease Electronically Signed: Kemar Dao MD at 20:47 EDT , Assessment & Plan Assessment/Plan (1) Acute uremia: (2) Acute confusion: (3) Acute kidney failure: (4) Obesity, morbid, BMI 50 or higher: (5) Essential (primary) hypertension: PLAN: Plan 1 acute kidney disease/failure?admit patient to progressive care unit, repeat BMP in the morning IV hydration with normal saline at 150 cc/h overnight 2. Mental status changes?neurochecks overnight, CT scan of brain is negative for acute disease likely etiology is secondary to uremia 3. Hypertension?continue routine home medication 4. DVT prophylaxis?SCDs due to uremia we are unable to use [facility] Charges/Coding Visit Charges Inpatient E&M: 30519 Init Hosp L2 01/12/232237 <Electronically signed by Bubba Bailon MD> Cosigner Signature (if applicable): CC: Dr. Jj Eason MD; Dr. Bubba Bailon MD~ Signed [facility] Work Phone: [phone]) [phone] Discharge summary Author Kun Garrett [facility] January 12, 2023 11:13pm Note Date/Time January 12, 2023 8:05pm [facility] Medical Records Department [address] [place] [address] Emergency Department Summary 01/12/23 MR#: [id number] Acct: [id number] Name: MELIZA EASTMAN Rep #:[id number] : 1965 57 From: Kun Garrett MD PCP: Dr. Jj Eason MD Status:ADM IN Location: [address] History of Present Illness Chief Complaint: Confusion Informant: patient Onset/Context/Timing Onset: Today Context: Gradual Onset Timing: Continuous Maximum Severity: Mild Narrative Narrative: 57-year-old male past medical history of hypertension. Recently discharged fromlong term today. Brought in by friend or significant other who is currently not present due to mental status change. Patient does state he had a recent head injury but does not believe he lost consciousness. Does not believe he is on any blood thinners. Prior similar symptoms: No Recent Illness/Hospitalization: No PFSH [facility] Medical History Ambulates with cane Anxiety Anxiety and depression Arthritis Back pain Bipolar disorder Body mass index (BMI) 35 or more Breast mass, left Cancer Cardiology follow-up encounter Cataract, left eye Chest pain Chronic cough Chronic pain of both knees CPAP (continuous positive airway pressure) dependence Degenerative joint disease (DJD) of hip Depression Disc degeneration, lumbar Dizziness Essential (primary) hypertension Headache High cholesterol History of echocardiogram History of edema History of pain when walking History of stress test Hx of reactive hypoglycemia Hyperlipidemia Hypertension Iliotibial band syndrome affecting left lower leg Injury of head and neck Left shoulder pain Loss of consciousness Non-smoker Obesity Obesity RAY (obstructive sleep apnea) Osteoarthritis of right hip Osteoarthritis of right hip Pain Palpitations Primary osteoarthritis, left shoulder Primary osteoarthritis, right shoulder Right shoulder pain Shortness of breath on exertion SOBOE (shortness of breath on exertion) Wears glasses Home Medications multivitamin (Daily Multi-Vitamin tablet) 1 tab PO DAILY 12/01/19 [History Last Taken 03/16/22] carvedilol 12.5 mg tablet 12.5 mg PO BID 08/02/20 [History Last Taken 09/29/22] lamotrigine 200 mg tablet 400 mg PO QHS 08/02/20 [History Last Taken 03/16/22] acetaminophen 500 mg capsule 500 mg PO Q6H PRN Pain 05/21/21 [History Last Taken 03/16/22] bupropion HCl 150 mg tablet,12 hr sustained-release (Wellbutrin SR) 150 mg PO BID 12/03/21 [History Last Taken 03/16/22] diclofenac sodium 75 mg tablet,delayed release 75 mg PO BID 12/03/21 [History Last Taken 03/16/22] tramadol 50 mg tablet 50 mg PO Q8H PRN pain #21 tabs 01/27/22 [Rx Last Taken Unknown] lithium carbonate 300 mg capsule 300 mg PO DAILY 02/05/22 [History Last Taken 03/16/22] hydrochlorothiazide 25 mg tablet 25 mg PO DAILY #90 tabs 04/18/22 [Rx Last Taken Unknown] ascorbic acid (vitamin C) 500 mg tablet (Vitamin C) 1,000 mg PO DAILY 05/27/22 [History Last Taken Unknown] cholecalciferol (vitamin D3) 25 mcg (1,000 unit) chewable tablet (Vitamin D3) 2,000 unit PO DAILY 05/27/22 [History Last Taken Unknown] lithium carbonate 300 mg capsule 600 mg PO QHS 05/27/22 [History Last Taken Unknown] ramipril 10 mg capsule 10 mg PO QHS 05/27/22 [History Last Taken 09/29/22] gabapentin 800 mg tablet mg PO 11/14/22 [History Last Taken Unknown] tamsulosin 0.4 mg capsule mg PO 11/14/22 [History Last Taken Unknown] amlodipine 5 mg tablet 5 mg PO QHS #90 tabs 11/25/22 [Rx Last Taken Unknown] ezetimibe 10 mg tablet (Zetia) 10 mg PO DAILY #90 tabs 12/02/22 [Rx Last Taken Unknown] Allergy/AdvReac Type Severity Reaction Status Date / Time atorvastatin [From Lipitor] Allergy Unknown Verified 01/12/23 19:10 Penicillins Allergy Unknown Verified 01/12/23 19:10 pravastatin [From Pravachol] Allergy Unknown Verified 01/12/23 19:10 tolmetin Allergy Hives Verified 01/12/23 19:10 meloxicam AdvReac Other Verified 01/12/23 19:10 Family History Mother Breast cancer Myocardial infarction Hypertension Father Colon cancer Myocardial infarction Surgical History H/O rotator cuff surgery History of carpal tunnel surgery of right wrist History of left heart catheterization (02/2013) History of left hip replacement (01/2017) History of open reduction and internal fixation (ORIF) procedure History of total left hip arthroplasty Hx of arthroscopy of left knee Hx of arthroscopy of right knee Hx of arthroscopy of shoulder Hx of exploratory laparotomy Hx of release of tendon Hx of right cataract extraction S/P partial mastectomy Social History Smoking Status: Never smoker alcohol intake: never substance use type: does not use caffeine: Yes Type: carbonated beverages Number of servings: 3 what type of physical activity do you participate in: none ROS ROS ED ROS Narrative Denies. Limited due to status. Review of Systems ROS Unobtainable: due to mental status Constitutional Constitutional ED: Denies chills or fever(s) Eyes Eyes: Denies blurry vision ENT ENT ED: Denies ear pain Cardiovascular Cardiovascular: Denies chest pain Respiratory/Chest Respiratory/Chest: Denies cough or dyspnea Gastrointestinal Gastrointestinal: Denies abdominal pain Genitourinary Genitourinary ED: Denies dysuria Musculoskeletal Musculoskeletal: Denies arthralgias or back pain Integumentary Denies abscess or Abrasions Neurologic Neurologic: Denies headache(s) Psychiatric Psychiatric: Denies anxiety Endocrine Endocrinology: Denies cold intolerance or heat intolerance Hematologic/Lymphatic Hematologic/Lymphatic: Reports none Allergic/Immunologic Allergic/Immunologic ED: Denies mouth swelling, tongue swelling or urticaria EXAM Physical Exam Narrative Exam Narrative: 57-year-old male vital signs stable afebrile. He does seem slow and confused but he can answer questions appropriately. HEENT exam unremarkable atraumatic. Nontender. Pupils round react light motions are intact. Normal speech no facial droop. No trauma. Neck nontender. No meningismus. Lungs clear to auscultation. Heart regular rhythm rate about 70 no murmur. Chest wall and ribs nontender. Abdomen soft nontender. Moving all 4 extremities. Back unremarkable. Neurologically he is slow to respond but does answer questions. He does know the day of the week Thursday, month of the year in December initially thought it was September but then corrected himself. He knows the president night states. He knows what year it is. He is moving all 4 extremities. There is no focal motor deficits. Const Vital Signs: 01/12/23 19:08 Temperature 98.0 F Temperature Source Temporal Pulse Rate 68 Respiratory Rate 18 Blood Pressure 143/90 H Blood Pressure Mean 107 Pulse Ox 97 Oxygen Delivery Method Room Air Positive well nourished, well developed and obese; Negative for cachectic, contractures or unkempt General Appearance ED: well developed; Negative for unkempt, cachectic, contractures, diaphoretic or pallor Nutritional Appearance: obese; Negative for cachectic HEENT Reports moist mucous membranes; Denies dry mucous membranes Negative for trauma or tenderness Mouth ED: No dry mucous membranes Mouth: No dry mucous membranes Eyes PERRL and EOMs intact bilaterally General Eye ED: Negative for pale conjunctiva or scleral icterus Neck no lymphadenopathy, supple and no JVD General: Negative for tenderness Lymph Lymphatic: Negative for other Chest Wall inspection of chest normal and palpation of chest normal Chest: Negative for other Resp normal respiratory effort and clear to auscultation bilaterally Effort and Inspection: Negative for retractions Auscultation: Negative for rales, rhonchi or wheezes Cardio regular rate, regular rhythm, S1 normal heart sound, S2 normal heart sound and no murmurs Rate: Negative for bradycardia or tachycardic GI normal to inspection, nondistended, normoactive bowel sounds, non-tender, non-distended and no masses Inspection: Negative for abdominal distention Auscultation: normoactive bowel sounds Palpation: soft; Negative for tender or guarding Back/Spine no CVA tenderness General Back: Negative for CVA tenderness Cervical Spine: Negative for cervical spine tenderness Thoracic Spine / Upper Back: Negative for thoracic spinal tenderness or paraspinal muscle tenderness Lumbar Spine / Lower Back: Negative for lumbar spinal tenderness Extremity normal to inspection General Extremety ED: Negative for edema or tenderness General Extremity: Negative for edema Neuro oriented x3 and CN's II-XII intact bilaterally Sensorium / Orientation: alert; Negative for orientation impaired, lethargic or stuporous Motor Exam: strength 5/5 throughout Psych mental status grossly normal Appearance: Negative for unkempt Attitude: No agitated Mood & Affect: Negative for depressed, anxious or tearful Skin no rashes or lesions noted, no wounds and skin turgor normal General Skin Exam: elasticity normal; Negative for jaundice or pallor Lesions: No lesion noted Rashes: No rashes noted Trauma: Negative for abrasion Wounds: Negative for wounds noted MDM MDM MDM Narrative Medical decision making narrative: 57-year-old male limited informant with mental status change. CAT scan and labsare pending. No signs of acute stroke. Repeat exam unchanged at 10:20 PM. Patient will be admitted for acute kidney failure and uremia most likely causing his mental status change. No family has been present and I was able to discuss with them his presentation. I did compare his labs to prior labs he had normal kidney function 7 months ago. States he has been urinating. I will speak to the hospitalist about admission. Patient will be treated with a liter of normal saline. History & Record Review Discussion w/independent historian: Patient Lab Data Attestation: I reviewed the patient's lab results. Lab results narrative: CBC shows a white count of 12.4 H&H of 14 and 46. Platelets 284. Electrolytes show sodium 132 gap of 9 BUN and creatinine of 60 and 4.8 consistent with acute kidney failure. Glucose 110. Liver enzymes are normal. Alcohol is negative. Chest x-ray chronic changes. CAT scan chronic calcifications but no acute bleednor signs of acute stroke read by the radiologist and reviewed by me. Labs: Laboratory Results - last 24 hr 01/12/23 20:30 WBC 12.4 H RBC 5.01 Hgb 14.9 Hct 46.5 MCV 92.8 MCH 29.7 MCHC 32.0 RDW Std Deviation 44.9 H RDW Coeff of Héctor 13.2 Plt Count 284 MPV 12.4 H Immature Gran % (Auto) 0.800 Neut % (Auto) 74.6 H Lymph % (Auto) 13.2 L [place] % (Auto) 8.8 Eos % (Auto) 2.0 Baso % (Auto) 0.6 Absolute Neuts (auto) 9.3 H Absolute Lymphs (auto) 1.63 Nucleated RBC % 0 Sodium 132 L Potassium 3.9 Chloride 98 Carbon Dioxide 25.0 Anion Gap 9 BUN 60 H Creatinine 4.82 H Est GFR (MDRD) Af Amer 16 L Est GFR (MDRD) Non-Af 13 L BUN/Creatinine Ratio 12.4 Glucose 110 H Calcium 9.3 Total Bilirubin 0.70 AST 17 ALT 40 Alkaline Phosphatase 110 Total Protein 7.0 Albumin 4.1 Globulin 2.9 Albumin/Globulin Ratio 1.4 Ethyl Alcohol < 3.0 Radiography Chest X-Ray - ED: 1 View, Read by ED Physician, Read by Radiologist, Heart, Lungs, Mediastinum, Bony Structures, No Acute Disease and Chronic Changes Diagnostic Testing: Clinical Impression(s) from Imaging Studies Brain CT 01/12/23 19:59 IMPRESSION: Nonspecific Nonspecific coarse calcifications within the cerebellum bilaterally. No acute disease. Electronically Signed: Kemar Dao MD at 20:45 EDT Reading Location ID and State: [facility] / [place] Tel , Service support , Chest X-Ray 01/12/23 20:10 IMPRESSION: No acute disease Electronically Signed: Kemar Dao MD at 20:47 EDT , Chest x-ray, portable, single view shows a slightly elevated right hemidiaphragm. Normal cardiac silhouette. Normal lung bahena. Interpreted by myself and the radiologist. No acute disease. Rhythm Strip Rhythm Strip: Sinus Rhythm Rate: 65 Ectopy: None EKG Initial EKG: Attestation: I personally reviewed and interpreted this EKG as follows: Interpretation: Sinus Rhythm and No Acute Injury Pattern Comments: Normal sinus rhythm rate 65. Left bundle branch block. No acute signs of CA nor ischemia. Discharge Plan Dx/Rx/DC Orders Clinical Impression: Acute kidney failure, Acute confusion, Acute uremia Disposition Disposition: Acute Care Hospital [facility] What to do if you have Problems For any increased pain, shortness of breath, bleeding, nausea or vomiting, chestpain, or any unexpected problems, contact your Primary Care Provider. Call [facility] ([phone]) or report to the closest Emergency Room. Call 911 if necessary. 01/12/232312 <Electronically signed by Kun Garrett MD> Cosigner Signature (if applicable): CC: Dr. Jj Eason MD ~ Signed [facility] Work Phone: [phone] 840-689806-05-2023 Procedure [facility] 02-25-2022 History of Present illness Narrative* Lenin Yvonne DO Ximena - 02/25/2022 4:01 PM EDT Functional visual [...] agree withall of its relevant components. Lenin Bueno DO February 25, 2022 4:01 PM [facility] NoteMessage MELIZA EASTMAN canceled today . Patient cancelled initial evaluation this date. No reason provided. Signatures Electronically signed by : Mariana Contreras PT; Aug 27 2021 1:35PM EST (Author) [id number] History of Present illness Narrative* Austin Natarajan MD - 08/15/2020 11:12 AM EDT Dictation on: 08/15/2020 11:14 AM by: AUSTIN NATARAJAN [[id number]] documented in this [id number] NoteSend Summary: Discharge Summary Providers: Provider RoleProvider Name ReferringStone Rodarte James ConsultingYoder, Stephen A PrimarySmith, Eric A Note Recipients: Jj Eason MD - [id number] [] Discharge: Summary: Admission Date: .06-Apr-2020 14:39:00 Discharge Date: 10-Apr-2020 Attending Physician at Discharge: Elmer Vidal Admission Reason: Right ankle pain status post fall(1) Final Discharge Diagnoses: Right ankle fracture, morbid obesity Procedures: Date: 07-Apr-2020 11:27:00 Procedure Name: 1. Ankle Fracture ORIF Condition at Discharge: Satisfactory [facility]charge[facility] Vital Signs: T PRBPSpO2 Value36.49232620/7297% Date/Time04/10 7: 7: 7: 7: 7:00 Range(36.3C - 36.8C ) (66 - 78 ) (18 - 18 ) (132 - 146 )/ (72 - 80 ) (92% - 97% ) Date: Weight/Scale Type:Height: 06-Apr-2020 19:08375.2 kg / jci341.8 cm Physical Exam: Morbidly obese, sitting up [...] coordinated by the physician at the local [facility] facility until he can transfer back to Jj Eason MD in [place]. 40 minutes were spent in the coordination [...] He will need to follow-up with Dr. Natarajan in 2 weeks time for your ankle fracture. 6. Weight loss would be beneficial for your long-term health and sleep apnea. Rehab Services: Occupational Therapy Orders: Eval and Treat ([facility]) Physical Therapy Orders: Eval and Treat ([facility]) Nonweightbearing on right for approximately 4 weeks Care Recommendation: I recommend that INPATIENT care is req (more content not included)...[facility]12-12-2020 NotePROCEDURE DETAILS Preoperative Diagnosis: Right fracture ankle dislocation with high fibula fracture deltoid ligament tear and syndesmosis tear Postoperative Diagnosis: Same Surgeon: Austin Natarajan Resident/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 Note Recipients: Jj Eason MD - [id number] [] Austin Natarajan MD - [id number] [PREFERRED] Signatures/Attestation: Note Completion: Attending AttestationI performed the procedure without a resident Electronic Signatures: Austin Natarajan) (Signed 07-Apr-2020 11:35) Authored: Post-Operative Note, Chart Review, Note Completion Last Updated: 07-Apr-2020 11:35 by Austin Natarajan)[facility]12-11-2020 NoteHistory of Present Illness: Admission Reason: Right [...] consciousness. He said that he heard a snapon his right ankle as he was falling. 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 Jj Eason MD Status:ADM IN Y Location: [place] [address] Pharmacy [facility] Service has performed discharge medication reconciliation and counseling for this patient. The patient's discharge medication list was reviewed for discrepancies and discrepancies were resolved. The patient was counseled on the following discharge medications and changes in medications for homegoing were reviewed. The Reason for Use, instructions for use, and potential side effects were reviewed for all new medications. The patient's questions regarding all of their medications were answered. 1. nystatin 100,000 unit/mL, swish/swallow 5 ML PO 4x daily The patient was able to verbally demonstrate an understanding of their dischargemedications. Medications at Discharge Home Medications multivitamin (Daily Multi-Vitamin tablet) 1 tab PO DAILY supplement 12/01/19 carvedilol 12.5 mg tablet 12.5 mg PO BID 08/02/20 lamotrigine 200 mg tablet 400 mg PO QHS 08/02/20 acetaminophen 500 mg capsule 500 mg PO Q6H PRN Pain 05/21/21 bupropion HCl 150 mg tablet,12 hr sustained-release (Wellbutrin SR) 150 mg PO BID 12/03/21 diclofenac sodium 75 mg tablet,delayed release 75 mg PO BID 12/03/21 lithium carbonate 300 mg capsule 300 mg PO DAILY 02/05/22 ascorbic acid (vitamin C) 500 mg tablet (Vitamin C) 1,000 mg PO DAILY 05/27/22 cholecalciferol (vitamin D3) 25 mcg (1,000 unit) chewable tablet (Vitamin D3) 2,000 unit PO DAILY 05/27/22 ramipril 10 mg capsule 10 mg PO QHS bp 05/27/22 tamsulosin 0.4 mg capsule 0.4 mg PO Q24H prostate 11/14/22 amlodipine 5 mg tablet 5 mg PO QHS #90 tabs 11/25/22 ezetimibe 10 mg tablet (Zetia) 10 mg PO DAILY #90 tabs 12/02/22 lithium carbonate 300 mg capsule 300 mg PO QHS #0 caps 01/21/23 nystatin 100,000 unit/mL oral suspension 500,000 unit (5 mL) PO 4X/DAY #0 mL 01/21/23 01/21/23 1042 <Electronically signed by Jose meyers> Date _ Jose Hdz Signature (if applicable): Date CC: ~ Signed [facility] Work Phone: Consult note Author Guy Vallecillo [facility] Note Date/Time August 15, 2024 8:5 0am [facility] Medical Records Department [address] [place] [address] Anesthesia Postop Eval I 08/15/24 0846 MR#: [id number] Acct: [id number] Name: MELIZA EASTMAN A Rep #:[id number] : 1965 59 From: Guy barone CRNA PCP: Dr. Jj Eason MD Status:REG SDC Y Race: C Location: [place] [address] Anesthesia: Postop Eval I Current Vital Signs Temperature: 97.7 F Pulse Rate: 74 Blood Pressure: 140/80 Respiratory Rate: 18 Pulse Ox: 93 Oxygen Delivery Method: Room Air Assessment Airway patent: Yes Spontaneous unlabored respirations: Yes Mental status: Awake and Calm nausea: No Vomiting: No Anesthesia Complication: No Fluid Hydration Crystalloid volume administer (ml): 0 Total IV fluid infused: 0 Progress Note Anesthesia document: Postop Eval 1 completed: Yes 08/15/24 0850 <Electronically signed by Guy fregosor SYNOPTIC METEOROLOGIST> Date _ Guy Vallecillo SYNOPTIC METEOROLOGIST Cosigner Signature: Date CC: ~ Signed [facility] Work Phone: Consult note* Clinical Note Date No Information [facility] Work Phone: Discharge summary Author Jj To [facility] January 21, 2023 10:22am Note Date/Time January 21, 2023 10:18am [facility] Medical Records Department [address] [place] [address] Transfer to [facility] MR#: [id number] Acct: [id number] Name: MELIZA EASTMAN Rep #:[id number] : 1965 57 From: Jj To DO PCP: Dr. Jj Eason MD Status:ADM IN Certification of patient admission REQUIRED AT TIME OF ADMISSION. I CERTIFY THAT POST-HOSPITAL ECF SERVICES ARE REQUIRED TO BE GIVEN ON AN IN-PATIENT BASIS BECAUSE OF THE ABOVE NAMED PATIENT'S NEED FOR SENIOR CARE CARE ON A CONTINUING BASIS FOR THE CONDITION(S) FOR WHICH HE/SHE WAS RECEIVING IN-PATIENT HOSPITAL SERVICES PRIOR TO HIS/HER TRANSFER TO [facility]. 01/21/23 1022<Electronically signed by Jj To DO> Diet Diet Order/Speech Therapy: 01/15/23 14:13 Diet: Cardiac: Calorie-Controlled Is pt able to select menu?: No Diet Comments: Supervised Feed; Powerade Zero TID w/ meals How many daily calories?: 1999 calorie Routine Orders/Code Status Routine Lab Work: CBC (weekly) and BMP (weekly) Code Status: Full Code Therapies Weight Bearing: Full weight bearing Physical Therapy: Eval and Treat Occupational Therapy: Eval and Treat Problem/Diagnosis (1) [place] toxicity: Status: Acute Code(s): T56.891A - Toxic effect of other metals, accidental (unintentional), initial encounter Plan: Suspected [place] level 01/19 was 1.3 which is slightly high. It is unclear what the patient's lithium level was upon arrival but with patient's reported ataxia and confusion is concerning that the patient had lithium toxicity. Patient takes lithium 300 in the morning and 600 at night. I am recommending the dosing be changed to 300 twice daily. Will initiate the twice daily dosing starting 01/20. Patient advised to follow-up with a psychiatrist. Patient states that he has been on lithium for 30+ years. Seems that he has been on this for so long that is not caused him any problems in the past. (2) Acute kidney failure: Status: Acute Code(s): N17.9 - Acute kidney failure, unspecified Plan: Resolved with IVF Renal US unremarkable Holding HCTZ and lisinopril. Unclear if related with lithium toxicity. (3) Encephalopathy: Status: Acute Code(s): G93.40 - Encephalopathy, unspecified Plan: MRI shows chronic WM changes, likely due microvascular ischemia Likely multifactorial: metabolic from dehydration, toxic from decreased excretion of gabapentin in CARLOS and underlying psychiatric disorder Concerned that this may have been due to lithium toxicity. Appears to be resolved. Patient has gabapentin on his MAR but patient states that he has not taken that in 2 weeks. (4) Hypokalemia: Status: Acute Code(s): E87.6 - Hypokalemia Plan: Replace Mag 2.2 (5) Debility: Status: Acute Code(s): R53.81 - Other malaise Plan: Minimal ability on 01/18. Unsafe for home unless has 24h assistance Plan for SNF otherwise. Plan Chronic conditions: * Essential hypertension? Patient is currently on amlodipine as well as carvedilol his HCTZ and lisinopril held in view of impaired kidney function * Obstructive sleep apnea? Patient apparently has not been compliant with CPAP therapy * Class III obesity with BMI of 46.5? Weight loss advised * Bipolar disorder? Patient on lithium resumed DVT prophylaxis? SC heparin Disposition: To SNF Allergies/Procedures Done in Hospital Allergies atorvastatin [From Lipitor] Allergy (Verified 01/12/23 19:10) Unknown Penicillins Allergy (Verified 01/12/23 19:10) Unknown pravastatin [From Pravachol] Allergy (Verified 01/12/23 19:10) Unknown tolmetin Allergy (Verified 01/12/23 19:10) Hives meloxicam Adverse Reaction (Verified 01/12/23 19:10) Other OVERHEATING, SWEATING Type of Care/Length of Stay Estimated LOS: Convalescent Care Less Than 30 days Type of Care Needed: Skilled Rehab Potential: Good Prognosis: Good Additional Orders/Day of Discharge Day of Discharge: 01/21/23 Dietary and Speech Recommendations Dietitian Recommendations/Changes: Will continue 2000 calorie/cardiac diet; willadd Powerade Zero to meal trays as per pt request. ONS if PO fails at meals, will defer for now. Discharge Plan Admission Admit Date/Time: 01/12/23 22:39 Primary Reason for Your Visit: lithium toxicity Attending Provider: Jj To Primary Care Provider: Jj Eason Consulting Providers: Bubba Bailon; Dara Robert Instructions Additional Instructions / Restrictions: You presented with what is concerning for lithium toxicity. I have decreased her evening dose of lithium from 600 300 mg. So you will be on 300 mg twice daily. You will need to follow-up with your psychiatrist to see if there will need to be further adjustments of your lithium or to be discontinued altogether. Discharge Orders/Prescriptions Prescriptions: New nystatin 100,000 unit/mL Suspension 500,000 unit PO 4X/DAY Qty: 0 0RF lithium carbonate 300 mg Capsule 300 mg PO QHS Qty: 0 0RF Continued multivitamin [Daily Multi-Vitamin] Tablet 1 tab PO DAILY lamotrigine 200 mg tablet 400 mg PO QHS carvedilol 12.5 mg tablet 12.5 mg PO BID acetaminophen 500 mg capsule 500 mg PO Q6H PRN (Reason: Pain) bupropion HCl [Wellbutrin SR] 150 mg tablet sustained-release 12 hr 150 mg PO BID lithium carbonate 300 mg capsule 300 mg PO DAILY tamsulosin 0.4 mg capsule 0.4 mg PO Q24H Patient Comments: TAKE 1 CAPSULE BY MOUTH BEFORE BEDTIME diclofenac sodium 75 mg tablet,delayed release (DR/EC) 75 mg PO BID ascorbic acid (vitamin C) [Vitamin C] 500 mg Tablet 1,000 mg PO DAILY ramipril 10 mg Capsule 10 mg PO QHS cholecalciferol (vitamin D3) [Vitamin D3] 25 mcg (1,000 unit) tablet,chewable 2,000 unit PO DAILY amlodipine 5 mg tablet 5 mg PO QHS Qty: 90 3RF ezetimibe [Zetia] 10 mg tablet 10 mg PO DAILY Qty: 90 3RF Discontinued gabapentin 800 mg tablet 800 mg PO Q12H lithium carbonate 300 mg Capsule 600 mg PO QHS tramadol 50 mg tablet 50 mg PO Q8H PRN (Reason: pain) Qty: 21 0RF Rx Instructions: further narcotic prescriptions will need to be filled from PCP or pain management doctor. hydrochlorothiazide 25 mg tablet 25 mg PO DAILY Qty: 90 3RF Referrals / Follow Up: Jj Esaon MD [Primary Care Provider] - Within 2 Weeks Disposition Disposition (needs filled in before D/C Order can be placed): [facility] (1) [place] toxicity Qualifiers: Encounter type: initial encounter Injury intent: accidental or unintentional Qualified Code(s): T56.891A - Toxic effect of other metals, accidental (unintentional), initial encounter (2) Acute kidney failure Qualifiers: Acute renal failure type: unspecified Qualified Code(s): N17.9 - Acute kidneyfailure, unspecified 01/21/23 1022 <Electronically signed by Jj To DO> Cosigner Signature (if applicable): CC: Dr. Dara Robert MD; Dr. Jj Eason MD; Dr. Bubba Bailon MD ~ [facility] Work Phone: Discharge summary Author Jj To [facility] January 21, 2023 10:24am Note Date/Time January 21, 2023 10:24am [facility] Medical Records Department [address] [place] [address] Discharge Summary 01/21/23 1022 MR#: [id number] Acct: [id number] Name: MELIZA EASTMAN Rep #:[id number] : 1965 57 From: Jj To DO PCP: Dr. Jj Eason MD Status:ADM IN Location: [place] [address] Providers Date of Admission: 01/12/23 Primary Care Physician: Dr. Jj Eason MD Reason For Visit: ACUTE KIDNEY FAILURE, MENTAL STATUS CHANGE Diagnosis Discharge Diagnosis (1) [place] toxicity: Status: Acute Code(s): T56.891A - Toxic effect of other metals, accidental (unintentional), initial encounter Qualifiers: Encounter type: initial encounter Injury intent: accidental or unintentional Qualified Code(s): T56.891A - Toxic effect of other metals, accidental (unintentional), initial encounter Plan: Suspected [place] level 01/19 was 1.3 which is slightly high. It is unclear what the patient's lithium level was upon arrival but with patient's reported ataxia and confusion is concerning that the patient had lithium toxicity. Patient takes lithium 300 in the morning and 600 at night. I am recommending the dosing be changed to 300 twice daily. Will initiate the twice daily dosing starting 01/20. Patient advised to follow-up with a psychiatrist. Patient states that he has been on lithium for 30+ years. Seems that he has been on this for so long that is not caused him any problems in the past. (2) Acute kidney failure: Status: Acute Code(s): N17.9 - Acute kidney failure, unspecified Qualifiers: Acute renal failure type: unspecified Qualified Code(s): N17.9 - Acute kidney failure, unspecified Plan: Resolved with IVF Renal US unremarkable Holding HCTZ and lisinopril. Unclear if related with lithium toxicity. (3) Encephalopathy: Status: Acute Code(s): G93.40 - Encephalopathy, unspecified Plan: MRI shows chronic WM changes, likely due microvascular ischemia Likely multifactorial: metabolic from dehydration, toxic from decreased excretion of gabapentin in CARLOS and underlying psychiatric disorder Concerned that this may have been due to lithium toxicity. Appears to be resolved. Patient has gabapentin on his MAR but patient states that he has not taken that in 2 weeks. (4) Hypokalemia: Status: Acute Code(s): E87.6 - Hypokalemia Plan: Replace Mag 2.2 (5) Debility: Status: Acute Code(s): R53.81 - Other malaise Plan: Minimal ability on 01/18. Unsafe for home unless has 24h assistance Plan for SNF otherwise. Plan Chronic conditions: * Essential hypertension? Patient is currently on amlodipine as well as carvedilol his HCTZ and lisinopril held in view of impaired kidney function * Obstructive sleep apnea? Patient apparently has not been compliant with CPAP therapy * Class III obesity with BMI of 46.5? Weight loss advised * Bipolar disorder? Patient on lithium resumed DVT prophylaxis? SC heparin Disposition: To SNF Medications at Discharge Home Medications multivitamin (Daily Multi-Vitamin tablet) 1 tab PO DAILY supplement 12/01/19 carvedilol 12.5 mg tablet 12.5 mg PO BID 08/02/20 lamotrigine 200 mg tablet 400 mg PO QHS 08/02/20 acetaminophen 500 mg capsule 500 mg PO Q6H PRN Pain 05/21/21 bupropion HCl 150 mg tablet,12 hr sustained-release (Wellbutrin SR) 150 mg PO BID 12/03/21 diclofenac sodium 75 mg tablet,delayed release 75 mg PO BID 12/03/21 lithium carbonate 300 mg capsule 300 mg PO DAILY 02/05/22 ascorbic acid (vitamin C) 500 mg tablet (Vitamin C) 1,000 mg PO DAILY 05/27/22 cholecalciferol (vitamin D3) 25 mcg (1,000 unit) chewable tablet (Vitamin D3) 2,000 unit PO DAILY 05/27/22 ramipril 10 mg capsule 10 mg PO QHS bp 05/27/22 tamsulosin 0.4 mg capsule 0.4 mg PO Q24H prostate 11/14/22 amlodipine 5 mg tablet 5 mg PO QHS #90 tabs 11/25/22 ezetimibe 10 mg tablet (Zetia) 10 mg PO DAILY #90 tabs 12/02/22 lithium carbonate 300 mg capsule 300 mg PO QHS #0 caps 01/21/23 nystatin 100,000 unit/mL oral suspension 500,000 unit (5 mL) PO 4X/DAY #0 mL 01/21/23 Hospital Course Operations None Procedures None Summary of Care Provided Minutes Spent on Discharge: 35 Hospital Course: Patient presented with confusion, ataxia and acute kidney injury. Did resolve with IV fluids and holding his hydrochlorothiazide and ramipril. Patient has been on lithium for decades and lithium levels checked at 7 days after he was initially admitted and it was slightly elevated. The patient had gabapentin on his home medication reconciliation form, however, patient said that he had not taken that for weeks. Therefore, it is my feeling that his symptoms were attributable to acute lithium toxicity. Patient has been on lithium for years and has not really been adjusted due to him being on it for so long. Patient later endorsed that he has had issues where he may not take it at night because of how it makes him feel. Patient will need to follow-up with his psychiatrist to see if his lithium needs to be adjusted downwards or removed altogether. Itsbeen continued over these many years just because he has been on it for so long. Weight / BMI Weight Weight: 146.9 kg Body Mass Index (BMI) 46.4 ABG / Lab / Microbiology Data 01/19/23 05:48 01/19/23 05:48 Meaningful Use Info Meaningful Use Diagnoses (Choose all that apply): None applicable Discharge Plan Admission Admit Date/Time: 01/12/23 22:39 Primary Reason for Your Visit: lithium toxicity Attending Provider: Jj To Primary Care Provider: Jj Eason Consulting Providers: Bubba Bailon; Dara Robert Instructions Additional Instructions / Restrictions: You presented with what is concerning for lithium toxicity. I have decreased her evening dose of lithium from 600 300 mg. So you will be on 300 mg twice daily. You will need to follow-up with your psychiatrist to see if there will need to be further adjustments of your lithium or to be discontinued altogether. Discharge Orders/Prescriptions Prescriptions: New nystatin 100,000 unit/mL Suspension 500,000 unit PO 4X/DAY Qty: 0 0RF lithium carbonate 300 mg Capsule 300 mg PO QHS Qty: 0 0RF Continued multivitamin [Daily Multi-Vitamin] Tablet 1 tab PO DAILY lamotrigine 200 mg tablet 400 mg PO QHS carvedilol 12.5 mg tablet 12.5 mg PO BID acetaminophen 500 mg capsule 500 mg PO Q6H PRN (Reason: Pain) bupropion HCl [Wellbutrin SR] 150 mg tablet sustained-release 12 hr 150 mg PO BID lithium carbonate 300 mg capsule 300 mg PO DAILY tamsulosin 0.4 mg capsule 0.4 mg PO Q24H Patient Comments: TAKE 1 CAPSULE BY MOUTH BEFORE BEDTIME diclofenac sodium 75 mg tablet,delayed release (DR/EC) 75 mg PO BID ascorbic acid (vitamin C) [Vitamin C] 500 mg Tablet 1,000 mg PO DAILY ramipril 10 mg Capsule 10 mg PO QHS cholecalciferol (vitamin D3) [Vitamin D3] 25 mcg (1,000 unit) tablet,chewable 2,000 unit PO DAILY amlodipine 5 mg tablet 5 mg PO QHS Qty: 90 3RF ezetimibe [Zetia] 10 mg tablet 10 mg PO DAILY Qty: 90 3RF Discontinued gabapentin 800 mg tablet 800 mg PO Q12H lithium carbonate 300 mg Capsule 600 mg PO QHS tramadol 50 mg tablet 50 mg PO Q8H PRN (Reason: pain) Qty: 21 0RF Rx Instructions: further narcotic prescriptions will need to be filled from PCP or pain management doctor. hydrochlorothiazide 25 mg tablet 25 mg PO DAILY Qty: 90 3RF Referrals / Follow Up: Jj Eason MD [Primary Care Provider] - Within 2 Weeks Disposition Disposition (needs filled in before D/C Order can be placed): [facility] Charges/Coding Visit Charges Inpatient E&M: 01750 Disch Hosp >30min 01/21/23 1024 <Electronically signed by Jj To DO> Cosigner Signature (if applicable): CC: Dr. Jj To DO; Dr. 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, unspecified [facility] Onset Date Resolution Status Dizziness acute Essential (primary) hypertension chronic Hyperlipidemia chronic Palpitations chronic Left shoulder pain acute Primary osteoarthritis, left shoulder acute Primary osteoarthritis, right shoulder acute [facility] Work Phone: Evaluation note* Diagnosis Onset Date Resolution Status Primary osteoarthritis, left shoulder acute Primary osteoarthritis, right shoulder acute Primary osteoarthritis, left shoulder acute Preop cardiovascular exam ac [place] ira Essential (primary) hypertension chronic Hyperlipidemia chronic [facility] Work Phone: Evaluation note* Diagnosis Onset Date Resolution Status Primary osteoarthritis, left shoulder acute Preop cardiovascular exam ac [place] Essential (primary) hypertension chronic Hyperlipidemia chronic Primary osteoarthritis, left shoulder acute [facility] Work Phone: Evaluation note* Diagnosis Onset Date Resolution Status Primary osteoarthritis, left shoulder acute [facility] [facility] Work Phone: Evaluation note* Diagnosis Onset Date Resolution Status Bilateral primary osteoarthritis of knee acute Obesity, morbid, BMI 50 or higher acute Acute confusion acute Acute kidney failure acute Acute uremia acute Obesity, morbid, BMI 50 or higher acute Essential (primary) hypertension [facility] Work Phone: Evaluation note* Diagnosis Onset Date Resolution Status Bilateral primary osteoarthritis of knee acute Obesity, morbid, BMI 50 or higher acute Acute confusion acute Acute kidney failure acute Acute uremia acute Debility acute Encephalopathy acute Hypokalemia acute [place] toxicity acute Obesity, morbid, BMI 50 or higher acute Essential (primary) hypertension [facility] Work Phone: Evaluation note* Diagnosis Onset Date Resolution Status Bilateral primary osteoarthritis of knee acute Debility acute Acute confusion resolved Acute kidney failure resolve d Encephalopathy resolved Hypokalemia resolved [place] toxicity resolved Abnormal lithium level in blood acute Acute kidney injury acute Dehydration acute Fall acute History of bipolar disorder acute [facility] Work Phone: Evaluation note* Diagnosis Onset Date Resolution Status Bilateral primary osteoarthritis of knee acute Debility acute Acute confusion resolved Acute kidney failure resolve d Encephalopathy resolved Hypokalemia resolved [place] toxicity resolved Abnormal lithium level in blood acute Acute kidney injury acute Dehydration acute Fall acute History of bipolar disorder acute Acute kidney injury acute Intractable nausea and vomiting acute Medical non-compliance acute Metabolic encephalopathy acu te [facility] Work Phone: Evaluation note* Diagnosis Onset Date Resolution Status Debility acute Acute confusion resolved Acute kidney failure resolve d Encephalopathy resolved Hypokalemia resolved [place] toxicity resolved Dehydration acute Fall acute Acute kidney injury resolved Acute kidney injury resolved Intractable nausea and vomiting resolved Medical non-compliance resol janny Metabolic encephalopathy res olved [facility] Work Phone: Evaluation note* Diagnosis Onset Date Resolution Status Dehydration acute Fall acute Acute kidney injury resolved Acute kidney injury resolved Intractable nausea and vomiting resolved Medical non-compliance resol janny Metabolic encephalopathy res olved Other cervical disc degenera tion, mid-cervical region, unspecified level acute [facility] Work Phone: Evaluation note* Diagnosis Onset Date Resolution Status Other cervical disc degenera tion, mid-cervical region, unspecified level acute Primary osteoarthritis, left shoulder acute Primary osteoarthritis, right shoulder acute Cervical myelopathy acute Bilateral primary osteoarthritis of knee acute Bilateral primary osteoarthritis of knee acute Cervical myelopathy acute [facility] Work Phone: Evaluation note* Diagnosis Cervical spondylosis with myelopathy- Primary 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 (HCC) 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 Onset Date Resolution Status Other cervical disc degenera tion, mid-cervical region, unspecified level acute Primary osteoarthritis, left shoulder acute Primary osteoarthritis, right shoulder acute Cervical myelopathy acute Bilateral primary osteoarthritis of knee acute Bilateral primary osteoarthritis of knee acute Cervical myelopathy acute Dizziness acute Hyperlipidemia chronic Bilateral primary osteoarthritis of knee acute Primary osteoarthritis, left shoulder acute Primary osteoarthritis, right shoulder acute [facility] Work Phone: Evaluation note* Diagnosis Onset Date Resolution Status Primary osteoarthritis, left shoulder acute Primary osteoarthritis, right shoulder acute Cervical myelopathy acute Bilateral primary osteoarthritis of knee acute Bilateral primary osteoarthritis of knee acute Cervical myelopathy acute Dizziness acute Hyperlipidemia chronic Bilateral primary osteoarthritis of knee acute Primary osteoarthritis, left shoulder acute Primary osteoarthritis, right shoulder acute [facility] Work Phone: Evaluation note* Diagnosis Left shoulder pain Pain in joint, shoulder region documented in this encounter [facility] Work Phone: Evaluation note* Diagnosis Heterotopic ossification- [facility] Diagnosis Heterotopic ossification- Primary documented in this encounter [facility] note* Diagnosis Unilateral primary osteoarthritis, right hip- Primary documented in this encounter [facility] note* Diagnosis Heterotopic ossification- Primary documented in this encounter [facility] note* Type Assessment Date No Information [facility] Work Phone: History and physical note Author Bubba Bailon [facility] January 12, 2023 10:38pm Note Date/Time January 12, 2023 10:33pm [facility] Medical Records Department [address] [place] [address] History & Physical Exam 01/12/23 2231 MR#: [id number] Acct: [id number] Name: MELIZA EASTMAN Rep #:[id number] : 1965 57 From: Bubba Bailon MD PCP: Dr. Jj Eason MD Status:REG ER Location: ED HPI - General General Date of Admission: 01/12/23 Date of Service: 01/12/23 Chief Complaint: Change in mental status HPI Narrative MELIZA EASTMAN, is a 57 M who presents to the emergency room with chief complaint of mental status change. Patient was released from long term earlier todayand dropped at the emergency room by his significant other who subsequently leftand is unavailable for further history. The patient is confused but denies any current pain, shortness of breath, fevers or chills and/or nausea and vomiting. He does have a history of hypertension and laboratory studies are unremarkable for acute changes and CT scan of the head. Laboratory studies are remarkable for elevated creatinine of 4.8 and patient has no previous past documentation ofkidney disease. He will be admitted to progressive care unit monitored for mental status and hydrated overnight for acute kidney disease. [facility] Medical History Ambulates with cane Anxiety Anxiety and depression Arthritis Back pain Bipolar disorder Body mass index (BMI) 35 or more Breast mass, left Cancer Cardiology follow-up encounter Cataract, left eye Chest pain Chronic cough Chronic pain of both knees CPAP (continuous positive airway pressure) dependence Degenerative joint disease (DJD) of hip Depression Disc degeneration, lumbar Dizziness Essential (primary) hypertension Headache High cholesterol History of echocardiogram History of edema History of pain when walking History of stress test Hx of reactive hypoglycemia Hyperlipidemia Hypertension Iliotibial band syndrome affecting left lower leg Injury of head and neck Left shoulder pain Loss of consciousness Non-smoker Obesity Obesity RAY (obstructive sleep apnea) Osteoarthritis of right hip Osteoarthritis of right hip Pain Palpitations Primary osteoarthritis, left shoulder Primary osteoarthritis, right shoulder Right shoulder pain Shortness of breath on exertion SOBOE (shortness of breath on exertion) Wears glasses Home Medications multivitamin (Daily Multi-Vitamin tablet) 1 tab PO DAILY 12/01/19 [History Last Taken 03/16/22] carvedilol 12.5 mg tablet 12.5 mg PO BID 08/02/20 [History Last Taken 09/29/22] lamotrigine 200 mg tablet 400 mg PO QHS 08/02/20 [History Last Taken 03/16/22] acetaminophen 500 mg capsule 500 mg PO Q6H PRN Pain 05/21/21 [History Last Taken 03/16/22] bupropion HCl 150 mg tablet,12 hr sustained-release (Wellbutrin SR) 150 mg PO BID 12/03/21 [History Last Taken 03/16/22] diclofenac sodium 75 mg tablet,delayed release 75 mg PO BID 12/03/21 [History Last Taken 03/16/22] tramadol 50 mg tablet 50 mg PO Q8H PRN pain #21 tabs 01/27/22 [Rx Last Taken Unknown] lithium carbonate 300 mg capsule 300 mg PO DAILY 02/05/22 [History Last Taken 03/16/22] hydrochlorothiazide 25 mg tablet 25 mg PO DAILY #90 tabs 04/18/22 [Rx Last Taken Unknown] ascorbic acid (vitamin C) 500 mg tablet (Vitamin C) 1,000 mg PO DAILY 05/27/22 [History Last Taken Unknown] cholecalciferol (vitamin D3) 25 mcg (1,000 unit) chewable tablet (Vitamin D3) 2,000 unit PO DAILY 05/27/22 [History Last Taken Unknown] lithium carbonate 300 mg capsule 600 mg PO QHS 05/27/22 [History Last Taken Unknown] ramipril 10 mg capsule 10 mg PO QHS 05/27/22 [History Last Taken 09/29/22] gabapentin 800 mg tablet mg PO 11/14/22 [History Last Taken Unknown] tamsulosin 0.4 mg capsule mg PO 11/14/22 [History Last Taken Unknown] amlodipine 5 mg tablet 5 mg PO QHS #90 tabs 11/25/22 [Rx Last Taken Unknown] ezetimibe 10 mg tablet (Zetia) 10 mg PO DAILY #90 tabs 12/02/22 [Rx Last Taken Unknown] Allergy/AdvReac Type Severity Reaction Status Date / Time atorvastatin [From Lipitor] Allergy Unknown Verified 01/12/23 19:10 Penicillins Allergy Unknown Verified 01/12/23 19:10 pravastatin [From Pravachol] Allergy Unknown Verified 01/12/23 19:10 tolmetin Allergy Hives Verified 01/12/23 19:10 meloxicam AdvReac Other Verified 01/12/23 19:10 Family History Mother Breast cancer Myocardial infarction Hypertension Father Colon cancer Myocardial infarction Surgical History H/O rotator cuff surgery History of carpal tunnel surgery of right wrist History of left heart catheterization (02/2013) History of left hip replacement (01/2017) History of open reduction and internal fixation (ORIF) procedure History of total left hip arthroplasty Hx of arthroscopy of left knee Hx of arthroscopy of right knee Hx of arthroscopy of shoulder Hx of exploratory laparotomy Hx of release of tendon Hx of right cataract extraction S/P partial mastectomy Social History Smoking Status: Never smoker alcohol intake: never substance use type: does not use caffeine: Yes Type: carbonated beverages Number of servings: 3 what type of physical activity do you participate in: none ROS Review of Systems ROS Unobtainable: due to encephalopathy and due to mental status Respiratory/Chest Respiratory/Chest: Denies shortness of breath at rest Gastrointestinal Gastrointestinal: Denies abdominal pain Genitourinary Genitourinary: Denies dysuria Musculoskeletal Musculoskeletal: Denies back pain Neurologic Neurologic: Reports confusion; Denies focal weakness Vital Signs Vital Signs Vital Signs: 01/12/23 19:08 Temperature 98.0 F Temperature Source Temporal Pulse Rate 68 Respiratory Rate 18 Blood Pressure 143/90 H Blood Pressure Mean 107 Pulse Ox 97 Oxygen Delivery Method Room Air Physical Exam Const alert General Appearance: cooperative Orientation / Consciousness: confused HEENT normocephalic and head/scalp atraumatic Eyes PERRL Neck no lymphadenopathy Lymph Lymphatic: no lymphadenopathy noted Resp normal respiratory effort, normal air movement and clear to auscultation bilaterally Cardio regular rate, regular rhythm, S1 normal heart sound and S2 normal heart sound GI normal to inspection, nondistended, normoactive bowel sounds Extremity normal capillary refill Skin General Skin Exam: no breakdown Neuro no focal motor deficits and no sensory deficits noted Psych cooperative Appearance: appropriate Results Lab / Micro Data 01/12/23 20:30 01/12/23 20:30 Labs: Laboratory Results - last 24 hr 01/12/23 20:30: WBC 12.4 H, RBC 5.01, Hgb 14.9, Hct 46.5, MCV 92.8, MCH 29.7, MCHC 32.0, RDW Std Deviation 44.9 H, RDW Coeff of Héctor 13.2, Plt Count 284, MPV 12.4 H, Immature Gran % (Auto) 0.800, Neut % (Auto) 74.6 H, Lymph % (Auto) 13.2 L, [place] % (Auto) 8.8, Eos % (Auto) 2.0, Baso % (Auto) 0.6, Absolute Neuts (auto)9.3 H, Absolute Lymphs (auto) 1.63, Nucleated RBC % 0, Sodium 132 L, Potassium 3.9, Chloride 98, Carbon Dioxide 25.0, Anion Gap 9, BUN 60 H, Creatinine 4.82 H,Est GFR (MDRD) Af Amer 16 L, Est GFR (MDRD) Non-Af 13 L, BUN/Creatinine Ratio 12.4, Glucose 110 H, Calcium 9.3, Total Bilirubin 0.70, AST 17, ALT 40, AlkalinePhosphatase 110, Total Protein 7.0, Albumin 4.1, Globulin 2.9, Albumin/Globulin Ratio 1.4, Ethyl Alcohol < 3.0 Rhythm Strip Rhythm Strip: Sinus Rhythm Rate: 65 Ectopy: None Radiology Impression Brain CT 01/12/23 19:59 IMPRESSION: Nonspecific Nonspecific coarse calcifications within the cerebellum bilaterally. No acute disease. Electronically Signed: Kemar Dao MD at 20:45 EDT , Chest X-Ray 01/12/23 20:10 IMPRESSION: No acute disease Electronically Signed: Kemar Dao MD at 20:47 EDT , Assessment & Plan Assessment/Plan (1) Acute uremia: (2) Acute confusion: (3) Acute kidney failure: (4) Obesity, morbid, BMI 50 or higher: (5) Essential (primary) hypertension: PLAN: Plan 1 acute kidney disease/failure?admit patient to progressive care unit, repeat BMP in the morning IV hydration with normal saline at 150 cc/h overnight 2. Mental status changes?neurochecks overnight, CT scan of brain is negative for acute disease likely etiology is secondary to uremia 3. Hypertension?continue routine home medication 4. DVT prophylaxis?SCDs due to uremia we are unable to use [employer] Charges/Coding Visit Charges Inpatient E&M: 29191 Init Hosp L2 01/12/232237 <Electronically signed by Bubba Bailon MD> Cosigner Signature (if applicable): CC: Dr. Jj Eason MD; Dr. Bubba Bailon MD~ Signed [facility] Work Phone: History and physical note Author Aneudy [facility] February 25, 2023 3:46pm Note Date/Time February 25, 2023 3 :38pm [facility] Medical Records Department [address] [place] [id number] H&P Exam - Hospitalist 02/25/23 1536 MR#: [id number] Acct: [id number] Name: MELIZA EASTMAN Rep #:[id number] : 1965 57 From: Aneudy Case DO PCP: Dr. Jj Eason MD Status:[facility] - General General Date of Admission: 02/25/23 Date of Service: 02/25/23 Chief Complaint: Confusion, lethargy HPI Narrative MELIZA EASTMAN, is a 57 M who presents to the emergency room at [facility] after being transported from the local long term where he resides temporarily-his release date is March 11-he has been unsteady on his feet today and somewhat confused. 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 Labs done in the emergency room were abnormal for creatinine of 4.85, BUN was 38, white blood cell count was 11.6 and hemoglobin was 12.3. Patient's lithium level was 2.2 On examination, patient appeared mildly confused, he was hard to arouse to ask questions and review of systems was not obtainable from the patient. Patient will be admitted to [place] [address] for acute kidney injury and metabolic encephalopathy. [facility] Medical History Ambulates with cane Anxiety Anxiety and depression Arthritis Back pain Bipolar disorder Body mass index (BMI) 35 or more Breast mass, left Cancer Cardiology follow-up encounter Cataract, left eye Chest pain Chronic cough Chronic pain of both knees CPAP (continuous positive airway pressure) dependence Degenerative joint disease (DJD) of hip Depression Disc degeneration, lumbar Dizziness Essential (primary) hypertension Headache High cholesterol History of echocardiogram History of edema History of pain when walking History of stress test Hx of reactive hypoglycemia Hyperlipidemia Hypertension Iliotibial band syndrome affecting left lower leg Injury of head and neck Left shoulder pain Loss of consciousness Non-smoker Obesity Obesity RAY (obstructive sleep apnea) Osteoarthritis of right hip Osteoarthritis of right hip Pain Palpitations Primary osteoarthritis, left shoulder Primary osteoarthritis, right shoulder Right shoulder pain Shortness of breath on exertion SOBOE (shortness of breath on exertion) Wears glasses Home Medications multivitamin (Daily Multi-Vitamin tablet) 1 tab PO DAILY supplement 12/01/19 [History Last Taken 01/12/23] carvedilol 12.5 mg tablet 25 mg PO BID blood pressure 08/02/20 [History Last Taken 09/29/22] lamotrigine 200 mg tablet 400 mg PO QHS skin 08/02/20 [History Last Taken 03/16/22] acetaminophen 500 mg capsule 500 mg PO Q6H PRN Pain 05/21/21 [History Last Taken 03/16/22] bupropion HCl 150 mg tablet,12 hr sustained-release (Wellbutrin SR) 150 mg PO BID depression 12/03/21 [History Last Taken 03/16/22] diclofenac sodium 75 mg tablet,delayed release 75 mg PO BID pain 12/03/21 [History Last Taken 03/16/22] lithium carbonate 300 mg capsule 300 mg PO DAILY psych 02/05/22 [History Last Taken 03/16/22] ascorbic acid (vitamin C) 500 mg tablet (Vitamin C) 1,000 mg PO DAILY vitamin 05/27/22 [History Last Taken Unknown] cholecalciferol (vitamin D3) 25 mcg (1,000 unit) chewable tablet (Vitamin D3) 2,000 unit PO DAILY vitamin 05/27/22 [History Last Taken Unknown] ramipril 10 mg capsule 10 mg PO QHS bp 05/27/22 [History Last Taken 09/29/22] tamsulosin 0.4 mg capsule 0.4 mg PO Q24H prostate 11/14/22 [History Last Taken Unknown] amlodipine 5 mg tablet 5 mg PO QHS blood pressure #90 tabs 11/25/22 [Rx Last Taken Unknown] ezetimibe 10 mg tablet (Zetia) 10 mg PO DAILY cholesterol #90 tabs 12/02/22 [Rx Last Taken Unknown] lithium carbonate 300 mg capsule 300 mg PO QHS depression #0 caps 01/21/23 [Rx Last Taken Unknown] nystatin 100,000 unit/mL oral suspension 500,000 unit (5 mL) PO 4X/DAY skin #0 mL 01/21/23 [Rx Last Taken Unknown] gabapentin 800 mg tablet 800 mg PO QHS pain 02/25/23 [History Last Taken Unknown] hydralazine 25 mg tablet 50 mg PO Q12H blood pressure 02/25/23 [History Last Taken Unknown] Allergy/AdvReac Type Severity Reaction Status Date / Time atorvastatin [From Lipitor] Allergy Unknown Verified 02/25/23 15:00 Penicillins Allergy Unknown Verified 02/25/23 15:00 pravastatin [From Pravachol] Allergy Unknown Verified 02/25/23 15:00 tolmetin Allergy Hives Verified 02/25/23 15:00 meloxicam AdvReac Other Verified 02/25/23 15:00 Family History Mother Breast cancer Myocardial infarction Hypertension Father Colon cancer Myocardial infarction Surgical History H/O rotator cuff surgery History of carpal tunnel surgery of right wrist History of left heart catheterization (02/2013) History of left hip replacement (01/2017) History of open reduction and internal fixation (ORIF) procedure History of total left hip arthroplasty Hx of arthroscopy of left knee Hx of arthroscopy of right knee Hx of arthroscopy of shoulder Hx of exploratory laparotomy Hx of release of tendon Hx of right cataract extraction S/P partial mastectomy Social History Smoking Status: Never smoker alcohol intake: never substance use type: does not use caffeine: Yes Type: carbonated beverages Number of servings: 3 what type of physical activity do you participate in: none ROS ROS Narrative Not able to be obtained due to mild confusion and encephalopathy Review of Systems ROS Unobtainable: due to encephalopathy Vital Signs Vital Signs Vital Signs: 02/25/23 12:32 02/25/23 14:15 02/25/23 14:57 Temperature 98.2 F Temperature Source Oral Pulse Rate 59 L 88 60 Respiratory Rate 16 16 16 Blood Pressure 97/67 154/105 H 93/51 L Blood Pressure Mean 77 121 65 Pulse Ox 98 98 99 Oxygen Delivery Method Room Air Room Air Weight Weight: 137.2 kg Body Mass Index (BMI) 43.4 Physical Exam Const no apparent distress, average body habitus and healthy appearing Constitutional Narrative: Patient is lethargic, he can answer some questions appropriately but is sleepy General Appearance: cooperative, well kempt and well developed Orientation / Consciousness: oriented to person and oriented to place HEENT normocephalic, head/scalp atraumatic and hearing grossly normal bilaterally HEENT Narrative: Mucous membranes are dry Eyes PERRL, EOMs intact bilaterally and conjunctivae normal Neck supple, no JVD, thyroid normal and no carotid bruits General: trachea midline Resp normal respiratory effort, no retractions, no use of accessory muscles and clearto auscultation bilaterally Auscultation: Negative for rales, rhonchi or wheezes Cardio regular rate, regular rhythm, S1 normal heart sound, S2 normal heart sound, no murmurs, no rub, no gallops, no clicks and no JVD GI normal to inspection, nondistended, normoactive bowel sounds, soft to palpation,non-tender and non-distended Extremity no clubbing, cyanosis or edema Skin no rashes or lesions noted General Skin Exam: no breakdown Neuro CN's II-XII intact bilaterally, moves all extremities, no focal motor deficits and no sensory deficits noted Neuro Narrative: Patient is lethargic, he awakens to tactile stimulation and some verbal stimulation, he does answer some questions appropriately but is overall sleepy Speech: speech normal Psych Psych Narrative: Patient is lethargic and sleepy Results Lab / Micro Data 02/25/23 12:50 02/25/23 12:50 Labs: Laboratory Results - last 24 hr 02/25/23 12:50: WBC 11.6 H, RBC 4.12 L, Hgb 12.3 L, Hct 39.0 L, MCV 94.7 H, MCH 29.9, MCHC 31.5 L, RDW Std Deviation 52.2 H, RDW Coeff of Héctor 15.0 H, Plt Count 293, MPV 12.3 H, Immature Gran % (Auto) 1.300 H, Neut % (Auto) 63.7, Lymph % (Auto) 21.3, [place] % (Auto) 10.1 H, Eos % (Auto) 2.7, Baso % (Auto) 0.9, AbsoluteNeuts (auto) 7.4, Absolute Lymphs (auto) 2.47, Nucleated RBC % 0, Sodium 135 L, Potassium 3.6, Chloride 100, Carbon Dioxide 23.0, Anion Gap 12, BUN 38 H, Creatinine 4.85 H, Estim Creat Clear Calc 17.35, Est GFR (MDRD) Af Amer 16 L, Est GFR (MDRD) Non-Af 13 L, BUN/Creatinine Ratio 7.8 L, Glucose 93, Calcium 9.5,Total Bilirubin 0.70, AST 14 L, ALT 24, Alkaline Phosphatase 81, Total Protein 6.7, Albumin 3.8, Globulin 2.9, Albumin/Globulin Ratio 1.3 02/25/23 13:15: [place] 2.20 H* Radiology Impression Brain CT 02/25/23 13:17 IMPRESSION: No acute abnormality is seen. Stable coarse calcifications seen in both right and left cerebellar hemispheres. Electronically Signed: Daniel Torres MD at 13:34 EDT , Chest X-Ray 02/25/23 13:20 IMPRESSION: No acute abnormality is seen. Electronically Signed: Daniel Torres MD at 13:39 EDT , Assessment & Plan Assessment/Plan (1) Acute kidney injury: PLAN: Plan 1. Acute kidney injury-patient will be admitted to [facility] 3 and given IV fluids, labs will be monitored, patient's diclofenac will be held #2 elevated lithium level-patient's lithium will be held, lithium level will be repeated tomorrow #3 metabolic encephalopathy secondary to #1-supportive care will be offered, patient will be reevaluated tomorrow #4 bipolar disorder-patient will remain on his medications except for his lithium #5 hyperlipidemia-patient is on Zetia #6 hypertension-patient's ramipril will be held at this time due to his elevatedkidney functions, blood pressure will be monitored #7 obstructive sleep apnea-patient does not use CPAP, he is noncompliant Total clinical time spent by myself addressing the patient's medical issues, reviewing all of his data, and collaborating with patient's care team: 55 minutes Charges/Coding Visit Charges Inpatient E&M: 17626 Init Hosp L2 02/25/23 4964 <Electronically signed by Aneudy Case DO> Cosigner Signature (if applicable): CC: Dr. Jj Esaon MD; Dr. Aneudy Case DO~ Signed [facility] Work Phone: History and physical note* Clinical Note Date No Information [facility] Work Phone: History of Present illness NarrativePatient confirmed name and date of . Patient able to increase reps today with fair tolerance. Added unloading activities today, able to maintain good form. Performed LE activities in small rangeto allow for pain free range of motion. [facility] Work Phone: History of Present illness [...] you for this referral and please call [phone] with any questions or concerns. * Clinical Presentation: Stable and/or uncomplicated characteristics. * Level of Complexity: low * Problem List: activity limitations, ADLs/IADLs/self care skills, balance, decreased functional level, decreased knowledge of HEP, flexibility, gait/locomotion, pain, participation restrictions, rangeof motion/joint mobility, strength and transfers. [facility] Work Phone: History of Present illness NarrativePatient was identified by name and date. He was late to pool session by 15 mins This session able to increased reps with LE exercises and increase resistance with paddle exercises. No c/o with new additions to program. [facility] Work Phone: Hospital course Narrative No data available for this section [facility] Hospital Discharge instructions* Attachments The following attachments cannot be sent through Care Everywhere. * Walker Instructions: General Info (Slovenian) * Acute Pain Management: General Info (Slovenian) * Fall Prevention (Slovenian) * DVT (Deep Vein Thrombosis): Prevention: General Info (Slovenian) * Constipation (Slovenian) * Incentive Spirometer: General Info (Slovenian) [facility] No data available for this section [facility] Instructions* Date Instruction Additional Infor mation No Information [facility] Work Phone: Progress note Author Jj To [facility] January 21, 2023 10:17am Note Date/Time January 21, 2023 9:37am [facility] Medical Records Department [address] [place] [address] Progress Note - Hospitalist 01/21/23 0936 MR#: [id number] Acct: [id number] Name: MELIZA EASTMAN Rep #:[id number] : 1965 57 From: Jj To DO PCP: Dr. Jj Eason MD Status:ADM IN Location: [place] [address] Reason for Visit Reason for Visit: Diagnoses Morbid (severe) obesity due to excess calories (01/12/23) Hypokalemia (01/12/23) Encephalopathy, unspecified (01/12/23) Essential (primary) hypertension (01/12/23) Acute kidney failure, unspecified (01/12/23) Unspecified kidney failure (01/12/23) Disorientation, unspecified (01/12/23) Other malaise (01/12/23) Toxic effect of other metals, accidental (unintentional), initial encounter (01/12/23) Subjective Subjective Feels well. Had some vomiting this AM when brushing his teeth. Objective Data Objective Data Vital Signs: Vital Signs Temp Pulse Resp BP Pulse Ox O2 Del Method 36.9 C 63 16 151/85 H 95 Room Air 01/21/23 05:27 01/21/23 05:27 01/21/23 05:27 01/21/23 05:27 01/21/23 05:27 01/21/23 05:27 Oxygen Delivery Method Room Air Weight: 146.9 kg Body Mass Index (BMI) 46.4 Intake & Output: Intake and Output for Last 24 Hours 01/19/23 01/20/23 01/21/23 23:59 23:59 23:59 Intake Total 720 / 720 1170 / 1170 650 / 650 Output Total 800 / 800 1101 / 1101 350 / 350 Balance -80 / -80 69 / 69 300 / 300 Lab / Micro Data 01/19/23 05:48 01/19/23 05:48 Rhythm Strip Rhythm Strip: Sinus Rhythm Rate: 65 Ectopy: None Physical Exam Const alert and no apparent distress Cardio regular rate, regular rhythm, S1 normal heart sound and S2 normal heart sound GI normal to inspection, nondistended, normoactive bowel sounds, soft to palpation,non-tender and non-distended Extremity normal to inspection Assessment & Plan Assessment/Plan (1) [place] toxicity: QUALIFIERS: Encounter type: initial encounter Injury intent: accidental or unintentional Qualified Code(s): T56.891A - Toxic effect of othermetals, accidental (unintentional), initial encounter PLAN: Suspected [place] level 01/19 was 1.3 which is slightly high. It is unclear what the patient's lithium level was upon arrival but with patient's reported ataxia and confusion is concerning that the patient had lithium toxicity. Patient takes lithium 300 in the morning and 600 at night. I am recommending the dosing be changed to 300 twice daily. Will initiate the twice daily dosing starting 01/20. Patient advised to follow-up with a psychiatrist. Patient states that he has been on lithium for 30+ years. Seems that he has been on this for so long that is not caused him any problems in the past. (2) Acute kidney failure: QUALIFIERS: Acute renal failure type: unspecified Qualified Code(s): N17.9 - Acute kidney failure, unspecified PLAN: Resolved with IVF Renal US unremarkable Holding HCTZ and lisinopril. Unclear if related with lithium toxicity. (3) Encephalopathy: PLAN: MRI shows chronic WM changes, likely due microvascular ischemia Likely multifactorial: metabolic from dehydration, toxic from decreased excretion of gabapentin in CARLOS and underlying psychiatric disorder Concerned that this may have been due to lithium toxicity. Appears to be resolved. Patient has gabapentin on his JUN but patient states that he has not taken that in 2 weeks. (4) Hypokalemia: PLAN: Replace Mag 2.2 (5) Debility: PLAN: Minimal ability on 01/18. Unsafe for home unless has 24h assistance Plan for SNF otherwise. PLAN: Plan Chronic conditions: * Essential hypertension? Patient is currently on amlodipine as well as carvedilol his HCTZ and lisinopril held in view of impaired kidney function * Obstructive sleep apnea? Patient apparently has not been compliant with CPAP therapy * Class III obesity with BMI of 46.5? Weight loss advised * Bipolar disorder? Patient on lithium resumed DVT prophylaxis? SC heparin Disposition: To SNF 01/21/23 1017 <Electronically signed by Jj To DO> Cosigner Signature (if applicable): CC: ~ Signed [facility] Work Phone: Progress note* Clinical Note Date No Information [facility] Work Phone: Progress note No data available for this section [facility] Reason for referral (narrative)No reason for [facility] Reason for referral (narrative)* Reason For Referral No Information [facility] Work Phone: Reason for visit Narrative* Initial Evaluation . Dx: M47.816. * Referred by: Miri Fox [facility] Work Phone: Reason for visit Narrative* Auth/Cert (Routine) Specialty Diagnoses / Procedures Referred By Refugio t Referred To Contact Diagnoses Unilateral primary osteoarthritis, right hip M16.11 Procedures SD ARTHROPLASTY ACETABULAR AND PROXIMAL FEMORAL PROSTHETIC REPLACEMENT SD ARTHROPLASTY ACETABULAR AND PROXIMAL FEMORAL PROSTHETIC REPLACEMENT Right total hip arthroplasty, DL Maria Luisa Varma MD [address] [place] [address] Phone: tel: fax: [facility] [address] [place] [address] Phone: tel: Referral ID Status Reason Start Date Expiration Date Visits Re quested Visits Authorized [id number] 1 1 [facility] Summary Purpose Family History No Family History Records Found Relationship Condition Age at Onset Recorded Date/T iggy mother Malignant neoplasm of breast Unknown Myocardial infarction Unknown Hypertension Unknown father Malignant neoplasm of colon Unknown Family Member Type Diagnosis Age At Onset Mother Problem (finding) Hypertension Mother Problem (finding) Cancer Father Problem (finding) Cancer Maternal Grandmother Problem (finding) Cancer Father Problem (finding) Family history of Heart disease Advance Directives No Advanced Directives Records FoundDocuments on File Type Date Recorded 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 Advance Directives and Living Will Advance Directive Response Recorded Date/ Time Advance Directives No February 11, 2022 1:42pm Living Will No February 11 1:42pm Power of Component Design Engineer No February 11, 2022 1:42pm Advance Directive Response Recorded Date/ Time Advance Directives No February 11, 2022 1:42pm Living Will No May 27 8:33am Power of Component Design Engineer No May 27, 2022 8:33am Advance Directive Response Recorded Date/ Time Advance Directives No February 11, 2022 2:42pm Living Will No May 27 9:33am Power of Component Design Engineer No May 27, 2022 9:33am Advance Directive Response Recorded Date/ Time Advance Directives No February 11, 2022 2:42pm Living Will No January 12, 2023 7:33pm Power of Component Design Engineer No December 7:33pm Advance Directive Response Recorded Date/ Time Advance Directives No February 11, 2022 2:42pm Living Will No January 12, 2023 11:30pm Power of Component Design Engineer No December 11:30pm Advance Directive Response Recorded Date/ Time Advance Directives No February 11, 2022 2:42pm Living Will No February 25 12:44pm Power of Component Design Engineer No February 25, 2023 12:44pm Advance Directive Response Recorded Date/ Time Advance Directives No February 11, 2022 2:42pm Living Will No February 25 4:25pm Power of Component Design Engineer No February 25, 2023 4:25pm Advance Directive Response Recorded Date/ Time Advance Directives No February 11, 2022 1:42pm Living Will No March 06, 2 023 1:35am Power of Component Design Engineer No March 06, 2023 1:35am Advance Directive Response Recorded Date/ Time Advance Directives No May 10:09am Living Will No June 12, 2 024 10:09am Power of Component Design Engineer No June 12, 2023 10:09am Latest Code Status on File Code Status Date Activated Date Inactivated Comments Full Code 01/21/2023 1:25 PM 01/30/2023 5:00 PM Question Answer Comments Full Code Order Discussed With: Patient Advance Directive Response Recorded Date/ Time Advance Directives No February 11, 2022 2:42pm Living Will No March 06, 2 023 2:35am Power of Component Design Engineer No March 06, 2023 2:35am Date Activated Date Inactivated Comments 01/21/2023 1:25 PM 01/30/2023 5:00 PM Question Answer Comments Full Code Order Discussed With: Patient Advance Directive Response Recorded Date/ Time Advance Directives No February 11, 2022 2:42pm Living Will No August 20, 2023 1:15pm Power of Component Design Engineer No August 19 1:15pm Advance Directive Response Recorded Date/ Time Living Will No June 12 11:09am Do you have a Healthcare Power of Component Design Engineer? No June 12, 2023 11:09am Advance Directives No July 01 2:37pm Date Activated Date Inactivated Comments 01/16/2025 4:23 PM This is order is used when code status has not been discussed with the patient, or code status is otherwise unknown/unconfirmed To update the patient's code status, place a code status order. Do not modify or discontinue any currently active code status orders. Provide all therapy to prevent/treat cardiac or respiratory arrest. Directive Yes / No Effective Date File Name No Information Date Activated Date Inactivated Comments 01/16/2025 4:23 PM 01/19/2025 9:37 PM This is orde r is used when code status has not been discussed with the patient, or code status is otherwise unknown/unconfirmed To update the patient's code status, place a code status order. Do not modify or discontinue any currently active code status orders. Provide all therapy to prevent/treat cardiac or respiratory arrest. Date Activated Date Inactivated Comments 01/16/2025 4:23 PM 01/19/2025 9:37 PM This is orde r is used when code status has not been discussed with the patient, or code status is otherwise unknown/unconfirmed To update the patient's code status, place a code status order. Do not modify or discontinue any currently active code status orders. Provide all therapy to prevent/treat cardiac or respiratory arrest. Advance Directive Response Recorded Date/ Time Advance Directives No July 01 2:37pm History of Present Illness * Austin Natarajan MD - 04/24/2020 5:15 PM EST Dictation on: 04/24/2020 5:16 PM by: AUSTIN NATARAJAN [[id number]] documented in this encounter* Austin Natarajan MD - 05/23/2020 4:20 PM EST Dictation on: 05/23/2020 4:21 PM by: AUSTIN NATARAJAN [[id number]] documented in this encounter Assessments Diagnosis Closed [...] 1500, Until Thu02/26/22 at 0259, Administer for pneumo tonometry, tonopen tonometry, or [...] Given 02/25/2022 3:00 PM EDT 1 Drop Chief Complaint and Reason for Visit Chief Complaint 6 M FU Bilat shoulders Room 1 xray Bilat shoulders LEFT SHOULDER PAIN Reason for Visit Dizziness Essential (primary) hypertension Hyperlipidemia Palpitations Left shoulder pain Primary osteoarthritis, left shoulder Primary osteoarthritis, right shoulder Chief Complaint Bilat shoulders Room 1 xray Bilat shoulders LEFT SHOULDER PAIN LEFT SHOULDER 6 M FU/ DO EKG Reason for Visit Primary osteoarthrit is, left shoulder Primary osteoarthritis, right shoulder Primary osteoarthritis, left shoulder Preop cardiovascular exam Essential (primary) hypertension Hyperlipidemia Chief Complaint LEFT SHOULDER PAIN LEFT SHOULDER LT TOTAL SHOULDER 6 M FU/ DO EKG left shoulder Reason for Visit Primary osteoarthrit is, left shoulder Preop cardiovascular exam Essential (primary) hypertension Hyperlipidemia Primary osteoarthritis, left shoulder Chief Complaint left shoulder Reason for Visit Primary osteoarthrit is, left shoulder Chief Complaint left shoulder MALAISE Reason for Visit Primary osteoarthrit is, left shoulder Chief Complaint MALAISE BI LAT KNEES confusion ACUTE KIDNEY FAILURE, MENTAL STATUS CHANGE Reason for Visit Bilateral primary os teoarthritis of knee Obesity, morbid, BMI 50 or higher Acute confusion Acute kidney failure Acute uremia Obesity, morbid, BMI 50 or higher Essential (primary) hypertension Chief Complaint MALAISE BI LAT KNEES confusion ACUTE KIDNEY FAILURE, MENTAL STATUS CHANGE ACUTE KIDNEY FAILURE, MENTAL STATUS CHANGE ACUTE KIDNEY FAILURE, MENTAL STATUS CHANGE ACUTE KIDNEY FAILURE, MENTAL STATUS CHANGE ACUTE KIDNEY FAILURE, MENTAL STATUS CHANGE ACUTE KIDNEY FAILURE, MENTAL STATUS CHANGE ACUTE KIDNEY FAILURE, MENTAL STATUS CHANGE ACUTE KIDNEY FAILURE, MENTAL STATUS CHANGE ACUTE KIDNEY FAILURE, MENTAL STATUS CHANGE ACUTE KIDNEY FAILURE, MENTAL STATUS CHANGE Reason for Visit Bilateral primary os teoarthritis of knee Obesity, morbid, BMI 50 or higher Acute confusion Acute kidney failure Acute uremia Debility Encephalopathy Hypokalemia [place] toxicity Obesity, morbid, BMI 50 or higher Essential (primary) hypertension Chief Complaint BI LAT KNEES confusion ACUTE KIDNEY FAILURE, MENTAL STATUS CHANGE ACUTE KIDNEY FAILURE, MENTAL STATUS CHANGE ACUTE KIDNEY FAILURE, MENTAL STATUS CHANGE ACUTE KIDNEY FAILURE, MENTAL STATUS CHANGE ACUTE KIDNEY FAILURE, MENTAL STATUS CHANGE ACUTE KIDNEY FAILURE, MENTAL STATUS CHANGE ACUTE KIDNEY FAILURE, MENTAL STATUS CHANGE ACUTE KIDNEY FAILURE, MENTAL STATUS CHANGE ACUTE KIDNEY FAILURE, MENTAL STATUS CHANGE ACUTE KIDNEY FAILURE, MENTAL STATUS CHANGE CARLOS CARLOS Reason for Visit Bilateral primary os teoarthritis of knee Debility Acute confusion Acute kidney failure Encephalopathy Hypokalemia [place] toxicity Abnormal lithium level in blood Acute kidney injury Dehydration Fall History of bipolar disorder Chief Complaint BI LAT KNEES confusion ACUTE KIDNEY FAILURE, MENTAL STATUS CHANGE ACUTE KIDNEY FAILURE, MENTAL STATUS CHANGE ACUTE KIDNEY FAILURE, MENTAL STATUS CHANGE ACUTE KIDNEY FAILURE, MENTAL STATUS CHANGE ACUTE KIDNEY FAILURE, MENTAL STATUS CHANGE ACUTE KIDNEY FAILURE, MENTAL STATUS CHANGE ACUTE KIDNEY FAILURE, MENTAL STATUS CHANGE ACUTE KIDNEY FAILURE, MENTAL STATUS CHANGE ACUTE KIDNEY FAILURE, MENTAL STATUS CHANGE ACUTE KIDNEY FAILURE, MENTAL STATUS CHANGE CARLOS CARLOS CARLOS CARLOS CARLOS Reason for Visit Bilateral primary os teoarthritis of knee Debility Acute confusion Acute kidney failure Encephalopathy Hypokalemia [place] toxicity Abnormal lithium level in blood Acute kidney injury Dehydration Fall History of bipolar disorder Chief Complaint BI LAT KNEES confusion ACUTE KIDNEY FAILURE, MENTAL STATUS CHANGE ACUTE KIDNEY FAILURE, MENTAL STATUS CHANGE ACUTE KIDNEY FAILURE, MENTAL STATUS CHANGE ACUTE KIDNEY FAILURE, MENTAL STATUS CHANGE ACUTE KIDNEY FAILURE, MENTAL STATUS CHANGE ACUTE KIDNEY FAILURE, MENTAL STATUS CHANGE ACUTE KIDNEY FAILURE, MENTAL STATUS CHANGE ACUTE KIDNEY FAILURE, MENTAL STATUS CHANGE ACUTE KIDNEY FAILURE, MENTAL STATUS CHANGE ACUTE KIDNEY FAILURE, MENTAL STATUS CHANGE CARLOS CARLOS CARLOS CARLOS CARLOS ACUTE KIDNEY INJURY WITH INTRACTABLE N/V ACUTE KIDNEY INJURY WITH INTRACTABLE N/V Reason for Visit Bilateral primary os teoarthritis of knee Debility Acute confusion Acute kidney failure Encephalopathy Hypokalemia [place] toxicity Abnormal lithium level in blood Acute kidney injury Dehydration Fall History of bipolar disorder Acute kidney injury Intractable nausea and vomiting Medical non-compliance Metabolic encephalopathy Chief Complaint confusion ACUTE KIDNEY FAILURE, MENTAL STATUS CHANGE ACUTE KIDNEY FAILURE, MENTAL STATUS CHANGE ACUTE KIDNEY FAILURE, MENTAL STATUS CHANGE ACUTE KIDNEY FAILURE, MENTAL STATUS CHANGE ACUTE KIDNEY FAILURE, MENTAL STATUS CHANGE ACUTE KIDNEY FAILURE, MENTAL STATUS CHANGE ACUTE KIDNEY FAILURE, MENTAL STATUS CHANGE ACUTE KIDNEY FAILURE, MENTAL STATUS CHANGE ACUTE KIDNEY FAILURE, MENTAL STATUS CHANGE ACUTE KIDNEY FAILURE, MENTAL STATUS CHANGE CARLOS CARLOS CARLOS CARLOS ARRYTHMIA CARLOS ACUTE KIDNEY INJURY WITH INTRACTABLE N/V ACUTE KIDNEY INJURY WITH INTRACTABLE N/V Reason for Visit Debility Acute confusion Acute kidney failure Encephalopathy Hypokalemia [place] toxicity Dehydration Fall Acute kidney injury Acute kidney injury Intractable nausea and vomiting Medical non-compliance Metabolic encephalopathy Chief Complaint CARLOS CARLOS CARLOS CARLOS ARRYTHMIA CARLOS ACUTE KIDNEY INJURY WITH INTRACTABLE N/V ACUTE KIDNEY INJURY WITH INTRACTABLE N/V CERVICAL SPINE RM 3 NECK PAIN Reason for Visit Dehydration Fall Acute kidney injury Acute kidney injury Intractable nausea and vomiting Medical non-compliance Metabolic encephalopathy Other cervical disc degeneration, mid-cervical region, unspecified level Chief Complaint CERVICAL SPINE RM 3 NECK PAIN BILATERAL SHOULDERS CERVICAL SPINE BI LAT KNEES BI LAT KNEES RIGHT SHOULDER OSTEO/CERVICAL RAD CERVICAL SPINE Reason for Visit Other cervical disc degeneration, mid-cervical region, unspecified level Primary osteoarthritis, left shoulder Primary osteoarthritis, right shoulder Cervical myelopathy Bilateral primary osteoarthritis of knee Bilateral primary osteoarthritis of knee Cervical myelopathy Chief Complaint CERVICAL SPINE RM 3 NECK PAIN BILATERAL SHOULDERS CERVICAL SPINE BI LAT KNEES BI LAT KNEES RIGHT SHOULDER OSTEO/CERVICAL RAD CERVICAL SPINE OVERDUE FOR FU / LAST SEEN 05/19 BI LAT KNEES RIGHT SHOULDER DIZZINESS Amb Documentation Reason for Visit Other cervical disc degeneration, mid-cervical region, unspecified level Primary osteoarthritis, left shoulder Primary osteoarthritis, right shoulder Cervical myelopathy Bilateral primary osteoarthritis of knee Bilateral primary osteoarthritis of knee Cervical myelopathy Dizziness Hyperlipidemia Bilateral primary osteoarthritis of knee Primary osteoarthritis, left shoulder Primary osteoarthritis, right shoulder Chief Complaint NECK PAIN BILATERAL SHOULDERS CERVICAL SPINE BI LAT KNEES BI LAT KNEES RIGHT SHOULDER OSTEO/CERVICAL RAD CERVICAL SPINE OVERDUE FOR FU / LAST SEEN 05/19 BI LAT KNEES RIGHT SHOULDER DIZZINESS Amb Documentation Reason for Visit Primary osteoarthrit is, left shoulder Primary osteoarthritis, right shoulder Cervical myelopathy Bilateral primary osteoarthritis of knee Bilateral primary osteoarthritis of knee Cervical myelopathy Dizziness Hyperlipidemia Bilateral primary osteoarthritis of knee Primary osteoarthritis, left shoulder Primary osteoarthritis, right shoulder Chief Complaint Admit Date BILATERAL KNEES June 02, 2024 9 :25am Consult June 13, 2024 9:06am BUE; Paresthesia of skin July 06 11:55am BUE; Paresthesia of skin July 06 2:00pm Reason for Visit Admit Date Bilateral primary osteoarthritis of knee June 02, 2024 9:25am Abnormal gait June 13, 2024 9:06am Calcification of basal ganglia June 13, 2024 9:06am Cervical myelopathy June 13, 2024 9:06am Cervicalgia June 13, 2024 9:06am Intracranial calcification May 9:06am Mild cognitive impairment June 13, 2024 9:06am Paresthesias June 13, 2024 9:06am Tension headache June 13, 2024 9:06am Chief Complaint Admit Date BILATERAL KNEES June 02, 2024 9 :25am Consult June 13, 2024 9:06am BUE; Paresthesia of skin July 06 11:55am BUE; Paresthesia of skin July 06 2:00pm BL KNEES July 19, 2024 12: 59pm BL KNEES July 28, 2024 10:2 9am BL KNEES August 04, 2024 11: 19am Reason for Visit Admit Date Bilateral primary osteoarthritis of knee June 02, 2024 9:25am Abnormal gait June 13, 2024 9:06am Calcification of basal ganglia June 13, 2024 9:06am Cervical myelopathy June 13, 2024 9:06am Cervicalgia June 13, 2024 9:06am Intracranial calcification May 9:06am Mild cognitive impairment June 13, 2024 9:06am Paresthesias June 13, 2024 9:06am Tension headache June 13, 2024 9:06am Bilateral primary osteoarthritis of knee July 19, 2024 12:59pm Bilateral primary osteoarthritis of knee July 28, 2024 10:29am Bilateral primary osteoarthritis of knee August 04, 2024 11:19am Chief Complaint Admit Date BILATERAL KNEES June 02, 2024 9 :25am Consult June 13, 2024 9:06am BUE; Paresthesia of skin July 06 11:55am BUE; Paresthesia of skin July 06 2:00pm BL KNEES July 19, 2024 12: 59pm BL KNEES July 28, 2024 10:2 9am BL KNEES August 04, 2024 11: 19am 1 Y FU September 23, 2024 11:01 am Chief Complaint Admit Date BUE; Paresthesia of skin July 06 11:55am BUE; Paresthesia of skin July 06 2:00pm BL KNEES July 19, 2024 12: 59pm BL KNEES July 28, 2024 10:2 9am BL KNEES August 04, 2024 11: 19am 1 Y FU September 23, 2024 11:01 am Other specified soft tissue disorders [facility] 2024 7:46am Reason for Visit Admit Date Bilateral primary osteoarthritis of knee July 19, 2024 12:59pm Bilateral primary osteoarthritis of knee July 28, 2024 10:29am Bilateral primary osteoarthritis of knee August 04, 2024 11:19am Lower extremity edema September 23, 2024 11: 01am Dizziness September 23, 2024 11:01 am Hyperlipidemia September 23, 2024 11:01 am Hypertension September 23, 2024 11:01 am Chief Complaint Admit Date BL KNEES July 19, 2024 12: 59pm BL KNEES July 28, 2024 10:2 9am BL KNEES August 04, 2024 11: 19am 1 Y FU September 23, 2024 11:01 am Other specified soft tissue disorders [facility] 2024 7:46am TENSION HEADACHE/MILD CONGNITIVE IMPAIRM ENT November 08, 2024 10:55am DYSPNEA November 10, 2024 12:5 8pm Chief Complaint Admit Date BL KNEES August 04, 2024 11: 19am 1 Y FU September 23, 2024 11:01 am Other specified soft tissue disorders [facility] 2024 7:46am TENSION HEADACHE/MILD CONGNITIVE IMPAIRM ENT November 08, 2024 10:55am DYSPNEA November 10, 2024 12:5 8pm INT LAB ORDERS November 25, 2024 12: 36pm Reason for Visit Admit Date Bilateral primary osteoarthritis of knee August 04, 2024 11:19am Lower extremity edema September 23, 2024 11: 01am Dizziness September 23, 2024 11:01 am Hyperlipidemia September 23, 2024 11:01 am Hypertension September 23, 2024 11:01 am Chief Complaint Admit Date 1 Y FU September 23, 2024 11:01 am Other specified soft tissue disorders [facility] 2024 7:46am TENSION HEADACHE/MILD CONGNITIVE IMPAIRM ENT November 08, 2024 10:55am DYSPNEA November 10, 2024 12:5 8pm INT LAB ORDERS November 25, 2024 12: 36pm TEST RESULTS / FU January 02, 2025 2:51pm Reason for Visit Admit Date Lower extremity edema September 23, 2024 11: 01am Dizziness September 23, 2024 11:01 am Hyperlipidemia September 23, 2024 11:01 am Hypertension September 23, 2024 11:01 am Chief Complaint Admit Date Other specified soft tissue disorders Ju 2024 7:46am TENSION HEADACHE/MILD CONGNITIVE IMPAIRM ENT November 08, 2024 10:55am DYSPNEA November 10, 2024 12:5 8pm INT LAB ORDERS November 25, 2024 12: 36pm TEST RESULTS / FU January 02, 2025 2:51pm EORDERS January 02, 2025 3:55pm EORDERS January 02, 2025 4:02pm Reason for Visit Admit Date Abnormal gait January 02, 2025 2:51pm Bilateral carpal tunnel syndrome Septemb 2024 2:51pm Calcification of basal ganglia January 02, 2025 2:51pm Cerebrovascular disease January 02, 2 025 2:51pm Cervical myelopathy January 02, 2025 2:51pm Cervicalgia January 02, 2025 2:51pm Mild cognitive impairment January 02, 2025 2:51pm Tension headache January 02, 2025 2:51pm Reason for Referral Specialty Diagnoses / Procedures Referred By Refugio rahman Referred To Contact Radiology Diagnoses Left shoulder pain Procedures XR shoulder left 2+ views Adri Reese [id number], [address] [place] [address] Referral ID Status Reason Start Date Expiration Date Visits Requested Visits Authorized [id number] Authorized Perform Procedure 12/29/2023 12/28/2024 1 1 Additional Source Comments (unrecognized sect ion and [...] ized section and content) DATE CREATED AUTHOR 10/23/2017 [facility] DATE CREATED AUTHOR AUTHOR'S ORGANIZ ATION 12/17/2017 [facility] DATE CREATED AUTHOR AUTHOR'S ORGANIZ ATION 02/09/2018 [facility] DATE CREATED AUTHOR AUTHOR'S ORGANIZ ATION 04/14/2020 [facility] DATE CREATED AUTHOR AUTHOR'S ORGANIZ ATION 08/20/2020 [facility] DATE CREATED AUTHOR AUTHOR'S ORGANIZ ATION 09/28/2020 [facility] DATE CREATED AUTHOR AUTHOR'S ORGANIZ ATION 2021 [facility] DATE CREATED AUTHOR AUTHOR'S ORGANIZ ATION 11/20/2021 [facility] DATE CREATED AUTHOR AUTHOR'S ORGANIZ ATION 04/05/2022 [facility] DATE CREATED AUTHOR AUTHOR'S ORGANIZ ATION 03/15/2023 [facility] DATE CREATED AUTHOR AUTHOR'S ORGANIZ ATION 04/05/2023 [facility] DATE CREATED AUTHOR AUTHOR'S ORGANIZ ATION 12/28/2024 [facility] DATE CREATED AUTHOR AUTHOR'S ORGANIZ ATION 01/20/2025 [facility] DATE CREATED AUTHOR AUTHOR'S ORGANIZ ATION 01/20/2025 [facility] DATE CREATED AUTHOR AUTHOR'S ORGANIZ ATION 01/27/2025 [facility] DATE CREATED AUTHOR AUTHOR'S ORGANIZ ATION 01/30/2025 [facility] DATE CREATED AUTHOR AUTHOR'S ORGANIZ ATION 01/30/2025 [facility] DATE CREATED AUTHOR AUTHOR'S ORGANIZ ATION 03/01/2025 [facility] DATE CREATED AUTHOR AUTHOR'S ORGANIZ ATION 03/05/2025 [facility] DATE CREATED AUTHOR AUTHOR'S ORGANIZ ATION 03/05/2025 [facility] Reason for Visit (unrecogniz ed section and content) Reason Comments Follow-up Wound Check Suture / Staple Removal Reason Comments Cast Removal Follow-up Reason Comments Follow-up Reason Comments VF defect Pseudophakia OU Headaches Diplopia Intermittent vertica l double vision Reason Comments New Patient Specialty Diagnoses / Procedures Referred By Refugio t Referred To Contact Radiology Diagnoses Left shoulder pain Procedures XR shoulder left 2+ views Adri Reese [id number], [address] [place] [address] Referral ID Status Reason Start Date Expiration Date Visits Requested Visits Authorized [id number] Authorized Perform Procedure 12/29/2023 12/28/2024 1 1 Reason Comments Consult Right hip preop radi ation Source Comments (unrecognize d section and content) In the event this informatio n is protected by the Federal Confidentiality of Alcohol and Drug Abuse Patient Records regulations: The Federal rules restrict any use of the information to criminally investigate or prosecute any alcohol or drug abuse patient.[facility] the event this information is protected by the Federal Confidentiality of Alcohol and Drug Abuse Patient Records regulations: The Federal rules restrict any use of the information to criminally investigate or prosecute any alcohol or drug abuse patient.[facility] the event this information is protected by the Federal Confidentiality of Alcohol and Drug Abuse Patient Records regulations: The Federal rules restrict any use of the information to criminally investigate or prosecute any alcohol or drug abuse patient.[facility] Care Teams (unrecognized sec tion and content) Team Status: Active Member Role Status Dates Dr. Jj Eason MD Primary Care Provider Active Team Status: Inactive Member Role Status Dates Dr. Jj Eason MD Primary Care Provider Active Start: May 02, 2024 End: May 02, 2024 Dr. Sin Murphy MD Attending Provider Active Start: May 02, 2024 End: May 02, 2024 Dr. Sin Murphy MD Referring Provider Active Start: May 02, 2024 End: May 02, 2024 Team Status: Inactive Member Role Status Dates Dr. Jj Eason MD Primary Care Provider Active Start: June 02, 2024 End: June 02, 2024 Dr. Jj Eason MD Referring Provider Active St art: June 02, 2024 End: June 02, 2024 Darwin Badillo MD Attending Provider Active St art: June 02, 2024 End: June 02, 2024 Team Status: Inactive Member Role Status Dates Dr. Jj Eason MD Primary Care Provider Active Start: June 13, 2024 End: June 13, 2024 Dr. Jj Eason MD Referring Provider Active St art: June 13, 2024 End: June 13, 2024 Dr. Jean-Paul Estrada MD Attending Provider Active Start: June 13, 2024 End: June 13, 2024 Team Status: Inactive Member Role Status Dates Dr. Jj Eason MD Primary Care Provider Active Start: July 06, 2024 End: July 06, 2024 Dr. Jean-Paul Estrada MD Attending Provider Active Start: July 06, 2024 End: July 06, 2024 Dr. Jean-Paul Estrada MD Referring Provider Active Start: July 06, 2024 End: July 06, 2024 Team Status: Active Member Role Status Dates Dr. Jj Eason MD Primary Care Provider Active Start: July 06, 2024 Dr. Jean-Paul Estrada MD Referring Provider Active Start: July 06, 2024 Dr. Jean-Paul Estrada MD Other Provider Active S tart: July 06, 2024 Dr. Gladis Bucio MD Attending Provider Active S tart: July 06, 2024 Team Status: Inactive Member Role Status Dates Dr. Jj Eason MD Primary Care Provider Active Start: July 19, 2024 End: July 19, 2024 Dr. Jj Eason MD Referring Provider Active St art: July 19, 2024 End: July 19, 2024 Darwin Badillo MD Attending Provider Active St art: July 19, 2024 End: July 19, 2024 Team Status: Inactive Member Role Status Dates Dr. Jj Eason MD Primary Care Provider Active Start: July 28, 2024 End: July 28, 2024 Dr. Jj Eason MD Referring Provider Active St art: July 28, 2024 End: July 28, 2024 Darwin Badillo MD Attending Provider Active St art: July 28, 2024 End: July 28, 2024 Team Status: Inactive Member Role Status Dates Dr. Jj Eason MD Primary Care Provider Active Start: August 01, 2024 End: August 01, 2024 Dr. Jj Eason MD Attending Provider Active St art: August 01, 2024 End: August 01, 2024 Dr. Jj Eason MD Referring Provider Active St art: August 01, 2024 End: August 01, 2024 Team Status: Inactive Member Role Status Dates Dr. Jj Eason MD Primary Care Provider Active Start: August 04, 2024 End: August 04, 2024 Dr. Jj Eason MD Referring Provider Active St art: August 04, 2024 End: August 04, 2024 Darwin Badillo MD Attending Provider Active St art: August 04, 2024 End: August 04, 2024 Team Status: Inactive Member Role Status Dates Dr. Jj Eason MD Primary Care Provider Active Start: August 15, 2024 End: August 15, 2024 Dr. Sin Murphy MD Attending Provider Active Start: August 15, 2024 End: August 15, 2024 Dr. Sin Murphy MD Referring Provider Active Start: August 15, 2024 End: August 15, 2024 Bevel Operator Relationship Specialty Start Date End Date Jj Eason MD PCP - General Family Medicine 04/14/16 Team Status: Active Member Role Status Dates Dr. Jj Eason MD Family Provider Active Dr. Jj Eason MD Primary Care Provider Active Team Status: Inactive Member Role Status Dates Dr. Jj Eason MD Primary Care Provider, Referring P maryjo Active Dr. Hermilo Mendez MD Attending Provider Active Team Status: Inactive Member Role Status Dates Dr. Jj Eason MD Primary Care Provider, Referring P rovider Active Dr. Wiliam Bedolla DO Attending Provider Active Team Status: Inactive Member Role Status Dates Dr. Jj Eason MD Primary Care Provider Active Dr. Hermilo Mendez MD Attending Provider Active Team Status: Inactive Member Role Status Dates Dr. Jj Eason MD Primary Care Provider, Referring P rovider Active Darwin Badillo MD Attending Provider Active Team Status: Inactive Member Role Status Dates Dr. Jj Eason MD Primary Care Provider Active Darwin Badillo MD Attending Provider, Referring Prov ider Active Team Status: Inactive Member Role Status Dates Dr. Jj Eason MD Primary Care Provider Active Dr. Sin Murphy MD Attending Provider, Referring Provider Active Team Status: Inactive Member Role Status Dates Dr. Jj Eason MD Primary Care Provide r, Attending Provider, Referring Provider Active Team Status: Active Member Role Status Dates Dr. Jj Eason MD Primary Care Provider Active Darwin Badillo MD Attending Provider, Referring Prov ider Active Team Status: Inactive Member Role Status Dates Dr. Jj Eason MD Primary Care Provider, Attending P rovider Active Team Status: Active Member Role Status Dates Dr. Jj Eason MD Primary Care Provider Active Dr. Kun Garrett MD Emergency Provider Active Dr. Bubba Bailon MD Attending Provider Active Team Status: Active Member Role Status Dates Dr. Jj Eason MD Primary Care Provider Active Dr. Kun Garrett MD Emergency Provider Active Dr. Bubba Bailon MD Admit Provider, Attending Provid er Active Team Status: Active Member Role Status Dates Dr. Jj Eason MD Primary Care Provider Active Dr. Kun Garrett MD Emergency Provider Active Dr. Bubba Bailon MD Admit Provider, Other Provider A ctive Dr. Dara Robert MD Attending Provider, Other Provid er Active Team Status: Active Member Role Status Dates Dr. Jj Eason MD Primary Care Provider Active Dr. Kun Garrett MD Emergency Provider Active Dr. Bubba Bailon MD Admit Provider, Other Provider A ctive Dr. Jj To DO Attending Provider, Other Provid er Active Dr. Dara Robert MD Other Provider Active Team Status: Inactive Member Role Status Dates Dr. Jj Eason MD Primary Care Provider Active Dr. Kun Garrett MD Emergency Provider Active Dr. Bubba Bailon MD Admit Provider, Other Provider A ctive Dr. Jj To DO Attending Provider Active Dr. Dara Robert MD Other Provider Active Team Status: Active Member Role Status Dates Dr. Jj Eason MD Primary Care Provider Active Dr. Nate Santana MD Emergency Provider Active Dr. Aneuyd Case DO Admit Provider, Attending Provider, Other Provider Active Team Status: Active Member Role Status Dates Dr. Jj Eason MD Primary Care Provider Active Dr. Nate Santana MD Emergency Provider Active Dr. Aneudy Case DO Admit Provider, Attending Pro vider Active Team Status: Active Member Role Status Dates Dr. Jj Eason MD Primary Care Provider Active Dr. Nate Santana MD Emergency Provider Active Dr. Aneudy Case DO Admit Provider, Other Provide r Active Dr. Jacob Sung MD Attending Provider, Other Provi ramírez Active Dr. Cipriano Carlson MD Other Provider Active Team Status: Inactive Member Role Status Dates Dr. Jj Eason MD Primary Care Provider Active Dr. Nate Santana MD Emergency Provider Active Dr. Aneudy Case DO Admit Provider, Other Provide r Active Dr. Jacob Sung MD Attending Provider Active Dr. Cipriano Carlson MD Other Provider Active Team Status: Active Member Role Status Dates Dr. Jj Eason MD Primary Care Provider Active Dr. Courtney Story MD Attending Provider Activ e Team Status: Active Member Role Status Dates Dr. Jj Eason MD Primary Care Provider Active Dr. Dara Paul DO Admit Provider, Other Provid er Active Dr. Malathi Vitcor MD Attending Provider, Other Provid er Active Team Status: Inactive Member Role Status Dates Dr. jJ Eason MD Primary Care Provider Active Dr. Dara Paul DO Admit Provider, Other Provid er Active Dr. Malathi Victor MD Attending Provider Active Team Status: Active Member Role Status Dates Dr. Jj Eason MD Primary Care Provider Active Dr. Courtney Story MD Attending Provider Activ e Dr. Dara Paul DO Referring Provider Active Team Status: Active Member Role Status Dates Dr. Jj Eason MD Primary Care Provider Active Dr. Courtney Story MD Attending Provider Activ e Dr. Jacob Sung MD Referring Provider Active Team Status: Inactive Member Role Status Dates Dr. Jj Eason MD Primary Care Provider, Referring P rovider Active Dr. Junito Butts MD Attending Provider Active Team Status: Inactive Member Role Status Dates Dr. Jj Eason MD Primary Care Provider Active Dr. Junito Butts MD Attending Provider, Referring Pr ovider Active Bevel Operator Relationship Specialty Start Date End Date Jj Eason MD PCP - [facility] Family Medicine 04/14/16 Bevel Operator Relationship Specialty Start Date End Date Jj Eason MD PCP - [facility] Family Medicine 04/14/16 Team Status: Inactive Member Role Status Dates Dr. Jj Eason MD Primary Care Provider, Referring P rovider Active Janet Villavicencio CPR AMBULANCE DRIVER, CPR AMBULANCE DRIVER-C Attending Provider Active Team Status: Active Member Role Status Dates Dr. Jj Eason MD Primary Care Provider Active Dr. Jj Mejia MD Attending Provider Active Team Status: Active Member Role Status Dates Dr. Jj Eason MD Primary Care Provider Active Janet Villavicencio CPR AMBULANCE DRIVER, CPR AMBULANCE DRIVER-C Attending Provider Active Team Status: Inactive Member Role Status Dates Dr. Jj Eason MD Primary Care Provider Active Jnaet Villavicencio CPR AMBULANCE DRIVER, CPR AMBULANCE DRIVER-C Attending Provider, Referring P rovider Active Team Status: Active Member Role Status Dates Dr. Jj Eason MD Primary Care Provider, Attending P rovider Active Team Status: Active Member Role Status Dates Dr. Jj Eason MD Primary Care Provider Active Dr. Jj Mejia MD Attending Provider Active Janet Villavicencio CPR AMBULANCE DRIVER, CPR AMBULANCE DRIVER-C Referring Provider Active Bevel Operator Relationship Specialty Start Date End Date Jj Eason MD [address] [place] [address] [address] [place] [address] PCP General 03/30/20 Team Status: Active Member Role Status Dates Dr. Jj Eason MD Primary Care Provider Active Start: April 15, 2024 Dr. Jj Eason MD Attending Provider Active St art: April 15, 2024 Dr. Jj Eason MD Referring Provider Active St art: April 15, 2024 Team Status: Inactive Member Role Status Dates Dr. Jj Eason MD Primary Care Provider Active Start: September 23, 2024 End: September 23, 2024 Dr. Jj Eason MD Referring Provider Active St art: September 23, 2024 End: September 23, 2024 ANGEL Sage Attending Provider Active St art: September 23, 2024 End: September 23, 2024 Team Status: Active Member Role/Relationship Status Dates Dr. Jj Eason MD Primary Care Provider Active Team Status: Inactive Member Role/Relationship Status Dates Dr. Jj Eason MD Primary Care Provider Active Start: July 06, 2024 End: July 06, 2024 Dr. Jean-Paul Estrada MD Attending Provider Active Start: July 06, 2024 End: July 06, 2024 Dr. Jean-Paul Estrada MD Referring Provider Active Start: July 06, 2024 End: July 06, 2024 Team Status: Active Member Role/Relationship Status Dates Dr. Jj Eason MD Primary Care Provider Active Start: July 06, 2024 Dr. Jean-Paul Estrada MD Referring Provider Active Start: July 06, 2024 Dr. Jean-Paul Estrada MD Other Provider Active S tart: July 06, 2024 Dr. Gladis Bucio MD Attending Provider Active S tart: July 06, 2024 Team Status: Inactive Member Role/Relationship Status Dates Dr. Jj Eason MD Primary Care Provider Active Start: July 19, 2024 End: July 19, 2024 Dr. Jj Eason MD Referring Provider Active St art: July 19, 2024 End: July 19, 2024 Darwin Badillo MD Attending Provider Active St art: July 19, 2024 End: July 19, 2024 Team Status: Inactive Member Role/Relationship Status Dates Dr. Jj Eason MD Primary Care Provider Active Start: July 28, 2024 End: July 28, 2024 Dr. Jj Eason MD Referring Provider Active St art: July 28, 2024 End: July 28, 2024 Darwin Badillo MD Attending Provider Active St art: July 28, 2024 End: July 28, 2024 Team Status: Inactive Member Role/Relationship Status Dates Dr. Jj Eason MD Primary Care Provider Active Start: August 01, 2024 End: August 01, 2024 Dr. Jj Eason MD Attending Provider Active St art: August 01, 2024 End: August 01, 2024 Dr. Jj Eason MD Referring Provider Active St art: August 01, 2024 End: August 01, 2024 Team Status: Inactive Member Role/Relationship Status Dates Dr. Jj Eason MD Primary Care Provider Active Start: August 04, 2024 End: August 04, 2024 Dr. Jj Eason MD Referring Provider Active St art: August 04, 2024 End: August 04, 2024 Darwin Badillo MD Attending Provider Active St art: August 04, 2024 End: August 04, 2024 Team Status: Inactive Member Role/Relationship Status Dates Dr. Jj Eason MD Primary Care Provider Active Start: August 15, 2024 End: August 15, 2024 Dr. Sin Murphy MD Attending Provider Active Start: August 15, 2024 End: August 15, 2024 Dr. Sin Murphy MD Referring Provider Active Start: August 15, 2024 End: August 15, 2024 Team Status: Inactive Member Role/Relationship Status Dates Dr. Jj Eason MD Primary Care Provider Active Start: September 23, 2024 End: September 23, 2024 Dr. Jj Eason MD Referring Provider Active St art: September 23, 2024 End: September 23, 2024 ANGEL Sage Attending Provider Active St art: September 23, 2024 End: September 23, 2024 Team Status: Inactive Member Role/Relationship Status Dates Dr. Jj Eason MD Primary Care Provider Active Start: October 19, 2024 End: October 19, 2024 ANGEL Sage Attending Provider Active St art: October 19, 2024 End: October 19, 2024 ANGEL Sage Referring Provider Active St art: October 19, 2024 End: October 19, 2024 Team Status: Active Member Role/Relationship Status Dates Dr. Jj Eason MD Primary Care Provider Active Start: October 19, 2024 Dr. Jj Mejia MD Attending Provider Active S tart: October 19, 2024 Team Status: Inactive Member Role/Relationship Status Dates Dr. Jj Eason MD Primary Care Provider Active Start: July 19, 2024 End: July 19, 2024 Dr. Jj Eason MD Referring Provider Active St art: July 19, 2024 End: July 19, 2024 Darwin Badillo MD Attending Provider Active St art: July 19, 2024 End: July 19, 2024 Team Status: Inactive Member Role/Relationship Status Dates Dr. Jj Eason MD Primary Care Provider Active Start: July 28, 2024 End: July 28, 2024 Dr. Jj Eason MD Referring Provider Active St art: July 28, 2024 End: July 28, 2024 Darwin Badillo MD Attending Provider Active St art: July 28, 2024 End: July 28, 2024 Team Status: Inactive Member Role/Relationship Status Dates Dr. Jj Eason MD Primary Care Provider Active Start: August 01, 2024 End: August 01, 2024 Dr. Jj Eason MD Attending Provider Active St art: August 01, 2024 End: August 01, 2024 Dr. Jj Eason MD Referring Provider Active St art: August 01, 2024 End: August 01, 2024 Team Status: Inactive Member Role/Relationship Status Dates Dr. Jj Eason MD Primary Care Provider Active Start: August 04, 2024 End: August 04, 2024 Dr. Jj Eason MD Referring Provider Active St art: August 04, 2024 End: August 04, 2024 Darwin Badillo MD Attending Provider Active St art: August 04, 2024 End: August 04, 2024 Team Status: Inactive Member Role/Relationship Status Dates Dr. Jj Eason MD Primary Care Provider Active Start: August 15, 2024 End: August 15, 2024 Dr. Sin Murphy MD Attending Provider Active Start: August 15, 2024 End: August 15, 2024 Dr. Sin Murphy MD Referring Provider Active Start: August 15, 2024 End: August 15, 2024 Team Status: Inactive Member Role/Relationship Status Dates Dr. Jj Eason MD Primary Care Provider Active Start: September 23, 2024 End: September 23, 2024 Dr. Jj Eason MD Referring Provider Active St art: September 23, 2024 End: September 23, 2024 ANGEL Sage Attending Provider Active St art: September 23, 2024 End: September 23, 2024 Team Status: Inactive Member Role/Relationship Status Dates Dr. Jj Eason MD Primary Care Provider Active Start: October 19, 2024 End: October 19, 2024 ANGEL Sage Attending Provider Active St art: October 19, 2024 End: October 19, 2024 ANGEL Sage Referring Provider Active St art: October 19, 2024 End: October 19, 2024 Team Status: Active Member Role/Relationship Status Dates Dr. Jj Eason MD Primary Care Provider Active Start: October 19, 2024 Dr. Jj Mejia MD Attending Provider Active S tart: October 19, 2024 Thomasmira Sanchez , PA Referring Provider Active St art: October 19, 2024 Team Status: Inactive Member Role/Relationship Status Dates Dr. Jj Eason MD Primary Care Provider Active Start: November 08, 2024 End: November 08, 2024 Dr. Jean-Paul Estrada MD Attending Provider Active Start: November 08, 2024 End: November 08, 2024 Dr. Jean-Paul Estrada MD Referring Provider Active Start: November 08, 2024 End: November 08, 2024 Team Status: Active Member Role/Relationship Status Dates Dr. Jj Eason MD Primary Care Provider Active Start: November 10, 2024 Dr. Hermilo Mendez MD Attending Provider Active S tart: November 10, 2024 Team Status: Active Member Role/Relationship Status Dates Dr. Jj Eason MD Primary Care Provider Active Start: November 10, 2024 Thomas Narayaniter , PA Attending Provider Active St art: November 10, 2024 Thomas Demiter , [place] Referring Provider Active St art: November 10, 2024 Team Status: Inactive Member Role/Relationship Status Dates Dr. Jj Eason MD Primary Care Provider Active Start: November 10, 2024 End: November 10, 2024 Thomas Demiter , PA Attending Provider Active St art: November 10, 2024 End: November 10, 2024 Thomas Demiter , [place] Referring Provider Active St art: November 10, 2024 End: November 10, 2024 Team Status: Inactive Member Role/Relationship Status Dates Dr. Jj Eason MD Primary Care Provider Active Start: August 04, 2024 End: August 04, 2024 Dr. Jj Eason MD Referring Provider Active St art: August 04, 2024 End: August 04, 2024 Darwin Badillo MD Attending Provider Active St art: August 04, 2024 End: August 04, 2024 Team Status: Inactive Member Role/Relationship Status Dates Dr. Jj Eason MD Primary Care Provider Active Start: August 15, 2024 End: August 15, 2024 Dr. Sin Murphy MD Attending Provider Active Start: August 15, 2024 End: August 15, 2024 Dr. Sin Murphy MD Referring Provider Active Start: August 15, 2024 End: August 15, 2024 Team Status: Inactive Member Role/Relationship Status Dates Dr. Jj Eason MD Primary Care Provider Active Start: September 23, 2024 End: September 23, 2024 Dr. Jj Eason MD Referring Provider Active St art: September 23, 2024 End: September 23, 2024 Thomas Sanchez PA Attending Provider Active St art: September 23, 2024 End: September 23, 2024 Team Status: Inactive Member Role/Relationship Status Dates Dr. Jj Eason MD Primary Care Provider Active Start: October 19, 2024 End: October 19, 2024 Thomas Sanchez PA Attending Provider Active St art: October 19, 2024 End: October 19, 2024 Thomasmira Sanchez PA Referring Provider Active St art: October 19, 2024 End: October 19, 2024 Team Status: Active Member Role/Relationship Status Dates Dr. Jj Eason MD Primary Care Provider Active Start: October 19, 2024 Dr. Jj Mejia MD Attending Provider Active S tart: October 19, 2024 Thomas Sanchez PA Referring Provider Active St art: October 19, 2024 Team Status: Inactive Member Role/Relationship Status Dates Dr. Jj Eason MD Primary Care Provider Active Start: November 08, 2024 End: November 08, 2024 Dr. Jean-Paul Estrada MD Attending Provider Active Start: November 08, 2024 End: November 08, 2024 Dr. Jean-Paul Estrada MD Referring Provider Active Start: November 08, 2024 End: November 08, 2024 Team Status: Active Member Role/Relationship Status Dates Dr. Jj Eason MD Primary Care Provider Active Start: November 10, 2024 Dr. Hermilo Mendez MD Attending Provider Active S tart: November 10, 2024 Team Status: Inactive Member Role/Relationship Status Dates Dr. Jj Eason MD Primary Care Provider Active Start: November 10, 2024 End: November 10, 2024 Thomas Sanchez PA Attending Provider Active St art: November 10, 2024 End: November 10, 2024 Thomas Sanchez PA Referring Provider Active St art: November 10, 2024 End: November 10, 2024 Team Status: Inactive Member Role/Relationship Status Dates Dr. Jj Eason MD Primary Care Provider Active Start: November 25, 2024 End: November 25, 2024 Thomas Sanchez PA Attending Provider Active St art: November 25, 2024 End: November 25, 2024 Thomas Daniel , [place] Referring Provider Active St art: November 25, 2024 End: November 25, 2024 Team Status: Inactive Member Role/Relationship Status Dates Dr. Jj Eason MD Primary Care Provider Active Start: September 23, 2024 End: September 23, 2024 Dr. Jj Eason MD Referring Provider Active St art: September 23, 2024 End: September 23, 2024 ANGEL Sage Attending Provider Active St art: September 23, 2024 End: September 23, 2024 Team Status: Inactive Member Role/Relationship Status Dates Dr. Jj Eason MD Primary Care Provider Active Start: October 19, 2024 End: October 19, 2024 ANGEL Sage Attending Provider Active St art: October 19, 2024 End: October 19, 2024 Thomas Daniel , PA Referring Provider Active St art: October 19, 2024 End: October 19, 2024 Team Status: Active Member Role/Relationship Status Dates Dr. Jj Eason MD Primary Care Provider Active Start: October 19, 2024 Dr. Jj Mejia MD Attending Provider Active S tart: October 19, 2024 Thomas Sanchez , PA Referring Provider Active St art: October 19, 2024 Team Status: Inactive Member Role/Relationship Status Dates Dr. Jj Eason MD Primary Care Provider Active Start: November 08, 2024 End: November 08, 2024 Dr. Jean-Paul Estrada MD Attending Provider Active Start: November 08, 2024 End: November 08, 2024 Dr. Jean-Paul Estrada MD Referring Provider Active Start: November 08, 2024 End: November 08, 2024 Team Status: Active Member Role/Relationship Status Dates Dr. Jj Eason MD Primary Care Provider Active Start: November 10, 2024 Dr. Hermilo Mendez MD Attending Provider Active S tart: November 10, 2024 Team Status: Inactive Member Role/Relationship Status Dates Dr. Jj Eason MD Primary Care Provider Active Start: November 10, 2024 End: November 10, 2024 ANGEL Sage Attending Provider Active St art: November 10, 2024 End: November 10, 2024 ANGEL Sage Referring Provider Active St art: November 10, 2024 End: November 10, 2024 Team Status: Inactive Member Role/Relationship Status Dates Dr. Jj Eason MD Primary Care Provider Active Start: November 25, 2024 End: November 25, 2024 ANGEL Sage Attending Provider Active St art: November 25, 2024 End: November 25, 2024 ANGEL Sage Referring Provider Active St art: November 25, 2024 End: November 25, 2024 Team Status: Inactive Member Role/Relationship Status Dates Dr. Jj Eason MD Primary Care Provider Active Start: January 02, 2025 End: January 02, 2025 Dr. Jj Eason MD Referring Provider Active St art: January 02, 2025 End: January 02, 2025 Dr. Jean-Paul Estrada MD Attending Provider Active Start: January 02, 2025 End: January 02, 2025 Bevel Operator Relationship Specialty Start Date End Date Jj Eason MD [address] [place] [address] PCP - General Family Medicine 01/13/25 Bevel Operator Relationship Specialty Start Date End Date Jj Eason MD [address] [facility] [address] [place] [address] PCP - General Family Medicine 01/13/25 Name Effective Dates (start - stop) Status Members No Information Bevel Operator Relationship Specialty Start Date End Date Jj Eason MD [address] [facility] [address] [place], [place] [id number] PCP - General Family Medicine 01/13/25 Bevel Operator Relationship Specialty Start Date End Date Jj Eason MD [address] [facility] [address] [place], [place] [id number] PCP - General Family Medicine 01/13/25 Team Status: Active Member Role/Relationship Status Dates Dr. Jj Eason MD Primary care physician Active Team Status: Inactive Member Role/Relationship Status Dates Dr. Jj Eason MD Primary care physician Active Start: October 19, 2024 End: October 19, 2024 Thomas Daniel , PA Attending physician Active S tart: October 19, 2024 End: October 19, 2024 Thomas Demiter , PA Referring Provider Active St art: October 19, 2024 End: October 19, 2024 Team Status: Active Member Role/Relationship Status Dates Dr. Jj Eason MD Primary care physician Active Start: October 19, 2024 Dr. Jj Mejia MD Attending physician Active Start: October 19, 2024 Thomas Sanchez , PA Referring Provider Active St art: October 19, 2024 Team Status: Inactive Member Role/Relationship Status Dates Dr. Jj Eason MD Primary care physician Active Start: November 08, 2024 End: November 08, 2024 Dr. Jean-Paul Estrada MD Attending physician Active Start: November 08, 2024 End: November 08, 2024 Dr. Jean-Paul Estrada MD Referring Provider Active Start: November 08, 2024 End: November 08, 2024 Team Status: Active Member Role/Relationship Status Dates Dr. Jj Eason MD Primary care physician Active Start: November 10, 2024 Dr. Hermilo Mendez MD Attending physician Active Start: November 10, 2024 Team Status: Inactive Member Role/Relationship Status Dates Dr. Jj Eason MD Primary care physician Active Start: November 10, 2024 End: November 10, 2024 Thomasmira Sanchez , PA Attending physician Active S tart: November 10, 2024 End: November 10, 2024 Thomas Demiter , PA Referring Provider Active St art: November 10, 2024 End: November 10, 2024 Team Status: Inactive Member Role/Relationship Status Dates Dr. Jj Eason MD Primary care physician Active Start: November 25, 2024 End: November 25, 2024 Thomas Daniel , PA Attending physician Active S tart: November 25, 2024 End: November 25, 2024 Thomas Daniel , PA Referring Provider Active St art: November 25, 2024 End: November 25, 2024 Team Status: Inactive Member Role/Relationship Status Dates Dr. Jj Eason MD Primary care physician Active Start: January 02, 2025 End: January 02, 2025 Dr. Jj Eason MD Referring Provider Active St art: January 02, 2025 End: January 02, 2025 Dr. Jean-Paul Estrada MD Attending physician Active Start: January 02, 2025 End: January 02, 2025 Team Status: Inactive Member Role/Relationship Status Dates Dr. Jj Eason MD Primary care physician Active Start: January 02, 2025 End: January 02, 2025 Dr. Jean-Paul Estrada MD Attending physician Active Start: January 02, 2025 End: January 02, 2025 Dr. Jean-Paul Estrada MD Referring Provider Active Start: January 02, 2025 End: January 02, 2025 Team Status: Inactive Member Role/Relationship Status Dates Dr. Jj Eason MD Primary care physician Active Start: January 02, 2025 End: January 02, 2025 Dr. Jean-Paul Estrada MD Attending physician Active Start: January 02, 2025 End: January 02, 2025 Dr. Jean-Paul Estrada MD Referring Provider Active Start: January 02, 2025 End: January 02, 2025 Goals (unrecognized section and content) Health Concern Goal Type Priority Status No Information Ordered Prescriptions (unrec ognized section and content) Prescription Sig Dispense Quantity Refills Last Filled Start Date End Date rivaroxaban (XARELTO) 10 mg tablet Take 1 tablet (10 mg total) by mouth 1 (one) time each day for 11 doses. Take with food. Finish xarelto through 01/31. After, start on Aspirin 81mg for 4 weeks as directed. 01/20/2025 5 aspirin 81 mg chewable tablet Chew 1 tablet (81 mg total) 2 (two) times a day for 4 weeks. Begin after finishing Xarelto prescription 01/31/2025 5 oxyCODONE (ROXICODONE) 5 mg immediate release tablet Take 1-2 tablets (5-10 mg total) by mouth every 4 (four) hours if needed for moderate pain or severe pain for up to 7 days. Max Daily Amount: 60 mg 40 tablet 01/16/2025 5 traMADoL (ULTRAM) 50 mg tablet Take 1-2 tablets (50-100 mg total) by mouth every 6 (six) hours if needed for moderate pain for up to 7 days. Max Daily Amount: 400 mg 40 tablet 01/16/2025 acetaminophen (TYLENOL) 500 mg tablet Take 2 tablets (1,000 mg total) by mouth 3 (three) times a day for 7 days. Do not exceed 3,000 mg daily limit. 50 tablet 01/16/2025 rivaroxaban (XARELTO) 10 mg tablet Take 1 tablet (10 mg total) by mouth 1 (one) time each day for 12 doses. Take with food. Finish xarelto through 01/31. After, start on Aspirin 81mg for 4 weeks as directed. 12 each 01/20/2025 rivaroxaban (XARELTO) 10 mg tablet Take 1 tablet (10 mg total) by mouth 1 (one) time each day for 11 doses. Take with food. Finish xarelto through 01/31. After, start on Aspirin 81mg for 4 weeks as directed. 11 each 01/20/2025 aspirin 81 mg chewable tablet Chew 1 tablet (81 mg total) 2 (two) times a day for 4 weeks. Begin after finishing Xarelto prescription 02/01/2025 enoxaparin (LOVENOX) 40 mg/0.4 mL syringe Inject 0.4 mL (40 mg total) under the skin 1 (one) time each day for 14 days. 14 each 01/16/2025 aspirin 81 mg chewable tablet Chew 1 tablet (81 mg total) 2 (two) times a day for 4 weeks. Begin after finishing Xarelto prescription 84 tablet 01/17/2025 Scheduled Active and Recently Administ ered Medications (unrecognized section and content) Medication Order 01/17/2025 01/18/2025 01/19/2025 acetaminophen (TYLENOL) tablet 1,000 mg 1,000 mg, oral, Every 6 hours scheduled, First dose on 01/16/25 at 1800, [facility] 0501 (Given - Provider: Paolo Cantu RN)1154 (Given - Provider: Blank Ramírez RN)1757 (Given - Provider: Blank Ramírez RN) 0021 (Given - Provider: Fozia Clark RN)0624 (Given - Provider: Fozia Clark RN)1232 (Given - Provider: Yessi Roche RN)1730 (Given - Provider: Raghav Maldonado RN) 0030 (Given - Provider: France Mccann RN)0634 (Given - Provider: France Mccann RN)1237 (Given - Provider: Kristopher Starkey RN)1748 (Not Given - Provider: Kristopher Starkey RN - Reason: Patient/Resident/Agent refused - education provided ) amLODIPine (NORVASC) tablet 2.5 mg 2.5 mg, oral, Nightly, First dose on Thu01/16/25 at 1715, Hold for SBP<110 or HR<60 2033 (Given - Provider: Fozia Clark RN) 2137 (Given - Provider: France Mccann RN) 2099 (Canceled Entry - Provider: Automatic Discharge Provider - Comment: Automatically canceled at discontinue of medication order) buPROPion SR (WELLBUTRIN SR) 12 hr tablet 150 mg 150 mg, oral, 2 times daily, First dose on Thu01/17/25 at 0900, Do not crush, chew, or split. 0913 (Given - Provider: Blank Ramírez RN)2034 (Given - Provider: Fozia Clark RN) 0908 (Given - Provider: Kristopher Starkey RN)2137 (Given - Provider: France Mccann RN) 0845 (Given - Provider: Kristopher Starkey RN)2099 (Canceled Entry - Provider: Automatic Discharge Provider - Comment: Automatically canceled at discontinue of medication order) carvediloL (COREG) tablet 12.5 mg 12.5 mg, oral, 2 times daily, First dose on Thu01/16/25 at 2100, Hold for SBP<110 or HR<60 0913 (Given - Provider: Blank Ramírez RN)2033 (Given - Provider: Fozia Clark RN) 0918 (Not Given - Provider: Kristopher Starkey RN - Reason: Order parameters not met)2138 (Given - Provider: France Mccann RN) 0845 (Given - Provider: Kristopher Starkey, RN)2099 (Canceled Entry - Provider: Automatic Discharge Provider - Comment: Automatically canceled at discontinue of medication order) ceFAZolin (ANCEF) 2 gram/20 mL IV syringe 2 g (COMPLETED) 2 g, intravenous, Administer over 3 Minutes, Every 8 hours, First dose on Thu01/16/25 at 2100, For 2 doses, Recovery & On Unit, Indication: Prophylaxis-Surgical 0502 (Given - Provider: Paolo Cantu RN) DULoxetine (CYMBALTA) DR capsule 60 mg 60 mg, oral, Daily, First dose on Thu01/17/25 at 0900, Do not crush or chew. 0913 (Given - Provider: Blank Ramírez RN) 0908 (Given - Provider: Kristopher Starkey, BRODERICK) 0847 (Given - Provider: Kristopher Starkey, RN) ezetimibe (ZETIA) tablet 10 mg 10 mg, oral, Daily, First dose on Thu01/17/25 at 0900 0913 (Given - Provider: Blank Ramírez RN) 0908 (Given - Provider: Kristopher Starkey, BRODERICK) 0845 (Given - Provider: Kristopher Starkey, BRODERICK) lamoTRIgine (LaMICtal) tablet 400 mg 400 mg, oral, Nightly, First dose on Thu01/16/25 at 2100 2033 (Given - Provider: Fozia Clark RN) 2137 (Given - Provider: France Mccann RN) 2099 (Canceled Entry - Provider: Automatic Discharge Provider - Comment: Automatically canceled at discontinue of medication order) lisinopriL (PRINIVIL,ZESTRIL) tablet 40 mg 40 mg, oral, Daily, First dose on Thu01/16/25 at 1715, Hold for SBP<110 or HR<60 0913 (Given - Provider: Blank Ramírez RN) 0919 (Not Given - Provider: Kristopher Starkey RN - Reason: Order parameters not met) 0845 (Given - Provider: Kristopher Starkey, BRODERICK) pantoprazole (PROTONIX) EC tablet 40 mg 40 mg, oral, Every morning before breakfast, First dose on Thu01/17/25 at 0700, Do not crush, chew, or split. 0920 (Given - Provider: Blank Ramírez RN) 0624 (Given - Provider: Fozia Clark, BRODERICK) 0645 (Given - Provider: France Mccann RN) perphenazine tablet 8 mg (CANCELED) 8 mg, oral, Daily, First dose on Thu01/17/25 at 0900 0913 (Given - Provider: Blank Ramírez RN) 1025 (Not Given - Provider: Kristopher Starkey RN - Reason: Other - Comment: patient takes at night) perphenazine tablet 8 mg 8 mg, oral, Daily, First dose (after last modification) on Thu01/18/25 at 2100 213 (Given - Provider: France Mccann RN) 2099 (Canceled Entry - Provider: Automatic Discharge Provider - Comment: Automatically canceled at discontinue of medication order) rivaroxaban (XARELTO) tablet 10 mg 10 mg, oral, Daily, First dose on Thu01/17/25 at 0900, For 35 doses, Phase II/On Unit, Indication: VTE/PE Prophylaxis 0913 (Given - Provider: Blank Ramírez RN) 0908 (Given - Provider: Kristopher Starkey RN) 0845 (Given - Provider: Kristopher Starkey RN) sodium chloride 0.9 % flush 10 mL(Linked Group 1) 10 mL, intravenous, 2 times daily, First dose on Thu01/16/25 at 2100, Recovery [facility] On Unit 09 (Not Given - Provider: Blank Ramírez RN - Reason: Loss of IV access)2034 (Not Given - Provider: Fozia Clark, BRODERICK - Reason: Loss of IV access) 102 (Not Given - Provider: Kristopher Starkey RN - Reason: Loss of IV access)2142 (Not Given - Provider: France Mccann RN - Reason: Loss of IV access) 0957 (Not Given - Provider: Kristopher Starkey RN - Reason: Loss of IV access)2100 (Canceled Entry - Provider: Automatic Discharge Provider - Comment: Automatically canceled at discontinue of medication order) tamsulosin (FLOMAX) 24 hr capsule 0.4 mg 0.4 mg, oral, Daily, First dose on Thu01/16/25 at 2100, For 166 days, For oral administration: capsules should be swallowed whole (Do not crush, chew, or open). For tube administration: open capsule and administer with water (granules should NOT be crushed). 2034 (Given - Provider: Fozia Clark RN) 2137 (Given - Provider: France Mccann RN) 2100 (Canceled Entry - Provider: Automatic Discharge Provider - Comment: Automatically canceled at discontinue of medication order) PRN Medication Order 01/17/2025 01/18/2025 01/19/2025 diphenhydrAMINE (BENADRYL) injection 25 mg 25 mg, intravenous, Every 6 hours PRN, itching, Starting on Thu01/16/25 at 1623 HYDROmorphone (DILAUDID) injection 0.5 mg 0.5 mg, intravenous, Every 3 hours PRN, severe pain, for severe, breakthrough pain only, Starting on Thu01/16/25 at 1651 melatonin tablet 6 mg 6 mg, oral, Nightly PRN, insomnia, Starting on Thu01/18/25 at 1556 ondansetron (PF) (ZOFRAN) injection 4 mg(Linked Group 2) 4 mg, intravenous, Every 8 hours PRN, vomiting, nausea, Starting on Thu01/16/25 at 1623, Recovery & On Unit, -ONLY give IV if patient is unable to take orally. -If inadequate response within 30 minutes, proceed to next-line agent or contact provider if no further options ordered. ondansetron ODT (ZOFRAN-ODT) disintegrating tablet 4 mg(Linked Group 2) 4 mg, oral, Every 8 hours PRN, vomiting, nausea, Starting on Thu01/16/25 at 1623, Recovery & On Unit, -Give IV if patient is unable to take orally. -If inadequate response within 30 minutes, proceed to next-line agent or contact provider if no further options ordered. For ODT tablets: -Do not remove from blister pack until just before administering. -Patient should allow tablet to dissolve on tongue. oxyCODONE (ROXICODONE) immediate release tablet 10 mg(Linked Group 3) 10 mg, oral, Every 4 hours PRN, severe pain, Starting on Thu01/16/25 at 1651 0501 (Given - Provider: Paolo Cantu, RN)1052 (Given - Provider: Emili Quigley RN)1829 (Given - Provider: Blank Ramírez, BRODERICK) 0209 (Given - Provider: Fozia Clark, BRODERICK)0628 (Given - Provider: Fozia Clark, BRODERICK)1237 (Given - Provider: Yessi Roche, RN)1730 (Given - Provider: Raghav Maldonado, RN)2147 (Given - Provider: France Mccann, RN) 0732 (Given for Pain - Provider: Young Cee RN)1205 (Given - Provider: Kristopher Starkey, RN)1714 (Given - Provider: Kristopher Starkey, RN) oxyCODONE (ROXICODONE) immediate release tablet 5 mg(Linked Group 3) 5 mg, oral, Every 4 hours PRN, moderate pain, Starting on Thu01/16/25 at 1651 0501 (See Alternative - Provider: Paolo Cantu RN)1052 (See Alternative - Provider: Emili Quigley RN)1829 (See Alternative - Provider: Blank Ramírez RN) 0209 (See Alternative - Provider: Fozia Clark, BRODERICK)0628 (See Alternative - Provider: Fozia Clark RN)1237 (See Alternative - Provider: Yessi Roche RN)1730 (See Alternative - Provider: Raghav Maldonado, BRODERICK)2147 (See Alternative - Provider: France Mccann, BRODERICK) 0732 (See Alternative - Provider: Young Cee RN)1205 (See Alternative - Provider: Kristopher Starkey, RN)1714 (See Alternative - Provider: Kristopher Starkey, RN) polyethylene glycol (MIRALAX) packet 17 g 17 g, oral, As needed, constipation, Starting on Thu01/16/25 at 1647, Dissolve in 240 mLs (8 ounces) of water or sports drink prior to giving. sodium chloride 0.9 % flush 10 mL(Linked Group 1) 10 mL, intravenous, As needed, line care, Starting on Thu01/16/25 at 1623, Recovery & On Unit Linked Groups Order Group 1: Insert peripheral IV (CANCELED) STAT, Once, On Thu01/16/25 at 1624, For 1 occurrence, Recovery & On Unit And Maintain IV access (CANCELED) Until discontinued, Starting on Thu01/16/25 at 1624, Until Specified, Recovery & On Unit And Saline lock IV (CANCELED) Routine, Once, On Thu01/16/25 at 1624, For 1 occurrence, When tolerating PO fluids, Recovery & On Unit And sodium chloride 0.9 % flush 10 mLJump to med 10 mL, intravenous, 2 times daily, First dose on Thu01/16/25 at 2100, Recovery & On Unit And sodium chloride 0.9 % flush 10 mLJump to med 10 mL, intravenous, As needed, line care, Starting on Thu01/16/25 at 1623, Recovery & On Unit Group 2: ondansetron ODT (ZOFRAN-ODT) disintegrating tablet 4 mgJump to med 4 mg, oral, Every 8 hours PRN, vomiting, nausea, Starting on Thu01/16/25 at 1623, Recovery & On Unit, -Give IV if patient is unable to take orally. -If inadequate response within 30 minutes, proceed to next-line agent or contact provider if no further options ordered. For ODT tablets: -Do not remove from blister pack until just before administering. -Patient should allow tablet to dissolve on tongue. Or ondansetron (PF) (ZOFRAN) injection 4 mgJump to med 4 mg, intravenous, Every 8 hours PRN, vomiting, nausea, Starting on Thu01/16/25 at 1623, Recovery & On Unit, -ONLY give IV if patient is unable to take orally. -If inadequate response within 30 minutes, proceed to next-line agent or contact provider if no further options ordered. Group 3: oxyCODONE (ROXICODONE) immediate release tablet 5 mgJump to med 5 mg, oral, Every 4 hours PRN, moderate pain, Starting on Thu01/16/25 at 1651 Or oxyCODONE (ROXICODONE) immediate release tablet 10 mgJump to med 10 mg, oral, Every 4 hours PRN, severe pain, Starting on Thu01/16/25 at 1651 FOR RECORDS PERTAINING TO PATIENTS WHO ARE [...] BE BASED ON THE PRIMARY CLINICAL RECORDS. [facility] [employer] [facility]. provides no warranty or guarantee of the accuracy or completeness of information in this document.
== END | disposition home or self-care (01) ==
PROVIDERS: PCP Family Medicine; Referring Provider Family Medicine; Visit Provider Family Medicine
DX: R06.02 Shortness of breath (principal)
CPT/HCPCS: 71250